=== PATIENT | male | born 1950 | race African-American/Black ===

== ENCOUNTER 2016-12-26 23:51 | Inpatient (IN) | payer MEDICARE, MEDICAID ==
[~2016-12-26] VITALS: Ht 182.9 cm; Wt 59.0 kg
[~2016-12-26 23:51] MED LIST: ACETAMINOPHEN-1 EAC1 ORAL; ACYCLOVIR800 MG ORAL; ADVAIR 250-501 EACH INH; ALBUTEROL SULF8.5 GM INH; AMBIEN10 MG ORAL; AMLODIPINE BESY10 MG ORAL; ASPIRIN BUFFER325 M1 ORAL; ASPIRIN EC325 MG ORAL; ASPIRIN EC81 MG ORAL; ASPIRIN325 MG ORAL; ASPIRIN81 M1 PO; ASPIRIN81 MG ORAL; ATORVASTATIN CA40 MG ORAL; BENICAR HCT 401 EACH ORAL; CARAFATE1 G1 ORAL; CEFEPIME-D1 GM/50 ML IVPB; COLACE100 MG ORAL; DILAUDID2 MG ORAL; DILAUDID4 MG ORAL; DOCUSATE SODIU100 MG ORAL; FEOSOL325 MG ORAL; FERROUS SULFAT325 MG ORAL; FOLIC ACID1 MG ORAL; IMDUR30 MG ORAL; IMDUR60 MG ORAL; INDOCIN25 MG ORAL; KEPPRA500 MG ORAL; LASIX20 M1 ORAL; LEVAQUIN500 MG ORAL; LEVOTHYROXINE25 MCG ORAL; LIPITOR20 MG ORAL; LIPITOR40 MG ORAL; LISINOPRIL40 MG ORAL; LYRICA25 MG ORAL; MEDROL DOSEPAK4 MG ORAL; MEDROL4 MG ORAL; METOPROLOL TART50 M1 ORAL; METOPROLOL TART50 MG ORAL; METRONIDAZOLE500 MG ORAL; MIRALAX17 G2 ORAL; MUCINEX600 MG ORAL; NORCO 5-325 TA1 EACH ORAL; NORVASC10 MG ORAL; OMEPRAZOLE20 M2 ORAL; OMEPRAZOLE20 M3 ORAL; OMEPRAZOLE40 MG ORAL; PLAVIX75 MG ORAL; PRAVASTATIN SOD20 M1 ORAL; PREDNISOLO15 MG/5 M1 ORAL; PREDNISONE10 M2 PO; PREDNISONE20 M1 PO; PREDNISONE20 MG ORAL; PROAIR HFA8.5 GM INH; PROMETHAZINE-C118 M1 ORAL; PROTONIX40 MG ORAL; RANITIDINE HCL150 MG ORAL; RESTORIL30 MG ORAL; SPIRIVA18 MCG INH; SUCRALFATE1 GM/10 ML ORAL; TRAMADOL HCL50 MG ORAL; VANCOMYCIN1 GM/2502 IVPB; ZITHROMAX500 M1 IVPB; ZOFRAN4 MG ORAL
[2016-12-27] VITALS (8 sets, daily range): BP systolic 134–159; BP diastolic 74–92
[2016-12-27 00:27] LABS: BASOPHILS % (AUTO) 3.2 % (0.0-2.0); EOSINOPHILS % (AUTO) 0.2 % (0.0-3.0); LYMPHOCYTES % (AUTO) 22.4 % (20.0-45.0); MEAN CORPUSCULAR VOLUME 88 FL (80-99); MEAN PLATELET VOLUME 7.8 FL (6.5-10.1); MONOCYTES % (AUTO) 17.9 % (1.0-10.0); NEUTROPHILS % (AUTO) 56.3 % (45.0-75.0); PLATELET COUNT 162 K/UL (150-450); RED BLOOD COUNT 3.91 M/UL (4.70-6.10); RED CELL DISTRIBUTION WIDTH 16.3 % (11.6-14.8); WHITE BLOOD COUNT 7.8 K/UL (4.8-10.8)
[2016-12-27 00:43] LABS: TROPONIN I < 0.30 ng/mL (<=0.30)
[2016-12-27] MEDS ORDERED: Ipratropium 0.02% Inh Soln 2.5ml UD HHN ONE ×2 (00:45)
[2016-12-27] MEDS ORDERED: Solu-MEDROL 125mg Inj IVP ONE (00:45)
[2016-12-27] MEDS ORDERED: Albuterol ud Inhalation HHN ONE ×2 (00:45)
[2016-12-27 00:46] LABS: ALBUMIN/GLOBULIN RATIO 1.1 (1.0-2.7); CALCIUM 8.7 mg/dL (8.6-10.2); CREATININE 2.1 mg/dL (0.7-1.2); GLOMERULAR FILTRATION RATE 38.4 mL/min (>60); POTASSIUM 4.5 mEQ/L (3.4-4.9); TOTAL PROTEIN 7.3 g/dL (6.6-8.7)
--- NOTE | 2016-12-27 01:03 | Emergency Room Report ---
History of Present Illness General Chief Complaint: Dyspnea/Respdistress Source: Patient Present Illness HPI Patient presents with complaints of cough and shortness of breath He reports waking up at [facility] In the next day he knows he was discharged Still felt short of breath and presents to the ER Symptoms ongoing for the past 3 days increased cough congestion denies any headache or visual changes denies any vomiting or diarrhea Patient has a history of COPD And has had multiple admissions for same problem Allergies: Coded Allergies: EGG (Verified Allergy, Unknown, 09/22/15) MEPERIDINE (Verified Allergy, Unknown, 12/21/10) MORPHINE (Verified Allergy, Unknown, Shortness of Breath, 01/24/14) itching,shortness of breath,dyspnea NITROGLYCERIN (Verified Allergy, Unknown, 06/21/11) Patient History Past Medical History: see triage record Pertinent Family History: none Reviewed Nursing Documentation: PMH: Agreed, PSxH: Agreed Nursing Documentation-PMH Hx Cardiac Problems: Yes - ND 2009 and ND 2010 Hx Hypertension: Yes Hx Pacemaker: No Hx Asthma: No Hx COPD: Yes Hx Diabetes: No Hx Cancer: No Hx Gastrointestinal Problems: No - GI ulcer ,Hep C Hx Dialysis: No - kidney problems Hx Neurological Problems: No Hx Cerebrovascular Accident: No Hx Transient Ischemic Attacks: No Hx Alzheimer's Disease: No Hx Encephalitis: No Hx Seizures: Yes Hx Epilepsy: No Hx Multiple Sclerosis: No Hx Cerebral Palsy: No Hx Amyotrophic Lat Sclerosis: No Hx Guillian-Enterprise Syndrome: No Hx Paralysis: No Hx Peripheral Neuropathy: No Hx Spinal Cord Injury: No Hx Head Trauma: No Hx Traumatic Brain Injury: No Hx Memory Loss: No Hx Concentration Difficulty: No Hx Speech Problem: No Hx Tremors: Yes Hx Vertigo: No Hx Dizziness: No Hx Syncope: Yes Hx Headaches: No Hx Aphasia: No Hx Dysphasia: No Hx Numbness: No Hx Weakness: Yes Hx Fatigue: No Hx Neurologic Surgery: No Hx Brain Shunt: No Review of Systems All Other Systems: negative except mentioned in HPI Physical Exam Vital Signs Date Time Temp Pulse Resp B/P Pulse Ox O2 Delivery O2 Flow Rate FiO2 12/27/16 00:02 97.7 127 24 158/78 90 Room Air Sp02 EP Interpretation: reviewed, normal General Appearance: mild distress - Appears short of breath Head: normocephalic, atraumatic Eyes: bilateral eye EOMI, bilateral eye PERRL ENT: hearing grossly normal, normal pharynx, TMs + canals normal, uvula midline Neck: full range of motion, supple, no meningismus, no bony tend Respiratory: no respiratory distress, no retraction, no accessory muscle use, wheezing - Wheezing and crackles diffusely Cardiovascular #1: normal peripheral pulses, regular rate, rhythm, no edema, no gallop, no JVD, no murmur Gastrointestinal: normal bowel sounds, non tender, soft, no mass, no organomegaly, non-distended, no guarding, no hernia, no pulsatile mass, no rebound Genitourinary: no CVA tenderness Musculoskeletal: normal inspection Neurologic: oriented x3, responsive, miner III-XII nml as tested, motor strength/ tone normal, sensory intact Psychiatric: mood/affect normal Skin: normal color, no rash, warm/dry, palpation normal Lymphatic: normal inspection, no adenopathy Procedures Critical Care Time Critical Care Time 40 minutes for initial critical presentation Respiratory distress requiring multiple re\re evaluations not including any procedural time Medical Decision Making Diagnostic Impression: Primary Impression: Dyspnea Additional Impression: Respiratory distress ER Course Patient is a fairly complex patient with multiple differential to consideration including but not limited to cardiac cardiopulmonary and vascular emergencies Patient required multiple breathing treatments in the emergency room given the severity of the presentation also was given magnesium and steroids patient has done better stabilize for telemetry admission Labs Test 12/27/16 00:00 White Blood Count 7.8 K/UL (4.8-10.8) Red Blood Count 3.91 M/UL (4.70-6.10) Hemoglobin 11.3 G/DL (14.2-18.0) Hematocrit 34.4 % (42.0-52.0) Mean Corpuscular Volume 88 FL (80-99) Mean Corpuscular Hemoglobin 29.0 PG (27.0-31.0) Mean Corpuscular Hemoglobin Concent 33.0 G/DL (32.0-36.0) Red Cell Distribution Width 16.3 % (11.6-14.8) Platelet Count 162 K/UL (150-450) Mean Platelet Volume 7.8 FL (6.5-10.1) Neutrophils (%) (Auto) 56.3 % (45.0-75.0) Lymphocytes (%) (Auto) 22.4 % (20.0-45.0) Monocytes (%) (Auto) 17.9 % (1.0-10.0) Eosinophils (%) (Auto) 0.2 % (0.0-3.0) Basophils (%) (Auto) 3.2 % (0.0-2.0) Sodium Level 136 mEQ/L (135-145) Potassium Level 4.5 mEQ/L (3.4-4.9) Chloride Level 97 mEQ/L (98-107) Carbon Dioxide Level 25 mEQ/L (20-30) Anion Gap 14 (5-15) Blood Urea Nitrogen 41 mg/dL (7-23) Creatinine 2.1 mg/dL (0.7-1.2) Estimat Glomerular Filtration Rate 38.4 mL/min (>60) Glucose Level 101 mg/dL (74-106) Lactic Acid Level 1.30 mmol/L (0.66-2.22) Calcium Level 8.7 mg/dL (8.6-10.2) Total Bilirubin 0.2 mg/dL (0.0-1.2) Aspartate Amino Transf (AST/SGOT) 23 U/L (5-40) Alanine Aminotransferase (ALT/SGPT) 15 U/L (3-41) Alkaline Phosphatase 92 U/L (40-129) Total Creatine Kinase 157 U/L (38-174) Creatine Kinase MB 8.3 ng/mL (< 6.7) Creatine Kinase MB Relative Index 5.2 Troponin I < 0.30 ng/mL (<=0.30) Pro-B-Type Natriuretic Peptide 928 pg/mL (0-125) Total Protein 7.3 g/dL (6.6-8.7) Albumin 3.9 g/dL (3.5-5.2) Globulin 3.4 g/dL Albumin/Globulin Ratio 1.1 (1.0-2.7) Lipase 15 U/L (< 60) Rhythm Strip Diag. Results EP Interpretation: yes Rate: 88 Rhythm: NSR, no PVC's, no ectopy Chest X-Ray Diagnostic Results EP Interpretation: Yes Findings: no consolidation, no effusion, no pneumothorax, no acute cardiopulmonary disease - COPD Number of Views: 1 Last Vital Signs Date Time Temp Pulse Resp B/P Pulse Ox O2 Delivery O2 Flow Rate FiO2 12/27/16 00:52 118 18 99 Room Air 12/27/16 00:03 97.7 159/74 Status: improved Disposition: ADMITTED INPATIENT Condition: Serious Referrals: CHUY VIRGEN (PCP) JUD HAHN D.O. Dec 27, 2016 01:03
[2016-12-27 01:25] LABS: CKMB 8.3 ng/mL (< 6.7)
[2016-12-27] MEDS ORDERED: ATORVASTATIN CA10 MG ORAL (02:08)
[2016-12-27] MEDS ORDERED: Ketorolac 30mg Inj IV PRN (06:45)
[2016-12-27] MEDS ORDERED: Morphine Sulfate 2mg/ml Inj IVP PRN (06:45)
[2016-12-27] MEDS ORDERED: LORazepam Inj 2mg/ml 1ml IV PRN (06:45)
[2016-12-27] MEDS ORDERED: Nitroglycerin Subl 0.4mg tab (Bottle Of 25) SL PRN (06:45)
[2016-12-27] MEDS ORDERED: HYDROmorphone 2 MG in NS 50 ML IVPB PRN (07:00)
[2016-12-27] MEDS: Levothyroxine 25mcg tab ORAL SCH (07:51)
[2016-12-27] MEDS: Zoysn 3.37gm in D5W 110ml IVPB SCH ×2 (09:00→17:21)
[2016-12-27] MEDS: Theophylline ER 100mg ORAL SCH ×2 (09:20→22:57)
[2016-12-27] MEDS: Heparin 5000 units/ml inj SUBQ SCH ×2 (09:21→22:59)
--- NOTE | 2016-12-27 10:20 | Diagnostic Imaging Report ---
Indication: SOB Technique: One view of the chest Comparison: 10/28/2016 Findings: Lungs are hyperinflated. Lungs and pleural spaces are clear. Heart size is normal. Prior CABG. No significant interim change Impression: COPD No acute process
[2016-12-27] MEDS ORDERED: NovoLOG Insulin Flexpen SUBQ SCH (11:30)
[2016-12-27] MEDS ORDERED: Solu-MEDROL 125mg Inj IV SCH (12:00)
--- NOTE | 2016-12-27 13:04 | History and Physical ---
History of Present Illness General Date patient seen: Dec 27, 2016 Time patient seen: 10:30 Reason for Hospitalization: Dyspnea/Respdistress Present Illness HPI 66 y/old male with multiple medical comorbidities, inclduign COPD, asthma, CAD, hx of SC x 2 presented with complaints of cough and shortness of breath called paramedics and they brought him to [facility] hospital Patient reported waking up at [facility] per patient , the next day he was discharged, no treatment was rendered to him and he was not feeling any better Patient was still having SOB, chest tightness and presented to [facility] for evaluation Symptoms ongoing for the past 3 days, increased cough , congestion , some wheezing, no hemoptysis, minimally productive cough denies chest pain, palpitations, dizziness denies any headache or visual changes denies any vomiting or diarrhea Allergies: Coded Allergies: EGG (Verified Allergy, Unknown, 09/22/15) MEPERIDINE (Verified Allergy, Unknown, 12/21/10) MORPHINE (Verified Allergy, Unknown, Shortness of Breath, 01/24/14) itching,shortness of breath,dyspnea NITROGLYCERIN (Verified Allergy, Unknown, 06/21/11) Medication History Scheduled Albuterol Sulfate* (Proair Hfa*), 1 PUFF INH Q6H Amlodipine Besylate* (Amlodipine Besylate*), 10 MG ORAL DAILY, (Reported) Aspirin* (Aspirin Ec*), 325 MG ORAL DAILY, (Reported) Atorvastatin Calcium* (Lipitor*), 20 MG ORAL DAILY, (Reported) Clopidogrel Bisulfate* (Plavix*), 75 MG ORAL DAILY, (Reported) Docusate Sodium* (Colace*), 100 MG ORAL TWICE A DAY, (Reported) Ferrous Sulfate* (Ferrous Sulfate*), 325 MG ORAL TWICE A DAY, (Reported) Levetiracetam (Keppra), 500 MG ORAL FOUR TIMES A DAY, (Reported) Levothyroxine Sodium* (Levothyroxine Sodium*), 25 MCG ORAL DAILY, (Reported) Metoprolol Tartrate* (Metoprolol Tartrate*), 50 MG ORAL BID, (Reported) Omeprazole (Omeprazole), 20 MG ORAL DAILY, (Reported) Prednisone (Prednisone), 30 MG PO BID, (Reported) Ranitidine Hcl* (Zantac*), 150 MG ORAL Q12HR Temazepam (Restoril*), 30 MG ORAL BEDTIME, (Reported) Scheduled PRN Acetaminophen With Codeine (T#3) (Tylenol #3 Tab*), 1 TAB ORAL Q6H PRN Hydromorphone HCl (Dilaudid), 1 MG ORAL EVERY 6 HOURS PRN Discontinued Medications Acyclovir* (Zovirax*), 800 MG ORAL FIVE TIMES A DAY Discontinued Reason: Therapy completed Atorvastatin Calcium* (Atorvastatin Calcium*), 40 MG ORAL BEDTIME Discontinued Reason: Medication dose changed Atorvastatin Calcium* (Lipitor*), 20 MG ORAL BEDTIME, (Reported) Discontinued Reason: Medication dose changed Azithromycin (Zithromax), 500 MG IVPB DAILY Discontinued Reason: Therapy completed Clopidogrel Bisulfate* (Plavix*), 75 MG ORAL DAILY, (Reported) Discontinued Reason: Medication dose changed Codeine/Promethazine Hcl* (Promethazine-Codeine Syrup*), 5 ML ORAL Q4H PRN for For Cough Discontinued Reason: Pt stopped taking med Indomethacin (Indomethacin), 25 MG ORAL THREE TIMES A DAY Discontinued Reason: Pt stopped taking med Methylprednisolone* (Medrol*), 4 MG ORAL DAILY Discontinued Reason: Pt stopped taking med Ondansetron (Zofran), 4 MG ORAL Q8H PRN for Nausea & Vomiting, (Reported) Discontinued Reason: Pt stopped taking med Pantoprazole* (Protonix*), 40 MG ORAL DAILY, (Reported) Discontinued Reason: Pt stopped taking med Polyethylene Glycol 3350* (Miralax*), 17 GM ORAL HSPRN PRN for Constipation Discontinued Reason: Pt stopped taking med Prednisone* (Prednisone*), 10 MG ORAL DAILY, (Reported) Discontinued Reason: Medication dose changed Pregabalin (Lyrica), 25 MG ORAL THREE TIMES A DAY Discontinued Reason: Pt stopped taking med Sucralfate* (Carafate*), 1 GM ORAL BIAC Discontinued Reason: Pt stopped taking med Patient History History Provided By: Patient Healthcare decision maker Resuscitation status Full Code Advanced Directive on File Past Medical/Surgical History Past Medical/Surgical History: (1) ACS (acute coronary syndrome) (2) Syncope (3) CAD (coronary artery disease) (4) Osteomyelitis of right leg (5) Intractable back pain (6) Hyperkalemia (7) Hypothyroidism (8) ATN (acute tubular necrosis) (9) HTN (hypertension) (10) COPD exacerbation (11) Nonhealing ulcer of right lower extremity (12) Gastritis (13) Shingles (14) DM (diabetes mellitus) (15) HTN (hypertension) (16) Dyspnea (17) COPD exacerbation Review of Systems Constitutional: Reports: weakness Eye: Reports: no symptoms ENT: Reports: no symptoms Respiratory: Reports: see HPI Cardiovascular: Reports: other - HTN, CAD, hx of SC x 2 , see HPI Gastrointestinal: Reports: other - gastritis Genitourinary: Reports: no symptoms Musculoskeletal: Reports: back pain Skin: Reports: other - R leg ulcer Psychiatric: Reports: no symptoms Neurological: Reports: seizure Endocrine: Reports: other - DM Hematologic/Lymphatic: Reports: anemia Physical Exam General Appearance: no apparent distress, alert Lines, tubes and drains: peripheral HEENT: normocephalic, atraumatic, anicteric, mucous membranes moist Neck: non-tender, normal alignment, supple Respiratory/Chest: no accessory muscle use, decreased breath sounds - with overall coarse BS quality Cardiovascular/Chest: normal rate, regular rhythm, no JVD Abdomen: normal bowel sounds, soft Extremities: normal range of motion, non-tender, no calf tenderness, normal capillary refill Skin Exam: warm/dry Neurologic: alert, oriented x 3, responsive Musculoskeletal: atrophy - BLE Last 24 Hour Vital Signs Date Time Temp Pulse Resp B/P Pulse Ox O2 Delivery O2 Flow Rate FiO2 12/27/16 09:20 109 146/83 12/27/16 08:15 98.5 12/27/16 08:00 97.0 109 18 146/83 96 Nasal Cannula 12/27/16 08:00 119 12/27/16 04:18 98.5 110 19 147/80 97 Nasal Cannula 12/27/16 04:00 118 12/27/16 02:49 98.7 114 20 146/76 94 Room Air 12/27/16 02:21 97.7 120 18 148/84 91 Room Air 12/27/16 02:00 97.7 120 18 148/84 91 Room Air 12/27/16 01:23 115 18 99 Room Air 12/27/16 00:52 118 18 99 Room Air 12/27/16 00:52 118 18 99 Room Air 12/27/16 00:10 123 18 90 Room Air 12/27/16 00:09 123 18 Room Air 12/27/16 00:03 125 24 Room Air 12/27/16 00:03 97.7 125 24 159/74 90 Room Air 12/27/16 00:02 97.7 127 24 158/78 90 Room Air Intake and Output 12/26/16 12/27/16 19:00 07:00 Intake Total 200 ml Balance 200 ml Intake Oral 0 ml IV Total 200 ml # Voids 2 Laboratory Tests Test 12/27/16 00:00 White Blood Count 7.8 K/UL (4.8-10.8) Red Blood Count 3.91 M/UL (4.70-6.10) L Hemoglobin 11.3 G/DL (14.2-18.0) L Hematocrit 34.4 % (42.0-52.0) L Mean Corpuscular Volume 88 FL (80-99) Mean Corpuscular Hemoglobin 29.0 PG (27.0-31.0) Mean Corpuscular Hemoglobin Concent 33.0 G/DL (32.0-36.0) Red Cell Distribution Width 16.3 % (11.6-14.8) H Platelet Count 162 K/UL (150-450) Mean Platelet Volume 7.8 FL (6.5-10.1) Neutrophils (%) (Auto) 56.3 % (45.0-75.0) Lymphocytes (%) (Auto) 22.4 % (20.0-45.0) Monocytes (%) (Auto) 17.9 % (1.0-10.0) H Eosinophils (%) (Auto) 0.2 % (0.0-3.0) Basophils (%) (Auto) 3.2 % (0.0-2.0) H Sodium Level 136 mEQ/L (135-145) Potassium Level 4.5 mEQ/L (3.4-4.9) Chloride Level 97 mEQ/L (98-107) L Carbon Dioxide Level 25 mEQ/L (20-30) Anion Gap 14 (5-15) Blood Urea Nitrogen 41 mg/dL (7-23) H Creatinine 2.1 mg/dL (0.7-1.2) H Estimat Glomerular Filtration Rate 38.4 mL/min (>60) Glucose Level 101 mg/dL (74-106) Lactic Acid Level 1.30 mmol/L (0.66-2.22) Calcium Level 8.7 mg/dL (8.6-10.2) Total Bilirubin 0.2 mg/dL (0.0-1.2) Aspartate Amino Transf (AST/SGOT) 23 U/L (5-40) Alanine Aminotransferase (ALT/SGPT) 15 U/L (3-41) Alkaline Phosphatase 92 U/L (40-129) Total Creatine Kinase 157 U/L (38-174) Creatine Kinase MB 8.3 ng/mL (< 6.7) H Creatine Kinase MB Relative Index 5.2 Troponin I < 0.30 ng/mL (<=0.30) Pro-B-Type Natriuretic Peptide 928 pg/mL (0-125) H Total Protein 7.3 g/dL (6.6-8.7) Albumin 3.9 g/dL (3.5-5.2) Globulin 3.4 g/dL Albumin/Globulin Ratio 1.1 (1.0-2.7) Lipase 15 U/L (< 60) Height (Feet): 6 Height (Inches): 0.00 Weight (Pounds): 130 Medications Current Medications Medications (Trade) Dose Ordered Sig/Aminata Route PRN Reason Start Time Stop Time Status Last Admin Dose Admin Albuterol/ Ipratropium (DuoNeb 0.5-3(2.5)mg/3ml) 3 ml Q4H PRN HHN dyspnea 12/27/16 06:45 01/01/17 06:44 Amlodipine Besylate (Norvasc) 10 mg DAILY ORAL 12/27/16 09:00 01/26/17 08:59 12/27/16 09:20 Atorvastatin Calcium (Lipitor) 20 mg BEDTIME ORAL 12/27/16 21:00 01/26/17 20:59 Clopidogrel Bisulfate (Plavix) 75 mg DAILY ORAL 12/27/16 09:00 01/26/17 08:59 12/27/16 09:20 Dextrose STAT PRN IV Hypoglycemia 12/27/16 06:45 01/26/17 06:44 Heparin Sodium (Porcine) (Heparin 5000 units/ml) 5,000 units EVERY 12 HOURS SUBQ 12/27/16 09:00 01/26/17 08:59 12/27/16 09:21 Hydromorphone HCl 2 mg/Sodium Chloride 51 ml @ 200 mls/hr EVERY 3 HOURS PRN IVPB pain 7-10 12/27/16 07:00 01/03/17 06:59 12/27/16 07:41 Ketorolac Tromethamine (Toradol 30mg) 15 mg Q6H PRN IV moderate pain 4-6 12/27/16 06:45 01/01/17 06:44 12/27/16 12:25 Levetiracetam (Keppra) 500 mg FOUR TIMES A DAY ORAL 12/27/16 09:00 01/26/17 08:59 12/27/16 12:24 Levothyroxine Sodium (Synthroid) 25 mcg ACBREAKFAST ORAL 12/27/16 06:52 01/26/17 06:51 12/27/16 07:51 Lorazepam (Ativan 2mg/ml 1ml) 0.5 mg Q4H PRN IV For Anxiety 12/27/16 06:45 01/03/17 06:44 Methylprednisolone Sodium Succinate (Solu-MEDROL) 60 mg EVERY 6 HOURS IV 12/27/16 12:00 01/26/17 11:59 12/27/16 12:24 Ondansetron HCl (Zofran) 4 mg Q6H PRN IVP Nausea & Vomiting 12/27/16 06:45 01/26/17 06:44 Piperacillin Sod/ Tazobactam Sod/ Dextrose (Zosyn/D5W) 110 ml @ 27.5 mls/hr Q8H IVPB 12/27/16 09:00 01/03/17 08:59 12/27/16 09:00 Temazepam (Restoril) 15 mg HSPRN PRN ORAL Insomnia 12/27/16 06:45 01/03/17 06:44 Theophylline (Wilfrido-Dur) 100 mg EVERY 12 HOURS ORAL 12/27/16 09:00 01/26/17 08:59 12/27/16 09:20 Assessment/Plan Assessment/Plan ASSESSMENT acute COPD exacerbation dyspnea respiratory distress COPD CAD with hx of SC x 2 HTN acute kidney injury on CRI DM hx of osteomyelitis R leg, s/p treatment seizure disorder hypothyroidism chronic back pain PLAN OF CARE O2 to keep sat above 92% pulmonary toilet IV steroids and taper as permitted sputum cx empiric abx fup with CXR initial CXR no acute cardiopulmonary disease, but c/w hyperinflation start Theophylline antitussive prn ( Phenergan with codeine ok, tolerated in the past despite allergy) continue Plavix and statin BP management with CCB and optimize as needed BS management with SS of insulin and optimize as needed seizure precautions, continue Keppra monitor renal parameters start IVF, acute component likely due to dehydration, check renal parametrs and lytes in am, renal US done in October with normal kidney echogenicity DVT, GI prophylaxis pain management bowel regimen PT/OT transfer to [facility] floor case discussed and evaluated by supervising physician Wayne (Jagdish),Kristine IZAGUIRRE Dec 27, 2016 13:04
--- NOTE | 2016-12-27 13:56 | Consultation ---
Consult Note Consult Note aske dto evaluate for renal failure- Chief Complaint: Dyspnea/Respdistress Patient presents with complaints of cough and shortness of breath He reports waking up at [facility] In the next day he knows he was discharged Still felt short of breath and presents to the ER Symptoms ongoing for the past 3 days increased cough congestion denies any headache or visual changes denies any vomiting or diarrhea Patient has a history of COPD And has had multiple admissions for same problem Allergies: EGG (Verified Allergy, Unknown, 09/22/15) MEPERIDINE (Verified Allergy, Unknown, 12/21/10) MORPHINE (Verified Allergy, Unknown, Shortness of Breath, 01/24/14) itching,shortness of breath,dyspnea NITROGLYCERIN (Verified Allergy, Unknown, 06/21/11) Hx Cardiac Problems: Yes - SD 2009 and SD 2010 Hx Hypertension: Yes Hx COPD: Yes Hx Gastrointestinal Problems: No - GI ulcer ,Hep C Hx Seizures: Yes Hx Tremors: Yes Hx Syncope: Yes Hx Weakness: Yes . Assessment/Plan status: - ATN (acute tubular necrosis), multifactorial Mainly DM and HTN - CAD with SD previously - SZ Disorder - COPD exacerbation - Hypothyroidism - Gastritis - ACS (acute coronary syndrome) - HTN (hypertension) - Nonhealing ulcer of right lower extremity - Osteomyelitis of right lower extremity Plan: Hydrate- UA and Urine studies- Avoid Nephrotoxics Taper steroids as possible- monitor renal parameters- KACEY BERNSTEIN Dec 27, 2016 13:56
[2016-12-27] MEDS ORDERED: Piperacillin/Tazobactam 2.25 GM in D5W 55 ML IV SCH (14:00)
[2016-12-27] MEDS ORDERED: Potassium Chloride 10 MEQ in NS 1000ml 1,000 ML IV SCH (15:00)
--- NOTE | 2016-12-27 16:35 | Wound Care Consultation ---
Wound Assessment Wound Assessment : Wound Present on Admission: Yes New Wound: No Status Change of Wound: No Wound Location Body Site Modif: right Wound Location Body Site: malleolus/ankle Wound Type: traumatic injury - chronic wound Rolando Test: Does not Rolando Wound Thickness: Full Thickness Wound Length: 4.0 Wound Width: 3.5 Wound Depth: 0.3 Percent of Wound [place]/Red: 100 Wound Drainage Description: Serosanguineous Wound Drainage Amount: Scant Wound Drainage Odor: None/Absent Tissue Surrounding Wound: Macerated Wound General Appearance: Reddened, Well Approximated, Draining, Bone Palpable Wound Comment #1 Right malleolus traumatic chronic wound. pt stated he fall and got injured. The wound wouldn't heal since. Recommendation -Cleanse with saline, pat dry, apply hydrogel, apply calcium alginate, cover with 4x4, wrap with kerlix daily and PRN soiled/dislodged -Keep clean and dry -Turn and reposition -Offload both heels -Optimize nutrition -Assess and f/u for any changes ASHELY TAN RN Dec 27, 2016 16:35
--- NOTE | 2016-12-27 19:26 | Consultation ---
Consult Note Assessment/Plan ID Dic # [id number] ASSESSMENT: 66 y/o male with: // COPD exacerbation / // h/o chronic non-healing lateral RLE ulcer, not grossly infected - - MRI 10/30: No evidence of acute osteomyelitis. Multiple bone infarcts. Post fracture deformity of the distal tibia and fibula. 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 TTE EF 60-65%, grade 1 diastolic dysfunction, mod pHTN, trace MR, mild TR PAD CKD DM Seizure disorder. COPD. CVA MDRO colonized No ABX allergies Full Code PLAN: - cont Levaquin d# 1 / 5 and DC Zosyn - monitor CBC, temperatures - monitor BMP - monitor CXR - monitor cx ( SP, Ur ) - wound care LOY REID M.D. Dec 27, 2016 19:26
[2016-12-27] MEDS: Atorvastatin 20mg tab ORAL SCH (22:57)
[2016-12-28] VITALS (7 sets, daily range): BP systolic 120–170; BP diastolic 74–93
--- NOTE | 2016-12-28 04:27 | Consultation ---
DATE OF CONSULTATION: INFECTIOUS DISEASE CONSULTATION CONSULTING PHYSICIAN: Reuben Reich M.D. REFERRING PHYSICIAN: Jessie Magana M.D. REASON FOR CONSULTATION: Evaluation of the patient for pneumonia secondary to exacerbation. HISTORY OF PRESENT ILLNESS: The patient is a 66-year-old male with multiple medical problems as listed below, who was admitted to this medical center due to shortness of breath. The patient has been admitted with the impression of COPD versus pneumonia. An Infectious Disease consultation has been requested for further evaluation of the patient and antibiotic management. PAST MEDICAL HISTORY: 1. History of COPD exacerbation. 2. History of chronic right lower extremity ulcer. 3. History of chronic hepatitis C. 4. History of CAD, status post CABG. 5. Peripheral artery disease. 6. CKD. 7. Diabetes. 8. Seizure disorder. 9. COPD. 10. CVA. MEDICATIONS: Solu-Medrol and Zosyn. ALLERGIES: Egg, meperidine, morphine, and nitroglycerin. FAMILY HISTORY: Noncontributory. REVIEW OF SYSTEMS: A 10-point review was done and except what is mentioned has been negative. PHYSICAL EXAMINATION: VITAL SIGNS: Temperature 97.4 degrees, blood pressure 166/92, pulse 86, and respiratory rate 18. HEENT: Mild pale conjunctivae. No icterus. NECK: No lymphadenopathy. CHEST: Coarse breathing sounds. Mild bilateral wheezes appreciable at bases of both lungs. HEART: S1 and S2. ABDOMEN: Soft. EXTREMITIES: The patient has right lateral lower extremity/ankle wound. No evidence of infection or drainage. NEUROLOGIC: Awake and alert. LABORATORY DATA: White blood cells 7.8, hemoglobin 11.3, and platelets 162,000. BUN 41 and creatinine 2.1. ALT 15, alkaline phosphatase 92, and AST 23. Chest x-ray, no acute process. ASSESSMENT: The patient is a 66-year-old male with multiple medical problems, who has been admitted to this facility due to chronic obstructive pulmonary disease exacerbation versus bronchitis. The patient also much more anxious. No evidence of infection. The patient's prior MRI has been indicative for osteomyelitis. PLAN: 1. We will change Zosyn to Levaquin for a total of five days. 2. Monitor CBC. 3. Monitor BMP. 4. Monitor chest x-ray. 5. Monitor cultures. 6. Based on the patient's clinical course and laboratories, we will do further recommendation. Thank you, Dr. Magana, for allowing me to participate in the care of this patient. I will follow the patient with you during this hospitalization. Reuben Reich M.D. DR: RIANNA JOB#: [id number] CC:
[2016-12-28] MEDS ORDERED: Solu-MEDROL 125mg Inj IV SCH (06:00)
[2016-12-28] MEDS: Levothyroxine 25mcg tab ORAL SCH (06:47)
--- NOTE | 2016-12-28 07:30 | Infectious Diseases Prog Note ---
Assessment/Plan Assessment/Plan ASSESSMENT: 66 y/o male with: // COPD exacerbation - CXR: COPD. No acute process // h/o chronic non-healing lateral RLE ulcer, not grossly infected - MRI 10/30: No evidence of acute osteomyelitis. Multiple bone infarcts. Post fracture deformity of the distal tibia and fibula. 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 TTE EF 60-65%, grade 1 diastolic dysfunction, mod pHTN, trace MR, mild TR PAD DM Seizure disorder. COPD. CVA MDRO colonized No ABX allergies Full Code PLAN: - ok to DC on PO Levaquin d# 2 / 5 from ID standpoint - f/u cultures - monitor CBC, temperatures - monitor BMP - monitor CXR - wound care Subjective Allergies: Coded Allergies: EGG (Verified Allergy, Unknown, 09/22/15) MEPERIDINE (Verified Allergy, Unknown, 12/21/10) MORPHINE (Verified Allergy, Unknown, Shortness of Breath, 01/24/14) itching,shortness of breath,dyspnea NITROGLYCERIN (Verified Allergy, Unknown, 06/21/11) Subjective remains afebrile. improved Objective Vital Signs Last 24 Hour Vital Signs Date Time Temp Pulse Resp B/P Pulse Ox O2 Delivery O2 Flow Rate FiO2 12/28/16 07:19 Nasal Cannula 2.0 12/28/16 07:19 Nasal Cannula 2.0 12/28/16 07:10 115 20 Room Air 12/28/16 07:10 Nasal Cannula 2.0 28 12/28/16 07:10 96 Nasal Cannula 2.0 28 12/28/16 04:19 98.7 99 21 120/88 99 Nasal Cannula 4.0 12/28/16 03:52 105 12/28/16 00:11 98.5 111 20 170/90 97 Nasal Cannula 4.0 12/27/16 23:41 112 12/27/16 20:00 97.4 89 20 136/92 96 Room Air 12/27/16 20:00 115 12/27/16 18:00 116 2/3/17 16:57 97.4 12/27/16 16:00 97.4 108 20 137/82 98 Nasal Cannula 2.0 12/27/16 12:00 97.4 110 18 134/76 98 Nasal Cannula 2.0 12/27/16 09:20 109 146/83 12/27/16 08:15 98.5 12/27/16 08:00 97.0 109 18 146/83 96 Nasal Cannula 12/27/16 08:00 119 Height (Feet): 6 Height (Inches): 0.00 Weight (Pounds): 130 General Appearance: no acute distress Respiratory/Chest: no respiratory distress Cardiovascular: normal rate, regular rhythm Abdomen: normal bowel sounds, soft, non tender, non distended Current Medications Medications (Trade) Dose Ordered Sig/Aminata Route PRN Reason Start Time Stop Time Status Last Admin Dose Admin Albuterol/ Ipratropium (DuoNeb 0.5-3(2.5)mg/3ml) 3 ml Q4H PRN HHN dyspnea 12/27/16 06:45 01/01/17 06:44 Amlodipine Besylate (Norvasc) 10 mg DAILY ORAL 12/27/16 09:00 01/26/17 08:59 12/27/16 09:20 Atorvastatin Calcium (Lipitor) 20 mg BEDTIME ORAL 12/27/16 21:00 01/26/17 20:59 12/27/16 22:57 Clopidogrel Bisulfate (Plavix) 75 mg DAILY ORAL 12/27/16 09:00 01/26/17 08:59 12/27/16 09:20 Dextrose (Dextrose 50%) STAT PRN IV Hypoglycemia 12/27/16 06:45 01/26/17 06:44 Heparin Sodium (Porcine) (Heparin 5000 units/ml) 5,000 units EVERY 12 HOURS SUBQ 12/27/16 09:00 01/26/17 08:59 12/27/16 22:59 Hydromorphone HCl 2 mg 2 mg Q3H PRN IVP Severe Pain (Pain Scale 7-10) 12/27/16 16:15 01/03/17 16:14 12/28/16 04:11 Levetiracetam (Keppra) 500 mg FOUR TIMES A DAY ORAL 12/27/16 09:00 01/26/17 08:59 12/27/16 22:57 Levofloxacin (Levaquin 750mg/ D5W) 150 ml @ 100 mls/hr Q48H IVPB 12/27/16 23:00 01/03/17 22:59 12/27/16 22:56 Levothyroxine Sodium (Synthroid) 25 mcg ACBREAKFAST ORAL 12/27/16 06:52 01/26/17 06:51 12/28/16 06:47 Lorazepam (Ativan 2mg/ml 1ml) 0.5 mg Q4H PRN IV For Anxiety 12/27/16 06:45 01/03/17 06:44 Methylprednisolone Sodium Succinate (Solu-MEDROL) 60 mg EVERY 8 HOURS IV 12/28/16 06:00 01/27/17 05:59 12/28/16 06:47 Ondansetron HCl (Zofran) 4 mg Q6H PRN IVP Nausea & Vomiting 12/27/16 06:45 01/26/17 06:44 Pantoprazole (Protonix) 40 mg EVERY 12 HOURS ORAL 12/27/16 21:00 01/26/17 20:59 12/27/16 22:57 Promethazine HCl/ Codeine (Phenergan with Codeine) 5 ml Q6H PRN ORAL For Cough 12/27/16 14:00 01/26/17 13:59 Temazepam (Restoril) 15 mg HSPRN PRN ORAL Insomnia 12/27/16 06:45 01/03/17 06:44 Theophylline (Wilfrido-Dur) 100 mg EVERY 12 HOURS ORAL 12/27/16 09:00 01/26/17 08:59 12/27/16 22:57 ETHAN KHAN Dec 28, 2016 07:30
[2016-12-28 08:09] LABS: BASOPHILS % (AUTO) 2.7 % (0.0-2.0); EOSINOPHILS % (AUTO) 0.2 % (0.0-3.0); LYMPHOCYTES % (AUTO) 18.9 % (20.0-45.0); MEAN CORPUSCULAR HEMOGLOBIN 27.7 PG (27.0-31.0); MEAN CORPUSCULAR VOLUME 89 FL (80-99); MEAN PLATELET VOLUME 7.4 FL (6.5-10.1); MONOCYTES % (AUTO) 12.6 % (1.0-10.0); NEUTROPHILS % (AUTO) 65.5 % (45.0-75.0); PLATELET COUNT 183 K/UL (150-450); RED BLOOD COUNT 3.64 M/UL (4.70-6.10)
[2016-12-28 08:30] LABS: CRP QUANT 1.1 mg/dL (< 0.5); MAGNESIUM 2.2 mg/dL (1.7-2.5); PHOSPHORUS 1.9 mg/dL (2.5-4.8); URIC ACID 6.1 mg/dL (3.0-7.5)
[2016-12-28 08:37] LABS: ALANINE AMINOTRANSFERASE 16 U/L (3-41); ALBUMIN/GLOBULIN RATIO 1.5 (1.0-2.7); ANION GAP 13 (5-15); ASPARTATE AMINO TRANSFERASE 22 U/L (5-40); CALCIUM 8.7 mg/dL (8.6-10.2); CARBON DIOXIDE 28 mEQ/L (20-30); CHLORIDE 94 mEQ/L (98-107); CHOLESTEROL 173 mg/dL (< 200); CHOLESTEROL/HDL RATIO 2.3 (3.3-4.4); CREATININE 1.3 mg/dL (0.7-1.2); GLOMERULAR FILTRATION RATE > 60 mL/min (>60); HEMOLYSIS 4; LDL CHOLESTEROL (CALC.) 83 mg/dL (60-99); POTASSIUM 5.1 mEQ/L (3.4-4.9); SODIUM 135 mEQ/L (135-145); TOTAL PROTEIN 6.3 g/dL (6.6-8.7)
[2016-12-28] MEDS: Theophylline ER 100mg ORAL SCH ×2 (08:40→21:12)
[2016-12-28 08:42] LABS: THYROID STIMULATING HORMONE 0.467 uIU/mL (0.300-4.500)
[2016-12-28] MEDS: Heparin 5000 units/ml inj SUBQ SCH (08:42)
[2016-12-28] MEDS: Promethazine/Codeine 5ml UD ORAL PRN (08:53)
[2016-12-28 09:18] LABS: HEMOGLOBIN A1C 5.3 % (< 6.0)
[2016-12-28] MEDS: DuoNeb 0.5-3(2.5)mg/3ml neb HHN PRN ×3 (10:48→20:00)
--- NOTE | 2016-12-28 12:43 | Pulmonology Progress Note ---
Assessment/Plan Assessment/Plan ASSESSMENT acute COPD exacerbation dyspnea respiratory distress COPD CAD with hx of LA x 2 HTN acute kidney injury on CRI 2 to dehydration dehydration hyperkalemia DM hx of osteomyelitis R leg, s/p treatment seizure disorder hypothyroidism chronic back pain PLAN OF CARE O2 to keep sat above 92% pulmonary toilet taper IV steroids sputum cx empiric abx blood cx preliminary negative fup with CXR initial CXR no acute cardiopulmonary disease, but c/w hyperinflation continue Theophylline antitussive prn ( Phenergan with codeine ok, tolerated in the past despite allergy) continue Plavix and statin BP management with CCB and optimize as needed BS management with SS of insulin and optimize as needed seizure precautions, continue Keppra monitor renal parameters on IVF, acute component likely due to dehydration, creat down to 1.3 renal US done in October with normal kidney echogenicity nephro follows dc IVF treat hyperkalemia dc Heparin GI prophylaxis pain management bowel regimen PT/OT transfer to [facility] floor case discussed and evaluated by supervising physician Subjective Allergies: Coded Allergies: EGG (Verified Allergy, Unknown, 09/22/15) MEPERIDINE (Verified Allergy, Unknown, 12/21/10) MORPHINE (Verified Allergy, Unknown, Shortness of Breath, 01/24/14) itching,shortness of breath,dyspnea NITROGLYCERIN (Verified Allergy, Unknown, 06/21/11) Subjective still with cough, congestion, chest tightness and wheezing afebrile,no leukocytosis creat with significant improvement K-5.1 reported bleeding from leg wound, x 2 dressing change Objective Last 24 Hour Vital Signs Date Time Temp Pulse Resp B/P Pulse Ox O2 Delivery O2 Flow Rate FiO2 12/28/16 11:02 110 18 98 Nasal Cannula 3.0 12/28/16 10:51 Nasal Cannula 3.0 12/28/16 10:51 Nasal Cannula 3.0 12/28/16 10:50 109 18 99 Nasal Cannula 3.0 12/28/16 08:40 111 137/83 12/28/16 08:00 97.5 111 18 137/83 100 Nasal Cannula 2.0 12/28/16 08:00 113 12/28/16 07:19 Nasal Cannula 2.0 12/28/16 07:19 Nasal Cannula 2.0 12/28/16 07:10 115 20 Room Air 12/28/16 07:10 Nasal Cannula 2.0 28 2/4/17 07:10 96 Nasal Cannula 2.0 28 12/28/16 04:19 98.7 99 21 120/88 99 Nasal Cannula 4.0 12/28/16 03:52 105 12/28/16 00:11 98.5 111 20 170/90 97 Nasal Cannula 4.0 12/27/16 23:41 112 12/27/16 20:00 97.4 89 20 136/92 96 Room Air 12/27/16 20:00 115 12/27/16 18:00 116 12/27/16 16:57 97.4 12/27/16 16:00 97.4 108 20 137/82 98 Nasal Cannula 2.0 Intake and Output 12/27/16 12/28/16 19:00 07:00 Intake Total 1121.0 ml 850 ml Output Total 860 ml 1400 ml Balance 261.0 ml -550 ml Intake Oral 860 ml 300 ml IV Total 261.0 ml 550 ml Output Urine Total 860 ml 1400 ml # Voids 5 Objective General Appearance: no apparent distress, alert Lines, tubes and drains: peripheral HEENT: normocephalic, atraumatic, anicteric, mucous membranes moist Neck: non-tender, normal alignment, supple Respiratory/Chest: no accessory muscle use, decreased breath sounds - with overall coarse BS quality Cardiovascular/Chest: normal rate, regular rhythm, no JVD Abdomen: normal bowel sounds, soft Extremities: normal range of motion, non-tender, no calf tenderness, normal capillary refill Skin Exam: warm/dry Neurologic: alert, oriented x 3, responsive Musculoskeletal: atrophy - BLE Microbiology Date/Time Source Procedure Growth Status 12/27/16 00:15 Blood Blood Culture - Preliminary NO GROWTH AFTER 24 HOURS Resulted 12/27/16 00:00 Blood Blood Culture - Preliminary NO GROWTH AFTER 24 HOURS Resulted Laboratory Tests 12/28/16 07:35: White Blood Count 9.0, Red Blood Count 3.64L, Hemoglobin 10.1L, Hematocrit 32.5L , Mean Corpuscular Volume 89, Mean Corpuscular Hemoglobin 27.7, Mean Corpuscular Hemoglobin Concent 31.0L, Red Cell Distribution Width 16.0H, Platelet Count 183, Mean Platelet Volume 7.4, Neutrophils (%) (Auto) 65.5, Lymphocytes (%) (Auto) 18.9L, Monocytes (%) (Auto) 12.6H, Eosinophils (%) (Auto ) 0.2, Basophils (%) (Auto) 2.7H, Sodium Level 135, Potassium Level 5.1H, Chloride Level 94L, Carbon Dioxide Level 28, Anion Gap 13, Blood Urea Nitrogen 29H, Creatinine 1.3H, Estimat Glomerular Filtration Rate > 60, Glucose Level 159H, Hemoglobin A1c 5.3, Uric Acid 6.1, Calcium Level 8.7, Phosphorus Level 1.9L, Magnesium Level 2.2, Total Bilirubin 0.2, Gamma Glutamyl Transpeptidase 28 , Aspartate Amino Transf (AST/SGOT) 22, Alanine Aminotransferase (ALT/SGPT) 16, Alkaline Phosphatase 82, Total Creatine Kinase 62, C-Reactive Protein, Quantitative 1.1H, Pro-B-Type Natriuretic Peptide 1395H, Total Protein 6.3L, Albumin 3.8, Globulin 2.5, Albumin/Globulin Ratio 1.5, Triglycerides Level 82, Cholesterol Level 173, LDL Cholesterol 83, HDL Cholesterol 74H, Cholesterol/HDL Ratio 2.3L, Thyroid Stimulating Hormone (TSH) 0.467 Current Medications Medications (Trade) Dose Ordered Sig/Aminata Route PRN Reason Start Time Stop Time Status Last Admin Dose Admin Albuterol/ Ipratropium (DuoNeb 0.5-3(2.5)mg/3ml) 3 ml Q4H PRN HHN dyspnea 12/27/16 06:45 01/01/17 06:44 12/28/16 10:48 Amlodipine Besylate (Norvasc) 10 mg DAILY ORAL 12/27/16 09:00 01/26/17 08:59 12/28/16 08:40 Atorvastatin Calcium (Lipitor) 20 mg BEDTIME ORAL 12/27/16 21:00 01/26/17 20:59 12/27/16 22:57 Clopidogrel Bisulfate (Plavix) 75 mg DAILY ORAL 12/27/16 09:00 01/26/17 08:59 12/28/16 08:40 Dextrose (Dextrose 50%) STAT PRN IV Hypoglycemia 12/27/16 06:45 01/26/17 06:44 Hydromorphone HCl 2 mg 2 mg Q3H PRN IVP Severe Pain (Pain Scale 7-10) 12/27/16 16:15 01/03/17 16:14 12/28/16 12:02 Levetiracetam (Keppra) 500 mg FOUR TIMES A DAY ORAL 12/27/16 09:00 01/26/17 08:59 12/28/16 08:37 Levofloxacin (Levaquin 750mg/ D5W) 150 ml @ 100 mls/hr Q48H IVPB 12/27/16 23:00 01/03/17 22:59 12/27/16 22:56 Levothyroxine Sodium (Synthroid) 25 mcg ACBREAKFAST ORAL 12/27/16 06:52 01/26/17 06:51 12/28/16 06:47 Lorazepam (Ativan 2mg/ml 1ml) 0.5 mg Q4H PRN IV For Anxiety 12/27/16 06:45 01/03/17 06:44 Methylprednisolone Sodium Succinate (Solu-MEDROL) 60 mg EVERY 8 HOURS IV 12/28/16 06:00 01/27/17 05:59 12/28/16 06:47 Ondansetron HCl (Zofran) 4 mg Q6H PRN IVP Nausea & Vomiting 12/27/16 06:45 01/26/17 06:44 Pantoprazole (Protonix) 40 mg EVERY 12 HOURS ORAL 12/27/16 21:00 01/26/17 20:59 12/28/16 08:40 Promethazine HCl/ Codeine (Phenergan with Codeine) 5 ml Q6H PRN ORAL For Cough 12/27/16 14:00 01/26/17 13:59 12/28/16 08:53 Temazepam (Restoril) 15 mg HSPRN PRN ORAL Insomnia 12/27/16 06:45 01/03/17 06:44 Theophylline (Wilfrido-Dur) 100 mg EVERY 12 HOURS ORAL 12/27/16 09:00 01/26/17 08:59 12/28/16 08:40 Kristine Black NP ([facility]) Dec 28, 2016 12:43
[2016-12-28] MEDS ORDERED: Sodium Polystyrene Sulfonate 15gm Powder ORAL ONE (13:30)
--- NOTE | 2016-12-28 14:05 | General Progress Note ---
Assessment/Plan Status: stable - from renal stand, other - breathing better Assessment/Plan - ATN (acute tubular necrosis), multifactorial Mainly DM and HTN - CAD with NE previously - SZ Disorder - COPD exacerbation - Hypothyroidism - Gastritis - ACS (acute coronary syndrome) - HTN (hypertension) - Nonhealing ulcer of right lower extremity - Osteomyelitis of right lower extremity Plan: Hydrate- Phos supplement- taper steroids- UA and Urine studies- pending Avoid Nephrotoxics monitor renal parameters- per orders- Subjective ROS Limited/Unobtainable: No Constitutional: Reports: malaise, weakness Respiratory: Reports: cough Allergies: Coded Allergies: EGG (Verified Allergy, Unknown, 09/22/15) MEPERIDINE (Verified Allergy, Unknown, 12/21/10) MORPHINE (Verified Allergy, Unknown, Shortness of Breath, 01/24/14) itching,shortness of breath,dyspnea NITROGLYCERIN (Verified Allergy, Unknown, 06/21/11) Objective Last 24 Hour Vital Signs Date Time Temp Pulse Resp B/P Pulse Ox O2 Delivery O2 Flow Rate FiO2 12/28/16 12:00 97.5 82 18 128/74 98 Nasal Cannula 2.0 12/28/16 11:02 110 18 98 Nasal Cannula 3.0 12/28/16 10:51 Nasal Cannula 3.0 12/28/16 10:51 Nasal Cannula 3.0 12/28/16 10:50 109 18 99 Nasal Cannula 3.0 12/28/16 08:40 111 137/83 12/28/16 08:00 97.5 111 18 137/83 100 Nasal Cannula 2.0 12/28/16 08:00 113 12/28/16 07:19 Nasal Cannula 2.0 12/28/16 07:19 Nasal Cannula 2.0 12/28/16 07:10 115 20 Room Air 12/28/16 07:10 Nasal Cannula 2.0 28 12/28/16 07:10 96 Nasal Cannula 2.0 28 12/28/16 04:19 98.7 99 21 120/88 99 Nasal Cannula 4.0 12/28/16 03:52 105 12/28/16 00:11 98.5 111 20 170/90 97 Nasal Cannula 4.0 12/27/16 23:41 112 12/27/16 20:00 97.4 89 20 136/92 96 Room Air 12/27/16 20:00 115 12/27/16 18:00 116 12/27/16 16:57 97.4 12/27/16 16:00 97.4 108 20 137/82 98 Nasal Cannula 2.0 Intake and Output 12/27/16 12/28/16 19:00 07:00 Intake Total 1121.0 ml 850 ml Output Total 860 ml 1400 ml Balance 261.0 ml -550 ml Intake Oral 860 ml 300 ml IV Total 261.0 ml 550 ml Output Urine Total 860 ml 1400 ml # Voids 5 Laboratory Tests 12/28/16 07:35: White Blood Count 9.0, Red Blood Count 3.64L, Hemoglobin 10.1L, Hematocrit 32.5L , Mean Corpuscular Volume 89, Mean Corpuscular Hemoglobin 27.7, Mean Corpuscular Hemoglobin Concent 31.0L, Red Cell Distribution Width 16.0H, Platelet Count 183, Mean Platelet Volume 7.4, Neutrophils (%) (Auto) 65.5, Lymphocytes (%) (Auto) 18.9L, Monocytes (%) (Auto) 12.6H, Eosinophils (%) (Auto ) 0.2, Basophils (%) (Auto) 2.7H, Sodium Level 135, Potassium Level 5.1H, Chloride Level 94L, Carbon Dioxide Level 28, Anion Gap 13, Blood Urea Nitrogen 29H, Creatinine 1.3H, Estimat Glomerular Filtration Rate > 60, Glucose Level 159H, Hemoglobin A1c 5.3, Uric Acid 6.1, Calcium Level 8.7, Phosphorus Level 1.9L, Magnesium Level 2.2, Total Bilirubin 0.2, Gamma Glutamyl Transpeptidase 28 , Aspartate Amino Transf (AST/SGOT) 22, Alanine Aminotransferase (ALT/SGPT) 16, Alkaline Phosphatase 82, Total Creatine Kinase 62, C-Reactive Protein, Quantitative 1.1H, Pro-B-Type Natriuretic Peptide 1395H, Total Protein 6.3L, Albumin 3.8, Globulin 2.5, Albumin/Globulin Ratio 1.5, Triglycerides Level 82, Cholesterol Level 173, LDL Cholesterol 83, HDL Cholesterol 74H, Cholesterol/HDL Ratio 2.3L, Thyroid Stimulating Hormone (TSH) 0.467 Height (Feet): 6 Height (Inches): 0.00 Weight (Pounds): 130 General Appearance: mild distress Cardiovascular: tachycardia Respiratory/Chest: expiratory wheezing Abdomen: soft Objective other physical exam not changed KACEY BERNSTEIN Dec 28, 2016 14:05
[2016-12-28] MEDS ORDERED: Tubing IV Secondary IV ONE (14:43)
[2016-12-28] MEDS ORDERED: NS 275ml ONE (14:43)
[2016-12-28 15:22] LABS: APPEARANCE,URINE CLEAR
[2016-12-28 15:23] LABS: KETONES,URINE NEGATIVE (NEGATIVE); PH,URINE 5 (4.5-8.0); PROTEIN,URINE 1+ (NEGATIVE)
[2016-12-28 15:24] LABS: LEUKOCYTE ESTERASE ,URINE NEGATIVE (NEGATIVE); NITRITE,URINE NEGATIVE (NEGATIVE); RBC,URINE 0 /HPF (0 - 0); UROBILINOGEN,URINE NORMAL MG/DL (0.0-1.0); WBC,URINE 0-2 /HPF (0 - 0)
[2016-12-28] MEDS ORDERED: Sodium Phosphate 30 MM in NS 275 ML IVPB ONE (16:00)
--- NOTE | 2016-12-28 18:11 | Cardiology Progress Note ---
Assessment/Plan Assessment/Plan chest pain copd exacerbation full note dicateted [id number] Objective Last 24 Hour Vital Signs Date Time Temp Pulse Resp B/P Pulse Ox O2 Delivery O2 Flow Rate FiO2 12/28/16 16:00 98.0 85 18 129/75 98 Nasal Cannula 2.0 12/28/16 15:33 97.5 12/28/16 15:20 112 18 97 Nasal Cannula 3.0 32 12/28/16 15:10 Nasal Cannula 3.0 12/28/16 15:10 112 18 96 Nasal Cannula 3.0 12/28/16 15:10 Nasal Cannula 3.0 12/28/16 12:00 97.5 82 18 128/74 98 Nasal Cannula 2.0 12/28/16 11:02 110 18 98 Nasal Cannula 3.0 12/28/16 10:51 Nasal Cannula 3.0 12/28/16 10:51 Nasal Cannula 3.0 12/28/16 10:50 109 18 99 Nasal Cannula 3.0 12/28/16 08:40 111 137/83 12/28/16 08:00 97.5 111 18 137/83 100 Nasal Cannula 2.0 12/28/16 08:00 113 12/28/16 07:19 Nasal Cannula 2.0 12/28/16 07:19 Nasal Cannula 2.0 12/28/16 07:10 115 20 Room Air 12/28/16 07:10 Nasal Cannula 2.0 28 12/28/16 07:10 96 Nasal Cannula 2.0 28 12/28/16 04:19 98.7 99 21 120/88 99 Nasal Cannula 4.0 12/28/16 03:52 105 12/28/16 00:11 98.5 111 20 170/90 97 Nasal Cannula 4.0 12/27/16 23:41 112 12/27/16 20:00 97.4 89 20 136/92 96 Room Air 12/27/16 20:00 115 Intake and Output 12/27/16 12/28/16 19:00 07:00 Intake Total 1121.0 ml 850 ml Output Total 860 ml 1400 ml Balance 261.0 ml -550 ml Intake Oral 860 ml 300 ml IV Total 261.0 ml 550 ml Output Urine Total 860 ml 1400 ml # Voids 5 Laboratory Tests Test 12/28/16 07:35 12/28/16 14:45 White Blood Count 9.0 K/UL (4.8-10.8) Red Blood Count 3.64 M/UL (4.70-6.10) L Hemoglobin 10.1 G/DL (14.2-18.0) L Hematocrit 32.5 % (42.0-52.0) L Mean Corpuscular Volume 89 FL (80-99) Mean Corpuscular Hemoglobin 27.7 PG (27.0-31.0) Mean Corpuscular Hemoglobin Concent 31.0 G/DL (32.0-36.0) L Red Cell Distribution Width 16.0 % (11.6-14.8) H Platelet Count 183 K/UL (150-450) Mean Platelet Volume 7.4 FL (6.5-10.1) Neutrophils (%) (Auto) 65.5 % (45.0-75.0) Lymphocytes (%) (Auto) 18.9 % (20.0-45.0) L Monocytes (%) (Auto) 12.6 % (1.0-10.0) H Eosinophils (%) (Auto) 0.2 % (0.0-3.0) Basophils (%) (Auto) 2.7 % (0.0-2.0) H Sodium Level 135 mEQ/L (135-145) Potassium Level 5.1 mEQ/L (3.4-4.9) H Chloride Level 94 mEQ/L (98-107) L Carbon Dioxide Level 28 mEQ/L (20-30) Anion Gap 13 (5-15) Blood Urea Nitrogen 29 mg/dL (7-23) H Creatinine 1.3 mg/dL (0.7-1.2) H Estimat Glomerular Filtration Rate > 60 mL/min (>60) Glucose Level 159 mg/dL (74-106) H Hemoglobin A1c 5.3 % (< 6.0) Uric Acid 6.1 mg/dL (3.0-7.5) Calcium Level 8.7 mg/dL (8.6-10.2) Phosphorus Level 1.9 mg/dL (2.5-4.8) L Magnesium Level 2.2 mg/dL (1.7-2.5) Total Bilirubin 0.2 mg/dL (0.0-1.2) Gamma Glutamyl Transpeptidase 28 U/L (8-61) Aspartate Amino Transf (AST/SGOT) 22 U/L (5-40) Alanine Aminotransferase (ALT/SGPT) 16 U/L (3-41) Alkaline Phosphatase 82 U/L (40-129) Total Creatine Kinase 62 U/L (38-174) C-Reactive Protein, Quantitative 1.1 mg/dL (< 0.5) H Pro-B-Type Natriuretic Peptide 1395 pg/mL (0-125) H Total Protein 6.3 g/dL (6.6-8.7) L Albumin 3.8 g/dL (3.5-5.2) Globulin 2.5 g/dL Albumin/Globulin Ratio 1.5 (1.0-2.7) Triglycerides Level 82 mg/dL (< 150) Cholesterol Level 173 mg/dL (< 200) LDL Cholesterol 83 mg/dL (60-99) HDL Cholesterol 74 mg/dL (> 60) H Cholesterol/HDL Ratio 2.3 (3.3-4.4) L Thyroid Stimulating Hormone (TSH) 0.467 uIU/mL (0.300-4.500) Urine Color Pale yellow Urine Appearance Clear Urine pH 5 (4.5-8.0) Urine Specific [place] 1.010 (1.005-1.035) Urine Protein 1+ (NEGATIVE) H Urine Glucose (UA) Negative (NEGATIVE) Urine Ketones Negative (NEGATIVE) Urine Occult Blood 1+ (NEGATIVE) H Urine Nitrite Negative (NEGATIVE) Urine Bilirubin Negative (NEGATIVE) Urine Urobilinogen Normal MG/DL (0.0-1.0) Urine Leukocyte Esterase Negative (NEGATIVE) Urine RBC 0 /HPF (0 - 0) Urine WBC 0-2 /HPF (0 - 0) Urine Squamous Epithelial Cells None /LPF (NONE/OCC) Urine Bacteria None /HPF (NONE) Urine Random Sodium 119 mmol/L Microbiology Date/Time Source Procedure Growth Status 12/27/16 00:15 Blood Blood Culture - Preliminary NO GROWTH AFTER 24 HOURS Resulted 12/27/16 00:00 Blood Blood Culture - Preliminary NO GROWTH AFTER 24 HOURS Resulted AGUSTO STARKEY Dec 28, 2016 18:11
--- NOTE | 2016-12-28 18:49 | Cardiology Report ---
APPROVED REPORT EXAM: Two-dimensional and M-mode echocardiogram with Doppler and color Doppler. INDICATION Congestive Heart Failure M-Mode DIMENSIONS IVSd.6 (0.7-1.1cm)Left Atrium (MM)2.9 (1.6-4.0cm) PWd1.1 (0.7-1.1cm) IVSs1.8 cm LVDs2.0 (2.5-4.0cm) PWs1.8 cm Technically difficult study due to poor acoustic windows. Normal left ventricular chamber size, systolic function and wall motion to the extent visulaized . Left ventricular ejection fraction estimated to be 60-65 %. Mild left ventricular hypertrophy. No evidence of pericardial effusion. All other cardiac chamber sizes are within normal limits. Mild focal aortic valve sclerosis with adequate cusp excursion. Mildly thickened mitral valve leaflets with normal excursion. Mild mitral annulus and aortic root calcification. Pulmonic valve not well visualized. Normal tricuspid valve structure. IVC dilated at 2.3cm with physiologic collapse. A color flow and spectral Doppler study was performed and revealed: No aortic regurgitation. Trace mitral regurgitation. Mitral diastolic velocities suggest reduced left ventricular relaxation (Grade I). Trace tricuspid regurgitation. Tricuspid systolic velocities suggests peak right ventricular systolic pressure of 32 mmHg. No pulmonic regurgitation present.
[2016-12-28] MEDS: Atorvastatin 20mg tab ORAL SCH (21:12)
[2016-12-29] VITALS (7 sets, daily range): BP systolic 125–145; BP diastolic 66–93
--- NOTE | 2016-12-29 03:58 | Consultation ---
DATE OF CONSULTATION: 12/28/2016 CARDIOLOGY CONSULTATION REFERRING PHYSICIAN: Jessie Magana M.D. REASON FOR REFERRAL: Chest pain. HISTORY OF PRESENT ILLNESS: This is a middle-aged male, who is known to me from prior evaluation and hospitalization. The patient has been admitted to the hospital here because of shortness of breath, coughing, and sputum production called the paramedics. They brought him to [facility]. When he woke up at [facility], he questioned why he was there. He was told that he had a seizure. Apparently, he was discharged and he presented here. He basically had the same pain that he has had mainly in the center of the chest. He has been coughing and wheezing with sputum production and he finally presented to the hospital here. The chest pains have been intermittent in nature similar to what he has had on prior occasions. PAST MEDICAL HISTORY: Positive for hospitalization back in October for COPD exacerbation, shingles on the left thigh, hyperkalemia, and renal failure. He has a prior history of coronary artery disease, myocardial infarction and stent, peripheral vascular disease, seizure disorder, hypothyroidism, hyperlipidemia, and chronic ankle nonpressure ulcer. He has a history of multiple hospitalizations for chest pains and has had bypass surgery on prior occasions recall. Nevertheless, he is allergic to multiple medications including Dilaudid, nitroglycerin, and morphine. SOCIAL HISTORY: Quit smoking cigarettes. Does not drink alcoholic beverages. He uses some cigars occasionally. REVIEW OF SYSTEMS: Gastrointestinal: He has had some nausea and vomiting. Genitourinary: Negative. Pulmonary: Positive for coughing and wheezing. Constitutional: He has no fevers. Neurologic: He has apparently seizure. PHYSICAL EXAMINATION: GENERAL: Shows to be a middle-aged gentleman, in no apparent respiratory distress. NECK: Supple. No jugular venous distention. LUNGS: There are expiratory wheezes and some inspiratory wheezes as well. CARDIAC: Regular rhythm, tachycardic. No heaves or thrills noted. ABDOMEN: Soft and nontender. Positive bowel sounds. EXTREMITIES: Right ankle is in dressing. LABORATORY AND DIAGNOSTIC DATA: White count of 9, hemoglobin of 10.1, and platelet count of 183,000. Sodium 135, potassium 5.1, chloride 94, bicarbonate 28, BUN 29, creatinine 1.3, and glucose of 159. Phosphorus is 1.9. ProBNP of 1395. Troponin less than 0.3 on several occasions over the past year. HDL of 74, LDL of 83, and TSH of 0.46. Echocardiogram preliminary report shows normal left ventricular systolic function. EKG shows sinus tachycardia at a rate of 127, this is from 12/27/2016. ASSESSMENT: 1. Chest pain, chronic recurrent, persistent. 2. Chronic obstructive pulmonary disease with exacerbation. 3. Sinus tachycardia. 4. Reported history of seizures. 5. Electrolyte abnormalities . PLAN: Dr. Magana, this patient was seen in cardiac consultation. The patient's EKG will be repeated. Troponin will be repeated in the morning. Pains appear to be atypical and similar to what he has had on prior occasions and no evidence of myonecrosis on any of these recent hospitalizations here. An echocardiogram has been performed. I will try to review the echocardiogram. EKG will be repeated. He should be continued treatment for COPD exacerbation. Further recommendations based on the results of the above testing. Dr. aMgana, thank you for allowing me to participate in the care of this patient. Sergio Anaya M.D. DR: Diomedes JOB#: [id number] CC:
[2016-12-29] MEDS: Levothyroxine 25mcg tab ORAL SCH (05:32)
[2016-12-29 06:55] LABS: BASOPHILS % (AUTO) 3.4 % (0.0-2.0); LYMPHOCYTES % (AUTO) 24.1 % (20.0-45.0); MEAN CORPUSCULAR HEMOGLOBIN 28.1 PG (27.0-31.0); MEAN CORPUSCULAR HGB CONC 31.6 G/DL (32.0-36.0); MEAN CORPUSCULAR VOLUME 89 FL (80-99); MEAN PLATELET VOLUME 6.5 FL (6.5-10.1); MONOCYTES % (AUTO) 12.9 % (1.0-10.0); NEUTROPHILS % (AUTO) 58.6 % (45.0-75.0); PLATELET COUNT 227 K/UL (150-450); RED BLOOD COUNT 3.47 M/UL (4.70-6.10); RED CELL DISTRIBUTION WIDTH 16.4 % (11.6-14.8); WHITE BLOOD COUNT 12.2 K/UL (4.8-10.8)
[2016-12-29 07:52] LABS: TROPONIN I < 0.30 ng/mL (<=0.30)
[2016-12-29 07:53] LABS: ALANINE AMINOTRANSFERASE 17 U/L (3-41); ALBUMIN/GLOBULIN RATIO 1.2 (1.0-2.7); ANION GAP 16 (5-15); ASPARTATE AMINO TRANSFERASE 21 U/L (5-40); CALCIUM 8.1 mg/dL (8.6-10.2); CARBON DIOXIDE 28 mEQ/L (20-30); CHLORIDE 94 mEQ/L (98-107); CREATININE 1.3 mg/dL (0.7-1.2); CRP QUANT 0.6 mg/dL (< 0.5); GLOMERULAR FILTRATION RATE > 60 mL/min (>60); HEMOLYSIS 7; MAGNESIUM 1.8 mg/dL (1.7-2.5); PHOSPHORUS 2.5 mg/dL (2.5-4.8); POTASSIUM 3.8 mEQ/L (3.4-4.9); SODIUM 138 mEQ/L (135-145); TOTAL PROTEIN 6.2 g/dL (6.6-8.7); URIC ACID 6.7 mg/dL (3.0-7.5)
[2016-12-29] MEDS: Promethazine/Codeine 5ml UD ORAL PRN ×3 (08:09→21:11)
[2016-12-29] MEDS: Theophylline ER 100mg ORAL SCH ×2 (08:10→21:11)
--- NOTE | 2016-12-29 08:44 | Pulmonology Progress Note ---
Assessment/Plan Assessment/Plan ASSESSMENT acute COPD exacerbation dyspnea respiratory distress COPD CAD with hx of [place] x 2 HTN acute kidney injury on CRI 2 to dehydration dehydration hyperkalemia DM hx of osteomyelitis R leg, s/p treatment seizure disorder hypothyroidism chronic back pain PLAN OF CARE O2 to keep sat above 92% pulmonary toilet Jwit HHN and add CPT taper IV steroids to daily in am sputum cx pending, blood cx preliminary negative empiric abx fup with CXR in am mild leukocytosis likely 2 to steroids, reactive, no fever initial CXR no acute cardiopulmonary disease, but c/w hyperinflation continue Theophylline antitussive prn ( Phenergan with codeine ok, tolerated in the past despite allergy) continue Plavix and statin BP management with CCB and optimize as needed BS management with SS of insulin and optimize as needed seizure precautions, continue Keppra monitor renal parameters s/p IVF ,acute component likely due to dehydration, creat down to 1.3 renal US done in October with normal kidney echogenicity nephro follows P and K stable after treatment off Heparin due to bleeding from the wound 12/28, bleeding stopped GI prophylaxis pain management bowel regimen PT/OT transfer to [facility] floor case discussed and evaluated by supervising physician Subjective Allergies: Coded Allergies: EGG (Verified Allergy, Unknown, 09/22/15) MEPERIDINE (Verified Allergy, Unknown, 12/21/10) MORPHINE (Verified Allergy, Unknown, Shortness of Breath, 01/24/14) itching,shortness of breath,dyspnea NITROGLYCERIN (Verified Allergy, Unknown, 06/21/11) Subjective still with cough, congestion, less wheezing and chest tightness afebrile,mild leukocytosis reported bleeding from leg wound, x 2 dressing change 12/28 ,heparin stopped Objective Last 24 Hour Vital Signs Date Time Temp Pulse Resp B/P Pulse Ox O2 Delivery O2 Flow Rate FiO2 12/29/16 08:10 114 145/74 12/29/16 04:12 97.9 12/29/16 04:00 97.9 117 17 138/81 98 Nasal Cannula 2.0 12/29/16 03:42 117 12/29/16 02:54 Nasal Cannula 12/29/16 02:54 Nasal Cannula 12/29/16 00:00 97.9 115 19 145/93 98 Nasal Cannula 2.0 12/28/16 23:51 125 12/28/16 22:54 Nasal Cannula 12/28/16 22:54 Nasal Cannula 12/28/16 22:00 97.9 110 19 150/93 98 Nasal Cannula 2.0 12/28/16 21:12 170/83 12/28/16 20:00 97.7 112 18 170/83 98 Nasal Cannula 2.0 12/28/16 20:00 118 12/28/16 19:35 117 16 99 Room Air 12/28/16 19:25 115 16 96 Room Air 12/28/16 19:25 Room Air 12/28/16 19:25 Room Air 12/28/16 19:25 115 16 Room Air 12/28/16 19:25 96 Room Air 12/28/16 19:25 Room Air 12/28/16 16:00 98.0 85 18 129/75 98 Nasal Cannula 2.0 12/28/16 16:00 127 12/28/16 15:20 112 18 97 Nasal Cannula 3.0 32 12/28/16 15:10 Nasal Cannula 3.0 12/28/16 15:10 112 18 96 Nasal Cannula 3.0 12/28/16 15:10 Nasal Cannula 3.0 12/28/16 12:00 97.5 82 18 128/74 98 Nasal Cannula 2.0 12/28/16 11:02 110 18 98 Nasal Cannula 3.0 12/28/16 10:51 Nasal Cannula 3.0 12/28/16 10:51 Nasal Cannula 3.0 12/28/16 10:50 109 18 99 Nasal Cannula 3.0 12/28/16 08:40 111 137/83 Intake and Output 12/28/16 12/29/16 19:00 07:00 Intake Total 1002.5 ml 1142.5 ml Output Total 1400 ml 1600 ml Balance -397.5 ml -457.5 ml Intake Oral 860 ml 1000 ml IV Total 142.5 ml 142.5 ml Output Urine Total 1400 ml 1600 ml # Voids 3 3 # Bowel Movements 1 Objective General Appearance: no apparent distress, alert Lines, tubes and drains: peripheral HEENT: normocephalic, atraumatic, anicteric, mucous membranes moist Neck: non-tender, normal alignment, supple Respiratory/Chest: no accessory muscle use, overall coarse BS quality, few isolated expiratory wheezes Cardiovascular/Chest: normal rate, regular rhythm, no JVD Abdomen: normal bowel sounds, soft Extremities: normal range of motion, non-tender, no calf tenderness, normal capillary refill Skin Exam: warm/dry Neurologic: alert, oriented x 3, responsive Musculoskeletal: atrophy - BLE Microbiology Date/Time Source Procedure Growth Status 12/27/16 00:15 Blood Blood Culture - Preliminary NO GROWTH AFTER 24 HOURS Resulted 12/27/16 00:00 Blood Blood Culture - Preliminary NO GROWTH AFTER 24 HOURS Resulted 12/28/16 14:45 Sputum Gram Stain - Final Resulted 12/28/16 14:45 Sputum Sputum Culture Pending Resulted Laboratory Tests 12/28/16 14:45: Urine Color Pale yellow, Urine Appearance Clear, Urine pH 5, Urine Specific [place] 1.010, Urine Protein 1+H, Urine Glucose (UA) Negative, Urine Ketones Negative, Urine Occult Blood 1+H, Urine Nitrite Negative, Urine Bilirubin Negative, Urine Urobilinogen Normal, Urine Leukocyte Esterase Negative, Urine RBC 0, Urine WBC 0-2, Urine Squamous Epithelial Cells None, Urine Bacteria None , Urine Random Sodium 119 12/29/16 05:00: Urine Eosinophils [Pending] 12/29/16 05:50: White Blood Count 12.2H, Red Blood Count 3.47L, Hemoglobin 9.7L, Hematocrit 30.8L, Mean Corpuscular Volume 89, Mean Corpuscular Hemoglobin 28.1, Mean Corpuscular Hemoglobin Concent 31.6L, Red Cell Distribution Width 16.4H, Platelet Count 227, Mean Platelet Volume 6.5, Neutrophils (%) (Auto) 58.6, Lymphocytes (%) (Auto) 24.1, Monocytes (%) (Auto) 12.9H, Eosinophils (%) (Auto) 1.0, Basophils (%) (Auto) 3.4H, Sodium Level 138, Potassium Level 3.8, Chloride Level 94L, Carbon Dioxide Level 28, Anion Gap 16H, Blood Urea Nitrogen 25H, Creatinine 1.3H, Estimat Glomerular Filtration Rate > 60, Glucose Level 138H, Uric Acid 6.7, Calcium Level 8.1L, Phosphorus Level 2.5, Magnesium Level 1.8, Total Bilirubin < 0.2, Aspartate Amino Transf (AST/SGOT) 21, Alanine Aminotransferase (ALT/SGPT) 17, Alkaline Phosphatase 84, Troponin I < 0.30, C- Reactive Protein, Quantitative 0.6H, Pro-B-Type Natriuretic Peptide 746H, Total Protein 6.2L, Albumin 3.5, Globulin 2.7, Albumin/Globulin Ratio 1.2 Current Medications Medications (Trade) Dose Ordered Sig/Aminata Route PRN Reason Start Time Stop Time Status Last Admin Dose Admin Albuterol/ Ipratropium (DuoNeb 0.5-3(2.5)mg/3ml) 3 ml Q4H PRN HHN dyspnea 12/27/16 06:45 01/01/17 06:44 12/28/16 20:00 Amlodipine Besylate (Norvasc) 10 mg DAILY ORAL 12/27/16 09:00 01/26/17 08:59 12/29/16 08:10 Atorvastatin Calcium (Lipitor) 20 mg BEDTIME ORAL 12/27/16 21:00 01/26/17 20:59 12/28/16 21:12 Clonidine HCl (Catapres) 0.1 mg Q4H PRN ORAL SBP>160 12/28/16 21:00 01/27/17 20:59 12/28/16 21:12 Clopidogrel Bisulfate (Plavix) 75 mg DAILY ORAL 12/27/16 09:00 01/26/17 08:59 12/29/16 08:10 Dextrose (Dextrose 50%) STAT PRN IV Hypoglycemia 12/27/16 06:45 01/26/17 06:44 Hydromorphone HCl 2 mg 2 mg Q3H PRN IVP Severe Pain (Pain Scale 7-10) 12/27/16 16:15 01/03/17 16:14 12/29/16 08:09 Levetiracetam (Keppra) 500 mg FOUR TIMES A DAY ORAL 12/27/16 09:00 01/26/17 08:59 12/29/16 08:10 Levofloxacin (Levaquin 750mg/ D5W) 150 ml @ 100 mls/hr Q48H IVPB 12/27/16 23:00 01/03/17 22:59 12/27/16 22:56 Levothyroxine Sodium (Synthroid) 25 mcg ACBREAKFAST ORAL 12/27/16 06:52 01/26/17 06:51 12/29/16 05:32 Lorazepam (Ativan 2mg/ml 1ml) 0.5 mg Q4H PRN IV For Anxiety 12/27/16 06:45 01/03/17 06:44 Methylprednisolone Sodium Succinate (Solu-MEDROL) 60 mg Q12HR IV 12/29/16 09:00 01/28/17 08:59 12/29/16 08:09 Ondansetron HCl (Zofran) 4 mg Q6H PRN IVP Nausea & Vomiting 12/27/16 06:45 01/26/17 06:44 Pantoprazole (Protonix) 40 mg EVERY 12 HOURS ORAL 12/27/16 21:00 01/26/17 20:59 12/29/16 08:09 Promethazine HCl/ Codeine (Phenergan with Codeine) 5 ml Q6H PRN ORAL For Cough 12/27/16 14:00 01/26/17 13:59 12/29/16 08:09 Temazepam (Restoril) 15 mg HSPRN PRN ORAL Insomnia 12/27/16 06:45 01/03/17 06:44 Theophylline (Wilfrido-Dur) 100 mg EVERY 12 HOURS ORAL 12/27/16 09:00 01/26/17 08:59 12/29/16 08:10 [facility]Cap[facility] CenterKristine Arroyo NP Dec 29, 2016 08:44
[2016-12-29] MEDS ORDERED: Solu-MEDROL 125mg Inj IV SCH ×2 (09:00)
[2016-12-29] MEDS ORDERED: Tubing IV Secondary IV ONE (09:39)
[2016-12-29] MEDS: DuoNeb 0.5-3(2.5)mg/3ml neb HHN PRN (09:59)
[2016-12-29] MEDS ORDERED: LORazepam Inj 2mg/ml 1ml IV PRN (11:30)
--- NOTE | 2016-12-29 11:33 | General Progress Note ---
Assessment/Plan Status: stable Assessment/Plan - ATN (acute tubular necrosis), multifactorial Mainly DM and HTN improved - CAD with SD previously - SZ Disorder - COPD exacerbation - Hypothyroidism - Gastritis - ACS (acute coronary syndrome) - HTN (hypertension) - Nonhealing ulcer of right lower extremity - Osteomyelitis of right lower extremity Plan: Hydrate- Phos supplement- as needed taper steroids- UA and Urine studies- pending Avoid Nephrotoxics monitor renal parameters- per orders- Subjective ROS Limited/Unobtainable: No Respiratory: Reports: other - comfortable at rest Allergies: Coded Allergies: EGG (Verified Allergy, Unknown, 09/22/15) MEPERIDINE (Verified Allergy, Unknown, 12/21/10) MORPHINE (Verified Allergy, Unknown, Shortness of Breath, 01/24/14) itching,shortness of breath,dyspnea NITROGLYCERIN (Verified Allergy, Unknown, 06/21/11) Objective Last 24 Hour Vital Signs Date Time Temp Pulse Resp B/P Pulse Ox O2 Delivery O2 Flow Rate FiO2 12/29/16 10:10 123 20 98 Nasal Cannula 2.0 28 12/29/16 09:59 28 12/29/16 09:59 120 18 97 Nasal Cannula 2.0 28 12/29/16 09:00 97.8 114 18 145/74 95 Nasal Cannula 2.0 12/29/16 08:10 114 145/74 12/29/16 08:00 139 12/29/16 07:00 123 18 97 Nasal Cannula 2.0 28 12/29/16 07:00 97 Nasal Cannula 2.0 28 12/29/16 07:00 123 18 97 Nasal Cannula 2.0 28 12/29/16 07:00 125 19 Nasal Cannula 2.0 28 12/29/16 07:00 Nasal Cannula 2.0 28 12/29/16 04:12 97.9 12/29/16 04:00 97.9 117 17 138/81 98 Nasal Cannula 2.0 12/29/16 03:42 117 12/29/16 02:54 Nasal Cannula 12/29/16 02:54 Nasal Cannula 12/29/16 00:00 97.9 115 19 145/93 98 Nasal Cannula 2.0 12/28/16 23:51 125 12/28/16 22:54 Nasal Cannula 12/28/16 22:54 Nasal Cannula 12/28/16 22:00 97.9 110 19 150/93 98 Nasal Cannula 2.0 12/28/16 21:12 170/83 12/28/16 20:00 97.7 112 18 170/83 98 Nasal Cannula 2.0 12/28/16 20:00 118 12/28/16 19:35 117 16 99 Room Air 12/28/16 19:25 115 16 96 Room Air 12/28/16 19:25 Room Air 12/28/16 19:25 Room Air 12/28/16 19:25 115 16 Room Air 12/28/16 19:25 96 Room Air 12/28/16 19:25 Room Air 12/28/16 16:00 98.0 85 18 129/75 98 Nasal Cannula 2.0 12/28/16 16:00 127 12/28/16 15:20 112 18 97 Nasal Cannula 3.0 32 12/28/16 15:10 Nasal Cannula 3.0 12/28/16 15:10 112 18 96 Nasal Cannula 3.0 12/28/16 15:10 Nasal Cannula 3.0 12/28/16 12:00 97.5 82 18 128/74 98 Nasal Cannula 2.0 Intake and Output 12/28/16 12/29/16 19:00 07:00 Intake Total 1002.5 ml 1142.5 ml Output Total 1400 ml 1600 ml Balance -397.5 ml -457.5 ml Intake Oral 860 ml 1000 ml IV Total 142.5 ml 142.5 ml Output Urine Total 1400 ml 1600 ml # Voids 3 3 # Bowel Movements 1 Laboratory Tests 12/28/16 14:45: Urine Color Pale yellow, Urine Appearance Clear, Urine pH 5, Urine Specific [place] 1.010, Urine Protein 1+H, Urine Glucose (UA) Negative, Urine Ketones Negative, Urine Occult Blood 1+H, Urine Nitrite Negative, Urine Bilirubin Negative, Urine Urobilinogen Normal, Urine Leukocyte Esterase Negative, Urine RBC 0, Urine WBC 0-2, Urine Squamous Epithelial Cells None, Urine Bacteria None , Urine Random Sodium 119 12/29/16 05:00: Urine Eosinophils None seen 12/29/16 05:50: White Blood Count 12.2H, Red Blood Count 3.47L, Hemoglobin 9.7L, Hematocrit 30.8L, Mean Corpuscular Volume 89, Mean Corpuscular Hemoglobin 28.1, Mean Corpuscular Hemoglobin Concent 31.6L, Red Cell Distribution Width 16.4H, Platelet Count 227, Mean Platelet Volume 6.5, Neutrophils (%) (Auto) 58.6, Lymphocytes (%) (Auto) 24.1, Monocytes (%) (Auto) 12.9H, Eosinophils (%) (Auto) 1.0, Basophils (%) (Auto) 3.4H, Sodium Level 138, Potassium Level 3.8, Chloride Level 94L, Carbon Dioxide Level 28, Anion Gap 16H, Blood Urea Nitrogen 25H, Creatinine 1.3H, Estimat Glomerular Filtration Rate > 60, Glucose Level 138H, Uric Acid 6.7, Calcium Level 8.1L, Phosphorus Level 2.5, Magnesium Level 1.8, Total Bilirubin < 0.2, Aspartate Amino Transf (AST/SGOT) 21, Alanine Aminotransferase (ALT/SGPT) 17, Alkaline Phosphatase 84, Troponin I < 0.30, C- Reactive Protein, Quantitative 0.6H, Pro-B-Type Natriuretic Peptide 746H, Total Protein 6.2L, Albumin 3.5, Globulin 2.7, Albumin/Globulin Ratio 1.2 Height (Feet): 6 Height (Inches): 0.00 Weight (Pounds): 130 General Appearance: no apparent distress, other - breathing much improved Objective other physical exam not changed KACEY BERNSTEIN Dec 29, 2016 11:33
[2016-12-29] MEDS ORDERED: DuoNeb 0.5-3(2.5)mg/3ml neb HHN PRN (14:00)
--- NOTE | 2016-12-29 16:27 | Cardiology Report ---
APPROVED REPORT EKG Measurement Heart [id number] ID [id number] Sinus tachycardia Right atrial enlargement Minimal voltage criteria for LVH, may be normal variant Borderline ECG
--- NOTE | 2016-12-29 18:09 | Infectious Diseases Prog Note ---
Assessment/Plan Assessment/Plan ASSESSMENT: 66 y/o male with: // COPD exacerbation - CXR: COPD. No acute process // h/o chronic non-healing lateral RLE ulcer, not grossly infected - MRI 10/30: No evidence of acute osteomyelitis. Multiple bone infarcts. Post fracture deformity of the distal tibia and fibula. 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 TTE EF 60-65%, grade 1 diastolic dysfunction, mod pHTN, trace MR, mild TR PAD DM Seizure disorder. COPD. CVA MDRO colonized No ABX allergies Full Code PLAN: - ok to DC on PO Levaquin d# 3 / 5 from ID standpoint - taper steroids per pulm - f/u cultures - monitor CBC, temperatures - monitor BMP - monitor CXR - wound care Subjective Allergies: Coded Allergies: EGG (Verified Allergy, Unknown, 09/22/15) MEPERIDINE (Verified Allergy, Unknown, 12/21/10) MORPHINE (Verified Allergy, Unknown, Shortness of Breath, 01/24/14) itching,shortness of breath,dyspnea NITROGLYCERIN (Verified Allergy, Unknown, 06/21/11) Subjective remains afebrile. improved Objective Vital Signs Last 24 Hour Vital Signs Date Time Temp Pulse Resp B/P Pulse Ox O2 Delivery O2 Flow Rate FiO2 12/29/16 16:00 97.7 100 20 133/75 98 Room Air 12/29/16 15:00 118 16 100 Nasal Cannula 2.0 28 12/29/16 15:00 118 16 100 Nasal Cannula 2.0 28 12/29/16 13:39 120 18 100 Nasal Cannula 2.0 28 12/29/16 13:39 120 20 100 Nasal Cannula 2.0 28 12/29/16 11:55 97.7 112 20 144/80 100 Nasal Cannula 12/29/16 10:10 123 20 98 Nasal Cannula 2.0 28 12/29/16 09:59 28 12/29/16 09:59 120 18 97 Nasal Cannula 2.0 28 12/29/16 09:00 97.8 114 18 145/74 95 Nasal Cannula 2.0 12/29/16 08:10 114 145/74 12/29/16 08:00 139 12/29/16 07:00 123 18 97 Nasal Cannula 2.0 28 12/29/16 07:00 97 Nasal Cannula 2.0 28 12/29/16 07:00 123 18 97 Nasal Cannula 2.0 28 12/29/16 07:00 125 19 Nasal Cannula 2.0 28 12/29/16 07:00 Nasal Cannula 2.0 28 12/29/16 04:12 97.9 12/29/16 04:00 97.9 117 17 138/81 98 Nasal Cannula 2.0 12/29/16 03:42 117 12/29/16 02:54 Nasal Cannula 12/29/16 02:54 Nasal Cannula 12/29/16 00:00 97.9 115 19 145/93 98 Nasal Cannula 2.0 12/28/16 23:51 125 12/28/16 22:54 Nasal Cannula 12/28/16 22:54 Nasal Cannula 12/28/16 22:00 97.9 110 19 150/93 98 Nasal Cannula 2.0 12/28/16 21:12 170/83 12/28/16 20:00 97.7 112 18 170/83 98 Nasal Cannula 2.0 12/28/16 20:00 118 12/28/16 19:35 117 16 99 Room Air 12/28/16 19:25 115 16 96 Room Air 12/28/16 19:25 Room Air 12/28/16 19:25 Room Air 12/28/16 19:25 115 16 Room Air 12/28/16 19:25 96 Room Air 12/28/16 19:25 Room Air Height (Feet): 6 Height (Inches): 0.00 Weight (Pounds): 130 General Appearance: no acute distress Respiratory/Chest: no respiratory distress Cardiovascular: normal rate, regular rhythm Abdomen: normal bowel sounds, soft, non tender, non distended Microbiology Date/Time Source Procedure Growth Status 12/27/16 00:15 Blood Blood Culture - Preliminary NO GROWTH AFTER 48 HOURS Resulted 12/27/16 00:00 Blood Blood Culture - Preliminary NO GROWTH AFTER 48 HOURS Resulted 12/28/16 14:45 Sputum Gram Stain - Final Resulted 12/28/16 14:45 Sputum Sputum Culture Pending Resulted Laboratory Tests Test 12/29/16 05:00 12/29/16 05:50 Urine Eosinophils None seen White Blood Count 12.2 K/UL (4.8-10.8) H Red Blood Count 3.47 M/UL (4.70-6.10) L Hemoglobin 9.7 G/DL (14.2-18.0) L Hematocrit 30.8 % (42.0-52.0) L Mean Corpuscular Volume 89 FL (80-99) Mean Corpuscular Hemoglobin 28.1 PG (27.0-31.0) Mean Corpuscular Hemoglobin Concent 31.6 G/DL (32.0-36.0) L Red Cell Distribution Width 16.4 % (11.6-14.8) H Platelet Count 227 K/UL (150-450) Mean Platelet Volume 6.5 FL (6.5-10.1) Neutrophils (%) (Auto) 58.6 % (45.0-75.0) Lymphocytes (%) (Auto) 24.1 % (20.0-45.0) Monocytes (%) (Auto) 12.9 % (1.0-10.0) H Eosinophils (%) (Auto) 1.0 % (0.0-3.0) Basophils (%) (Auto) 3.4 % (0.0-2.0) H Sodium Level 138 mEQ/L (135-145) Potassium Level 3.8 mEQ/L (3.4-4.9) Chloride Level 94 mEQ/L (98-107) L Carbon Dioxide Level 28 mEQ/L (20-30) Anion Gap 16 (5-15) H Blood Urea Nitrogen 25 mg/dL (7-23) H Creatinine 1.3 mg/dL (0.7-1.2) H Estimat Glomerular Filtration Rate > 60 mL/min (>60) Glucose Level 138 mg/dL (74-106) H Uric Acid 6.7 mg/dL (3.0-7.5) Calcium Level 8.1 mg/dL (8.6-10.2) L Phosphorus Level 2.5 mg/dL (2.5-4.8) Magnesium Level 1.8 mg/dL (1.7-2.5) Total Bilirubin < 0.2 mg/dL (0.0-1.2) Aspartate Amino Transf (AST/SGOT) 21 U/L (5-40) Alanine Aminotransferase (ALT/SGPT) 17 U/L (3-41) Alkaline Phosphatase 84 U/L (40-129) Troponin I < 0.30 ng/mL (<=0.30) C-Reactive Protein, Quantitative 0.6 mg/dL (< 0.5) H Pro-B-Type Natriuretic Peptide 746 pg/mL (0-125) H Total Protein 6.2 g/dL (6.6-8.7) L Albumin 3.5 g/dL (3.5-5.2) Globulin 2.7 g/dL Albumin/Globulin Ratio 1.2 (1.0-2.7) Current Medications Medications (Trade) Dose Ordered Sig/Aminata Route PRN Reason Start Time Stop Time Status Last Admin Dose Admin Albuterol/ Ipratropium (DuoNeb 0.5-3(2.5)mg/3ml) 3 ml Q4H PRN HHN dyspnea 12/29/16 14:00 01/03/17 13:59 Amlodipine Besylate (Norvasc) 10 mg DAILY ORAL 12/30/16 09:00 01/29/17 08:59 Atorvastatin Calcium (Lipitor) 20 mg BEDTIME ORAL 12/29/16 21:00 01/28/17 20:59 Clonidine HCl (Catapres) 0.1 mg Q4H PRN ORAL SBP>160 12/29/16 11:30 01/28/17 11:29 Clopidogrel Bisulfate (Plavix) 75 mg DAILY ORAL 12/30/16 09:00 01/29/17 08:59 Dextrose (Dextrose 50%) STAT PRN IV Hypoglycemia 12/29/16 11:30 01/28/17 11:29 Hydromorphone HCl (Dilaudid) 2 mg Q3H PRN IVP Severe Pain (Pain Scale 7-10) 12/29/16 11:00 01/05/17 10:59 12/29/16 18:02 Levetiracetam (Keppra) 500 mg FOUR TIMES A DAY ORAL 12/29/16 13:00 01/28/17 12:59 12/29/16 18:02 Levofloxacin (Levaquin 750mg/ D5W) 150 ml @ 100 mls/hr Q48H IVPB 12/29/16 23:00 01/05/17 22:59 Levothyroxine Sodium (Synthroid) 25 mcg ACBREAKFAST ORAL 12/30/16 06:30 01/29/17 06:29 Lorazepam (Ativan 2mg/ml 1ml) 0.5 mg Q4H PRN IV For Anxiety 12/29/16 11:30 01/05/17 11:29 Methylprednisolone Sodium Succinate (Solu-MEDROL) 60 mg DAILY IV 12/30/16 09:00 01/29/17 08:59 Ondansetron HCl (Zofran) 4 mg Q6H PRN IVP Nausea & Vomiting 12/29/16 11:30 01/28/17 11:29 Pantoprazole (Protonix) 40 mg EVERY 12 HOURS ORAL 12/29/16 21:00 01/28/17 20:59 Promethazine HCl/ Codeine (Phenergan with Codeine) 5 ml Q6H PRN ORAL For Cough 12/29/16 14:00 01/28/17 13:59 12/29/16 14:01 Temazepam (Restoril) 15 mg HSPRN PRN ORAL Insomnia 12/29/16 11:30 01/05/17 11:29 Theophylline (Wilfrido-Dur) 100 mg EVERY 12 HOURS ORAL 12/29/16 21:00 01/28/17 20:59 ETHAN KHAN Dec 29, 2016 18:09
[2016-12-29] MEDS: Atorvastatin 20mg tab ORAL SCH (21:11)
[2016-12-29] MEDS: DuoNeb 0.5-3(2.5)mg/3ml neb HHN SCH (22:00)
[2016-12-30] VITALS: BP 151/78
[2016-12-30] MEDS: DuoNeb 0.5-3(2.5)mg/3ml neb HHN SCH ×6 (02:56→22:36)
[2016-12-30 04:00] VITALS: BP 134/57
[2016-12-30] MEDS: Levothyroxine 25mcg tab ORAL SCH (06:17)
[2016-12-30 07:08] LABS: BASOPHILS % (AUTO) 2.2 % (0.0-2.0); EOSINOPHILS % (AUTO) 0.7 % (0.0-3.0); LYMPHOCYTES % (AUTO) 20.7 % (20.0-45.0); MEAN CORPUSCULAR HEMOGLOBIN 28.2 PG (27.0-31.0); MEAN CORPUSCULAR HGB CONC 31.4 G/DL (32.0-36.0); MEAN CORPUSCULAR VOLUME 90 FL (80-99); MEAN PLATELET VOLUME 6.6 FL (6.5-10.1); NEUTROPHILS % (AUTO) 59.5 % (45.0-75.0); PLATELET COUNT 250 K/UL (150-450); RED BLOOD COUNT 3.51 M/UL (4.70-6.10); RED CELL DISTRIBUTION WIDTH 16.9 % (11.6-14.8); WHITE BLOOD COUNT 12.9 K/UL (4.8-10.8)
[2016-12-30 07:15] LABS: ANION GAP 15 (5-15); CALCIUM 8.4 mg/dL (8.6-10.2); CARBON DIOXIDE 30 mEQ/L (20-30); CHLORIDE 96 mEQ/L (98-107); CREATININE 1.4 mg/dL (0.7-1.2); GLOMERULAR FILTRATION RATE > 60 mL/min (>60); HEMOLYSIS 5; POTASSIUM 3.5 mEQ/L (3.4-4.9); SODIUM 141 mEQ/L (135-145)
[2016-12-30 07:19] LABS: ALANINE AMINOTRANSFERASE 15 U/L (3-41); ASPARTATE AMINO TRANSFERASE 17 U/L (5-40); BILIRUBIN,DIRECT 0.1 mg/dL (0.1-0.3); HEMOLYSIS 6; MAGNESIUM 1.8 mg/dL (1.7-2.5); PHOSPHORUS 1.9 mg/dL (2.5-4.8); TOTAL PROTEIN 6.2 g/dL (6.6-8.7)
[2016-12-30 08:24] VITALS: BP 155/79
[2016-12-30] MEDS: Solu-MEDROL 125mg Inj IV SCH (09:07)
[2016-12-30] MEDS: Promethazine/Codeine 5ml UD ORAL PRN ×2 (09:07→17:13)
[2016-12-30] MEDS: Theophylline ER 100mg ORAL SCH ×2 (09:08→21:00)
--- NOTE | 2016-12-30 10:40 | General Progress Note ---
Assessment/Plan Status: doing well - from pulmonary stand, stable - from renal stand Assessment/Plan - ATN (acute tubular necrosis), multifactorial Mainly DM and HTN improved - CAD with PR previously - SZ Disorder - COPD exacerbation - Hypothyroidism - Gastritis - ACS (acute coronary syndrome) - HTN (hypertension) - Nonhealing ulcer of right lower extremity - Osteomyelitis of right lower extremity Plan: Hydrate- Phos supplement- as needed taper steroids- UA and Urine studies- pending Avoid Nephrotoxics monitor renal parameters- per orders- Subjective ROS Limited/Unobtainable: No Constitutional: Reports: malaise Respiratory: Reports: cough Allergies: Coded Allergies: EGG (Verified Allergy, Unknown, 09/22/15) MEPERIDINE (Verified Allergy, Unknown, 12/21/10) MORPHINE (Verified Allergy, Unknown, Shortness of Breath, 01/24/14) itching,shortness of breath,dyspnea NITROGLYCERIN (Verified Allergy, Unknown, 06/21/11) Objective Last 24 Hour Vital Signs Date Time Temp Pulse Resp B/P Pulse Ox O2 Delivery O2 Flow Rate FiO2 12/30/16 09:39 97.8 12/30/16 09:08 109 155/79 12/30/16 08:24 97.8 109 20 155/79 99 Nasal Cannula 2.0 12/30/16 07:45 Nasal Cannula 2.0 12/30/16 07:45 101 18 Nasal Cannula 2.0 28 12/30/16 07:45 28 12/30/16 07:45 101 18 100 Nasal Cannula 2.0 28 12/30/16 07:45 100 Nasal Cannula 2.0 28 12/30/16 04:00 97.2 119 20 134/57 96 Nasal Cannula 2.0 12/30/16 03:18 116 18 100 Nasal Cannula 2.0 12/30/16 02:57 28 12/30/16 02:56 112 18 98 Nasal Cannula 2.0 28 12/30/16 00:00 97.7 119 20 151/78 97 Nasal Cannula 2.0 12/29/16 23:06 112 18 98 Nasal Cannula 2.0 12/29/16 22:50 131 18 98 Nasal Cannula 2.0 28 12/29/16 22:50 28 12/29/16 19:34 110 18 98 Nasal Cannula 2.0 12/29/16 19:20 116 18 97 Nasal Cannula 2.0 28 12/29/16 19:20 28 12/29/16 19:08 Nasal Cannula 2.0 12/29/16 19:07 Nasal Cannula 2.0 28 12/29/16 19:07 Nasal Cannula 12/29/16 19:07 98 Nasal Cannula 2.0 28 12/29/16 19:06 116 18 Nasal Cannula 2.0 28 12/29/16 19:00 97.3 100 20 125/73 100 Room Air 12/29/16 16:00 97.7 100 20 133/75 98 Room Air 12/29/16 15:00 118 16 100 Nasal Cannula 2.0 28 12/29/16 15:00 118 16 100 Nasal Cannula 2.0 28 12/29/16 13:39 120 18 100 Nasal Cannula 2.0 28 12/29/16 13:39 120 20 100 Nasal Cannula 2.0 28 12/29/16 11:55 97.7 112 20 144/80 100 Nasal Cannula Intake and Output 12/29/16 12/30/16 19:00 07:00 Intake Total 680 ml 890 ml Output Total 1 ml Balance 680 ml 889 ml Intake Oral 680 ml 890 ml Output Urine Total 1 ml # Voids 1 4 Laboratory Tests 12/30/16 06:10: White Blood Count 12.9H, Red Blood Count 3.51L, Hemoglobin 9.9L, Hematocrit 31.6L, Mean Corpuscular Volume 90, Mean Corpuscular Hemoglobin 28.2, Mean Corpuscular Hemoglobin Concent 31.4L, Red Cell Distribution Width 16.9H, Platelet Count 250, Mean Platelet Volume 6.6, Neutrophils (%) (Auto) 59.5, Lymphocytes (%) (Auto) 20.7, Monocytes (%) (Auto) 17.0H, Eosinophils (%) (Auto) 0.7, Basophils (%) (Auto) 2.2H, Sodium Level 141, Potassium Level 3.5, Chloride Level 96L, Carbon Dioxide Level 30, Anion Gap 15, Blood Urea Nitrogen 23, Creatinine 1.4H, Estimat Glomerular Filtration Rate > 60, Glucose Level 96, Calcium Level 8.4L, Phosphorus Level 1.9L, Magnesium Level 1.8, Total Bilirubin < 0.2, Direct Bilirubin 0.1, Gamma Glutamyl Transpeptidase 30, Aspartate Amino Transf (AST/SGOT) 17, Alanine Aminotransferase (ALT/SGPT) 15, Alkaline Phosphatase 85, Total Protein 6.2L, Albumin 3.7 Height (Feet): 6 Height (Inches): 0.00 Weight (Pounds): 130 General Appearance: no apparent distress Respiratory/Chest: rhonchi - bilaterally - -minimal Abdomen: soft Objective other physical exam not changed KACEY BERNSTEIN Dec 30, 2016 10:40
[2016-12-30 11:25] VITALS: BP 112/71
[2016-12-30] MEDS: Phospha 250 Neutral tab ORAL SCH ×2 (13:05→17:13)
--- NOTE | 2016-12-30 15:48 | Pulmonology Progress Note ---
Assessment/Plan Problems: (1) ACS (acute coronary syndrome) (2) COPD exacerbation (3) Hx of CABG (4) DM (diabetes mellitus) (5) HTN (hypertension) (6) CAD (coronary artery disease) Assessment/Plan improving continue antibiotics podiatry consult Subjective ROS Limited/Unobtainable: No Constitutional: Reports: no symptoms HEENT: Repors: no symptoms Respiratory: Reports: no symptoms Allergies: Coded Allergies: EGG (Verified Allergy, Unknown, 09/22/15) MEPERIDINE (Verified Allergy, Unknown, 12/21/10) MORPHINE (Verified Allergy, Unknown, Shortness of Breath, 01/24/14) itching,shortness of breath,dyspnea NITROGLYCERIN (Verified Allergy, Unknown, 06/21/11) Objective Last 24 Hour Vital Signs Date Time Temp Pulse Resp B/P Pulse Ox O2 Delivery O2 Flow Rate FiO2 12/30/16 12:49 98.0 12/30/16 11:25 98.0 109 19 112/71 99 Nasal Cannula 2.0 12/30/16 11:09 111 16 100 Nasal Cannula 2.0 12/30/16 11:09 28 12/30/16 09:08 109 155/79 12/30/16 08:24 97.8 109 20 155/79 99 Nasal Cannula 2.0 12/30/16 07:45 Nasal Cannula 2.0 12/30/16 07:45 101 18 Nasal Cannula 2.0 12/30/16 07:45 28 12/30/16 07:45 101 18 100 Nasal Cannula 2.0 12/30/16 07:45 100 Nasal Cannula 2.0 12/30/16 04:00 97.2 119 20 134/57 96 Nasal Cannula 2.0 12/30/16 03:18 116 18 100 Nasal Cannula 2.0 12/30/16 02:57 28 12/30/16 02:56 112 18 98 Nasal Cannula 2.0 12/30/16 00:00 97.7 119 20 151/78 97 Nasal Cannula 2.0 12/29/16 23:06 112 18 98 Nasal Cannula 2.0 12/29/16 22:50 131 18 98 Nasal Cannula 2.0 28 12/29/16 22:50 28 12/29/16 19:34 110 18 98 Nasal Cannula 2.0 12/29/16 19:20 116 18 97 Nasal Cannula 2.0 28 12/29/16 19:20 28 12/29/16 19:08 Nasal Cannula 2.0 12/29/16 19:07 Nasal Cannula 2.0 28 12/29/16 19:07 Nasal Cannula 12/29/16 19:07 98 Nasal Cannula 2.0 28 12/29/16 19:06 116 18 Nasal Cannula 2.0 28 12/29/16 19:00 97.3 100 20 125/73 100 Room Air 12/29/16 16:00 97.7 100 20 133/75 98 Room Air Intake and Output 12/29/16 12/30/16 19:00 07:00 Intake Total 680 ml 890 ml Output Total 1 ml Balance 680 ml 889 ml Intake Oral 680 ml 890 ml Output Urine Total 1 ml # Voids 1 4 General Appearance: WD/WN HEENT: normocephalic, atraumatic Respiratory/Chest: chest wall non-tender, lungs clear Cardiovascular: normal peripheral pulses, regular rhythm Abdomen: normal bowel sounds, soft, non tender Genitourinary: normal external genitalia Extremities: no cyanosis Skin: no rash Microbiology Date/Time Source Procedure Growth Status 12/28/16 14:45 Sputum Gram Stain - Final Complete 12/28/16 14:45 Sputum Culture - Final Vikki Albicans Usual Upper Respiratory Norah Complete Laboratory Tests 12/30/16 06:10: White Blood Count 12.9H, Red Blood Count 3.51L, Hemoglobin 9.9L, Hematocrit 31.6L, Mean Corpuscular Volume 90, Mean Corpuscular Hemoglobin 28.2, Mean Corpuscular Hemoglobin Concent 31.4L, Red Cell Distribution Width 16.9H, Platelet Count 250, Mean Platelet Volume 6.6, Neutrophils (%) (Auto) 59.5, Lymphocytes (%) (Auto) 20.7, Monocytes (%) (Auto) 17.0H, Eosinophils (%) (Auto) 0.7, Basophils (%) (Auto) 2.2H, Sodium Level 141, Potassium Level 3.5, Chloride Level 96L, Carbon Dioxide Level 30, Anion Gap 15, Blood Urea Nitrogen 23, Creatinine 1.4H, Estimat Glomerular Filtration Rate > 60, Glucose Level 96, Calcium Level 8.4L, Phosphorus Level 1.9L, Magnesium Level 1.8, Total Bilirubin < 0.2, Direct Bilirubin 0.1, Gamma Glutamyl Transpeptidase 30, Aspartate Amino Transf (AST/SGOT) 17, Alanine Aminotransferase (ALT/SGPT) 15, Alkaline Phosphatase 85, Total Protein 6.2L, Albumin 3.7 12/30/16 13:30: Urine Eosinophils None seen Current Medications Medications (Trade) Dose Ordered Sig/Aminata Route PRN Reason Start Time Stop Time Status Last Admin Dose Admin Albuterol/ Ipratropium (DuoNeb 0.5-3(2.5)mg/3ml) 3 ml Q4H HHN 12/29/16 22:00 01/03/17 21:59 12/30/16 15:08 Amlodipine Besylate (Norvasc) 10 mg DAILY ORAL 12/30/16 09:00 01/29/17 08:59 12/30/16 09:08 Atorvastatin Calcium (Lipitor) 20 mg BEDTIME ORAL 12/29/16 21:00 01/28/17 20:59 12/29/16 21:11 Clonidine HCl (Catapres) 0.1 mg Q4H PRN ORAL SBP>160 12/29/16 11:30 01/28/17 11:29 Clopidogrel Bisulfate (Plavix) 75 mg DAILY ORAL 12/30/16 09:00 01/29/17 08:59 12/30/16 09:08 Dextrose (Dextrose 50%) STAT PRN IV Hypoglycemia 12/29/16 11:30 01/28/17 11:29 Hydromorphone HCl (Dilaudid) 2 mg Q3H PRN IVP Severe Pain (Pain Scale 7-10) 12/29/16 11:00 01/05/17 10:59 12/30/16 12:19 Levetiracetam (Keppra) 500 mg FOUR TIMES A DAY ORAL 12/29/16 13:00 01/28/17 12:59 12/30/16 12:18 Levofloxacin (Levaquin 750mg/ D5W) 150 ml @ 100 mls/hr Q48H IVPB 12/29/16 23:00 01/05/17 22:59 12/29/16 23:15 Levothyroxine Sodium (Synthroid) 25 mcg ACBREAKFAST ORAL 12/30/16 06:30 01/29/17 06:29 12/30/16 06:17 Lorazepam (Ativan 2mg/ml 1ml) 0.5 mg Q4H PRN IV For Anxiety 12/29/16 11:30 01/05/17 11:29 Methylprednisolone Sodium Succinate (Solu-MEDROL) 60 mg DAILY IV 12/30/16 09:00 01/29/17 08:59 12/30/16 09:07 Ondansetron HCl (Zofran) 4 mg Q6H PRN IVP Nausea & Vomiting 12/29/16 11:30 01/28/17 11:29 Pantoprazole (Protonix) 40 mg EVERY 12 HOURS ORAL 12/29/16 21:00 01/28/17 20:59 12/30/16 09:08 Phosphorus (Phospha 250 Neutral) 500 mg THREE TIMES A DAY ORAL 12/30/16 13:00 01/29/17 12:59 12/30/16 13:05 Promethazine HCl/ Codeine (Phenergan with Codeine) 5 ml Q6H PRN ORAL For Cough 12/29/16 14:00 01/28/17 13:59 12/30/16 09:07 Temazepam (Restoril) 15 mg HSPRN PRN ORAL Insomnia 12/29/16 11:30 01/05/17 11:29 Theophylline (Wilfrido-Dur) 100 mg EVERY 12 HOURS ORAL 12/29/16 21:00 01/28/17 20:59 12/30/16 09:08 TAI SWEENEY Dec 30, 2016 15:48
--- NOTE | 2016-12-30 15:49 | Infectious Diseases Prog Note ---
Assessment/Plan Assessment/Plan ASSESSMENT: 66 y/o male with: // COPD exacerbation - CXR: COPD. No acute process // h/o chronic non-healing lateral RLE ulcer, not grossly infected - MRI 10/30: No evidence of acute osteomyelitis. Multiple bone infarcts. Post fracture deformity of the distal tibia and fibula. 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 TTE EF 60-65%, grade 1 diastolic dysfunction, mod pHTN, trace MR, mild TR PAD DM Seizure disorder. COPD. CVA MDRO colonized No ABX allergies Full Code PLAN: - ok to DC on PO Levaquin d# 4 / 5 from ID standpoint - taper steroids per pulm - f/u cultures - monitor CBC, temperatures - monitor BMP - monitor CXR - wound care Subjective Allergies: Coded Allergies: EGG (Verified Allergy, Unknown, 09/22/15) MEPERIDINE (Verified Allergy, Unknown, 12/21/10) MORPHINE (Verified Allergy, Unknown, Shortness of Breath, 01/24/14) itching,shortness of breath,dyspnea NITROGLYCERIN (Verified Allergy, Unknown, 06/21/11) Subjective remains afebrile. no new complaint Objective Vital Signs Last 24 Hour Vital Signs Date Time Temp Pulse Resp B/P Pulse Ox O2 Delivery O2 Flow Rate FiO2 12/30/16 12:49 98.0 12/30/16 11:25 98.0 109 19 112/71 99 Nasal Cannula 2.0 12/30/16 11:09 111 16 100 Nasal Cannula 2.0 28 12/30/16 11:09 28 12/30/16 09:08 109 155/79 12/30/16 08:24 97.8 109 20 155/79 99 Nasal Cannula 2.0 12/30/16 07:45 Nasal Cannula 2.0 28 12/30/16 07:45 101 18 Nasal Cannula 2.0 28 12/30/16 07:45 28 12/30/16 07:45 101 18 100 Nasal Cannula 2.0 28 12/30/16 07:45 100 Nasal Cannula 2.0 28 12/30/16 04:00 97.2 119 20 134/57 96 Nasal Cannula 2.0 12/30/16 03:18 116 18 100 Nasal Cannula 2.0 12/30/16 02:57 28 12/30/16 02:56 112 18 98 Nasal Cannula 2.0 28 12/30/16 00:00 97.7 119 20 151/78 97 Nasal Cannula 2.0 12/29/16 23:06 112 18 98 Nasal Cannula 2.0 12/29/16 22:50 131 18 98 Nasal Cannula 2.0 28 12/29/16 22:50 28 12/29/16 19:34 110 18 98 Nasal Cannula 2.0 12/29/16 19:20 116 18 97 Nasal Cannula 2.0 28 12/29/16 19:20 28 12/29/16 19:08 Nasal Cannula 2.0 12/29/16 19:07 Nasal Cannula 2.0 28 12/29/16 19:07 Nasal Cannula 12/29/16 19:07 98 Nasal Cannula 2.0 28 12/29/16 19:06 116 18 Nasal Cannula 2.0 28 12/29/16 19:00 97.3 100 20 125/73 100 Room Air 12/29/16 16:00 97.7 100 20 133/75 98 Room Air Height (Feet): 6 Height (Inches): 0.00 Weight (Pounds): 130 General Appearance: no acute distress Respiratory/Chest: no respiratory distress Cardiovascular: normal rate, regular rhythm Abdomen: normal bowel sounds, soft, non tender, non distended Microbiology Date/Time Source Procedure Growth Status 12/28/16 14:45 Sputum Gram Stain - Final Complete 12/28/16 14:45 Sputum Culture - Final Vikki Albicans Usual Upper Respiratory Norah Complete Laboratory Tests Test 12/30/16 06:10 12/30/16 13:30 White Blood Count 12.9 K/UL (4.8-10.8) H Red Blood Count 3.51 M/UL (4.70-6.10) L Hemoglobin 9.9 G/DL (14.2-18.0) L Hematocrit 31.6 % (42.0-52.0) L Mean Corpuscular Volume 90 FL (80-99) Mean Corpuscular Hemoglobin 28.2 PG (27.0-31.0) Mean Corpuscular Hemoglobin Concent 31.4 G/DL (32.0-36.0) L Red Cell Distribution Width 16.9 % (11.6-14.8) H Platelet Count 250 K/UL (150-450) Mean Platelet Volume 6.6 FL (6.5-10.1) Neutrophils (%) (Auto) 59.5 % (45.0-75.0) Lymphocytes (%) (Auto) 20.7 % (20.0-45.0) Monocytes (%) (Auto) 17.0 % (1.0-10.0) H Eosinophils (%) (Auto) 0.7 % (0.0-3.0) Basophils (%) (Auto) 2.2 % (0.0-2.0) H Sodium Level 141 mEQ/L (135-145) Potassium Level 3.5 mEQ/L (3.4-4.9) Chloride Level 96 mEQ/L (98-107) L Carbon Dioxide Level 30 mEQ/L (20-30) Anion Gap 15 (5-15) Blood Urea Nitrogen 23 mg/dL (7-23) Creatinine 1.4 mg/dL (0.7-1.2) H Estimat Glomerular Filtration Rate > 60 mL/min (>60) Glucose Level 96 mg/dL (74-106) Calcium Level 8.4 mg/dL (8.6-10.2) L Phosphorus Level 1.9 mg/dL (2.5-4.8) L Magnesium Level 1.8 mg/dL (1.7-2.5) Total Bilirubin < 0.2 mg/dL (0.0-1.2) Direct Bilirubin 0.1 mg/dL (0.1-0.3) Gamma Glutamyl Transpeptidase 30 U/L (8-61) Aspartate Amino Transf (AST/SGOT) 17 U/L (5-40) Alanine Aminotransferase (ALT/SGPT) 15 U/L (3-41) Alkaline Phosphatase 85 U/L (40-129) Total Protein 6.2 g/dL (6.6-8.7) L Albumin 3.7 g/dL (3.5-5.2) Urine Eosinophils None seen Current Medications Medications (Trade) Dose Ordered Sig/Aminata Route PRN Reason Start Time Stop Time Status Last Admin Dose Admin Albuterol/ Ipratropium (DuoNeb 0.5-3(2.5)mg/3ml) 3 ml Q4H HHN 12/29/16 22:00 01/03/17 21:59 12/30/16 15:08 Amlodipine Besylate (Norvasc) 10 mg DAILY ORAL 12/30/16 09:00 01/29/17 08:59 12/30/16 09:08 Atorvastatin Calcium (Lipitor) 20 mg BEDTIME ORAL 12/29/16 21:00 01/28/17 20:59 12/29/16 21:11 Clonidine HCl (Catapres) 0.1 mg Q4H PRN ORAL SBP>160 12/29/16 11:30 01/28/17 11:29 Clopidogrel Bisulfate (Plavix) 75 mg DAILY ORAL 12/30/16 09:00 01/29/17 08:59 12/30/16 09:08 Dextrose (Dextrose 50%) STAT PRN IV Hypoglycemia 12/29/16 11:30 01/28/17 11:29 Hydromorphone HCl (Dilaudid) 2 mg Q3H PRN IVP Severe Pain (Pain Scale 7-10) 12/29/16 11:00 01/05/17 10:59 12/30/16 12:19 Levetiracetam (Keppra) 500 mg FOUR TIMES A DAY ORAL 12/29/16 13:00 01/28/17 12:59 12/30/16 12:18 Levofloxacin (Levaquin 750mg/ D5W) 150 ml @ 100 mls/hr Q48H IVPB 12/29/16 23:00 01/05/17 22:59 12/29/16 23:15 Levothyroxine Sodium (Synthroid) 25 mcg ACBREAKFAST ORAL 12/30/16 06:30 01/29/17 06:29 12/30/16 06:17 Lorazepam (Ativan 2mg/ml 1ml) 0.5 mg Q4H PRN IV For Anxiety 12/29/16 11:30 01/05/17 11:29 Methylprednisolone Sodium Succinate (Solu-MEDROL) 60 mg DAILY IV 12/30/16 09:00 01/29/17 08:59 12/30/16 09:07 Ondansetron HCl (Zofran) 4 mg Q6H PRN IVP Nausea & Vomiting 12/29/16 11:30 01/28/17 11:29 Pantoprazole (Protonix) 40 mg EVERY 12 HOURS ORAL 12/29/16 21:00 01/28/17 20:59 12/30/16 09:08 Phosphorus (Phospha 250 Neutral) 500 mg THREE TIMES A DAY ORAL 12/30/16 13:00 01/29/17 12:59 12/30/16 13:05 Promethazine HCl/ Codeine (Phenergan with Codeine) 5 ml Q6H PRN ORAL For Cough 12/29/16 14:00 01/28/17 13:59 12/30/16 09:07 Temazepam (Restoril) 15 mg HSPRN PRN ORAL Insomnia 12/29/16 11:30 01/05/17 11:29 Theophylline (Wilfrido-Dur) 100 mg EVERY 12 HOURS ORAL 12/29/16 21:00 01/28/17 20:59 12/30/16 09:08 ETHAN KHAN Dec 30, 2016 15:49
[2016-12-30 16:00] VITALS: BP 138/46
[2016-12-30] MEDS ORDERED: NS 275ml ONE (16:03)
[2016-12-30] MEDS ORDERED: Tubing IV Secondary IV ONE (16:03)
[2016-12-30 20:00] VITALS: BP 158/71
[2016-12-30] MEDS: Atorvastatin 20mg tab ORAL SCH (21:01)
[2016-12-31] VITALS: BP 118/66
[2016-12-31] MEDS: DuoNeb 0.5-3(2.5)mg/3ml neb HHN SCH ×6 (02:00→23:13)
[2016-12-31 04:00] VITALS: BP 146/74
[2016-12-31] MEDS: Levothyroxine 25mcg tab ORAL SCH (06:10)
[2016-12-31 08:26] VITALS: BP 123/62
--- NOTE | 2016-12-31 09:10 | Diagnostic Imaging Report ---
Indication: SOB Technique: One view of the chest Comparison: 12/27/2016 Findings: Lungs are hyperinflated. Lungs pleural space are clear. Heart size is normal. Aorta is tortuous and calcified. Upper mediastinum is unremarkable. No significant interim change Impression: COPD changes No acute process
[2016-12-31] MEDS: Theophylline ER 100mg ORAL SCH ×2 (09:44→22:27)
[2016-12-31] MEDS: Solu-MEDROL 125mg Inj IV SCH (09:44)
[2016-12-31] MEDS: Phospha 250 Neutral tab ORAL SCH ×3 (09:45→18:51)
[2016-12-31 11:31] VITALS: BP 140/63
[2016-12-31] MEDS: Promethazine/Codeine 5ml UD ORAL PRN ×2 (13:17→22:28)
--- NOTE | 2016-12-31 13:34 | General Progress Note ---
Assessment/Plan Status: stable Assessment/Plan - ATN (acute tubular necrosis), multifactorial Mainly DM and HTN improved - CAD with [place] previously - SZ Disorder - COPD exacerbation - Hypothyroidism - Gastritis - ACS (acute coronary syndrome) - HTN (hypertension) - Nonhealing ulcer of right lower extremity - Osteomyelitis of right lower extremity Plan: no labs today- Hydrate- Phos supplement- as needed taper steroids- UA and Urine studies- pending Avoid Nephrotoxics monitor renal parameters- per orders- Subjective ROS Limited/Unobtainable: No Respiratory: Reports: cough Allergies: Coded Allergies: EGG (Verified Allergy, Unknown, 09/22/15) MEPERIDINE (Verified Allergy, Unknown, 12/21/10) MORPHINE (Verified Allergy, Unknown, Shortness of Breath, 01/24/14) itching,shortness of breath,dyspnea NITROGLYCERIN (Verified Allergy, Unknown, 06/21/11) Objective Last 24 Hour Vital Signs Date Time Temp Pulse Resp B/P Pulse Ox O2 Delivery O2 Flow Rate FiO2 12/31/16 11:31 97.5 116 15 140/63 98 Room Air 12/31/16 11:30 111 16 99 Nasal Cannula 2.0 28 12/31/16 11:30 112 16 97 Nasal Cannula 2.0 28 12/31/16 11:30 28 12/31/16 10:17 97.5 12/31/16 09:45 117 123/62 12/31/16 08:26 97.5 117 20 123/62 99 Room Air 12/31/16 07:52 99 Nasal Cannula 2.0 28 12/31/16 07:52 Nasal Cannula 2.0 28 12/31/16 07:52 113 16 99 Nasal Cannula 2.0 28 12/31/16 07:52 28 12/31/16 07:52 114 16 99 Nasal Cannula 2.0 28 12/31/16 04:00 97.5 115 20 146/74 98 Room Air 12/31/16 03:24 116 19 99 Nasal Cannula 2.0 28 12/31/16 03:11 116 19 95 Nasal Cannula 2.0 28 12/31/16 03:11 28 12/31/16 00:00 98.1 117 20 118/66 95 Room Air 12/30/16 22:40 120 19 99 Nasal Cannula 2.0 28 12/30/16 22:36 28 12/30/16 22:35 118 19 96 Nasal Cannula 2.0 28 12/30/16 20:04 122 19 99 Nasal Cannula 2.0 28 12/30/16 20:00 98.2 120 20 158/71 92 Room Air 12/30/16 19:55 28 12/30/16 19:55 95 Nasal Cannula 2.0 28 12/30/16 19:55 Nasal Cannula 2.0 28 12/30/16 19:54 119 19 95 Nasal Cannula 2.0 28 12/30/16 16:00 96.7 124 20 138/46 95 Room Air 12/30/16 15:20 121 19 99 Nasal Cannula 2.0 28 12/30/16 15:08 28 12/30/16 15:08 118 20 99 Nasal Cannula 2.0 28 Intake and Output 12/30/16 12/31/16 19:00 07:00 Intake Total 420 ml 980 ml Output Total 350 ml Balance 70 ml 980 ml Intake Oral 420 ml 980 ml Output Urine Total 350 ml # Voids 4 Height (Feet): 6 Height (Inches): 0.00 Weight (Pounds): 130 General Appearance: no apparent distress Neck: stiff neck Cardiovascular: tachycardia Respiratory/Chest: expiratory wheezing Abdomen: distended Objective other physical exam not changed KACEY BERNSTEIN Dec 31, 2016 13:34
--- NOTE | 2016-12-31 14:26 | Pulmonology Progress Note ---
Assessment/Plan Problems: (1) ACS (acute coronary syndrome) (2) COPD exacerbation (3) Hx of CABG (4) DM (diabetes mellitus) (5) HTN (hypertension) (6) CAD (coronary artery disease) Assessment/Plan less cough needs to be seen by podiatry improving continue antibiotics dc home in am Subjective ROS Limited/Unobtainable: No Interval Events: still coughing Allergies: Coded Allergies: EGG (Verified Allergy, Unknown, 09/22/15) MEPERIDINE (Verified Allergy, Unknown, 12/21/10) MORPHINE (Verified Allergy, Unknown, Shortness of Breath, 01/24/14) itching,shortness of breath,dyspnea NITROGLYCERIN (Verified Allergy, Unknown, 06/21/11) Objective Last 24 Hour Vital Signs Date Time Temp Pulse Resp B/P Pulse Ox O2 Delivery O2 Flow Rate FiO2 12/31/16 11:31 97.5 116 15 140/63 98 Room Air 12/31/16 11:30 111 16 99 Nasal Cannula 2.0 28 12/31/16 11:30 112 16 97 Nasal Cannula 2.0 28 12/31/16 11:30 28 12/31/16 10:17 97.5 12/31/16 09:45 117 123/62 12/31/16 08:26 97.5 117 20 123/62 99 Room Air 12/31/16 07:52 99 Nasal Cannula 2.0 28 12/31/16 07:52 Nasal Cannula 2.0 12/31/16 07:52 113 16 99 Nasal Cannula 2.0 28 12/31/16 07:52 28 12/31/16 07:52 114 16 99 Nasal Cannula 2.0 28 12/31/16 04:00 97.5 115 20 146/74 98 Room Air 12/31/16 03:24 116 19 99 Nasal Cannula 2.0 28 12/31/16 03:11 116 19 95 Nasal Cannula 2.0 28 12/31/16 03:11 28 12/31/16 00:00 98.1 117 20 118/66 95 Room Air 12/30/16 22:40 120 19 99 Nasal Cannula 2.0 28 12/30/16 22:36 28 12/30/16 22:35 118 19 96 Nasal Cannula 2.0 28 12/30/16 20:04 122 19 99 Nasal Cannula 2.0 28 12/30/16 20:00 98.2 120 20 158/71 92 Room Air 12/30/16 19:55 28 12/30/16 19:55 95 Nasal Cannula 2.0 28 12/30/16 19:55 Nasal Cannula 2.0 28 12/30/16 19:54 119 19 95 Nasal Cannula 2.0 28 12/30/16 16:00 96.7 124 20 138/46 95 Room Air 12/30/16 15:20 121 19 99 Nasal Cannula 2.0 28 12/30/16 15:08 28 12/30/16 15:08 118 20 99 Nasal Cannula 2.0 28 Intake and Output 12/30/16 12/31/16 19:00 07:00 Intake Total 420 ml 980 ml Output Total 350 ml Balance 70 ml 980 ml Intake Oral 420 ml 980 ml Output Urine Total 350 ml # Voids 4 General Appearance: cachetic HEENT: normocephalic Respiratory/Chest: chest wall non-tender, lungs clear Cardiovascular: normal peripheral pulses, normal rate Abdomen: normal bowel sounds, soft, non tender Extremities: no cyanosis Skin: no rash Microbiology Date/Time Source Procedure Growth Status 12/28/16 14:45 Sputum Gram Stain - Final Complete 12/28/16 14:45 Sputum Culture - Final Vikki Albicans Usual Upper Respiratory Norah Complete Current Medications Medications (Trade) Dose Ordered Sig/Aminata Route PRN Reason Start Time Stop Time Status Last Admin Dose Admin Albuterol/ Ipratropium (DuoNeb 0.5-3(2.5)mg/3ml) 3 ml Q4H HHN 12/29/16 22:00 01/03/17 21:59 12/31/16 11:31 Amlodipine Besylate (Norvasc) 10 mg DAILY ORAL 12/30/16 09:00 01/29/17 08:59 12/31/16 09:45 Atorvastatin Calcium (Lipitor) 20 mg BEDTIME ORAL 12/29/16 21:00 01/28/17 20:59 12/30/16 21:01 Clonidine HCl (Catapres) 0.1 mg Q4H PRN ORAL SBP>160 12/29/16 11:30 01/28/17 11:29 Clopidogrel Bisulfate (Plavix) 75 mg DAILY ORAL 12/30/16 09:00 01/29/17 08:59 12/31/16 10:04 Dextrose (Dextrose 50%) STAT PRN IV Hypoglycemia 12/29/16 11:30 01/28/17 11:29 Hydromorphone HCl (Dilaudid) 2 mg Q3H PRN IVP Severe Pain (Pain Scale 7-10) 12/29/16 11:00 01/05/17 10:59 12/31/16 13:11 Levetiracetam (Keppra) 500 mg FOUR TIMES A DAY ORAL 12/29/16 13:00 01/28/17 12:59 12/31/16 13:11 Levofloxacin (Levaquin 750mg/ D5W) 150 ml @ 100 mls/hr Q48H IVPB 12/29/16 23:00 01/05/17 22:59 12/29/16 23:15 Levothyroxine Sodium (Synthroid) 25 mcg ACBREAKFAST ORAL 12/30/16 06:30 01/29/17 06:29 12/31/16 06:10 Lorazepam (Ativan 2mg/ml 1ml) 0.5 mg Q4H PRN IV For Anxiety 12/29/16 11:30 01/05/17 11:29 Methylprednisolone Sodium Succinate (Solu-MEDROL) 60 mg DAILY IV 12/30/16 09:00 01/29/17 08:59 12/31/16 09:44 Ondansetron HCl (Zofran) 4 mg Q6H PRN IVP Nausea & Vomiting 12/29/16 11:30 01/28/17 11:29 Pantoprazole (Protonix) 40 mg EVERY 12 HOURS ORAL 12/29/16 21:00 01/28/17 20:59 12/31/16 09:45 Phosphorus (Phospha 250 Neutral) 500 mg THREE TIMES A DAY ORAL 12/30/16 13:00 01/29/17 12:59 12/31/16 13:11 Promethazine HCl/ Codeine (Phenergan with Codeine) 5 ml Q6H PRN ORAL For Cough 12/29/16 14:00 01/28/17 13:59 12/31/16 13:17 Temazepam (Restoril) 15 mg HSPRN PRN ORAL Insomnia 12/29/16 11:30 01/05/17 11:29 Theophylline (Wilfrido-Dur) 100 mg EVERY 12 HOURS ORAL 12/29/16 21:00 01/28/17 20:59 12/31/16 09:44 TAI SWEENEY Dec 31, 2016 14:26
--- NOTE | 2016-12-31 15:35 | Consultation ---
Consult Note Assessment/Plan Assessment/Plan A/ 1) Nonpressure lateral right ankle ulcer 2) PVD 3) DM P/ 1) Cultures of wound today 2) Agree with ID, acute leukocytosis steroid induced 3) Cont wound care as ordered 4) Will be seen at wound center as outpatient Thank you Dave Pereira DPM Dec 31, 2016 15:35
[2016-12-31 15:54] VITALS: BP 124/90
--- NOTE | 2016-12-31 15:59 | Infectious Diseases Prog Note ---
Assessment/Plan Assessment/Plan ASSESSMENT: 66 y/o male with: // COPD exacerbation - CXR 12/30: Lungs are hyperinflated. Lungs pleural space are clear. // h/o chronic non-healing lateral RLE ulcer, not grossly infected - MRI 10/30: No evidence of acute osteomyelitis. Multiple bone infarcts. Post fracture deformity of the distal tibia and fibula. 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 TTE EF 60-65%, grade 1 diastolic dysfunction, mod pHTN, trace MR, mild TR PAD DM Seizure disorder. COPD. CVA MDRO colonized No ABX allergies Full Code PLAN: - finishes PO Levaquin d# 5 / today. Ok to DC in AM off of ABX from ID standpoint - taper steroids per pulm - monitor CBC, temperatures, re-culture if acute change - monitor BMP - monitor CXR - wound care Subjective Allergies: Coded Allergies: EGG (Verified Allergy, Unknown, 09/22/15) MEPERIDINE (Verified Allergy, Unknown, 12/21/10) MORPHINE (Verified Allergy, Unknown, Shortness of Breath, 01/24/14) itching,shortness of breath,dyspnea NITROGLYCERIN (Verified Allergy, Unknown, 06/21/11) Subjective remains afebrile. no new complaint for possible DC in AM Objective Vital Signs Last 24 Hour Vital Signs Date Time Temp Pulse Resp B/P Pulse Ox O2 Delivery O2 Flow Rate FiO2 12/31/16 15:54 97.9 134 20 124/90 91 Room Air 12/31/16 15:33 28 12/31/16 15:33 117 17 96 Nasal Cannula 2.0 28 12/31/16 15:33 116 18 99 Nasal Cannula 2.0 28 12/31/16 13:41 97.5 12/31/16 11:31 97.5 116 15 140/63 98 Room Air 12/31/16 11:30 111 16 99 Nasal Cannula 2.0 28 12/31/16 11:30 112 16 97 Nasal Cannula 2.0 28 12/31/16 11:30 28 12/31/16 09:45 117 123/62 12/31/16 08:26 97.5 117 20 123/62 99 Room Air 12/31/16 07:52 99 Nasal Cannula 2.0 28 12/31/16 07:52 Nasal Cannula 2.0 28 12/31/16 07:52 113 16 99 Nasal Cannula 2.0 28 12/31/16 07:52 28 12/31/16 07:52 114 16 99 Nasal Cannula 2.0 28 12/31/16 04:00 97.5 115 20 146/74 98 Room Air 12/31/16 03:24 116 19 99 Nasal Cannula 2.0 28 12/31/16 03:11 116 19 95 Nasal Cannula 2.0 28 12/31/16 03:11 28 12/31/16 00:00 98.1 117 20 118/66 95 Room Air 12/30/16 22:40 120 19 99 Nasal Cannula 2.0 28 12/30/16 22:36 28 12/30/16 22:35 118 19 96 Nasal Cannula 2.0 28 12/30/16 20:04 122 19 99 Nasal Cannula 2.0 28 12/30/16 20:00 98.2 120 20 158/71 92 Room Air 12/30/16 19:55 28 12/30/16 19:55 95 Nasal Cannula 2.0 28 12/30/16 19:55 Nasal Cannula 2.0 28 12/30/16 19:54 119 19 95 Nasal Cannula 2.0 28 12/30/16 16:00 96.7 124 20 138/46 95 Room Air Height (Feet): 6 Height (Inches): 0.00 Weight (Pounds): 130 General Appearance: no acute distress Respiratory/Chest: no respiratory distress Cardiovascular: normal rate, regular rhythm Abdomen: normal bowel sounds, soft, non tender, non distended Laboratory Tests Test 12/31/16 13:30 Urine Eosinophils None seen Current Medications Medications (Trade) Dose Ordered Sig/Aminata Route PRN Reason Start Time Stop Time Status Last Admin Dose Admin Albuterol/ Ipratropium (DuoNeb 0.5-3(2.5)mg/3ml) 3 ml Q4H HHN 12/29/16 22:00 01/03/17 21:59 12/31/16 15:33 Amlodipine Besylate (Norvasc) 10 mg DAILY ORAL 12/30/16 09:00 01/29/17 08:59 12/31/16 09:45 Atorvastatin Calcium (Lipitor) 20 mg BEDTIME ORAL 12/29/16 21:00 01/28/17 20:59 12/30/16 21:01 Clonidine HCl (Catapres) 0.1 mg Q4H PRN ORAL SBP>160 12/29/16 11:30 01/28/17 11:29 Clopidogrel Bisulfate (Plavix) 75 mg DAILY ORAL 12/30/16 09:00 01/29/17 08:59 12/31/16 10:04 Dextrose (Dextrose 50%) STAT PRN IV Hypoglycemia 12/29/16 11:30 01/28/17 11:29 Hydromorphone HCl (Dilaudid) 2 mg Q3H PRN IVP Severe Pain (Pain Scale 7-10) 12/29/16 11:00 01/05/17 10:59 12/31/16 13:11 Levetiracetam (Keppra) 500 mg FOUR TIMES A DAY ORAL 12/29/16 13:00 01/28/17 12:59 12/31/16 13:11 Levofloxacin (Levaquin 750mg/ D5W) 150 ml @ 100 mls/hr Q48H IVPB 12/29/16 23:00 01/05/17 22:59 12/29/16 23:15 Levothyroxine Sodium (Synthroid) 25 mcg ACBREAKFAST ORAL 12/30/16 06:30 01/29/17 06:29 12/31/16 06:10 Lorazepam (Ativan 2mg/ml 1ml) 0.5 mg Q4H PRN IV For Anxiety 12/29/16 11:30 01/05/17 11:29 Methylprednisolone Sodium Succinate (Solu-MEDROL) 60 mg DAILY IV 12/30/16 09:00 01/29/17 08:59 12/31/16 09:44 Ondansetron HCl (Zofran) 4 mg Q6H PRN IVP Nausea & Vomiting 12/29/16 11:30 01/28/17 11:29 Pantoprazole (Protonix) 40 mg EVERY 12 HOURS ORAL 12/29/16 21:00 01/28/17 20:59 12/31/16 09:45 Phosphorus (Phospha 250 Neutral) 500 mg THREE TIMES A DAY ORAL 12/30/16 13:00 01/29/17 12:59 12/31/16 13:11 Promethazine HCl/ Codeine (Phenergan with Codeine) 5 ml Q6H PRN ORAL For Cough 12/29/16 14:00 01/28/17 13:59 12/31/16 13:17 Temazepam (Restoril) 15 mg HSPRN PRN ORAL Insomnia 12/29/16 11:30 01/05/17 11:29 Theophylline (Wilfrido-Dur) 100 mg EVERY 12 HOURS ORAL 12/29/16 21:00 01/28/17 20:59 12/31/16 09:44 ETHAN KHAN Dec 31, 2016 15:59
[2016-12-31 20:00] VITALS: BP 125/69
[2016-12-31] MEDS: Atorvastatin 20mg tab ORAL SCH (22:27)
[2017-01-01] VITALS: BP 147/79
[2017-01-01] MEDS: DuoNeb 0.5-3(2.5)mg/3ml neb HHN SCH ×3 (02:00→10:58)
[2017-01-01 04:00] VITALS: BP 125/65
[2017-01-01] MEDS: Levothyroxine 25mcg tab ORAL SCH (06:22)
[2017-01-01 07:59] VITALS: BP 129/63
[2017-01-01] MEDS: Phospha 250 Neutral tab ORAL SCH (08:13)
[2017-01-01] MEDS: Solu-MEDROL 125mg Inj IV SCH (08:14)
[2017-01-01] MEDS: Theophylline ER 100mg ORAL SCH (08:14)
--- NOTE | 2017-01-01 08:46 | Cardiology Report ---
APPROVED REPORT EKG Measurement Heart [id number] SD 120P87 [id number] Sinus tachycardia Biatrial enlargement Anterior infarct, age undetermined Abnormal ECG
--- NOTE | 2017-01-01 11:44 | General Progress Note ---
Assessment/Plan Status: stable - from renal stand Assessment/Plan status: - ATN (acute tubular necrosis), multifactorial Mainly DM and HTN improved - CAD with SC previously - SZ Disorder - COPD exacerbation - Hypothyroidism - Gastritis - ACS (acute coronary syndrome) - HTN (hypertension) - Nonhealing ulcer of right lower extremity - Osteomyelitis of right lower extremity Plan: no labs today- Hydrate- Phos supplement- as needed taper steroids- UA and Urine studies- pending Avoid Nephrotoxics monitor renal parameters- per orders- Subjective ROS Limited/Unobtainable: No Constitutional: Reports: malaise Respiratory: Reports: cough Allergies: Coded Allergies: EGG (Verified Allergy, Unknown, 09/22/15) MEPERIDINE (Verified Allergy, Unknown, 12/21/10) MORPHINE (Verified Allergy, Unknown, Shortness of Breath, 01/24/14) itching,shortness of breath,dyspnea NITROGLYCERIN (Verified Allergy, Unknown, 06/21/11) Objective Last 24 Hour Vital Signs Date Time Temp Pulse Resp B/P Pulse Ox O2 Delivery O2 Flow Rate FiO2 01/01/17 10:58 107 18 98 Nasal Cannula 2.0 01/01/17 08:45 97.9 01/01/17 08:13 116 129/63 01/01/17 07:59 97.9 116 21 129/63 97 Nasal Cannula 2.0 01/01/17 07:29 114 18 98 Nasal Cannula 2.0 28 01/01/17 07:29 28 01/01/17 07:29 112 18 97 Nasal Cannula 2.0 28 01/01/17 07:29 Nasal Cannula 2.0 28 01/01/17 07:29 98 Nasal Cannula 2.0 01/01/17 04:00 97.5 92 16 125/65 92 Room Air 01/01/17 03:44 Nasal Cannula 01/01/17 03:44 Nasal Cannula 01/01/17 00:00 96.3 112 16 147/79 95 Room Air 12/31/16 23:22 120 18 99 Nasal Cannula 2.0 28 12/31/16 23:12 28 12/31/16 23:12 118 17 94 Nasal Cannula 2.0 28 12/31/16 20:00 97.9 119 20 125/69 97 Room Air 12/31/16 19:46 121 18 99 Nasal Cannula 2.0 28 12/31/16 19:41 120 17 96 Nasal Cannula 2.0 28 12/31/16 19:41 28 12/31/16 19:40 Nasal Cannula 2.0 28 12/31/16 19:40 97 Nasal Cannula 2.0 28 12/31/16 15:54 97.9 134 20 124/90 91 Room Air 12/31/16 15:33 28 12/31/16 15:33 117 17 96 Nasal Cannula 2.0 28 12/31/16 15:33 116 18 99 Nasal Cannula 2.0 28 Intake and Output 12/31/16 01/01/17 19:00 07:00 Intake Total 1000 ml 930 ml Output Total 600 ml Balance 400 ml 930 ml Intake Oral 1000 ml 780 ml IV Total 150 ml Output Urine Total 600 ml # Voids 4 Laboratory Tests 12/31/16 13:30: Urine Eosinophils None seen Height (Feet): 6 Height (Inches): 0.00 Weight (Pounds): 130 General Appearance: no apparent distress Objective other physical exam not changed KACEY BERNSTEIN Jan 01, 2017 11:44
[2017-01-01 11:46] VITALS: BP 122/68
--- NOTE | 2017-01-02 15:50 | Discharge Summary ---
Discharge Summary Hospital Course Date of Admission Dec 27, 2016 at 01:14 Date of Discharge Jan 01, 2017 at 12:07 Admitting Diagnosis dyspnea, copd exacerbation HPI Benjamin Ring is a 66 year old male who was admitted on Dec 27, 2016 at 01:14 for Dyspnea,Chronic Obstructive Pulmonary Disease Hospital Course [id number] Discharge Discharge Disposition Patient was discharged to Home () Discharge Diagnoses: Torie Henderson NP Jan 02, 2017 15:50
--- NOTE | 2017-01-03 03:38 | Discharge Summary 2 SIG ---
DATE OF ADMISSION: 12/27/2016 DATE OF DISCHARGE: 01/01/2017 CONSULTANTS: 1. Germain Molina M.D. 2. Dave Fowler D.P.M. 3. Fletcher Sabillon M.D. 4. Sergio Anaya M.D. BRIEF HOSPITAL COURSE: The patient is a 66-year-old male with multiple medical comorbidities including COPD, asthma, coronary artery disease, history of IA x2, presented with complaints of cough and shortness of breath. The called the paramedics and patient was brought to the [facility]. He woke up. He was already at [facility]. Next day, he was discharged. No treatment was rendered and he was not feeling any better. He continued to have shortness of breath and presented to [facility] ED for evaluation. His symptoms has been ongoing for the past three days with increased cough, congestion, wheezing and minimally productive cough. Initial chest x-ray was done at ED showed no acute cardiopulmonary disease but consistent with hyperinflation. He was admitted for acute COPD exacerbation. He was given IV hydration. Renal ultrasound was done in October showed normal kidney echogenicity. He has a history of seizure and was given Keppra. Continued on seizure precautions. Blood sugar was monitored and was given sliding scale of insulin. He was started on IV steroids and was given pulmonary toilet. Started on theophylline and was given antitussives. Dr. Reich was consulted and was given Levaquin. Dr. Anaya was consulted for evaluation of chest pain. EKG showed sinus tachycardia at rate of 127. Echocardiogram showed normal left ventricular systolic function. Troponin and cardiac enzymes were monitored. Pain appears to be atypical and similar to what he has had on prior occasions with no evidence of myonecrosis. Dr. Molina was consulted for evaluation of kidney injury secondary to ATN, which is multifactorial mainly secondary to diabetic and hypertensive nephropathy. Dr. Fowler was consulted. The patient came in with non-pressure lateral right ankle ulcer. Wound care was rendered. [facility]. He was eventually discharged home. FINAL DIAGNOSES: 1. Acute chronic obstructive pulmonary disease exacerbation. 2. Acute tubular necrosis multifactorial mainly secondary to diabetic and hypertensive nephropathy. 3. Coronary artery disease with previous myocardial infarction. 4. Seizure disorder. 5. Hypothyroidism. 6. Gastritis. 7. Hypertension. 8. Chronic hepatitis C virus. 9. Acute renal failure on chronic kidney disease stage 3. 10. Peripheral arterial disease. 11. Diabetes mellitus. 12. Old cerebrovascular accident. 13. Non-pressure lateral right ankle ulcer, present on admission. 14. Peripheral vascular disease. 15. Electrolyte abnormalities. 16. Hyperkalemia. 17. History of osteomyelitis of the right leg status post treatment. 18. Chronic back pain. Jessie Magana M.D. I have been assigned to dictate discharge summary on this account and I was not involved in the patient's management. Torie Henderson N.P. DR: CORNELIUS JOB#: [id number] CC: DAX
--- NOTE | 2017-01-07 12:39 | Consultation ---
DATE OF CONSULTATION: 12/31/2016 REQUESTING PHYSICIAN: Jessie Magana M.D. CONSULTING PHYSICIAN: Dave Fowler D.P.M. REASON FOR CONSULTATION: Chronic ulceration of the right lateral ankle. HISTORY OF PRESENT ILLNESS: The patient is a 66-year-old male, who was admitted to [facility] on 12/27/2016 for chronic obstructive pulmonary disease exacerbation. The patient is known to our service, has been noncompliant with outpatient followup visits after multiple times of calling and the patient states that he will be more compliant now. PAST MEDICAL HISTORY: Significant for COPD, asthma, coronary artery disease, history of myocardial infarction x2, history of osteomyelitis of the right ankle, hypertension, acute tubular necrosis, gastritis, history of shingles, acute coronary syndrome, and diabetes mellitus. PAST SURGICAL HISTORY: Percutaneous revascularization of the right lower extremity and surgical debridement of the right ankle. ALLERGIES: Allergic to egg, meperidine, morphine, and nitroglycerin. SOCIAL HISTORY: Noncontributory. FAMILY HISTORY: Noncontributory. REVIEW OF SYSTEMS: Unremarkable in 7-point review. PHYSICAL EXAMINATION: VITAL SIGNS: Temperature is 97.5 degrees, pulse is 112, blood pressure 123/62, and saturating 97% on two liters of nasal cannula. EXTREMITIES: Lower extremity physical examination, vascular, weakly palpable pedal pulses noted bilaterally. Feet are equally warm. No edema or cyanosis noted. DERMATOLOGICAL: Full-thickness ulceration of the right lateral ankle is noted. Granular wound base. No signs of acute infection. No bone or tendon is exposed. No other signs of ulcerations are noted bilaterally. MUSCULOSKELETAL: There is angular deformation of the right ankle. Otherwise, no other musculoskeletal deformities are noted. The patient is ambulatory LABORATORY DATA: White blood cell count is 12.9, hemoglobin and hematocrit is 9.9 and 31.6, platelet count is 250,000. Potassium 3.5, creatinine 1.4, and BUN is 23. C-reactive protein is 0.6. Albumin is 3.5. No lower extremity imaging is noted on this admission. ASSESSMENT: 1. Pressure ulcer, lateral right ankle. 2. Peripheral vascular disease. 3. Diabetes mellitus. PLAN: 1. Cultures of the wound taken today. 2. Agree with ID. Acute leukocytosis could be secondary to steroid use. 3. Continue wound care as ordered. 4. We will be seeing at wound center as an outpatient. Thank you for the courtesy of consultation Dr. Magana. Dave Fowler D.P.M. DR: Amandeep JOB#: [id number] CC:
== END 2017-01-01 12:07 | disposition home or self-care (01) | DRG 140 ==
LOC: ENRESERVDT → ENRESERVTM → EMR 23:59 → 2E 12-27 01:14 → EDBEDREQ 12-27 01:33 → 2E 12-27 06:23 → 4E 12-29 11:18
DX: J44.1 Chronic obstructive pulmonary disease with (acute) exacerbation (principal); N17.0 Acute kidney failure with tubular necrosis; M86.8X6 Other osteomyelitis, lower leg; L97.319 Non-pressure chronic ulcer of right ankle with unspecified severity; E11.21 Type 2 diabetes mellitus with diabetic nephropathy; B02.9 Zoster without complications; I25.2 Old myocardial infarction; I25.10 Atherosclerotic heart disease of native coronary artery without angina pectoris; E03.9 Hypothyroidism, unspecified; K29.70 Gastritis, unspecified, without bleeding; Z88.6 Allergy status to analgesic agent; Z88.8 Allergy status to other drugs, medicaments and biological substances; Z79.02 Long term (current) use of antithrombotics/antiplatelets; I12.9 Hypertensive chronic kidney disease with stage 1 through stage 4 chronic kidney disease, or unspecified chronic kidney disease; N18.9 Chronic kidney disease, unspecified; G89.29 Other chronic pain; M54.5 Low back pain; E86.0 Dehydration; B18.2 Chronic viral hepatitis C; I73.9 Peripheral vascular disease, unspecified; E87.5 Hyperkalemia; R07.89 Other chest pain; R00.0 Tachycardia, unspecified; Z91.19 Patient's noncompliance with other medical treatment and regimen; G40.89 Other seizures
CPT/HCPCS: 36415; 71010; 80048; 80053; 80061; 80076; 80299; 81001; 82550; 82553; 82977; 83036; 83605; 83690; 83735; 83880; 84100; 84300; 84443; 84484; 84550; 85025; 86140; 87040; 87070; 87205; 89050; 93005; 93306; 94640; 94664; 94760; C9399; J1815; J7620

== ENCOUNTER 2017-02-18 04:44 | Inpatient (IN) | payer MEDICARE, MEDICAID ==
[~2017-02-18] VITALS: Ht 185.4 cm; Wt 59.0 kg
[~2017-02-18 04:44] MED LIST changes: +ATORVASTATIN CA10 MG ORAL
[2017-02-18] MEDS ORDERED: DuoNeb 0.5-3(2.5)mg/3ml neb HHN ONE (05:00)
--- NOTE | 2017-02-18 05:04 | Emergency Room Report ---
History of Present Illness General Chief Complaint: Chest Pain Source: Patient Present Illness HPI Patient is a 66-year-old male presented after increased chest pain or shortness of breath. Patient gradual onset of symptoms. Patient prior history of COPD as well as coronary disease. The patient gradual onset of symptoms is with a non-productive cough. The patient reported having subjective fever. He denied any vomiting. He is not currently on dialysis but has prior history renal disease Allergies: Coded Allergies: EGG (Verified Allergy, Unknown, 09/22/15) MEPERIDINE (Verified Allergy, Unknown, 12/21/10) MORPHINE (Verified Allergy, Unknown, Shortness of Breath, 01/24/14) itching,shortness of breath,dyspnea NITROGLYCERIN (Verified Allergy, Unknown, 06/21/11) Patient History Past Medical History: see triage record Reviewed Nursing Documentation: PMH: Agreed, PSxH: Agreed Nursing Documentation-PMH Hx Cardiac Problems: Yes - LA Hx Pacemaker: No Hx Asthma: No Hx COPD: Yes Hx Diabetes: No Hx Cancer: No Hx Dialysis: No - kidney problems Hx Neurological Problems: Yes Hx Cerebrovascular Accident: No Hx Transient Ischemic Attacks: No Hx Alzheimer's Disease: No Hx Encephalitis: No Hx Seizures: Yes Hx Epilepsy: No Hx Multiple Sclerosis: No Hx Cerebral Palsy: No Hx Amyotrophic Lat Sclerosis: No Hx Guillian-De Lancey Syndrome: No Hx Paralysis: No Hx Peripheral Neuropathy: No Hx Spinal Cord Injury: No Hx Head Trauma: No Hx Traumatic Brain Injury: No Hx Memory Loss: No Hx Concentration Difficulty: No Hx Speech Problem: No Hx Tremors: Yes Hx Vertigo: No Hx Dizziness: No Hx Syncope: Yes Hx Headaches: No Hx Aphasia: No Hx Dysphasia: No Hx Numbness: No Hx Weakness: Yes Hx Fatigue: No Hx Neurologic Surgery: No Hx Brain Shunt: No Review of Systems All Other Systems: negative except mentioned in HPI Physical Exam Vital Signs Date Time Temp Pulse Resp B/P Pulse Ox O2 Delivery O2 Flow Rate FiO2 02/18/17 04:52 97.3 110 24 157/91 94 Room Air Sp02 EP Interpretation: reviewed, normal General Appearance: normal inspection, alert, GCS 15, mild distress, thin, Chronically Ill Head: atraumatic ENT: normal ENT inspection, hearing grossly normal, normal voice Neck: normal inspection, full range of motion, supple, no bony tend Respiratory: normal inspection, no retraction, wheezing, expiration Cardiovascular #1: regular rate, rhythm, no edema Gastrointestinal: normal inspection, normal bowel sounds, non tender, soft, no guarding, no hernia Genitourinary: no CVA tenderness Musculoskeletal: normal inspection, back normal, normal range of motion Neurologic: normal inspection, alert, oriented x3, responsive, television announcer III-XII nml as tested, speech normal Psychiatric: normal inspection, judgement/insight normal, mood/affect normal Skin: normal inspection, normal color, no rash Medical Decision Making Diagnostic Impression: Primary Impression: COPD exacerbation Additional Impression: Atypical chest pain ER Course Patient presented for chest pain.Differential diagnosis included but was not limited to acute coronary syndrome, pulmonary embolism, pneumonia, aortic dissection, shingles, pneumothorax, aortic dissection, esophageal rupture, pericarditis. Because of complexity of patient's case laboratory testing and imaging studies were ordered.Patient started on supplemental oxygen. Patient was given breathing treatments. Patient given aspirin empirically. Dr. diaz was contacted for inpatient management Labs Test 02/18/17 05:20 White Blood Count 10.2 K/UL (4.8-10.8) Red Blood Count 5.35 M/UL (4.70-6.10) Hemoglobin 14.3 G/DL (14.2-18.0) Hematocrit 46.9 % (42.0-52.0) Mean Corpuscular Volume 88 FL (80-99) Mean Corpuscular Hemoglobin 26.7 PG (27.0-31.0) Mean Corpuscular Hemoglobin Concent 30.5 G/DL (32.0-36.0) Red Cell Distribution Width 18.1 % (11.6-14.8) Platelet Count 304 K/UL (150-450) Mean Platelet Volume 6.8 FL (6.5-10.1) Neutrophils (%) (Auto) % (45.0-75.0) Lymphocytes (%) (Auto) % (20.0-45.0) Monocytes (%) (Auto) % (1.0-10.0) Eosinophils (%) (Auto) % (0.0-3.0) Basophils (%) (Auto) % (0.0-2.0) Prothrombin Time 10.6 SEC (9.30-11.50) Prothromb Time International Ratio 1.0 (0.9-1.1) Activated Partial Thromboplast Time 29 SEC (23-33) Sodium Level 139 mEQ/L (135-145) Potassium Level 5.0 mEQ/L (3.4-4.9) Chloride Level 95 mEQ/L (98-107) Carbon Dioxide Level 25 mEQ/L (20-30) Anion Gap 19 (5-15) Blood Urea Nitrogen 21 mg/dL (7-23) Creatinine 2.6 mg/dL (0.7-1.2) Estimat Glomerular Filtration Rate 29.9 mL/min (>60) Glucose Level 103 mg/dL (74-106) Lactic Acid Level 1.80 mmol/L (0.66-2.22) Calcium Level 9.1 mg/dL (8.6-10.2) Phosphorus Level 5.4 mg/dL (2.5-4.8) Magnesium Level 2.1 mg/dL (1.7-2.5) Total Bilirubin < 0.2 mg/dL (0.0-1.2) Aspartate Amino Transf (AST/SGOT) 27 U/L (5-40) Alanine Aminotransferase (ALT/SGPT) 22 U/L (3-41) Alkaline Phosphatase 112 U/L (40-129) Total Creatine Kinase 46 U/L (38-174) Creatine Kinase MB 2.2 ng/mL (< 6.7) Creatine Kinase MB Relative Index 4.7 Troponin I < 0.30 ng/mL (<=0.30) Pro-B-Type Natriuretic Peptide 329 pg/mL (0-125) Total Protein 8.4 g/dL (6.6-8.7) Albumin 4.3 g/dL (3.5-5.2) Globulin 4.1 g/dL Albumin/Globulin Ratio 1.0 (1.0-2.7) EKG Diagnostic Results Rate: tachycardiac Rhythm: NSR - 108 ST Segments: no acute changes ASA given to the pt in ED: Yes Rhythm Strip Diag. Results EP Interpretation: yes Rhythm: NSR, no PVC's, no ectopy, other Chest X-Ray Diagnostic Results EP Interpretation: Yes Findings: no consolidation, no effusion, no pneumothorax, no acute cardiopulmonary disease Number of Views: 1 Last Vital Signs Date Time Temp Pulse Resp B/P Pulse Ox O2 Delivery O2 Flow Rate FiO2 02/18/17 04:52 97.3 110 24 157/91 94 Room Air Status: unchanged Disposition: ADMITTED INPATIENT Condition: Serious Will Menezes Feb 18, 2017 05:04
[2017-02-18 05:17] VITALS: BP 120/76
[2017-02-18 05:29] LABS: MEAN CORPUSCULAR HEMOGLOBIN 26.7 PG (27.0-31.0); MEAN CORPUSCULAR HGB CONC 30.5 G/DL (32.0-36.0); MEAN CORPUSCULAR VOLUME 88 FL (80-99); MEAN PLATELET VOLUME 6.8 FL (6.5-10.1); PLATELET COUNT 304 K/UL (150-450); RED BLOOD COUNT 5.35 M/UL (4.70-6.10); RED CELL DISTRIBUTION WIDTH 18.1 % (11.6-14.8); WHITE BLOOD COUNT 10.2 K/UL (4.8-10.8)
[2017-02-18] MEDS ORDERED: HYDROmorphone 1mg/NS 50ml IVPB 50 ML IVPB ONE (05:30)
[2017-02-18 05:51] LABS: PROTHROMBIN TIME 10.6 SEC (9.30-11.50)
[2017-02-18 05:54] LABS: ALANINE AMINOTRANSFERASE 22 U/L (3-41); ANION GAP 19 (5-15); ASPARTATE AMINO TRANSFERASE 27 U/L (5-40); CALCIUM 9.1 mg/dL (8.6-10.2); CARBON DIOXIDE 25 mEQ/L (20-30); CHLORIDE 95 mEQ/L (98-107); CREATININE 2.6 mg/dL (0.7-1.2); GLOMERULAR FILTRATION RATE 29.9 mL/min (>60); HEMOLYSIS 19; MAGNESIUM 2.1 mg/dL (1.7-2.5); PHOSPHORUS 5.4 mg/dL (2.5-4.8); SODIUM 139 mEQ/L (135-145); TOTAL PROTEIN 8.4 g/dL (6.6-8.7)
[2017-02-18 05:57] LABS: TROPONIN I < 0.30 ng/mL (<=0.30)
[2017-02-18 06:06] LABS: CKMB 2.2 ng/mL (< 6.7)
[2017-02-18] MEDS ORDERED: Albuterol ud Inhalation HHN ONE (07:30)
[2017-02-18 08:00] VITALS: BP 114/86
[2017-02-18] MEDS ORDERED: HYDROmorphone 2mg tab ORAL PRN ×2 (08:30→13:22)
[2017-02-18] MEDS ORDERED: Enalaprilat 2.5mg/2ml Inj IV PRN (08:30)
[2017-02-18] MEDS ORDERED: Nitroglycerin Subl 0.4mg tab (Bottle Of 25) SL PRN (08:30)
[2017-02-18] MEDS ORDERED: Diltiazem 25mg/5ml IV PRN (08:30)
[2017-02-18] MEDS ORDERED: Miralax 17gm pkt ORAL PRN (08:30)
--- NOTE | 2017-02-18 08:31 | Diagnostic Imaging Report ---
Indications: Shortness of breath Technique: Portable AP chest Findings: Comparison: 12/30/2016 Cardiac silhouette remains normal in size. Pulmonary vasculature remains within normal limits. Lungs remain asymmetrically hyperinflated, right greater than left. Lungs and pleura remain clear. Mild calcification of the aortic arch, sternal wires and cardiomediastinal surgical clips again noted.. IMPRESSION: No evidence of acute disease, unchanged Stable chronic changes as described
[2017-02-18] MEDS: Metoprolol 50mg tab ORAL SCH ×3 (09:00→20:28)
[2017-02-18] MEDS ORDERED: ATORVASTATIN CA40 MG ORAL (09:24)
[2017-02-18] MEDS ORDERED: COLACE100 MG ORAL (09:27)
[2017-02-18] MEDS ORDERED: KEPPRA500 M4 ORAL (09:35)
[2017-02-18] MEDS ORDERED: METOPROLOL TART50 M1 ORAL (09:38)
[2017-02-18] MEDS ORDERED: PANTOPRAZOLE SO40 MG ORAL (09:40)
[2017-02-18] MEDS ORDERED: PREDNISONE20 MG ORAL (09:41)
[2017-02-18] MEDS ORDERED: TEMAZEPAM30 MG ORAL (09:44)
[2017-02-18 09:45] VITALS: BP 107/62
[2017-02-18] MEDS ORDERED: AMBIEN10 M1 ORAL (09:45)
[2017-02-18] MEDS ORDERED: ZOFRAN8 MG ORAL (09:46)
[2017-02-18] MEDS: Levothyroxine 25mcg tab ORAL SCH (09:46)
[2017-02-18] MEDS: Aspirin Baby 81mg ORAL SCH (09:46)
[2017-02-18] MEDS ORDERED: NORCO 10-325 T1 EACH ORAL (09:48)
[2017-02-18] MEDS: Heparin 5000 units/ml inj SUBQ SCH ×2 (09:49→20:26)
--- NOTE | 2017-02-18 10:59 | Cardiology Report ---
APPROVED REPORT EKG Measurement Heart [id number] VT 130P87 [id number] Sinus tachycardia Biatrial enlargement Anterior infarct, age undetermined Abnormal ECG
[2017-02-18 11:42] VITALS: BP 109/74
--- NOTE | 2017-02-18 14:00 | History and Physical ---
History of Present Illness General Date patient seen: Feb 18, 2017 Reason for Hospitalization: Chest Pain Present Illness HPI 66-year-old male with hx of CAD, COPD presented to ER with CC of chest pain and shortness of breath with a non-productive cough. The patient reported having subjective fever. He denied any vomiting. Allergies: Coded Allergies: EGG (Verified Allergy, Unknown, 09/22/15) MEPERIDINE (Verified Allergy, Unknown, 12/21/10) MORPHINE (Verified Allergy, Unknown, Shortness of Breath, 01/24/14) itching,shortness of breath,dyspnea NITROGLYCERIN (Verified Allergy, Unknown, hives, 02/18/17) Medication History Scheduled Amlodipine Besylate* (Amlodipine Besylate*), 10 MG ORAL DAILY, (Reported) Aspirin* (Aspirin Ec*), 325 MG ORAL DAILY, (Reported) Atorvastatin Calcium* (Atorvastatin Calcium*), 40 MG ORAL DAILY, (Reported) Clopidogrel Bisulfate* (Plavix*), 75 MG ORAL DAILY, (Reported) Levetiracetam (Keppra), 500 MG ORAL EVERY 12 HOURS, (Reported) Metoprolol Tartrate* (Metoprolol Tartrate*), 50 MG ORAL DAILY, (Reported) Pantoprazole* (Pantoprazole*), 40 MG ORAL DAILY, (Reported) Ranitidine Hcl* (Zantac*), 150 MG ORAL Q12HR Scheduled PRN Docusate Sodium* (Colace*), 100 MG ORAL DAILY PRN for Constipation, (Reported) Ondansetron Hcl* (Zofran*), 8 MG ORAL Q6H PRN for Nausea & Vomiting, (Reported) Prednisone* (Prednisone*), 20 MG ORAL DAILY PRN for Shortness of Breath, ( Reported) Temazepam* (Temazepam*), 30 MG ORAL BEDTIME PRN for Insomnia, (Reported) Zolpidem Tartrate* (Ambien*), 10 MG ORAL HS PRN for Insomnia, (Reported) Discontinued Medications Acetaminophen With Codeine (T#3) (Tylenol #3 Tab*), 1 TAB ORAL Q6H PRN Discontinued Reason: Pt stopped taking med Albuterol Sulfate* (Proair Hfa*), 1 PUFF INH Q6H Discontinued Reason: Pt stopped taking med Atorvastatin Calcium* (Lipitor*), 20 MG ORAL DAILY, (Reported) Discontinued Reason: Prescription changed Ferrous Sulfate* (Ferrous Sulfate*), 325 MG ORAL TWICE A DAY, (Reported) Discontinued Reason: Pt stopped taking med Hydrocodone Bit/Acetaminophen 10-325* ([place] 10-325*), 1 TAB ORAL Q6H PRN for For Pain, (Reported) Discontinued Reason: Pt stopped taking med Hydromorphone HCl (Dilaudid), 1 MG ORAL EVERY 6 HOURS PRN Discontinued Reason: Pt stopped taking med Levetiracetam (Keppra), 500 MG ORAL FOUR TIMES A DAY, (Reported) Discontinued Reason: Medication dose changed Levothyroxine Sodium* (Levothyroxine Sodium*), 25 MCG ORAL DAILY, (Reported) Discontinued Reason: Pt stopped taking med Omeprazole (Omeprazole), 20 MG ORAL DAILY, (Reported) Discontinued Reason: Medication dose changed Patient History Healthcare decision maker Resuscitation status Full Code Advanced Directive on File Past Medical/Surgical History Past Medical/Surgical History: (1) Nonhealing ulcer of right lower extremity (2) Osteomyelitis of right leg (3) HTN (hypertension) (4) DM (diabetes mellitus) Review of Systems All Other Systems: negative except mentioned in HPI Physical Exam General Appearance: cachetic Lines, tubes and drains: peripheral HEENT: normocephalic, atraumatic Neck: non-tender, normal alignment Respiratory/Chest: chest wall non-tender, lungs clear Cardiovascular/Chest: normal peripheral pulses, normal rate Abdomen: normal bowel sounds, non tender Genitourinary/Rectal: normal genital exam Extremities: normal range of motion Skin Exam: normal pigmentation Lymphatic: anterior cervical Last 24 Hour Vital Signs Date Time Temp Pulse Resp B/P Pulse Ox O2 Delivery O2 Flow Rate FiO2 02/18/17 12:00 98 02/18/17 11:42 97.0 97 20 109/74 95 Nasal Cannula 2.0 02/18/17 10:25 97.3 99 20 107/62 100 Room Air 0.5 02/18/17 09:45 99 20 107/62 100 Room Air 02/18/17 09:00 99 106/62 02/18/17 09:00 99 106/62 02/18/17 08:00 101 22 114/86 100 Room Air 02/18/17 07:42 99 20 100 Nasal Cannula 0.5 02/18/17 07:32 100 20 100 Nasal Cannula 0.5 02/18/17 06:48 97.3 02/18/17 06:48 97.3 02/18/17 05:32 109 20 100 Nasal Cannula 0.5 02/18/17 05:31 108 20 99 Nasal Cannula 0.5 02/18/17 05:30 110 18 Nasal Cannula 0.5 02/18/17 05:17 110 24 Nasal Cannula 0.5 02/18/17 05:17 97.3 112 18 120/76 100 Nasal Cannula 0.5 02/18/17 04:52 97.3 110 24 157/91 94 Room Air Laboratory Tests Test 02/18/17 05:20 White Blood Count 10.2 K/UL (4.8-10.8) Red Blood Count 5.35 M/UL (4.70-6.10) Hemoglobin 14.3 G/DL (14.2-18.0) Hematocrit 46.9 % (42.0-52.0) Mean Corpuscular Volume 88 FL (80-99) Mean Corpuscular Hemoglobin 26.7 PG (27.0-31.0) L Mean Corpuscular Hemoglobin Concent 30.5 G/DL (32.0-36.0) L Red Cell Distribution Width 18.1 % (11.6-14.8) H Platelet Count 304 K/UL (150-450) Mean Platelet Volume 6.8 FL (6.5-10.1) Neutrophils (%) (Auto) % (45.0-75.0) Lymphocytes (%) (Auto) % (20.0-45.0) Monocytes (%) (Auto) % (1.0-10.0) Eosinophils (%) (Auto) % (0.0-3.0) Basophils (%) (Auto) % (0.0-2.0) Prothrombin Time 10.6 SEC (9.30-11.50) Prothromb Time International Ratio 1.0 (0.9-1.1) Activated Partial Thromboplast Time 29 SEC (23-33) Sodium Level 139 mEQ/L (135-145) Potassium Level 5.0 mEQ/L (3.4-4.9) H Chloride Level 95 mEQ/L (98-107) L Carbon Dioxide Level 25 mEQ/L (20-30) Anion Gap 19 (5-15) H Blood Urea Nitrogen 21 mg/dL (7-23) Creatinine 2.6 mg/dL (0.7-1.2) H Estimat Glomerular Filtration Rate 29.9 mL/min (>60) Glucose Level 103 mg/dL (74-106) Lactic Acid Level 1.80 mmol/L (0.66-2.22) Calcium Level 9.1 mg/dL (8.6-10.2) Phosphorus Level 5.4 mg/dL (2.5-4.8) H Magnesium Level 2.1 mg/dL (1.7-2.5) Total Bilirubin < 0.2 mg/dL (0.0-1.2) Aspartate Amino Transf (AST/SGOT) 27 U/L (5-40) Alanine Aminotransferase (ALT/SGPT) 22 U/L (3-41) Alkaline Phosphatase 112 U/L (40-129) Total Creatine Kinase 46 U/L (38-174) Creatine Kinase MB 2.2 ng/mL (< 6.7) Creatine Kinase MB Relative Index 4.7 Troponin I < 0.30 ng/mL (<=0.30) Pro-B-Type Natriuretic Peptide 329 pg/mL (0-125) H Total Protein 8.4 g/dL (6.6-8.7) Albumin 4.3 g/dL (3.5-5.2) Globulin 4.1 g/dL Albumin/Globulin Ratio 1.0 (1.0-2.7) Height (Feet): 6 Height (Inches): 1.00 Weight (Pounds): 130 Medications Current Medications Medications (Trade) Dose Ordered Sig/Aminata Route PRN Reason Start Time Stop Time Status Last Admin Dose Admin Acetaminophen (Tylenol) 650 mg Q4H PRN ORAL FEVER 02/18/17 08:30 03/20/17 08:29 Albuterol/ Ipratropium (DuoNeb 0.5-3(2.5)mg/3ml) 3 ml EVERY 4 HOURS PRN HHN Shortness of Breath 02/18/17 08:30 02/23/17 08:29 Amlodipine Besylate (Norvasc) 10 mg DAILY ORAL 02/18/17 09:00 03/20/17 08:59 Aspirin (ASA) 162 mg DAILY ORAL 02/18/17 09:00 03/20/17 08:59 02/18/17 09:46 Clopidogrel Bisulfate (Plavix) 75 mg DAILY ORAL 02/18/17 09:00 03/20/17 08:59 02/18/17 09:47 Diltiazem HCl (Cardizem) 10 mg EVERY HOUR PRN IV heart rate more than 120, 02/18/17 08:30 03/20/17 08:29 Enalaprilat (Vasotec) 2.5 mg EVERY 6 HOURS PRN IV sbp more than 160 02/18/17 08:30 03/20/17 08:29 Heparin Sodium (Porcine) (Heparin 5000 units/ml) 5,000 units EVERY 12 HOURS SUBQ 02/18/17 09:00 03/20/17 08:59 02/18/17 09:49 Hydromorphone HCl (Dilaudid) 1 mg EVERY 6 HOURS PRN ORAL Moderate Pain (Pain Scale 4-6) 02/18/17 13:22 02/25/17 08:29 Hydromorphone HCl (Dilaudid) 2 mg Q3H PRN IVP Severe Pain (Pain Scale 7-10) 02/18/17 13:00 02/25/17 12:59 Levetiracetam (Keppra) 500 mg FOUR TIMES A DAY ORAL 02/18/17 09:00 03/20/17 08:59 02/18/17 12:15 Levothyroxine Sodium (Synthroid) 25 mcg DAILY@0630 ORAL 02/18/17 09:00 03/20/17 08:59 02/18/17 09:46 Metoprolol Tartrate (Lopressor) 50 mg Q12HR ORAL 02/18/17 09:00 03/20/17 08:59 Ondansetron HCl (Zofran) 4 mg Q6H PRN IVP Nausea & Vomiting 02/18/17 08:30 03/20/17 08:29 Pantoprazole (Protonix) 40 mg DAILY ORAL 02/18/17 09:00 03/20/17 08:59 02/18/17 09:46 Polyethylene Glycol (Miralax) 17 gm DAILYPRN PRN ORAL Constipation 02/18/17 08:30 03/20/17 08:29 Temazepam (Restoril) 15 mg HSPRN PRN ORAL Insomnia 02/18/17 08:30 02/25/17 08:29 Assessment/Plan Problem List: (1) ACS (acute coronary syndrome) ICD Codes: I24.9 - Acute coronary syndrome SNOMED: 523318893 (2) Bronchitis ICD Codes: J40 - Bronchitis SNOMED: 15793717 (3) Esophagitis ICD Codes: K20.9 - Esophagitis, unspecified SNOMED: 00123335 (4) HTN (hypertension) ICD Codes: I10 - Hypertension SNOMED: 51836883 (5) DM (diabetes mellitus) ICD Codes: E11.9 - Diabetes mellitus SNOMED: 39277500 (6) ATN (acute tubular necrosis) ICD Codes: N17.0 - Acute kidney failure with tubular necrosis SNOMED: 93259238 Assessment/Plan serial ekg, troponin, echo, cardiology to see check sputum, IV antibiotics GI evaluation for endoscopy ( possibly) TAI SWEENEY Feb 18, 2017 14:00
--- NOTE | 2017-02-18 15:24 | Consultation ---
Consult Note Consult Note Chief Complaint: Chest Pain Source: Patient Patient is a 66-year-old male presented after increased chest pain or shortness of breath. Patient gradual onset of symptoms. Patient prior history of COPD as well as coronary disease. The patient gradual onset of symptoms is with a non-productive cough. The patient reported having subjective fever. He denied any vomiting. He is not currently on dialysis but has prior history renal disease Allergies: EGG (Verified Allergy, Unknown, 09/22/15) MEPERIDINE (Verified Allergy, Unknown, 12/21/10) MORPHINE (Verified Allergy, Unknown, Shortness of Breath, 01/24/14) itching,shortness of breath,dyspnea NITROGLYCERIN (Verified Allergy, Unknown, 06/21/11) Hx Cardiac Problems: Yes - PR Hx COPD: Yes Hx Dialysis: No - kidney problems Hx Neurological Problems: Yes Hx Seizures: Yes Hx Tremors: Yes Hx Syncope: Yes Hx Weakness: Yes Assessment/Plan - ATN (acute tubular necrosis), multifactorial Mainly DM and HTN improved last Cr 1.4 now 2.5 - CAD with PR previously - SZ Disorder - COPD exacerbation - Hypothyroidism - Gastritis - ACS (acute coronary syndrome) - HTN (hypertension) - Nonhealing ulcer of right lower extremity - Osteomyelitis of right lower extremity Plan; UA slow hydrate- avoid nephrotoxics monitor renal parameters KACEY BERNSTEIN Feb 18, 2017 15:24
[2017-02-18 16:00] VITALS: BP 108/55
--- NOTE | 2017-02-18 18:49 | Cardiology Progress Note ---
Assessment/Plan Assessment/Plan [id number] Objective Last 24 Hour Vital Signs Date Time Temp Pulse Resp B/P Pulse Ox O2 Delivery O2 Flow Rate FiO2 02/18/17 16:00 97.3 91 18 108/55 Nasal Cannula 2.0 87 02/18/17 16:00 90 02/18/17 12:00 98 02/18/17 11:42 97.0 97 20 109/74 95 Nasal Cannula 2.0 02/18/17 10:25 97.3 99 20 107/62 100 Room Air 0.5 02/18/17 09:45 99 20 107/62 100 Room Air 02/18/17 09:00 99 106/62 02/18/17 09:00 99 106/62 02/18/17 08:00 101 22 114/86 100 Room Air 02/18/17 07:42 99 20 100 Nasal Cannula 0.5 02/18/17 07:32 100 20 100 Nasal Cannula 0.5 02/18/17 06:48 97.3 02/18/17 06:48 97.3 02/18/17 05:32 109 20 100 Nasal Cannula 0.5 02/18/17 05:31 108 20 99 Nasal Cannula 0.5 02/18/17 05:30 110 18 Nasal Cannula 0.5 02/18/17 05:17 110 24 Nasal Cannula 0.5 02/18/17 05:17 97.3 112 18 120/76 100 Nasal Cannula 0.5 02/18/17 04:52 97.3 110 24 157/91 94 Room Air Laboratory Tests Test 02/18/17 05:20 White Blood Count 10.2 K/UL (4.8-10.8) Red Blood Count 5.35 M/UL (4.70-6.10) Hemoglobin 14.3 G/DL (14.2-18.0) Hematocrit 46.9 % (42.0-52.0) Mean Corpuscular Volume 88 FL (80-99) Mean Corpuscular Hemoglobin 26.7 PG (27.0-31.0) L Mean Corpuscular Hemoglobin Concent 30.5 G/DL (32.0-36.0) L Red Cell Distribution Width 18.1 % (11.6-14.8) H Platelet Count 304 K/UL (150-450) Mean Platelet Volume 6.8 FL (6.5-10.1) Neutrophils (%) (Auto) % (45.0-75.0) Lymphocytes (%) (Auto) % (20.0-45.0) Monocytes (%) (Auto) % (1.0-10.0) Eosinophils (%) (Auto) % (0.0-3.0) Basophils (%) (Auto) % (0.0-2.0) Prothrombin Time 10.6 SEC (9.30-11.50) Prothromb Time International Ratio 1.0 (0.9-1.1) Activated Partial Thromboplast Time 29 SEC (23-33) Sodium Level 139 mEQ/L (135-145) Potassium Level 5.0 mEQ/L (3.4-4.9) H Chloride Level 95 mEQ/L (98-107) L Carbon Dioxide Level 25 mEQ/L (20-30) Anion Gap 19 (5-15) H Blood Urea Nitrogen 21 mg/dL (7-23) Creatinine 2.6 mg/dL (0.7-1.2) H Estimat Glomerular Filtration Rate 29.9 mL/min (>60) Glucose Level 103 mg/dL (74-106) Lactic Acid Level 1.80 mmol/L (0.66-2.22) Calcium Level 9.1 mg/dL (8.6-10.2) Phosphorus Level 5.4 mg/dL (2.5-4.8) H Magnesium Level 2.1 mg/dL (1.7-2.5) Total Bilirubin < 0.2 mg/dL (0.0-1.2) Aspartate Amino Transf (AST/SGOT) 27 U/L (5-40) Alanine Aminotransferase (ALT/SGPT) 22 U/L (3-41) Alkaline Phosphatase 112 U/L (40-129) Total Creatine Kinase 46 U/L (38-174) Creatine Kinase MB 2.2 ng/mL (< 6.7) Creatine Kinase MB Relative Index 4.7 Troponin I < 0.30 ng/mL (<=0.30) Pro-B-Type Natriuretic Peptide 329 pg/mL (0-125) H Total Protein 8.4 g/dL (6.6-8.7) Albumin 4.3 g/dL (3.5-5.2) Globulin 4.1 g/dL Albumin/Globulin Ratio 1.0 (1.0-2.7) AGUSTO STARKEY Feb 18, 2017 18:49
[2017-02-18 20:00] VITALS: BP 104/57
[2017-02-18 23:04] LABS: APPEARANCE,URINE CLEAR; KETONES,URINE NEGATIVE (NEGATIVE); LEUKOCYTE ESTERASE ,URINE NEGATIVE (NEGATIVE); NITRITE,URINE NEGATIVE (NEGATIVE); PH,URINE 5 (4.5-8.0); PROTEIN,URINE 1+ (NEGATIVE); UROBILINOGEN,URINE NORMAL MG/DL (0.0-1.0)
[2017-02-18 23:10] LABS: RBC,URINE 0-2 /HPF (0 - 0)
[2017-02-18 23:11] LABS: WBC,URINE 0-2 /HPF (0 - 0)
[2017-02-18 23:12] LABS: BACTERIA,URINE FEW /HPF
[2017-02-19] VITALS (7 sets, daily range): BP systolic 103–135; BP diastolic 63–87
[2017-02-19] MEDS ORDERED: guaiFENesin DM 100mg/5ml ORAL PRN (00:30)
[2017-02-19 06:29] LABS: MEAN CORPUSCULAR HEMOGLOBIN 26.8 PG (27.0-31.0); MEAN CORPUSCULAR HGB CONC 30.8 G/DL (32.0-36.0); MEAN CORPUSCULAR VOLUME 87 FL (80-99); MEAN PLATELET VOLUME 6.7 FL (6.5-10.1); PLATELET COUNT 160 K/UL (150-450); RED CELL DISTRIBUTION WIDTH 17.8 % (11.6-14.8); WHITE BLOOD COUNT 6.9 K/UL (4.8-10.8)
[2017-02-19 06:46] LABS: PROTHROMBIN TIME 10.5 SEC (9.30-11.50)
[2017-02-19 06:51] LABS: TROPONIN I < 0.30 ng/mL (<=0.30)
[2017-02-19 06:52] LABS: ALANINE AMINOTRANSFERASE 15 U/L (3-41); ANION GAP 15 (5-15); ASPARTATE AMINO TRANSFERASE 20 U/L (5-40); CALCIUM 8.4 mg/dL (8.6-10.2); CARBON DIOXIDE 23 mEQ/L (20-30); CHLORIDE 93 mEQ/L (98-107); CHOLESTEROL 149 mg/dL (< 200); CHOLESTEROL/HDL RATIO 2.9 (3.3-4.4); CREATININE 1.7 mg/dL (0.7-1.2); CRP QUANT 1.7 mg/dL (< 0.5); HEMOLYSIS 3; LDL CHOLESTEROL (CALC.) 83 mg/dL (60-99); POTASSIUM 5.6 mEQ/L (3.4-4.9); SODIUM 131 mEQ/L (135-145); TOTAL PROTEIN 6.4 g/dL (6.6-8.7)
[2017-02-19 06:53] LABS: MAGNESIUM 1.9 mg/dL (1.7-2.5); PHOSPHORUS 4.6 mg/dL (2.5-4.8); URIC ACID 7.8 mg/dL (3.0-7.5)
[2017-02-19] MEDS: Levothyroxine 25mcg tab ORAL SCH (06:59)
[2017-02-19 07:10] LABS: BAND NEUTROPHILS % (MANUAL) 0 % (0-8); BASOPHILS % (MANUAL) 2 % (0-2); EOSINOPHILS % (MANUAL) 7 % (0-3); LYMPHOCYTES % (MANUAL) 32 % (20-45); NEUTROPHILS % (MANUAL) 40 % (45-75); PLATELET ESTIMATE ADEQUATE; TOTAL CELLS COUNTED 100
[2017-02-19 07:11] LABS: ANISOCYTOSIS 1+; HYPOCHROMASIA 1+; PLATELET MORPHOLOGY NORMAL
[2017-02-19] MEDS: Metoprolol 50mg tab ORAL SCH ×3 (09:00→20:19)
[2017-02-19] MEDS: Aspirin Baby 81mg ORAL SCH (09:11)
[2017-02-19] MEDS: Heparin 5000 units/ml inj SUBQ SCH ×2 (09:14→20:20)
--- NOTE | 2017-02-19 11:32 | Wound Care Consultation ---
Wound Assessment Wound Assessment : Wound Number: #1 Wound Present on Admission: Yes New Wound: No Status Change of Wound: No Wound Location Body Site Modif: right Wound Location Body Site: malleolus/ankle Wound Type: other - non-healing open wound. Rolando Test: Does not Rolando Wound Thickness: Full Thickness Wound Length: 4.5 Wound Width: 2.5 Wound Depth: 0.3 Percent of Wound [place]/Red: 80 Percent of Wound Bed Yellow/Wh: 20 Wound Drainage Description: Serosanguineous Wound Drainage Amount: Moderate Wound Drainage Odor: None/Absent Tissue Surrounding Wound: Macerated Wound General Appearance: Reddened, Necrotic - 20% scattered yellow Wound Comment #1 Right malleolus non-healing wound. Recommendation -Local wound as ordered. -Turn and reposition. -Keep clean and dry. -Optimize nutrition. -Offload affected site. -Assess and notify MD for any change of condition. RAMA SIMON Feb 19, 2017 11:32
[2017-02-19] MEDS ORDERED: Promethazine/Codeine 5ml UD ORAL PRN (13:15)
--- NOTE | 2017-02-19 13:45 | General Progress Note ---
Assessment/Plan Status: stable Assessment/Plan - ATN (acute tubular necrosis), multifactorial Mainly DM and HTN improved last Cr 1.4 now 2.5 back to 1.7 - CAD with [place] previously - SZ Disorder - COPD exacerbation - Hypothyroidism - Gastritis - ACS (acute coronary syndrome) - HTN (hypertension) - Nonhealing ulcer of right lower extremity - Osteomyelitis of right lower extremity Plan; UA slow hydrate- trial 3% saline- Kayexelate avoid nephrotoxics monitor renal parameters Subjective ROS Limited/Unobtainable: No Constitutional: Reports: malaise Allergies: Coded Allergies: EGG (Verified Allergy, Unknown, 09/22/15) MEPERIDINE (Verified Allergy, Unknown, 12/21/10) MORPHINE (Verified Allergy, Unknown, Shortness of Breath, 01/24/14) itching,shortness of breath,dyspnea NITROGLYCERIN (Verified Allergy, Unknown, hives, 02/18/17) Objective Last 24 Hour Vital Signs Date Time Temp Pulse Resp B/P Pulse Ox O2 Delivery O2 Flow Rate FiO2 02/19/17 11:37 98.1 114 20 135/78 95 Nasal Cannula 2.0 02/19/17 09:00 101 101/70 02/19/17 09:00 101 101/70 02/19/17 07:54 97.0 115 20 105/80 95 Nasal Cannula 2.0 02/19/17 04:27 97.9 55 20 135/87 96 Nasal Cannula 2.0 02/19/17 03:47 99 02/19/17 01:15 98 103/63 96 Nasal Cannula 2.0 02/19/17 00:20 97.0 97 20 106/63 95 Nasal Cannula 2.0 02/19/17 00:00 92 02/18/17 23:04 97.3 02/18/17 20:28 96 104/57 02/18/17 20:00 90 02/18/17 20:00 97.3 96 18 104/57 95 Room Air 02/18/17 16:00 97.3 91 18 108/55 Nasal Cannula 2.0 87 02/18/17 16:00 90 Intake and Output 02/18/17 02/19/17 19:00 07:00 Intake Total 240 ml 240 ml Balance 240 ml 240 ml Intake Oral 240 ml 240 ml # Voids 1 Laboratory Tests 02/18/17 22:42: Urine Color Pale yellow, Urine Appearance Clear, Urine pH 5, Urine Specific [place] 1.015, Urine Protein 1+H, Urine Glucose (UA) Negative, Urine Ketones Negative, Urine Occult Blood Negative, Urine Nitrite Negative, Urine Bilirubin Negative, Urine Urobilinogen Normal, Urine Leukocyte Esterase Negative, Urine RBC 0-2H, Urine WBC 0-2, Urine Squamous Epithelial Cells None, Urine Bacteria Few 02/19/17 05:15: White Blood Count 6.9, Red Blood Count 4.30L, Hemoglobin 11.5L, Hematocrit 37.4L , Mean Corpuscular Volume 87, Mean Corpuscular Hemoglobin 26.8L, Mean Corpuscular Hemoglobin Concent 30.8L, Red Cell Distribution Width 17.8H, Platelet Count 160, Mean Platelet Volume 6.7, Neutrophils (%) (Auto) , Lymphocytes (%) (Auto) , Monocytes (%) (Auto) , Eosinophils (%) (Auto) , Basophils (%) (Auto) , Differential Total Cells Counted 100, Neutrophils % ( Manual) 40L, Lymphocytes % (Manual) 32, Monocytes % (Manual) 19H, Eosinophils % (Manual) 7H, Basophils % (Manual) 2, Band Neutrophils 0, Platelet Estimate Adequate, Platelet Morphology Normal, Hypochromasia 1+, Anisocytosis 1+, Prothrombin Time 10.5, Prothromb Time International Ratio 1.0, Activated Partial Thromboplast Time 30, Sodium Level 131L, Potassium Level 5.6H, Chloride Level 93L, Carbon Dioxide Level 23, Anion Gap 15, Blood Urea Nitrogen 19, Creatinine 1.7H, Estimat Glomerular Filtration Rate 49.0, Glucose Level 94, Uric Acid 7.8H, Calcium Level 8.4L, Phosphorus Level 4.6, Magnesium Level 1.9, Total Bilirubin < 0.2, Gamma Glutamyl Transpeptidase 30, Aspartate Amino Transf (AST/SGOT) 20, Alanine Aminotransferase (ALT/SGPT) 15, Alkaline Phosphatase 85, Total Creatine Kinase 41, Troponin I < 0.30, C-Reactive Protein, Quantitative 1.7H, Pro-B-Type Natriuretic Peptide 109, Total Protein 6.4L, Albumin 3.3L, Globulin 3.1, Albumin/Globulin Ratio 1.0, Triglycerides Level 70, Cholesterol Level 149, LDL Cholesterol 83, HDL Cholesterol 52, Cholesterol/HDL Ratio 2.9L, Thyroid Stimulating Hormone (TSH) 2.150 Height (Feet): 6 Height (Inches): 1.00 Weight (Pounds): 130 General Appearance: no apparent distress Objective no change in PE KACEY BERNSTEIN Feb 19, 2017 13:45
[2017-02-19] MEDS ORDERED: Sodium Polystyrene Sulfonate 15gm Powder ORAL ONE (14:00)
[2017-02-19] MEDS ORDERED: NaCl 3% 500ml 250 ML IV ONE (16:00)
--- NOTE | 2017-02-19 16:04 | Cardiology Report ---
APPROVED REPORT EKG Measurement Heart [id number] Normal sinus rhythm Possible Left atrial enlargement Borderline ECG
--- NOTE | 2017-02-19 16:19 | Cardiology Report ---
APPROVED REPORT EXAM: Two-dimensional and M-mode echocardiogram with Doppler and color Doppler. INDICATION Left ventricle function M-Mode DIMENSIONS IVSd0.9 (0.7-1.1cm)Left Atrium (MM)1.6 (1.6-4.0cm) LVDd3.9 (3.5-5.6cm)Aortic Root2.9 (2.0-3.7cm) PWd1.1 (0.7-1.1cm)Aortic Cusp Exc.1.8 (1.5-2.0cm) LVDs2.5 (2.5-4.0cm) PWs1.3 cm Technically difficult study due to poor acoustic windows. Limited study due to lack of apical windows. Normal left ventricular chamber size, systolic function. Abnormal septal motion. Left ventricular ejection fraction estimated to be 60-65 %. Mild left ventricular hypertrophy. No evidence of pericardial fat or effusion. Focal aortic valve sclerosis with adequate cusp excursion Thickened mitral valve leaflets with normal excursion. Mitral annulus and aortic root calcification. Normal tricuspid valve structure. IVC is normal in size with physiologic collapse. A color flow and spectral Doppler study was performed and revealed: No aortic regurgitation. Mild tricuspid regurgitation. Tricuspid systolic velocities suggests peak right ventricular systolic pressure of 27 mmHg
[2017-02-19] MEDS: DuoNeb 0.5-3(2.5)mg/3ml neb HHN PRN (16:32)
[2017-02-19 17:44] LABS: APPEARANCE,URINE CLEAR; KETONES,URINE NEGATIVE (NEGATIVE); LEUKOCYTE ESTERASE ,URINE NEGATIVE (NEGATIVE); NITRITE,URINE NEGATIVE (NEGATIVE); PH,URINE 5 (4.5-8.0); PROTEIN,URINE NEGATIVE (NEGATIVE); UROBILINOGEN,URINE NORMAL MG/DL (0.0-1.0)
[2017-02-19 17:50] LABS: BACTERIA,URINE OCCASIONAL /HPF; RBC,URINE 0-2 /HPF (0 - 0); WBC,URINE 0 /HPF (0 - 0)
--- NOTE | 2017-02-19 19:16 | Cardiology Progress Note ---
Assessment/Plan Assessment/Plan copd exacerbation bronchitis mild sinus tachy portably volume depletion renal insuf all trop neg still with sig wheezing tachy may be duet o copd exacerbation will have venous duplex echo normla wlal motion Subjective Cardiovascular: Reports: chest pain - when coaugh Respiratory: Reports: cough, shortness of breath, sputum - yellow sputum Gastrointestinal/Abdominal: Denies: abdominal pain Genitourinary: Denies: burning Objective Last 24 Hour Vital Signs Date Time Temp Pulse Resp B/P Pulse Ox O2 Delivery O2 Flow Rate FiO2 02/19/17 16:37 100 20 Room Air 21 02/19/17 16:26 96 18 Room Air 21 02/19/17 16:23 99 20 Room Air 21 02/19/17 16:00 102 02/19/17 16:00 97.0 99 20 113/66 94 Room Air 02/19/17 12:00 107 02/19/17 11:37 98.1 114 20 135/78 95 Nasal Cannula 2.0 02/19/17 09:00 101 101/70 02/19/17 09:00 101 101/70 02/19/17 08:00 107 02/19/17 07:54 97.0 115 20 105/80 95 Nasal Cannula 2.0 02/19/17 04:27 97.9 55 20 135/87 96 Nasal Cannula 2.0 02/19/17 03:47 99 02/19/17 01:15 98 103/63 96 Nasal Cannula 2.0 02/19/17 00:20 97.0 97 20 106/63 95 Nasal Cannula 2.0 02/19/17 00:00 92 02/18/17 23:04 97.3 02/18/17 20:28 96 104/57 02/18/17 20:00 90 02/18/17 20:00 97.3 96 18 104/57 95 Room Air General Appearance: no apparent distress, alert Neck: supple Cardiovascular: normal rate, tachycardia - midl Respiratory/Chest: expiratory wheezing, inspiratory wheezing Abdomen: non tender, soft Extremities: no swelling Intake and Output 02/18/17 02/19/17 19:00 07:00 Intake Total 240 ml 240 ml Balance 240 ml 240 ml Intake Oral 240 ml 240 ml # Voids 1 Laboratory Tests Test 02/18/17 22:42 02/19/17 05:15 02/19/17 16:10 Urine Color Pale yellow Pale yellow Urine Appearance Clear Clear Urine pH 5 (4.5-8.0) 5 (4.5-8.0) Urine Specific [place] 1.015 (1.005-1.035) 1.010 (1.005-1.035) Urine Protein 1+ (NEGATIVE) H Negative (NEGATIVE) Urine Glucose (UA) Negative (NEGATIVE) Negative (NEGATIVE) Urine Ketones Negative (NEGATIVE) Negative (NEGATIVE) Urine Occult Blood Negative (NEGATIVE) Negative (NEGATIVE) Urine Nitrite Negative (NEGATIVE) Negative (NEGATIVE) Urine Bilirubin Negative (NEGATIVE) Negative (NEGATIVE) Urine Urobilinogen Normal MG/DL (0.0-1.0) Normal MG/DL (0.0-1.0) Urine Leukocyte Esterase Negative (NEGATIVE) Negative (NEGATIVE) Urine RBC 0-2 /HPF (0 - 0) H 0-2 /HPF (0 - 0) H Urine WBC 0-2 /HPF (0 - 0) 0 /HPF (0 - 0) Urine Squamous Epithelial Cells None /LPF (NONE/OCC) None /LPF (NONE/OCC) Urine Bacteria Few /HPF (NONE) Occasional /HPF (NONE) White Blood Count 6.9 K/UL (4.8-10.8) Red Blood Count 4.30 M/UL (4.70-6.10) L Hemoglobin 11.5 G/DL (14.2-18.0) L Hematocrit 37.4 % (42.0-52.0) L Mean Corpuscular Volume 87 FL (80-99) Mean Corpuscular Hemoglobin 26.8 PG (27.0-31.0) L Mean Corpuscular Hemoglobin Concent 30.8 G/DL (32.0-36.0) L Red Cell Distribution Width 17.8 % (11.6-14.8) H Platelet Count 160 K/UL (150-450) Mean Platelet Volume 6.7 FL (6.5-10.1) Neutrophils (%) (Auto) % (45.0-75.0) Lymphocytes (%) (Auto) % (20.0-45.0) Monocytes (%) (Auto) % (1.0-10.0) Eosinophils (%) (Auto) % (0.0-3.0) Basophils (%) (Auto) % (0.0-2.0) Differential Total Cells Counted 100 Neutrophils % (Manual) 40 % (45-75) L Lymphocytes % (Manual) 32 % (20-45) Monocytes % (Manual) 19 % (1-10) H Eosinophils % (Manual) 7 % (0-3) H Basophils % (Manual) 2 % (0-2) Band Neutrophils 0 % (0-8) Platelet Estimate Adequate Platelet Morphology Normal Hypochromasia 1+ Anisocytosis 1+ Prothrombin Time 10.5 SEC (9.30-11.50) Prothromb Time International Ratio 1.0 (0.9-1.1) Activated Partial Thromboplast Time 30 SEC (23-33) Sodium Level 131 mEQ/L (135-145) L Potassium Level 5.6 mEQ/L (3.4-4.9) H Chloride Level 93 mEQ/L (98-107) L Carbon Dioxide Level 23 mEQ/L (20-30) Anion Gap 15 (5-15) Blood Urea Nitrogen 19 mg/dL (7-23) Creatinine 1.7 mg/dL (0.7-1.2) H Estimat Glomerular Filtration Rate 49.0 mL/min (>60) Glucose Level 94 mg/dL (74-106) Uric Acid 7.8 mg/dL (3.0-7.5) H Calcium Level 8.4 mg/dL (8.6-10.2) L Phosphorus Level 4.6 mg/dL (2.5-4.8) Magnesium Level 1.9 mg/dL (1.7-2.5) Total Bilirubin < 0.2 mg/dL (0.0-1.2) Gamma Glutamyl Transpeptidase 30 U/L (8-61) Aspartate Amino Transf (AST/SGOT) 20 U/L (5-40) Alanine Aminotransferase (ALT/SGPT) 15 U/L (3-41) Alkaline Phosphatase 85 U/L (40-129) Total Creatine Kinase 41 U/L (38-174) Troponin I < 0.30 ng/mL (<=0.30) C-Reactive Protein, Quantitative 1.7 mg/dL (< 0.5) H Pro-B-Type Natriuretic Peptide 109 pg/mL (0-125) Total Protein 6.4 g/dL (6.6-8.7) L Albumin 3.3 g/dL (3.5-5.2) L Globulin 3.1 g/dL Albumin/Globulin Ratio 1.0 (1.0-2.7) Triglycerides Level 70 mg/dL (< 150) Cholesterol Level 149 mg/dL (< 200) LDL Cholesterol 83 mg/dL (60-99) HDL Cholesterol 52 mg/dL (> 60) Cholesterol/HDL Ratio 2.9 (3.3-4.4) L Thyroid Stimulating Hormone (TSH) 2.150 uIU/mL (0.300-4.500) Urine Random Sodium 41 mmol/L AGUSTO STARKEY Feb 19, 2017 19:16
--- NOTE | 2017-02-19 22:25 | Pulmonology Progress Note ---
Assessment/Plan Problems: (1) ACS (acute coronary syndrome) (2) Bronchitis (3) Esophagitis (4) HTN (hypertension) (5) DM (diabetes mellitus) (6) ATN (acute tubular necrosis) Assessment/Plan continue respiratory treatment IV antibiotics antitussives. Subjective ROS Limited/Unobtainable: No Interval Events: still coughing Allergies: Coded Allergies: EGG (Verified Allergy, Unknown, 09/22/15) MEPERIDINE (Verified Allergy, Unknown, 12/21/10) MORPHINE (Verified Allergy, Unknown, Shortness of Breath, 01/24/14) itching,shortness of breath,dyspnea NITROGLYCERIN (Verified Allergy, Unknown, hives, 02/18/17) Objective Last 24 Hour Vital Signs Date Time Temp Pulse Resp B/P Pulse Ox O2 Delivery O2 Flow Rate FiO2 02/19/17 20:19 100 137/78 02/19/17 20:00 114 02/19/17 20:00 105 110 101 02/19/17 20:00 97.0 100 19 130/78 Nasal Cannula 2.0 98 02/19/17 16:37 100 20 Room Air 21 02/19/17 16:26 96 18 Room Air 21 02/19/17 16:23 99 20 Room Air 21 02/19/17 16:00 102 02/19/17 16:00 97.0 99 20 113/66 94 Room Air 02/19/17 12:00 107 02/19/17 11:37 98.1 114 20 135/78 95 Nasal Cannula 2.0 02/19/17 09:00 101 101/70 02/19/17 09:00 101 101/70 02/19/17 08:00 107 02/19/17 07:54 97.0 115 20 105/80 95 Nasal Cannula 2.0 02/19/17 04:27 97.9 55 20 135/87 96 Nasal Cannula 2.0 02/19/17 03:47 99 02/19/17 01:15 98 103/63 96 Nasal Cannula 2.0 02/19/17 00:20 97.0 97 20 106/63 95 Nasal Cannula 2.0 02/19/17 00:00 92 02/18/17 23:04 97.3 Intake and Output 02/18/17 02/19/17 19:00 07:00 Intake Total 240 ml 240 ml Balance 240 ml 240 ml Intake Oral 240 ml 240 ml # Voids 1 General Appearance: cachetic HEENT: normocephalic, atraumatic Respiratory/Chest: chest wall non-tender, lungs clear Cardiovascular: normal peripheral pulses, normal rate Abdomen: normal bowel sounds, soft, non tender 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 Lymphatic: no neck adenopathy Laboratory Tests 02/18/17 22:42: Urine Color Pale yellow, Urine Appearance Clear, Urine pH 5, Urine Specific [place] 1.015, Urine Protein 1+H, Urine Glucose (UA) Negative, Urine Ketones Negative, Urine Occult Blood Negative, Urine Nitrite Negative, Urine Bilirubin Negative, Urine Urobilinogen Normal, Urine Leukocyte Esterase Negative, Urine RBC 0-2H, Urine WBC 0-2, Urine Squamous Epithelial Cells None, Urine Bacteria Few 02/19/17 05:15: White Blood Count 6.9, Red Blood Count 4.30L, Hemoglobin 11.5L, Hematocrit 37.4L , Mean Corpuscular Volume 87, Mean Corpuscular Hemoglobin 26.8L, Mean Corpuscular Hemoglobin Concent 30.8L, Red Cell Distribution Width 17.8H, Platelet Count 160, Mean Platelet Volume 6.7, Neutrophils (%) (Auto) , Lymphocytes (%) (Auto) , Monocytes (%) (Auto) , Eosinophils (%) (Auto) , Basophils (%) (Auto) , Differential Total Cells Counted 100, Neutrophils % ( Manual) 40L, Lymphocytes % (Manual) 32, Monocytes % (Manual) 19H, Eosinophils % (Manual) 7H, Basophils % (Manual) 2, Band Neutrophils 0, Platelet Estimate Adequate, Platelet Morphology Normal, Hypochromasia 1+, Anisocytosis 1+, Prothrombin Time 10.5, Prothromb Time International Ratio 1.0, Activated Partial Thromboplast Time 30, Sodium Level 131L, Potassium Level 5.6H, Chloride Level 93L, Carbon Dioxide Level 23, Anion Gap 15, Blood Urea Nitrogen 19, Creatinine 1.7H, Estimat Glomerular Filtration Rate 49.0, Glucose Level 94, Uric Acid 7.8H, Calcium Level 8.4L, Phosphorus Level 4.6, Magnesium Level 1.9, Total Bilirubin < 0.2, Gamma Glutamyl Transpeptidase 30, Aspartate Amino Transf (AST/SGOT) 20, Alanine Aminotransferase (ALT/SGPT) 15, Alkaline Phosphatase 85, Total Creatine Kinase 41, Troponin I < 0.30, C-Reactive Protein, Quantitative 1.7H, Pro-B-Type Natriuretic Peptide 109, Total Protein 6.4L, Albumin 3.3L, Globulin 3.1, Albumin/Globulin Ratio 1.0, Triglycerides Level 70, Cholesterol Level 149, LDL Cholesterol 83, HDL Cholesterol 52, Cholesterol/HDL Ratio 2.9L, Thyroid Stimulating Hormone (TSH) 2.150 02/19/17 16:10: Urine Color Pale yellow, Urine Appearance Clear, Urine pH 5, Urine Specific [place] 1.010, Urine Protein Negative, Urine Glucose (UA) Negative, Urine Ketones Negative, Urine Occult Blood Negative, Urine Nitrite Negative, Urine Bilirubin Negative, Urine Urobilinogen Normal, Urine Leukocyte Esterase Negative , Urine RBC 0-2H, Urine WBC 0, Urine Squamous Epithelial Cells None, Urine Bacteria Occasional, Urine Random Sodium 41 Current Medications Medications (Trade) Dose Ordered Sig/Aminata Route PRN Reason Start Time Stop Time Status Last Admin Dose Admin Acetaminophen (Tylenol) 650 mg Q4H PRN ORAL FEVER 02/18/17 08:30 03/20/17 08:29 Albuterol/ Ipratropium (DuoNeb 0.5-3(2.5)mg/3ml) 3 ml EVERY 4 HOURS PRN HHN Shortness of Breath 02/18/17 08:30 02/23/17 08:29 02/19/17 16:32 Amlodipine Besylate (Norvasc) 2.5 mg DAILY ORAL 02/19/17 09:00 03/21/17 08:59 Aspirin (ASA) 162 mg DAILY ORAL 02/18/17 09:00 03/20/17 08:59 02/19/17 09:11 Clopidogrel Bisulfate (Plavix) 75 mg DAILY ORAL 02/18/17 09:00 03/20/17 08:59 02/19/17 09:10 Diltiazem HCl (Cardizem) 10 mg EVERY HOUR PRN IV heart rate more than 120, 02/18/17 08:30 03/20/17 08:29 Heparin Sodium (Porcine) (Heparin 5000 units/ml) 5,000 units EVERY 12 HOURS SUBQ 02/18/17 09:00 03/20/17 08:59 02/19/17 20:20 Hydromorphone HCl 2 mg 2 mg Q3H PRN IVP Severe Pain (Pain Scale 7-10) 02/18/17 13:00 02/25/17 12:59 02/19/17 21:16 Levetiracetam (Keppra) 500 mg FOUR TIMES A DAY ORAL 02/18/17 09:00 03/20/17 08:59 02/19/17 20:18 Levofloxacin (Levaquin) 100 ml @ 100 mls/hr Q48H IVPB 02/18/17 16:00 02/25/17 15:59 02/18/17 16:11 Levothyroxine Sodium (Synthroid) 25 mcg DAILY@0630 ORAL 02/18/17 09:00 03/20/17 08:59 02/19/17 06:59 Metoprolol Tartrate (Lopressor) 50 mg Q12HR ORAL 02/18/17 09:00 03/20/17 08:59 02/19/17 20:19 Ondansetron HCl (Zofran) 4 mg Q6H PRN IVP Nausea & Vomiting 02/18/17 08:30 03/20/17 08:29 Pantoprazole (Protonix) 40 mg BID ORAL 02/18/17 18:00 03/20/17 17:59 02/19/17 18:15 Polyethylene Glycol (Miralax) 17 gm DAILYPRN PRN ORAL Constipation 02/18/17 08:30 03/20/17 08:29 Promethazine HCl/ Codeine 5 ml 5 ml Q4H PRN ORAL For Cough 02/19/17 13:15 03/21/17 13:14 Sodium Chloride (Hypertonic Saline) 250 ml @ 30 mls/hr ONCE ONCE IV 02/19/17 16:00 02/20/17 00:19 02/19/17 16:17 Temazepam (Restoril) 15 mg HSPRN PRN ORAL Insomnia 02/18/17 08:30 02/25/17 08:29 TAI SWEENEY Feb 19, 2017 22:25
[2017-02-20 00:04] VITALS: BP 113/76
[2017-02-20 04:11] VITALS: BP 104/60
[2017-02-20] MEDS: Levothyroxine 25mcg tab ORAL SCH (06:26)
[2017-02-20 07:52] LABS: BASOPHILS % (AUTO) 2.4 % (0.0-2.0); EOSINOPHILS % (AUTO) 5.1 % (0.0-3.0); LYMPHOCYTES % (AUTO) 35.8 % (20.0-45.0); MEAN CORPUSCULAR HEMOGLOBIN 26.6 PG (27.0-31.0); MEAN CORPUSCULAR HGB CONC 30.1 G/DL (32.0-36.0); MEAN CORPUSCULAR VOLUME 88 FL (80-99); MONOCYTES % (AUTO) 18.1 % (1.0-10.0); NEUTROPHILS % (AUTO) 38.6 % (45.0-75.0); PLATELET COUNT 136 K/UL (150-450); RED BLOOD COUNT 4.14 M/UL (4.70-6.10); RED CELL DISTRIBUTION WIDTH 17.8 % (11.6-14.8); WHITE BLOOD COUNT 6.2 K/UL (4.8-10.8)
[2017-02-20 08:08] LABS: TROPONIN I < 0.30 ng/mL (<=0.30)
[2017-02-20 08:11] LABS: ALANINE AMINOTRANSFERASE 16 U/L (3-41); ALBUMIN/GLOBULIN RATIO 1.1 (1.0-2.7); ANION GAP 15 (5-15); ASPARTATE AMINO TRANSFERASE 20 U/L (5-40); CALCIUM 8.7 mg/dL (8.6-10.2); CARBON DIOXIDE 26 mEQ/L (20-30); CHLORIDE 100 mEQ/L (98-107); CREATININE 1.2 mg/dL (0.7-1.2); GLOMERULAR FILTRATION RATE > 60 mL/min (>60); HEMOLYSIS 3; SODIUM 141 mEQ/L (135-145); TOTAL PROTEIN 6.4 g/dL (6.6-8.7)
[2017-02-20 08:18] LABS: MAGNESIUM 1.9 mg/dL (1.7-2.5); PHOSPHORUS 4.3 mg/dL (2.5-4.8); URIC ACID 7.2 mg/dL (3.0-7.5)
[2017-02-20 08:34] VITALS: BP 105/70
[2017-02-20] MEDS: Metoprolol 50mg tab ORAL SCH ×2 (09:00→20:27)
[2017-02-20] MEDS: Heparin 5000 units/ml inj SUBQ SCH ×2 (09:00→20:27)
[2017-02-20] MEDS: Aspirin Baby 81mg ORAL SCH (09:20)
--- NOTE | 2017-02-20 10:38 | Diagnostic Imaging Report ---
Indication: DYSPNEA Technique: One view of the chest Comparison: 02/18/2017 Findings: Lungs and pleural spaces remain clear. Heart size is normal. There is evidence of prior CABG. No significant change Impression: No acute process
[2017-02-20 11:47] VITALS: BP 106/68
--- NOTE | 2017-02-20 12:21 | Pulmonology Progress Note ---
Assessment/Plan Problems: (1) ACS (acute coronary syndrome) (2) Bronchitis (3) Esophagitis (4) HTN (hypertension) (5) DM (diabetes mellitus) (6) ATN (acute tubular necrosis) Assessment/Plan improving slowly doens't want to leave cxr today is negative continue respiratory treatment antibiotics PO antitussives. Subjective Interval Events: still coughing Allergies: Coded Allergies: EGG (Verified Allergy, Unknown, 09/22/15) MEPERIDINE (Verified Allergy, Unknown, 12/21/10) MORPHINE (Verified Allergy, Unknown, Shortness of Breath, 01/24/14) itching,shortness of breath,dyspnea NITROGLYCERIN (Verified Allergy, Unknown, hives, 02/18/17) Objective Last 24 Hour Vital Signs Date Time Temp Pulse Resp B/P Pulse Ox O2 Delivery O2 Flow Rate FiO2 02/20/17 11:47 98.0 88 20 106/68 98 Nasal Cannula 2.0 02/20/17 09:05 96 02/20/17 09:00 90 02/20/17 09:00 74 105/70 02/20/17 09:00 74 105/70 02/20/17 08:34 98.1 74 20 105/70 95 Nasal Cannula 2.0 02/20/17 07:14 95 18 Room Air 21 02/20/17 04:11 97.7 94 20 104/60 94 Room Air 02/20/17 04:00 88 02/20/17 00:04 97.9 65 20 113/76 98 Room Air 02/20/17 00:00 92 02/19/17 20:19 100 137/78 02/19/17 20:00 114 02/19/17 20:00 105 110 101 02/19/17 20:00 97.0 100 19 130/78 Nasal Cannula 2.0 98 02/19/17 16:37 100 20 Room Air 21 02/19/17 16:26 96 18 Room Air 21 02/19/17 16:23 99 20 Room Air 21 02/19/17 16:00 102 02/19/17 16:00 97.0 99 20 113/66 94 Room Air Intake and Output 02/19/17 02/20/17 19:00 07:00 Intake Total 300 ml 430 ml Output Total 500 ml 600 ml Balance -200 ml -170 ml Intake Oral 240 ml 240 ml IV Total 60 ml 190 ml Output Urine Total 500 ml 600 ml General Appearance: cachetic HEENT: normocephalic, anicteric Respiratory/Chest: chest wall non-tender, normal breath sounds Cardiovascular: normal peripheral pulses, normal rate Abdomen: normal bowel sounds, soft, non tender Genitourinary: normal external genitalia Extremities: no cyanosis Skin: no rash 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, 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 gait Lymphatic: no neck adenopathy Microbiology Date/Time Source Procedure Growth Status 02/18/17 05:10 Blood Blood Culture - Preliminary NO GROWTH AFTER 48 HOURS Resulted 02/18/17 05:10 Blood Blood Culture - Preliminary NO GROWTH AFTER 48 HOURS Resulted Laboratory Tests 02/19/17 16:10: Urine Color Pale yellow, Urine Appearance Clear, Urine pH 5, Urine Specific [place] 1.010, Urine Protein Negative, Urine Glucose (UA) Negative, Urine Ketones Negative, Urine Occult Blood Negative, Urine Nitrite Negative, Urine Bilirubin Negative, Urine Urobilinogen Normal, Urine Leukocyte Esterase Negative , Urine RBC 0-2H, Urine WBC 0, Urine Squamous Epithelial Cells None, Urine Bacteria Occasional, Urine Random Sodium 41 02/20/17 07:16: White Blood Count 6.2, Red Blood Count 4.14L, Hemoglobin 11.0L, Hematocrit 36.5L , Mean Corpuscular Volume 88, Mean Corpuscular Hemoglobin 26.6L, Mean Corpuscular Hemoglobin Concent 30.1L, Red Cell Distribution Width 17.8H, Platelet Count 136L, Mean Platelet Volume 7.0, Neutrophils (%) (Auto) 38.6L, Lymphocytes (%) (Auto) 35.8, Monocytes (%) (Auto) 18.1H, Eosinophils (%) (Auto) 5.1H, Basophils (%) (Auto) 2.4H, Sodium Level 141, Potassium Level 5.0H, Chloride Level 100, Carbon Dioxide Level 26, Anion Gap 15, Blood Urea Nitrogen 15, Creatinine 1.2, Estimat Glomerular Filtration Rate > 60, Glucose Level 92, Calcium Level 8.7, Total Bilirubin < 0.2, Aspartate Amino Transf (AST/SGOT) 20, Alanine Aminotransferase (ALT/SGPT) 16, Alkaline Phosphatase 93, Troponin I < 0.30, Pro-B-Type Natriuretic Peptide 246H, Total Protein 6.4L, Albumin 3.4L, Globulin 3.0, Albumin/Globulin Ratio 1.1, Cortisol [Pending] 02/20/17 07:40: Uric Acid 7.2, Phosphorus Level 4.3, Magnesium Level 1.9 Current Medications Medications (Trade) Dose Ordered Sig/Aminata Route PRN Reason Start Time Stop Time Status Last Admin Dose Admin Acetaminophen (Tylenol) 650 mg Q4H PRN ORAL FEVER 02/18/17 08:30 03/20/17 08:29 Albuterol/ Ipratropium (DuoNeb 0.5-3(2.5)mg/3ml) 3 ml EVERY 4 HOURS PRN HHN Shortness of Breath 02/18/17 08:30 02/23/17 08:29 02/19/17 16:32 Amlodipine Besylate (Norvasc) 2.5 mg DAILY ORAL 02/19/17 09:00 03/21/17 08:59 Aspirin (ASA) 162 mg DAILY ORAL 02/18/17 09:00 03/20/17 08:59 02/20/17 09:20 Clopidogrel Bisulfate (Plavix) 75 mg DAILY ORAL 02/18/17 09:00 03/20/17 08:59 02/20/17 09:20 Diltiazem HCl (Cardizem) 10 mg EVERY HOUR PRN IV heart rate more than 120, 02/18/17 08:30 03/20/17 08:29 Heparin Sodium (Porcine) 5000 units 5,000 units EVERY 12 HOURS SUBQ 02/18/17 09:00 03/20/17 08:59 02/19/17 20:20 Hydromorphone HCl (Dilaudid) 2 mg Q3H PRN SUBQ Severe Pain (Pain Scale 7-10) 02/20/17 13:00 02/27/17 12:59 Levetiracetam (Keppra) 500 mg FOUR TIMES A DAY ORAL 02/18/17 09:00 03/20/17 08:59 02/20/17 09:20 Levofloxacin (Levaquin) 100 ml @ 100 mls/hr Q48H IVPB 02/18/17 16:00 02/25/17 15:59 02/18/17 16:11 Levothyroxine Sodium (Synthroid) 25 mcg DAILY@0630 ORAL 02/18/17 09:00 03/20/17 08:59 02/20/17 06:26 Metoprolol Tartrate (Lopressor) 50 mg Q12HR ORAL 02/18/17 09:00 03/20/17 08:59 02/19/17 20:19 Ondansetron HCl (Zofran) 4 mg Q6H PRN IVP Nausea & Vomiting 02/18/17 08:30 03/20/17 08:29 Pantoprazole (Protonix) 40 mg BID ORAL 02/18/17 18:00 03/20/17 17:59 02/20/17 09:20 Polyethylene Glycol (Miralax) 17 gm DAILYPRN PRN ORAL Constipation 02/18/17 08:30 03/20/17 08:29 Promethazine HCl/ Codeine (Phenergan with Codeine) 5 ml Q4H PRN ORAL For Cough 02/19/17 13:15 03/21/17 13:14 Temazepam (Restoril) 15 mg HSPRN PRN ORAL Insomnia 02/18/17 08:30 02/25/17 08:29 TAI SWEENEY Feb 20, 2017 12:21
--- NOTE | 2017-02-20 12:34 | General Progress Note ---
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 - COPD exacerbation - Hypothyroidism - Gastritis - ACS (acute coronary syndrome) - HTN (hypertension) - Nonhealing ulcer of right lower extremity - Osteomyelitis of right lower extremity Plan; UA stable from renal stand avoid nephrotoxics monitor renal parameters Subjective ROS Limited/Unobtainable: No Constitutional: Reports: malaise Allergies: Coded Allergies: EGG (Verified Allergy, Unknown, 09/22/15) MEPERIDINE (Verified Allergy, Unknown, 12/21/10) MORPHINE (Verified Allergy, Unknown, Shortness of Breath, 01/24/14) itching,shortness of breath,dyspnea NITROGLYCERIN (Verified Allergy, Unknown, hives, 02/18/17) Objective Last 24 Hour Vital Signs Date Time Temp Pulse Resp B/P Pulse Ox O2 Delivery O2 Flow Rate FiO2 02/20/17 11:47 98.0 88 20 106/68 98 Nasal Cannula 2.0 02/20/17 09:05 96 02/20/17 09:00 90 02/20/17 09:00 74 105/70 02/20/17 09:00 74 105/70 02/20/17 08:34 98.1 74 20 105/70 95 Nasal Cannula 2.0 02/20/17 07:14 95 18 Room Air 21 02/20/17 04:11 97.7 94 20 104/60 94 Room Air 02/20/17 04:00 88 02/20/17 00:04 97.9 65 20 113/76 98 Room Air 02/20/17 00:00 92 02/19/17 20:19 100 137/78 02/19/17 20:00 114 02/19/17 20:00 105 110 101 02/19/17 20:00 97.0 100 19 130/78 Nasal Cannula 2.0 98 02/19/17 16:37 100 20 Room Air 21 02/19/17 16:26 96 18 Room Air 21 02/19/17 16:23 99 20 Room Air 21 02/19/17 16:00 102 02/19/17 16:00 97.0 99 20 113/66 94 Room Air Intake and Output 02/19/17 02/20/17 19:00 07:00 Intake Total 300 ml 430 ml Output Total 500 ml 600 ml Balance -200 ml -170 ml Intake Oral 240 ml 240 ml IV Total 60 ml 190 ml Output Urine Total 500 ml 600 ml Laboratory Tests 02/19/17 16:10: Urine Color Pale yellow, Urine Appearance Clear, Urine pH 5, Urine Specific [place] 1.010, Urine Protein Negative, Urine Glucose (UA) Negative, Urine Ketones Negative, Urine Occult Blood Negative, Urine Nitrite Negative, Urine Bilirubin Negative, Urine Urobilinogen Normal, Urine Leukocyte Esterase Negative , Urine RBC 0-2H, Urine WBC 0, Urine Squamous Epithelial Cells None, Urine Bacteria Occasional, Urine Random Sodium 41 02/20/17 07:16: White Blood Count 6.2, Red Blood Count 4.14L, Hemoglobin 11.0L, Hematocrit 36.5L , Mean Corpuscular Volume 88, Mean Corpuscular Hemoglobin 26.6L, Mean Corpuscular Hemoglobin Concent 30.1L, Red Cell Distribution Width 17.8H, Platelet Count 136L, Mean Platelet Volume 7.0, Neutrophils (%) (Auto) 38.6L, Lymphocytes (%) (Auto) 35.8, Monocytes (%) (Auto) 18.1H, Eosinophils (%) (Auto) 5.1H, Basophils (%) (Auto) 2.4H, Sodium Level 141, Potassium Level 5.0H, Chloride Level 100, Carbon Dioxide Level 26, Anion Gap 15, Blood Urea Nitrogen 15, Creatinine 1.2, Estimat Glomerular Filtration Rate > 60, Glucose Level 92, Calcium Level 8.7, Total Bilirubin < 0.2, Aspartate Amino Transf (AST/SGOT) 20, Alanine Aminotransferase (ALT/SGPT) 16, Alkaline Phosphatase 93, Troponin I < 0.30, Pro-B-Type Natriuretic Peptide 246H, Total Protein 6.4L, Albumin 3.4L, Globulin 3.0, Albumin/Globulin Ratio 1.1, Cortisol [Pending] 02/20/17 07:40: Uric Acid 7.2, Phosphorus Level 4.3, Magnesium Level 1.9 Height (Feet): 6 Height (Inches): 1.00 Weight (Pounds): 130 General Appearance: no apparent distress Cardiovascular: normal rate Respiratory/Chest: decreased breath sounds Objective no change in PE KACEY BERNSTEIN Feb 20, 2017 12:34
[2017-02-20] MEDS: DuoNeb 0.5-3(2.5)mg/3ml neb HHN PRN (15:30)
[2017-02-20 16:00] VITALS: BP 121/72
[2017-02-20] MEDS ORDERED: NS 275ml ONE (17:08)
[2017-02-20] MEDS ORDERED: Tubing IV Secondary IV ONE (17:08)
--- NOTE | 2017-02-20 18:09 | Cardiology Progress Note ---
Assessment/Plan Assessment/Plan copd exacerbation bronchitis mild sinus tachy portably volume depletion renal insuf all trop neg still with wheezing not as tachy post hydration venous duplex neg for dvt echo normla [facility] motion Subjective Cardiovascular: Denies: chest pain - less , lightheadedness Respiratory: Reports: cough, shortness of breath Gastrointestinal/Abdominal: Denies: abdominal pain Genitourinary: Denies: burning Objective Last 24 Hour Vital Signs Date Time Temp Pulse Resp B/P Pulse Ox O2 Delivery O2 Flow Rate FiO2 02/20/17 16:00 97.9 95 20 121/72 97 Nasal Cannula 2.0 02/20/17 15:37 96 18 100 Room Air 21 02/20/17 15:30 92 18 99 Room Air 21 02/20/17 12:00 96 02/20/17 11:47 98.0 88 20 106/68 98 Nasal Cannula 2.0 02/20/17 09:05 96 02/20/17 09:00 90 02/20/17 09:00 74 105/70 02/20/17 09:00 74 105/70 02/20/17 08:34 98.1 74 20 105/70 95 Nasal Cannula 2.0 02/20/17 08:00 79 02/20/17 07:14 95 18 Room Air 21 02/20/17 04:11 97.7 94 20 104/60 94 Room Air 02/20/17 04:00 88 02/20/17 00:04 97.9 65 20 113/76 98 Room Air 02/20/17 00:00 92 02/19/17 20:19 100 137/78 02/19/17 20:00 114 02/19/17 20:00 105 110 101 02/19/17 20:00 97.0 100 19 130/78 Nasal Cannula 2.0 98 General Appearance: no apparent distress Neck: supple Cardiovascular: normal rate, regular rhythm Respiratory/Chest: expiratory wheezing Abdomen: normal bowel sounds, non tender, soft Extremities: no swelling Intake and Output 02/19/17 02/20/17 19:00 07:00 Intake Total 300 ml 430 ml Output Total 500 ml 600 ml Balance -200 ml -170 ml Intake Oral 240 ml 240 ml IV Total 60 ml 190 ml Output Urine Total 500 ml 600 ml Laboratory Tests Test 02/20/17 07:16 02/20/17 07:40 White Blood Count 6.2 K/UL (4.8-10.8) Red Blood Count 4.14 M/UL (4.70-6.10) L Hemoglobin 11.0 G/DL (14.2-18.0) L Hematocrit 36.5 % (42.0-52.0) L Mean Corpuscular Volume 88 FL (80-99) Mean Corpuscular Hemoglobin 26.6 PG (27.0-31.0) L Mean Corpuscular Hemoglobin Concent 30.1 G/DL (32.0-36.0) L Red Cell Distribution Width 17.8 % (11.6-14.8) H Platelet Count 136 K/UL (150-450) L Mean Platelet Volume 7.0 FL (6.5-10.1) Neutrophils (%) (Auto) 38.6 % (45.0-75.0) L Lymphocytes (%) (Auto) 35.8 % (20.0-45.0) Monocytes (%) (Auto) 18.1 % (1.0-10.0) H Eosinophils (%) (Auto) 5.1 % (0.0-3.0) H Basophils (%) (Auto) 2.4 % (0.0-2.0) H Sodium Level 141 mEQ/L (135-145) Potassium Level 5.0 mEQ/L (3.4-4.9) H Chloride Level 100 mEQ/L (98-107) Carbon Dioxide Level 26 mEQ/L (20-30) Anion Gap 15 (5-15) Blood Urea Nitrogen 15 mg/dL (7-23) Creatinine 1.2 mg/dL (0.7-1.2) Estimat Glomerular Filtration Rate > 60 mL/min (>60) Glucose Level 92 mg/dL (74-106) Calcium Level 8.7 mg/dL (8.6-10.2) Total Bilirubin < 0.2 mg/dL (0.0-1.2) Aspartate Amino Transf (AST/SGOT) 20 U/L (5-40) Alanine Aminotransferase (ALT/SGPT) 16 U/L (3-41) Alkaline Phosphatase 93 U/L (40-129) Troponin I < 0.30 ng/mL (<=0.30) Pro-B-Type Natriuretic Peptide 246 pg/mL (0-125) H Total Protein 6.4 g/dL (6.6-8.7) L Albumin 3.4 g/dL (3.5-5.2) L Globulin 3.0 g/dL Albumin/Globulin Ratio 1.1 (1.0-2.7) Cortisol Pending Uric Acid 7.2 mg/dL (3.0-7.5) Phosphorus Level 4.3 mg/dL (2.5-4.8) Magnesium Level 1.9 mg/dL (1.7-2.5) Microbiology Date/Time Source Procedure Growth Status 02/18/17 05:10 Blood Blood Culture - Preliminary NO GROWTH AFTER 48 HOURS Resulted 02/18/17 05:10 Blood Blood Culture - Preliminary NO GROWTH AFTER 48 HOURS Resulted AGUSTO STARKEY Feb 20, 2017 18:09
[2017-02-20 20:00] VITALS: BP 115/52
[2017-02-21] MEDS ORDERED: Diltiazem 25mg/5ml IV PRN
[2017-02-21 00:03] VITALS: BP 115/63
[2017-02-21] MEDS ORDERED: DuoNeb 0.5-3(2.5)mg/3ml neb HHN PRN (01:00)
[2017-02-21] MEDS ORDERED: Promethazine/Codeine 5ml UD ORAL PRN (01:15)
[2017-02-21 04:00] VITALS: BP 153/73
[2017-02-21] MEDS ORDERED: Levothyroxine 25mcg tab ORAL SCH (06:30)
[2017-02-21 08:00] VITALS: BP 139/74
[2017-02-21] MEDS ORDERED: Miralax 17gm pkt ORAL PRN (08:30)
--- NOTE | 2017-02-21 08:34 | Pulmonology Progress Note ---
Assessment/Plan Assessment/Plan ASSESSMENT atypical chest pain COPD exacerbation bronchitis ST 2 to dehydration dehydration acute renal failure, likely due to HTN and possibly dehydration HTN CAD with hx of IA seizure disorder hypothyroidism gastritis OM RLE, s/p Rx nonhealing wound R malleolus hyponatremia PLAN OF CARE MS floor o2 HHN sputum cx if able blood cx preliminary negative CXR c/w COPD empiric abx antitussive prn ECHO with preserved EF serial troponin negative cardio follows ruled out for acute IA Venous Duplex BLE negative s/p IVF nephro follows renal failure resolved creat down to normal stable from nephro standpoint local wound care as per wound nurse recommendation s/p prior Rx for OM continue ASA and Plavix BP management with CCB and BB, optimize as needed, stable for now seizure precautions, no seizure activity hile in the hospital, continue Keppra TSH WNL, continue levothyroxine DVT, GI prophylaxis pain management PT/OT eval and Rx dc home PT/OT dc in am home with HH Subjective Allergies: Coded Allergies: EGG (Verified Allergy, Unknown, 09/22/15) MEPERIDINE (Verified Allergy, Unknown, 12/21/10) MORPHINE (Verified Allergy, Unknown, Shortness of Breath, 01/24/14) itching,shortness of breath,dyspnea NITROGLYCERIN (Verified Allergy, Unknown, hives, 02/18/17) Subjective no leucocytosis, afebrile, on o2 via NC still congestion, intermittent SOB Objective Last 24 Hour Vital Signs Date Time Temp Pulse Resp B/P Pulse Ox O2 Delivery O2 Flow Rate FiO2 02/21/17 04:36 97.8 02/21/17 04:00 97.9 86 18 153/73 97 Nasal Cannula 2.0 02/21/17 00:03 97.8 82 19 115/63 97 02/20/17 20:27 92 141/72 02/20/17 20:11 98 18 Room Air 21 02/20/17 20:00 97.7 87 20 115/52 95 Nasal Cannula 2.0 02/20/17 16:00 97.9 95 20 121/72 97 Nasal Cannula 2.0 02/20/17 15:37 96 18 100 Room Air 21 02/20/17 15:30 92 18 99 Room Air 21 02/20/17 12:00 96 02/20/17 11:47 98.0 88 20 106/68 98 Nasal Cannula 2.0 02/20/17 09:05 96 02/20/17 09:00 90 02/20/17 09:00 74 105/70 02/20/17 09:00 74 105/70 02/20/17 08:34 98.1 74 20 105/70 95 Nasal Cannula 2.0 Intake and Output 02/20/17 02/21/17 19:00 07:00 Intake Total 580 ml 6 ml Output Total 500 ml 900 ml Balance 80 ml -894 ml Intake Oral 480 ml 6 ml IV Total 100 ml Output Urine Total 500 ml 900 ml # Voids 1 General Appearance: no acute distress, other - awake, alert, responsive, cachetic male , chronically ill looking HEENT: normocephalic, atraumatic Respiratory/Chest: chest wall non-tender, no respiratory distress, no accessory muscle use, decreased breath sounds, rhonchi - few isolated , expiratory wheezing - few expiratory wheezes Cardiovascular: normal peripheral pulses, normal rate, no JVD Abdomen: normal bowel sounds, soft, non tender, non distended Genitourinary: normal external genitalia Extremities: no edema, pedal pulses normal Skin: other - Rt malleolus nonhealing wound with minimal amount of serosanguinous drainage 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: abnormal gait, alert, oriented x 3, responsive Musculoskeletal: atrophy - BLE Current Medications Medications (Trade) Dose Ordered Sig/Aminata Route PRN Reason Start Time Stop Time Status Last Admin Dose Admin Acetaminophen (Tylenol) 650 mg Q4H PRN ORAL FEVER 02/21/17 00:30 03/23/17 00:29 Albuterol/ Ipratropium (DuoNeb 0.5-3(2.5)mg/3ml) 3 ml EVERY 4 HOURS PRN HHN Shortness of Breath 02/21/17 01:00 02/26/17 00:59 Amlodipine Besylate (Norvasc) 2.5 mg DAILY ORAL 02/21/17 09:00 03/23/17 08:59 Aspirin (ASA) 162 mg DAILY ORAL 02/21/17 09:00 03/23/17 08:59 Clopidogrel Bisulfate (Plavix) 75 mg DAILY ORAL 02/21/17 09:00 03/23/17 08:59 Diltiazem HCl (Cardizem) 10 mg EVERY HOUR PRN IV heart rate more than 120, 02/21/17 00:00 03/23/17 00:00 Heparin Sodium (Porcine) (Heparin 5000 units/ml) 5,000 units EVERY 12 HOURS SUBQ 02/21/17 09:00 03/23/17 08:59 Hydromorphone HCl (Dilaudid) 2 mg Q3H PRN SUBQ Severe Pain (Pain Scale 7-10) 02/21/17 01:00 02/28/17 00:59 02/21/17 07:01 Levetiracetam (Keppra) 500 mg FOUR TIMES A DAY ORAL 02/21/17 09:00 03/23/17 08:59 Levofloxacin (Levaquin) 100 ml @ 100 mls/hr Q48H IVPB 02/22/17 16:00 03/01/17 15:59 Levothyroxine Sodium (Synthroid) 25 mcg DAILY@0630 ORAL 02/21/17 06:30 03/23/17 06:29 02/21/17 07:00 Metoprolol Tartrate (Lopressor) 50 mg Q12HR ORAL 02/21/17 09:00 03/23/17 08:59 Ondansetron HCl (Zofran) 4 mg Q6H PRN IVP Nausea & Vomiting 02/21/17 02:30 03/23/17 02:29 Pantoprazole (Protonix) 40 mg BID ORAL 02/21/17 09:00 03/23/17 08:59 Polyethylene Glycol (Miralax) 17 gm DAILYPRN PRN ORAL Constipation 02/21/17 08:30 03/23/17 08:29 Promethazine HCl/ Codeine (Phenergan with Codeine) 5 ml Q4H PRN ORAL For Cough 02/21/17 01:15 03/23/17 01:14 Temazepam (Restoril) 15 mg HSPRN PRN ORAL Insomnia 02/21/17 08:30 02/28/17 08:29 Kristine Black NP ([facility]) Feb 21, 2017 08:34
[2017-02-21] MEDS ORDERED: Metoprolol 50mg tab ORAL SCH (09:00)
[2017-02-21] MEDS ORDERED: Heparin 5000 units/ml inj SUBQ SCH (09:00)
[2017-02-21] MEDS ORDERED: Aspirin Baby 81mg ORAL SCH (09:00)
[2017-02-21 12:00] VITALS: BP 128/70
--- NOTE | 2017-02-21 12:43 | General Progress Note ---
Assessment/Plan Status: stable Assessment/Plan - ATN (acute tubular necrosis), multifactorial Mainly DM and HTN improved last Cr 1.4 now 2.5 back to 1.7 - CAD with CA previously - SZ Disorder - COPD exacerbation - Hypothyroidism - Gastritis - ACS (acute coronary syndrome) - HTN (hypertension) - Nonhealing ulcer of right lower extremity - Osteomyelitis of right lower extremity Plan; no new labs UA stable from renal stand avoid nephrotoxics monitor renal parameters Subjective ROS Limited/Unobtainable: No Constitutional: Reports: malaise Allergies: Coded Allergies: EGG (Verified Allergy, Unknown, 09/22/15) MEPERIDINE (Verified Allergy, Unknown, 12/21/10) MORPHINE (Verified Allergy, Unknown, Shortness of Breath, 01/24/14) itching,shortness of breath,dyspnea NITROGLYCERIN (Verified Allergy, Unknown, hives, 02/18/17) Objective Last 24 Hour Vital Signs Date Time Temp Pulse Resp B/P Pulse Ox O2 Delivery O2 Flow Rate FiO2 02/21/17 09:00 74 139/76 02/21/17 08:59 74 139/76 02/21/17 04:36 97.8 02/21/17 04:00 97.9 86 18 153/73 97 Nasal Cannula 2.0 02/21/17 00:03 97.8 82 19 115/63 97 02/20/17 20:27 92 141/72 02/20/17 20:11 98 18 Room Air 21 02/20/17 20:00 97.7 87 20 115/52 95 Nasal Cannula 2.0 02/20/17 16:00 97.9 95 20 121/72 97 Nasal Cannula 2.0 02/20/17 15:37 96 18 100 Room Air 21 02/20/17 15:30 92 18 99 Room Air 21 Intake and Output 02/20/17 02/21/17 19:00 07:00 Intake Total 580 ml 6 ml Output Total 500 ml 900 ml Balance 80 ml -894 ml Intake Oral 480 ml 6 ml IV Total 100 ml Output Urine Total 500 ml 900 ml # Voids 1 Height (Feet): 6 Height (Inches): 1.00 Weight (Pounds): 130 General Appearance: no apparent distress Objective no change in PE KACEY BERNSTEIN Feb 21, 2017 12:43
[2017-02-21] MEDS ORDERED: Solu-MEDROL 125mg Inj IVP ONE (14:30)
[2017-02-21 16:00] VITALS: BP 138/70
--- NOTE | 2017-02-21 18:34 | Cardiology Report ---
APPROVED REPORT EKG Measurement Heart [id number] Normal sinus rhythm Normal ECG
--- NOTE | 2017-02-24 11:10 | Discharge Summary ---
Discharge Summary Hospital Course Date of Admission Feb 18, 2017 at 06:22 Date of Discharge Feb 21, 2017 at 17:48 Admitting Diagnosis exacerbation COPD HPI Benjamin Ring is a 66 year old male who was admitted on Feb 18, 2017 at 06:22 for Exacerbation Copd Hospital Course dc summary #[id number] Discharge Medications Continued Medications: Amlodipine Besylate* (Amlodipine Besylate*) 10 Mg Tablet 10 MG ORAL DAILY, TAB Aspirin* (Aspirin Ec*) 325 Mg Tablet.dr 325 MG ORAL DAILY, TAB Atorvastatin Calcium* (Atorvastatin Calcium*) 40 Mg Tablet 40 MG ORAL DAILY, TAB Clopidogrel Bisulfate* (Plavix*) 75 Mg Tablet 75 MG ORAL DAILY, TAB Docusate Sodium* (Colace*) 100 Mg Capsule 100 MG ORAL DAILY PRN for Constipation, CAP Levetiracetam (Keppra) 500 Mg Tablet 500 MG ORAL EVERY 12 HOURS Metoprolol Tartrate* (Metoprolol Tartrate*) 50 Mg Tablet 50 MG ORAL DAILY, TAB Patient pill bottle states 1 tablet BID Ondansetron Hcl* (Zofran*) 8 Mg Tablet 8 MG ORAL Q6H PRN for Nausea & Vomiting, TAB Pantoprazole* (Pantoprazole*) 40 Mg Tablet.dr 40 MG ORAL DAILY, TAB Ranitidine Hcl* (Zantac*) 150 Mg Tablet 150 MG ORAL Q12HR, #60 TAB Temazepam* (Temazepam*) 30 Mg Capsule 30 MG ORAL BEDTIME PRN for Insomnia, CAP Discharge Discharge Disposition Patient was discharged to Home (01) Discharge Diagnoses: Wayne (Jagdish)Kristine NP Feb 24, 2017 11:10
--- NOTE | 2017-02-25 00:38 | Discharge Summary 2 SIG ---
DATE OF ADMISSION: 02/18/2017 DATE OF DISCHARGE: 02/21/2017 REASON FOR ADMISSION: 66-year-old male with multiple chronic medical problems presented to emergency room with chest pain and shortness of breath. The patient reported a gradual onset of symptoms. The patient has a history of chronic obstructive pulmonary disease as well as coronary artery disease and myocardial infarction. The patient also reported nonproductive cough, subjective fevers. He denied nausea, vomiting, and abdominal pain. Upon presentation, he was afebrile, tachycardic - 110, tachypneic- 24, pulse oximetry was stable on the room air. No leukocytosis. Stable hemoglobin and hematocrit. Stable electrolytes, but creatinine was 2.6 and BUN 21. Lactic acid was within normal limits. Troponin was negative. EKG revealed normal sinus tachycardia - 110. No acute ischemic changes. Chest x-ray revealed no consolidation or effusion. No pneumothorax. No acute cardiopulmonary disease. The patient was admitted for further management. ADMITTING DIAGNOSES: 1. Chronic obstructive pulmonary disease exacerbation. 2. Atypical chest pain. 3. Acute kidney injury, possible acute tubular necrosis. HOSPITAL STAY: The patient was admitted to the telemetry floor. Both ehs manager and stock worker were consulted. Supplemental oxygen and pulmonary toilet were provided as needed. Sputum culture was not obtained. Cough was dry. Blood cultures were negative. Chest x-ray consistent with chronic obstructive pulmonary disease. The patient was on empiric antibiotics, short pulse of steroids and antitussive as needed. Echocardiogram revealed preserved ejection fraction. Serial troponin were negative. No ischemic changes on EKG. Cardio followed and rule out for acute myocardial infarction. Venous duplex of bilateral lower extremities was negative. Chest pain subsided The patient status post IV fluids. Bottom Hoop Driver followed. Acute renal failure resolved. Per ehs manager, acute renal failure was likely multifactorial secondary to hypertension and dehydration. Creatinine from initial 2.6 down to 1.2. Status post IV fluids. Electrolyte imbalances were addressed and corrected by ehs manager. Local wound care was provided as per wound care nurse recommendation to nonhealing wound. The patient had a prior history of osteomyelitis, status post treatment. Aspirin and Plavix were continued. Blood pressure was managed with calcium-channel rasta and beta-rsata , was stable. Seizure precaution were maintained. No seizure activity while in the hospital. Continue Keppra. TSH was within normal limits. Continue levothyroxine, same dose. DVT and GI prophylaxis provided. Pain management was provided. The patient was stable for discharge home. DISCHARGE MEDICATIONS: See medication reconciliation list. DISCHARGE DIAGNOSES: 1. Atypical chest pain likely secondary to chronic obstructive pulmonary disease exacerbation. 2. Chronic obstructive pulmonary disease exacerbation. 3. Bronchitis. 4. Sinus tachycardia secondary to dehydration. Of note, Glue Wheel Operator seen the patient and reported that mild tachycardia is likely secondary to dehydration, which resolved. 5. Dehydration, resolved. 6. Acute renal failure likely secondary to hypertension and possibly dehydration, resolved. 7. Hypertension. 8. Coronary artery disease with history of myocardial infarction. 9. Seizure disorder. 10. Hypothyroidism. 11. Osteomyelitis right lower extremity status post treatment. 12. Nonhealing wound right malleolus. 13. Hypernatremia. 14. Gastritis. DISCHARGE INSTRUCTIONS: Kinga was discharged home Follow up with the primary medical doctor. DISCHARGE MEDICATIONS: see medications reconciliation lsit Jessie Magana M.D. I have been assigned to dictate discharge summary on this account and I was not involved in the patient's management. Kristine Alvarezgeorgie N.PLive DR: WOLF JOB#: [id number] CC: DAX
--- NOTE | 2017-02-26 10:30 | Diagnostic Imaging Report ---
APPROVED REPORT CPT Code: 97913 Present Symptoms Shortness of breath BILATERAL: Imaging reveals a patent deep venous system bilaterally. There is no evidence of thrombus within the femoral, popliteal or tibial segments. The greater saphenous veins are also within normal limits. Doppler indicates normal spontaneous flow within these segments.
== END 2017-02-21 17:48 | disposition home or self-care (01) | DRG 140 ==
LOC: EMR 05:00 → 2E 06:22 → EDBEDREQ 07:44 → 4W 02-21 00:19
DX: J44.1 Chronic obstructive pulmonary disease with (acute) exacerbation (principal); N17.9 Acute kidney failure, unspecified; K20.9 Esophagitis, unspecified; I10 Essential (primary) hypertension; E11.9 Type 2 diabetes mellitus without complications; I25.10 Atherosclerotic heart disease of native coronary artery without angina pectoris; E03.9 Hypothyroidism, unspecified; R00.0 Tachycardia, unspecified; I25.2 Old myocardial infarction; E86.0 Dehydration; E87.1 Hypo-osmolality and hyponatremia; K29.70 Gastritis, unspecified, without bleeding; G40.909 Epilepsy, unspecified, not intractable, without status epilepticus
CPT/HCPCS: 36415; 71010; 80053; 80061; 80299; 81001; 81003; 82533; 82550; 82553; 82977; 83605; 83735; 83880; 84100; 84300; 84443; 84484; 84550; 85007; 85025; 85610; 85730; 86140; 87040; 93005; 93306; 93970; 94640; 94664; J7620

== ENCOUNTER 2017-05-12 23:53 | Inpatient (IN) | payer MEDICARE, MEDICAID ==
[~2017-05-12] VITALS: Ht 185.4 cm; Wt 53.5 kg
[~2017-05-12 23:53] MED LIST changes: +AMBIEN10 M1 ORAL; +KEPPRA500 M4 ORAL; +NORCO 10-325 T1 EACH ORAL; +PANTOPRAZOLE SO40 MG ORAL; +TEMAZEPAM30 MG ORAL; +ZOFRAN8 MG ORAL
[2017-05-13] MEDS ORDERED: Albuterol ud Inhalation HHN ONE (00:15)
[2017-05-13] MEDS ORDERED: Solu-MEDROL 125mg Inj IVP ONE (00:15)
[2017-05-13] MEDS ORDERED: DuoNeb 0.5-3(2.5)mg/3ml neb HHN PRN (00:15)
[2017-05-13] MEDS ORDERED: HYDROmorphone 1mg/ml Carpuject IVP ONE (00:15)
[2017-05-13] MEDS ORDERED: Ipratropium 0.02% Inh Soln 2.5ml UD HHN ONE (00:15)
[2017-05-13] MEDS ORDERED: Ketorolac 30mg Inj IV PRN (00:15)
[2017-05-13] MEDS ORDERED: LORazepam Inj 2mg/ml 1ml IV PRN (00:15)
[2017-05-13 00:47] VITALS: BP 142/102
[2017-05-13 02:01] LABS: APPEARANCE,URINE CLEAR; KETONES,URINE NEGATIVE (NEGATIVE); LEUKOCYTE ESTERASE ,URINE 1+ (NEGATIVE); NITRITE,URINE NEGATIVE (NEGATIVE); PH,URINE 6 (4.5-8.0); PROTEIN,URINE 2+ (NEGATIVE); UROBILINOGEN,URINE NORMAL MG/DL (0.0-1.0)
[2017-05-13 02:02] LABS: BASOPHILS % (AUTO) 1.5 % (0.0-2.0); EOSINOPHILS % (AUTO) 0.3 % (0.0-3.0); LYMPHOCYTES % (AUTO) 26.5 % (20.0-45.0); MEAN CORPUSCULAR HEMOGLOBIN 25.1 PG (27.0-31.0); MEAN CORPUSCULAR HGB CONC 30.7 G/DL (32.0-36.0); MEAN CORPUSCULAR VOLUME 82 FL (80-99); MEAN PLATELET VOLUME 6.3 FL (6.5-10.1); MONOCYTES % (AUTO) 6.8 % (1.0-10.0); NEUTROPHILS % (AUTO) 64.9 % (45.0-75.0); PLATELET COUNT 341 K/UL (150-450); RED BLOOD COUNT 6.25 M/UL (4.70-6.10); RED CELL DISTRIBUTION WIDTH 17.4 % (11.6-14.8); WHITE BLOOD COUNT 9.6 K/UL (4.8-10.8)
[2017-05-13 02:12] LABS: RBC,URINE 0-2 /HPF (0 - 0); SQUAMOUS EPITHELIAL CELL,UR FEW /LPF (NONE/OCC); WBC,URINE 0-2 /HPF (0 - 0)
[2017-05-13 02:17] LABS: CALCIUM 9.5 mg/dL (8.6-10.2); CREATININE 1.6 mg/dL (0.7-1.2); GLOMERULAR FILTRATION RATE 52.5 mL/min (>60); POTASSIUM 5.3 mEQ/L (3.4-4.9); TOTAL PROTEIN 8.4 g/dL (6.6-8.7)
--- NOTE | 2017-05-13 02:30 | Emergency Room Report ---
History of Present Illness General Chief Complaint: Dyspnea/Respdistress Source: Patient, Medical Record Present Illness HPI This is a 66-year-old male who was a smoker. He has a history of COPD. Also history of chronic pain. He presents with chief any shortness of breath and cough. Onset was 4 days ago. 3 days ago he went to [facility] and was admitted for pneumonia. He was there for 3 days he does get discharge today. He said that he denied any better. Did not get prescription for inhaler. He's not on any breathing treatment at home. No oxygen at home. He said his been coughing more. Now having chest pain. Pain is severe 10 out of 10. This is chronic for him. No nausea no vomiting. No diaphoresis. Worse with exertion. Better with rest. Allergies: Coded Allergies: EGG (Verified Allergy, Unknown, 09/22/15) MEPERIDINE (Verified Allergy, Unknown, 12/21/10) MORPHINE (Verified Allergy, Unknown, Shortness of Breath, 01/24/14) itching,shortness of breath,dyspnea NITROGLYCERIN (Verified Allergy, Unknown, hives, 02/18/17) Patient History Past Medical History: see triage record, old chart reviewed, COPD, pneumonia Past Surgical History: other Pertinent Family History: none Social History: Denies: smoking - History of Immunizations: other Reviewed Nursing Documentation: PMH: Agreed, PSxH: Agreed Nursing Documentation-PMH Hx Cardiac Problems: Yes - NC Hx Pacemaker: No Hx Asthma: No Hx COPD: Yes Hx Diabetes: No Hx Cancer: No Hx Dialysis: No - kidney problems Hx Neurological Problems: Yes Hx Cerebrovascular Accident: No Hx Transient Ischemic Attacks: No Hx Alzheimer's Disease: No Hx Encephalitis: No Hx Seizures: Yes Hx Epilepsy: No Hx Multiple Sclerosis: No Hx Cerebral Palsy: No Hx Amyotrophic Lat Sclerosis: No Hx Guillian-[place] Syndrome: No Hx Paralysis: No Hx Peripheral Neuropathy: No Hx Spinal Cord Injury: No Hx Head Trauma: No Hx Traumatic Brain Injury: No Hx Memory Loss: No Hx Concentration Difficulty: No Hx Speech Problem: No Hx Tremors: Yes Hx Vertigo: No Hx Dizziness: No Hx Syncope: Yes Hx Headaches: No Hx Aphasia: No Hx Dysphasia: No Hx Numbness: No Hx Weakness: Yes Hx Fatigue: No Hx Neurologic Surgery: No Hx Brain Shunt: No Review of Systems Eye: Denies: blurred vision, eye pain ENT: Denies: ear pain, nose congestion, throat swelling Respiratory: Reports: cough, shortness of breath Cardiovascular: Reports: chest pain, Denies: palpitations Gastrointestinal: Denies: abdominal pain, diarrhea, nausea, vomiting Musculoskeletal: Denies: back pain, joint pain Skin: Denies: rash Neurological: Denies: headache, numbness Endocrine: Denies: increased thirst, increased urine Hematologic/Lymphatic: Denies: easy bruising All Other Systems: negative except mentioned in HPI Physical Exam Vital Signs Date Time Temp Pulse Resp B/P Pulse Ox O2 Delivery O2 Flow Rate FiO2 05/13/17 00:10 97.7 114 25 156/104 98 Room Air vitals with tachycardia and hypertension Sp02 EP Interpretation: reviewed, normal General Appearance: no apparent distress, alert, thin Head: normocephalic, atraumatic Eyes: bilateral eye EOMI, bilateral eye PERRL ENT: hearing grossly normal, normal pharynx Neck: full range of motion, supple, no meningismus Respiratory: chest non-tender, decreased breath sounds, rhonchi Cardiovascular #1: regular rate, rhythm, no murmur Gastrointestinal: normal bowel sounds, non tender, no mass, no organomegaly, no bruit, non-distended Musculoskeletal: back normal, gait/station normal, normal range of motion Neurologic: alert, oriented x3 Psychiatric: mood/affect normal Skin: warm/dry Medical Decision Making Diagnostic Impression: Primary Impression: Respiratory distress Additional Impressions: Atypical chest pain COPD exacerbation Opioid dependence Qualified Codes: F11.20 - Opioid dependence, uncomplicated Proteinuria Qualified Codes: R80.9 - Proteinuria, unspecified ER Course Patient presents with COPD exacerbation. No evidence of pneumonia on blood work and chest x-ray. No evidence of ACS, PE, dissection to name a few. Will admit for further treatment. He felt better after breathing treatment and pain medication. Lab Results Impression labs are at baseline EKG Diagnostic Results EKG Time: 02:29 EP Interpretation: 105 Rate: normal Rhythm: NSR ST Segments: no acute changes Rhythm Strip Diag. Results Rhythm Strip Time: 02:29 EP Interpretation: yes Rate: 85 Chest X-Ray Diagnostic Results Chest X-Ray Ordered: Yes # of Views/Limited/Complete: 1 View Interpretation: no consolidation, no effusion, no pneumothorax, no acute cardiopulmonary disease Indication: Chest Pain Impression: Other - copd Date Electronically Signed: May 13, 2017 Time Electronically Signed: 02:30 Interpreting ER Physician: Juventino Sweeney MD Last Vital Signs Date Time Temp Pulse Resp B/P Pulse Ox O2 Delivery O2 Flow Rate FiO2 05/13/17 01:00 98 20 98 Room Air 05/13/17 00:47 97.7 142/102 Status: improved Disposition: ADMITTED INPATIENT Condition: Serious Referrals: TAI SWEENEY (PCP) JUVENTINO SWEENEY M.D. May 13, 2017 02:30
[2017-05-13 02:31] LABS: REFLEX LACTIC ACID YES OR NO YES; TROPONIN I < 0.30 ng/mL (<=0.30)
[2017-05-13] MEDS ORDERED: Piperacillin/Tazobactam 2.25 GM in D5W 55 ML IV SCH (06:00)
[2017-05-13] MEDS: Solu-MEDROL 125mg Inj IV SCH ×4 (06:03→23:00)
[2017-05-13 06:05] VITALS: BP 162/85
[2017-05-13 07:55] VITALS: BP 137/80
[2017-05-13] MEDS: Aspirin EC 325mg tab ORAL SCH (08:21)
[2017-05-13] MEDS: Theophylline ER 100mg ORAL SCH ×2 (08:21→22:52)
[2017-05-13] MEDS: Heparin 5000 units/ml inj SUBQ SCH ×2 (08:27→22:50)
[2017-05-13] MEDS: Zosyn 3.375gm q8h **Extended infusion IVPB SCH ×4 (09:37→16:35)
[2017-05-13 11:29] VITALS: BP 121/68
--- NOTE | 2017-05-13 13:28 | History and Physical ---
History of Present Illness General Date patient seen: May 13, 2017 Reason for Hospitalization: Dyspnea/Respdistress Present Illness HPI 66-year-old male with hx of COPD, emphysema, CAD, CABG, DM, chronic pain presented with chief complaint of shortness of breath and cough. Onset was 4 days ago. 3 days ago he went to [facility] and was admitted for pneumonia. He got discharged " without getting better" Now having chest pain. Pain is severe 10 out of 10. This is chronic for him. No nausea no vomiting. He is admitted to telemetry for further work up. Allergies: Coded Allergies: EGG (Verified Allergy, Unknown, 09/22/15) MEPERIDINE (Verified Allergy, Unknown, 12/21/10) MORPHINE (Verified Allergy, Unknown, Shortness of Breath, 01/24/14) itching,shortness of breath,dyspnea NITROGLYCERIN (Verified Allergy, Unknown, hives, 02/18/17) Medication History Scheduled Amlodipine Besylate* (Amlodipine Besylate*), 10 MG ORAL DAILY, (Reported) Aspirin* (Aspirin Ec*), 325 MG ORAL DAILY, (Reported) Atorvastatin Calcium* (Atorvastatin Calcium*), 40 MG ORAL DAILY, (Reported) Clopidogrel Bisulfate* (Plavix*), 75 MG ORAL DAILY, (Reported) Levetiracetam (Keppra), 500 MG ORAL EVERY 12 HOURS, (Reported) Metoprolol Tartrate* (Metoprolol Tartrate*), 50 MG ORAL DAILY, (Reported) Pantoprazole* (Pantoprazole*), 40 MG ORAL DAILY, (Reported) Ranitidine Hcl* (Zantac*), 150 MG ORAL Q12HR Scheduled PRN Docusate Sodium* (Colace*), 100 MG ORAL DAILY PRN for Constipation, (Reported) Ondansetron Hcl* (Zofran*), 8 MG ORAL Q6H PRN for Nausea & Vomiting, (Reported) Prednisone* (Prednisone*), 20 MG ORAL DAILY PRN for Shortness of Breath, ( Reported) Temazepam* (Temazepam*), 30 MG ORAL BEDTIME PRN for Insomnia, (Reported) Zolpidem Tartrate* (Ambien*), 10 MG ORAL HS PRN for Insomnia, (Reported) Patient History Healthcare decision maker Resuscitation status Do Not Resuscitate Advanced Directive on File Review of Systems Constitutional: Reports: malaise Respiratory: Reports: shortness of breath, sputum, stridor Cardiovascular: Reports: no symptoms Gastrointestinal: Reports: no symptoms Physical Exam General Appearance: cachetic Lines, tubes and drains: peripheral HEENT: normocephalic, atraumatic Neck: non-tender, normal alignment Respiratory/Chest: chest wall non-tender, rhonchi - left, rhonchi - right Cardiovascular/Chest: normal peripheral pulses, normal rate Abdomen: normal bowel sounds, non tender Genitourinary/Rectal: normal genital exam Extremities: normal range of motion Last 24 Hour Vital Signs Date Time Temp Pulse Resp B/P Pulse Ox O2 Delivery O2 Flow Rate FiO2 05/13/17 12:00 89 05/13/17 11:29 96.8 92 20 121/68 98 Room Air 05/13/17 08:21 92 137/80 05/13/17 08:00 95 05/13/17 07:55 97.7 92 20 137/80 96 Room Air 05/13/17 06:05 98.2 100 20 162/85 100 Room Air 05/13/17 06:00 100 05/13/17 01:00 98 20 98 Room Air 05/13/17 00:47 94 19 Room Air 05/13/17 00:47 97.7 97 20 142/102 99 Room Air 05/13/17 00:20 104 16 98 Room Air 05/13/17 00:19 104 16 Room Air 05/13/17 00:10 97.7 114 25 156/104 98 Room Air Intake and Output 05/12/17 05/13/17 19:00 07:00 Intake Total 100 ml Balance 100 ml Intake Oral 100 ml Laboratory Tests Test 05/13/17 01:42 05/13/17 03:20 White Blood Count 9.6 K/UL (4.8-10.8) Red Blood Count 6.25 M/UL (4.70-6.10) H Hemoglobin 15.7 G/DL (14.2-18.0) Hematocrit 51.2 % (42.0-52.0) Mean Corpuscular Volume 82 FL (80-99) Mean Corpuscular Hemoglobin 25.1 PG (27.0-31.0) L Mean Corpuscular Hemoglobin Concent 30.7 G/DL (32.0-36.0) L Red Cell Distribution Width 17.4 % (11.6-14.8) H Platelet Count 341 K/UL (150-450) Mean Platelet Volume 6.3 FL (6.5-10.1) L Neutrophils (%) (Auto) 64.9 % (45.0-75.0) Lymphocytes (%) (Auto) 26.5 % (20.0-45.0) Monocytes (%) (Auto) 6.8 % (1.0-10.0) Eosinophils (%) (Auto) 0.3 % (0.0-3.0) Basophils (%) (Auto) 1.5 % (0.0-2.0) Urine Color Pale yellow Urine Appearance Clear Urine pH 6 (4.5-8.0) Urine Specific [place] 1.015 (1.005-1.035) Urine Protein 2+ (NEGATIVE) H Urine Glucose (UA) Negative (NEGATIVE) Urine Ketones Negative (NEGATIVE) Urine Occult Blood Negative (NEGATIVE) Urine Nitrite Negative (NEGATIVE) Urine Bilirubin Negative (NEGATIVE) Urine Urobilinogen Normal MG/DL (0.0-1.0) Urine Leukocyte Esterase 1+ (NEGATIVE) H Urine RBC 0-2 /HPF (0 - 0) H Urine WBC 0-2 /HPF (0 - 0) Urine Squamous Epithelial Cells Few /LPF (NONE/OCC) Urine Bacteria None /HPF (NONE) Sodium Level 137 mEQ/L (135-145) Potassium Level 5.3 mEQ/L (3.4-4.9) H Chloride Level 99 mEQ/L (98-107) Carbon Dioxide Level 17 mEQ/L (20-30) L Anion Gap 21 (5-15) H Blood Urea Nitrogen 45 mg/dL (7-23) H Creatinine 1.6 mg/dL (0.7-1.2) H Estimat Glomerular Filtration Rate 52.5 mL/min (>60) Glucose Level 97 mg/dL (74-106) Lactic Acid Level 2.20 mmol/L (0.66-2.22) 1.60 mmol/L (0.66-2.22) Calcium Level 9.5 mg/dL (8.6-10.2) Total Bilirubin 0.2 mg/dL (0.0-1.2) Aspartate Amino Transf (AST/SGOT) 22 U/L (5-40) Alanine Aminotransferase (ALT/SGPT) 29 U/L (3-41) Alkaline Phosphatase 85 U/L (40-129) Troponin I < 0.30 ng/mL (<=0.30) Total Protein 8.4 g/dL (6.6-8.7) Albumin 4.3 g/dL (3.5-5.2) Globulin 4.1 g/dL Albumin/Globulin Ratio 1.0 (1.0-2.7) Urine Opiates Screen Positive (NEGATIVE) H Urine Barbiturates Screen Negative (NEGATIVE) Phencyclidine (PCP) Screen Negative (NEGATIVE) Urine Amphetamines Screen Negative (NEGATIVE) Urine Benzodiazepines Screen Negative (NEGATIVE) Urine Cocaine Screen Negative (NEGATIVE) Urine Marijuana (THC) Screen Negative (NEGATIVE) Height (Feet): 6 Height (Inches): 1.00 Weight (Pounds): 118 Medications Current Medications Medications (Trade) Dose Ordered Sig/Aminata Route PRN Reason Start Time Stop Time Status Last Admin Dose Admin Albuterol/ Ipratropium (DuoNeb 0.5-3(2.5)mg/3ml) 3 ml Q4H PRN HHN dyspnea 05/13/17 00:15 05/18/17 00:14 Amlodipine Besylate (Norvasc) 10 mg DAILY ORAL 05/13/17 09:00 06/12/17 08:59 05/13/17 08:21 Aspirin (Ecotrin) 325 mg DAILY ORAL 05/13/17 09:00 06/12/17 08:59 05/13/17 08:21 Atorvastatin Calcium (Lipitor) 40 mg DAILY ORAL 05/13/17 09:00 06/12/17 08:59 05/13/17 08:21 Clopidogrel Bisulfate (Plavix) 75 mg DAILY ORAL 05/13/17 09:00 06/12/17 08:59 05/13/17 08:21 Dextrose (Dextrose 50%) STAT PRN IV Hypoglycemia 05/13/17 00:15 06/12/17 00:14 Heparin Sodium (Porcine) (Heparin 5000 units/ml) 5,000 units EVERY 12 HOURS SUBQ 05/13/17 09:00 06/12/17 08:59 05/13/17 08:27 Hydromorphone HCl 2 mg 2 mg Q3H PRN IVP pain 7-10 05/13/17 00:15 05/20/17 00:14 05/13/17 12:26 Ketorolac Tromethamine (Toradol 30mg) 30 mg EVERY 8 HOURS PRN IV moderate pain 4-6 05/13/17 00:15 05/18/17 00:14 Levetiracetam (Keppra) 500 mg EVERY 12 HOURS ORAL 05/13/17 09:00 06/12/17 08:59 05/13/17 08:21 Lorazepam (Ativan 2mg/ml 1ml) 0.5 mg Q4H PRN IV For Anxiety 05/13/17 00:15 05/20/17 00:14 Methylprednisolone Sodium Succinate (Solu-MEDROL) 60 mg EVERY 6 HOURS IV 05/13/17 06:00 06/12/17 05:59 05/13/17 11:47 Metoprolol Tartrate (Lopressor) 50 mg Q12HR ORAL 05/13/17 21:00 06/12/17 20:59 Ondansetron HCl (Zofran) 4 mg Q6H PRN IVP Nausea & Vomiting 05/13/17 00:15 06/12/17 00:14 Piperacillin Sod/ Tazobactam Sod/ Dextrose (Zosyn/D5W) 110 ml @ 27.5 mls/hr Q8H IVPB 05/13/17 09:00 05/20/17 08:59 05/13/17 09:37 Temazepam (Restoril) 15 mg HSPRN PRN ORAL Insomnia 05/13/17 00:15 05/20/17 00:14 Theophylline (Wilfrido-Dur) 100 mg EVERY 12 HOURS ORAL 05/13/17 09:00 06/12/17 08:59 05/13/17 08:21 Assessment/Plan Problem List: (1) COPD exacerbation ICD Codes: J44.1 - Obstructive chronic bronchitis with exacerbation SNOMED: 702710881 (2) Atypical chest pain ICD Codes: R07.89 - Other chest pain SNOMED: 658656789 (3) DM (diabetes mellitus) ICD Codes: E11.9 - Diabetes mellitus SNOMED: 15004635 (4) Intractable back pain ICD Codes: M54.9 - Dorsalgia, unspecified SNOMED: 269598116 Assessment/Plan iv abx/ steroids check sputum podiatry and ID for evaluation of diabetic foot ulcer serial ekg, troponin, Cardiac w/u. TAI SWEENEY May 13, 2017 13:28
--- NOTE | 2017-05-13 14:23 | Consultation ---
Consult Note Consult Note Cardiology full note dictated #[id number] ANEESH PAREDES May 13, 2017 14:23
--- NOTE | 2017-05-13 14:56 | Cardiology Report ---
APPROVED REPORT EKG Measurement Heart [id number] 120P88 [id number] QAs228 Sinus tachycardia Biatrial enlargement Abnormal ECG
--- NOTE | 2017-05-13 15:29 | Diagnostic Imaging Report ---
Indication: SOB Technique: One view of the chest Comparison: 02/20/2017 Findings: The lungs are hyperinflated. Lungs and pleural spaces are clear. Heart size is normal. There is evidence of prior CABG. No significant change Impression: COPD changes. No acute process
[2017-05-13 15:43] VITALS: BP 135/73
--- NOTE | 2017-05-13 18:25 | Diagnostic Imaging Report ---
Indication: DYSPNEA Technique: One view of the chest Comparison: 14 hours earlier Findings: Ovary hyperinflated. Lungs and pleural space are clear. Heart size is normal. Median sternotomy sutures again demonstrated. No significant change Impression: No acute process
[2017-05-13 20:00] VITALS: BP 148/81
--- NOTE | 2017-05-13 22:30 | Consultation ---
DATE OF CONSULTATION: 05/13/2017 CARDIOLOGY CONSULT This is in coverage for Dr. Anaya. CONSULTING PHYSICIAN: Citlalli Ivory M.D. REFERRING PHYSICIAN: Jessie Magana M.D. REASON FOR CONSULT: Chest pain. HISTORY OF PRESENT ILLNESS: The patient is a 66-year-old, man with a history of COPD, previous tobacco use, type 2 diabetes, hypertension, and coronary artery disease with remote history of coronary artery bypass graft surgery as well as coronary stent placement (details not currently available). He states that he has been ill for the past several days with cough and increasing dyspnea. He presented 5 days ago to [facility], was treated in the emergency room with inhalers. He states that he was diagnosed with pneumonia and was discharged. He complains now of increasing cough without sputum production, tactile fever, and chills as well as severe left-sided chest pain. Cardiology evaluation was requested given his history of coronary artery disease and current chest pain. The pain is reproducible with movement, nonpleuritic. There is no radiation to arms, neck, or jaw. He has not had nausea, vomiting, or diaphoresis. MEDICATIONS: Currently metoprolol 50 mg q.12 h., Dilaudid p.r.n., amlodipine 10 mg daily, aspirin 325 mg daily, atorvastatin 40 mg daily, Plavix 75 mg daily, Keppra 500 mg q.12 h., subcutaneous heparin 5000 units q.12 h., Wilfrido-Dur 100 mg every 12 hours, Zosyn 3.375 g IV q.8 h., Solu-Medrol 60 mg IV q.6 h., DuoNeb nebulizer q.4 h. p.r.n., and Toradol p.r.n. ALLERGIES: Demerol, morphine, and nitroglycerin. PAST MEDICAL HISTORY: As noted above. Also history of hepatitis C and hypertension. SOCIAL HISTORY: The patient has a remote history of tobacco use, but stopped smoking in 2009. He denies alcohol or drug use. PHYSICAL EXAMINATION: VITAL SIGNS: Blood pressure is 121/68, pulse 92 and regular, respirations 20, and afebrile. GENERAL: Alert, thin, elderly appearing, male, in no acute distress. HEENT: Normocephalic and atraumatic. Sclerae anicteric. Oral mucosa are moist. NECK: Supple. There is no adenopathy. No jugular venous distention. Carotid pulses are 2+ without bruits. LUNGS: Breath sounds are diminished bilaterally. No rales, wheezes, or rhonchi. HEART: Regular rate and rhythm. Prominent S1 and S2. PMI felt in the fourth intercostal space at the midclavicular line. No murmurs, S3 or S4. ABDOMEN: Soft and nontender. No organomegaly. EXTREMITIES: There is a gauze dressing over the right ankle. No peripheral edema. LABORATORY AND DIAGNOSTIC DATA: Hemoglobin 15.7, white blood count 9600, and platelets 341,000. Potassium 5.3, BUN 45, creatinine 1.6. Troponin less than 0.3. EKG shows sinus tachycardia at a rate of 110 beats per minute, biatrial enlargement, no ST-segment or T-wave changes. Chest x-ray is pending. ASSESSMENT AND RECOMMENDATIONS: The patient is a 66-year-old, man with multiple chronic medical problems who was admitted with increasing cough, dyspnea, and left-sided chest pain over the past several days. He does not appear with any ischemic ST-segment changes to suggest an acute coronary syndrome. In addition, his troponin levels have been negative. I suspect his pain is due to either a musculoskeletal cause or pleuritis with his current pulmonary infection. I will obtain an echo to reassess left ventricular function and wall motion as well as to rule out pericardial effusion. We would continue his current medications including amlodipine for blood pressure and aspirin, Plavix, and atorvastatin for coronary artery disease. We would continue metoprolol for now, though if the patient develops wheezing, we would consider changing to atenolol or calcium channel rasta. Citlalli Ivory M.D. DR: CIELO JOB#: [id number] CC:
[2017-05-13] MEDS: Metoprolol 50mg tab ORAL SCH (22:52)
[2017-05-14] VITALS: BP 144/77
[2017-05-14] MEDS: Zosyn 3.375gm q8h **Extended infusion IVPB SCH ×6 (01:25→17:01)
[2017-05-14 04:00] VITALS: BP_SYST 141; BP_SYST 152; BP_DIAS 84; BP_DIAS 85
[2017-05-14] MEDS: Solu-MEDROL 125mg Inj IV SCH ×3 (05:37→18:15)
--- NOTE | 2017-05-14 06:49 | Wound Care Consultation ---
Wound Assessment Wound Assessment : Wound Number: #1 Wound Present on Admission: Yes New Wound: No Status Change of Wound: No Wound Location Body Site Modif: right, lower, lateral Wound Location Body Site: leg - close to malleolus/ankle area. Wound Type: other - non -healing open wound. Rolando Test: Does not Rolando Wound Thickness: Full Thickness Wound Length: 4.0 Wound Width: 3.0 Wound Depth: 0.3 Percent of Wound [place]/Red: 80 Percent of Wound Bed Yellow/Wh: 20 Wound Drainage Description: Serosanguineous Wound Drainage Amount: Moderate Wound Drainage Odor: None/Absent Tissue Surrounding Wound: Macerated Wound General Appearance: Reddened, Draining, Necrotic Wound Comment #1 Right lateral lower leg (ankle area) non-healing full thickness open wound. Recommendation. -Local wound care as ordered per protocol. -Turn and reposition. -Keep clean and dry. -Offload affected site. -Avoid shear and friction. -Optimize nutrition. -Assess and notify MD for any changes of condition to skin noted. RAMA SIMON May 14, 2017 06:49
[2017-05-14 08:12] VITALS: BP 144/69
[2017-05-14] MEDS: Theophylline ER 100mg ORAL SCH ×2 (08:45→21:02)
[2017-05-14] MEDS: Metoprolol 50mg tab ORAL SCH ×2 (08:45→21:02)
[2017-05-14] MEDS: Aspirin EC 325mg tab ORAL SCH (08:45)
[2017-05-14] MEDS: Heparin 5000 units/ml inj SUBQ SCH ×2 (08:51→21:00)
[2017-05-14 11:43] VITALS: BP 141/78
--- NOTE | 2017-05-14 12:31 | Consultation ---
Consult Note Assessment/Plan ID [id number] ASSESSMENT: 66 y/o male with: // COPD exacerbation - CXR 12/30: Lungs are hyperinflated. Lungs pleural space are clear. // h/o chronic non-healing lateral RLE ulcer, not grossly infected - MRI 10/30: No evidence of acute osteomyelitis. Multiple bone infarcts. Post fracture deformity of the distal tibia and fibula. 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 TTE EF 60-65%, grade 1 diastolic dysfunction, mod pHTN, trace MR, mild TR PAD DM Seizure disorder. CVA MDRO colonized No ABX allergies Full Code PLAN: - finishes PO Levaquin d# 5 / 5 today. Ok to DC in AM off of ABX from ID standpoint - taper steroids per pulm - monitor CBC, temperatures, re-culture if acute change - monitor BMP - monitor CXR - wound care LOY REID M.D. May 14, 2017 12:30
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
--- NOTE | 2017-05-14 15:11 | Cardiology Report ---
APPROVED REPORT EXAM: Two-dimensional and M-mode echocardiogram with Doppler and color Doppler. INDICATION Chest Pain Technically difficult study due to poor acoustic windows. Patients breathing and movement. M-mode measurements not obtainable due to cardiac structure. Normal left ventricular chamber size, systolic function and wall motion. Left ventricular ejection fraction estimated to be 60-65%. No evidence of left ventricular hypertrophy. No evidence of pericardial fat or effusion. All other cardiac chamber sizes are within normal limits. Focal aortic valve sclerosis with adequate cusp excursion Thickened mitral valve leaflets with normal excursion. Mitral annulus and aortic root calcification. Pulmonic valve not well visualized. Normal tricuspid valve structure. IVC is normal in size with physiologic collapse. A color flow and spectral Doppler study was performed and revealed: No aortic regurgitation. No mitral regurgitation. Left ventricular diastolic dysfunction grade 1. Moderate tricuspid regurgitation. Tricuspid systolic velocities suggests peak right ventricular systolic pressure of 32 mmHg
--- NOTE | 2017-05-14 15:18 | Pulmonology Progress Note ---
Assessment/Plan Problems: (1) COPD exacerbation (2) Atypical chest pain (3) DM (diabetes mellitus) (4) Intractable back pain (5) Nonhealing ulcer of right lower extremity Assessment/Plan all reviewed echo noted sliding scale f/u podiatry and Id recommendations dvt prophylaxis Med/surg Subjective ROS Limited/Unobtainable: No Constitutional: Reports: no symptoms Respiratory: Reports: no symptoms Allergies: Coded Allergies: EGG (Verified Allergy, Unknown, 09/22/15) MEPERIDINE (Verified Allergy, Unknown, 12/21/10) MORPHINE (Verified Allergy, Unknown, Shortness of Breath, 01/24/14) itching,shortness of breath,dyspnea NITROGLYCERIN (Verified Allergy, Unknown, hives, 02/18/17) Objective Last 24 Hour Vital Signs Date Time Temp Pulse Resp B/P Pulse Ox O2 Delivery O2 Flow Rate FiO2 05/14/17 13:27 98.1 05/14/17 11:43 98.1 78 18 141/78 96 Room Air 05/14/17 08:46 80 159/76 05/14/17 08:45 80 159/76 05/14/17 08:12 97.3 79 18 144/69 97 Room Air 05/14/17 04:00 72 05/14/17 04:00 97.9 79 18 152/85 Room Air 96 05/14/17 00:00 97.7 76 18 144/77 99 Room Air 05/14/17 00:00 106 05/13/17 22:52 99 148/81 05/13/17 20:00 104 05/13/17 20:00 98.6 99 18 148/81 98 Room Air 05/13/17 16:10 96.4 05/13/17 16:00 98 05/13/17 15:43 96.4 90 20 135/73 92 Room Air Intake and Output 05/13/17 05/14/17 19:00 07:00 Intake Total 1053.0 ml 400 ml Output Total 650 ml 300 ml Balance 403.0 ml 100 ml Intake Oral 930 ml IV Total 123.0 ml Other 400 ml Output Urine Total 650 ml 300 ml General Appearance: cachetic HEENT: normocephalic Respiratory/Chest: lungs clear Cardiovascular: normal peripheral pulses, normal rate Abdomen: normal bowel sounds, soft, non tender Genitourinary: normal external genitalia Extremities: no cyanosis Skin: ulcers 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 normal Lymphatic: no neck adenopathy Microbiology Date/Time Source Procedure Growth Status 05/13/17 02:00 Blood Blood Culture - Preliminary NO GROWTH AFTER 24 HOURS Resulted 05/13/17 01:45 Blood Blood Culture - Preliminary NO GROWTH AFTER 24 HOURS Resulted 05/13/17 10:55 Wound Gram Stain - Final Resulted 05/13/17 10:55 Wound Wound Culture - Preliminary Resulted 05/13/17 12:30 Sputum Gram Stain - Final Resulted 05/13/17 12:30 Sputum Sputum Culture Pending Resulted Current Medications Medications (Trade) Dose Ordered Sig/Aminata Route PRN Reason Start Time Stop Time Status Last Admin Dose Admin Albuterol/ Ipratropium (DuoNeb 0.5-3(2.5)mg/3ml) 3 ml Q4H PRN HHN dyspnea 05/13/17 00:15 05/18/17 00:14 Amlodipine Besylate (Norvasc) 10 mg DAILY ORAL 05/13/17 09:00 06/12/17 08:59 05/14/17 08:46 Aspirin (Ecotrin) 325 mg DAILY ORAL 05/13/17 09:00 06/12/17 08:59 05/14/17 08:45 Atorvastatin Calcium (Lipitor) 40 mg DAILY ORAL 05/13/17 09:00 06/12/17 08:59 05/14/17 08:45 Clopidogrel Bisulfate (Plavix) 75 mg DAILY ORAL 05/13/17 09:00 06/12/17 08:59 05/14/17 08:44 Dextrose STAT PRN IV Hypoglycemia 05/13/17 00:15 06/12/17 00:14 Heparin Sodium (Porcine) (Heparin 5000 units/ml) 5,000 units EVERY 12 HOURS SUBQ 05/13/17 09:00 06/12/17 08:59 05/14/17 08:51 Hydromorphone HCl (Dilaudid) 2 mg Q4H PRN IVP pain 7-10 05/13/17 15:00 05/20/17 14:59 05/14/17 12:57 Ketorolac Tromethamine (Toradol 30mg) 30 mg EVERY 8 HOURS PRN IV moderate pain 4-6 05/13/17 00:15 05/18/17 00:14 Levetiracetam (Keppra) 500 mg EVERY 12 HOURS ORAL 05/13/17 09:00 06/12/17 08:59 05/14/17 08:44 Lorazepam (Ativan 2mg/ml 1ml) 0.5 mg Q4H PRN IV For Anxiety 05/13/17 00:15 05/20/17 00:14 Methylprednisolone Sodium Succinate (Solu-MEDROL) 60 mg EVERY 6 HOURS IV 05/13/17 06:00 06/12/17 05:59 05/14/17 12:21 Metoprolol Tartrate (Lopressor) 50 mg Q12HR ORAL 05/13/17 21:00 06/12/17 20:59 05/14/17 08:45 Ondansetron HCl (Zofran) 4 mg Q6H PRN IVP Nausea & Vomiting 05/13/17 00:15 06/12/17 00:14 Piperacillin Sod/ Tazobactam Sod/ Dextrose (Zosyn/D5W) 110 ml @ 27.5 mls/hr Q8H IVPB 05/13/17 09:00 05/20/17 08:59 05/14/17 08:47 Temazepam (Restoril) 15 mg HSPRN PRN ORAL Insomnia 05/13/17 00:15 05/20/17 00:14 Theophylline (Wilfrido-Dur) 100 mg EVERY 12 HOURS ORAL 05/13/17 09:00 06/12/17 08:59 05/14/17 08:45 TAI SWEENEY May 14, 2017 15:18
[2017-05-14 16:00] VITALS: BP 136/76
[2017-05-14 20:03] VITALS: BP 130/77
[2017-05-14] MEDS ORDERED: Azithromycin 500 MG in D5W 275 ML IVPB SCH (22:15)
--- NOTE | 2017-05-14 23:15 | Consultation ---
DATE OF CONSULTATION: INFECTIOUS DISEASES CONSULTATION CONSULTING PHYSICIAN: Reuben Reich M.D. REQUESTING PHYSICIAN: Jessie Magana M.D. REASON FOR CONSULTATION: Evaluation of the patient for pneumonia, history of osteomyelitis, right ankle wound. HISTORY OF PRESENT ILLNESS: The patient is a 66-year-old male with multiple medical problems as listed below, who was admitted to this medical center due to shortness of breath and respiratory distress. Apparently the patient has been admitted to an outside facility for pneumonia. The patient was found to have right ankle wound, the patient has history of osteomyelitis. An Infectious Disease consultation has been requested for further evaluation of the patient for possible osteomyelitis, and pneumonia versus chronic obstructive pulmonary disease exacerbation. PAST MEDICAL HISTORY: 1. History of COPD. 2. History of chronic nonhealing right ankle wound, MRI of October showed no evidence of osteomyelitis. 3. History of chronic hepatitis C. 4. History of CKD. 5. History of CAD, status post CABG. 6. History of PAD. 7. Diabetes. 8. Seizure disorder. 9. CVA. 10. History of MDR colonization. MEDICATIONS: IV Zosyn. ALLERGIES: Eggs, meperidine, morphine, and nitroglycerin. SOCIAL HISTORY: The patient denies alcohol or smoking. FAMILY HISTORY: Noncontributory. REVIEW OF SYSTEMS: HEENT: No recent change in vision or hearing. Pulmonary: As mentioned above has cough and shortness of breath. Cardiovascular: No chest pain or palpitation. Gastrointestinal/Abdomen: No nausea or vomiting. Genitourinary: No dysuria. Musculoskeletal: As mentioned above. Neurologic: No seizure. PHYSICAL EXAMINATION: VITAL SIGNS: Temperature 98.6 degrees, blood pressure 130/77, pulse 87, and respiratory rate 18. HEENT: Mild pale conjunctivae. No icterus. NECK: No lymphadenopathy. CHEST: Coarse breathing sounds. Mild wheezes at bases of both lungs. HEART: S1 and S2. ABDOMEN: Soft and nontender. EXTREMITIES: The patient has right ankle wound that is healing. No evidence of erythema or discharge. LABORATORY DATA: White blood cells 9.6, hemoglobin 15, and platelets 341,000. UA is unremarkable. BUN 45 and creatinine 1.6. ALT, AST, alkaline phosphatase within normal range. Sputum culture is pending. Wound culture is pending. Blood culture is pending. Chest x-ray, no acute process. ASSESSMENT: The patient is a 66-year-old male with multiple medical problems, who has been admitted to this facility for chronic obstructive pulmonary disease exacerbation, possible underlying pneumonia. The patient has right ankle wound that is healing. Recently the patient has a MRI which showed no evidence of osteomyelitis. Also podiatry has been following. PLAN: 1. We will continue the patient on Zosyn, add Zithromax for atypical coverage. 2. Monitor cultures(blood, sputum, wound). 3. Monitor CBC. 4. Monitor BMP. 5. Monitor chest x-ray. 6. We will follow podiatry recommendations regarding wound care. Thank you, Dr. Magana, for allowing me to participate in the care of this patient. I will follow the patient with you during this hospitalization. Reuben Reich M.D. DR: Maribeth JOB#: [id number] CC:
[2017-05-15] VITALS (7 sets, daily range): BP systolic 133–153; BP diastolic 70–112
[2017-05-15] MEDS ORDERED: LORazepam Inj 2mg/ml 1ml IV PRN (00:15)
[2017-05-15] MEDS ORDERED: DuoNeb 0.5-3(2.5)mg/3ml neb HHN PRN (00:15)
[2017-05-15] MEDS: Piperacillin/Tazobactam 3.375 GM in D5W 110 ML IVPB SCH ×4 (00:56→17:20)
[2017-05-15] MEDS: Solu-MEDROL 125mg Inj IV SCH ×3 (00:56→12:17)
[2017-05-15] MEDS ORDERED: Azithromycin Inj IV ONE (04:53)
[2017-05-15] MEDS: Azithromycin 500 MG in D5W 275 ML IV SCH (05:12)
[2017-05-15] MEDS ORDERED: Ketorolac 30mg Inj IV PRN (06:00)
[2017-05-15 07:33] LABS: ALANINE AMINOTRANSFERASE 19 U/L (3-41); ALBUMIN/GLOBULIN RATIO 1.1 (1.0-2.7); ANION GAP 17 (5-15); ASPARTATE AMINO TRANSFERASE 14 U/L (5-40); CALCIUM 8.9 mg/dL (8.6-10.2); CARBON DIOXIDE 21 mEQ/L (20-30); CHLORIDE 100 mEQ/L (98-107); CREATININE 1.9 mg/dL (0.7-1.2); CRP QUANT < 0.3 mg/dL (< 0.5); HEMOLYSIS 2; MAGNESIUM 2.5 mg/dL (1.7-2.5); PHOSPHORUS 3.1 mg/dL (2.5-4.8); POTASSIUM 4.9 mEQ/L (3.4-4.9); SODIUM 138 mEQ/L (135-145); TOTAL PROTEIN 7.3 g/dL (6.6-8.7)
[2017-05-15 07:40] LABS: MEAN CORPUSCULAR HEMOGLOBIN 26.1 PG (27.0-31.0); MEAN CORPUSCULAR HGB CONC 30.8 G/DL (32.0-36.0); MEAN CORPUSCULAR VOLUME 85 FL (80-99); MEAN PLATELET VOLUME 6.7 FL (6.5-10.1); PLATELET COUNT 346 K/UL (150-450); RED BLOOD COUNT 4.93 M/UL (4.70-6.10); RED CELL DISTRIBUTION WIDTH 17.3 % (11.6-14.8); WHITE BLOOD COUNT 9.9 K/UL (4.8-10.8)
[2017-05-15] MEDS: Aspirin EC 325mg tab ORAL SCH (08:15)
[2017-05-15] MEDS: Metoprolol 50mg tab ORAL SCH ×2 (08:15→21:11)
[2017-05-15] MEDS: Theophylline ER 100mg ORAL SCH ×2 (08:15→21:11)
[2017-05-15] MEDS: Heparin 5000 units/ml inj SUBQ SCH ×2 (08:25→21:15)
--- NOTE | 2017-05-15 08:31 | Diagnostic Imaging Report ---
Indication: Pain Technique: 3 views of the right ankle Comparison: 05/19/2016 Findings: There is an old healed fracture of the distal fibula and tibia, with considerable residual medial deformity. No definite acute fractures. No dislocations. There are fairly extensive secondary degenerative changes of the ankle joint, with possible ankylosis of the medial mortise. Bones are osteoporotic, point more so than on the previous study although this may be exaggerated by differences in technique Impression: Extensive chronic deformity, limits assessment for acute bony trauma. No definite acute process, however.
[2017-05-15 09:24] LABS: ERYTHROCYTE SEDIMENTATION RATE 26 MM/HR (0-20)
--- NOTE | 2017-05-15 09:45 | Podiatric Progress Note ---
Assessment/Plan Patient Benjamin Ring is a 66 year old male who was admitted on May 13, 2017 at 03:00 with COPD exacerbation Problems: (1) DM (diabetes mellitus) (2) Ulcer of right lower leg (3) Injury of lower extremity Assessment/Plan ASSESSMENT AND PLAN: - Right lateral ankle chronic ulcer with bony prominence beneath the wound from previous trauma. Patient had history of osteomyelitis and went through 6 weeks of IV antibiotics last year. Wound is currently stable and slowly improving according to the patient. Continue local wound care. Advised patient on strict offloading of the ulcer which will help improve the wound. Wound culture was taken. Results pending. - Onychomycosis. Debrided toenails x 10 without complications Subjective Reason for consult Right lateral ankle ulcer Allergies: Coded Allergies: EGG (Verified Allergy, Unknown, 09/22/15) MEPERIDINE (Verified Allergy, Unknown, 12/21/10) MORPHINE (Verified Allergy, Unknown, Shortness of Breath, 01/24/14) itching,shortness of breath,dyspnea NITROGLYCERIN (Verified Allergy, Unknown, hives, 02/18/17) Subjective Patient states he is feeling better today. No nausea, vomiting, fevers, or chills. Objective Exam Last 24 Hour Vital Signs Date Time Temp Pulse Resp B/P Pulse Ox O2 Delivery O2 Flow Rate FiO2 05/15/17 08:15 69 148/81 05/15/17 08:14 69 148/81 05/15/17 08:00 97.3 104 18 143/112 100 Room Air 05/15/17 05:42 97.5 05/15/17 04:00 97.5 69 18 148/81 100 Room Air 05/15/17 00:00 98.1 76 18 133/70 97 Room Air 05/14/17 21:33 98.6 05/14/17 21:02 78 130/77 05/14/17 20:03 98.6 78 20 130/77 98 Room Air 05/14/17 16:00 98.2 84 18 136/76 100 Room Air 05/14/17 16:00 72 05/14/17 12:00 79 05/14/17 11:43 98.1 78 18 141/78 96 Room Air Laboratory Tests Test 05/15/17 05:25 White Blood Count 9.9 K/UL (4.8-10.8) Red Blood Count 4.93 M/UL (4.70-6.10) Hemoglobin 12.8 G/DL (14.2-18.0) L Hematocrit 41.6 % (42.0-52.0) L Mean Corpuscular Volume 85 FL (80-99) Mean Corpuscular Hemoglobin 26.1 PG (27.0-31.0) L Mean Corpuscular Hemoglobin Concent 30.8 G/DL (32.0-36.0) L Red Cell Distribution Width 17.3 % (11.6-14.8) H Platelet Count 346 K/UL (150-450) Mean Platelet Volume 6.7 FL (6.5-10.1) Neutrophils (%) (Auto) % (45.0-75.0) Lymphocytes (%) (Auto) % (20.0-45.0) Monocytes (%) (Auto) % (1.0-10.0) Eosinophils (%) (Auto) % (0.0-3.0) Basophils (%) (Auto) % (0.0-2.0) Neutrophils % (Manual) Pending Lymphocytes % (Manual) Pending Platelet Estimate Pending Platelet Morphology Pending Erythrocyte Sedimentation Rate 26 MM/HR (0-20) H Sodium Level 138 mEQ/L (135-145) Potassium Level 4.9 mEQ/L (3.4-4.9) Chloride Level 100 mEQ/L (98-107) Carbon Dioxide Level 21 mEQ/L (20-30) Anion Gap 17 (5-15) H Blood Urea Nitrogen 50 mg/dL (7-23) H Creatinine 1.9 mg/dL (0.7-1.2) H Estimat Glomerular Filtration Rate 43.0 mL/min (>60) Glucose Level 113 mg/dL (74-106) H Calcium Level 8.9 mg/dL (8.6-10.2) Phosphorus Level 3.1 mg/dL (2.5-4.8) Magnesium Level 2.5 mg/dL (1.7-2.5) Total Bilirubin < 0.2 mg/dL (0.0-1.2) Aspartate Amino Transf (AST/SGOT) 14 U/L (5-40) Alanine Aminotransferase (ALT/SGPT) 19 U/L (3-41) Alkaline Phosphatase 82 U/L (40-129) C-Reactive Protein, Quantitative < 0.3 mg/dL (< 0.5) Total Protein 7.3 g/dL (6.6-8.7) Albumin 3.9 g/dL (3.5-5.2) Globulin 3.4 g/dL Albumin/Globulin Ratio 1.1 (1.0-2.7) Microbiology Date/Time Source Procedure Growth Status 05/13/17 02:00 Blood Blood Culture - Preliminary NO GROWTH AFTER 24 HOURS Resulted 05/13/17 10:55 Wound Gram Stain - Final Resulted 05/13/17 10:55 Wound Wound Culture - Preliminary Resulted 05/13/17 12:30 Sputum Gram Stain - Final Resulted 05/13/17 12:30 Sputum Culture - Preliminary YEAST Usual Respiratory Norah Resulted 05/13/17 05:14 Rectum VRE Culture - Final Enterococcus Faecium - Vre Complete IMAGING STUDIES: 05/15/2017 Procedure: XRAY Ankle Compl Min 3v R Indication: Pain Technique: 3 views of the right ankle Comparison: 05/19/2016 Findings: There is an old healed fracture of the distal fibula and tibia, withconsiderable residual medial deformity. No definite acute fractures. No dislocations. There are fairly extensive secondary degenerative changes of the anklejoint, with possible ankylosis of the medial mortise. Bones are osteoporotic, point more so than on the previous study although this may be exaggerated by differences in technique Impression: Extensive chronic deformity, limits assessment for acute bony trauma. No definite acute process, however. 10/07/2016 Procedure: NM Bone Scan 3-Phase Indication: Chronic nonhealing right lower extremity ulcer, history of recurrent chronic osteomyelitis Technique: IV administration 22 mCi 99M technetium MDP. Flow, blood pool, and static images obtained over the ankles Comparison: None Findings: Flow images demonstrate asymmetric slight hyperemia of the right ankle and foot. Blood pool images demonstrate increased activity region of the right lateral malleolus and possibly calcaneus. Static images demonstrate increased activity within the region of the right lateral malleolus, distal tibia, possibly the talar dome, and calcaneal tuberosity Impression: Suspicious for osteomyelitis of the distal tibia and fibula, calcaneal tuberosity, and possibly the talar dome ARTERIAL DOPPLER: 10/04/2016 Symptoms Non-healing Ulcer : Right BILATERAL: Common femoral artery waveform analysis is within normal limits at rest. Color flow duplex sonography revealed minimal calcification throughout the superficial femoral, popliteal and the tibial arteries. There is no evidence of stenosis or occlusion within these segments. The tibioperoneal trunks were patent. However, Doppler tibial artery waveform analysis is compatible with moderate ischemia bilaterally. RIGHT ANKLE MRI: 10/30/16 Procedure: MRI Right Ankle WO Contrast Indication: Pain Technique: Right ankle/hind foot imaging utilizing multiplanar T1 fast spin-echo , proton and T2 fast spin-echo with fat saturation, and STIR. Comparison: None Findings: There is marked deformity of the distal tibia and fibula. There is susceptibility artifact projected over the distal fibula presumably from previous hardware placement and/or other marrow artifact. The area of the soft tissue ulceration is noted and seen in the lateral part of the ankle. The bone just deep to this is heterogeneous in appearance but there is no compelling evidence for osteomyelitis. Portions of the distal fibula subjacent to the ulcer are moderately obscured by metallic susceptibility artifact. There is no abscess. There are several bone infarcts demonstrated, for e.g. within the talus and posterior part of the calcaneus. These are seen as areas of abnormal signal demonstrating T2 hyperintense rim. Impression: No evidence of acute osteomyelitis. The area of concern is the lateral part of the ankle and distal fibula which is moderately obscured by susceptibility artifact. However no definite evidence of osteomyelitis. Multiple bone infarcts. Post fracture deformity of the distal tibia and fibula. PHYSICAL EXAM: Right lateral ankle wound is stable with no current purulence, malodor, or surrounding erythema or edema. Thick, discolored, and elongated toenails 1-5 bilaterally Marcial Issa DPM May 15, 2017 09:45
[2017-05-15 10:02] LABS: ANISOCYTOSIS 1+; BAND NEUTROPHILS % (MANUAL) 0 % (0-8); BASOPHILS % (MANUAL) 0 % (0-2); EOSINOPHILS % (MANUAL) 0 % (0-3); HYPOCHROMASIA 1+; LYMPHOCYTES % (MANUAL) 10 % (20-45); NEUTROPHILS % (MANUAL) 86 % (45-75); PLATELET ESTIMATE ADEQUATE; PLATELET MORPHOLOGY NORMAL; TOTAL CELLS COUNTED 100
--- NOTE | 2017-05-15 14:16 | Consultation ---
Consult Note Consult Note Asked to eval for renal failure - patient known to me from his previous admissions. HPI This is a 66-year-old male who was a smoker. He has a history of COPD. Also history of chronic pain. He presents with chief any shortness of breath and cough. Onset was 4 days ago. 3 days ago he went to [facility] and was admitted for pneumonia. He was there for 3 days he does get discharge today. He said that he denied any better. Did not get prescription for inhaler. He's not on any breathing treatment at home. No oxygen at home. He said his been coughing more. Now having chest pain. Pain is severe 10 out of 10. This is chronic for him. No nausea no vomiting. No diaphoresis. Worse with exertion. Better with rest. Allergies: EGG (Verified Allergy, Unknown, 09/22/15) MEPERIDINE (Verified Allergy, Unknown, 12/21/10) MORPHINE (Verified Allergy, Unknown, Shortness of Breath, 01/24/14) itching,shortness of breath,dyspnea NITROGLYCERIN (Verified Allergy, Unknown, hives, 02/18/17) Hx Cardiac Problems: Yes - ND Hx COPD: Yes Hx Neurological Problems: Yes Hx Seizures: Yes Hx Tremors: Yes Hx Syncope: Yes Hx Weakness: Yes Vital Signs Date Time Temp Pulse Resp B/P Pulse Ox O2 Delivery O2 Flow Rate FiO2 05/13/17 00:10 97.7 114 25 156/104 98 Room Air Assessment/Plan - ATN (acute tubular necrosis), multifactorial Mainly DM and HTN improved Cr 1.6 now 1.9 - CAD with ND previously - SZ Disorder - COPD exacerbation - Hypothyroidism - Gastritis - ACS (acute coronary syndrome) - HTN (hypertension) - Nonhealing ulcer of right lower extremity - Osteomyelitis of right lower extremity Plan; UA slow hydrate- taper steroids- avoid nephrotoxics- NSAIDs monitor renal parameters optimize pulmonary and cardiac status Urine studies per orders KACEY BERNSTEIN May 15, 2017 14:16
[2017-05-15] MEDS ORDERED: Tubing IV Secondary IV ONE (15:22)
[2017-05-15] MEDS ORDERED: D5W 275ml ONE (15:22)
--- NOTE | 2017-05-15 18:24 | Pulmonology Progress Note ---
Assessment/Plan Problems: (1) COPD exacerbation (2) Atypical chest pain (3) DM (diabetes mellitus) (4) Intractable back pain (5) Nonhealing ulcer of right lower extremity Assessment/Plan all reviewed echo noted sliding scale f/u podiatry and Id recommendations dvt prophylaxis Med/surg Subjective ROS Limited/Unobtainable: No Interval Events: slightly better Allergies: Coded Allergies: EGG (Verified Allergy, Unknown, 09/22/15) MEPERIDINE (Verified Allergy, Unknown, 12/21/10) MORPHINE (Verified Allergy, Unknown, Shortness of Breath, 01/24/14) itching,shortness of breath,dyspnea NITROGLYCERIN (Verified Allergy, Unknown, hives, 02/18/17) Objective Last 24 Hour Vital Signs Date Time Temp Pulse Resp B/P Pulse Ox O2 Delivery O2 Flow Rate FiO2 05/15/17 15:52 97.1 78 19 153/83 100 Room Air 05/15/17 11:47 98.1 75 18 136/80 99 Room Air 05/15/17 08:15 69 148/81 05/15/17 08:14 69 148/81 05/15/17 08:00 97.3 104 18 143/112 100 Room Air 05/15/17 05:42 97.5 05/15/17 04:00 97.5 69 18 148/81 100 Room Air 05/15/17 00:00 98.1 76 18 133/70 97 Room Air 05/14/17 21:33 98.6 05/14/17 21:02 78 130/77 05/14/17 20:03 98.6 78 20 130/77 98 Room Air Intake and Output 05/14/17 05/15/17 19:00 07:00 Intake Total 497.5 ml 1132.5 ml Output Total 400 ml 1500 ml Balance 97.5 ml -367.5 ml Intake Oral 360 ml 720 ml IV Total 137.5 ml 412.5 ml Output Urine Total 400 ml 1500 ml # Voids 1 General Appearance: cachetic HEENT: normocephalic, atraumatic Genitourinary: normal external genitalia Extremities: no cyanosis, other - clean dressing Microbiology Date/Time Source Procedure Growth Status 05/13/17 02:00 Blood Blood Culture - Preliminary NO GROWTH AFTER 48 HOURS Resulted 05/13/17 01:45 Blood Blood Culture - Preliminary NO GROWTH AFTER 48 HOURS Resulted 05/13/17 10:55 Wound Gram Stain - Final Resulted 05/13/17 10:55 Wound Culture - Preliminary Usual Skin Norah Resulted 05/13/17 12:30 Sputum Gram Stain - Final Resulted 05/13/17 12:30 Sputum Culture - Preliminary YEAST Usual Respiratory Norah Resulted 05/13/17 05:14 Nasal Nares Left MRSA Culture - Final NO METHICILLIN RESISTANT STAPH AUREUS... Complete 05/13/17 05:14 Rectum VRE Culture - Final Enterococcus Faecium - Vre Complete Laboratory Tests 05/15/17 05:25: White Blood Count 9.9, Red Blood Count 4.93, Hemoglobin 12.8L, Hematocrit 41.6L , Mean Corpuscular Volume 85, Mean Corpuscular Hemoglobin 26.1L, Mean Corpuscular Hemoglobin Concent 30.8L, Red Cell Distribution Width 17.3H, Platelet Count 346, Mean Platelet Volume 6.7, Neutrophils (%) (Auto) , Lymphocytes (%) (Auto) , Monocytes (%) (Auto) , Eosinophils (%) (Auto) , Basophils (%) (Auto) , Differential Total Cells Counted 100, Neutrophils % ( Manual) 86H, Lymphocytes % (Manual) 10L, Monocytes % (Manual) 4, Eosinophils % ( Manual) 0, Basophils % (Manual) 0, Band Neutrophils 0, Platelet Estimate Adequate, Platelet Morphology Normal, Hypochromasia 1+, Anisocytosis 1+, Erythrocyte Sedimentation Rate 26H, Sodium Level 138, Potassium Level 4.9, Chloride Level 100, Carbon Dioxide Level 21, Anion Gap 17H, Blood Urea Nitrogen 50H, Creatinine 1.9H, Estimat Glomerular Filtration Rate 43.0, Glucose Level 113H, Calcium Level 8.9, Phosphorus Level 3.1, Magnesium Level 2.5, Total Bilirubin < 0.2, Aspartate Amino Transf (AST/SGOT) 14, Alanine Aminotransferase (ALT/SGPT) 19, Alkaline Phosphatase 82, C-Reactive Protein, Quantitative < 0.3, Total Protein 7.3, Albumin 3.9, Globulin 3.4, Albumin/Globulin Ratio 1.1 Current Medications Medications (Trade) Dose Ordered Sig/Aminata Route PRN Reason Start Time Stop Time Status Last Admin Dose Admin Albuterol/ Ipratropium (DuoNeb 0.5-3(2.5)mg/3ml) 3 ml Q4H PRN HHN dyspnea 6/22/17 00:15 05/20/17 00:14 Amlodipine Besylate (Norvasc) 10 mg DAILY ORAL 05/15/17 09:00 06/14/17 08:59 05/15/17 08:14 Aspirin (Ecotrin) 325 mg DAILY ORAL 05/15/17 09:00 06/14/17 08:59 05/15/17 08:15 Atorvastatin Calcium (Lipitor) 40 mg DAILY ORAL 05/15/17 09:00 06/14/17 08:59 05/15/17 08:14 Azithromycin 500 mg/Dextrose 275 ml @ 275 mls/hr Q24HRS IV 05/15/17 05:00 05/21/17 05:01 05/15/17 05:12 Clopidogrel Bisulfate (Plavix) 75 mg DAILY ORAL 05/15/17 09:00 06/14/17 08:59 05/15/17 08:15 Dextrose (Dextrose 50%) STAT PRN IV Hypoglycemia 05/15/17 00:15 06/14/17 00:14 Heparin Sodium (Porcine) (Heparin 5000 units/ml) 5,000 units EVERY 12 HOURS SUBQ 05/15/17 09:00 06/14/17 08:59 05/15/17 08:25 Hydromorphone HCl (Dilaudid) 2 mg Q4H PRN IVP pain 7-10 05/15/17 03:00 05/22/17 02:59 05/15/17 17:20 Levetiracetam (Keppra) 500 mg EVERY 12 HOURS ORAL 05/15/17 09:00 06/14/17 08:59 05/15/17 08:14 Lorazepam (Ativan 2mg/ml 1ml) 0.5 mg Q4H PRN IV For Anxiety 05/15/17 00:15 05/22/17 00:14 Methylprednisolone Sodium Succinate (Solu-MEDROL) 60 mg EVERY 8 HOURS IVP 05/15/17 22:00 06/14/17 21:59 Metoprolol Tartrate (Lopressor) 50 mg Q12HR ORAL 05/15/17 09:00 06/14/17 08:59 05/15/17 08:15 Ondansetron HCl (Zofran) 4 mg Q6H PRN IVP Nausea & Vomiting 05/15/17 00:15 7/22/17 00:14 Piperacillin Sod/ Tazobactam Sod/ Dextrose (Zosyn/D5W) 110 ml @ 27.5 mls/hr Q8H IVPB 05/15/17 01:00 05/22/17 00:59 05/15/17 08:13 Temazepam (Restoril) 15 mg HSPRN PRN ORAL Insomnia 05/15/17 00:15 05/22/17 00:14 05/15/17 00:56 Theophylline (Wilfrido-Dur) 100 mg EVERY 12 HOURS ORAL 05/15/17 09:00 06/14/17 08:59 05/15/17 08:15 TAI SWEENEY May 15, 2017 18:24
--- NOTE | 2017-05-15 18:44 | Infectious Diseases Prog Note ---
Assessment/Plan Assessment/Plan ASSESSMENT: 66 y/o male with: // COPD exacerbation // h/o chronic non-healing lateral RLE ulcer, not grossly infected - MRI 10/30: No evidence of acute osteomyelitis. Multiple bone infarcts. Post fracture deformity of the distal tibia and fibula. 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 TTE EF 60-65%, grade 1 diastolic dysfunction, mod pHTN, trace MR, mild TR PAD DM Seizure disorder. CVA MDRO colonized No ABX allergies Full Code PLAN: - cont pt on Zosyn and Zithro d # 2 / 5 - taper steroids per pulm - monitor CBC, - moniotor cultures - monitor BMP - monitor CXR - wound care Subjective Constitutional: Denies: anorexia, chills, drenching sweats, fatigue, fever, no symptoms, other Allergies: Coded Allergies: EGG (Verified Allergy, Unknown, 09/22/15) MEPERIDINE (Verified Allergy, Unknown, 12/21/10) MORPHINE (Verified Allergy, Unknown, Shortness of Breath, 01/24/14) itching,shortness of breath,dyspnea NITROGLYCERIN (Verified Allergy, Unknown, hives, 02/18/17) Objective Vital Signs Last 24 Hour Vital Signs Date Time Temp Pulse Resp B/P Pulse Ox O2 Delivery O2 Flow Rate FiO2 05/15/17 15:52 97.1 78 19 153/83 100 Room Air 05/15/17 11:47 98.1 75 18 136/80 99 Room Air 05/15/17 08:15 69 148/81 05/15/17 08:14 69 148/81 05/15/17 08:00 97.3 104 18 143/112 100 Room Air 05/15/17 05:42 97.5 05/15/17 04:00 97.5 69 18 148/81 100 Room Air 05/15/17 00:00 98.1 76 18 133/70 97 Room Air 05/14/17 21:33 98.6 05/14/17 21:02 78 130/77 05/14/17 20:03 98.6 78 20 130/77 98 Room Air Height (Feet): 6 Height (Inches): 1.00 Weight (Pounds): 118 HEENT: atraumatic Respiratory/Chest: no respiratory distress Cardiovascular: regular rhythm Abdomen: no organomegaly Microbiology Date/Time Source Procedure Growth Status 05/13/17 02:00 Blood Blood Culture - Preliminary NO GROWTH AFTER 48 HOURS Resulted 05/13/17 01:45 Blood Blood Culture - Preliminary NO GROWTH AFTER 48 HOURS Resulted 05/13/17 10:55 Wound Gram Stain - Final Resulted 05/13/17 10:55 Wound Culture - Preliminary Usual Skin Norah Resulted 05/13/17 12:30 Sputum Gram Stain - Final Resulted 05/13/17 12:30 Sputum Culture - Preliminary YEAST Usual Respiratory Norah Resulted 05/13/17 05:14 Nasal Nares Left MRSA Culture - Final NO METHICILLIN RESISTANT STAPH AUREUS... Complete 05/13/17 05:14 Rectum VRE Culture - Final Enterococcus Faecium - Vre Complete Laboratory Tests Test 05/15/17 05:25 White Blood Count 9.9 K/UL (4.8-10.8) Red Blood Count 4.93 M/UL (4.70-6.10) Hemoglobin 12.8 G/DL (14.2-18.0) L Hematocrit 41.6 % (42.0-52.0) L Mean Corpuscular Volume 85 FL (80-99) Mean Corpuscular Hemoglobin 26.1 PG (27.0-31.0) L Mean Corpuscular Hemoglobin Concent 30.8 G/DL (32.0-36.0) L Red Cell Distribution Width 17.3 % (11.6-14.8) H Platelet Count 346 K/UL (150-450) Mean Platelet Volume 6.7 FL (6.5-10.1) Neutrophils (%) (Auto) % (45.0-75.0) Lymphocytes (%) (Auto) % (20.0-45.0) Monocytes (%) (Auto) % (1.0-10.0) Eosinophils (%) (Auto) % (0.0-3.0) Basophils (%) (Auto) % (0.0-2.0) Differential Total Cells Counted 100 Neutrophils % (Manual) 86 % (45-75) H Lymphocytes % (Manual) 10 % (20-45) L Monocytes % (Manual) 4 % (1-10) Eosinophils % (Manual) 0 % (0-3) Basophils % (Manual) 0 % (0-2) Band Neutrophils 0 % (0-8) Platelet Estimate Adequate Platelet Morphology Normal Hypochromasia 1+ Anisocytosis 1+ Erythrocyte Sedimentation Rate 26 MM/HR (0-20) H Sodium Level 138 mEQ/L (135-145) Potassium Level 4.9 mEQ/L (3.4-4.9) Chloride Level 100 mEQ/L (98-107) Carbon Dioxide Level 21 mEQ/L (20-30) Anion Gap 17 (5-15) H Blood Urea Nitrogen 50 mg/dL (7-23) H Creatinine 1.9 mg/dL (0.7-1.2) H Estimat Glomerular Filtration Rate 43.0 mL/min (>60) Glucose Level 113 mg/dL (74-106) H Calcium Level 8.9 mg/dL (8.6-10.2) Phosphorus Level 3.1 mg/dL (2.5-4.8) Magnesium Level 2.5 mg/dL (1.7-2.5) Total Bilirubin < 0.2 mg/dL (0.0-1.2) Aspartate Amino Transf (AST/SGOT) 14 U/L (5-40) Alanine Aminotransferase (ALT/SGPT) 19 U/L (3-41) Alkaline Phosphatase 82 U/L (40-129) C-Reactive Protein, Quantitative < 0.3 mg/dL (< 0.5) Total Protein 7.3 g/dL (6.6-8.7) Albumin 3.9 g/dL (3.5-5.2) Globulin 3.4 g/dL Albumin/Globulin Ratio 1.1 (1.0-2.7) Current Medications Medications (Trade) Dose Ordered Sig/Aminata Route PRN Reason Start Time Stop Time Status Last Admin Dose Admin Albuterol/ Ipratropium (DuoNeb 0.5-3(2.5)mg/3ml) 3 ml Q4H PRN HHN dyspnea 05/15/17 00:15 05/20/17 00:14 Amlodipine Besylate (Norvasc) 10 mg DAILY ORAL 05/15/17 09:00 06/14/17 08:59 05/15/17 08:14 Aspirin (Ecotrin) 325 mg DAILY ORAL 05/15/17 09:00 06/14/17 08:59 05/15/17 08:15 Atorvastatin Calcium (Lipitor) 40 mg DAILY ORAL 05/15/17 09:00 06/14/17 08:59 05/15/17 08:14 Azithromycin 500 mg/Dextrose 275 ml @ 275 mls/hr Q24HRS IV 05/15/17 05:00 05/21/17 05:01 05/15/17 05:12 Clopidogrel Bisulfate (Plavix) 75 mg DAILY ORAL 05/15/17 09:00 06/14/17 08:59 05/15/17 08:15 Dextrose (Dextrose 50%) STAT PRN IV Hypoglycemia 05/15/17 00:15 06/14/17 00:14 Heparin Sodium (Porcine) (Heparin 5000 units/ml) 5,000 units EVERY 12 HOURS SUBQ 05/15/17 09:00 06/14/17 08:59 05/15/17 08:25 Hydromorphone HCl (Dilaudid) 2 mg Q4H PRN IVP pain 7-10 05/15/17 03:00 05/22/17 02:59 05/15/17 17:20 Levetiracetam (Keppra) 500 mg EVERY 12 HOURS ORAL 05/15/17 09:00 06/14/17 08:59 05/15/17 08:14 Lorazepam (Ativan 2mg/ml 1ml) 0.5 mg Q4H PRN IV For Anxiety 05/15/17 00:15 05/22/17 00:14 Methylprednisolone Sodium Succinate (Solu-MEDROL) 60 mg DAILY IVP 05/16/17 09:00 06/15/17 08:59 Metoprolol Tartrate (Lopressor) 50 mg Q12HR ORAL 05/15/17 09:00 06/14/17 08:59 05/15/17 08:15 Ondansetron HCl (Zofran) 4 mg Q6H PRN IVP Nausea & Vomiting 05/15/17 00:15 06/14/17 00:14 Piperacillin Sod/ Tazobactam Sod/ Dextrose (Zosyn/D5W) 110 ml @ 27.5 mls/hr Q8H IVPB 05/15/17 01:00 05/22/17 00:59 05/15/17 08:13 Temazepam (Restoril) 15 mg HSPRN PRN ORAL Insomnia 05/15/17 00:15 05/22/17 00:14 05/15/17 00:56 Theophylline (Wilfrido-Dur) 100 mg EVERY 12 HOURS ORAL 05/15/17 09:00 06/14/17 08:59 05/15/17 08:15 LOY REID M.D. May 15, 2017 18:44
[2017-05-15] MEDS: guaiFENesin DM 100mg/5ml ORAL PRN (21:20)
[2017-05-15] MEDS ORDERED: Solu-MEDROL 40mg Inj IVP SCH (22:00)
[2017-05-16] MEDS: Piperacillin/Tazobactam 3.375 GM in D5W 110 ML IVPB SCH ×2 (01:20→09:10)
[2017-05-16 04:22] VITALS: BP 141/93
[2017-05-16] MEDS: Azithromycin 500 MG in D5W 275 ML IV SCH (05:14)
[2017-05-16 06:02] LABS: BASOPHILS % (AUTO) 3.4 % (0.0-2.0); LYMPHOCYTES % (AUTO) 16.1 % (20.0-45.0); MEAN CORPUSCULAR HEMOGLOBIN 26.2 PG (27.0-31.0); MEAN CORPUSCULAR HGB CONC 31.2 G/DL (32.0-36.0); MEAN CORPUSCULAR VOLUME 84 FL (80-99); MEAN PLATELET VOLUME 7.6 FL (6.5-10.1); MONOCYTES % (AUTO) 11.6 % (1.0-10.0); NEUTROPHILS % (AUTO) 68.9 % (45.0-75.0); PLATELET COUNT 355 K/UL (150-450); RED BLOOD COUNT 5.05 M/UL (4.70-6.10); RED CELL DISTRIBUTION WIDTH 17.8 % (11.6-14.8); WHITE BLOOD COUNT 12.2 K/UL (4.8-10.8)
[2017-05-16 06:38] LABS: ALANINE AMINOTRANSFERASE 21 U/L (3-41); ALBUMIN/GLOBULIN RATIO 1.1 (1.0-2.7); ANION GAP 15 (5-15); ASPARTATE AMINO TRANSFERASE 17 U/L (5-40); CALCIUM 8.6 mg/dL (8.6-10.2); CARBON DIOXIDE 21 mEQ/L (20-30); CHLORIDE 99 mEQ/L (98-107); CHOLESTEROL 233 mg/dL (< 200); CHOLESTEROL/HDL RATIO 3.2 (3.3-4.4); CREATININE 1.6 mg/dL (0.7-1.2); CRP QUANT < 0.3 mg/dL (< 0.5); GLOMERULAR FILTRATION RATE 52.5 mL/min (>60); HEMOLYSIS 5; LDL CHOLESTEROL (CALC.) 143 mg/dL (60-99); MAGNESIUM 2.4 mg/dL (1.7-2.5); PHOSPHORUS 3.3 mg/dL (2.5-4.8); POTASSIUM 5.1 mEQ/L (3.4-4.9); SODIUM 135 mEQ/L (135-145); URIC ACID 6.2 mg/dL (3.0-7.5)
[2017-05-16 06:51] LABS: THYROID STIMULATING HORMONE 0.897 uIU/mL (0.300-4.500)
[2017-05-16 07:52] LABS: HEMOGLOBIN A1C 5.8 % (< 6.0)
[2017-05-16 08:56] VITALS: BP 129/87
[2017-05-16] MEDS ORDERED: Solu-MEDROL 40mg Inj IVP SCH (09:00)
[2017-05-16] MEDS: Aspirin EC 325mg tab ORAL SCH (09:09)
[2017-05-16] MEDS: Metoprolol 50mg tab ORAL SCH (09:09)
[2017-05-16] MEDS: Theophylline ER 100mg ORAL SCH (09:09)
[2017-05-16] MEDS: Heparin 5000 units/ml inj SUBQ SCH (09:12)
[2017-05-16] MEDS: guaiFENesin DM 100mg/5ml ORAL PRN (09:26)
--- NOTE | 2017-05-16 10:00 | Podiatric Progress Note ---
Assessment/Plan Patient Benjamin Ring is a 66 year old male who was admitted on May 13, 2017 at 03:00 with COPD exacerbation Problems: (1) Chronic ulcer of right leg (2) Pain of right lower extremity (3) Closed fracture of tibia and fibula with malunion Assessment/Plan - Continue local wound care and offloading. Increase bleeding of the wound may have been due to anticoagulation. Appears stable now. Patient will benefit from advanced wound care therapy as an outpatient. Discussed with patient that if the wound does not continue to get smaller he is to seek out advanced wound therapy. Offered patient to follow up at [facility] but patient states that it is too far for him. Subjective Reason for consult Right leg chronic ulcer Allergies: Coded Allergies: EGG (Verified Allergy, Unknown, 09/22/15) MEPERIDINE (Verified Allergy, Unknown, 12/21/10) MORPHINE (Verified Allergy, Unknown, Shortness of Breath, 01/24/14) itching,shortness of breath,dyspnea NITROGLYCERIN (Verified Allergy, Unknown, hives, 02/18/17) Subjective Patient states he is doing well and no overnight events reported. No nausea, vomiting, fevers, or chills reported. Patient states increase bleeding from the ulcer last night without any history of trauma last night Objective Exam Last 24 Hour Vital Signs Date Time Temp Pulse Resp B/P Pulse Ox O2 Delivery O2 Flow Rate FiO2 05/16/17 09:09 80 129/87 05/16/17 09:09 80 129/87 05/16/17 08:56 97.9 80 17 129/87 98 Room Air 05/16/17 05:54 96.5 05/16/17 04:22 96.5 65 20 141/93 99 Room Air 05/15/17 23:56 97.9 75 20 150/76 98 Room Air 05/15/17 21:11 79 153/82 05/15/17 20:20 79 18 Room Air 05/15/17 19:41 97.7 80 20 153/82 98 Room Air 05/15/17 15:52 97.1 78 19 153/83 100 Room Air 05/15/17 11:47 98.1 75 18 136/80 99 Room Air Laboratory Tests Test 05/16/17 05:10 05/16/17 06:00 White Blood Count 12.2 K/UL (4.8-10.8) H Red Blood Count 5.05 M/UL (4.70-6.10) Hemoglobin 13.2 G/DL (14.2-18.0) L Hematocrit 42.3 % (42.0-52.0) Mean Corpuscular Volume 84 FL (80-99) Mean Corpuscular Hemoglobin 26.2 PG (27.0-31.0) L Mean Corpuscular Hemoglobin Concent 31.2 G/DL (32.0-36.0) L Red Cell Distribution Width 17.8 % (11.6-14.8) H Platelet Count 355 K/UL (150-450) Mean Platelet Volume 7.6 FL (6.5-10.1) Neutrophils (%) (Auto) 68.9 % (45.0-75.0) Lymphocytes (%) (Auto) 16.1 % (20.0-45.0) L Monocytes (%) (Auto) 11.6 % (1.0-10.0) H Eosinophils (%) (Auto) 0.0 % (0.0-3.0) Basophils (%) (Auto) 3.4 % (0.0-2.0) H Sodium Level 135 mEQ/L (135-145) Potassium Level 5.1 mEQ/L (3.4-4.9) H Chloride Level 99 mEQ/L (98-107) Carbon Dioxide Level 21 mEQ/L (20-30) Anion Gap 15 (5-15) Blood Urea Nitrogen 44 mg/dL (7-23) H Creatinine 1.6 mg/dL (0.7-1.2) H Estimat Glomerular Filtration Rate 52.5 mL/min (>60) Glucose Level 95 mg/dL (74-106) Hemoglobin A1c 5.8 % (< 6.0) Uric Acid 6.2 mg/dL (3.0-7.5) Calcium Level 8.6 mg/dL (8.6-10.2) Phosphorus Level 3.3 mg/dL (2.5-4.8) Magnesium Level 2.4 mg/dL (1.7-2.5) Total Bilirubin < 0.2 mg/dL (0.0-1.2) Gamma Glutamyl Transpeptidase 29 U/L (8-61) Aspartate Amino Transf (AST/SGOT) 17 U/L (5-40) Alanine Aminotransferase (ALT/SGPT) 21 U/L (3-41) Alkaline Phosphatase 65 U/L (40-129) Total Creatine Kinase 35 U/L (38-174) L C-Reactive Protein, Quantitative < 0.3 mg/dL (< 0.5) Pro-B-Type Natriuretic Peptide 300 pg/mL (0-125) H Total Protein 7.0 g/dL (6.6-8.7) Albumin 3.8 g/dL (3.5-5.2) Globulin 3.2 g/dL Albumin/Globulin Ratio 1.1 (1.0-2.7) Triglycerides Level 91 mg/dL (< 150) Cholesterol Level 233 mg/dL (< 200) H LDL Cholesterol 143 mg/dL (60-99) H HDL Cholesterol 72 mg/dL (> 60) H Cholesterol/HDL Ratio 3.2 (3.3-4.4) L Thyroid Stimulating Hormone (TSH) 0.897 uIU/mL (0.300-4.500) Urine Eosinophils None seen Microbiology Date/Time Source Procedure Growth Status 05/13/17 02:00 Blood Blood Culture - Preliminary NO GROWTH AFTER 72 HOURS Resulted 05/13/17 10:55 Wound Gram Stain - Final Resulted 05/13/17 10:55 Wound Culture - Preliminary Usual Skin Norah Resulted 05/13/17 12:30 Sputum Gram Stain - Final Complete 05/13/17 12:30 Sputum Sputum Culture - Final NORMAL UPPER RESPIRATORY NORAH AT 48 ... Complete 05/13/17 05:14 Rectum VRE Culture - Final Enterococcus Faecium - Vre Complete Exam Narrative Right lateral distal leg with ulcer. Mild maceration noted at the superior aspect of the wound margin. No purulence, malodor, or surrounding cellulitis noted Marcial Issa DPM May 16, 2017 10:00
--- NOTE | 2017-05-16 10:08 | Infectious Diseases Prog Note ---
Assessment/Plan Assessment/Plan ASSESSMENT: 66 y/o male with: // COPD exacerbation Scx: No sig growth // h/o chronic non-healing lateral RLE ulcer, not grossly infected Wnd Cx: Colonizer - MRI 10/30: No evidence of acute osteomyelitis. Multiple bone infarcts. Post fracture deformity of the distal tibia and fibula. 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 TTE EF 60-65%, grade 1 diastolic dysfunction, mod pHTN, trace MR, mild TR PAD DM Seizure disorder. CVA MDRO colonized No ABX allergies Full Code PLAN: - cont pt on Zosyn and Zithro d # 3 / 5 , upon DC will cont w Augmentin and Zithro to complete the course - taper steroids per pulm - monitor CBC, - moniotor cultures ( Bl, Wnd ) - monitor BMP - monitor CXR - wound care Subjective Constitutional: Denies: anorexia, chills, drenching sweats, fatigue, fever, no symptoms, other Allergies: Coded Allergies: EGG (Verified Allergy, Unknown, 09/22/15) MEPERIDINE (Verified Allergy, Unknown, 12/21/10) MORPHINE (Verified Allergy, Unknown, Shortness of Breath, 01/24/14) itching,shortness of breath,dyspnea NITROGLYCERIN (Verified Allergy, Unknown, hives, 02/18/17) Objective Vital Signs Last 24 Hour Vital Signs Date Time Temp Pulse Resp B/P Pulse Ox O2 Delivery O2 Flow Rate FiO2 05/16/17 09:52 97.9 05/16/17 09:33 69 18 Room Air 05/16/17 09:09 80 129/87 05/16/17 09:09 80 129/87 05/16/17 08:56 97.9 80 17 129/87 98 Room Air 05/16/17 04:22 96.5 65 20 141/93 99 Room Air 05/15/17 23:56 97.9 75 20 150/76 98 Room Air 05/15/17 21:11 79 153/82 05/15/17 20:20 79 18 Room Air 05/15/17 19:41 97.7 80 20 153/82 98 Room Air 05/15/17 15:52 97.1 78 19 153/83 100 Room Air 05/15/17 11:47 98.1 75 18 136/80 99 Room Air Height (Feet): 6 Height (Inches): 1.00 Weight (Pounds): 118 HEENT: mucous membranes moist Respiratory/Chest: no accessory muscle use Cardiovascular: regularly irregular Abdomen: non distended Microbiology Date/Time Source Procedure Growth Status 05/13/17 10:55 Wound Gram Stain - Final Resulted 05/13/17 10:55 Wound Culture - Preliminary Usual Skin Nimo Resulted 05/13/17 12:30 Sputum Gram Stain - Final Complete 05/13/17 12:30 Sputum Sputum Culture - Final NORMAL UPPER RESPIRATORY NIMO AT 48 ... Complete Laboratory Tests Test 05/16/17 05:10 05/16/17 06:00 White Blood Count 12.2 K/UL (4.8-10.8) H Red Blood Count 5.05 M/UL (4.70-6.10) Hemoglobin 13.2 G/DL (14.2-18.0) L Hematocrit 42.3 % (42.0-52.0) Mean Corpuscular Volume 84 FL (80-99) Mean Corpuscular Hemoglobin 26.2 PG (27.0-31.0) L Mean Corpuscular Hemoglobin Concent 31.2 G/DL (32.0-36.0) L Red Cell Distribution Width 17.8 % (11.6-14.8) H Platelet Count 355 K/UL (150-450) Mean Platelet Volume 7.6 FL (6.5-10.1) Neutrophils (%) (Auto) 68.9 % (45.0-75.0) Lymphocytes (%) (Auto) 16.1 % (20.0-45.0) L Monocytes (%) (Auto) 11.6 % (1.0-10.0) H Eosinophils (%) (Auto) 0.0 % (0.0-3.0) Basophils (%) (Auto) 3.4 % (0.0-2.0) H Sodium Level 135 mEQ/L (135-145) Potassium Level 5.1 mEQ/L (3.4-4.9) H Chloride Level 99 mEQ/L (98-107) Carbon Dioxide Level 21 mEQ/L (20-30) Anion Gap 15 (5-15) Blood Urea Nitrogen 44 mg/dL (7-23) H Creatinine 1.6 mg/dL (0.7-1.2) H Estimat Glomerular Filtration Rate 52.5 mL/min (>60) Glucose Level 95 mg/dL (74-106) Hemoglobin A1c 5.8 % (< 6.0) Uric Acid 6.2 mg/dL (3.0-7.5) Calcium Level 8.6 mg/dL (8.6-10.2) Phosphorus Level 3.3 mg/dL (2.5-4.8) Magnesium Level 2.4 mg/dL (1.7-2.5) Total Bilirubin < 0.2 mg/dL (0.0-1.2) Gamma Glutamyl Transpeptidase 29 U/L (8-61) Aspartate Amino Transf (AST/SGOT) 17 U/L (5-40) Alanine Aminotransferase (ALT/SGPT) 21 U/L (3-41) Alkaline Phosphatase 65 U/L (40-129) Total Creatine Kinase 35 U/L (38-174) L C-Reactive Protein, Quantitative < 0.3 mg/dL (< 0.5) Pro-B-Type Natriuretic Peptide 300 pg/mL (0-125) H Total Protein 7.0 g/dL (6.6-8.7) Albumin 3.8 g/dL (3.5-5.2) Globulin 3.2 g/dL Albumin/Globulin Ratio 1.1 (1.0-2.7) Triglycerides Level 91 mg/dL (< 150) Cholesterol Level 233 mg/dL (< 200) H LDL Cholesterol 143 mg/dL (60-99) H HDL Cholesterol 72 mg/dL (> 60) H Cholesterol/HDL Ratio 3.2 (3.3-4.4) L Thyroid Stimulating Hormone (TSH) 0.897 uIU/mL (0.300-4.500) Urine Eosinophils None seen Current Medications Medications (Trade) Dose Ordered Sig/Aminata Route PRN Reason Start Time Stop Time Status Last Admin Dose Admin Albuterol/ Ipratropium (DuoNeb 0.5-3(2.5)mg/3ml) 3 ml Q4H PRN HHN dyspnea 05/15/17 00:15 05/20/17 00:14 Amlodipine Besylate (Norvasc) 10 mg DAILY ORAL 05/15/17 09:00 06/14/17 08:59 05/16/17 09:09 Aspirin (Ecotrin) 325 mg DAILY ORAL 05/15/17 09:00 06/14/17 08:59 05/16/17 09:09 Atorvastatin Calcium (Lipitor) 40 mg DAILY ORAL 05/15/17 09:00 06/14/17 08:59 05/16/17 09:09 Azithromycin 500 mg/Dextrose 275 ml @ 275 mls/hr Q24HRS IV 05/15/17 05:00 05/21/17 05:01 05/16/17 05:14 Clopidogrel Bisulfate (Plavix) 75 mg DAILY ORAL 05/15/17 09:00 06/14/17 08:59 05/16/17 09:09 Dextrose (Dextrose 50%) STAT PRN IV Hypoglycemia 05/15/17 00:15 06/14/17 00:14 Guaifenesin/ Dextromethorphan (Robitussin DM) 5 ml Q4H PRN ORAL For Cough 05/15/17 19:00 06/14/17 18:59 05/16/17 09:26 Heparin Sodium (Porcine) (Heparin 5000 units/ml) 5,000 units EVERY 12 HOURS SUBQ 05/15/17 09:00 06/14/17 08:59 05/16/17 09:12 Hydromorphone HCl (Dilaudid) 2 mg Q4H PRN IVP pain 7-10 05/15/17 03:00 05/22/17 02:59 05/16/17 09:22 Levetiracetam (Keppra) 500 mg EVERY 12 HOURS ORAL 05/15/17 09:00 06/14/17 08:59 05/16/17 09:08 Lorazepam (Ativan 2mg/ml 1ml) 0.5 mg Q4H PRN IV For Anxiety 05/15/17 00:15 05/22/17 00:14 Methylprednisolone Sodium Succinate (Solu-MEDROL) 60 mg DAILY IVP 05/16/17 09:00 06/15/17 08:59 05/16/17 09:08 Metoprolol Tartrate (Lopressor) 50 mg Q12HR ORAL 05/15/17 09:00 06/14/17 08:59 05/16/17 09:09 Ondansetron HCl (Zofran) 4 mg Q6H PRN IVP Nausea & Vomiting 05/15/17 00:15 06/14/17 00:14 Piperacillin Sod/ Tazobactam Sod/ Dextrose (Zosyn/D5W) 110 ml @ 27.5 mls/hr Q8H IVPB 05/15/17 01:00 05/22/17 00:59 05/16/17 09:10 Temazepam (Restoril) 15 mg HSPRN PRN ORAL Insomnia 05/15/17 00:15 05/22/17 00:14 05/15/17 00:56 Theophylline (Wilfrido-Dur) 100 mg EVERY 12 HOURS ORAL 05/15/17 09:00 06/14/17 08:59 05/16/17 09:09 LOY REID M.D. May 16, 2017 10:08
[2017-05-16] MEDS ORDERED: NS 275ml ONE (10:42)
[2017-05-16 12:00] VITALS: BP 132/79
--- NOTE | 2017-05-16 13:26 | General Progress Note ---
Assessment/Plan Status: stable Status Narrative breathing easier Assessment/Plan - ATN (acute tubular necrosis), multifactorial Mainly DM and HTN improved Cr 1.6 up to 1.9, now back down to 1.6 - CAD with AL previously - SZ Disorder - COPD exacerbation - Hypothyroidism - Gastritis - ACS (acute coronary syndrome) - HTN (hypertension) - Nonhealing ulcer of right lower extremity - Osteomyelitis of right lower extremity Plan; UA slow hydrate- taper steroids- avoid nephrotoxics- NSAIDs monitor renal parameters optimize pulmonary and cardiac status Urine studies per orders Subjective ROS Limited/Unobtainable: No Allergies: Coded Allergies: EGG (Verified Allergy, Unknown, 09/22/15) MEPERIDINE (Verified Allergy, Unknown, 12/21/10) MORPHINE (Verified Allergy, Unknown, Shortness of Breath, 01/24/14) itching,shortness of breath,dyspnea NITROGLYCERIN (Verified Allergy, Unknown, hives, 02/18/17) Objective Last 24 Hour Vital Signs Date Time Temp Pulse Resp B/P Pulse Ox O2 Delivery O2 Flow Rate FiO2 05/16/17 12:00 97.5 76 18 132/79 99 Room Air 05/16/17 09:52 97.9 05/16/17 09:33 69 18 Room Air 05/16/17 09:09 80 129/87 05/16/17 09:09 80 129/87 05/16/17 08:56 97.9 80 17 129/87 98 Room Air 05/16/17 04:22 96.5 65 20 141/93 99 Room Air 05/15/17 23:56 97.9 75 20 150/76 98 Room Air 05/15/17 21:11 79 153/82 05/15/17 20:20 79 18 Room Air 05/15/17 19:41 97.7 80 20 153/82 98 Room Air 05/15/17 15:52 97.1 78 19 153/83 100 Room Air Intake and Output 05/15/17 05/16/17 19:00 07:00 Intake Total 350.0 ml 27.5 ml Balance 350.0 ml 27.5 ml Intake Oral 240 ml IV Total 110.0 ml 27.5 ml # Voids 3 Laboratory Tests 05/16/17 05:10: White Blood Count 12.2H, Red Blood Count 5.05, Hemoglobin 13.2L, Hematocrit 42.3 , Mean Corpuscular Volume 84, Mean Corpuscular Hemoglobin 26.2L, Mean Corpuscular Hemoglobin Concent 31.2L, Red Cell Distribution Width 17.8H, Platelet Count 355, Mean Platelet Volume 7.6, Neutrophils (%) (Auto) 68.9, Lymphocytes (%) (Auto) 16.1L, Monocytes (%) (Auto) 11.6H, Eosinophils (%) (Auto ) 0.0, Basophils (%) (Auto) 3.4H, Sodium Level 135, Potassium Level 5.1H, Chloride Level 99, Carbon Dioxide Level 21, Anion Gap 15, Blood Urea Nitrogen 44H, Creatinine 1.6H, Estimat Glomerular Filtration Rate 52.5, Glucose Level 95 , Hemoglobin A1c 5.8, Uric Acid 6.2, Calcium Level 8.6, Phosphorus Level 3.3, Magnesium Level 2.4, Total Bilirubin < 0.2, Gamma Glutamyl Transpeptidase 29, Aspartate Amino Transf (AST/SGOT) 17, Alanine Aminotransferase (ALT/SGPT) 21, Alkaline Phosphatase 65, Total Creatine Kinase 35L, C-Reactive Protein, Quantitative < 0.3, Pro-B-Type Natriuretic Peptide 300H, Total Protein 7.0, Albumin 3.8, Globulin 3.2, Albumin/Globulin Ratio 1.1, Triglycerides Level 91, Cholesterol Level 233H, LDL Cholesterol 143H, HDL Cholesterol 72H, Cholesterol/ HDL Ratio 3.2L, Thyroid Stimulating Hormone (TSH) 0.897 05/16/17 06:00: Urine Eosinophils None seen Height (Feet): 6 Height (Inches): 1.00 Weight (Pounds): 118 General Appearance: no apparent distress Objective no change in PE KACEY BERNSTEIN May 16, 2017 13:26
[2017-05-16] MEDS ORDERED: DILAUDID1 MG/1 ML PO (13:48)
[2017-05-16] MEDS ORDERED: THEOPHYLLINE A100 MG ORAL (13:48)
[2017-05-16] MEDS ORDERED: VENTOLIN HFA18 GM INH (13:48)
--- NOTE | 2017-05-16 15:03 | Pulmonology Progress Note ---
Assessment/Plan Problems: (1) COPD exacerbation (2) Atypical chest pain (3) DM (diabetes mellitus) (4) Intractable back pain (5) Nonhealing ulcer of right lower extremity Assessment/Plan improving less cough less short of breath dvt prophylaxis Med/surg Subjective ROS Limited/Unobtainable: No Constitutional: Reports: no symptoms HEENT: Repors: no symptoms Respiratory: Reports: no symptoms Allergies: Coded Allergies: EGG (Verified Allergy, Unknown, 09/22/15) MEPERIDINE (Verified Allergy, Unknown, 12/21/10) MORPHINE (Verified Allergy, Unknown, Shortness of Breath, 01/24/14) itching,shortness of breath,dyspnea NITROGLYCERIN (Verified Allergy, Unknown, hives, 02/18/17) Objective Last 24 Hour Vital Signs Date Time Temp Pulse Resp B/P Pulse Ox O2 Delivery O2 Flow Rate FiO2 05/16/17 13:30 97.5 05/16/17 12:00 97.5 76 18 132/79 99 Room Air 05/16/17 09:33 69 18 Room Air 05/16/17 09:09 80 129/87 05/16/17 09:09 80 129/87 05/16/17 08:56 97.9 80 17 129/87 98 Room Air 05/16/17 04:22 96.5 65 20 141/93 99 Room Air 05/15/17 23:56 97.9 75 20 150/76 98 Room Air 05/15/17 21:11 79 153/82 05/15/17 20:20 79 18 Room Air 05/15/17 19:41 97.7 80 20 153/82 98 Room Air 05/15/17 15:52 97.1 78 19 153/83 100 Room Air Intake and Output 05/15/17 05/16/17 19:00 07:00 Intake Total 350.0 ml 27.5 ml Balance 350.0 ml 27.5 ml Intake Oral 240 ml IV Total 110.0 ml 27.5 ml # Voids 3 General Appearance: cachetic HEENT: normocephalic, atraumatic Respiratory/Chest: chest wall non-tender, lungs clear Cardiovascular: normal peripheral pulses, normal rate Abdomen: normal bowel sounds, soft, non tender Genitourinary: normal external genitalia Extremities: no cyanosis Laboratory Tests 05/16/17 05:10: White Blood Count 12.2H, Red Blood Count 5.05, Hemoglobin 13.2L, Hematocrit 42.3 , Mean Corpuscular Volume 84, Mean Corpuscular Hemoglobin 26.2L, Mean Corpuscular Hemoglobin Concent 31.2L, Red Cell Distribution Width 17.8H, Platelet Count 355, Mean Platelet Volume 7.6, Neutrophils (%) (Auto) 68.9, Lymphocytes (%) (Auto) 16.1L, Monocytes (%) (Auto) 11.6H, Eosinophils (%) (Auto ) 0.0, Basophils (%) (Auto) 3.4H, Sodium Level 135, Potassium Level 5.1H, Chloride Level 99, Carbon Dioxide Level 21, Anion Gap 15, Blood Urea Nitrogen 44H, Creatinine 1.6H, Estimat Glomerular Filtration Rate 52.5, Glucose Level 95 , Hemoglobin A1c 5.8, Uric Acid 6.2, Calcium Level 8.6, Phosphorus Level 3.3, Magnesium Level 2.4, Total Bilirubin < 0.2, Gamma Glutamyl Transpeptidase 29, Aspartate Amino Transf (AST/SGOT) 17, Alanine Aminotransferase (ALT/SGPT) 21, Alkaline Phosphatase 65, Total Creatine Kinase 35L, C-Reactive Protein, Quantitative < 0.3, Pro-B-Type Natriuretic Peptide 300H, Total Protein 7.0, Albumin 3.8, Globulin 3.2, Albumin/Globulin Ratio 1.1, Triglycerides Level 91, Cholesterol Level 233H, LDL Cholesterol 143H, HDL Cholesterol 72H, Cholesterol/ HDL Ratio 3.2L, Thyroid Stimulating Hormone (TSH) 0.897 05/16/17 06:00: Urine Eosinophils None seen Current Medications Medications (Trade) Dose Ordered Sig/Aminata Route PRN Reason Start Time Stop Time Status Last Admin Dose Admin Albuterol/ Ipratropium (DuoNeb 0.5-3(2.5)mg/3ml) 3 ml Q4H PRN HHN dyspnea 05/15/17 00:15 05/20/17 00:14 Amlodipine Besylate (Norvasc) 10 mg DAILY ORAL 05/15/17 09:00 06/14/17 08:59 05/16/17 09:09 Aspirin (Ecotrin) 325 mg DAILY ORAL 05/15/17 09:00 06/14/17 08:59 05/16/17 09:09 Atorvastatin Calcium (Lipitor) 40 mg DAILY ORAL 05/15/17 09:00 06/14/17 08:59 05/16/17 09:09 Azithromycin 500 mg/Dextrose 275 ml @ 275 mls/hr Q24HRS IV 05/15/17 05:00 05/21/17 05:01 05/16/17 05:14 Clopidogrel Bisulfate (Plavix) 75 mg DAILY ORAL 05/15/17 09:00 06/14/17 08:59 05/16/17 09:09 Dextrose (Dextrose 50%) STAT PRN IV Hypoglycemia 05/15/17 00:15 06/14/17 00:14 Guaifenesin/ Dextromethorphan (Robitussin DM) 5 ml Q4H PRN ORAL For Cough 05/15/17 19:00 06/14/17 18:59 05/16/17 09:26 Heparin Sodium (Porcine) (Heparin 5000 units/ml) 5,000 units EVERY 12 HOURS SUBQ 05/15/17 09:00 06/14/17 08:59 05/16/17 09:12 Hydromorphone HCl (Dilaudid) 2 mg Q4H PRN IVP pain 7-10 05/15/17 03:00 05/22/17 02:59 05/16/17 13:00 Levetiracetam (Keppra) 500 mg EVERY 12 HOURS ORAL 05/15/17 09:00 06/14/17 08:59 05/16/17 09:08 Lorazepam (Ativan 2mg/ml 1ml) 0.5 mg Q4H PRN IV For Anxiety 05/15/17 00:15 05/22/17 00:14 Methylprednisolone Sodium Succinate (Solu-MEDROL) 60 mg DAILY IVP 05/16/17 09:00 06/15/17 08:59 05/16/17 09:08 Metoprolol Tartrate (Lopressor) 50 mg Q12HR ORAL 05/15/17 09:00 06/14/17 08:59 05/16/17 09:09 Ondansetron HCl (Zofran) 4 mg Q6H PRN IVP Nausea & Vomiting 05/15/17 00:15 06/14/17 00:14 Piperacillin Sod/ Tazobactam Sod/ Dextrose (Zosyn/D5W) 110 ml @ 27.5 mls/hr Q8H IVPB 05/15/17 01:00 05/22/17 00:59 05/16/17 09:10 Temazepam (Restoril) 15 mg HSPRN PRN ORAL Insomnia 05/15/17 00:15 05/22/17 00:14 05/15/17 00:56 Theophylline (Wilfrido-Dur) 100 mg EVERY 12 HOURS ORAL 05/15/17 09:00 06/14/17 08:59 05/16/17 09:09 TAI SWEENEY May 16, 2017 15:03
[2017-05-17] MEDS ORDERED: Azithromycin 250mg tab ORAL SCH (09:00)
--- NOTE | 2017-05-19 11:20 | Discharge Summary ---
Discharge Summary Hospital Course Date of Admission May 13, 2017 at 03:00 Date of Discharge May 16, 2017 at 15:45 Admitting Diagnosis COPD, CHEST PAIN HPI Benjamin Ring is a 66 year old male who was admitted on May 13, 2017 at 03:00 for Chronic Obstructive Pulmonary Disease/Chest Pain Hospital Course dc summary #[id number] Discharge Medications New Medications: Albuterol Sulfate (Ventolin Hfa) 18 Gm Hfa.aer.ad 1 PUFF INH EVERY 6 HOURS PRN for 30 Days, #18 GM 0 Refills Hydromorphone Hcl (Dilaudid) 1 Mg/1 Ml Liquid 2 MG PO EVERY 4 HOURS for 30 Days, ML Theophylline (Theodur*) 100 Mg Tab.er.12h 100 MG ORAL EVERY 12 HOURS for 30 Days, TAB Continued Medications: Amlodipine Besylate* (Amlodipine Besylate*) 10 Mg Tablet 10 MG ORAL DAILY, TAB Levetiracetam (Keppra) 500 Mg Tablet 500 MG ORAL EVERY 12 HOURS Prednisone* (Prednisone*) 20 Mg Tablet 20 MG ORAL DAILY PRN for Shortness of Breath, TAB Discharge Condition Upon Discharge: stable Discharge Disposition Patient was discharged to Home () Discharge Diagnoses: Discharge Instructions Discharge Instructions Special Instructions I have been assigned to complete a D/C Summary on this account. I was not involved in the patient management Kristine Black NP ([place]) May 19, 2017 11:20
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
== END 2017-05-16 15:45 | disposition home or self-care (01) | DRG 140 ==
LOC: EMR 05-13 00:10 → 2E 05-13 03:00 → EDBEDREQ 05-13 04:35 → 4W 05-14 23:36
DX: J44.1 Chronic obstructive pulmonary disease with (acute) exacerbation (principal); N17.0 Acute kidney failure with tubular necrosis; E11.22 Type 2 diabetes mellitus with diabetic chronic kidney disease; I12.9 Hypertensive chronic kidney disease with stage 1 through stage 4 chronic kidney disease, or unspecified chronic kidney disease; B35.1 Tinea unguium; S82.301 Unspecified fracture of lower end of right tibia; N18.3 Chronic kidney disease, stage 3 (moderate); R07.89 Other chest pain; M54.9 Dorsalgia, unspecified; I25.10 Atherosclerotic heart disease of native coronary artery without angina pectoris; Z95.1 Presence of aortocoronary bypass graft; Z88.6 Allergy status to analgesic agent; Z88.8 Allergy status to other drugs, medicaments and biological substances; Z66 Do not resuscitate; Z87.891 Personal history of nicotine dependence; L97.319 Non-pressure chronic ulcer of right ankle with unspecified severity; G62.9 Polyneuropathy, unspecified; K29.70 Gastritis, unspecified, without bleeding; E03.9 Hypothyroidism, unspecified; S82.61XP Displaced fracture of lateral malleolus of right fibula, subsequent encounter for closed fracture with malunion; V09.9XXD Pedestrian injured in unspecified transport accident, subsequent encounter; I25.2 Old myocardial infarction; G40.909 Epilepsy, unspecified, not intractable, without status epilepticus
CPT/HCPCS: 36415; 71010; 80053; 80061; 80299; 80300; 81003; 82550; 82962; 82977; 83036; 83605; 83735; 83880; 84100; 84443; 84484; 84550; 85007; 85025; 85651; 86140; 87040; 87070; 87081; 87205; 89050; 93005; 93306; 94640; 94664

== ENCOUNTER 2017-09-01 20:42 | Inpatient (IN) | payer MEDICAID, MEDICARE ==
[~2017-09-01] VITALS: Ht 198.1 cm; Wt 72.6 kg
[~2017-09-01 20:42] MED LIST changes: +DILAUDID1 MG/1 ML PO; +THEOPHYLLINE A100 MG ORAL; +VENTOLIN HFA18 GM INH
--- NOTE | 2017-09-01 21:05 | Emergency Room Report ---
History of Present Illness General Chief Complaint: Chest Pain Source: Patient Present Illness HPI [id number] wheeled in from home with chest pain/SOB for 4 days. C/o wheezing. Denies fever/chills, cough Not eating, poor appetite. PMHx: COPD, DM, HTN, CAD, seizures, CKD 3. ?Hospice Echo in April-65% EF Contact, [id number] Min Mcmullen [phone] patient is DNR per verbal discussion with patient. Allergies: Coded Allergies: EGG (Verified Allergy, Unknown, 09/22/15) MEPERIDINE (Verified Allergy, Unknown, 12/21/10) MORPHINE (Verified Allergy, Unknown, Shortness of Breath, 01/24/14) itching,shortness of breath,dyspnea NITROGLYCERIN (Verified Allergy, Unknown, hives, 02/18/17) Patient History Past Medical History: other - see hpi Past Surgical History: none Pertinent Family History: none Social History: Denies: smoking, alcohol use, drug use Immunizations: UTD Reviewed Nursing Documentation: PMH: Agreed, PSxH: Agreed Nursing Documentation-PMH Hx Cardiac Problems: Yes - NC Hx Hypertension: Yes Hx Pacemaker: No Hx Asthma: No Hx COPD: Yes Hx Diabetes: No Hx Cancer: No Hx Dialysis: No - kidney problems Hx Neurological Problems: Yes Hx Cerebrovascular Accident: No Hx Transient Ischemic Attacks: No Hx Alzheimer's Disease: No Hx Encephalitis: No Hx Seizures: Yes Hx Epilepsy: No Hx Multiple Sclerosis: No Hx Cerebral Palsy: No Hx Amyotrophic Lat Sclerosis: No Hx Guillian-[place] Syndrome: No Hx Paralysis: No Hx Peripheral Neuropathy: No Hx Spinal Cord Injury: No Hx Head Trauma: No Hx Traumatic Brain Injury: No Hx Memory Loss: No Hx Concentration Difficulty: No Hx Speech Problem: No Hx Tremors: Yes Hx Vertigo: No Hx Dizziness: No Hx Syncope: Yes Hx Headaches: Yes Hx Aphasia: No Hx Dysphasia: Yes Hx Numbness: No Hx Weakness: Yes Hx Fatigue: No Hx Neurologic Surgery: No Hx Brain Shunt: No Review of Systems All Other Systems: negative except mentioned in HPI Physical Exam Vital Signs Date Time Temp Pulse Resp B/P (MAP) Pulse Ox O2 Delivery O2 Flow Rate FiO2 09/01/17 20:53 97.9 115 22 150/103 94 Room Air Sp02 EP Interpretation: reviewed, abnormal General Appearance: normal inspection, well appearing, no apparent distress, alert, GCS 15, non-toxic, cachetic, thin, other - well appearing elderly male sitting upright in bed Head: normocephalic, atraumatic Eyes: bilateral eye PERRL, bilateral eye EOMI ENT: normal ENT inspection, hearing grossly normal, normal voice Neck: normal inspection, full range of motion, supple, no bony tend Respiratory: normal inspection, no accessory muscle use, speaking full sentences, wheezing Cardiovascular #1: regular rate, rhythm, no edema Gastrointestinal: normal inspection, normal bowel sounds, non tender, soft, no guarding, no hernia Genitourinary: no CVA tenderness Musculoskeletal: normal inspection, back normal, normal range of motion, Donato' s Sign negative Neurologic: normal inspection, alert, oriented x3, responsive, panel maker III-XII nml as tested, motor strength/tone normal, speech normal Psychiatric: normal inspection, judgement/insight normal, mood/affect normal Skin: normal inspection, normal color, no rash Medical Decision Making Diagnostic Impression: Primary Impression: Chest pain Qualified Codes: R07.9 - Chest pain, unspecified Additional Impressions: SOB (shortness of breath) COPD exacerbation Hyperkalemia CKD (chronic kidney disease) Qualified Codes: N18.3 - Chronic kidney disease, stage 3 (moderate) ER Course Labs: H&H stable. No leuks HyperK 5.5. Troponin <.05 CXR: Hyperinflated ECG sinus tachycardia SOB/Chest pain - likely COPD exacerbation - Blood Cx pending - Abx given - BNP elevated in setting of CKD likely unreliable HyperK - Albuterol and calcium given - Kayexelate given Endorsed to Dr Magana for tele admit at 1030pm EKG Diagnostic Results Rate: tachycardiac Rhythm: NSR ST Segments: no acute changes ASA given to the pt in ED: No Rhythm Strip Diag. Results EP Interpretation: yes Rate: 83 Rhythm: NSR, no PVC's, no ectopy Chest X-Ray Diagnostic Results Chest X-Ray Diagnostic Results : Chest X-Ray Ordered: Yes # of Views/Limited/Complete: 1 View Indication: Chest Pain EP Interpretation: Yes Interpretation: no consolidation, no effusion, no pneumothorax, no acute cardiopulmonary disease, other - Sternal wires Impression: Other - Hyperinflated Last Vital Signs Date Time Temp Pulse Resp B/P (MAP) Pulse Ox O2 Delivery O2 Flow Rate FiO2 09/01/17 20:53 97.9 115 22 150/103 94 Room Air Status: improved Disposition: ADMITTED INPATIENT Condition: Serious TREVIN QUIROS M.D. Sep 01, 2017 21:05
[2017-09-01 21:10] VITALS: BP 150/103
[2017-09-01] MEDS ORDERED: Solu-MEDROL 125mg Inj IVP ONE (21:15)
[2017-09-01 22:04] LABS: MEAN CORPUSCULAR HEMOGLOBIN 25.2 PG (27.0-31.0); MEAN CORPUSCULAR HGB CONC 28.8 G/DL (32.0-36.0); MEAN CORPUSCULAR VOLUME 87 FL (80-99); MEAN PLATELET VOLUME 6.6 FL (6.5-10.1); PLATELET COUNT 285 K/UL (150-450); RED BLOOD COUNT 5.55 M/UL (4.70-6.10); WHITE BLOOD COUNT 8.4 K/UL (4.8-10.8)
[2017-09-01 22:08] LABS: BASOPHILS % (AUTO) 0.8 % (0.0-2.0); LYMPHOCYTES % (AUTO) 8.9 % (20.0-45.0); MONOCYTES % (AUTO) 3.3 % (1.0-10.0); NEUTROPHILS % (AUTO) 86.9 % (45.0-75.0)
[2017-09-01] MEDS ORDERED: LORazepam Inj 2mg/ml 1ml IV PRN (22:15)
[2017-09-01] MEDS ORDERED: Hydromorphone 0.5mg/0.5ml inj IVP ONE (22:15)
[2017-09-01] MEDS ORDERED: Promethazine/Codeine 5ml UD ORAL PRN (22:15)
[2017-09-01] MEDS ORDERED: Albuterol/Ipratropium 3ml neb HHN PRN (22:15)
[2017-09-01] MEDS: Albuterol ud Inhalation HHN SCH ×2 (22:24→22:25)
[2017-09-01] MEDS: Ipratropium 0.02% Inh Soln 2.5ml UD HHN SCH ×2 (22:24→22:25)
[2017-09-01 23:10] VITALS: BP 139/88
[2017-09-01 23:19] LABS: ALANINE AMINOTRANSFERASE 12 U/L (12-78); ALBUMIN/GLOBULIN RATIO 0.7 (1.0-2.7); ANION GAP 14 (5-15); ASPARTATE AMINO TRANSFERASE 20 U/L (15-37); CALCIUM 9.1 MG/DL (8.5-10.1); CARBON DIOXIDE 22 MMOL/L (21-32); CHLORIDE 99 MMOL/L (98-107); CKMB 0.7 NG/ML (0.0-3.6); CREATININE 3.2 MG/DL (0.55-1.30); GLOMERULAR FILTRATION RATE 23.6 mL/min (>60); POTASSIUM 5.5 MMOL/L (3.5-5.1); SODIUM 135 MMOL/L (136-145); TOTAL PROTEIN 8.2 G/DL (6.4-8.2)
[2017-09-01] MEDS ORDERED: Sodium Polystyrene Sulfonate 15gm Powder ORAL ONE (23:45)
[2017-09-01] MEDS ORDERED: Calcium Gluconate 1gm/10ml vial IVP ONE (23:45)
[2017-09-02] MEDS ORDERED: DOCUSATE SODIU100 M2 ORAL (00:06)
[2017-09-02] MEDS ORDERED: SUCRALFATE1 GM/10 ML PO (00:06)
[2017-09-02] MEDS ORDERED: METOPROLOL SUCC50 MG ORAL (00:06)
[2017-09-02] MEDS ORDERED: ZANTAC150 MG ORAL (00:06)
[2017-09-02] MEDS ORDERED: OMEPRAZOLE10 M1 ORAL (00:06)
[2017-09-02] MEDS ORDERED: ASPIRIN325 MG ORAL (00:06)
[2017-09-02] MEDS ORDERED: LEVETIRACE500 MG/5 M IV (00:06)
[2017-09-02] MEDS ORDERED: ATORVASTATIN CA40 MG ORAL (00:06)
[2017-09-02] MEDS ORDERED: AMBIEN5 M1 PO (00:06)
[2017-09-02 01:10] VITALS: BP 134/84
[2017-09-02 02:23] VITALS: BP 138/84
[2017-09-02] MEDS: Solu-MEDROL 125mg Inj IV SCH ×6 (06:00→23:44)
[2017-09-02] MEDS: Piperacillin/Tazobactam 2.25 GM in D5W 55 ML IV SCH ×3 (06:00→23:11)
[2017-09-02] MEDS ORDERED: Zosyn 2.25gm inj ONE (06:19)
[2017-09-02 08:00] VITALS: BP 125/70
[2017-09-02] MEDS ORDERED: Ketorolac 30mg Inj IV SCH (08:00)
[2017-09-02] MEDS ORDERED: Metoprolol Tartrate 50mg tab ORAL SCH (09:00)
[2017-09-02] MEDS ORDERED: Heparin 5000 units/ml inj SUBQ SCH (09:00)
[2017-09-02] MEDS ORDERED: Theophylline ER 100mg ORAL SCH ×2 (09:00)
--- NOTE | 2017-09-02 11:32 | Diagnostic Imaging Report ---
Indication: SOB Technique: One view of the chest Comparison: 05/16/17 Findings: Lungs are hyperinflated. The heart size is normal. There is evidence of prior CABG. Is no significant interim change. Bones are intact Impression: COPD changes No acute cardiopulmonary process
[2017-09-02 12:00] VITALS: BP 149/87
--- NOTE | 2017-09-02 14:23 | History and Physical ---
History of Present Illness General Date patient seen: Sep 02, 2017 Reason for Hospitalization: Chest Pain Present Illness HPI 66 year old male with hx COPD, DM, HTN, CAD, seizures wheeled in from home with chest pain/SOB for 4 days. He was also C/o wheezing. Denies fever/chills, cough pt is admitted to telemetry for ACs and acute exacerbation of COPD Allergies: Coded Allergies: EGG (Verified Allergy, Unknown, 09/22/15) MEPERIDINE (Verified Allergy, Unknown, 12/21/10) MORPHINE (Verified Allergy, Unknown, Shortness of Breath, 01/24/14) itching,shortness of breath,dyspnea NITROGLYCERIN (Verified Allergy, Unknown, hives, 02/18/17) Medication History Scheduled Amlodipine Besylate* (Amlodipine Besylate*), 10 MG ORAL DAILY, (Reported) Aspirin* (Aspirin Ec*), 325 MG ORAL DAILY, (Reported) Aspirin* (Aspirin*), 325 MG ORAL DAILY, (Reported) Atorvastatin Calcium* (Atorvastatin Calcium*), 40 MG ORAL DAILY, (Reported) Atorvastatin Calcium* (Atorvastatin Calcium*), 40 MG ORAL BEDTIME, (Reported) Clopidogrel Bisulfate* (Plavix*), 75 MG ORAL DAILY, (Reported) Docusate Sodium (Docusate Sodium), 100 MG ORAL DAILY, (Reported) Hydromorphone Hcl (Dilaudid), 2 MG PO EVERY 4 HOURS Levetiracetam (Keppra), 500 MG ORAL EVERY 12 HOURS, (Reported) Metoprolol Succinate* (Metoprolol Succinate*), 50 MG ORAL DAILY, (Reported) Metoprolol Tartrate* (Metoprolol Tartrate*), 50 MG ORAL DAILY, (Reported) Omeprazole (Omeprazole), 10 MG ORAL DAILY, (Reported) Pantoprazole* (Pantoprazole*), 40 MG ORAL DAILY, (Reported) Ranitidine Hcl* (Zantac*), 150 MG ORAL Q12HR Ranitidine Hcl* (Zantac*), 150 MG ORAL DAILY, (Reported) Theophylline (Theodur*), 100 MG ORAL EVERY 12 HOURS Scheduled PRN Albuterol Sulfate (Ventolin Hfa), 1 PUFF INH EVERY 6 HOURS PRN Docusate Sodium* (Colace*), 100 MG ORAL DAILY PRN for Constipation, (Reported) Ondansetron Hcl* (Zofran*), 8 MG ORAL Q6H PRN for Nausea & Vomiting, (Reported) Prednisone* (Prednisone*), 20 MG ORAL DAILY PRN for Shortness of Breath, ( Reported) Temazepam* (Temazepam*), 30 MG ORAL BEDTIME PRN for Insomnia, (Reported) Zolpidem Tartrate* (Ambien*), 10 MG ORAL HS PRN for Insomnia, (Reported) Miscellaneous Medications Levetiracetam (Levetiracetam), 500 MG IV, (Reported) Sucralfate (Sucralfate), 1 GM PO, (Reported) Zolpidem Tartrate (Ambien), 5 MG PO, (Reported) Patient History Healthcare decision maker Resuscitation status Full Code Advanced Directive on File Past Medical/Surgical History Past Medical/Surgical History: (1) Hx of CABG (2) CKD (chronic kidney disease) (3) DM (diabetes mellitus) (4) HTN (hypertension) (5) Emphysema lung (6) Osteomyelitis of right leg Review of Systems All Other Systems: negative except mentioned in HPI Physical Exam General Appearance: WD/WN, alert, lethargic Lines, tubes and drains: peripheral, central line HEENT: normocephalic, atraumatic Neck: non-tender, normal alignment, supple Respiratory/Chest: chest wall non-tender, lungs clear, normal breath sounds Breasts: no masses Cardiovascular/Chest: normal peripheral pulses Last 24 Hour Vital Signs Date Time Temp Pulse Resp B/P (MAP) Pulse Ox O2 Delivery O2 Flow Rate FiO2 09/02/17 09:03 114 125/70 09/02/17 09:02 114 125/70 09/02/17 08:01 90 18 98 Nasal Cannula 2.0 28 09/02/17 07:52 Nasal Cannula 2.0 28 09/02/17 07:52 28 09/02/17 07:52 95 Nasal Cannula 2.0 28 09/02/17 07:52 85 18 93 Nasal Cannula 2.0 28 09/02/17 07:52 85 18 Nasal Cannula 2.0 28 09/02/17 04:00 104 09/02/17 02:23 96.7 104 24 138/84 97 Nasal Cannula 3.0 09/02/17 01:20 97.9 101 14 134/84 98 Nasal Cannula 3.0 21 09/02/17 01:10 97.9 101 14 134/84 98 Nasal Cannula 3.0 09/01/17 23:10 97.9 104 18 139/88 97 Nasal Cannula 3.0 09/01/17 21:10 97.9 115 22 150/103 94 Room Air 09/01/17 21:10 115 22 Room Air 09/01/17 20:53 97.9 115 22 150/103 94 Room Air 09/01/17 20:45 94 18 99 Room Air 21 09/01/17 20:45 21 09/01/17 20:45 91 18 92 Room Air 21 09/01/17 20:45 91 18 Room Air 21 Intake and Output 09/02/17 09/03/17 19:00 07:00 Intake Total 120 ml Balance 120 ml Intake Oral 120 ml Laboratory Tests Test 09/01/17 21:45 White Blood Count 8.4 K/UL (4.8-10.8) Red Blood Count 5.55 M/UL (4.70-6.10) Hemoglobin 14.0 G/DL (14.2-18.0) L Hematocrit 48.5 % (42.0-52.0) Mean Corpuscular Volume 87 FL (80-99) Mean Corpuscular Hemoglobin 25.2 PG (27.0-31.0) L Mean Corpuscular Hemoglobin Concent 28.8 G/DL (32.0-36.0) L Red Cell Distribution Width 18.0 % (11.6-14.8) H Platelet Count 285 K/UL (150-450) Mean Platelet Volume 6.6 FL (6.5-10.1) Neutrophils (%) (Auto) 86.9 % (45.0-75.0) H Lymphocytes (%) (Auto) 8.9 % (20.0-45.0) L Monocytes (%) (Auto) 3.3 % (1.0-10.0) Eosinophils (%) (Auto) 0.0 % (0.0-3.0) Basophils (%) (Auto) 0.8 % (0.0-2.0) Sodium Level 135 MMOL/L (136-145) L Potassium Level 5.5 MMOL/L (3.5-5.1) H Chloride Level 99 MMOL/L (98-107) Carbon Dioxide Level 22 MMOL/L (21-32) Anion Gap 14 (5-15) Blood Urea Nitrogen 55 mg/dL (7-18) H Creatinine 3.2 MG/DL (0.55-1.30) H Estimat Glomerular Filtration Rate 23.6 mL/min (>60) Glucose Level 149 MG/DL (74-106) H Calcium Level 9.1 MG/DL (8.5-10.1) Total Bilirubin 0.3 MG/DL (0.2-1.0) Aspartate Amino Transf (AST/SGOT) 20 U/L (15-37) Alanine Aminotransferase (ALT/SGPT) 12 U/L (12-78) Alkaline Phosphatase 69 U/L (46-116) Total Creatine Kinase 47 U/L (26-308) Creatine Kinase MB 0.7 NG/ML (0.0-3.6) Creatine Kinase MB Relative Index 1.4 Troponin I 0.034 ng/mL (0.000-0.056) Pro-B-Type Natriuretic Peptide 2096 (0-125) H Total Protein 8.2 G/DL (6.4-8.2) Albumin 3.3 G/DL (3.4-5.0) L Globulin 4.9 g/dL Albumin/Globulin Ratio 0.7 (1.0-2.7) L Height (Feet): 6 Height (Inches): 1.00 Weight (Pounds): 160 Medications Current Medications Medications (Trade) Dose Ordered Sig/Aminata Route PRN Reason Start Time Stop Time Status Last Admin Dose Admin Albuterol/ Ipratropium (DuoNeb 0.5-3(2.5)mg/3ml) 3 ml EVERY 4 HOURS PRN HHN dyspnea 09/01/17 22:15 09/06/17 22:14 09/02/17 07:52 Amlodipine Besylate (Norvasc) 10 mg DAILY ORAL 09/02/17 09:00 10/02/17 08:59 09/02/17 09:03 Clopidogrel Bisulfate (Plavix) 75 mg DAILY ORAL 09/02/17 09:00 10/02/17 08:59 09/02/17 09:05 Dextrose (Dextrose 50%) STAT PRN IV Hypoglycemia 09/01/17 22:15 10/01/17 22:14 Heparin Sodium (Porcine) (Heparin 5000 units/ml) 5,000 units EVERY 12 HOURS SUBQ 09/02/17 09:00 10/02/17 08:59 09/02/17 09:16 Hydromorphone HCl (Dilaudid) 3 mg Q3H PRN IVP pain 09/02/17 12:30 09/09/17 12:29 09/02/17 13:09 Levetiracetam (Keppra) 500 mg EVERY 12 HOURS ORAL 09/02/17 09:00 10/02/17 08:59 09/02/17 09:04 Lorazepam (Ativan 2mg/ml 1ml) 0.5 mg Q4H PRN IV For Anxiety 09/01/17 22:15 09/08/17 22:14 Methylprednisolone Sodium Succinate (Solu-MEDROL) 60 mg EVERY 6 HOURS IV 09/02/17 00:00 10/02/17 00:00 09/02/17 13:10 Metoprolol Tartrate (Lopressor) 50 mg DAILY ORAL 09/02/17 09:00 10/02/17 08:59 09/02/17 09:02 Ondansetron HCl (Zofran) 4 mg Q6H PRN IVP Nausea & Vomiting 09/01/17 22:15 10/01/17 22:14 Piperacillin Sod/ Tazobactam Sod 2.25 gm/Dextrose 55 ml @ 110 mls/hr EVERY 8 HOURS IV 09/02/17 06:00 09/07/17 05:59 09/02/17 13:11 Promethazine HCl/ Codeine (Phenergan with Codeine) 5 ml EVERY 6 HOURS PRN ORAL cough 09/01/17 22:15 10/01/17 22:14 Temazepam (Restoril) 15 mg HSPRN PRN ORAL Insomnia 09/01/17 22:15 09/08/17 22:14 Theophylline (Wilfrido-Dur) 100 mg EVERY 12 HOURS ORAL 09/02/17 09:00 10/02/17 08:59 09/02/17 09:01 Assessment/Plan Problem List: (1) COPD exacerbation ICD Codes: J44.1 - Obstructive chronic bronchitis with exacerbation SNOMED: 936725675 (2) Emphysema lung ICD Codes: J43.9 - Emphysema, unspecified SNOMED: 85192640 (3) CKD (chronic kidney disease) ICD Codes: N18.9 - Chronic kidney disease, unspecified SNOMED: 837485876 Qualifiers: Qualified Codes: N18.3 - Chronic kidney disease, stage 3 (moderate) (4) Bronchitis ICD Codes: J40 - Bronchitis SNOMED: 52430897 (5) Hx of CABG ICD Codes: Z95.1 - History of coronary artery bypass surgery SNOMED: 619601434 (6) DM (diabetes mellitus) ICD Codes: E11.9 - Diabetes mellitus SNOMED: 00470341 (7) Osteomyelitis of right leg ICD Codes: M86.9 - Osteomyelitis, unspecified SNOMED: 913835539 (8) HTN (hypertension) ICD Codes: I10 - Hypertension SNOMED: 22131056 Assessment/Plan respiratory treatment IV abx/ steroids ID evaluation check cultures symptomatic treatment. TAI SWEENEY Sep 02, 2017 14:23
[2017-09-02] MEDS ORDERED: Tubing IV Secondary IV ONE (14:39)
[2017-09-02] MEDS ORDERED: NS 500ML IV ONE (14:39)
[2017-09-02 15:58] LABS: BASOPHILS % (AUTO) 1.7 % (0.0-2.0); LYMPHOCYTES % (AUTO) 10.6 % (20.0-45.0); MEAN CORPUSCULAR HEMOGLOBIN 26.4 PG (27.0-31.0); MEAN CORPUSCULAR HGB CONC 30.4 G/DL (32.0-36.0); MEAN CORPUSCULAR VOLUME 87 FL (80-99); MEAN PLATELET VOLUME 6.5 FL (6.5-10.1); MONOCYTES % (AUTO) 3.9 % (1.0-10.0); NEUTROPHILS % (AUTO) 83.8 % (45.0-75.0); PLATELET COUNT 264 K/UL (150-450); RED BLOOD COUNT 5.27 M/UL (4.70-6.10); RED CELL DISTRIBUTION WIDTH 17.9 % (11.6-14.8); WHITE BLOOD COUNT 8.1 K/UL (4.8-10.8)
[2017-09-02 16:14] LABS: ALANINE AMINOTRANSFERASE 9 U/L (12-78); ALBUMIN/GLOBULIN RATIO 0.7 (1.0-2.7); ANION GAP 11 (5-15); ASPARTATE AMINO TRANSFERASE 10 U/L (15-37); CALCIUM 8.5 MG/DL (8.5-10.1); CARBON DIOXIDE 24 MMOL/L (21-32); CHLORIDE 100 MMOL/L (98-107); CREATININE 2.5 MG/DL (0.55-1.30); GLOMERULAR FILTRATION RATE 31.4 mL/min (>60); POTASSIUM 4.6 MMOL/L (3.5-5.1); SODIUM 135 MMOL/L (136-145); TOTAL PROTEIN 7.1 G/DL (6.4-8.2)
[2017-09-02 16:18] VITALS: BP 130/70
--- NOTE | 2017-09-02 17:39 | Wound Care Consultation ---
Wound Assessment Wound Assessment : Wound Number: 1 Wound Present on Admission: Yes New Wound: No Status Change of Wound: No Wound Location Body Site Modif: right, lateral Wound Location Body Site: malleolus/ankle - area Wound Type: other - chronic open wound Rolando Test: Does not Rolando Wound Thickness: Full Thickness Wound Length: 3.0 Wound Width: 2.0 Wound Depth: 0.[address] of Wound [address]/Red: 100 Wound Drainage Description: Serosanguineous Wound Drainage Amount: Scant Wound Drainage Odor: None/Absent Tissue Surrounding Wound: full thickness scar tissue Wound General Appearance: Reddened, Draining Wound Comment #1 Right lateral lower leg ankle area, non-healing full thickness open wound. Recommendation. -Right lateral lower leg ankle area, non-healing full thickness open wound. Cleanse with saline, pat dry, apply Hydrogel, cover with calcium alginate, secure with bordered gauze daily and PRN soiled/dislodged -Turn and reposition. -Keep clean and dry. -Offload both heels -Heel protector on both heels . -Optimize nutrition. -Assess and f/u accordingly for any changes ASHELY TAN RN Sep 02, 2017 17:39
[2017-09-02] MEDS ORDERED: LORazepam Inj 2mg/ml 1ml IV PRN (18:15)
[2017-09-02 20:00] VITALS: BP 124/65
[2017-09-02] MEDS: Theophylline ER 100mg ORAL SCH (20:25)
[2017-09-02] MEDS: Heparin 5000 units/ml inj SUBQ SCH (20:32)
[2017-09-03] MEDS: Albuterol/Ipratropium 3ml neb HHN PRN ×3 (03:30→15:48)
[2017-09-03 04:00] VITALS: BP 146/72
[2017-09-03] MEDS: Piperacillin/Tazobactam 2.25 GM in D5W 55 ML IV SCH ×3 (06:55→20:53)
[2017-09-03] MEDS: Solu-MEDROL 125mg Inj IV SCH ×4 (06:55→23:39)
[2017-09-03 08:00] VITALS: BP 118/64
[2017-09-03] MEDS: Theophylline ER 100mg ORAL SCH ×2 (08:28→20:47)
[2017-09-03] MEDS: Heparin 5000 units/ml inj SUBQ SCH ×2 (08:34→20:52)
[2017-09-03] MEDS: Metoprolol 25mg tab ORAL SCH ×2 (09:00→20:48)
[2017-09-03 13:05] VITALS: BP 131/73
[2017-09-03 16:00] VITALS: BP 127/86
--- NOTE | 2017-09-03 18:54 | Pulmonology Progress Note ---
Assessment/Plan Problems: (1) COPD exacerbation (2) Emphysema lung (3) CKD (chronic kidney disease) (4) Bronchitis (5) Hx of CABG (6) DM (diabetes mellitus) (7) Osteomyelitis of right leg (8) HTN (hypertension) Assessment/Plan respiratory treatment swallow study gi evaluation pain control Subjective Constitutional: Reports: no symptoms HEENT: Repors: no symptoms Respiratory: Reports: no symptoms Allergies: Coded Allergies: EGG (Verified Allergy, Unknown, 09/22/15) MEPERIDINE (Verified Allergy, Unknown, 12/21/10) MORPHINE (Verified Allergy, Unknown, Shortness of Breath, 01/24/14) itching,shortness of breath,dyspnea NITROGLYCERIN (Verified Allergy, Unknown, hives, 02/18/17) Objective Last 24 Hour Vital Signs Date Time Temp Pulse Resp B/P (MAP) Pulse Ox O2 Delivery O2 Flow Rate FiO2 09/03/17 16:04 84 18 99 Nasal Cannula 2.0 09/03/17 16:00 97.5 91 19 127/86 Room Air 09/03/17 15:48 84 18 95 Nasal Cannula 2.0 09/03/17 13:05 97.9 92 19 131/73 100 Room Air 09/03/17 09:00 86 118/64 09/03/17 09:00 86 118/64 09/03/17 08:00 97.5 86 16 118/64 97 Room Air 09/03/17 07:26 87 18 98 Nasal Cannula 2.0 09/03/17 07:23 89 18 Nasal Cannula 2.0 09/03/17 07:23 Nasal Cannula 2.0 09/03/17 07:23 89 18 93 Nasal Cannula 2.0 09/03/17 07:23 93 Nasal Cannula 2.0 09/03/17 04:00 97.9 77 18 146/72 90 Room Air 09/03/17 03:45 82 18 98 Nasal Cannula 2.0 09/03/17 03:30 77 18 93 Nasal Cannula 2.0 09/02/17 20:00 97.5 87 18 124/65 96 Room Air 09/02/17 19:00 Nasal Cannula 2.0 28 09/02/17 19:00 82 18 Nasal Cannula 2.0 09/02/17 19:00 96 Nasal Cannula 2.0 28 Intake and Output 09/03/17 09/04/17 19:00 07:00 Intake Total 55 ml Balance 55 ml IV Total 55 ml General Appearance: cachetic HEENT: normocephalic, atraumatic Respiratory/Chest: chest wall non-tender, lungs clear Cardiovascular: normal peripheral pulses Microbiology Date/Time Source Procedure Growth Status 09/01/17 22:00 Blood Blood Culture - Preliminary NO GROWTH AFTER 24 HOURS Resulted 09/01/17 21:45 Blood Blood Culture - Preliminary NO GROWTH AFTER 24 HOURS Resulted Current Medications Medications (Trade) Dose Ordered Sig/Aminata Route PRN Reason Start Time Stop Time Status Last Admin Dose Admin Albuterol/ Ipratropium (DuoNeb 0.5-3(2.5)mg/3ml) 3 ml Q4H PRN HHN dyspnea 09/02/17 18:00 09/07/17 17:59 09/03/17 15:48 Amlodipine Besylate (Norvasc) 10 mg DAILY ORAL 09/03/17 09:00 10/02/17 08:59 Clopidogrel Bisulfate (Plavix) 75 mg DAILY ORAL 09/03/17 09:00 10/02/17 08:59 09/03/17 08:28 Dextrose (Dextrose 50%) STAT PRN IV Hypoglycemia 09/02/17 17:30 10/01/17 17:29 Heparin Sodium (Porcine) (Heparin 5000 units/ml) 5,000 units EVERY 12 HOURS SUBQ 09/02/17 21:00 10/02/17 08:59 09/03/17 08:34 Hydromorphone HCl (Dilaudid) 3 mg Q3H PRN IVP PAIN 4-10 09/02/17 17:30 09/09/17 17:29 09/03/17 16:20 Levetiracetam (Keppra) 500 mg EVERY 12 HOURS ORAL 09/02/17 21:00 10/02/17 08:59 09/03/17 08:28 Lorazepam (Ativan 2mg/ml 1ml) 0.5 mg Q4H PRN IV For Anxiety 09/02/17 18:15 09/08/17 22:14 Methylprednisolone Sodium Succinate (Solu-MEDROL) 60 mg EVERY 6 HOURS IV 09/02/17 18:00 10/02/17 00:00 09/03/17 18:39 Metoprolol Tartrate (Lopressor) 25 mg Q12HR ORAL 09/03/17 09:00 10/03/17 08:59 Ondansetron HCl (Zofran) 4 mg Q6H PRN IVP Nausea & Vomiting 09/02/17 18:00 10/01/17 17:59 Piperacillin Sod/ Tazobactam Sod 2.25 gm/Dextrose 55 ml @ 110 mls/hr EVERY 8 HOURS IV 09/02/17 22:00 09/07/17 21:59 09/03/17 13:21 Promethazine HCl/ Codeine (Phenergan with Codeine) 5 ml Q6H PRN ORAL cough 09/02/17 18:00 10/02/17 17:59 Temazepam (Restoril) 15 mg HSPRN PRN ORAL Insomnia 09/02/17 21:00 09/08/17 20:59 Theophylline (Wilfrido-Dur) 100 mg EVERY 12 HOURS ORAL 09/02/17 21:00 10/02/17 08:59 09/03/17 08:28 TAI SWEENEY Sep 03, 2017 18:54
[2017-09-03 20:00] VITALS: BP 138/78
[2017-09-04] VITALS: BP 141/79
[2017-09-04 04:00] VITALS: BP 135/80
[2017-09-04] MEDS: Piperacillin/Tazobactam 2.25 GM in D5W 55 ML IV SCH ×3 (04:59→20:49)
[2017-09-04] MEDS: Solu-MEDROL 125mg Inj IV SCH ×3 (04:59→20:49)
[2017-09-04 07:39] LABS: MEAN CORPUSCULAR HEMOGLOBIN 26.5 PG (27.0-31.0); MEAN CORPUSCULAR HGB CONC 30.7 G/DL (32.0-36.0); MEAN CORPUSCULAR VOLUME 86 FL (80-99); MEAN PLATELET VOLUME 6.8 FL (6.5-10.1); PLATELET COUNT 316 K/UL (150-450); RED CELL DISTRIBUTION WIDTH 17.3 % (11.6-14.8); WHITE BLOOD COUNT 7.5 K/UL (4.8-10.8)
[2017-09-04 07:50] LABS: ANION GAP 12 (5-15); CALCIUM 8.3 MG/DL (8.5-10.1); CARBON DIOXIDE 24 MMOL/L (21-32); CHLORIDE 96 MMOL/L (98-107); CREATININE 1.8 MG/DL (0.55-1.30); GLOMERULAR FILTRATION RATE 45.8 mL/min (>60); POTASSIUM 3.7 MMOL/L (3.5-5.1); SODIUM 131 MMOL/L (136-145)
[2017-09-04 08:00] VITALS: BP 117/66
[2017-09-04] MEDS: Albuterol/Ipratropium 3ml neb HHN PRN ×2 (08:19→15:51)
[2017-09-04] MEDS: Theophylline ER 100mg ORAL SCH ×2 (08:25→20:24)
[2017-09-04] MEDS: Metoprolol 25mg tab ORAL SCH ×2 (08:33→20:25)
[2017-09-04] MEDS: Heparin 5000 units/ml inj SUBQ SCH ×2 (08:33→20:26)
[2017-09-04] MEDS: Promethazine/Codeine 5ml UD ORAL PRN ×2 (10:26→20:24)
[2017-09-04 11:37] LABS: ANISOCYTOSIS 1+; BAND NEUTROPHILS % (MANUAL) 0 % (0-8); BASOPHILS % (MANUAL) 0 % (0-2); EOSINOPHILS % (MANUAL) 0 % (0-3); HYPOCHROMASIA 1+; LYMPHOCYTES % (MANUAL) 12 % (20-45); NEUTROPHILS % (MANUAL) 86 % (45-75); PLATELET ESTIMATE ADEQUATE; PLATELET MORPHOLOGY NORMAL; TOTAL CELLS COUNTED 100
[2017-09-04 12:00] VITALS: BP 145/77
[2017-09-04 15:44] VITALS: BP 137/66
--- NOTE | 2017-09-04 17:24 | GI Initial Consult Note ---
Sweeney,Nancy Celestine N.P. 09/04/17 1724: History of Present Illness General Date patient seen: Sep 04, 2017 Time patient seen: 10:00 Reason for Hospitalization: Chest Pain Referring physician: TAI ALEJANDRA Reason for Consultation: Odynophagia Present Illness HPI [id number] wheeled in from home with chest pain/SOB for 4 days. C/o wheezing. Denies fever/chills, cough Not eating, poor appetite. PMHx: COPD, DM, HTN, CAD, seizures, CKD 3. ?Hospice Echo in April 60-65% EF. GI consulted for odynophagia. HPI as noted above. Pt seen on floor, awake A& Ox4 NAD with no active s/sx of N/V/D. Per patient, he has had a decreased in appetite due to the painful swallowing. ST evaluation noted. Patient presents today with anemia and hypoalbuminemia. Noted patient had EGD/colonoscopy here at [place] on 12/09. Home Meds Active Scripts Albuterol Sulfate (VENTOLIN HFA) 18 Gm Hfa.aer.ad, 1 PUFF INH EVERY 6 HOURS Y for 30 Days, #18 GM 0 Refills Prov:TAI SWEENEY 05/16/17 Hydromorphone Hcl (DILAUDID) 1 Mg/1 Ml Liquid, 2 MG PO EVERY 4 HOURS for 30 Days , ML Prov:TAI SWEENEY 05/16/17 Theophylline (THEODUR*) 100 Mg Tab.er.12h, 100 MG ORAL EVERY 12 HOURS for 30 Days, TAB Prov:TAI SWEENEY 05/16/17 Ranitidine Hcl* (ZANTAC*) 150 Mg Tablet, 150 MG ORAL Q12HR, #60 TAB Prov:Wayne (Jagdish)Kristine [employer] 02/10/16 Reported Medications Zolpidem Tartrate (Ambien) 5 Mg Tablet, 5 MG PO, TAB 09/02/17 Metoprolol Succinate* (METOPROLOL SUCCINATE*) 50 Mg Tab.er.24h, 50 MG ORAL DAILY , TAB 09/02/17 Aspirin* (ASPIRIN*) 325 Mg Tablet, 325 MG ORAL DAILY, TAB 09/02/17 Atorvastatin Calcium* (ATORVASTATIN CALCIUM*) 40 Mg Tablet, 40 MG ORAL BEDTIME, TAB 09/02/17 Sucralfate (SUCRALFATE) 1 Gm/10 Ml Oral.susp, 1 GM PO, ML 09/02/17 Ranitidine Hcl* (ZANTAC*) 150 Mg Tablet, 150 MG ORAL DAILY, #30 TAB 0 Refills 09/02/17 Levetiracetam (LEVETIRACETAM) 500 Mg/5 Ml Vial, 500 MG IV, VIAL 09/02/17 Docusate Sodium (DOCUSATE SODIUM) 100 Mg Tablet, 100 MG ORAL DAILY, #30 TAB 0 Refills 09/02/17 Omeprazole (OMEPRAZOLE) 10 Mg Capsule.dr, 10 MG ORAL DAILY, #30 CAP 0 Refills 09/02/17 Ondansetron Hcl* (ZOFRAN*) 8 Mg Tablet, 8 MG ORAL Q6H Y for Nausea & Vomiting, TAB 02/18/17 Zolpidem Tartrate* (AMBIEN*) 10 Mg Tablet, 10 MG ORAL HS Y for Insomnia, TAB 02/18/17 Temazepam* (TEMAZEPAM*) 30 Mg Capsule, 30 MG ORAL BEDTIME Y for Insomnia, CAP 02/18/17 Prednisone* (PREDNISONE*) 20 Mg Tablet, 20 MG ORAL DAILY Y for Shortness of Breath, TAB 02/18/17 Pantoprazole* (PANTOPRAZOLE*) 40 Mg Tablet.dr, 40 MG ORAL DAILY, TAB 02/18/17 Metoprolol Tartrate* (METOPROLOL TARTRATE*) 50 Mg Tablet, 50 MG ORAL DAILY, TAB Patient pill bottle states 1 tablet BID 02/18/17 Levetiracetam (KEPPRA) 500 Mg Tablet, 500 MG ORAL EVERY 12 HOURS 02/18/17 Docusate Sodium* (COLACE*) 100 Mg Capsule, 100 MG ORAL DAILY Y for Constipation , CAP 02/18/17 Atorvastatin Calcium* (ATORVASTATIN CALCIUM*) 40 Mg Tablet, 40 MG ORAL DAILY, TAB 02/18/17 Aspirin* (ASPIRIN EC*) 325 Mg Tablet.dr, 325 MG ORAL DAILY, TAB 04/18/15 Amlodipine Besylate* (AMLODIPINE BESYLATE*) 10 Mg Tablet, 10 MG ORAL DAILY, TAB 09/07/14 Clopidogrel Bisulfate* (PLAVIX*) 75 Mg Tablet, 75 MG ORAL DAILY, TAB 09/07/14 Med list reviewed/reconciled: Yes Allergies: Coded Allergies: EGG (Verified Allergy, Unknown, 09/22/15) MEPERIDINE (Verified Allergy, Unknown, 12/21/10) MORPHINE (Verified Allergy, Unknown, Shortness of Breath, 01/24/14) itching,shortness of breath,dyspnea NITROGLYCERIN (Verified Allergy, Unknown, hives, 02/18/17) Patient History History Provided By: Patient, Medical Record PMH Narrative Past Medical History: other - see hpi Past Surgical History: none Pertinent Family History: none Social History: Denies: smoking, alcohol use, drug use Immunizations: UTD Reviewed Nursing Documentation: PMH: Agreed, PSxH: Agreed Nursing Documentation-PMH Hx Cardiac Problems: Yes - MA Hx Hypertension: Yes Hx Pacemaker: No Hx Asthma: No Hx COPD: Yes Hx Diabetes: No Hx Cancer: No Hx Dialysis: No - kidney problems Hx Neurological Problems: Yes Hx Cerebrovascular Accident: No Hx Transient Ischemic Attacks: No Hx Alzheimer's Disease: No Hx Encephalitis: No Hx Seizures: Yes Hx Epilepsy: No Hx Multiple Sclerosis: No Hx Cerebral Palsy: No Hx Amyotrophic Lat Sclerosis: No Hx Guillian-Holden Syndrome: No Hx Paralysis: No Hx Peripheral Neuropathy: No Hx Spinal Cord Injury: No Hx Head Trauma: No Hx Traumatic Brain Injury: No Hx Memory Loss: No Hx Concentration Difficulty: No Hx Speech Problem: No Hx Tremors: Yes Hx Vertigo: No Hx Dizziness: No Hx Syncope: Yes Hx Headaches: Yes Hx Aphasia: No Hx Dysphasia: Yes Hx Numbness: No Hx Weakness: Yes Hx Fatigue: No Hx Neurologic Surgery: No Hx Brain Shunt: No Review of Systems All Other Systems: negative except mentioned in HPI Physical Exam Vital Signs Date Time Temp Pulse Resp B/P (MAP) Pulse Ox O2 Delivery O2 Flow Rate FiO2 09/01/17 20:45 91 18 Room Air 21 09/01/17 20:45 92 09/01/17 20:53 97.9 150/103 09/01/17 23:10 3.0 Sp02 EP Interpretation: reviewed Labs Laboratory Tests Test 09/04/17 05:45 White Blood Count 7.5 K/UL (4.8-10.8) Red Blood Count 4.80 M/UL (4.70-6.10) Hemoglobin 12.7 G/DL (14.2-18.0) L Hematocrit 41.5 % (42.0-52.0) L Mean Corpuscular Volume 86 FL (80-99) Mean Corpuscular Hemoglobin 26.5 PG (27.0-31.0) L Mean Corpuscular Hemoglobin Concent 30.7 G/DL (32.0-36.0) L Red Cell Distribution Width 17.3 % (11.6-14.8) H Platelet Count 316 K/UL (150-450) Mean Platelet Volume 6.8 FL (6.5-10.1) Neutrophils (%) (Auto) % (45.0-75.0) Lymphocytes (%) (Auto) % (20.0-45.0) Monocytes (%) (Auto) % (1.0-10.0) Eosinophils (%) (Auto) % (0.0-3.0) Basophils (%) (Auto) % (0.0-2.0) Differential Total Cells Counted 100 Neutrophils % (Manual) 86 % (45-75) H Lymphocytes % (Manual) 12 % (20-45) L Monocytes % (Manual) 2 % (1-10) Eosinophils % (Manual) 0 % (0-3) Basophils % (Manual) 0 % (0-2) Band Neutrophils 0 % (0-8) Platelet Estimate Adequate Platelet Morphology Normal Hypochromasia 1+ Anisocytosis 1+ Sodium Level 131 MMOL/L (136-145) L Potassium Level 3.7 MMOL/L (3.5-5.1) Chloride Level 96 MMOL/L (98-107) L Carbon Dioxide Level 24 MMOL/L (21-32) Anion Gap 12 (5-15) Blood Urea Nitrogen 42 mg/dL (7-18) H Creatinine 1.8 MG/DL (0.55-1.30) H Estimat Glomerular Filtration Rate 45.8 mL/min (>60) Glucose Level 181 MG/DL (74-106) H Calcium Level 8.3 MG/DL (8.5-10.1) L General Appearance: well appearing, no apparent distress, alert, thin Head: normocephalic EENT: normal ENT inspection Neck: supple Respiratory: normal breath sounds, no retraction Cardiovascular: normal rate Gastrointestinal: normal inspection, non tender, soft Rectal: deferred Genitourinary: no CVA tenderness Musculoskeletal: back normal Neurologic: normal inspection, alert, oriented x3, responsive Psychiatric: normal inspection, judgement/insight normal, memory normal Skin: normal inspection, normal color, no rash, warm/dry Lymphatic: normal inspection, no adenopathy Current Medications Current Medications Medications (Trade) Dose Ordered Sig/Aminata Route PRN Reason Start Time Stop Time Status Last Admin Dose Admin Albuterol/ Ipratropium (DuoNeb 0.5-3(2.5)mg/3ml) 3 ml Q4H PRN HHN dyspnea 09/02/17 18:00 09/07/17 17:59 09/04/17 15:51 Amlodipine Besylate (Norvasc) 10 mg DAILY ORAL 09/03/17 09:00 10/02/17 08:59 Clopidogrel Bisulfate (Plavix) 75 mg DAILY ORAL 09/03/17 09:00 10/02/17 08:59 09/04/17 08:25 Dextrose (Dextrose 50%) STAT PRN IV Hypoglycemia 09/02/17 17:30 10/01/17 17:29 Heparin Sodium (Porcine) (Heparin 5000 units/ml) 5,000 units EVERY 12 HOURS SUBQ 09/02/17 21:00 10/02/17 08:59 09/04/17 08:33 Hydromorphone HCl (Dilaudid) 3 mg Q3H PRN IVP PAIN 4-10 09/02/17 17:30 09/09/17 17:29 09/04/17 14:49 Levetiracetam (Keppra) 500 mg EVERY 12 HOURS ORAL 09/02/17 21:00 10/02/17 08:59 09/04/17 08:25 Lorazepam (Ativan 2mg/ml 1ml) 0.5 mg Q4H PRN IV For Anxiety 09/02/17 18:15 09/08/17 22:14 Methylprednisolone Sodium Succinate (Solu-MEDROL) 60 mg EVERY 6 HOURS IV 09/02/17 18:00 10/02/17 00:00 09/04/17 11:37 Metoprolol Tartrate (Lopressor) 25 mg Q12HR ORAL 09/03/17 09:00 10/03/17 08:59 09/03/17 20:48 Ondansetron HCl (Zofran) 4 mg Q6H PRN IVP Nausea & Vomiting 09/02/17 18:00 10/01/17 17:59 Piperacillin Sod/ Tazobactam Sod 2.25 gm/Dextrose 55 ml @ 110 mls/hr EVERY 8 HOURS IV 09/02/17 22:00 09/07/17 21:59 09/04/17 13:13 Promethazine HCl/ Codeine (Phenergan with Codeine) 5 ml Q6H PRN ORAL cough 09/02/17 18:00 10/02/17 17:59 09/04/17 10:26 Temazepam (Restoril) 15 mg HSPRN PRN ORAL Insomnia 09/02/17 21:00 09/08/17 20:59 09/04/17 00:12 Theophylline (Wilfrido-Dur) 100 mg EVERY 12 HOURS ORAL 09/02/17 21:00 10/02/17 08:59 09/04/17 08:25 GI: Plan Problems: (1) Severe malnutrition (2) Odynophagia (3) DM (diabetes mellitus) (4) Dehydration (5) Gastritis (6) Esophagitis (7) Hypothyroidism Plan EGD scheduled tomorrow. - FLD now, NPO @ [place]. - hold all blood thinners tonight anemia work up OB stool r/o GI bleed monitor H&H, prn transfusions bowel regime ppi fu labs fu calorie count Discussed with Dr. Tom. Thank you for this patient referral, we will follow. SHARON TOM 09/05/17 0928: History of Present Illness General Reason for Hospitalization: Chest Pain Present Illness Home Meds Active Scripts Albuterol Sulfate (VENTOLIN HFA) 18 Gm Hfa.aer.ad, 1 PUFF INH EVERY 6 HOURS Y for 30 Days, #18 GM 0 Refills Prov:ZARRABI,MIRALI 05/16/17 Hydromorphone Hcl (DILAUDID) 1 Mg/1 Ml Liquid, 2 MG PO EVERY 4 HOURS for 30 Days , ML Prov:ZARRABI,MIRALI 05/16/17 Theophylline (THEODUR*) 100 Mg Tab.er.12h, 100 MG ORAL EVERY 12 HOURS for 30 Days, TAB Prov:ZARRABI,MIRALI 05/16/17 Ranitidine Hcl* (ZANTAC*) 150 Mg Tablet, 150 MG ORAL Q12HR, #60 TAB Prov:Kristine Black (Vanchtein) [employer] 02/10/16 Reported Medications Zolpidem Tartrate (Ambien) 5 Mg Tablet, 5 MG PO, TAB 09/02/17 Metoprolol Succinate* (METOPROLOL SUCCINATE*) 50 Mg Tab.er.24h, 50 MG ORAL DAILY , TAB 09/02/17 Aspirin* (ASPIRIN*) 325 Mg Tablet, 325 MG ORAL DAILY, TAB 09/02/17 Atorvastatin Calcium* (ATORVASTATIN CALCIUM*) 40 Mg Tablet, 40 MG ORAL BEDTIME, TAB 09/02/17 Sucralfate (SUCRALFATE) 1 Gm/10 Ml Oral.susp, 1 GM PO, ML 09/02/17 Ranitidine Hcl* (ZANTAC*) 150 Mg Tablet, 150 MG ORAL DAILY, #30 TAB 0 Refills 09/02/17 Levetiracetam (LEVETIRACETAM) 500 Mg/5 Ml Vial, 500 MG IV, VIAL 09/02/17 Docusate Sodium (DOCUSATE SODIUM) 100 Mg Tablet, 100 MG ORAL DAILY, #30 TAB 0 Refills 09/02/17 Omeprazole (OMEPRAZOLE) 10 Mg Capsule.dr, 10 MG ORAL DAILY, #30 CAP 0 Refills 09/02/17 Ondansetron Hcl* (ZOFRAN*) 8 Mg Tablet, 8 MG ORAL Q6H Y for Nausea & Vomiting, TAB 02/18/17 Zolpidem Tartrate* (AMBIEN*) 10 Mg Tablet, 10 MG ORAL HS Y for Insomnia, TAB 02/18/17 Temazepam* (TEMAZEPAM*) 30 Mg Capsule, 30 MG ORAL BEDTIME Y for Insomnia, CAP 02/18/17 Prednisone* (PREDNISONE*) 20 Mg Tablet, 20 MG ORAL DAILY Y for Shortness of Breath, TAB 02/18/17 Pantoprazole* (PANTOPRAZOLE*) 40 Mg Tablet.dr, 40 MG ORAL DAILY, TAB 02/18/17 Metoprolol Tartrate* (METOPROLOL TARTRATE*) 50 Mg Tablet, 50 MG ORAL DAILY, TAB Patient pill bottle states 1 tablet BID 02/18/17 Levetiracetam (KEPPRA) 500 Mg Tablet, 500 MG ORAL EVERY 12 HOURS 02/18/17 Docusate Sodium* (COLACE*) 100 Mg Capsule, 100 MG ORAL DAILY Y for Constipation , CAP 02/18/17 Atorvastatin Calcium* (ATORVASTATIN CALCIUM*) 40 Mg Tablet, 40 MG ORAL DAILY, TAB 02/18/17 Aspirin* (ASPIRIN EC*) 325 Mg Tablet.dr, 325 MG ORAL DAILY, TAB 04/18/15 Amlodipine Besylate* (AMLODIPINE BESYLATE*) 10 Mg Tablet, 10 MG ORAL DAILY, TAB 09/07/14 Clopidogrel Bisulfate* (PLAVIX*) 75 Mg Tablet, 75 MG ORAL DAILY, TAB 09/07/14 Allergies: Coded Allergies: EGG (Verified Allergy, Unknown, 09/22/15) MEPERIDINE (Verified Allergy, Unknown, 12/21/10) MORPHINE (Verified Allergy, Unknown, Shortness of Breath, 01/24/14) itching,shortness of breath,dyspnea NITROGLYCERIN (Verified Allergy, Unknown, hives, 02/18/17) GI: Plan Plan The patient was seen and examined at bedside and all new and available data was reviewed in the patients chart. I agree with the above findings, impression and plan. (Patient seen earlier today. Signature stamp does not reflect patient encounter time.). - MD [facility] Celestine Varela Sep 04, 2017 17:24 SHARON TOM Sep 05, 2017 09:28
--- NOTE | 2017-09-04 17:40 | Pulmonology Progress Note ---
Assessment/Plan Assessment/Plan ASSESSMENT COPD exacerbation emphysema acute bronchitis CAD with hx of CABG CKD HTN DM seizure disorder OM R leg ( s/p prior Rx) R ankle nonhealing wound moderate dysphagia likely protein calorie malnutrition PLAN OF CARE MS floor CXR c/w COPD/hyperinflation of lungs, no acute changes O2 HHN steroids and taper Theophylline empiric abx sputum cx, blood cx preliminary negative a/tussive prn pain management troponin negative continue ASA Plavix BP management with BB and CCB BS management with SS of insulin seizure precautions, continue Keppra swallow eval revealed moderate dysphagia strict aspiration/reflux precautions with 1 to 1 supervision diet as per ST recommendations a/emetic prn dietary eval wound care as per wound nurse recombinations DVT GI prophylaxis PT/OT case discussed and evaluated by supervising physician Subjective Allergies: Coded Allergies: EGG (Verified Allergy, Unknown, 09/22/15) MEPERIDINE (Verified Allergy, Unknown, 12/21/10) MORPHINE (Verified Allergy, Unknown, Shortness of Breath, 01/24/14) itching,shortness of breath,dyspnea NITROGLYCERIN (Verified Allergy, Unknown, hives, 02/18/17) Subjective reports not eating, + nausea, difficulties swallowing swallow eval just completed report dry intermittent cough, with intermittent SOB, no chest pain no hemoptysis Objective Last 24 Hour Vital Signs Date Time Temp Pulse Resp B/P (MAP) Pulse Ox O2 Delivery O2 Flow Rate FiO2 09/04/17 15:59 90 20 96 Room Air 09/04/17 15:51 89 20 94 Room Air 09/04/17 15:44 98.2 89 19 137/66 93 Room Air 09/04/17 12:00 98.6 89 20 145/77 97 Room Air 09/04/17 08:33 90 117/66 09/04/17 08:33 90 117/66 09/04/17 08:26 90 20 97 Room Air 09/04/17 08:17 90 20 93 Room Air 09/04/17 08:16 Room Air 09/04/17 08:15 93 Room Air 09/04/17 08:14 90 20 Room Air 09/04/17 08:00 97.2 103 17 117/66 93 Room Air 09/04/17 05:36 98.1 09/04/17 04:00 98.0 80 18 135/80 96 Room Air 09/04/17 00:00 98.1 79 20 141/79 95 Room Air 09/03/17 20:48 100 138/78 09/03/17 20:00 98.1 100 21 138/78 91 Room Air 09/03/17 19:27 Room Air 09/03/17 19:26 94 Room Air 09/03/17 19:25 89 18 Room Air Intake and Output 09/04/17 09/05/17 19:00 07:00 Intake Total 705 ml Balance 705 ml Intake Oral 650 ml IV Total 55 ml General Appearance: no acute distress, other - awake, alert, oriented x 3 AA male in NAD, cachetic HEENT: normocephalic, atraumatic, anicteric, mucous membranes moist, PERRL, no JVD Respiratory/Chest: no accessory muscle use, decreased breath sounds Cardiovascular: normal peripheral pulses, regular rhythm, no JVD Abdomen: normal bowel sounds, soft, non tender Genitourinary: normal external genitalia Extremities: no edema, pedal pulses normal Skin: other - R ankle nonhealing wound 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: abnormal gait, alert, oriented x 3, responsive Musculoskeletal: atrophy - BLE, muscle wasting Microbiology Date/Time Source Procedure Growth Status 09/01/17 22:00 Blood Blood Culture - Preliminary NO GROWTH AFTER 48 HOURS Resulted 09/01/17 21:45 Blood Blood Culture - Preliminary NO GROWTH AFTER 48 HOURS Resulted Laboratory Tests 09/04/17 05:45: White Blood Count 7.5, Red Blood Count 4.80, Hemoglobin 12.7L, Hematocrit 41.5L , Mean Corpuscular Volume 86, Mean Corpuscular Hemoglobin 26.5L, Mean Corpuscular Hemoglobin Concent 30.7L, Red Cell Distribution Width 17.3H, Platelet Count 316, Mean Platelet Volume 6.8, Neutrophils (%) (Auto) , Lymphocytes (%) (Auto) , Monocytes (%) (Auto) , Eosinophils (%) (Auto) , Basophils (%) (Auto) , Differential Total Cells Counted 100, Neutrophils % ( Manual) 86H, Lymphocytes % (Manual) 12L, Monocytes % (Manual) 2, Eosinophils % ( Manual) 0, Basophils % (Manual) 0, Band Neutrophils 0, Platelet Estimate Adequate, Platelet Morphology Normal, Hypochromasia 1+, Anisocytosis 1+, Sodium Level 131L, Potassium Level 3.7, Chloride Level 96L, Carbon Dioxide Level 24, Anion Gap 12, Blood Urea Nitrogen 42H, Creatinine 1.8H, Estimat Glomerular Filtration Rate 45.8, Glucose Level 181H, Calcium Level 8.3L Current Medications Medications (Trade) Dose Ordered Sig/Aminata Route PRN Reason Start Time Stop Time Status Last Admin Dose Admin Albuterol/ Ipratropium (DuoNeb 0.5-3(2.5)mg/3ml) 3 ml Q4H PRN HHN dyspnea 09/02/17 18:00 09/07/17 17:59 09/04/17 15:51 Amlodipine Besylate (Norvasc) 10 mg DAILY ORAL 09/03/17 09:00 10/02/17 08:59 Clopidogrel Bisulfate (Plavix) 75 mg DAILY ORAL 09/03/17 09:00 10/02/17 08:59 09/04/17 08:25 Dextrose (Dextrose 50%) STAT PRN IV Hypoglycemia 09/02/17 17:30 10/01/17 17:29 Heparin Sodium (Porcine) (Heparin 5000 units/ml) 5,000 units EVERY 12 HOURS SUBQ 09/02/17 21:00 10/02/17 08:59 09/04/17 08:33 Hydromorphone HCl (Dilaudid) 3 mg Q3H PRN IVP PAIN 4-10 09/02/17 17:30 09/09/17 17:29 09/04/17 14:49 Levetiracetam (Keppra) 500 mg EVERY 12 HOURS ORAL 09/02/17 21:00 10/02/17 08:59 09/04/17 08:25 Lorazepam (Ativan 2mg/ml 1ml) 0.5 mg Q4H PRN IV For Anxiety 09/02/17 18:15 09/08/17 22:14 Methylprednisolone Sodium Succinate (Solu-MEDROL) 60 mg EVERY 6 HOURS IV 09/02/17 18:00 10/02/17 00:00 09/04/17 11:37 Metoprolol Tartrate (Lopressor) 25 mg Q12HR ORAL 09/03/17 09:00 10/03/17 08:59 09/03/17 20:48 Ondansetron HCl (Zofran) 4 mg Q6H PRN IVP Nausea & Vomiting 09/02/17 18:00 10/01/17 17:59 Piperacillin Sod/ Tazobactam Sod 2.25 gm/Dextrose 55 ml @ 110 mls/hr EVERY 8 HOURS IV 09/02/17 22:00 09/07/17 21:59 09/04/17 13:13 Promethazine HCl/ Codeine (Phenergan with Codeine) 5 ml Q6H PRN ORAL cough 09/02/17 18:00 10/02/17 17:59 09/04/17 10:26 Temazepam (Restoril) 15 mg HSPRN PRN ORAL Insomnia 09/02/17 21:00 09/08/17 20:59 09/04/17 00:12 Theophylline (Wilfrido-Dur) 100 mg EVERY 12 HOURS ORAL 09/02/17 21:00 10/02/17 08:59 09/04/17 08:25 Wayne ([facility])Kristine NP Sep 04, 2017 17:40
[2017-09-04 20:00] VITALS: BP 136/72
[2017-09-05] VITALS (10 sets, daily range): BP systolic 124–148; BP diastolic 62–83
[2017-09-05] MEDS: Piperacillin/Tazobactam 2.25 GM in D5W 55 ML IV SCH ×3 (05:31→21:52)
--- NOTE | 2017-09-05 06:47 | Anethesia Preoperative Eval ---
Anesthesia Pre-op PMH/ROS General Date of Evaluation: Sep 05, 2017 Time of Evaluation: 06:40 Anesthesiologist: champ ASA Score: ASA 4 Mallampati Score Class I : Soft palate, uvula, fauces, pillars visible Class II: Soft palate, uvula, fauces visible Class III: Soft palate, base of uvula visible Class IV: Only hard plate visible Mallampati Classification: Class II Surgeon: cathleen Diagnosis: odynophagia Surgical Procedure: egd Allergies: Coded Allergies: EGG (Verified Allergy, Unknown, 09/22/15) MEPERIDINE (Verified Allergy, Unknown, 12/21/10) MORPHINE (Verified Allergy, Unknown, Shortness of Breath, 01/24/14) itching,shortness of breath,dyspnea NITROGLYCERIN (Verified Allergy, Unknown, hives, 02/18/17) Past Medical History Cardiovascular: Reports: HTN, CAD, IA, arrhythmia, other - cabg, cardiac stent , chf Pulmonary: Reports: COPD Gastrointestinal/Genitourinary: Reports: GERD, ESRD 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: Reports: depression/anxiety, other - seizure, Musculoskeletal/Integumentary: Reports: OA, DJD Anesthesia Pre-op Phys. Exam Physician Exam Last Vital Signs Date Time Temp Pulse Resp B/P (MAP) Pulse Ox O2 Delivery O2 Flow Rate FiO2 09/05/17 05:09 98.2 09/05/17 04:00 62 21 148/82 98 Room Air 09/03/17 16:04 2.0 28 Constitutional: NAD Neurologic: CN 2-12 intact Cardiovascular: RRR Respiratory: CTA Gastrointestinal: S/NT/ND Airway Exam Mallampati Score: Class II MO: full Neck: supple TMD: 2fb ROM: full Teeth: missing, broken Anesthesia Pre-op A/P Labs Labs Test 09/02/17 15:26 09/04/17 05:45 09/05/17 05:00 White Blood Count 8.1 K/UL (4.8-10.8) 7.5 K/UL (4.8-10.8) 7.9 K/UL (4.8-10.8) Red Blood Count 5.27 M/UL (4.70-6.10) 4.80 M/UL (4.70-6.10) 4.65 M/UL (4.70-6.10) Hemoglobin 13.9 G/DL (14.2-18.0) 12.7 G/DL (14.2-18.0) 12.5 G/DL (14.2-18.0) Hematocrit 45.8 % (42.0-52.0) 41.5 % (42.0-52.0) 40.1 % (42.0-52.0) Mean Corpuscular Volume 87 FL (80-99) 86 FL (80-99) 86 FL (80-99) Mean Corpuscular Hemoglobin 26.4 PG (27.0-31.0) 26.5 PG (27.0-31.0) 26.9 PG (27.0-31.0) Mean Corpuscular Hemoglobin Concent 30.4 G/DL (32.0-36.0) 30.7 G/DL (32.0-36.0) 31.3 G/DL (32.0-36.0) Red Cell Distribution Width 17.9 % (11.6-14.8) 17.3 % (11.6-14.8) 17.8 % (11.6-14.8) Platelet Count 264 K/UL (150-450) 316 K/UL (150-450) 313 K/UL (150-450) Mean Platelet Volume 6.5 FL (6.5-10.1) 6.8 FL (6.5-10.1) 6.5 FL (6.5-10.1) Neutrophils (%) (Auto) 83.8 % (45.0-75.0) % (45.0-75.0) 80.3 % (45.0-75.0) Lymphocytes (%) (Auto) 10.6 % (20.0-45.0) % (20.0-45.0) 10.9 % (20.0-45.0) Monocytes (%) (Auto) 3.9 % (1.0-10.0) % (1.0-10.0) 6.7 % (1.0-10.0) Eosinophils (%) (Auto) 0.0 % (0.0-3.0) % (0.0-3.0) 0.1 % (0.0-3.0) Basophils (%) (Auto) 1.7 % (0.0-2.0) % (0.0-2.0) 1.9 % (0.0-2.0) Sodium Level 135 MMOL/L (136-145) 131 MMOL/L (136-145) Potassium Level 4.6 MMOL/L (3.5-5.1) 3.7 MMOL/L (3.5-5.1) Chloride Level 100 MMOL/L (98-107) 96 MMOL/L (98-107) Carbon Dioxide Level 24 MMOL/L (21-32) 24 MMOL/L (21-32) Anion Gap 11 (5-15) 12 (5-15) Blood Urea Nitrogen 55 mg/dL (7-18) 42 mg/dL (7-18) Creatinine 2.5 MG/DL (0.55-1.30) 1.8 MG/DL (0.55-1.30) Estimat Glomerular Filtration Rate 31.4 mL/min (>60) 45.8 mL/min (>60) Glucose Level 155 MG/DL (74-106) 181 MG/DL (74-106) Calcium Level 8.5 MG/DL (8.5-10.1) 8.3 MG/DL (8.5-10.1) Total Bilirubin 0.3 MG/DL (0.2-1.0) Aspartate Amino Transf (AST/SGOT) 10 U/L (15-37) Alanine Aminotransferase (ALT/SGPT) 9 U/L (12-78) Alkaline Phosphatase 58 U/L (46-116) Total Protein 7.1 G/DL (6.4-8.2) Albumin 2.8 G/DL (3.4-5.0) Globulin 4.3 g/dL Albumin/Globulin Ratio 0.7 (1.0-2.7) Differential Total Cells Counted 100 Neutrophils % (Manual) 86 % (45-75) Lymphocytes % (Manual) 12 % (20-45) Monocytes % (Manual) 2 % (1-10) Eosinophils % (Manual) 0 % (0-3) Basophils % (Manual) 0 % (0-2) Band Neutrophils 0 % (0-8) Platelet Estimate Adequate Platelet Morphology Normal Hypochromasia 1+ Anisocytosis 1+ Prothrombin Time 11.4 SEC (9.30-11.50) Prothromb Time International Ratio 1.1 (0.9-1.1) Activated Partial Thromboplast Time 27 SEC (23-33) Risk Assessment & Plan Assessment: [email or web address] Plan: mac Status Change Before Surgery: No Pre-Antibiotics Drug: VERENA Zhang Sep 05, 2017 06:47
[2017-09-05 07:15] LABS: BASOPHILS % (AUTO) 1.9 % (0.0-2.0); EOSINOPHILS % (AUTO) 0.1 % (0.0-3.0); LYMPHOCYTES % (AUTO) 10.9 % (20.0-45.0); MEAN CORPUSCULAR HEMOGLOBIN 26.9 PG (27.0-31.0); MEAN CORPUSCULAR HGB CONC 31.3 G/DL (32.0-36.0); MEAN CORPUSCULAR VOLUME 86 FL (80-99); MEAN PLATELET VOLUME 6.5 FL (6.5-10.1); MONOCYTES % (AUTO) 6.7 % (1.0-10.0); NEUTROPHILS % (AUTO) 80.3 % (45.0-75.0); PLATELET COUNT 313 K/UL (150-450); RED BLOOD COUNT 4.65 M/UL (4.70-6.10); RED CELL DISTRIBUTION WIDTH 17.8 % (11.6-14.8); WHITE BLOOD COUNT 7.9 K/UL (4.8-10.8)
[2017-09-05 07:23] LABS: INR 1.1 (0.9-1.1); PROTHROMBIN TIME 11.4 SEC (9.30-11.50)
[2017-09-05] MEDS: Metoprolol 25mg tab ORAL SCH ×2 (08:18→21:37)
[2017-09-05] MEDS: Theophylline ER 100mg ORAL SCH ×2 (08:18→21:37)
[2017-09-05] MEDS: Solu-MEDROL 125mg Inj IV SCH ×2 (08:18→21:37)
[2017-09-05] MEDS: Heparin 5000 units/ml inj SUBQ SCH ×2 (08:22→21:38)
[2017-09-05] MEDS ORDERED: Lidocaine 1% MPF 10mg/ml 5ml ONE (10:30)
[2017-09-05] MEDS ORDERED: Propofol 200mg/20ml IV ONE (10:30)
--- NOTE | 2017-09-05 10:44 | Pre-Procedure Note/Attestation ---
Pre-Procedure Note/Attestation Complete Prior to Procedure Planned Procedure: not applicable Procedure Narrative: egd Indications for Procedure Pre-Operative Diagnosis: dysphagia Attestation I attest that I discussed the nature of the procedure; its benefits; risks and complications; and alternatives (and the risks and benefits of such alternatives ), prior to the procedure, with the patient (or the patient's legal cash posting representative). I attest that, if there was a reasonable possibility of needing a blood transfusion, the patient (or the patient's legal cash posting representative) was given the [facility] standardized written summary, pursuant to the [place] Blood Safety Act ([place] [facility] and Safety Code # 1645, as amended). I attest that I re-evaluated the patient just prior to the surgery and that there has been no change in the patient's H&P, except as documented below: SHARON TOM Sep 05, 2017 10:44
[2017-09-05] MEDS ORDERED: NS 275ml IVLG ONE (10:50)
--- NOTE | 2017-09-05 11:13 | Endoscopy Procedure Note ---
Endoscopy Procedure Note Indication for Procedure: dysphagia Procedures Performed: EGD Operative Findings/Diagnosis: severe bret esophagitis Specimen: yes Pt Tolerated Procedure Well: Yes Estimated Blood Loss: none Anesthesiologist: magdaleno Anesthesia: MAC Implant(s) used?: No 50 yrs or older w/o bx or poly: Not Applicable 10yrs. F/U not recommended: Not Applicable SHARON TOM Sep 05, 2017 11:13
[2017-09-05] MEDS ORDERED: Atropine Inj 1mg/10ml Syr IV PRN (11:15)
[2017-09-05] MEDS ORDERED: DiphenhydrAMINE 50mg/ml Inj IVP PRN (11:15)
[2017-09-05] MEDS ORDERED: Midazolam 2mg/2ml Inj IVP PRN (11:15)
--- NOTE | 2017-09-05 12:54 | Immediate Post-Op Evaluation ---
Immediate Post-Op Evalulation Immediate Post-Op Evalulation Procedure: egd Date of Evaluation: Sep 05, 2017 Time of Evaluation: 11:32 IV Fluids: 0.9ns 100ml Blood Products: none Estimated Blood Loss: negligible Blood Pressure Systolic: 135 Blood Pressure Diastolic: 71 Pulse Rate: 72 Respiratory Rate: 18 O2 Sat by Pulse Oximetry: 100 Temperature (Fahrenheit): 97.2 Pain Score (1-10): 0 Nausea: No Vomiting: No Complications none Patient Status: awake, reacts, patent Hydration Status: adequate Drug: VERENA Zhang Sep 05, 2017 12:54
--- NOTE | 2017-09-05 12:55 | 48 Hour Post Anesthesia Eval ---
Post Anesthesia Evaluation Procedure: egd Date of Evaluation: Sep 05, 2017 Time of Evaluation: 12:54 Blood Pressure Systolic: 144 0: 74 Pulse Rate: 75 Respiratory Rate: 18 Temperature (Fahrenheit): 98.2 O2 Sat by Pulse Oximetry: 100 Airway: patent Nausea: No Vomiting: No Pain Intensity: 0 Hydration Status: adequate Cardiopulmonary Status: stable Mental Status/LOC: patient returned to baseline Post-Anesthesia Complications: none Follow-up care needed: N/A VERENA HENDRICKS Sep 05, 2017 12:55
--- NOTE | 2017-09-05 14:24 | Pulmonology Progress Note ---
Assessment/Plan Assessment/Plan ASSESSMENT COPD exacerbation emphysema acute bronchitis CAD with hx of CABG s/p EGD severe Vikki esophagitis CKD HTN DM seizure disorder OM R leg ( s/p prior Rx) R ankle nonhealing wound moderate dysphagia likely protein calorie malnutrition PLAN OF CARE MS floor CXR c/w COPD/hyperinflation of lungs, no acute changes O2 HHN steroids and taper Theophylline empiric abx sputum cx, blood cx preliminary negative a/tussive prn pain management troponin negative continue ASA Plavix BP management with BB and CCB BS management with SS of insulin seizure precautions, continue Keppra swallow eval revealed moderate dysphagia strict aspiration/reflux precautions with 1 to 1 supervision diet as per ST recommendations s/p EGD 09/05 with findings of severe Vikki esophagitis started on IV Fluconazole a/emetic prn declined G tube dietary eval wound care as per wound nurse recombinations DVT GI prophylaxis PT/OT dc plan for am case discussed and evaluated by supervising physician Subjective Allergies: Coded Allergies: EGG (Verified Allergy, Unknown, 09/22/15) MEPERIDINE (Verified Allergy, Unknown, 12/21/10) MORPHINE (Verified Allergy, Unknown, Shortness of Breath, 01/24/14) itching,shortness of breath,dyspnea NITROGLYCERIN (Verified Allergy, Unknown, hives, 02/18/17) Subjective reports not eating, + nausea, difficulties swallowing swallow eval just completed reported dry intermittent cough, with intermittent SOB, no chest pain no hemoptysis given option re G tube to supplement oral diet still some chest tightness but no wheezing Objective Last 24 Hour Vital Signs Date Time Temp Pulse Resp B/P (MAP) Pulse Ox O2 Delivery O2 Flow Rate FiO2 09/05/17 12:55 75 18 100 09/05/17 12:54 72 18 100 09/05/17 11:50 98.2 75 17 144/74 98 Room Air 09/05/17 11:40 71 18 140/76 96 Room Air 09/05/17 11:35 76 15 141/74 96 Room Air 09/05/17 11:30 72 16 135/76 97 Room Air 09/05/17 11:23 97.2 73 18 148/82 100 Room Air 09/05/17 08:19 70 135/66 09/05/17 08:18 70 135/66 09/05/17 07:35 Room Air 09/05/17 07:35 96 Room Air 09/05/17 07:35 75 16 09/05/17 05:09 98.2 09/05/17 04:00 98.2 62 21 148/82 98 Room Air 09/05/17 00:00 98.4 74 20 132/76 95 Room Air 09/04/17 21:12 Room Air 09/04/17 21:11 95 Room Air 09/04/17 20:50 109 20 Room Air 09/04/17 20:25 91 136/72 09/04/17 20:00 97.6 99 21 136/72 93 Room Air 09/04/17 15:59 90 20 96 Room Air 09/04/17 15:51 89 20 94 Room Air 09/04/17 15:44 98.2 89 19 137/66 93 Room Air Objective General Appearance: no acute distress, awake, alert, oriented x 3 AA male in NAD, cachetic HEENT: normocephalic, atraumatic, anicteric, mucous membranes moist, PERRL, no JVD Respiratory/Chest: no accessory muscle use, decreased breath sounds Cardiovascular: normal peripheral pulses, regular rhythm, no JVD Abdomen: normal bowel sounds, soft, non tender Genitourinary: normal external genitalia Extremities: no edema, pedal pulses normal Skin: other - R ankle nonhealing wound 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: abnormal gait, alert, oriented x 3, responsive Musculoskeletal: atrophy - BLE, muscle wasting Laboratory Tests 09/05/17 05:00: White Blood Count 7.9, Red Blood Count 4.65L, Hemoglobin 12.5L, Hematocrit 40.1L , Mean Corpuscular Volume 86, Mean Corpuscular Hemoglobin 26.9L, Mean Corpuscular Hemoglobin Concent 31.3L, Red Cell Distribution Width 17.8H, Platelet Count 313, Mean Platelet Volume 6.5, Neutrophils (%) (Auto) 80.3H, Lymphocytes (%) (Auto) 10.9L, Monocytes (%) (Auto) 6.7, Eosinophils (%) (Auto) 0.1, Basophils (%) (Auto) 1.9, Prothrombin Time 11.4, Prothromb Time International Ratio 1.1, Activated Partial Thromboplast Time 27 09/05/17 13:56: Sodium Level [Pending], Potassium Level [Pending], Chloride Level [Pending], Carbon Dioxide Level [Pending], Blood Urea Nitrogen [Pending], Creatinine [ Pending], Estimat Glomerular Filtration Rate [Pending], Glucose Level [Pending] , Calcium Level [Pending], Hepatitis C Antibody [Pending], Hepatitis C RNA (PCR ) IUs/ml [Pending], Hepatitis C RNA (PCR) log IUs/ml [Pending], HIV (1&2) Antibody Rapid [Pending] Current Medications Medications (Trade) Dose Ordered Sig/Aminata Route PRN Reason Start Time Stop Time Status Last Admin Dose Admin Al Hydroxide/Mg Hydroxide (Mylanta) 15 ml Q1H PRN ORAL gi upset 09/05/17 11:15 09/05/17 15:00 Albuterol/ Ipratropium (DuoNeb 0.5-3(2.5)mg/3ml) 3 ml Q4H PRN HHN dyspnea 09/02/17 18:00 09/07/17 17:59 09/04/17 15:51 Amlodipine Besylate (Norvasc) 10 mg DAILY ORAL 09/03/17 09:00 10/02/17 08:59 09/05/17 08:19 Atropine Sulfate (Atropine) 0.5 mg Q5M PRN IV HR less than 45 BPM 09/05/17 11:15 09/05/17 15:00 Clopidogrel Bisulfate (Plavix) 75 mg DAILY ORAL 09/03/17 09:00 10/02/17 08:59 09/05/17 08:18 Dextrose (Dextrose 50%) STAT PRN IV Hypoglycemia 09/02/17 17:30 10/01/17 17:29 Diphenhydramine HCl (Benadryl) 25 mg Q15M PRN IVP Itching 09/05/17 11:15 09/05/17 15:00 Fluconazole/ Sodium Chloride 100 ml @ 100 mls/hr Q24H IV 09/05/17 13:00 09/12/17 12:59 09/05/17 12:37 Heparin Sodium (Porcine) (Heparin 5000 units/ml) 5,000 units EVERY 12 HOURS SUBQ 09/02/17 21:00 10/02/17 08:59 09/04/17 08:33 Hydralazine HCl (Apresoline) 5 mg Q30M PRN IV SBP>160 /DBP>90 09/05/17 11:15 09/05/17 15:00 Hydromorphone HCl (Dilaudid) 3 mg Q3H PRN IVP PAIN 4-10 09/02/17 17:30 09/09/17 17:29 09/05/17 12:20 Levetiracetam (Keppra) 500 mg EVERY 12 HOURS ORAL 09/02/17 21:00 10/02/17 08:59 09/05/17 08:18 Lorazepam (Ativan 2mg/ml 1ml) 0.5 mg Q4H PRN IV For Anxiety 09/02/17 18:15 09/08/17 22:14 Methylprednisolone Sodium Succinate (Solu-MEDROL) 60 mg Q12HR IV 09/04/17 21:00 10/02/17 00:00 09/05/17 08:18 Metoprolol Tartrate (Lopressor) 25 mg Q12HR ORAL 09/03/17 09:00 10/03/17 08:59 09/05/17 08:18 Midazolam HCl (Versed 2mg/2ml vial) 1 mg Q15M PRN IVP For Anxiety 09/05/17 11:15 09/05/17 15:00 Ondansetron HCl (Zofran) 4 mg Q1H PRN IVP Nausea & Vomiting 09/05/17 11:15 09/05/17 15:00 Ondansetron HCl (Zofran) 4 mg Q6H PRN IVP Nausea & Vomiting 09/02/17 18:00 10/01/17 17:59 Piperacillin Sod/ Tazobactam Sod 2.25 gm/Dextrose 55 ml @ 110 mls/hr EVERY 8 HOURS IV 09/02/17 22:00 09/07/17 21:59 09/05/17 05:31 Promethazine HCl/ Codeine (Phenergan with Codeine) 5 ml Q6H PRN ORAL cough 09/02/17 18:00 10/02/17 17:59 09/04/17 20:24 Ranitidine HCl (Zantac) 150 mg TWICE A DAY ORAL 09/05/17 09:00 10/05/17 08:59 Temazepam (Restoril) 15 mg HSPRN PRN ORAL Insomnia 09/02/17 21:00 09/08/17 20:59 09/04/17 23:56 Theophylline (Wilfrido-Dur) 100 mg EVERY 12 HOURS ORAL 09/02/17 21:00 10/02/17 08:59 09/05/17 08:18 [facility] Sep 05, 2017 14:24
[2017-09-05 14:34] LABS: ANION GAP 10 (5-15); CALCIUM 8.6 MG/DL (8.5-10.1); CARBON DIOXIDE 28 MMOL/L (21-32); CHLORIDE 99 MMOL/L (98-107); CREATININE 1.7 MG/DL (0.55-1.30); POTASSIUM 4.9 MMOL/L (3.5-5.1); SODIUM 137 MMOL/L (136-145)
[2017-09-05] MEDS ORDERED: Tubing IV Secondary IV ONE (16:12)
[2017-09-05] MEDS ORDERED: NS 275ml ONE (16:12)
--- NOTE | 2017-09-05 17:15 | Procedure Note ---
DATE OF PROCEDURE: 09/05/2017 SURGEON: Micha Victoria M.D. REFERRING PHYSICIAN: Jessie Magana M.D. PROCEDURE: Upper endoscopy with biopsy. ANESTHESIA: Per Dr. Smith. INSTRUMENT: Olympus adult flexible upper endoscope and colonoscope. INDICATION: Severe dysphagia. The procedure, risks, benefits, and possible consequences, including hemorrhage, aspiration, perforation and infection, and alternative treatments, were explained to the patient/legal guardian by Dr. Micha Victoria and the patient/legal guardian understood and accepted these risks. PROCEDURE IN DETAIL: After informed consent was obtained and the patient was adequately sedated, Olympus upper endoscope was advanced through the mouth into second portion of the duodenum and retroflexion was performed in the stomach. 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 In the stomach, there was diffuse gastritis. Random biopsy from antrum was obtained to rule out H. pylori infection. At this time, the upper endoscope was retrieved and the procedure was terminated. SUMMARY OF FINDINGS: One of the worse Vikki esophagitis I ever seen starting from the mouth, throat, all the way down to the esophagus covered by fungus. PLAN: Start Diflucan 200 mg IV daily. Start clear liquid diet and advance as tolerated. Follow biopsy results. Check HIV test. Given prior history of hepatitis C, we will check hepatitis C genotype and quant. I want to thank Dr. Magana for this kind referral. Micha Victoria M.D. DR: MONICO JOB#: [id number] CC: Jessie Magana M.D.; Fax#: [phone]
[2017-09-05] MEDS: Albuterol/Ipratropium 3ml neb HHN PRN (19:19)
[2017-09-06 04:24] VITALS: BP 153/65
[2017-09-06] MEDS: Piperacillin/Tazobactam 2.25 GM in D5W 55 ML IV SCH ×3 (05:38→21:42)
[2017-09-06 08:00] VITALS: BP 117/58
[2017-09-06] MEDS: Metoprolol 25mg tab ORAL SCH ×2 (08:20→20:26)
[2017-09-06] MEDS: Solu-MEDROL 125mg Inj IV SCH (08:20)
[2017-09-06] MEDS: Theophylline ER 100mg ORAL SCH ×2 (08:20→20:26)
[2017-09-06] MEDS: Heparin 5000 units/ml inj SUBQ SCH ×2 (08:32→20:26)
[2017-09-06 09:00] LABS: BASOPHILS % (AUTO) 3.1 % (0.0-2.0); EOSINOPHILS % (AUTO) 0.1 % (0.0-3.0); LYMPHOCYTES % (AUTO) 9.6 % (20.0-45.0); MEAN CORPUSCULAR HEMOGLOBIN 26.7 PG (27.0-31.0); MEAN CORPUSCULAR HGB CONC 30.6 G/DL (32.0-36.0); MEAN CORPUSCULAR VOLUME 87 FL (80-99); MEAN PLATELET VOLUME 6.6 FL (6.5-10.1); MONOCYTES % (AUTO) 5.6 % (1.0-10.0); NEUTROPHILS % (AUTO) 81.7 % (45.0-75.0); PLATELET COUNT 406 K/UL (150-450); RED BLOOD COUNT 4.82 M/UL (4.70-6.10); WHITE BLOOD COUNT 6.5 K/UL (4.8-10.8)
--- NOTE | 2017-09-06 09:10 | General Progress Note ---
Assessment/Plan Problem List: (1) Vikki esophagitis ICD Codes: B37.81 - Candidal esophagitis SNOMED: 47875486 Assessment/Plan fluconazole IV fu labs advance diet fu HIV Subjective ROS Limited/Unobtainable: Yes Allergies: Coded Allergies: EGG (Verified Allergy, Unknown, 09/22/15) MEPERIDINE (Verified Allergy, Unknown, 12/21/10) MORPHINE (Verified Allergy, Unknown, Shortness of Breath, 01/24/14) itching,shortness of breath,dyspnea NITROGLYCERIN (Verified Allergy, Unknown, hives, 02/18/17) Subjective feeling better Objective Last 24 Hour Vital Signs Date Time Temp Pulse Resp B/P (MAP) Pulse Ox O2 Delivery O2 Flow Rate FiO2 09/06/17 05:01 98.1 09/06/17 04:24 98.1 65 20 153/65 96 Room Air 09/05/17 23:21 98.1 77 20 131/72 97 Room Air 09/05/17 21:37 88 132/83 09/05/17 19:27 88 18 96 Room Air 09/05/17 19:21 78 16 9 Room Air 09/05/17 19:20 78 16 09/05/17 19:20 97 Room Air 09/05/17 19:20 Room Air 09/05/17 19:15 98.1 88 20 132/83 96 Room Air 09/05/17 16:00 98.1 76 20 124/62 94 Room Air 09/05/17 12:55 75 18 100 09/05/17 12:54 72 18 100 09/05/17 11:50 98.2 75 17 144/74 98 Room Air 09/05/17 11:40 71 18 140/76 96 Room Air 09/05/17 11:35 76 15 141/74 96 Room Air 09/05/17 11:30 72 16 135/76 97 Room Air 09/05/17 11:23 97.2 73 18 148/82 100 Room Air Laboratory Tests 09/05/17 13:56: Sodium Level 137, Potassium Level 4.9, Chloride Level 99, Carbon Dioxide Level 28, Anion Gap 10, Blood Urea Nitrogen 39H, Creatinine 1.7H, Estimat Glomerular Filtration Rate 49.0, Glucose Level 150H, Calcium Level 8.6, Hepatitis C Antibody [Pending], Hepatitis C RNA (PCR) IUs/ml [Pending], Hepatitis C RNA (PCR ) log IUs/ml [Pending], HIV (1&2) Antibody Rapid Negative 09/06/17 07:40: Sodium Level [Pending], Potassium Level [Pending], Chloride Level [Pending], Carbon Dioxide Level [Pending], Blood Urea Nitrogen [Pending], Creatinine [ Pending], Estimat Glomerular Filtration Rate [Pending], Glucose Level [Pending] , Calcium Level [Pending], White Blood Count 6.5, Red Blood Count 4.82, Hemoglobin 12.9L, Hematocrit 42.1, Mean Corpuscular Volume 87, Mean Corpuscular Hemoglobin 26.7L, Mean Corpuscular Hemoglobin Concent 30.6L, Red Cell Distribution Width 18.0H, Platelet Count 406, Mean Platelet Volume 6.6, Neutrophils (%) (Auto) 81.7H, Lymphocytes (%) (Auto) 9.6L, Monocytes (%) (Auto) 5.6, Eosinophils (%) (Auto) 0.1, Basophils (%) (Auto) 3.1H, Iron Level [Pending] , Unsaturated Iron Binding [Pending], Total Bilirubin [Pending], Aspartate Amino Transf (AST/SGOT) [Pending], Alanine Aminotransferase (ALT/SGPT) [Pending] , Alkaline Phosphatase [Pending], Total Protein [Pending], Albumin [Pending], Globulin [Pending], Carcinoembryonic Antigen [Pending], Hepatitis C Genotype [ Pending] Height (Feet): 6 Height (Inches): 6.00 Weight (Pounds): 160 General Appearance: alert EENT: normal ENT inspection Neck: supple Cardiovascular: normal rate Respiratory/Chest: lungs clear Abdomen: normal bowel sounds, non tender, soft Extremities: non-tender SHARON TOM Sep 06, 2017 09:10
[2017-09-06 09:21] LABS: ALANINE AMINOTRANSFERASE 13 U/L (12-78); ALBUMIN/GLOBULIN RATIO 0.8 (1.0-2.7); ANION GAP 9 (5-15); ASPARTATE AMINO TRANSFERASE 14 U/L (15-37); CALCIUM 8.3 MG/DL (8.5-10.1); CARBON DIOXIDE 26 MMOL/L (21-32); CHLORIDE 96 MMOL/L (98-107); CREATININE 1.6 MG/DL (0.55-1.30); GLOMERULAR FILTRATION RATE 52.5 mL/min (>60); POTASSIUM 4.5 MMOL/L (3.5-5.1); SODIUM 131 MMOL/L (136-145); TOTAL PROTEIN 6.2 G/DL (6.4-8.2)
[2017-09-06 10:42] LABS: IRON 133 ug/dL (50-175); TOTAL IRON BINDING CAPACITY 227 ug/dL (250-450)
[2017-09-06 12:00] VITALS: BP 117/61
--- NOTE | 2017-09-06 12:45 | Pulmonology Progress Note ---
Assessment/Plan Assessment/Plan ASSESSMENT COPD exacerbation emphysema acute bronchitis severe Vikki esophagitis CAD with hx of CABG CKD HTN DM seizure disorder OM R leg ( s/p prior Rx) R ankle nonhealing wound moderate dysphagia likely protein calorie malnutrition PLAN OF CARE MS floor CXR c/w COPD/hyperinflation of lungs, no acute changes O2 HHN taper steroids Theophylline empiric abx sputum cx, blood cx preliminary negative a/tussive prn pain management troponin negative continue ASA Plavix BP management with BB and CCB BS management with SS of insulin seizure precautions, continue Keppra s/p EGD 09/05 with findings of severe Vikki esophagitis started on IV Fluconazole swallow eval revealed moderate dysphagia strict aspiration/reflux precautions with 1 to 1 supervision diet as per ST recommendations a/emetic prn diet advanced as per GI, monitor tolerance not eating discussed with GI re option of G tube patient is now thinking of his option dietary eval wound care as per wound nurse recombinations DVT GI prophylaxis PT/OT dc plan case discussed and evaluated by supervising physician Subjective Allergies: Coded Allergies: EGG (Verified Allergy, Unknown, 09/22/15) MEPERIDINE (Verified Allergy, Unknown, 12/21/10) MORPHINE (Verified Allergy, Unknown, Shortness of Breath, 01/24/14) itching,shortness of breath,dyspnea NITROGLYCERIN (Verified Allergy, Unknown, hives, 02/18/17) Subjective reports not eating, + nausea, difficulties swallowing swallow eval completed reported dry intermittent cough, with intermittent SOB, no chest pain no hemoptysis again explained the option re G tube to supplement oral diet ( at night) still some chest tightness but no wheezing Objective Last 24 Hour Vital Signs Date Time Temp Pulse Resp B/P (MAP) Pulse Ox O2 Delivery O2 Flow Rate FiO2 09/06/17 10:22 98 Room Air 21 09/06/17 08:42 72 16 Room Air 21 09/06/17 08:00 97.5 66 18 117/58 96 Room Air 09/06/17 05:01 98.1 09/06/17 04:24 98.1 65 20 153/65 96 Room Air 09/05/17 23:21 98.1 77 20 131/72 97 Room Air 09/05/17 21:37 88 132/83 09/05/17 19:27 88 18 96 Room Air 09/05/17 19:21 78 16 9 Room Air 09/05/17 19:20 78 16 09/05/17 19:20 97 Room Air 09/05/17 19:20 Room Air 09/05/17 19:15 98.1 88 20 132/83 96 Room Air 09/05/17 16:00 98.1 76 20 124/62 94 Room Air 09/05/17 12:55 75 18 100 09/05/17 12:54 72 18 100 Objective General Appearance: no acute distress, awake, alert, oriented x 3 AA male in NAD, cachetic HEENT: normocephalic, atraumatic, anicteric, mucous membranes moist, PERRL, no JVD Respiratory/Chest: no accessory muscle use, decreased breath sounds Cardiovascular: normal peripheral pulses, regular rhythm, no JVD Abdomen: normal bowel sounds, soft, non tender Genitourinary: normal external genitalia Extremities: no edema, pedal pulses normal Skin: other - R ankle nonhealing wound 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: abnormal gait, alert, oriented x 3, responsive Musculoskeletal: atrophy - BLE, muscle wasting Laboratory Tests 09/05/17 13:56: Sodium Level 137, Potassium Level 4.9, Chloride Level 99, Carbon Dioxide Level 28, Anion Gap 10, Blood Urea Nitrogen 39H, Creatinine 1.7H, Estimat Glomerular Filtration Rate 49.0, Glucose Level 150H, Calcium Level 8.6, Hepatitis C Antibody [Pending], Hepatitis C RNA (PCR) IUs/ml [Pending], Hepatitis C RNA (PCR ) log IUs/ml [Pending], HIV (1&2) Antibody Rapid Negative 09/06/17 07:40: Sodium Level 131L, Potassium Level 4.5, Chloride Level 96L, Carbon Dioxide Level 26, Anion Gap 9, Blood Urea Nitrogen 35H, Creatinine 1.6H, Estimat Glomerular Filtration Rate 52.5, Glucose Level 133H, Calcium Level 8.3L, White Blood Count 6.5, Red Blood Count 4.82, Hemoglobin 12.9L, Hematocrit 42.1, Mean Corpuscular Volume 87, Mean Corpuscular Hemoglobin 26.7L, Mean Corpuscular Hemoglobin Concent 30.6L, Red Cell Distribution Width 18.0H, Platelet Count 406 , Mean Platelet Volume 6.6, Neutrophils (%) (Auto) 81.7H, Lymphocytes (%) (Auto ) 9.6L, Monocytes (%) (Auto) 5.6, Eosinophils (%) (Auto) 0.1, Basophils (%) ( Auto) 3.1H, Iron Level 133, Total Iron Binding Capacity 227L, Percent Iron Saturation 59H, Unsaturated Iron Binding 94L, Total Bilirubin 0.3, Aspartate Amino Transf (AST/SGOT) 14L, Alanine Aminotransferase (ALT/SGPT) 13, Alkaline Phosphatase 59, Total Protein 6.2L, Albumin 2.7L, Globulin 3.5, Albumin/ Globulin Ratio 0.8L, Carcinoembryonic Antigen [Pending], Hepatitis C Genotype [ Pending] Current Medications Medications (Trade) Dose Ordered Sig/Aminata Route PRN Reason Start Time Stop Time Status Last Admin Dose Admin Albuterol/ Ipratropium (DuoNeb 0.5-3(2.5)mg/3ml) 3 ml Q4H PRN HHN dyspnea 09/02/17 18:00 09/07/17 17:59 09/05/17 19:19 Amlodipine Besylate (Norvasc) 10 mg DAILY ORAL 09/03/17 09:00 10/02/17 08:59 09/05/17 08:19 Clopidogrel Bisulfate (Plavix) 75 mg DAILY ORAL 09/03/17 09:00 10/02/17 08:59 09/06/17 08:20 Dextrose (Dextrose 50%) STAT PRN IV Hypoglycemia 09/02/17 17:30 10/01/17 17:29 Fluconazole/ Sodium Chloride 100 ml @ 100 mls/hr Q24H IV 09/05/17 13:00 09/12/17 12:59 09/06/17 12:12 Heparin Sodium (Porcine) (Heparin 5000 units/ml) 5,000 units EVERY 12 HOURS SUBQ 09/02/17 21:00 10/02/17 08:59 09/06/17 08:32 Hydromorphone HCl (Dilaudid) 3 mg Q3H PRN IVP PAIN 4-10 09/02/17 17:30 09/09/17 17:29 09/06/17 10:38 Levetiracetam (Keppra) 500 mg EVERY 12 HOURS ORAL 09/02/17 21:00 10/02/17 08:59 09/06/17 08:20 Lorazepam (Ativan 2mg/ml 1ml) 0.5 mg Q4H PRN IV For Anxiety 09/02/17 18:15 09/08/17 22:14 Methylprednisolone Sodium Succinate (Solu-MEDROL) 60 mg Q12HR IV 09/04/17 21:00 10/02/17 00:00 09/06/17 08:20 Metoprolol Tartrate (Lopressor) 25 mg Q12HR ORAL 09/03/17 09:00 10/03/17 08:59 09/05/17 21:37 Ondansetron HCl (Zofran) 4 mg Q6H PRN IVP Nausea & Vomiting 09/02/17 18:00 10/01/17 17:59 Piperacillin Sod/ Tazobactam Sod 2.25 gm/Dextrose 55 ml @ 110 mls/hr EVERY 8 HOURS IV 09/02/17 22:00 09/07/17 21:59 09/06/17 05:38 Promethazine HCl/ Codeine (Phenergan with Codeine) 5 ml Q6H PRN ORAL cough 09/02/17 18:00 10/02/17 17:59 09/04/17 20:24 Ranitidine HCl (Zantac) 150 mg TWICE A DAY ORAL 09/05/17 09:00 10/05/17 08:59 09/06/17 08:23 Temazepam (Restoril) 15 mg HSPRN PRN ORAL Insomnia 09/02/17 21:00 09/08/17 20:59 09/05/17 23:43 Theophylline (Wilfrido-Dur) 100 mg EVERY 12 HOURS ORAL 09/02/17 21:00 10/02/17 08:59 09/06/17 08:20 [facility] Sep 06, 2017 12:45
[2017-09-06] MEDS ORDERED: Albuterol/Ipratropium 3ml neb HHN PRN (13:00)
[2017-09-06 16:00] VITALS: BP 135/54
[2017-09-06 20:00] VITALS: BP 147/75
[2017-09-07] VITALS: BP 139/70
[2017-09-07 04:22] VITALS: BP 152/78
[2017-09-07] MEDS: Piperacillin/Tazobactam 2.25 GM in D5W 55 ML IV SCH ×2 (05:21→14:50)
[2017-09-07 08:00] VITALS: BP 119/62
[2017-09-07] MEDS: Theophylline ER 100mg ORAL SCH ×2 (08:30→20:20)
[2017-09-07] MEDS: Metoprolol 25mg tab ORAL SCH ×2 (08:30→20:20)
[2017-09-07] MEDS: Heparin 5000 units/ml inj SUBQ SCH ×2 (08:38→21:00)
[2017-09-07] MEDS ORDERED: Solu-MEDROL 125mg Inj IV SCH (09:00)
--- NOTE | 2017-09-07 10:50 | General Progress Note ---
Assessment/Plan Problem List: (1) Vikki esophagitis ICD Codes: B37.81 - Candidal esophagitis SNOMED: 30295171 Assessment/Plan fluconazole IV fu labs advance diet HIV>>> negative Subjective ROS Limited/Unobtainable: Yes Allergies: Coded Allergies: EGG (Verified Allergy, Unknown, 09/22/15) MEPERIDINE (Verified Allergy, Unknown, 12/21/10) MORPHINE (Verified Allergy, Unknown, Shortness of Breath, 01/24/14) itching,shortness of breath,dyspnea NITROGLYCERIN (Verified Allergy, Unknown, hives, 02/18/17) Subjective feeling better Objective Last 24 Hour Vital Signs Date Time Temp Pulse Resp B/P (MAP) Pulse Ox O2 Delivery O2 Flow Rate FiO2 09/07/17 08:59 97.7 09/07/17 08:30 80 119/62 09/07/17 08:30 80 119/62 09/07/17 08:00 97.7 80 19 119/62 93 Room Air 09/07/17 04:22 97.7 70 19 152/78 98 Room Air 09/07/17 00:00 97.9 90 18 139/70 94 Room Air 09/06/17 20:26 85 147/84 09/06/17 20:00 98.2 84 18 147/75 93 Room Air 09/06/17 19:52 84 18 Room Air 09/06/17 16:00 98.6 93 19 135/54 91 Room Air 09/06/17 12:00 97.2 65 19 117/61 97 Room Air Height (Feet): 6 Height (Inches): 6.00 Weight (Pounds): 160 General Appearance: alert EENT: normal ENT inspection Neck: supple Cardiovascular: normal rate Respiratory/Chest: decreased breath sounds Abdomen: normal bowel sounds, non tender, soft Extremities: non-tender SHARON TOM Sep 07, 2017 10:50
[2017-09-07 11:35] VITALS: BP 146/69
--- NOTE | 2017-09-07 15:19 | Pulmonology Progress Note ---
Assessment/Plan Assessment/Plan ASSESSMENT COPD exacerbation emphysema acute bronchitis severe Vikki esophagitis CAD with hx of CABG CKD HTN DM seizure disorder OM R leg ( s/p prior Rx) R ankle nonhealing wound moderate dysphagia likely protein calorie malnutrition PLAN OF CARE MS floor CXR c/w COPD/hyperinflation of lungs, no acute changes O2 HHN taper steroids, change to oral in am Theophylline empiric abx sputum cx, blood cx preliminary negative a/tussive prn pain management troponin negative continue ASA Plavix BP management with BB and CCB BS management with SS of insulin seizure precautions, continue Keppra s/p EGD 09/05 with findings of severe Vikki esophagitis started on IV Fluconazole swallow eval revealed moderate dysphagia GI follows patient with hx of Vikki esophagitis started on Fluconazole strict aspiration/reflux precautions with 1 to 1 supervision diet as per ST recommendations patient consenting for PEG placement , GI informed tentatively PEG placement for am a/emetic prn diet advanced as per GI, monitor tolerance not eating dietary eval wound care as per wound nurse recombinations DVT GI prophylaxis PT/OT case discussed and evaluated by supervising physician Subjective Allergies: Coded Allergies: EGG (Verified Allergy, Unknown, 09/22/15) MEPERIDINE (Verified Allergy, Unknown, 12/21/10) MORPHINE (Verified Allergy, Unknown, Shortness of Breath, 01/24/14) itching,shortness of breath,dyspnea NITROGLYCERIN (Verified Allergy, Unknown, hives, 02/18/17) Subjective reports not eating, + nausea, difficulties swallowing swallow eval completed reported dry intermittent cough, with intermittent SOB, no chest pain no hemoptysis again explained the option re G tube to supplement oral diet ( at night) still some chest tightness but no wheezing Objective Last 24 Hour Vital Signs Date Time Temp Pulse Resp B/P (MAP) Pulse Ox O2 Delivery O2 Flow Rate FiO2 09/07/17 12:21 97.7 09/07/17 11:35 97.7 67 18 146/69 97 Room Air 09/07/17 08:30 80 119/62 09/07/17 08:30 80 119/62 09/07/17 08:00 97.7 80 19 119/62 93 Room Air 09/07/17 04:22 97.7 70 19 152/78 98 Room Air 09/07/17 00:00 97.9 90 18 139/70 94 Room Air 09/06/17 20:26 85 147/84 09/06/17 20:00 98.2 84 18 147/75 93 Room Air 09/06/17 19:52 84 18 Room Air 09/06/17 16:00 98.6 93 19 135/54 91 Room Air Objective General Appearance: no acute distress, awake, alert, oriented x 3 AA male in NAD, cachetic HEENT: normocephalic, atraumatic, anicteric, mucous membranes moist, PERRL, no JVD Respiratory/Chest: no accessory muscle use, decreased breath sounds Cardiovascular: normal peripheral pulses, regular rhythm, no JVD Abdomen: normal bowel sounds, soft, non tender Genitourinary: normal external genitalia Extremities: no edema, pedal pulses normal Skin: other - R ankle nonhealing wound 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: abnormal gait, alert, oriented x 3, responsive Musculoskeletal: atrophy - BLE, muscle wasting Current Medications Medications (Trade) Dose Ordered Sig/Aminata Route PRN Reason Start Time Stop Time Status Last Admin Dose Admin Albuterol/ Ipratropium (DuoNeb 0.5-3(2.5)mg/3ml) 3 ml Q4H PRN HHN dyspnea 09/06/17 13:00 09/11/17 12:59 Amlodipine Besylate (Norvasc) 10 mg DAILY ORAL 09/03/17 09:00 10/02/17 08:59 09/07/17 08:30 Clopidogrel Bisulfate (Plavix) 75 mg DAILY ORAL 09/03/17 09:00 10/02/17 08:59 09/07/17 08:30 Dextrose (Dextrose 50%) STAT PRN IV Hypoglycemia 09/02/17 17:30 10/01/17 17:29 Fluconazole/ Sodium Chloride 100 ml @ 100 mls/hr Q24H IV 09/05/17 13:00 09/12/17 12:59 09/07/17 13:13 Heparin Sodium (Porcine) (Heparin 5000 units/ml) 5,000 units EVERY 12 HOURS SUBQ 09/02/17 21:00 10/02/17 08:59 09/07/17 08:38 Hydromorphone HCl (Dilaudid) 3 mg Q3H PRN IVP PAIN 4-10 09/02/17 17:30 09/09/17 17:29 09/07/17 14:58 Levetiracetam (Keppra) 500 mg EVERY 12 HOURS ORAL 09/02/17 21:00 10/02/17 08:59 09/07/17 08:30 Lorazepam (Ativan 2mg/ml 1ml) 0.5 mg Q4H PRN IV For Anxiety 09/02/17 18:15 09/08/17 22:14 Methylprednisolone Sodium Succinate (Solu-MEDROL) 60 mg DAILY IV 09/07/17 09:00 10/02/17 00:00 09/07/17 08:31 Metoprolol Tartrate (Lopressor) 25 mg Q12HR ORAL 09/03/17 09:00 10/03/17 08:59 09/07/17 08:30 Ondansetron HCl (Zofran) 4 mg Q6H PRN IVP Nausea & Vomiting 09/02/17 18:00 10/01/17 17:59 Piperacillin Sod/ Tazobactam Sod 2.25 gm/Dextrose 55 ml @ 110 mls/hr EVERY 8 HOURS IV 09/02/17 22:00 09/07/17 21:59 09/07/17 14:50 Promethazine HCl/ Codeine (Phenergan with Codeine) 5 ml Q6H PRN ORAL cough 09/02/17 18:00 10/02/17 17:59 09/04/17 20:24 Ranitidine HCl (Zantac) 150 mg TWICE A DAY ORAL 09/05/17 09:00 10/05/17 08:59 09/07/17 08:30 Temazepam (Restoril) 15 mg HSPRN PRN ORAL Insomnia 09/02/17 21:00 09/08/17 20:59 09/05/17 23:43 Theophylline (Wilfrido-Dur) 100 mg EVERY 12 HOURS ORAL 09/02/17 21:00 10/02/17 08:59 09/07/17 08:30 [facility] OlsonSt[facility] HealthKristine Arroyo NP Sep 07, 2017 15:19
[2017-09-07 16:00] VITALS: BP 123/71
[2017-09-07 20:00] VITALS: BP 122/57
[2017-09-08] VITALS (12 sets, daily range): BP systolic 112–157; BP diastolic 59–81
[2017-09-08] MEDS: Heparin 5000 units/ml inj SUBQ SCH ×2 (09:00→21:07)
[2017-09-08] MEDS: Metoprolol 25mg tab ORAL SCH ×2 (09:40→21:02)
[2017-09-08] MEDS: Theophylline ER 100mg ORAL SCH ×2 (09:41→21:02)
[2017-09-08] MEDS ORDERED: LR 1000ml 1,000 ML IVLG SCH (09:50)
--- NOTE | 2017-09-08 09:53 | General Progress Note ---
Assessment/Plan Problem List: (1) Vikki esophagitis ICD Codes: B37.81 - Candidal esophagitis SNOMED: 63433333 (2) FTT (failure to thrive) in adult ICD Codes: R62.7 - Adult failure to thrive SNOMED: 934157168 Assessment/Plan fluconazole IV fu labs advance diet HIV>>> negative patient agred to PEG and is planned for today Subjective ROS Limited/Unobtainable: Yes Allergies: Coded Allergies: EGG (Verified Allergy, Unknown, 09/22/15) MEPERIDINE (Verified Allergy, Unknown, 12/21/10) MORPHINE (Verified Allergy, Unknown, Shortness of Breath, 01/24/14) itching,shortness of breath,dyspnea NITROGLYCERIN (Verified Allergy, Unknown, hives, 02/18/17) Subjective feeling better Objective Last 24 Hour Vital Signs Date Time Temp Pulse Resp B/P (MAP) Pulse Ox O2 Delivery O2 Flow Rate FiO2 09/08/17 09:42 62 112/62 09/08/17 09:40 62 112/62 09/08/17 08:00 97.4 62 20 112/62 97 Room Air 09/08/17 03:49 97.0 71 18 124/59 95 Room Air 09/08/17 01:32 74 16 Room Air 21 09/08/17 00:00 96.6 69 18 122/67 96 Room Air 09/07/17 20:20 80 131/79 09/07/17 20:00 96.8 75 18 122/57 96 Room Air 09/07/17 18:44 97.9 09/07/17 16:00 97.9 74 18 123/71 93 Room Air 09/07/17 11:35 97.7 67 18 146/69 97 Room Air Height (Feet): 6 Height (Inches): 6.00 Weight (Pounds): 160 General Appearance: alert EENT: normal ENT inspection Neck: supple Cardiovascular: normal rate Respiratory/Chest: lungs clear Abdomen: normal bowel sounds, non tender, soft Extremities: non-tender SHARON TOM Sep 08, 2017 09:53
--- NOTE | 2017-09-08 09:54 | Pre-Procedure Note/Attestation ---
Pre-Procedure Note/Attestation Complete Prior to Procedure Planned Procedure: not applicable Procedure Narrative: PEG Indications for Procedure Pre-Operative Diagnosis: dysphagia Attestation I attest that I discussed the nature of the procedure; its benefits; risks and complications; and alternatives (and the risks and benefits of such alternatives ), prior to the procedure, with the patient (or the patient's legal outside sales representative). I attest that, if there was a reasonable possibility of needing a blood transfusion, the patient (or the patient's legal outside sales representative) was given the [facility] standardized written summary, pursuant to the [place] Blood Safety Act ([place] Health and Safety Code # 1645, as amended). I attest that I re-evaluated the patient just prior to the surgery and that there has been no change in the patient's H&P, except as documented below: SHARON TOM Sep 08, 2017 09:54
--- NOTE | 2017-09-08 09:59 | Anethesia Preoperative Eval ---
Anesthesia Pre-op PMH/ROS General Date of Evaluation: Sep 08, 2017 Time of Evaluation: 10:00 Anesthesiologist: Stuart ASA Score: ASA 3 Mallampati Score Class I : Soft palate, uvula, fauces, pillars visible Class II: Soft palate, uvula, fauces visible Class III: Soft palate, base of uvula visible Class IV: Only hard plate visible Mallampati Classification: Class II Surgeon: Julien Diagnosis: Failure to thrive Surgical Procedure: PEG Allergies: Coded Allergies: EGG (Verified Allergy, Unknown, 09/22/15) MEPERIDINE (Verified Allergy, Unknown, 12/21/10) MORPHINE (Verified Allergy, Unknown, Shortness of Breath, 01/24/14) itching,shortness of breath,dyspnea NITROGLYCERIN (Verified Allergy, Unknown, hives, 02/18/17) Medications: see eMAR Past Medical History Cardiovascular: Reports: HTN, CAD - s/o CABG, arrhythmia - Frequent APCs Pulmonary: Reports: COPD Gastrointestinal/Genitourinary: Reports: CRI 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: Reports: other - Seizures Endocrine: Reports: DM PMH Narrative: HTN, CAD, DM, seizures, COPD, CRI PSxH Narrative: CABG, EGD Anesthesia Pre-op Phys. Exam Physician Exam Last Vital Signs Date Time Temp Pulse Resp B/P (MAP) Pulse Ox O2 Delivery O2 Flow Rate FiO2 09/08/17 09:42 62 112/62 09/08/17 08:00 97.4 20 97 Room Air 09/08/17 01:32 21 09/03/17 16:04 2.0 Constitutional: NAD Neurologic: CN 2-12 intact Cardiovascular: RRR, no M/R/G Respiratory: CTA Gastrointestinal: S/NT/ND Airway Exam Mallampati Score: Class II MO: full ROM: full Teeth: missing Anesthesia Pre-op A/P Labs Elevated BUN/Cr Risk Assessment & Plan Assessment: Class 3 patient for PEG Plan: GA, TIVA Status Change Before Surgery: No Pre-Antibiotics Drug: Cefoxitin Given Within 1 Hr of Incision: Yes Time Given: 10:10 JAJA PARRA M.D. Sep 08, 2017 09:59
[2017-09-08] MEDS ORDERED: Tubing IV Secondary IV ONE (10:00)
[2017-09-08] MEDS ORDERED: NS 500ML IV ONE (10:00)
[2017-09-08] MEDS ORDERED: Propofol 200mg/20ml IV ONE (10:00)
--- NOTE | 2017-09-08 10:03 | Immediate Post-Op Evaluation ---
Immediate Post-Op Evalulation Immediate Post-Op Evalulation Procedure: egd Date of Evaluation: Sep 08, 2017 Time of Evaluation: 10:45 IV Fluids: 200 Blood Pressure Systolic: 157 Blood Pressure Diastolic: 75 Pulse Rate: 62 Respiratory Rate: 13 O2 Sat by Pulse Oximetry: 100 Temperature (Fahrenheit): 97.8 Pain Score (1-10): 0 Nausea: No Vomiting: No Complications No complication Patient Status: awake, reacts, patent, none Hydration Status: adequate Drug: None JAJA PARRA M.D. Sep 08, 2017 10:03
[2017-09-08] MEDS ORDERED: cefOXitin 1gm Inj IVP ONE (10:13)
--- NOTE | 2017-09-08 10:26 | Endoscopy Procedure Note ---
Endoscopy Procedure Note Indication for Procedure: FTT Procedures Performed: EGD, PEG Operative Findings/Diagnosis: same Specimen: none Pt Tolerated Procedure Well: Yes Estimated Blood Loss: none Anesthesiologist: tamie Anesthesia: MAC Implant(s) used?: No 50 yrs or older w/o bx or poly: Not Applicable 10yrs. F/U not recommended: Not Applicable SHARON TOM Sep 08, 2017 10:26
--- NOTE | 2017-09-08 10:37 | 48 Hour Post Anesthesia Eval ---
Post Anesthesia Evaluation Procedure: PEG Date of Evaluation: Sep 08, 2017 Time of Evaluation: 11:00 Blood Pressure Systolic: 155 0: 77 Pulse Rate: 64 Respiratory Rate: 12 O2 Sat by Pulse Oximetry: 100 Airway: patent Nausea: No Vomiting: No Pain Intensity: 0 Hydration Status: adequate Cardiopulmonary Status: Stable Mental Status/LOC: patient returned to baseline Follow-up Care/Observations: As per surgery Post-Anesthesia Complications: No anesthetic complication Follow-up care needed: N/A JAJA PARRA M.D. Sep 08, 2017 10:37
[2017-09-08 12:10] LABS: HEP C VIRUS RNA (LOG IU/ML) 5.804 (.); HEPATITIS C QUANT 636950 IU/mL (.)
--- NOTE | 2017-09-08 17:45 | Procedure Note ---
DATE OF PROCEDURE: 09/08/2017 SURGEON: Micha Victoria M.D. ANESTHESIOLOGIST: [place] Davidson M.D. REFERRING PHYSICIAN: Jessie Magana M.D. PROCEDURE: Upper endoscopy with PEG placement. INSTRUMENT: Olympus adult flexible upper endoscope. INDICATION: Dysphagia, failure to thrive. REASON FOR PROCEDURE: The procedure, risks, benefits, and possible consequences, including hemorrhage, aspiration, perforation and infection, and alternative treatments, were explained to the patient/legal guardian by Dr. Micha Victoria and the patient/legal guardian understood and accepted these risks. PROCEDURE IN DETAIL: After informed consent was obtained and the patient was adequately sedated, Olympus upper endoscope was advanced from mouth into the second portion of the duodenum and retroflexion was performed in the stomach. Then under endoscopic guidance and under sterile condition, a 20-Welsh pull type of G-tube was successfully placed in the epigastric area. The distance from the tip of the tube to skin was about 2.5 cm in size. The patient tolerated the procedure very well without any complication. SUMMARY OF FINDINGS: Status post successful percutaneous endoscopic gastrostomy placement. RECOMMENDATIONS: 1. Abdominal binder. 2. Elevate the head of the bed at all times. 3. G-tube flush. 4. G-tube care. 5. Start tube feeding later today. 6. The patient received a dose of antibiotics prior to this procedure. I want to thank Dr. Magana for this kind referral. Micha Victoria M.D. DR: Jaime JOB#: [id number] CC: Jessie Magana M.D.
--- NOTE | 2017-09-08 22:10 | Pulmonology Progress Note ---
Assessment/Plan Problems: (1) Vikki esophagitis (2) COPD exacerbation (3) Emphysema lung (4) CKD (chronic kidney disease) (5) Bronchitis (6) Hx of CABG (7) DM (diabetes mellitus) (8) Osteomyelitis of right leg (9) HTN (hypertension) Assessment/Plan ID evaluaiton s/p PEG tubve respiratory treatment swallow study gi evaluation pain control dc planning Subjective ROS Limited/Unobtainable: No Constitutional: Reports: no symptoms Respiratory: Reports: no symptoms Allergies: Coded Allergies: EGG (Verified Allergy, Unknown, 09/22/15) MEPERIDINE (Verified Allergy, Unknown, 12/21/10) MORPHINE (Verified Allergy, Unknown, Shortness of Breath, 01/24/14) itching,shortness of breath,dyspnea NITROGLYCERIN (Verified Allergy, Unknown, hives, 02/18/17) Objective Last 24 Hour Vital Signs Date Time Temp Pulse Resp B/P (MAP) Pulse Ox O2 Delivery O2 Flow Rate FiO2 09/08/17 21:02 81 151/75 09/08/17 19:55 97.7 81 18 151/75 99 Nasal Cannula 2.0 09/08/17 16:00 97.5 74 18 136/67 96 Nasal Cannula 2.0 09/08/17 13:05 97.2 69 18 126/65 95 Nasal Cannula 2.0 09/08/17 11:10 97.6 64 15 128/81 100 Nasal Cannula 3.0 09/08/17 10:55 60 16 125/75 100 Nasal Cannula 3.0 09/08/17 10:45 61 16 132/65 100 Nasal Cannula 3.0 09/08/17 10:40 60 15 156/80 100 Simple Mask 6.0 09/08/17 10:37 64 12 100 09/08/17 10:35 97.8 62 14 157/75 100 Simple Mask 6.0 09/08/17 10:35 62 13 100 09/08/17 09:42 62 112/62 09/08/17 09:40 62 112/62 09/08/17 08:29 76 16 Room Air 21 09/08/17 08:00 97.4 62 20 112/62 97 Room Air 09/08/17 03:49 97.0 71 18 124/59 95 Room Air 09/08/17 01:32 74 16 Room Air 21 09/08/17 00:00 96.6 69 18 122/67 96 Room Air Intake and Output 09/08/17 09/09/17 19:00 07:00 Intake Total 200 ml Output Total 300 ml Balance -100 ml IV Total 200 ml Output Urine Total 300 ml General Appearance: cachetic HEENT: normocephalic, anicteric Respiratory/Chest: chest wall non-tender, lungs clear Cardiovascular: normal peripheral pulses Abdomen: normal bowel sounds, no scars Skin: no rash 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: flower 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 or picker II-XII grossly normal Current Medications Medications (Trade) Dose Ordered Sig/Aminata Route PRN Reason Start Time Stop Time Status Last Admin Dose Admin Albuterol/ Ipratropium (DuoNeb 0.5-3(2.5)mg/3ml) 3 ml Q4H PRN HHN dyspnea 09/06/17 13:00 09/11/17 12:59 Amlodipine Besylate (Norvasc) 10 mg DAILY ORAL 09/03/17 09:00 10/02/17 08:59 09/08/17 09:42 Clopidogrel Bisulfate (Plavix) 75 mg DAILY ORAL 09/03/17 09:00 10/02/17 08:59 09/08/17 09:42 Dextrose (Dextrose 50%) STAT PRN IV Hypoglycemia 09/02/17 17:30 10/01/17 17:29 Fluconazole/ Sodium Chloride 100 ml @ 100 mls/hr Q24H IV 09/05/17 13:00 09/12/17 12:59 09/08/17 15:53 Heparin Sodium (Porcine) (Heparin 5000 units/ml) 5,000 units EVERY 12 HOURS SUBQ 09/02/17 21:00 10/02/17 08:59 09/08/17 21:07 Hydromorphone HCl (Dilaudid) 4 mg Q3H PRN IVP PAIN 4-10 09/08/17 17:00 09/15/17 16:59 09/08/17 19:56 Levetiracetam (Keppra) 500 mg EVERY 12 HOURS ORAL 09/02/17 21:00 10/02/17 08:59 09/08/17 21:02 Lorazepam (Ativan 2mg/ml 1ml) 0.5 mg Q4H PRN IV For Anxiety 09/02/17 18:15 09/08/17 22:14 Metoprolol Tartrate (Lopressor) 25 mg Q12HR ORAL 09/03/17 09:00 10/03/17 08:59 09/08/17 21:02 Ondansetron HCl (Zofran) 4 mg Q6H PRN IVP Nausea & Vomiting 09/02/17 18:00 10/01/17 17:59 Prednisone (predniSONE) 60 mg Taper DAILY ORAL 09/08/17 09:00 09/14/17 08:59 Promethazine HCl/ Codeine (Phenergan with Codeine) 5 ml Q6H PRN ORAL cough 09/02/17 18:00 10/02/17 17:59 09/04/17 20:24 Ranitidine HCl (Zantac) 150 mg TWICE A DAY ORAL 09/05/17 09:00 10/05/17 08:59 09/08/17 19:02 Theophylline (Wilfrido-Dur) 100 mg EVERY 12 HOURS ORAL 09/02/17 21:00 10/02/17 08:59 09/08/17 21:02 TAI SWEENEY Sep 08, 2017 22:10
[2017-09-09 03:42] VITALS: BP 123/70
[2017-09-09 07:08] LABS: EOSINOPHILS % (AUTO) 0.7 % (0.0-3.0); LYMPHOCYTES % (AUTO) 10.1 % (20.0-45.0); MEAN CORPUSCULAR HEMOGLOBIN 27.3 PG (27.0-31.0); MEAN CORPUSCULAR HGB CONC 31.3 G/DL (32.0-36.0); MEAN CORPUSCULAR VOLUME 87 FL (80-99); MEAN PLATELET VOLUME 6.2 FL (6.5-10.1); MONOCYTES % (AUTO) 10.6 % (1.0-10.0); NEUTROPHILS % (AUTO) 76.7 % (45.0-75.0); PLATELET COUNT 400 K/UL (150-450); RED BLOOD COUNT 4.74 M/UL (4.70-6.10); RED CELL DISTRIBUTION WIDTH 18.2 % (11.6-14.8); WHITE BLOOD COUNT 15.7 K/UL (4.8-10.8)
[2017-09-09 07:46] LABS: ANION GAP 7 mmol/L (5-15); CALCIUM 8.7 MG/DL (8.5-10.1); CARBON DIOXIDE 28 MMOL/L (21-32); CHLORIDE 101 MMOL/L (98-107); CREATININE 1.2 MG/DL (0.55-1.30); GLOMERULAR FILTRATION RATE > 60 mL/min (>60); POTASSIUM 4.7 MMOL/L (3.5-5.1); SODIUM 136 MMOL/L (136-145)
[2017-09-09 08:13] VITALS: BP 158/78
[2017-09-09] MEDS: Theophylline ER 100mg ORAL SCH ×2 (08:53→20:08)
[2017-09-09] MEDS: Metoprolol 25mg tab ORAL SCH ×2 (08:54→20:08)
[2017-09-09] MEDS: Heparin 5000 units/ml inj SUBQ SCH ×2 (09:05→20:10)
[2017-09-09 12:00] VITALS: BP 109/62
--- NOTE | 2017-09-09 13:01 | Consultation ---
Consult Note Consult Note ID CONSULT: Shobha# [id number] Assessment/Plan ASSESSMENT: 66 y/o male with: // Vikki esophagitis, on fluconazole, m/l 2/2 repeated steroid, ABX exposure - negative: HIV // Acute leukocytosis, afebrile ( on steroids ) // COPD exacerbation // h/o chronic non-healing lateral RLE ulcer, not grossly infected Wnd Cx: Colonizer - MRI 10/30: No evidence of acute osteomyelitis. Multiple bone infarcts. Post fracture deformity of the distal tibia and fibula. 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 TTE EF 60-65%, grade 1 diastolic dysfunction, mod pHTN, trace MR, mild TR PAD DM Seizure disorder. CVA MDRO colonized No ABX allergies Full Code PLAN: - continue fluconazole d# - taper steroids per pulm - monitor CBC, temperatures - monitor BMP - monitor CXR - wound care - PEG care Thanks! Will follow ETHAN KHAN Sep 09, 2017 13:01
--- NOTE | 2017-09-09 14:27 | Wound Nurse Progress Note ---
Wound RN Progress Note Wound Consult #1 Right lateral lower leg ankle area, non-healing full thickness open wound.- upon reassessment noted good progress to wound bed remains pink in color, no further deterioration present,current wound care is effective, no foul odor. Recommendation. -Right lateral lower leg ankle area, non-healing full thickness open wound. Cleanse with saline, pat dry, apply Hydrogel, cover with calcium alginate, secure with bordered gauze daily and PRN soiled/dislodged -Turn and reposition. -Keep clean and dry. -Offload both heels -Heel protector on both heels . -Optimize nutrition. -Assess and f/u accordingly for any changes RAMA SIMON Sep 09, 2017 14:27
[2017-09-09 15:50] VITALS: BP 128/61
--- NOTE | 2017-09-09 15:53 | GI Progress Note ---
Assessment/Plan Problems: (1) Vikki esophagitis ICD Codes: B37.81 - Candidal esophagitis SNOMED: 08028526 (2) Severe malnutrition ICD Codes: E43 - Unspecified severe protein-calorie malnutrition SNOMED: 74931710 (3) Dehydration ICD Codes: E86.0 - Dehydration SNOMED: 09148636 (4) FTT (failure to thrive) in adult ICD Codes: R62.7 - Adult failure to thrive SNOMED: 583655893 (5) Esophagitis ICD Codes: K20.9 - Esophagitis, unspecified SNOMED: 44895118 Status: stable Status Narrative Discussed with Dr. Victoria. Assessment/Plan SUMMARY OF FINDINGS: Status post successful percutaneous endoscopic gastrostomy placement. RECOMMENDATIONS: bx >> negative H. Pylori fluconazole IV advance diet, push PO HIV>>> negative GTFs per dietary fu labs Subjective Subjective ready to go home Objective Last 24 Hour Vital Signs Date Time Temp Pulse Resp B/P (MAP) Pulse Ox O2 Delivery O2 Flow Rate FiO2 09/09/17 12:00 97.1 64 17 109/62 96 Room Air 09/09/17 08:54 92 158/78 09/09/17 08:54 92 158/78 09/09/17 08:13 98.0 92 20 158/78 95 Room Air 09/09/17 07:54 90 16 Room Air 21 09/09/17 03:42 97.7 74 20 123/70 94 Nasal Cannula 2.0 09/08/17 23:51 97.9 71 20 152/67 Nasal Cannula 2.0 09/08/17 21:02 81 151/75 09/08/17 19:55 97.7 81 18 151/75 99 Nasal Cannula 2.0 09/08/17 16:00 97.5 74 18 136/67 96 Nasal Cannula 2.0 Intake and Output 09/09/17 09/10/17 19:00 07:00 Intake Total 570 ml Output Total 500 ml Balance 70 ml Intake Oral 360 ml IV Total 100 ml Tube Feeding 110 ml Output Urine Total 500 ml Laboratory Tests Test 09/09/17 05:55 White Blood Count 15.7 K/UL (4.8-10.8) H Red Blood Count 4.74 M/UL (4.70-6.10) Hemoglobin 12.9 G/DL (14.2-18.0) L Hematocrit 41.2 % (42.0-52.0) L Mean Corpuscular Volume 87 FL (80-99) Mean Corpuscular Hemoglobin 27.3 PG (27.0-31.0) Mean Corpuscular Hemoglobin Concent 31.3 G/DL (32.0-36.0) L Red Cell Distribution Width 18.2 % (11.6-14.8) H Platelet Count 400 K/UL (150-450) Mean Platelet Volume 6.2 FL (6.5-10.1) L Neutrophils (%) (Auto) 76.7 % (45.0-75.0) H Lymphocytes (%) (Auto) 10.1 % (20.0-45.0) L Monocytes (%) (Auto) 10.6 % (1.0-10.0) H Eosinophils (%) (Auto) 0.7 % (0.0-3.0) Basophils (%) (Auto) 2.0 % (0.0-2.0) Sodium Level 136 MMOL/L (136-145) Potassium Level 4.7 MMOL/L (3.5-5.1) Chloride Level 101 MMOL/L (98-107) Carbon Dioxide Level 28 MMOL/L (21-32) Anion Gap 7 mmol/L (5-15) Blood Urea Nitrogen 24 mg/dL (7-18) H Creatinine 1.2 MG/DL (0.55-1.30) Estimat Glomerular Filtration Rate > 60 mL/min (>60) Glucose Level 107 MG/DL (74-106) H Calcium Level 8.7 MG/DL (8.5-10.1) Height (Feet): 6 Height (Inches): 6.00 Weight (Pounds): 160 General Appearance: WD/WN, no apparent distress, alert Cardiovascular: normal rate Respiratory/Chest: normal breath sounds, no respiratory distress Abdominal Exam: normal bowel sounds, non tender, soft, GT site - c/d/i Extremities: normal range of motion, non-tender Nancy Sweeney N.P. Sep 09, 2017 15:53
--- NOTE | 2017-09-09 17:15 | Consultation ---
DATE OF CONSULTATION: 09/09/2017 INFECTIOUS DISEASES CONSULTATION REQUESTING PHYSICIAN: Jessie Magana M.D. REASON FOR CONSULTATION: Vikki esophagitis. HISTORY OF PRESENT ILLNESS: This is a 66-year-old male with a history of recurrent COPD exacerbations, was admitted on 09/09/2017 again recurrence. He has been on steroids with mild improvement. He underwent upper endoscopy for evaluation of dysphagia and failure to thrive and was found to have a severe case of Vikki esophagitis. He has been started on fluconazole. Also, noted to have acute leukocytosis today and afebrile on steroids. Hospital course also complicated by acute on chronic renal insufficiency, that is improving. ID now consulted to assist in management. PAST MEDICAL HISTORY: 1. Hypertension. 2. Seizure disorder. 3. COPD. 4. Chronic hepatitis C. 5. Chronic kidney disease stage 3. 6. Diabetes. 7. Peripheral arterial disease. 8. History of stroke. 9. History of coronary artery disease status post CABG. 10. History of chronic nonhealing right lower extremity lateral leg ulcer. MEDICATIONS: 1. Prednisone. 2. Fluconazole. 3. Dilaudid. 4. Zantac. 5. Norvasc. 6. Plavix. 7. Metoprolol. 8. Subcutaneous heparin. 9. Keppra. 10. Theophylline. ALLERGIES: 1. Egg. 2. Meperidine. 3. Morphine. 4. Nitroglycerin. SOCIAL HISTORY: No active tobacco, alcohol, or illicit drug abuse. FAMILY HISTORY: Reviewed and noncontributory. REVIEW OF SYSTEMS: As per history of present illness. Ten systems reviewed. All pertinent positives and negatives noted. PHYSICAL EXAMINATION: VITAL SIGNS: Maximum temperature 98 degrees, blood pressure 158/78, heart rate in the 90s, respiratory rate 20, and saturating 95% on room air. GENERAL: No apparent distress. Nontoxic appearing. HEENT: Eye exam, no conjunctivitis or scleral icterus. Head and neck exam, no thrush. CARDIOVASCULAR: Regular rate and rhythm. No murmurs. PULMONARY: Clear to auscultation bilaterally. ABDOMEN: Bowel sounds present. Soft, nondistended, and nontender. EXTREMITIES: No edema. Wound is bandaged. LABORATORY AND DIAGNOSTIC DATA: White blood cell count 15.7 with left shift, hemoglobin 12.9, and platelets 400. Sodium 136, potassium 4.7, chloride 101, bicarbonate 28, BUN 24, and creatinine 1.2. Microbiology, on 09/01/2017, blood culture negative. Imaging, on 09/01/2017, chest x-ray COPD and no acute cardiopulmonary findings. ASSESSMENT: 1. Vikki esophagitis, on fluconazole, most likely secondary to repeated steroid and antibiotic exposure. An human immunodeficiency virus test is negative. 2. Acute leukocytosis and afebrile, suspect steroid-induced. 3. Recurrent chronic obstructive pulmonary disease exacerbation. 4. History of chronic nonhealing lateral right lower extremity ulcer, not grossly infected. 5. Chronic hepatitis C. PCR of 636,950. Liver function tests within normal limits. 6. Acute renal failure on chronic kidney disease stage 3, improved. 7. Dysphagia, status post percutaneous endoscopic gastrostomy tube placement on 09/08/2017. 8. Failure to thrive. 9. Peripheral arterial disease. 10. Diabetes. 11. Seizure disorder. 12. Stroke. 13. History of coronary artery disease status post coronary artery bypass graft. 14. Multi-drug resistant organism colonized. 15. No antibiotic allergies. 16. Full Code. PLAN: 1. Continue fluconazole day #5 of 14. 2. Taper steroids per Pulmonary. 3. Monitor CBC and temperatures. 4. Monitor BMP. 5. Monitor chest x-ray. 6. Wound care. 7. PEG care. Thank you. We will follow. Fletcher Sabillon M.D. DR: SUSSY JOB#: [id number] CC: Jessie Magana M.D.; Fax#: [phone] Cora Barraza M.D; FAX#: [phone]
[2017-09-09 20:00] VITALS: BP 131/63
--- NOTE | 2017-09-09 22:22 | Pulmonology Progress Note ---
Assessment/Plan Problems: (1) Vikki esophagitis (2) COPD exacerbation (3) Emphysema lung (4) CKD (chronic kidney disease) (5) Bronchitis (6) Hx of CABG (7) DM (diabetes mellitus) (8) Osteomyelitis of right leg (9) HTN (hypertension) Assessment/Plan wbc higher today s/p PEG tubve respiratory treatment swallow study gi evaluation pain control dc planning Subjective ROS Limited/Unobtainable: No Constitutional: Reports: no symptoms HEENT: Repors: no symptoms Allergies: Coded Allergies: EGG (Verified Allergy, Unknown, 09/22/15) MEPERIDINE (Verified Allergy, Unknown, 12/21/10) MORPHINE (Verified Allergy, Unknown, Shortness of Breath, 01/24/14) itching,shortness of breath,dyspnea NITROGLYCERIN (Verified Allergy, Unknown, hives, 02/18/17) Objective Last 24 Hour Vital Signs Date Time Temp Pulse Resp B/P (MAP) Pulse Ox O2 Delivery O2 Flow Rate FiO2 09/09/17 20:38 98.2 09/09/17 20:08 85 128/61 09/09/17 20:06 85 16 Room Air 21 09/09/17 20:00 98.1 86 18 131/63 92 Room Air 09/09/17 15:50 98.2 77 18 128/61 93 Room Air 09/09/17 12:00 97.1 64 17 109/62 96 Room Air 09/09/17 08:54 92 158/78 09/09/17 08:54 92 158/78 09/09/17 08:13 98.0 92 20 158/78 95 Room Air 09/09/17 07:54 90 16 Room Air 21 09/09/17 03:42 97.7 74 20 123/70 94 Nasal Cannula 2.0 09/08/17 23:51 97.9 71 20 152/67 Nasal Cannula 2.0 Intake and Output 09/09/17 09/10/17 19:00 07:00 Intake Total 1560 ml 220 ml Output Total 900 ml Balance 660 ml 220 ml Intake Oral 600 ml Free Water 200 ml IV Total 100 ml Tube Feeding 660 ml 220 ml Output Urine Total 900 ml General Appearance: WD/WN HEENT: normocephalic, atraumatic Respiratory/Chest: chest wall non-tender, lungs clear Cardiovascular: normal peripheral pulses, normal rate Abdomen: normal bowel sounds, soft, non tender Genitourinary: normal external genitalia 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 Laboratory Tests 09/09/17 05:55: White Blood Count 15.7H, Red Blood Count 4.74, Hemoglobin 12.9L, Hematocrit 41.2L, Mean Corpuscular Volume 87, Mean Corpuscular Hemoglobin 27.3, Mean Corpuscular Hemoglobin Concent 31.3L, Red Cell Distribution Width 18.2H, Platelet Count 400, Mean Platelet Volume 6.2L, Neutrophils (%) (Auto) 76.7H, Lymphocytes (%) (Auto) 10.1L, Monocytes (%) (Auto) 10.6H, Eosinophils (%) (Auto ) 0.7, Basophils (%) (Auto) 2.0, Sodium Level 136, Potassium Level 4.7, Chloride Level 101, Carbon Dioxide Level 28, Anion Gap 7, Blood Urea Nitrogen 24H, Creatinine 1.2, Estimat Glomerular Filtration Rate > 60, Glucose Level 107H , Calcium Level 8.7 Current Medications Medications (Trade) Dose Ordered Sig/Aminata Route PRN Reason Start Time Stop Time Status Last Admin Dose Admin Albuterol/ Ipratropium (DuoNeb 0.5-3(2.5)mg/3ml) 3 ml Q4H PRN HHN dyspnea 09/06/17 13:00 09/11/17 12:59 Amlodipine Besylate (Norvasc) 10 mg DAILY ORAL 09/03/17 09:00 10/02/17 08:59 09/09/17 08:54 Clopidogrel Bisulfate (Plavix) 75 mg DAILY ORAL 09/03/17 09:00 10/02/17 08:59 09/09/17 08:53 Dextrose (Dextrose 50%) STAT PRN IV Hypoglycemia 09/02/17 17:30 10/01/17 17:29 Fluconazole/ Sodium Chloride 100 ml @ 100 mls/hr Q24H IV 09/05/17 13:00 09/12/17 12:59 09/09/17 13:01 Heparin Sodium (Porcine) (Heparin 5000 units/ml) 5,000 units EVERY 12 HOURS SUBQ 09/02/17 21:00 10/02/17 08:59 09/09/17 20:10 Hydromorphone HCl (Dilaudid) 4 mg Q3H PRN IVP PAIN 4-10 09/08/17 17:00 09/15/17 16:59 09/09/17 20:08 Levetiracetam (Keppra) 500 mg EVERY 12 HOURS ORAL 09/02/17 21:00 10/02/17 08:59 09/09/17 20:08 Metoprolol Tartrate (Lopressor) 25 mg Q12HR ORAL 09/03/17 09:00 10/03/17 08:59 09/09/17 20:08 Ondansetron HCl (Zofran) 4 mg Q6H PRN IVP Nausea & Vomiting 09/02/17 18:00 10/01/17 17:59 Prednisone (predniSONE) 50 mg Taper DAILY ORAL 09/08/17 09:00 09/14/17 08:59 09/09/17 08:54 Promethazine HCl/ Codeine (Phenergan with Codeine) 5 ml Q6H PRN ORAL cough 09/02/17 18:00 10/02/17 17:59 09/04/17 20:24 Ranitidine HCl (Zantac) 150 mg TWICE A DAY ORAL 09/05/17 09:00 10/05/17 08:59 09/09/17 17:01 Theophylline (Wilfrido-Dur) 100 mg EVERY 12 HOURS ORAL 09/02/17 21:00 10/02/17 08:59 09/09/17 20:08 TAI SWEENEY Sep 09, 2017 22:22
[2017-09-10] VITALS: BP 136/68
[2017-09-10 04:00] VITALS: BP 129/64
[2017-09-10 07:43] LABS: BASOPHILS % (AUTO) 1.1 % (0.0-2.0); EOSINOPHILS % (AUTO) 0.2 % (0.0-3.0); LYMPHOCYTES % (AUTO) 10.8 % (20.0-45.0); MEAN CORPUSCULAR HEMOGLOBIN 28.2 PG (27.0-31.0); MEAN CORPUSCULAR HGB CONC 32.6 G/DL (32.0-36.0); MEAN CORPUSCULAR VOLUME 87 FL (80-99); MEAN PLATELET VOLUME 6.7 FL (6.5-10.1); MONOCYTES % (AUTO) 9.4 % (1.0-10.0); NEUTROPHILS % (AUTO) 78.5 % (45.0-75.0); PLATELET COUNT 359 K/UL (150-450); RED BLOOD COUNT 4.12 M/UL (4.70-6.10); RED CELL DISTRIBUTION WIDTH 18.4 % (11.6-14.8); WHITE BLOOD COUNT 16.6 K/UL (4.8-10.8)
[2017-09-10 07:52] LABS: ANION GAP 7 mmol/L (5-15); CALCIUM 8.4 MG/DL (8.5-10.1); CARBON DIOXIDE 28 MMOL/L (21-32); CHLORIDE 103 MMOL/L (98-107); CREATININE 1.3 MG/DL (0.55-1.30); GLOMERULAR FILTRATION RATE > 60 mL/min (>60); POTASSIUM 4.2 MMOL/L (3.5-5.1); SODIUM 138 MMOL/L (136-145)
[2017-09-10 08:00] VITALS: BP 121/64
[2017-09-10] MEDS: Theophylline ER 100mg ORAL SCH (08:19)
[2017-09-10] MEDS: Metoprolol 25mg tab ORAL SCH (08:19)
[2017-09-10 08:20] VITALS: BP 129/64
[2017-09-10] MEDS: Heparin 5000 units/ml inj SUBQ SCH (08:21)
[2017-09-10] MEDS ORDERED: THEOPHYLLINE A100 MG ORAL (10:43)
[2017-09-10] MEDS ORDERED: Sterile Water For Irrig 2000ml IRRIG ONE (11:12)
--- NOTE | 2017-09-10 12:36 | GI Progress Note ---
Assessment/Plan Problems: (1) Vikki esophagitis ICD Codes: B37.81 - Candidal esophagitis SNOMED: 64006872 (2) Severe malnutrition ICD Codes: E43 - Unspecified severe protein-calorie malnutrition SNOMED: 99551003 (3) Dehydration ICD Codes: E86.0 - Dehydration SNOMED: 53090963 (4) FTT (failure to thrive) in adult ICD Codes: R62.7 - Adult failure to thrive SNOMED: 353409887 (5) Esophagitis ICD Codes: K20.9 - Esophagitis, unspecified SNOMED: 24686960 Status: stable Status Narrative Discussed with Dr. Victoria. Assessment/Plan SUMMARY OF FINDINGS: Status post successful percutaneous endoscopic gastrostomy placement. RECOMMENDATIONS: okay for DC per GI standpoint bx >> negative H. Pylori fluconazole IV advance diet, push PO HIV>>> negative GTFs per dietary fu labs Subjective Subjective states he is going home today Objective Last 24 Hour Vital Signs Date Time Temp Pulse Resp B/P (MAP) Pulse Ox O2 Delivery O2 Flow Rate FiO2 09/10/17 08:20 83 129/64 09/10/17 08:19 83 129/64 09/10/17 08:00 98.4 90 19 121/64 96 Room Air 09/10/17 05:34 98.0 09/10/17 04:00 98.0 83 18 129/64 94 Room Air 09/10/17 00:00 98.4 81 18 136/68 96 Room Air 09/09/17 20:08 85 128/61 09/09/17 20:06 85 16 Room Air 21 09/09/17 20:00 98.1 86 18 131/63 92 Room Air 09/09/17 15:50 98.2 77 18 128/61 93 Room Air Laboratory Tests Test 09/10/17 06:10 White Blood Count 16.6 K/UL (4.8-10.8) H Red Blood Count 4.12 M/UL (4.70-6.10) L Hemoglobin 11.6 G/DL (14.2-18.0) L Hematocrit 35.7 % (42.0-52.0) L Mean Corpuscular Volume 87 FL (80-99) Mean Corpuscular Hemoglobin 28.2 PG (27.0-31.0) Mean Corpuscular Hemoglobin Concent 32.6 G/DL (32.0-36.0) Red Cell Distribution Width 18.4 % (11.6-14.8) H Platelet Count 359 K/UL (150-450) Mean Platelet Volume 6.7 FL (6.5-10.1) Neutrophils (%) (Auto) 78.5 % (45.0-75.0) H Lymphocytes (%) (Auto) 10.8 % (20.0-45.0) L Monocytes (%) (Auto) 9.4 % (1.0-10.0) Eosinophils (%) (Auto) 0.2 % (0.0-3.0) Basophils (%) (Auto) 1.1 % (0.0-2.0) Sodium Level 138 MMOL/L (136-145) Potassium Level 4.2 MMOL/L (3.5-5.1) Chloride Level 103 MMOL/L (98-107) Carbon Dioxide Level 28 MMOL/L (21-32) Anion Gap 7 mmol/L (5-15) Blood Urea Nitrogen 27 mg/dL (7-18) H Creatinine 1.3 MG/DL (0.55-1.30) Estimat Glomerular Filtration Rate > 60 mL/min (>60) Glucose Level 150 MG/DL (74-106) H Calcium Level 8.4 MG/DL (8.5-10.1) L Height (Feet): 6 Height (Inches): 6.00 Weight (Pounds): 160 General Appearance: WD/WN, no apparent distress, alert Cardiovascular: normal rate Respiratory/Chest: normal breath sounds, no respiratory distress Abdominal Exam: normal bowel sounds, non tender, soft, GT site - c/d/i Extremities: normal range of motion, non-tender Nancy Sweeney N.P. Sep 10, 2017 12:36
--- NOTE | 2017-09-10 22:45 | Pulmonology Progress Note ---
Assessment/Plan Problems: (1) Vikki esophagitis (2) COPD exacerbation (3) Emphysema lung (4) CKD (chronic kidney disease) (5) Bronchitis (6) Hx of CABG (7) DM (diabetes mellitus) (8) Osteomyelitis of right leg (9) HTN (hypertension) Assessment/Plan s/p PEG tubve respiratory treatment swallow study gi evaluation pain control dc planning Subjective ROS Limited/Unobtainable: No Constitutional: Reports: no symptoms Allergies: Coded Allergies: EGG (Verified Allergy, Unknown, 09/22/15) MEPERIDINE (Verified Allergy, Unknown, 12/21/10) MORPHINE (Verified Allergy, Unknown, Shortness of Breath, 01/24/14) itching,shortness of breath,dyspnea NITROGLYCERIN (Verified Allergy, Unknown, hives, 02/18/17) Objective Last 24 Hour Vital Signs Date Time Temp Pulse Resp B/P (MAP) Pulse Ox O2 Delivery O2 Flow Rate FiO2 09/10/17 08:20 83 129/64 09/10/17 08:19 83 129/64 09/10/17 08:00 98.4 90 19 121/64 96 Room Air 09/10/17 05:34 98.0 09/10/17 04:00 98.0 83 18 129/64 94 Room Air 09/10/17 00:00 98.4 81 18 136/68 96 Room Air General Appearance: cachetic HEENT: normocephalic, atraumatic Respiratory/Chest: chest wall non-tender, lungs clear Cardiovascular: normal peripheral pulses, normal rate Abdomen: normal bowel sounds, no organomegaly Extremities: no cyanosis, no clubbing 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: no motor/sensory deficits Laboratory Tests 09/10/17 06:10: White Blood Count 16.6H, Red Blood Count 4.12L, Hemoglobin 11.6L, Hematocrit 35.7L, Mean Corpuscular Volume 87, Mean Corpuscular Hemoglobin 28.2, Mean Corpuscular Hemoglobin Concent 32.6, Red Cell Distribution Width 18.4H, Platelet Count 359, Mean Platelet Volume 6.7, Neutrophils (%) (Auto) 78.5H, Lymphocytes (%) (Auto) 10.8L, Monocytes (%) (Auto) 9.4, Eosinophils (%) (Auto) 0.2, Basophils (%) (Auto) 1.1, Sodium Level 138, Potassium Level 4.2, Chloride Level 103, Carbon Dioxide Level 28, Anion Gap 7, Blood Urea Nitrogen 27H, Creatinine 1.3, Estimat Glomerular Filtration Rate > 60, Glucose Level 150H, Calcium Level 8.4L TAI SWEENEY Sep 10, 2017 22:45
--- NOTE | 2017-09-12 15:01 | Discharge Summary ---
Discharge Summary Hospital Course Date of Admission Sep 01, 2017 at 21:39 Date of Discharge Sep 10, 2017 at 11:13 Admitting Diagnosis SHORTNESS OF BREATH/hypoxia HPI Benjamin Ring is a 66 year old male who was admitted on Sep 01, 2017 at 21:39 for Shortness Of Breath, Hypoxia Hospital Course [id number] Discharge Discharge Disposition Patient was discharged home but did not wait for arrangements to be made. Discharge Diagnoses: Torie Henderson NP Sep 12, 2017 15:01
--- NOTE | 2017-09-12 15:41 | Cardiology Report ---
APPROVED REPORT EKG Measurement Heart [id number] Sinus tachycardia Biatrial enlargement Abnormal ECG
--- NOTE | 2017-09-13 04:00 | Discharge Summary 2 SIG ---
DATE OF ADMISSION: 09/01/2017 DATE OF DISCHARGE: 09/10/2017 CONSULTANTS: 1. Micha Victoria M.D. 2. Fletcher Sabillon M.D. BRIEF HOSPITAL COURSE: The patient is a 66-year-old male with history of COPD, diabetes mellitus, hypertension, coronary artery disease, and seizure, who was wheeled in from home complaining of chest pain and shortness of breath for the past four days. He also complained of wheezing, although denied fever or chills. On evaluation at ED, labs showed hyperkalemia of 5.5. Labs showed no leukocytosis. Chest x-ray showed no acute cardiopulmonary process. He was admitted to telemetry for acute COPD exacerbation and was given respiratory treatments and was started on IV steroids and IV Zosyn. He was given theophylline and was continued on antihypertensives, amlodipine, and Lopressor. Blood sugars were monitored and given sliding scale of NovoLog insulin. He complained of painful swallowing. Speech evaluation showed moderate dysphagia. On 09/05/2017, he underwent EGD with findings of severe candidal esophagitis. He was started on IV fluconazole. HIV screen was negative. He agreed to PEG tube placement and underwent EGD with insertion of PEG tube on 09/08/2017. Steroids were eventually tapered. The patient has chronic hepatitis C. Liver function test was within normal limits. He had a right lateral lower leg ankle nonhealing full-thickness wound. He was given wound care. H. pylori was negative. He was started on G-tube feedings and was tolerating feeding well. He was recommended transfer to SNF, however, refused SNF placement. The patient was discharged home, however, did not wait for full home care to be provided. The patient left against medical advice. FINAL DIAGNOSES: 1. Acute chronic obstructive pulmonary disease exacerbation. 2. Severe candidal esophagitis. 3. Dysphagia with failure to thrive. 4. Bronchitis. 5. Diabetes mellitus. 6. Hypertension. 7. Coronary artery disease with coronary artery bypass graft. 8. Prior osteomyelitis of the right leg. 9. Severe protein-calorie malnutrition. 10. Acute leukocytosis, suspect steroid induced. 11. Chronic hepatitis C. 12. Acute renal failure on chronic kidney disease, stage 3. 13. Peripheral artery disease. 14. Seizure disorder. 15. Multidrug-resistant organism, colonized. 16. Right lateral lower leg ankle area with nonhealing full-thickness open wound, present on admission. DISPOSITION: The patient was discharged home. He did not wait for full arrangements for home care to be made. DISCHARGE MEDICATIONS: Refer to medication list. Jessie Magana M.D. I have been assigned to dictate discharge summary on this account and I was not involved in the patient's management. Torie Henderson N.P. DR: CORNELIUS JOB#: [id number] CC: DAX
== END 2017-09-10 11:13 | disposition left against medical advice (07) | DRG 140 ==
LOC: EMR 21:38 → 2E 21:39 → EDBEDREQ 23:26 → 4W 09-02 17:00
PROC: 0DB78ZX Excision of Stomach, Pylorus, Via Natural or Artificial Opening Endoscopic, Diagnostic (ICD-10-PCS; principal; 2017-09-05 11:02)
PROC: 0DH63UZ Insertion of Feeding Device into Stomach, Percutaneous Approach (ICD-10-PCS; 2017-09-08 10:16)
DX: J44.1 Chronic obstructive pulmonary disease with (acute) exacerbation (principal); E43 Unspecified severe protein-calorie malnutrition; N17.9 Acute kidney failure, unspecified; E11.22 Type 2 diabetes mellitus with diabetic chronic kidney disease; B37.81 Candidal esophagitis; R13.10 Dysphagia, unspecified; E87.5 Hyperkalemia; L97.319 Non-pressure chronic ulcer of right ankle with unspecified severity; E86.0 Dehydration; N18.3 Chronic kidney disease, stage 3 (moderate); I12.9 Hypertensive chronic kidney disease with stage 1 through stage 4 chronic kidney disease, or unspecified chronic kidney disease; Z95.1 Presence of aortocoronary bypass graft; I25.10 Atherosclerotic heart disease of native coronary artery without angina pectoris; Z66 Do not resuscitate; Z95.0 Presence of cardiac pacemaker; D64.9 Anemia, unspecified; Z68.1 Body mass index [BMI] 19.9 or less, adult; E03.9 Hypothyroidism, unspecified; K29.70 Gastritis, unspecified, without bleeding; G40.909 Epilepsy, unspecified, not intractable, without status epilepticus; R62.7 Adult failure to thrive; Z86.73 Personal history of transient ischemic attack (TIA), and cerebral infarction without residual deficits; Z88.6 Allergy status to analgesic agent; Z88.8 Allergy status to other drugs, medicaments and biological substances; B18.2 Chronic viral hepatitis C; J40 Bronchitis, not specified as acute or chronic; I73.9 Peripheral vascular disease, unspecified; Z79.02 Long term (current) use of antithrombotics/antiplatelets; I25.2 Old myocardial infarction
CPT/HCPCS: 36415; 71010; 80048; 80053; 80299; 82378; 82550; 82553; 83540; 83550; 83880; 84484; 85007; 85025; 85610; 85730; 86703; 87040; 87522; 87902; 93005; 94003; 94150; 94640; 94664; 94760; 97802; 99285; J7620

== ENCOUNTER 2018-03-22 05:29 | Inpatient (IN) | payer MEDICARE, MEDICAID ==
[~2018-03-22] VITALS: Ht 182.9 cm; Wt 63.5 kg
[~2018-03-22 05:29] MED LIST changes: +AMBIEN5 M1 PO; +DOCUSATE SODIU100 M2 ORAL; +LEVETIRACE500 MG/5 M IV; +METOPROLOL SUCC50 MG ORAL; +OMEPRAZOLE10 M1 ORAL; +SUCRALFATE1 GM/10 ML PO; +ZANTAC150 MG ORAL
--- NOTE | 2018-03-22 05:43 | Emergency Room Report ---
History of Present Illness General Chief Complaint: Dyspnea/Respdistress Source: Patient, Family Member, Medical Record Present Illness HPI This is a 67-year-old male with a history of COPD, CAD, hypertension. He presents with chief complaint of shortness of breath and chest pain. Onset for last 2 days. Increasing cough. Increasing oxygenation need. Reading treatment not helping much. No nausea no vomiting. Similar presentation in the past. He said that he is compliant with his medication. Worse with lying flat. Worse with exertion. Better with breathing treatment. Still smoking. Allergies: Coded Allergies: EGG (Verified Allergy, Unknown, 09/22/15) MEPERIDINE (Verified Allergy, Unknown, 12/21/10) MORPHINE (Verified Allergy, Unknown, Shortness of Breath, 01/24/14) itching,shortness of breath,dyspnea NITROGLYCERIN (Verified Allergy, Unknown, hives, 02/18/17) Patient History Past Medical History: see triage record, old chart reviewed, HTN, COPD Past Surgical History: other Pertinent Family History: none Social History: Reports: smoking Immunizations: other Reviewed Nursing Documentation: PMH: Agreed; PSxH: Agreed Nursing Documentation-PMH Hx Cardiac Problems: Yes - ND Hx Hypertension: Yes Hx Pacemaker: No Hx Asthma: No Hx COPD: Yes Hx Diabetes: No Hx Cancer: No Hx Dialysis: No - kidney problems Hx Neurological Problems: Yes Hx Cerebrovascular Accident: No Hx Transient Ischemic Attacks: No Hx Alzheimer's Disease: No Hx Encephalitis: No Hx Seizures: Yes Hx Epilepsy: No Hx Multiple Sclerosis: No Hx Cerebral Palsy: No Hx Amyotrophic Lat Sclerosis: No Hx Guillian-Lakota Syndrome: No Hx Paralysis: No Hx Peripheral Neuropathy: No Hx Spinal Cord Injury: No Hx Head Trauma: No Hx Traumatic Brain Injury: No Hx Memory Loss: No Hx Concentration Difficulty: No Hx Speech Problem: No Hx Tremors: Yes Hx Vertigo: No Hx Dizziness: No Hx Syncope: Yes Hx Headaches: Yes Hx Aphasia: No Hx Dysphasia: Yes Hx Numbness: No Hx Weakness: Yes Hx Fatigue: No Hx Neurologic Surgery: No Hx Brain Shunt: No Review of Systems Eye: Denies: eye pain, blurred vision ENT: Denies: ear pain, nose congestion, throat swelling Respiratory: Reports: cough, shortness of breath, wheezing Cardiovascular: Reports: chest pain; Denies: palpitations Gastrointestinal: Denies: abdominal pain, diarrhea, nausea, vomiting Musculoskeletal: Denies: back pain, joint pain Skin: Denies: rash Neurological: Denies: headache, numbness Endocrine: Denies: increased thirst, increased urine Hematologic/Lymphatic: Denies: easy bruising All Other Systems: negative except mentioned in HPI Physical Exam Vital Signs Date Time Temp Pulse Resp B/P (MAP) Pulse Ox O2 Delivery O2 Flow Rate FiO2 03/22/18 05:36 98.1 108 22 205/105 100 Room Air 98.1 vitals with high blood pressure Sp02 EP Interpretation: reviewed, normal General Appearance: alert, mild distress, thin, Chronically Ill Head: normocephalic, atraumatic Eyes: bilateral eye PERRL, bilateral eye EOMI ENT: hearing grossly normal, normal pharynx Neck: full range of motion, supple, no meningismus Respiratory: chest non-tender, respiratory distress, decreased breath sounds, accessory muscle use, wheezing Cardiovascular #1: regular rate, rhythm, no murmur Gastrointestinal: normal bowel sounds, non tender, no mass, no organomegaly, no bruit, non-distended Musculoskeletal: back normal, gait/station normal, normal range of motion Neurologic: alert, oriented x3 Psychiatric: mood/affect normal Skin: warm/dry Medical Decision Making Diagnostic Impression: Primary Impression: COPD exacerbation Additional Impression: HTN (hypertension) Qualified Codes: I10 - Essential (primary) hypertension ER Course Patient presents with COPD exacerbation. Blood pressures very high. Labs sent. Chest x-ray consistent with COPD. Patient will be admitted. I contacted Dr. Magana for admission. EKG Diagnostic Results Rate: normal Rhythm: NSR ST Segments: no acute changes Rhythm Strip Diag. Results Rhythm Strip Time: 06:24 EP Interpretation: yes Rate: 99 Rhythm: NSR, no PVC's, no ectopy Chest X-Ray Diagnostic Results Chest X-Ray Diagnostic Results : Chest X-Ray Ordered: Yes # of Views/Limited/Complete: 1 View Indication: Shortness of Breath EP Interpretation: Yes Interpretation: no consolidation, no effusion, no pneumothorax, no acute cardiopulmonary disease Impression: No acute disease - copd Electronically Signed by: Juventino Sweeney MD Last Vital Signs Date Time Temp Pulse Resp B/P (MAP) Pulse Ox O2 Delivery O2 Flow Rate FiO2 03/22/18 05:36 98.1 108 22 205/105 100 Room Air 98.1 Status: improved Disposition: ADMITTED INPATIENT Condition: Serious JUVENTINO SWEENEY M.D. Mar 22, 2018 05:43
[2018-03-22 05:45] VITALS: BP 205/105
[2018-03-22] MEDS ORDERED: Solu-MEDROL 125mg Inj IVP ONE (05:45)
[2018-03-22] MEDS ORDERED: Albuterol ud Inhalation HHN ONE (05:45)
[2018-03-22] MEDS ORDERED: Ipratropium 0.02% Inh Soln 2.5ml UD HHN ONE (05:45)
[2018-03-22] MEDS ORDERED: Norco 5mg/325mg tab ORAL ONE (06:30)
[2018-03-22 06:31] LABS: BASOPHILS % (AUTO) 1.8 % (0.0-2.0); EOSINOPHILS % (AUTO) 2.1 % (0.0-3.0); HEMATOCRIT 47.3 % (42.0-52.0); HEMOGLOBIN 15.1 G/DL (14.2-18.0); LYMPHOCYTES % (AUTO) 26.8 % (20.0-45.0); MEAN CORPUSCULAR VOLUME 83 FL (80-99); MONOCYTES % (AUTO) 6.3 % (1.0-10.0); PLATELET COUNT 265 K/UL (150-450); RED BLOOD COUNT 5.71 M/UL (4.70-6.10); WHITE BLOOD COUNT 6.4 K/UL (4.8-10.8)
[2018-03-22] MEDS ORDERED: HYDROmorphone 1 MG in NS 55 ML IV ONE (06:45)
[2018-03-22 06:47] LABS: ANION GAP 9 mmol/L (5-15); BLOOD UREA NITROGEN 23 mg/dL (7-18); CALCIUM 9.2 MG/DL (8.5-10.1); CARBON DIOXIDE 24 MMOL/L (21-32); CHLORIDE 103 MMOL/L (98-107); CREATININE 1.3 MG/DL (0.55-1.30); POTASSIUM 5.5 MMOL/L (3.5-5.1); SODIUM 136 MMOL/L (136-145)
[2018-03-22] MEDS ORDERED: HYDROmorphone 1mg/NS 50ml IVPB 50 ML ONE (06:55)
[2018-03-22 07:00] LABS: ALANINE AMINOTRANSFERASE 19 U/L (12-78); ALBUMIN 3.4 G/DL (3.4-5.0); ALBUMIN/GLOBULIN RATIO 0.8 (1.0-2.7); ALKALINE PHOSPHATASE 112 U/L (46-116); ASPARTATE AMINO TRANSFERASE 28 U/L (15-37); BILIRUBIN,TOTAL 0.5 MG/DL (0.2-1.0); CKMB 1.7 NG/ML (0.0-3.6); CREATINE KINASE 241 U/L (26-308)
[2018-03-22 07:11] LABS: APPEARANCE,URINE CLEAR; COLOR,URINE PALE YELLOW; PH,URINE 8 (4.5-8.0)
[2018-03-22 07:12] LABS: BILIRUBIN, URINE NEGATIVE (NEGATIVE); GLUCOSE, URINE (UA) NEGATIVE (NEGATIVE); KETONES,URINE NEGATIVE (NEGATIVE); LEUKOCYTE ESTERASE ,URINE NEGATIVE (NEGATIVE); NITRITE,URINE NEGATIVE (NEGATIVE); PROTEIN,URINE NEGATIVE (NEGATIVE); UROBILINOGEN,URINE NORMAL MG/DL (0.0-1.0)
[2018-03-22 07:23] VITALS: BP 164/88
[2018-03-22 08:30] VITALS: BP 146/86
[2018-03-22] MEDS ORDERED: LORazepam Inj 2mg/ml 1ml IV PRN (08:30)
[2018-03-22] MEDS ORDERED: Promethazine/Codeine 5ml UD ORAL PRN (08:30)
[2018-03-22] MEDS ORDERED: Ketorolac 30mg Inj IV PRN (08:30)
[2018-03-22] MEDS ORDERED: Theophylline ER 100mg ORAL SCH ×2 (09:00→10:00)
[2018-03-22] MEDS ORDERED: Sodium Polystyrene Sulfonate 15gm Powder ORAL SCH (09:00)
[2018-03-22] MEDS ORDERED: Heparin 5000 units/ml inj SUBQ SCH (10:00)
[2018-03-22] MEDS: Piperacillin/Tazobactam 3.375 GM in D5W 110 ML IVPB SCH ×2 (10:21→17:16)
--- NOTE | 2018-03-22 10:52 | Diagnostic Imaging Report ---
Indication: Dyspnea Comparison: 09/01/2017 A single view chest radiograph was obtained. Findings: Lungs appear slightly hyperexpanded. Sternotomy noted. Heart size is normal. Bones are osteopenic. There is an old fracture of the left humerus. IMPRESSION: No acute disease
[2018-03-22] MEDS: Solu-MEDROL 125mg Inj IV SCH ×3 (11:34→23:19)
[2018-03-22 12:00] VITALS: BP 124/75
[2018-03-22] MEDS ORDERED: Piperacillin/Tazobactam 2.25 GM in D5W 55 ML IV SCH (14:00)
[2018-03-22 16:00] VITALS: BP 116/57
--- NOTE | 2018-03-22 16:39 | History and Physical ---
History of Present Illness General Date patient seen: Mar 22, 2018 Reason for Hospitalization: Dyspnea/Respdistress Present Illness HPI 67-year-old male with a history of COPD, CAD, hypertension, bed bound, chronic ulcers of feet, presented to ER with chief complaint of shortness of breath and chest pain. Onset for last 2 days with increasing cough. His Breathing treatment not helping much. No nausea no vomiting. He said that he is compliant with his medication. Pt was diagnosed to have acute exacerbation of his COPD and admitted to telemetry. Allergies: Coded Allergies: EGG (Verified Allergy, Unknown, 09/22/15) MEPERIDINE (Verified Allergy, Unknown, 12/21/10) MORPHINE (Verified Allergy, Unknown, Shortness of Breath, 01/24/14) itching,shortness of breath,dyspnea NITROGLYCERIN (Verified Allergy, Unknown, hives, 02/18/17) Medication History Scheduled Amlodipine Besylate* (Amlodipine Besylate*), 10 MG ORAL DAILY, (Reported) Clopidogrel Bisulfate* (Plavix*), 75 MG ORAL DAILY, (Reported) Hydromorphone Hcl (Dilaudid), 2 MG PO EVERY 4 HOURS Levetiracetam (Keppra), 500 MG ORAL EVERY 12 HOURS, (Reported) Ranitidine Hcl* (Zantac*), 150 MG ORAL Q12HR Theophylline (Theodur*), 100 MG ORAL EVERY 12 HOURS Scheduled PRN Albuterol Sulfate (Ventolin Hfa), 1 PUFF INH EVERY 6 HOURS PRN Docusate Sodium* (Colace*), 100 MG ORAL DAILY PRN for Constipation, (Reported) Ondansetron Hcl* (Zofran*), 8 MG ORAL Q6H PRN for Nausea & Vomiting, (Reported) Patient History Healthcare decision maker Resuscitation status Full Code Advanced Directive on File Past Medical/Surgical History Past Medical/Surgical History: (1) Hx of CABG (2) HTN (hypertension) (3) Severe malnutrition (4) Emphysema lung (5) DM (diabetes mellitus) Review of Systems Constitutional: Reports: malaise, weakness Respiratory: Reports: cough, shortness of breath Musculoskeletal: Reports: joint pain Physical Exam General Appearance: cachetic Lines, tubes and drains: peripheral HEENT: normocephalic Respiratory/Chest: chest wall non-tender, rhonchi - left, rhonchi - right Breasts: no masses Cardiovascular/Chest: normal peripheral pulses, normal rate, regular rhythm Abdomen: normal bowel sounds, soft Genitourinary/Rectal: normal genital exam Last 24 Hour Vital Signs Date Time Temp Pulse Resp B/P (MAP) Pulse Ox O2 Delivery O2 Flow Rate FiO2 03/22/18 12:00 73 03/22/18 12:00 98.0 75 20 124/75 99 Nasal Cannula 2.0 98.0 03/22/18 09:48 90 146/86 03/22/18 08:30 97.2 90 20 146/86 100 Nasal Cannula 2.0 97.2 03/22/18 08:24 78 03/22/18 08:05 98.1 91 20 164/88 100 Nasal Cannula 2.0 28 208.6 03/22/18 07:33 98.1 03/22/18 07:23 91 20 164/88 100 Nasal Cannula 2.0 03/22/18 07:03 98.1 03/22/18 06:51 190/80 03/22/18 06:37 98.1 03/22/18 06:31 101 24 100 Nasal Cannula 2.0 28 03/22/18 06:25 197/100 03/22/18 06:21 100 17 Nasal Cannula 2.0 28 03/22/18 06:21 100 17 100 Nasal Cannula 2.0 28 03/22/18 05:45 108 22 Room Air 03/22/18 05:45 98.1 22 205/105 100 Room Air 98.1 03/22/18 05:36 98.1 108 22 205/105 100 Room Air 98.1 Intake and Output 03/21/18 03/22/18 19:00 07:00 Intake Total 0 ml Balance 0 ml Intake Oral 0 ml Laboratory Tests Test 03/22/18 06:00 03/22/18 06:20 White Blood Count 6.4 K/UL (4.8-10.8) Red Blood Count 5.71 M/UL (4.70-6.10) Hemoglobin 15.1 G/DL (14.2-18.0) Hematocrit 47.3 % (42.0-52.0) Mean Corpuscular Volume 83 FL (80-99) Mean Corpuscular Hemoglobin 26.4 PG (27.0-31.0) L Mean Corpuscular Hemoglobin Concent 31.8 G/DL (32.0-36.0) L Red Cell Distribution Width 17.0 % (11.6-14.8) H Platelet Count 265 K/UL (150-450) Mean Platelet Volume 6.7 FL (6.5-10.1) Neutrophils (%) (Auto) 63.0 % (45.0-75.0) Lymphocytes (%) (Auto) 26.8 % (20.0-45.0) Monocytes (%) (Auto) 6.3 % (1.0-10.0) Eosinophils (%) (Auto) 2.1 % (0.0-3.0) Basophils (%) (Auto) 1.8 % (0.0-2.0) Sodium Level 136 MMOL/L (136-145) Potassium Level 5.5 MMOL/L (3.5-5.1) H Chloride Level 103 MMOL/L (98-107) Carbon Dioxide Level 24 MMOL/L (21-32) Anion Gap 9 mmol/L (5-15) Blood Urea Nitrogen 23 mg/dL (7-18) H Creatinine 1.3 MG/DL (0.55-1.30) Estimat Glomerular Filtration Rate > 60 mL/min (>60) Glucose Level 96 MG/DL (74-106) Calcium Level 9.2 MG/DL (8.5-10.1) Total Bilirubin 0.5 MG/DL (0.2-1.0) Aspartate Amino Transf (AST/SGOT) 28 U/L (15-37) Alanine Aminotransferase (ALT/SGPT) 19 U/L (12-78) Alkaline Phosphatase 112 U/L (46-116) Total Creatine Kinase 241 U/L (26-308) Creatine Kinase MB 1.7 NG/ML (0.0-3.6) Creatine Kinase MB Relative Index 0.7 Troponin I 0.167 ng/mL (0.000-0.056) Total Protein 7.7 G/DL (6.4-8.2) Albumin 3.4 G/DL (3.4-5.0) Globulin 4.3 g/dL Albumin/Globulin Ratio 0.8 (1.0-2.7) L Urine Color Pale yellow Urine Appearance Clear Urine pH 8 (4.5-8.0) Urine Specific [place] 1.010 (1.005-1.035) Urine Protein Negative (NEGATIVE) Urine Glucose (UA) Negative (NEGATIVE) Urine Ketones Negative (NEGATIVE) Urine Occult Blood Negative (NEGATIVE) Urine Nitrite Negative (NEGATIVE) Urine Bilirubin Negative (NEGATIVE) Urine Urobilinogen Normal MG/DL (0.0-1.0) Urine Leukocyte Esterase Negative (NEGATIVE) Height (Feet): 6 Height (Inches): 0.00 Weight (Pounds): 140 Medications Current Medications Medications (Trade) Dose Ordered Sig/Aminata Route PRN Reason Start Time Stop Time Status Last Admin Dose Admin Albuterol/ Ipratropium (Albuterol/ Ipratropium) 3 ml Q4H PRN HHN dyspnea 03/22/18 08:30 03/27/18 08:29 Amlodipine Besylate (Norvasc) 10 mg DAILY ORAL 03/23/18 09:00 04/22/18 08:59 Dextrose (Dextrose 50%) 25 ml STAT PRN IV Hypoglycemia 03/22/18 08:30 04/21/18 08:29 Dextrose (Dextrose 50%) 50 ml STAT PRN IV Hypoglycemia 03/22/18 08:45 04/21/18 08:44 Heparin Sodium (Porcine) (Heparin 5000 units/ml) 5,000 units EVERY 12 HOURS SUBQ 03/22/18 21:00 04/21/18 20:59 Hydromorphone HCl (Dilaudid) 2 mg Q3H PRN IVP Severe Pain (7-10) 03/22/18 10:15 03/29/18 10:14 03/22/18 13:38 Ketorolac Tromethamine (Toradol 30mg) 30 mg Q8H PRN IV moderate pain 4-6 03/22/18 08:30 03/27/18 08:29 Levetiracetam (Keppra) 500 mg EVERY 12 HOURS ORAL 03/22/18 21:00 04/21/18 20:59 Lorazepam (Ativan 2mg/ml 1ml) 0.5 mg Q4H PRN IV For Anxiety 03/22/18 08:30 03/29/18 08:29 Methylprednisolone Sodium Succinate (Solu-MEDROL) 60 mg EVERY 6 HOURS IV 03/22/18 12:00 04/21/18 11:59 03/22/18 11:34 Ondansetron HCl (Zofran) 4 mg Q6H PRN IVP Nausea & Vomiting 03/22/18 08:30 04/21/18 08:29 Piperacillin Sod/ Tazobactam Sod 3.375 gm/Dextrose 110 ml @ 27.5 mls/hr Q8HR@0200,1000,1800 IVPB 03/22/18 10:00 03/29/18 09:59 03/22/18 10:21 Promethazine HCl/ Codeine (Phenergan with Codeine) 5 ml Q6H PRN ORAL cough 03/22/18 08:30 04/21/18 08:29 Temazepam (Restoril) 15 mg HSPRN PRN ORAL Insomnia 03/22/18 08:30 03/29/18 08:29 Theophylline (Wilfrido-Dur) 100 mg EVERY 12 HOURS ORAL 03/22/18 21:00 04/21/18 20:59 Assessment/Plan Problem List: (1) Acute bronchitis ICD Codes: J20.9 - Acute bronchitis SNOMED: 83455573 (2) COPD exacerbation ICD Codes: J44.1 - Obstructive chronic bronchitis with exacerbation SNOMED: 281235988 (3) Atypical chest pain ICD Codes: R07.89 - Other chest pain SNOMED: 118554041 (4) Diabetic foot ulcer ICD Codes: E11.621 - Type 2 diabetes mellitus with foot ulcer; L97.509 - Non- pressure chronic ulcer of other part of unspecified foot with unspecified severity SNOMED: 93149568, 159190107 (5) Emphysema lung ICD Codes: J43.9 - Emphysema, unspecified SNOMED: 56085174 (6) Severe malnutrition ICD Codes: E43 - Unspecified severe protein-calorie malnutrition SNOMED: 32664127 (7) DM (diabetes mellitus) ICD Codes: E11.9 - Diabetes mellitus SNOMED: 26136271 Assessment/Plan check sputum respiratory treatment iv steroids and antibiotics titrate fio2 to sat of 92 wound care sliding scale Jessie Magana MD Mar 22, 2018 16:39
--- NOTE | 2018-03-22 17:05 | Cardiology Report ---
APPROVED REPORT EKG Measurement Heart [id number] [place] [id number] Normal sinus rhythm Possible Left atrial enlargement Anterior infarct, age undetermined Abnormal ECG
[2018-03-22 20:00] VITALS: BP 121/65
[2018-03-22] MEDS: Theophylline ER 100mg ORAL SCH (20:12)
[2018-03-22] MEDS: Heparin 5000 units/ml inj SUBQ SCH (20:18)
[2018-03-23] VITALS (8 sets, daily range): BP systolic 101–133; BP diastolic 55–69
[2018-03-23] MEDS: Piperacillin/Tazobactam 3.375 GM in D5W 110 ML IVPB SCH ×2 (01:04→11:53)
[2018-03-23] MEDS: Solu-MEDROL 125mg Inj IV SCH ×2 (05:06→21:05)
[2018-03-23] MEDS: Albuterol/Ipratropium 3ml neb HHN PRN ×2 (07:40→14:24)
[2018-03-23] MEDS: Theophylline ER 100mg ORAL SCH ×2 (08:52→21:05)
[2018-03-23] MEDS: Heparin 5000 units/ml inj SUBQ SCH ×2 (08:53→21:07)
--- NOTE | 2018-03-23 11:41 | Pulmonology Progress Note ---
Assessment/Plan Problems: (1) Acute bronchitis (2) COPD exacerbation (3) Atypical chest pain (4) Diabetic foot ulcer (5) Emphysema lung (6) Severe malnutrition (7) DM (diabetes mellitus) Assessment/Plan respiratory treatment iv abx check cultures check troponin echo cardio to see Podiatry Subjective ROS Limited/Unobtainable: No Constitutional: Reports: no symptoms HEENT: Repors: no symptoms Respiratory: Reports: no symptoms Allergies: Coded Allergies: EGG (Verified Allergy, Unknown, 09/22/15) MEPERIDINE (Verified Allergy, Unknown, 12/21/10) MORPHINE (Verified Allergy, Unknown, Shortness of Breath, 01/24/14) itching,shortness of breath,dyspnea NITROGLYCERIN (Verified Allergy, Unknown, hives, 02/18/17) Objective Last 24 Hour Vital Signs Date Time Temp Pulse Resp B/P (MAP) Pulse Ox O2 Delivery O2 Flow Rate FiO2 03/23/18 08:52 98.0 03/23/18 08:52 99 133/61 03/23/18 08:00 98.0 99 20 133/61 98 Room Air 98.0 03/23/18 07:50 90 18 100 Room Air 21 03/23/18 07:40 88 20 99 Room Air 21 03/23/18 07:40 88 18 Room Air 03/23/18 06:03 98.1 03/23/18 05:33 98.1 03/23/18 05:21 126/69 03/23/18 04:00 98.1 70 22 124/61 98 Room Air 98.1 03/23/18 04:00 70 03/23/18 02:32 82 124/65 03/23/18 02:32 98.2 03/23/18 00:00 87 03/23/18 00:00 98.2 81 20 119/64 97 Room Air 98.2 03/22/18 23:24 98.0 03/22/18 20:23 98.0 03/22/18 20:03 80 18 Room Air 03/22/18 20:00 97.3 82 18 121/65 96 Room Air 97.3 03/22/18 20:00 92 03/22/18 16:00 92 03/22/18 16:00 98.0 90 20 116/57 97 Room Air 98.0 03/22/18 12:00 73 03/22/18 12:00 98.0 75 20 124/75 99 Nasal Cannula 2.0 98.0 Intake and Output 03/22/18 03/23/18 19:00 07:00 Intake Total 997.7 ml 350.0 ml Balance 997.7 ml 350.0 ml Intake Oral 840 ml 240 ml IV Total 157.7 ml 110.0 ml # Voids 1 General Appearance: cachetic HEENT: normocephalic, atraumatic Respiratory/Chest: chest wall non-tender, crackles/rales Cardiovascular: normal peripheral pulses, normal rate Abdomen: normal bowel sounds, soft, non tender Genitourinary: normal external genitalia Extremities: no clubbing Skin: lesions 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 Lymphatic: no neck adenopathy Laboratory Tests 03/22/18 19:05: Troponin I 0.144H 03/23/18 09:50: Troponin I 0.080H Current Medications Medications (Trade) Dose Ordered Sig/Aminata Route PRN Reason Start Time Stop Time Status Last Admin Dose Admin Albuterol/ Ipratropium (Albuterol/ Ipratropium) 3 ml Q4H PRN HHN dyspnea 03/22/18 08:30 03/27/18 08:29 03/23/18 07:40 Amlodipine Besylate (Norvasc) 10 mg DAILY ORAL 03/23/18 09:00 04/22/18 08:59 03/23/18 08:52 Dextrose (Dextrose 50%) 25 ml STAT PRN IV Hypoglycemia 03/22/18 08:30 04/21/18 08:29 Dextrose (Dextrose 50%) 50 ml STAT PRN IV Hypoglycemia 03/22/18 08:45 04/21/18 08:44 Heparin Sodium (Porcine) (Heparin 5000 units/ml) 5,000 units EVERY 12 HOURS SUBQ 03/22/18 21:00 04/21/18 20:59 03/23/18 08:53 Hydromorphone HCl (Dilaudid) 3 mg Q3H PRN IVP Severe Pain (7-10) 03/22/18 18:00 03/29/18 17:59 03/23/18 08:52 Ketorolac Tromethamine (Toradol 30mg) 30 mg Q8H PRN IV moderate pain 4-6 03/22/18 08:30 03/27/18 08:29 Levetiracetam (Keppra) 500 mg EVERY 12 HOURS ORAL 03/22/18 21:00 04/21/18 20:59 03/23/18 08:52 Lorazepam (Ativan 2mg/ml 1ml) 0.5 mg Q4H PRN IV For Anxiety 03/22/18 08:30 03/29/18 08:29 Methylprednisolone Sodium Succinate (Solu-MEDROL) 60 mg EVERY 6 HOURS IV 03/22/18 12:00 04/21/18 11:59 03/23/18 05:06 Ondansetron HCl (Zofran) 4 mg Q6H PRN IVP Nausea & Vomiting 03/22/18 08:30 04/21/18 08:29 Piperacillin Sod/ Tazobactam Sod 3.375 gm/Dextrose 110 ml @ 27.5 mls/hr Q8HR@0200,1000,1800 IVPB 03/22/18 10:00 03/29/18 09:59 03/23/18 01:04 Promethazine HCl/ Codeine (Phenergan with Codeine) 5 ml Q6H PRN ORAL cough 03/22/18 08:30 04/21/18 08:29 03/22/18 18:28 Temazepam (Restoril) 15 mg HSPRN PRN ORAL Insomnia 03/22/18 08:30 03/29/18 08:29 Theophylline (Wilfrido-Dur) 100 mg EVERY 12 HOURS ORAL 03/22/18 21:00 04/21/18 20:59 03/23/18 08:52 Jessie Magana MD Mar 23, 2018 11:41
--- NOTE | 2018-03-23 16:15 | Consultation ---
DATE OF CONSULTATION: 03/22/2018 HISTORY OF PRESENT ILLNESS: This is a 67-year-old male with history of COPD, CAD, hypertension, he is bedbound. He presented with depressive symptoms including anhedonia, worthlessness, decreased energy. No behavior issues. No suicidal or homicidal ideation. No psychotic or manic symptoms, has mild cognitive impairment. PAST PSYCHIATRIC HISTORY: He has a history of depression has been never been treated. PAST MEDICAL HISTORY: Significant for hypertension, severe malnutrition, emphysema, diabetic mellitus, CABG. ALLERGIES: EGG, meperidine, morphine, nitroglycerin. SUBSTANCE ABUSE HISTORY: No known history of illicit drug use or alcohol. MENTAL STATUS EXAMINATION: The patient is alert and oriented times self, place, and situation. Mood is depressed. Affect is constricted. Congruent with mood. Thought process is concrete. Thought content, no suicidal or homicidal ideations. ASSESSMENT: AXIS I: Major depressive disorder. AXIS II: Deferred. AXIS III: As above. AXIS IV: Low. AXIS V: 20. PLAN: 1. We will start the patient on low-dose of . 2. Provide the patient with supportive therapy and reality orientation. Rachael Buckley M.D. DR: Gene JOB#: [id number] CC:
--- NOTE | 2018-03-23 16:15 | Progress Note ---
DATE: 03/23/2018 SUBJECTIVE: The patient is the same. No changes in his clinical presentation. He is malnourished. MENTAL STATUS EXAMINATION: The patient is alert and oriented times self, place, and situation. Mood is dysphoric. Affect is constricted. Congruent with mood. Thought process is concrete. Thought content, no suicidal or homicidal ideations. ASSESSMENT: Depression. PLAN: We will continue the current medication. Provide the patient with supportive therapy and reality orientation. Rachael Buckley M.D. DR: Gene JOB#: [id number] CC:
--- NOTE | 2018-03-23 16:49 | Consultation ---
History of Present Illness General Date patient seen: Mar 23, 2018 Chief Complaint: Dyspnea/Respdistress Present Illness HPI 67 y/o M with hx of HTN, severe malnutrition, MDD, tobacco abuse, seizure disorder, emphysema, DM2, CAD s/p CABG, COPD, bedbound presents to ED on 03/22 with 2 days of SOB and chest pain, worsening cough and increasing oxygenation need. [place] n/v Also being seen by psych for depressive symptoms. Allergies: Coded Allergies: EGG (Verified Allergy, Unknown, 09/22/15) MEPERIDINE (Verified Allergy, Unknown, 12/21/10) MORPHINE (Verified Allergy, Unknown, Shortness of Breath, 01/24/14) itching,shortness of breath,dyspnea NITROGLYCERIN (Verified Allergy, Unknown, hives, 02/18/17) Medication History Scheduled Amlodipine Besylate* (Amlodipine Besylate*), 10 MG ORAL DAILY, (Reported) Clopidogrel Bisulfate* (Plavix*), 75 MG ORAL DAILY, (Reported) Hydromorphone Hcl (Dilaudid), 2 MG PO EVERY 4 HOURS Levetiracetam (Keppra), 500 MG ORAL EVERY 12 HOURS, (Reported) Ranitidine Hcl* (Zantac*), 150 MG ORAL Q12HR Theophylline (Theodur*), 100 MG ORAL EVERY 12 HOURS Scheduled PRN Albuterol Sulfate (Ventolin Hfa), 1 PUFF INH EVERY 6 HOURS PRN Docusate Sodium* (Colace*), 100 MG ORAL DAILY PRN for Constipation, (Reported) Ondansetron Hcl* (Zofran*), 8 MG ORAL Q6H PRN for Nausea & Vomiting, (Reported) Patient History Healthcare decision maker Resuscitation status Full Code Advanced Directive on File Patient History Narrative Pmhx: as above Shx: reviewed Fhx: non contributory Review of Systems All Other Systems: negative except mentioned in HPI Physical Exam Physical Exam Narrative General Appearance: cachetic Lines, tubes and drains: peripheral HEENT: normocephalic Respiratory/Chest: chest wall non-tender, rhonchi - left, rhonchi - right Breasts: no masses Cardiovascular/Chest: normal peripheral pulses, normal rate, regular rhythm Abdomen: normal bowel sounds, soft Last 24 Hour Vital Signs Date Time Temp Pulse Resp B/P (MAP) Pulse Ox O2 Delivery O2 Flow Rate FiO2 03/23/18 16:10 98.0 03/23/18 16:00 97.2 102 20 117/55 94 Room Air 97.2 03/23/18 15:37 98.0 03/23/18 14:34 99 16 98 Room Air 21 03/23/18 14:24 98 18 95 Room Air 21 03/23/18 12:12 98.0 03/23/18 12:00 92 03/23/18 12:00 98.2 87 20 123/67 98 Room Air 98.2 03/23/18 08:52 98.0 03/23/18 08:52 99 133/61 03/23/18 08:00 85 03/23/18 08:00 98.0 99 20 133/61 98 Room Air 98.0 03/23/18 07:50 90 18 100 Room Air 21 03/23/18 07:40 88 20 99 Room Air 21 03/23/18 07:40 88 18 Room Air 03/23/18 05:33 98.1 03/23/18 05:21 126/69 03/23/18 04:00 98.1 70 22 124/61 98 Room Air 98.1 03/23/18 04:00 70 03/23/18 02:32 82 124/65 03/23/18 02:32 98.2 03/23/18 00:00 87 03/23/18 00:00 98.2 81 20 119/64 97 Room Air 98.2 03/22/18 23:24 98.0 03/22/18 20:23 98.0 03/22/18 20:03 80 18 Room Air 03/22/18 20:00 97.3 82 18 121/65 96 Room Air 97.3 03/22/18 20:00 92 Intake and Output 03/22/18 03/23/18 19:00 07:00 Intake Total 997.7 ml 350.0 ml Balance 997.7 ml 350.0 ml Intake Oral 840 ml 240 ml IV Total 157.7 ml 110.0 ml # Voids 1 Laboratory Tests Test 03/22/18 19:05 03/23/18 09:50 Troponin I 0.144 ng/mL (0.000-0.056) 0.080 ng/mL (0.000-0.056) Height (Feet): 6 Height (Inches): 0.00 Weight (Pounds): 140 Medications Current Medications Medications (Trade) Dose Ordered Sig/Aminata Route PRN Reason Start Time Stop Time Status Last Admin Dose Admin Albuterol/ Ipratropium (Albuterol/ Ipratropium) 3 ml Q4H PRN HHN dyspnea 03/22/18 08:30 03/27/18 08:29 03/23/18 14:24 Amlodipine Besylate (Norvasc) 10 mg DAILY ORAL 03/23/18 09:00 04/22/18 08:59 03/23/18 08:52 Dextrose (Dextrose 50%) 25 ml STAT PRN IV Hypoglycemia 03/22/18 08:30 04/21/18 08:29 Dextrose (Dextrose 50%) 50 ml STAT PRN IV Hypoglycemia 03/22/18 08:45 04/21/18 08:44 Heparin Sodium (Porcine) (Heparin 5000 units/ml) 5,000 units EVERY 12 HOURS SUBQ 03/22/18 21:00 04/21/18 20:59 03/23/18 08:53 Hydromorphone HCl (Dilaudid) 3 mg Q3H PRN IVP Severe Pain (7-10) 03/22/18 18:00 03/29/18 17:59 03/23/18 15:37 Levetiracetam (Keppra) 500 mg EVERY 12 HOURS ORAL 03/22/18 21:00 04/21/18 20:59 03/23/18 08:52 Lorazepam (Ativan 2mg/ml 1ml) 0.5 mg Q4H PRN IV For Anxiety 03/22/18 08:30 03/29/18 08:29 Methylprednisolone Sodium Succinate (Solu-MEDROL) 60 mg EVERY 12 HOURS IV 03/23/18 21:00 04/21/18 11:59 Ondansetron HCl (Zofran) 4 mg Q6H PRN IVP Nausea & Vomiting 03/22/18 08:30 04/21/18 08:29 Piperacillin Sod/ Tazobactam Sod 3.375 gm/Dextrose 110 ml @ 27.5 mls/hr Q8HR@0200,1000,1800 IVPB 03/22/18 10:00 03/29/18 09:59 03/23/18 11:53 Promethazine HCl/ Codeine (Phenergan with Codeine) 5 ml Q6H PRN ORAL cough 03/22/18 08:30 04/21/18 08:29 03/22/18 18:28 Theophylline (Wilfrido-Dur) 100 mg EVERY 12 HOURS ORAL 03/22/18 21:00 04/21/18 20:59 03/23/18 08:52 Zolpidem Tartrate (Ambien) 5 mg HSPRN PRN ORAL Insomnia 03/23/18 21:00 03/30/18 20:59 Assessment/Plan Assessment/Plan Abx: Zosyn 03/22- Assessment: COPD exacerbation -CXR: no acute process Afebrile, no leukocytosis Troponinemia, improving- ?demand ischemia HTN severe malnutrition MDD tobacco abuse seizure disorder emphysema DM2 CAD s/p CABG COPD bedbound Plan: -Switch Zosyn #2/5 to PO Levaquin for COPD exacerbation -monitor Qtc -influenza sc -f/u cx -Monitor CBC/BMP, temperatures Thank you for this consultation. Will continue to follow along with you. Discussed with Jessica Bradley M.D. Mar 23, 2018 16:49
[2018-03-23] MEDS ORDERED: Levofloxacin 500mg tab ORAL SCH (18:00)
--- NOTE | 2018-03-23 19:43 | Cardiology Progress Note ---
Assessment/Plan Assessment/Plan trop not reach thereshodl for ami set by manufacturere wrse with position and left arm movment and with touch area ekg trop echo in am [id number] Objective Last 24 Hour Vital Signs Date Time Temp Pulse Resp B/P (MAP) Pulse Ox O2 Delivery O2 Flow Rate FiO2 03/23/18 19:28 98.0 03/23/18 18:29 98.0 03/23/18 16:00 102 03/23/18 16:00 97.2 102 20 117/55 94 Room Air 97.2 03/23/18 15:37 98.0 03/23/18 14:34 99 16 98 Room Air 21 03/23/18 14:24 98 18 95 Room Air 21 03/23/18 12:12 98.0 03/23/18 12:00 92 03/23/18 12:00 98.2 87 20 123/67 98 Room Air 98.2 03/23/18 08:52 98.0 03/23/18 08:52 99 133/61 03/23/18 08:00 85 03/23/18 08:00 98.0 99 20 133/61 98 Room Air 98.0 03/23/18 07:50 90 18 100 Room Air 21 03/23/18 07:40 88 20 99 Room Air 21 03/23/18 07:40 88 18 Room Air 03/23/18 05:33 98.1 03/23/18 05:21 126/69 03/23/18 04:00 98.1 70 22 124/61 98 Room Air 98.1 03/23/18 04:00 70 03/23/18 02:32 82 124/65 03/23/18 02:32 98.2 03/23/18 00:00 87 03/23/18 00:00 98.2 81 20 119/64 97 Room Air 98.2 03/22/18 23:24 98.0 03/22/18 20:23 98.0 03/22/18 20:03 80 18 Room Air 03/22/18 20:00 97.3 82 18 121/65 96 Room Air 97.3 03/22/18 20:00 92 Intake and Output 03/22/18 03/23/18 19:00 07:00 Intake Total 997.7 ml 350.0 ml Balance 997.7 ml 350.0 ml Intake Oral 840 ml 240 ml IV Total 157.7 ml 110.0 ml # Voids 1 Laboratory Tests Test 03/23/18 09:50 Troponin I 0.080 ng/mL (0.000-0.056) AGUSTO STARKEY Mar 23, 2018 19:43
[2018-03-23] MEDS ORDERED: Zolpidem 5mg tab ORAL PRN (21:00)
--- NOTE | 2018-03-23 21:15 | Consultation ---
DATE OF CONSULTATION: 03/23/2018 CARDIOLOGY CONSULTATION CONSULTING PHYSICIAN: Sergio Anaya M.D. REFERRING PHYSICIAN: Jessie Magana M.D. REASON FOR REFERRAL: Chest pain. HISTORY OF PRESENT ILLNESS: This is a middle-aged gentleman, who is known to me from multiple prior hospitalization. The patient presented to hospital because of leg pain and swelling on the right side as well as some chest pains as well as the shortness of breath. The leg swelling has been going on for about a week or so. He was unable to walk. He has started having some pain in the chest a little bit different than what he used to have previously. The pain usually starts in the upper chest and radiates upwards, at this time, they were radiating down to his right hip area that is constantly present for the past 3 or 4 days. The relieving and exacerbating factors are identified as sitting up making the pain better, but movement of the left arm makes the pain worse and lying down makes the pain worse as well. He uses two pillows for comfort. There is no questionable PND. He does have some dizziness and lightheadedness. He thinks, he must have passed out before he came into the hospital. At this time, he has palpitations as well. PAST MEDICAL HISTORY: Positive for history of multiple hospitalizations, chronic obstructive pulmonary disease exacerbation, hyperkalemia, renal failure, coronary artery disease, myocardial infarction, stents, peripheral vascular disease, seizure disorder, hypothyroidism, hyperlipidemia, chronic ankle pressure ulcers, and history of multiple hospitalizations because of chest pains. He has had a history of prior coronary artery bypass grafting, but he has had numerous episodes of chest pain that were felt to be non-cardiac in origin. He has chronic osteomyelitis of the lower extremities, seizures, diabetes mellitus, positive drug use, marijuana and opiates, peripheral vascular disease, hepatitis C, pulmonary hypertension, diastolic dysfunction, heart failure, pancytopenia, and renal insufficiency. Previously, he has a history of hip dislocation and relocation back in 2015. ALLERGIES: Dilaudid, nitroglycerin, and morphine. SOCIAL HISTORY: He quit smoking several years ago. Does not drink alcoholic beverages. He uses some cigars occasionally. REVIEW OF SYSTEMS: GASTROINTESTINAL: nausea, vomiting, and diarrhea. No bloody or black stools. GENITOURINARY: Negative. PULMONARY: Positive for cough. Sputum production is white. CONSTITUTIONAL: Negative. PHYSICAL EXAMINATION: GENERAL: Shows to be middle-aged gentleman. NECK: Supple. No jugular venous distention. LUNGS: Decreased breath sounds noted bilaterally. CARDIAC: Regular rate and rhythm. There is diastolic murmurs noted. No RV lifts, heaves, or thrills noted. ABDOMEN: Soft and nontender. Positive bowel sounds. Chest wall is tender to palpation. EXTREMITIES: There is edema in the lower extremities, not much of the left lower extremity. The right is somewhat edematous. NEUROLOGIC: He is awake, alert, and responsive. LABORATORY DATA: His white count is 6.4, hemoglobin 15.1, and platelet count 265,000. Sodium is 136, potassium 5.5, chloride 103, bicarb 23, BUN of 23, creatinine 1.3, and glucose of 96. His calcium is 9.2. AST and ALT are within normal limits. A troponin of 0.167, 0.144, and 0.080. Urinalysis apparently appears to be normal from yesterday. His electrocardiogram show normal sinus rhythm, normal QRS axis, and no ST or T wave abnormalities of significant degree. ASSESSMENT: 1. Atypical chest pain. 2. History of prior multiple admissions for chest pain. 3. Coronary artery disease status post coronary bypass grafting history. 4. Chronic obstructive pulmonary disease. 5. Reported nausea, vomiting, and diarrhea. 6. Cellulitis of the lower extremities. PLAN: Dr. Magana, this patient was seen in cardiac consultation. The patient's cardiac enzymes are minimally abnormal. They do not appear to reach the level of threshold level for diagnosis of acute myocardial infarction. Nevertheless, cardiac enzymes will be repeated and an echocardiogram will be ordered for evaluation of wall motion and compare it to prior EKGs. Electrocardiogram will also be repeated and cardiac enzymes will be repeated again tomorrow morning to see if there is any peak or naveed in this workup. His last myocardial perfusion imaging has been sometime ago back in 2014 and at that time, was normal. Given the fact that the pain seems to be getting worse with touching the area and with movement of the left arm and position makes me think that this pain is probably musculoskeletal in origin than anything else. He has had a chest x-ray that was performed. The chest x-ray shows no acute disease. Thank you for allowing me to participate in the care of this patient. Sergio Anaya M.D. DR: BRIAN JOB#: [id number] CC:
[2018-03-24] VITALS: BP 115/66
[2018-03-24 04:00] VITALS: BP 112/59
[2018-03-24 08:00] VITALS: BP 134/68
[2018-03-24] MEDS: Solu-MEDROL 125mg Inj IV SCH (08:24)
[2018-03-24] MEDS: Theophylline ER 100mg ORAL SCH ×2 (08:24→21:20)
[2018-03-24] MEDS: Heparin 5000 units/ml inj SUBQ SCH ×2 (08:33→21:21)
[2018-03-24 08:53] LABS: HEMATOCRIT 36.1 % (42.0-52.0); HEMOGLOBIN 11.7 G/DL (14.2-18.0); MEAN CORPUSCULAR VOLUME 83 FL (80-99); PLATELET COUNT 257 K/UL (150-450); RED BLOOD COUNT 4.38 M/UL (4.70-6.10); RED CELL DISTRIBUTION WIDTH 16.8 % (11.6-14.8); WHITE BLOOD COUNT 10.1 K/UL (4.8-10.8)
[2018-03-24] MEDS ORDERED: NS 275ml ONE (09:18)
--- NOTE | 2018-03-24 09:29 | Cardiology Report ---
APPROVED REPORT EXAM: Two-dimensional and M-mode echocardiogram with Doppler and color Doppler. INDICATION LV FUNCTION M-Mode DIMENSIONS IVSd1.0 (0.7-1.1cm)Left Atrium (MM)2.9 (1.6-4.0cm) LVDd3.8 (3.5-5.6cm)Aortic Root2.8 (2.0-3.7cm) PWd1.3 (0.7-1.1cm)Aortic Cusp Exc.1.8 (1.5-2.0cm) IVSs1.8 cm LVDs1.9 (2.5-4.0cm) PWs1.4 cm Normal left ventricular chamber size, systolic function and wall motion . Left ventricular ejection fraction estimated to be 60-65%. Mild to moderate left ventricular hypertrophy by 2-D. No evidence of pericardial effusion. All other cardiac chamber sizes are within normal limits. Focal aortic valve sclerosis with adequate cusp excursion. Mildly Thickened mitral valve leaflets with normal excursion. Mildly Mitral annulus and aortic root calcification. Normal pulmonic valve structure. Normal tricuspid valve structure. IVC dialed at size 2.5 with physiologic collapse. A color flow and spectral Doppler study was performed and revealed: No aortic regurgitation. Trace mitral regurgitation. Normal left ventricular diastolic function . Mild tricuspid regurgitation. Tricuspid systolic velocities suggests peak right ventricular systolic pressure of 38 mmHg consistent with mild pulmonary hypertension. No Pulmonic regurgitation present.
[2018-03-24 09:42] LABS: ALANINE AMINOTRANSFERASE 18 U/L (12-78); ALBUMIN/GLOBULIN RATIO 0.9 (1.0-2.7); ALKALINE PHOSPHATASE 95 U/L (46-116); ANION GAP 11 mmol/L (5-15); ASPARTATE AMINO TRANSFERASE 21 U/L (15-37); BILIRUBIN,TOTAL 0.2 MG/DL (0.2-1.0); BLOOD UREA NITROGEN 43 mg/dL (7-18); CALCIUM 7.5 MG/DL (8.5-10.1); CARBON DIOXIDE 24 MMOL/L (21-32); CHLORIDE 105 MMOL/L (98-107); CREATININE 1.5 MG/DL (0.55-1.30); PHOSPHORUS 4.9 MG/DL (2.5-4.9); SODIUM 140 MMOL/L (136-145)
[2018-03-24] MEDS: Albuterol/Ipratropium 3ml neb HHN PRN ×2 (10:55→20:30)
[2018-03-24 12:00] VITALS: BP 146/79
--- NOTE | 2018-03-24 12:11 | Pulmonology Progress Note ---
Assessment/Plan Problems: (1) Acute bronchitis (2) COPD exacerbation (3) Atypical chest pain (4) Diabetic foot ulcer (5) Emphysema lung (6) Severe malnutrition (7) DM (diabetes mellitus) Assessment/Plan d/w psychiatry will start Remeron taper steroids increase in BUN most likely secondary to steroids respiratory treatment iv abx check cultures check troponin, not significant echo noted cardio to see Podiatry to see Subjective ROS Limited/Unobtainable: No Interval Events: comfortable, still short of breath Allergies: Coded Allergies: EGG (Verified Allergy, Unknown, 09/22/15) MEPERIDINE (Verified Allergy, Unknown, 12/21/10) MORPHINE (Verified Allergy, Unknown, Shortness of Breath, 01/24/14) itching,shortness of breath,dyspnea NITROGLYCERIN (Verified Allergy, Unknown, hives, 02/18/17) Objective Last 24 Hour Vital Signs Date Time Temp Pulse Resp B/P (MAP) Pulse Ox O2 Delivery O2 Flow Rate FiO2 03/24/18 11:08 96 16 99 Room Air 21 03/24/18 10:55 96 18 90 Room Air 21 03/24/18 08:47 86 16 Room Air 03/24/18 08:42 94 134/68 03/24/18 08:00 96.8 94 18 134/68 96 Room Air 96.8 03/24/18 08:00 95 03/24/18 04:00 88 03/24/18 04:00 98.4 82 18 112/59 95 Room Air 98.4 03/24/18 00:00 98.2 87 19 115/66 94 Room Air 98.2 03/24/18 00:00 96 03/23/18 20:08 111 18 Room Air 03/23/18 20:00 109 03/23/18 20:00 96.6 100 22 101/60 94 Room Air 96.6 03/23/18 19:28 98.0 03/23/18 18:29 98.0 03/23/18 16:00 102 03/23/18 16:00 97.2 102 20 117/55 94 Room Air 97.2 03/23/18 15:37 98.0 03/23/18 14:34 99 16 98 Room Air 21 03/23/18 14:24 98 18 95 Room Air 21 03/23/18 12:12 98.0 Intake and Output 03/23/18 03/24/18 19:00 07:00 Intake Total 320 ml Output Total 500 ml Balance 320 ml -500 ml Intake Oral 320 ml Output Urine Total 500 ml # Voids 4 2 General Appearance: cachetic HEENT: normocephalic, atraumatic Respiratory/Chest: chest wall non-tender, crackles/rales Cardiovascular: normal peripheral pulses, normal rate Abdomen: normal bowel sounds, soft, non tender Genitourinary: normal external genitalia Extremities: no cyanosis Skin: no rash 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 Lymphatic: no neck adenopathy Microbiology Date/Time Source Procedure Growth Status 03/23/18 21:40 Nasopharynx Influenza Types A,B Antigen (JEROME) - Final Complete Laboratory Tests 03/24/18 07:55: White Blood Count 10.1, Red Blood Count 4.38L, Hemoglobin 11.7L, Hematocrit 36.1L, Mean Corpuscular Volume 83, Mean Corpuscular Hemoglobin 26.8L, Mean Corpuscular Hemoglobin Concent 32.5, Red Cell Distribution Width 16.8H, Platelet Count 257, Mean Platelet Volume 6.6, Neutrophils (%) (Auto) , Lymphocytes (%) (Auto) , Monocytes (%) (Auto) , Eosinophils (%) (Auto) , Basophils (%) (Auto) , Differential Total Cells Counted 100, Neutrophils % ( Manual) 89H, Lymphocytes % (Manual) 8L, Monocytes % (Manual) 3, Eosinophils % ( Manual) 0, Basophils % (Manual) 0, Band Neutrophils 0, Platelet Estimate Adequate, Platelet Morphology Normal, Anisocytosis 1+, Erythrocyte Sedimentation Rate 17, Sodium Level 140, Potassium Level 4.0, Chloride Level 105 , Carbon Dioxide Level 24, Anion Gap 11, Blood Urea Nitrogen 43H, Creatinine 1.5H, Estimat Glomerular Filtration Rate 56.4, Glucose Level 147H, Calcium Level 7.5L, Phosphorus Level 4.9, Magnesium Level 2.3, Total Bilirubin 0.2, Aspartate Amino Transf (AST/SGOT) 21, Alanine Aminotransferase (ALT/SGPT) 18, Alkaline Phosphatase 95, Troponin I 0.042, Total Protein 6.4, Albumin 3.0L, Globulin 3.4, Albumin/Globulin Ratio 0.9L Current Medications Medications (Trade) Dose Ordered Sig/Aminata Route PRN Reason Start Time Stop Time Status Last Admin Dose Admin Albuterol/ Ipratropium (Albuterol/ Ipratropium) 3 ml Q4H PRN HHN dyspnea 03/22/18 08:30 03/27/18 08:29 03/24/18 10:55 Amlodipine Besylate (Norvasc) 10 mg DAILY ORAL 03/23/18 09:00 04/22/18 08:59 03/24/18 08:42 Dextrose (Dextrose 50%) 25 ml STAT PRN IV Hypoglycemia 03/22/18 08:30 04/21/18 08:29 Dextrose (Dextrose 50%) 50 ml STAT PRN IV Hypoglycemia 03/22/18 08:45 04/21/18 08:44 Heparin Sodium (Porcine) (Heparin 5000 units/ml) 5,000 units EVERY 12 HOURS SUBQ 03/22/18 21:00 04/21/18 20:59 03/24/18 08:33 Hydromorphone HCl (Dilaudid) 3 mg Q3H PRN IVP Severe Pain (7-10) 03/22/18 18:00 03/29/18 17:59 03/24/18 11:45 Levetiracetam (Keppra) 500 mg EVERY 12 HOURS ORAL 03/22/18 21:00 04/21/18 20:59 03/24/18 08:24 Levofloxacin (Levaquin) 500 mg QHS ORAL 03/24/18 21:00 03/31/18 20:59 Lorazepam (Ativan 2mg/ml 1ml) 0.5 mg Q4H PRN IV For Anxiety 03/22/18 08:30 03/29/18 08:29 Methylprednisolone Sodium Succinate (Solu-MEDROL) 60 mg EVERY 12 HOURS IV 03/23/18 21:00 04/21/18 11:59 03/24/18 08:24 Mirtazapine (Remeron) 15 mg BEDTIME ORAL 03/24/18 21:00 04/23/18 20:59 UNV Ondansetron HCl (Zofran) 4 mg Q6H PRN IVP Nausea & Vomiting 03/22/18 08:30 04/21/18 08:29 Promethazine HCl/ Codeine (Phenergan with Codeine) 5 ml Q6H PRN ORAL cough 03/22/18 08:30 04/21/18 08:29 03/22/18 18:28 Theophylline (Wilfrido-Dur) 100 mg EVERY 12 HOURS ORAL 03/22/18 21:00 04/21/18 20:59 03/24/18 08:24 Jessie Magana MD March 24, 2018 12:11
--- NOTE | 2018-03-24 12:53 | Infectious Diseases Prog Note ---
Assessment/Plan Assessment/Plan Assessment: COPD exacerbation -CXR: no acute process -influenza sc neg Afebrile, no leukocytosis Troponinemia, improving- ?demand ischemia HTN severe malnutrition MDD tobacco abuse seizure disorder emphysema DM2 CAD s/p CABG COPD bedbound Plan: -Continue PO Levaquin abx d#3 for COPD exacerbation -03/23 SP Zosyn #2 -monitor Qtc -Monitor CBC/BMP, temperatures -aspiration precautions Thank you for this consultation. Will continue to follow along with you. Discussed with RN Subjective Allergies: Coded Allergies: EGG (Verified Allergy, Unknown, 09/22/15) MEPERIDINE (Verified Allergy, Unknown, 12/21/10) MORPHINE (Verified Allergy, Unknown, Shortness of Breath, 01/24/14) itching,shortness of breath,dyspnea NITROGLYCERIN (Verified Allergy, Unknown, hives, 02/18/17) Subjective afebrile no leukocytosis at RA Objective Vital Signs Last 24 Hour Vital Signs Date Time Temp Pulse Resp B/P (MAP) Pulse Ox O2 Delivery O2 Flow Rate FiO2 03/24/18 12:00 98.1 92 20 146/79 100 98.1 03/24/18 11:08 96 16 99 Room Air 21 03/24/18 10:55 96 18 90 Room Air 21 03/24/18 08:47 86 16 Room Air 03/24/18 08:42 94 134/68 03/24/18 08:00 96.8 94 18 134/68 96 Room Air 96.8 03/24/18 08:00 95 03/24/18 04:00 88 03/24/18 04:00 98.4 82 18 112/59 95 Room Air 98.4 03/24/18 00:00 98.2 87 19 115/66 94 Room Air 98.2 03/24/18 00:00 96 03/23/18 20:08 111 18 Room Air 03/23/18 20:00 109 03/23/18 20:00 96.6 100 22 101/60 94 Room Air 96.6 03/23/18 19:28 98.0 03/23/18 18:29 98.0 03/23/18 16:00 102 03/23/18 16:00 97.2 102 20 117/55 94 Room Air 97.2 03/23/18 15:37 98.0 03/23/18 14:34 99 16 98 Room Air 21 03/23/18 14:24 98 18 95 Room Air 21 Height (Feet): 6 Height (Inches): 0.00 Weight (Pounds): 140 Objective General Appearance: cachetic Lines, tubes and drains: peripheral HEENT: normocephalic Respiratory/Chest: chest wall non-tender, rhonchi - left, rhonchi - right Breasts: no masses Cardiovascular/Chest: normal peripheral pulses, normal rate, regular rhythm Abdomen: normal bowel sounds, soft Microbiology Date/Time Source Procedure Growth Status 03/23/18 21:40 Nasopharynx Influenza Types A,B Antigen (JEROME) - Final Complete Laboratory Tests Test 03/24/18 07:55 White Blood Count 10.1 K/UL (4.8-10.8) Red Blood Count 4.38 M/UL (4.70-6.10) L Hemoglobin 11.7 G/DL (14.2-18.0) L Hematocrit 36.1 % (42.0-52.0) L Mean Corpuscular Volume 83 FL (80-99) Mean Corpuscular Hemoglobin 26.8 PG (27.0-31.0) L Mean Corpuscular Hemoglobin Concent 32.5 G/DL (32.0-36.0) Red Cell Distribution Width 16.8 % (11.6-14.8) H Platelet Count 257 K/UL (150-450) Mean Platelet Volume 6.6 FL (6.5-10.1) Neutrophils (%) (Auto) % (45.0-75.0) Lymphocytes (%) (Auto) % (20.0-45.0) Monocytes (%) (Auto) % (1.0-10.0) Eosinophils (%) (Auto) % (0.0-3.0) Basophils (%) (Auto) % (0.0-2.0) Differential Total Cells Counted 100 Neutrophils % (Manual) 89 % (45-75) H Lymphocytes % (Manual) 8 % (20-45) L Monocytes % (Manual) 3 % (1-10) Eosinophils % (Manual) 0 % (0-3) Basophils % (Manual) 0 % (0-2) Band Neutrophils 0 % (0-8) Platelet Estimate Adequate Platelet Morphology Normal Anisocytosis 1+ Erythrocyte Sedimentation Rate 17 MM/HR (0-20) Sodium Level 140 MMOL/L (136-145) Potassium Level 4.0 MMOL/L (3.5-5.1) Chloride Level 105 MMOL/L (98-107) Carbon Dioxide Level 24 MMOL/L (21-32) Anion Gap 11 mmol/L (5-15) Blood Urea Nitrogen 43 mg/dL (7-18) H Creatinine 1.5 MG/DL (0.55-1.30) H Estimat Glomerular Filtration Rate 56.4 mL/min (>60) Glucose Level 147 MG/DL (74-106) H Calcium Level 7.5 MG/DL (8.5-10.1) L Phosphorus Level 4.9 MG/DL (2.5-4.9) Magnesium Level 2.3 MG/DL (1.8-2.4) Total Bilirubin 0.2 MG/DL (0.2-1.0) Aspartate Amino Transf (AST/SGOT) 21 U/L (15-37) Alanine Aminotransferase (ALT/SGPT) 18 U/L (12-78) Alkaline Phosphatase 95 U/L (46-116) Troponin I 0.042 ng/mL (0.000-0.056) Total Protein 6.4 G/DL (6.4-8.2) Albumin 3.0 G/DL (3.4-5.0) L Globulin 3.4 g/dL Albumin/Globulin Ratio 0.9 (1.0-2.7) L Current Medications Medications (Trade) Dose Ordered Sig/Aminata Route PRN Reason Start Time Stop Time Status Last Admin Dose Admin Albuterol/ Ipratropium (Albuterol/ Ipratropium) 3 ml Q4H PRN HHN dyspnea 03/22/18 08:30 03/27/18 08:29 03/24/18 10:55 Amlodipine Besylate (Norvasc) 10 mg DAILY ORAL 03/23/18 09:00 04/22/18 08:59 03/24/18 08:42 Dextrose (Dextrose 50%) 25 ml STAT PRN IV Hypoglycemia 03/22/18 08:30 04/21/18 08:29 Dextrose (Dextrose 50%) 50 ml STAT PRN IV Hypoglycemia 03/22/18 08:45 04/21/18 08:44 Heparin Sodium (Porcine) (Heparin 5000 units/ml) 5,000 units EVERY 12 HOURS SUBQ 03/22/18 21:00 04/21/18 20:59 03/24/18 08:33 Hydromorphone HCl (Dilaudid) 3 mg Q3H PRN IVP Severe Pain (7-10) 03/22/18 18:00 03/29/18 17:59 03/24/18 11:45 Levetiracetam (Keppra) 500 mg EVERY 12 HOURS ORAL 03/22/18 21:00 04/21/18 20:59 03/24/18 08:24 Levofloxacin (Levaquin) 500 mg QHS ORAL 03/24/18 21:00 03/31/18 20:59 Lorazepam (Ativan 2mg/ml 1ml) 0.5 mg Q4H PRN IV For Anxiety 03/22/18 08:30 03/29/18 08:29 Methylprednisolone Sodium Succinate (Solu-MEDROL) 30 mg EVERY 12 HOURS IVP 03/24/18 21:00 04/21/18 11:59 Mirtazapine (Remeron) 15 mg BEDTIME ORAL 03/24/18 21:00 04/23/18 20:59 Ondansetron HCl (Zofran) 4 mg Q6H PRN IVP Nausea & Vomiting 03/22/18 08:30 04/21/18 08:29 Promethazine HCl/ Codeine (Phenergan with Codeine) 5 ml Q6H PRN ORAL cough 03/22/18 08:30 04/21/18 08:29 03/22/18 18:28 Theophylline (Wilfrido-Dur) 100 mg EVERY 12 HOURS ORAL 03/22/18 21:00 04/21/18 20:59 03/24/18 08:24 Jessica Parry M.D. March 24, 2018 12:53
--- NOTE | 2018-03-24 13:39 | Cardiology Progress Note ---
Assessment/Plan Assessment/Plan 1. Atypical chest pain. 2. History of prior multiple admissions for chest pain. 3. Coronary artery disease status post coronary bypass grafting history. 4. Chronic obstructive pulmonary disease. 5. Reported nausea, vomiting, and diarrhea. 6. Cellulitis of the lower extremities. 7. Renal insuf trop not reach threshold for ami set by can worker and in light of renal insuf of ? significance pain worse with position and left arm movment and with touch area ekg unchanged trop min abn still echo normal wall motion venous duplex of le tele reviewed neg Subjective Cardiovascular: Reports: chest pain Respiratory: Reports: shortness of breath Gastrointestinal/Abdominal: Denies: abdominal pain Genitourinary: Denies: burning Objective Last 24 Hour Vital Signs Date Time Temp Pulse Resp B/P (MAP) Pulse Ox O2 Delivery O2 Flow Rate FiO2 03/24/18 12:00 98.1 92 20 146/79 100 98.1 03/24/18 12:00 106 03/24/18 11:08 96 16 99 Room Air 21 03/24/18 10:55 96 18 90 Room Air 21 03/24/18 08:47 86 16 Room Air 03/24/18 08:42 94 134/68 03/24/18 08:00 96.8 94 18 134/68 96 Room Air 96.8 03/24/18 08:00 95 03/24/18 04:00 88 03/24/18 04:00 98.4 82 18 112/59 95 Room Air 98.4 03/24/18 00:00 98.2 87 19 115/66 94 Room Air 98.2 03/24/18 00:00 96 03/23/18 20:08 111 18 Room Air 03/23/18 20:00 109 03/23/18 20:00 96.6 100 22 101/60 94 Room Air 96.6 03/23/18 19:28 98.0 03/23/18 18:29 98.0 03/23/18 16:00 102 03/23/18 16:00 97.2 102 20 117/55 94 Room Air 97.2 03/23/18 15:37 98.0 03/23/18 14:34 99 16 98 Room Air 21 03/23/18 14:24 98 18 95 Room Air 21 General Appearance: alert Neck: supple Cardiovascular: normal rate Respiratory/Chest: decreased breath sounds Abdomen: normal bowel sounds, non tender, soft Extremities: other - righ tleg midl edema Intake and Output 03/23/18 03/24/18 19:00 07:00 Intake Total 320 ml Output Total 500 ml Balance 320 ml -500 ml Intake Oral 320 ml Output Urine Total 500 ml # Voids 4 2 Laboratory Tests Test 03/24/18 07:55 White Blood Count 10.1 K/UL (4.8-10.8) Red Blood Count 4.38 M/UL (4.70-6.10) L Hemoglobin 11.7 G/DL (14.2-18.0) L Hematocrit 36.1 % (42.0-52.0) L Mean Corpuscular Volume 83 FL (80-99) Mean Corpuscular Hemoglobin 26.8 PG (27.0-31.0) L Mean Corpuscular Hemoglobin Concent 32.5 G/DL (32.0-36.0) Red Cell Distribution Width 16.8 % (11.6-14.8) H Platelet Count 257 K/UL (150-450) Mean Platelet Volume 6.6 FL (6.5-10.1) Neutrophils (%) (Auto) % (45.0-75.0) Lymphocytes (%) (Auto) % (20.0-45.0) Monocytes (%) (Auto) % (1.0-10.0) Eosinophils (%) (Auto) % (0.0-3.0) Basophils (%) (Auto) % (0.0-2.0) Differential Total Cells Counted 100 Neutrophils % (Manual) 89 % (45-75) H Lymphocytes % (Manual) 8 % (20-45) L Monocytes % (Manual) 3 % (1-10) Eosinophils % (Manual) 0 % (0-3) Basophils % (Manual) 0 % (0-2) Band Neutrophils 0 % (0-8) Platelet Estimate Adequate Platelet Morphology Normal Anisocytosis 1+ Erythrocyte Sedimentation Rate 17 MM/HR (0-20) Sodium Level 140 MMOL/L (136-145) Potassium Level 4.0 MMOL/L (3.5-5.1) Chloride Level 105 MMOL/L (98-107) Carbon Dioxide Level 24 MMOL/L (21-32) Anion Gap 11 mmol/L (5-15) Blood Urea Nitrogen 43 mg/dL (7-18) H Creatinine 1.5 MG/DL (0.55-1.30) H Estimat Glomerular Filtration Rate 56.4 mL/min (>60) Glucose Level 147 MG/DL (74-106) H Calcium Level 7.5 MG/DL (8.5-10.1) L Phosphorus Level 4.9 MG/DL (2.5-4.9) Magnesium Level 2.3 MG/DL (1.8-2.4) Total Bilirubin 0.2 MG/DL (0.2-1.0) Aspartate Amino Transf (AST/SGOT) 21 U/L (15-37) Alanine Aminotransferase (ALT/SGPT) 18 U/L (12-78) Alkaline Phosphatase 95 U/L (46-116) Troponin I 0.042 ng/mL (0.000-0.056) Total Protein 6.4 G/DL (6.4-8.2) Albumin 3.0 G/DL (3.4-5.0) L Globulin 3.4 g/dL Albumin/Globulin Ratio 0.9 (1.0-2.7) L Microbiology Date/Time Source Procedure Growth Status 03/23/18 21:40 Nasopharynx Influenza Types A,B Antigen (JEROME) - Final Complete AGUSTO STARKEY March 24, 2018 13:39
--- NOTE | 2018-03-24 14:08 | Consultation ---
Consult Note Assessment/Plan A/ 1) Pressure ulcer right lateral ankle - significantly improved since last admission 2) PAD 3) DM 4) Malunion of fracture right lower extremity 5) h/o osteomyelitis 6) Pain in left foot toes x 1 mth P/ 1) Cont wound care 2) X-ray of left foot 3) Will follow Thank you Dave Pereira DPM March 24, 2018 14:08
[2018-03-24 16:00] VITALS: BP 133/65
--- NOTE | 2018-03-24 16:52 | Cardiology Report ---
APPROVED REPORT EKG Measurement Heart [id number] Normal sinus rhythm Normal ECG
--- NOTE | 2018-03-24 19:15 | Consultation ---
DATE OF CONSULTATION: 03/24/2018 CONSULTING PHYSICIAN: Dave Fowler DPM. REQUESTING PHYSICIAN: Jessie Magana M.D. REASON FOR CONSULTATION: Chronic ulcer, lateral right ankle and pain of the toes of left foot. HISTORY OF PRESENT ILLNESS: The patient is known to my service over multiple admissions and is a 67-year-old male who was admitted to [facility] on March 22, 2018, for exacerbation of COPD and bronchitis. The patient states that since his last visit at the hospital, he has been performing wound care as I have instructed him to do so and has been successful in his treatments. He is very proud that the wound size is significantly improved. He has no pain in the ankle and is complaining of pain in the toes of the left foot x1 month. He is very grateful to service that I provided for him and he is going to continue the wound care as ordered. PAST MEDICAL HISTORY: Significant for COPD, coronary artery disease, hypertension, peripheral arterial disease, history of osteomyelitis, and fracture to the right lower extremity with resultant malunion. ALLERGIES: He is allergic to egg, meperidine, morphine, and nitroglycerin. MEDICATIONS: Per PIEDAD and include Levaquin, heparin for DVT prophylaxis, and Dilaudid for pain management. SOCIAL HISTORY: Noncontributory. FAMILY HISTORY: Noncontributory. REVIEW OF SYSTEMS: HEENT: The patient denies any headaches, blurred vision, or ringing in the ears. CARDIORESPIRATORY: Denies any chest pain or shortness of breath. GENITOURINARY: The patient denies any urgency, frequency, burning upon urination, or hematuria. GASTROINTESTINAL: Denies any constipation, diarrhea, or blood in the stool. PHYSICAL EXAMINATION: VITAL SIGNS: Temperature is 98.1, pulse is 92, respiration rate is 20, blood pressure is 146/79, he is saturating 100% on room air. LOWER EXTREMITIES: VASCULAR: Nonpalpable pedal pulses noted bilaterally. Feet are equally warm. There is no edema or cyanosis noted. DERMATOLOGICAL: There is a full-thickness ulceration noted on the lateral aspect of the right ankle. The wound probes to subcutaneous tissue. No bone or tendon is exposed. The wound is significantly improved from previous admission. There is no malodor or discharge noted from the site. Wound base is granular. Remaining dermatological exam bilaterally is unremarkable. MUSCULOSKELETAL: He has contractures of the toes noted and the second, third, and fourth of the left foot are painful to range of motion. NEUROLOGICAL: Protective thresholds intact. LABORATORY DATA: White blood cell count 10.1, hemoglobin 11.7, hematocrit 36.1, and platelet count is 257,000. Sedimentation rate is 17. Creatinine of 1.5, BUN 43, potassium 4.0, glucose 147, albumin 3.0. No lower extremity imaging is noted at this time. ASSESSMENT: 1. Pressure ulcer of the right lateral ankle significantly improved since last admission. 2. Peripheral arterial disease. 3. Diabetes mellitus. 4. Malunion of fracture of the right lower extremity. 5. History of osteomyelitis. 6. Pain in the left foot and the toes of the left foot x1 month. PLAN: 1. Continue wound care. 2. X-ray of the left foot will be ordered. 3. We will follow. Thank you for the courtesy of consultation, Dr. Magana. Dave Fowler D.P.M. DR: Mike JOB#: [id number] CC:
[2018-03-24 20:00] VITALS: BP 131/68
[2018-03-24] MEDS ORDERED: Levofloxacin 500mg tab ORAL SCH (21:00)
[2018-03-24] MEDS: Solu-MEDROL 40mg Inj IVP SCH (21:20)
--- NOTE | 2018-03-24 22:13 | General Progress Note ---
Assessment/Plan Status: stable Assessment/Plan dc anthonyien start remeron 15mg qhs the pt agreed with remeron Subjective Date patient seen: March 24, 2018 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: Reports: anxiety, depressed, emotional problems Allergies: Coded Allergies: EGG (Verified Allergy, Unknown, 09/22/15) MEPERIDINE (Verified Allergy, Unknown, 12/21/10) MORPHINE (Verified Allergy, Unknown, Shortness of Breath, 01/24/14) itching,shortness of breath,dyspnea NITROGLYCERIN (Verified Allergy, Unknown, hives, 02/18/17) Subjective irritable not able to sleep Objective Last 24 Hour Vital Signs Date Time Temp Pulse Resp B/P (MAP) Pulse Ox O2 Delivery O2 Flow Rate FiO2 03/24/18 20:32 78 18 96 Room Air 21 03/24/18 20:32 80 20 98 Room Air 21 03/24/18 20:00 97.3 82 20 131/68 95 97.3 03/24/18 20:00 78 16 Room Air 21 03/24/18 19:49 105 03/24/18 16:00 97 03/24/18 16:00 97.7 92 20 133/65 96 97.7 03/24/18 12:00 98.1 92 20 146/79 100 98.1 03/24/18 12:00 106 03/24/18 11:08 96 16 99 Room Air 21 03/24/18 10:55 96 18 90 Room Air 21 03/24/18 08:47 86 16 Room Air 03/24/18 08:42 94 134/68 03/24/18 08:00 96.8 94 18 134/68 96 Room Air 96.8 03/24/18 08:00 95 03/24/18 04:00 88 03/24/18 04:00 98.4 82 18 112/59 95 Room Air 98.4 03/24/18 00:00 98.2 87 19 115/66 94 Room Air 98.2 03/24/18 00:00 96 Intake and Output 03/23/18 03/24/18 19:00 07:00 Intake Total 320 ml Output Total 500 ml Balance 320 ml -500 ml Intake Oral 320 ml Output Urine Total 500 ml # Voids 4 2 Laboratory Tests 03/24/18 07:55: White Blood Count 10.1, Red Blood Count 4.38L, Hemoglobin 11.7L, Hematocrit 36.1L, Mean Corpuscular Volume 83, Mean Corpuscular Hemoglobin 26.8L, Mean Corpuscular Hemoglobin Concent 32.5, Red Cell Distribution Width 16.8H, Platelet Count 257, Mean Platelet Volume 6.6, Neutrophils (%) (Auto) , Lymphocytes (%) (Auto) , Monocytes (%) (Auto) , Eosinophils (%) (Auto) , Basophils (%) (Auto) , Differential Total Cells Counted 100, Neutrophils % ( Manual) 89H, Lymphocytes % (Manual) 8L, Monocytes % (Manual) 3, Eosinophils % ( Manual) 0, Basophils % (Manual) 0, Band Neutrophils 0, Platelet Estimate Adequate, Platelet Morphology Normal, Anisocytosis 1+, Erythrocyte Sedimentation Rate 17, Sodium Level 140, Potassium Level 4.0, Chloride Level 105 , Carbon Dioxide Level 24, Anion Gap 11, Blood Urea Nitrogen 43H, Creatinine 1.5H, Estimat Glomerular Filtration Rate 56.4, Glucose Level 147H, Calcium Level 7.5L, Phosphorus Level 4.9, Magnesium Level 2.3, Total Bilirubin 0.2, Aspartate Amino Transf (AST/SGOT) 21, Alanine Aminotransferase (ALT/SGPT) 18, Alkaline Phosphatase 95, Troponin I 0.042, Total Protein 6.4, Albumin 3.0L, Globulin 3.4, Albumin/Globulin Ratio 0.9L 03/24/18 16:45: Troponin I 0.028 Height (Feet): 6 Height (Inches): 0.00 Weight (Pounds): 140 General Appearance: WD/WN, no apparent distress, alert Neurologic: oriented x 3, responsive, depressed affect Rachael Buckley M.D. March 24, 2018 22:13
[2018-03-25] VITALS: BP 136/66
[2018-03-25 04:00] VITALS: BP 138/61
[2018-03-25] MEDS: Albuterol/Ipratropium 3ml neb HHN PRN ×2 (07:47→16:29)
[2018-03-25 08:00] VITALS: BP 123/65
[2018-03-25 08:03] LABS: BASOPHILS % (AUTO) 0.8 % (0.0-2.0); HEMATOCRIT 37.5 % (42.0-52.0); HEMOGLOBIN 12.4 G/DL (14.2-18.0); LYMPHOCYTES % (AUTO) 10.4 % (20.0-45.0); MEAN CORPUSCULAR VOLUME 84 FL (80-99); MONOCYTES % (AUTO) 7.4 % (1.0-10.0); NEUTROPHILS % (AUTO) 81.4 % (45.0-75.0); PLATELET COUNT 256 K/UL (150-450); RED BLOOD COUNT 4.49 M/UL (4.70-6.10); RED CELL DISTRIBUTION WIDTH 17.4 % (11.6-14.8)
[2018-03-25 08:27] LABS: ALANINE AMINOTRANSFERASE 14 U/L (12-78); ALBUMIN 3.1 G/DL (3.4-5.0); ALBUMIN/GLOBULIN RATIO 0.8 (1.0-2.7); ALKALINE PHOSPHATASE 94 U/L (46-116); ANION GAP 11 mmol/L (5-15); ASPARTATE AMINO TRANSFERASE 17 U/L (15-37); BILIRUBIN,TOTAL 0.2 MG/DL (0.2-1.0); BLOOD UREA NITROGEN 45 mg/dL (7-18); CALCIUM 7.7 MG/DL (8.5-10.1); CARBON DIOXIDE 24 MMOL/L (21-32); CHLORIDE 108 MMOL/L (98-107); CREATININE 1.6 MG/DL (0.55-1.30); PHOSPHORUS 3.9 MG/DL (2.5-4.9); POTASSIUM 4.3 MMOL/L (3.5-5.1); SODIUM 143 MMOL/L (136-145)
[2018-03-25] MEDS: Theophylline ER 100mg ORAL SCH ×2 (08:51→21:02)
[2018-03-25] MEDS: Heparin 5000 units/ml inj SUBQ SCH ×2 (08:57→21:03)
[2018-03-25] MEDS: Solu-MEDROL 40mg Inj IVP SCH (08:59)
[2018-03-25] MEDS ORDERED: Promethazine/Codeine 5ml UD ORAL PRN (11:30)
[2018-03-25] MEDS ORDERED: Albuterol/Ipratropium 3ml neb HHN PRN (11:30)
[2018-03-25 12:00] VITALS: BP 144/66
--- NOTE | 2018-03-25 12:26 | General Progress Note ---
Assessment/Plan Status: stable, progressing Assessment/Plan dc juvencio start remeron 15mg qhs the pt agreed with remeron Subjective Date patient seen: March 25, 2018 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: Reports: anxiety, depressed Allergies: Coded Allergies: EGG (Verified Allergy, Unknown, 09/22/15) MEPERIDINE (Verified Allergy, Unknown, 12/21/10) MORPHINE (Verified Allergy, Unknown, Shortness of Breath, 01/24/14) itching,shortness of breath,dyspnea NITROGLYCERIN (Verified Allergy, Unknown, hives, 02/18/17) Subjective the pt slept well Objective Last 24 Hour Vital Signs Date Time Temp Pulse Resp B/P (MAP) Pulse Ox O2 Delivery O2 Flow Rate FiO2 03/25/18 11:01 97.1 03/25/18 10:31 97.1 03/25/18 08:53 91 123/65 03/25/18 07:53 97 2 Room Air 21 03/25/18 07:50 99 20 99 Room Air 21 03/25/18 07:40 97 18 94 Room Air 21 03/25/18 04:00 97.1 89 18 138/61 94 97.1 03/25/18 03:41 90 03/25/18 00:00 97.2 100 20 136/66 93 97.2 03/24/18 23:50 99 03/24/18 20:32 78 18 96 Room Air 21 03/24/18 20:32 80 20 98 Room Air 21 03/24/18 20:00 97.3 82 20 131/68 95 97.3 03/24/18 20:00 78 16 Room Air 21 03/24/18 19:49 105 03/24/18 16:00 97 03/24/18 16:00 97.7 92 20 133/65 96 97.7 Intake and Output 03/24/18 03/25/18 19:00 07:00 Intake Total 1000 ml Balance 1000 ml Intake Oral 1000 ml # Voids 2 1 # Bowel Movements 2 Laboratory Tests 03/24/18 16:45: Troponin I 0.028 03/25/18 06:30: White Blood Count 9.0, Red Blood Count 4.49L, Hemoglobin 12.4L, Hematocrit 37.5L , Mean Corpuscular Volume 84, Mean Corpuscular Hemoglobin 27.6, Mean Corpuscular Hemoglobin Concent 33.0, Red Cell Distribution Width 17.4H, Platelet Count 256, Mean Platelet Volume 6.8, Neutrophils (%) (Auto) 81.4H, Lymphocytes (%) (Auto) 10.4L, Monocytes (%) (Auto) 7.4, Eosinophils (%) (Auto) 0.0, Basophils (%) (Auto) 0.8, Sodium Level 143, Potassium Level 4.3, Chloride Level 108H, Carbon Dioxide Level 24, Anion Gap 11, Blood Urea Nitrogen 45H, Creatinine 1.6H, Estimat Glomerular Filtration Rate 52.4, Glucose Level 132H, Calcium Level 7.7L, Phosphorus Level 3.9, Magnesium Level 2.5H, Total Bilirubin 0.2, Aspartate Amino Transf (AST/SGOT) 17, Alanine Aminotransferase (ALT/SGPT) 14, Alkaline Phosphatase 94, Total Protein 7.0, Albumin 3.1L, Globulin 3.9, Albumin/Globulin Ratio 0.8L Height (Feet): 6 Height (Inches): 0.00 Weight (Pounds): 140 General Appearance: WD/WN, no apparent distress, alert Neurologic: oriented x 3, responsive Rachael Buckley M.D. March 25, 2018 12:26
[2018-03-25] MEDS ORDERED: LORazepam Inj 2mg/ml 1ml IV PRN (12:30)
--- NOTE | 2018-03-25 14:21 | Pulmonology Progress Note ---
Assessment/Plan Problems: (1) Acute bronchitis (2) COPD exacerbation (3) Atypical chest pain (4) Diabetic foot ulcer (5) Emphysema lung (6) Severe malnutrition (7) DM (diabetes mellitus) Assessment/Plan d/w psychiatry will start Remeron taper steroids to QD respiratory treatment check cultures, no sputum yet check troponin, not significant echo noted cardio to see Podiatry to see pt/ot dc probably in 1-2 days Subjective ROS Limited/Unobtainable: No Interval Events: less short of breath Allergies: Coded Allergies: EGG (Verified Allergy, Unknown, 09/22/15) MEPERIDINE (Verified Allergy, Unknown, 12/21/10) MORPHINE (Verified Allergy, Unknown, Shortness of Breath, 01/24/14) itching,shortness of breath,dyspnea NITROGLYCERIN (Verified Allergy, Unknown, hives, 02/18/17) Objective Last 24 Hour Vital Signs Date Time Temp Pulse Resp B/P (MAP) Pulse Ox O2 Delivery O2 Flow Rate FiO2 03/25/18 12:54 98 18 Room Air 21 03/25/18 12:44 94 18 Room Air 21 03/25/18 11:01 97.1 03/25/18 10:31 97.1 03/25/18 08:53 91 123/65 03/25/18 08:00 97.1 91 19 123/65 93 97.1 03/25/18 07:53 97 2 Room Air 21 03/25/18 07:50 99 20 99 Room Air 21 03/25/18 07:40 97 18 94 Room Air 21 03/25/18 04:00 97.1 89 18 138/61 94 97.1 03/25/18 03:41 90 03/25/18 00:00 97.2 100 20 136/66 93 97.2 03/24/18 23:50 99 03/24/18 20:32 78 18 96 Room Air 21 03/24/18 20:32 80 20 98 Room Air 21 03/24/18 20:00 97.3 82 20 131/68 95 97.3 03/24/18 20:00 78 16 Room Air 21 03/24/18 19:49 105 03/24/18 16:00 97 03/24/18 16:00 97.7 92 20 133/65 96 97.7 Intake and Output 03/24/18 03/25/18 19:00 07:00 Intake Total 1000 ml Balance 1000 ml Intake Oral 1000 ml # Voids 2 1 # Bowel Movements 2 General Appearance: WD/WN HEENT: normocephalic, atraumatic Respiratory/Chest: chest wall non-tender, lungs clear Cardiovascular: normal peripheral pulses, normal rate, no JVD Abdomen: normal bowel sounds, non distended Genitourinary: normal external genitalia Extremities: no clubbing Microbiology Date/Time Source Procedure Growth Status 03/23/18 21:40 Nasopharynx Influenza Types A,B Antigen (JEROME) - Final Complete 03/23/18 12:30 Ankle Right Gram Stain - Final Resulted 03/23/18 12:30 Ankle Right Wound Culture Pending Resulted Laboratory Tests 03/24/18 16:45: Troponin I 0.028 03/25/18 06:30: White Blood Count 9.0, Red Blood Count 4.49L, Hemoglobin 12.4L, Hematocrit 37.5L , Mean Corpuscular Volume 84, Mean Corpuscular Hemoglobin 27.6, Mean Corpuscular Hemoglobin Concent 33.0, Red Cell Distribution Width 17.4H, Platelet Count 256, Mean Platelet Volume 6.8, Neutrophils (%) (Auto) 81.4H, Lymphocytes (%) (Auto) 10.4L, Monocytes (%) (Auto) 7.4, Eosinophils (%) (Auto) 0.0, Basophils (%) (Auto) 0.8, Sodium Level 143, Potassium Level 4.3, Chloride Level 108H, Carbon Dioxide Level 24, Anion Gap 11, Blood Urea Nitrogen 45H, Creatinine 1.6H, Estimat Glomerular Filtration Rate 52.4, Glucose Level 132H, Calcium Level 7.7L, Phosphorus Level 3.9, Magnesium Level 2.5H, Total Bilirubin 0.2, Aspartate Amino Transf (AST/SGOT) 17, Alanine Aminotransferase (ALT/SGPT) 14, Alkaline Phosphatase 94, Total Protein 7.0, Albumin 3.1L, Globulin 3.9, Albumin/Globulin Ratio 0.8L Current Medications Medications (Trade) Dose Ordered Sig/Aminata Route PRN Reason Start Time Stop Time Status Last Admin Dose Admin Albuterol/ Ipratropium (Albuterol/ Ipratropium) 3 ml Q4H PRN HHN dyspnea 03/25/18 11:30 03/27/18 11:29 03/25/18 12:47 Amlodipine Besylate (Norvasc) 10 mg DAILY ORAL 03/26/18 09:00 04/22/18 08:59 Dextrose (Dextrose 50%) 25 ml STAT PRN IV Hypoglycemia 03/25/18 11:30 04/24/18 11:29 Dextrose (Dextrose 50%) 50 ml STAT PRN IV Hypoglycemia 03/25/18 11:30 04/24/18 11:29 Heparin Sodium (Porcine) (Heparin 5000 units/ml) 5,000 units EVERY 12 HOURS SUBQ 03/25/18 21:00 04/21/18 20:59 Hydromorphone HCl (Dilaudid) 3 mg Q3H PRN IVP Severe Pain (7-10) 03/25/18 12:00 03/29/18 17:59 03/25/18 13:46 Levetiracetam (Keppra) 500 mg EVERY 12 HOURS ORAL 03/25/18 21:00 04/21/18 20:59 Levofloxacin (Levaquin) 250 mg QHS ORAL 03/25/18 21:00 03/26/18 23:59 Lorazepam (Ativan 2mg/ml 1ml) 0.5 mg Q4H PRN IV For Anxiety 03/25/18 12:30 03/29/18 08:29 Methylprednisolone Sodium Succinate (Solu-MEDROL) 30 mg EVERY 12 HOURS IVP 03/25/18 21:00 04/21/18 11:59 Mirtazapine (Remeron) 15 mg BEDTIME ORAL 03/25/18 21:00 04/23/18 20:59 Ondansetron HCl (Zofran) 4 mg Q6H PRN IVP Nausea & Vomiting 03/25/18 12:00 04/21/18 11:59 Promethazine HCl/ Codeine (Phenergan with Codeine) 5 ml Q6H PRN ORAL cough 03/25/18 11:30 04/21/18 11:29 Theophylline (Wilfrido-Dur) 100 mg EVERY 12 HOURS ORAL 03/25/18 21:00 04/21/18 20:59 Jessie Magana MD March 25, 2018 14:21
--- NOTE | 2018-03-25 15:51 | Infectious Diseases Prog Note ---
Assessment/Plan Assessment/Plan Assessment: COPD exacerbation -CXR: no acute process -influenza sc neg Afebrile, no leukocytosis R Ankle chronic ulcer- healing, no signs of infection Troponinemia, improving- ?demand ischemia HTN severe malnutrition MDD tobacco abuse seizure disorder emphysema DM2 CAD s/p CABG COPD bedbound Plan: -Continue PO Levaquin abx d#4/ for COPD exacerbation -03/23 SP Zosyn #2 -monitor Qtc -Monitor CBC/BMP, temperatures -aspiration precautions Thank you for this consultation. Will continue to follow along with you. Discussed with RN Subjective Allergies: Coded Allergies: EGG (Verified Allergy, Unknown, 09/22/15) MEPERIDINE (Verified Allergy, Unknown, 12/21/10) MORPHINE (Verified Allergy, Unknown, Shortness of Breath, 01/24/14) itching,shortness of breath,dyspnea NITROGLYCERIN (Verified Allergy, Unknown, hives, 02/18/17) Subjective afebrile no leukocytosis at RA Objective Vital Signs Last 24 Hour Vital Signs Date Time Temp Pulse Resp B/P (MAP) Pulse Ox O2 Delivery O2 Flow Rate FiO2 03/25/18 12:54 98 18 Room Air 21 03/25/18 12:44 94 18 Room Air 21 03/25/18 12:00 98.5 90 18 144/66 95 Room Air 98.5 03/25/18 11:01 97.1 03/25/18 10:31 97.1 03/25/18 08:53 91 123/65 03/25/18 08:00 97.1 91 19 123/65 93 97.1 03/25/18 07:53 97 2 Room Air 21 03/25/18 07:50 99 20 99 Room Air 21 03/25/18 07:40 97 18 94 Room Air 21 03/25/18 04:00 97.1 89 18 138/61 94 97.1 03/25/18 03:41 90 03/25/18 00:00 97.2 100 20 136/66 93 97.2 03/24/18 23:50 99 03/24/18 20:32 78 18 96 Room Air 21 03/24/18 20:32 80 20 98 Room Air 21 03/24/18 20:00 97.3 82 20 131/68 95 97.3 03/24/18 20:00 78 16 Room Air 21 03/24/18 19:49 105 03/24/18 16:00 97 03/24/18 16:00 97.7 92 20 133/65 96 97.7 Height (Feet): 6 Height (Inches): 0.00 Weight (Pounds): 140 Objective General Appearance: cachetic Lines, tubes and drains: peripheral HEENT: normocephalic Respiratory/Chest: chest wall non-tender, rhonchi - left, rhonchi - right Breasts: no masses Cardiovascular/Chest: normal peripheral pulses, normal rate, regular rhythm Abdomen: normal bowel sounds, soft Microbiology Date/Time Source Procedure Growth Status 03/23/18 21:40 Nasopharynx Influenza Types A,B Antigen (JEROME) - Final Complete 03/23/18 12:30 Ankle Right Gram Stain - Final Resulted 03/23/18 12:30 Ankle Right Wound Culture Pending Resulted Laboratory Tests Test 03/24/18 16:45 03/25/18 06:30 Troponin I 0.028 ng/mL (0.000-0.056) White Blood Count 9.0 K/UL (4.8-10.8) Red Blood Count 4.49 M/UL (4.70-6.10) L Hemoglobin 12.4 G/DL (14.2-18.0) L Hematocrit 37.5 % (42.0-52.0) L Mean Corpuscular Volume 84 FL (80-99) Mean Corpuscular Hemoglobin 27.6 PG (27.0-31.0) Mean Corpuscular Hemoglobin Concent 33.0 G/DL (32.0-36.0) Red Cell Distribution Width 17.4 % (11.6-14.8) H Platelet Count 256 K/UL (150-450) Mean Platelet Volume 6.8 FL (6.5-10.1) Neutrophils (%) (Auto) 81.4 % (45.0-75.0) H Lymphocytes (%) (Auto) 10.4 % (20.0-45.0) L Monocytes (%) (Auto) 7.4 % (1.0-10.0) Eosinophils (%) (Auto) 0.0 % (0.0-3.0) Basophils (%) (Auto) 0.8 % (0.0-2.0) Sodium Level 143 MMOL/L (136-145) Potassium Level 4.3 MMOL/L (3.5-5.1) Chloride Level 108 MMOL/L (98-107) H Carbon Dioxide Level 24 MMOL/L (21-32) Anion Gap 11 mmol/L (5-15) Blood Urea Nitrogen 45 mg/dL (7-18) H Creatinine 1.6 MG/DL (0.55-1.30) H Estimat Glomerular Filtration Rate 52.4 mL/min (>60) Glucose Level 132 MG/DL (74-106) H Calcium Level 7.7 MG/DL (8.5-10.1) L Phosphorus Level 3.9 MG/DL (2.5-4.9) Magnesium Level 2.5 MG/DL (1.8-2.4) H Total Bilirubin 0.2 MG/DL (0.2-1.0) Aspartate Amino Transf (AST/SGOT) 17 U/L (15-37) Alanine Aminotransferase (ALT/SGPT) 14 U/L (12-78) Alkaline Phosphatase 94 U/L (46-116) Total Protein 7.0 G/DL (6.4-8.2) Albumin 3.1 G/DL (3.4-5.0) L Globulin 3.9 g/dL Albumin/Globulin Ratio 0.8 (1.0-2.7) L Current Medications Medications (Trade) Dose Ordered Sig/Aminata Route PRN Reason Start Time Stop Time Status Last Admin Dose Admin Albuterol/ Ipratropium (Albuterol/ Ipratropium) 3 ml Q4H PRN HHN dyspnea 03/25/18 11:30 03/27/18 11:29 03/25/18 12:47 Amlodipine Besylate (Norvasc) 10 mg DAILY ORAL 03/26/18 09:00 04/22/18 08:59 Dextrose (Dextrose 50%) 25 ml STAT PRN IV Hypoglycemia 03/25/18 11:30 04/24/18 11:29 Dextrose (Dextrose 50%) 50 ml STAT PRN IV Hypoglycemia 03/25/18 11:30 04/24/18 11:29 Heparin Sodium (Porcine) (Heparin 5000 units/ml) 5,000 units EVERY 12 HOURS SUBQ 03/25/18 21:00 04/21/18 20:59 Hydromorphone HCl (Dilaudid) 3 mg Q3H PRN IVP Severe Pain (7-10) 03/25/18 12:00 03/29/18 17:59 03/25/18 13:46 Levetiracetam (Keppra) 500 mg EVERY 12 HOURS ORAL 03/25/18 21:00 04/21/18 20:59 Levofloxacin (Levaquin) 250 mg QHS ORAL 03/25/18 21:00 03/26/18 23:59 Lorazepam (Ativan 2mg/ml 1ml) 0.5 mg Q4H PRN IV For Anxiety 03/25/18 12:30 03/29/18 08:29 Methylprednisolone Sodium Succinate (Solu-MEDROL) 30 mg DAILY IVP 03/26/18 09:00 04/21/18 11:59 Mirtazapine (Remeron) 15 mg BEDTIME ORAL 03/25/18 21:00 04/23/18 20:59 Ondansetron HCl (Zofran) 4 mg Q6H PRN IVP Nausea & Vomiting 03/25/18 12:00 04/21/18 11:59 Promethazine HCl/ Codeine (Phenergan with Codeine) 5 ml Q6H PRN ORAL cough 03/25/18 11:30 04/21/18 11:29 Theophylline (Wilfrido-Dur) 100 mg EVERY 12 HOURS ORAL 03/25/18 21:00 04/21/18 20:59 Jessica Parry M.D. March 25, 2018 15:51
[2018-03-25 16:00] VITALS: BP 101/53
--- NOTE | 2018-03-25 19:37 | Cardiology Progress Note ---
Assessment/Plan Assessment/Plan 1. Atypical chest pain. 2. History of prior multiple admissions for chest pain. 3. Coronary artery disease status post coronary bypass grafting history. 4. Chronic obstructive pulmonary disease. 5. Reported nausea, vomiting, and diarrhea. 6. Cellulitis of the lower extremities. 7. Renal insuf trop not reach threshold for ami set by explosive man and in light of renal insuf of ? significance pain worse with position and left arm movment and with touch area ekg unchanged echo normal wall motion venous duplex of le neg for dvt off tlel contienu abx Subjective Cardiovascular: Reports: chest pain; Denies: lightheadedness Respiratory: Reports: shortness of breath Gastrointestinal/Abdominal: Denies: abdominal pain Genitourinary: Denies: burning Subjective he still has "pain like a mother......er" Objective Last 24 Hour Vital Signs Date Time Temp Pulse Resp B/P (MAP) Pulse Ox O2 Delivery O2 Flow Rate FiO2 03/25/18 16:38 96 18 Room Air 21 03/25/18 16:29 96 18 Room Air 21 03/25/18 16:00 98.8 96 18 101/53 97 Room Air 98.8 03/25/18 12:54 98 18 Room Air 21 03/25/18 12:44 94 18 Room Air 21 03/25/18 12:00 98.5 90 18 144/66 95 Room Air 98.5 03/25/18 11:01 97.1 03/25/18 10:31 97.1 03/25/18 08:53 91 123/65 03/25/18 08:00 97.1 91 19 123/65 93 97.1 03/25/18 07:53 97 2 Room Air 21 03/25/18 07:50 99 20 99 Room Air 21 03/25/18 07:40 97 18 94 Room Air 21 03/25/18 04:00 97.1 89 18 138/61 94 97.1 03/25/18 03:41 90 03/25/18 00:00 97.2 100 20 136/66 93 97.2 03/24/18 23:50 99 03/24/18 20:32 78 18 96 Room Air 21 03/24/18 20:32 80 20 98 Room Air 21 03/24/18 20:00 97.3 82 20 131/68 95 97.3 03/24/18 20:00 78 16 Room Air 21 03/24/18 19:49 105 General Appearance: no apparent distress, alert Neck: supple Cardiovascular: normal rate, regular rhythm Respiratory/Chest: decreased breath sounds - effort dependent Abdomen: normal bowel sounds, non tender, soft Extremities: trace edema - righ legg looks better Intake and Output 03/24/18 03/25/18 19:00 07:00 Intake Total 1000 ml Balance 1000 ml Intake Oral 1000 ml # Voids 2 1 # Bowel Movements 2 Laboratory Tests Test 03/25/18 06:30 White Blood Count 9.0 K/UL (4.8-10.8) Red Blood Count 4.49 M/UL (4.70-6.10) L Hemoglobin 12.4 G/DL (14.2-18.0) L Hematocrit 37.5 % (42.0-52.0) L Mean Corpuscular Volume 84 FL (80-99) Mean Corpuscular Hemoglobin 27.6 PG (27.0-31.0) Mean Corpuscular Hemoglobin Concent 33.0 G/DL (32.0-36.0) Red Cell Distribution Width 17.4 % (11.6-14.8) H Platelet Count 256 K/UL (150-450) Mean Platelet Volume 6.8 FL (6.5-10.1) Neutrophils (%) (Auto) 81.4 % (45.0-75.0) H Lymphocytes (%) (Auto) 10.4 % (20.0-45.0) L Monocytes (%) (Auto) 7.4 % (1.0-10.0) Eosinophils (%) (Auto) 0.0 % (0.0-3.0) Basophils (%) (Auto) 0.8 % (0.0-2.0) Sodium Level 143 MMOL/L (136-145) Potassium Level 4.3 MMOL/L (3.5-5.1) Chloride Level 108 MMOL/L (98-107) H Carbon Dioxide Level 24 MMOL/L (21-32) Anion Gap 11 mmol/L (5-15) Blood Urea Nitrogen 45 mg/dL (7-18) H Creatinine 1.6 MG/DL (0.55-1.30) H Estimat Glomerular Filtration Rate 52.4 mL/min (>60) Glucose Level 132 MG/DL (74-106) H Calcium Level 7.7 MG/DL (8.5-10.1) L Phosphorus Level 3.9 MG/DL (2.5-4.9) Magnesium Level 2.5 MG/DL (1.8-2.4) H Total Bilirubin 0.2 MG/DL (0.2-1.0) Aspartate Amino Transf (AST/SGOT) 17 U/L (15-37) Alanine Aminotransferase (ALT/SGPT) 14 U/L (12-78) Alkaline Phosphatase 94 U/L (46-116) Total Protein 7.0 G/DL (6.4-8.2) Albumin 3.1 G/DL (3.4-5.0) L Globulin 3.9 g/dL Albumin/Globulin Ratio 0.8 (1.0-2.7) L Microbiology Date/Time Source Procedure Growth Status 03/23/18 21:40 Nasopharynx Influenza Types A,B Antigen (JEROME) - Final Complete 03/23/18 12:30 Ankle Right Gram Stain - Final Resulted 03/23/18 12:30 Ankle Right Wound Culture Pending Resulted AGUSTO STARKEY March 25, 2018 19:37
[2018-03-25 20:10] VITALS: BP 146/69
[2018-03-25] MEDS ORDERED: Solu-MEDROL 40mg Inj IVP SCH (21:00)
[2018-03-25] MEDS ORDERED: Levofloxacin 500mg tab ORAL SCH (21:00)
[2018-03-26] VITALS: BP 124/63
[2018-03-26 04:00] VITALS: BP 154/64
[2018-03-26 08:00] VITALS: BP 109/68
[2018-03-26] MEDS: Albuterol/Ipratropium 3ml neb HHN PRN ×4 (08:01→20:42)
[2018-03-26 08:07] LABS: BASOPHILS % (AUTO) 4.8 % (0.0-2.0); EOSINOPHILS % (AUTO) 0.2 % (0.0-3.0); HEMATOCRIT 40.6 % (42.0-52.0); HEMOGLOBIN 13.1 G/DL (14.2-18.0); LYMPHOCYTES % (AUTO) 26.4 % (20.0-45.0); MEAN CORPUSCULAR VOLUME 84 FL (80-99); NEUTROPHILS % (AUTO) 60.6 % (45.0-75.0); PLATELET COUNT 259 K/UL (150-450); RED BLOOD COUNT 4.84 M/UL (4.70-6.10); RED CELL DISTRIBUTION WIDTH 17.1 % (11.6-14.8)
[2018-03-26] MEDS: Theophylline ER 100mg ORAL SCH ×2 (08:13→20:56)
[2018-03-26] MEDS: Heparin 5000 units/ml inj SUBQ SCH ×2 (08:15→20:58)
[2018-03-26 08:21] LABS: ALANINE AMINOTRANSFERASE 23 U/L (12-78); ALBUMIN 3.1 G/DL (3.4-5.0); ALBUMIN/GLOBULIN RATIO 0.8 (1.0-2.7); ALKALINE PHOSPHATASE 90 U/L (46-116); ANION GAP 10 mmol/L (5-15); ASPARTATE AMINO TRANSFERASE 18 U/L (15-37); BILIRUBIN,TOTAL 0.3 MG/DL (0.2-1.0); BLOOD UREA NITROGEN 35 mg/dL (7-18); CALCIUM 8.2 MG/DL (8.5-10.1); CARBON DIOXIDE 25 MMOL/L (21-32); CHLORIDE 108 MMOL/L (98-107); CREATININE 1.4 MG/DL (0.55-1.30); PHOSPHORUS 3.6 MG/DL (2.5-4.9); POTASSIUM 4.1 MMOL/L (3.5-5.1); SODIUM 143 MMOL/L (136-145)
[2018-03-26] MEDS ORDERED: Solu-MEDROL 40mg Inj IVP SCH (09:00)
--- NOTE | 2018-03-26 11:36 | General Progress Note ---
Assessment/Plan Status: stable, progressing Assessment/Plan dc restoril remeron 15mg qhs script in chart Subjective Date patient seen: March 26, 2018 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: Reports: anxiety, depressed Allergies: Coded Allergies: EGG (Verified Allergy, Unknown, 09/22/15) MEPERIDINE (Verified Allergy, Unknown, 12/21/10) MORPHINE (Verified Allergy, Unknown, Shortness of Breath, 01/24/14) itching,shortness of breath,dyspnea NITROGLYCERIN (Verified Allergy, Unknown, hives, 02/18/17) Subjective the pt didn't receive his remeron last night, therefore didnt sleep well. He is asking for a script after dc Objective Last 24 Hour Vital Signs Date Time Temp Pulse Resp B/P (MAP) Pulse Ox O2 Delivery O2 Flow Rate FiO2 03/26/18 08:13 94 109/68 03/26/18 08:01 96 18 Room Air 21 03/26/18 08:01 96 18 Room Air 21 03/26/18 08:00 98.3 94 17 109/68 99 98.3 03/26/18 04:00 98.1 94 20 154/64 95 98.1 03/26/18 00:00 98.3 101 16 124/63 96 98.3 03/25/18 20:10 98.3 107 17 146/69 94 98.3 03/25/18 19:00 94 20 Room Air 21 03/25/18 16:38 96 18 Room Air 21 03/25/18 16:29 96 18 Room Air 21 03/25/18 16:00 98.8 96 18 101/53 97 Room Air 98.8 03/25/18 12:54 98 18 Room Air 21 03/25/18 12:44 94 18 Room Air 21 03/25/18 12:00 98.5 90 18 144/66 95 Room Air 98.5 Intake and Output 03/25/18 03/26/18 19:00 07:00 Output Total 500 ml Balance -500 ml Output Urine Total 500 ml # Voids 1 Laboratory Tests 03/26/18 07:05: White Blood Count 8.0, Red Blood Count 4.84, Hemoglobin 13.1L, Hematocrit 40.6L , Mean Corpuscular Volume 84, Mean Corpuscular Hemoglobin 27.0, Mean Corpuscular Hemoglobin Concent 32.3, Red Cell Distribution Width 17.1H, Platelet Count 259, Mean Platelet Volume 6.8, Neutrophils (%) (Auto) 60.6, Lymphocytes (%) (Auto) 26.4, Monocytes (%) (Auto) 8.0, Eosinophils (%) (Auto) 0.2, Basophils (%) (Auto) 4.8H, Sodium Level 143, Potassium Level 4.1, Chloride Level 108H, Carbon Dioxide Level 25, Anion Gap 10, Blood Urea Nitrogen 35H, Creatinine 1.4H, Estimat Glomerular Filtration Rate > 60, Glucose Level 86, Calcium Level 8.2L, Phosphorus Level 3.6, Magnesium Level 2.4, Total Bilirubin 0.3, Aspartate Amino Transf (AST/SGOT) 18, Alanine Aminotransferase (ALT/SGPT) 23, Alkaline Phosphatase 90, Total Protein 7.0, Albumin 3.1L, Globulin 3.9, Albumin/Globulin Ratio 0.8L Height (Feet): 6 Height (Inches): 0.00 Weight (Pounds): 140 General Appearance: WD/WN, no apparent distress, alert Neurologic: oriented x 3, responsive, normal mood/affect Rachael Buckley M.D. March 26, 2018 11:36
[2018-03-26 12:00] VITALS: BP 126/81
--- NOTE | 2018-03-26 14:18 | Pulmonology Progress Note ---
Assessment/Plan Problems: (1) Acute bronchitis (2) COPD exacerbation (3) Atypical chest pain (4) Diabetic foot ulcer (5) Emphysema lung (6) Severe malnutrition (7) DM (diabetes mellitus) Assessment/Plan d/w psychiatry will start Remeron dc steroids to respiratory treatment check cultures, no sputum yet check troponin, not significant echo noted cardio to see Podiatry to see pt/ot dc in am Subjective ROS Limited/Unobtainable: No Constitutional: Reports: no symptoms HEENT: Repors: no symptoms Respiratory: Reports: no symptoms Allergies: Coded Allergies: EGG (Verified Allergy, Unknown, 09/22/15) MEPERIDINE (Verified Allergy, Unknown, 12/21/10) MORPHINE (Verified Allergy, Unknown, Shortness of Breath, 01/24/14) itching,shortness of breath,dyspnea NITROGLYCERIN (Verified Allergy, Unknown, hives, 02/18/17) Objective Last 24 Hour Vital Signs Date Time Temp Pulse Resp B/P (MAP) Pulse Ox O2 Delivery O2 Flow Rate FiO2 03/26/18 12:00 97.4 105 19 126/81 98 97.4 03/26/18 11:58 95 18 Room Air 21 03/26/18 08:13 94 109/68 03/26/18 08:01 96 18 Room Air 21 03/26/18 08:01 96 18 Room Air 21 03/26/18 08:00 98.3 94 17 109/68 99 98.3 03/26/18 04:00 98.1 94 20 154/64 95 98.1 03/26/18 00:00 98.3 101 16 124/63 96 98.3 03/25/18 20:10 98.3 107 17 146/69 94 98.3 03/25/18 19:00 94 20 Room Air 21 03/25/18 16:38 96 18 Room Air 21 03/25/18 16:29 96 18 Room Air 21 03/25/18 16:00 98.8 96 18 101/53 97 Room Air 98.8 Intake and Output 03/25/18 03/26/18 19:00 07:00 Output Total 500 ml Balance -500 ml Output Urine Total 500 ml # Voids 1 General Appearance: cachetic HEENT: normocephalic, atraumatic Respiratory/Chest: chest wall non-tender, lungs clear Cardiovascular: normal peripheral pulses, normal rate 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: no motor/sensory deficits, abnormal gait Microbiology Date/Time Source Procedure Growth Status 03/23/18 21:40 Nasopharynx Influenza Types A,B Antigen (JEROME) - Final Complete Laboratory Tests 03/26/18 07:05: White Blood Count 8.0, Red Blood Count 4.84, Hemoglobin 13.1L, Hematocrit 40.6L , Mean Corpuscular Volume 84, Mean Corpuscular Hemoglobin 27.0, Mean Corpuscular Hemoglobin Concent 32.3, Red Cell Distribution Width 17.1H, Platelet Count 259, Mean Platelet Volume 6.8, Neutrophils (%) (Auto) 60.6, Lymphocytes (%) (Auto) 26.4, Monocytes (%) (Auto) 8.0, Eosinophils (%) (Auto) 0.2, Basophils (%) (Auto) 4.8H, Sodium Level 143, Potassium Level 4.1, Chloride Level 108H, Carbon Dioxide Level 25, Anion Gap 10, Blood Urea Nitrogen 35H, Creatinine 1.4H, Estimat Glomerular Filtration Rate > 60, Glucose Level 86, Calcium Level 8.2L, Phosphorus Level 3.6, Magnesium Level 2.4, Total Bilirubin 0.3, Aspartate Amino Transf (AST/SGOT) 18, Alanine Aminotransferase (ALT/SGPT) 23, Alkaline Phosphatase 90, Total Protein 7.0, Albumin 3.1L, Globulin 3.9, Albumin/Globulin Ratio 0.8L Current Medications Medications (Trade) Dose Ordered Sig/Aminata Route PRN Reason Start Time Stop Time Status Last Admin Dose Admin Albuterol/ Ipratropium (Albuterol/ Ipratropium) 3 ml EVERY 3 HOURS PRN HHN DYSPNEA 03/25/18 16:15 03/30/18 16:14 03/26/18 11:58 Amlodipine Besylate (Norvasc) 10 mg DAILY ORAL 03/26/18 09:00 04/22/18 08:59 03/26/18 08:13 Dextrose (Dextrose 50%) 25 ml STAT PRN IV Hypoglycemia 03/25/18 11:30 04/24/18 11:29 Dextrose (Dextrose 50%) 50 ml STAT PRN IV Hypoglycemia 03/25/18 11:30 04/24/18 11:29 Heparin Sodium (Porcine) (Heparin 5000 units/ml) 5,000 units EVERY 12 HOURS SUBQ 03/25/18 21:00 04/21/18 20:59 03/26/18 08:15 Hydromorphone HCl (Dilaudid) 3 mg Q3H PRN IVP Severe Pain (7-10) 03/25/18 12:00 03/29/18 17:59 03/26/18 11:24 Levetiracetam (Keppra) 500 mg EVERY 12 HOURS ORAL 03/25/18 21:00 04/21/18 20:59 03/26/18 08:14 Levofloxacin (Levaquin) 250 mg QHS ORAL 03/25/18 21:00 03/26/18 23:59 03/25/18 21:02 Lorazepam (Ativan 2mg/ml 1ml) 0.5 mg Q4H PRN IV For Anxiety 03/25/18 12:30 03/29/18 08:29 Methylprednisolone Sodium Succinate (Solu-MEDROL) 30 mg DAILY IVP 03/26/18 09:00 04/21/18 11:59 03/26/18 08:14 Mirtazapine (Remeron) 15 mg BEDTIME ORAL 03/25/18 21:00 04/23/18 20:59 03/25/18 21:02 Ondansetron HCl (Zofran) 4 mg Q6H PRN IVP Nausea & Vomiting 03/25/18 12:00 04/21/18 11:59 Promethazine HCl/ Codeine (Phenergan with Codeine) 5 ml Q6H PRN ORAL cough 03/25/18 11:30 04/21/18 11:29 Theophylline (Wilfrido-Dur) 100 mg EVERY 12 HOURS ORAL 03/25/18 21:00 04/21/18 20:59 03/26/18 08:13 Jessie Magana MD March 26, 2018 14:18
--- NOTE | 2018-03-26 14:30 | Diagnostic Imaging Report ---
Indication: Pain Comparison: None Findings: 3 views of the left foot were obtained. There is deformity of the fifth MTP joint which may be on the basis of previous surgery or possibly an old trauma or erosion. Bones are osteopenic. There is an old stress fracture involving the second metatarsal shaft. This appears healed. No soft tissue air identified. No acute fracture identified. IMPRESSION: No acute injury identified. Abnormal fifth MPJ joint which may be on the basis of previous surgery/trauma or old erosive process. Osteoporosis
--- NOTE | 2018-03-26 15:03 | Infectious Diseases Prog Note ---
Assessment/Plan Assessment/Plan Assessment: COPD exacerbation -CXR: no acute process -influenza sc neg Afebrile, no leukocytosis R Ankle chronic ulcer- healing, no signs of infection -R foot xray: No acute injury identified. Abnormal fifth MPJ joint which may be on the basis of previous surgery/trauma or old erosive process. Osteoporosis Troponinemia, improving- ?demand ischemia HTN severe malnutrition MDD tobacco abuse seizure disorder emphysema DM2 CAD s/p CABG COPD bedbound Plan: -Continue PO Levaquin abx d#03/28 for COPD exacerbation -03/23 SP Zosyn #2 -monitor Qtc -Monitor CBC/BMP, temperatures -aspiration precautions -wound care/prevention per hops protocol Thank you for this consultation. Will continue to follow along with you. Discussed with RN Subjective Allergies: Coded Allergies: EGG (Verified Allergy, Unknown, 09/22/15) MEPERIDINE (Verified Allergy, Unknown, 12/21/10) MORPHINE (Verified Allergy, Unknown, Shortness of Breath, 01/24/14) itching,shortness of breath,dyspnea NITROGLYCERIN (Verified Allergy, Unknown, hives, 02/18/17) Subjective afebrile no leukocytosis at RA Objective Vital Signs Last 24 Hour Vital Signs Date Time Temp Pulse Resp B/P (MAP) Pulse Ox O2 Delivery O2 Flow Rate FiO2 03/26/18 12:00 97.4 105 19 126/81 98 97.4 03/26/18 11:58 95 18 Room Air 21 03/26/18 08:13 94 109/68 03/26/18 08:01 96 18 Room Air 21 03/26/18 08:01 96 18 Room Air 21 03/26/18 08:00 98.3 94 17 109/68 99 98.3 03/26/18 04:00 98.1 94 20 154/64 95 98.1 03/26/18 00:00 98.3 101 16 124/63 96 98.3 03/25/18 20:10 98.3 107 17 146/69 94 98.3 03/25/18 19:00 94 20 Room Air 21 03/25/18 16:38 96 18 Room Air 21 03/25/18 16:29 96 18 Room Air 21 03/25/18 16:00 98.8 96 18 101/53 97 Room Air 98.8 Height (Feet): 6 Height (Inches): 0.00 Weight (Pounds): 140 Objective General Appearance: cachetic Lines, tubes and drains: peripheral HEENT: normocephalic Respiratory/Chest: chest wall non-tender, rhonchi - left, rhonchi - right Breasts: no masses Cardiovascular/Chest: normal peripheral pulses, normal rate, regular rhythm Abdomen: normal bowel sounds, soft Microbiology Date/Time Source Procedure Growth Status 03/23/18 21:40 Nasopharynx Influenza Types A,B Antigen (JEROME) - Final Complete Laboratory Tests Test 03/26/18 07:05 White Blood Count 8.0 K/UL (4.8-10.8) Red Blood Count 4.84 M/UL (4.70-6.10) Hemoglobin 13.1 G/DL (14.2-18.0) L Hematocrit 40.6 % (42.0-52.0) L Mean Corpuscular Volume 84 FL (80-99) Mean Corpuscular Hemoglobin 27.0 PG (27.0-31.0) Mean Corpuscular Hemoglobin Concent 32.3 G/DL (32.0-36.0) Red Cell Distribution Width 17.1 % (11.6-14.8) H Platelet Count 259 K/UL (150-450) Mean Platelet Volume 6.8 FL (6.5-10.1) Neutrophils (%) (Auto) 60.6 % (45.0-75.0) Lymphocytes (%) (Auto) 26.4 % (20.0-45.0) Monocytes (%) (Auto) 8.0 % (1.0-10.0) Eosinophils (%) (Auto) 0.2 % (0.0-3.0) Basophils (%) (Auto) 4.8 % (0.0-2.0) H Sodium Level 143 MMOL/L (136-145) Potassium Level 4.1 MMOL/L (3.5-5.1) Chloride Level 108 MMOL/L (98-107) H Carbon Dioxide Level 25 MMOL/L (21-32) Anion Gap 10 mmol/L (5-15) Blood Urea Nitrogen 35 mg/dL (7-18) H Creatinine 1.4 MG/DL (0.55-1.30) H Estimat Glomerular Filtration Rate > 60 mL/min (>60) Glucose Level 86 MG/DL (74-106) Calcium Level 8.2 MG/DL (8.5-10.1) L Phosphorus Level 3.6 MG/DL (2.5-4.9) Magnesium Level 2.4 MG/DL (1.8-2.4) Total Bilirubin 0.3 MG/DL (0.2-1.0) Aspartate Amino Transf (AST/SGOT) 18 U/L (15-37) Alanine Aminotransferase (ALT/SGPT) 23 U/L (12-78) Alkaline Phosphatase 90 U/L (46-116) Total Protein 7.0 G/DL (6.4-8.2) Albumin 3.1 G/DL (3.4-5.0) L Globulin 3.9 g/dL Albumin/Globulin Ratio 0.8 (1.0-2.7) L Current Medications Medications (Trade) Dose Ordered Sig/Aminata Route PRN Reason Start Time Stop Time Status Last Admin Dose Admin Albuterol/ Ipratropium (Albuterol/ Ipratropium) 3 ml EVERY 3 HOURS PRN HHN DYSPNEA 03/25/18 16:15 03/30/18 16:14 03/26/18 11:58 Amlodipine Besylate (Norvasc) 10 mg DAILY ORAL 03/26/18 09:00 04/22/18 08:59 03/26/18 08:13 Dextrose (Dextrose 50%) 25 ml STAT PRN IV Hypoglycemia 03/25/18 11:30 04/24/18 11:29 Dextrose (Dextrose 50%) 50 ml STAT PRN IV Hypoglycemia 03/25/18 11:30 04/24/18 11:29 Heparin Sodium (Porcine) (Heparin 5000 units/ml) 5,000 units EVERY 12 HOURS SUBQ 03/25/18 21:00 04/21/18 20:59 03/26/18 08:15 Hydromorphone HCl (Dilaudid) 3 mg Q3H PRN IVP Severe Pain (7-10) 03/25/18 12:00 03/29/18 17:59 03/26/18 14:54 Levetiracetam (Keppra) 500 mg EVERY 12 HOURS ORAL 03/25/18 21:00 04/21/18 20:59 03/26/18 08:14 Levofloxacin (Levaquin) 250 mg QHS ORAL 03/25/18 21:00 03/26/18 23:59 03/25/18 21:02 Lorazepam (Ativan 2mg/ml 1ml) 0.5 mg Q4H PRN IV For Anxiety 03/25/18 12:30 03/29/18 08:29 Mirtazapine (Remeron) 15 mg BEDTIME ORAL 03/25/18 21:00 04/23/18 20:59 03/25/18 21:02 Ondansetron HCl (Zofran) 4 mg Q6H PRN IVP Nausea & Vomiting 03/25/18 12:00 04/21/18 11:59 Promethazine HCl/ Codeine (Phenergan with Codeine) 5 ml Q6H PRN ORAL cough 03/25/18 11:30 04/21/18 11:29 Theophylline (Wilfrido-Dur) 100 mg EVERY 12 HOURS ORAL 03/25/18 21:00 04/21/18 20:59 03/26/18 08:13 Jessica Parry M.D. March 26, 2018 15:03
--- NOTE | 2018-03-26 15:29 | Podiatric Progress Note ---
Assessment/Plan Patient Benjamin Ring is a 67 year old male who was admitted on Mar 22, 2018 at 06:05 with Assessment/Plan A/ 1) Pressure ulcer right lateral ankle - significantly improved since last admission 2) PAD 3) DM 4) Malunion of fracture right lower extremity 5) h/o osteomyelitis 6) Pain in left foot toes x 1 mth P/ 1) Cont wound care 2) X-ray of left foot - reviewed. no fracture. no acute process. Patient confusing venous ultrasound done on right LE. He is incorrect thinking x-ray done on wrong foot. 3) Will follow Subjective Allergies: Coded Allergies: EGG (Verified Allergy, Unknown, 09/22/15) MEPERIDINE (Verified Allergy, Unknown, 12/21/10) MORPHINE (Verified Allergy, Unknown, Shortness of Breath, 01/24/14) itching,shortness of breath,dyspnea NITROGLYCERIN (Verified Allergy, Unknown, hives, 02/18/17) Subjective Patient is resting comfortably. Patient claims x-ray was taken of the wrong foot. Objective Exam Last 24 Hour Vital Signs Date Time Temp Pulse Resp B/P (MAP) Pulse Ox O2 Delivery O2 Flow Rate FiO2 03/26/18 15:24 93 18 94 Room Air 21 03/26/18 12:00 97.4 105 19 126/81 98 97.4 03/26/18 11:58 95 18 Room Air 21 03/26/18 08:13 94 109/68 03/26/18 08:01 96 18 Room Air 21 03/26/18 08:01 96 18 Room Air 21 03/26/18 08:00 98.3 94 17 109/68 99 98.3 03/26/18 04:00 98.1 94 20 154/64 95 98.1 03/26/18 00:00 98.3 101 16 124/63 96 98.3 03/25/18 20:10 98.3 107 17 146/69 94 98.3 03/25/18 19:00 94 20 Room Air 21 03/25/18 16:38 96 18 Room Air 21 03/25/18 16:29 96 18 Room Air 21 03/25/18 16:00 98.8 96 18 101/53 97 Room Air 98.8 Laboratory Tests Test 03/26/18 07:05 White Blood Count 8.0 K/UL (4.8-10.8) Red Blood Count 4.84 M/UL (4.70-6.10) Hemoglobin 13.1 G/DL (14.2-18.0) L Hematocrit 40.6 % (42.0-52.0) L Mean Corpuscular Volume 84 FL (80-99) Mean Corpuscular Hemoglobin 27.0 PG (27.0-31.0) Mean Corpuscular Hemoglobin Concent 32.3 G/DL (32.0-36.0) Red Cell Distribution Width 17.1 % (11.6-14.8) H Platelet Count 259 K/UL (150-450) Mean Platelet Volume 6.8 FL (6.5-10.1) Neutrophils (%) (Auto) 60.6 % (45.0-75.0) Lymphocytes (%) (Auto) 26.4 % (20.0-45.0) Monocytes (%) (Auto) 8.0 % (1.0-10.0) Eosinophils (%) (Auto) 0.2 % (0.0-3.0) Basophils (%) (Auto) 4.8 % (0.0-2.0) H Sodium Level 143 MMOL/L (136-145) Potassium Level 4.1 MMOL/L (3.5-5.1) Chloride Level 108 MMOL/L (98-107) H Carbon Dioxide Level 25 MMOL/L (21-32) Anion Gap 10 mmol/L (5-15) Blood Urea Nitrogen 35 mg/dL (7-18) H Creatinine 1.4 MG/DL (0.55-1.30) H Estimat Glomerular Filtration Rate > 60 mL/min (>60) Glucose Level 86 MG/DL (74-106) Calcium Level 8.2 MG/DL (8.5-10.1) L Phosphorus Level 3.6 MG/DL (2.5-4.9) Magnesium Level 2.4 MG/DL (1.8-2.4) Total Bilirubin 0.3 MG/DL (0.2-1.0) Aspartate Amino Transf (AST/SGOT) 18 U/L (15-37) Alanine Aminotransferase (ALT/SGPT) 23 U/L (12-78) Alkaline Phosphatase 90 U/L (46-116) Total Protein 7.0 G/DL (6.4-8.2) Albumin 3.1 G/DL (3.4-5.0) L Globulin 3.9 g/dL Albumin/Globulin Ratio 0.8 (1.0-2.7) L Microbiology Date/Time Source Procedure Growth Status 03/23/18 21:40 Nasopharynx Influenza Types A,B Antigen (JEROME) - Final Complete 03/23/18 12:30 Ankle Right Gram Stain - Final Resulted 03/23/18 12:30 Wound Culture - Preliminary Diphtheroids Resulted Dermatological Dermatological Narrative left foot rigid phalangeal joints Left foot no open wounds Right foot no open wounds right ankle healing Dave Fowler DPBlanca March 26, 2018 15:29
[2018-03-26 16:00] VITALS: BP 127/62
[2018-03-26 20:00] VITALS: BP 143/76
[2018-03-27] VITALS: BP 150/63
[2018-03-27 04:00] VITALS: BP 130/65
[2018-03-27 08:00] VITALS: BP 134/67
[2018-03-27] MEDS ORDERED: MIRTAZAPINE15 MG ORAL (08:22)
[2018-03-27 09:16] VITALS: BP 134/67
[2018-03-27] MEDS: Theophylline ER 100mg ORAL SCH (09:16)
[2018-03-27] MEDS: Heparin 5000 units/ml inj SUBQ SCH (09:18)
--- NOTE | 2018-03-27 11:59 | General Progress Note ---
Assessment/Plan Status: stable, progressing Assessment/Plan mdd anxiety d/o Remeron 15mg qhs script in chart Subjective Date patient seen: March 27, 2018 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: Reports: anxiety, depressed Allergies: Coded Allergies: EGG (Verified Allergy, Unknown, 09/22/15) MEPERIDINE (Verified Allergy, Unknown, 12/21/10) MORPHINE (Verified Allergy, Unknown, Shortness of Breath, 01/24/14) itching,shortness of breath,dyspnea NITROGLYCERIN (Verified Allergy, Unknown, hives, 02/18/17) Subjective the pt slept well. No side effects. Objective Last 24 Hour Vital Signs Date Time Temp Pulse Resp B/P (MAP) Pulse Ox O2 Delivery O2 Flow Rate FiO2 03/27/18 09:16 16 134/67 03/27/18 09:02 16 18 Room Air 21 03/27/18 08:00 98.0 104 20 134/67 98 98.0 03/27/18 04:00 97.7 104 20 130/65 98 97.7 03/27/18 00:00 98.3 107 20 150/63 98 98.3 03/26/18 20:44 111 18 99 Room Air 21 03/26/18 20:40 103 18 98 Room Air 21 03/26/18 20:00 98.5 108 21 143/76 98 98.5 03/26/18 19:45 121 20 Room Air 21 03/26/18 16:00 97.6 111 18 127/62 97 97.6 03/26/18 15:29 94 18 96 Room Air 21 03/26/18 15:24 93 18 94 Room Air 21 03/26/18 12:00 97.4 105 19 126/81 98 97.4 03/26/18 11:58 95 18 Room Air 21 Intake and Output 03/26/18 03/27/18 19:00 07:00 Intake Total 1800 ml Output Total 450 ml Balance 1800 ml -450 ml Other 1800 ml Output Urine Total 450 ml # Voids 3 # Bowel Movements 1 Height (Feet): 6 Height (Inches): 0.00 Weight (Pounds): 140 General Appearance: WD/WN, no apparent distress, alert Neurologic: oriented x 3, responsive, depressed affect Rachael Buckley M.D. March 27, 2018 11:59
--- NOTE | 2018-03-30 08:47 | Discharge Summary ---
Discharge Summary Discharge Summary Discharge Summary DATE OF ADMISSION: 03/22/2018 DATE OF DISCHARGE: 03/28/2018 REASON FOR ADMISSION: 67 years old male with a past medical history significant for coronary artery disease with CABG, hypertension, COPD, seizure disorder presented to emergency department with a chief complaint of shortness of breath and chest pain. Onset of symptoms started in the last 2 days with increased cough and increased oxygenation needed. Breathing treatment at home did not help. Patient reported similar presentations in the past. Patient reported compliance with his medication regimen. Shortness of breath and chest pain worse when lying flat and with exertion. Patient still reports smoking. Denied fever ,chills , nausea, vomiting. Breathing treatment in ED somewhat improved symptoms. Vital signs indicated elevated blood pressure, no fever, tachycardia with heart rate of 108. Pulse oximetry was stable on room air. EKG revealed sinus tachycardia, no acute ischemic changes, no PVC, no ectopy. Chest x-ray revealed no acute cardiopulmonary disease but showed findings consistent with COPD. No leukocytosis, stable hemoglobin and hematocrit . Troponin -0.167 . Patient was diagnosed with acute COPD exacerbation and was admitted to telemetry floor for further management CONSULTANTS: plywood matcher Dr. Anaya MD specialist [facility] psychiatrist Dr. Buckley hand roller [facility]: Patient admitted to telemetry floor. Serial troponin were ordered, cardiology and evaluation was requested. Echocardiogram revealed ejection fraction of 60-65%, mild to moderate left ventricular hypertrophy, no evidence of pericardial effusion. Right ventricular systolic pressure of 38 consistent with mild pulmonary pulmonary hypertension. Trace mitral regurgitation. Troponin with minimal elevation, and the last two readings were negative. Per plywood matcher , troponin did not reach threshold for acute myocardial infarction and in lieu of renal insufficiency was of questionable significance ( creatinine 1.4-1.6 at baseline). EKG did not changed. Echocardiogram was stable, venous duplex of lower extremities was negative for acute DVT. Last myocardial perfusion scan in 2014 was normal. Chest pain was atypical. Pain was worse with position and left arm movement. According to plywood matcher, given that the pain was getting worse with let arm movement, position and touching , pointing out that the pain was probably of musculoskeletal origin. Patient subsequently transferred from telemetry floor to [facility] floor At the same time upon admission, the patient was started on treatment for acute COPD exacerbation and bronchitis. Supplemental oxygen provided as needed to keep pulse oximetry above 90%. Pulmonary toilet provided with nebulizing therapy around the clock and as needed. Patient was started on intravenous steroids with gradual tapering down, which were discontinued upon discharge. Patient was unable to provide sputum culture. Influenza screen test was negative. Patient was started on empiric antibiotic and completed 5 days course. ID closely followed. CXR revealed no acute cardiopulmonary pathology but findings were consistent with COPD. Antitussive provided as needed Patient was counseled on smoking cessation. Patient declined nicotine patch. Threat Analyst evaluated patient for chronic right lateral ankle ulcer. Ulcer was healing, no signs of infection. Right foot x-ray revealed no acute injury showed abnormal fifth MPJ joint which may be on the basis of previous surgery/ trauma or old erosive process. Pain management was addressed. Wound care was provided as per hand roller recommendations. Patient was working with physical andv occupational therapists. Fall precautions maintained. Blood pressure was managed with calcium channel rasta and remained stable. Seizure precautions maintained. No seizure activity while in the hospital. Keppra was continued. DVT prophylaxis provided. Bowel regimen instituted. Nutritional supplements were provided Psychiatrist closely followed and diagnosed patient with major depressive disorder and anxiety disorder. Patient was started on Remeron. Reinforced compliance with medication. Patient was stable for discharge home and outpatient follow-up with a primary care provider next week. FINAL DIAGNOSES: Acute COPD exacerbation Acute bronchitis Atypical chest pain, likely of musculoskeletal origin Right lateral ankle chronic ulcer( no evidence of infection) with history of osteomyelitis, status post treatment Peripheral arterial disease Hypertension Seizure disorder Tobacco abuse r Renal insufficiency Severe malnutrition Major depressive disorder Anxiety disorder DISCHARGE MEDICATIONS: See Medication Reconciliation list. DISCHARGE INSTRUCTIONS: Patient was discharged home, follow-up with the primary care provider next week I have been assigned to dictate discharge summary for this account. I was not involved in the patient's management. Wayne Alvarezst. joseph's regional medical centerKristine Arroyo NP March 30, 2018 08:47
--- NOTE | 2018-03-30 10:10 | Diagnostic Imaging Report ---
APPROVED REPORT CPT Code: 80383 Present Symptoms Comments: RIGHT LEG PAIN. RIGHT LEG: Venous imaging reveals a patent deep venous system. There is no evidence of thrombus within the femoral, popliteal or tibial segments. The greater saphenous vein is also within normal limits. Doppler indicates normal spontaneous flow within these segments.
== END 2018-03-27 10:46 | disposition home or self-care (01) | DRG 140 ==
LOC: EMR 05:35 → 2E 06:05 → EDBEDREQ 06:36 → 4E 03-25 11:06
DX: J44.0 Chronic obstructive pulmonary disease with (acute) lower respiratory infection (principal); E43 Unspecified severe protein-calorie malnutrition; I27.20 Pulmonary hypertension, unspecified; L97.319 Non-pressure chronic ulcer of right ankle with unspecified severity; I10 Essential (primary) hypertension; J20.9 Acute bronchitis, unspecified; J44.1 Chronic obstructive pulmonary disease with (acute) exacerbation; R07.89 Other chest pain; I73.9 Peripheral vascular disease, unspecified; G40.909 Epilepsy, unspecified, not intractable, without status epilepticus; N28.9 Disorder of kidney and ureter, unspecified; F32.9 Major depressive disorder, single episode, unspecified; F41.9 Anxiety disorder, unspecified; I25.10 Atherosclerotic heart disease of native coronary artery without angina pectoris; Z95.1 Presence of aortocoronary bypass graft; E11.9 Type 2 diabetes mellitus without complications; Z88.6 Allergy status to analgesic agent; Z88.8 Allergy status to other drugs, medicaments and biological substances; Z87.891 Personal history of nicotine dependence; Z68.1 Body mass index [BMI] 19.9 or less, adult
CPT/HCPCS: 36415; 71045; 80053; 80299; 81003; 82550; 82553; 83735; 84100; 84484; 85007; 85025; 85651; 86710; 87070; 87205; 93005; 93306; 93970; 94640; 94664; 99285; J7620

== ENCOUNTER 2018-05-12 03:20 | Inpatient (IN) | payer MEDICARE, MEDICAID ==
[~2018-05-12] VITALS: Ht 185.4 cm; Wt 62.3 kg
[~2018-05-12 03:20] MED LIST changes: +MIRTAZAPINE15 MG ORAL
[2018-05-12 03:35] VITALS: BP 186/82
[2018-05-12] MEDS ORDERED: DiphenhydrAMINE 50mg/ml Inj IVP ONE (03:45)
[2018-05-12] MEDS ORDERED: Piperacillin/Tazobactam 3.375 GM in NS 110 ML IVPB ONE (03:45)
[2018-05-12] MEDS ORDERED: Morphine Sulfate 4mg/ml Inj IVP ONE (03:45)
--- NOTE | 2018-05-12 03:50 | Emergency Room Report ---
History of Present Illness General Chief Complaint: Chest Pain Source: Patient Present Illness HPI Is a 67-year-old male with multiple medical problem including COPD, previous CT with CABG, chronic pain. He presents with chest pain that's been ongoing for years but worse the last 3 days. No fever chills but no nausea no vomiting. Worse with motion. No radiation. The main reason he is here because of lower extremity swelling. Also has a chronic ulcer on the right ankle area. He said that's improving but the swelling is worse. No shortness of breath. Worse palpation. Has not changed the dressing the last few days. No drainage. Allergies: Coded Allergies: EGG (Verified Allergy, Unknown, 09/22/15) MEPERIDINE (Verified Allergy, Unknown, 12/21/10) MORPHINE (Verified Allergy, Unknown, Shortness of Breath, 01/24/14) itching,shortness of breath,dyspnea NITROGLYCERIN (Verified Allergy, Unknown, hives, 02/18/17) Patient History Past Medical History: see triage record, old chart reviewed, HTN, CT, CAD, COPD Past Surgical History: other Pertinent Family History: none Social History: Denies: smoking Immunizations: other Reviewed Nursing Documentation: PMH: Agreed; PSxH: Agreed Nursing Documentation-PMH Hx Cardiac Problems: Yes - CT Hx Hypertension: Yes Hx Pacemaker: No Hx Asthma: No Hx COPD: Yes Hx Diabetes: No Hx Cancer: No Hx Dialysis: No - kidney problems Hx Neurological Problems: Yes Hx Cerebrovascular Accident: No Hx Transient Ischemic Attacks: No Hx Alzheimer's Disease: No Hx Encephalitis: No Hx Seizures: Yes Hx Epilepsy: No Hx Multiple Sclerosis: No Hx Cerebral Palsy: No Hx Amyotrophic Lat Sclerosis: No Hx Guillian-[place] Syndrome: No Hx Paralysis: No Hx Peripheral Neuropathy: No Hx Spinal Cord Injury: No Hx Head Trauma: No Hx Traumatic Brain Injury: No Hx Memory Loss: No Hx Concentration Difficulty: No Hx Speech Problem: No Hx Tremors: Yes Hx Vertigo: No Hx Dizziness: No Hx Syncope: Yes Hx Headaches: Yes Hx Aphasia: No Hx Dysphasia: Yes Hx Numbness: No Hx Weakness: Yes Hx Fatigue: No Hx Neurologic Surgery: No Hx Brain Shunt: No Review of Systems Eye: Denies: eye pain, blurred vision ENT: Denies: ear pain, nose congestion, throat swelling Respiratory: Denies: cough, shortness of breath Cardiovascular: Reports: chest pain; Denies: palpitations Gastrointestinal: Denies: abdominal pain, diarrhea, nausea, vomiting Musculoskeletal: Denies: back pain, joint pain Skin: Denies: rash Neurological: Denies: headache, numbness Endocrine: Denies: increased thirst, increased urine Hematologic/Lymphatic: Denies: easy bruising All Other Systems: negative except mentioned in HPI Physical Exam Vital Signs Date Time Temp Pulse Resp B/P (MAP) Pulse Ox O2 Delivery O2 Flow Rate FiO2 05/12/18 03:27 98.1 108 18 186/82 95 Room Air 98.1 vitals with high blood pressure Sp02 EP Interpretation: reviewed, normal General Appearance: well appearing, no apparent distress, alert Head: normocephalic, atraumatic Eyes: bilateral eye PERRL, bilateral eye EOMI ENT: hearing grossly normal, normal pharynx Neck: full range of motion, supple, no meningismus Respiratory: chest non-tender, lungs clear, normal breath sounds Cardiovascular #1: regular rate, rhythm, no murmur Gastrointestinal: normal bowel sounds, non tender, no mass, no organomegaly, no bruit, non-distended Musculoskeletal: back normal, gait/station normal, normal range of motion, swelling - 2+ pitting edema to distal thigh. Right ankle area: Healing ulcer on the lateral aspect Better since last admission. mild odor. No obvious drain Psychiatric: mood/affect normal Skin: warm/dry Medical Decision Making Diagnostic Impression: Primary Impression: Chest pain Qualified Codes: R07.9 - Chest pain, unspecified Additional Impressions: CHF exacerbation Qualified Codes: I50.9 - Heart failure, unspecified COPD exacerbation Chronic ulcer of right leg Qualified Codes: L97.919 - Non-pressure chronic ulcer of unspecified part of right lower leg with unspecified severity Cellulitis of right leg ER Course This patient has chronic chest pain. He does have coronary disease with previous CT. Also with COPD and chronic ulcer. He may have cellulitis of the ulcer. Antibiotic started. Patient is otherwise stable vital signs. Will admit for further workup. I contacted Dr. Wright and Dr. Magana for admission. Lab Results Impression labs with elevated BNP EKG Diagnostic Results Rate: normal Rhythm: NSR ST Segments: no acute changes Rhythm Strip Diag. Results Rhythm Strip Time: 03:49 EP Interpretation: yes Rate: 96 Rhythm: NSR, no PVC's, no ectopy Chest X-Ray Diagnostic Results Chest X-Ray Diagnostic Results : Chest X-Ray Ordered: Yes # of Views/Limited/Complete: 1 View Indication: Chest Pain EP Interpretation: Yes Interpretation: no consolidation, no effusion, no pneumothorax, other - COPD Impression: No acute disease Electronically Signed by: Juventino Rothman MD Last Vital Signs Date Time Temp Pulse Resp B/P (MAP) Pulse Ox O2 Delivery O2 Flow Rate FiO2 05/12/18 03:27 98.1 108 18 186/82 95 Room Air 98.1 Status: improved Disposition: ADMITTED INPATIENT Condition: Serious Referrals: Jessie Magana MD (PCP) JUVENTINO ROTHMAN M.D. May 12, 2018 03:50
[2018-05-12 04:30] LABS: BASOPHILS % (AUTO) 5.7 % (0.0-2.0); EOSINOPHILS % (AUTO) 4.4 % (0.0-3.0); HEMATOCRIT 44.3 % (42.0-52.0); HEMOGLOBIN 13.5 G/DL (14.2-18.0); LYMPHOCYTES % (AUTO) 35.3 % (20.0-45.0); MEAN CORPUSCULAR VOLUME 83 FL (80-99); NEUTROPHILS % (AUTO) 36.7 % (45.0-75.0); PLATELET COUNT 359 K/UL (150-450); RED BLOOD COUNT 5.31 M/UL (4.70-6.10); RED CELL DISTRIBUTION WIDTH 17.8 % (11.6-14.8); WHITE BLOOD COUNT 5.1 K/UL (4.8-10.8)
[2018-05-12 04:35] LABS: ANION GAP 7 mmol/L (5-15); BLOOD UREA NITROGEN 18 mg/dL (7-18); CALCIUM 8.7 MG/DL (8.5-10.1); CARBON DIOXIDE 27 MMOL/L (21-32); CHLORIDE 103 MMOL/L (98-107); CREATININE 1.6 MG/DL (0.55-1.30); SODIUM 136 MMOL/L (136-145)
[2018-05-12 04:47] LABS: ALANINE AMINOTRANSFERASE 18 U/L (12-78); ALBUMIN 3.3 G/DL (3.4-5.0); ALBUMIN/GLOBULIN RATIO 0.8 (1.0-2.7); ALKALINE PHOSPHATASE 115 U/L (46-116); ASPARTATE AMINO TRANSFERASE 26 U/L (15-37); BILIRUBIN,TOTAL 0.3 MG/DL (0.2-1.0)
[2018-05-12 04:49] LABS: APPEARANCE,URINE CLEAR; BILIRUBIN, URINE NEGATIVE (NEGATIVE); COLOR,URINE PALE YELLOW; GLUCOSE, URINE (UA) NEGATIVE (NEGATIVE); KETONES,URINE NEGATIVE (NEGATIVE); LEUKOCYTE ESTERASE ,URINE NEGATIVE (NEGATIVE); NITRITE,URINE NEGATIVE (NEGATIVE); PH,URINE 6.5 (4.5-8.0); PROTEIN,URINE NEGATIVE (NEGATIVE); UROBILINOGEN,URINE NORMAL MG/DL (0.0-1.0)
[2018-05-12] MEDS ORDERED: Albuterol/Ipratropium 3ml neb HHN ONE (05:00)
[2018-05-12 05:14] VITALS: BP 151/86
[2018-05-12] MEDS ORDERED: Miralax 17gm pkt ORAL PRN (06:30)
[2018-05-12] MEDS ORDERED: Albuterol/Ipratropium 3ml neb HHN PRN (06:30)
[2018-05-12 08:00] VITALS: BP 137/78
[2018-05-12] MEDS: DiphenhydrAMINE 50mg/ml Inj IVP PRN ×5 (08:51→21:22)
[2018-05-12] MEDS: Morphine Sulfate 2mg/ml Inj IVP PRN ×5 (08:52→21:22)
[2018-05-12] MEDS: Theophylline ER 100mg ORAL SCH ×2 (08:52→21:21)
[2018-05-12] MEDS ORDERED: Cefepime HCl 2 GM in D5W 110 ML IV SCH (09:00)
[2018-05-12] MEDS: Heparin 5000 units/ml inj SUBQ SCH ×2 (09:08→21:00)
--- NOTE | 2018-05-12 11:56 | Consultation ---
History of Present Illness General Date patient seen: May 12, 2018 Time patient seen: 11:54 Chief Complaint: Chest Pain Present Illness HPI Patient admitted for chest pain and ankle pain. Hx of CAD with 2 stents. Allergies: Coded Allergies: EGG (Verified Allergy, Unknown, 09/22/15) MEPERIDINE (Verified Allergy, Unknown, 12/21/10) MORPHINE (Verified Allergy, Unknown, Shortness of Breath, 01/24/14) itching,shortness of breath,dyspnea NITROGLYCERIN (Verified Allergy, Unknown, hives, 02/18/17) Medication History Scheduled Amlodipine Besylate* (Amlodipine Besylate*), 10 MG ORAL DAILY, (Reported) Clopidogrel Bisulfate* (Plavix*), 75 MG ORAL DAILY, (Reported) Hydromorphone Hcl (Dilaudid), 2 MG PO EVERY 4 HOURS Levetiracetam (Keppra), 500 MG ORAL EVERY 12 HOURS, (Reported) Mirtazapine* (Remeron*), 15 MG ORAL BEDTIME, (Reported) Ranitidine Hcl* (Zantac*), 150 MG ORAL Q12HR Theophylline (Theodur*), 100 MG ORAL EVERY 12 HOURS Scheduled PRN Albuterol Sulfate (Ventolin Hfa), 1 PUFF INH EVERY 6 HOURS PRN Docusate Sodium* (Colace*), 100 MG ORAL DAILY PRN for Constipation, (Reported) Ondansetron Hcl* (Zofran*), 8 MG ORAL Q6H PRN for Nausea & Vomiting, (Reported) Patient History Healthcare decision maker Resuscitation status Full Code Advanced Directive on File No Review of Systems Eye: Reports: no symptoms ENT: Reports: no symptoms Respiratory: Reports: no symptoms Cardiovascular: Reports: chest pain Gastrointestinal: Reports: no symptoms Genitourinary: Reports: no symptoms Musculoskeletal: Reports: no symptoms Skin: Reports: no symptoms Psychiatric: Reports: no symptoms Neurological: Reports: no symptoms Endocrine: Reports: no symptoms Physical Exam General Appearance: no apparent distress Lines, tubes and drains: peripheral HEENT: normocephalic Neck: non-tender Respiratory/Chest: chest wall non-tender Cardiovascular/Chest: normal peripheral pulses Abdomen: normal bowel sounds Extremities: normal range of motion Skin Exam: normal pigmentation 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 Last 24 Hour Vital Signs Date Time Temp Pulse Resp B/P (MAP) Pulse Ox O2 Delivery O2 Flow Rate FiO2 05/12/18 09:00 97.8 05/12/18 08:52 97.8 05/12/18 08:51 97 137/78 05/12/18 08:00 97.7 97 18 137/78 94 97.7 05/12/18 05:20 97.8 93 22 151/86 99 Room Air 21 97.8 05/12/18 05:16 88 22 99 Room Air 21 05/12/18 05:14 97.8 93 17 151/86 97 Room Air 21 97.8 05/12/18 05:04 91 22 97 Room Air 21 05/12/18 04:40 97.8 05/12/18 04:10 98.1 05/12/18 03:35 98.1 93 18 186/82 95 Room Air 98.1 93 05/12/18 03:35 108 18 Room Air 05/12/18 03:27 98.1 108 18 186/82 95 Room Air 98.1 Intake and Output 05/11/18 05/12/18 19:00 07:00 Intake Total 598 ml Output Total 1625 ml Balance -1027 ml Intake Oral 598 ml Output Urine Total 1625 ml Laboratory Tests Test 05/12/18 04:20 05/12/18 04:40 White Blood Count 5.1 K/UL (4.8-10.8) Red Blood Count 5.31 M/UL (4.70-6.10) Hemoglobin 13.5 G/DL (14.2-18.0) L Hematocrit 44.3 % (42.0-52.0) Mean Corpuscular Volume 83 FL (80-99) Mean Corpuscular Hemoglobin 25.4 PG (27.0-31.0) L Mean Corpuscular Hemoglobin Concent 30.4 G/DL (32.0-36.0) L Red Cell Distribution Width 17.8 % (11.6-14.8) H Platelet Count 359 K/UL (150-450) Mean Platelet Volume 5.8 FL (6.5-10.1) L Neutrophils (%) (Auto) 36.7 % (45.0-75.0) L Lymphocytes (%) (Auto) 35.3 % (20.0-45.0) Monocytes (%) (Auto) 18.0 % (1.0-10.0) H Eosinophils (%) (Auto) 4.4 % (0.0-3.0) H Basophils (%) (Auto) 5.7 % (0.0-2.0) H Sodium Level 136 MMOL/L (136-145) Potassium Level 5.0 MMOL/L (3.5-5.1) Chloride Level 103 MMOL/L (98-107) Carbon Dioxide Level 27 MMOL/L (21-32) Anion Gap 7 mmol/L (5-15) Blood Urea Nitrogen 18 mg/dL (7-18) Creatinine 1.6 MG/DL (0.55-1.30) H Estimat Glomerular Filtration Rate 52.4 mL/min (>60) Glucose Level 92 MG/DL (74-106) Calcium Level 8.7 MG/DL (8.5-10.1) Total Bilirubin 0.3 MG/DL (0.2-1.0) Aspartate Amino Transf (AST/SGOT) 26 U/L (15-37) Alanine Aminotransferase (ALT/SGPT) 18 U/L (12-78) Alkaline Phosphatase 115 U/L (46-116) Troponin I 0.036 ng/mL (0.000-0.056) Pro-B-Type Natriuretic Peptide 1002 pg/mL (0-125) H Total Protein 7.2 G/DL (6.4-8.2) Albumin 3.3 G/DL (3.4-5.0) L Globulin 3.9 g/dL Albumin/Globulin Ratio 0.8 (1.0-2.7) L Urine Color Pale yellow Urine Appearance Clear Urine pH 6.5 (4.5-8.0) Urine Specific [place] 1.010 (1.005-1.035) Urine Protein Negative (NEGATIVE) Urine Glucose (UA) Negative (NEGATIVE) Urine Ketones Negative (NEGATIVE) Urine Occult Blood Negative (NEGATIVE) Urine Nitrite Negative (NEGATIVE) Urine Bilirubin Negative (NEGATIVE) Urine Urobilinogen Normal MG/DL (0.0-1.0) Urine Leukocyte Esterase Negative (NEGATIVE) Height (Feet): 6 Height (Inches): 1.00 Weight (Pounds): 140 Medications Current Medications Medications (Trade) Dose Ordered Sig/Aminata Route PRN Reason Start Time Stop Time Status Last Admin Dose Admin Acetaminophen (Tylenol) 650 mg Q4H PRN ORAL fever 05/12/18 06:30 06/11/18 06:29 Albuterol/ Ipratropium (Albuterol/ Ipratropium) 3 ml Q4H PRN HHN Shortness of Breath 05/12/18 06:30 05/17/18 06:29 Amlodipine Besylate (Norvasc) 10 mg DAILY ORAL 05/12/18 09:00 06/11/18 08:59 05/12/18 08:51 Cefepime HCl 2 gm/ Dextrose 110 ml @ 220 mls/hr Q24H IV 05/12/18 09:00 05/19/18 08:59 05/12/18 08:51 Clopidogrel Bisulfate (Plavix) 75 mg DAILY ORAL 05/12/18 09:00 06/11/18 08:59 05/12/18 08:51 Dextrose (Dextrose 50%) STAT PRN IV Hypoglycemia 05/12/18 06:30 06/11/18 06:29 Diphenhydramine HCl (Benadryl) 25 mg Q3H PRN IVP Itching 05/12/18 08:30 06/11/18 08:29 05/12/18 08:51 Heparin Sodium (Porcine) (Heparin 5000 units/ml) 5,000 units EVERY 12 HOURS SUBQ 05/12/18 09:00 06/11/18 08:59 05/12/18 09:08 Levetiracetam (Keppra) 500 mg EVERY 12 HOURS ORAL 05/12/18 09:00 06/11/18 08:59 05/12/18 08:52 Mirtazapine (Remeron) 15 mg BEDTIME ORAL 05/12/18 21:00 06/11/18 20:59 Morphine Sulfate (Morphine Sulfate) 2 mg Q3H PRN IVP For Pain 05/12/18 08:30 05/19/18 08:29 05/12/18 08:52 Ondansetron HCl (Zofran) 4 mg Q6H PRN IVP Nausea & Vomiting 05/12/18 06:30 06/11/18 06:29 Polyethylene Glycol (Miralax) 17 gm DAILYPRN PRN ORAL Constipation 05/12/18 06:30 06/11/18 06:29 Temazepam (Restoril) 15 mg HSPRN PRN ORAL Insomnia 05/12/18 06:30 05/19/18 06:29 Theophylline (Wilfrido-Dur) 100 mg EVERY 12 HOURS ORAL 05/12/18 09:00 06/11/18 08:59 05/12/18 08:52 Vancomycin HCl 1 gm/Dextrose 275 ml @ 183.3 mls/ hr Q24H IVPB 05/13/18 08:00 05/18/18 07:59 Assessment/Plan Status: stable Assessment/Plan Aspirin Statin Nitro prn chest pain Serial EKG and troponin Due to hx of PCI and CAD patient will need stress test prior to discharge and high MARTHA score If troponin rising, increasing chest pain, hemodynamic instability, EKG changes then start heparin gtt and will arrange cardiac cath Obtain echocardiogram to evaluate LV function given elevated BNP Adonis Winn M.D. May 12, 2018 11:56
[2018-05-12] MEDS ORDERED: Nitroglycerin Subl 0.4mg tab SL PRN (12:00)
--- NOTE | 2018-05-12 12:19 | Consultation ---
History of Present Illness General Date patient seen: May 12, 2018 Chief Complaint: Chest Pain Present Illness HPI 67-year-old male with hx of COPD, [place] with CABG, chronic pain, chronic leg ulcers presented with chest pain that's been ongoing for years but worse the last 3 days. No fever chills but no nausea no vomiting. Worse with motion. No radiation. Also c/o lower extremity swelling wotj chronic ulcer on the right ankle area. He is admitted to telemetry for ACS and worsening of chronic wounds. Allergies: Coded Allergies: EGG (Verified Allergy, Unknown, 09/22/15) MEPERIDINE (Verified Allergy, Unknown, 12/21/10) MORPHINE (Verified Allergy, Unknown, Shortness of Breath, 01/24/14) itching,shortness of breath,dyspnea NITROGLYCERIN (Verified Allergy, Unknown, hives, 02/18/17) Medication History Scheduled Amlodipine Besylate* (Amlodipine Besylate*), 10 MG ORAL DAILY, (Reported) Clopidogrel Bisulfate* (Plavix*), 75 MG ORAL DAILY, (Reported) Hydromorphone Hcl (Dilaudid), 2 MG PO EVERY 4 HOURS Levetiracetam (Keppra), 500 MG ORAL EVERY 12 HOURS, (Reported) Mirtazapine* (Remeron*), 15 MG ORAL BEDTIME, (Reported) Ranitidine Hcl* (Zantac*), 150 MG ORAL Q12HR Theophylline (Theodur*), 100 MG ORAL EVERY 12 HOURS Scheduled PRN Albuterol Sulfate (Ventolin Hfa), 1 PUFF INH EVERY 6 HOURS PRN Docusate Sodium* (Colace*), 100 MG ORAL DAILY PRN for Constipation, (Reported) Ondansetron Hcl* (Zofran*), 8 MG ORAL Q6H PRN for Nausea & Vomiting, (Reported) Patient History Healthcare decision maker Resuscitation status Full Code Advanced Directive on File No Past Medical/Surgical History Past Medical/Surgical History: (1) HTN (hypertension) (2) Hx of CABG (3) Severe malnutrition (4) Hypothyroidism (5) HTN (hypertension) Review of Systems All Other Systems: negative except mentioned in HPI Physical Exam General Appearance: WD/WN Lines, tubes and drains: peripheral HEENT: normocephalic, atraumatic Neck: non-tender, normal alignment Respiratory/Chest: chest wall non-tender, lungs clear Breasts: no masses Cardiovascular/Chest: normal peripheral pulses Abdomen: normal bowel sounds Genitourinary/Rectal: normal genital exam Extremities: inflammation, moderate edema Skin Exam: other - extensive wound in right ancle Musculoskeletal: atrophy Last 24 Hour Vital Signs Date Time Temp Pulse Resp B/P (MAP) Pulse Ox O2 Delivery O2 Flow Rate FiO2 05/12/18 11:57 97.8 05/12/18 09:00 97.8 05/12/18 08:52 97.8 05/12/18 08:51 97 137/78 05/12/18 08:00 97.7 97 18 137/78 94 97.7 05/12/18 05:20 97.8 93 22 151/86 99 Room Air 21 97.8 05/12/18 05:16 88 22 99 Room Air 21 05/12/18 05:14 97.8 93 17 151/86 97 Room Air 21 97.8 05/12/18 05:04 91 22 97 Room Air 21 05/12/18 04:40 97.8 05/12/18 04:10 98.1 05/12/18 03:35 98.1 93 18 186/82 95 Room Air 98.1 93 05/12/18 03:35 108 18 Room Air 05/12/18 03:27 98.1 108 18 186/82 95 Room Air 98.1 Intake and Output 05/11/18 05/12/18 19:00 07:00 Intake Total 598 ml Output Total 1625 ml Balance -1027 ml Intake Oral 598 ml Output Urine Total 1625 ml Laboratory Tests Test 05/12/18 04:20 05/12/18 04:40 White Blood Count 5.1 K/UL (4.8-10.8) Red Blood Count 5.31 M/UL (4.70-6.10) Hemoglobin 13.5 G/DL (14.2-18.0) L Hematocrit 44.3 % (42.0-52.0) Mean Corpuscular Volume 83 FL (80-99) Mean Corpuscular Hemoglobin 25.4 PG (27.0-31.0) L Mean Corpuscular Hemoglobin Concent 30.4 G/DL (32.0-36.0) L Red Cell Distribution Width 17.8 % (11.6-14.8) H Platelet Count 359 K/UL (150-450) Mean Platelet Volume 5.8 FL (6.5-10.1) L Neutrophils (%) (Auto) 36.7 % (45.0-75.0) L Lymphocytes (%) (Auto) 35.3 % (20.0-45.0) Monocytes (%) (Auto) 18.0 % (1.0-10.0) H Eosinophils (%) (Auto) 4.4 % (0.0-3.0) H Basophils (%) (Auto) 5.7 % (0.0-2.0) H Sodium Level 136 MMOL/L (136-145) Potassium Level 5.0 MMOL/L (3.5-5.1) Chloride Level 103 MMOL/L (98-107) Carbon Dioxide Level 27 MMOL/L (21-32) Anion Gap 7 mmol/L (5-15) Blood Urea Nitrogen 18 mg/dL (7-18) Creatinine 1.6 MG/DL (0.55-1.30) H Estimat Glomerular Filtration Rate 52.4 mL/min (>60) Glucose Level 92 MG/DL (74-106) Calcium Level 8.7 MG/DL (8.5-10.1) Total Bilirubin 0.3 MG/DL (0.2-1.0) Aspartate Amino Transf (AST/SGOT) 26 U/L (15-37) Alanine Aminotransferase (ALT/SGPT) 18 U/L (12-78) Alkaline Phosphatase 115 U/L (46-116) Troponin I 0.036 ng/mL (0.000-0.056) Pro-B-Type Natriuretic Peptide 1002 pg/mL (0-125) H Total Protein 7.2 G/DL (6.4-8.2) Albumin 3.3 G/DL (3.4-5.0) L Globulin 3.9 g/dL Albumin/Globulin Ratio 0.8 (1.0-2.7) L Urine Color Pale yellow Urine Appearance Clear Urine pH 6.5 (4.5-8.0) Urine Specific [place] 1.010 (1.005-1.035) Urine Protein Negative (NEGATIVE) Urine Glucose (UA) Negative (NEGATIVE) Urine Ketones Negative (NEGATIVE) Urine Occult Blood Negative (NEGATIVE) Urine Nitrite Negative (NEGATIVE) Urine Bilirubin Negative (NEGATIVE) Urine Urobilinogen Normal MG/DL (0.0-1.0) Urine Leukocyte Esterase Negative (NEGATIVE) Height (Feet): 6 Height (Inches): 1.00 Weight (Pounds): 140 Medications Current Medications Medications (Trade) Dose Ordered Sig/Aminata Route PRN Reason Start Time Stop Time Status Last Admin Dose Admin Acetaminophen (Tylenol) 650 mg Q4H PRN ORAL fever 05/12/18 06:30 06/11/18 06:29 Albuterol/ Ipratropium (Albuterol/ Ipratropium) 3 ml Q4H PRN HHN Shortness of Breath 05/12/18 06:30 05/17/18 06:29 Amlodipine Besylate (Norvasc) 10 mg DAILY ORAL 05/12/18 09:00 06/11/18 08:59 05/12/18 08:51 Atorvastatin Calcium (Lipitor) 20 mg BEDTIME ORAL 05/12/18 21:00 06/11/18 20:59 UNV Cefepime HCl 2 gm/ Dextrose 110 ml @ 220 mls/hr Q24H IV 05/12/18 09:00 05/19/18 08:59 05/12/18 08:51 Clopidogrel Bisulfate (Plavix) 75 mg DAILY ORAL 05/12/18 09:00 06/11/18 08:59 05/12/18 08:51 Dextrose (Dextrose 50%) STAT PRN IV Hypoglycemia 05/12/18 06:30 06/11/18 06:29 Diphenhydramine HCl (Benadryl) 25 mg Q3H PRN IVP Itching 05/12/18 08:30 06/11/18 08:29 05/12/18 11:57 Heparin Sodium (Porcine) (Heparin 5000 units/ml) 5,000 units EVERY 12 HOURS SUBQ 05/12/18 09:00 06/11/18 08:59 05/12/18 09:08 Levetiracetam (Keppra) 500 mg EVERY 12 HOURS ORAL 05/12/18 09:00 06/11/18 08:59 05/12/18 08:52 Mirtazapine (Remeron) 15 mg BEDTIME ORAL 05/12/18 21:00 06/11/18 20:59 Morphine Sulfate (Morphine Sulfate) 2 mg Q3H PRN IVP For Pain 05/12/18 08:30 05/19/18 08:29 05/12/18 11:57 Nitroglycerin (Ntg) 0.4 mg Q5M PRN SL Prn Chest Pain 05/12/18 12:00 06/11/18 11:59 UNV Ondansetron HCl (Zofran) 4 mg Q6H PRN IVP Nausea & Vomiting 05/12/18 06:30 06/11/18 06:29 Polyethylene Glycol (Miralax) 17 gm DAILYPRN PRN ORAL Constipation 05/12/18 06:30 06/11/18 06:29 Temazepam (Restoril) 15 mg HSPRN PRN ORAL Insomnia 05/12/18 06:30 05/19/18 06:29 Theophylline (Wilfrido-Dur) 100 mg EVERY 12 HOURS ORAL 05/12/18 09:00 06/11/18 08:59 05/12/18 08:52 Vancomycin HCl 1 gm/Dextrose 275 ml @ 183.3 mls/ hr Q24H IVPB 05/13/18 08:00 05/18/18 07:59 Assessment/Plan Problem List: (1) ACS (acute coronary syndrome) ICD Codes: I24.9 - Acute coronary syndrome SNOMED: 160901546 (2) Cellulitis of right ankle ICD Codes: L03.115 - Cellulitis of right lower limb SNOMED: 09894268 (3) Severe malnutrition ICD Codes: E43 - Unspecified severe protein-calorie malnutrition SNOMED: 80959628 (4) Emphysema lung ICD Codes: J43.9 - Emphysema, unspecified SNOMED: 72728004 (5) Hypothyroidism ICD Codes: E03.9 - Hypothyroidism, unspecified SNOMED: 62249203 (6) Chronic pain ICD Codes: G89.29 - Other chronic pain SNOMED: 33478692 (7) Hx of CABG ICD Codes: Z95.1 - History of coronary artery bypass surgery SNOMED: 753923690 Assessment/Plan serial ekg, troponin, echo wound care iv abx cultures from the wound Podiatry to see symptomatic treatment Jessie Magana MD May 12, 2018 12:19
--- NOTE | 2018-05-12 12:46 | Diagnostic Imaging Report ---
Indication: Chest pain Technique: One view of the chest Comparison: 03/22/2018 Findings: Cardiac monitoring hardware obscures portions of the right chest; images not repeated, per patient request. Lungs and pleural spaces are clear. The lungs are slightly hyperinflated. The heart size is normal. There is evidence of prior CABG. No significant change Impression: No acute process
--- NOTE | 2018-05-12 12:46 | Consultation ---
History of Present Illness General Date patient seen: May 12, 2018 Chief Complaint: Chest Pain Present Illness HPI 67-year-old male with hx of COPD, CAD/NV s/p CABG/ stents x2, chronic pain, chronic leg ulcers, HTN, severe malnutrition, MDD, tobacco abuse, seizure disorder, emphysema, DM2, bedbound presents to ED on 05/12 with worsening non radiating chest pain in the last 3 days. Pain is worse with movement. Also refers LE swelling. Patient has chronic ulcer on R ankle. Denies f/c, n/v, SOB, ulcer drainage Of note, patient admitted here on late February 2018 with SOB, cough and chest pain ; found to have COPD exacerbation. At that time, R ankle ulcer had no signs of infection. Treated witha total 5 days of abx (Zosyn>levaquin) Allergies: Coded Allergies: EGG (Verified Allergy, Unknown, 09/22/15) MEPERIDINE (Verified Allergy, Unknown, 12/21/10) MORPHINE (Verified Allergy, Unknown, Shortness of Breath, 01/24/14) itching,shortness of breath,dyspnea NITROGLYCERIN (Verified Allergy, Unknown, hives, 02/18/17) Medication History Scheduled Amlodipine Besylate* (Amlodipine Besylate*), 10 MG ORAL DAILY, (Reported) Clopidogrel Bisulfate* (Plavix*), 75 MG ORAL DAILY, (Reported) Hydromorphone Hcl (Dilaudid), 2 MG PO EVERY 4 HOURS Levetiracetam (Keppra), 500 MG ORAL EVERY 12 HOURS, (Reported) Mirtazapine* (Remeron*), 15 MG ORAL BEDTIME, (Reported) Ranitidine Hcl* (Zantac*), 150 MG ORAL Q12HR Theophylline (Theodur*), 100 MG ORAL EVERY 12 HOURS Scheduled PRN Albuterol Sulfate (Ventolin Hfa), 1 PUFF INH EVERY 6 HOURS PRN Docusate Sodium* (Colace*), 100 MG ORAL DAILY PRN for Constipation, (Reported) Ondansetron Hcl* (Zofran*), 8 MG ORAL Q6H PRN for Nausea & Vomiting, (Reported) Patient History Healthcare decision maker Resuscitation status Full Code Advanced Directive on File No Patient History Narrative PMhx: as above Shx: reviewed Fhx: non contributory Review of Systems All Other Systems: negative except mentioned in HPI Physical Exam Physical Exam Narrative General Appearance: no apparent distress Lines, tubes and drains: peripheral HEENT: normocephalic Neck: non-tender Respiratory/Chest: chest wall non-tender Cardiovascular/Chest: normal peripheral pulses Abdomen: normal bowel sounds Extremities: normal range of motion; L>R b/l swelling; L leg swelling, erythema and warmth, TTP Skin Exam: normal pigmentation Neurologic: denial resolution specialist II-XII grossly normal Last 24 Hour Vital Signs Date Time Temp Pulse Resp B/P (MAP) Pulse Ox O2 Delivery O2 Flow Rate FiO2 05/12/18 12:31 86 05/12/18 12:28 97.8 05/12/18 12:00 82 05/12/18 11:57 97.8 05/12/18 08:52 97.8 05/12/18 08:51 97 137/78 05/12/18 08:00 97.7 97 18 137/78 94 97.7 05/12/18 08:00 86 05/12/18 05:20 97.8 93 22 151/86 99 Room Air 21 97.8 05/12/18 05:16 88 22 99 Room Air 21 05/12/18 05:14 97.8 93 17 151/86 97 Room Air 21 97.8 05/12/18 05:04 91 22 97 Room Air 21 05/12/18 04:40 97.8 05/12/18 04:10 98.1 05/12/18 03:35 98.1 93 18 186/82 95 Room Air 98.1 93 05/12/18 03:35 108 18 Room Air 05/12/18 03:27 98.1 108 18 186/82 95 Room Air 98.1 Intake and Output 05/11/18 05/12/18 19:00 07:00 Intake Total 598 ml Output Total 1625 ml Balance -1027 ml Intake Oral 598 ml Output Urine Total 1625 ml Laboratory Tests Test 05/12/18 04:20 05/12/18 04:40 05/12/18 12:10 White Blood Count 5.1 K/UL (4.8-10.8) Red Blood Count 5.31 M/UL (4.70-6.10) Hemoglobin 13.5 G/DL (14.2-18.0) L Hematocrit 44.3 % (42.0-52.0) Mean Corpuscular Volume 83 FL (80-99) Mean Corpuscular Hemoglobin 25.4 PG (27.0-31.0) L Mean Corpuscular Hemoglobin Concent 30.4 G/DL (32.0-36.0) L Red Cell Distribution Width 17.8 % (11.6-14.8) H Platelet Count 359 K/UL (150-450) Mean Platelet Volume 5.8 FL (6.5-10.1) L Neutrophils (%) (Auto) 36.7 % (45.0-75.0) L Lymphocytes (%) (Auto) 35.3 % (20.0-45.0) Monocytes (%) (Auto) 18.0 % (1.0-10.0) H Eosinophils (%) (Auto) 4.4 % (0.0-3.0) H Basophils (%) (Auto) 5.7 % (0.0-2.0) H Sodium Level 136 MMOL/L (136-145) Potassium Level 5.0 MMOL/L (3.5-5.1) Chloride Level 103 MMOL/L (98-107) Carbon Dioxide Level 27 MMOL/L (21-32) Anion Gap 7 mmol/L (5-15) Blood Urea Nitrogen 18 mg/dL (7-18) Creatinine 1.6 MG/DL (0.55-1.30) H Estimat Glomerular Filtration Rate 52.4 mL/min (>60) Glucose Level 92 MG/DL (74-106) Calcium Level 8.7 MG/DL (8.5-10.1) Total Bilirubin 0.3 MG/DL (0.2-1.0) Aspartate Amino Transf (AST/SGOT) 26 U/L (15-37) Alanine Aminotransferase (ALT/SGPT) 18 U/L (12-78) Alkaline Phosphatase 115 U/L (46-116) Troponin I 0.036 ng/mL (0.000-0.056) Pending Pro-B-Type Natriuretic Peptide 1002 pg/mL (0-125) H Total Protein 7.2 G/DL (6.4-8.2) Albumin 3.3 G/DL (3.4-5.0) L Globulin 3.9 g/dL Albumin/Globulin Ratio 0.8 (1.0-2.7) L Urine Color Pale yellow Urine Appearance Clear Urine pH 6.5 (4.5-8.0) Urine Specific [place] 1.010 (1.005-1.035) Urine Protein Negative (NEGATIVE) Urine Glucose (UA) Negative (NEGATIVE) Urine Ketones Negative (NEGATIVE) Urine Occult Blood Negative (NEGATIVE) Urine Nitrite Negative (NEGATIVE) Urine Bilirubin Negative (NEGATIVE) Urine Urobilinogen Normal MG/DL (0.0-1.0) Urine Leukocyte Esterase Negative (NEGATIVE) Height (Feet): 6 Height (Inches): 1.00 Weight (Pounds): 140 Medications Current Medications Medications (Trade) Dose Ordered Sig/Aminata Route PRN Reason Start Time Stop Time Status Last Admin Dose Admin Acetaminophen (Tylenol) 650 mg Q4H PRN ORAL fever 05/12/18 06:30 06/11/18 06:29 Albuterol/ Ipratropium (Albuterol/ Ipratropium) 3 ml Q4H PRN HHN Shortness of Breath 05/12/18 06:30 05/17/18 06:29 Amlodipine Besylate (Norvasc) 10 mg DAILY ORAL 05/12/18 09:00 06/11/18 08:59 05/12/18 08:51 Atorvastatin Calcium (Lipitor) 20 mg BEDTIME ORAL 05/12/18 21:00 06/11/18 20:59 Cefepime HCl 2 gm/ Dextrose 110 ml @ 220 mls/hr Q24H IV 05/12/18 09:00 05/19/18 08:59 05/12/18 08:51 Clopidogrel Bisulfate (Plavix) 75 mg DAILY ORAL 05/12/18 09:00 06/11/18 08:59 05/12/18 08:51 Dextrose (Dextrose 50%) STAT PRN IV Hypoglycemia 05/12/18 06:30 06/11/18 06:29 Diphenhydramine HCl (Benadryl) 25 mg Q3H PRN IVP Itching 05/12/18 08:30 06/11/18 08:29 05/12/18 11:57 Heparin Sodium (Porcine) (Heparin 5000 units/ml) 5,000 units EVERY 12 HOURS SUBQ 05/12/18 09:00 06/11/18 08:59 05/12/18 09:08 Levetiracetam (Keppra) 500 mg EVERY 12 HOURS ORAL 05/12/18 09:00 06/11/18 08:59 05/12/18 08:52 Mirtazapine (Remeron) 15 mg BEDTIME ORAL 05/12/18 21:00 06/11/18 20:59 Morphine Sulfate (Morphine Sulfate) 2 mg Q3H PRN IVP For Pain 05/12/18 08:30 05/19/18 08:29 05/12/18 11:57 Nitroglycerin (Ntg) 0.4 mg Q5M PRN SL Prn Chest Pain 05/12/18 12:00 06/11/18 11:59 Ondansetron HCl (Zofran) 4 mg Q6H PRN IVP Nausea & Vomiting 05/12/18 06:30 06/11/18 06:29 Polyethylene Glycol (Miralax) 17 gm DAILYPRN PRN ORAL Constipation 05/12/18 06:30 06/11/18 06:29 Temazepam (Restoril) 15 mg HSPRN PRN ORAL Insomnia 05/12/18 06:30 05/19/18 06:29 Theophylline (Wilfrido-Dur) 100 mg EVERY 12 HOURS ORAL 05/12/18 09:00 06/11/18 08:59 05/12/18 08:52 Vancomycin HCl 1 gm/Dextrose 275 ml @ 183.3 mls/ hr Q24H IVPB 05/13/18 08:00 05/18/18 07:59 Assessment/Plan Assessment/Plan Abx: IV Vanco 05/13- Cefepime 05/12- Zosyn x1 05/12 Assessment: Chest pain B/l leg swelling L> R, L leg cellulitis R Ankle chronic ulcer- healing, no signs of infection -R foot xray 03/2018: No acute injury identified. Abnormal fifth MPJ joint which may be on the basis of previous surgery/trauma or old erosive process. Osteoporosis Afebrile, no leukocytosis\ -u/a neg -CXR No acute process HTN severe malnutrition MDD tobacco abuse seizure disorder emphysema DM2 CAD s/p CABG COPD -recent exacerbation requiring admission 02/2018 bedbound Plan: -Switch IV Vanco and Cefepime to Ancef for L leg cellulitis -03/26 SP PO Levaquin #3 -03/23/18 SP Zosyn #2 -B/l V. duplex -f/u cx -Monitor CBC/BMP, temperatures Thank you for this consultation. Will continue to monitor off abx. Discussed with CHRISTOPHER. Jessica Parry M.D. May 12, 2018 12:46
--- NOTE | 2018-05-12 15:50 | History & Physical ---
History and Physical History & Physicial Dictated for Int Med-Dr Wright no. [id number]. Shantanu Reyna MD May 12, 2018 15:50
--- NOTE | 2018-05-12 17:38 | Consultation ---
Consult Note Consult Note asked to eval for Cr of 1.6 Is a 67-year-old male with multiple medical problem including COPD, previous NH with CABG, chronic pain. He presents with chest pain that's been ongoing for years but worse the last 3 days. No fever chills but no nausea no vomiting. Worse with motion. No radiation. The main reason he is here because of lower extremity swelling. Also has a chronic ulcer on the right ankle area. He said that's improving but the swelling is worse. No shortness of breath. Worse palpation. Has not changed the dressing the last few days. No drainage. EGG (Verified Allergy, Unknown, 09/22/15) MEPERIDINE (Verified Allergy, Unknown, 12/21/10) MORPHINE (Verified Allergy, Unknown, Shortness of Breath, 01/24/14) itching,shortness of breath,dyspnea NITROGLYCERIN (Verified Allergy, Unknown, hives, 02/18/17) Hx Cardiac Problems: Yes - NH Hx COPD: Yes Hx Neurological Problems: Yes Hx Seizures: Yes Hx Tremors: Yes Hx Syncope: Yes Hx Weakness: Yes Vital Signs Date Time Temp Pulse Resp B/P Pulse Ox O2 Delivery O2 Flow Rate FiO2 05/13/17 00:10 97.7 114 25 156/104 98 Room Air Assessment/Plan - ATN (acute tubular necrosis), multifactorial Mainly DM and HTN improved Cr 1.6 now 1.9 - CAD with NH previously - SZ Disorder - COPD exacerbation - Hypothyroidism - Gastritis - ACS (acute coronary syndrome) - HTN (hypertension) - Nonhealing ulcer of right lower extremity - Osteomyelitis of right lower extremity Assessment/Plan CKD Chest pain, ACS h/o CABGS CHF exacerbation COPD exacerbation Chronic ulcer of right leg Cellulitis of right leg / Ankle Malnutrition Hypothyroidism Avoid Nephrotoxics Keep BP in check Monitor renal parameters Urine studies KACEY BERNSTEIN May 12, 2018 17:37
--- NOTE | 2018-05-12 18:39 | Cardiology Report ---
APPROVED REPORT EXAM: Two-dimensional and M-mode echocardiogram with Doppler and color Doppler. INDICATION Congestive Heart Failure M-Mode DIMENSIONS IVSd1.4 (0.7-1.1cm)Left Atrium (MM)3.0 (1.6-4.0cm) LVDd4.4 (3.5-5.6cm)Aortic Root3.0 (2.0-3.7cm) PWd1.1 (0.7-1.1cm) IVSs2.2 cm LVDs2.7 (2.5-4.0cm) PWs0.9 cm Technically difficult study due to poor acoustical windows. Normal left ventricular chamber size, hyperdynamic systolic function and wall motion to the extent visualized. Left ventricular ejection fraction estimated to be 65-70%. Mild left ventricular posterior wall hypertrophy by 2-D. All other cardiac chamber sizes are within normal limits. Pulmonic valve not well visualized. Normal tricuspid valve structure. IVC at size 2.1 with physiologic collapse. A color flow and spectral Doppler study was performed and revealed: No aortic regurgitation. Trace mitral regurgitation. Mitral diastolic velocities suggest reduced left ventricular relaxation c/w mild LV diastolic dysfunction (Grade I ). Mild tricuspid regurgitation. Tricuspid systolic velocities suggests peak right ventricular systolic pressure of 43mmHg. consistent with mild pulmonary HTN.
--- NOTE | 2018-05-12 18:49 | Consultation ---
Consult Note Assessment/Plan A/ 1) Cellulitis LE 2) Pressure ulcer right lateral ankle - nearly resolved 3) PAD 4) DM 5) Malunion of fracture right lower extremity P/ 1) Cont wound care with adaptic and dry dressing daily 2) Venous ultz pending 3) Abx per ID 4) Will follow Thank you Dave Pereira DPM May 12, 2018 18:49
[2018-05-12 20:00] VITALS: BP 154/83
--- NOTE | 2018-05-12 20:45 | Consultation ---
DATE OF CONSULTATION: 05/12/2018 REQUESTING PHYSICIAN: Jessie Magana M.D. CONSULTING PHYSICIAN: Dave Fowler D.P.M. REASON FOR CONSULTATION: Chronic ulceration right ankle, cellulitis and peripheral arterial disease. HISTORY OF PRESENT ILLNESS: The patient is a 67-year-old male, who was admitted to [facility] on 05/12/2018 for the above diagnoses. The patient states that his condition began approximately 4 days ago and noticed increasing pain and inability to move both lower extremities. At that point, the patient decided to admit himself. He has been treating his right ankle diligently at home and is very pleased with the outcomes. PAST MEDICAL HISTORY: Significant for COPD, coronary artery disease, hypertension, peripheral arterial disease, history of osteomyelitis and a fracture of the right lower extremity with resulting malunion. ALLERGIES: He is allergic to eggs, meperidine, morphine and nitroglycerin. MEDICATIONS: Per JAN. SOCIAL HISTORY: Noncontributory. FAMILY HISTORY: Noncontributory. REVIEW OF SYSTEMS: Ten-point review of systems is unremarkable. PHYSICAL EXAMINATION: VITAL SIGNS: Temperature is 97.8 degrees, pulse is 98, blood pressure is 137/78, and saturating 99% on room air. EXTREMITIES: Lower extremity physical exam, nonpalpable pedal pulses are noted bilaterally. Feet are equally hot. There is 2+ pitting edema noted bilaterally, right worse than left. There is no cyanosis of the toes noted. DERMATOLOGICAL: There is a superficial ulceration noted on the lateral aspect of the right ankle, probably measuring about 2 to 3 mm in diameter. Periwound skin is pink. No signs of acute infection are noted from the site. No bone or tendon is exposed. MUSCULOSKELETAL: There is deformity of the right ankle noted from previous fracture. Muscle strength is decreased. He has pain with range of motion of his ankles, knees and hips. LABORATORY AND DIAGNOSTIC DATA: White blood cell count is 5.1, hemoglobin and hematocrit is 13.5 and 44.3, and platelet count is 359. Potassium is 5.0, BUN 18, creatinine is 1.6, and glucose is 92. Albumin is 3.3. ASSESSMENT: 1. Cellulitis, lower extremity. 2. Pressure ulcer of the right lateral ankle, nearly resolved. 3. Peripheral arterial disease. 4. Diabetes mellitus. 5. Malunion fracture of the right lower extremity. PLAN: 1. We will continue wound care with Adaptic and dry dressing daily. 2. Venous ultrasound of bilateral lower extremity is pending. 3. Antibiotics per ID. 4. We will follow. Thank you for the courtesy of this consultation. Dave Fowler D.P.M. DR: DINA JOB#: [id number] CC:
[2018-05-12] MEDS: Atorvastatin 20mg tab ORAL SCH (21:21)
--- NOTE | 2018-05-12 22:15 | History and Physical Report ---
DATE OF ADMISSION: 05/12/2018 CHIEF COMPLAINT: The patient is a 67-year-old male with history of congestive heart failure, who presents with chief complaint of swollen legs and chest pain. HISTORY OF PRESENT ILLNESS: The patient was admitted to [facility] from 03/22/2018 through 03/28/2018. Please see history and physical and discharge summary dictated at that time. The patient states he began to experience swelling of his legs after discharged AMA. The patient states his legs have become increasingly swollen. The patient states they have become painful to the touch. The patient also began to experience substernal chest pain approximately 3 days ago. This has been constant. There is no radiation to the jaw or to the shoulder. The patient presented to [facility]. The patient was admitted for chest pain to rule out acute coronary syndrome. PAST MEDICAL HISTORY: Significant for: 1. Hypertension. 2. Coronary artery disease. 3. History of myocardial infarction x2. 4. Chronic obstructive pulmonary disease. PAST SURGICAL HISTORY: Significant for coronary artery bypass graft in June 2017. CURRENT MEDICATIONS: 1. Albuterol metered-dose inhaler two puffs p.o. q.i.d. p.r.n. 2. Amlodipine 10 mg p.o. daily. 3. Plavix 75 mg p.o. daily. 4. Keppra 500 mg p.o. twice daily. 5. Remeron 15 mg p.o. nightly. 6. Zantac 150 mg p.o. twice daily. 7. Wilfrido-Dur 100 mg p.o. twice daily. ALLERGIES: To morphine. Previous record shows allergy to eggs, Demerol, and nitroglycerin as well. SOCIAL HISTORY: The patient is , however, he lives with his ex-. The patient denies alcohol use. The patient admits to tobacco use of one pack per day. REVIEW OF SYSTEMS: CONSTITUTIONAL: The patient denies weight loss or weight gain. The patient denies fevers or chills. HEENT: The patient denies ear or throat pain. The patient denies headache. CARDIOVASCULAR: The patient complains of chest pain as above. The patient denies palpitations. CHEST: The patient denies wheeze or shortness of breath. ABDOMEN: The patient denies nausea, vomiting, diarrhea, or constipation. GENITOURINARY: The patient denies dysuria or increased frequency of urination. NEUROVASCULAR: The patient complains of leg swelling as above. The patient denies seizures or generalized weakness. PHYSICAL EXAMINATION: GENERAL: The patient is a well-developed, well-nourished, thin-appearing, male, in no apparent distress. VITAL SIGNS: Temperature 97.8 degrees, respirations 22, blood pressure 151/86, and pulse 88 to 93. HEENT: Eyes, pupils equal and responsive to light and accommodation. Extraocular movements are intact. NECK: Supple. No lymphadenopathy. CHEST: Lungs are clear to auscultation bilaterally without wheezes or rales. CARDIOVASCULAR: Tachycardic, regular rate. S1 and S2 are normal without murmurs, rubs, or gallops. ABDOMEN: Soft, nontender, and nondistended. Positive bowel sounds. No evidence of hepatosplenomegaly. Currently, no rebound or guarding noted. EXTREMITIES: A 3+ pitting edema of the bilateral legs from the knees to the ankles, otherwise without cyanosis. NEUROLOGIC: Cranial nerves II through XII are grossly intact without focal deficits. Motor strength is 5/5 bilaterally intact. Deep tendon reflexes are 2+, plantar. LABORATORY AND DIAGNOSTIC DATA: WBC 5.1, hemoglobin 13.5, hematocrit 44.3, and platelets 359,000. Sodium 136, potassium 5.0, chloride 103, CO2 27, BUN 18, creatinine 1.6, and glucose 92. Troponin 0.036. BNP elevated at 1002. Chest x-ray was reported as no acute disease. ASSESSMENT: This is a 67-year-old male with: 1. Chest pain. 2. Acute on chronic congestive heart failure. 3. Edema of bilateral lower extremities. 4. History of coronary artery disease. 5. Chronic obstructive pulmonary disease. TREATMENT: 1. Chest pain/congestive heart failure. An echocardiogram is pending. Cardiology consultation has been obtained with Dr. Winn. We will follow recommendations of Dr. Winn. 2. Edema of bilateral lower extremities. This is probably secondary to congestive heart failure as above. The patient has been started on intravenous Lasix. 3. Coronary artery disease. Serial troponin levels will be performed. As above, Cardiology consultation will be obtained with Dr. Winn. 4. Chronic obstructive pulmonary disease. Pulmonary consultation will be obtained with Dr. Jessie Magana. We will follow recommendations of Pulmonary. Shantanu Reyna M.D. DR: FRANCISCO J JOB#: [id number] CC:
--- NOTE | 2018-05-12 23:37 | Consultation ---
History of Present Illness General Date patient seen: May 12, 2018 Chief Complaint: Chest Pain Present Illness HPI 67 yo male with hx Significant for COPD, coronary artery disease, hypertension, peripheral arterial disease, history of osteomyelitis and a fracture of the right lower extremity with resulting malunion. the pt has been started on remeron during the last admission and doing better. the pt is eating better and sleeping better. Allergies: Coded Allergies: EGG (Verified Allergy, Unknown, 09/22/15) MEPERIDINE (Verified Allergy, Unknown, 12/21/10) MORPHINE (Verified Allergy, Unknown, Shortness of Breath, 01/24/14) itching,shortness of breath,dyspnea NITROGLYCERIN (Verified Allergy, Unknown, hives, 02/18/17) Medication History Scheduled Amlodipine Besylate* (Amlodipine Besylate*), 10 MG ORAL DAILY, (Reported) Clopidogrel Bisulfate* (Plavix*), 75 MG ORAL DAILY, (Reported) Hydromorphone Hcl (Dilaudid), 2 MG PO EVERY 4 HOURS Levetiracetam (Keppra), 500 MG ORAL EVERY 12 HOURS, (Reported) Mirtazapine* (Remeron*), 15 MG ORAL BEDTIME, (Reported) Ranitidine Hcl* (Zantac*), 150 MG ORAL Q12HR Theophylline (Theodur*), 100 MG ORAL EVERY 12 HOURS Scheduled PRN Albuterol Sulfate (Ventolin Hfa), 1 PUFF INH EVERY 6 HOURS PRN Docusate Sodium* (Colace*), 100 MG ORAL DAILY PRN for Constipation, (Reported) Ondansetron Hcl* (Zofran*), 8 MG ORAL Q6H PRN for Nausea & Vomiting, (Reported) Patient History Limited by: medical condition History Provided By: Patient, Medical Record, PMD Healthcare decision maker Resuscitation status Full Code Advanced Directive on File No Past Medical/Surgical History Past Medical/Surgical History: (1) Swelling of ankle joint, right (2) Hip dislocation, right (3) Gastroenteritis (4) Chest pain (5) ACS (acute coronary syndrome) (6) ACS (acute coronary syndrome) (7) ACS (acute coronary syndrome) (8) Right hip pain (9) COPD exacerbation (10) COPD exacerbation (11) History of heart attack (12) Chest pain with minimal risk of acute coronary syndrome (13) Cardiac dysrhythmia (14) ACS (acute coronary syndrome) (15) ACS (acute coronary syndrome) (16) Osteomyelitis of right lower extremity (17) Pneumonia (18) Shingles (19) Syncope (20) ACS (acute coronary syndrome) (21) COPD exacerbation (22) ACS (acute coronary syndrome) (23) ATN (acute tubular necrosis) (24) COPD exacerbation (25) Intractable back pain (26) Nonhealing ulcer of right lower extremity (27) Injury of lower extremity (28) Pain of right lower extremity (29) Closed fracture of tibia and fibula with malunion (30) Hyperkalemia (31) SOB (shortness of breath) (32) Osteomyelitis of right leg (33) Bronchitis (34) Esophagitis (35) Odynophagia (36) Dehydration (37) Gastritis (38) Vikki esophagitis (39) FTT (failure to thrive) in adult (40) DM (diabetes mellitus) (41) Acute bronchitis (42) Atypical chest pain (43) Diabetic foot ulcer (44) CHF exacerbation (45) Chest pain (46) COPD exacerbation (47) Cellulitis of right leg (48) Chronic ulcer of right leg (49) Hypothyroidism (50) Emphysema lung (51) Severe malnutrition (52) HTN (hypertension) (53) HTN (hypertension) (54) Chronic pain (55) ACS (acute coronary syndrome) (56) Cellulitis of right ankle (57) Ulcer of right lower leg (58) CAD (coronary artery disease) (59) Edema (60) CHF (congestive heart failure) (61) Seizure disorder (62) Cellulitis, leg (63) Diabetes mellitus type II, uncontrolled (64) Renal failure Review of Systems Psychiatric: Reports: prior hx, anxiety, depressed feelings, emotional problems Physical Exam General Appearance: no apparent distress, alert Neurologic: oriented x 3, responsive, depressed affect Last 24 Hour Vital Signs Date Time Temp Pulse Resp B/P (MAP) Pulse Ox O2 Delivery O2 Flow Rate FiO2 05/12/18 18:32 97.8 05/12/18 18:02 97.8 05/12/18 16:00 98 05/12/18 14:56 97.8 05/12/18 12:31 86 05/12/18 12:00 82 05/12/18 12:00 102 05/12/18 11:57 97.8 05/12/18 08:52 97.8 05/12/18 08:51 97 137/78 05/12/18 08:00 97.7 97 18 137/78 94 97.7 05/12/18 08:00 95 05/12/18 08:00 86 05/12/18 05:20 97.8 93 22 151/86 99 Room Air 21 97.8 05/12/18 05:16 88 22 99 Room Air 21 05/12/18 05:14 97.8 93 17 151/86 97 Room Air 21 97.8 05/12/18 05:04 91 22 97 Room Air 21 05/12/18 04:40 97.8 05/12/18 04:10 98.1 05/12/18 03:35 98.1 93 18 186/82 95 Room Air 98.1 93 05/12/18 03:35 108 18 Room Air 05/12/18 03:27 98.1 108 18 186/82 95 Room Air 98.1 Intake and Output 05/11/18 05/12/18 19:00 07:00 Intake Total 598 ml Output Total 1625 ml Balance -1027 ml Intake Oral 598 ml Output Urine Total 1625 ml Laboratory Tests Test 05/12/18 04:20 05/12/18 04:40 05/12/18 12:10 05/12/18 18:00 White Blood Count 5.1 K/UL (4.8-10.8) Red Blood Count 5.31 M/UL (4.70-6.10) Hemoglobin 13.5 G/DL (14.2-18.0) L Hematocrit 44.3 % (42.0-52.0) Mean Corpuscular Volume 83 FL (80-99) Mean Corpuscular Hemoglobin 25.4 PG (27.0-31.0) L Mean Corpuscular Hemoglobin Concent 30.4 G/DL (32.0-36.0) L Red Cell Distribution Width 17.8 % (11.6-14.8) H Platelet Count 359 K/UL (150-450) Mean Platelet Volume 5.8 FL (6.5-10.1) L Neutrophils (%) (Auto) 36.7 % (45.0-75.0) L Lymphocytes (%) (Auto) 35.3 % (20.0-45.0) Monocytes (%) (Auto) 18.0 % (1.0-10.0) H Eosinophils (%) (Auto) 4.4 % (0.0-3.0) H Basophils (%) (Auto) 5.7 % (0.0-2.0) H Sodium Level 136 MMOL/L (136-145) Potassium Level 5.0 MMOL/L (3.5-5.1) Chloride Level 103 MMOL/L (98-107) Carbon Dioxide Level 27 MMOL/L (21-32) Anion Gap 7 mmol/L (5-15) Blood Urea Nitrogen 18 mg/dL (7-18) Creatinine 1.6 MG/DL (0.55-1.30) H Estimat Glomerular Filtration Rate 52.4 mL/min (>60) Glucose Level 92 MG/DL (74-106) Calcium Level 8.7 MG/DL (8.5-10.1) Total Bilirubin 0.3 MG/DL (0.2-1.0) Aspartate Amino Transf (AST/SGOT) 26 U/L (15-37) Alanine Aminotransferase (ALT/SGPT) 18 U/L (12-78) Alkaline Phosphatase 115 U/L (46-116) Troponin I 0.036 ng/mL (0.000-0.056) 0.000 ng/mL (0.000-0.056) 0.000 ng/mL (0.000-0.056) Pro-B-Type Natriuretic Peptide 1002 pg/mL (0-125) H Total Protein 7.2 G/DL (6.4-8.2) Albumin 3.3 G/DL (3.4-5.0) L Globulin 3.9 g/dL Albumin/Globulin Ratio 0.8 (1.0-2.7) L Urine Color Pale yellow Urine Appearance Clear Urine pH 6.5 (4.5-8.0) Urine Specific [place] 1.010 (1.005-1.035) Urine Protein Negative (NEGATIVE) Urine Glucose (UA) Negative (NEGATIVE) Urine Ketones Negative (NEGATIVE) Urine Occult Blood Negative (NEGATIVE) Urine Nitrite Negative (NEGATIVE) Urine Bilirubin Negative (NEGATIVE) Urine Urobilinogen Normal MG/DL (0.0-1.0) Urine Leukocyte Esterase Negative (NEGATIVE) Height (Feet): 6 Height (Inches): 1.00 Weight (Pounds): 140 Medications Current Medications Medications (Trade) Dose Ordered Sig/Aminata Route PRN Reason Start Time Stop Time Status Last Admin Dose Admin Acetaminophen (Tylenol) 650 mg Q4H PRN ORAL fever 05/12/18 06:30 06/11/18 06:29 Albuterol/ Ipratropium (Albuterol/ Ipratropium) 3 ml Q4H PRN HHN Shortness of Breath 05/12/18 06:30 05/17/18 06:29 Amlodipine Besylate (Norvasc) 10 mg DAILY ORAL 05/12/18 09:00 06/11/18 08:59 05/12/18 08:51 Atorvastatin Calcium (Lipitor) 20 mg BEDTIME ORAL 05/12/18 21:00 06/11/18 20:59 05/12/18 21:21 Cefazolin Sodium 1 gm/Dextrose 110 ml @ 220 mls/hr Q8HR IVPB 05/13/18 06:00 05/20/18 05:59 Clopidogrel Bisulfate (Plavix) 75 mg DAILY ORAL 05/12/18 09:00 06/11/18 08:59 05/12/18 08:51 Dextrose (Dextrose 50%) STAT PRN IV Hypoglycemia 05/12/18 06:30 06/11/18 06:29 Diphenhydramine HCl (Benadryl) 25 mg Q3H PRN IVP Itching 05/12/18 08:30 06/11/18 08:29 05/12/18 21:22 Heparin Sodium (Porcine) (Heparin 5000 units/ml) 5,000 units EVERY 12 HOURS SUBQ 05/12/18 09:00 06/11/18 08:59 05/12/18 09:08 Lansoprazole (Prevacid) 30 mg BID ORAL 05/12/18 18:00 06/11/18 17:59 05/12/18 18:02 Levetiracetam (Keppra) 500 mg EVERY 12 HOURS ORAL 05/12/18 09:00 06/11/18 08:59 05/12/18 21:21 Mirtazapine (Remeron) 15 mg BEDTIME ORAL 05/12/18 21:00 06/11/18 20:59 05/12/18 21:21 Morphine Sulfate (Morphine Sulfate) 2 mg Q3H PRN IVP For Pain 05/12/18 08:30 05/19/18 08:29 05/12/18 21:22 Nitroglycerin (Ntg) 0.4 mg Q5M PRN SL Prn Chest Pain 05/12/18 12:00 06/11/18 11:59 Ondansetron HCl (Zofran) 4 mg Q6H PRN IVP Nausea & Vomiting 05/12/18 06:30 06/11/18 06:29 Polyethylene Glycol (Miralax) 17 gm DAILYPRN PRN ORAL Constipation 05/12/18 06:30 06/11/18 06:29 Temazepam (Restoril) 15 mg HSPRN PRN ORAL Insomnia 05/12/18 06:30 05/19/18 06:29 Theophylline (Wilfrido-Dur) 100 mg EVERY 12 HOURS ORAL 05/12/18 09:00 06/11/18 08:59 05/12/18 21:21 Assessment/Plan Assessment/Plan Mdd poor appetite failure to thrive remeron 15mg qhs provided abdulaziz/Rachael Huynh M.D. May 12, 2018 23:37
[2018-05-13] VITALS: BP 130/88
[2018-05-13] MEDS: Morphine Sulfate 2mg/ml Inj IVP PRN ×7 (00:26→21:33)
[2018-05-13 04:00] VITALS: BP 131/83
[2018-05-13] MEDS: ceFAZolin sod 1 GM in D5W 110 ML IVPB SCH ×3 (06:20→21:47)
--- NOTE | 2018-05-13 07:09 | Cardiology Report ---
APPROVED REPORT EKG Measurement Heart [id number] Normal sinus rhythm Anterior infarct, age undetermined Abnormal ECG
[2018-05-13 07:50] LABS: HEMATOCRIT 44.4 % (42.0-52.0); HEMOGLOBIN 13.8 G/DL (14.2-18.0); MEAN CORPUSCULAR VOLUME 83 FL (80-99); PLATELET COUNT 352 K/UL (150-450); RED BLOOD COUNT 5.32 M/UL (4.70-6.10); RED CELL DISTRIBUTION WIDTH 17.3 % (11.6-14.8); WHITE BLOOD COUNT 5.3 K/UL (4.8-10.8)
[2018-05-13 08:00] VITALS: BP 150/89
[2018-05-13 08:00] LABS: CREATINE KINASE 156 U/L (26-308); GAMMA GLUTAMYL TRANSPEPTIDASE 55 U/L (5-85); PHOSPHORUS 4.4 MG/DL (2.5-4.9)
[2018-05-13] MEDS ORDERED: Vancomycin 1 GM in D5W 275 ML IVPB SCH (08:00)
[2018-05-13 08:09] LABS: CHOLESTEROL 184 MG/DL (< 200); HDL CHOLESTEROL 62 MG/DL (40-60); TRIGLYCERIDES 116 MG/DL (30-150)
[2018-05-13 08:15] LABS: ALANINE AMINOTRANSFERASE 21 U/L (12-78); ALBUMIN 3.1 G/DL (3.4-5.0); ALBUMIN/GLOBULIN RATIO 0.7 (1.0-2.7); ALKALINE PHOSPHATASE 107 U/L (46-116); ANION GAP 9 mmol/L (5-15); ASPARTATE AMINO TRANSFERASE 23 U/L (15-37); BILIRUBIN,TOTAL 0.3 MG/DL (0.2-1.0); BLOOD UREA NITROGEN 21 mg/dL (7-18); CALCIUM 8.7 MG/DL (8.5-10.1); CARBON DIOXIDE 24 MMOL/L (21-32); CHLORIDE 102 MMOL/L (98-107); CREATININE 1.5 MG/DL (0.55-1.30); POTASSIUM 4.7 MMOL/L (3.5-5.1); SODIUM 135 MMOL/L (136-145)
[2018-05-13] MEDS: Theophylline ER 100mg ORAL SCH ×2 (09:12→21:32)
[2018-05-13] MEDS: Heparin 5000 units/ml inj SUBQ SCH ×2 (09:17→21:34)
--- NOTE | 2018-05-13 10:53 | Internal Med Progress Note ---
Subjective Date of Service: May 13, 2018 Physician Name Shantanu Reyna Attending Physician Phil Wright MD Current Medications Medications (Trade) Dose Ordered Sig/Aminata Route PRN Reason Start Time Stop Time Status Last Admin Dose Admin Acetaminophen (Tylenol) 650 mg Q4H PRN ORAL fever 05/12/18 06:30 06/11/18 06:29 Albuterol/ Ipratropium (Albuterol/ Ipratropium) 3 ml Q4H PRN HHN Shortness of Breath 05/12/18 06:30 05/17/18 06:29 Amlodipine Besylate (Norvasc) 10 mg DAILY ORAL 05/12/18 09:00 06/11/18 08:59 05/13/18 09:09 Atorvastatin Calcium (Lipitor) 20 mg BEDTIME ORAL 05/12/18 21:00 06/11/18 20:59 05/12/18 21:21 Cefazolin Sodium 1 gm/Dextrose 110 ml @ 220 mls/hr Q8HR IVPB 05/13/18 06:00 05/20/18 05:59 05/13/18 06:20 Clopidogrel Bisulfate (Plavix) 75 mg DAILY ORAL 05/12/18 09:00 06/11/18 08:59 05/13/18 09:11 Dextrose (Dextrose 50%) STAT PRN IV Hypoglycemia 05/12/18 06:30 06/11/18 06:29 Diphenhydramine HCl (Benadryl) 25 mg Q3H PRN IVP Itching 05/12/18 08:30 06/11/18 08:29 05/12/18 21:22 Heparin Sodium (Porcine) (Heparin 5000 units/ml) 5,000 units EVERY 12 HOURS SUBQ 05/12/18 09:00 06/11/18 08:59 05/13/18 09:17 Lansoprazole (Prevacid) 30 mg BID ORAL 05/12/18 18:00 06/11/18 17:59 05/13/18 09:11 Levetiracetam (Keppra) 500 mg EVERY 12 HOURS ORAL 05/12/18 09:00 06/11/18 08:59 05/13/18 09:10 Mirtazapine (Remeron) 15 mg BEDTIME ORAL 05/12/18 21:00 06/11/18 20:59 05/12/18 21:21 Morphine Sulfate (Morphine Sulfate) 2 mg Q3H PRN IVP For Pain 05/12/18 08:30 05/19/18 08:29 05/13/18 09:22 Nitroglycerin (Ntg) 0.4 mg Q5M PRN SL Prn Chest Pain 05/12/18 12:00 06/11/18 11:59 Ondansetron HCl (Zofran) 4 mg Q6H PRN IVP Nausea & Vomiting 05/12/18 06:30 06/11/18 06:29 Polyethylene Glycol (Miralax) 17 gm DAILYPRN PRN ORAL Constipation 05/12/18 06:30 06/11/18 06:29 Temazepam (Restoril) 15 mg HSPRN PRN ORAL Insomnia 05/12/18 06:30 05/19/18 06:29 Theophylline (Wilfrido-Dur) 100 mg EVERY 12 HOURS ORAL 05/12/18 09:00 06/11/18 08:59 05/13/18 09:12 Allergies: Coded Allergies: EGG (Verified Allergy, Unknown, 09/22/15) MEPERIDINE (Verified Allergy, Unknown, 12/21/10) MORPHINE (Verified Allergy, Unknown, Shortness of Breath, 01/24/14) itching,shortness of breath,dyspnea NITROGLYCERIN (Verified Allergy, Unknown, hives, 02/18/17) ROS Limited/Unobtainable: No Constitutional: Reports: no symptoms HEENT: Reports: no symptoms Cardiovascular: Reports: chest pain Respiratory: Reports: no symptoms Gastrointestinal/Abdominal: Reports: no symptoms Genitourinary: Reports: no symptoms 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: Reports: no symptoms Subjective 67 YO M admitted with chest pain. Now bilateral leg cellulitis with edema. Cover for Int Wilfred-Dr Wright. Objective Last Vital Signs Date Time Temp Pulse Resp B/P (MAP) Pulse Ox O2 Delivery O2 Flow Rate FiO2 05/13/18 09:09 80 150/89 05/13/18 08:00 97.8 18 100 97.8 05/12/18 05:20 Room Air 21 General Appearance: alert, moderate distress, thin EENT: PERRL/EOMI, normal ENT inspection Neck: non-tender, normal alignment, supple, normal inspection Cardiovascular: normal peripheral pulses, normal rate, regular rhythm, no gallop/murmur, no JVD Respiratory/Chest: lungs clear, normal breath sounds, no respiratory distress, no accessory muscle use Abdomen: normal bowel sounds, non tender, soft, no organomegaly, no mass Extremities: normal range of motion, other - bilateral lower extremity erythema and dry skin Edema: moderate edema 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: 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 services specialist 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 grossly normal, no motor/sensory deficits Laboratory Tests Test 05/12/18 12:10 05/12/18 18:00 05/13/18 07:30 05/13/18 09:00 Troponin I 0.000 ng/mL (0.000-0.056) 0.000 ng/mL (0.000-0.056) White Blood Count 5.3 K/UL (4.8-10.8) Red Blood Count 5.32 M/UL (4.70-6.10) Hemoglobin 13.8 G/DL (14.2-18.0) L Hematocrit 44.4 % (42.0-52.0) Mean Corpuscular Volume 83 FL (80-99) Mean Corpuscular Hemoglobin 25.9 PG (27.0-31.0) L Mean Corpuscular Hemoglobin Concent 31.1 G/DL (32.0-36.0) L Red Cell Distribution Width 17.3 % (11.6-14.8) H Platelet Count 352 K/UL (150-450) Mean Platelet Volume 6.2 FL (6.5-10.1) L Neutrophils (%) (Auto) % (45.0-75.0) Lymphocytes (%) (Auto) % (20.0-45.0) Monocytes (%) (Auto) % (1.0-10.0) Eosinophils (%) (Auto) % (0.0-3.0) Basophils (%) (Auto) % (0.0-2.0) Differential Total Cells Counted 100 Neutrophils % (Manual) 38 % (45-75) L Lymphocytes % (Manual) 39 % (20-45) Monocytes % (Manual) 19 % (1-10) H Eosinophils % (Manual) 2 % (0-3) Basophils % (Manual) 2 % (0-2) Band Neutrophils 0 % (0-8) Platelet Estimate Adequate Platelet Morphology Normal Hypochromasia 1+ Anisocytosis 1+ Sodium Level 135 MMOL/L (136-145) L Potassium Level 4.7 MMOL/L (3.5-5.1) Chloride Level 102 MMOL/L (98-107) Carbon Dioxide Level 24 MMOL/L (21-32) Anion Gap 9 mmol/L (5-15) Blood Urea Nitrogen 21 mg/dL (7-18) H Creatinine 1.5 MG/DL (0.55-1.30) H Estimat Glomerular Filtration Rate 56.4 mL/min (>60) Glucose Level 93 MG/DL (74-106) Hemoglobin A1c 5.8 % (4.3-6.0) Uric Acid 6.1 MG/DL (2.6-7.2) Calcium Level 8.7 MG/DL (8.5-10.1) Phosphorus Level 4.4 MG/DL (2.5-4.9) Magnesium Level 2.1 MG/DL (1.8-2.4) Total Bilirubin 0.3 MG/DL (0.2-1.0) Gamma Glutamyl Transpeptidase 55 U/L (5-85) Aspartate Amino Transf (AST/SGOT) 23 U/L (15-37) Alanine Aminotransferase (ALT/SGPT) 21 U/L (12-78) Alkaline Phosphatase 107 U/L (46-116) Total Creatine Kinase 156 U/L (26-308) C-Reactive Protein, Quantitative 1.4 mg/dL (0.00-0.90) H Pro-B-Type Natriuretic Peptide 744 pg/mL (0-125) H Total Protein 7.4 G/DL (6.4-8.2) Albumin 3.1 G/DL (3.4-5.0) L Globulin 4.3 g/dL Albumin/Globulin Ratio 0.7 (1.0-2.7) L Triglycerides Level 116 MG/DL (30-150) Cholesterol Level 184 MG/DL (< 200) LDL Cholesterol 113 mg/dL (<100) H HDL Cholesterol 62 MG/DL (40-60) H Cholesterol/HDL Ratio 3.0 (3.3-4.4) L Vitamin B12 Level 265 PG/ML (193-986) Folate 9.5 NG/ML (8.6-58.9) Thyroid Stimulating Hormone (TSH) 0.446 uiU/mL (0.358-3.740) Urine Eosinophils None seen Intake and Output 05/12/18 05/13/18 19:00 07:00 Intake Total 120 ml Output Total 800 ml Balance 120 ml -800 ml Intake Oral 120 ml Output Urine Total 800 ml # Voids 2 Assessment/Plan Problem List: (1) Diabetes mellitus type II, uncontrolled (2) Seizure disorder Assessment & Plan: Continue Keppra (3) Cellulitis, leg Assessment & Plan: R>L. Continue cefazolin per ID. (4) CHF (congestive heart failure) (5) Edema (6) Ulcer of right lower leg Assessment & Plan: See podiatry note. (7) HTN (hypertension) (8) COPD exacerbation Assessment & Plan: see pulmonary note. (9) CAD (coronary artery disease) Assessment & Plan: S/P CABG-see cardiology note. (10) Renal failure Assessment & Plan: Diabetic nephropathy vs ATN. See nephrology note. (11) Chest pain Assessment & Plan: COPD vs ACS? See pulmonary and cardiology note. Status: not improved Shantanu Reyna MD May 13, 2018 10:53
--- NOTE | 2018-05-13 11:41 | Pulmonology Progress Note ---
Assessment/Plan Problems: (1) ACS (acute coronary syndrome) (2) Cellulitis of right ankle (3) Severe malnutrition (4) Emphysema lung (5) Hypothyroidism (6) Chronic pain (7) Hx of CABG Assessment/Plan cardio note appreciated wound care check electrolytes continue abx respiratory treatment dvt prophylaxis Subjective ROS Limited/Unobtainable: No Constitutional: Reports: no symptoms HEENT: Repors: no symptoms Cardiovascular: Reports: chest pain Allergies: Coded Allergies: EGG (Verified Allergy, Unknown, 09/22/15) MEPERIDINE (Verified Allergy, Unknown, 12/21/10) MORPHINE (Verified Allergy, Unknown, Shortness of Breath, 01/24/14) itching,shortness of breath,dyspnea NITROGLYCERIN (Verified Allergy, Unknown, hives, 02/18/17) Objective Last 24 Hour Vital Signs Date Time Temp Pulse Resp B/P (MAP) Pulse Ox O2 Delivery O2 Flow Rate FiO2 05/13/18 09:09 80 150/89 05/13/18 08:00 97.8 80 18 150/89 100 97.8 05/13/18 08:00 105 05/13/18 04:00 98.8 106 20 131/83 96 98.8 05/13/18 04:00 108 05/13/18 00:00 98.4 108 20 130/88 96 98.4 05/13/18 00:00 110 05/12/18 20:00 97 05/12/18 20:00 98.2 102 20 154/83 98 98.2 05/12/18 18:32 97.8 05/12/18 18:02 97.8 05/12/18 16:00 98 05/12/18 14:56 97.8 05/12/18 12:31 86 05/12/18 12:00 82 05/12/18 12:00 102 05/12/18 11:57 97.8 Intake and Output 05/12/18 05/13/18 19:00 07:00 Intake Total 120 ml Output Total 800 ml Balance 120 ml -800 ml Intake Oral 120 ml Output Urine Total 800 ml # Voids 2 General Appearance: WD/WN, no acute distress HEENT: anicteric Respiratory/Chest: chest wall non-tender, lungs clear Cardiovascular: normal peripheral pulses, normal rate Abdomen: normal bowel sounds, soft, non tender, no organomegaly Extremities: no cyanosis 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: report analyst II-XII grossly normal Laboratory Tests 05/12/18 12:10: Troponin I 0.000 05/12/18 18:00: Troponin I 0.000 05/13/18 07:30: White Blood Count 5.3, Red Blood Count 5.32, Hemoglobin 13.8L, Hematocrit 44.4, Mean Corpuscular Volume 83, Mean Corpuscular Hemoglobin 25.9L, Mean Corpuscular Hemoglobin Concent 31.1L, Red Cell Distribution Width 17.3H, Platelet Count 352 , Mean Platelet Volume 6.2L, Neutrophils (%) (Auto) , Lymphocytes (%) (Auto) , Monocytes (%) (Auto) , Eosinophils (%) (Auto) , Basophils (%) (Auto) , Differential Total Cells Counted 100, Neutrophils % (Manual) 38L, Lymphocytes % (Manual) 39, Monocytes % (Manual) 19H, Eosinophils % (Manual) 2, Basophils % ( Manual) 2, Band Neutrophils 0, Platelet Estimate Adequate, Platelet Morphology Normal, Hypochromasia 1+, Anisocytosis 1+, Sodium Level 135L, Potassium Level 4.7, Chloride Level 102, Carbon Dioxide Level 24, Anion Gap 9, Blood Urea Nitrogen 21H, Creatinine 1.5H, Estimat Glomerular Filtration Rate 56.4, Glucose Level 93, Hemoglobin A1c 5.8, Uric Acid 6.1, Calcium Level 8.7, Phosphorus Level 4.4, Magnesium Level 2.1, Total Bilirubin 0.3, Gamma Glutamyl Transpeptidase 55, Aspartate Amino Transf (AST/SGOT) 23, Alanine Aminotransferase (ALT/SGPT) 21, Alkaline Phosphatase 107, Total Creatine Kinase 156, C-Reactive Protein, Quantitative 1.4H, Pro-B-Type Natriuretic Peptide 744H , Total Protein 7.4, Albumin 3.1L, Globulin 4.3, Albumin/Globulin Ratio 0.7L, Triglycerides Level 116, Cholesterol Level 184, LDL Cholesterol 113H, HDL Cholesterol 62H, Cholesterol/HDL Ratio 3.0L, Vitamin B12 Level 265, Folate 9.5, Thyroid Stimulating Hormone (TSH) 0.446 05/13/18 09:00: Urine Eosinophils None seen Current Medications Medications (Trade) Dose Ordered Sig/Aminata Route PRN Reason Start Time Stop Time Status Last Admin Dose Admin Acetaminophen (Tylenol) 650 mg Q4H PRN ORAL fever 05/12/18 06:30 06/11/18 06:29 Albuterol/ Ipratropium (Albuterol/ Ipratropium) 3 ml Q4H PRN HHN Shortness of Breath 05/12/18 06:30 05/17/18 06:29 Amlodipine Besylate (Norvasc) 10 mg DAILY ORAL 05/12/18 09:00 06/11/18 08:59 05/13/18 09:09 Atorvastatin Calcium (Lipitor) 20 mg BEDTIME ORAL 05/12/18 21:00 06/11/18 20:59 05/12/18 21:21 Cefazolin Sodium 1 gm/Dextrose 110 ml @ 220 mls/hr Q8HR IVPB 05/13/18 06:00 05/20/18 05:59 05/13/18 06:20 Clopidogrel Bisulfate (Plavix) 75 mg DAILY ORAL 05/12/18 09:00 06/11/18 08:59 05/13/18 09:11 Dextrose (Dextrose 50%) STAT PRN IV Hypoglycemia 05/12/18 06:30 06/11/18 06:29 Diphenhydramine HCl (Benadryl) 25 mg Q3H PRN IVP Itching 05/12/18 08:30 06/11/18 08:29 05/12/18 21:22 Heparin Sodium (Porcine) (Heparin 5000 units/ml) 5,000 units EVERY 12 HOURS SUBQ 05/12/18 09:00 06/11/18 08:59 05/13/18 09:17 Lansoprazole (Prevacid) 30 mg BID ORAL 05/12/18 18:00 06/11/18 17:59 05/13/18 09:11 Levetiracetam (Keppra) 500 mg EVERY 12 HOURS ORAL 05/12/18 09:00 06/11/18 08:59 05/13/18 09:10 Mirtazapine (Remeron) 15 mg BEDTIME ORAL 05/12/18 21:00 06/11/18 20:59 05/12/18 21:21 Morphine Sulfate (Morphine Sulfate) 2 mg Q3H PRN IVP For Pain 05/12/18 08:30 05/19/18 08:29 05/13/18 09:22 Nitroglycerin (Ntg) 0.4 mg Q5M PRN SL Prn Chest Pain 05/12/18 12:00 06/11/18 11:59 Ondansetron HCl (Zofran) 4 mg Q6H PRN IVP Nausea & Vomiting 05/12/18 06:30 06/11/18 06:29 Polyethylene Glycol (Miralax) 17 gm DAILYPRN PRN ORAL Constipation 05/12/18 06:30 06/11/18 06:29 Temazepam (Restoril) 15 mg HSPRN PRN ORAL Insomnia 05/12/18 06:30 05/19/18 06:29 Theophylline (Wilfrido-Dur) 100 mg EVERY 12 HOURS ORAL 05/12/18 09:00 06/11/18 08:59 05/13/18 09:12 Jessie Magana MD May 13, 2018 11:41
[2018-05-13 12:00] VITALS: BP 131/80
--- NOTE | 2018-05-13 13:05 | General Progress Note ---
Assessment/Plan Status: stable Assessment/Plan Mdd poor appetite failure to thrive remeron 15mg qhs provided ro/st Subjective Date patient seen: May 13, 2018 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: Reports: anxiety, depressed, emotional problems Allergies: Coded Allergies: EGG (Verified Allergy, Unknown, 09/22/15) MEPERIDINE (Verified Allergy, Unknown, 12/21/10) MORPHINE (Verified Allergy, Unknown, Shortness of Breath, 01/24/14) itching,shortness of breath,dyspnea NITROGLYCERIN (Verified Allergy, Unknown, hives, 02/18/17) Subjective the pt was irritable. illogical. Objective Last 24 Hour Vital Signs Date Time Temp Pulse Resp B/P (MAP) Pulse Ox O2 Delivery O2 Flow Rate FiO2 05/13/18 12:00 104 05/13/18 12:00 97.6 98 18 131/80 97 97.6 05/13/18 09:09 80 150/89 05/13/18 08:00 97.8 80 18 150/89 100 97.8 05/13/18 08:00 105 05/13/18 04:00 98.8 106 20 131/83 96 98.8 05/13/18 04:00 108 05/13/18 00:00 98.4 108 20 130/88 96 98.4 05/13/18 00:00 110 05/12/18 20:00 97 05/12/18 20:00 98.2 102 20 154/83 98 98.2 05/12/18 18:32 97.8 05/12/18 18:02 97.8 05/12/18 16:00 98 05/12/18 14:56 97.8 Intake and Output 05/12/18 05/13/18 19:00 07:00 Intake Total 120 ml Output Total 800 ml Balance 120 ml -800 ml Intake Oral 120 ml Output Urine Total 800 ml # Voids 2 Laboratory Tests 05/12/18 18:00: Troponin I 0.000 05/13/18 07:30: White Blood Count 5.3, Red Blood Count 5.32, Hemoglobin 13.8L, Hematocrit 44.4, Mean Corpuscular Volume 83, Mean Corpuscular Hemoglobin 25.9L, Mean Corpuscular Hemoglobin Concent 31.1L, Red Cell Distribution Width 17.3H, Platelet Count 352 , Mean Platelet Volume 6.2L, Neutrophils (%) (Auto) , Lymphocytes (%) (Auto) , Monocytes (%) (Auto) , Eosinophils (%) (Auto) , Basophils (%) (Auto) , Differential Total Cells Counted 100, Neutrophils % (Manual) 38L, Lymphocytes % (Manual) 39, Monocytes % (Manual) 19H, Eosinophils % (Manual) 2, Basophils % ( Manual) 2, Band Neutrophils 0, Platelet Estimate Adequate, Platelet Morphology Normal, Hypochromasia 1+, Anisocytosis 1+, Sodium Level 135L, Potassium Level 4.7, Chloride Level 102, Carbon Dioxide Level 24, Anion Gap 9, Blood Urea Nitrogen 21H, Creatinine 1.5H, Estimat Glomerular Filtration Rate 56.4, Glucose Level 93, Hemoglobin A1c 5.8, Uric Acid 6.1, Calcium Level 8.7, Phosphorus Level 4.4, Magnesium Level 2.1, Total Bilirubin 0.3, Gamma Glutamyl Transpeptidase 55, Aspartate Amino Transf (AST/SGOT) 23, Alanine Aminotransferase (ALT/SGPT) 21, Alkaline Phosphatase 107, Total Creatine Kinase 156, C-Reactive Protein, Quantitative 1.4H, Pro-B-Type Natriuretic Peptide 744H , Total Protein 7.4, Albumin 3.1L, Globulin 4.3, Albumin/Globulin Ratio 0.7L, Triglycerides Level 116, Cholesterol Level 184, LDL Cholesterol 113H, HDL Cholesterol 62H, Cholesterol/HDL Ratio 3.0L, Vitamin B12 Level 265, Folate 9.5, Thyroid Stimulating Hormone (TSH) 0.446 05/13/18 09:00: Urine Eosinophils None seen Height (Feet): 6 Height (Inches): 1.00 Weight (Pounds): 137 General Appearance: no apparent distress, alert Neurologic: oriented x 3, responsive, depressed affect Rachael Buckley M.D. May 13, 2018 13:05
--- NOTE | 2018-05-13 13:14 | Nephrology Progress Note ---
Assessment/Plan Assessment Chest pain, ACS h/o CABGS CHF exacerbation COPD exacerbation Chronic ulcer of right leg Cellulitis of right leg / Ankle Malnutrition Hypothyroidism Plan acute on chronic renal failure Avoid Nephrotoxics Keep BP in check Monitor renal parameters Urine studies per ID / Podiatry Subjective ROS Limited/Unobtainable: No Constitutional: Reports: malaise Objective Objective Last 24 Hour Vital Signs Date Time Temp Pulse Resp B/P (MAP) Pulse Ox O2 Delivery O2 Flow Rate FiO2 05/13/18 12:00 104 05/13/18 12:00 97.6 98 18 131/80 97 97.6 05/13/18 09:09 80 150/89 05/13/18 08:00 97.8 80 18 150/89 100 97.8 05/13/18 08:00 105 05/13/18 04:00 98.8 106 20 131/83 96 98.8 05/13/18 04:00 108 05/13/18 00:00 98.4 108 20 130/88 96 98.4 05/13/18 00:00 110 05/12/18 20:00 97 05/12/18 20:00 98.2 102 20 154/83 98 98.2 05/12/18 18:32 97.8 05/12/18 18:02 97.8 05/12/18 16:00 98 05/12/18 14:56 97.8 Intake and Output 05/12/18 05/13/18 19:00 07:00 Intake Total 120 ml Output Total 800 ml Balance 120 ml -800 ml Intake Oral 120 ml Output Urine Total 800 ml # Voids 2 Laboratory Tests 05/12/18 18:00: Troponin I 0.000 05/13/18 07:30: White Blood Count 5.3, Red Blood Count 5.32, Hemoglobin 13.8L, Hematocrit 44.4, Mean Corpuscular Volume 83, Mean Corpuscular Hemoglobin 25.9L, Mean Corpuscular Hemoglobin Concent 31.1L, Red Cell Distribution Width 17.3H, Platelet Count 352 , Mean Platelet Volume 6.2L, Neutrophils (%) (Auto) , Lymphocytes (%) (Auto) , Monocytes (%) (Auto) , Eosinophils (%) (Auto) , Basophils (%) (Auto) , Differential Total Cells Counted 100, Neutrophils % (Manual) 38L, Lymphocytes % (Manual) 39, Monocytes % (Manual) 19H, Eosinophils % (Manual) 2, Basophils % ( Manual) 2, Band Neutrophils 0, Platelet Estimate Adequate, Platelet Morphology Normal, Hypochromasia 1+, Anisocytosis 1+, Sodium Level 135L, Potassium Level 4.7, Chloride Level 102, Carbon Dioxide Level 24, Anion Gap 9, Blood Urea Nitrogen 21H, Creatinine 1.5H, Estimat Glomerular Filtration Rate 56.4, Glucose Level 93, Hemoglobin A1c 5.8, Uric Acid 6.1, Calcium Level 8.7, Phosphorus Level 4.4, Magnesium Level 2.1, Total Bilirubin 0.3, Gamma Glutamyl Transpeptidase 55, Aspartate Amino Transf (AST/SGOT) 23, Alanine Aminotransferase (ALT/SGPT) 21, Alkaline Phosphatase 107, Total Creatine Kinase 156, C-Reactive Protein, Quantitative 1.4H, Pro-B-Type Natriuretic Peptide 744H , Total Protein 7.4, Albumin 3.1L, Globulin 4.3, Albumin/Globulin Ratio 0.7L, Triglycerides Level 116, Cholesterol Level 184, LDL Cholesterol 113H, HDL Cholesterol 62H, Cholesterol/HDL Ratio 3.0L, Vitamin B12 Level 265, Folate 9.5, Thyroid Stimulating Hormone (TSH) 0.446 05/13/18 09:00: Urine Eosinophils None seen Height (Feet): 6 Height (Inches): 1.00 Weight (Pounds): 137 General Appearance: no apparent distress Cardiovascular: tachycardia Abdomen: soft Extremities: other - no change KACEY BERNSTEIN May 13, 2018 13:14
--- NOTE | 2018-05-13 13:23 | Cardiology Progress Note ---
Assessment/Plan Status: stable Assessment/Plan -Aspirin -Statin -Nitro prn chest pain Serial EKG and troponin - reviewed, no ACS TTE with normal LV function and valvular apparatus Due to hx of PCI and CAD patient will need stress test prior to discharge and high MARTHA score If troponin rising, increasing chest pain, hemodynamic instability, EKG changes then start heparin gtt and will arrange cardiac cath Antibiotics for LE cellulitis Subjective Cardiovascular: Reports: no symptoms Respiratory: Reports: no symptoms Gastrointestinal/Abdominal: Reports: no symptoms Genitourinary: Reports: no symptoms Subjective No acute events, tolerating PO, no CP currently, vitals stable, troponin negative x2, Echo with preserved LV Function Objective Last 24 Hour Vital Signs Date Time Temp Pulse Resp B/P (MAP) Pulse Ox O2 Delivery O2 Flow Rate FiO2 05/13/18 12:00 104 05/13/18 12:00 97.6 98 18 131/80 97 97.6 05/13/18 09:09 80 150/89 05/13/18 08:00 97.8 80 18 150/89 100 97.8 05/13/18 08:00 105 05/13/18 04:00 98.8 106 20 131/83 96 98.8 05/13/18 04:00 108 05/13/18 00:00 98.4 108 20 130/88 96 98.4 05/13/18 00:00 110 05/12/18 20:00 97 05/12/18 20:00 98.2 102 20 154/83 98 98.2 05/12/18 18:32 97.8 05/12/18 18:02 97.8 05/12/18 16:00 98 05/12/18 14:56 97.8 General Appearance: no apparent distress EENT: PERRL/EOMI Neck: non-tender Rhythm: SB Cardiovascular: normal rate Respiratory/Chest: lungs clear Abdomen: normal bowel sounds Extremities: normal range of motion Neurologic: host and hostess II-XII grossly normal Intake and Output 05/12/18 05/13/18 19:00 07:00 Intake Total 120 ml Output Total 800 ml Balance 120 ml -800 ml Intake Oral 120 ml Output Urine Total 800 ml # Voids 2 Laboratory Tests Test 05/12/18 18:00 05/13/18 07:30 05/13/18 09:00 Troponin I 0.000 ng/mL (0.000-0.056) White Blood Count 5.3 K/UL (4.8-10.8) Red Blood Count 5.32 M/UL (4.70-6.10) Hemoglobin 13.8 G/DL (14.2-18.0) L Hematocrit 44.4 % (42.0-52.0) Mean Corpuscular Volume 83 FL (80-99) Mean Corpuscular Hemoglobin 25.9 PG (27.0-31.0) L Mean Corpuscular Hemoglobin Concent 31.1 G/DL (32.0-36.0) L Red Cell Distribution Width 17.3 % (11.6-14.8) H Platelet Count 352 K/UL (150-450) Mean Platelet Volume 6.2 FL (6.5-10.1) L Neutrophils (%) (Auto) % (45.0-75.0) Lymphocytes (%) (Auto) % (20.0-45.0) Monocytes (%) (Auto) % (1.0-10.0) Eosinophils (%) (Auto) % (0.0-3.0) Basophils (%) (Auto) % (0.0-2.0) Differential Total Cells Counted 100 Neutrophils % (Manual) 38 % (45-75) L Lymphocytes % (Manual) 39 % (20-45) Monocytes % (Manual) 19 % (1-10) H Eosinophils % (Manual) 2 % (0-3) Basophils % (Manual) 2 % (0-2) Band Neutrophils 0 % (0-8) Platelet Estimate Adequate Platelet Morphology Normal Hypochromasia 1+ Anisocytosis 1+ Sodium Level 135 MMOL/L (136-145) L Potassium Level 4.7 MMOL/L (3.5-5.1) Chloride Level 102 MMOL/L (98-107) Carbon Dioxide Level 24 MMOL/L (21-32) Anion Gap 9 mmol/L (5-15) Blood Urea Nitrogen 21 mg/dL (7-18) H Creatinine 1.5 MG/DL (0.55-1.30) H Estimat Glomerular Filtration Rate 56.4 mL/min (>60) Glucose Level 93 MG/DL (74-106) Hemoglobin A1c 5.8 % (4.3-6.0) Uric Acid 6.1 MG/DL (2.6-7.2) Calcium Level 8.7 MG/DL (8.5-10.1) Phosphorus Level 4.4 MG/DL (2.5-4.9) Magnesium Level 2.1 MG/DL (1.8-2.4) Total Bilirubin 0.3 MG/DL (0.2-1.0) Gamma Glutamyl Transpeptidase 55 U/L (5-85) Aspartate Amino Transf (AST/SGOT) 23 U/L (15-37) Alanine Aminotransferase (ALT/SGPT) 21 U/L (12-78) Alkaline Phosphatase 107 U/L (46-116) Total Creatine Kinase 156 U/L (26-308) C-Reactive Protein, Quantitative 1.4 mg/dL (0.00-0.90) H Pro-B-Type Natriuretic Peptide 744 pg/mL (0-125) H Total Protein 7.4 G/DL (6.4-8.2) Albumin 3.1 G/DL (3.4-5.0) L Globulin 4.3 g/dL Albumin/Globulin Ratio 0.7 (1.0-2.7) L Triglycerides Level 116 MG/DL (30-150) Cholesterol Level 184 MG/DL (< 200) LDL Cholesterol 113 mg/dL (<100) H HDL Cholesterol 62 MG/DL (40-60) H Cholesterol/HDL Ratio 3.0 (3.3-4.4) L Vitamin B12 Level 265 PG/ML (193-986) Folate 9.5 NG/ML (8.6-58.9) Thyroid Stimulating Hormone (TSH) 0.446 uiU/mL (0.358-3.740) Urine Eosinophils None seen Adonis Winn M.D. May 13, 2018 13:23
[2018-05-13 16:00] VITALS: BP 141/80
--- NOTE | 2018-05-13 16:45 | Infectious Diseases Prog Note ---
Assessment/Plan Assessment/Plan Assessment: Chest pain B/l leg swelling L> R, L leg cellulitis: improving R Ankle chronic ulcer- healing, no signs of infection -R foot xray 03/2018: No acute injury identified. Abnormal fifth MPJ joint which may be on the basis of previous surgery/trauma or old erosive process. Osteoporosis Afebrile, no leukocytosis\ -u/a neg -CXR No acute process HTN severe malnutrition MDD tobacco abuse seizure disorder emphysema DM2 CAD s/p CABG COPD -recent exacerbation requiring admission 02/2018 bedbound Plan: -Continue Ancef #2/5 for L leg cellulitis; upon discharge can transition to PO Keflex -05/12 SP Cefepime and Zosyn x1 -/ SP PO Levaquin #3 -03/23/18 SP Zosyn #2 -f/u B/l V. duplex -f/u cx -Monitor CBC/BMP, temperatures Thank you for this consultation. Will continue to monitor Discussed with RN. Subjective Allergies: Coded Allergies: EGG (Verified Allergy, Unknown, 09/22/15) MEPERIDINE (Verified Allergy, Unknown, 12/21/10) MORPHINE (Verified Allergy, Unknown, Shortness of Breath, 01/24/14) itching,shortness of breath,dyspnea NITROGLYCERIN (Verified Allergy, Unknown, hives, 02/18/17) Subjective afebrile no leukocytosis cellulitis and swelling improving Objective Vital Signs Last 24 Hour Vital Signs Date Time Temp Pulse Resp B/P (MAP) Pulse Ox O2 Delivery O2 Flow Rate FiO2 05/13/18 16:00 102 05/13/18 16:00 99.1 99 18 141/80 97 99.1 05/13/18 12:00 104 05/13/18 12:00 97.6 98 18 131/80 97 97.6 05/13/18 09:09 80 150/89 05/13/18 08:00 97.8 80 18 150/89 100 97.8 05/13/18 08:00 105 05/13/18 04:00 98.8 106 20 131/83 96 98.8 05/13/18 04:00 108 05/13/18 00:00 98.4 108 20 130/88 96 98.4 05/13/18 00:00 110 05/12/18 20:00 97 05/12/18 20:00 98.2 102 20 154/83 98 98.2 05/12/18 18:32 97.8 05/12/18 18:02 97.8 Height (Feet): 6 Height (Inches): 1.00 Weight (Pounds): 137 Objective General Appearance: no apparent distress Lines, tubes and drains: peripheral HEENT: normocephalic Neck: non-tender Respiratory/Chest: chest wall non-tender Cardiovascular/Chest: normal peripheral pulses Abdomen: normal bowel sounds Extremities: normal range of motion; L>R b/l swelling; L leg swelling, erythema and warmth, TTP Skin Exam: normal pigmentation Neurologic: press and blow machine tender II-XII grossly normal Laboratory Tests Test 05/12/18 18:00 05/13/18 07:30 05/13/18 09:00 Troponin I 0.000 ng/mL (0.000-0.056) White Blood Count 5.3 K/UL (4.8-10.8) Red Blood Count 5.32 M/UL (4.70-6.10) Hemoglobin 13.8 G/DL (14.2-18.0) L Hematocrit 44.4 % (42.0-52.0) Mean Corpuscular Volume 83 FL (80-99) Mean Corpuscular Hemoglobin 25.9 PG (27.0-31.0) L Mean Corpuscular Hemoglobin Concent 31.1 G/DL (32.0-36.0) L Red Cell Distribution Width 17.3 % (11.6-14.8) H Platelet Count 352 K/UL (150-450) Mean Platelet Volume 6.2 FL (6.5-10.1) L Neutrophils (%) (Auto) % (45.0-75.0) Lymphocytes (%) (Auto) % (20.0-45.0) Monocytes (%) (Auto) % (1.0-10.0) Eosinophils (%) (Auto) % (0.0-3.0) Basophils (%) (Auto) % (0.0-2.0) Differential Total Cells Counted 100 Neutrophils % (Manual) 38 % (45-75) L Lymphocytes % (Manual) 39 % (20-45) Monocytes % (Manual) 19 % (1-10) H Eosinophils % (Manual) 2 % (0-3) Basophils % (Manual) 2 % (0-2) Band Neutrophils 0 % (0-8) Platelet Estimate Adequate Platelet Morphology Normal Hypochromasia 1+ Anisocytosis 1+ Sodium Level 135 MMOL/L (136-145) L Potassium Level 4.7 MMOL/L (3.5-5.1) Chloride Level 102 MMOL/L (98-107) Carbon Dioxide Level 24 MMOL/L (21-32) Anion Gap 9 mmol/L (5-15) Blood Urea Nitrogen 21 mg/dL (7-18) H Creatinine 1.5 MG/DL (0.55-1.30) H Estimat Glomerular Filtration Rate 56.4 mL/min (>60) Glucose Level 93 MG/DL (74-106) Hemoglobin A1c 5.8 % (4.3-6.0) Uric Acid 6.1 MG/DL (2.6-7.2) Calcium Level 8.7 MG/DL (8.5-10.1) Phosphorus Level 4.4 MG/DL (2.5-4.9) Magnesium Level 2.1 MG/DL (1.8-2.4) Total Bilirubin 0.3 MG/DL (0.2-1.0) Gamma Glutamyl Transpeptidase 55 U/L (5-85) Aspartate Amino Transf (AST/SGOT) 23 U/L (15-37) Alanine Aminotransferase (ALT/SGPT) 21 U/L (12-78) Alkaline Phosphatase 107 U/L (46-116) Total Creatine Kinase 156 U/L (26-308) C-Reactive Protein, Quantitative 1.4 mg/dL (0.00-0.90) H Pro-B-Type Natriuretic Peptide 744 pg/mL (0-125) H Total Protein 7.4 G/DL (6.4-8.2) Albumin 3.1 G/DL (3.4-5.0) L Globulin 4.3 g/dL Albumin/Globulin Ratio 0.7 (1.0-2.7) L Triglycerides Level 116 MG/DL (30-150) Cholesterol Level 184 MG/DL (< 200) LDL Cholesterol 113 mg/dL (<100) H HDL Cholesterol 62 MG/DL (40-60) H Cholesterol/HDL Ratio 3.0 (3.3-4.4) L Vitamin B12 Level 265 PG/ML (193-986) Folate 9.5 NG/ML (8.6-58.9) Thyroid Stimulating Hormone (TSH) 0.446 uiU/mL (0.358-3.740) Urine Eosinophils None seen Current Medications Medications (Trade) Dose Ordered Sig/Aminata Route PRN Reason Start Time Stop Time Status Last Admin Dose Admin Acetaminophen (Tylenol) 650 mg Q4H PRN ORAL fever 05/12/18 06:30 06/11/18 06:29 Albuterol/ Ipratropium (Albuterol/ Ipratropium) 3 ml Q4H PRN HHN Shortness of Breath 05/12/18 06:30 05/17/18 06:29 Amlodipine Besylate (Norvasc) 10 mg DAILY ORAL 05/12/18 09:00 06/11/18 08:59 05/13/18 09:09 Atorvastatin Calcium (Lipitor) 20 mg BEDTIME ORAL 05/12/18 21:00 06/11/18 20:59 05/12/18 21:21 Cefazolin Sodium 1 gm/Dextrose 110 ml @ 220 mls/hr Q8HR IVPB 05/13/18 06:00 05/20/18 05:59 05/13/18 14:34 Clopidogrel Bisulfate (Plavix) 75 mg DAILY ORAL 05/12/18 09:00 06/11/18 08:59 05/13/18 09:11 Dextrose (Dextrose 50%) STAT PRN IV Hypoglycemia 05/12/18 06:30 06/11/18 06:29 Diphenhydramine HCl (Benadryl) 25 mg Q3H PRN IVP Itching 05/12/18 08:30 06/11/18 08:29 05/12/18 21:22 Heparin Sodium (Porcine) (Heparin 5000 units/ml) 5,000 units EVERY 12 HOURS SUBQ 05/12/18 09:00 06/11/18 08:59 05/13/18 09:17 Lansoprazole (Prevacid) 30 mg BID ORAL 05/12/18 18:00 06/11/18 17:59 05/13/18 09:11 Levetiracetam (Keppra) 500 mg EVERY 12 HOURS ORAL 05/12/18 09:00 06/11/18 08:59 05/13/18 09:10 Mirtazapine (Remeron) 15 mg BEDTIME ORAL 05/12/18 21:00 06/11/18 20:59 05/12/18 21:21 Morphine Sulfate (Morphine Sulfate) 2 mg Q3H PRN IVP For Pain 05/12/18 08:30 05/19/18 08:29 05/13/18 15:24 Nitroglycerin (Ntg) 0.4 mg Q5M PRN SL Prn Chest Pain 05/12/18 12:00 06/11/18 11:59 Ondansetron HCl (Zofran) 4 mg Q6H PRN IVP Nausea & Vomiting 05/12/18 06:30 06/11/18 06:29 Polyethylene Glycol (Miralax) 17 gm DAILYPRN PRN ORAL Constipation 05/12/18 06:30 06/11/18 06:29 Temazepam (Restoril) 15 mg HSPRN PRN ORAL Insomnia 05/12/18 06:30 05/19/18 06:29 Theophylline (Wilfrido-Dur) 100 mg EVERY 12 HOURS ORAL 05/12/18 09:00 06/11/18 08:59 05/13/18 09:12 Jessica Parry M.D. May 13, 2018 16:45
[2018-05-13] MEDS: DiphenhydrAMINE 50mg/ml Inj IVP PRN ×2 (18:22→21:33)
[2018-05-13 20:00] VITALS: BP 125/73
[2018-05-13] MEDS: Atorvastatin 20mg tab ORAL SCH (21:32)
[2018-05-14] VITALS: BP 137/69
[2018-05-14] MEDS: Morphine Sulfate 2mg/ml Inj IVP PRN ×6 (01:36→20:49)
[2018-05-14] MEDS: DiphenhydrAMINE 50mg/ml Inj IVP PRN ×6 (01:37→22:13)
[2018-05-14 04:00] VITALS: BP 116/69
[2018-05-14] MEDS: ceFAZolin sod 1 GM in D5W 110 ML IVPB SCH ×3 (06:00→21:56)
[2018-05-14 08:00] VITALS: BP 117/79
[2018-05-14] MEDS: Heparin 5000 units/ml inj SUBQ SCH ×2 (09:00→20:50)
[2018-05-14] MEDS: Theophylline ER 100mg ORAL SCH ×2 (09:43→20:49)
[2018-05-14 09:47] LABS: PHOSPHORUS 3.6 MG/DL (2.5-4.9)
[2018-05-14 09:53] LABS: BASOPHILS % (AUTO) 2.1 % (0.0-2.0); HEMATOCRIT 43.9 % (42.0-52.0); HEMOGLOBIN 13.9 G/DL (14.2-18.0); LYMPHOCYTES % (AUTO) 42.3 % (20.0-45.0); MEAN CORPUSCULAR VOLUME 83 FL (80-99); MONOCYTES % (AUTO) 12.1 % (1.0-10.0); NEUTROPHILS % (AUTO) 38.5 % (45.0-75.0); PLATELET COUNT 355 K/UL (150-450); RED BLOOD COUNT 5.27 M/UL (4.70-6.10); RED CELL DISTRIBUTION WIDTH 17.3 % (11.6-14.8)
[2018-05-14 10:00] LABS: ALANINE AMINOTRANSFERASE 19 U/L (12-78); ALBUMIN 3.2 G/DL (3.4-5.0); ALBUMIN/GLOBULIN RATIO 0.8 (1.0-2.7); ALKALINE PHOSPHATASE 103 U/L (46-116); ANION GAP 9 mmol/L (5-15); ASPARTATE AMINO TRANSFERASE 21 U/L (15-37); BILIRUBIN,TOTAL 0.2 MG/DL (0.2-1.0); BLOOD UREA NITROGEN 20 mg/dL (7-18); CALCIUM 8.6 MG/DL (8.5-10.1); CARBON DIOXIDE 23 MMOL/L (21-32); CHLORIDE 105 MMOL/L (98-107); CREATININE 1.5 MG/DL (0.55-1.30); POTASSIUM 4.2 MMOL/L (3.5-5.1); SODIUM 137 MMOL/L (136-145)
--- NOTE | 2018-05-14 10:51 | Pulmonology Progress Note ---
Assessment/Plan Problems: (1) ACS (acute coronary syndrome) (2) Cellulitis of right ankle (3) Severe malnutrition (4) Emphysema lung (5) Hypothyroidism (6) Chronic pain (7) Hx of CABG Assessment/Plan pending stress test pain management f/u renal parameters wound care check electrolytes continue abx respiratory treatment dvt prophylaxis Subjective ROS Limited/Unobtainable: No Constitutional: Reports: no symptoms HEENT: Repors: no symptoms Respiratory: Reports: no symptoms Allergies: Coded Allergies: EGG (Verified Allergy, Unknown, 09/22/15) MEPERIDINE (Verified Allergy, Unknown, 12/21/10) MORPHINE (Verified Allergy, Unknown, Shortness of Breath, 01/24/14) itching,shortness of breath,dyspnea NITROGLYCERIN (Verified Allergy, Unknown, hives, 02/18/17) Objective Last 24 Hour Vital Signs Date Time Temp Pulse Resp B/P (MAP) Pulse Ox O2 Delivery O2 Flow Rate FiO2 05/14/18 09:45 112 117/79 05/14/18 09:44 98.0 05/14/18 08:00 98.5 112 20 117/79 100 Room Air 21 98.5 05/14/18 08:00 103 05/14/18 04:00 98.0 102 21 116/69 100 98.0 05/14/18 04:00 102 05/14/18 00:00 98.2 88 20 137/69 100 98.2 05/14/18 00:00 116 05/13/18 20:00 97.8 80 17 125/73 100 97.8 05/13/18 20:00 117 05/13/18 19:53 102 18 97 Room Air 21 05/13/18 19:38 109 18 Room Air 21 05/13/18 19:37 109 18 95 Room Air 21 05/13/18 16:00 102 05/13/18 16:00 99.1 99 18 141/80 97 99.1 05/13/18 12:00 104 05/13/18 12:00 97.6 98 18 131/80 97 97.6 Intake and Output 05/13/18 05/14/18 19:00 07:00 Intake Total 1710 ml Output Total 600 ml Balance 1710 ml -600 ml IV Total 110 ml Other 1600 ml Output Urine Total 600 ml # Voids 3 General Appearance: WD/WN HEENT: normocephalic, anicteric Respiratory/Chest: chest wall non-tender, lungs clear Cardiovascular: normal peripheral pulses, regular rhythm Abdomen: normal bowel sounds, no organomegaly Extremities: no cyanosis Skin: rash, lesions Laboratory Tests 05/14/18 04:00: Urine Eosinophils [Pending] 05/14/18 08:40: White Blood Count 5.0, Red Blood Count 5.27, Hemoglobin 13.9L, Hematocrit 43.9, Mean Corpuscular Volume 83, Mean Corpuscular Hemoglobin 26.3L, Mean Corpuscular Hemoglobin Concent 31.6L, Red Cell Distribution Width 17.3H, Platelet Count 355 , Mean Platelet Volume 6.0L, Neutrophils (%) (Auto) 38.5L, Lymphocytes (%) (Auto ) 42.3, Monocytes (%) (Auto) 12.1H, Eosinophils (%) (Auto) 5.0H, Basophils (%) ( Auto) 2.1H, Sodium Level 137, Potassium Level 4.2, Chloride Level 105, Carbon Dioxide Level 23, Anion Gap 9, Blood Urea Nitrogen 20H, Creatinine 1.5H, Estimat Glomerular Filtration Rate 56.4, Glucose Level 154H, Calcium Level 8.6, Phosphorus Level 3.6, Magnesium Level 2.2, Total Bilirubin 0.2, Aspartate Amino Transf (AST/SGOT) 21, Alanine Aminotransferase (ALT/SGPT) 19, Alkaline Phosphatase 103, Pro-B-Type Natriuretic Peptide 562H, Total Protein 7.3, Albumin 3.2L, Globulin 4.1, Albumin/Globulin Ratio 0.8L Current Medications Medications (Trade) Dose Ordered Sig/Aminata Route PRN Reason Start Time Stop Time Status Last Admin Dose Admin Acetaminophen (Tylenol) 650 mg Q4H PRN ORAL fever 05/12/18 06:30 06/11/18 06:29 Albuterol/ Ipratropium (Albuterol/ Ipratropium) 3 ml Q4H PRN HHN Shortness of Breath 05/12/18 06:30 05/17/18 06:29 05/13/18 19:34 Amlodipine Besylate (Norvasc) 10 mg DAILY ORAL 05/12/18 09:00 06/11/18 08:59 05/14/18 09:45 Atorvastatin Calcium (Lipitor) 20 mg BEDTIME ORAL 05/12/18 21:00 06/11/18 20:59 05/13/18 21:32 Cefazolin Sodium 1 gm/Dextrose 110 ml @ 220 mls/hr Q8HR IVPB 05/13/18 06:00 05/20/18 05:59 05/13/18 21:47 Clopidogrel Bisulfate (Plavix) 75 mg DAILY ORAL 05/12/18 09:00 06/11/18 08:59 05/14/18 09:43 Dextrose (Dextrose 50%) STAT PRN IV Hypoglycemia 05/12/18 06:30 06/11/18 06:29 Diphenhydramine HCl (Benadryl) 25 mg Q3H PRN IVP Itching 05/12/18 08:30 06/11/18 08:29 05/14/18 09:44 Heparin Sodium (Porcine) (Heparin 5000 units/ml) 5,000 units EVERY 12 HOURS SUBQ 05/12/18 09:00 06/11/18 08:59 05/13/18 21:34 Lansoprazole (Prevacid) 30 mg BID ORAL 05/12/18 18:00 06/11/18 17:59 05/14/18 09:43 Levetiracetam (Keppra) 500 mg EVERY 12 HOURS ORAL 05/12/18 09:00 06/11/18 08:59 05/14/18 09:43 Mirtazapine (Remeron) 15 mg BEDTIME ORAL 05/12/18 21:00 06/11/18 20:59 05/13/18 21:32 Morphine Sulfate (Morphine Sulfate) 2 mg Q3H PRN IVP For Pain 05/12/18 08:30 05/19/18 08:29 05/14/18 09:44 Nitroglycerin (Ntg) 0.4 mg Q5M PRN SL Prn Chest Pain 05/12/18 12:00 06/11/18 11:59 Ondansetron HCl (Zofran) 4 mg Q6H PRN IVP Nausea & Vomiting 05/12/18 06:30 06/11/18 06:29 Polyethylene Glycol (Miralax) 17 gm DAILYPRN PRN ORAL Constipation 05/12/18 06:30 06/11/18 06:29 Temazepam (Restoril) 15 mg HSPRN PRN ORAL Insomnia 05/12/18 06:30 05/19/18 06:29 Theophylline (Wilfrido-Dur) 100 mg EVERY 12 HOURS ORAL 05/12/18 09:00 06/11/18 08:59 05/14/18 09:43 Jessie Magana MD May 14, 2018 10:51
[2018-05-14 12:00] VITALS: BP 135/74
[2018-05-14] MEDS ORDERED: Lexiscan 0.4mg/5ml syringe IV SCH (12:00)
--- NOTE | 2018-05-14 12:17 | General Progress Note ---
Assessment/Plan Assessment/Plan Mdd poor appetite failure to thrive remeron 15mg qhs provided ro/st Subjective Date patient seen: May 14, 2018 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: Reports: anxiety, depressed, emotional problems Allergies: Coded Allergies: EGG (Verified Allergy, Unknown, 09/22/15) MEPERIDINE (Verified Allergy, Unknown, 12/21/10) MORPHINE (Verified Allergy, Unknown, Shortness of Breath, 01/24/14) itching,shortness of breath,dyspnea NITROGLYCERIN (Verified Allergy, Unknown, hives, 02/18/17) Subjective the pt is doing better today Objective Last 24 Hour Vital Signs Date Time Temp Pulse Resp B/P (MAP) Pulse Ox O2 Delivery O2 Flow Rate FiO2 05/14/18 10:14 98.0 05/14/18 09:45 112 117/79 05/14/18 09:44 98.0 05/14/18 08:00 98.5 112 20 117/79 100 Room Air 21 98.5 05/14/18 08:00 103 05/14/18 04:00 98.0 102 21 116/69 100 98.0 05/14/18 04:00 102 05/14/18 00:00 98.2 88 20 137/69 100 98.2 05/14/18 00:00 116 05/13/18 20:00 97.8 80 17 125/73 100 97.8 05/13/18 20:00 117 05/13/18 19:53 102 18 97 Room Air 21 05/13/18 19:38 109 18 Room Air 21 05/13/18 19:37 109 18 95 Room Air 21 05/13/18 16:00 102 05/13/18 16:00 99.1 99 18 141/80 97 99.1 Intake and Output 05/13/18 05/14/18 19:00 07:00 Intake Total 1710 ml Output Total 600 ml Balance 1710 ml -600 ml IV Total 110 ml Other 1600 ml Output Urine Total 600 ml # Voids 3 Laboratory Tests 05/14/18 04:00: Urine Eosinophils None seen 05/14/18 08:40: White Blood Count 5.0, Red Blood Count 5.27, Hemoglobin 13.9L, Hematocrit 43.9, Mean Corpuscular Volume 83, Mean Corpuscular Hemoglobin 26.3L, Mean Corpuscular Hemoglobin Concent 31.6L, Red Cell Distribution Width 17.3H, Platelet Count 355 , Mean Platelet Volume 6.0L, Neutrophils (%) (Auto) 38.5L, Lymphocytes (%) (Auto ) 42.3, Monocytes (%) (Auto) 12.1H, Eosinophils (%) (Auto) 5.0H, Basophils (%) ( Auto) 2.1H, Sodium Level 137, Potassium Level 4.2, Chloride Level 105, Carbon Dioxide Level 23, Anion Gap 9, Blood Urea Nitrogen 20H, Creatinine 1.5H, Estimat Glomerular Filtration Rate 56.4, Glucose Level 154H, Calcium Level 8.6, Phosphorus Level 3.6, Magnesium Level 2.2, Total Bilirubin 0.2, Aspartate Amino Transf (AST/SGOT) 21, Alanine Aminotransferase (ALT/SGPT) 19, Alkaline Phosphatase 103, Pro-B-Type Natriuretic Peptide 562H, Total Protein 7.3, Albumin 3.2L, Globulin 4.1, Albumin/Globulin Ratio 0.8L Height (Feet): 6 Height (Inches): 1.00 Weight (Pounds): 137 Rachael Buckley M.D. May 14, 2018 12:17
--- NOTE | 2018-05-14 12:31 | Infectious Diseases Prog Note ---
Assessment/Plan Assessment/Plan Assessment: Chest pain B/l leg swelling L> R, L leg cellulitis: improving R Ankle chronic ulcer- healing, no signs of infection -R foot xray 03/2018: No acute injury identified. Abnormal fifth MPJ joint which may be on the basis of previous surgery/trauma or old erosive process. Osteoporosis Afebrile, no leukocytosis\ -u/a neg -CXR No acute process HTN severe malnutrition MDD tobacco abuse seizure disorder emphysema DM2 CAD s/p CABG COPD -recent exacerbation requiring admission 02/2018 bedbound Plan: -Continue Ancef #3/5 for L leg cellulitis; upon discharge can transition to PO Keflex -05/12 SP Cefepime and Zosyn x1 -/ SP PO Levaquin #3 -03/23/18 SP Zosyn #2 -f/u B/l V. duplex -f/u cx -Monitor CBC/BMP, temperatures Thank you for this consultation. Will continue to monitor Discussed with RN. Subjective Allergies: Coded Allergies: EGG (Verified Allergy, Unknown, 09/22/15) MEPERIDINE (Verified Allergy, Unknown, 12/21/10) MORPHINE (Verified Allergy, Unknown, Shortness of Breath, 01/24/14) itching,shortness of breath,dyspnea NITROGLYCERIN (Verified Allergy, Unknown, hives, 02/18/17) Subjective afebrile no leukocytosis cellulitis and swelling improving Objective Vital Signs Last 24 Hour Vital Signs Date Time Temp Pulse Resp B/P (MAP) Pulse Ox O2 Delivery O2 Flow Rate FiO2 05/14/18 10:14 98.0 05/14/18 09:45 112 117/79 05/14/18 09:44 98.0 05/14/18 08:00 98.5 112 20 117/79 100 Room Air 21 98.5 05/14/18 08:00 103 05/14/18 04:00 98.0 102 21 116/69 100 98.0 05/14/18 04:00 102 05/14/18 00:00 98.2 88 20 137/69 100 98.2 05/14/18 00:00 116 05/13/18 20:00 97.8 80 17 125/73 100 97.8 05/13/18 20:00 117 05/13/18 19:53 102 18 97 Room Air 21 05/13/18 19:38 109 18 Room Air 21 05/13/18 19:37 109 18 95 Room Air 21 05/13/18 16:00 102 05/13/18 16:00 99.1 99 18 141/80 97 99.1 Height (Feet): 6 Height (Inches): 1.00 Weight (Pounds): 137 Objective General Appearance: no apparent distress Lines, tubes and drains: peripheral HEENT: normocephalic Neck: non-tender Respiratory/Chest: chest wall non-tender Cardiovascular/Chest: normal peripheral pulses Abdomen: normal bowel sounds Extremities: normal range of motion; L>R b/l swelling; L leg swelling, erythema and warmth, TTP Skin Exam: normal pigmentation 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 Laboratory Tests Test 05/14/18 04:00 05/14/18 08:40 Urine Eosinophils None seen White Blood Count 5.0 K/UL (4.8-10.8) Red Blood Count 5.27 M/UL (4.70-6.10) Hemoglobin 13.9 G/DL (14.2-18.0) L Hematocrit 43.9 % (42.0-52.0) Mean Corpuscular Volume 83 FL (80-99) Mean Corpuscular Hemoglobin 26.3 PG (27.0-31.0) L Mean Corpuscular Hemoglobin Concent 31.6 G/DL (32.0-36.0) L Red Cell Distribution Width 17.3 % (11.6-14.8) H Platelet Count 355 K/UL (150-450) Mean Platelet Volume 6.0 FL (6.5-10.1) L Neutrophils (%) (Auto) 38.5 % (45.0-75.0) L Lymphocytes (%) (Auto) 42.3 % (20.0-45.0) Monocytes (%) (Auto) 12.1 % (1.0-10.0) H Eosinophils (%) (Auto) 5.0 % (0.0-3.0) H Basophils (%) (Auto) 2.1 % (0.0-2.0) H Sodium Level 137 MMOL/L (136-145) Potassium Level 4.2 MMOL/L (3.5-5.1) Chloride Level 105 MMOL/L (98-107) Carbon Dioxide Level 23 MMOL/L (21-32) Anion Gap 9 mmol/L (5-15) Blood Urea Nitrogen 20 mg/dL (7-18) H Creatinine 1.5 MG/DL (0.55-1.30) H Estimat Glomerular Filtration Rate 56.4 mL/min (>60) Glucose Level 154 MG/DL (74-106) H Calcium Level 8.6 MG/DL (8.5-10.1) Phosphorus Level 3.6 MG/DL (2.5-4.9) Magnesium Level 2.2 MG/DL (1.8-2.4) Total Bilirubin 0.2 MG/DL (0.2-1.0) Aspartate Amino Transf (AST/SGOT) 21 U/L (15-37) Alanine Aminotransferase (ALT/SGPT) 19 U/L (12-78) Alkaline Phosphatase 103 U/L (46-116) Pro-B-Type Natriuretic Peptide 562 pg/mL (0-125) H Total Protein 7.3 G/DL (6.4-8.2) Albumin 3.2 G/DL (3.4-5.0) L Globulin 4.1 g/dL Albumin/Globulin Ratio 0.8 (1.0-2.7) L Current Medications Medications (Trade) Dose Ordered Sig/Aminata Route PRN Reason Start Time Stop Time Status Last Admin Dose Admin Acetaminophen (Tylenol) 650 mg Q4H PRN ORAL fever 05/12/18 06:30 06/11/18 06:29 Albuterol/ Ipratropium (Albuterol/ Ipratropium) 3 ml Q4H PRN HHN Shortness of Breath 05/12/18 06:30 05/17/18 06:29 05/13/18 19:34 Amlodipine Besylate (Norvasc) 10 mg DAILY ORAL 05/12/18 09:00 06/11/18 08:59 05/14/18 09:45 Atorvastatin Calcium (Lipitor) 20 mg BEDTIME ORAL 05/12/18 21:00 06/11/18 20:59 05/13/18 21:32 Cefazolin Sodium 1 gm/Dextrose 110 ml @ 220 mls/hr Q8HR IVPB 05/13/18 06:00 05/20/18 05:59 05/13/18 21:47 Clopidogrel Bisulfate (Plavix) 75 mg DAILY ORAL 05/12/18 09:00 06/11/18 08:59 05/14/18 09:43 Dextrose (Dextrose 50%) STAT PRN IV Hypoglycemia 05/12/18 06:30 06/11/18 06:29 Diphenhydramine HCl (Benadryl) 25 mg Q3H PRN IVP Itching 05/12/18 08:30 06/11/18 08:29 05/14/18 09:44 Heparin Sodium (Porcine) (Heparin 5000 units/ml) 5,000 units EVERY 12 HOURS SUBQ 05/12/18 09:00 06/11/18 08:59 05/13/18 21:34 Lansoprazole (Prevacid) 30 mg BID ORAL 05/12/18 18:00 06/11/18 17:59 05/14/18 09:43 Levetiracetam (Keppra) 500 mg EVERY 12 HOURS ORAL 05/12/18 09:00 06/11/18 08:59 05/14/18 09:43 Mirtazapine (Remeron) 15 mg BEDTIME ORAL 05/12/18 21:00 06/11/18 20:59 05/13/18 21:32 Morphine Sulfate (Morphine Sulfate) 3 mg Q3H PRN IVP For Pain 05/14/18 11:30 05/19/18 08:29 Nitroglycerin (Ntg) 0.4 mg Q5M PRN SL Prn Chest Pain 05/12/18 12:00 06/11/18 11:59 Ondansetron HCl (Zofran) 4 mg Q6H PRN IVP Nausea & Vomiting 05/12/18 06:30 06/11/18 06:29 Polyethylene Glycol (Miralax) 17 gm DAILYPRN PRN ORAL Constipation 05/12/18 06:30 06/11/18 06:29 Regadenoson (Lexiscan) 0.4 mg ONCE IV 05/14/18 12:00 05/14/18 14:00 Temazepam (Restoril) 15 mg HSPRN PRN ORAL Insomnia 05/12/18 06:30 05/19/18 06:29 Theophylline (Wilfrido-Dur) 100 mg EVERY 12 HOURS ORAL 05/12/18 09:00 06/11/18 08:59 05/14/18 09:43 Jessica Parry M.D. May 14, 2018 12:31
--- NOTE | 2018-05-14 15:10 | Internal Med Progress Note ---
Subjective Date of Service: May 14, 2018 Physician Name Shantanu Reyna Attending Physician Phil Wright MD Current Medications Medications (Trade) Dose Ordered Sig/Aminata Route PRN Reason Start Time Stop Time Status Last Admin Dose Admin Acetaminophen (Tylenol) 650 mg Q4H PRN ORAL fever 05/12/18 06:30 06/11/18 06:29 Albuterol/ Ipratropium (Albuterol/ Ipratropium) 3 ml Q4H PRN HHN Shortness of Breath 05/12/18 06:30 05/17/18 06:29 05/13/18 19:34 Amlodipine Besylate (Norvasc) 10 mg DAILY ORAL 05/12/18 09:00 06/11/18 08:59 05/14/18 09:45 Atorvastatin Calcium (Lipitor) 20 mg BEDTIME ORAL 05/12/18 21:00 06/11/18 20:59 05/13/18 21:32 Cefazolin Sodium 1 gm/Dextrose 110 ml @ 220 mls/hr Q8HR IVPB 05/13/18 06:00 05/20/18 05:59 05/14/18 13:34 Clopidogrel Bisulfate (Plavix) 75 mg DAILY ORAL 05/12/18 09:00 06/11/18 08:59 05/14/18 09:43 Dextrose (Dextrose 50%) STAT PRN IV Hypoglycemia 05/12/18 06:30 06/11/18 06:29 Diphenhydramine HCl (Benadryl) 25 mg Q3H PRN IVP Itching 05/12/18 08:30 06/11/18 08:29 05/14/18 13:33 Heparin Sodium (Porcine) (Heparin 5000 units/ml) 5,000 units EVERY 12 HOURS SUBQ 05/12/18 09:00 06/11/18 08:59 05/13/18 21:34 Lansoprazole (Prevacid) 30 mg BID ORAL 05/12/18 18:00 06/11/18 17:59 05/14/18 09:43 Levetiracetam (Keppra) 500 mg EVERY 12 HOURS ORAL 05/12/18 09:00 06/11/18 08:59 05/14/18 09:43 Mirtazapine (Remeron) 15 mg BEDTIME ORAL 05/12/18 21:00 06/11/18 20:59 05/13/18 21:32 Morphine Sulfate (Morphine Sulfate) 3 mg Q3H PRN IVP For Pain 05/14/18 11:30 05/19/18 08:29 05/14/18 13:21 Nitroglycerin (Ntg) 0.4 mg Q5M PRN SL Prn Chest Pain 05/12/18 12:00 06/11/18 11:59 Ondansetron HCl (Zofran) 4 mg Q6H PRN IVP Nausea & Vomiting 05/12/18 06:30 06/11/18 06:29 Polyethylene Glycol (Miralax) 17 gm DAILYPRN PRN ORAL Constipation 05/12/18 06:30 06/11/18 06:29 Temazepam (Restoril) 15 mg HSPRN PRN ORAL Insomnia 05/12/18 06:30 05/19/18 06:29 Theophylline (Wilfrido-Dur) 100 mg EVERY 12 HOURS ORAL 05/12/18 09:00 06/11/18 08:59 05/14/18 09:43 Allergies: Coded Allergies: EGG (Verified Allergy, Unknown, 09/22/15) MEPERIDINE (Verified Allergy, Unknown, 12/21/10) MORPHINE (Verified Allergy, Unknown, Shortness of Breath, 01/24/14) itching,shortness of breath,dyspnea NITROGLYCERIN (Verified Allergy, Unknown, hives, 02/18/17) ROS Limited/Unobtainable: No Constitutional: Reports: no symptoms HEENT: Reports: no symptoms Cardiovascular: Reports: chest pain Respiratory: Reports: shortness of breath Gastrointestinal/Abdominal: Reports: no symptoms Genitourinary: Reports: no symptoms 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: Reports: no symptoms Subjective 67 YO M admitted with chest pain. Now bilateral leg cellulitis with edema. Cover for Int Wilfred-Dr Wright. Objective Last Vital Signs Date Time Temp Pulse Resp B/P (MAP) Pulse Ox O2 Delivery O2 Flow Rate FiO2 05/14/18 13:51 98.0 05/14/18 12:00 112 20 135/74 100 Room Air 21 Laboratory Tests Test 05/14/18 04:00 05/14/18 08:40 Urine Eosinophils None seen White Blood Count 5.0 K/UL (4.8-10.8) Red Blood Count 5.27 M/UL (4.70-6.10) Hemoglobin 13.9 G/DL (14.2-18.0) L Hematocrit 43.9 % (42.0-52.0) Mean Corpuscular Volume 83 FL (80-99) Mean Corpuscular Hemoglobin 26.3 PG (27.0-31.0) L Mean Corpuscular Hemoglobin Concent 31.6 G/DL (32.0-36.0) L Red Cell Distribution Width 17.3 % (11.6-14.8) H Platelet Count 355 K/UL (150-450) Mean Platelet Volume 6.0 FL (6.5-10.1) L Neutrophils (%) (Auto) 38.5 % (45.0-75.0) L Lymphocytes (%) (Auto) 42.3 % (20.0-45.0) Monocytes (%) (Auto) 12.1 % (1.0-10.0) H Eosinophils (%) (Auto) 5.0 % (0.0-3.0) H Basophils (%) (Auto) 2.1 % (0.0-2.0) H Sodium Level 137 MMOL/L (136-145) Potassium Level 4.2 MMOL/L (3.5-5.1) Chloride Level 105 MMOL/L (98-107) Carbon Dioxide Level 23 MMOL/L (21-32) Anion Gap 9 mmol/L (5-15) Blood Urea Nitrogen 20 mg/dL (7-18) H Creatinine 1.5 MG/DL (0.55-1.30) H Estimat Glomerular Filtration Rate 56.4 mL/min (>60) Glucose Level 154 MG/DL (74-106) H Calcium Level 8.6 MG/DL (8.5-10.1) Phosphorus Level 3.6 MG/DL (2.5-4.9) Magnesium Level 2.2 MG/DL (1.8-2.4) Total Bilirubin 0.2 MG/DL (0.2-1.0) Aspartate Amino Transf (AST/SGOT) 21 U/L (15-37) Alanine Aminotransferase (ALT/SGPT) 19 U/L (12-78) Alkaline Phosphatase 103 U/L (46-116) Pro-B-Type Natriuretic Peptide 562 pg/mL (0-125) H Total Protein 7.3 G/DL (6.4-8.2) Albumin 3.2 G/DL (3.4-5.0) L Globulin 4.1 g/dL Albumin/Globulin Ratio 0.8 (1.0-2.7) L Intake and Output 05/13/18 05/14/18 19:00 07:00 Intake Total 1710 ml Output Total 600 ml Balance 1710 ml -600 ml IV Total 110 ml Other 1600 ml Output Urine Total 600 ml # Voids 3 Objective General Appearance: alert, moderate distress, thin EENT: PERRL/EOMI, normal ENT inspection Neck: non-tender, normal alignment, supple, normal inspection Cardiovascular: normal peripheral pulses, normal rate, regular rhythm, no gallop/murmur, no JVD Respiratory/Chest: lungs clear, normal breath sounds, no respiratory distress, no accessory muscle use Abdomen: normal bowel sounds, non tender, soft, no organomegaly, no mass Extremities: normal range of motion, other - bilateral lower extremity erythema and dry skin Edema: moderate edema 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 Continue cefazolin per ID. (4) CHF (congestive heart failure) (5) Edema (6) Ulcer of right lower leg Assessment & Plan: See podiatry note. (7) HTN (hypertension) (8) COPD exacerbation Assessment & Plan: see pulmonary note. (9) CAD (coronary artery disease) Assessment & Plan: S/P CABG-see cardiology note. (10) Renal failure Assessment & Plan: Diabetic nephropathy vs ATN. See nephrology note. (11) Chest pain Assessment & Plan: COPD vs ACS? See pulmonary and cardiology note. Status: not improved Shantanu Reyna MD May 14, 2018 15:10
--- NOTE | 2018-05-14 15:27 | Nephrology Progress Note ---
Assessment/Plan Problem List: (1) Acute on chronic renal failure (2) CAD (coronary artery disease) (3) Seizure disorder Assessment Acute on chronic renal failure Chest pain, ACS h/o CABGS CHF exacerbation COPD exacerbation Chronic ulcer of right leg Cellulitis of right leg / Ankle Malnutrition Hypothyroidism Plan Avoid Nephrotoxics Keep BP in check Monitor renal parameters Urine studies per ID / Podiatry Subjective ROS Limited/Unobtainable: No Constitutional: Reports: malaise Objective Objective Last 24 Hour Vital Signs Date Time Temp Pulse Resp B/P (MAP) Pulse Ox O2 Delivery O2 Flow Rate FiO2 05/14/18 13:51 98.0 05/14/18 12:00 98.1 112 20 135/74 100 Room Air 21 98.1 05/14/18 10:14 98.0 05/14/18 09:45 112 117/79 05/14/18 09:44 98.0 05/14/18 08:15 118 18 Room Air 21 05/14/18 08:00 98.5 112 20 117/79 100 Room Air 21 98.5 05/14/18 08:00 103 05/14/18 04:00 98.0 102 21 116/69 100 98.0 05/14/18 04:00 102 05/14/18 00:00 98.2 88 20 137/69 100 98.2 05/14/18 00:00 116 05/13/18 20:00 97.8 80 17 125/73 100 97.8 05/13/18 20:00 117 05/13/18 19:53 102 18 97 Room Air 21 05/13/18 19:38 109 18 Room Air 21 05/13/18 19:37 109 18 95 Room Air 21 05/13/18 16:00 102 05/13/18 16:00 99.1 99 18 141/80 97 99.1 Intake and Output 05/13/18 05/14/18 19:00 07:00 Intake Total 1710 ml Output Total 600 ml Balance 1710 ml -600 ml IV Total 110 ml Other 1600 ml Output Urine Total 600 ml # Voids 3 Laboratory Tests 05/14/18 04:00: Urine Eosinophils None seen 05/14/18 08:40: White Blood Count 5.0, Red Blood Count 5.27, Hemoglobin 13.9L, Hematocrit 43.9, Mean Corpuscular Volume 83, Mean Corpuscular Hemoglobin 26.3L, Mean Corpuscular Hemoglobin Concent 31.6L, Red Cell Distribution Width 17.3H, Platelet Count 355 , Mean Platelet Volume 6.0L, Neutrophils (%) (Auto) 38.5L, Lymphocytes (%) (Auto ) 42.3, Monocytes (%) (Auto) 12.1H, Eosinophils (%) (Auto) 5.0H, Basophils (%) ( Auto) 2.1H, Sodium Level 137, Potassium Level 4.2, Chloride Level 105, Carbon Dioxide Level 23, Anion Gap 9, Blood Urea Nitrogen 20H, Creatinine 1.5H, Estimat Glomerular Filtration Rate 56.4, Glucose Level 154H, Calcium Level 8.6, Phosphorus Level 3.6, Magnesium Level 2.2, Total Bilirubin 0.2, Aspartate Amino Transf (AST/SGOT) 21, Alanine Aminotransferase (ALT/SGPT) 19, Alkaline Phosphatase 103, Pro-B-Type Natriuretic Peptide 562H, Total Protein 7.3, Albumin 3.2L, Globulin 4.1, Albumin/Globulin Ratio 0.8L Height (Feet): 6 Height (Inches): 1.00 Weight (Pounds): 137 General Appearance: no apparent distress Cardiovascular: tachycardia Respiratory/Chest: decreased breath sounds Abdomen: soft KACEY BERNSTEIN May 14, 2018 15:27
[2018-05-14 16:00] VITALS: BP 119/73
--- NOTE | 2018-05-14 18:07 | Cardiology Progress Note ---
Assessment/Plan Status: stable Assessment/Plan -Aspirin -Statin -Nitro prn chest pain Serial EKG and troponin - reviewed, no ACS TTE with normal LV function and valvular apparatus Due to hx of PCI and CAD patient will need stress test prior to discharge and high MARTHA score - ordered for friday05/15/2018 If troponin rising, increasing chest pain, hemodynamic instability, EKG changes then start heparin gtt and will arrange cardiac cath Antibiotics for LE cellulitis Subjective Cardiovascular: Reports: no symptoms Respiratory: Reports: no symptoms Gastrointestinal/Abdominal: Reports: no symptoms Genitourinary: Reports: no symptoms Subjective No acute events, tolerating PO, no CP currently, vitals stable, troponin negative x2, Echo with preserved LV Function Objective Last 24 Hour Vital Signs Date Time Temp Pulse Resp B/P (MAP) Pulse Ox O2 Delivery O2 Flow Rate FiO2 05/14/18 17:15 97.6 05/14/18 16:00 129 05/14/18 16:00 97.6 114 20 119/73 100 Room Air 21 97.6 05/14/18 13:51 98.0 05/14/18 12:00 98.1 112 20 135/74 100 Room Air 21 98.1 05/14/18 12:00 106 05/14/18 10:14 98.0 05/14/18 09:45 112 117/79 05/14/18 09:44 98.0 05/14/18 08:15 118 18 Room Air 21 05/14/18 08:00 98.5 112 20 117/79 100 Room Air 21 98.5 05/14/18 08:00 103 05/14/18 04:00 98.0 102 21 116/69 100 98.0 05/14/18 04:00 102 05/14/18 00:00 98.2 88 20 137/69 100 98.2 05/14/18 00:00 116 05/13/18 20:00 97.8 80 17 125/73 100 97.8 05/13/18 20:00 117 05/13/18 19:53 102 18 97 Room Air 21 05/13/18 19:38 109 18 Room Air 21 05/13/18 19:37 109 18 95 Room Air 21 General Appearance: no apparent distress EENT: PERRL/EOMI Neck: non-tender Rhythm: NSR Cardiovascular: normal peripheral pulses Respiratory/Chest: chest wall non-tender Abdomen: normal bowel sounds Extremities: normal range of motion 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 Intake and Output 05/13/18 05/14/18 19:00 07:00 Intake Total 1710 ml Output Total 600 ml Balance 1710 ml -600 ml IV Total 110 ml Other 1600 ml Output Urine Total 600 ml # Voids 3 Laboratory Tests Test 05/14/18 04:00 05/14/18 08:40 Urine Eosinophils None seen White Blood Count 5.0 K/UL (4.8-10.8) Red Blood Count 5.27 M/UL (4.70-6.10) Hemoglobin 13.9 G/DL (14.2-18.0) L Hematocrit 43.9 % (42.0-52.0) Mean Corpuscular Volume 83 FL (80-99) Mean Corpuscular Hemoglobin 26.3 PG (27.0-31.0) L Mean Corpuscular Hemoglobin Concent 31.6 G/DL (32.0-36.0) L Red Cell Distribution Width 17.3 % (11.6-14.8) H Platelet Count 355 K/UL (150-450) Mean Platelet Volume 6.0 FL (6.5-10.1) L Neutrophils (%) (Auto) 38.5 % (45.0-75.0) L Lymphocytes (%) (Auto) 42.3 % (20.0-45.0) Monocytes (%) (Auto) 12.1 % (1.0-10.0) H Eosinophils (%) (Auto) 5.0 % (0.0-3.0) H Basophils (%) (Auto) 2.1 % (0.0-2.0) H Sodium Level 137 MMOL/L (136-145) Potassium Level 4.2 MMOL/L (3.5-5.1) Chloride Level 105 MMOL/L (98-107) Carbon Dioxide Level 23 MMOL/L (21-32) Anion Gap 9 mmol/L (5-15) Blood Urea Nitrogen 20 mg/dL (7-18) H Creatinine 1.5 MG/DL (0.55-1.30) H Estimat Glomerular Filtration Rate 56.4 mL/min (>60) Glucose Level 154 MG/DL (74-106) H Calcium Level 8.6 MG/DL (8.5-10.1) Phosphorus Level 3.6 MG/DL (2.5-4.9) Magnesium Level 2.2 MG/DL (1.8-2.4) Total Bilirubin 0.2 MG/DL (0.2-1.0) Aspartate Amino Transf (AST/SGOT) 21 U/L (15-37) Alanine Aminotransferase (ALT/SGPT) 19 U/L (12-78) Alkaline Phosphatase 103 U/L (46-116) Pro-B-Type Natriuretic Peptide 562 pg/mL (0-125) H Total Protein 7.3 G/DL (6.4-8.2) Albumin 3.2 G/DL (3.4-5.0) L Globulin 4.1 g/dL Albumin/Globulin Ratio 0.8 (1.0-2.7) L Adonis Winn M.D. May 14, 2018 18:07
[2018-05-14 20:00] VITALS: BP 118/61
[2018-05-14] MEDS: Atorvastatin 20mg tab ORAL SCH (20:49)
[2018-05-15] VITALS: BP 138/78
[2018-05-15] MEDS: Morphine Sulfate 2mg/ml Inj IVP PRN ×7 (00:07→20:54)
[2018-05-15 04:00] VITALS: BP 137/84
[2018-05-15] MEDS: ceFAZolin sod 1 GM in D5W 110 ML IVPB SCH ×2 (05:26→17:51)
[2018-05-15 06:27] LABS: BASOPHILS % (AUTO) 2.3 % (0.0-2.0); EOSINOPHILS % (AUTO) 5.1 % (0.0-3.0); HEMATOCRIT 41.5 % (42.0-52.0); HEMOGLOBIN 12.8 G/DL (14.2-18.0); MEAN CORPUSCULAR VOLUME 84 FL (80-99); NEUTROPHILS % (AUTO) 36.7 % (45.0-75.0); PLATELET COUNT 314 K/UL (150-450); RED BLOOD COUNT 4.95 M/UL (4.70-6.10); RED CELL DISTRIBUTION WIDTH 17.1 % (11.6-14.8); WHITE BLOOD COUNT 5.4 K/UL (4.8-10.8)
[2018-05-15 06:44] LABS: ANION GAP 9 mmol/L (5-15); BLOOD UREA NITROGEN 25 mg/dL (7-18); CALCIUM 8.3 MG/DL (8.5-10.1); CARBON DIOXIDE 24 MMOL/L (21-32); CHLORIDE 107 MMOL/L (98-107); CREATININE 1.6 MG/DL (0.55-1.30); POTASSIUM 4.4 MMOL/L (3.5-5.1); SODIUM 140 MMOL/L (136-145)
[2018-05-15 08:00] VITALS: BP 124/81
[2018-05-15] MEDS: Heparin 5000 units/ml inj SUBQ SCH ×2 (08:50→20:57)
[2018-05-15] MEDS: Theophylline ER 100mg ORAL SCH ×2 (08:51→20:52)
[2018-05-15] MEDS: DiphenhydrAMINE 50mg/ml Inj IVP PRN (10:07)
--- NOTE | 2018-05-15 11:35 | Pulmonology Progress Note ---
Assessment/Plan Problems: (1) ACS (acute coronary syndrome) (2) Cellulitis of right ankle (3) Severe malnutrition (4) Emphysema lung (5) Hypothyroidism (6) Chronic pain (7) Hx of CABG Assessment/Plan refused stress test stress test pain management f/u renal parameters wound care check electrolytes continue abx on cefazolin / respiratory treatment dc home in am dvt prophylaxis Subjective ROS Limited/Unobtainable: No Interval Events: doing better Allergies: Coded Allergies: EGG (Verified Allergy, Unknown, 09/22/15) MEPERIDINE (Verified Allergy, Unknown, 12/21/10) MORPHINE (Verified Allergy, Unknown, Shortness of Breath, 01/24/14) itching,shortness of breath,dyspnea NITROGLYCERIN (Verified Allergy, Unknown, hives, 02/18/17) Objective Last 24 Hour Vital Signs Date Time Temp Pulse Resp B/P (MAP) Pulse Ox O2 Delivery O2 Flow Rate FiO2 05/15/18 10:07 98.1 05/15/18 08:52 96 124/81 05/15/18 08:00 98.1 96 20 124/81 96 Room Air 21 98.1 05/15/18 07:17 98.3 05/15/18 04:00 98.3 21 20 137/84 96 Room Air 98.3 105 05/15/18 04:00 100 05/15/18 00:00 106 05/15/18 00:00 98.0 106 20 138/78 95 Room Air 98.0 05/14/18 20:00 98.2 113 20 118/61 97 Room Air 98.2 05/14/18 20:00 113 05/14/18 19:52 113 18 Room Air 21 05/14/18 17:15 97.6 05/14/18 16:00 129 05/14/18 16:00 97.6 114 20 119/73 100 Room Air 21 97.6 05/14/18 12:00 98.1 112 20 135/74 100 Room Air 21 98.1 05/14/18 12:00 106 Intake and Output 05/14/18 05/15/18 19:00 07:00 Intake Total 360 ml 110 ml Output Total 300 ml 600 ml Balance 60 ml -490 ml Intake Oral 360 ml IV Total 110 ml Output Urine Total 300 ml 600 ml General Appearance: WD/WN HEENT: normocephalic, atraumatic Respiratory/Chest: chest wall non-tender, lungs clear Cardiovascular: normal peripheral pulses, normal rate, regular rhythm Abdomen: normal bowel sounds, soft, non tender Genitourinary: normal external genitalia Skin: no rash Laboratory Tests 05/15/18 06:00: White Blood Count 5.4, Red Blood Count 4.95, Hemoglobin 12.8L, Hematocrit 41.5L , Mean Corpuscular Volume 84, Mean Corpuscular Hemoglobin 25.9L, Mean Corpuscular Hemoglobin Concent 30.9L, Red Cell Distribution Width 17.1H, Platelet Count 314, Mean Platelet Volume 6.0L, Neutrophils (%) (Auto) 36.7L, Lymphocytes (%) (Auto) 40.0, Monocytes (%) (Auto) 16.0H, Eosinophils (%) (Auto) 5.1H, Basophils (%) (Auto) 2.3H, Sodium Level 140, Potassium Level 4.4, Chloride Level 107, Carbon Dioxide Level 24, Anion Gap 9, Blood Urea Nitrogen 25H, Creatinine 1.6H, Estimat Glomerular Filtration Rate 52.4, Glucose Level 122H, Calcium Level 8.3L 05/15/18 09:00: Urine Eosinophils None seen Current Medications Medications (Trade) Dose Ordered Sig/Aminata Route PRN Reason Start Time Stop Time Status Last Admin Dose Admin Acetaminophen (Tylenol) 650 mg Q4H PRN ORAL fever 05/12/18 06:30 06/11/18 06:29 Albuterol/ Ipratropium (Albuterol/ Ipratropium) 3 ml Q4H PRN HHN Shortness of Breath 05/12/18 06:30 05/17/18 06:29 05/13/18 19:34 Amlodipine Besylate (Norvasc) 10 mg DAILY ORAL 05/12/18 09:00 06/11/18 08:59 05/15/18 08:52 Atorvastatin Calcium (Lipitor) 20 mg BEDTIME ORAL 05/12/18 21:00 06/11/18 20:59 05/14/18 20:49 Cefazolin Sodium 1 gm/Dextrose 110 ml @ 220 mls/hr Q12HR@0600,1800 IVPB 05/15/18 18:00 05/20/18 05:59 Clopidogrel Bisulfate (Plavix) 75 mg DAILY ORAL 05/12/18 09:00 06/11/18 08:59 05/15/18 08:52 Dextrose (Dextrose 50%) STAT PRN IV Hypoglycemia 05/12/18 06:30 06/11/18 06:29 Diphenhydramine HCl (Benadryl) 25 mg Q3H PRN IVP Itching 05/12/18 08:30 06/11/18 08:29 05/15/18 10:07 Heparin Sodium (Porcine) (Heparin 5000 units/ml) 5,000 units EVERY 12 HOURS SUBQ 05/12/18 09:00 06/11/18 08:59 05/15/18 08:50 Lansoprazole (Prevacid) 30 mg BID ORAL 05/12/18 18:00 06/11/18 17:59 05/15/18 08:51 Levetiracetam (Keppra) 500 mg EVERY 12 HOURS ORAL 05/12/18 09:00 06/11/18 08:59 05/15/18 08:52 Mirtazapine (Remeron) 15 mg BEDTIME ORAL 05/12/18 21:00 06/11/18 20:59 05/14/18 20:49 Morphine Sulfate (Morphine Sulfate) 3 mg Q3H PRN IVP For Pain 05/14/18 11:30 05/19/18 08:29 05/15/18 10:07 Nitroglycerin (Ntg) 0.4 mg Q5M PRN SL Prn Chest Pain 05/12/18 12:00 06/11/18 11:59 Ondansetron HCl (Zofran) 4 mg Q6H PRN IVP Nausea & Vomiting 05/12/18 06:30 06/11/18 06:29 Polyethylene Glycol (Miralax) 17 gm DAILYPRN PRN ORAL Constipation 05/12/18 06:30 06/11/18 06:29 Temazepam (Restoril) 15 mg HSPRN PRN ORAL Insomnia 05/12/18 06:30 05/19/18 06:29 Theophylline (Wilfrido-Dur) 100 mg EVERY 12 HOURS ORAL 05/12/18 09:00 06/11/18 08:59 05/15/18 08:51 Jessie Magana MD May 15, 2018 11:35
[2018-05-15 12:00] VITALS: BP 131/74
--- NOTE | 2018-05-15 12:16 | Infectious Diseases Prog Note ---
Assessment/Plan Assessment/Plan Assessment: Chest pain B/l leg swelling and cellulitis L> R, L leg cellulitis: improving, now more swelling in R than left R Ankle chronic ulcer- healing, no signs of infection -R foot xray 03/2018: No acute injury identified. Abnormal fifth MPJ joint which may be on the basis of previous surgery/trauma or old erosive process. Osteoporosis Afebrile, no leukocytosis\ -u/a neg -CXR No acute process HTN severe malnutrition MDD tobacco abuse seizure disorder emphysema DM2 CAD s/p CABG COPD -recent exacerbation requiring admission 02/2018 bedbound Plan: -Continue Ancef #4/5 for L leg cellulitis; upon discharge can transition to PO Keflex -05/12 SP Cefepime and Zosyn x1 -/ SP PO Levaquin #3 -03/23/18 SP Zosyn #2 -f/u B/l V. duplex -f/u cx -Monitor CBC/BMP, temperatures Thank you for this consultation. Will continue to monitor Discussed with RN. Subjective Allergies: Coded Allergies: EGG (Verified Allergy, Unknown, 09/22/15) MEPERIDINE (Verified Allergy, Unknown, 12/21/10) MORPHINE (Verified Allergy, Unknown, Shortness of Breath, 01/24/14) itching,shortness of breath,dyspnea NITROGLYCERIN (Verified Allergy, Unknown, hives, 02/18/17) Subjective afebrile no leukocytosis cellulitis and swelling improving Objective Vital Signs Last 24 Hour Vital Signs Date Time Temp Pulse Resp B/P (MAP) Pulse Ox O2 Delivery O2 Flow Rate FiO2 05/15/18 10:37 98.1 05/15/18 10:07 98.1 05/15/18 08:52 96 124/81 05/15/18 08:00 98.1 96 20 124/81 96 Room Air 21 98.1 05/15/18 04:00 98.3 21 20 137/84 96 Room Air 98.3 105 05/15/18 04:00 100 05/15/18 00:00 106 05/15/18 00:00 98.0 106 20 138/78 95 Room Air 98.0 05/14/18 20:00 98.2 113 20 118/61 97 Room Air 98.2 05/14/18 20:00 113 05/14/18 19:52 113 18 Room Air 21 05/14/18 17:15 97.6 05/14/18 16:00 129 05/14/18 16:00 97.6 114 20 119/73 100 Room Air 21 97.6 Height (Feet): 6 Height (Inches): 1.00 Weight (Pounds): 137 Objective General Appearance: no apparent distress Lines, tubes and drains: peripheral HEENT: normocephalic Neck: non-tender Respiratory/Chest: chest wall non-tender Cardiovascular/Chest: normal peripheral pulses Abdomen: normal bowel sounds Extremities: normal range of motion; L>R b/l swelling; L leg swelling, erythema and warmth, TTP Skin Exam: normal pigmentation 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 Laboratory Tests Test 05/15/18 06:00 05/15/18 09:00 White Blood Count 5.4 K/UL (4.8-10.8) Red Blood Count 4.95 M/UL (4.70-6.10) Hemoglobin 12.8 G/DL (14.2-18.0) L Hematocrit 41.5 % (42.0-52.0) L Mean Corpuscular Volume 84 FL (80-99) Mean Corpuscular Hemoglobin 25.9 PG (27.0-31.0) L Mean Corpuscular Hemoglobin Concent 30.9 G/DL (32.0-36.0) L Red Cell Distribution Width 17.1 % (11.6-14.8) H Platelet Count 314 K/UL (150-450) Mean Platelet Volume 6.0 FL (6.5-10.1) L Neutrophils (%) (Auto) 36.7 % (45.0-75.0) L Lymphocytes (%) (Auto) 40.0 % (20.0-45.0) Monocytes (%) (Auto) 16.0 % (1.0-10.0) H Eosinophils (%) (Auto) 5.1 % (0.0-3.0) H Basophils (%) (Auto) 2.3 % (0.0-2.0) H Sodium Level 140 MMOL/L (136-145) Potassium Level 4.4 MMOL/L (3.5-5.1) Chloride Level 107 MMOL/L (98-107) Carbon Dioxide Level 24 MMOL/L (21-32) Anion Gap 9 mmol/L (5-15) Blood Urea Nitrogen 25 mg/dL (7-18) H Creatinine 1.6 MG/DL (0.55-1.30) H Estimat Glomerular Filtration Rate 52.4 mL/min (>60) Glucose Level 122 MG/DL (74-106) H Calcium Level 8.3 MG/DL (8.5-10.1) L Urine Eosinophils None seen Current Medications Medications (Trade) Dose Ordered Sig/Aminata Route PRN Reason Start Time Stop Time Status Last Admin Dose Admin Acetaminophen (Tylenol) 650 mg Q4H PRN ORAL fever 05/12/18 06:30 06/11/18 06:29 Albuterol/ Ipratropium (Albuterol/ Ipratropium) 3 ml Q4H PRN HHN Shortness of Breath 05/12/18 06:30 05/17/18 06:29 05/13/18 19:34 Amlodipine Besylate (Norvasc) 10 mg DAILY ORAL 05/12/18 09:00 06/11/18 08:59 05/15/18 08:52 Atorvastatin Calcium (Lipitor) 20 mg BEDTIME ORAL 05/12/18 21:00 06/11/18 20:59 05/14/18 20:49 Cefazolin Sodium 1 gm/Dextrose 110 ml @ 220 mls/hr Q12HR@0600,1800 IVPB 05/15/18 18:00 05/20/18 05:59 Clopidogrel Bisulfate (Plavix) 75 mg DAILY ORAL 05/12/18 09:00 06/11/18 08:59 05/15/18 08:52 Dextrose (Dextrose 50%) STAT PRN IV Hypoglycemia 05/12/18 06:30 06/11/18 06:29 Diphenhydramine HCl (Benadryl) 25 mg Q3H PRN IVP Itching 05/12/18 08:30 06/11/18 08:29 05/15/18 10:07 Heparin Sodium (Porcine) (Heparin 5000 units/ml) 5,000 units EVERY 12 HOURS SUBQ 05/12/18 09:00 06/11/18 08:59 05/15/18 08:50 Lansoprazole (Prevacid) 30 mg BID ORAL 05/12/18 18:00 06/11/18 17:59 05/15/18 08:51 Levetiracetam (Keppra) 500 mg EVERY 12 HOURS ORAL 05/12/18 09:00 06/11/18 08:59 05/15/18 08:52 Mirtazapine (Remeron) 15 mg BEDTIME ORAL 05/12/18 21:00 06/11/18 20:59 05/14/18 20:49 Morphine Sulfate (Morphine Sulfate) 3 mg Q3H PRN IVP For Pain 05/14/18 11:30 05/19/18 08:29 05/15/18 10:07 Nitroglycerin (Ntg) 0.4 mg Q5M PRN SL Prn Chest Pain 05/12/18 12:00 06/11/18 11:59 Ondansetron HCl (Zofran) 4 mg Q6H PRN IVP Nausea & Vomiting 05/12/18 06:30 06/11/18 06:29 Polyethylene Glycol (Miralax) 17 gm DAILYPRN PRN ORAL Constipation 05/12/18 06:30 06/11/18 06:29 Temazepam (Restoril) 15 mg HSPRN PRN ORAL Insomnia 05/12/18 06:30 05/19/18 06:29 Theophylline (Wilfrido-Dur) 100 mg EVERY 12 HOURS ORAL 05/12/18 09:00 06/11/18 08:59 05/15/18 08:51 Jessica Parry M.D. May 15, 2018 12:16
--- NOTE | 2018-05-15 15:14 | Nephrology Progress Note ---
Assessment/Plan Problem List: (1) Acute on chronic renal failure (2) CAD (coronary artery disease) (3) Seizure disorder Assessment Acute on chronic renal failure Chest pain, ACS h/o CABGS CHF exacerbation COPD exacerbation Chronic ulcer of right leg Cellulitis of right leg / Ankle Malnutrition Hypothyroidism Plan Avoid Nephrotoxics Keep BP in check Monitor renal parameters Urine studies per ID / Podiatry Subjective ROS Limited/Unobtainable: No Constitutional: Reports: malaise Objective Objective Last 24 Hour Vital Signs Date Time Temp Pulse Resp B/P (MAP) Pulse Ox O2 Delivery O2 Flow Rate FiO2 05/15/18 14:05 98.1 05/15/18 13:35 98.1 05/15/18 12:00 101 05/15/18 12:00 98.4 104 18 131/74 96 Room Air 21 98.4 05/15/18 10:07 98.1 05/15/18 09:54 92 18 Room Air 21 05/15/18 08:52 96 124/81 05/15/18 08:00 98.1 96 20 124/81 96 Room Air 21 98.1 05/15/18 08:00 97 05/15/18 04:00 98.3 21 20 137/84 96 Room Air 98.3 105 05/15/18 04:00 100 05/15/18 00:00 106 05/15/18 00:00 98.0 106 20 138/78 95 Room Air 98.0 05/14/18 20:00 98.2 113 20 118/61 97 Room Air 98.2 05/14/18 20:00 113 05/14/18 19:52 113 18 Room Air 21 05/14/18 17:15 97.6 05/14/18 16:00 129 05/14/18 16:00 97.6 114 20 119/73 100 Room Air 21 97.6 Intake and Output 05/14/18 05/15/18 19:00 07:00 Intake Total 360 ml 110 ml Output Total 300 ml 600 ml Balance 60 ml -490 ml Intake Oral 360 ml IV Total 110 ml Output Urine Total 300 ml 600 ml Laboratory Tests 05/15/18 06:00: White Blood Count 5.4, Red Blood Count 4.95, Hemoglobin 12.8L, Hematocrit 41.5L , Mean Corpuscular Volume 84, Mean Corpuscular Hemoglobin 25.9L, Mean Corpuscular Hemoglobin Concent 30.9L, Red Cell Distribution Width 17.1H, Platelet Count 314, Mean Platelet Volume 6.0L, Neutrophils (%) (Auto) 36.7L, Lymphocytes (%) (Auto) 40.0, Monocytes (%) (Auto) 16.0H, Eosinophils (%) (Auto) 5.1H, Basophils (%) (Auto) 2.3H, Sodium Level 140, Potassium Level 4.4, Chloride Level 107, Carbon Dioxide Level 24, Anion Gap 9, Blood Urea Nitrogen 25H, Creatinine 1.6H, Estimat Glomerular Filtration Rate 52.4, Glucose Level 122H, Calcium Level 8.3L 05/15/18 09:00: Urine Eosinophils None seen Height (Feet): 6 Height (Inches): 1.00 Weight (Pounds): 137 General Appearance: no apparent distress Objective PE no change KACEY BERNSTEIN May 15, 2018 15:13
[2018-05-15 16:00] VITALS: BP 127/74
--- NOTE | 2018-05-15 16:26 | Cardiology Progress Note ---
Assessment/Plan Assessment/Plan -Aspirin -Statin -Nitro prn chest pain Serial EKG and troponin - reviewed, no ACS TTE with normal LV function and valvular apparatus Due to hx of PCI and CAD patient will need stress test prior to discharge and high MARTHA score - patient refused - aware or R/B/A Antibiotics for LE cellulitis Ok to discharge in AM Subjective Respiratory: Reports: no symptoms Gastrointestinal/Abdominal: Reports: no symptoms Genitourinary: Reports: no symptoms Subjective No acute events, tolerating PO, no CP currently, vitals stable, troponin negative x2, Echo with preserved LV Function Patient refused stress test, states he had them in past and they were normal For discharge in AM Objective Last 24 Hour Vital Signs Date Time Temp Pulse Resp B/P (MAP) Pulse Ox O2 Delivery O2 Flow Rate FiO2 05/15/18 14:05 98.1 05/15/18 13:35 98.1 05/15/18 12:00 101 05/15/18 12:00 98.4 104 18 131/74 96 Room Air 21 98.4 05/15/18 10:07 98.1 05/15/18 09:54 92 18 Room Air 21 05/15/18 08:52 96 124/81 05/15/18 08:00 98.1 96 20 124/81 96 Room Air 21 98.1 05/15/18 08:00 97 05/15/18 04:00 98.3 21 20 137/84 96 Room Air 98.3 105 05/15/18 04:00 100 05/15/18 00:00 106 05/15/18 00:00 98.0 106 20 138/78 95 Room Air 98.0 05/14/18 20:00 98.2 113 20 118/61 97 Room Air 98.2 05/14/18 20:00 113 05/14/18 19:52 113 18 Room Air 21 05/14/18 17:15 97.6 General Appearance: no apparent distress EENT: normal ENT inspection Neck: non-tender Rhythm: NSR Cardiovascular: normal peripheral pulses Respiratory/Chest: chest wall non-tender Abdomen: normal bowel sounds Extremities: normal range of motion 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 Intake and Output 05/14/18 05/15/18 19:00 07:00 Intake Total 360 ml 110 ml Output Total 300 ml 600 ml Balance 60 ml -490 ml Intake Oral 360 ml IV Total 110 ml Output Urine Total 300 ml 600 ml Laboratory Tests Test 05/15/18 06:00 05/15/18 09:00 White Blood Count 5.4 K/UL (4.8-10.8) Red Blood Count 4.95 M/UL (4.70-6.10) Hemoglobin 12.8 G/DL (14.2-18.0) L Hematocrit 41.5 % (42.0-52.0) L Mean Corpuscular Volume 84 FL (80-99) Mean Corpuscular Hemoglobin 25.9 PG (27.0-31.0) L Mean Corpuscular Hemoglobin Concent 30.9 G/DL (32.0-36.0) L Red Cell Distribution Width 17.1 % (11.6-14.8) H Platelet Count 314 K/UL (150-450) Mean Platelet Volume 6.0 FL (6.5-10.1) L Neutrophils (%) (Auto) 36.7 % (45.0-75.0) L Lymphocytes (%) (Auto) 40.0 % (20.0-45.0) Monocytes (%) (Auto) 16.0 % (1.0-10.0) H Eosinophils (%) (Auto) 5.1 % (0.0-3.0) H Basophils (%) (Auto) 2.3 % (0.0-2.0) H Sodium Level 140 MMOL/L (136-145) Potassium Level 4.4 MMOL/L (3.5-5.1) Chloride Level 107 MMOL/L (98-107) Carbon Dioxide Level 24 MMOL/L (21-32) Anion Gap 9 mmol/L (5-15) Blood Urea Nitrogen 25 mg/dL (7-18) H Creatinine 1.6 MG/DL (0.55-1.30) H Estimat Glomerular Filtration Rate 52.4 mL/min (>60) Glucose Level 122 MG/DL (74-106) H Calcium Level 8.3 MG/DL (8.5-10.1) L Urine Eosinophils None seen Adonis Winn M.D. May 15, 2018 16:26
--- NOTE | 2018-05-15 18:40 | Internal Med Progress Note ---
Subjective Date of Service: May 15, 2018 Physician Name Shantanu Reyna Attending Physician Phil Wright MD Current Medications Medications (Trade) Dose Ordered Sig/Aminata Route PRN Reason Start Time Stop Time Status Last Admin Dose Admin Acetaminophen (Tylenol) 650 mg Q4H PRN ORAL fever 05/12/18 06:30 06/11/18 06:29 Albuterol/ Ipratropium (Albuterol/ Ipratropium) 3 ml Q4H PRN HHN Shortness of Breath 05/12/18 06:30 05/17/18 06:29 05/13/18 19:34 Amlodipine Besylate (Norvasc) 10 mg DAILY ORAL 05/12/18 09:00 06/11/18 08:59 05/15/18 08:52 Atorvastatin Calcium (Lipitor) 20 mg BEDTIME ORAL 05/12/18 21:00 06/11/18 20:59 05/14/18 20:49 Cefazolin Sodium 1 gm/Dextrose 110 ml @ 220 mls/hr Q12HR@0600,1800 IVPB 05/15/18 18:00 05/20/18 05:59 05/15/18 17:51 Clopidogrel Bisulfate (Plavix) 75 mg DAILY ORAL 05/12/18 09:00 06/11/18 08:59 05/15/18 08:52 Dextrose (Dextrose 50%) STAT PRN IV Hypoglycemia 05/12/18 06:30 06/11/18 06:29 Diphenhydramine HCl (Benadryl) 25 mg Q3H PRN IVP Itching 05/12/18 08:30 06/11/18 08:29 05/15/18 10:07 Heparin Sodium (Porcine) (Heparin 5000 units/ml) 5,000 units EVERY 12 HOURS SUBQ 05/12/18 09:00 06/11/18 08:59 05/15/18 08:50 Lansoprazole (Prevacid) 30 mg BID ORAL 05/12/18 18:00 06/11/18 17:59 05/15/18 17:51 Levetiracetam (Keppra) 500 mg EVERY 12 HOURS ORAL 05/12/18 09:00 06/11/18 08:59 05/15/18 08:52 Mirtazapine (Remeron) 15 mg BEDTIME ORAL 05/12/18 21:00 06/11/18 20:59 05/14/18 20:49 Morphine Sulfate (Morphine Sulfate) 3 mg Q3H PRN IVP For Pain 05/14/18 11:30 05/19/18 08:29 05/15/18 17:48 Nitroglycerin (Ntg) 0.4 mg Q5M PRN SL Prn Chest Pain 05/12/18 12:00 06/11/18 11:59 Ondansetron HCl (Zofran) 4 mg Q6H PRN IVP Nausea & Vomiting 05/12/18 06:30 06/11/18 06:29 Polyethylene Glycol (Miralax) 17 gm DAILYPRN PRN ORAL Constipation 05/12/18 06:30 06/11/18 06:29 Temazepam (Restoril) 15 mg HSPRN PRN ORAL Insomnia 05/12/18 06:30 05/19/18 06:29 Theophylline (Wilfrido-Dur) 100 mg EVERY 12 HOURS ORAL 05/12/18 09:00 06/11/18 08:59 05/15/18 08:51 Allergies: Coded Allergies: EGG (Verified Allergy, Unknown, 09/22/15) MEPERIDINE (Verified Allergy, Unknown, 12/21/10) MORPHINE (Verified Allergy, Unknown, Shortness of Breath, 01/24/14) itching,shortness of breath,dyspnea NITROGLYCERIN (Verified Allergy, Unknown, hives, 02/18/17) ROS Limited/Unobtainable: No Constitutional: Reports: no symptoms HEENT: Reports: no symptoms Cardiovascular: Reports: chest pain Respiratory: Reports: shortness of breath Gastrointestinal/Abdominal: Reports: no symptoms Genitourinary: Reports: no symptoms 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: Reports: no symptoms Subjective 67 YO M admitted with chest pain. Now bilateral leg cellulitis with edema. Cover for Radha Hardin-Dr Wright. Objective Last Vital Signs Date Time Temp Pulse Resp B/P (MAP) Pulse Ox O2 Delivery O2 Flow Rate FiO2 05/15/18 17:48 98.1 05/15/18 12:00 101 05/15/18 12:00 18 131/74 96 Room Air 21 Laboratory Tests Test 05/15/18 06:00 05/15/18 09:00 White Blood Count 5.4 K/UL (4.8-10.8) Red Blood Count 4.95 M/UL (4.70-6.10) Hemoglobin 12.8 G/DL (14.2-18.0) L Hematocrit 41.5 % (42.0-52.0) L Mean Corpuscular Volume 84 FL (80-99) Mean Corpuscular Hemoglobin 25.9 PG (27.0-31.0) L Mean Corpuscular Hemoglobin Concent 30.9 G/DL (32.0-36.0) L Red Cell Distribution Width 17.1 % (11.6-14.8) H Platelet Count 314 K/UL (150-450) Mean Platelet Volume 6.0 FL (6.5-10.1) L Neutrophils (%) (Auto) 36.7 % (45.0-75.0) L Lymphocytes (%) (Auto) 40.0 % (20.0-45.0) Monocytes (%) (Auto) 16.0 % (1.0-10.0) H Eosinophils (%) (Auto) 5.1 % (0.0-3.0) H Basophils (%) (Auto) 2.3 % (0.0-2.0) H Sodium Level 140 MMOL/L (136-145) Potassium Level 4.4 MMOL/L (3.5-5.1) Chloride Level 107 MMOL/L (98-107) Carbon Dioxide Level 24 MMOL/L (21-32) Anion Gap 9 mmol/L (5-15) Blood Urea Nitrogen 25 mg/dL (7-18) H Creatinine 1.6 MG/DL (0.55-1.30) H Estimat Glomerular Filtration Rate 52.4 mL/min (>60) Glucose Level 122 MG/DL (74-106) H Calcium Level 8.3 MG/DL (8.5-10.1) L Urine Eosinophils None seen Intake and Output 05/14/18 05/15/18 19:00 07:00 Intake Total 360 ml 110 ml Output Total 300 ml 600 ml Balance 60 ml -490 ml Intake Oral 360 ml IV Total 110 ml Output Urine Total 300 ml 600 ml Objective General Appearance: alert, moderate distress, thin EENT: PERRL/EOMI, normal ENT inspection Neck: non-tender, normal alignment, supple, normal inspection Cardiovascular: normal peripheral pulses, normal rate, regular rhythm, no gallop/murmur, no JVD Respiratory/Chest: lungs clear, normal breath sounds, no respiratory distress, no accessory muscle use Abdomen: normal bowel sounds, non tender, soft, no organomegaly, no mass Extremities: normal range of motion, other - bilateral lower extremity erythema and dry skin Edema: moderate edema 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 Continue cefazolin per ID. (4) CHF (congestive heart failure) (5) Edema (6) Ulcer of right lower leg Assessment & Plan: See podiatry note. (7) HTN (hypertension) (8) COPD exacerbation Assessment & Plan: see pulmonary note. (9) CAD (coronary artery disease) Assessment & Plan: S/P CABG-see cardiology note. (10) Renal failure Assessment & Plan: Diabetic nephropathy vs ATN. See nephrology note. (11) Chest pain Assessment & Plan: COPD vs ACS? See pulmonary and cardiology note. Status: not improved Shantanu Reyna MD May 15, 2018 18:40
[2018-05-15 20:00] VITALS: BP 115/79
[2018-05-15] MEDS: Atorvastatin 20mg tab ORAL SCH (20:52)
--- NOTE | 2018-05-15 23:16 | General Progress Note ---
Assessment/Plan Assessment/Plan Mdd poor appetite failure to thrive remeron 15mg qhs provided ro/st Subjective Date patient seen: May 15, 2018 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: Reports: anxiety, depressed Allergies: Coded Allergies: EGG (Verified Allergy, Unknown, 09/22/15) MEPERIDINE (Verified Allergy, Unknown, 12/21/10) MORPHINE (Verified Allergy, Unknown, Shortness of Breath, 01/24/14) itching,shortness of breath,dyspnea NITROGLYCERIN (Verified Allergy, Unknown, hives, 02/18/17) Subjective the pt refused stress test. anxious Objective Last 24 Hour Vital Signs Date Time Temp Pulse Resp B/P (MAP) Pulse Ox O2 Delivery O2 Flow Rate FiO2 05/15/18 20:21 103 18 Room Air 21 05/15/18 20:00 98.2 107 20 115/79 96 Room Air 98.2 05/15/18 20:00 101 05/15/18 18:18 98.1 05/15/18 17:48 98.1 05/15/18 16:00 98.1 97 18 127/74 96 Room Air 21 98.1 05/15/18 16:00 99 05/15/18 13:35 98.1 05/15/18 12:00 101 05/15/18 12:00 98.4 104 18 131/74 96 Room Air 21 98.4 05/15/18 10:07 98.1 05/15/18 09:54 92 18 Room Air 21 05/15/18 08:52 96 124/81 05/15/18 08:00 98.1 96 20 124/81 96 Room Air 21 98.1 05/15/18 08:00 97 05/15/18 04:00 98.3 21 20 137/84 96 Room Air 98.3 105 05/15/18 04:00 100 05/15/18 00:00 106 05/15/18 00:00 98.0 106 20 138/78 95 Room Air 98.0 Intake and Output 05/14/18 05/15/18 19:00 07:00 Intake Total 360 ml 110 ml Output Total 300 ml 600 ml Balance 60 ml -490 ml Intake Oral 360 ml IV Total 110 ml Output Urine Total 300 ml 600 ml Laboratory Tests 05/15/18 06:00: White Blood Count 5.4, Red Blood Count 4.95, Hemoglobin 12.8L, Hematocrit 41.5L , Mean Corpuscular Volume 84, Mean Corpuscular Hemoglobin 25.9L, Mean Corpuscular Hemoglobin Concent 30.9L, Red Cell Distribution Width 17.1H, Platelet Count 314, Mean Platelet Volume 6.0L, Neutrophils (%) (Auto) 36.7L, Lymphocytes (%) (Auto) 40.0, Monocytes (%) (Auto) 16.0H, Eosinophils (%) (Auto) 5.1H, Basophils (%) (Auto) 2.3H, Sodium Level 140, Potassium Level 4.4, Chloride Level 107, Carbon Dioxide Level 24, Anion Gap 9, Blood Urea Nitrogen 25H, Creatinine 1.6H, Estimat Glomerular Filtration Rate 52.4, Glucose Level 122H, Calcium Level 8.3L 05/15/18 09:00: Urine Eosinophils None seen Height (Feet): 6 Height (Inches): 1.00 Weight (Pounds): 137 General Appearance: no apparent distress, alert Neurologic: oriented x 3, responsive Rachael Buckley M.D. May 15, 2018 23:16
[2018-05-16] VITALS: BP 129/79
[2018-05-16] MEDS: Morphine Sulfate 2mg/ml Inj IVP PRN ×5 (01:07→15:28)
[2018-05-16 04:00] VITALS: BP 127/88
[2018-05-16] MEDS: ceFAZolin sod 1 GM in D5W 110 ML IVPB SCH (05:01)
[2018-05-16 08:00] VITALS: BP 152/78
[2018-05-16] MEDS: Heparin 5000 units/ml inj SUBQ SCH ×2 (09:00→20:57)
[2018-05-16] MEDS: Theophylline ER 100mg ORAL SCH ×2 (09:00→20:56)
--- NOTE | 2018-05-16 09:54 | Nephrology Progress Note ---
Assessment/Plan Problem List: (1) Acute on chronic renal failure (2) CAD (coronary artery disease) (3) Seizure disorder Assessment Acute on chronic renal failure Chest pain, ACS h/o CABGS CHF exacerbation COPD exacerbation Chronic ulcer of right leg Cellulitis of right leg / Ankle Malnutrition Hypothyroidism Plan no labs today Avoid Nephrotoxics Keep BP in check Monitor renal parameters Urine studies per ID / Podiatry Subjective ROS Limited/Unobtainable: No Constitutional: Reports: malaise Objective Objective Last 24 Hour Vital Signs Date Time Temp Pulse Resp B/P (MAP) Pulse Ox O2 Delivery O2 Flow Rate FiO2 05/16/18 09:00 98.4 05/16/18 09:00 98 152/78 05/16/18 08:19 100 18 Room Air 21 05/16/18 08:00 98.5 98 20 152/78 94 Room Air 21 98.5 05/16/18 04:00 90 05/16/18 04:00 98.4 94 20 127/88 94 Room Air 98.4 05/16/18 00:00 94 05/16/18 00:00 98.0 101 22 129/79 99 Room Air 98.0 05/15/18 20:21 103 18 Room Air 21 05/15/18 20:00 98.2 107 20 115/79 96 Room Air 98.2 05/15/18 20:00 101 05/15/18 18:18 98.1 05/15/18 17:48 98.1 05/15/18 16:00 98.1 97 18 127/74 96 Room Air 21 98.1 05/15/18 16:00 99 05/15/18 13:35 98.1 05/15/18 12:00 101 05/15/18 12:00 98.4 104 18 131/74 96 Room Air 21 98.4 05/15/18 10:07 98.1 05/15/18 09:54 92 18 Room Air 21 Intake and Output 05/15/18 05/16/18 19:00 07:00 Intake Total 480 ml Output Total 550 ml Balance -70 ml Intake Oral 480 ml Output Urine Total 550 ml Height (Feet): 6 Height (Inches): 1.00 Weight (Pounds): 137 General Appearance: no apparent distress Objective PE no change KACEY BERNSTEIN May 16, 2018 09:54
[2018-05-16 12:00] VITALS: BP 130/74
--- NOTE | 2018-05-16 13:10 | Pulmonology Progress Note ---
Assessment/Plan Problems: (1) ACS (acute coronary syndrome) (2) Cellulitis of right ankle (3) Severe malnutrition (4) Emphysema lung (5) Hypothyroidism (6) Chronic pain (7) Hx of CABG Assessment/Plan wants physical therapy refused stress test stress test pain management f/u renal parameters wound care check electrolytes continue abx on cefazolin 02/26 respiratory treatment dc home in am dvt prophylaxis Subjective ROS Limited/Unobtainable: No Constitutional: Reports: no symptoms HEENT: Repors: no symptoms Respiratory: Reports: no symptoms Cardiovascular: Reports: no symptoms Allergies: Coded Allergies: EGG (Verified Allergy, Unknown, 09/22/15) MEPERIDINE (Verified Allergy, Unknown, 12/21/10) MORPHINE (Verified Allergy, Unknown, Shortness of Breath, 01/24/14) itching,shortness of breath,dyspnea NITROGLYCERIN (Verified Allergy, Unknown, hives, 02/18/17) Objective Last 24 Hour Vital Signs Date Time Temp Pulse Resp B/P (MAP) Pulse Ox O2 Delivery O2 Flow Rate FiO2 05/16/18 12:15 98.4 05/16/18 09:30 98.4 05/16/18 09:00 98.4 05/16/18 09:00 98 152/78 05/16/18 08:19 100 18 Room Air 21 05/16/18 08:00 96 05/16/18 08:00 98.5 98 20 152/78 94 Room Air 21 98.5 05/16/18 04:00 90 05/16/18 04:00 98.4 94 20 127/88 94 Room Air 98.4 05/16/18 00:00 94 05/16/18 00:00 98.0 101 22 129/79 99 Room Air 98.0 05/15/18 20:21 103 18 Room Air 21 05/15/18 20:00 98.2 107 20 115/79 96 Room Air 98.2 05/15/18 20:00 101 05/15/18 17:48 98.1 05/15/18 16:00 98.1 97 18 127/74 96 Room Air 21 98.1 05/15/18 16:00 99 05/15/18 13:35 98.1 Intake and Output 05/15/18 05/16/18 19:00 07:00 Intake Total 480 ml Output Total 550 ml Balance -70 ml Intake Oral 480 ml Output Urine Total 550 ml General Appearance: WD/WN HEENT: normocephalic Respiratory/Chest: chest wall non-tender, lungs clear Cardiovascular: normal peripheral pulses, normal rate Abdomen: normal bowel sounds Genitourinary: normal external genitalia Extremities: no cyanosis 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 Current Medications Medications (Trade) Dose Ordered Sig/Aminata Route PRN Reason Start Time Stop Time Status Last Admin Dose Admin Acetaminophen (Tylenol) 650 mg Q4H PRN ORAL fever 05/12/18 06:30 06/11/18 06:29 Albuterol/ Ipratropium (Albuterol/ Ipratropium) 3 ml Q4H PRN HHN Shortness of Breath 05/12/18 06:30 05/17/18 06:29 05/13/18 19:34 Amlodipine Besylate (Norvasc) 10 mg DAILY ORAL 05/12/18 09:00 06/11/18 08:59 05/16/18 09:00 Atorvastatin Calcium (Lipitor) 20 mg BEDTIME ORAL 05/12/18 21:00 06/11/18 20:59 05/15/18 20:52 Cefazolin Sodium 1 gm/Dextrose 110 ml @ 220 mls/hr Q12HR@0600,1800 IVPB 05/15/18 18:00 05/20/18 05:59 05/16/18 05:01 Clopidogrel Bisulfate (Plavix) 75 mg DAILY ORAL 05/12/18 09:00 06/11/18 08:59 05/16/18 08:59 Dextrose (Dextrose 50%) STAT PRN IV Hypoglycemia 05/12/18 06:30 06/11/18 06:29 Diphenhydramine HCl (Benadryl) 25 mg Q3H PRN IVP Itching 05/12/18 08:30 06/11/18 08:29 05/15/18 10:07 Heparin Sodium (Porcine) (Heparin 5000 units/ml) 5,000 units EVERY 12 HOURS SUBQ 05/12/18 09:00 06/11/18 08:59 05/15/18 08:50 Lansoprazole (Prevacid) 30 mg BID ORAL 05/12/18 18:00 06/11/18 17:59 05/16/18 09:00 Levetiracetam (Keppra) 500 mg EVERY 12 HOURS ORAL 05/12/18 09:00 06/11/18 08:59 05/16/18 08:59 Mirtazapine (Remeron) 15 mg BEDTIME ORAL 05/12/18 21:00 06/11/18 20:59 05/15/18 20:51 Morphine Sulfate (Morphine Sulfate) 3 mg Q3H PRN IVP For Pain 05/14/18 11:30 05/19/18 08:29 05/16/18 12:15 Nitroglycerin (Ntg) 0.4 mg Q5M PRN SL Prn Chest Pain 05/12/18 12:00 06/11/18 11:59 Ondansetron HCl (Zofran) 4 mg Q6H PRN IVP Nausea & Vomiting 05/12/18 06:30 06/11/18 06:29 Polyethylene Glycol (Miralax) 17 gm DAILYPRN PRN ORAL Constipation 05/12/18 06:30 06/11/18 06:29 Temazepam (Restoril) 15 mg HSPRN PRN ORAL Insomnia 05/12/18 06:30 05/19/18 06:29 Theophylline (Wilfrido-Dur) 100 mg EVERY 12 HOURS ORAL 05/12/18 09:00 06/11/18 08:59 05/16/18 09:00 Jessie Magana MD May 16, 2018 13:10
--- NOTE | 2018-05-16 13:23 | Cardiology Progress Note ---
Assessment/Plan Status: stable Assessment/Plan -Aspirin -Statin -Nitro prn chest pain Serial EKG and troponin - reviewed, no ACS TTE with normal LV function and valvular apparatus Due to hx of PCI and CAD patient will need stress test prior to discharge and high MARTHA score - patient refused - aware or R/B/A Antibiotics for LE cellulitis Ok to discharge in AM Subjective Cardiovascular: Reports: no symptoms Respiratory: Reports: no symptoms Gastrointestinal/Abdominal: Reports: no symptoms Genitourinary: Reports: no symptoms Subjective No acute events, tolerating PO, no CP currently, vitals stable, troponin negative x2, Echo with preserved LV Function Patient refused stress test, states he had them in past and they were normal He wants to do physical therapy today For discharge in AM Objective Last 24 Hour Vital Signs Date Time Temp Pulse Resp B/P (MAP) Pulse Ox O2 Delivery O2 Flow Rate FiO2 05/16/18 12:15 98.4 05/16/18 09:30 98.4 05/16/18 09:00 98.4 05/16/18 09:00 98 152/78 05/16/18 08:19 100 18 Room Air 21 05/16/18 08:00 96 05/16/18 08:00 98.5 98 20 152/78 94 Room Air 21 98.5 05/16/18 04:00 90 05/16/18 04:00 98.4 94 20 127/88 94 Room Air 98.4 05/16/18 00:00 94 05/16/18 00:00 98.0 101 22 129/79 99 Room Air 98.0 05/15/18 20:21 103 18 Room Air 21 05/15/18 20:00 98.2 107 20 115/79 96 Room Air 98.2 05/15/18 20:00 101 05/15/18 17:48 98.1 05/15/18 16:00 98.1 97 18 127/74 96 Room Air 21 98.1 05/15/18 16:00 99 05/15/18 13:35 98.1 General Appearance: no apparent distress EENT: PERRL/EOMI Neck: non-tender Rhythm: NSR Cardiovascular: normal peripheral pulses Respiratory/Chest: chest wall non-tender Abdomen: normal bowel sounds Extremities: normal range of motion 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 May 16, 2018 13:23
--- NOTE | 2018-05-16 13:27 | Infectious Diseases Prog Note ---
Assessment/Plan Assessment/Plan Assessment: Chest pain B/l leg swelling and cellulitis L> R, L leg cellulitis: improving, now more swelling in R than left R Ankle chronic ulcer- healing, no signs of infection -R foot xray 03/2018: No acute injury identified. Abnormal fifth MPJ joint which may be on the basis of previous surgery/trauma or old erosive process. Osteoporosis Afebrile, no leukocytosis\ -u/a neg -CXR No acute process HTN severe malnutrition MDD tobacco abuse seizure disorder emphysema DM2 CAD s/p CABG COPD -recent exacerbation requiring admission 02/2018 bedbound Plan: - DC Ancef # 5 /5 for L leg cellulitis; and monitor pt off of AB Rx -05/12 SP Cefepime and Zosyn x1 -/ SP PO Levaquin #3 -03/23/18 SP Zosyn #2 -f/u B/l V. duplex -f/u cx -Monitor CBC/BMP, temperatures Subjective Constitutional: Denies: no symptoms, fever, chills, fatigue, anorexia, drenching sweats, other Allergies: Coded Allergies: EGG (Verified Allergy, Unknown, 09/22/15) MEPERIDINE (Verified Allergy, Unknown, 12/21/10) MORPHINE (Verified Allergy, Unknown, Shortness of Breath, 01/24/14) itching,shortness of breath,dyspnea NITROGLYCERIN (Verified Allergy, Unknown, hives, 02/18/17) Objective Vital Signs Last 24 Hour Vital Signs Date Time Temp Pulse Resp B/P (MAP) Pulse Ox O2 Delivery O2 Flow Rate FiO2 05/16/18 12:15 98.4 05/16/18 09:30 98.4 05/16/18 09:00 98.4 05/16/18 09:00 98 152/78 05/16/18 08:19 100 18 Room Air 21 05/16/18 08:00 96 05/16/18 08:00 98.5 98 20 152/78 94 Room Air 21 98.5 05/16/18 04:00 90 05/16/18 04:00 98.4 94 20 127/88 94 Room Air 98.4 05/16/18 00:00 94 05/16/18 00:00 98.0 101 22 129/79 99 Room Air 98.0 05/15/18 20:21 103 18 Room Air 21 05/15/18 20:00 98.2 107 20 115/79 96 Room Air 98.2 05/15/18 20:00 101 05/15/18 17:48 98.1 05/15/18 16:00 98.1 97 18 127/74 96 Room Air 21 98.1 05/15/18 16:00 99 05/15/18 13:35 98.1 Height (Feet): 6 Height (Inches): 1.00 Weight (Pounds): 137 HEENT: anicteric Respiratory/Chest: no respiratory distress Cardiovascular: regularly irregular Abdomen: non distended Extremities: no cyanosis Current Medications Medications (Trade) Dose Ordered Sig/Aminata Route PRN Reason Start Time Stop Time Status Last Admin Dose Admin Acetaminophen (Tylenol) 650 mg Q4H PRN ORAL fever 05/12/18 06:30 06/11/18 06:29 Albuterol/ Ipratropium (Albuterol/ Ipratropium) 3 ml Q4H PRN HHN Shortness of Breath 05/12/18 06:30 05/17/18 06:29 05/13/18 19:34 Amlodipine Besylate (Norvasc) 10 mg DAILY ORAL 05/12/18 09:00 06/11/18 08:59 05/16/18 09:00 Atorvastatin Calcium (Lipitor) 20 mg BEDTIME ORAL 05/12/18 21:00 06/11/18 20:59 05/15/18 20:52 Cefazolin Sodium 1 gm/Dextrose 110 ml @ 220 mls/hr Q12HR@0600,1800 IVPB 05/15/18 18:00 05/20/18 05:59 05/16/18 05:01 Clopidogrel Bisulfate (Plavix) 75 mg DAILY ORAL 05/12/18 09:00 06/11/18 08:59 05/16/18 08:59 Dextrose (Dextrose 50%) STAT PRN IV Hypoglycemia 05/12/18 06:30 06/11/18 06:29 Diphenhydramine HCl (Benadryl) 25 mg Q3H PRN IVP Itching 05/12/18 08:30 06/11/18 08:29 05/15/18 10:07 Heparin Sodium (Porcine) (Heparin 5000 units/ml) 5,000 units EVERY 12 HOURS SUBQ 05/12/18 09:00 06/11/18 08:59 05/15/18 08:50 Lansoprazole (Prevacid) 30 mg BID ORAL 05/12/18 18:00 06/11/18 17:59 05/16/18 09:00 Levetiracetam (Keppra) 500 mg EVERY 12 HOURS ORAL 05/12/18 09:00 06/11/18 08:59 05/16/18 08:59 Mirtazapine (Remeron) 15 mg BEDTIME ORAL 05/12/18 21:00 06/11/18 20:59 05/15/18 20:51 Morphine Sulfate (Morphine Sulfate) 3 mg Q3H PRN IVP For Pain 05/14/18 11:30 05/19/18 08:29 05/16/18 12:15 Nitroglycerin (Ntg) 0.4 mg Q5M PRN SL Prn Chest Pain 05/12/18 12:00 06/11/18 11:59 Ondansetron HCl (Zofran) 4 mg Q6H PRN IVP Nausea & Vomiting 05/12/18 06:30 06/11/18 06:29 Polyethylene Glycol (Miralax) 17 gm DAILYPRN PRN ORAL Constipation 05/12/18 06:30 06/11/18 06:29 Temazepam (Restoril) 15 mg HSPRN PRN ORAL Insomnia 05/12/18 06:30 05/19/18 06:29 Theophylline (Wilfrido-Dur) 100 mg EVERY 12 HOURS ORAL 05/12/18 09:00 06/11/18 08:59 05/16/18 09:00 Reuben Reich MD May 16, 2018 13:27
[2018-05-16 16:00] VITALS: BP 132/73
--- NOTE | 2018-05-16 16:24 | Internal Med Progress Note ---
Subjective Date of Service: May 16, 2018 Physician Name Reyna,Shantanu Attending Physician Phil Wright MD Current Medications Medications (Trade) Dose Ordered Sig/Aminata Route PRN Reason Start Time Stop Time Status Last Admin Dose Admin Acetaminophen (Tylenol) 650 mg Q4H PRN ORAL fever 05/16/18 18:30 06/11/18 06:29 Albuterol/ Ipratropium (Albuterol/ Ipratropium) 3 ml Q4H PRN HHN Shortness of Breath 05/16/18 18:30 05/17/18 06:29 UNV Amlodipine Besylate (Norvasc) 10 mg DAILY ORAL 05/17/18 09:00 06/11/18 08:59 Atorvastatin Calcium (Lipitor) 20 mg BEDTIME ORAL 05/16/18 21:00 06/11/18 20:59 Clopidogrel Bisulfate (Plavix) 75 mg DAILY ORAL 05/17/18 09:00 06/11/18 08:59 Dextrose (Dextrose 50%) STAT PRN IV Hypoglycemia 05/16/18 16:30 06/15/18 16:29 Diphenhydramine HCl (Benadryl) 25 mg Q3H PRN IVP Itching 05/16/18 17:30 06/11/18 08:29 UNV Heparin Sodium (Porcine) (Heparin 5000 units/ml) 5,000 units EVERY 12 HOURS SUBQ 05/16/18 21:00 06/11/18 08:59 UNV Lansoprazole (Prevacid) 30 mg BID ORAL 05/16/18 18:00 06/11/18 17:59 UNV Levetiracetam (Keppra) 500 mg EVERY 12 HOURS ORAL 05/16/18 21:00 06/11/18 08:59 UNV Mirtazapine (Remeron) 15 mg BEDTIME ORAL 05/16/18 21:00 06/11/18 20:59 UNV Ondansetron HCl (Zofran) 4 mg Q6H PRN IVP Nausea & Vomiting 05/16/18 18:30 06/11/18 06:29 UNV Polyethylene Glycol (Miralax) 17 gm DAILYPRN PRN ORAL Constipation 05/17/18 06:30 06/11/18 06:29 UNV Temazepam (Restoril) 15 mg HSPRN PRN ORAL Insomnia 05/17/18 06:30 05/19/18 06:29 UNV Theophylline (Wilfrido-Dur) 100 mg EVERY 12 HOURS ORAL 05/16/18 21:00 06/11/18 08:59 UNV Allergies: Coded Allergies: EGG (Verified Allergy, Unknown, 09/22/15) MEPERIDINE (Verified Allergy, Unknown, 12/21/10) MORPHINE (Verified Allergy, Unknown, Shortness of Breath, 01/24/14) itching,shortness of breath,dyspnea NITROGLYCERIN (Verified Allergy, Unknown, hives, 02/18/17) ROS Limited/Unobtainable: No Constitutional: Reports: no symptoms HEENT: Reports: no symptoms Cardiovascular: Reports: chest pain Respiratory: Reports: no symptoms Gastrointestinal/Abdominal: Reports: no symptoms Genitourinary: Reports: no symptoms 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: Reports: no symptoms Subjective 67 YO M admitted with chest pain. Now bilateral leg cellulitis with edema. Cover for Int Wilfred-Dr Wright. Objective Last Vital Signs Date Time Temp Pulse Resp B/P (MAP) Pulse Ox O2 Delivery O2 Flow Rate FiO2 05/16/18 15:28 98.4 05/16/18 12:00 96 18 130/74 94 Room Air 21 Intake and Output 05/15/18 05/16/18 19:00 07:00 Intake Total 480 ml Output Total 550 ml Balance -70 ml Intake Oral 480 ml Output Urine Total 550 ml Objective General Appearance: alert, moderate distress, thin EENT: PERRL/EOMI, normal ENT inspection Neck: non-tender, normal alignment, supple, normal inspection Cardiovascular: normal peripheral pulses, normal rate, regular rhythm, no gallop/murmur, no JVD Respiratory/Chest: lungs clear, normal breath sounds, no respiratory distress, no accessory muscle use Abdomen: normal bowel sounds, non tender, soft, no organomegaly, no mass Extremities: normal range of motion, other - bilateral lower extremity erythema and dry skin Edema: moderate edema 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 Continue cefazolin per ID. (4) CHF (congestive heart failure) (5) Edema (6) Ulcer of right lower leg Assessment & Plan: See podiatry note. (7) HTN (hypertension) (8) COPD exacerbation Assessment & Plan: see pulmonary note. (9) CAD (coronary artery disease) Assessment & Plan: S/P CABG-see cardiology note. (10) Renal failure Assessment & Plan: Diabetic nephropathy vs ATN. See nephrology note. (11) Chest pain Assessment & Plan: COPD vs ACS? See pulmonary and cardiology note. Status: progressing Shantanu Reyna MD May 16, 2018 16:24
[2018-05-16] MEDS ORDERED: Miralax 17gm pkt ORAL PRN (16:30)
[2018-05-16] MEDS ORDERED: Albuterol/Ipratropium 3ml neb HHN PRN (16:30)
[2018-05-16] MEDS ORDERED: DiphenhydrAMINE 50mg/ml Inj IVP PRN (16:30)
--- NOTE | 2018-05-16 19:20 | Pulmonology Progress Note ---
Assessment/Plan Problems: (1) ACS (acute coronary syndrome) (2) Cellulitis of right ankle (3) Severe malnutrition (4) Emphysema lung (5) Hypothyroidism (6) Chronic pain (7) Hx of CABG Assessment/Plan wants physical therapy refused stress test stress test pain management f/u renal parameters wound care check electrolytes continue abx on cefazolin 02/26 respiratory treatment dc home in am dvt prophylaxis Subjective ROS Limited/Unobtainable: No Constitutional: Reports: no symptoms HEENT: Repors: no symptoms Allergies: Coded Allergies: EGG (Verified Allergy, Unknown, 09/22/15) MEPERIDINE (Verified Allergy, Unknown, 12/21/10) NITROGLYCERIN (Verified Allergy, Unknown, hives, 02/18/17) Objective Last 24 Hour Vital Signs Date Time Temp Pulse Resp B/P (MAP) Pulse Ox O2 Delivery O2 Flow Rate FiO2 05/16/18 17:51 103 18 97 Room Air 21 05/16/18 16:00 98.6 100 18 132/73 96 98.6 05/16/18 15:28 98.4 05/16/18 12:45 98.4 05/16/18 12:15 98.4 05/16/18 12:00 98.4 96 18 130/74 94 Room Air 21 98.4 05/16/18 09:00 98.4 05/16/18 09:00 98 152/78 05/16/18 08:19 100 18 Room Air 21 05/16/18 08:00 96 05/16/18 08:00 98.5 98 20 152/78 94 Room Air 21 98.5 05/16/18 04:00 90 05/16/18 04:00 98.4 94 20 127/88 94 Room Air 98.4 05/16/18 00:00 94 05/16/18 00:00 98.0 101 22 129/79 99 Room Air 98.0 05/15/18 20:21 103 18 Room Air 21 05/15/18 20:00 98.2 107 20 115/79 96 Room Air 98.2 05/15/18 20:00 101 Intake and Output 05/15/18 05/16/18 19:00 07:00 Intake Total 480 ml Output Total 550 ml Balance -70 ml Intake Oral 480 ml Output Urine Total 550 ml Objective General Appearance: cachetic HEENT: normocephalic, atraumatic Respiratory/Chest: chest wall non-tender, lungs clear Cardiovascular: normal peripheral pulses, normal rate Abdomen: soft, non tender Genitourinary: normal external genitalia Extremities: no clubbing 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 Current Medications Medications (Trade) Dose Ordered Sig/Aminata Route PRN Reason Start Time Stop Time Status Last Admin Dose Admin Acetaminophen (Tylenol) 650 mg Q4H PRN ORAL fever 05/16/18 18:30 06/11/18 06:29 Albuterol/ Ipratropium (Albuterol/ Ipratropium) 3 ml Q4H PRN HHN Shortness of Breath 05/16/18 16:30 05/17/18 16:29 05/16/18 17:51 Amlodipine Besylate (Norvasc) 10 mg DAILY ORAL 05/17/18 09:00 06/11/18 08:59 Atorvastatin Calcium (Lipitor) 20 mg BEDTIME ORAL 05/16/18 21:00 06/11/18 20:59 Clopidogrel Bisulfate (Plavix) 75 mg DAILY ORAL 05/17/18 09:00 06/11/18 08:59 Dextrose (Dextrose 50%) STAT PRN IV Hypoglycemia 05/16/18 16:30 06/15/18 16:29 Diphenhydramine HCl (Benadryl) 25 mg Q3H PRN IVP Itching 05/16/18 16:30 06/11/18 16:29 Heparin Sodium (Porcine) (Heparin 5000 units/ml) 5,000 units EVERY 12 HOURS SUBQ 05/16/18 21:00 06/11/18 08:59 Lansoprazole (Prevacid) 30 mg BID ORAL 05/16/18 18:00 06/11/18 17:59 05/16/18 17:10 Levetiracetam (Keppra) 500 mg EVERY 12 HOURS ORAL 05/16/18 21:00 06/11/18 08:59 Mirtazapine (Remeron) 15 mg BEDTIME ORAL 05/16/18 21:00 06/11/18 20:59 Morphine Sulfate (Morphine Sulfate) 3 mg Q3H PRN IVP For Pain 05/16/18 19:00 05/23/18 18:59 UNV Ondansetron HCl (Zofran) 4 mg Q6H PRN IVP Nausea & Vomiting 05/16/18 18:30 06/11/18 06:29 Polyethylene Glycol (Miralax) 17 gm DAILYPRN PRN ORAL Constipation 05/16/18 16:30 06/15/18 16:29 Temazepam (Restoril) 15 mg HSPRN PRN ORAL Insomnia 05/16/18 16:30 05/23/18 16:29 Theophylline (Wilfrido-Dur) 100 mg EVERY 12 HOURS ORAL 05/16/18 21:00 06/11/18 08:59 Jessie Magana MD May 16, 2018 19:20
[2018-05-16 20:00] VITALS: BP 129/71
[2018-05-16] MEDS: Morphine Sulfate 4mg/ml Inj IVP PRN ×2 (20:02→23:18)
[2018-05-16] MEDS: Atorvastatin 20mg tab ORAL SCH (20:56)
[2018-05-17 00:07] VITALS: BP 134/77
[2018-05-17] MEDS: Morphine Sulfate 4mg/ml Inj IVP PRN ×7 (02:20→21:22)
[2018-05-17 04:16] VITALS: BP 144/83
[2018-05-17 07:15] LABS: BASOPHILS % (AUTO) 2.9 % (0.0-2.0); EOSINOPHILS % (AUTO) 5.1 % (0.0-3.0); HEMATOCRIT 45.4 % (42.0-52.0); HEMOGLOBIN 14.1 G/DL (14.2-18.0); LYMPHOCYTES % (AUTO) 37.1 % (20.0-45.0); MEAN CORPUSCULAR VOLUME 83 FL (80-99); MONOCYTES % (AUTO) 12.8 % (1.0-10.0); NEUTROPHILS % (AUTO) 42.1 % (45.0-75.0); PLATELET COUNT 323 K/UL (150-450); RED BLOOD COUNT 5.45 M/UL (4.70-6.10); RED CELL DISTRIBUTION WIDTH 16.9 % (11.6-14.8); WHITE BLOOD COUNT 6.2 K/UL (4.8-10.8)
[2018-05-17 07:23] LABS: ANION GAP 9 mmol/L (5-15); BLOOD UREA NITROGEN 27 mg/dL (7-18); CALCIUM 9.2 MG/DL (8.5-10.1); CARBON DIOXIDE 24 MMOL/L (21-32); CHLORIDE 105 MMOL/L (98-107); CREATININE 1.2 MG/DL (0.55-1.30); POTASSIUM 4.4 MMOL/L (3.5-5.1); SODIUM 138 MMOL/L (136-145)
[2018-05-17 08:00] VITALS: BP 120/74
[2018-05-17] MEDS: Theophylline ER 100mg ORAL SCH ×2 (08:35→20:22)
[2018-05-17] MEDS: Heparin 5000 units/ml inj SUBQ SCH ×2 (08:37→20:22)
--- NOTE | 2018-05-17 11:02 | Cardiology Progress Note ---
Assessment/Plan Status: stable Assessment/Plan -Aspirin -Statin -Nitro prn chest pain Serial EKG and troponin - reviewed, no ACS TTE with normal LV function and valvular apparatus Due to hx of PCI and CAD patient will need stress test prior to discharge and high MARTHA score - patient refused - aware or R/B/A Antibiotics for LE cellulitis Ok to discharge in AM Subjective Cardiovascular: Reports: no symptoms Respiratory: Reports: no symptoms Gastrointestinal/Abdominal: Reports: no symptoms Genitourinary: Reports: no symptoms Subjective No acute events, tolerating PO, no CP currently, vitals stable, troponin negative x2, Echo with preserved LV Function Patient refused stress test, states he had them in past and they were normal He wants to do physical therapy today For discharge in AM Objective Last 24 Hour Vital Signs Date Time Temp Pulse Resp B/P (MAP) Pulse Ox O2 Delivery O2 Flow Rate FiO2 05/17/18 09:06 98.8 05/17/18 08:36 98.8 05/17/18 08:35 98 120/74 05/17/18 08:00 98.8 98 19 120/74 98 98.8 05/17/18 07:37 99 18 Room Air 21 05/17/18 05:15 98.2 05/17/18 04:16 98.2 100 22 144/83 98 98.2 100 05/17/18 00:07 98.1 108 22 134/77 96 98.1 05/16/18 20:09 105 16 Room Air 21 05/16/18 20:00 98.8 110 20 129/71 95 Room Air 98.8 05/16/18 17:51 103 18 97 Room Air 21 05/16/18 16:00 98.6 100 18 132/73 96 98.6 05/16/18 15:28 98.4 05/16/18 12:45 98.4 05/16/18 12:15 98.4 05/16/18 12:00 98.4 96 18 130/74 94 Room Air 21 98.4 General Appearance: no apparent distress EENT: PERRL/EOMI Neck: non-tender Rhythm: NSR Cardiovascular: normal peripheral pulses Respiratory/Chest: chest wall non-tender Abdomen: normal bowel sounds Extremities: normal range of motion 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 Intake and Output 05/16/18 05/17/18 19:00 07:00 Intake Total 590 ml Output Total 300 ml 800 ml Balance 290 ml -800 ml Intake Oral 590 ml Output Urine Total 300 ml 800 ml Laboratory Tests Test 05/17/18 06:25 White Blood Count 6.2 K/UL (4.8-10.8) Red Blood Count 5.45 M/UL (4.70-6.10) Hemoglobin 14.1 G/DL (14.2-18.0) L Hematocrit 45.4 % (42.0-52.0) Mean Corpuscular Volume 83 FL (80-99) Mean Corpuscular Hemoglobin 25.9 PG (27.0-31.0) L Mean Corpuscular Hemoglobin Concent 31.1 G/DL (32.0-36.0) L Red Cell Distribution Width 16.9 % (11.6-14.8) H Platelet Count 323 K/UL (150-450) Mean Platelet Volume 6.1 FL (6.5-10.1) L Neutrophils (%) (Auto) 42.1 % (45.0-75.0) L Lymphocytes (%) (Auto) 37.1 % (20.0-45.0) Monocytes (%) (Auto) 12.8 % (1.0-10.0) H Eosinophils (%) (Auto) 5.1 % (0.0-3.0) H Basophils (%) (Auto) 2.9 % (0.0-2.0) H Sodium Level 138 MMOL/L (136-145) Potassium Level 4.4 MMOL/L (3.5-5.1) Chloride Level 105 MMOL/L (98-107) Carbon Dioxide Level 24 MMOL/L (21-32) Anion Gap 9 mmol/L (5-15) Blood Urea Nitrogen 27 mg/dL (7-18) H Creatinine 1.2 MG/DL (0.55-1.30) Estimat Glomerular Filtration Rate > 60 mL/min (>60) Glucose Level 99 MG/DL (74-106) Calcium Level 9.2 MG/DL (8.5-10.1) Adonis Winn M.D. May 17, 2018 11:02
[2018-05-17 11:49] VITALS: BP 129/79
--- NOTE | 2018-05-17 13:05 | Nephrology Progress Note ---
Assessment/Plan Problem List: (1) Acute on chronic renal failure (2) CAD (coronary artery disease) (3) Seizure disorder Assessment Acute on chronic renal failure Cr now WNL Chest pain, ACS h/o CABGS CHF exacerbation COPD exacerbation Chronic ulcer of right leg Cellulitis of right leg / Ankle Malnutrition Hypothyroidism Plan Avoid Nephrotoxics Keep BP in check Monitor renal parameters Urine studies per ID / Podiatry Subjective ROS Limited/Unobtainable: No Objective Objective Last 24 Hour Vital Signs Date Time Temp Pulse Resp B/P (MAP) Pulse Ox O2 Delivery O2 Flow Rate FiO2 05/17/18 12:28 99.0 05/17/18 11:58 99.0 05/17/18 11:49 99.0 99 19 129/79 96 99.0 05/17/18 08:36 98.8 05/17/18 08:35 98 120/74 05/17/18 08:00 98.8 98 19 120/74 98 98.8 05/17/18 07:37 99 18 Room Air 21 05/17/18 05:15 98.2 05/17/18 04:16 98.2 100 22 144/83 98 98.2 100 05/17/18 00:07 98.1 108 22 134/77 96 98.1 05/16/18 20:09 105 16 Room Air 21 05/16/18 20:00 98.8 110 20 129/71 95 Room Air 98.8 05/16/18 17:51 103 18 97 Room Air 21 05/16/18 16:00 98.6 100 18 132/73 96 98.6 05/16/18 15:28 98.4 Intake and Output 05/16/18 05/17/18 19:00 07:00 Intake Total 590 ml Output Total 300 ml 800 ml Balance 290 ml -800 ml Intake Oral 590 ml Output Urine Total 300 ml 800 ml Laboratory Tests 05/17/18 06:25: White Blood Count 6.2, Red Blood Count 5.45, Hemoglobin 14.1L, Hematocrit 45.4, Mean Corpuscular Volume 83, Mean Corpuscular Hemoglobin 25.9L, Mean Corpuscular Hemoglobin Concent 31.1L, Red Cell Distribution Width 16.9H, Platelet Count 323 , Mean Platelet Volume 6.1L, Neutrophils (%) (Auto) 42.1L, Lymphocytes (%) (Auto ) 37.1, Monocytes (%) (Auto) 12.8H, Eosinophils (%) (Auto) 5.1H, Basophils (%) ( Auto) 2.9H, Sodium Level 138, Potassium Level 4.4, Chloride Level 105, Carbon Dioxide Level 24, Anion Gap 9, Blood Urea Nitrogen 27H, Creatinine 1.2, Estimat Glomerular Filtration Rate > 60, Glucose Level 99, Calcium Level 9.2 Height (Feet): 6 Height (Inches): 1.00 Weight (Pounds): 137 General Appearance: no apparent distress Objective PE no change KACEY BERNSTEIN May 17, 2018 13:05
--- NOTE | 2018-05-17 14:09 | Pulmonology Progress Note ---
Assessment/Plan Problems: (1) ACS (acute coronary syndrome) (2) Cellulitis of right ankle (3) Severe malnutrition (4) Emphysema lung (5) Hypothyroidism (6) Chronic pain (7) Hx of CABG Assessment/Plan wants physical therapy refused stress test stress test pain management f/u renal parameters wound care check electrolytes continue abx on cefazolin 02/26 respiratory treatment dc home in am dvt prophylaxis Subjective Allergies: Coded Allergies: EGG (Verified Allergy, Unknown, 09/22/15) MEPERIDINE (Verified Allergy, Unknown, 12/21/10) NITROGLYCERIN (Verified Allergy, Unknown, hives, 02/18/17) Objective Last 24 Hour Vital Signs Date Time Temp Pulse Resp B/P (MAP) Pulse Ox O2 Delivery O2 Flow Rate FiO2 05/17/18 12:28 99.0 05/17/18 11:58 99.0 05/17/18 11:49 99.0 99 19 129/79 96 99.0 05/17/18 08:36 98.8 05/17/18 08:35 98 120/74 05/17/18 08:00 98.8 98 19 120/74 98 98.8 05/17/18 07:37 99 18 Room Air 21 05/17/18 05:15 98.2 05/17/18 04:16 98.2 100 22 144/83 98 98.2 100 05/17/18 00:07 98.1 108 22 134/77 96 98.1 05/16/18 20:09 105 16 Room Air 21 05/16/18 20:00 98.8 110 20 129/71 95 Room Air 98.8 05/16/18 17:51 103 18 97 Room Air 21 05/16/18 16:00 98.6 100 18 132/73 96 98.6 05/16/18 15:28 98.4 Intake and Output 05/16/18 05/17/18 19:00 07:00 Intake Total 590 ml Output Total 300 ml 800 ml Balance 290 ml -800 ml Intake Oral 590 ml Output Urine Total 300 ml 800 ml Objective General Appearance: cachetic HEENT: normocephalic, atraumatic Respiratory/Chest: chest wall non-tender, lungs clear Cardiovascular: normal peripheral pulses, normal rate Abdomen: soft, non tender Genitourinary: normal external genitalia Extremities: no clubbing 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 Laboratory Tests 05/17/18 06:25: White Blood Count 6.2, Red Blood Count 5.45, Hemoglobin 14.1L, Hematocrit 45.4, Mean Corpuscular Volume 83, Mean Corpuscular Hemoglobin 25.9L, Mean Corpuscular Hemoglobin Concent 31.1L, Red Cell Distribution Width 16.9H, Platelet Count 323 , Mean Platelet Volume 6.1L, Neutrophils (%) (Auto) 42.1L, Lymphocytes (%) (Auto ) 37.1, Monocytes (%) (Auto) 12.8H, Eosinophils (%) (Auto) 5.1H, Basophils (%) ( Auto) 2.9H, Sodium Level 138, Potassium Level 4.4, Chloride Level 105, Carbon Dioxide Level 24, Anion Gap 9, Blood Urea Nitrogen 27H, Creatinine 1.2, Estimat Glomerular Filtration Rate > 60, Glucose Level 99, Calcium Level 9.2 Current Medications Medications (Trade) Dose Ordered Sig/Aminata Route PRN Reason Start Time Stop Time Status Last Admin Dose Admin Acetaminophen (Tylenol) 650 mg Q4H PRN ORAL fever 05/16/18 18:30 06/11/18 06:29 Albuterol/ Ipratropium (Albuterol/ Ipratropium) 3 ml Q4H PRN HHN Shortness of Breath 05/16/18 16:30 05/17/18 16:29 05/16/18 17:51 Amlodipine Besylate (Norvasc) 10 mg DAILY ORAL 05/17/18 09:00 06/11/18 08:59 05/17/18 08:35 Atorvastatin Calcium (Lipitor) 20 mg BEDTIME ORAL 05/16/18 21:00 06/11/18 20:59 05/16/18 20:56 Clopidogrel Bisulfate (Plavix) 75 mg DAILY ORAL 05/17/18 09:00 06/11/18 08:59 05/17/18 08:35 Dextrose (Dextrose 50%) STAT PRN IV Hypoglycemia 05/16/18 16:30 06/15/18 16:29 Diphenhydramine HCl (Benadryl) 25 mg Q3H PRN IVP Itching 05/16/18 16:30 06/11/18 16:29 Heparin Sodium (Porcine) (Heparin 5000 units/ml) 5,000 units EVERY 12 HOURS SUBQ 05/16/18 21:00 06/11/18 08:59 Lansoprazole (Prevacid) 30 mg BID ORAL 05/16/18 18:00 06/11/18 17:59 05/17/18 08:35 Levetiracetam (Keppra) 500 mg EVERY 12 HOURS ORAL 05/16/18 21:00 06/11/18 08:59 05/17/18 08:34 Mirtazapine (Remeron) 15 mg BEDTIME ORAL 05/16/18 21:00 06/11/18 20:59 05/16/18 20:59 Morphine Sulfate (Morphine Sulfate) 3 mg Q3H PRN IVP For Pain 05/16/18 19:00 05/23/18 18:59 05/17/18 11:58 Ondansetron HCl (Zofran) 4 mg Q6H PRN IVP Nausea & Vomiting 05/16/18 18:30 06/11/18 06:29 Polyethylene Glycol (Miralax) 17 gm DAILYPRN PRN ORAL Constipation 05/16/18 16:30 06/15/18 16:29 Temazepam (Restoril) 15 mg HSPRN PRN ORAL Insomnia 05/16/18 16:30 05/23/18 16:29 Theophylline (Wilfrido-Dur) 100 mg EVERY 12 HOURS ORAL 05/16/18 21:00 06/11/18 08:59 05/17/18 08:35 Jessie Magana MD May 17, 2018 14:09
[2018-05-17 15:57] VITALS: BP 136/81
--- NOTE | 2018-05-17 18:38 | Internal Med Progress Note ---
Subjective Date of Service: May 17, 2018 Physician Name ReynaShantanu medrano Attending Physician Phil Wright MD Current Medications Medications (Trade) Dose Ordered Sig/Aminata Route PRN Reason Start Time Stop Time Status Last Admin Dose Admin Acetaminophen (Tylenol) 650 mg Q4H PRN ORAL fever 05/16/18 18:30 06/11/18 06:29 Amlodipine Besylate (Norvasc) 10 mg DAILY ORAL 05/17/18 09:00 06/11/18 08:59 05/17/18 08:35 Atorvastatin Calcium (Lipitor) 20 mg BEDTIME ORAL 05/16/18 21:00 06/11/18 20:59 05/16/18 20:56 Clopidogrel Bisulfate (Plavix) 75 mg DAILY ORAL 05/17/18 09:00 06/11/18 08:59 05/17/18 08:35 Dextrose (Dextrose 50%) STAT PRN IV Hypoglycemia 05/16/18 16:30 06/15/18 16:29 Diphenhydramine HCl (Benadryl) 25 mg Q3H PRN IVP Itching 05/16/18 16:30 06/11/18 16:29 Heparin Sodium (Porcine) (Heparin 5000 units/ml) 5,000 units EVERY 12 HOURS SUBQ 05/16/18 21:00 06/11/18 08:59 Lansoprazole (Prevacid) 30 mg BID ORAL 05/16/18 18:00 06/11/18 17:59 05/17/18 17:15 Levetiracetam (Keppra) 500 mg EVERY 12 HOURS ORAL 05/16/18 21:00 06/11/18 08:59 05/17/18 08:34 Mirtazapine (Remeron) 15 mg BEDTIME ORAL 05/16/18 21:00 06/11/18 20:59 05/16/18 20:59 Morphine Sulfate (Morphine Sulfate) 3 mg Q3H PRN IVP For Pain 05/16/18 19:00 05/23/18 18:59 05/17/18 18:06 Ondansetron HCl (Zofran) 4 mg Q6H PRN IVP Nausea & Vomiting 05/16/18 18:30 06/11/18 06:29 Polyethylene Glycol (Miralax) 17 gm DAILYPRN PRN ORAL Constipation 05/16/18 16:30 06/15/18 16:29 Temazepam (Restoril) 15 mg HSPRN PRN ORAL Insomnia 05/16/18 16:30 05/23/18 16:29 Theophylline (Wilfrido-Dur) 100 mg EVERY 12 HOURS ORAL 05/16/18 21:00 06/11/18 08:59 05/17/18 08:35 Allergies: Coded Allergies: EGG (Verified Allergy, Unknown, 09/22/15) MEPERIDINE (Verified Allergy, Unknown, 12/21/10) NITROGLYCERIN (Verified Allergy, Unknown, hives, 02/18/17) ROS Limited/Unobtainable: No Constitutional: Reports: no symptoms HEENT: Reports: no symptoms Cardiovascular: Reports: chest pain Respiratory: Reports: shortness of breath Gastrointestinal/Abdominal: Reports: no symptoms Genitourinary: Reports: no symptoms 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: Reports: no symptoms Subjective 67 YO M admitted with chest pain. Now bilateral leg cellulitis with edema. Cover for Int Wilfred-Dr Wright. Objective Last Vital Signs Date Time Temp Pulse Resp B/P (MAP) Pulse Ox O2 Delivery O2 Flow Rate FiO2 05/17/18 18:06 98.2 05/17/18 15:57 95 19 136/81 96 05/17/18 07:37 Room Air 21 Laboratory Tests Test 05/17/18 06:25 White Blood Count 6.2 K/UL (4.8-10.8) Red Blood Count 5.45 M/UL (4.70-6.10) Hemoglobin 14.1 G/DL (14.2-18.0) L Hematocrit 45.4 % (42.0-52.0) Mean Corpuscular Volume 83 FL (80-99) Mean Corpuscular Hemoglobin 25.9 PG (27.0-31.0) L Mean Corpuscular Hemoglobin Concent 31.1 G/DL (32.0-36.0) L Red Cell Distribution Width 16.9 % (11.6-14.8) H Platelet Count 323 K/UL (150-450) Mean Platelet Volume 6.1 FL (6.5-10.1) L Neutrophils (%) (Auto) 42.1 % (45.0-75.0) L Lymphocytes (%) (Auto) 37.1 % (20.0-45.0) Monocytes (%) (Auto) 12.8 % (1.0-10.0) H Eosinophils (%) (Auto) 5.1 % (0.0-3.0) H Basophils (%) (Auto) 2.9 % (0.0-2.0) H Sodium Level 138 MMOL/L (136-145) Potassium Level 4.4 MMOL/L (3.5-5.1) Chloride Level 105 MMOL/L (98-107) Carbon Dioxide Level 24 MMOL/L (21-32) Anion Gap 9 mmol/L (5-15) Blood Urea Nitrogen 27 mg/dL (7-18) H Creatinine 1.2 MG/DL (0.55-1.30) Estimat Glomerular Filtration Rate > 60 mL/min (>60) Glucose Level 99 MG/DL (74-106) Calcium Level 9.2 MG/DL (8.5-10.1) Intake and Output 05/16/18 05/17/18 19:00 07:00 Intake Total 590 ml Output Total 300 ml 800 ml Balance 290 ml -800 ml Intake Oral 590 ml Output Urine Total 300 ml 800 ml Objective General Appearance: alert, moderate distress, thin EENT: PERRL/EOMI, normal ENT inspection Neck: non-tender, normal alignment, supple, normal inspection Cardiovascular: normal peripheral pulses, normal rate, regular rhythm, no gallop/murmur, no JVD Respiratory/Chest: lungs clear, normal breath sounds, no respiratory distress, no accessory muscle use Abdomen: normal bowel sounds, non tender, soft, no organomegaly, no mass Extremities: normal range of motion, other - bilateral lower extremity erythema and dry skin Edema: moderate edema 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 Continue cefazolin per ID. (4) CHF (congestive heart failure) (5) Edema (6) Ulcer of right lower leg Assessment & Plan: See podiatry note. (7) HTN (hypertension) (8) COPD exacerbation Assessment & Plan: see pulmonary note. (9) CAD (coronary artery disease) Assessment & Plan: S/P CABG-see cardiology note. (10) Renal failure Assessment & Plan: Diabetic nephropathy vs ATN. See nephrology note. (11) Chest pain Assessment & Plan: COPD vs ACS? See pulmonary and cardiology note. Status: progressing Shantanu Reyna MD May 17, 2018 18:38
[2018-05-17 19:53] VITALS: BP 122/76
[2018-05-17] MEDS: Atorvastatin 20mg tab ORAL SCH (20:22)
--- NOTE | 2018-05-17 22:16 | Diagnostic Imaging Report ---
APPROVED REPORT CPT Code: 76274 Symptoms Comments: Pain Swelling RIGHT LEG: Common femoral artery waveform analysis is within normal limits at rest. Color flow duplex sonography reveals calcification throughout the superficial femoral artery. A mild (10-30%) stenosis is seen in the mid superficial femoral artery. There is no evidence of occlusion within this segment. The tibioperoneal artery is patent. The tibioperoneal trunk was not well visualized. The anterior, peroneal, and distal posterior tibial arteries are also mildly calcified. The Doppler tibial artery waveform analysis is compatible with moderate to severe ischemia at rest. LEFT LEG: Common femoral artery waveform analysis is within normal limits at rest. Color flow duplex sonography reveals calcification throughout the superficial femoral artery. There is no evidence of stenosis or occlusion within these segments. The tibioperoneal artery and tibioperoneal trunk are patent. The anterior, peroneal, and distal posterior tibial arteries are also mildly calcified. The Doppler tibial artery waveform analysis is compatible with moderate to severe ischemia at rest.
[2018-05-18] VITALS: BP 115/73
[2018-05-18] MEDS: Morphine Sulfate 4mg/ml Inj IVP PRN ×7 (00:48→20:55)
[2018-05-18 04:00] VITALS: BP 125/78
[2018-05-18 07:52] VITALS: BP 130/77
[2018-05-18 08:10] LABS: BASOPHILS % (AUTO) 2.8 % (0.0-2.0); HEMATOCRIT 44.7 % (42.0-52.0); HEMOGLOBIN 13.4 G/DL (14.2-18.0); LYMPHOCYTES % (AUTO) 36.3 % (20.0-45.0); MEAN CORPUSCULAR VOLUME 84 FL (80-99); MONOCYTES % (AUTO) 16.1 % (1.0-10.0); NEUTROPHILS % (AUTO) 39.8 % (45.0-75.0); PLATELET COUNT 305 K/UL (150-450); RED BLOOD COUNT 5.33 M/UL (4.70-6.10); RED CELL DISTRIBUTION WIDTH 17.3 % (11.6-14.8); WHITE BLOOD COUNT 5.6 K/UL (4.8-10.8)
[2018-05-18 08:27] LABS: ALANINE AMINOTRANSFERASE 17 U/L (12-78); ALBUMIN 3.1 G/DL (3.4-5.0); ALBUMIN/GLOBULIN RATIO 0.8 (1.0-2.7); ALKALINE PHOSPHATASE 98 U/L (46-116); ANION GAP 10 mmol/L (5-15); ASPARTATE AMINO TRANSFERASE 20 U/L (15-37); BILIRUBIN,TOTAL 0.3 MG/DL (0.2-1.0); BLOOD UREA NITROGEN 23 mg/dL (7-18); CALCIUM 8.5 MG/DL (8.5-10.1); CARBON DIOXIDE 21 MMOL/L (21-32); CHLORIDE 106 MMOL/L (98-107); CREATININE 1.3 MG/DL (0.55-1.30); PHOSPHORUS 3.5 MG/DL (2.5-4.9); POTASSIUM 4.1 MMOL/L (3.5-5.1); SODIUM 137 MMOL/L (136-145)
[2018-05-18] MEDS: Theophylline ER 100mg ORAL SCH ×2 (08:47→20:54)
[2018-05-18] MEDS: Heparin 5000 units/ml inj SUBQ SCH ×2 (08:57→21:00)
--- NOTE | 2018-05-18 09:45 | Nephrology Progress Note ---
Assessment/Plan Problem List: (1) Acute on chronic renal failure (2) CAD (coronary artery disease) (3) Seizure disorder Assessment Acute on chronic renal failure Cr now WNL Chest pain, ACS h/o CABGS CHF exacerbation COPD exacerbation Chronic ulcer of right leg Cellulitis of right leg / Ankle Malnutrition Hypothyroidism Plan Avoid Nephrotoxics Keep BP in check Monitor renal parameters Urine studies per ID / Podiatry Subjective ROS Limited/Unobtainable: No Constitutional: Reports: malaise Objective Objective Last 24 Hour Vital Signs Date Time Temp Pulse Resp B/P (MAP) Pulse Ox O2 Delivery O2 Flow Rate FiO2 05/18/18 08:47 98 130/77 05/18/18 07:52 98.6 98 20 130/77 100 Room Air 98.6 05/18/18 04:00 98.3 101 18 125/78 97 Room Air 98.3 05/18/18 00:00 98.0 104 18 115/73 95 Room Air 98.0 05/17/18 19:53 98.2 103 18 122/76 95 Room Air 98.2 05/17/18 19:20 101 20 Room Air 21 05/17/18 18:36 98.2 05/17/18 18:06 98.2 05/17/18 15:57 98.2 95 19 136/81 96 98.2 05/17/18 15:05 99.0 05/17/18 11:58 99.0 05/17/18 11:49 99.0 99 19 129/79 96 99.0 Intake and Output 05/17/18 05/18/18 19:00 07:00 Intake Total 480 ml 360 ml Output Total 900 ml 300 ml Balance -420 ml 60 ml Intake Oral 480 ml 360 ml Output Urine Total 900 ml 300 ml # Voids 2 4 Laboratory Tests 05/18/18 07:39: White Blood Count 5.6, Red Blood Count 5.33, Hemoglobin 13.4L, Hematocrit 44.7, Mean Corpuscular Volume 84, Mean Corpuscular Hemoglobin 25.1L, Mean Corpuscular Hemoglobin Concent 30.0L, Red Cell Distribution Width 17.3H, Platelet Count 305 , Mean Platelet Volume 6.1L, Neutrophils (%) (Auto) 39.8L, Lymphocytes (%) (Auto ) 36.3, Monocytes (%) (Auto) 16.1H, Eosinophils (%) (Auto) 5.0H, Basophils (%) ( Auto) 2.8H, Sodium Level 137, Potassium Level 4.1, Chloride Level 106, Carbon Dioxide Level 21, Anion Gap 10, Blood Urea Nitrogen 23H, Creatinine 1.3, Estimat Glomerular Filtration Rate > 60, Glucose Level 158H, Calcium Level 8.5, Phosphorus Level 3.5, Magnesium Level 1.9, Total Bilirubin 0.3, Aspartate Amino Transf (AST/SGOT) 20, Alanine Aminotransferase (ALT/SGPT) 17, Alkaline Phosphatase 98, Total Protein 7.0, Albumin 3.1L, Globulin 3.9, Albumin/Globulin Ratio 0.8L Height (Feet): 6 Height (Inches): 1.00 Weight (Pounds): 137 General Appearance: no apparent distress Objective PE no change KACEY BERNSTEIN May 18, 2018 09:45
[2018-05-18 12:00] VITALS: BP_SYST 130; BP_SYST 137; BP_DIAS 77; BP_DIAS 80
--- NOTE | 2018-05-18 12:21 | General Progress Note ---
Assessment/Plan Assessment/Plan Mdd poor appetite failure to thrive remeron 15mg qhs provided ro/st Subjective Date patient seen: May 18, 2018 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: Reports: anxiety, depressed, emotional problems Allergies: Coded Allergies: EGG (Verified Allergy, Unknown, 09/22/15) MEPERIDINE (Verified Allergy, Unknown, 12/21/10) NITROGLYCERIN (Verified Allergy, Unknown, hives, 02/18/17) Subjective the pt is in a good jess. asked for script Objective Last 24 Hour Vital Signs Date Time Temp Pulse Resp B/P (MAP) Pulse Ox O2 Delivery O2 Flow Rate FiO2 05/18/18 12:00 98.6 98 20 130/77 100 98.6 05/18/18 08:47 98 130/77 05/18/18 07:52 98.6 98 20 130/77 100 Room Air 98.6 05/18/18 04:00 98.3 101 18 125/78 97 Room Air 98.3 05/18/18 00:00 98.0 104 18 115/73 95 Room Air 98.0 05/17/18 19:53 98.2 103 18 122/76 95 Room Air 98.2 05/17/18 19:20 101 20 Room Air 21 05/17/18 18:36 98.2 05/17/18 18:06 98.2 05/17/18 15:57 98.2 95 19 136/81 96 98.2 05/17/18 15:05 99.0 Intake and Output 05/17/18 05/18/18 19:00 07:00 Intake Total 480 ml 360 ml Output Total 900 ml 300 ml Balance -420 ml 60 ml Intake Oral 480 ml 360 ml Output Urine Total 900 ml 300 ml # Voids 2 4 Laboratory Tests 05/18/18 07:39: White Blood Count 5.6, Red Blood Count 5.33, Hemoglobin 13.4L, Hematocrit 44.7, Mean Corpuscular Volume 84, Mean Corpuscular Hemoglobin 25.1L, Mean Corpuscular Hemoglobin Concent 30.0L, Red Cell Distribution Width 17.3H, Platelet Count 305 , Mean Platelet Volume 6.1L, Neutrophils (%) (Auto) 39.8L, Lymphocytes (%) (Auto ) 36.3, Monocytes (%) (Auto) 16.1H, Eosinophils (%) (Auto) 5.0H, Basophils (%) ( Auto) 2.8H, Sodium Level 137, Potassium Level 4.1, Chloride Level 106, Carbon Dioxide Level 21, Anion Gap 10, Blood Urea Nitrogen 23H, Creatinine 1.3, Estimat Glomerular Filtration Rate > 60, Glucose Level 158H, Calcium Level 8.5, Phosphorus Level 3.5, Magnesium Level 1.9, Total Bilirubin 0.3, Aspartate Amino Transf (AST/SGOT) 20, Alanine Aminotransferase (ALT/SGPT) 17, Alkaline Phosphatase 98, Total Protein 7.0, Albumin 3.1L, Globulin 3.9, Albumin/Globulin Ratio 0.8L Height (Feet): 6 Height (Inches): 1.00 Weight (Pounds): 137 Rachael Buckley M.D. May 18, 2018 12:21
--- NOTE | 2018-05-18 12:24 | Cardiology Progress Note ---
Assessment/Plan Status: stable Assessment/Plan -Aspirin -Statin -Nitro prn chest pain Serial EKG and troponin - reviewed, no ACS TTE with normal LV function and valvular apparatus Due to hx of PCI and CAD patient will need stress test prior to discharge and high MARTHA score - patient refused - aware or R/B/A Antibiotics for LE cellulitis Subjective Cardiovascular: Reports: no symptoms Respiratory: Reports: no symptoms Gastrointestinal/Abdominal: Reports: no symptoms Genitourinary: Reports: no symptoms Subjective No acute events, tolerating PO, no CP currently, vitals stable, troponin negative x2, Echo with preserved LV Function Patient refused stress test, states he had them in past and they were normal He wants to do physical therapy today No complaints at this time Objective Last 24 Hour Vital Signs Date Time Temp Pulse Resp B/P (MAP) Pulse Ox O2 Delivery O2 Flow Rate FiO2 05/18/18 12:00 98.6 98 20 130/77 100 98.6 05/18/18 08:47 98 130/77 05/18/18 07:52 98.6 98 20 130/77 100 Room Air 98.6 05/18/18 04:00 98.3 101 18 125/78 97 Room Air 98.3 05/18/18 00:00 98.0 104 18 115/73 95 Room Air 98.0 05/17/18 19:53 98.2 103 18 122/76 95 Room Air 98.2 05/17/18 19:20 101 20 Room Air 21 05/17/18 18:36 98.2 05/17/18 18:06 98.2 05/17/18 15:57 98.2 95 19 136/81 96 98.2 05/17/18 15:05 99.0 General Appearance: no apparent distress EENT: PERRL/EOMI Neck: non-tender Rhythm: NSR Cardiovascular: normal peripheral pulses Respiratory/Chest: chest wall non-tender Abdomen: normal bowel sounds Extremities: normal range of motion 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 Intake and Output 05/17/18 05/18/18 19:00 07:00 Intake Total 480 ml 360 ml Output Total 900 ml 300 ml Balance -420 ml 60 ml Intake Oral 480 ml 360 ml Output Urine Total 900 ml 300 ml # Voids 2 4 Laboratory Tests Test 05/18/18 07:39 White Blood Count 5.6 K/UL (4.8-10.8) Red Blood Count 5.33 M/UL (4.70-6.10) Hemoglobin 13.4 G/DL (14.2-18.0) L Hematocrit 44.7 % (42.0-52.0) Mean Corpuscular Volume 84 FL (80-99) Mean Corpuscular Hemoglobin 25.1 PG (27.0-31.0) L Mean Corpuscular Hemoglobin Concent 30.0 G/DL (32.0-36.0) L Red Cell Distribution Width 17.3 % (11.6-14.8) H Platelet Count 305 K/UL (150-450) Mean Platelet Volume 6.1 FL (6.5-10.1) L Neutrophils (%) (Auto) 39.8 % (45.0-75.0) L Lymphocytes (%) (Auto) 36.3 % (20.0-45.0) Monocytes (%) (Auto) 16.1 % (1.0-10.0) H Eosinophils (%) (Auto) 5.0 % (0.0-3.0) H Basophils (%) (Auto) 2.8 % (0.0-2.0) H Sodium Level 137 MMOL/L (136-145) Potassium Level 4.1 MMOL/L (3.5-5.1) Chloride Level 106 MMOL/L (98-107) Carbon Dioxide Level 21 MMOL/L (21-32) Anion Gap 10 mmol/L (5-15) Blood Urea Nitrogen 23 mg/dL (7-18) H Creatinine 1.3 MG/DL (0.55-1.30) Estimat Glomerular Filtration Rate > 60 mL/min (>60) Glucose Level 158 MG/DL (74-106) H Calcium Level 8.5 MG/DL (8.5-10.1) Phosphorus Level 3.5 MG/DL (2.5-4.9) Magnesium Level 1.9 MG/DL (1.8-2.4) Total Bilirubin 0.3 MG/DL (0.2-1.0) Aspartate Amino Transf (AST/SGOT) 20 U/L (15-37) Alanine Aminotransferase (ALT/SGPT) 17 U/L (12-78) Alkaline Phosphatase 98 U/L (46-116) Total Protein 7.0 G/DL (6.4-8.2) Albumin 3.1 G/DL (3.4-5.0) L Globulin 3.9 g/dL Albumin/Globulin Ratio 0.8 (1.0-2.7) L Adonis Winn M.D. May 18, 2018 12:24
--- NOTE | 2018-05-18 13:18 | Pulmonology Progress Note ---
Assessment/Plan Problems: (1) ACS (acute coronary syndrome) (2) Cellulitis of right ankle (3) Severe malnutrition (4) Emphysema lung (5) Hypothyroidism (6) Chronic pain (7) Hx of CABG Assessment/Plan no new complains wants physical therapy refused stress test stress test pain management f/u renal parameters wound care check electrolytes continue abx on cefazolin respiratory treatment dc home in am dvt prophylaxis Subjective ROS Limited/Unobtainable: No Constitutional: Reports: no symptoms HEENT: Repors: no symptoms Respiratory: Reports: no symptoms Cardiovascular: Reports: no symptoms Allergies: Coded Allergies: EGG (Verified Allergy, Unknown, 09/22/15) MEPERIDINE (Verified Allergy, Unknown, 12/21/10) NITROGLYCERIN (Verified Allergy, Unknown, hives, 02/18/17) Objective Last 24 Hour Vital Signs Date Time Temp Pulse Resp B/P (MAP) Pulse Ox O2 Delivery O2 Flow Rate FiO2 05/18/18 12:00 98.6 96 20 137/80 99 98.6 05/18/18 08:50 102 20 Room Air 21 05/18/18 08:47 98 130/77 05/18/18 07:52 98.6 98 20 130/77 100 Room Air 98.6 05/18/18 04:00 98.3 101 18 125/78 97 Room Air 98.3 05/18/18 00:00 98.0 104 18 115/73 95 Room Air 98.0 05/17/18 19:53 98.2 103 18 122/76 95 Room Air 98.2 05/17/18 19:20 101 20 Room Air 21 05/17/18 18:36 98.2 05/17/18 18:06 98.2 05/17/18 15:57 98.2 95 19 136/81 96 98.2 05/17/18 15:05 99.0 Intake and Output 05/17/18 05/18/18 19:00 07:00 Intake Total 480 ml 360 ml Output Total 900 ml 300 ml Balance -420 ml 60 ml Intake Oral 480 ml 360 ml Output Urine Total 900 ml 300 ml # Voids 2 4 Objective General Appearance: cachetic HEENT: normocephalic, atraumatic Respiratory/Chest: chest wall non-tender, lungs clear Cardiovascular: normal peripheral pulses, normal rate Abdomen: soft, non tender Genitourinary: normal external genitalia Extremities: no clubbing 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 Laboratory Tests 05/18/18 07:39: White Blood Count 5.6, Red Blood Count 5.33, Hemoglobin 13.4L, Hematocrit 44.7, Mean Corpuscular Volume 84, Mean Corpuscular Hemoglobin 25.1L, Mean Corpuscular Hemoglobin Concent 30.0L, Red Cell Distribution Width 17.3H, Platelet Count 305 , Mean Platelet Volume 6.1L, Neutrophils (%) (Auto) 39.8L, Lymphocytes (%) (Auto ) 36.3, Monocytes (%) (Auto) 16.1H, Eosinophils (%) (Auto) 5.0H, Basophils (%) ( Auto) 2.8H, Sodium Level 137, Potassium Level 4.1, Chloride Level 106, Carbon Dioxide Level 21, Anion Gap 10, Blood Urea Nitrogen 23H, Creatinine 1.3, Estimat Glomerular Filtration Rate > 60, Glucose Level 158H, Calcium Level 8.5, Phosphorus Level 3.5, Magnesium Level 1.9, Total Bilirubin 0.3, Aspartate Amino Transf (AST/SGOT) 20, Alanine Aminotransferase (ALT/SGPT) 17, Alkaline Phosphatase 98, Total Protein 7.0, Albumin 3.1L, Globulin 3.9, Albumin/Globulin Ratio 0.8L Current Medications Medications (Trade) Dose Ordered Sig/Aminata Route PRN Reason Start Time Stop Time Status Last Admin Dose Admin Acetaminophen (Tylenol) 650 mg Q4H PRN ORAL fever 05/16/18 18:30 06/11/18 06:29 Amlodipine Besylate (Norvasc) 10 mg DAILY ORAL 05/17/18 09:00 06/11/18 08:59 05/18/18 08:47 Atorvastatin Calcium (Lipitor) 20 mg BEDTIME ORAL 05/16/18 21:00 06/11/18 20:59 05/17/18 20:22 Clopidogrel Bisulfate (Plavix) 75 mg DAILY ORAL 05/17/18 09:00 06/11/18 08:59 05/18/18 08:47 Dextrose (Dextrose 50%) STAT PRN IV Hypoglycemia 05/16/18 16:30 06/15/18 16:29 Diphenhydramine HCl (Benadryl) 25 mg Q3H PRN IVP Itching 05/16/18 16:30 06/11/18 16:29 Heparin Sodium (Porcine) (Heparin 5000 units/ml) 5,000 units EVERY 12 HOURS SUBQ 05/16/18 21:00 06/11/18 08:59 05/18/18 08:57 Lansoprazole (Prevacid) 30 mg BID ORAL 05/16/18 18:00 06/11/18 17:59 05/18/18 08:47 Levetiracetam (Keppra) 500 mg EVERY 12 HOURS ORAL 05/16/18 21:00 06/11/18 08:59 05/18/18 08:47 Mirtazapine (Remeron) 15 mg BEDTIME ORAL 05/16/18 21:00 06/11/18 20:59 05/17/18 20:22 Morphine Sulfate (Morphine Sulfate) 3 mg Q3H PRN IVP For Pain 05/16/18 19:00 05/23/18 18:59 05/18/18 11:51 Ondansetron HCl (Zofran) 4 mg Q6H PRN IVP Nausea & Vomiting 05/16/18 18:30 06/11/18 06:29 Polyethylene Glycol (Miralax) 17 gm DAILYPRN PRN ORAL Constipation 05/16/18 16:30 06/15/18 16:29 Temazepam (Restoril) 15 mg HSPRN PRN ORAL Insomnia 05/16/18 16:30 05/23/18 16:29 Theophylline (Wilfrido-Dur) 100 mg EVERY 12 HOURS ORAL 05/16/18 21:00 06/11/18 08:59 05/18/18 08:47 Jessie Magana MD May 18, 2018 13:18
[2018-05-18 16:00] VITALS: BP 143/76
--- NOTE | 2018-05-18 17:33 | Infectious Diseases Prog Note ---
Assessment/Plan Assessment/Plan Assessment: Chest pain, SP B/l leg swelling and cellulitis L> R, L leg cellulitis: improving, now more swelling in R than left R Ankle chronic ulcer- healing, no signs of infection -R foot xray 03/2018: No acute injury identified. Abnormal fifth MPJ joint which may be on the basis of previous surgery/trauma or old erosive process. Osteoporosis -a. duplex: A mild (10-30%) stenosis is seen in the mid superficial femoral artery. There is no evidence of occlusion within this segment. Afebrile, no leukocytosis\ -u/a neg -CXR No acute process HTN severe malnutrition MDD tobacco abuse seizure disorder emphysema DM2 CAD s/p CABG COPD -recent exacerbation requiring admission 02/2018 bedbound Plan: - Continue to monitor pt off of AB Rx -05/16 SP Ancef # 5 -05/12 SP Cefepime and Zosyn x1 -03/26 SP PO Levaquin #3 -03/23/18 SP Zosyn #2 -f/u B/l V. duplex -Monitor CBC/BMP, temperatures Subjective Allergies: Coded Allergies: EGG (Verified Allergy, Unknown, 09/22/15) MEPERIDINE (Verified Allergy, Unknown, 12/21/10) NITROGLYCERIN (Verified Allergy, Unknown, hives, 02/18/17) Subjective afebrile no leukocytosis off abx now Objective Vital Signs Last 24 Hour Vital Signs Date Time Temp Pulse Resp B/P (MAP) Pulse Ox O2 Delivery O2 Flow Rate FiO2 05/18/18 16:00 98.1 103 20 143/76 100 98.1 05/18/18 12:00 98.6 96 20 137/80 99 98.6 05/18/18 08:50 102 20 Room Air 21 05/18/18 08:47 98 130/77 05/18/18 07:52 98.6 98 20 130/77 100 Room Air 98.6 05/18/18 04:00 98.3 101 18 125/78 97 Room Air 98.3 05/18/18 00:00 98.0 104 18 115/73 95 Room Air 98.0 05/17/18 19:53 98.2 103 18 122/76 95 Room Air 98.2 05/17/18 19:20 101 20 Room Air 21 05/17/18 18:36 98.2 05/17/18 18:06 98.2 Height (Feet): 6 Height (Inches): 1.00 Weight (Pounds): 137 Objective General Appearance: no apparent distress Lines, tubes and drains: peripheral HEENT: normocephalic Neck: non-tender Respiratory/Chest: chest wall non-tender Cardiovascular/Chest: normal peripheral pulses Abdomen: normal bowel sounds Extremities: normal range of motion; L>R b/l swelling; L leg swelling, erythema and warmth, TTP Skin Exam: normal pigmentation Neurologic: sugar drier II-XII grossly normal Laboratory Tests Test 05/18/18 07:39 White Blood Count 5.6 K/UL (4.8-10.8) Red Blood Count 5.33 M/UL (4.70-6.10) Hemoglobin 13.4 G/DL (14.2-18.0) L Hematocrit 44.7 % (42.0-52.0) Mean Corpuscular Volume 84 FL (80-99) Mean Corpuscular Hemoglobin 25.1 PG (27.0-31.0) L Mean Corpuscular Hemoglobin Concent 30.0 G/DL (32.0-36.0) L Red Cell Distribution Width 17.3 % (11.6-14.8) H Platelet Count 305 K/UL (150-450) Mean Platelet Volume 6.1 FL (6.5-10.1) L Neutrophils (%) (Auto) 39.8 % (45.0-75.0) L Lymphocytes (%) (Auto) 36.3 % (20.0-45.0) Monocytes (%) (Auto) 16.1 % (1.0-10.0) H Eosinophils (%) (Auto) 5.0 % (0.0-3.0) H Basophils (%) (Auto) 2.8 % (0.0-2.0) H Sodium Level 137 MMOL/L (136-145) Potassium Level 4.1 MMOL/L (3.5-5.1) Chloride Level 106 MMOL/L (98-107) Carbon Dioxide Level 21 MMOL/L (21-32) Anion Gap 10 mmol/L (5-15) Blood Urea Nitrogen 23 mg/dL (7-18) H Creatinine 1.3 MG/DL (0.55-1.30) Estimat Glomerular Filtration Rate > 60 mL/min (>60) Glucose Level 158 MG/DL (74-106) H Calcium Level 8.5 MG/DL (8.5-10.1) Phosphorus Level 3.5 MG/DL (2.5-4.9) Magnesium Level 1.9 MG/DL (1.8-2.4) Total Bilirubin 0.3 MG/DL (0.2-1.0) Aspartate Amino Transf (AST/SGOT) 20 U/L (15-37) Alanine Aminotransferase (ALT/SGPT) 17 U/L (12-78) Alkaline Phosphatase 98 U/L (46-116) Total Protein 7.0 G/DL (6.4-8.2) Albumin 3.1 G/DL (3.4-5.0) L Globulin 3.9 g/dL Albumin/Globulin Ratio 0.8 (1.0-2.7) L Current Medications Medications (Trade) Dose Ordered Sig/Aminata Route PRN Reason Start Time Stop Time Status Last Admin Dose Admin Acetaminophen (Tylenol) 650 mg Q4H PRN ORAL fever 05/16/18 18:30 06/11/18 06:29 Amlodipine Besylate (Norvasc) 10 mg DAILY ORAL 05/17/18 09:00 06/11/18 08:59 05/18/18 08:47 Atorvastatin Calcium (Lipitor) 20 mg BEDTIME ORAL 05/16/18 21:00 06/11/18 20:59 05/17/18 20:22 Clopidogrel Bisulfate (Plavix) 75 mg DAILY ORAL 05/17/18 09:00 06/11/18 08:59 05/18/18 08:47 Dextrose (Dextrose 50%) STAT PRN IV Hypoglycemia 05/16/18 16:30 06/15/18 16:29 Diphenhydramine HCl (Benadryl) 25 mg Q3H PRN IVP Itching 05/16/18 16:30 06/11/18 16:29 Heparin Sodium (Porcine) (Heparin 5000 units/ml) 5,000 units EVERY 12 HOURS SUBQ 05/16/18 21:00 06/11/18 08:59 05/18/18 08:57 Lansoprazole (Prevacid) 30 mg BID ORAL 05/16/18 18:00 06/11/18 17:59 05/18/18 08:47 Levetiracetam (Keppra) 500 mg EVERY 12 HOURS ORAL 05/16/18 21:00 06/11/18 08:59 05/18/18 08:47 Mirtazapine (Remeron) 15 mg BEDTIME ORAL 05/16/18 21:00 06/11/18 20:59 05/17/18 20:22 Morphine Sulfate (Morphine Sulfate) 3 mg Q3H PRN IVP For Pain 05/16/18 19:00 05/23/18 18:59 05/18/18 14:50 Ondansetron HCl (Zofran) 4 mg Q6H PRN IVP Nausea & Vomiting 05/16/18 18:30 06/11/18 06:29 Polyethylene Glycol (Miralax) 17 gm DAILYPRN PRN ORAL Constipation 05/16/18 16:30 06/15/18 16:29 Temazepam (Restoril) 15 mg HSPRN PRN ORAL Insomnia 05/16/18 16:30 05/23/18 16:29 Theophylline (Wilfrido-Dur) 100 mg EVERY 12 HOURS ORAL 05/16/18 21:00 06/11/18 08:59 05/18/18 08:47 Jessica Parry M.D. May 18, 2018 17:33
--- NOTE | 2018-05-18 19:08 | Internal Med Progress Note ---
Subjective Date of Service: May 18, 2018 Physician Name Reyna,Shantanu Attending Physician Phil Wright MD Current Medications Medications (Trade) Dose Ordered Sig/Aminata Route PRN Reason Start Time Stop Time Status Last Admin Dose Admin Acetaminophen (Tylenol) 650 mg Q4H PRN ORAL fever 05/16/18 18:30 06/11/18 06:29 Amlodipine Besylate (Norvasc) 10 mg DAILY ORAL 05/17/18 09:00 06/11/18 08:59 05/18/18 08:47 Atorvastatin Calcium (Lipitor) 20 mg BEDTIME ORAL 05/16/18 21:00 06/11/18 20:59 05/17/18 20:22 Clopidogrel Bisulfate (Plavix) 75 mg DAILY ORAL 05/17/18 09:00 06/11/18 08:59 05/18/18 08:47 Dextrose (Dextrose 50%) STAT PRN IV Hypoglycemia 05/16/18 16:30 06/15/18 16:29 Diphenhydramine HCl (Benadryl) 25 mg Q3H PRN IVP Itching 05/16/18 16:30 06/11/18 16:29 Heparin Sodium (Porcine) (Heparin 5000 units/ml) 5,000 units EVERY 12 HOURS SUBQ 05/16/18 21:00 06/11/18 08:59 05/18/18 08:57 Lansoprazole (Prevacid) 30 mg BID ORAL 05/16/18 18:00 06/11/18 17:59 05/18/18 17:36 Levetiracetam (Keppra) 500 mg EVERY 12 HOURS ORAL 05/16/18 21:00 06/11/18 08:59 05/18/18 08:47 Mirtazapine (Remeron) 15 mg BEDTIME ORAL 05/16/18 21:00 06/11/18 20:59 05/17/18 20:22 Morphine Sulfate (Morphine Sulfate) 3 mg Q3H PRN IVP For Pain 05/16/18 19:00 05/23/18 18:59 05/18/18 17:40 Ondansetron HCl (Zofran) 4 mg Q6H PRN IVP Nausea & Vomiting 05/16/18 18:30 06/11/18 06:29 Polyethylene Glycol (Miralax) 17 gm DAILYPRN PRN ORAL Constipation 05/16/18 16:30 06/15/18 16:29 Temazepam (Restoril) 15 mg HSPRN PRN ORAL Insomnia 05/16/18 16:30 05/23/18 16:29 Theophylline (Wilfrido-Dur) 100 mg EVERY 12 HOURS ORAL 05/16/18 21:00 06/11/18 08:59 05/18/18 08:47 Allergies: Coded Allergies: EGG (Verified Allergy, Unknown, 09/22/15) MEPERIDINE (Verified Allergy, Unknown, 12/21/10) NITROGLYCERIN (Verified Allergy, Unknown, hives, 02/18/17) ROS Limited/Unobtainable: No Constitutional: Reports: no symptoms HEENT: Reports: no symptoms Cardiovascular: Reports: no symptoms Respiratory: Reports: no symptoms Gastrointestinal/Abdominal: Reports: no symptoms Genitourinary: Reports: no symptoms 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: Reports: no symptoms Subjective 67 YO M admitted with chest pain. Now bilateral leg cellulitis with edema. Cover for [facility] Wilfred-Dr Wright. Discharge held. Refused stress test Objective Last Vital Signs Date Time Temp Pulse Resp B/P (MAP) Pulse Ox O2 Delivery O2 Flow Rate FiO2 05/18/18 16:00 98.1 103 20 143/76 100 98.1 05/18/18 08:50 Room Air 21 Laboratory Tests Test 05/18/18 07:39 White Blood Count 5.6 K/UL (4.8-10.8) Red Blood Count 5.33 M/UL (4.70-6.10) Hemoglobin 13.4 G/DL (14.2-18.0) L Hematocrit 44.7 % (42.0-52.0) Mean Corpuscular Volume 84 FL (80-99) Mean Corpuscular Hemoglobin 25.1 PG (27.0-31.0) L Mean Corpuscular Hemoglobin Concent 30.0 G/DL (32.0-36.0) L Red Cell Distribution Width 17.3 % (11.6-14.8) H Platelet Count 305 K/UL (150-450) Mean Platelet Volume 6.1 FL (6.5-10.1) L Neutrophils (%) (Auto) 39.8 % (45.0-75.0) L Lymphocytes (%) (Auto) 36.3 % (20.0-45.0) Monocytes (%) (Auto) 16.1 % (1.0-10.0) H Eosinophils (%) (Auto) 5.0 % (0.0-3.0) H Basophils (%) (Auto) 2.8 % (0.0-2.0) H Sodium Level 137 MMOL/L (136-145) Potassium Level 4.1 MMOL/L (3.5-5.1) Chloride Level 106 MMOL/L (98-107) Carbon Dioxide Level 21 MMOL/L (21-32) Anion Gap 10 mmol/L (5-15) Blood Urea Nitrogen 23 mg/dL (7-18) H Creatinine 1.3 MG/DL (0.55-1.30) Estimat Glomerular Filtration Rate > 60 mL/min (>60) Glucose Level 158 MG/DL (74-106) H Calcium Level 8.5 MG/DL (8.5-10.1) Phosphorus Level 3.5 MG/DL (2.5-4.9) Magnesium Level 1.9 MG/DL (1.8-2.4) Total Bilirubin 0.3 MG/DL (0.2-1.0) Aspartate Amino Transf (AST/SGOT) 20 U/L (15-37) Alanine Aminotransferase (ALT/SGPT) 17 U/L (12-78) Alkaline Phosphatase 98 U/L (46-116) Total Protein 7.0 G/DL (6.4-8.2) Albumin 3.1 G/DL (3.4-5.0) L Globulin 3.9 g/dL Albumin/Globulin Ratio 0.8 (1.0-2.7) L Intake and Output 05/17/18 05/18/18 19:00 07:00 Intake Total 480 ml 360 ml Output Total 900 ml 300 ml Balance -420 ml 60 ml Intake Oral 480 ml 360 ml Output Urine Total 900 ml 300 ml # Voids 2 4 Objective General Appearance: alert, moderate distress, thin EENT: PERRL/EOMI, normal ENT inspection Neck: non-tender, normal alignment, supple, normal inspection Cardiovascular: normal peripheral pulses, normal rate, regular rhythm, no gallop/murmur, no JVD Respiratory/Chest: lungs clear, normal breath sounds, no respiratory distress, no accessory muscle use Abdomen: normal bowel sounds, non tender, soft, no organomegaly, no mass Extremities: normal range of motion, other - bilateral lower extremity erythema and dry skin Edema: moderate edema Neurologic: cabin equipment 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 Continue cefazolin per ID. (4) CHF (congestive heart failure) (5) Edema (6) Ulcer of right lower leg Assessment & Plan: See podiatry note. (7) HTN (hypertension) (8) COPD exacerbation Assessment & Plan: see pulmonary note. (9) CAD (coronary artery disease) Assessment & Plan: S/P CABG-see cardiology note. (10) Renal failure Assessment & Plan: Diabetic nephropathy vs ATN. See nephrology note. (11) Chest pain Assessment & Plan: COPD vs ACS? See pulmonary and cardiology note. Status: stable Shantanu Reyna MD May 18, 2018 19:08
[2018-05-18 20:00] VITALS: BP 118/74
[2018-05-18] MEDS: Atorvastatin 20mg tab ORAL SCH (20:54)
[2018-05-19] VITALS: BP 124/77
[2018-05-19] MEDS: Morphine Sulfate 4mg/ml Inj IVP PRN ×4 (00:11→09:33)
[2018-05-19 04:00] VITALS: BP 133/81
[2018-05-19 08:10] VITALS: BP 125/68
[2018-05-19 09:31] VITALS: BP 125/68
[2018-05-19] MEDS: Theophylline ER 100mg ORAL SCH (09:31)
[2018-05-19] MEDS: Heparin 5000 units/ml inj SUBQ SCH (09:38)
--- NOTE | 2018-05-19 11:02 | Nephrology Progress Note ---
Assessment/Plan Problem List: (1) Acute on chronic renal failure (2) CAD (coronary artery disease) (3) Seizure disorder Assessment Acute on chronic renal failure Cr now WNL Chest pain, ACS h/o CABGS CHF exacerbation COPD exacerbation Chronic ulcer of right leg Cellulitis of right leg / Ankle Malnutrition Hypothyroidism Plan Avoid Nephrotoxics Keep BP in check Monitor renal parameters Urine studies per ID / Podiatry Subjective ROS Limited/Unobtainable: No Constitutional: Reports: malaise Objective Objective Last 24 Hour Vital Signs Date Time Temp Pulse Resp B/P (MAP) Pulse Ox O2 Delivery O2 Flow Rate FiO2 05/19/18 10:03 98.1 05/19/18 09:33 98.1 05/19/18 09:31 95 125/68 05/19/18 08:10 98.1 95 16 125/68 93 Room Air 98.1 05/19/18 04:00 98.4 99 18 133/81 96 Room Air 98.4 05/19/18 00:00 98.1 102 18 124/77 97 Room Air 98.1 05/18/18 20:00 97.7 106 18 118/74 94 Room Air 97.7 05/18/18 19:08 99 20 Room Air 21 05/18/18 16:00 98.1 103 20 143/76 100 98.1 05/18/18 12:00 98.6 96 20 137/80 99 98.6 Intake and Output 05/18/18 05/19/18 19:00 07:00 Intake Total 500 ml Output Total 300 ml 950 ml Balance 200 ml -950 ml Intake Oral 500 ml Output Urine Total 300 ml 950 ml # Bowel Movements 1 Height (Feet): 6 Height (Inches): 1.00 Weight (Pounds): 137 General Appearance: no apparent distress Objective PE no change KACEY BERNSTEIN May 19, 2018 11:02
--- NOTE | 2018-05-19 23:12 | General Progress Note ---
Assessment/Plan Assessment/Plan Mdd poor appetite failure to thrive remeron 15mg qhs provided ro/st Subjective Date patient seen: May 19, 2018 Allergies: Coded Allergies: EGG (Verified Allergy, Unknown, 09/22/15) MEPERIDINE (Verified Allergy, Unknown, 12/21/10) NITROGLYCERIN (Verified Allergy, Unknown, hives, 02/18/17) Subjective the pt is in a good jess. was given a script Objective Last 24 Hour Vital Signs Date Time Temp Pulse Resp B/P (MAP) Pulse Ox O2 Delivery O2 Flow Rate FiO2 05/19/18 10:03 98.1 05/19/18 09:33 98.1 05/19/18 09:31 95 125/68 05/19/18 08:10 98.1 95 16 125/68 93 Room Air 98.1 05/19/18 04:00 98.4 99 18 133/81 96 Room Air 98.4 05/19/18 00:00 98.1 102 18 124/77 97 Room Air 98.1 Intake and Output 05/18/18 05/19/18 19:00 07:00 Intake Total 500 ml Output Total 300 ml 950 ml Balance 200 ml -950 ml Intake Oral 500 ml Output Urine Total 300 ml 950 ml # Bowel Movements 1 Height (Feet): 6 Height (Inches): 1.00 Weight (Pounds): 137 General Appearance: no apparent distress, alert Neurologic: oriented x 3, responsive, depressed affect Rachael Buckley M.D. May 19, 2018 23:12
--- NOTE | 2018-05-20 10:41 | Discharge Summary ---
Discharge Summary Discharge Summary _ DATE OF ADMISSION: 05/12/2018 DATE OF DISCHARGE: 05/19/2018 REASON FOR ADMISSION: 67 years old male with past medical history significant for COPD, emphysema, myocardial infarction, status post CABG, status post PTCI, seizure disorder , presented to emergency room with the complaint of chest pain. Upon evaluation in emergency room , troponin was negative , pro BNP 1002, creatinine was 1.6 Chest x-ray revealed no acute cardiopulmonary pathology, but showed hyperinflated lungs consistent with known history of COPD, evidence of pacemaker and prior CABG. Vital signs reveal tachycardia- 108 and elevated blood pressure -186/82. Lasix IV x 1 give in ED Pulse oximetry was stable on room air. EKG revealed normal sinus rhythm, no acute ischemic changes. Patient admitted with diagnosis of chest pain, possible CHF exacerbation, possible COPD exacerbation, acute on chronic renal failure , bilateral lower extremity cellulitis, the right ankle chronic ulcer CONSULTANTS: barrel tester and drainer Dr. Winn pulmonary Dr. Magana ID specialist Dr. Reich machine joiner cementer Dr. Molina psychiatrist Emblem Maker dr. Fowler [facility]RSE: Patient admitted initially to telemetry floor. Serial troponin were negative, EKG revealed no acute ischemic changes. Patient was ruled out for acute OK. Contracts Paralegal closely followed. Echocardiogram revealed preserved ejection fraction of 65-70% and right ventricular systolic pressure of 43 consistent with mild pulmonary hypertension, no evidence of wall motion abnormality. Lipid panel revealed elevated elevated LDL of 113. Patient was educated on cardiac, low-fat,no concentrated sweets diet. Contracts Paralegal recommended continue antiplatelet therapy and statin . Blood pressure was managed with calcium channel rasta, remained stable. Contracts Paralegal recommended stress test , given high BNADAR score and history of coronary artery disease, status post CABG and PTCA. However patient declined the test despite detailed explanation. Lasix IV one dose given in ED, no further need for diuretics. Pro BNP down to 562 from initial 1002. Reassess periodically for need of diuresis Supplemental oxygen provided as needed to keep pulse oximetry above 92%. Pulmonary toilet provided as needed. Theophylline was continued. No evidence of COPD exacerbation, no need for steroids. Infectious disease doctor followed. Patient had evidence of bilateral lower extremity cellulitis, initially left more than right, then later worse on the right side. Patient status post treatment with IV antibiotic. No fever, no leukocytosis. Infectious disease doctor recommended to monitor clinically and keep patient off antibiotics. Patient declined Venous Duplex scan, Emblem Maker closely followed . Patient had right lateral ankle chronic ulcer, healing no signs of infection noted. Patient also had malunion fracture of the right lower extremity. Arterial duplex revealed moderate to severe ischemia at rest. Seizure precaution maintained. Keppra was continued. No seizure activity while in the hospital. Power And Recovery Supervisor closely followed. Patient initially was hydrated . Renal parameters and electrolytes were closely monitored, electrolytes corrected as needed , nephrotoxins avoided . Creatinine down to normal . DVT and GI prophylaxis provided Nutritional recommendations implemented in plan of care. Psychiatrist closely followed. Reality orientation and supportive therapy provided. Patient started on Remeron. Pain management was addressed Bowel regimen instituted Supportive care provided Patient opted for hospice services and was evaluated by hospice nurse prior to discharge. Patient was stable for discharge home with hospice services FINAL DIAGNOSES: Bilateral lower extremity cellulitis, improving Right lateral ankle chronic ulcer, healing Peripheral arterial disease Severe malnutrition Acute on chronic renal failure, resolved Malunion fracture of right lower extremity COPD CHF Emphysema Coronary artery disease with history of CABG and PTCA Seizure disorder Chronic pain Major depressive disorder Failure to thrive DISCHARGE MEDICATIONS: See Medication Reconciliation list. DISCHARGE INSTRUCTIONS: Patient was discharged home with hospice service I have been assigned to dictate discharge summary for this account. I was not involved in the patient's management. Kristine Black NP May 20, 2018 10:41
== END 2018-05-19 13:00 | disposition hospice, home (50) | DRG 383 ==
LOC: EMR 03:30 → 2E 04:04 → EDBEDREQ 04:48 → 4W 05-16 16:00
DX: L03.116 Cellulitis of left lower limb (principal); N17.0 Acute kidney failure with tubular necrosis; E43 Unspecified severe protein-calorie malnutrition; I50.9 Heart failure, unspecified; N17.9 Acute kidney failure, unspecified; L97.319 Non-pressure chronic ulcer of right ankle with unspecified severity; L03.115 Cellulitis of right lower limb; I73.9 Peripheral vascular disease, unspecified; I25.2 Old myocardial infarction; Z88.6 Allergy status to analgesic agent; Z88.8 Allergy status to other drugs, medicaments and biological substances; Z79.02 Long term (current) use of antithrombotics/antiplatelets; I13.0 Hypertensive heart and chronic kidney disease with heart failure and stage 1 through stage 4 chronic kidney disease, or unspecified chronic kidney disease; N18.9 Chronic kidney disease, unspecified; I25.10 Atherosclerotic heart disease of native coronary artery without angina pectoris; F32.9 Major depressive disorder, single episode, unspecified; R62.7 Adult failure to thrive; G40.909 Epilepsy, unspecified, not intractable, without status epilepticus; Z95.5 Presence of coronary angioplasty implant and graft; Z95.1 Presence of aortocoronary bypass graft; E03.9 Hypothyroidism, unspecified; G89.29 Other chronic pain; K29.70 Gastritis, unspecified, without bleeding; E11.22 Type 2 diabetes mellitus with diabetic chronic kidney disease; S82.891A Other fracture of right lower leg, initial encounter for closed fracture; X58.XXXA Exposure to other specified factors, initial encounter; E11.65 Type 2 diabetes mellitus with hyperglycemia; J44.9 Chronic obstructive pulmonary disease, unspecified; Z68.1 Body mass index [BMI] 19.9 or less, adult
CPT/HCPCS: 36415; 71045; 80048; 80053; 80061; 80299; 81003; 82550; 82607; 82746; 82977; 83036; 83735; 83880; 84100; 84443; 84484; 84550; 85007; 85025; 86140; 89050; 93005; 93306; 93925; 94640; 94664; 99285; J2785; J7620

== ENCOUNTER 2018-05-26 23:53 | Inpatient (IN) | payer MEDICAID, MEDICARE ==
[~2018-05-26] VITALS: Ht 185.4 cm; Wt 60.4 kg
[2018-05-27] VITALS (7 sets, daily range): BP systolic 120–165; BP diastolic 64–82
[2018-05-27] MEDS ORDERED: Albuterol/Ipratropium 3ml neb HHN ONE (00:45)
[2018-05-27] MEDS ORDERED: Norco 5mg/325mg tab ORAL ONE (01:00)
[2018-05-27 01:33] LABS: BASOPHILS % (AUTO) 4.3 % (0.0-2.0); EOSINOPHILS % (AUTO) 2.2 % (0.0-3.0); HEMATOCRIT 44.1 % (42.0-52.0); HEMOGLOBIN 13.4 G/DL (14.2-18.0); LYMPHOCYTES % (AUTO) 26.3 % (20.0-45.0); MEAN CORPUSCULAR VOLUME 84 FL (80-99); MONOCYTES % (AUTO) 13.3 % (1.0-10.0); NEUTROPHILS % (AUTO) 53.9 % (45.0-75.0); PLATELET COUNT 285 K/UL (150-450); RED BLOOD COUNT 5.26 M/UL (4.70-6.10); RED CELL DISTRIBUTION WIDTH 16.8 % (11.6-14.8); WHITE BLOOD COUNT 7.4 K/UL (4.8-10.8)
[2018-05-27] MEDS ORDERED: fentaNYL 100 mcg/2 mL IV ONE (01:45)
[2018-05-27 01:48] LABS: ANION GAP 6 mmol/L (5-15); BLOOD UREA NITROGEN 24 mg/dL (7-18); CALCIUM 8.9 MG/DL (8.5-10.1); CARBON DIOXIDE 28 MMOL/L (21-32); CHLORIDE 103 MMOL/L (98-107); CREATININE 1.7 MG/DL (0.55-1.30); SODIUM 137 MMOL/L (136-145)
[2018-05-27 01:56] LABS: INR 0.9 (0.9-1.1)
[2018-05-27 02:02] LABS: ALANINE AMINOTRANSFERASE 18 U/L (12-78); ALBUMIN 3.2 G/DL (3.4-5.0); ALBUMIN/GLOBULIN RATIO 0.8 (1.0-2.7); ALKALINE PHOSPHATASE 126 U/L (46-116); ASPARTATE AMINO TRANSFERASE 17 U/L (15-37); BILIRUBIN,TOTAL 0.1 MG/DL (0.2-1.0); CKMB 0.9 NG/ML (0.0-3.6); CREATINE KINASE 116 U/L (26-308)
--- NOTE | 2018-05-27 06:07 | Emergency Room Report ---
History of Present Illness General Chief Complaint: Chest Pain Source: Patient Present Illness HPI Patient is 67-year-old male who presented after increased right lower extremity pain. He reports having increased leg swelling bilaterally. He reports having some increased chest discomfort as well as difficulty breathing. Patient prior history of COPD as well as congestive heart failure. The patient chronic nonhealing wounds to lower extremities. Allergies: Coded Allergies: EGG (Verified Allergy, Unknown, 09/22/15) MEPERIDINE (Verified Allergy, Unknown, 12/21/10) MORPHINE (Verified Allergy, Unknown, 05/27/18) urinates blood NITROGLYCERIN (Verified Allergy, Unknown, hives, 02/18/17) Patient History Past Medical History: see triage record Reviewed Nursing Documentation: PMH: Agreed; PSxH: Agreed Nursing Documentation-PMH Hx Cardiac Problems: Yes - TX with stents placed, CHF Hx Hypertension: Yes Hx Pacemaker: No Hx Asthma: No Hx COPD: Yes Hx Diabetes: No Hx Cancer: No Hx Gastrointestinal Problems: Yes Hx Dialysis: No - kidney problems Hx Neurological Problems: No Hx Cerebrovascular Accident: No Hx Transient Ischemic Attacks: No Hx Alzheimer's Disease: No Hx Encephalitis: No Hx Seizures: Yes Hx Epilepsy: No Hx Multiple Sclerosis: No Hx Cerebral Palsy: No Hx Amyotrophic Lat Sclerosis: No Hx Guillian-Franklin Syndrome: No Hx Paralysis: No Hx Peripheral Neuropathy: No Hx Spinal Cord Injury: No Hx Head Trauma: No Hx Traumatic Brain Injury: No Hx Memory Loss: No Hx Concentration Difficulty: No Hx Speech Problem: No Hx Tremors: Yes Hx Vertigo: No Hx Dizziness: No Hx Syncope: Yes Hx Headaches: Yes Hx Aphasia: No Hx Dysphasia: Yes Hx Numbness: No Hx Weakness: Yes Hx Fatigue: No Hx Neurologic Surgery: No Hx Brain Shunt: No Review of Systems All Other Systems: negative except mentioned in HPI Physical Exam Vital Signs Date Time Temp Pulse Resp B/P (MAP) Pulse Ox O2 Delivery O2 Flow Rate FiO2 05/27/18 00:01 97.9 106 18 181/82 95 Room Air 97.9 05/27/18 00:52 21 Sp02 EP Interpretation: reviewed, normal General Appearance: alert, GCS 15, thin, Chronically Ill Head: atraumatic ENT: normal ENT inspection, hearing grossly normal, normal voice Neck: normal inspection, supple, no bony tend, limited range of motion Respiratory: accessory muscle use, wheezing Cardiovascular #1: edema Gastrointestinal: normal inspection, normal bowel sounds, non tender, soft, no guarding, no hernia Genitourinary: no CVA tenderness Musculoskeletal: decreased range of motion Neurologic: normal inspection, alert, oriented x3, responsive, speech normal Psychiatric: normal inspection, judgement/insight normal, mood/affect normal Skin: other - ulceration to right lower extremity Medical Decision Making Diagnostic Impression: Primary Impression: Nonhealing ulcer of right lower extremity Additional Impressions: COPD exacerbation Diabetic foot ulcer Emphysema lung ER Course Patient presented for shortness of breath. Differential included but was not limited to anemia, pneumonia, pneumothorax, myocardial infarction, pericardial effusion, congestive heart failure, acidosis. Because of complexity of patient's case laboratory testing and imaging studies were ordered.The patient noted have evidence of COPD on exam. Patient was given IV Lasix for fluid overload. Patient appears to be markedly deconditioned. Laboratory studies showed elevated B type natruretic peptide consistent with congestive heart failure. Dr. Phil Wright was contacted for inpatient management Labs Test 05/27/18 01:10 White Blood Count 7.4 K/UL (4.8-10.8) Red Blood Count 5.26 M/UL (4.70-6.10) Hemoglobin 13.4 G/DL (14.2-18.0) Hematocrit 44.1 % (42.0-52.0) Mean Corpuscular Volume 84 FL (80-99) Mean Corpuscular Hemoglobin 25.5 PG (27.0-31.0) Mean Corpuscular Hemoglobin Concent 30.3 G/DL (32.0-36.0) Red Cell Distribution Width 16.8 % (11.6-14.8) Platelet Count 285 K/UL (150-450) Mean Platelet Volume 6.8 FL (6.5-10.1) Neutrophils (%) (Auto) 53.9 % (45.0-75.0) Lymphocytes (%) (Auto) 26.3 % (20.0-45.0) Monocytes (%) (Auto) 13.3 % (1.0-10.0) Eosinophils (%) (Auto) 2.2 % (0.0-3.0) Basophils (%) (Auto) 4.3 % (0.0-2.0) Prothrombin Time 10.0 SEC (9.30-11.50) Prothromb Time International Ratio 0.9 (0.9-1.1) Activated Partial Thromboplast Time 30 SEC (23-33) Sodium Level 137 MMOL/L (136-145) Potassium Level 5.0 MMOL/L (3.5-5.1) Chloride Level 103 MMOL/L (98-107) Carbon Dioxide Level 28 MMOL/L (21-32) Anion Gap 6 mmol/L (5-15) Blood Urea Nitrogen 24 mg/dL (7-18) Creatinine 1.7 MG/DL (0.55-1.30) Estimat Glomerular Filtration Rate 48.8 mL/min (>60) Glucose Level 90 MG/DL (74-106) Calcium Level 8.9 MG/DL (8.5-10.1) Total Bilirubin 0.1 MG/DL (0.2-1.0) Aspartate Amino Transf (AST/SGOT) 17 U/L (15-37) Alanine Aminotransferase (ALT/SGPT) 18 U/L (12-78) Alkaline Phosphatase 126 U/L (46-116) Total Creatine Kinase 116 U/L (26-308) Creatine Kinase MB 0.9 NG/ML (0.0-3.6) Creatine Kinase MB Relative Index 0.7 Troponin I 0.000 ng/mL (0.000-0.056) Pro-B-Type Natriuretic Peptide 447 pg/mL (0-125) Total Protein 7.4 G/DL (6.4-8.2) Albumin 3.2 G/DL (3.4-5.0) Globulin 4.2 g/dL Albumin/Globulin Ratio 0.8 (1.0-2.7) Last Vital Signs Date Time Temp Pulse Resp B/P (MAP) Pulse Ox O2 Delivery O2 Flow Rate FiO2 05/27/18 05:15 97.8 93 21 141/77 97 Room Air 05/27/18 02:49 97 Status: unchanged Disposition: PLACE IN OBSERVATION Condition: Stable Referrals: Jessie Magana MD (PCP) Patient Instructions: Nonspecific Chest Pain Will Menezes MD May 27, 2018 06:07
[2018-05-27] MEDS ORDERED: Albuterol/Ipratropium 3ml neb INH PRN (07:30)
[2018-05-27] MEDS ORDERED: Docusate 100mg cap ORAL PRN (07:30)
[2018-05-27] MEDS ORDERED: Miralax 17gm pkt ORAL PRN (07:30)
[2018-05-27] MEDS ORDERED: Milk of Magnesia 30ml Ud ORAL PRN (07:30)
[2018-05-27] MEDS ORDERED: Acetaminophen 650 MG SUPP RECTAL PRN ×2 (07:30)
[2018-05-27] MEDS ORDERED: HYDROmorphone 2mg tab ORAL PRN ×2 (07:30)
[2018-05-27] MEDS: Furosemide 40mg tab ORAL SCH (08:32)
[2018-05-27] MEDS: Theophylline ER 100mg ORAL SCH ×2 (08:33→21:16)
[2018-05-27] MEDS: Docusate 100mg cap ORAL SCH ×2 (08:33→21:15)
[2018-05-27] MEDS ORDERED: Hydromorphone 0.5mg/0.5ml inj IVP PRN (11:00)
--- NOTE | 2018-05-27 11:04 | Consultation ---
History of Present Illness General Date patient seen: May 27, 2018 Chief Complaint: Chest Pain Present Illness HPI 67-year-old male with CAD, COPD, CHF, chronic wound, chronic pain, presented to ER with CC of right lower extremity pain. He reports having increased leg swelling bilaterally. He reports having some increased chest discomfort as well as difficulty breathing. The patient chronic nonhealing wounds to lower extremities. Allergies: Coded Allergies: EGG (Verified Allergy, Unknown, 09/22/15) MEPERIDINE (Verified Allergy, Unknown, 12/21/10) NITROGLYCERIN (Verified Allergy, Unknown, hives, 02/18/17) Medication History Scheduled Amlodipine Besylate* (Amlodipine Besylate*), 10 MG ORAL DAILY, (Reported) Clopidogrel Bisulfate* (Plavix*), 75 MG ORAL DAILY, (Reported) Hydromorphone Hcl (Dilaudid), 2 MG PO EVERY 4 HOURS Mirtazapine* (Remeron*), 15 MG ORAL BEDTIME, (Reported) Ranitidine Hcl* (Zantac*), 150 MG ORAL Q12HR Theophylline (Theodur*), 100 MG ORAL EVERY 12 HOURS Scheduled PRN Albuterol Sulfate (Ventolin Hfa), 1 PUFF INH EVERY 6 HOURS PRN Docusate Sodium* (Colace*), 100 MG ORAL DAILY PRN for Constipation, (Reported) Ondansetron Hcl* (Zofran*), 8 MG ORAL Q6H PRN for Nausea & Vomiting, (Reported) Discontinued Medications Levetiracetam (Keppra), 500 MG ORAL EVERY 12 HOURS, (Reported) Discontinued Reason: Pt stopped taking med Patient History Healthcare decision maker Resuscitation status Full Code Advanced Directive on File Past Medical/Surgical History Past Medical/Surgical History: (1) HTN (hypertension) (2) CAD (coronary artery disease) (3) DM (diabetes mellitus) (4) Right hip pain (5) Diabetic foot ulcer Review of Systems All Other Systems: negative except mentioned in HPI Physical Exam General Appearance: cachetic Lines, tubes and drains: peripheral HEENT: normocephalic, atraumatic Neck: non-tender, normal alignment Respiratory/Chest: chest wall non-tender, lungs clear Breasts: no masses Cardiovascular/Chest: normal peripheral pulses Abdomen: normal bowel sounds Genitourinary/Rectal: normal genital exam Extremities: normal range of motion, other - right leg swelling and edeam with clean dressing Skin Exam: normal pigmentation, rash Last 24 Hour Vital Signs Date Time Temp Pulse Resp B/P (MAP) Pulse Ox O2 Delivery O2 Flow Rate FiO2 05/27/18 09:33 97.8 05/27/18 08:34 97.8 05/27/18 08:33 97 120/73 05/27/18 08:00 95 05/27/18 08:00 98.2 97 20 120/73 97 Room Air 97 98.2 05/27/18 05:15 97.8 93 21 141/77 97 Room Air 05/27/18 05:10 98.2 86 15 155/82 97 Room Air 98.2 05/27/18 02:49 97.8 89 15 134/68 97 Room Air 97.8 05/27/18 02:49 89 15 Room Air 97 05/27/18 01:30 100 19 165/73 99 Room Air 05/27/18 01:08 95 20 99 Room Air 21 05/27/18 00:52 97 20 97 Room Air 21 05/27/18 00:01 97.9 106 18 181/82 95 Room Air 97.9 Intake and Output 05/26/18 05/27/18 19:00 07:00 Intake Total 100 ml Output Total 1 ml Balance 99 ml Intake Oral 100 ml Output Urine Total 1 ml # Voids 1 Laboratory Tests Test 05/27/18 01:10 White Blood Count 7.4 K/UL (4.8-10.8) Red Blood Count 5.26 M/UL (4.70-6.10) Hemoglobin 13.4 G/DL (14.2-18.0) L Hematocrit 44.1 % (42.0-52.0) Mean Corpuscular Volume 84 FL (80-99) Mean Corpuscular Hemoglobin 25.5 PG (27.0-31.0) L Mean Corpuscular Hemoglobin Concent 30.3 G/DL (32.0-36.0) L Red Cell Distribution Width 16.8 % (11.6-14.8) H Platelet Count 285 K/UL (150-450) Mean Platelet Volume 6.8 FL (6.5-10.1) Neutrophils (%) (Auto) 53.9 % (45.0-75.0) Lymphocytes (%) (Auto) 26.3 % (20.0-45.0) Monocytes (%) (Auto) 13.3 % (1.0-10.0) H Eosinophils (%) (Auto) 2.2 % (0.0-3.0) Basophils (%) (Auto) 4.3 % (0.0-2.0) H Prothrombin Time 10.0 SEC (9.30-11.50) Prothromb Time International Ratio 0.9 (0.9-1.1) Activated Partial Thromboplast Time 30 SEC (23-33) Sodium Level 137 MMOL/L (136-145) Potassium Level 5.0 MMOL/L (3.5-5.1) Chloride Level 103 MMOL/L (98-107) Carbon Dioxide Level 28 MMOL/L (21-32) Anion Gap 6 mmol/L (5-15) Blood Urea Nitrogen 24 mg/dL (7-18) H Creatinine 1.7 MG/DL (0.55-1.30) H Estimat Glomerular Filtration Rate 48.8 mL/min (>60) Glucose Level 90 MG/DL (74-106) Calcium Level 8.9 MG/DL (8.5-10.1) Total Bilirubin 0.1 MG/DL (0.2-1.0) L Aspartate Amino Transf (AST/SGOT) 17 U/L (15-37) Alanine Aminotransferase (ALT/SGPT) 18 U/L (12-78) Alkaline Phosphatase 126 U/L (46-116) H Total Creatine Kinase 116 U/L (26-308) Creatine Kinase MB 0.9 NG/ML (0.0-3.6) Creatine Kinase MB Relative Index 0.7 Troponin I 0.000 ng/mL (0.000-0.056) Pro-B-Type Natriuretic Peptide 447 pg/mL (0-125) H Total Protein 7.4 G/DL (6.4-8.2) Albumin 3.2 G/DL (3.4-5.0) L Globulin 4.2 g/dL Albumin/Globulin Ratio 0.8 (1.0-2.7) L Height (Feet): 6 Height (Inches): 1.00 Weight (Pounds): 133 Medications Current Medications Medications (Trade) Dose Ordered Sig/Aminata Route PRN Reason Start Time Stop Time Status Last Admin Dose Admin Acetaminophen (Tylenol) 650 mg Q4H PRN ORAL Mild Pain (Pain Scale 1-3) 05/27/18 07:30 06/26/18 07:29 Acetaminophen (Tylenol) 650 mg Q4H PRN ORAL fever 05/27/18 07:30 06/26/18 07:29 Acetaminophen (Tylenol) 650 mg Q4H PRN RECTAL Mild Pain (Pain Scale 1-3) 05/27/18 07:30 06/26/18 07:29 Acetaminophen (Tylenol) 650 mg Q4H PRN RECTAL fever 05/27/18 07:30 06/26/18 07:29 Albuterol/ Ipratropium (Albuterol/ Ipratropium) 3 ml Q4H PRN INH Shortness of Breath 05/27/18 07:30 06/01/18 07:29 Albuterol/ Ipratropium (Albuterol/ Ipratropium) 3 ml Q8HRT INH 05/27/18 15:00 06/01/18 14:59 Amlodipine Besylate (Norvasc) 10 mg DAILY ORAL 05/27/18 09:00 06/26/18 08:59 05/27/18 08:33 Bisacodyl (Dulcolax) 10 mg DAILYPRN PRN RECTAL Constipation 05/27/18 07:30 06/26/18 07:29 Clopidogrel Bisulfate (Plavix) 75 mg DAILY ORAL 05/27/18 09:00 06/26/18 08:59 05/27/18 08:32 Dextrose (Dextrose 50%) 25 ml STAT PRN IV Hypoglycemia 05/27/18 07:30 06/26/18 07:29 Dextrose (Dextrose 50%) 50 ml STAT PRN IV Hypoglycemia 05/27/18 07:30 06/26/18 07:29 Docusate Sodium (Colace) 100 mg EVERY 12 HOURS ORAL 05/27/18 09:00 06/26/18 08:59 05/27/18 08:33 Furosemide (Lasix) 40 mg DAILY ORAL 05/27/18 09:00 06/26/18 08:59 05/27/18 08:32 Heparin Sodium (Porcine) (Heparin 5000 units/ml) 5,000 units EVERY 8 HOURS SUBQ 05/27/18 14:00 06/26/18 13:59 Insulin Aspart (NovoLOG) BEFORE MEALS AND HS SUBQ 05/27/18 11:30 06/26/18 11:29 Magnesium Hydroxide (Mom) 30 ml HSPRN PRN ORAL Constipation 05/27/18 07:30 06/26/18 07:29 Ondansetron HCl (Zofran) 4 mg Q6H PRN IVP Nausea & Vomiting 05/27/18 07:30 06/26/18 07:29 Polyethylene Glycol (Miralax) 17 gm DAILYPRN PRN ORAL Constipation 05/27/18 07:30 06/26/18 07:29 Theophylline (Wilfrido-Dur) 100 mg EVERY 12 HOURS ORAL 05/27/18 09:00 06/26/18 08:59 05/27/18 08:33 Assessment/Plan Problem List: (1) COPD exacerbation ICD Codes: J44.1 - Obstructive chronic bronchitis with exacerbation SNOMED: 615671991 (2) Nonhealing ulcer of right lower extremity ICD Codes: L97.919 - Non-pressure chronic ulcer of unspecified part of right lower leg with unspecified severity SNOMED: 55495164 (3) Diabetic foot ulcer ICD Codes: E11.621 - Type 2 diabetes mellitus with foot ulcer; L97.509 - Non- pressure chronic ulcer of other part of unspecified foot with unspecified severity SNOMED: 15083898, 900879034 (4) CAD (coronary artery disease) ICD Codes: I25.10 - Atherosclerosis of coronary artery SNOMED: 501372266 (5) DM (diabetes mellitus) ICD Codes: E11.9 - Diabetes mellitus SNOMED: 35913076 (6) HTN (hypertension) ICD Codes: I10 - Hypertension SNOMED: 38477824 Assessment/Plan respiratory treatment check sputum titrate fio2 to sat of 92% rule out DVt surgical evaluation abx as per Jessie Resendiz MD May 27, 2018 11:04
[2018-05-27] MEDS ORDERED: Morphine Sulfate 2mg/ml Inj(IV/IM USE ONLY) IVP PRN ×2 (11:15→15:15)
--- NOTE | 2018-05-27 11:18 | History & Physical ---
History and Physical History & Physicial Dictated for Int Med-Dr Wright no. [id number]. Shantanu Reyna MD May 27, 2018 11:18
[2018-05-27] MEDS ORDERED: NovoLOG Insulin Flexpen SUBQ SCH (11:30)
[2018-05-27] MEDS: Morphine Sulfate 4mg/ml Inj (IV USE ONLY) IVP PRN ×3 (12:38→21:16)
--- NOTE | 2018-05-27 13:34 | Consultation ---
History of Present Illness General Date patient seen: May 27, 2018 Chief Complaint: Chest Pain Reason for Consultation: non healing right lower extremity wound Present Illness HPI 67 year old male with multiple medical comorbidities and chronic tobacco use presents with lower extremity pain. patient has history of chronic slowly healing right lateral lower extremity ulcer. states it has been slowly healing but healing. has had wound for over 2 years and receives care by wound team at facility where he resides. states pain has been worsening recently with increasing edema and some drainage. surgery called to evaluate and assist with wound management. patient seen, chart reviewed, patient examined. Allergies: Coded Allergies: EGG (Verified Allergy, Unknown, 09/22/15) MEPERIDINE (Verified Allergy, Unknown, 12/21/10) NITROGLYCERIN (Verified Allergy, Unknown, hives, 02/18/17) Medication History Scheduled Amlodipine Besylate* (Amlodipine Besylate*), 10 MG ORAL DAILY, (Reported) Clopidogrel Bisulfate* (Plavix*), 75 MG ORAL DAILY, (Reported) Hydromorphone Hcl (Dilaudid), 2 MG PO EVERY 4 HOURS Mirtazapine* (Remeron*), 15 MG ORAL BEDTIME, (Reported) Ranitidine Hcl* (Zantac*), 150 MG ORAL Q12HR Theophylline (Theodur*), 100 MG ORAL EVERY 12 HOURS Scheduled PRN Albuterol Sulfate (Ventolin Hfa), 1 PUFF INH EVERY 6 HOURS PRN Docusate Sodium* (Colace*), 100 MG ORAL DAILY PRN for Constipation, (Reported) Ondansetron Hcl* (Zofran*), 8 MG ORAL Q6H PRN for Nausea & Vomiting, (Reported) Discontinued Medications Levetiracetam (Keppra), 500 MG ORAL EVERY 12 HOURS, (Reported) Discontinued Reason: Pt stopped taking med Patient History History Provided By: Patient, Medical Record, PMD Healthcare decision maker Resuscitation status Full Code Advanced Directive on File Past Medical/Surgical History Past Medical/Surgical History: (1) Cellulitis of right leg (2) Chronic ulcer of right leg (3) Hypothyroidism (4) Severe malnutrition (5) HTN (hypertension) (6) Chronic pain (7) ACS (acute coronary syndrome) (8) Cellulitis of right ankle (9) Ulcer of right lower leg (10) Edema (11) CHF (congestive heart failure) (12) Seizure disorder (13) Cellulitis, leg (14) Diabetes mellitus type II, uncontrolled (15) Renal failure (16) Esophagitis (17) Odynophagia (18) Dehydration (19) Hyperkalemia (20) Shingles (21) SOB (shortness of breath) (22) Gastritis (23) Gastroenteritis (24) Syncope (25) Acute bronchitis (26) Cardiac dysrhythmia (27) ATN (acute tubular necrosis) (28) Bronchitis (29) Pneumonia (30) Vikki esophagitis (31) Atypical chest pain (32) ACS (acute coronary syndrome) (33) ACS (acute coronary syndrome) (34) ACS (acute coronary syndrome) (35) ACS (acute coronary syndrome) (36) ACS (acute coronary syndrome) (37) ACS (acute coronary syndrome) (38) ACS (acute coronary syndrome) (39) COPD exacerbation (40) COPD exacerbation (41) COPD exacerbation (42) COPD exacerbation (43) FTT (failure to thrive) in adult (44) History of heart attack (45) Hip dislocation, right (46) Osteomyelitis of right leg (47) Swelling of ankle joint, right (48) Injury of lower extremity (49) Intractable back pain (50) Chest pain with minimal risk of acute coronary syndrome (51) Closed fracture of tibia and fibula with malunion (52) Pain of right lower extremity (53) Osteomyelitis of right lower extremity (54) Chest pain (55) Acute on chronic renal failure (56) Chest pain (57) Emphysema lung (58) CAD (coronary artery disease) (59) HTN (hypertension) (60) DM (diabetes mellitus) (61) Diabetic foot ulcer (62) Right hip pain (63) COPD exacerbation (64) Nonhealing ulcer of right lower extremity Review of Systems All Other Systems: negative except mentioned in HPI Physical Exam General Appearance: no apparent distress Lines, tubes and drains: peripheral HEENT: mucous membranes moist Neck: normal inspection Respiratory/Chest: normal breath sounds, no respiratory distress, no accessory muscle use Cardiovascular/Chest: normal rate Abdomen: non tender, soft, no organomegaly, no mass Extremities: trace edema, other - right lateral malleolus ulcer slowly healing. small open area and can see remnent of prior larger wound. palpable but poor peripheral pulses. dry skin Skin Exam: normal pigmentation, warm/dry Neurologic: alert, oriented x 3 Last 24 Hour Vital Signs Date Time Temp Pulse Resp B/P (MAP) Pulse Ox O2 Delivery O2 Flow Rate FiO2 05/27/18 12:38 97.8 05/27/18 09:33 97.8 05/27/18 08:34 97.8 05/27/18 08:33 97 120/73 05/27/18 08:00 95 05/27/18 08:00 98.2 97 20 120/73 97 Room Air 97 98.2 05/27/18 05:15 97.8 93 21 141/77 97 Room Air 05/27/18 05:10 98.2 86 15 155/82 97 Room Air 98.2 05/27/18 02:49 97.8 89 15 134/68 97 Room Air 97.8 05/27/18 02:49 89 15 Room Air 97 05/27/18 01:30 100 19 165/73 99 Room Air 05/27/18 01:08 95 20 99 Room Air 21 05/27/18 00:52 97 20 97 Room Air 21 05/27/18 00:01 97.9 106 18 181/82 95 Room Air 97.9 Intake and Output 05/26/18 05/27/18 19:00 07:00 Intake Total 100 ml Output Total 1 ml Balance 99 ml Intake Oral 100 ml Output Urine Total 1 ml # Voids 1 Laboratory Tests Test 05/27/18 01:10 White Blood Count 7.4 K/UL (4.8-10.8) Red Blood Count 5.26 M/UL (4.70-6.10) Hemoglobin 13.4 G/DL (14.2-18.0) L Hematocrit 44.1 % (42.0-52.0) Mean Corpuscular Volume 84 FL (80-99) Mean Corpuscular Hemoglobin 25.5 PG (27.0-31.0) L Mean Corpuscular Hemoglobin Concent 30.3 G/DL (32.0-36.0) L Red Cell Distribution Width 16.8 % (11.6-14.8) H Platelet Count 285 K/UL (150-450) Mean Platelet Volume 6.8 FL (6.5-10.1) Neutrophils (%) (Auto) 53.9 % (45.0-75.0) Lymphocytes (%) (Auto) 26.3 % (20.0-45.0) Monocytes (%) (Auto) 13.3 % (1.0-10.0) H Eosinophils (%) (Auto) 2.2 % (0.0-3.0) Basophils (%) (Auto) 4.3 % (0.0-2.0) H Prothrombin Time 10.0 SEC (9.30-11.50) Prothromb Time International Ratio 0.9 (0.9-1.1) Activated Partial Thromboplast Time 30 SEC (23-33) Sodium Level 137 MMOL/L (136-145) Potassium Level 5.0 MMOL/L (3.5-5.1) Chloride Level 103 MMOL/L (98-107) Carbon Dioxide Level 28 MMOL/L (21-32) Anion Gap 6 mmol/L (5-15) Blood Urea Nitrogen 24 mg/dL (7-18) H Creatinine 1.7 MG/DL (0.55-1.30) H Estimat Glomerular Filtration Rate 48.8 mL/min (>60) Glucose Level 90 MG/DL (74-106) Calcium Level 8.9 MG/DL (8.5-10.1) Total Bilirubin 0.1 MG/DL (0.2-1.0) L Aspartate Amino Transf (AST/SGOT) 17 U/L (15-37) Alanine Aminotransferase (ALT/SGPT) 18 U/L (12-78) Alkaline Phosphatase 126 U/L (46-116) H Total Creatine Kinase 116 U/L (26-308) Creatine Kinase MB 0.9 NG/ML (0.0-3.6) Creatine Kinase MB Relative Index 0.7 Troponin I 0.000 ng/mL (0.000-0.056) Pro-B-Type Natriuretic Peptide 447 pg/mL (0-125) H Total Protein 7.4 G/DL (6.4-8.2) Albumin 3.2 G/DL (3.4-5.0) L Globulin 4.2 g/dL Albumin/Globulin Ratio 0.8 (1.0-2.7) L Height (Feet): 6 Height (Inches): 1.00 Weight (Pounds): 133 Medications Current Medications Medications (Trade) Dose Ordered Sig/Aminata Route PRN Reason Start Time Stop Time Status Last Admin Dose Admin Acetaminophen (Tylenol) 650 mg Q4H PRN ORAL Mild Pain (Pain Scale 1-3) 05/27/18 07:30 06/26/18 07:29 Acetaminophen (Tylenol) 650 mg Q4H PRN ORAL fever 05/27/18 07:30 06/26/18 07:29 Acetaminophen (Tylenol) 650 mg Q4H PRN RECTAL Mild Pain (Pain Scale 1-3) 05/27/18 07:30 06/26/18 07:29 Acetaminophen (Tylenol) 650 mg Q4H PRN RECTAL fever 05/27/18 07:30 06/26/18 07:29 Albuterol/ Ipratropium (Albuterol/ Ipratropium) 3 ml Q4H PRN INH Shortness of Breath 05/27/18 07:30 06/01/18 07:29 Albuterol/ Ipratropium (Albuterol/ Ipratropium) 3 ml Q8HRT INH 05/27/18 15:00 06/01/18 14:59 Amlodipine Besylate (Norvasc) 10 mg DAILY ORAL 05/27/18 09:00 06/26/18 08:59 05/27/18 08:33 Bisacodyl (Dulcolax) 10 mg DAILYPRN PRN RECTAL Constipation 05/27/18 07:30 06/26/18 07:29 Clopidogrel Bisulfate (Plavix) 75 mg DAILY ORAL 05/27/18 09:00 06/26/18 08:59 05/27/18 08:32 Dextrose (Dextrose 50%) 25 ml STAT PRN IV Hypoglycemia 05/27/18 07:30 06/26/18 07:29 Dextrose (Dextrose 50%) 50 ml STAT PRN IV Hypoglycemia 05/27/18 07:30 06/26/18 07:29 Docusate Sodium (Colace) 100 mg EVERY 12 HOURS ORAL 05/27/18 09:00 06/26/18 08:59 05/27/18 08:33 Furosemide (Lasix) 40 mg DAILY ORAL 05/27/18 09:00 06/26/18 08:59 05/27/18 08:32 Heparin Sodium (Porcine) (Heparin 5000 units/ml) 5,000 units EVERY 8 HOURS SUBQ 05/27/18 14:00 06/26/18 13:59 Magnesium Hydroxide (Mom) 30 ml HSPRN PRN ORAL Constipation 7/4/18 07:30 06/26/18 07:29 Morphine Sulfate (Morphine Sulfate) 4 mg Q4H PRN IVP For Pain 05/27/18 11:30 06/03/18 11:29 05/27/18 12:38 Ondansetron HCl (Zofran) 4 mg Q6H PRN IVP Nausea & Vomiting 05/27/18 07:30 06/26/18 07:29 Polyethylene Glycol (Miralax) 17 gm DAILYPRN PRN ORAL Constipation 05/27/18 07:30 06/26/18 07:29 Theophylline (Wilfrido-Dur) 100 mg EVERY 12 HOURS ORAL 05/27/18 09:00 06/26/18 08:59 05/27/18 08:33 Assessment/Plan Problem List: (1) Nonhealing ulcer of right lower extremity Assessment & Plan: 67 M with slowly healing right lateral ankle wound. states >2 years but healing. can see area of larger wound that has been slowly healing. some mild cellulitis. mild trace edema. proximally dry. -venous duplex / arterial duplex studies -honey gel and foam dressing over ulcer -skin protectant and lotion -keep pressure off wound -okay to shower -will monitor while in hospital. thank you for this consultation. ICD Codes: L97.919 - Non-pressure chronic ulcer of unspecified part of right lower leg with unspecified severity SNOMED: 65074444 Status: stable Ugo Simms May 27, 2018 13:34
[2018-05-27] MEDS: Heparin 5000 units/ml inj SUBQ SCH ×2 (14:27→21:18)
[2018-05-27] MEDS: Albuterol/Ipratropium 3ml neb INH SCH ×2 (15:27→23:26)
--- NOTE | 2018-05-27 16:30 | History and Physical Report ---
DATE OF ADMISSION: 05/27/2018 NOTE: INCOMPLETE DICTATION CHIEF COMPLAINT: The patient is a 67-year-old male, presents with chief complaint of chest pain and bilateral leg swelling. HISTORY OF PRESENT ILLNESS: The patient was admitted to [facility] on 05/12/2018 . Please see history and physical and discharge summary dictated at that time. The patient presents to [facility] emergency room stating 1-week history of right chest pain. Pain is constant. There is no radiation to the left arm or to the jaw. The patient states the pain is relatively constant. The patient also complains of bilateral leg swelling. The patient presents today with chief complaint of chest pain and bilateral leg swelling. REVIEW OF SYSTEMS: CONSTITUTIONAL: The patient denies weight loss or weight gain. The patient denies fevers or chills. HEENT: The patient denies ear or throat pain. The patient denies headache. CARDIOVASCULAR: The patient complains of chest pain as above. The patient denies palpitations. ABDOMEN: The patient denies nausea, vomiting, diarrhea, or constipation. GENITOURINARY: The patient denies dysuria or increased frequency urination. NEUROMUSCULAR: The patient denies seizures or generalized weakness. PAST MEDICAL HISTORY: Significant for 1. Hypertension. 2. History of coronary artery disease. 3. History of myocardial infarction x2. 4. Chronic obstructive pulmonary disease. PAST SURGICAL HISTORY: Significant for 1. Cardiac angioplasty in 2017 with 2 stents placed. 2. Coronary artery bypass graft, 6 or 7 years ago. CURRENT MEDICATIONS: 1. Albuterol metered-dose inhaler two puffs p.o. q.i.d. p.r.n. 2. Amlodipine 10 mg p.o. daily. 3. Plavix 75 mg p.o. daily. 4. Dilaudid 2 mg p.o. q.4 h. p.r.n. 5. Remeron 15 mg p.o. at bedtime. 6. Zantac 150 mg p.o. at bedtime. 7. Theophylline 100 mg p.o. twice daily. ALLERGIES: To meperidine, nitroglycerin and eggs. SOCIAL HISTORY: The patient is , however, lives with his ex-. The patient admits to tobacco use to one pack per day. The patient denies alcohol use. Shantanu Reyna M.D. DR: FRANCISCO J JOB#: [id number] CC: DAX
--- NOTE | 2018-05-27 16:45 | History and Physical Report ---
DATE OF ADMISSION: 05/27/2018 CHIEF COMPLAINT: The patient is a 67-year-old male who presents with chief complaint of chest pain and bilateral leg swelling. HISTORY OF PRESENT ILLNESS: The patient was admitted to [facility] from May 12, 2018 to May 19, 2018. Please see history and physical and discharge summary dictated at that time. The patient states history of present illness began on May 13, 2018. The patient began to experience chest pain. Chest pain is constant. is actually right-sided. There is no radiation to the left chest or to the left jaw or shoulder. The patient also complains of bilateral leg swelling. The patient presented to [facility] emergency room. The patient admitted for chest pain to rule out acute coronary syndrome. REVIEW OF SYSTEMS: CONSTITUTIONAL: The patient denies weight loss or weight gain. The patient denies fevers or chills. HEENT: The patient denies ear or throat pain. The patient denies headache. CARDIOVASCULAR: The patient complains of chest pain as above. The patient denies palpitations. CHEST: The patient denies wheezes or shortness of breath. ABDOMINAL: The patient denies nausea, vomiting, diarrhea, or constipation. GENITOURINARY: The patient denies dysuria or increased frequency of urination. NEUROMUSCULAR: The patient denies seizures or generalized weakness. PAST MEDICAL HISTORY: Significant for: 1. Hypertension. 2. Coronary artery disease. 3. History of myocardial infarction x2. 4. Chronic obstructive pulmonary disease. PAST SURGICAL HISTORY: Significant for: 1. Coronary angioplasty with stent placement x2 in June of 2017. 2. Coronary artery bypass graft in 2010. CURRENT MEDICATIONS: 1. Albuterol metered-dose inhaler two puffs p.o. q.i.d. p.r.n. 2. Amlodipine 10 mg p.o. daily. 3. Plavix 75 mg p.o. daily. 4. Dilaudid 2 mg p.o. q.4 hours p.r.n. 5. Remeron 15 mg p.o. at bedtime. 6. Zofran 8 mg p.o. q.6 hours p.r.n. 7. Zantac 150 mg p.o. twice daily. 8. Theophylline 100 mg p.o. twice daily. ALLERGIES: 1. Demerol. 2. Nitroglycerin. 3. Eggs. SOCIAL HISTORY: The patient is , however continues lives with his ex-. The patient admits to tobacco use one pack per day. The patient denies alcohol use. PHYSICAL EXAMINATION: VITAL SIGNS: Temperature 97.8, respirations 21, pulse 93, blood pressure 141/77. GENERAL: The patient is thin-appearing male, no apparent distress. HEENT: Eyes, pupils are equal and responsive to light and accommodation. Extraocular movements are intact. NECK: Supple. No lymphadenopathy. CHEST: Lungs are clear to auscultation bilaterally without wheezes or rales. CARDIOVASCULAR: Regular rate. S1 and S2 are normal without murmurs, rubs, or gallops. ABDOMEN: Soft, nontender, and nondistended. Positive bowel sounds. No evidence of hepatosplenomegaly. Currently, no rebound or guarding noted. EXTREMITIES: Negative for clubbing, cyanosis. There is 2+ edema in bilateral ankles. NEUROLOGIC: Cranial nerves II through XII are grossly intact without focal deficits. Motor strength is 5/5 bilaterally. Deep tendon reflexes are 2+ plantar. LABORATORY AND DIAGNOSTIC DATA: WBC 7.4, hemoglobin 13.4, hematocrit 44.1, platelets 285,000. Sodium 137, potassium 5.0, chloride 103, CO2 28, BUN 24, creatinine 1.7, glucose 90. Troponin 0.0. BNP 447. Chest x-ray is pending. ASSESSMENT: This is a 67-year-old male. 1. Chest pain. 2. Edema of bilateral lower extremities. 3. History of coronary artery disease. 4. Hypertension. 5. Gastroesophageal reflux disease. 6. History of coronary artery disease. 7. Chronic obstructive pulmonary disease. TREATMENT: 1. Chest pain/history of coronary artery disease. A Cardiology consultation has been obtained with . Initial troponin level was negative. The patient may require a Cardiolite stress test during this hospitalization as the patient has a history of coronary artery disease. 2. Edema of bilateral lower extremities. The patient is currently on Lasix. 3. Hypertension. Continue amlodipine as above. 4. Gastroesophageal reflux disease. Continue Zantac as above. 5. Chronic obstructive pulmonary disease. A Pulmonary consultation has been obtained with Dr. Jessie Magana. Shantanu Reyna M.D. DR: Edward JOB#: [id number] CC:
--- NOTE | 2018-05-27 23:56 | Consultation ---
History of Present Illness General Date patient seen: May 27, 2018 Chief Complaint: Chest Pain Reason for Consultation: non healing right lower extremity wound Present Illness HPI 67 year old male with multiple medical comorbidities and mdd presents with lower extremity pain. the pt was irritable. he has low energy and is depressed Allergies: Coded Allergies: EGG (Verified Allergy, Unknown, 09/22/15) MEPERIDINE (Verified Allergy, Unknown, 12/21/10) NITROGLYCERIN (Verified Allergy, Unknown, hives, 02/18/17) Medication History Scheduled Amlodipine Besylate* (Amlodipine Besylate*), 10 MG ORAL DAILY, (Reported) Clopidogrel Bisulfate* (Plavix*), 75 MG ORAL DAILY, (Reported) Hydromorphone Hcl (Dilaudid), 2 MG PO EVERY 4 HOURS Mirtazapine* (Remeron*), 15 MG ORAL BEDTIME, (Reported) Ranitidine Hcl* (Zantac*), 150 MG ORAL Q12HR Theophylline (Theodur*), 100 MG ORAL EVERY 12 HOURS Scheduled PRN Albuterol Sulfate (Ventolin Hfa), 1 PUFF INH EVERY 6 HOURS PRN Docusate Sodium* (Colace*), 100 MG ORAL DAILY PRN for Constipation, (Reported) Ondansetron Hcl* (Zofran*), 8 MG ORAL Q6H PRN for Nausea & Vomiting, (Reported) Discontinued Medications Levetiracetam (Keppra), 500 MG ORAL EVERY 12 HOURS, (Reported) Discontinued Reason: Pt stopped taking med Patient History Healthcare decision maker Resuscitation status Full Code Advanced Directive on File Review of Systems Psychiatric: Reports: prior hx, anxiety, depressed feelings Physical Exam General Appearance: no apparent distress, alert Neurologic: oriented x 3, responsive, depressed affect Last 24 Hour Vital Signs Date Time Temp Pulse Resp B/P (MAP) Pulse Ox O2 Delivery O2 Flow Rate FiO2 05/27/18 23:32 90 20 98 Room Air 21 05/27/18 23:31 86 20 96 Room Air 21 05/27/18 17:13 97.1 05/27/18 16:52 97.1 92 20 150/64 99 Room Air 21 97.1 05/27/18 16:43 97.8 05/27/18 16:00 106 05/27/18 15:33 97 20 99 Room Air 21 05/27/18 15:22 92 20 95 Room Air 21 05/27/18 12:38 97.8 05/27/18 12:00 97.8 96 20 145/71 97 Room Air 97 97.8 05/27/18 12:00 99 05/27/18 09:33 97.8 05/27/18 08:34 97.8 05/27/18 08:33 97 120/73 05/27/18 08:00 95 05/27/18 08:00 98.2 97 20 120/73 97 Room Air 97 98.2 05/27/18 05:15 97.8 93 21 141/77 97 Room Air 05/27/18 05:10 98.2 86 15 155/82 97 Room Air 98.2 05/27/18 02:49 97.8 89 15 134/68 97 Room Air 97.8 05/27/18 02:49 89 15 Room Air 97 05/27/18 01:30 100 19 165/73 99 Room Air 05/27/18 01:08 95 20 99 Room Air 21 05/27/18 00:52 97 20 97 Room Air 05/27/18 00:01 97.9 106 18 181/82 95 Room Air 97.9 Intake and Output 05/26/18 05/27/18 19:00 07:00 Intake Total 100 ml Output Total 1 ml Balance 99 ml Intake Oral 100 ml Output Urine Total 1 ml # Voids 1 Laboratory Tests Test 05/27/18 01:10 White Blood Count 7.4 K/UL (4.8-10.8) Red Blood Count 5.26 M/UL (4.70-6.10) Hemoglobin 13.4 G/DL (14.2-18.0) L Hematocrit 44.1 % (42.0-52.0) Mean Corpuscular Volume 84 FL (80-99) Mean Corpuscular Hemoglobin 25.5 PG (27.0-31.0) L Mean Corpuscular Hemoglobin Concent 30.3 G/DL (32.0-36.0) L Red Cell Distribution Width 16.8 % (11.6-14.8) H Platelet Count 285 K/UL (150-450) Mean Platelet Volume 6.8 FL (6.5-10.1) Neutrophils (%) (Auto) 53.9 % (45.0-75.0) Lymphocytes (%) (Auto) 26.3 % (20.0-45.0) Monocytes (%) (Auto) 13.3 % (1.0-10.0) H Eosinophils (%) (Auto) 2.2 % (0.0-3.0) Basophils (%) (Auto) 4.3 % (0.0-2.0) H Prothrombin Time 10.0 SEC (9.30-11.50) Prothromb Time International Ratio 0.9 (0.9-1.1) Activated Partial Thromboplast Time 30 SEC (23-33) Sodium Level 137 MMOL/L (136-145) Potassium Level 5.0 MMOL/L (3.5-5.1) Chloride Level 103 MMOL/L (98-107) Carbon Dioxide Level 28 MMOL/L (21-32) Anion Gap 6 mmol/L (5-15) Blood Urea Nitrogen 24 mg/dL (7-18) H Creatinine 1.7 MG/DL (0.55-1.30) H Estimat Glomerular Filtration Rate 48.8 mL/min (>60) Glucose Level 90 MG/DL (74-106) Calcium Level 8.9 MG/DL (8.5-10.1) Total Bilirubin 0.1 MG/DL (0.2-1.0) L Aspartate Amino Transf (AST/SGOT) 17 U/L (15-37) Alanine Aminotransferase (ALT/SGPT) 18 U/L (12-78) Alkaline Phosphatase 126 U/L (46-116) H Total Creatine Kinase 116 U/L (26-308) Creatine Kinase MB 0.9 NG/ML (0.0-3.6) Creatine Kinase MB Relative Index 0.7 Troponin I 0.000 ng/mL (0.000-0.056) Pro-B-Type Natriuretic Peptide 447 pg/mL (0-125) H Total Protein 7.4 G/DL (6.4-8.2) Albumin 3.2 G/DL (3.4-5.0) L Globulin 4.2 g/dL Albumin/Globulin Ratio 0.8 (1.0-2.7) L Height (Feet): 6 Height (Inches): 1.00 Weight (Pounds): 133 Medications Current Medications Medications (Trade) Dose Ordered Sig/Aminata Route PRN Reason Start Time Stop Time Status Last Admin Dose Admin Acetaminophen (Tylenol) 650 mg Q4H PRN ORAL Mild Pain (Pain Scale 1-3) 05/27/18 07:30 06/26/18 07:29 Acetaminophen (Tylenol) 650 mg Q4H PRN ORAL fever 05/27/18 07:30 06/26/18 07:29 Acetaminophen (Tylenol) 650 mg Q4H PRN RECTAL Mild Pain (Pain Scale 1-3) 05/27/18 07:30 06/26/18 07:29 Acetaminophen (Tylenol) 650 mg Q4H PRN RECTAL fever 05/27/18 07:30 06/26/18 07:29 Albuterol/ Ipratropium (Albuterol/ Ipratropium) 3 ml Q4H PRN INH Shortness of Breath 05/27/18 07:30 06/01/18 07:29 Albuterol/ Ipratropium (Albuterol/ Ipratropium) 3 ml Q8HRT INH 05/27/18 15:00 06/01/18 14:59 05/27/18 23:26 Amlodipine Besylate (Norvasc) 10 mg DAILY ORAL 05/27/18 09:00 06/26/18 08:59 05/27/18 08:33 Bisacodyl (Dulcolax) 10 mg DAILYPRN PRN RECTAL Constipation 05/27/18 07:30 06/26/18 07:29 Clopidogrel Bisulfate (Plavix) 75 mg DAILY ORAL 05/27/18 09:00 06/26/18 08:59 05/27/18 08:32 Dextrose (Dextrose 50%) 25 ml STAT PRN IV Hypoglycemia 05/27/18 07:30 06/26/18 07:29 Dextrose (Dextrose 50%) 50 ml STAT PRN IV Hypoglycemia 05/27/18 07:30 06/26/18 07:29 Docusate Sodium (Colace) 100 mg EVERY 12 HOURS ORAL 05/27/18 09:00 06/26/18 08:59 05/27/18 21:15 Furosemide (Lasix) 40 mg DAILY ORAL 05/27/18 09:00 06/26/18 08:59 05/27/18 08:32 Heparin Sodium (Porcine) (Heparin 5000 units/ml) 5,000 units EVERY 8 HOURS SUBQ 05/27/18 14:00 06/26/18 13:59 05/27/18 21:18 Magnesium Hydroxide (Mom) 30 ml HSPRN PRN ORAL Constipation 05/27/18 07:30 06/26/18 07:29 Morphine Sulfate (Morphine Sulfate) 4 mg Q4H PRN IVP For Pain 05/27/18 11:30 06/03/18 11:29 05/27/18 21:16 Ondansetron HCl (Zofran) 4 mg Q6H PRN IVP Nausea & Vomiting 05/27/18 07:30 06/26/18 07:29 Polyethylene Glycol (Miralax) 17 gm DAILYPRN PRN ORAL Constipation 05/27/18 07:30 06/26/18 07:29 Theophylline (Wilfrido-Dur) 100 mg EVERY 12 HOURS ORAL 05/27/18 09:00 06/26/18 08:59 05/27/18 21:16 Assessment/Plan Status: stable, progressing Assessment/Plan mdd anxiety insomnia -remeron 15mg qhs ptovided ro/Rachael Huynh MD May 27, 2018 23:56
[2018-05-28] VITALS: BP 130/67
[2018-05-28] MEDS: Morphine Sulfate 4mg/ml Inj (IV USE ONLY) IVP PRN ×6 (01:32→21:14)
[2018-05-28 04:00] VITALS: BP 140/71
[2018-05-28] MEDS: Heparin 5000 units/ml inj SUBQ SCH ×3 (05:41→21:17)
[2018-05-28 06:31] LABS: BASOPHILS % (AUTO) 2.7 % (0.0-2.0); EOSINOPHILS % (AUTO) 3.8 % (0.0-3.0); HEMATOCRIT 39.6 % (42.0-52.0); HEMOGLOBIN 12.6 G/DL (14.2-18.0); LYMPHOCYTES % (AUTO) 44.3 % (20.0-45.0); MEAN CORPUSCULAR VOLUME 83 FL (80-99); MONOCYTES % (AUTO) 13.7 % (1.0-10.0); NEUTROPHILS % (AUTO) 35.4 % (45.0-75.0); PLATELET COUNT 273 K/UL (150-450); RED BLOOD COUNT 4.77 M/UL (4.70-6.10); RED CELL DISTRIBUTION WIDTH 16.6 % (11.6-14.8); WHITE BLOOD COUNT 5.6 K/UL (4.8-10.8)
[2018-05-28] MEDS: Albuterol/Ipratropium 3ml neb INH SCH ×3 (06:41→23:03)
[2018-05-28 06:53] LABS: ANION GAP 4 mmol/L (5-15); BLOOD UREA NITROGEN 23 mg/dL (7-18); CALCIUM 8.5 MG/DL (8.5-10.1); CARBON DIOXIDE 29 MMOL/L (21-32); CHLORIDE 103 MMOL/L (98-107); CHOLESTEROL 143 MG/DL (< 200); CREATININE 1.6 MG/DL (0.55-1.30); HDL CHOLESTEROL 55 MG/DL (40-60); POTASSIUM 4.9 MMOL/L (3.5-5.1); SODIUM 136 MMOL/L (136-145); TRIGLYCERIDES 65 MG/DL (30-150)
[2018-05-28 08:00] VITALS: BP 124/64
[2018-05-28] MEDS: Furosemide 40mg tab ORAL SCH (08:57)
[2018-05-28] MEDS: Docusate 100mg cap ORAL SCH ×2 (08:57→21:15)
[2018-05-28] MEDS: Theophylline ER 100mg ORAL SCH ×2 (08:57→21:15)
[2018-05-28 12:00] VITALS: BP 136/66
--- NOTE | 2018-05-28 12:43 | Pulmonology Progress Note ---
Assessment/Plan Problems: (1) COPD exacerbation (2) Nonhealing ulcer of right lower extremity (3) Diabetic foot ulcer (4) CAD (coronary artery disease) (5) DM (diabetes mellitus) (6) HTN (hypertension) Assessment/Plan less sob doing better wound care awaiting ID evaluation surgical evaluation appreciated Subjective ROS Limited/Unobtainable: No Constitutional: Reports: no symptoms HEENT: Repors: no symptoms Respiratory: Reports: no symptoms Allergies: Coded Allergies: EGG (Verified Allergy, Unknown, 09/22/15) MEPERIDINE (Verified Allergy, Unknown, 12/21/10) NITROGLYCERIN (Verified Allergy, Unknown, hives, 02/18/17) Objective Last 24 Hour Vital Signs Date Time Temp Pulse Resp B/P (MAP) Pulse Ox O2 Delivery O2 Flow Rate FiO2 05/28/18 12:00 97.9 88 18 136/66 93 Room Air 21 97.9 05/28/18 10:47 98.1 05/28/18 10:17 98.1 05/28/18 08:58 87 124/64 05/28/18 08:00 95 05/28/18 08:00 98.1 87 18 124/64 93 Room Air 21 98.1 05/28/18 06:41 Room Air 05/28/18 06:41 Room Air 05/28/18 04:00 98.2 86 18 140/71 93 Room Air 98.2 05/28/18 04:00 87 05/28/18 00:00 90 05/28/18 00:00 98.1 93 19 130/67 93 Room Air 98.1 05/27/18 23:32 90 20 98 Room Air 21 05/27/18 23:31 86 20 96 Room Air 21 05/27/18 20:00 98.4 100 20 134/66 93 Room Air 98.4 05/27/18 20:00 100 05/27/18 16:52 97.1 92 20 150/64 99 Room Air 21 97.1 05/27/18 16:43 97.8 05/27/18 16:00 106 05/27/18 15:33 97 20 99 Room Air 21 05/27/18 15:22 92 20 95 Room Air 21 Intake and Output 05/27/18 05/28/18 19:00 07:00 Intake Total 560 ml Output Total 1100 ml 600 ml Balance -540 ml -600 ml Intake Oral 560 ml Output Urine Total 1100 ml 600 ml HEENT: atraumatic Respiratory/Chest: chest wall non-tender, normal breath sounds Cardiovascular: normal peripheral pulses, normal rate Abdomen: normal bowel sounds, soft, non tender Genitourinary: normal external genitalia Skin: no rash 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 Laboratory Tests 05/28/18 05:10: White Blood Count 5.6, Red Blood Count 4.77, Hemoglobin 12.6L, Hematocrit 39.6L , Mean Corpuscular Volume 83, Mean Corpuscular Hemoglobin 26.5L, Mean Corpuscular Hemoglobin Concent 31.9L, Red Cell Distribution Width 16.6H, Platelet Count 273, Mean Platelet Volume 6.8, Neutrophils (%) (Auto) 35.4L, Lymphocytes (%) (Auto) 44.3, Monocytes (%) (Auto) 13.7H, Eosinophils (%) (Auto) 3.8H, Basophils (%) (Auto) 2.7H, Prothrombin Time 10.4, Prothromb Time International Ratio 1.0, Activated Partial Thromboplast Time 31, Sodium Level 136, Potassium Level 4.9, Chloride Level 103, Carbon Dioxide Level 29, Anion Gap 4L, Blood Urea Nitrogen 23H, Creatinine 1.6H, Estimat Glomerular Filtration Rate 52.4, Glucose Level 86, Hemoglobin A1c 5.7, Calcium Level 8.5, Magnesium Level 2.1, Troponin I 0.000, Pro-B-Type Natriuretic Peptide 490H, Triglycerides Level 65, Cholesterol Level 143, LDL Cholesterol 90, HDL Cholesterol 55, Cholesterol/HDL Ratio 2.6L Current Medications Medications (Trade) Dose Ordered Sig/Aminata Route PRN Reason Start Time Stop Time Status Last Admin Dose Admin Acetaminophen (Tylenol) 650 mg Q4H PRN ORAL Mild Pain (Pain Scale 1-3) 05/27/18 07:30 06/26/18 07:29 Acetaminophen (Tylenol) 650 mg Q4H PRN ORAL fever 05/27/18 07:30 06/26/18 07:29 Acetaminophen (Tylenol) 650 mg Q4H PRN RECTAL Mild Pain (Pain Scale 1-3) 05/27/18 07:30 06/26/18 07:29 Acetaminophen (Tylenol) 650 mg Q4H PRN RECTAL fever 05/27/18 07:30 06/26/18 07:29 Albuterol/ Ipratropium (Albuterol/ Ipratropium) 3 ml Q4H PRN INH Shortness of Breath 05/27/18 07:30 06/01/18 07:29 Albuterol/ Ipratropium (Albuterol/ Ipratropium) 3 ml Q8HRT INH 05/27/18 15:00 06/01/18 14:59 05/27/18 23:26 Amlodipine Besylate (Norvasc) 10 mg DAILY ORAL 05/27/18 09:00 06/26/18 08:59 05/28/18 08:58 Bisacodyl (Dulcolax) 10 mg DAILYPRN PRN RECTAL Constipation 05/27/18 07:30 06/26/18 07:29 Clopidogrel Bisulfate (Plavix) 75 mg DAILY ORAL 05/27/18 09:00 06/26/18 08:59 05/28/18 08:57 Dextrose (Dextrose 50%) 25 ml STAT PRN IV Hypoglycemia 05/27/18 07:30 06/26/18 07:29 Dextrose (Dextrose 50%) 50 ml STAT PRN IV Hypoglycemia 05/27/18 07:30 06/26/18 07:29 Docusate Sodium (Colace) 100 mg EVERY 12 HOURS ORAL 05/27/18 09:00 06/26/18 08:59 05/28/18 08:57 Furosemide (Lasix) 40 mg DAILY ORAL 05/27/18 09:00 06/26/18 08:59 05/28/18 08:57 Heparin Sodium (Porcine) (Heparin 5000 units/ml) 5,000 units EVERY 8 HOURS SUBQ 05/27/18 14:00 06/26/18 13:59 05/28/18 05:41 Magnesium Hydroxide (Mom) 30 ml HSPRN PRN ORAL Constipation 05/27/18 07:30 06/26/18 07:29 Mirtazapine (Remeron) 15 mg BEDTIME ORAL 05/28/18 21:00 06/27/18 20:59 Morphine Sulfate (Morphine Sulfate) 4 mg Q3H PRN IVP PAIN 4-10 05/28/18 12:30 06/04/18 12:29 Ondansetron HCl (Zofran) 4 mg Q6H PRN IVP Nausea & Vomiting 05/27/18 07:30 06/26/18 07:29 Polyethylene Glycol (Miralax) 17 gm DAILYPRN PRN ORAL Constipation 05/27/18 07:30 06/26/18 07:29 Theophylline (Wilfrido-Dur) 100 mg EVERY 12 HOURS ORAL 05/27/18 09:00 06/26/18 08:59 05/28/18 08:57 Jessie Magana MD May 28, 2018 12:43
--- NOTE | 2018-05-28 13:27 | Diagnostic Imaging Report ---
Indication: Dyspnea Technique: XRAY Chest 1v Comparison: 05/12/2018 Findings: Heart size and mediastinal contours are stable. There is dense of prior median sternotomy and CABG and likely coronary arterial stenting. There is hyperinflation and flattening the diaphragms. No focal consolidation, pleural effusion or pneumothorax. No acute osseous abnormality. Impression: Findings suggestive of COPD. Correlate clinically. No definite focal consolidation.
--- NOTE | 2018-05-28 13:31 | Consultation ---
History of Present Illness General Date patient seen: May 28, 2018 Chief Complaint: Chest Pain Reason for Consultation: non healing right lower extremity wound Present Illness HPI 67-year-old male with hx of COPD, CAD/AK s/p CABG/ stents x2, chronic pain, s/ p PPM, chronic leg ulcers, HTN, severe malnutrition, MDD, tobacco abuse, seizure disorder, emphysema, DM2, bedbound presents to ED on 05/27 with Lower extremity pain. Has chronic R lateral ankle wound but refers now increasing edema and some drainge. Aso reported some increasing chest discomfort adn SOB. OF note, patient recently admitted here from 05/12-05/18 for Chest pain and b/l leg cellulitis and swelling. Also, patient admitted here on late February 2018 with SOB, cough and chest pain; found to have COPD exacerbation. At that time, R ankle ulcer had no signs of infection. Treated with a total 5 days of abx (Zosyn>levaquin) Afebrile no leukocytosis off abx Allergies: Coded Allergies: EGG (Verified Allergy, Unknown, 09/22/15) MEPERIDINE (Verified Allergy, Unknown, 12/21/10) NITROGLYCERIN (Verified Allergy, Unknown, hives, 02/18/17) Medication History Scheduled Amlodipine Besylate* (Amlodipine Besylate*), 10 MG ORAL DAILY, (Reported) Clopidogrel Bisulfate* (Plavix*), 75 MG ORAL DAILY, (Reported) Hydromorphone Hcl (Dilaudid), 2 MG PO EVERY 4 HOURS Mirtazapine* (Remeron*), 15 MG ORAL BEDTIME, (Reported) Ranitidine Hcl* (Zantac*), 150 MG ORAL Q12HR Theophylline (Theodur*), 100 MG ORAL EVERY 12 HOURS Scheduled PRN Albuterol Sulfate (Ventolin Hfa), 1 PUFF INH EVERY 6 HOURS PRN Docusate Sodium* (Colace*), 100 MG ORAL DAILY PRN for Constipation, (Reported) Ondansetron Hcl* (Zofran*), 8 MG ORAL Q6H PRN for Nausea & Vomiting, (Reported) Discontinued Medications Levetiracetam (Keppra), 500 MG ORAL EVERY 12 HOURS, (Reported) Discontinued Reason: Pt stopped taking med Patient History Healthcare decision maker Resuscitation status Full Code Advanced Directive on File Patient History Narrative Pmhx: as above Shx: The patient is , however continues lives with his ex-. The patient admits to tobacco use one pack per day. The patient denies alcohol use. Fhx: non contributory Review of Systems All Other Systems: negative except mentioned in HPI Physical Exam Physical Exam Narrative General Appearance: no apparent distress Lines, tubes and drains: peripheral HEENT: mucous membranes moist Neck: normal inspection Respiratory/Chest: normal breath sounds, no respiratory distress, no accessory muscle use Cardiovascular/Chest: normal rate Abdomen: non tender, soft, no organomegaly, no mass Extremities: trace edema, other - right lateral malleolus ulcer slowly healing. small open area and can see remnent of prior larger wound. palpable but poor peripheral pulses. dry skin Skin Exam: normal pigmentation, warm/dry Neurologic: alert, oriented x 3 Last 24 Hour Vital Signs Date Time Temp Pulse Resp B/P (MAP) Pulse Ox O2 Delivery O2 Flow Rate FiO2 05/28/18 12:00 97.9 88 18 136/66 93 Room Air 21 97.9 05/28/18 10:47 98.1 05/28/18 10:17 98.1 05/28/18 08:58 87 124/64 05/28/18 08:00 95 05/28/18 08:00 98.1 87 18 124/64 93 Room Air 21 98.1 05/28/18 06:41 Room Air 05/28/18 06:41 Room Air 05/28/18 04:00 98.2 86 18 140/71 93 Room Air 98.2 05/28/18 04:00 87 05/28/18 00:00 90 05/28/18 00:00 98.1 93 19 130/67 93 Room Air 98.1 05/27/18 23:32 90 20 98 Room Air 21 05/27/18 23:31 86 20 96 Room Air 21 05/27/18 20:00 98.4 100 20 134/66 93 Room Air 98.4 05/27/18 20:00 100 05/27/18 16:52 97.1 92 20 150/64 99 Room Air 21 97.1 05/27/18 16:43 97.8 05/27/18 16:00 106 05/27/18 15:33 97 20 99 Room Air 21 05/27/18 15:22 92 20 95 Room Air 21 Intake and Output 7/4/18 7/5/18 19:00 07:00 Intake Total 560 ml Output Total 1100 ml 600 ml Balance -540 ml -600 ml Intake Oral 560 ml Output Urine Total 1100 ml 600 ml Laboratory Tests Test 05/28/18 05:10 White Blood Count 5.6 K/UL (4.8-10.8) Red Blood Count 4.77 M/UL (4.70-6.10) Hemoglobin 12.6 G/DL (14.2-18.0) L Hematocrit 39.6 % (42.0-52.0) L Mean Corpuscular Volume 83 FL (80-99) Mean Corpuscular Hemoglobin 26.5 PG (27.0-31.0) L Mean Corpuscular Hemoglobin Concent 31.9 G/DL (32.0-36.0) L Red Cell Distribution Width 16.6 % (11.6-14.8) H Platelet Count 273 K/UL (150-450) Mean Platelet Volume 6.8 FL (6.5-10.1) Neutrophils (%) (Auto) 35.4 % (45.0-75.0) L Lymphocytes (%) (Auto) 44.3 % (20.0-45.0) Monocytes (%) (Auto) 13.7 % (1.0-10.0) H Eosinophils (%) (Auto) 3.8 % (0.0-3.0) H Basophils (%) (Auto) 2.7 % (0.0-2.0) H Prothrombin Time 10.4 SEC (9.30-11.50) Prothromb Time International Ratio 1.0 (0.9-1.1) Activated Partial Thromboplast Time 31 SEC (23-33) Sodium Level 136 MMOL/L (136-145) Potassium Level 4.9 MMOL/L (3.5-5.1) Chloride Level 103 MMOL/L (98-107) Carbon Dioxide Level 29 MMOL/L (21-32) Anion Gap 4 mmol/L (5-15) L Blood Urea Nitrogen 23 mg/dL (7-18) H Creatinine 1.6 MG/DL (0.55-1.30) H Estimat Glomerular Filtration Rate 52.4 mL/min (>60) Glucose Level 86 MG/DL (74-106) Hemoglobin A1c 5.7 % (4.3-6.0) Calcium Level 8.5 MG/DL (8.5-10.1) Magnesium Level 2.1 MG/DL (1.8-2.4) Troponin I 0.000 ng/mL (0.000-0.056) Pro-B-Type Natriuretic Peptide 490 pg/mL (0-125) H Triglycerides Level 65 MG/DL (30-150) Cholesterol Level 143 MG/DL (< 200) LDL Cholesterol 90 mg/dL (<100) HDL Cholesterol 55 MG/DL (40-60) Cholesterol/HDL Ratio 2.6 (3.3-4.4) L Height (Feet): 6 Height (Inches): 1.00 Weight (Pounds): 133 Medications Current Medications Medications (Trade) Dose Ordered Sig/Aminata Route PRN Reason Start Time Stop Time Status Last Admin Dose Admin Acetaminophen (Tylenol) 650 mg Q4H PRN ORAL Mild Pain (Pain Scale 1-3) 05/27/18 07:30 06/26/18 07:29 Acetaminophen (Tylenol) 650 mg Q4H PRN ORAL fever 05/27/18 07:30 06/26/18 07:29 Acetaminophen (Tylenol) 650 mg Q4H PRN RECTAL Mild Pain (Pain Scale 1-3) 05/27/18 07:30 06/26/18 07:29 Acetaminophen (Tylenol) 650 mg Q4H PRN RECTAL fever 05/27/18 07:30 06/26/18 07:29 Albuterol/ Ipratropium (Albuterol/ Ipratropium) 3 ml Q4H PRN INH Shortness of Breath 05/27/18 07:30 06/01/18 07:29 Albuterol/ Ipratropium (Albuterol/ Ipratropium) 3 ml Q8HRT INH 05/27/18 15:00 06/01/18 14:59 05/27/18 23:26 Amlodipine Besylate (Norvasc) 10 mg DAILY ORAL 05/27/18 09:00 06/26/18 08:59 05/28/18 08:58 Bisacodyl (Dulcolax) 10 mg DAILYPRN PRN RECTAL Constipation 05/27/18 07:30 06/26/18 07:29 Clopidogrel Bisulfate (Plavix) 75 mg DAILY ORAL 05/27/18 09:00 06/26/18 08:59 05/28/18 08:57 Dextrose (Dextrose 50%) 25 ml STAT PRN IV Hypoglycemia 05/27/18 07:30 06/26/18 07:29 Dextrose (Dextrose 50%) 50 ml STAT PRN IV Hypoglycemia 05/27/18 07:30 06/26/18 07:29 Docusate Sodium (Colace) 100 mg EVERY 12 HOURS ORAL 05/27/18 09:00 06/26/18 08:59 05/28/18 08:57 Furosemide (Lasix) 40 mg DAILY ORAL 05/27/18 09:00 06/26/18 08:59 05/28/18 08:57 Heparin Sodium (Porcine) (Heparin 5000 units/ml) 5,000 units EVERY 8 HOURS SUBQ 05/27/18 14:00 06/26/18 13:59 05/28/18 05:41 Magnesium Hydroxide (Mom) 30 ml HSPRN PRN ORAL Constipation 05/27/18 07:30 06/26/18 07:29 Mirtazapine (Remeron) 15 mg BEDTIME ORAL 05/28/18 21:00 06/27/18 20:59 Morphine Sulfate (Morphine Sulfate) 4 mg Q3H PRN IVP PAIN 4-10 05/28/18 12:30 06/04/18 12:29 Ondansetron HCl (Zofran) 4 mg Q6H PRN IVP Nausea & Vomiting 05/27/18 07:30 06/26/18 07:29 Polyethylene Glycol (Miralax) 17 gm DAILYPRN PRN ORAL Constipation 05/27/18 07:30 06/26/18 07:29 Theophylline (Wilfrido-Dur) 100 mg EVERY 12 HOURS ORAL 05/27/18 09:00 06/26/18 08:59 05/28/18 08:57 Assessment/Plan Assessment/Plan Abx: None Assessment: Bl leg swelling; R>L R leg cellulitis Dyspnea- -cXR: Findings suggestive of COPD. Correlate clinically. No definite focal consolidation. Afebrile, no leukocytosis REcent B/l Leg cellulitis (L>R), s/p Rx R Ankle chronic ulcer- healing, no signs of infection -R foot xray 03/2018: No acute injury identified. Abnormal fifth MPJ joint which may be on the basis of previous surgery/trauma or old erosive process. Osteoporosis -a. duplex: A mild (10-30%) stenosis is seen in the mid superficial femoral artery. There is no evidence of occlusion within this segment. HTN severe malnutrition MDD tobacco abuse seizure disorder emphysema DM2 CAD s/p CABG COPD -recent exacerbation requiring admission 02/2018 bedbound Plan: -Start IV Ancef for R leg cellulitis -05/16 SP Ancef # 5 -05/12 SP Cefepime and Zosyn x1 -03/26 SP PO Levaquin #3 -03/23/18 SP Zosyn #2 -f/u cx -Monitor CBC/BMP, temperatures -management of swelling per primary and cardiology -wound care per hosp protocol Thank you for this consultation. Will continue to follow along with you. Discussed with RN 05/18 Jessica Parry M.D. May 28, 2018 13:31
--- NOTE | 2018-05-28 14:38 | Diagnostic Imaging Report ---
Indication: Pain Technique: XRAY Chest 1v Comparison: 05/27/2018 Findings: Heart size and mediastinal contours are stable. Median sternotomy of prior CABG and coronary arterial stenting. Hyperinflation and flattening the diaphragms again noted. No focal consolidation, pleural effusion or pneumothorax. Degenerative change of the spine. No acute osseous abnormality. Impression: Significant interval change from exam of 05/27/2018. Findings suggestive of COPD. No focal consolidation.
--- NOTE | 2018-05-28 15:38 | Internal Med Progress Note ---
Subjective Date of Service: May 28, 2018 Physician Name Shantanu Reyna Attending Physician Phil Wright MD Current Medications Medications (Trade) Dose Ordered Sig/Aminata Route PRN Reason Start Time Stop Time Status Last Admin Dose Admin Acetaminophen (Tylenol) 650 mg Q4H PRN ORAL Mild Pain (Pain Scale 1-3) 05/27/18 07:30 06/26/18 07:29 Acetaminophen (Tylenol) 650 mg Q4H PRN ORAL fever 05/27/18 07:30 06/26/18 07:29 Acetaminophen (Tylenol) 650 mg Q4H PRN RECTAL Mild Pain (Pain Scale 1-3) 05/27/18 07:30 06/26/18 07:29 Acetaminophen (Tylenol) 650 mg Q4H PRN RECTAL fever 05/27/18 07:30 06/26/18 07:29 Albuterol/ Ipratropium (Albuterol/ Ipratropium) 3 ml Q4H PRN INH Shortness of Breath 05/27/18 07:30 06/01/18 07:29 Albuterol/ Ipratropium (Albuterol/ Ipratropium) 3 ml Q8HRT INH 05/27/18 15:00 06/01/18 14:59 05/28/18 14:29 Amlodipine Besylate (Norvasc) 10 mg DAILY ORAL 05/27/18 09:00 06/26/18 08:59 05/28/18 08:58 Bisacodyl (Dulcolax) 10 mg DAILYPRN PRN RECTAL Constipation 05/27/18 07:30 06/26/18 07:29 Cefazolin Sodium 1 gm/Dextrose 110 ml @ 220 mls/hr Q8HR IVPB 05/28/18 15:30 06/04/18 15:29 Clopidogrel Bisulfate (Plavix) 75 mg DAILY ORAL 05/27/18 09:00 06/26/18 08:59 05/28/18 08:57 Dextrose (Dextrose 50%) 25 ml STAT PRN IV Hypoglycemia 05/27/18 07:30 06/26/18 07:29 Dextrose (Dextrose 50%) 50 ml STAT PRN IV Hypoglycemia 05/27/18 07:30 06/26/18 07:29 Docusate Sodium (Colace) 100 mg EVERY 12 HOURS ORAL 05/27/18 09:00 06/26/18 08:59 05/28/18 08:57 Furosemide (Lasix) 40 mg DAILY ORAL 05/27/18 09:00 06/26/18 08:59 05/28/18 08:57 Heparin Sodium (Porcine) (Heparin 5000 units/ml) 5,000 units EVERY 8 HOURS SUBQ 05/27/18 14:00 06/26/18 13:59 05/28/18 13:58 Magnesium Hydroxide (Mom) 30 ml HSPRN PRN ORAL Constipation 05/27/18 07:30 06/26/18 07:29 Mirtazapine (Remeron) 15 mg BEDTIME ORAL 05/28/18 21:00 06/27/18 20:59 Morphine Sulfate (Morphine Sulfate) 4 mg Q3H PRN IVP PAIN 4-10 05/28/18 12:30 06/04/18 12:29 05/28/18 13:55 Ondansetron HCl (Zofran) 4 mg Q6H PRN IVP Nausea & Vomiting 05/27/18 07:30 06/26/18 07:29 Polyethylene Glycol (Miralax) 17 gm DAILYPRN PRN ORAL Constipation 05/27/18 07:30 06/26/18 07:29 Theophylline (Wilfrido-Dur) 100 mg EVERY 12 HOURS ORAL 05/27/18 09:00 06/26/18 08:59 05/28/18 08:57 Allergies: Coded Allergies: EGG (Verified Allergy, Unknown, 09/22/15) MEPERIDINE (Verified Allergy, Unknown, 12/21/10) NITROGLYCERIN (Verified Allergy, Unknown, hives, 02/18/17) ROS Limited/Unobtainable: No Constitutional: Reports: no symptoms HEENT: Reports: no symptoms Cardiovascular: Reports: chest pain Respiratory: Reports: no symptoms Gastrointestinal/Abdominal: Reports: no symptoms Genitourinary: Reports: no symptoms 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: Reports: no symptoms Subjective 67 YO M admitted with chest pain and bilateral leg swelling. Cover for Radha Wright Objective Last Vital Signs Date Time Temp Pulse Resp B/P (MAP) Pulse Ox O2 Delivery O2 Flow Rate FiO2 05/28/18 14:37 98 18 98 Room Air 21 05/28/18 14:25 97.9 05/28/18 12:00 136/66 General Appearance: alert, mild distress, thin EENT: PERRL/EOMI, normal ENT inspection Neck: non-tender, normal alignment, supple, normal inspection Cardiovascular: normal peripheral pulses, normal rate, regular rhythm, no gallop/murmur, no JVD Respiratory/Chest: chest wall non-tender, lungs clear, normal breath sounds, no respiratory distress, no accessory muscle use Abdomen: normal bowel sounds, non tender, soft, no organomegaly, no mass Extremities: normal range of motion, non-tender Edema: trace edema 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, no motor/sensory deficits Skin: normal pigmentation, warm/dry Laboratory Tests Test 05/28/18 05:10 White Blood Count 5.6 K/UL (4.8-10.8) Red Blood Count 4.77 M/UL (4.70-6.10) Hemoglobin 12.6 G/DL (14.2-18.0) L Hematocrit 39.6 % (42.0-52.0) L Mean Corpuscular Volume 83 FL (80-99) Mean Corpuscular Hemoglobin 26.5 PG (27.0-31.0) L Mean Corpuscular Hemoglobin Concent 31.9 G/DL (32.0-36.0) L Red Cell Distribution Width 16.6 % (11.6-14.8) H Platelet Count 273 K/UL (150-450) Mean Platelet Volume 6.8 FL (6.5-10.1) Neutrophils (%) (Auto) 35.4 % (45.0-75.0) L Lymphocytes (%) (Auto) 44.3 % (20.0-45.0) Monocytes (%) (Auto) 13.7 % (1.0-10.0) H Eosinophils (%) (Auto) 3.8 % (0.0-3.0) H Basophils (%) (Auto) 2.7 % (0.0-2.0) H Prothrombin Time 10.4 SEC (9.30-11.50) Prothromb Time International Ratio 1.0 (0.9-1.1) Activated Partial Thromboplast Time 31 SEC (23-33) Sodium Level 136 MMOL/L (136-145) Potassium Level 4.9 MMOL/L (3.5-5.1) Chloride Level 103 MMOL/L (98-107) Carbon Dioxide Level 29 MMOL/L (21-32) Anion Gap 4 mmol/L (5-15) L Blood Urea Nitrogen 23 mg/dL (7-18) H Creatinine 1.6 MG/DL (0.55-1.30) H Estimat Glomerular Filtration Rate 52.4 mL/min (>60) Glucose Level 86 MG/DL (74-106) Hemoglobin A1c 5.7 % (4.3-6.0) Calcium Level 8.5 MG/DL (8.5-10.1) Magnesium Level 2.1 MG/DL (1.8-2.4) Troponin I 0.000 ng/mL (0.000-0.056) Pro-B-Type Natriuretic Peptide 490 pg/mL (0-125) H Triglycerides Level 65 MG/DL (30-150) Cholesterol Level 143 MG/DL (< 200) LDL Cholesterol 90 mg/dL (<100) HDL Cholesterol 55 MG/DL (40-60) Cholesterol/HDL Ratio 2.6 (3.3-4.4) L Intake and Output 05/27/18 05/28/18 19:00 07:00 Intake Total 560 ml Output Total 1100 ml 600 ml Balance -540 ml -600 ml Intake Oral 560 ml Output Urine Total 1100 ml 600 ml Assessment/Plan Problem List: (1) Chest pain Assessment & Plan: See cardiology note. Ruled out for ACS (2) Cellulitis of right ankle (3) HTN (hypertension) Assessment & Plan: Continue norvasc (4) CAD (coronary artery disease) Assessment & Plan: Continue plavix (5) COPD exacerbation (6) Nonhealing ulcer of right lower extremity Assessment & Plan: Await podiatry consult. See ID note-continue ancef (7) Edema Status: not improved Shantanu Reyna MD May 28, 2018 15:38
--- NOTE | 2018-05-28 15:54 | General Progress Note ---
Assessment/Plan Assessment/Plan mdd anxiety insomnia -remeron 15mg qhs ptovided ro/st Subjective Date patient seen: May 28, 2018 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: Reports: anxiety, depressed, emotional problems Allergies: Coded Allergies: EGG (Verified Allergy, Unknown, 09/22/15) MEPERIDINE (Verified Allergy, Unknown, 12/21/10) NITROGLYCERIN (Verified Allergy, Unknown, hives, 02/18/17) Objective Last 24 Hour Vital Signs Date Time Temp Pulse Resp B/P (MAP) Pulse Ox O2 Delivery O2 Flow Rate FiO2 05/28/18 14:37 98 18 98 Room Air 21 05/28/18 14:30 101 18 98 Room Air 21 05/28/18 14:25 97.9 05/28/18 13:55 97.9 05/28/18 12:00 97.9 88 18 136/66 93 Room Air 21 97.9 05/28/18 10:47 98.1 05/28/18 10:17 98.1 05/28/18 08:58 87 124/64 05/28/18 08:00 95 05/28/18 08:00 98.1 87 18 124/64 93 Room Air 21 98.1 05/28/18 06:41 Room Air 05/28/18 06:41 Room Air 05/28/18 04:00 98.2 86 18 140/71 93 Room Air 98.2 05/28/18 04:00 87 05/28/18 00:00 90 05/28/18 00:00 98.1 93 19 130/67 93 Room Air 98.1 05/27/18 23:32 90 20 98 Room Air 21 05/27/18 23:31 86 20 96 Room Air 21 05/27/18 20:00 98.4 100 20 134/66 93 Room Air 98.4 05/27/18 20:00 100 05/27/18 16:52 97.1 92 20 150/64 99 Room Air 21 97.1 05/27/18 16:43 97.8 05/27/18 16:00 106 Intake and Output 05/27/18 05/28/18 19:00 07:00 Intake Total 560 ml Output Total 1100 ml 600 ml Balance -540 ml -600 ml Intake Oral 560 ml Output Urine Total 1100 ml 600 ml Laboratory Tests 05/28/18 05:10: White Blood Count 5.6, Red Blood Count 4.77, Hemoglobin 12.6L, Hematocrit 39.6L , Mean Corpuscular Volume 83, Mean Corpuscular Hemoglobin 26.5L, Mean Corpuscular Hemoglobin Concent 31.9L, Red Cell Distribution Width 16.6H, Platelet Count 273, Mean Platelet Volume 6.8, Neutrophils (%) (Auto) 35.4L, Lymphocytes (%) (Auto) 44.3, Monocytes (%) (Auto) 13.7H, Eosinophils (%) (Auto) 3.8H, Basophils (%) (Auto) 2.7H, Prothrombin Time 10.4, Prothromb Time International Ratio 1.0, Activated Partial Thromboplast Time 31, Sodium Level 136, Potassium Level 4.9, Chloride Level 103, Carbon Dioxide Level 29, Anion Gap 4L, Blood Urea Nitrogen 23H, Creatinine 1.6H, Estimat Glomerular Filtration Rate 52.4, Glucose Level 86, Hemoglobin A1c 5.7, Calcium Level 8.5, Magnesium Level 2.1, Troponin I 0.000, Pro-B-Type Natriuretic Peptide 490H, Triglycerides Level 65, Cholesterol Level 143, LDL Cholesterol 90, HDL Cholesterol 55, Cholesterol/HDL Ratio 2.6L Height (Feet): 6 Height (Inches): 1.00 Weight (Pounds): 133 General Appearance: no apparent distress, alert Neurologic: oriented x 3, responsive, depressed affect Rachael Buckley MD May 28, 2018 15:54
[2018-05-28] MEDS: ceFAZolin sod 1 GM in D5W 110 ML IVPB SCH ×2 (15:56→21:15)
[2018-05-28 16:00] VITALS: BP 128/77
--- NOTE | 2018-05-28 17:52 | Consultation ---
History of Present Illness General Date patient seen: May 28, 2018 Time patient seen: 16:52 Chief Complaint: Chest Pain Reason for Consultation: non healing right lower extremity wound Present Illness HPI 67 year old male Pt came to ER c/o chest pain radiating to R shoulder and SOB. Pt also c/o R lower leg pain due to cellulitis. No SOB noted in ER, O2 98% RA. Pt has dressing in his R lower leg. Per pt he was d/c from hospital 10 days ago due to cellulitis. He has a history of CAD and CABG. Initial troponin negative, CXR clear. He reports having increased leg swelling bilaterally. He reports having some increased chest discomfort as well as difficulty breathing. The patient chronic nonhealing wounds to lower extremities. His cardiac history is angioplasty in 2017 with 2 stents placed. Coronary artery bypass graft, 6 or 7 years ago. Allergies: Coded Allergies: EGG (Verified Allergy, Unknown, 09/22/15) MEPERIDINE (Verified Allergy, Unknown, 12/21/10) NITROGLYCERIN (Verified Allergy, Unknown, hives, 02/18/17) Medication History Scheduled Amlodipine Besylate* (Amlodipine Besylate*), 10 MG ORAL DAILY, (Reported) Clopidogrel Bisulfate* (Plavix*), 75 MG ORAL DAILY, (Reported) Hydromorphone Hcl (Dilaudid), 2 MG PO EVERY 4 HOURS Mirtazapine* (Remeron*), 15 MG ORAL BEDTIME, (Reported) Ranitidine Hcl* (Zantac*), 150 MG ORAL Q12HR Theophylline (Theodur*), 100 MG ORAL EVERY 12 HOURS Scheduled PRN Albuterol Sulfate (Ventolin Hfa), 1 PUFF INH EVERY 6 HOURS PRN Docusate Sodium* (Colace*), 100 MG ORAL DAILY PRN for Constipation, (Reported) Ondansetron Hcl* (Zofran*), 8 MG ORAL Q6H PRN for Nausea & Vomiting, (Reported) Discontinued Medications Levetiracetam (Keppra), 500 MG ORAL EVERY 12 HOURS, (Reported) Discontinued Reason: Pt stopped taking med Patient History Healthcare decision maker Resuscitation status Full Code Advanced Directive on File Review of Systems Constitutional: Reports: no symptoms Eye: Reports: no symptoms Respiratory: Reports: shortness of breath Cardiovascular: Reports: chest pain Gastrointestinal: Reports: no symptoms Genitourinary: Reports: no symptoms Musculoskeletal: Reports: no symptoms Skin: Reports: no symptoms Psychiatric: Reports: no symptoms Neurological: Reports: no symptoms Endocrine: Reports: no symptoms Hematologic/Lymphatic: Reports: no symptoms Physical Exam General Appearance: no apparent distress Lines, tubes and drains: peripheral HEENT: normocephalic Neck: non-tender Respiratory/Chest: chest wall non-tender, normal breath sounds Cardiovascular/Chest: normal peripheral pulses, pacemaker/AICD Abdomen: normal bowel sounds Extremities: normal range of motion Skin Exam: normal pigmentation 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 Musculoskeletal: normal muscle bulk Last 24 Hour Vital Signs Date Time Temp Pulse Resp B/P (MAP) Pulse Ox O2 Delivery O2 Flow Rate FiO2 05/28/18 16:00 101 05/28/18 16:00 98.2 96 18 128/77 98 Room Air 21 98.2 05/28/18 14:37 98 18 98 Room Air 21 05/28/18 14:30 101 18 98 Room Air 21 05/28/18 14:25 97.9 05/28/18 13:55 97.9 05/28/18 12:00 97.9 88 18 136/66 93 Room Air 21 97.9 05/28/18 12:00 90 05/28/18 10:47 98.1 05/28/18 10:17 98.1 05/28/18 08:58 87 124/64 05/28/18 08:00 95 05/28/18 08:00 98.1 87 18 124/64 93 Room Air 21 98.1 05/28/18 06:41 Room Air 05/28/18 06:41 Room Air 05/28/18 04:00 98.2 86 18 140/71 93 Room Air 98.2 05/28/18 04:00 87 05/28/18 00:00 90 05/28/18 00:00 98.1 93 19 130/67 93 Room Air 98.1 05/27/18 23:32 90 20 98 Room Air 21 05/27/18 23:31 86 20 96 Room Air 21 05/27/18 20:00 98.4 100 20 134/66 93 Room Air 98.4 05/27/18 20:00 100 Intake and Output 05/27/18 05/28/18 19:00 07:00 Intake Total 560 ml Output Total 1100 ml 600 ml Balance -540 ml -600 ml Intake Oral 560 ml Output Urine Total 1100 ml 600 ml Laboratory Tests Test 05/28/18 05:10 White Blood Count 5.6 K/UL (4.8-10.8) Red Blood Count 4.77 M/UL (4.70-6.10) Hemoglobin 12.6 G/DL (14.2-18.0) L Hematocrit 39.6 % (42.0-52.0) L Mean Corpuscular Volume 83 FL (80-99) Mean Corpuscular Hemoglobin 26.5 PG (27.0-31.0) L Mean Corpuscular Hemoglobin Concent 31.9 G/DL (32.0-36.0) L Red Cell Distribution Width 16.6 % (11.6-14.8) H Platelet Count 273 K/UL (150-450) Mean Platelet Volume 6.8 FL (6.5-10.1) Neutrophils (%) (Auto) 35.4 % (45.0-75.0) L Lymphocytes (%) (Auto) 44.3 % (20.0-45.0) Monocytes (%) (Auto) 13.7 % (1.0-10.0) H Eosinophils (%) (Auto) 3.8 % (0.0-3.0) H Basophils (%) (Auto) 2.7 % (0.0-2.0) H Prothrombin Time 10.4 SEC (9.30-11.50) Prothromb Time International Ratio 1.0 (0.9-1.1) Activated Partial Thromboplast Time 31 SEC (23-33) Sodium Level 136 MMOL/L (136-145) Potassium Level 4.9 MMOL/L (3.5-5.1) Chloride Level 103 MMOL/L (98-107) Carbon Dioxide Level 29 MMOL/L (21-32) Anion Gap 4 mmol/L (5-15) L Blood Urea Nitrogen 23 mg/dL (7-18) H Creatinine 1.6 MG/DL (0.55-1.30) H Estimat Glomerular Filtration Rate 52.4 mL/min (>60) Glucose Level 86 MG/DL (74-106) Hemoglobin A1c 5.7 % (4.3-6.0) Calcium Level 8.5 MG/DL (8.5-10.1) Magnesium Level 2.1 MG/DL (1.8-2.4) Troponin I 0.000 ng/mL (0.000-0.056) Pro-B-Type Natriuretic Peptide 490 pg/mL (0-125) H Triglycerides Level 65 MG/DL (30-150) Cholesterol Level 143 MG/DL (< 200) LDL Cholesterol 90 mg/dL (<100) HDL Cholesterol 55 MG/DL (40-60) Cholesterol/HDL Ratio 2.6 (3.3-4.4) L Height (Feet): 6 Height (Inches): 1.00 Weight (Pounds): 133 Medications Current Medications Medications (Trade) Dose Ordered Sig/Aminata Route PRN Reason Start Time Stop Time Status Last Admin Dose Admin Acetaminophen (Tylenol) 650 mg Q4H PRN ORAL Mild Pain (Pain Scale 1-3) 05/27/18 07:30 06/26/18 07:29 Acetaminophen (Tylenol) 650 mg Q4H PRN ORAL fever 05/27/18 07:30 06/26/18 07:29 Acetaminophen (Tylenol) 650 mg Q4H PRN RECTAL Mild Pain (Pain Scale 1-3) 05/27/18 07:30 06/26/18 07:29 Acetaminophen (Tylenol) 650 mg Q4H PRN RECTAL fever 05/27/18 07:30 06/26/18 07:29 Albuterol/ Ipratropium (Albuterol/ Ipratropium) 3 ml Q4H PRN INH Shortness of Breath 05/27/18 07:30 06/01/18 07:29 Albuterol/ Ipratropium (Albuterol/ Ipratropium) 3 ml Q8HRT INH 05/27/18 15:00 06/01/18 14:59 05/28/18 14:29 Amlodipine Besylate (Norvasc) 10 mg DAILY ORAL 05/27/18 09:00 06/26/18 08:59 05/28/18 08:58 Bisacodyl (Dulcolax) 10 mg DAILYPRN PRN RECTAL Constipation 05/27/18 07:30 06/26/18 07:29 Cefazolin Sodium 1 gm/Dextrose 110 ml @ 220 mls/hr Q8HR IVPB 05/28/18 15:30 06/04/18 15:29 05/28/18 15:56 Clopidogrel Bisulfate (Plavix) 75 mg DAILY ORAL 05/27/18 09:00 06/26/18 08:59 05/28/18 08:57 Dextrose (Dextrose 50%) 25 ml STAT PRN IV Hypoglycemia 05/27/18 07:30 06/26/18 07:29 Dextrose (Dextrose 50%) 50 ml STAT PRN IV Hypoglycemia 05/27/18 07:30 06/26/18 07:29 Docusate Sodium (Colace) 100 mg EVERY 12 HOURS ORAL 05/27/18 09:00 06/26/18 08:59 05/28/18 08:57 Furosemide (Lasix) 40 mg DAILY ORAL 05/27/18 09:00 06/26/18 08:59 05/28/18 08:57 Heparin Sodium (Porcine) (Heparin 5000 units/ml) 5,000 units EVERY 8 HOURS SUBQ 05/27/18 14:00 06/26/18 13:59 05/28/18 13:58 Magnesium Hydroxide (Mom) 30 ml HSPRN PRN ORAL Constipation 05/27/18 07:30 06/26/18 07:29 Mirtazapine (Remeron) 15 mg BEDTIME ORAL 05/28/18 21:00 06/27/18 20:59 Morphine Sulfate (Morphine Sulfate) 4 mg Q3H PRN IVP PAIN 4-10 05/28/18 12:30 06/04/18 12:29 05/28/18 13:55 Ondansetron HCl (Zofran) 4 mg Q6H PRN IVP Nausea & Vomiting 05/27/18 07:30 06/26/18 07:29 Polyethylene Glycol (Miralax) 17 gm DAILYPRN PRN ORAL Constipation 05/27/18 07:30 06/26/18 07:29 Theophylline (Wilfrido-Dur) 100 mg EVERY 12 HOURS ORAL 05/27/18 09:00 06/26/18 08:59 05/28/18 08:57 Assessment/Plan Status: stable Assessment/Plan Assessment: (1) Cellulitis of right leg (2) Chronic ulcer of right leg (3) Hypothyroidism (4) Severe malnutrition (5) HTN (hypertension) (6) Chronic pain (7) ACS (acute coronary syndrome) (8) Cellulitis of right ankle (9) Ulcer of right lower leg (10) Edema (11) CHF (congestive heart failure) Plan: Continue dual antiplatelet therapy Outpatient stress test to evaluate status of stens and bypass grafts Trend troponin nitro prn CP Statin Continue BP medication Consider ranexa for refractory chest pain Adonis Winn M.D. May 28, 2018 17:52
[2018-05-28 20:00] VITALS: BP 135/78
[2018-05-28] MEDS ORDERED: Atorvastatin 80mg tab ORAL SCH (21:00)
[2018-05-28] MEDS: Ranolazine 500mg tab ORAL SCH (21:15)
[2018-05-29] VITALS: BP 153/74
--- NOTE | 2018-05-29 00:38 | Cardiology Report ---
APPROVED REPORT EKG Measurement Heart [id number] Normal sinus rhythm Biatrial enlargement Rightward axis Pulmonary disease pattern Abnormal ECG
[2018-05-29] MEDS: Morphine Sulfate 4mg/ml Inj (IV USE ONLY) IVP PRN ×6 (01:14→20:21)
[2018-05-29 04:00] VITALS: BP 148/74
[2018-05-29] MEDS: ceFAZolin sod 1 GM in D5W 110 ML IVPB SCH ×3 (05:28→21:36)
[2018-05-29] MEDS: Heparin 5000 units/ml inj SUBQ SCH ×3 (05:36→21:35)
[2018-05-29 06:28] LABS: BASOPHILS % (AUTO) 2.6 % (0.0-2.0); EOSINOPHILS % (AUTO) 4.8 % (0.0-3.0); HEMATOCRIT 40.5 % (42.0-52.0); HEMOGLOBIN 12.9 G/DL (14.2-18.0); LYMPHOCYTES % (AUTO) 35.7 % (20.0-45.0); MEAN CORPUSCULAR VOLUME 84 FL (80-99); MONOCYTES % (AUTO) 15.1 % (1.0-10.0); NEUTROPHILS % (AUTO) 41.8 % (45.0-75.0); PLATELET COUNT 286 K/UL (150-450); RED BLOOD COUNT 4.82 M/UL (4.70-6.10); WHITE BLOOD COUNT 5.9 K/UL (4.8-10.8)
[2018-05-29 06:55] LABS: ANION GAP 8 mmol/L (5-15); BLOOD UREA NITROGEN 26 mg/dL (7-18); CALCIUM 8.7 MG/DL (8.5-10.1); CARBON DIOXIDE 27 MMOL/L (21-32); CHLORIDE 102 MMOL/L (98-107); CREATININE 1.7 MG/DL (0.55-1.30); POTASSIUM 4.9 MMOL/L (3.5-5.1); SODIUM 137 MMOL/L (136-145)
[2018-05-29] MEDS: Albuterol/Ipratropium 3ml neb INH SCH ×2 (07:00→23:33)
[2018-05-29 08:00] VITALS: BP 137/81
[2018-05-29] MEDS ORDERED: Aspirin Baby 81mg NG SCH (09:00)
[2018-05-29] MEDS: Furosemide 40mg tab ORAL SCH (09:06)
[2018-05-29] MEDS: Docusate 100mg cap ORAL SCH ×2 (09:06→21:32)
[2018-05-29] MEDS: Theophylline ER 100mg ORAL SCH ×2 (09:07→21:33)
[2018-05-29] MEDS: Ranolazine 500mg tab ORAL SCH ×2 (09:07→21:40)
[2018-05-29 12:00] VITALS: BP 131/76
--- NOTE | 2018-05-29 12:16 | Pulmonology Progress Note ---
Assessment/Plan Problems: (1) COPD exacerbation (2) Nonhealing ulcer of right lower extremity (3) Diabetic foot ulcer (4) CAD (coronary artery disease) (5) DM (diabetes mellitus) (6) HTN (hypertension) Assessment/Plan in better spirit less sob doing better wound care ID evaluation appreciated surgical evaluation appreciated pain management Subjective ROS Limited/Unobtainable: No Constitutional: Reports: no symptoms HEENT: Repors: no symptoms Respiratory: Reports: no symptoms Allergies: Coded Allergies: EGG (Verified Allergy, Unknown, 09/22/15) MEPERIDINE (Verified Allergy, Unknown, 12/21/10) NITROGLYCERIN (Verified Allergy, Unknown, hives, 02/18/17) Objective Last 24 Hour Vital Signs Date Time Temp Pulse Resp B/P (MAP) Pulse Ox O2 Delivery O2 Flow Rate FiO2 05/29/18 12:08 97.7 05/29/18 09:07 96 137/81 05/29/18 08:00 98 05/29/18 08:00 97.7 96 20 137/81 94 Room Air 97.7 05/29/18 07:14 Room Air 05/29/18 07:14 93 20 95 Room Air 05/29/18 04:00 98.1 94 20 148/74 94 Room Air 98.1 05/29/18 04:00 93 05/29/18 00:00 98.6 100 20 153/74 94 Room Air 98.6 05/29/18 00:00 96 05/28/18 23:12 95 18 99 Room Air 21 05/28/18 23:02 98 20 94 Room Air 05/28/18 20:00 98.3 98 18 135/78 92 Room Air 98.3 05/28/18 20:00 97 05/28/18 18:35 98.2 05/28/18 18:05 98.2 05/28/18 16:00 101 05/28/18 16:00 98.2 96 18 128/77 98 Room Air 21 98.2 05/28/18 14:37 98 18 98 Room Air 21 05/28/18 14:30 101 18 98 Room Air 05/28/18 13:55 97.9 Intake and Output 05/28/18 05/29/18 19:00 07:00 Intake Total 450 ml Output Total 500 ml 400 ml Balance -50 ml -400 ml Intake Oral 450 ml Output Urine Total 500 ml 400 ml General Appearance: cachetic HEENT: normocephalic Respiratory/Chest: chest wall non-tender, lungs clear Cardiovascular: normal peripheral pulses, normal rate, regular rhythm Abdomen: normal bowel sounds, soft, non tender Extremities: no cyanosis Skin: no rash Microbiology Date/Time Source Procedure Growth Status 05/27/18 04:30 Nose MRSA Culture - Final NO METHICILLIN RESISTANT STAPH AUREUS... Complete Laboratory Tests 05/29/18 05:45: White Blood Count 5.9, Red Blood Count 4.82, Hemoglobin 12.9L, Hematocrit 40.5L , Mean Corpuscular Volume 84, Mean Corpuscular Hemoglobin 26.8L, Mean Corpuscular Hemoglobin Concent 31.9L, Red Cell Distribution Width 17.0H, Platelet Count 286, Mean Platelet Volume 6.9, Neutrophils (%) (Auto) 41.8L, Lymphocytes (%) (Auto) 35.7, Monocytes (%) (Auto) 15.1H, Eosinophils (%) (Auto) 4.8H, Basophils (%) (Auto) 2.6H, Sodium Level 137, Potassium Level 4.9, Chloride Level 102, Carbon Dioxide Level 27, Anion Gap 8, Blood Urea Nitrogen 26H, Creatinine 1.7H, Estimat Glomerular Filtration Rate 48.8, Glucose Level 117H, Calcium Level 8.7 Current Medications Medications (Trade) Dose Ordered Sig/Aminata Route PRN Reason Start Time Stop Time Status Last Admin Dose Admin Acetaminophen (Tylenol) 650 mg Q4H PRN ORAL Mild Pain (Pain Scale 1-3) 05/27/18 07:30 06/26/18 07:29 Acetaminophen (Tylenol) 650 mg Q4H PRN ORAL fever 05/27/18 07:30 06/26/18 07:29 Acetaminophen (Tylenol) 650 mg Q4H PRN RECTAL Mild Pain (Pain Scale 1-3) 05/27/18 07:30 06/26/18 07:29 Acetaminophen (Tylenol) 650 mg Q4H PRN RECTAL fever 05/27/18 07:30 06/26/18 07:29 Albuterol/ Ipratropium (Albuterol/ Ipratropium) 3 ml Q4H PRN INH Shortness of Breath 05/27/18 07:30 06/01/18 07:29 Albuterol/ Ipratropium (Albuterol/ Ipratropium) 3 ml Q8HRT INH 05/27/18 15:00 06/01/18 14:59 05/28/18 23:03 Amlodipine Besylate (Norvasc) 10 mg DAILY ORAL 05/27/18 09:00 06/26/18 08:59 05/29/18 09:07 Aspirin (ASA) 81 mg DAILY NG 05/29/18 09:00 06/28/18 08:59 05/29/18 09:06 Atorvastatin Calcium (Lipitor) 80 mg BEDTIME ORAL 05/28/18 21:00 06/27/18 20:59 05/28/18 21:15 Bisacodyl (Dulcolax) 10 mg DAILYPRN PRN RECTAL Constipation 05/27/18 07:30 06/26/18 07:29 Cefazolin Sodium 1 gm/Dextrose 110 ml @ 220 mls/hr Q8HR IVPB 05/28/18 15:30 06/04/18 15:29 05/29/18 05:28 Clopidogrel Bisulfate (Plavix) 75 mg DAILY ORAL 05/27/18 09:00 06/26/18 08:59 05/29/18 09:07 Dextrose (Dextrose 50%) 25 ml STAT PRN IV Hypoglycemia 05/27/18 07:30 06/26/18 07:29 Dextrose (Dextrose 50%) 50 ml STAT PRN IV Hypoglycemia 05/27/18 07:30 06/26/18 07:29 Docusate Sodium (Colace) 100 mg EVERY 12 HOURS ORAL 05/27/18 09:00 06/26/18 08:59 05/29/18 09:06 Furosemide (Lasix) 40 mg DAILY ORAL 05/27/18 09:00 06/26/18 08:59 05/29/18 09:06 Heparin Sodium (Porcine) (Heparin 5000 units/ml) 5,000 units EVERY 8 HOURS SUBQ 05/27/18 14:00 06/26/18 13:59 05/29/18 05:36 Magnesium Hydroxide (Mom) 30 ml HSPRN PRN ORAL Constipation 05/27/18 07:30 06/26/18 07:29 Mirtazapine (Remeron) 15 mg BEDTIME ORAL 05/28/18 21:00 06/27/18 20:59 05/28/18 21:14 Morphine Sulfate (Morphine Sulfate) 4 mg Q3H PRN IVP PAIN 4-10 05/28/18 12:30 06/04/18 12:29 05/29/18 12:08 Ondansetron HCl (Zofran) 4 mg Q6H PRN IVP Nausea & Vomiting 05/27/18 07:30 06/26/18 07:29 Polyethylene Glycol (Miralax) 17 gm DAILYPRN PRN ORAL Constipation 05/27/18 07:30 06/26/18 07:29 Ranolazine (Ranexa ER 500mg) 500 mg Q12HR ORAL 05/28/18 21:00 06/27/18 20:59 05/29/18 09:07 Theophylline (Wilfrido-Dur) 100 mg EVERY 12 HOURS ORAL 05/27/18 09:00 06/26/18 08:59 05/29/18 09:07 Jessie Magana MD May 29, 2018 12:16
--- NOTE | 2018-05-29 14:22 | Cardiology Report ---
APPROVED REPORT EKG Measurement Heart [id number] Normal sinus rhythm Normal ECG
--- NOTE | 2018-05-29 14:30 | General Surgery Progress Note ---
General Surgery-Progress Note Subjective Additional Comments still with pain in lower extremities but improving. edema improved. no n/v/f/c /. Objective Last 24 Hour Vital Signs Date Time Temp Pulse Resp B/P (MAP) Pulse Ox O2 Delivery O2 Flow Rate FiO2 05/29/18 12:08 97.7 05/29/18 12:00 97.3 20 131/76 (94) 94 97.3 05/29/18 09:07 96 137/81 05/29/18 08:00 98 05/29/18 08:00 97.7 96 20 137/81 94 Room Air 97.7 05/29/18 07:14 Room Air 21 05/29/18 07:14 93 20 95 Room Air 21 05/29/18 04:00 98.1 94 20 148/74 94 Room Air 98.1 05/29/18 04:00 93 05/29/18 00:00 98.6 100 20 153/74 94 Room Air 98.6 05/29/18 00:00 96 05/28/18 23:12 95 18 99 Room Air 21 05/28/18 23:02 98 20 94 Room Air 21 05/28/18 20:00 98.3 98 18 135/78 92 Room Air 98.3 05/28/18 20:00 97 05/28/18 18:35 98.2 05/28/18 18:05 98.2 05/28/18 16:00 101 05/28/18 16:00 98.2 96 18 128/77 98 Room Air 21 98.2 05/28/18 14:37 98 18 98 Room Air 21 05/28/18 14:30 101 18 98 Room Air 21 I&O Intake and Output 05/28/18 05/29/18 19:00 07:00 Intake Total 450 ml Output Total 500 ml 400 ml Balance -50 ml -400 ml Intake Oral 450 ml Output Urine Total 500 ml 400 ml Dressing: dry Wound: clean Drains: none Cardiovascular: RSR Respiratory: clear Abdomen: soft, non-tender Extremities: edema, tenderness, no cyanosis Laboratory Tests Test 05/29/18 05:45 White Blood Count 5.9 K/UL (4.8-10.8) Red Blood Count 4.82 M/UL (4.70-6.10) Hemoglobin 12.9 G/DL (14.2-18.0) L Hematocrit 40.5 % (42.0-52.0) L Mean Corpuscular Volume 84 FL (80-99) Mean Corpuscular Hemoglobin 26.8 PG (27.0-31.0) L Mean Corpuscular Hemoglobin Concent 31.9 G/DL (32.0-36.0) L Red Cell Distribution Width 17.0 % (11.6-14.8) H Platelet Count 286 K/UL (150-450) Mean Platelet Volume 6.9 FL (6.5-10.1) Neutrophils (%) (Auto) 41.8 % (45.0-75.0) L Lymphocytes (%) (Auto) 35.7 % (20.0-45.0) Monocytes (%) (Auto) 15.1 % (1.0-10.0) H Eosinophils (%) (Auto) 4.8 % (0.0-3.0) H Basophils (%) (Auto) 2.6 % (0.0-2.0) H Sodium Level 137 MMOL/L (136-145) Potassium Level 4.9 MMOL/L (3.5-5.1) Chloride Level 102 MMOL/L (98-107) Carbon Dioxide Level 27 MMOL/L (21-32) Anion Gap 8 mmol/L (5-15) Blood Urea Nitrogen 26 mg/dL (7-18) H Creatinine 1.7 MG/DL (0.55-1.30) H Estimat Glomerular Filtration Rate 48.8 mL/min (>60) Glucose Level 117 MG/DL (74-106) H Calcium Level 8.7 MG/DL (8.5-10.1) Plan Problems: (1) Nonhealing ulcer of right lower extremity Assessment & Plan: 67 M with slowly healing right lateral ankle wound. states >2 years but healing. can see area of larger wound that has been slowly healing. some mild cellulitis. mild trace edema. proximally dry. venous duplex / arterial duplex studies done within last few weeks and reviewed. calcified vessels distally but still has flow. -no acute surgical intervention necessary. -honey gel and foam dressing over ulcer -skin protectant and lotion -keep pressure off wound -okay to shower -will monitor while in hospital. thank you for this consultation. Ugo Simms May 29, 2018 14:30
[2018-05-29] MEDS ORDERED: Acetaminophen 650 MG SUPP RECTAL PRN ×2 (15:30)
[2018-05-29] MEDS ORDERED: Albuterol/Ipratropium 3ml neb INH PRN (15:30)
[2018-05-29 16:00] VITALS: BP 134/78
[2018-05-29] MEDS ORDERED: Albuterol/Ipratropium 3ml neb INH SCH (16:30)
[2018-05-29] MEDS ORDERED: Milk of Magnesia 30ml Ud ORAL PRN (16:30)
--- NOTE | 2018-05-29 16:55 | Internal Med Progress Note ---
Subjective Date of Service: May 29, 2018 Physician Name Reyna,Shantanu Attending Physician Phil Wright MD Current Medications Medications (Trade) Dose Ordered Sig/Aminata Route PRN Reason Start Time Stop Time Status Last Admin Dose Admin Acetaminophen (Tylenol) 650 mg Q4H PRN ORAL Mild Pain (Pain Scale 1-3) 05/29/18 15:30 06/26/18 07:29 Acetaminophen (Tylenol) 650 mg Q4H PRN ORAL fever (temp>100.5F) 05/29/18 15:30 06/26/18 07:29 Acetaminophen (Tylenol) 650 mg Q4H PRN RECTAL Mild Pain (Pain Scale 1-3) 05/29/18 15:30 06/26/18 07:29 Acetaminophen (Tylenol) 650 mg Q4H PRN RECTAL fever (temp>100.5F) 05/29/18 15:30 06/26/18 07:29 Albuterol/ Ipratropium (Albuterol/ Ipratropium) 3 ml ONCE INH 05/29/18 16:30 05/29/18 17:30 Albuterol/ Ipratropium (Albuterol/ Ipratropium) 3 ml Q4H PRN INH Shortness of Breath 05/29/18 15:30 06/01/18 07:29 Albuterol/ Ipratropium (Albuterol/ Ipratropium) 3 ml Q8HRT INH 05/29/18 23:00 06/03/18 22:59 Amlodipine Besylate (Norvasc) 10 mg DAILY ORAL 05/30/18 09:00 06/26/18 08:59 Aspirin (ASA) 81 mg DAILY NG 05/30/18 09:00 06/28/18 08:59 Atorvastatin Calcium (Lipitor) 80 mg BEDTIME ORAL 05/29/18 21:00 06/27/18 20:59 Bisacodyl (Dulcolax) 10 mg DAILYPRN PRN RECTAL Constipation 05/29/18 16:30 06/28/18 16:29 Cefazolin Sodium 1 gm/Dextrose 110 ml @ 220 mls/hr Q8HR IVPB 05/29/18 22:00 06/04/18 15:29 Clopidogrel Bisulfate (Plavix) 75 mg DAILY ORAL 05/30/18 09:00 06/26/18 08:59 Dextrose (Dextrose 50%) 25 ml STAT PRN IV Hypoglycemia 05/29/18 16:00 06/28/18 15:59 Dextrose (Dextrose 50%) 50 ml STAT PRN IV Hypoglycemia 05/29/18 16:00 06/28/18 15:59 Docusate Sodium (Colace) 100 mg EVERY 12 HOURS ORAL 05/29/18 21:00 06/26/18 08:59 Furosemide (Lasix) 40 mg DAILY ORAL 05/30/18 09:00 06/26/18 08:59 Heparin Sodium (Porcine) (Heparin 5000 units/ml) 5,000 units EVERY 8 HOURS SUBQ 05/29/18 22:00 06/26/18 13:59 Magnesium Hydroxide (Mom) 30 ml HSPRN PRN ORAL Constipation 05/29/18 16:30 06/28/18 16:29 Mirtazapine (Remeron) 15 mg BEDTIME ORAL 05/29/18 21:00 06/27/18 20:59 Morphine Sulfate (Morphine Sulfate) 4 mg Q3H PRN IVP PAIN 4-10 05/29/18 16:00 06/04/18 15:59 05/29/18 16:08 Ondansetron HCl (Zofran) 4 mg Q6H PRN IVP Nausea & Vomiting 05/29/18 16:30 06/26/18 16:29 Polyethylene Glycol (Miralax) 17 gm DAILYPRN PRN ORAL Constipation 05/30/18 07:30 06/26/18 07:29 Ranolazine (Ranexa ER 500mg) 500 mg Q12HR ORAL 05/29/18 21:00 06/27/18 20:59 Theophylline (Wilfrido-Dur) 100 mg EVERY 12 HOURS ORAL 05/29/18 21:00 06/26/18 08:59 Allergies: Coded Allergies: EGG (Verified Allergy, Unknown, 09/22/15) MEPERIDINE (Verified Allergy, Unknown, 12/21/10) NITROGLYCERIN (Verified Allergy, Unknown, hives, 02/18/17) ROS Limited/Unobtainable: No Constitutional: Reports: no symptoms HEENT: Reports: no symptoms Cardiovascular: Reports: chest pain Respiratory: Reports: no symptoms Gastrointestinal/Abdominal: Reports: no symptoms Genitourinary: Reports: no symptoms 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: Reports: no symptoms Subjective 67 YO M admitted with chest pain and bilateral leg swelling. Cover for Int Wilfred- Dr Wright Objective Last Vital Signs Date Time Temp Pulse Resp B/P (MAP) Pulse Ox O2 Delivery O2 Flow Rate FiO2 05/29/18 16:38 97.7 05/29/18 16:00 99 20 134/78 (96) 94 05/29/18 15:24 Room Air 21 Laboratory Tests Test 05/29/18 05:45 White Blood Count 5.9 K/UL (4.8-10.8) Red Blood Count 4.82 M/UL (4.70-6.10) Hemoglobin 12.9 G/DL (14.2-18.0) L Hematocrit 40.5 % (42.0-52.0) L Mean Corpuscular Volume 84 FL (80-99) Mean Corpuscular Hemoglobin 26.8 PG (27.0-31.0) L Mean Corpuscular Hemoglobin Concent 31.9 G/DL (32.0-36.0) L Red Cell Distribution Width 17.0 % (11.6-14.8) H Platelet Count 286 K/UL (150-450) Mean Platelet Volume 6.9 FL (6.5-10.1) Neutrophils (%) (Auto) 41.8 % (45.0-75.0) L Lymphocytes (%) (Auto) 35.7 % (20.0-45.0) Monocytes (%) (Auto) 15.1 % (1.0-10.0) H Eosinophils (%) (Auto) 4.8 % (0.0-3.0) H Basophils (%) (Auto) 2.6 % (0.0-2.0) H Sodium Level 137 MMOL/L (136-145) Potassium Level 4.9 MMOL/L (3.5-5.1) Chloride Level 102 MMOL/L (98-107) Carbon Dioxide Level 27 MMOL/L (21-32) Anion Gap 8 mmol/L (5-15) Blood Urea Nitrogen 26 mg/dL (7-18) H Creatinine 1.7 MG/DL (0.55-1.30) H Estimat Glomerular Filtration Rate 48.8 mL/min (>60) Glucose Level 117 MG/DL (74-106) H Calcium Level 8.7 MG/DL (8.5-10.1) Microbiology Date/Time Source Procedure Growth Status 05/27/18 04:30 Nose MRSA Culture - Final NO METHICILLIN RESISTANT STAPH AUREUS... Complete Intake and Output 05/28/18 05/29/18 19:00 07:00 Intake Total 450 ml Output Total 500 ml 400 ml Balance -50 ml -400 ml Intake Oral 450 ml Output Urine Total 500 ml 400 ml Objective General Appearance: alert, mild distress, thin EENT: PERRL/EOMI, normal ENT inspection Neck: non-tender, normal alignment, supple, normal inspection Cardiovascular: normal peripheral pulses, normal rate, regular rhythm, no gallop/murmur, no JVD Respiratory/Chest: chest wall non-tender, lungs clear, normal breath sounds, no respiratory distress, no accessory muscle use Abdomen: normal bowel sounds, non tender, soft, no organomegaly, no mass Extremities: normal range of motion, non-tender Edema: trace edema 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 Ruled out for ACS (2) Cellulitis of right ankle Assessment & Plan: See ID note - continue ancef (3) HTN (hypertension) Assessment & Plan: Continue norvasc (4) CAD (coronary artery disease) Assessment & Plan: Continue plavix (5) COPD exacerbation (6) Nonhealing ulcer of right lower extremity Assessment & Plan: Await podiatry consult. See ID note-continue ancef (7) Edema Status: not improved Shantanu Reyna MD May 29, 2018 16:55
--- NOTE | 2018-05-29 18:33 | Cardiology Progress Note ---
Assessment/Plan Status: stable Assessment/Plan Assessment: (1) Cellulitis of right leg (2) Chronic ulcer of right leg (3) Hypothyroidism (4) Severe malnutrition (5) HTN (hypertension) (6) Chronic pain (7) ACS (acute coronary syndrome) (8) Cellulitis of right ankle (9) Ulcer of right lower leg (10) Edema (11) CHF (congestive heart failure) Plan: Continue dual antiplatelet therapy Outpatient stress test to evaluate status of stens and bypass grafts Trend troponin nitro prn CP Statin Continue BP medication Continue ranexa for refractory chest pain Wound care Subjective Cardiovascular: Reports: no symptoms Respiratory: Reports: no symptoms Gastrointestinal/Abdominal: Reports: no symptoms Genitourinary: Reports: no symptoms Subjective No acute events NO chest pain Patient does not want stress test Wound dressing in place Objective Last 24 Hour Vital Signs Date Time Temp Pulse Resp B/P (MAP) Pulse Ox O2 Delivery O2 Flow Rate FiO2 05/29/18 16:38 97.7 05/29/18 16:08 97.7 05/29/18 16:00 98.2 99 20 134/78 (96) 94 98.2 05/29/18 15:24 Room Air 21 05/29/18 15:24 Room Air 21 05/29/18 12:08 97.7 05/29/18 12:00 97.3 20 131/76 (94) 94 97.3 05/29/18 09:07 96 137/81 05/29/18 08:00 98 05/29/18 08:00 97.7 96 20 137/81 94 Room Air 97.7 05/29/18 07:14 Room Air 21 05/29/18 07:14 93 20 95 Room Air 21 05/29/18 04:00 98.1 94 20 148/74 94 Room Air 98.1 05/29/18 04:00 93 05/29/18 00:00 98.6 100 20 153/74 94 Room Air 98.6 05/29/18 00:00 96 05/28/18 23:12 95 18 99 Room Air 21 05/28/18 23:02 98 20 94 Room Air 21 05/28/18 20:00 98.3 98 18 135/78 92 Room Air 98.3 05/28/18 20:00 97 05/28/18 18:35 98.2 General Appearance: no apparent distress EENT: PERRL/EOMI Neck: non-tender Rhythm: NSR Cardiovascular: normal peripheral pulses Respiratory/Chest: chest wall non-tender Abdomen: normal bowel sounds Extremities: normal range of motion 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 Intake and Output 05/28/18 05/29/18 19:00 07:00 Intake Total 450 ml Output Total 500 ml 400 ml Balance -50 ml -400 ml Intake Oral 450 ml Output Urine Total 500 ml 400 ml Laboratory Tests Test 05/29/18 05:45 White Blood Count 5.9 K/UL (4.8-10.8) Red Blood Count 4.82 M/UL (4.70-6.10) Hemoglobin 12.9 G/DL (14.2-18.0) L Hematocrit 40.5 % (42.0-52.0) L Mean Corpuscular Volume 84 FL (80-99) Mean Corpuscular Hemoglobin 26.8 PG (27.0-31.0) L Mean Corpuscular Hemoglobin Concent 31.9 G/DL (32.0-36.0) L Red Cell Distribution Width 17.0 % (11.6-14.8) H Platelet Count 286 K/UL (150-450) Mean Platelet Volume 6.9 FL (6.5-10.1) Neutrophils (%) (Auto) 41.8 % (45.0-75.0) L Lymphocytes (%) (Auto) 35.7 % (20.0-45.0) Monocytes (%) (Auto) 15.1 % (1.0-10.0) H Eosinophils (%) (Auto) 4.8 % (0.0-3.0) H Basophils (%) (Auto) 2.6 % (0.0-2.0) H Sodium Level 137 MMOL/L (136-145) Potassium Level 4.9 MMOL/L (3.5-5.1) Chloride Level 102 MMOL/L (98-107) Carbon Dioxide Level 27 MMOL/L (21-32) Anion Gap 8 mmol/L (5-15) Blood Urea Nitrogen 26 mg/dL (7-18) H Creatinine 1.7 MG/DL (0.55-1.30) H Estimat Glomerular Filtration Rate 48.8 mL/min (>60) Glucose Level 117 MG/DL (74-106) H Calcium Level 8.7 MG/DL (8.5-10.1) Microbiology Date/Time Source Procedure Growth Status 05/27/18 04:30 Nose MRSA Culture - Final NO METHICILLIN RESISTANT STAPH AUREUS... Complete Adonis Winn M.D. May 29, 2018 18:33
[2018-05-29 20:00] VITALS: BP 116/75
--- NOTE | 2018-05-29 20:41 | Infectious Diseases Prog Note ---
Assessment/Plan Assessment/Plan Assessment: Bl leg swelling; R>L R leg cellulitis Dyspnea- -cXR: Findings suggestive of COPD. Correlate clinically. No definite focal consolidation. Afebrile, no leukocytosis REcent B/l Leg cellulitis (L>R), s/p Rx R Ankle chronic ulcer- healing, no signs of infection -R foot xray 03/2018: No acute injury identified. Abnormal fifth MPJ joint which may be on the basis of previous surgery/trauma or old erosive process. Osteoporosis -a. duplex: A mild (10-30%) stenosis is seen in the mid superficial femoral artery. There is no evidence of occlusion within this segment. HTN severe malnutrition MDD tobacco abuse seizure disorder emphysema DM2 CAD s/p CABG COPD -recent exacerbation requiring admission 02/2018 bedbound Plan: -Continue IV Ancef #2/7 for R leg cellulitis -05/16 SP Ancef # 5 -05/12 SP Cefepime and Zosyn x1 -5/3 SP PO Levaquin #3 -03/23/18 SP Zosyn #2 -f/u cx -Monitor CBC/BMP, temperatures -management of swelling per primary and cardiology -wound care per hosp protocol Thank you for this consultation. Will continue to follow along with you. Discussed with RN Subjective Allergies: Coded Allergies: EGG (Verified Allergy, Unknown, 09/22/15) MEPERIDINE (Verified Allergy, Unknown, 12/21/10) NITROGLYCERIN (Verified Allergy, Unknown, hives, 02/18/17) Subjective afebrile no leukocytosis Objective Vital Signs Last 24 Hour Vital Signs Date Time Temp Pulse Resp B/P (MAP) Pulse Ox O2 Delivery O2 Flow Rate FiO2 05/29/18 16:38 97.7 05/29/18 16:08 97.7 05/29/18 16:00 98.2 99 20 134/78 (96) 94 98.2 05/29/18 15:24 Room Air 21 05/29/18 15:24 Room Air 21 05/29/18 12:08 97.7 05/29/18 12:00 97.3 20 131/76 (94) 94 97.3 05/29/18 09:07 96 137/81 05/29/18 08:00 98 05/29/18 08:00 97.7 96 20 137/81 94 Room Air 97.7 05/29/18 07:14 Room Air 21 05/29/18 07:14 93 20 95 Room Air 21 05/29/18 04:00 98.1 94 20 148/74 94 Room Air 98.1 05/29/18 04:00 93 05/29/18 00:00 98.6 100 20 153/74 94 Room Air 98.6 05/29/18 00:00 96 05/28/18 23:12 95 18 99 Room Air 21 05/28/18 23:02 98 20 94 Room Air 21 Height (Feet): 6 Height (Inches): 1.00 Weight (Pounds): 133 Objective General Appearance: no apparent distress Lines, tubes and drains: peripheral HEENT: mucous membranes moist Neck: normal inspection Respiratory/Chest: normal breath sounds, no respiratory distress, no accessory muscle use Cardiovascular/Chest: normal rate Abdomen: non tender, soft, no organomegaly, no mass Extremities: trace edema, other - right lateral malleolus ulcer slowly healing. small open area and can see remnent of prior larger wound. palpable but poor peripheral pulses. dry skin Skin Exam: normal pigmentation, warm/dry Neurologic: alert, oriented x 3 Microbiology Date/Time Source Procedure Growth Status 05/27/18 04:30 Nose MRSA Culture - Final NO METHICILLIN RESISTANT STAPH AUREUS... Complete Laboratory Tests Test 05/29/18 05:45 White Blood Count 5.9 K/UL (4.8-10.8) Red Blood Count 4.82 M/UL (4.70-6.10) Hemoglobin 12.9 G/DL (14.2-18.0) L Hematocrit 40.5 % (42.0-52.0) L Mean Corpuscular Volume 84 FL (80-99) Mean Corpuscular Hemoglobin 26.8 PG (27.0-31.0) L Mean Corpuscular Hemoglobin Concent 31.9 G/DL (32.0-36.0) L Red Cell Distribution Width 17.0 % (11.6-14.8) H Platelet Count 286 K/UL (150-450) Mean Platelet Volume 6.9 FL (6.5-10.1) Neutrophils (%) (Auto) 41.8 % (45.0-75.0) L Lymphocytes (%) (Auto) 35.7 % (20.0-45.0) Monocytes (%) (Auto) 15.1 % (1.0-10.0) H Eosinophils (%) (Auto) 4.8 % (0.0-3.0) H Basophils (%) (Auto) 2.6 % (0.0-2.0) H Sodium Level 137 MMOL/L (136-145) Potassium Level 4.9 MMOL/L (3.5-5.1) Chloride Level 102 MMOL/L (98-107) Carbon Dioxide Level 27 MMOL/L (21-32) Anion Gap 8 mmol/L (5-15) Blood Urea Nitrogen 26 mg/dL (7-18) H Creatinine 1.7 MG/DL (0.55-1.30) H Estimat Glomerular Filtration Rate 48.8 mL/min (>60) Glucose Level 117 MG/DL (74-106) H Calcium Level 8.7 MG/DL (8.5-10.1) Current Medications Medications (Trade) Dose Ordered Sig/Aminata Route PRN Reason Start Time Stop Time Status Last Admin Dose Admin Acetaminophen (Tylenol) 650 mg Q4H PRN ORAL Mild Pain (Pain Scale 1-3) 05/29/18 15:30 06/26/18 07:29 Acetaminophen (Tylenol) 650 mg Q4H PRN ORAL fever (temp>100.5F) 05/29/18 15:30 06/26/18 07:29 Acetaminophen (Tylenol) 650 mg Q4H PRN RECTAL Mild Pain (Pain Scale 1-3) 05/29/18 15:30 06/26/18 07:29 Acetaminophen (Tylenol) 650 mg Q4H PRN RECTAL fever (temp>100.5F) 05/29/18 15:30 06/26/18 07:29 Albuterol/ Ipratropium (Albuterol/ Ipratropium) 3 ml Q4H PRN INH Shortness of Breath 05/29/18 15:30 06/01/18 07:29 Albuterol/ Ipratropium (Albuterol/ Ipratropium) 3 ml Q8HRT INH 05/29/18 23:00 06/03/18 22:59 Amlodipine Besylate (Norvasc) 10 mg DAILY ORAL 05/30/18 09:00 06/26/18 08:59 Aspirin (ASA) 81 mg DAILY NG 05/30/18 09:00 06/28/18 08:59 Atorvastatin Calcium (Lipitor) 80 mg BEDTIME ORAL 05/29/18 21:00 06/27/18 20:59 Bisacodyl (Dulcolax) 10 mg DAILYPRN PRN RECTAL Constipation 05/29/18 16:30 06/28/18 16:29 Cefazolin Sodium 1 gm/Dextrose 110 ml @ 220 mls/hr Q8HR IVPB 05/29/18 22:00 06/04/18 15:29 Clopidogrel Bisulfate (Plavix) 75 mg DAILY ORAL 05/30/18 09:00 06/26/18 08:59 Dextrose (Dextrose 50%) 25 ml STAT PRN IV Hypoglycemia 05/29/18 16:00 06/28/18 15:59 Dextrose (Dextrose 50%) 50 ml STAT PRN IV Hypoglycemia 05/29/18 16:00 06/28/18 15:59 Docusate Sodium (Colace) 100 mg EVERY 12 HOURS ORAL 05/29/18 21:00 06/26/18 08:59 Furosemide (Lasix) 40 mg DAILY ORAL 05/30/18 09:00 06/26/18 08:59 Heparin Sodium (Porcine) (Heparin 5000 units/ml) 5,000 units EVERY 8 HOURS SUBQ 05/29/18 22:00 06/26/18 13:59 Magnesium Hydroxide (Mom) 30 ml HSPRN PRN ORAL Constipation 05/29/18 16:30 06/28/18 16:29 Mirtazapine (Remeron) 15 mg BEDTIME ORAL 05/29/18 21:00 06/27/18 20:59 Morphine Sulfate (Morphine Sulfate) 4 mg Q3H PRN IVP PAIN 4-10 05/29/18 16:00 06/04/18 15:59 05/29/18 20:21 Ondansetron HCl (Zofran) 4 mg Q6H PRN IVP Nausea & Vomiting 05/29/18 16:30 06/26/18 16:29 Polyethylene Glycol (Miralax) 17 gm DAILYPRN PRN ORAL Constipation 05/30/18 07:30 06/26/18 07:29 Ranolazine (Ranexa ER 500mg) 500 mg Q12HR ORAL 05/29/18 21:00 06/27/18 20:59 Theophylline (Wilfrido-Dur) 100 mg EVERY 12 HOURS ORAL 05/29/18 21:00 06/26/18 08:59 Jessica Parry M.D. May 29, 2018 20:41
[2018-05-29] MEDS: Atorvastatin 80mg tab ORAL SCH (21:33)
--- NOTE | 2018-05-29 21:52 | Infectious Diseases Prog Note ---
Assessment/Plan Assessment/Plan Assessment: Bl leg swelling; R>L R leg cellulitis;improving Dyspnea- -cXR: Findings suggestive of COPD. Correlate clinically. No definite focal consolidation. Afebrile, no leukocytosis REcent B/l Leg cellulitis (L>R), s/p Rx R Ankle chronic ulcer- healing, no signs of infection -R foot xray 03/2018: No acute injury identified. Abnormal fifth MPJ joint which may be on the basis of previous surgery/trauma or old erosive process. Osteoporosis -a. duplex: A mild (10-30%) stenosis is seen in the mid superficial femoral artery. There is no evidence of occlusion within this segment. HTN severe malnutrition MDD tobacco abuse seizure disorder emphysema DM2 CAD s/p CABG COPD -recent exacerbation requiring admission 02/2018 bedbound Plan: -Continue IV Ancef #2/7 for R leg cellulitis -05/16 SP Ancef # 5 -05/12 SP Cefepime and Zosyn x1 -5/3 SP PO Levaquin #3 -03/23/18 SP Zosyn #2 -f/u cx -Monitor CBC/BMP, temperatures -management of swelling per primary and cardiology -wound care per hosp protocol Thank you for this consultation. Will continue to follow along with you. Discussed with RN Subjective Allergies: Coded Allergies: EGG (Verified Allergy, Unknown, 09/22/15) MEPERIDINE (Verified Allergy, Unknown, 12/21/10) NITROGLYCERIN (Verified Allergy, Unknown, hives, 02/18/17) Subjective afebrile no leukocytosis Objective Vital Signs Last 24 Hour Vital Signs Date Time Temp Pulse Resp B/P (MAP) Pulse Ox O2 Delivery O2 Flow Rate FiO2 05/29/18 20:00 98.8 93 19 116/75 (89) 95 98.8 05/29/18 16:38 97.7 05/29/18 16:08 97.7 05/29/18 16:00 98.2 99 20 134/78 (96) 94 98.2 05/29/18 15:24 Room Air 21 05/29/18 15:24 Room Air 21 05/29/18 12:08 97.7 05/29/18 12:00 97.3 20 131/76 (94) 94 97.3 05/29/18 09:07 96 137/81 05/29/18 08:00 98 7/6/18 08:00 97.7 96 20 137/81 94 Room Air 97.7 05/29/18 07:14 Room Air 21 05/29/18 07:14 93 20 95 Room Air 21 05/29/18 04:00 98.1 94 20 148/74 94 Room Air 98.1 05/29/18 04:00 93 05/29/18 00:00 98.6 100 20 153/74 94 Room Air 98.6 05/29/18 00:00 96 05/28/18 23:12 95 18 99 Room Air 21 05/28/18 23:02 98 20 94 Room Air 21 Height (Feet): 6 Height (Inches): 1.00 Weight (Pounds): 133 Objective General Appearance: no apparent distress Lines, tubes and drains: peripheral HEENT: mucous membranes moist Neck: normal inspection Respiratory/Chest: normal breath sounds, no respiratory distress, no accessory muscle use Cardiovascular/Chest: normal rate Abdomen: non tender, soft, no organomegaly, no mass Extremities: trace edema, other - right lateral malleolus ulcer slowly healing. small open area and can see remnent of prior larger wound. palpable but poor peripheral pulses. dry skin Skin Exam: normal pigmentation, warm/dry Neurologic: alert, oriented x 3 Microbiology Date/Time Source Procedure Growth Status 05/27/18 04:30 Nose MRSA Culture - Final NO METHICILLIN RESISTANT STAPH AUREUS... Complete Laboratory Tests Test 05/29/18 05:45 White Blood Count 5.9 K/UL (4.8-10.8) Red Blood Count 4.82 M/UL (4.70-6.10) Hemoglobin 12.9 G/DL (14.2-18.0) L Hematocrit 40.5 % (42.0-52.0) L Mean Corpuscular Volume 84 FL (80-99) Mean Corpuscular Hemoglobin 26.8 PG (27.0-31.0) L Mean Corpuscular Hemoglobin Concent 31.9 G/DL (32.0-36.0) L Red Cell Distribution Width 17.0 % (11.6-14.8) H Platelet Count 286 K/UL (150-450) Mean Platelet Volume 6.9 FL (6.5-10.1) Neutrophils (%) (Auto) 41.8 % (45.0-75.0) L Lymphocytes (%) (Auto) 35.7 % (20.0-45.0) Monocytes (%) (Auto) 15.1 % (1.0-10.0) H Eosinophils (%) (Auto) 4.8 % (0.0-3.0) H Basophils (%) (Auto) 2.6 % (0.0-2.0) H Sodium Level 137 MMOL/L (136-145) Potassium Level 4.9 MMOL/L (3.5-5.1) Chloride Level 102 MMOL/L (98-107) Carbon Dioxide Level 27 MMOL/L (21-32) Anion Gap 8 mmol/L (5-15) Blood Urea Nitrogen 26 mg/dL (7-18) H Creatinine 1.7 MG/DL (0.55-1.30) H Estimat Glomerular Filtration Rate 48.8 mL/min (>60) Glucose Level 117 MG/DL (74-106) H Calcium Level 8.7 MG/DL (8.5-10.1) Current Medications Medications (Trade) Dose Ordered Sig/Aminata Route PRN Reason Start Time Stop Time Status Last Admin Dose Admin Acetaminophen (Tylenol) 650 mg Q4H PRN ORAL Mild Pain (Pain Scale 1-3) 05/29/18 15:30 06/26/18 07:29 Acetaminophen (Tylenol) 650 mg Q4H PRN ORAL fever (temp>100.5F) 05/29/18 15:30 06/26/18 07:29 Acetaminophen (Tylenol) 650 mg Q4H PRN RECTAL Mild Pain (Pain Scale 1-3) 05/29/18 15:30 06/26/18 07:29 Acetaminophen (Tylenol) 650 mg Q4H PRN RECTAL fever (temp>100.5F) 05/29/18 15:30 06/26/18 07:29 Albuterol/ Ipratropium (Albuterol/ Ipratropium) 3 ml Q4H PRN INH Shortness of Breath 05/29/18 15:30 06/01/18 07:29 Albuterol/ Ipratropium (Albuterol/ Ipratropium) 3 ml Q8HRT INH 05/29/18 23:00 06/03/18 22:59 Amlodipine Besylate (Norvasc) 10 mg DAILY ORAL 05/30/18 09:00 06/26/18 08:59 Aspirin (ASA) 81 mg DAILY NG 05/30/18 09:00 06/28/18 08:59 Atorvastatin Calcium (Lipitor) 80 mg BEDTIME ORAL 05/29/18 21:00 06/27/18 20:59 05/29/18 21:33 Bisacodyl (Dulcolax) 10 mg DAILYPRN PRN RECTAL Constipation 05/29/18 16:30 06/28/18 16:29 Cefazolin Sodium 1 gm/Dextrose 110 ml @ 220 mls/hr Q8HR IVPB 05/29/18 22:00 06/04/18 15:29 05/29/18 21:36 Clopidogrel Bisulfate (Plavix) 75 mg DAILY ORAL 05/30/18 09:00 06/26/18 08:59 Dextrose (Dextrose 50%) 25 ml STAT PRN IV Hypoglycemia 05/29/18 16:00 06/28/18 15:59 Dextrose (Dextrose 50%) 50 ml STAT PRN IV Hypoglycemia 05/29/18 16:00 06/28/18 15:59 Docusate Sodium (Colace) 100 mg EVERY 12 HOURS ORAL 05/29/18 21:00 06/26/18 08:59 05/29/18 21:32 Furosemide (Lasix) 40 mg DAILY ORAL 05/30/18 09:00 06/26/18 08:59 Heparin Sodium (Porcine) (Heparin 5000 units/ml) 5,000 units EVERY 8 HOURS SUBQ 05/29/18 22:00 06/26/18 13:59 05/29/18 21:35 Magnesium Hydroxide (Mom) 30 ml HSPRN PRN ORAL Constipation 05/29/18 16:30 06/28/18 16:29 Mirtazapine (Remeron) 15 mg BEDTIME ORAL 05/29/18 21:00 06/27/18 20:59 05/29/18 21:33 Morphine Sulfate (Morphine Sulfate) 4 mg Q3H PRN IVP PAIN 4-10 05/29/18 16:00 06/04/18 15:59 05/29/18 20:21 Ondansetron HCl (Zofran) 4 mg Q6H PRN IVP Nausea & Vomiting 05/29/18 16:30 06/26/18 16:29 Polyethylene Glycol (Miralax) 17 gm DAILYPRN PRN ORAL Constipation 05/30/18 07:30 06/26/18 07:29 Ranolazine (Ranexa ER 500mg) 500 mg Q12HR ORAL 05/29/18 21:00 06/27/18 20:59 05/29/18 21:40 Theophylline (Wilfrido-Dur) 100 mg EVERY 12 HOURS ORAL 05/29/18 21:00 06/26/18 08:59 05/29/18 21:33 Jessica Parry M.D. May 29, 2018 21:52
[2018-05-30] VITALS: BP 125/73
[2018-05-30] MEDS: Morphine Sulfate 4mg/ml Inj (IV USE ONLY) IVP PRN ×7 (00:35→22:12)
[2018-05-30 04:00] VITALS: BP 128/78
[2018-05-30] MEDS: ceFAZolin sod 1 GM in D5W 110 ML IVPB SCH ×3 (05:42→22:12)
[2018-05-30] MEDS: Heparin 5000 units/ml inj SUBQ SCH ×3 (06:00→22:00)
[2018-05-30] MEDS: Albuterol/Ipratropium 3ml neb INH SCH ×3 (07:00→23:00)
[2018-05-30 07:13] LABS: ANION GAP 7 mmol/L (5-15); BLOOD UREA NITROGEN 22 mg/dL (7-18); CALCIUM 8.9 MG/DL (8.5-10.1); CARBON DIOXIDE 27 MMOL/L (21-32); CHLORIDE 100 MMOL/L (98-107); CREATININE 1.5 MG/DL (0.55-1.30); POTASSIUM 4.9 MMOL/L (3.5-5.1); SODIUM 134 MMOL/L (136-145)
[2018-05-30 07:29] LABS: BASOPHILS % (AUTO) 1.9 % (0.0-2.0); EOSINOPHILS % (AUTO) 5.7 % (0.0-3.0); HEMATOCRIT 42.2 % (42.0-52.0); LYMPHOCYTES % (AUTO) 36.8 % (20.0-45.0); MEAN CORPUSCULAR VOLUME 84 FL (80-99); MONOCYTES % (AUTO) 17.5 % (1.0-10.0); NEUTROPHILS % (AUTO) 38.1 % (45.0-75.0); PLATELET COUNT 277 K/UL (150-450); RED BLOOD COUNT 5.01 M/UL (4.70-6.10); RED CELL DISTRIBUTION WIDTH 16.5 % (11.6-14.8); WHITE BLOOD COUNT 5.6 K/UL (4.8-10.8)
[2018-05-30] MEDS ORDERED: Miralax 17gm pkt ORAL PRN (07:30)
[2018-05-30 08:00] VITALS: BP 118/73
[2018-05-30] MEDS: Aspirin Baby 81mg NG SCH (08:45)
[2018-05-30] MEDS: Docusate 100mg cap ORAL SCH ×2 (08:45→21:13)
[2018-05-30] MEDS: Ranolazine 500mg tab ORAL SCH ×2 (08:45→21:13)
[2018-05-30] MEDS: Furosemide 40mg tab ORAL SCH (08:45)
[2018-05-30] MEDS: Theophylline ER 100mg ORAL SCH ×2 (08:46→21:13)
[2018-05-30 12:00] VITALS: BP 113/77
--- NOTE | 2018-05-30 12:46 | Internal Med Progress Note ---
Subjective Date of Service: May 30, 2018 Physician Name Shantanu Reyna Attending Physician Phil Wright MD Current Medications Medications (Trade) Dose Ordered Sig/Aminata Route PRN Reason Start Time Stop Time Status Last Admin Dose Admin Acetaminophen (Tylenol) 650 mg Q4H PRN ORAL Mild Pain (Pain Scale 1-3) 05/29/18 15:30 06/26/18 07:29 Acetaminophen (Tylenol) 650 mg Q4H PRN ORAL fever (temp>100.5F) 05/29/18 15:30 06/26/18 07:29 Acetaminophen (Tylenol) 650 mg Q4H PRN RECTAL Mild Pain (Pain Scale 1-3) 05/29/18 15:30 06/26/18 07:29 Acetaminophen (Tylenol) 650 mg Q4H PRN RECTAL fever (temp>100.5F) 05/29/18 15:30 06/26/18 07:29 Albuterol/ Ipratropium (Albuterol/ Ipratropium) 3 ml Q4H PRN INH Shortness of Breath 05/29/18 15:30 06/01/18 07:29 Albuterol/ Ipratropium (Albuterol/ Ipratropium) 3 ml Q8HRT INH 05/29/18 23:00 06/03/18 22:59 Amlodipine Besylate (Norvasc) 10 mg DAILY ORAL 05/30/18 09:00 06/26/18 08:59 05/30/18 08:46 Aspirin (ASA) 81 mg DAILY NG 05/30/18 09:00 06/28/18 08:59 05/30/18 08:45 Atorvastatin Calcium (Lipitor) 80 mg BEDTIME ORAL 05/29/18 21:00 06/27/18 20:59 05/29/18 21:33 Bisacodyl (Dulcolax) 10 mg DAILYPRN PRN RECTAL Constipation 05/29/18 16:30 06/28/18 16:29 Cefazolin Sodium 1 gm/Dextrose 110 ml @ 220 mls/hr Q8HR IVPB 05/29/18 22:00 06/04/18 15:29 05/30/18 05:42 Clopidogrel Bisulfate (Plavix) 75 mg DAILY ORAL 05/30/18 09:00 06/26/18 08:59 05/30/18 08:46 Dextrose (Dextrose 50%) 25 ml STAT PRN IV Hypoglycemia 05/29/18 16:00 06/28/18 15:59 Dextrose (Dextrose 50%) 50 ml STAT PRN IV Hypoglycemia 05/29/18 16:00 06/28/18 15:59 Docusate Sodium (Colace) 100 mg EVERY 12 HOURS ORAL 05/29/18 21:00 06/26/18 08:59 05/30/18 08:45 Furosemide (Lasix) 40 mg DAILY ORAL 05/30/18 09:00 06/26/18 08:59 05/30/18 08:45 Heparin Sodium (Porcine) (Heparin 5000 units/ml) 5,000 units EVERY 8 HOURS SUBQ 05/29/18 22:00 06/26/18 13:59 05/29/18 21:35 Magnesium Hydroxide (Mom) 30 ml HSPRN PRN ORAL Constipation 05/29/18 16:30 06/28/18 16:29 Mirtazapine (Remeron) 15 mg BEDTIME ORAL 05/29/18 21:00 06/27/18 20:59 05/29/18 21:33 Morphine Sulfate (Morphine Sulfate) 4 mg Q3H PRN IVP PAIN 4-10 05/29/18 16:00 06/04/18 15:59 05/30/18 11:52 Ondansetron HCl (Zofran) 4 mg Q6H PRN IVP Nausea & Vomiting 05/29/18 16:30 06/26/18 16:29 Polyethylene Glycol (Miralax) 17 gm DAILYPRN PRN ORAL Constipation 05/30/18 07:30 06/26/18 07:29 Ranolazine (Ranexa ER 500mg) 500 mg Q12HR ORAL 05/29/18 21:00 06/27/18 20:59 05/30/18 08:45 Theophylline (Wilfrido-Dur) 100 mg EVERY 12 HOURS ORAL 05/29/18 21:00 06/26/18 08:59 05/30/18 08:46 Allergies: Coded Allergies: EGG (Verified Allergy, Unknown, 09/22/15) MEPERIDINE (Verified Allergy, Unknown, 12/21/10) NITROGLYCERIN (Verified Allergy, Unknown, hives, 02/18/17) ROS Limited/Unobtainable: No Constitutional: Reports: no symptoms HEENT: Reports: no symptoms Cardiovascular: Reports: no symptoms Respiratory: Reports: no symptoms Gastrointestinal/Abdominal: Reports: no symptoms Genitourinary: Reports: no symptoms 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: Reports: no symptoms Subjective 67 YO M admitted with chest pain and bilateral leg swelling. Cover for Int Vera Wright Objective Last Vital Signs Date Time Temp Pulse Resp B/P (MAP) Pulse Ox O2 Delivery O2 Flow Rate FiO2 05/30/18 12:00 98.0 85 18 113/77 (89) 95 98.0 05/30/18 08:00 Room Air 05/30/18 07:20 21 Laboratory Tests Test 05/30/18 06:05 White Blood Count 5.6 K/UL (4.8-10.8) Red Blood Count 5.01 M/UL (4.70-6.10) Hemoglobin 13.0 G/DL (14.2-18.0) L Hematocrit 42.2 % (42.0-52.0) Mean Corpuscular Volume 84 FL (80-99) Mean Corpuscular Hemoglobin 26.0 PG (27.0-31.0) L Mean Corpuscular Hemoglobin Concent 30.9 G/DL (32.0-36.0) L Red Cell Distribution Width 16.5 % (11.6-14.8) H Platelet Count 277 K/UL (150-450) Mean Platelet Volume 6.6 FL (6.5-10.1) Neutrophils (%) (Auto) 38.1 % (45.0-75.0) L Lymphocytes (%) (Auto) 36.8 % (20.0-45.0) Monocytes (%) (Auto) 17.5 % (1.0-10.0) H Eosinophils (%) (Auto) 5.7 % (0.0-3.0) H Basophils (%) (Auto) 1.9 % (0.0-2.0) Sodium Level 134 MMOL/L (136-145) L Potassium Level 4.9 MMOL/L (3.5-5.1) Chloride Level 100 MMOL/L (98-107) Carbon Dioxide Level 27 MMOL/L (21-32) Anion Gap 7 mmol/L (5-15) Blood Urea Nitrogen 22 mg/dL (7-18) H Creatinine 1.5 MG/DL (0.55-1.30) H Estimat Glomerular Filtration Rate 56.4 mL/min (>60) Glucose Level 106 MG/DL (74-106) Calcium Level 8.9 MG/DL (8.5-10.1) Intake and Output 05/29/18 05/30/18 19:00 07:00 Intake Total 710 ml Output Total 600 ml Balance 110 ml Intake Oral 600 ml IV Total 110 ml Output Urine Total 600 ml # Voids 2 Objective General Appearance: alert, mild distress, thin EENT: PERRL/EOMI, normal ENT inspection Neck: non-tender, normal alignment, supple, normal inspection Cardiovascular: normal peripheral pulses, normal rate, regular rhythm, no gallop/murmur, no JVD Respiratory/Chest: chest wall non-tender, lungs clear, normal breath sounds, no respiratory distress, no accessory muscle use Abdomen: normal bowel sounds, non tender, soft, no organomegaly, no mass Extremities: normal range of motion, non-tender Edema: trace edema 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 Ruled out for ACS (2) Cellulitis of right ankle Assessment & Plan: See ID note - continue ancef (3) HTN (hypertension) Assessment & Plan: Continue norvasc (4) CAD (coronary artery disease) Assessment & Plan: Continue plavix (5) COPD exacerbation (6) Nonhealing ulcer of right lower extremity Assessment & Plan: Await podiatry consult. See ID note-continue ancef (7) Edema Status: stable Shantanu Reyna MD May 30, 2018 12:46
--- NOTE | 2018-05-30 14:14 | Cardiology Progress Note ---
Assessment/Plan Status: stable Assessment/Plan Assessment: (1) Cellulitis of right leg (2) Chronic ulcer of right leg (3) Hypothyroidism (4) Severe malnutrition (5) HTN (hypertension) (6) Chronic pain (7) ACS (acute coronary syndrome) (8) Cellulitis of right ankle (9) Ulcer of right lower leg (10) Edema (11) CHF (congestive heart failure) Plan: Continue dual antiplatelet therapy Outpatient stress test to evaluate status of stens and bypass grafts Trend troponin nitro prn CP Statin Continue BP medication Continue ranexa for refractory chest pain Wound care Subjective Cardiovascular: Reports: no symptoms Respiratory: Reports: no symptoms Gastrointestinal/Abdominal: Reports: no symptoms Genitourinary: Reports: no symptoms Subjective No acute events NO chest pain Patient does not want stress test Wound dressing in place No complaints Objective Last 24 Hour Vital Signs Date Time Temp Pulse Resp B/P (MAP) Pulse Ox O2 Delivery O2 Flow Rate FiO2 05/30/18 12:00 98.0 85 18 113/77 (89) 95 98.0 05/30/18 08:46 85 118/73 05/30/18 08:00 98.6 85 19 118/73 (88) 96 98.6 05/30/18 08:00 Room Air 05/30/18 07:20 Room Air 21 05/30/18 07:19 Room Air 21 05/30/18 04:00 98.0 70 20 128/78 (95) 95 98.0 05/30/18 00:00 98.3 89 19 125/73 (90) 92 98.3 05/29/18 23:33 Room Air 21 05/29/18 23:33 Room Air 21 05/29/18 21:00 Room Air 05/29/18 20:00 98.8 93 19 116/75 (89) 95 98.8 05/29/18 16:38 97.7 05/29/18 16:08 97.7 05/29/18 16:00 98.2 99 20 134/78 (96) 94 98.2 05/29/18 15:24 Room Air 21 05/29/18 15:24 Room Air 21 General Appearance: no apparent distress EENT: PERRL/EOMI Neck: non-tender Rhythm: NSR Cardiovascular: normal peripheral pulses Respiratory/Chest: chest wall non-tender Abdomen: normal bowel sounds Extremities: normal range of motion 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 Intake and Output 05/29/18 05/30/18 19:00 07:00 Intake Total 710 ml Output Total 600 ml Balance 110 ml Intake Oral 600 ml IV Total 110 ml Output Urine Total 600 ml # Voids 2 Laboratory Tests Test 05/30/18 06:05 White Blood Count 5.6 K/UL (4.8-10.8) Red Blood Count 5.01 M/UL (4.70-6.10) Hemoglobin 13.0 G/DL (14.2-18.0) L Hematocrit 42.2 % (42.0-52.0) Mean Corpuscular Volume 84 FL (80-99) Mean Corpuscular Hemoglobin 26.0 PG (27.0-31.0) L Mean Corpuscular Hemoglobin Concent 30.9 G/DL (32.0-36.0) L Red Cell Distribution Width 16.5 % (11.6-14.8) H Platelet Count 277 K/UL (150-450) Mean Platelet Volume 6.6 FL (6.5-10.1) Neutrophils (%) (Auto) 38.1 % (45.0-75.0) L Lymphocytes (%) (Auto) 36.8 % (20.0-45.0) Monocytes (%) (Auto) 17.5 % (1.0-10.0) H Eosinophils (%) (Auto) 5.7 % (0.0-3.0) H Basophils (%) (Auto) 1.9 % (0.0-2.0) Sodium Level 134 MMOL/L (136-145) L Potassium Level 4.9 MMOL/L (3.5-5.1) Chloride Level 100 MMOL/L (98-107) Carbon Dioxide Level 27 MMOL/L (21-32) Anion Gap 7 mmol/L (5-15) Blood Urea Nitrogen 22 mg/dL (7-18) H Creatinine 1.5 MG/DL (0.55-1.30) H Estimat Glomerular Filtration Rate 56.4 mL/min (>60) Glucose Level 106 MG/DL (74-106) Calcium Level 8.9 MG/DL (8.5-10.1) Adonis Winn M.D. May 30, 2018 14:14
[2018-05-30 16:00] VITALS: BP 153/85
--- NOTE | 2018-05-30 18:39 | General Surgery Progress Note ---
General Surgery-Progress Note Subjective Symptoms: improved Additional Comments states he fells better. edema improving. mild pain in left leg but improving. Objective Last 24 Hour Vital Signs Date Time Temp Pulse Resp B/P (MAP) Pulse Ox O2 Delivery O2 Flow Rate FiO2 05/30/18 16:00 96.7 89 17 153/85 (107) 98 96.7 05/30/18 14:45 95 20 99 Room Air 21 05/30/18 14:39 91 20 95 Room Air 21 05/30/18 12:00 98.0 85 18 113/77 (89) 95 98.0 05/30/18 08:46 85 118/73 05/30/18 08:00 98.6 85 19 118/73 (88) 96 98.6 05/30/18 08:00 Room Air 05/30/18 07:20 Room Air 21 05/30/18 07:19 Room Air 21 05/30/18 04:00 98.0 70 20 128/78 (95) 95 98.0 05/30/18 00:00 98.3 89 19 125/73 (90) 92 98.3 05/29/18 23:33 Room Air 21 05/29/18 23:33 Room Air 21 05/29/18 21:00 Room Air 05/29/18 20:00 98.8 93 19 116/75 (89) 95 98.8 I&O Intake and Output 05/29/18 05/30/18 19:00 07:00 Intake Total 710 ml Output Total 600 ml Balance 110 ml Intake Oral 600 ml IV Total 110 ml Output Urine Total 600 ml # Voids 2 Dressing: dry Wound: clean Drains: none Cardiovascular: RSR Respiratory: clear Abdomen: soft, flat, non-tender Extremities: no edema, no cyanosis, pulses Laboratory Tests Test 05/30/18 06:05 White Blood Count 5.6 K/UL (4.8-10.8) Red Blood Count 5.01 M/UL (4.70-6.10) Hemoglobin 13.0 G/DL (14.2-18.0) L Hematocrit 42.2 % (42.0-52.0) Mean Corpuscular Volume 84 FL (80-99) Mean Corpuscular Hemoglobin 26.0 PG (27.0-31.0) L Mean Corpuscular Hemoglobin Concent 30.9 G/DL (32.0-36.0) L Red Cell Distribution Width 16.5 % (11.6-14.8) H Platelet Count 277 K/UL (150-450) Mean Platelet Volume 6.6 FL (6.5-10.1) Neutrophils (%) (Auto) 38.1 % (45.0-75.0) L Lymphocytes (%) (Auto) 36.8 % (20.0-45.0) Monocytes (%) (Auto) 17.5 % (1.0-10.0) H Eosinophils (%) (Auto) 5.7 % (0.0-3.0) H Basophils (%) (Auto) 1.9 % (0.0-2.0) Sodium Level 134 MMOL/L (136-145) L Potassium Level 4.9 MMOL/L (3.5-5.1) Chloride Level 100 MMOL/L (98-107) Carbon Dioxide Level 27 MMOL/L (21-32) Anion Gap 7 mmol/L (5-15) Blood Urea Nitrogen 22 mg/dL (7-18) H Creatinine 1.5 MG/DL (0.55-1.30) H Estimat Glomerular Filtration Rate 56.4 mL/min (>60) Glucose Level 106 MG/DL (74-106) Calcium Level 8.9 MG/DL (8.5-10.1) Plan Problems: (1) Nonhealing ulcer of right lower extremity Assessment & Plan: 67 M with slowly healing right lateral ankle wound. states >2 years but healing. can see area of larger wound that has been slowly healing. some mild cellulitis. mild trace edema. proximally dry. venous duplex / arterial duplex studies done within last few weeks and reviewed. calcified vessels distally but still has flow. -no acute surgical intervention necessary. -honey gel and foam dressing over ulcer -skin protectant and lotion -keep pressure off wound -okay to shower -will monitor while in hospital. thank you for this consultation. Ugo Simms May 30, 2018 18:39
--- NOTE | 2018-05-30 19:23 | Pulmonology Progress Note ---
Assessment/Plan Problems: (1) COPD exacerbation (2) Nonhealing ulcer of right lower extremity (3) Diabetic foot ulcer (4) CAD (coronary artery disease) (5) DM (diabetes mellitus) (6) HTN (hypertension) Assessment/Plan less short of breath in better spirit less sob doing better wound care ID evaluation appreciated surgical evaluation appreciated pain management Subjective ROS Limited/Unobtainable: No Allergies: Coded Allergies: EGG (Verified Allergy, Unknown, 09/22/15) MEPERIDINE (Verified Allergy, Unknown, 12/21/10) NITROGLYCERIN (Verified Allergy, Unknown, hives, 02/18/17) Objective Last 24 Hour Vital Signs Date Time Temp Pulse Resp B/P (MAP) Pulse Ox O2 Delivery O2 Flow Rate FiO2 05/30/18 16:00 96.7 89 17 153/85 (107) 98 96.7 05/30/18 14:45 95 20 99 Room Air 21 05/30/18 14:39 91 20 95 Room Air 21 05/30/18 12:00 98.0 85 18 113/77 (89) 95 98.0 05/30/18 08:46 85 118/73 05/30/18 08:00 98.6 85 19 118/73 (88) 96 98.6 05/30/18 08:00 Room Air 05/30/18 07:20 Room Air 21 05/30/18 07:19 Room Air 21 05/30/18 04:00 98.0 70 20 128/78 (95) 95 98.0 05/30/18 00:00 98.3 89 19 125/73 (90) 92 98.3 05/29/18 23:33 Room Air 21 05/29/18 23:33 Room Air 21 05/29/18 21:00 Room Air 05/29/18 20:00 98.8 93 19 116/75 (89) 95 98.8 Intake and Output 05/29/18 05/30/18 19:00 07:00 Intake Total 710 ml Output Total 600 ml Balance 110 ml Intake Oral 600 ml IV Total 110 ml Output Urine Total 600 ml # Voids 2 Objective General Appearance: WD/WN HEENT: normocephalic, atraumatic Respiratory/Chest: chest wall non-tender, lungs clear Breasts: no masses Cardiovascular: normal peripheral pulses, normal rate Abdomen: normal bowel sounds, no organomegaly 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 Lymphatic: no neck adenopathy Laboratory Tests 05/30/18 06:05: White Blood Count 5.6, Red Blood Count 5.01, Hemoglobin 13.0L, Hematocrit 42.2, Mean Corpuscular Volume 84, Mean Corpuscular Hemoglobin 26.0L, Mean Corpuscular Hemoglobin Concent 30.9L, Red Cell Distribution Width 16.5H, Platelet Count 277 , Mean Platelet Volume 6.6, Neutrophils (%) (Auto) 38.1L, Lymphocytes (%) (Auto ) 36.8, Monocytes (%) (Auto) 17.5H, Eosinophils (%) (Auto) 5.7H, Basophils (%) ( Auto) 1.9, Sodium Level 134L, Potassium Level 4.9, Chloride Level 100, Carbon Dioxide Level 27, Anion Gap 7, Blood Urea Nitrogen 22H, Creatinine 1.5H, Estimat Glomerular Filtration Rate 56.4, Glucose Level 106, Calcium Level 8.9 Current Medications Medications (Trade) Dose Ordered Sig/Aminata Route PRN Reason Start Time Stop Time Status Last Admin Dose Admin Acetaminophen (Tylenol) 650 mg Q4H PRN ORAL Mild Pain (Pain Scale 1-3) 05/29/18 15:30 06/26/18 07:29 Acetaminophen (Tylenol) 650 mg Q4H PRN ORAL fever (temp>100.5F) 05/29/18 15:30 06/26/18 07:29 Acetaminophen (Tylenol) 650 mg Q4H PRN RECTAL Mild Pain (Pain Scale 1-3) 05/29/18 15:30 06/26/18 07:29 Acetaminophen (Tylenol) 650 mg Q4H PRN RECTAL fever (temp>100.5F) 05/29/18 15:30 06/26/18 07:29 Albuterol/ Ipratropium (Albuterol/ Ipratropium) 3 ml Q4H PRN INH Shortness of Breath 05/29/18 15:30 06/01/18 07:29 Albuterol/ Ipratropium (Albuterol/ Ipratropium) 3 ml Q8HRT INH 05/29/18 23:00 06/03/18 22:59 05/30/18 14:39 Amlodipine Besylate (Norvasc) 10 mg DAILY ORAL 05/30/18 09:00 8/3/18 08:59 05/30/18 08:46 Aspirin (ASA) 81 mg DAILY NG 05/30/18 09:00 06/28/18 08:59 05/30/18 08:45 Atorvastatin Calcium (Lipitor) 80 mg BEDTIME ORAL 05/29/18 21:00 06/27/18 20:59 05/29/18 21:33 Bisacodyl (Dulcolax) 10 mg DAILYPRN PRN RECTAL Constipation 05/29/18 16:30 06/28/18 16:29 Cefazolin Sodium 1 gm/Dextrose 110 ml @ 220 mls/hr Q8HR IVPB 05/29/18 22:00 06/04/18 15:29 05/30/18 13:42 Clopidogrel Bisulfate (Plavix) 75 mg DAILY ORAL 05/30/18 09:00 06/26/18 08:59 05/30/18 08:46 Dextrose (Dextrose 50%) 25 ml STAT PRN IV Hypoglycemia 05/29/18 16:00 06/28/18 15:59 Dextrose (Dextrose 50%) 50 ml STAT PRN IV Hypoglycemia 05/29/18 16:00 06/28/18 15:59 Docusate Sodium (Colace) 100 mg EVERY 12 HOURS ORAL 05/29/18 21:00 06/26/18 08:59 05/30/18 08:45 Furosemide (Lasix) 40 mg DAILY ORAL 05/30/18 09:00 06/26/18 08:59 05/30/18 08:45 Heparin Sodium (Porcine) (Heparin 5000 units/ml) 5,000 units EVERY 8 HOURS SUBQ 05/29/18 22:00 06/26/18 13:59 05/29/18 21:35 Magnesium Hydroxide (Mom) 30 ml HSPRN PRN ORAL Constipation 05/29/18 16:30 06/28/18 16:29 Mirtazapine (Remeron) 15 mg BEDTIME ORAL 05/29/18 21:00 06/27/18 20:59 05/29/18 21:33 Morphine Sulfate (Morphine Sulfate) 4 mg Q3H PRN IVP PAIN 4-10 05/29/18 16:00 06/04/18 15:59 05/30/18 19:04 Ondansetron HCl (Zofran) 4 mg Q6H PRN IVP Nausea & Vomiting 05/29/18 16:30 06/26/18 16:29 Polyethylene Glycol (Miralax) 17 gm DAILYPRN PRN ORAL Constipation 05/30/18 07:30 06/26/18 07:29 Ranolazine (Ranexa ER 500mg) 500 mg Q12HR ORAL 05/29/18 21:00 06/27/18 20:59 05/30/18 08:45 Theophylline (Wilfrido-Dur) 100 mg EVERY 12 HOURS ORAL 05/29/18 21:00 06/26/18 08:59 05/30/18 08:46 Jessie Magana MD May 30, 2018 19:23
[2018-05-30 20:00] VITALS: BP 120/79
[2018-05-30] MEDS: Atorvastatin 80mg tab ORAL SCH (21:13)
--- NOTE | 2018-05-30 23:25 | General Progress Note ---
Assessment/Plan Assessment/Plan mdd anxiety insomnia -remeron 15mg qhs ptovided ro/st Subjective Date patient seen: May 30, 2018 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: Reports: anxiety, depressed, emotional problems Allergies: Coded Allergies: EGG (Verified Allergy, Unknown, 09/22/15) MEPERIDINE (Verified Allergy, Unknown, 12/21/10) NITROGLYCERIN (Verified Allergy, Unknown, hives, 02/18/17) Objective Last 24 Hour Vital Signs Date Time Temp Pulse Resp B/P (MAP) Pulse Ox O2 Delivery O2 Flow Rate FiO2 05/30/18 21:00 Room Air 05/30/18 20:00 98.5 98 18 120/79 (93) 95 98.5 05/30/18 16:00 96.7 89 17 153/85 (107) 98 96.7 05/30/18 14:45 95 20 99 Room Air 21 05/30/18 14:39 91 20 95 Room Air 21 05/30/18 12:00 98.0 85 18 113/77 (89) 95 98.0 05/30/18 08:46 85 118/73 05/30/18 08:00 98.6 85 19 118/73 (88) 96 98.6 05/30/18 08:00 Room Air 05/30/18 07:20 Room Air 21 05/30/18 07:19 Room Air 21 05/30/18 04:00 98.0 70 20 128/78 (95) 95 98.0 05/30/18 00:00 98.3 89 19 125/73 (90) 92 98.3 05/29/18 23:33 Room Air 21 05/29/18 23:33 Room Air 21 Intake and Output 05/29/18 05/30/18 19:00 07:00 Intake Total 710 ml Output Total 600 ml Balance 110 ml Intake Oral 600 ml IV Total 110 ml Output Urine Total 600 ml # Voids 2 Laboratory Tests 05/30/18 06:05: White Blood Count 5.6, Red Blood Count 5.01, Hemoglobin 13.0L, Hematocrit 42.2, Mean Corpuscular Volume 84, Mean Corpuscular Hemoglobin 26.0L, Mean Corpuscular Hemoglobin Concent 30.9L, Red Cell Distribution Width 16.5H, Platelet Count 277 , Mean Platelet Volume 6.6, Neutrophils (%) (Auto) 38.1L, Lymphocytes (%) (Auto ) 36.8, Monocytes (%) (Auto) 17.5H, Eosinophils (%) (Auto) 5.7H, Basophils (%) ( Auto) 1.9, Sodium Level 134L, Potassium Level 4.9, Chloride Level 100, Carbon Dioxide Level 27, Anion Gap 7, Blood Urea Nitrogen 22H, Creatinine 1.5H, Estimat Glomerular Filtration Rate 56.4, Glucose Level 106, Calcium Level 8.9 Height (Feet): 6 Height (Inches): 1.00 Weight (Pounds): 133 General Appearance: no apparent distress, alert Neurologic: oriented x 3, depressed affect Rachael Buckley MD May 30, 2018 23:25
[2018-05-31] VITALS: BP 129/77
[2018-05-31] MEDS: Morphine Sulfate 4mg/ml Inj (IV USE ONLY) IVP PRN ×6 (02:06→21:04)
[2018-05-31 04:00] VITALS: BP 132/79
[2018-05-31] MEDS: ceFAZolin sod 1 GM in D5W 110 ML IVPB SCH ×3 (05:32→22:27)
[2018-05-31] MEDS: Heparin 5000 units/ml inj SUBQ SCH ×3 (06:00→22:00)
[2018-05-31] MEDS: Albuterol/Ipratropium 3ml neb INH SCH ×3 (07:00→23:00)
[2018-05-31 08:00] VITALS: BP 108/66
[2018-05-31] MEDS: Theophylline ER 100mg ORAL SCH ×2 (08:29→21:03)
[2018-05-31] MEDS: Aspirin Baby 81mg NG SCH (08:29)
[2018-05-31] MEDS: Ranolazine 500mg tab ORAL SCH ×2 (08:30→21:03)
[2018-05-31] MEDS: Docusate 100mg cap ORAL SCH ×2 (08:30→21:04)
[2018-05-31] MEDS: Furosemide 40mg tab ORAL SCH (08:30)
[2018-05-31 08:39] LABS: BASOPHILS % (AUTO) 2.2 % (0.0-2.0); EOSINOPHILS % (AUTO) 7.4 % (0.0-3.0); HEMATOCRIT 45.9 % (42.0-52.0); HEMOGLOBIN 14.4 G/DL (14.2-18.0); LYMPHOCYTES % (AUTO) 37.6 % (20.0-45.0); MEAN CORPUSCULAR VOLUME 84 FL (80-99); MONOCYTES % (AUTO) 9.1 % (1.0-10.0); NEUTROPHILS % (AUTO) 43.8 % (45.0-75.0); PLATELET COUNT 294 K/UL (150-450); RED BLOOD COUNT 5.45 M/UL (4.70-6.10); RED CELL DISTRIBUTION WIDTH 17.1 % (11.6-14.8); WHITE BLOOD COUNT 5.5 K/UL (4.8-10.8)
[2018-05-31 08:57] LABS: ANION GAP 8 mmol/L (5-15); BLOOD UREA NITROGEN 24 mg/dL (7-18); CALCIUM 9.5 MG/DL (8.5-10.1); CARBON DIOXIDE 26 MMOL/L (21-32); CHLORIDE 99 MMOL/L (98-107); CREATININE 1.6 MG/DL (0.55-1.30); POTASSIUM 4.3 MMOL/L (3.5-5.1); SODIUM 133 MMOL/L (136-145)
[2018-05-31 11:56] VITALS: BP 142/80
--- NOTE | 2018-05-31 12:44 | General Surgery Progress Note ---
General Surgery-Progress Note Subjective Symptoms: improved Additional Comments doing well. no acute events. Objective Last 24 Hour Vital Signs Date Time Temp Pulse Resp B/P (MAP) Pulse Ox O2 Delivery O2 Flow Rate FiO2 05/31/18 11:56 97.5 99 21 142/80 (100) 99 97.5 05/31/18 11:49 97.7 05/31/18 09:10 94 124/68 05/31/18 09:00 Room Air 05/31/18 09:00 97.7 05/31/18 08:30 97.7 05/31/18 08:00 97.7 94 20 108/66 (80) 97 97.7 05/31/18 07:40 Room Air 21 05/31/18 07:40 Room Air 21 05/31/18 04:00 98.1 91 18 132/79 (96) 95 98.1 05/31/18 00:00 98.3 102 18 129/77 (94) 94 98.3 05/30/18 23:48 94 20 98 Room Air 21 05/30/18 23:48 Room Air 21 05/30/18 21:00 Room Air 05/30/18 20:00 98.5 98 18 120/79 (93) 95 98.5 05/30/18 16:00 96.7 89 17 153/85 (107) 98 96.7 05/30/18 14:45 95 20 99 Room Air 21 05/30/18 14:39 91 20 95 Room Air 21 I&O Intake and Output 05/30/18 05/31/18 19:00 07:00 Intake Total 700 ml 600 ml Output Total 1100 ml Balance 700 ml -500 ml Intake Oral 600 ml Other 700 ml Output Urine Total 1100 ml # Voids 3 Wound: clean, dry Drains: none Cardiovascular: RSR Respiratory: clear Abdomen: soft, flat Extremities: tenderness, no edema, no cyanosis Laboratory Tests Test 05/31/18 07:35 White Blood Count 5.5 K/UL (4.8-10.8) Red Blood Count 5.45 M/UL (4.70-6.10) Hemoglobin 14.4 G/DL (14.2-18.0) Hematocrit 45.9 % (42.0-52.0) Mean Corpuscular Volume 84 FL (80-99) Mean Corpuscular Hemoglobin 26.3 PG (27.0-31.0) L Mean Corpuscular Hemoglobin Concent 31.2 G/DL (32.0-36.0) L Red Cell Distribution Width 17.1 % (11.6-14.8) H Platelet Count 294 K/UL (150-450) Mean Platelet Volume 6.5 FL (6.5-10.1) Neutrophils (%) (Auto) 43.8 % (45.0-75.0) L Lymphocytes (%) (Auto) 37.6 % (20.0-45.0) Monocytes (%) (Auto) 9.1 % (1.0-10.0) Eosinophils (%) (Auto) 7.4 % (0.0-3.0) H Basophils (%) (Auto) 2.2 % (0.0-2.0) H Sodium Level 133 MMOL/L (136-145) L Potassium Level 4.3 MMOL/L (3.5-5.1) Chloride Level 99 MMOL/L (98-107) Carbon Dioxide Level 26 MMOL/L (21-32) Anion Gap 8 mmol/L (5-15) Blood Urea Nitrogen 24 mg/dL (7-18) H Creatinine 1.6 MG/DL (0.55-1.30) H Estimat Glomerular Filtration Rate 52.4 mL/min (>60) Glucose Level 126 MG/DL (74-106) H Calcium Level 9.5 MG/DL (8.5-10.1) Plan Problems: (1) Nonhealing ulcer of right lower extremity Assessment & Plan: 67 M with slowly healing right lateral ankle wound. states >2 years but healing. can see area of larger wound that has been slowly healing. some mild cellulitis. mild trace edema. proximally dry. venous duplex / arterial duplex studies done within last few weeks and reviewed. calcified vessels distally but still has flow. -no acute surgical intervention necessary. -honey gel and foam dressing over ulcer -skin protectant and lotion -keep pressure off wound -okay to shower -will monitor while in hospital. thank you for this consultation. Ugo Simms May 31, 2018 12:44
--- NOTE | 2018-05-31 13:03 | Internal Med Progress Note ---
Subjective Date of Service: May 31, 2018 Physician Name Reyna,Shantanu Attending Physician Phil Wright MD Current Medications Medications (Trade) Dose Ordered Sig/Aminata Route PRN Reason Start Time Stop Time Status Last Admin Dose Admin Acetaminophen (Tylenol) 650 mg Q4H PRN ORAL Mild Pain (Pain Scale 1-3) 05/29/18 15:30 06/26/18 07:29 Acetaminophen (Tylenol) 650 mg Q4H PRN ORAL fever (temp>100.5F) 05/29/18 15:30 06/26/18 07:29 Acetaminophen (Tylenol) 650 mg Q4H PRN RECTAL Mild Pain (Pain Scale 1-3) 05/29/18 15:30 06/26/18 07:29 Acetaminophen (Tylenol) 650 mg Q4H PRN RECTAL fever (temp>100.5F) 05/29/18 15:30 06/26/18 07:29 Albuterol/ Ipratropium (Albuterol/ Ipratropium) 3 ml Q4H PRN INH Shortness of Breath 05/29/18 15:30 06/01/18 07:29 Albuterol/ Ipratropium (Albuterol/ Ipratropium) 3 ml Q8HRT INH 05/29/18 23:00 06/03/18 22:59 05/30/18 14:39 Amlodipine Besylate (Norvasc) 10 mg DAILY ORAL 05/30/18 09:00 06/26/18 08:59 05/31/18 09:10 Aspirin (ASA) 81 mg DAILY NG 05/30/18 09:00 06/28/18 08:59 05/31/18 08:29 Atorvastatin Calcium (Lipitor) 80 mg BEDTIME ORAL 05/29/18 21:00 06/27/18 20:59 05/30/18 21:13 Bisacodyl (Dulcolax) 10 mg DAILYPRN PRN RECTAL Constipation 05/29/18 16:30 06/28/18 16:29 Cefazolin Sodium 1 gm/Dextrose 110 ml @ 220 mls/hr Q8HR IVPB 05/29/18 22:00 06/04/18 15:29 05/31/18 05:32 Clopidogrel Bisulfate (Plavix) 75 mg DAILY ORAL 05/30/18 09:00 06/26/18 08:59 05/31/18 08:29 Dextrose (Dextrose 50%) 25 ml STAT PRN IV Hypoglycemia 05/29/18 16:00 06/28/18 15:59 Dextrose (Dextrose 50%) 50 ml STAT PRN IV Hypoglycemia 05/29/18 16:00 06/28/18 15:59 Docusate Sodium (Colace) 100 mg EVERY 12 HOURS ORAL 05/29/18 21:00 06/26/18 08:59 05/31/18 08:30 Furosemide (Lasix) 40 mg DAILY ORAL 05/30/18 09:00 06/26/18 08:59 05/31/18 08:30 Heparin Sodium (Porcine) (Heparin 5000 units/ml) 5,000 units EVERY 8 HOURS SUBQ 05/29/18 22:00 06/26/18 13:59 05/29/18 21:35 Magnesium Hydroxide (Mom) 30 ml HSPRN PRN ORAL Constipation 05/29/18 16:30 06/28/18 16:29 Mirtazapine (Remeron) 15 mg BEDTIME ORAL 05/29/18 21:00 06/27/18 20:59 05/30/18 21:13 Morphine Sulfate (Morphine Sulfate) 4 mg Q3H PRN IVP PAIN 4-10 05/29/18 16:00 06/04/18 15:59 05/31/18 11:49 Ondansetron HCl (Zofran) 4 mg Q6H PRN IVP Nausea & Vomiting 05/29/18 16:30 06/26/18 16:29 Polyethylene Glycol (Miralax) 17 gm DAILYPRN PRN ORAL Constipation 05/30/18 07:30 06/26/18 07:29 Ranolazine (Ranexa ER 500mg) 500 mg Q12HR ORAL 05/29/18 21:00 06/27/18 20:59 05/31/18 08:30 Theophylline (Wilfrido-Dur) 100 mg EVERY 12 HOURS ORAL 05/29/18 21:00 06/26/18 08:59 05/31/18 08:29 Allergies: Coded Allergies: EGG (Verified Allergy, Unknown, 09/22/15) MEPERIDINE (Verified Allergy, Unknown, 12/21/10) NITROGLYCERIN (Verified Allergy, Unknown, hives, 02/18/17) ROS Limited/Unobtainable: No Constitutional: Reports: no symptoms HEENT: Reports: no symptoms Cardiovascular: Reports: no symptoms Respiratory: Reports: no symptoms Gastrointestinal/Abdominal: Reports: no symptoms Genitourinary: Reports: no symptoms 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: Reports: no symptoms Subjective 67 YO M admitted with chest pain and bilateral leg swelling. Cover for Int Vera Wright Objective Last Vital Signs Date Time Temp Pulse Resp B/P (MAP) Pulse Ox O2 Delivery O2 Flow Rate FiO2 05/31/18 12:19 97.5 05/31/18 11:56 99 21 142/80 (100) 99 05/31/18 09:00 Room Air 05/31/18 07:40 21 Laboratory Tests Test 05/31/18 07:35 White Blood Count 5.5 K/UL (4.8-10.8) Red Blood Count 5.45 M/UL (4.70-6.10) Hemoglobin 14.4 G/DL (14.2-18.0) Hematocrit 45.9 % (42.0-52.0) Mean Corpuscular Volume 84 FL (80-99) Mean Corpuscular Hemoglobin 26.3 PG (27.0-31.0) L Mean Corpuscular Hemoglobin Concent 31.2 G/DL (32.0-36.0) L Red Cell Distribution Width 17.1 % (11.6-14.8) H Platelet Count 294 K/UL (150-450) Mean Platelet Volume 6.5 FL (6.5-10.1) Neutrophils (%) (Auto) 43.8 % (45.0-75.0) L Lymphocytes (%) (Auto) 37.6 % (20.0-45.0) Monocytes (%) (Auto) 9.1 % (1.0-10.0) Eosinophils (%) (Auto) 7.4 % (0.0-3.0) H Basophils (%) (Auto) 2.2 % (0.0-2.0) H Sodium Level 133 MMOL/L (136-145) L Potassium Level 4.3 MMOL/L (3.5-5.1) Chloride Level 99 MMOL/L (98-107) Carbon Dioxide Level 26 MMOL/L (21-32) Anion Gap 8 mmol/L (5-15) Blood Urea Nitrogen 24 mg/dL (7-18) H Creatinine 1.6 MG/DL (0.55-1.30) H Estimat Glomerular Filtration Rate 52.4 mL/min (>60) Glucose Level 126 MG/DL (74-106) H Calcium Level 9.5 MG/DL (8.5-10.1) Intake and Output 05/30/18 05/31/18 19:00 07:00 Intake Total 700 ml 600 ml Output Total 1100 ml Balance 700 ml -500 ml Intake Oral 600 ml Other 700 ml Output Urine Total 1100 ml # Voids 3 Objective General Appearance: alert, mild distress, thin EENT: PERRL/EOMI, normal ENT inspection Neck: non-tender, normal alignment, supple, normal inspection Cardiovascular: normal peripheral pulses, normal rate, regular rhythm, no gallop/murmur, no JVD Respiratory/Chest: chest wall non-tender, lungs clear, normal breath sounds, no respiratory distress, no accessory muscle use Abdomen: normal bowel sounds, non tender, soft, no organomegaly, no mass Extremities: normal range of motion, non-tender Edema: trace edema Neurologic: gore seamer II-XII grossly normal, no motor/sensory deficits Skin: normal pigmentation, warm/dry Assessment/Plan Problem List: (1) Chest pain Assessment & Plan: See cardiology note. Ruled out for ACS (2) Cellulitis of right ankle Assessment & Plan: See ID note - continue ancef (3) HTN (hypertension) Assessment & Plan: Continue norvasc (4) CAD (coronary artery disease) Assessment & Plan: Continue plavix (5) COPD exacerbation (6) Nonhealing ulcer of right lower extremity Assessment & Plan: Await podiatry consult. See ID note-continue ancef (7) Edema Status: progressing Assessment/Plan Discharge planning: home with hospice Shantanu Reyna MD May 31, 2018 13:03
--- NOTE | 2018-05-31 15:20 | Podiatric Progress Note ---
Assessment/Plan Patient Benjamin Ring is a 67 year old male who was admitted on May 27, 2018 at 05:29 with Problems: (1) Peripheral arterial disease (2) Peripheral vascular disease (3) Decubitus ulcer, ankle, right, unstageable (4) Pain of right lower extremity Assessment/Plan Rx xray to r/o bone infection. continue abx continue medihoni. patient will be followed Thank you; Subjective Reason for consult R ankle ulcer Allergies: Coded Allergies: EGG (Verified Allergy, Unknown, 09/22/15) MEPERIDINE (Verified Allergy, Unknown, 12/21/10) NITROGLYCERIN (Verified Allergy, Unknown, hives, 02/18/17) Subjective Patient was admitted to [facility] [place] with chest pain and CHF. Patient has had an ankle ulcer for a while which has been taken care of by home health agency. He is Hospice and was told his foot is being taken care of. He denies f/c/n/v and has low WBC Objective Exam Last 24 Hour Vital Signs Date Time Temp Pulse Resp B/P (MAP) Pulse Ox O2 Delivery O2 Flow Rate FiO2 05/31/18 15:07 95 20 97 Room Air 21 05/31/18 12:19 97.5 05/31/18 11:56 97.5 99 21 142/80 (100) 99 97.5 05/31/18 11:49 97.7 05/31/18 09:10 94 124/68 05/31/18 09:00 Room Air 05/31/18 08:30 97.7 05/31/18 08:00 97.7 94 20 108/66 (80) 97 97.7 05/31/18 07:40 Room Air 05/31/18 07:40 Room Air 21 05/31/18 04:00 98.1 91 18 132/79 (96) 95 98.1 05/31/18 00:00 98.3 102 18 129/77 (94) 94 98.3 05/30/18 23:48 94 20 98 Room Air 21 05/30/18 23:48 Room Air 21 05/30/18 21:00 Room Air 05/30/18 20:00 98.5 98 18 120/79 (93) 95 98.5 05/30/18 16:00 96.7 89 17 153/85 (107) 98 96.7 Laboratory Tests Test 05/31/18 07:35 White Blood Count 5.5 K/UL (4.8-10.8) Red Blood Count 5.45 M/UL (4.70-6.10) Hemoglobin 14.4 G/DL (14.2-18.0) Hematocrit 45.9 % (42.0-52.0) Mean Corpuscular Volume 84 FL (80-99) Mean Corpuscular Hemoglobin 26.3 PG (27.0-31.0) L Mean Corpuscular Hemoglobin Concent 31.2 G/DL (32.0-36.0) L Red Cell Distribution Width 17.1 % (11.6-14.8) H Platelet Count 294 K/UL (150-450) Mean Platelet Volume 6.5 FL (6.5-10.1) Neutrophils (%) (Auto) 43.8 % (45.0-75.0) L Lymphocytes (%) (Auto) 37.6 % (20.0-45.0) Monocytes (%) (Auto) 9.1 % (1.0-10.0) Eosinophils (%) (Auto) 7.4 % (0.0-3.0) H Basophils (%) (Auto) 2.2 % (0.0-2.0) H Sodium Level 133 MMOL/L (136-145) L Potassium Level 4.3 MMOL/L (3.5-5.1) Chloride Level 99 MMOL/L (98-107) Carbon Dioxide Level 26 MMOL/L (21-32) Anion Gap 8 mmol/L (5-15) Blood Urea Nitrogen 24 mg/dL (7-18) H Creatinine 1.6 MG/DL (0.55-1.30) H Estimat Glomerular Filtration Rate 52.4 mL/min (>60) Glucose Level 126 MG/DL (74-106) H Calcium Level 9.5 MG/DL (8.5-10.1) Microbiology Date/Time Source Procedure Growth Status 05/27/18 04:30 Nose MRSA Culture - Final NO METHICILLIN RESISTANT STAPH AUREUS... Complete Exam Narrative non palpable pulses were noted. Musculoskeletal Muscle strength grading: grade 3 Musculoskeletal: abnormal position Musculoskeletal patient s/p times many years with R ankle fracture and displacement. he has an inverted adducted ankle at the level of the distal ankle at the location of the ulceration. Vascular Pulses: 0 dorsalis pedis (R), 0 dorsalis pedis (L), 0 posterior tibial (R), 0 posterior tibial (L) Edema: no edema noted foot (L), no edema noted foot (R), no edema noted ankle ( L), no edema noted ankle (R), no edema noted leg (L), no edema noted leg (R) Pedal hair present: No Temperature: within normal limits Neurological Light touch: sensate bilateral Dermatological Dermatological Narrative Ulceration noted to the lateral aspect of the R ankle at the distal 1/3. ulceration is 2.5/1.2 cm in diameter and probs to subq. no undermining and no sinus tracks noted. no drainage, discharge, pus, cellulits or odor noted. slight pain with palpation. Adonis Salcedo DPM May 31, 2018 15:20
[2018-05-31 16:00] VITALS: BP 130/70
--- NOTE | 2018-05-31 18:10 | Pulmonology Progress Note ---
Assessment/Plan Problems: (1) COPD exacerbation (2) Nonhealing ulcer of right lower extremity (3) Diabetic foot ulcer (4) CAD (coronary artery disease) (5) DM (diabetes mellitus) (6) HTN (hypertension) Assessment/Plan less short of breath in better spirit less sob doing better wound care ID evaluation appreciated surgical evaluation appreciated pain management Subjective ROS Limited/Unobtainable: No Constitutional: Reports: no symptoms HEENT: Repors: no symptoms Respiratory: Reports: no symptoms Allergies: Coded Allergies: EGG (Verified Allergy, Unknown, 09/22/15) MEPERIDINE (Verified Allergy, Unknown, 12/21/10) NITROGLYCERIN (Verified Allergy, Unknown, hives, 02/18/17) Objective Last 24 Hour Vital Signs Date Time Temp Pulse Resp B/P (MAP) Pulse Ox O2 Delivery O2 Flow Rate FiO2 05/31/18 16:34 97.5 05/31/18 16:04 97.5 05/31/18 16:00 98.2 93 22 130/70 (90) 99 98.2 05/31/18 15:13 99 20 97 Room Air 21 05/31/18 15:07 95 20 97 Room Air 05/31/18 11:56 97.5 99 21 142/80 (100) 99 97.5 05/31/18 11:49 97.7 05/31/18 09:10 94 124/68 05/31/18 09:00 Room Air 05/31/18 08:30 97.7 05/31/18 08:00 97.7 94 20 108/66 (80) 97 97.7 05/31/18 07:40 Room Air 05/31/18 07:40 Room Air 21 05/31/18 04:00 98.1 91 18 132/79 (96) 95 98.1 05/31/18 00:00 98.3 102 18 129/77 (94) 94 98.3 05/30/18 23:48 94 20 98 Room Air 21 05/30/18 23:48 Room Air 21 05/30/18 21:00 Room Air 05/30/18 20:00 98.5 98 18 120/79 (93) 95 98.5 Intake and Output 05/30/18 05/31/18 19:00 07:00 Intake Total 700 ml 600 ml Output Total 1100 ml Balance 700 ml -500 ml Intake Oral 600 ml Other 700 ml Output Urine Total 1100 ml # Voids 3 Objective General Appearance: WD/WN HEENT: normocephalic, atraumatic Respiratory/Chest: chest wall non-tender, lungs clear Breasts: no masses Cardiovascular: normal peripheral pulses, normal rate Abdomen: normal bowel sounds, no organomegaly 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: in house cra II-XII grossly normal Lymphatic: no neck adenopathy Laboratory Tests 05/31/18 07:35: White Blood Count 5.5, Red Blood Count 5.45, Hemoglobin 14.4, Hematocrit 45.9, Mean Corpuscular Volume 84, Mean Corpuscular Hemoglobin 26.3L, Mean Corpuscular Hemoglobin Concent 31.2L, Red Cell Distribution Width 17.1H, Platelet Count 294 , Mean Platelet Volume 6.5, Neutrophils (%) (Auto) 43.8L, Lymphocytes (%) (Auto ) 37.6, Monocytes (%) (Auto) 9.1, Eosinophils (%) (Auto) 7.4H, Basophils (%) ( Auto) 2.2H, Sodium Level 133L, Potassium Level 4.3, Chloride Level 99, Carbon Dioxide Level 26, Anion Gap 8, Blood Urea Nitrogen 24H, Creatinine 1.6H, Estimat Glomerular Filtration Rate 52.4, Glucose Level 126H, Calcium Level 9.5 Current Medications Medications (Trade) Dose Ordered Sig/Aminata Route PRN Reason Start Time Stop Time Status Last Admin Dose Admin Acetaminophen (Tylenol) 650 mg Q4H PRN ORAL Mild Pain (Pain Scale 1-3) 05/29/18 15:30 06/26/18 07:29 Acetaminophen (Tylenol) 650 mg Q4H PRN ORAL fever (temp>100.5F) 05/29/18 15:30 06/26/18 07:29 Acetaminophen (Tylenol) 650 mg Q4H PRN RECTAL Mild Pain (Pain Scale 1-3) 05/29/18 15:30 06/26/18 07:29 Acetaminophen (Tylenol) 650 mg Q4H PRN RECTAL fever (temp>100.5F) 05/29/18 15:30 06/26/18 07:29 Albuterol/ Ipratropium (Albuterol/ Ipratropium) 3 ml Q4H PRN INH Shortness of Breath 05/29/18 15:30 06/01/18 07:29 Albuterol/ Ipratropium (Albuterol/ Ipratropium) 3 ml Q8HRT INH 05/29/18 23:00 06/03/18 22:59 05/31/18 15:09 Amlodipine Besylate (Norvasc) 10 mg DAILY ORAL 05/30/18 09:00 06/26/18 08:59 05/31/18 09:10 Aspirin (ASA) 81 mg DAILY NG 05/30/18 09:00 06/28/18 08:59 05/31/18 08:29 Atorvastatin Calcium (Lipitor) 80 mg BEDTIME ORAL 05/29/18 21:00 06/27/18 20:59 05/30/18 21:13 Bisacodyl (Dulcolax) 10 mg DAILYPRN PRN RECTAL Constipation 05/29/18 16:30 06/28/18 16:29 Cefazolin Sodium 1 gm/Dextrose 110 ml @ 220 mls/hr Q8HR IVPB 05/29/18 22:00 06/04/18 15:29 05/31/18 13:59 Clopidogrel Bisulfate (Plavix) 75 mg DAILY ORAL 05/30/18 09:00 06/26/18 08:59 05/31/18 08:29 Dextrose (Dextrose 50%) 25 ml STAT PRN IV Hypoglycemia 05/29/18 16:00 06/28/18 15:59 Dextrose (Dextrose 50%) 50 ml STAT PRN IV Hypoglycemia 05/29/18 16:00 06/28/18 15:59 Docusate Sodium (Colace) 100 mg EVERY 12 HOURS ORAL 05/29/18 21:00 06/26/18 08:59 05/31/18 08:30 Furosemide (Lasix) 40 mg DAILY ORAL 05/30/18 09:00 06/26/18 08:59 05/31/18 08:30 Heparin Sodium (Porcine) (Heparin 5000 units/ml) 5,000 units EVERY 8 HOURS SUBQ 05/29/18 22:00 06/26/18 13:59 05/31/18 14:04 Magnesium Hydroxide (Mom) 30 ml HSPRN PRN ORAL Constipation 05/29/18 16:30 06/28/18 16:29 Mirtazapine (Remeron) 15 mg BEDTIME ORAL 7/6/18 21:00 06/27/18 20:59 05/30/18 21:13 Morphine Sulfate (Morphine Sulfate) 4 mg Q3H PRN IVP PAIN 4-10 05/29/18 16:00 06/04/18 15:59 05/31/18 16:04 Ondansetron HCl (Zofran) 4 mg Q6H PRN IVP Nausea & Vomiting 05/29/18 16:30 06/26/18 16:29 Polyethylene Glycol (Miralax) 17 gm DAILYPRN PRN ORAL Constipation 05/30/18 07:30 06/26/18 07:29 Ranolazine (Ranexa ER 500mg) 500 mg Q12HR ORAL 05/29/18 21:00 06/27/18 20:59 05/31/18 08:30 Theophylline (Wilfrido-Dur) 100 mg EVERY 12 HOURS ORAL 05/29/18 21:00 06/26/18 08:59 05/31/18 08:29 Jessie Magana MD May 31, 2018 18:10
[2018-05-31 20:00] VITALS: BP 101/73
[2018-05-31] MEDS: Atorvastatin 80mg tab ORAL SCH (21:03)
--- NOTE | 2018-05-31 21:34 | Infectious Diseases Prog Note ---
Assessment/Plan Assessment/Plan Assessment: Bl leg swelling; R>L R leg cellulitis;improving Dyspnea- -cXR: Findings suggestive of COPD. Correlate clinically. No definite focal consolidation. Afebrile, no leukocytosis REcent B/l Leg cellulitis (L>R), s/p Rx R Ankle chronic ulcer- healing, no signs of infection -R foot xray 03/2018: No acute injury identified. Abnormal fifth MPJ joint which may be on the basis of previous surgery/trauma or old erosive process. Osteoporosis -a. duplex: A mild (10-30%) stenosis is seen in the mid superficial femoral artery. There is no evidence of occlusion within this segment. HTN severe malnutrition MDD tobacco abuse seizure disorder emphysema DM2 CAD s/p CABG COPD -recent exacerbation requiring admission 02/2018 bedbound Plan: -Continue IV Ancef #4/7 for R leg cellulitis; upon discharge can be transitioned to PO Keflex -05/16 SP Ancef # 5 -05/12 SP Cefepime and Zosyn x1 -/ SP PO Levaquin #3 -03/23/18 SP Zosyn #2 -Monitor CBC/BMP, temperatures -management of swelling per primary and cardiology -wound care per hosp protocol Thank you for this consultation. Will continue to follow along with you. Discussed with RN Subjective Allergies: Coded Allergies: EGG (Verified Allergy, Unknown, 09/22/15) MEPERIDINE (Verified Allergy, Unknown, 12/21/10) NITROGLYCERIN (Verified Allergy, Unknown, hives, 02/18/17) Subjective afebrile no leukocytosis Objective Vital Signs Last 24 Hour Vital Signs Date Time Temp Pulse Resp B/P (MAP) Pulse Ox O2 Delivery O2 Flow Rate FiO2 05/31/18 16:34 97.5 05/31/18 16:04 97.5 05/31/18 16:00 98.2 93 22 130/70 (90) 99 98.2 05/31/18 15:13 99 20 97 Room Air 21 05/31/18 15:07 95 20 97 Room Air 21 05/31/18 11:56 97.5 99 21 142/80 (100) 99 97.5 05/31/18 11:49 97.7 05/31/18 09:10 94 124/68 05/31/18 09:00 Room Air 05/31/18 08:30 97.7 05/31/18 08:00 97.7 94 20 108/66 (80) 97 97.7 05/31/18 07:40 Room Air 21 05/31/18 07:40 Room Air 21 05/31/18 04:00 98.1 91 18 132/79 (96) 95 98.1 05/31/18 00:00 98.3 102 18 129/77 (94) 94 98.3 05/30/18 23:48 94 20 98 Room Air 21 05/30/18 23:48 Room Air 21 Height (Feet): 6 Height (Inches): 1.00 Weight (Pounds): 133 Objective General Appearance: no apparent distress Lines, tubes and drains: peripheral HEENT: mucous membranes moist Neck: normal inspection Respiratory/Chest: normal breath sounds, no respiratory distress, no accessory muscle use Cardiovascular/Chest: normal rate Abdomen: non tender, soft, no organomegaly, no mass Extremities: trace edema, other - right lateral malleolus ulcer slowly healing. small open area and can see remnent of prior larger wound. palpable but poor peripheral pulses. dry skin; R leg cellulitis improving Skin Exam: normal pigmentation, warm/dry Neurologic: alert, oriented x 3 Laboratory Tests Test 05/31/18 07:35 White Blood Count 5.5 K/UL (4.8-10.8) Red Blood Count 5.45 M/UL (4.70-6.10) Hemoglobin 14.4 G/DL (14.2-18.0) Hematocrit 45.9 % (42.0-52.0) Mean Corpuscular Volume 84 FL (80-99) Mean Corpuscular Hemoglobin 26.3 PG (27.0-31.0) L Mean Corpuscular Hemoglobin Concent 31.2 G/DL (32.0-36.0) L Red Cell Distribution Width 17.1 % (11.6-14.8) H Platelet Count 294 K/UL (150-450) Mean Platelet Volume 6.5 FL (6.5-10.1) Neutrophils (%) (Auto) 43.8 % (45.0-75.0) L Lymphocytes (%) (Auto) 37.6 % (20.0-45.0) Monocytes (%) (Auto) 9.1 % (1.0-10.0) Eosinophils (%) (Auto) 7.4 % (0.0-3.0) H Basophils (%) (Auto) 2.2 % (0.0-2.0) H Sodium Level 133 MMOL/L (136-145) L Potassium Level 4.3 MMOL/L (3.5-5.1) Chloride Level 99 MMOL/L (98-107) Carbon Dioxide Level 26 MMOL/L (21-32) Anion Gap 8 mmol/L (5-15) Blood Urea Nitrogen 24 mg/dL (7-18) H Creatinine 1.6 MG/DL (0.55-1.30) H Estimat Glomerular Filtration Rate 52.4 mL/min (>60) Glucose Level 126 MG/DL (74-106) H Calcium Level 9.5 MG/DL (8.5-10.1) Current Medications Medications (Trade) Dose Ordered Sig/Aminata Route PRN Reason Start Time Stop Time Status Last Admin Dose Admin Acetaminophen (Tylenol) 650 mg Q4H PRN ORAL Mild Pain (Pain Scale 1-3) 05/29/18 15:30 06/26/18 07:29 Acetaminophen (Tylenol) 650 mg Q4H PRN ORAL fever (temp>100.5F) 05/29/18 15:30 06/26/18 07:29 Acetaminophen (Tylenol) 650 mg Q4H PRN RECTAL Mild Pain (Pain Scale 1-3) 05/29/18 15:30 06/26/18 07:29 Acetaminophen (Tylenol) 650 mg Q4H PRN RECTAL fever (temp>100.5F) 05/29/18 15:30 06/26/18 07:29 Albuterol/ Ipratropium (Albuterol/ Ipratropium) 3 ml Q4H PRN INH Shortness of Breath 05/29/18 15:30 06/01/18 07:29 Albuterol/ Ipratropium (Albuterol/ Ipratropium) 3 ml Q8HRT INH 05/29/18 23:00 06/03/18 22:59 05/31/18 15:09 Amlodipine Besylate (Norvasc) 10 mg DAILY ORAL 05/30/18 09:00 06/26/18 08:59 05/31/18 09:10 Aspirin (ASA) 81 mg DAILY NG 05/30/18 09:00 06/28/18 08:59 05/31/18 08:29 Atorvastatin Calcium (Lipitor) 80 mg BEDTIME ORAL 05/29/18 21:00 06/27/18 20:59 05/31/18 21:03 Bisacodyl (Dulcolax) 10 mg DAILYPRN PRN RECTAL Constipation 05/29/18 16:30 06/28/18 16:29 Cefazolin Sodium 1 gm/Dextrose 110 ml @ 220 mls/hr Q8HR IVPB 05/29/18 22:00 06/04/18 15:29 05/31/18 13:59 Clopidogrel Bisulfate (Plavix) 75 mg DAILY ORAL 05/30/18 09:00 06/26/18 08:59 05/31/18 08:29 Dextrose (Dextrose 50%) 25 ml STAT PRN IV Hypoglycemia 05/29/18 16:00 06/28/18 15:59 Dextrose (Dextrose 50%) 50 ml STAT PRN IV Hypoglycemia 05/29/18 16:00 06/28/18 15:59 Docusate Sodium (Colace) 100 mg EVERY 12 HOURS ORAL 05/29/18 21:00 06/26/18 08:59 05/31/18 21:04 Furosemide (Lasix) 40 mg DAILY ORAL 05/30/18 09:00 06/26/18 08:59 05/31/18 08:30 Heparin Sodium (Porcine) (Heparin 5000 units/ml) 5,000 units EVERY 8 HOURS SUBQ 05/29/18 22:00 06/26/18 13:59 05/31/18 14:04 Magnesium Hydroxide (Mom) 30 ml HSPRN PRN ORAL Constipation 05/29/18 16:30 06/28/18 16:29 Mirtazapine (Remeron) 15 mg BEDTIME ORAL 05/29/18 21:00 06/27/18 20:59 05/31/18 21:03 Morphine Sulfate (Morphine Sulfate) 4 mg Q3H PRN IVP PAIN 4-10 05/29/18 16:00 06/04/18 15:59 05/31/18 21:04 Ondansetron HCl (Zofran) 4 mg Q6H PRN IVP Nausea & Vomiting 05/29/18 16:30 06/26/18 16:29 Polyethylene Glycol (Miralax) 17 gm DAILYPRN PRN ORAL Constipation 05/30/18 07:30 06/26/18 07:29 Ranolazine (Ranexa ER 500mg) 500 mg Q12HR ORAL 05/29/18 21:00 06/27/18 20:59 05/31/18 21:03 Theophylline (Wilfrido-Dur) 100 mg EVERY 12 HOURS ORAL 05/29/18 21:00 06/26/18 08:59 05/31/18 21:03 Jessica Parry M.D. May 31, 2018 21:34
[2018-06-01] VITALS: BP 156/76
[2018-06-01] MEDS: Morphine Sulfate 4mg/ml Inj (IV USE ONLY) IVP PRN ×7 (01:03→23:16)
[2018-06-01 04:00] VITALS: BP 143/73
[2018-06-01] MEDS: ceFAZolin sod 1 GM in D5W 110 ML IVPB SCH ×3 (05:30→21:11)
[2018-06-01] MEDS: Heparin 5000 units/ml inj SUBQ SCH ×3 (06:00→21:15)
[2018-06-01 07:40] LABS: BASOPHILS % (AUTO) 1.8 % (0.0-2.0); EOSINOPHILS % (AUTO) 9.4 % (0.0-3.0); HEMATOCRIT 45.1 % (42.0-52.0); LYMPHOCYTES % (AUTO) 40.2 % (20.0-45.0); MEAN CORPUSCULAR VOLUME 84 FL (80-99); MONOCYTES % (AUTO) 12.8 % (1.0-10.0); NEUTROPHILS % (AUTO) 35.8 % (45.0-75.0); PLATELET COUNT 275 K/UL (150-450); RED BLOOD COUNT 5.36 M/UL (4.70-6.10); RED CELL DISTRIBUTION WIDTH 16.5 % (11.6-14.8); WHITE BLOOD COUNT 5.3 K/UL (4.8-10.8)
[2018-06-01 08:00] VITALS: BP 135/76
[2018-06-01 08:13] LABS: ANION GAP 8 mmol/L (5-15); BLOOD UREA NITROGEN 23 mg/dL (7-18); CALCIUM 8.9 MG/DL (8.5-10.1); CARBON DIOXIDE 29 MMOL/L (21-32); CHLORIDE 99 MMOL/L (98-107); CREATININE 1.6 MG/DL (0.55-1.30); POTASSIUM 4.4 MMOL/L (3.5-5.1); SODIUM 135 MMOL/L (136-145)
[2018-06-01] MEDS: Albuterol/Ipratropium 3ml neb INH SCH ×3 (08:26→23:21)
[2018-06-01] MEDS: Docusate 100mg cap ORAL SCH ×2 (08:50→21:09)
[2018-06-01] MEDS: Theophylline ER 100mg ORAL SCH ×2 (08:50→21:10)
[2018-06-01] MEDS: Aspirin Baby 81mg NG SCH (08:50)
[2018-06-01] MEDS: Furosemide 40mg tab ORAL SCH (08:50)
[2018-06-01] MEDS: Ranolazine 500mg tab ORAL SCH ×2 (08:51→21:09)
--- NOTE | 2018-06-01 10:30 | Internal Med Progress Note ---
Subjective Date of Service: Jun 01, 2018 Physician Name MaribellShantanu Attending Physician Phil Wright MD Current Medications Medications (Trade) Dose Ordered Sig/Aminata Route PRN Reason Start Time Stop Time Status Last Admin Dose Admin Acetaminophen (Tylenol) 650 mg Q4H PRN ORAL Mild Pain (Pain Scale 1-3) 05/29/18 15:30 06/26/18 07:29 Acetaminophen (Tylenol) 650 mg Q4H PRN ORAL fever (temp>100.5F) 05/29/18 15:30 06/26/18 07:29 Acetaminophen (Tylenol) 650 mg Q4H PRN RECTAL Mild Pain (Pain Scale 1-3) 05/29/18 15:30 06/26/18 07:29 Acetaminophen (Tylenol) 650 mg Q4H PRN RECTAL fever (temp>100.5F) 05/29/18 15:30 06/26/18 07:29 Albuterol/ Ipratropium (Albuterol/ Ipratropium) 3 ml Q8HRT INH 05/29/18 23:00 06/03/18 22:59 06/01/18 08:26 Amlodipine Besylate (Norvasc) 10 mg DAILY ORAL 05/30/18 09:00 06/26/18 08:59 06/01/18 08:50 Aspirin (ASA) 81 mg DAILY NG 05/30/18 09:00 06/28/18 08:59 06/01/18 08:50 Atorvastatin Calcium (Lipitor) 80 mg BEDTIME ORAL 05/29/18 21:00 06/27/18 20:59 05/31/18 21:03 Bisacodyl (Dulcolax) 10 mg DAILYPRN PRN RECTAL Constipation 05/29/18 16:30 06/28/18 16:29 Cefazolin Sodium 1 gm/Dextrose 110 ml @ 220 mls/hr Q8HR IVPB 05/29/18 22:00 06/04/18 15:29 06/01/18 05:30 Clopidogrel Bisulfate (Plavix) 75 mg DAILY ORAL 05/30/18 09:00 06/26/18 08:59 06/01/18 08:51 Dextrose (Dextrose 50%) 25 ml STAT PRN IV Hypoglycemia 05/29/18 16:00 06/28/18 15:59 Dextrose (Dextrose 50%) 50 ml STAT PRN IV Hypoglycemia 05/29/18 16:00 06/28/18 15:59 Docusate Sodium (Colace) 100 mg EVERY 12 HOURS ORAL 05/29/18 21:00 06/26/18 08:59 06/01/18 08:50 Furosemide (Lasix) 40 mg DAILY ORAL 05/30/18 09:00 06/26/18 08:59 06/01/18 08:50 Heparin Sodium (Porcine) (Heparin 5000 units/ml) 5,000 units EVERY 8 HOURS SUBQ 05/29/18 22:00 06/26/18 13:59 05/31/18 14:04 Magnesium Hydroxide (Mom) 30 ml HSPRN PRN ORAL Constipation 05/29/18 16:30 06/28/18 16:29 Mirtazapine (Remeron) 15 mg BEDTIME ORAL 05/29/18 21:00 06/27/18 20:59 05/31/18 21:03 Morphine Sulfate (Morphine Sulfate) 4 mg Q3H PRN IVP PAIN 4-10 05/29/18 16:00 06/04/18 15:59 06/01/18 08:51 Ondansetron HCl (Zofran) 4 mg Q6H PRN IVP Nausea & Vomiting 05/29/18 16:30 06/26/18 16:29 Polyethylene Glycol (Miralax) 17 gm DAILYPRN PRN ORAL Constipation 05/30/18 07:30 06/26/18 07:29 Ranolazine (Ranexa ER 500mg) 500 mg Q12HR ORAL 05/29/18 21:00 06/27/18 20:59 06/01/18 08:51 Theophylline (Wilfrido-Dur) 100 mg EVERY 12 HOURS ORAL 05/29/18 21:00 06/26/18 08:59 06/01/18 08:50 Allergies: Coded Allergies: EGG (Verified Allergy, Unknown, 09/22/15) MEPERIDINE (Verified Allergy, Unknown, 12/21/10) NITROGLYCERIN (Verified Allergy, Unknown, hives, 02/18/17) ROS Limited/Unobtainable: No Constitutional: Reports: no symptoms HEENT: Reports: no symptoms Cardiovascular: Reports: no symptoms Respiratory: Reports: no symptoms Gastrointestinal/Abdominal: Reports: no symptoms Genitourinary: Reports: no symptoms 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: Reports: no symptoms Subjective 67 YO M admitted with chest pain and bilateral leg swelling. Cover for Int Wilfred- Dr Wright Objective Last Vital Signs Date Time Temp Pulse Resp B/P (MAP) Pulse Ox O2 Delivery O2 Flow Rate FiO2 06/01/18 08:50 92 135/76 06/01/18 08:31 20 99 Room Air 21 06/01/18 04:00 98.0 98.0 Laboratory Tests Test 06/01/18 07:15 White Blood Count 5.3 K/UL (4.8-10.8) Red Blood Count 5.36 M/UL (4.70-6.10) Hemoglobin 14.0 G/DL (14.2-18.0) L Hematocrit 45.1 % (42.0-52.0) Mean Corpuscular Volume 84 FL (80-99) Mean Corpuscular Hemoglobin 26.1 PG (27.0-31.0) L Mean Corpuscular Hemoglobin Concent 31.0 G/DL (32.0-36.0) L Red Cell Distribution Width 16.5 % (11.6-14.8) H Platelet Count 275 K/UL (150-450) Mean Platelet Volume 6.4 FL (6.5-10.1) L Neutrophils (%) (Auto) 35.8 % (45.0-75.0) L Lymphocytes (%) (Auto) 40.2 % (20.0-45.0) Monocytes (%) (Auto) 12.8 % (1.0-10.0) H Eosinophils (%) (Auto) 9.4 % (0.0-3.0) H Basophils (%) (Auto) 1.8 % (0.0-2.0) Sodium Level 135 MMOL/L (136-145) L Potassium Level 4.4 MMOL/L (3.5-5.1) Chloride Level 99 MMOL/L (98-107) Carbon Dioxide Level 29 MMOL/L (21-32) Anion Gap 8 mmol/L (5-15) Blood Urea Nitrogen 23 mg/dL (7-18) H Creatinine 1.6 MG/DL (0.55-1.30) H Estimat Glomerular Filtration Rate 52.4 mL/min (>60) Glucose Level 121 MG/DL (74-106) H Calcium Level 8.9 MG/DL (8.5-10.1) Intake and Output 05/31/18 06/01/18 19:00 07:00 Intake Total 480 ml Output Total 800 ml 1000 ml Balance -320 ml -1000 ml Intake Oral 480 ml Output Urine Total 800 ml 1000 ml # Voids 1 Objective General Appearance: alert, mild distress, thin EENT: PERRL/EOMI, normal ENT inspection Neck: non-tender, normal alignment, supple, normal inspection Cardiovascular: normal peripheral pulses, normal rate, regular rhythm, no gallop/murmur, no JVD Respiratory/Chest: chest wall non-tender, lungs clear, normal breath sounds, no respiratory distress, no accessory muscle use Abdomen: normal bowel sounds, non tender, soft, no organomegaly, no mass Extremities: normal range of motion, non-tender Edema: trace edema 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 Ruled out for ACS (2) Cellulitis of right ankle Assessment & Plan: See ID note - continue ancef (3) HTN (hypertension) Assessment & Plan: Continue norvasc (4) CAD (coronary artery disease) Assessment & Plan: Continue plavix (5) COPD exacerbation (6) Nonhealing ulcer of right lower extremity Assessment & Plan: Await podiatry consult. See ID note-continue ancef (7) Edema Status: progressing Assessment/Plan Discharge planning: home with hospice Shantanu Reyna MD Jun 01, 2018 10:30
--- NOTE | 2018-06-01 11:47 | Cardiology Progress Note ---
Assessment/Plan Status: stable Assessment/Plan Assessment: (1) Cellulitis of right leg (2) Chronic ulcer of right leg (3) Hypothyroidism (4) Severe malnutrition (5) HTN (hypertension) (6) Chronic pain (7) ACS (acute coronary syndrome) (8) Cellulitis of right ankle (9) Ulcer of right lower leg (10) Edema (11) CHF (congestive heart failure) Plan: Continue dual antiplatelet therapy Outpatient stress test to evaluate status of stens and bypass grafts (patient did not want to do in house) nitro prn CP Continue Statin Continue BP medication Continue ranexa for refractory chest pain Wound care Ok to discharge with hospice Subjective Cardiovascular: Reports: no symptoms Respiratory: Reports: no symptoms Gastrointestinal/Abdominal: Reports: no symptoms Genitourinary: Reports: no symptoms Subjective No acute events NO chest pain Patient does not want stress test Wound dressing in place No complaints Not participating in physical therapy Tolerating PO Objective Last 24 Hour Vital Signs Date Time Temp Pulse Resp B/P (MAP) Pulse Ox O2 Delivery O2 Flow Rate FiO2 06/01/18 08:50 92 135/76 06/01/18 08:31 91 20 99 Room Air 21 06/01/18 08:25 90 18 98 Room Air 21 06/01/18 04:00 98.0 87 20 143/73 (96) 95 98.0 06/01/18 00:00 98.5 91 19 156/76 (102) 97 98.5 05/31/18 23:12 Room Air 05/31/18 23:11 96 16 96 Room Air 21 05/31/18 21:00 Room Air 05/31/18 20:00 99.2 78 19 101/73 (82) 96 99.2 05/31/18 16:34 97.5 05/31/18 16:04 97.5 05/31/18 16:00 98.2 93 22 130/70 (90) 99 98.2 05/31/18 15:13 99 20 97 Room Air 21 05/31/18 15:07 95 20 97 Room Air 21 05/31/18 11:56 97.5 99 21 142/80 (100) 99 97.5 05/31/18 11:49 97.7 General Appearance: no apparent distress EENT: PERRL/EOMI Neck: non-tender Rhythm: NSR Cardiovascular: normal peripheral pulses Respiratory/Chest: chest wall non-tender Abdomen: normal bowel sounds Extremities: normal range of motion 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 Intake and Output 05/31/18 06/01/18 19:00 07:00 Intake Total 480 ml Output Total 800 ml 1000 ml Balance -320 ml -1000 ml Intake Oral 480 ml Output Urine Total 800 ml 1000 ml # Voids 1 Laboratory Tests Test 06/01/18 07:15 White Blood Count 5.3 K/UL (4.8-10.8) Red Blood Count 5.36 M/UL (4.70-6.10) Hemoglobin 14.0 G/DL (14.2-18.0) L Hematocrit 45.1 % (42.0-52.0) Mean Corpuscular Volume 84 FL (80-99) Mean Corpuscular Hemoglobin 26.1 PG (27.0-31.0) L Mean Corpuscular Hemoglobin Concent 31.0 G/DL (32.0-36.0) L Red Cell Distribution Width 16.5 % (11.6-14.8) H Platelet Count 275 K/UL (150-450) Mean Platelet Volume 6.4 FL (6.5-10.1) L Neutrophils (%) (Auto) 35.8 % (45.0-75.0) L Lymphocytes (%) (Auto) 40.2 % (20.0-45.0) Monocytes (%) (Auto) 12.8 % (1.0-10.0) H Eosinophils (%) (Auto) 9.4 % (0.0-3.0) H Basophils (%) (Auto) 1.8 % (0.0-2.0) Sodium Level 135 MMOL/L (136-145) L Potassium Level 4.4 MMOL/L (3.5-5.1) Chloride Level 99 MMOL/L (98-107) Carbon Dioxide Level 29 MMOL/L (21-32) Anion Gap 8 mmol/L (5-15) Blood Urea Nitrogen 23 mg/dL (7-18) H Creatinine 1.6 MG/DL (0.55-1.30) H Estimat Glomerular Filtration Rate 52.4 mL/min (>60) Glucose Level 121 MG/DL (74-106) H Calcium Level 8.9 MG/DL (8.5-10.1) Adonis Winn M.D. Jun 01, 2018 11:47
[2018-06-01 12:00] VITALS: BP 129/74
--- NOTE | 2018-06-01 12:29 | Infectious Diseases Prog Note ---
Assessment/Plan Assessment/Plan Assessment: Bl leg swelling; R>L R leg cellulitis; resolving Dyspnea- -cXR: Findings suggestive of COPD. Correlate clinically. No definite focal consolidation. Afebrile, no leukocytosis REcent B/l Leg cellulitis (L>R), s/p Rx R Ankle chronic ulcer- healing, no signs of infection -R foot xray 03/2018: No acute injury identified. Abnormal fifth MPJ joint which may be on the basis of previous surgery/trauma or old erosive process. Osteoporosis -a. duplex: A mild (10-30%) stenosis is seen in the mid superficial femoral artery. There is no evidence of occlusion within this segment. HTN severe malnutrition MDD tobacco abuse seizure disorder emphysema DM2 CAD s/p CABG COPD -recent exacerbation requiring admission 02/2018 bedbound Plan: -Continue IV Ancef #5/7 for R leg cellulitis; upon discharge can be transitioned to PO Keflex -05/16 SP Ancef # 5 -05/12 SP Cefepime and Zosyn x1 -/ SP PO Levaquin #3 -03/23/18 SP Zosyn #2 -Monitor CBC/BMP, temperatures -management of swelling per primary and cardiology -wound care per hosp protocol Thank you for this consultation. Will continue to follow along with you. Discussed with RN Subjective Allergies: Coded Allergies: EGG (Verified Allergy, Unknown, 09/22/15) MEPERIDINE (Verified Allergy, Unknown, 12/21/10) NITROGLYCERIN (Verified Allergy, Unknown, hives, 02/18/17) Subjective afebrile no leukocytosis Objective Vital Signs Last 24 Hour Vital Signs Date Time Temp Pulse Resp B/P (MAP) Pulse Ox O2 Delivery O2 Flow Rate FiO2 06/01/18 08:50 92 135/76 06/01/18 08:31 91 20 99 Room Air 21 06/01/18 08:25 90 18 98 Room Air 21 06/01/18 08:15 Room Air 06/01/18 08:00 97.5 92 20 135/76 (95) 94 97.5 06/01/18 04:00 98.0 87 20 143/73 (96) 95 98.0 06/01/18 00:00 98.5 91 19 156/76 (102) 97 98.5 05/31/18 23:12 Room Air 05/31/18 23:11 96 16 96 Room Air 21 05/31/18 21:00 Room Air 05/31/18 20:00 99.2 78 19 101/73 (82) 96 99.2 05/31/18 16:34 97.5 05/31/18 16:04 97.5 05/31/18 16:00 98.2 93 22 130/70 (90) 99 98.2 05/31/18 15:13 99 20 97 Room Air 21 05/31/18 15:07 95 20 97 Room Air 21 Height (Feet): 6 Height (Inches): 1.00 Weight (Pounds): 133 Objective General Appearance: no apparent distress Lines, tubes and drains: peripheral HEENT: mucous membranes moist Neck: normal inspection Respiratory/Chest: normal breath sounds, no respiratory distress, no accessory muscle use Cardiovascular/Chest: normal rate Abdomen: non tender, soft, no organomegaly, no mass Extremities: trace edema, other - right lateral malleolus ulcer slowly healing. small open area and can see remnent of prior larger wound. palpable but poor peripheral pulses. dry skin; R leg cellulitis improving Skin Exam: normal pigmentation, warm/dry Neurologic: alert, oriented x 3 Laboratory Tests Test 06/01/18 07:15 White Blood Count 5.3 K/UL (4.8-10.8) Red Blood Count 5.36 M/UL (4.70-6.10) Hemoglobin 14.0 G/DL (14.2-18.0) L Hematocrit 45.1 % (42.0-52.0) Mean Corpuscular Volume 84 FL (80-99) Mean Corpuscular Hemoglobin 26.1 PG (27.0-31.0) L Mean Corpuscular Hemoglobin Concent 31.0 G/DL (32.0-36.0) L Red Cell Distribution Width 16.5 % (11.6-14.8) H Platelet Count 275 K/UL (150-450) Mean Platelet Volume 6.4 FL (6.5-10.1) L Neutrophils (%) (Auto) 35.8 % (45.0-75.0) L Lymphocytes (%) (Auto) 40.2 % (20.0-45.0) Monocytes (%) (Auto) 12.8 % (1.0-10.0) H Eosinophils (%) (Auto) 9.4 % (0.0-3.0) H Basophils (%) (Auto) 1.8 % (0.0-2.0) Sodium Level 135 MMOL/L (136-145) L Potassium Level 4.4 MMOL/L (3.5-5.1) Chloride Level 99 MMOL/L (98-107) Carbon Dioxide Level 29 MMOL/L (21-32) Anion Gap 8 mmol/L (5-15) Blood Urea Nitrogen 23 mg/dL (7-18) H Creatinine 1.6 MG/DL (0.55-1.30) H Estimat Glomerular Filtration Rate 52.4 mL/min (>60) Glucose Level 121 MG/DL (74-106) H Calcium Level 8.9 MG/DL (8.5-10.1) Current Medications Medications (Trade) Dose Ordered Sig/Aminata Route PRN Reason Start Time Stop Time Status Last Admin Dose Admin Acetaminophen (Tylenol) 650 mg Q4H PRN ORAL Mild Pain (Pain Scale 1-3) 05/29/18 15:30 06/26/18 07:29 Acetaminophen (Tylenol) 650 mg Q4H PRN ORAL fever (temp>100.5F) 05/29/18 15:30 06/26/18 07:29 Acetaminophen (Tylenol) 650 mg Q4H PRN RECTAL Mild Pain (Pain Scale 1-3) 05/29/18 15:30 06/26/18 07:29 Acetaminophen (Tylenol) 650 mg Q4H PRN RECTAL fever (temp>100.5F) 05/29/18 15:30 06/26/18 07:29 Albuterol/ Ipratropium (Albuterol/ Ipratropium) 3 ml Q8HRT INH 05/29/18 23:00 06/03/18 22:59 06/01/18 08:26 Amlodipine Besylate (Norvasc) 10 mg DAILY ORAL 05/30/18 09:00 06/26/18 08:59 06/01/18 08:50 Aspirin (ASA) 81 mg DAILY NG 05/30/18 09:00 06/28/18 08:59 06/01/18 08:50 Atorvastatin Calcium (Lipitor) 80 mg BEDTIME ORAL 05/29/18 21:00 06/27/18 20:59 05/31/18 21:03 Bisacodyl (Dulcolax) 10 mg DAILYPRN PRN RECTAL Constipation 05/29/18 16:30 06/28/18 16:29 Cefazolin Sodium 1 gm/Dextrose 110 ml @ 220 mls/hr Q8HR IVPB 05/29/18 22:00 06/04/18 15:29 06/01/18 05:30 Clopidogrel Bisulfate (Plavix) 75 mg DAILY ORAL 05/30/18 09:00 06/26/18 08:59 06/01/18 08:51 Dextrose (Dextrose 50%) 25 ml STAT PRN IV Hypoglycemia 05/29/18 16:00 06/28/18 15:59 Dextrose (Dextrose 50%) 50 ml STAT PRN IV Hypoglycemia 05/29/18 16:00 06/28/18 15:59 Docusate Sodium (Colace) 100 mg EVERY 12 HOURS ORAL 05/29/18 21:00 06/26/18 08:59 06/01/18 08:50 Furosemide (Lasix) 40 mg DAILY ORAL 05/30/18 09:00 06/26/18 08:59 06/01/18 08:50 Heparin Sodium (Porcine) (Heparin 5000 units/ml) 5,000 units EVERY 8 HOURS SUBQ 05/29/18 22:00 06/26/18 13:59 05/31/18 14:04 Magnesium Hydroxide (Mom) 30 ml HSPRN PRN ORAL Constipation 05/29/18 16:30 06/28/18 16:29 Mirtazapine (Remeron) 15 mg BEDTIME ORAL 05/29/18 21:00 06/27/18 20:59 05/31/18 21:03 Morphine Sulfate (Morphine Sulfate) 4 mg Q3H PRN IVP PAIN 4-10 05/29/18 16:00 06/04/18 15:59 06/01/18 08:51 Ondansetron HCl (Zofran) 4 mg Q6H PRN IVP Nausea & Vomiting 05/29/18 16:30 06/26/18 16:29 Polyethylene Glycol (Miralax) 17 gm DAILYPRN PRN ORAL Constipation 05/30/18 07:30 06/26/18 07:29 Ranolazine (Ranexa ER 500mg) 500 mg Q12HR ORAL 05/29/18 21:00 06/27/18 20:59 06/01/18 08:51 Theophylline (Wilfrido-Dur) 100 mg EVERY 12 HOURS ORAL 05/29/18 21:00 06/26/18 08:59 06/01/18 08:50 Jessica Parry M.D. Jun 01, 2018 12:29
--- NOTE | 2018-06-01 12:42 | Diagnostic Imaging Report ---
Indication: left ankle pain Comparison: None Findings: 3 views of the left ankle obtained. No acute fracture, malalignment, periostitis, or osteochondral defects are identified. Soft tissues are unremarkable. Impression: No acute findings
--- NOTE | 2018-06-01 12:43 | Diagnostic Imaging Report ---
Indication: Pain right ankle ankle pain/trauma Comparison: 05/14/2017 Findings: 3 views of the right ankle obtained. There is a deformity of the ankle due to old fracture injury involving the distal tibia and fibula. The fracture is healed and varus angulation. There is moderate arthrosis of the tibiotalar joint which shows narrowing, irregularity. The bones are osteopenic. No acute injury is appreciated. IMPRESSION: Severe post fracture deformity of the ankle as described above. No significant change.
--- NOTE | 2018-06-01 13:53 | General Surgery Progress Note ---
General Surgery-Progress Note Subjective Symptoms: improved Additional Comments pain improving. no n/v/f/c. comfortable. Objective Last 24 Hour Vital Signs Date Time Temp Pulse Resp B/P (MAP) Pulse Ox O2 Delivery O2 Flow Rate FiO2 06/01/18 12:00 97.1 88 18 129/74 (92) 96 97.1 06/01/18 08:50 92 135/76 06/01/18 08:31 91 20 99 Room Air 21 06/01/18 08:25 90 18 98 Room Air 21 06/01/18 08:15 Room Air 06/01/18 08:00 97.5 92 20 135/76 (95) 94 97.5 06/01/18 04:00 98.0 87 20 143/73 (96) 95 98.0 06/01/18 00:00 98.5 91 19 156/76 (102) 97 98.5 05/31/18 23:12 Room Air 05/31/18 23:11 96 16 96 Room Air 05/31/18 21:00 Room Air 05/31/18 20:00 99.2 78 19 101/73 (82) 96 99.2 05/31/18 16:34 97.5 05/31/18 16:04 97.5 05/31/18 16:00 98.2 93 22 130/70 (90) 99 98.2 05/31/18 15:13 99 20 97 Room Air 21 05/31/18 15:07 95 20 97 Room Air 21 I&O Intake and Output 05/31/18 06/01/18 19:00 07:00 Intake Total 480 ml Output Total 800 ml 1000 ml Balance -320 ml -1000 ml Intake Oral 480 ml Output Urine Total 800 ml 1000 ml # Voids 1 Wound: clean Drains: none Cardiovascular: RSR Respiratory: clear Abdomen: soft, non-tender, present bowel sounds Extremities: no edema, no cyanosis Laboratory Tests Test 06/01/18 07:15 White Blood Count 5.3 K/UL (4.8-10.8) Red Blood Count 5.36 M/UL (4.70-6.10) Hemoglobin 14.0 G/DL (14.2-18.0) L Hematocrit 45.1 % (42.0-52.0) Mean Corpuscular Volume 84 FL (80-99) Mean Corpuscular Hemoglobin 26.1 PG (27.0-31.0) L Mean Corpuscular Hemoglobin Concent 31.0 G/DL (32.0-36.0) L Red Cell Distribution Width 16.5 % (11.6-14.8) H Platelet Count 275 K/UL (150-450) Mean Platelet Volume 6.4 FL (6.5-10.1) L Neutrophils (%) (Auto) 35.8 % (45.0-75.0) L Lymphocytes (%) (Auto) 40.2 % (20.0-45.0) Monocytes (%) (Auto) 12.8 % (1.0-10.0) H Eosinophils (%) (Auto) 9.4 % (0.0-3.0) H Basophils (%) (Auto) 1.8 % (0.0-2.0) Sodium Level 135 MMOL/L (136-145) L Potassium Level 4.4 MMOL/L (3.5-5.1) Chloride Level 99 MMOL/L (98-107) Carbon Dioxide Level 29 MMOL/L (21-32) Anion Gap 8 mmol/L (5-15) Blood Urea Nitrogen 23 mg/dL (7-18) H Creatinine 1.6 MG/DL (0.55-1.30) H Estimat Glomerular Filtration Rate 52.4 mL/min (>60) Glucose Level 121 MG/DL (74-106) H Calcium Level 8.9 MG/DL (8.5-10.1) Plan Problems: (1) Nonhealing ulcer of right lower extremity Assessment & Plan: 67 M with slowly healing right lateral ankle wound. states >2 years but healing. can see area of larger wound that has been slowly healing. some mild cellulitis. mild trace edema. proximally dry. venous duplex / arterial duplex studies done within last few weeks and reviewed. calcified vessels distally but still has flow. -no acute surgical intervention necessary. -honey gel and foam dressing over ulcer -skin protectant and lotion -keep pressure off wound -okay to shower -appreciate podiatry input -will monitor while in hospital. thank you for this consultation. Ugo Simms Jun 01, 2018 13:53
--- NOTE | 2018-06-01 14:08 | Pulmonology Progress Note ---
Assessment/Plan Problems: (1) COPD exacerbation (2) Nonhealing ulcer of right lower extremity (3) Diabetic foot ulcer (4) CAD (coronary artery disease) (5) DM (diabetes mellitus) (6) HTN (hypertension) Assessment/Plan less short of breath in better spirit less sob doing better wound care ID evaluation appreciated surgical evaluation appreciated pain management Subjective ROS Limited/Unobtainable: No Constitutional: Reports: no symptoms HEENT: Repors: no symptoms Respiratory: Reports: no symptoms Cardiovascular: Reports: no symptoms Allergies: Coded Allergies: EGG (Verified Allergy, Unknown, 09/22/15) MEPERIDINE (Verified Allergy, Unknown, 12/21/10) NITROGLYCERIN (Verified Allergy, Unknown, hives, 02/18/17) Objective Last 24 Hour Vital Signs Date Time Temp Pulse Resp B/P (MAP) Pulse Ox O2 Delivery O2 Flow Rate FiO2 06/01/18 12:00 97.1 88 18 129/74 (92) 96 97.1 06/01/18 08:50 92 135/76 06/01/18 08:31 91 20 99 Room Air 21 06/01/18 08:25 90 18 98 Room Air 21 06/01/18 08:15 Room Air 06/01/18 08:00 97.5 92 20 135/76 (95) 94 97.5 06/01/18 04:00 98.0 87 20 143/73 (96) 95 98.0 06/01/18 00:00 98.5 91 19 156/76 (102) 97 98.5 05/31/18 23:12 Room Air 05/31/18 23:11 96 16 96 Room Air 21 05/31/18 21:00 Room Air 05/31/18 20:00 99.2 78 19 101/73 (82) 96 99.2 05/31/18 16:34 97.5 05/31/18 16:04 97.5 05/31/18 16:00 98.2 93 22 130/70 (90) 99 98.2 05/31/18 15:13 99 20 97 Room Air 21 05/31/18 15:07 95 20 97 Room Air 21 Intake and Output 05/31/18 06/01/18 19:00 07:00 Intake Total 480 ml Output Total 800 ml 1000 ml Balance -320 ml -1000 ml Intake Oral 480 ml Output Urine Total 800 ml 1000 ml # Voids 1 Objective General Appearance: WD/WN HEENT: normocephalic, atraumatic Respiratory/Chest: chest wall non-tender, lungs clear Breasts: no masses Cardiovascular: normal peripheral pulses, normal rate Abdomen: normal bowel sounds, no organomegaly 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: student dean II-XII grossly normal Lymphatic: no neck adenopathy Laboratory Tests 06/01/18 07:15: White Blood Count 5.3, Red Blood Count 5.36, Hemoglobin 14.0L, Hematocrit 45.1, Mean Corpuscular Volume 84, Mean Corpuscular Hemoglobin 26.1L, Mean Corpuscular Hemoglobin Concent 31.0L, Red Cell Distribution Width 16.5H, Platelet Count 275 , Mean Platelet Volume 6.4L, Neutrophils (%) (Auto) 35.8L, Lymphocytes (%) (Auto ) 40.2, Monocytes (%) (Auto) 12.8H, Eosinophils (%) (Auto) 9.4H, Basophils (%) ( Auto) 1.8, Sodium Level 135L, Potassium Level 4.4, Chloride Level 99, Carbon Dioxide Level 29, Anion Gap 8, Blood Urea Nitrogen 23H, Creatinine 1.6H, Estimat Glomerular Filtration Rate 52.4, Glucose Level 121H, Calcium Level 8.9 Current Medications Medications (Trade) Dose Ordered Sig/Aminata Route PRN Reason Start Time Stop Time Status Last Admin Dose Admin Acetaminophen (Tylenol) 650 mg Q4H PRN ORAL Mild Pain (Pain Scale 1-3) 05/29/18 15:30 06/26/18 07:29 Acetaminophen (Tylenol) 650 mg Q4H PRN ORAL fever (temp>100.5F) 05/29/18 15:30 06/26/18 07:29 Acetaminophen (Tylenol) 650 mg Q4H PRN RECTAL Mild Pain (Pain Scale 1-3) 05/29/18 15:30 06/26/18 07:29 Acetaminophen (Tylenol) 650 mg Q4H PRN RECTAL fever (temp>100.5F) 05/29/18 15:30 06/26/18 07:29 Albuterol/ Ipratropium (Albuterol/ Ipratropium) 3 ml Q8HRT INH 05/29/18 23:00 06/03/18 22:59 06/01/18 08:26 Amlodipine Besylate (Norvasc) 10 mg DAILY ORAL 05/30/18 09:00 06/26/18 08:59 06/01/18 08:50 Aspirin (ASA) 81 mg DAILY NG 05/30/18 09:00 06/28/18 08:59 06/01/18 08:50 Atorvastatin Calcium (Lipitor) 80 mg BEDTIME ORAL 05/29/18 21:00 06/27/18 20:59 05/31/18 21:03 Bisacodyl (Dulcolax) 10 mg DAILYPRN PRN RECTAL Constipation 05/29/18 16:30 06/28/18 16:29 Cefazolin Sodium 1 gm/Dextrose 110 ml @ 220 mls/hr Q8HR IVPB 05/29/18 22:00 06/04/18 15:29 06/01/18 05:30 Clopidogrel Bisulfate (Plavix) 75 mg DAILY ORAL 05/30/18 09:00 06/26/18 08:59 06/01/18 08:51 Dextrose (Dextrose 50%) 25 ml STAT PRN IV Hypoglycemia 05/29/18 16:00 06/28/18 15:59 Dextrose (Dextrose 50%) 50 ml STAT PRN IV Hypoglycemia 05/29/18 16:00 06/28/18 15:59 Docusate Sodium (Colace) 100 mg EVERY 12 HOURS ORAL 05/29/18 21:00 06/26/18 08:59 06/01/18 08:50 Furosemide (Lasix) 40 mg DAILY ORAL 05/30/18 09:00 06/26/18 08:59 06/01/18 08:50 Heparin Sodium (Porcine) (Heparin 5000 units/ml) 5,000 units EVERY 8 HOURS SUBQ 05/29/18 22:00 06/26/18 13:59 05/31/18 14:04 Magnesium Hydroxide (Mom) 30 ml HSPRN PRN ORAL Constipation 05/29/18 16:30 06/28/18 16:29 Mirtazapine (Remeron) 15 mg BEDTIME ORAL 05/29/18 21:00 06/27/18 20:59 05/31/18 21:03 Morphine Sulfate (Morphine Sulfate) 4 mg Q3H PRN IVP PAIN 4-10 05/29/18 16:00 06/04/18 15:59 06/01/18 13:00 Ondansetron HCl (Zofran) 4 mg Q6H PRN IVP Nausea & Vomiting 05/29/18 16:30 06/26/18 16:29 Polyethylene Glycol (Miralax) 17 gm DAILYPRN PRN ORAL Constipation 05/30/18 07:30 06/26/18 07:29 Ranolazine (Ranexa ER 500mg) 500 mg Q12HR ORAL 05/29/18 21:00 06/27/18 20:59 06/01/18 08:51 Theophylline (Wilfrido-Dur) 100 mg EVERY 12 HOURS ORAL 05/29/18 21:00 06/26/18 08:59 06/01/18 08:50 Jessie Magana MD Jun 01, 2018 14:08
[2018-06-01 16:00] VITALS: BP 141/80
[2018-06-01 20:00] VITALS: BP 149/81
[2018-06-01] MEDS: Atorvastatin 80mg tab ORAL SCH (21:09)
[2018-06-02] VITALS: BP 134/73
[2018-06-02] MEDS: Morphine Sulfate 4mg/ml Inj (IV USE ONLY) IVP PRN ×4 (03:02→12:31)
[2018-06-02 04:00] VITALS: BP 128/77
[2018-06-02] MEDS: ceFAZolin sod 1 GM in D5W 110 ML IVPB SCH ×2 (06:00→13:36)
[2018-06-02] MEDS: Heparin 5000 units/ml inj SUBQ SCH ×2 (06:00→13:50)
[2018-06-02 06:37] LABS: BASOPHILS % (AUTO) 1.7 % (0.0-2.0); EOSINOPHILS % (AUTO) 8.1 % (0.0-3.0); HEMATOCRIT 44.8 % (42.0-52.0); LYMPHOCYTES % (AUTO) 36.2 % (20.0-45.0); MEAN CORPUSCULAR VOLUME 84 FL (80-99); MONOCYTES % (AUTO) 15.3 % (1.0-10.0); NEUTROPHILS % (AUTO) 38.7 % (45.0-75.0); PLATELET COUNT 309 K/UL (150-450); RED CELL DISTRIBUTION WIDTH 16.6 % (11.6-14.8); WHITE BLOOD COUNT 6.1 K/UL (4.8-10.8)
[2018-06-02] MEDS: Albuterol/Ipratropium 3ml neb INH SCH (07:00)
[2018-06-02 07:03] LABS: ANION GAP 5 mmol/L (5-15); BLOOD UREA NITROGEN 28 mg/dL (7-18); CALCIUM 9.2 MG/DL (8.5-10.1); CARBON DIOXIDE 30 MMOL/L (21-32); CHLORIDE 100 MMOL/L (98-107); CREATININE 1.6 MG/DL (0.55-1.30); POTASSIUM 4.9 MMOL/L (3.5-5.1); SODIUM 135 MMOL/L (136-145)
[2018-06-02 08:00] VITALS: BP 130/71
[2018-06-02] MEDS: Docusate 100mg cap ORAL SCH (08:59)
[2018-06-02] MEDS: Ranolazine 500mg tab ORAL SCH (09:00)
[2018-06-02] MEDS: Furosemide 40mg tab ORAL SCH (09:00)
[2018-06-02] MEDS: Aspirin Baby 81mg NG SCH (09:00)
[2018-06-02] MEDS: Theophylline ER 100mg ORAL SCH (09:00)
--- NOTE | 2018-06-02 10:44 | General Surgery Progress Note ---
General Surgery-Progress Note Subjective Symptoms: improved, tolerating diet, passing flatus Objective Last 24 Hour Vital Signs Date Time Temp Pulse Resp B/P (MAP) Pulse Ox O2 Delivery O2 Flow Rate FiO2 06/02/18 09:00 89 130/71 06/02/18 08:00 97.3 89 20 130/71 (90) 96 97.3 06/02/18 08:00 Room Air 06/02/18 07:56 72 18 Room Air 21 06/02/18 07:55 Room Air 06/02/18 07:55 Room Air 06/02/18 04:00 97.4 87 19 128/77 (94) 93 97.4 06/02/18 00:00 98.3 87 20 134/73 (93) 93 98.3 06/01/18 23:29 78 18 99 Room Air 21 06/01/18 23:19 87 20 97 Room Air 21 06/01/18 21:00 Room Air 06/01/18 20:00 98.7 86 20 149/81 (103) 98 98.7 06/01/18 19:23 76 18 Room Air 21 06/01/18 16:00 98.7 92 17 141/80 (100) 97 98.7 06/01/18 15:10 Room Air 06/01/18 15:10 Room Air 21 06/01/18 12:00 97.1 88 18 129/74 (92) 96 97.1 I&O Intake and Output 06/01/18 06/02/18 19:00 07:00 Intake Total 840 ml 220 ml Output Total 2000 ml Balance 840 ml -1780 ml Intake Oral 840 ml IV Total 220 ml Output Urine Total 2000 ml # Voids 6 Wound: clean, dry Drains: none Cardiovascular: RSR Respiratory: clear Abdomen: soft, flat, non-tender, present bowel sounds Extremities: no edema, no cyanosis Laboratory Tests Test 06/02/18 06:00 White Blood Count 6.1 K/UL (4.8-10.8) Red Blood Count 5.30 M/UL (4.70-6.10) Hemoglobin 14.0 G/DL (14.2-18.0) L Hematocrit 44.8 % (42.0-52.0) Mean Corpuscular Volume 84 FL (80-99) Mean Corpuscular Hemoglobin 26.3 PG (27.0-31.0) L Mean Corpuscular Hemoglobin Concent 31.2 G/DL (32.0-36.0) L Red Cell Distribution Width 16.6 % (11.6-14.8) H Platelet Count 309 K/UL (150-450) Mean Platelet Volume 6.4 FL (6.5-10.1) L Neutrophils (%) (Auto) 38.7 % (45.0-75.0) L Lymphocytes (%) (Auto) 36.2 % (20.0-45.0) Monocytes (%) (Auto) 15.3 % (1.0-10.0) H Eosinophils (%) (Auto) 8.1 % (0.0-3.0) H Basophils (%) (Auto) 1.7 % (0.0-2.0) Sodium Level 135 MMOL/L (136-145) L Potassium Level 4.9 MMOL/L (3.5-5.1) Chloride Level 100 MMOL/L (98-107) Carbon Dioxide Level 30 MMOL/L (21-32) Anion Gap 5 mmol/L (5-15) Blood Urea Nitrogen 28 mg/dL (7-18) H Creatinine 1.6 MG/DL (0.55-1.30) H Estimat Glomerular Filtration Rate 52.4 mL/min (>60) Glucose Level 88 MG/DL (74-106) Calcium Level 9.2 MG/DL (8.5-10.1) Plan Problems: (1) Nonhealing ulcer of right lower extremity Assessment & Plan: 67 M with slowly healing right lateral ankle wound. states >2 years but healing. can see area of larger wound that has been slowly healing. some mild cellulitis. mild trace edema. proximally dry. venous duplex / arterial duplex studies done within last few weeks and reviewed. calcified vessels distally but still has flow. -no acute surgical intervention necessary. -honey gel and foam dressing over ulcer -skin protectant and lotion -keep pressure off wound -okay to shower -appreciate podiatry input -will monitor while in hospital. thank you for this consultation. Ugo Simms Jun 02, 2018 10:44
--- NOTE | 2018-06-02 10:45 | Infectious Diseases Prog Note ---
Assessment/Plan Assessment/Plan Assessment: Bl leg swelling; R>L R leg cellulitis; resolving Dyspnea- -cXR: Findings suggestive of COPD. Correlate clinically. No definite focal consolidation. Afebrile, no leukocytosis REcent B/l Leg cellulitis (L>R), s/p Rx R Ankle chronic ulcer- healing, no signs of infection -R foot xray 03/2018: No acute injury identified. Abnormal fifth MPJ joint which may be on the basis of previous surgery/trauma or old erosive process. Osteoporosis -a. duplex: A mild (10-30%) stenosis is seen in the mid superficial femoral artery. There is no evidence of occlusion within this segment. HTN severe malnutrition MDD tobacco abuse seizure disorder emphysema DM2 CAD s/p CABG COPD -recent exacerbation requiring admission 02/2018 bedbound Plan: -Continue IV Ancef #6/7 for R leg cellulitis; upon discharge can be transitioned to PO Keflex -05/16 SP Ancef # 5 -05/12 SP Cefepime and Zosyn x1 -/ SP PO Levaquin #3 -03/23/18 SP Zosyn #2 -Monitor CBC/BMP, temperatures -management of swelling per primary and cardiology -wound care per hosp protocol Thank you for this consultation. Will continue to follow along with you. Discussed with RN Subjective Allergies: Coded Allergies: EGG (Verified Allergy, Unknown, 09/22/15) MEPERIDINE (Verified Allergy, Unknown, 12/21/10) NITROGLYCERIN (Verified Allergy, Unknown, hives, 02/18/17) Subjective afebrile no leukocytosis Objective Vital Signs Last 24 Hour Vital Signs Date Time Temp Pulse Resp B/P (MAP) Pulse Ox O2 Delivery O2 Flow Rate FiO2 06/02/18 09:00 89 130/71 06/02/18 08:00 97.3 89 20 130/71 (90) 96 97.3 06/02/18 08:00 Room Air 06/02/18 07:56 72 18 Room Air 21 06/02/18 07:55 Room Air 06/02/18 07:55 Room Air 06/02/18 04:00 97.4 87 19 128/77 (94) 93 97.4 06/02/18 00:00 98.3 87 20 134/73 (93) 93 98.3 06/01/18 23:29 78 18 99 Room Air 21 06/01/18 23:19 87 20 97 Room Air 21 06/01/18 21:00 Room Air 06/01/18 20:00 98.7 86 20 149/81 (103) 98 98.7 06/01/18 19:23 76 18 Room Air 21 06/01/18 16:00 98.7 92 17 141/80 (100) 97 98.7 06/01/18 15:10 Room Air 06/01/18 15:10 Room Air 21 06/01/18 12:00 97.1 88 18 129/74 (92) 96 97.1 Height (Feet): 6 Height (Inches): 1.00 Weight (Pounds): 133 Objective General Appearance: no apparent distress Lines, tubes and drains: peripheral HEENT: mucous membranes moist Neck: normal inspection Respiratory/Chest: normal breath sounds, no respiratory distress, no accessory muscle use Cardiovascular/Chest: normal rate Abdomen: non tender, soft, no organomegaly, no mass Extremities: trace edema, other - right lateral malleolus ulcer slowly healing. small open area and can see remnent of prior larger wound. palpable but poor peripheral pulses. dry skin; R leg cellulitis resolving; swelling much improved Skin Exam: normal pigmentation, warm/dry Neurologic: alert, oriented x 3 Laboratory Tests Test 06/02/18 06:00 White Blood Count 6.1 K/UL (4.8-10.8) Red Blood Count 5.30 M/UL (4.70-6.10) Hemoglobin 14.0 G/DL (14.2-18.0) L Hematocrit 44.8 % (42.0-52.0) Mean Corpuscular Volume 84 FL (80-99) Mean Corpuscular Hemoglobin 26.3 PG (27.0-31.0) L Mean Corpuscular Hemoglobin Concent 31.2 G/DL (32.0-36.0) L Red Cell Distribution Width 16.6 % (11.6-14.8) H Platelet Count 309 K/UL (150-450) Mean Platelet Volume 6.4 FL (6.5-10.1) L Neutrophils (%) (Auto) 38.7 % (45.0-75.0) L Lymphocytes (%) (Auto) 36.2 % (20.0-45.0) Monocytes (%) (Auto) 15.3 % (1.0-10.0) H Eosinophils (%) (Auto) 8.1 % (0.0-3.0) H Basophils (%) (Auto) 1.7 % (0.0-2.0) Sodium Level 135 MMOL/L (136-145) L Potassium Level 4.9 MMOL/L (3.5-5.1) Chloride Level 100 MMOL/L (98-107) Carbon Dioxide Level 30 MMOL/L (21-32) Anion Gap 5 mmol/L (5-15) Blood Urea Nitrogen 28 mg/dL (7-18) H Creatinine 1.6 MG/DL (0.55-1.30) H Estimat Glomerular Filtration Rate 52.4 mL/min (>60) Glucose Level 88 MG/DL (74-106) Calcium Level 9.2 MG/DL (8.5-10.1) Current Medications Medications (Trade) Dose Ordered Sig/Aminata Route PRN Reason Start Time Stop Time Status Last Admin Dose Admin Acetaminophen (Tylenol) 650 mg Q4H PRN ORAL Mild Pain (Pain Scale 1-3) 05/29/18 15:30 06/26/18 07:29 Acetaminophen (Tylenol) 650 mg Q4H PRN ORAL fever (temp>100.5F) 05/29/18 15:30 06/26/18 07:29 Acetaminophen (Tylenol) 650 mg Q4H PRN RECTAL Mild Pain (Pain Scale 1-3) 05/29/18 15:30 06/26/18 07:29 Acetaminophen (Tylenol) 650 mg Q4H PRN RECTAL fever (temp>100.5F) 05/29/18 15:30 06/26/18 07:29 Albuterol/ Ipratropium (Albuterol/ Ipratropium) 3 ml Q8HRT INH 05/29/18 23:00 06/03/18 22:59 06/01/18 23:21 Amlodipine Besylate (Norvasc) 10 mg DAILY ORAL 05/30/18 09:00 06/26/18 08:59 06/02/18 09:00 Aspirin (ASA) 81 mg DAILY NG 05/30/18 09:00 06/28/18 08:59 06/02/18 09:00 Atorvastatin Calcium (Lipitor) 80 mg BEDTIME ORAL 05/29/18 21:00 06/27/18 20:59 06/01/18 21:09 Bisacodyl (Dulcolax) 10 mg DAILYPRN PRN RECTAL Constipation 05/29/18 16:30 06/28/18 16:29 Cefazolin Sodium 1 gm/Dextrose 110 ml @ 220 mls/hr Q8HR IVPB 05/29/18 22:00 06/04/18 15:29 06/02/18 06:00 Clopidogrel Bisulfate (Plavix) 75 mg DAILY ORAL 05/30/18 09:00 06/26/18 08:59 06/02/18 09:00 Dextrose (Dextrose 50%) 25 ml STAT PRN IV Hypoglycemia 05/29/18 16:00 06/28/18 15:59 Dextrose (Dextrose 50%) 50 ml STAT PRN IV Hypoglycemia 05/29/18 16:00 06/28/18 15:59 Docusate Sodium (Colace) 100 mg EVERY 12 HOURS ORAL 05/29/18 21:00 06/26/18 08:59 06/02/18 08:59 Furosemide (Lasix) 40 mg DAILY ORAL 05/30/18 09:00 06/26/18 08:59 06/02/18 09:00 Heparin Sodium (Porcine) (Heparin 5000 units/ml) 5,000 units EVERY 8 HOURS SUBQ 05/29/18 22:00 06/26/18 13:59 05/31/18 14:04 Magnesium Hydroxide (Mom) 30 ml HSPRN PRN ORAL Constipation 05/29/18 16:30 06/28/18 16:29 Mirtazapine (Remeron) 15 mg BEDTIME ORAL 05/29/18 21:00 06/27/18 20:59 06/01/18 21:09 Morphine Sulfate (Morphine Sulfate) 4 mg Q3H PRN IVP PAIN 4-10 05/29/18 16:00 06/04/18 15:59 06/02/18 09:00 Ondansetron HCl (Zofran) 4 mg Q6H PRN IVP Nausea & Vomiting 05/29/18 16:30 06/26/18 16:29 Polyethylene Glycol (Miralax) 17 gm DAILYPRN PRN ORAL Constipation 05/30/18 07:30 06/26/18 07:29 Ranolazine (Ranexa ER 500mg) 500 mg Q12HR ORAL 05/29/18 21:00 06/27/18 20:59 06/02/18 09:00 Theophylline (Wilfrido-Dur) 100 mg EVERY 12 HOURS ORAL 05/29/18 21:00 06/26/18 08:59 06/02/18 09:00 Jessica Parry M.D. Jun 02, 2018 10:45
--- NOTE | 2018-06-02 11:12 | General Progress Note ---
Assessment/Plan Assessment/Plan mdd anxiety insomnia -remeron 15mg qhs ptovided ro/st Subjective Date patient seen: Jun 01, 2018 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: Reports: anxiety, depressed, emotional problems Allergies: Coded Allergies: EGG (Verified Allergy, Unknown, 09/22/15) MEPERIDINE (Verified Allergy, Unknown, 12/21/10) NITROGLYCERIN (Verified Allergy, Unknown, hives, 02/18/17) Objective Last 24 Hour Vital Signs Date Time Temp Pulse Resp B/P (MAP) Pulse Ox O2 Delivery O2 Flow Rate FiO2 06/02/18 09:00 89 130/71 06/02/18 08:00 97.3 89 20 130/71 (90) 96 97.3 06/02/18 08:00 Room Air 06/02/18 07:56 72 18 Room Air 06/02/18 07:55 Room Air 06/02/18 07:55 Room Air 06/02/18 04:00 97.4 87 19 128/77 (94) 93 97.4 06/02/18 00:00 98.3 87 20 134/73 (93) 93 98.3 06/01/18 23:29 78 18 99 Room Air 21 06/01/18 23:19 87 20 97 Room Air 21 06/01/18 21:00 Room Air 06/01/18 20:00 98.7 86 20 149/81 (103) 98 98.7 06/01/18 19:23 76 18 Room Air 21 06/01/18 16:00 98.7 92 17 141/80 (100) 97 98.7 06/01/18 15:10 Room Air 06/01/18 15:10 Room Air 21 06/01/18 12:00 97.1 88 18 129/74 (92) 96 97.1 Intake and Output 06/01/18 06/02/18 19:00 07:00 Intake Total 840 ml 220 ml Output Total 2000 ml Balance 840 ml -1780 ml Intake Oral 840 ml IV Total 220 ml Output Urine Total 2000 ml # Voids 6 Laboratory Tests 06/02/18 06:00: White Blood Count 6.1, Red Blood Count 5.30, Hemoglobin 14.0L, Hematocrit 44.8, Mean Corpuscular Volume 84, Mean Corpuscular Hemoglobin 26.3L, Mean Corpuscular Hemoglobin Concent 31.2L, Red Cell Distribution Width 16.6H, Platelet Count 309 , Mean Platelet Volume 6.4L, Neutrophils (%) (Auto) 38.7L, Lymphocytes (%) (Auto ) 36.2, Monocytes (%) (Auto) 15.3H, Eosinophils (%) (Auto) 8.1H, Basophils (%) ( Auto) 1.7, Sodium Level 135L, Potassium Level 4.9, Chloride Level 100, Carbon Dioxide Level 30, Anion Gap 5, Blood Urea Nitrogen 28H, Creatinine 1.6H, Estimat Glomerular Filtration Rate 52.4, Glucose Level 88, Calcium Level 9.2 Height (Feet): 6 Height (Inches): 1.00 Weight (Pounds): 133 Rachael Buckley MD Jun 02, 2018 11:12
--- NOTE | 2018-06-02 11:13 | General Progress Note ---
Assessment/Plan Assessment/Plan mdd anxiety insomnia -remeron 15mg qhs ptovided ro/st Subjective Date patient seen: Jun 02, 2018 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: Reports: anxiety, depressed Allergies: Coded Allergies: EGG (Verified Allergy, Unknown, 09/22/15) MEPERIDINE (Verified Allergy, Unknown, 12/21/10) NITROGLYCERIN (Verified Allergy, Unknown, hives, 02/18/17) Subjective The pt is doing well. No behaviors and is eating well. Objective Last 24 Hour Vital Signs Date Time Temp Pulse Resp B/P (MAP) Pulse Ox O2 Delivery O2 Flow Rate FiO2 06/02/18 09:00 89 130/71 06/02/18 08:00 97.3 89 20 130/71 (90) 96 97.3 06/02/18 08:00 Room Air 06/02/18 07:56 72 18 Room Air 06/02/18 07:55 Room Air 06/02/18 07:55 Room Air 06/02/18 04:00 97.4 87 19 128/77 (94) 93 97.4 06/02/18 00:00 98.3 87 20 134/73 (93) 93 98.3 06/01/18 23:29 78 18 99 Room Air 21 06/01/18 23:19 87 20 97 Room Air 21 06/01/18 21:00 Room Air 06/01/18 20:00 98.7 86 20 149/81 (103) 98 98.7 06/01/18 19:23 76 18 Room Air 21 06/01/18 16:00 98.7 92 17 141/80 (100) 97 98.7 06/01/18 15:10 Room Air 06/01/18 15:10 Room Air 06/01/18 12:00 97.1 88 18 129/74 (92) 96 97.1 Intake and Output 06/01/18 06/02/18 19:00 07:00 Intake Total 840 ml 220 ml Output Total 2000 ml Balance 840 ml -1780 ml Intake Oral 840 ml IV Total 220 ml Output Urine Total 2000 ml # Voids 6 Laboratory Tests 06/02/18 06:00: White Blood Count 6.1, Red Blood Count 5.30, Hemoglobin 14.0L, Hematocrit 44.8, Mean Corpuscular Volume 84, Mean Corpuscular Hemoglobin 26.3L, Mean Corpuscular Hemoglobin Concent 31.2L, Red Cell Distribution Width 16.6H, Platelet Count 309 , Mean Platelet Volume 6.4L, Neutrophils (%) (Auto) 38.7L, Lymphocytes (%) (Auto ) 36.2, Monocytes (%) (Auto) 15.3H, Eosinophils (%) (Auto) 8.1H, Basophils (%) ( Auto) 1.7, Sodium Level 135L, Potassium Level 4.9, Chloride Level 100, Carbon Dioxide Level 30, Anion Gap 5, Blood Urea Nitrogen 28H, Creatinine 1.6H, Estimat Glomerular Filtration Rate 52.4, Glucose Level 88, Calcium Level 9.2 Height (Feet): 6 Height (Inches): 1.00 Weight (Pounds): 133 General Appearance: alert Neurologic: oriented x 3, responsive, depressed affect Rachael Buckley MD Jun 02, 2018 11:13
[2018-06-02 12:00] VITALS: BP 113/72
--- NOTE | 2018-06-02 12:56 | Pulmonology Progress Note ---
Assessment/Plan Problems: (1) COPD exacerbation (2) Nonhealing ulcer of right lower extremity (3) Diabetic foot ulcer (4) CAD (coronary artery disease) (5) DM (diabetes mellitus) (6) HTN (hypertension) Assessment/Plan better less sob doing better wound care ID evaluation appreciated surgical evaluation appreciated pain management Subjective ROS Limited/Unobtainable: No Constitutional: Reports: no symptoms HEENT: Repors: no symptoms Respiratory: Reports: no symptoms Allergies: Coded Allergies: EGG (Verified Allergy, Unknown, 09/22/15) MEPERIDINE (Verified Allergy, Unknown, 12/21/10) NITROGLYCERIN (Verified Allergy, Unknown, hives, 02/18/17) Objective Last 24 Hour Vital Signs Date Time Temp Pulse Resp B/P (MAP) Pulse Ox O2 Delivery O2 Flow Rate FiO2 06/02/18 12:00 97.3 98 20 113/72 (86) 98 97.3 06/02/18 09:00 89 130/71 06/02/18 08:00 97.3 89 20 130/71 (90) 96 97.3 06/02/18 08:00 Room Air 06/02/18 07:56 72 18 Room Air 21 06/02/18 07:55 Room Air 06/02/18 07:55 Room Air 06/02/18 04:00 97.4 87 19 128/77 (94) 93 97.4 06/02/18 00:00 98.3 87 20 134/73 (93) 93 98.3 06/01/18 23:29 78 18 99 Room Air 21 06/01/18 23:19 87 20 97 Room Air 21 06/01/18 21:00 Room Air 06/01/18 20:00 98.7 86 20 149/81 (103) 98 98.7 06/01/18 19:23 76 18 Room Air 21 06/01/18 16:00 98.7 92 17 141/80 (100) 97 98.7 06/01/18 15:10 Room Air 06/01/18 15:10 Room Air 21 Intake and Output 06/01/18 06/02/18 19:00 07:00 Intake Total 840 ml 220 ml Output Total 2000 ml Balance 840 ml -1780 ml Intake Oral 840 ml IV Total 220 ml Output Urine Total 2000 ml # Voids 6 Objective General Appearance: WD/WN HEENT: normocephalic, atraumatic Respiratory/Chest: chest wall non-tender, lungs clear Breasts: no masses Cardiovascular: normal peripheral pulses, normal rate Abdomen: normal bowel sounds, no organomegaly 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 Lymphatic: no neck adenopathy Laboratory Tests 06/02/18 06:00: White Blood Count 6.1, Red Blood Count 5.30, Hemoglobin 14.0L, Hematocrit 44.8, Mean Corpuscular Volume 84, Mean Corpuscular Hemoglobin 26.3L, Mean Corpuscular Hemoglobin Concent 31.2L, Red Cell Distribution Width 16.6H, Platelet Count 309 , Mean Platelet Volume 6.4L, Neutrophils (%) (Auto) 38.7L, Lymphocytes (%) (Auto ) 36.2, Monocytes (%) (Auto) 15.3H, Eosinophils (%) (Auto) 8.1H, Basophils (%) ( Auto) 1.7, Sodium Level 135L, Potassium Level 4.9, Chloride Level 100, Carbon Dioxide Level 30, Anion Gap 5, Blood Urea Nitrogen 28H, Creatinine 1.6H, Estimat Glomerular Filtration Rate 52.4, Glucose Level 88, Calcium Level 9.2 Current Medications Medications (Trade) Dose Ordered Sig/Aminata Route PRN Reason Start Time Stop Time Status Last Admin Dose Admin Acetaminophen (Tylenol) 650 mg Q4H PRN ORAL Mild Pain (Pain Scale 1-3) 05/29/18 15:30 06/26/18 07:29 Acetaminophen (Tylenol) 650 mg Q4H PRN ORAL fever (temp>100.5F) 05/29/18 15:30 06/26/18 07:29 Acetaminophen (Tylenol) 650 mg Q4H PRN RECTAL Mild Pain (Pain Scale 1-3) 05/29/18 15:30 06/26/18 07:29 Acetaminophen (Tylenol) 650 mg Q4H PRN RECTAL fever (temp>100.5F) 05/29/18 15:30 06/26/18 07:29 Albuterol/ Ipratropium (Albuterol/ Ipratropium) 3 ml Q8HRT INH 05/29/18 23:00 06/03/18 22:59 06/01/18 23:21 Amlodipine Besylate (Norvasc) 10 mg DAILY ORAL 05/30/18 09:00 06/26/18 08:59 06/02/18 09:00 Aspirin (ASA) 81 mg DAILY NG 05/30/18 09:00 06/28/18 08:59 06/02/18 09:00 Atorvastatin Calcium (Lipitor) 80 mg BEDTIME ORAL 05/29/18 21:00 06/27/18 20:59 06/01/18 21:09 Bisacodyl (Dulcolax) 10 mg DAILYPRN PRN RECTAL Constipation 05/29/18 16:30 06/28/18 16:29 Cefazolin Sodium 1 gm/Dextrose 110 ml @ 220 mls/hr Q8HR IVPB 05/29/18 22:00 06/04/18 15:29 06/02/18 06:00 Clopidogrel Bisulfate (Plavix) 75 mg DAILY ORAL 05/30/18 09:00 06/26/18 08:59 06/02/18 09:00 Dextrose (Dextrose 50%) 25 ml STAT PRN IV Hypoglycemia 05/29/18 16:00 06/28/18 15:59 Dextrose (Dextrose 50%) 50 ml STAT PRN IV Hypoglycemia 05/29/18 16:00 06/28/18 15:59 Docusate Sodium (Colace) 100 mg EVERY 12 HOURS ORAL 05/29/18 21:00 06/26/18 08:59 06/02/18 08:59 Furosemide (Lasix) 40 mg DAILY ORAL 05/30/18 09:00 06/26/18 08:59 06/02/18 09:00 Heparin Sodium (Porcine) (Heparin 5000 units/ml) 5,000 units EVERY 8 HOURS SUBQ 05/29/18 22:00 06/26/18 13:59 05/31/18 14:04 Magnesium Hydroxide (Mom) 30 ml HSPRN PRN ORAL Constipation 05/29/18 16:30 06/28/18 16:29 Mirtazapine (Remeron) 15 mg BEDTIME ORAL 05/29/18 21:00 06/27/18 20:59 06/01/18 21:09 Morphine Sulfate (Morphine Sulfate) 4 mg Q3H PRN IVP PAIN 4-10 05/29/18 16:00 06/04/18 15:59 06/02/18 12:31 Ondansetron HCl (Zofran) 4 mg Q6H PRN IVP Nausea & Vomiting 05/29/18 16:30 06/26/18 16:29 Polyethylene Glycol (Miralax) 17 gm DAILYPRN PRN ORAL Constipation 05/30/18 07:30 06/26/18 07:29 Ranolazine (Ranexa ER 500mg) 500 mg Q12HR ORAL 05/29/18 21:00 06/27/18 20:59 06/02/18 09:00 Theophylline (Wilfrido-Dur) 100 mg EVERY 12 HOURS ORAL 05/29/18 21:00 06/26/18 08:59 06/02/18 09:00 Jessie Magana MD Jun 02, 2018 12:55
[2018-06-02] MEDS ORDERED: CEPHALEXIN500 MG ORAL (14:09)
--- NOTE | 2018-06-02 14:59 | Cardiology Progress Note ---
Assessment/Plan Status: stable Assessment/Plan Assessment: (1) Cellulitis of right leg (2) Chronic ulcer of right leg (3) Hypothyroidism (4) Severe malnutrition (5) HTN (hypertension) (6) Chronic pain (7) ACS (acute coronary syndrome) (8) Cellulitis of right ankle (9) Ulcer of right lower leg (10) Edema (11) CHF (congestive heart failure) Plan: Continue dual antiplatelet therapy Outpatient stress test to evaluate status of stens and bypass grafts (patient did not want to do in house) nitro prn CP Continue Statin Continue BP medication Continue ranexa for refractory chest pain Wound care Ok to discharge with hospice Subjective Cardiovascular: Reports: no symptoms Respiratory: Reports: no symptoms Gastrointestinal/Abdominal: Reports: no symptoms Genitourinary: Reports: no symptoms Subjective No acute events NO chest pain Patient does not want stress test Wound dressing in place No complaints Not participating in physical therapy Tolerating PO Objective Last 24 Hour Vital Signs Date Time Temp Pulse Resp B/P (MAP) Pulse Ox O2 Delivery O2 Flow Rate FiO2 06/02/18 12:00 97.3 98 20 113/72 (86) 98 97.3 06/02/18 09:00 89 130/71 06/02/18 08:00 97.3 89 20 130/71 (90) 96 97.3 06/02/18 08:00 Room Air 06/02/18 07:56 72 18 Room Air 21 06/02/18 07:55 Room Air 06/02/18 07:55 Room Air 06/02/18 04:00 97.4 87 19 128/77 (94) 93 97.4 06/02/18 00:00 98.3 87 20 134/73 (93) 93 98.3 06/01/18 23:29 78 18 99 Room Air 21 06/01/18 23:19 87 20 97 Room Air 21 06/01/18 21:00 Room Air 06/01/18 20:00 98.7 86 20 149/81 (103) 98 98.7 06/01/18 19:23 76 18 Room Air 21 06/01/18 16:00 98.7 92 17 141/80 (100) 97 98.7 06/01/18 15:10 Room Air 06/01/18 15:10 Room Air 21 General Appearance: no apparent distress EENT: PERRL/EOMI Neck: non-tender Rhythm: NSR Cardiovascular: normal peripheral pulses Respiratory/Chest: chest wall non-tender Abdomen: normal bowel sounds Extremities: normal range of motion 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 Intake and Output 06/01/18 06/02/18 19:00 07:00 Intake Total 840 ml 220 ml Output Total 2000 ml Balance 840 ml -1780 ml Intake Oral 840 ml IV Total 220 ml Output Urine Total 2000 ml # Voids 6 Laboratory Tests Test 06/02/18 06:00 White Blood Count 6.1 K/UL (4.8-10.8) Red Blood Count 5.30 M/UL (4.70-6.10) Hemoglobin 14.0 G/DL (14.2-18.0) L Hematocrit 44.8 % (42.0-52.0) Mean Corpuscular Volume 84 FL (80-99) Mean Corpuscular Hemoglobin 26.3 PG (27.0-31.0) L Mean Corpuscular Hemoglobin Concent 31.2 G/DL (32.0-36.0) L Red Cell Distribution Width 16.6 % (11.6-14.8) H Platelet Count 309 K/UL (150-450) Mean Platelet Volume 6.4 FL (6.5-10.1) L Neutrophils (%) (Auto) 38.7 % (45.0-75.0) L Lymphocytes (%) (Auto) 36.2 % (20.0-45.0) Monocytes (%) (Auto) 15.3 % (1.0-10.0) H Eosinophils (%) (Auto) 8.1 % (0.0-3.0) H Basophils (%) (Auto) 1.7 % (0.0-2.0) Sodium Level 135 MMOL/L (136-145) L Potassium Level 4.9 MMOL/L (3.5-5.1) Chloride Level 100 MMOL/L (98-107) Carbon Dioxide Level 30 MMOL/L (21-32) Anion Gap 5 mmol/L (5-15) Blood Urea Nitrogen 28 mg/dL (7-18) H Creatinine 1.6 MG/DL (0.55-1.30) H Estimat Glomerular Filtration Rate 52.4 mL/min (>60) Glucose Level 88 MG/DL (74-106) Calcium Level 9.2 MG/DL (8.5-10.1) Adonis Winn M.D. Jun 02, 2018 14:59
[2018-06-02] MEDS ORDERED: D5NS 1000ml IV ONE (15:07)
--- NOTE | 2018-06-02 15:25 | Internal Med Progress Note ---
Subjective Date of Service: Jun 02, 2018 Physician Name Shantanu Reyna Attending Physician Phil Wright MD Allergies: Coded Allergies: EGG (Verified Allergy, Unknown, 09/22/15) MEPERIDINE (Verified Allergy, Unknown, 12/21/10) NITROGLYCERIN (Verified Allergy, Unknown, hives, 02/18/17) ROS Limited/Unobtainable: No Constitutional: Reports: no symptoms HEENT: Reports: no symptoms Cardiovascular: Reports: no symptoms Respiratory: Reports: no symptoms Gastrointestinal/Abdominal: Reports: no symptoms Genitourinary: Reports: no symptoms 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: Reports: no symptoms Subjective 67 YO M admitted with chest pain and bilateral leg swelling. Cover for [facility] Med- Dr Wright. Await discharge home today Objective Last Vital Signs Date Time Temp Pulse Resp B/P (MAP) Pulse Ox O2 Delivery O2 Flow Rate FiO2 06/02/18 12:00 97.3 98 20 113/72 (86) 98 97.3 06/02/18 08:00 Room Air 06/02/18 07:56 21 Laboratory Tests Test 06/02/18 06:00 White Blood Count 6.1 K/UL (4.8-10.8) Red Blood Count 5.30 M/UL (4.70-6.10) Hemoglobin 14.0 G/DL (14.2-18.0) L Hematocrit 44.8 % (42.0-52.0) Mean Corpuscular Volume 84 FL (80-99) Mean Corpuscular Hemoglobin 26.3 PG (27.0-31.0) L Mean Corpuscular Hemoglobin Concent 31.2 G/DL (32.0-36.0) L Red Cell Distribution Width 16.6 % (11.6-14.8) H Platelet Count 309 K/UL (150-450) Mean Platelet Volume 6.4 FL (6.5-10.1) L Neutrophils (%) (Auto) 38.7 % (45.0-75.0) L Lymphocytes (%) (Auto) 36.2 % (20.0-45.0) Monocytes (%) (Auto) 15.3 % (1.0-10.0) H Eosinophils (%) (Auto) 8.1 % (0.0-3.0) H Basophils (%) (Auto) 1.7 % (0.0-2.0) Sodium Level 135 MMOL/L (136-145) L Potassium Level 4.9 MMOL/L (3.5-5.1) Chloride Level 100 MMOL/L (98-107) Carbon Dioxide Level 30 MMOL/L (21-32) Anion Gap 5 mmol/L (5-15) Blood Urea Nitrogen 28 mg/dL (7-18) H Creatinine 1.6 MG/DL (0.55-1.30) H Estimat Glomerular Filtration Rate 52.4 mL/min (>60) Glucose Level 88 MG/DL (74-106) Calcium Level 9.2 MG/DL (8.5-10.1) Intake and Output 06/01/18 06/02/18 19:00 07:00 Intake Total 840 ml 220 ml Output Total 2000 ml Balance 840 ml -1780 ml Intake Oral 840 ml IV Total 220 ml Output Urine Total 2000 ml # Voids 6 Objective General Appearance: alert, mild distress, thin EENT: PERRL/EOMI, normal ENT inspection Neck: non-tender, normal alignment, supple, normal inspection Cardiovascular: normal peripheral pulses, normal rate, regular rhythm, no gallop/murmur, no JVD Respiratory/Chest: chest wall non-tender, lungs clear, normal breath sounds, no respiratory distress, no accessory muscle use Abdomen: normal bowel sounds, non tender, soft, no organomegaly, no mass Extremities: normal range of motion, non-tender Edema: trace edema 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 Ruled out for ACS (2) Cellulitis of right ankle Assessment & Plan: See ID note - continue ancef (3) HTN (hypertension) Assessment & Plan: Continue norvasc (4) CAD (coronary artery disease) Assessment & Plan: Continue plavix (5) COPD exacerbation (6) Nonhealing ulcer of right lower extremity Assessment & Plan: Await podiatry consult. See ID note-continue ancef (7) Edema Status: stable Assessment/Plan Discharge planning: home with home health Shantanu Reyna MD Jun 02, 2018 15:25
--- NOTE | 2018-06-04 13:51 | Discharge Summary ---
Discharge Summary Discharge Summary _ DATE OF ADMISSION: 05/27/2018 DATE OF DISCHARGE: 06/02/2018 REASON FOR ADMISSION: 67 years old male with past medical history significant for hypertension, CHF, coronary artery disease, history of [place], history of CABG, COPD, emphysema, GERD, seizure disorder ,presented to emergency departments ,with right lower extremity pain and bilateral lower extremity edema. Patient also reported chest discomfort and difficulty breathing. Patient had a chronic nonhealing wound of right lower extremity. Upon evaluation troponin was negative proBNP 447 EKG revealed no acute ischemic changes, sinus rhythm chest x-ray revealed findings consistent with COPD, but no definite focal consolidation. BUN 24 creatinine 1.7 No leukocytosis, stable hemoglobin and hematocrit Patient admitted with diagnosis of chest pain, COPD exacerbation, hypertension, coronary artery disease, GERD, bilateral lower extremity edema. CONSULTANTS: band splitter dr. Winn pulmonary Dr. Magana ID specialist Dr. Reich surgery Dr. Simms psychiatrist household chores Dr. Salcedo [facility] COURSE: Patient admitted to telemetry floor. Serial troponin were negative. EKG revealed no acute ischemic changes . Patient was ruled out for acute [place]. Director [employer] closely followed Patient was on dual antiplatelet therapy with aspirin and Plavix. Statin was continued. Lipid panel was within normal limits. Blood pressure was managed with calcium channel rasta and remained stable. Nitroglycerin was on board as needed for pain management. Ranexa was continued for refractory chest pain. Patient need outpatient evaluation of stent and bypass as per band splitter.. DVT prophylaxis provided . Through Freight Engineer closely followed. Pulmonary toilet provided around the clock and as needed with bronchodilator and Atrovent. Supplemental oxygen titrated to keep pulse oximetry above 92%. Antitussive provided as needed. Empiric antibiotic provided. Patient recently had steroid course , and at at this time it was decided to keep him off steroids, provide bronchodilator therapy, empiric antibiotic, and monitor for improvement. Follow-up chest x-ray also revealed no acute cardiopulmonary pathology. Surgeon seen and evaluated the patient for need of surgical intervention. Per surgeon, patient had right lateral ankle wound that was slowly healing. Also noted evidence of mild cellulitis and mild peripheral edema. Arterial duplex studies were done within last few weeks and noted calcified vessel disease, but still with flow. No acute surgical intervention was necessary at this time. Wound care was recommended per surgeon . He also recommended to keep pressure off the wound and gave clearance for shower. Infectious disease specialist closely followed. The patient had cellulitis of right lower extremity and was on IV antibiotics, which changed to oral to complete the course upon discharge. Database Manager seen the patient and recommended wound care and follow-up with him as outpatient. Recent arterial Duplex showed evidence of peripheral arterial disease. Blood sugar was managed with sliding scale of insulin. Seizure precautions were maintained. No seizure activity while in the hospital Nutritional recommendations implemented in plan of care . Patient was working with physical and occupational therapists. Pain management addressed. DVT and GI prophylaxis provided. Supportive care provided . Bowel regimen instituted. Psychiatrist seen and evaluated patient , diagnosed patient with major depressive disorder ,anxiety disorder and insomnia. Reality orientation and supportive therapy provided. Patient started on Remeron. Patient clinically improved and was stable for discharge home with home health services. FINAL DIAGNOSES: Right lower extremity chronic ulcer Right lower extremity cellulitis COPD exacerbation Emphysema Hypertension Coronary artery disease with history of CABG. Severe malnutrition Major depressive disorder Anxiety Insomnia Seizure disorder Peripheral arterial disease Diabetes mellitus Diabetic ulcer DISCHARGE MEDICATIONS: See Medication Reconciliation list. DISCHARGE INSTRUCTIONS: Patient was discharged home with home health services to follow I have been assigned to dictate discharge summary for this account. I was not involved in the patient's management. Kristine Black NP Jun 04, 2018 13:51
== END 2018-06-02 15:08 | disposition hospice, home (50) | DRG 383 ==
LOC: EMR 05-27 00:51 → 2E 05-27 02:13 → EDBEDREQ 05-27 04:23 → OBSVTOIN 05-27 05:29 → 2E 05-27 10:34 → 4E 05-29 15:44
DX: L03.115 Cellulitis of right lower limb (principal); E43 Unspecified severe protein-calorie malnutrition; E11.621 Type 2 diabetes mellitus with foot ulcer; I11.0 Hypertensive heart disease with heart failure; I50.9 Heart failure, unspecified; L97.319 Non-pressure chronic ulcer of right ankle with unspecified severity; J44.1 Chronic obstructive pulmonary disease with (acute) exacerbation; R07.9 Chest pain, unspecified; I25.10 Atherosclerotic heart disease of native coronary artery without angina pectoris; F17.200 Nicotine dependence, unspecified, uncomplicated; I25.2 Old myocardial infarction; Z95.1 Presence of aortocoronary bypass graft; Z95.5 Presence of coronary angioplasty implant and graft; Z68.1 Body mass index [BMI] 19.9 or less, adult; Z88.8 Allergy status to other drugs, medicaments and biological substances; Z79.02 Long term (current) use of antithrombotics/antiplatelets; K21.9 Gastro-esophageal reflux disease without esophagitis; E03.9 Hypothyroidism, unspecified; F32.9 Major depressive disorder, single episode, unspecified; G89.29 Other chronic pain; F41.9 Anxiety disorder, unspecified; G47.00 Insomnia, unspecified
CPT/HCPCS: 36415; 71045; 80048; 80053; 80061; 82550; 82553; 83036; 83735; 83880; 84484; 85025; 85610; 85730; 87081; 93005; 94640; 94664; 99285; J1815; J7620

== ENCOUNTER 2018-06-08 22:39 | Inpatient (IN) | payer MEDICARE, MEDICAID ==
[~2018-06-08] VITALS: Ht 185.4 cm; Wt 57.3 kg
[~2018-06-08 22:39] MED LIST changes: +CEPHALEXIN500 MG ORAL
[2018-06-08 23:00] VITALS: BP 133/77
[2018-06-09] VITALS (8 sets, daily range): BP systolic 107–145; BP diastolic 66–85
[2018-06-09] MEDS ORDERED: fentaNYL 100 mcg/2 mL IV ONE ×2 (00:15→02:00)
[2018-06-09 00:17] LABS: BASOPHILS % (AUTO) 2.2 % (0.0-2.0); EOSINOPHILS % (AUTO) 4.6 % (0.0-3.0); HEMATOCRIT 48.3 % (42.0-52.0); HEMOGLOBIN 15.3 G/DL (14.2-18.0); MEAN CORPUSCULAR VOLUME 84 FL (80-99); MONOCYTES % (AUTO) 12.7 % (1.0-10.0); NEUTROPHILS % (AUTO) 44.6 % (45.0-75.0); PLATELET COUNT 331 K/UL (150-450); RED BLOOD COUNT 5.78 M/UL (4.70-6.10); RED CELL DISTRIBUTION WIDTH 16.7 % (11.6-14.8); WHITE BLOOD COUNT 7.8 K/UL (4.8-10.8)
[2018-06-09 00:29] LABS: ANION GAP 10 mmol/L (5-15); BLOOD UREA NITROGEN 29 mg/dL (7-18); CALCIUM 8.4 MG/DL (8.5-10.1); CARBON DIOXIDE 28 MMOL/L (21-32); CHLORIDE 106 MMOL/L (98-107); CREATININE 1.6 MG/DL (0.55-1.30); POTASSIUM 4.4 MMOL/L (3.5-5.1); SODIUM 143 MMOL/L (136-145)
[2018-06-09 00:40] LABS: ALANINE AMINOTRANSFERASE 21 U/L (12-78); ALBUMIN 3.7 G/DL (3.4-5.0); ALBUMIN/GLOBULIN RATIO 0.8 (1.0-2.7); ALKALINE PHOSPHATASE 131 U/L (46-116); ASPARTATE AMINO TRANSFERASE 19 U/L (15-37); BILIRUBIN,TOTAL 0.2 MG/DL (0.2-1.0); CREATINE KINASE 105 U/L (26-308)
[2018-06-09] MEDS ORDERED: Albuterol ud Inhalation HHN ONE (02:00)
[2018-06-09] MEDS ORDERED: Ipratropium 0.02% Inh Soln 2.5ml UD HHN ONE (02:00)
--- NOTE | 2018-06-09 02:20 | Emergency Room Report ---
History of Present Illness General Chief Complaint: Chest Pain Source: Patient, EMS Present Illness HPI Patient was discharged 2 days ago. He states the only medication he was discharged on was antibiotics. He did not have his usual cardiac and COPD meds. Now c/o chest pain - substernal and pressure. Worse with exertion with ESPINOSA. Pain rated 9/10. Has had this pain in the past when has had heart problems. Also ESPINOSA and wheezing. H/O COPD. No fevers or productive cough. Chronic ulcer on heel. Was treated for this in hospital and discharged on antibiotics. Frustrated as chronic infection not seeming to get better. Some loose stools. No dysuria. No calf swelling or increased pain. Diabetic. States sugars have been controlled. He was discharged 06/02 with these dx: Right lower extremity chronic ulcer Right lower extremity cellulitis COPD exacerbation Emphysema Hypertension Coronary artery disease with history of CABG. Severe malnutrition Major depressive disorder Anxiety Insomnia Seizure disorder Peripheral arterial disease Diabetes mellitus Diabetic ulcer Allergies: Coded Allergies: EGG (Verified Allergy, Unknown, 09/22/15) MEPERIDINE (Verified Allergy, Unknown, 12/21/10) NITROGLYCERIN (Verified Allergy, Unknown, hives, 02/18/17) Patient History Past Medical History: see triage record Past Surgical History: CABG, other - hip replacement Social History: Reports: smoking Social History Narrative at home Reviewed Nursing Documentation: PMH: Agreed; PSxH: Agreed Nursing Documentation-PMH Hx Cardiac Problems: Yes - NM with stents placed, CHF Hx Hypertension: Yes Hx Pacemaker: No Hx Asthma: No Hx COPD: Yes Hx Diabetes: No Hx Cancer: No Hx Gastrointestinal Problems: Yes Hx Dialysis: No - kidney problems Hx Neurological Problems: No Hx Cerebrovascular Accident: No Hx Transient Ischemic Attacks: No Hx Alzheimer's Disease: No Hx Encephalitis: No Hx Seizures: Yes Hx Epilepsy: No Hx Multiple Sclerosis: No Hx Cerebral Palsy: No Hx Amyotrophic Lat Sclerosis: No Hx [place] Syndrome: No Hx Paralysis: No Hx Peripheral Neuropathy: No Hx Spinal Cord Injury: No Hx Head Trauma: No Hx Traumatic Brain Injury: No Hx Memory Loss: No Hx Concentration Difficulty: No Hx Speech Problem: No Hx Tremors: Yes Hx Vertigo: No Hx Dizziness: No Hx Syncope: Yes Hx Headaches: Yes Hx Aphasia: No Hx Dysphasia: Yes Hx Numbness: No Hx Weakness: Yes Hx Fatigue: No Hx Neurologic Surgery: No Hx Brain Shunt: No Review of Systems All Other Systems: negative except mentioned in HPI Physical Exam Vital Signs Date Time Temp Pulse Resp B/P (MAP) Pulse Ox O2 Delivery O2 Flow Rate FiO2 06/08/18 22:50 98.0 89 20 133/77 100 Room Air 98.1 06/09/18 01:50 36 Sp02 EP Interpretation: reviewed, normal General Appearance: no apparent distress, thin Head: normocephalic Eyes: bilateral eye normal inspection, bilateral eye conjunctivae pale ENT: moist mucus membranes Neck: supple Respiratory: lungs clear, normal breath sounds Cardiovascular #1: regular rate, rhythm Cardiovascular #2: 2+ radial (R) Gastrointestinal: normal inspection, normal bowel sounds, non tender, no mass, non-distended, scaphoid Musculoskeletal: back normal, gait/station normal, normal range of motion Neurologic: alert, oriented x3, grossly normal Psychiatric: mood/affect normal Skin: warm/dry, other - heel decubitus Medical Decision Making Diagnostic Impression: Primary Impression: Chest pain Qualified Codes: R07.9 - Chest pain, unspecified Additional Impressions: COPD exacerbation Renal insufficiency ER Course Patient presents with chest pain. DDX: AMI, ACS, GERD, chest wall pain, drug seeking amongst others. Problem of d/c without usual medications. Evaluation with EKG, CXR and labs. Treatment with analgesia and cardiac monitoring. Currently, no exp wheezes, though c/o SOB. Concern for exacerbation of COPD versus other lung infection and possible dyspnea related to cor. EKG with NSR, no injury LAE. CXR COPD. Labs with negative troponin. CBC normal, CMP renal insufficiency. Patient improved initially, then c/o increased chest pain. Patient also with expiratory wheezes. This is worsened since his been here. Breathing treatments are ordered. Improvement with treatment. Patient troponin is negative however he has significant risk factor for acute coronary syndrome and is admitted to telemetry. Laboratory Tests Test 06/08/18 23:55 White Blood Count 7.8 K/UL (4.8-10.8) Red Blood Count 5.78 M/UL (4.70-6.10) Hemoglobin 15.3 G/DL (14.2-18.0) Hematocrit 48.3 % (42.0-52.0) Mean Corpuscular Volume 84 FL (80-99) Mean Corpuscular Hemoglobin 26.5 PG (27.0-31.0) L Mean Corpuscular Hemoglobin Concent 31.7 G/DL (32.0-36.0) L Red Cell Distribution Width 16.7 % (11.6-14.8) H Platelet Count 331 K/UL (150-450) Mean Platelet Volume 6.5 FL (6.5-10.1) Neutrophils (%) (Auto) 44.6 % (45.0-75.0) L Lymphocytes (%) (Auto) 36.0 % (20.0-45.0) Monocytes (%) (Auto) 12.7 % (1.0-10.0) H Eosinophils (%) (Auto) 4.6 % (0.0-3.0) H Basophils (%) (Auto) 2.2 % (0.0-2.0) H Prothrombin Time 10.7 SEC (9.30-11.50) Prothrombin Time INR 1.0 (0.9-1.1) PTT 29 SEC (23-33) Sodium Level 143 MMOL/L (136-145) Potassium Level 4.4 MMOL/L (3.5-5.1) Chloride Level 106 MMOL/L (98-107) Carbon Dioxide Level 28 MMOL/L (21-32) Anion Gap 10 mmol/L (5-15) Blood Urea Nitrogen 29 mg/dL (7-18) H Creatinine 1.6 MG/DL (0.55-1.30) H Estimate Glomerular Filtration Rate 52.4 mL/min (>60) Glucose Level 100 MG/DL (74-106) Calcium Level 8.4 MG/DL (8.5-10.1) L Total Bilirubin 0.2 MG/DL (0.2-1.0) Aspartate Amino Transferase (AST) 19 U/L (15-37) Alanine Aminotransferase (ALT) 21 U/L (12-78) Alkaline Phosphatase 131 U/L (46-116) H Total Creatine Kinase 105 U/L (26-308) Troponin I 0.000 ng/mL (0.000-0.056) Pro-B-Type Natriuretic Peptide 637 pg/mL (0-125) H Total Protein 8.1 G/DL (6.4-8.2) Albumin 3.7 G/DL (3.4-5.0) Globulin 4.4 g/dL Albumin/Globulin Ratio 0.8 (1.0-2.7) L EKG Diagnostic Results Rate: normal Rhythm: NSR ST Segments: no acute changes Rhythm Strip Diag. Results EP Interpretation: yes Rhythm: NSR, no PVC's, no ectopy Chest X-Ray Diagnostic Results Chest X-Ray Diagnostic Results : Chest X-Ray Ordered: Yes Indication: Chest Pain Interpretation: no consolidation, no effusion, no pneumothorax, other - nodule L base and COPD Impression: Other Electronically Signed by: Electronically signed by Adonis Buitrago MD Last Vital Signs Date Time Temp Pulse Resp B/P (MAP) Pulse Ox O2 Delivery O2 Flow Rate FiO2 06/09/18 05:12 Room Air 06/09/18 04:43 98.1 95 29 145/83 100 98.1 06/09/18 02:13 21 Status: improved Disposition: ADMITTED INPATIENT Condition: Serious Referrals: Jessie Magana MD (PCP) Adonis Buitrago M.D. Jun 09, 2018 02:20
[2018-06-09] MEDS ORDERED: METOPROLOL SUCC50 MG ORAL (05:11)
[2018-06-09] MEDS ORDERED: KEPPRA500 M4 ORAL (05:11)
[2018-06-09] MEDS ORDERED: Morphine Sulfate 2mg/ml Inj IVP PRN (07:30)
[2018-06-09] MEDS ORDERED: Ketorolac 30mg Inj IV PRN (07:30)
[2018-06-09] MEDS ORDERED: Promethazine/Codeine 5ml UD ORAL PRN (07:30)
[2018-06-09] MEDS ORDERED: LORazepam Inj 2mg/ml 1ml IV PRN (07:30)
[2018-06-09] MEDS: Heparin 5000 units/ml inj SUBQ SCH ×2 (09:00→21:00)
[2018-06-09] MEDS: Theophylline ER 100mg ORAL SCH ×2 (09:22→21:13)
[2018-06-09] MEDS: Piperacillin/Tazobactam 3.375 GM in D5W 110 ML IVPB SCH ×2 (09:56→17:10)
--- NOTE | 2018-06-09 10:30 | Diagnostic Imaging Report ---
Indication: Chest pain Comparison: 05/28/2018 A single view chest radiograph was obtained. Findings: Lungs are hyperexpanded. Sternotomy noted. Bones are osteopenic. IMPRESSION: COPD
--- NOTE | 2018-06-09 12:08 | Consultation ---
History of Present Illness General Date patient seen: Jun 09, 2018 Chief Complaint: Chest Pain Present Illness HPI 67-year-old male with CAD, COPD, CHF, chronic wound, chronic pain, presented to ER with CC of syncopal episode. He reports having some increased chest discomfort as well as difficulty breathing. The patient chronic nonhealing wounds to lower extremities and has been followed by ID and wound care. Allergies: Coded Allergies: EGG (Verified Allergy, Unknown, 09/22/15) MEPERIDINE (Verified Allergy, Unknown, 12/21/10) NITROGLYCERIN (Verified Allergy, Unknown, hives, 02/18/17) Medication History Scheduled Amlodipine Besylate* (Amlodipine Besylate*), 10 MG ORAL DAILY, (Reported) Cephalexin* (Keflex*), 500 MG ORAL EVERY 8 HOURS, (Reported) Clopidogrel Bisulfate* (Plavix*), 75 MG ORAL DAILY, (Reported) Hydromorphone Hcl (Dilaudid), 2 MG PO EVERY 4 HOURS Levetiracetam (Keppra), 500 MG ORAL DAILY, (Reported) Metoprolol Succinate* (Metoprolol Succinate*), 50 MG ORAL BID, (Reported) Mirtazapine* (Remeron*), 15 MG ORAL BEDTIME, (Reported) Ranitidine Hcl* (Zantac*), 150 MG ORAL Q12HR Theophylline (Theodur*), 100 MG ORAL EVERY 12 HOURS Scheduled PRN Albuterol Sulfate (Ventolin Hfa), 1 PUFF INH EVERY 6 HOURS PRN Docusate Sodium* (Colace*), 100 MG ORAL DAILY PRN for Constipation, (Reported) Ondansetron Hcl* (Zofran*), 8 MG ORAL Q6H PRN for Nausea & Vomiting, (Reported) Patient History Healthcare decision maker Resuscitation status Full Code Advanced Directive on File Past Medical/Surgical History Past Medical/Surgical History: (1) Emphysema lung (2) CAD (coronary artery disease) (3) HTN (hypertension) (4) Nonhealing ulcer of right lower extremity Review of Systems Constitutional: Reports: malaise, weakness All Other Systems: negative except mentioned in HPI Physical Exam General Appearance: cachetic Lines, tubes and drains: peripheral HEENT: normocephalic, atraumatic Neck: non-tender, normal alignment Respiratory/Chest: chest wall non-tender, lungs clear Breasts: no masses Cardiovascular/Chest: normal peripheral pulses, regular rhythm Abdomen: normal bowel sounds, non tender Genitourinary/Rectal: normal genital exam Extremities: normal range of motion, pitting 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 Last 24 Hour Vital Signs Date Time Temp Pulse Resp B/P (MAP) Pulse Ox O2 Delivery O2 Flow Rate FiO2 06/09/18 11:31 81 18 Room Air 21 06/09/18 09:52 98.1 06/09/18 09:22 98.1 06/09/18 09:00 Room Air 06/09/18 08:00 98.0 81 20 117/67 (84) 99 98.0 06/09/18 08:00 90 06/09/18 05:12 Room Air 06/09/18 04:43 98.1 95 29 145/83 100 Room Air 98.1 06/09/18 04:40 96.4 98 18 139/82 (101) 97 96.4 06/09/18 04:12 98.1 95 29 145/83 100 Room Air 98.1 06/09/18 02:52 98.0 06/09/18 02:13 88 22 134/70 100 Room Air 21 06/09/18 02:00 80 24 100 Room Air 21 06/09/18 01:50 74 24 100 Room Air 21 06/09/18 01:50 36 06/09/18 00:56 98.0 06/09/18 00:55 84 20 132/68 97 Room Air 06/09/18 00:17 98.0 06/08/18 23:00 98.2 86 22 133/77 99 Room Air 98.2 06/08/18 23:00 84 22 Room Air 06/08/18 22:50 98.0 89 20 133/77 100 Room Air 98.1 Intake and Output 06/08/18 06/09/18 19:00 07:00 # Voids 1 Laboratory Tests Test 06/08/18 23:55 White Blood Count 7.8 K/UL (4.8-10.8) Red Blood Count 5.78 M/UL (4.70-6.10) Hemoglobin 15.3 G/DL (14.2-18.0) Hematocrit 48.3 % (42.0-52.0) Mean Corpuscular Volume 84 FL (80-99) Mean Corpuscular Hemoglobin 26.5 PG (27.0-31.0) L Mean Corpuscular Hemoglobin Concent 31.7 G/DL (32.0-36.0) L Red Cell Distribution Width 16.7 % (11.6-14.8) H Platelet Count 331 K/UL (150-450) Mean Platelet Volume 6.5 FL (6.5-10.1) Neutrophils (%) (Auto) 44.6 % (45.0-75.0) L Lymphocytes (%) (Auto) 36.0 % (20.0-45.0) Monocytes (%) (Auto) 12.7 % (1.0-10.0) H Eosinophils (%) (Auto) 4.6 % (0.0-3.0) H Basophils (%) (Auto) 2.2 % (0.0-2.0) H Prothrombin Time 10.7 SEC (9.30-11.50) Prothromb Time International Ratio 1.0 (0.9-1.1) Activated Partial Thromboplast Time 29 SEC (23-33) Sodium Level 143 MMOL/L (136-145) Potassium Level 4.4 MMOL/L (3.5-5.1) Chloride Level 106 MMOL/L (98-107) Carbon Dioxide Level 28 MMOL/L (21-32) Anion Gap 10 mmol/L (5-15) Blood Urea Nitrogen 29 mg/dL (7-18) H Creatinine 1.6 MG/DL (0.55-1.30) H Estimat Glomerular Filtration Rate 52.4 mL/min (>60) Glucose Level 100 MG/DL (74-106) Calcium Level 8.4 MG/DL (8.5-10.1) L Total Bilirubin 0.2 MG/DL (0.2-1.0) Aspartate Amino Transf (AST/SGOT) 19 U/L (15-37) Alanine Aminotransferase (ALT/SGPT) 21 U/L (12-78) Alkaline Phosphatase 131 U/L (46-116) H Total Creatine Kinase 105 U/L (26-308) Troponin I 0.000 ng/mL (0.000-0.056) Pro-B-Type Natriuretic Peptide 637 pg/mL (0-125) H Total Protein 8.1 G/DL (6.4-8.2) Albumin 3.7 G/DL (3.4-5.0) Globulin 4.4 g/dL Albumin/Globulin Ratio 0.8 (1.0-2.7) L Height (Feet): 6 Height (Inches): 1.00 Weight (Pounds): 130 Medications Current Medications Medications (Trade) Dose Ordered Sig/Aminata Route PRN Reason Start Time Stop Time Status Last Admin Dose Admin Albuterol/ Ipratropium (Albuterol/ Ipratropium) 3 ml Q4H PRN HHN dyspnea 06/09/18 07:30 06/14/18 07:29 Dextrose (Dextrose 50%) 25 ml STAT PRN IV Hypoglycemia 06/09/18 07:30 07/09/18 07:29 Dextrose (Dextrose 50%) 50 ml STAT PRN IV Hypoglycemia 06/09/18 08:00 07/09/18 07:59 Heparin Sodium (Porcine) (Heparin 5000 units/ml) 5,000 units EVERY 12 HOURS SUBQ 06/09/18 09:00 07/09/18 08:59 Ketorolac Tromethamine (Toradol 30mg) 30 mg Q8H PRN IV moderate pain 4-6 06/09/18 07:30 06/14/18 07:29 Lorazepam (Ativan 2mg/ml 1ml) 0.5 mg Q4H PRN IV For Anxiety 06/09/18 07:30 06/16/18 07:29 Methylprednisolone Sodium Succinate (Solu-MEDROL) 60 mg EVERY 6 HOURS IV 06/09/18 12:00 07/09/18 11:59 Morphine Sulfate (Morphine Sulfate) 2 mg Q4H PRN IVP severe pain 7-10 06/09/18 07:30 06/16/18 07:29 06/09/18 09:22 Ondansetron HCl (Zofran) 4 mg Q6H PRN IVP Nausea & Vomiting 06/09/18 07:30 07/09/18 07:29 Piperacillin Sod/ Tazobactam Sod 3.375 gm/Dextrose 110 ml @ 27.5 mls/hr Q8H IVPB 06/09/18 09:00 06/16/18 08:59 06/09/18 09:56 Promethazine HCl/ Codeine (Phenergan with Codeine) 5 ml Q6H PRN ORAL cough 06/09/18 07:30 07/09/18 07:29 Temazepam (Restoril) 15 mg HSPRN PRN ORAL Insomnia 06/09/18 07:30 06/16/18 07:29 Theophylline (Wilfrido-Dur) 100 mg EVERY 12 HOURS ORAL 06/09/18 09:00 07/09/18 08:59 06/09/18 09:22 Assessment/Plan Problem List: (1) Acute encephalopathy ICD Codes: G93.40 - Encephalopathy, unspecified SNOMED: 04899738, 358633254 (2) Emphysema lung ICD Codes: J43.9 - Emphysema, unspecified SNOMED: 10764823 (3) Nonhealing ulcer of right lower extremity ICD Codes: L97.919 - Non-pressure chronic ulcer of unspecified part of right lower leg with unspecified severity SNOMED: 12506152 (4) Hx of CABG ICD Codes: Z95.1 - History of coronary artery bypass surgery SNOMED: 030848602 (5) HTN (hypertension) ICD Codes: I10 - Hypertension SNOMED: 21563508 Assessment/Plan telemetry monitoring echo ekg, troponin cardiology evaluation wound care ID to see dvt prophylaxis symptomatic treatment. Jessie Magana MD Jun 09, 2018 12:08
[2018-06-09] MEDS: Solu-MEDROL 125mg Inj IV SCH ×2 (12:13→17:10)
[2018-06-09] MEDS: Morphine Sulfate 2mg/ml Inj IVP PRN ×3 (12:52→21:14)
--- NOTE | 2018-06-09 15:14 | Consultation ---
History of Present Illness General Date patient seen: Jun 09, 2018 Chief Complaint: Chest Pain Present Illness HPI 67-year-old male with hx of mdd, anxiety and CAD, COPD, CHF, chronic wound, chronic pain, presented to ER with CC of syncopal episode . . The pt c/o insomnia and stated that he has not taken his meds. the pt is irritable and has low energy no si/hi Allergies: Coded Allergies: EGG (Verified Allergy, Unknown, 09/22/15) MEPERIDINE (Verified Allergy, Unknown, 12/21/10) NITROGLYCERIN (Verified Allergy, Unknown, hives, 02/18/17) Medication History Scheduled Amlodipine Besylate* (Amlodipine Besylate*), 10 MG ORAL DAILY, (Reported) Cephalexin* (Keflex*), 500 MG ORAL EVERY 8 HOURS, (Reported) Clopidogrel Bisulfate* (Plavix*), 75 MG ORAL DAILY, (Reported) Hydromorphone Hcl (Dilaudid), 2 MG PO EVERY 4 HOURS Levetiracetam (Keppra), 500 MG ORAL DAILY, (Reported) Metoprolol Succinate* (Metoprolol Succinate*), 50 MG ORAL BID, (Reported) Mirtazapine* (Remeron*), 15 MG ORAL BEDTIME, (Reported) Ranitidine Hcl* (Zantac*), 150 MG ORAL Q12HR Theophylline (Theodur*), 100 MG ORAL EVERY 12 HOURS Scheduled PRN Albuterol Sulfate (Ventolin Hfa), 1 PUFF INH EVERY 6 HOURS PRN Docusate Sodium* (Colace*), 100 MG ORAL DAILY PRN for Constipation, (Reported) Ondansetron Hcl* (Zofran*), 8 MG ORAL Q6H PRN for Nausea & Vomiting, (Reported) Patient History Limited by: medical condition History Provided By: Patient, Medical Record, PMD Healthcare decision maker Resuscitation status Full Code Advanced Directive on File Past Medical/Surgical History Past Medical/Surgical History: (1) DM (diabetes mellitus) (2) Diabetic foot ulcer (3) Right hip pain (4) Esophagitis (5) Odynophagia (6) Dehydration (7) Hyperkalemia (8) Shingles (9) SOB (shortness of breath) (10) Edema (11) Gastritis (12) Gastroenteritis (13) CHF (congestive heart failure) (14) Hypothyroidism (15) Renal failure (16) Seizure disorder (17) Syncope (18) Acute bronchitis (19) Cardiac dysrhythmia (20) ATN (acute tubular necrosis) (21) Bronchitis (22) Pneumonia (23) Severe malnutrition (24) HTN (hypertension) (25) Chronic pain (26) Vikki esophagitis (27) Cellulitis, leg (28) Diabetes mellitus type II, uncontrolled (29) Atypical chest pain (30) ACS (acute coronary syndrome) (31) ACS (acute coronary syndrome) (32) ACS (acute coronary syndrome) (33) ACS (acute coronary syndrome) (34) ACS (acute coronary syndrome) (35) ACS (acute coronary syndrome) (36) ACS (acute coronary syndrome) (37) ACS (acute coronary syndrome) (38) COPD exacerbation (39) COPD exacerbation (40) COPD exacerbation (41) COPD exacerbation (42) FTT (failure to thrive) in adult (43) Acute on chronic renal failure (44) History of heart attack (45) Hip dislocation, right (46) Osteomyelitis of right leg (47) Swelling of ankle joint, right (48) Cellulitis of right leg (49) Chronic ulcer of right leg (50) Injury of lower extremity (51) Intractable back pain (52) Chest pain with minimal risk of acute coronary syndrome (53) Closed fracture of tibia and fibula with malunion (54) Pain of right lower extremity (55) Cellulitis of right ankle (56) Ulcer of right lower leg (57) Osteomyelitis of right lower extremity (58) Chest pain (59) Peripheral vascular disease (60) Peripheral arterial disease (61) Decubitus ulcer, ankle, right, unstageable (62) Chest pain (63) COPD exacerbation (64) CAD (coronary artery disease) (65) Emphysema lung (66) HTN (hypertension) (67) Acute encephalopathy (68) Nonhealing ulcer of right lower extremity Review of Systems Psychiatric: Reports: prior hx, anxiety, depressed feelings, emotional problems Physical Exam General Appearance: no apparent distress, alert Neurologic: oriented x 3, responsive, depressed affect Last 24 Hour Vital Signs Date Time Temp Pulse Resp B/P (MAP) Pulse Ox O2 Delivery O2 Flow Rate FiO2 06/09/18 13:22 98.2 06/09/18 12:52 98.2 06/09/18 12:00 98.2 91 20 107/66 (80) 96 98.2 06/09/18 12:00 83 06/09/18 11:31 81 18 Room Air 21 06/09/18 09:52 98.1 06/09/18 09:22 98.1 06/09/18 09:00 Room Air 06/09/18 08:00 98.0 81 20 117/67 (84) 99 98.0 06/09/18 08:00 90 06/09/18 05:12 Room Air 06/09/18 04:43 98.1 95 29 145/83 100 Room Air 98.1 06/09/18 04:40 96.4 98 18 139/82 (101) 97 96.4 06/09/18 04:12 98.1 95 29 145/83 100 Room Air 98.1 06/09/18 02:52 98.0 06/09/18 02:13 88 22 134/70 100 Room Air 21 06/09/18 02:00 80 24 100 Room Air 21 06/09/18 01:50 74 24 100 Room Air 21 06/09/18 01:50 36 06/09/18 00:56 98.0 06/09/18 00:55 84 20 132/68 97 Room Air 06/09/18 00:17 98.0 06/08/18 23:00 98.2 86 22 133/77 99 Room Air 98.2 06/08/18 23:00 84 22 Room Air 06/08/18 22:50 98.0 89 20 133/77 100 Room Air 98.1 Intake and Output 06/08/18 06/09/18 19:00 07:00 # Voids 1 Laboratory Tests Test 06/08/18 23:55 White Blood Count 7.8 K/UL (4.8-10.8) Red Blood Count 5.78 M/UL (4.70-6.10) Hemoglobin 15.3 G/DL (14.2-18.0) Hematocrit 48.3 % (42.0-52.0) Mean Corpuscular Volume 84 FL (80-99) Mean Corpuscular Hemoglobin 26.5 PG (27.0-31.0) L Mean Corpuscular Hemoglobin Concent 31.7 G/DL (32.0-36.0) L Red Cell Distribution Width 16.7 % (11.6-14.8) H Platelet Count 331 K/UL (150-450) Mean Platelet Volume 6.5 FL (6.5-10.1) Neutrophils (%) (Auto) 44.6 % (45.0-75.0) L Lymphocytes (%) (Auto) 36.0 % (20.0-45.0) Monocytes (%) (Auto) 12.7 % (1.0-10.0) H Eosinophils (%) (Auto) 4.6 % (0.0-3.0) H Basophils (%) (Auto) 2.2 % (0.0-2.0) H Prothrombin Time 10.7 SEC (9.30-11.50) Prothromb Time International Ratio 1.0 (0.9-1.1) Activated Partial Thromboplast Time 29 SEC (23-33) Sodium Level 143 MMOL/L (136-145) Potassium Level 4.4 MMOL/L (3.5-5.1) Chloride Level 106 MMOL/L (98-107) Carbon Dioxide Level 28 MMOL/L (21-32) Anion Gap 10 mmol/L (5-15) Blood Urea Nitrogen 29 mg/dL (7-18) H Creatinine 1.6 MG/DL (0.55-1.30) H Estimat Glomerular Filtration Rate 52.4 mL/min (>60) Glucose Level 100 MG/DL (74-106) Calcium Level 8.4 MG/DL (8.5-10.1) L Total Bilirubin 0.2 MG/DL (0.2-1.0) Aspartate Amino Transf (AST/SGOT) 19 U/L (15-37) Alanine Aminotransferase (ALT/SGPT) 21 U/L (12-78) Alkaline Phosphatase 131 U/L (46-116) H Total Creatine Kinase 105 U/L (26-308) Troponin I 0.000 ng/mL (0.000-0.056) Pro-B-Type Natriuretic Peptide 637 pg/mL (0-125) H Total Protein 8.1 G/DL (6.4-8.2) Albumin 3.7 G/DL (3.4-5.0) Globulin 4.4 g/dL Albumin/Globulin Ratio 0.8 (1.0-2.7) L Height (Feet): 6 Height (Inches): 1.00 Weight (Pounds): 130 Medications Current Medications Medications (Trade) Dose Ordered Sig/Aminata Route PRN Reason Start Time Stop Time Status Last Admin Dose Admin Albuterol/ Ipratropium (Albuterol/ Ipratropium) 3 ml Q4H PRN HHN dyspnea 06/09/18 07:30 06/14/18 07:29 Dextrose (Dextrose 50%) 25 ml STAT PRN IV Hypoglycemia 06/09/18 07:30 07/09/18 07:29 Dextrose (Dextrose 50%) 50 ml STAT PRN IV Hypoglycemia 06/09/18 08:00 07/09/18 07:59 Heparin Sodium (Porcine) (Heparin 5000 units/ml) 5,000 units EVERY 12 HOURS SUBQ 06/09/18 09:00 07/09/18 08:59 Ketorolac Tromethamine (Toradol 30mg) 30 mg Q8H PRN IV moderate pain 4-6 06/09/18 07:30 06/14/18 07:29 Lorazepam (Ativan 2mg/ml 1ml) 0.5 mg Q4H PRN IV For Anxiety 06/09/18 07:30 06/16/18 07:29 Methylprednisolone Sodium Succinate (Solu-MEDROL) 60 mg EVERY 6 HOURS IV 06/09/18 12:00 07/09/18 11:59 06/09/18 12:13 Morphine Sulfate (Morphine Sulfate) 2 mg Q3H PRN IVP severe pain 7-10 06/09/18 12:30 06/16/18 12:29 06/09/18 12:52 Ondansetron HCl (Zofran) 4 mg Q6H PRN IVP Nausea & Vomiting 06/09/18 07:30 07/09/18 07:29 Piperacillin Sod/ Tazobactam Sod 3.375 gm/Dextrose 110 ml @ 27.5 mls/hr Q8H IVPB 06/09/18 09:00 06/16/18 08:59 06/09/18 09:56 Promethazine HCl/ Codeine (Phenergan with Codeine) 5 ml Q6H PRN ORAL cough 06/09/18 07:30 07/09/18 07:29 Temazepam (Restoril) 15 mg HSPRN PRN ORAL Insomnia 06/09/18 07:30 06/16/18 07:29 Theophylline (Wilfrido-Dur) 100 mg EVERY 12 HOURS ORAL 06/09/18 09:00 07/09/18 08:59 06/09/18 09:22 Assessment/Plan Assessment/Plan MDD Anxiety d/o increase remeron to 30mg po qhs Rachael Buckley MD Jun 09, 2018 15:14
--- NOTE | 2018-06-09 16:13 | Consultation ---
History of Present Illness General Date patient seen: Jun 09, 2018 Time patient seen: 16:06 Chief Complaint: Chest Pain Present Illness HPI Pt C/O Chest pain and increased SOB since earlier today. Pt has audible epiratory wheezing bilaterally to lungs. Pain is substernal w/ no radiation. Pain is tight in quality. Per pt, he has a medical hx of COPD, CHF, CABG x 3, 2 stent placement, Hep C, and osteomylitis. He has been admitted twice the last few months. Previous work up was negative and he declines stress tests. He also has chronic nonhealing wounds to lower extremities and has been followed by ID and wound care Allergies: Coded Allergies: EGG (Verified Allergy, Unknown, 09/22/15) MEPERIDINE (Verified Allergy, Unknown, 12/21/10) NITROGLYCERIN (Verified Allergy, Unknown, hives, 02/18/17) Medication History Scheduled Amlodipine Besylate* (Amlodipine Besylate*), 10 MG ORAL DAILY, (Reported) Cephalexin* (Keflex*), 500 MG ORAL EVERY 8 HOURS, (Reported) Clopidogrel Bisulfate* (Plavix*), 75 MG ORAL DAILY, (Reported) Hydromorphone Hcl (Dilaudid), 2 MG PO EVERY 4 HOURS Levetiracetam (Keppra), 500 MG ORAL DAILY, (Reported) Metoprolol Succinate* (Metoprolol Succinate*), 50 MG ORAL BID, (Reported) Mirtazapine* (Remeron*), 15 MG ORAL BEDTIME, (Reported) Ranitidine Hcl* (Zantac*), 150 MG ORAL Q12HR Theophylline (Theodur*), 100 MG ORAL EVERY 12 HOURS Scheduled PRN Albuterol Sulfate (Ventolin Hfa), 1 PUFF INH EVERY 6 HOURS PRN Docusate Sodium* (Colace*), 100 MG ORAL DAILY PRN for Constipation, (Reported) Ondansetron Hcl* (Zofran*), 8 MG ORAL Q6H PRN for Nausea & Vomiting, (Reported) Patient History Healthcare decision maker Resuscitation status Full Code Advanced Directive on File Review of Systems Constitutional: Reports: no symptoms Eye: Reports: no symptoms ENT: Reports: no symptoms Respiratory: Reports: shortness of breath, wheezing Cardiovascular: Reports: chest pain, syncope Gastrointestinal: Reports: no symptoms Genitourinary: Reports: no symptoms Musculoskeletal: Reports: no symptoms Skin: Reports: no symptoms Psychiatric: Reports: no symptoms Neurological: Reports: no symptoms Endocrine: Reports: no symptoms Hematologic/Lymphatic: Reports: no symptoms Physical Exam General Appearance: no apparent distress Lines, tubes and drains: peripheral HEENT: normocephalic Neck: non-tender Respiratory/Chest: chest wall non-tender, accessory muscle use, expiratory wheezing Cardiovascular/Chest: normal peripheral pulses Abdomen: normal bowel sounds Extremities: normal range of motion Skin Exam: normal pigmentation 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 Last 24 Hour Vital Signs Date Time Temp Pulse Resp B/P (MAP) Pulse Ox O2 Delivery O2 Flow Rate FiO2 06/09/18 13:22 98.2 06/09/18 12:52 98.2 06/09/18 12:00 98.2 91 20 107/66 (80) 96 98.2 06/09/18 12:00 83 06/09/18 11:31 81 18 Room Air 21 06/09/18 09:52 98.1 06/09/18 09:22 98.1 06/09/18 09:00 Room Air 06/09/18 08:00 98.0 81 20 117/67 (84) 99 98.0 06/09/18 08:00 90 06/09/18 05:12 Room Air 06/09/18 04:43 98.1 95 29 145/83 100 Room Air 98.1 06/09/18 04:40 96.4 98 18 139/82 (101) 97 96.4 06/09/18 04:12 98.1 95 29 145/83 100 Room Air 98.1 06/09/18 02:52 98.0 06/09/18 02:13 88 22 134/70 100 Room Air 21 06/09/18 02:00 80 24 100 Room Air 21 06/09/18 01:50 74 24 100 Room Air 21 06/09/18 01:50 36 06/09/18 00:56 98.0 06/09/18 00:55 84 20 132/68 97 Room Air 06/09/18 00:17 98.0 06/08/18 23:00 98.2 86 22 133/77 99 Room Air 98.2 06/08/18 23:00 84 22 Room Air 06/08/18 22:50 98.0 89 20 133/77 100 Room Air 98.1 Intake and Output 06/08/18 06/09/18 19:00 07:00 # Voids 1 Laboratory Tests Test 06/08/18 23:55 White Blood Count 7.8 K/UL (4.8-10.8) Red Blood Count 5.78 M/UL (4.70-6.10) Hemoglobin 15.3 G/DL (14.2-18.0) Hematocrit 48.3 % (42.0-52.0) Mean Corpuscular Volume 84 FL (80-99) Mean Corpuscular Hemoglobin 26.5 PG (27.0-31.0) L Mean Corpuscular Hemoglobin Concent 31.7 G/DL (32.0-36.0) L Red Cell Distribution Width 16.7 % (11.6-14.8) H Platelet Count 331 K/UL (150-450) Mean Platelet Volume 6.5 FL (6.5-10.1) Neutrophils (%) (Auto) 44.6 % (45.0-75.0) L Lymphocytes (%) (Auto) 36.0 % (20.0-45.0) Monocytes (%) (Auto) 12.7 % (1.0-10.0) H Eosinophils (%) (Auto) 4.6 % (0.0-3.0) H Basophils (%) (Auto) 2.2 % (0.0-2.0) H Prothrombin Time 10.7 SEC (9.30-11.50) Prothromb Time International Ratio 1.0 (0.9-1.1) Activated Partial Thromboplast Time 29 SEC (23-33) Sodium Level 143 MMOL/L (136-145) Potassium Level 4.4 MMOL/L (3.5-5.1) Chloride Level 106 MMOL/L (98-107) Carbon Dioxide Level 28 MMOL/L (21-32) Anion Gap 10 mmol/L (5-15) Blood Urea Nitrogen 29 mg/dL (7-18) H Creatinine 1.6 MG/DL (0.55-1.30) H Estimat Glomerular Filtration Rate 52.4 mL/min (>60) Glucose Level 100 MG/DL (74-106) Calcium Level 8.4 MG/DL (8.5-10.1) L Total Bilirubin 0.2 MG/DL (0.2-1.0) Aspartate Amino Transf (AST/SGOT) 19 U/L (15-37) Alanine Aminotransferase (ALT/SGPT) 21 U/L (12-78) Alkaline Phosphatase 131 U/L (46-116) H Total Creatine Kinase 105 U/L (26-308) Troponin I 0.000 ng/mL (0.000-0.056) Pro-B-Type Natriuretic Peptide 637 pg/mL (0-125) H Total Protein 8.1 G/DL (6.4-8.2) Albumin 3.7 G/DL (3.4-5.0) Globulin 4.4 g/dL Albumin/Globulin Ratio 0.8 (1.0-2.7) L Height (Feet): 6 Height (Inches): 1.00 Weight (Pounds): 130 Medications Current Medications Medications (Trade) Dose Ordered Sig/Aminata Route PRN Reason Start Time Stop Time Status Last Admin Dose Admin Albuterol/ Ipratropium (Albuterol/ Ipratropium) 3 ml Q4H PRN HHN dyspnea 06/09/18 07:30 06/14/18 07:29 Dextrose (Dextrose 50%) 25 ml STAT PRN IV Hypoglycemia 06/09/18 07:30 07/09/18 07:29 Dextrose (Dextrose 50%) 50 ml STAT PRN IV Hypoglycemia 06/09/18 08:00 07/09/18 07:59 Heparin Sodium (Porcine) (Heparin 5000 units/ml) 5,000 units EVERY 12 HOURS SUBQ 06/09/18 09:00 07/09/18 08:59 Ketorolac Tromethamine (Toradol 30mg) 30 mg Q8H PRN IV moderate pain 4-6 06/09/18 07:30 06/14/18 07:29 Lorazepam (Ativan 2mg/ml 1ml) 0.5 mg Q4H PRN IV For Anxiety 06/09/18 07:30 06/16/18 07:29 Methylprednisolone Sodium Succinate (Solu-MEDROL) 60 mg EVERY 6 HOURS IV 06/09/18 12:00 07/09/18 11:59 06/09/18 12:13 Mirtazapine (Remeron) 30 mg BEDTIME ORAL 06/09/18 21:00 07/09/18 20:59 Morphine Sulfate (Morphine Sulfate) 2 mg Q3H PRN IVP severe pain 7-10 06/09/18 12:30 06/16/18 12:29 06/09/18 12:52 Ondansetron HCl (Zofran) 4 mg Q6H PRN IVP Nausea & Vomiting 06/09/18 07:30 07/09/18 07:29 Piperacillin Sod/ Tazobactam Sod 3.375 gm/Dextrose 110 ml @ 27.5 mls/hr Q8H IVPB 06/09/18 09:00 06/16/18 08:59 06/09/18 09:56 Promethazine HCl/ Codeine (Phenergan with Codeine) 5 ml Q6H PRN ORAL cough 06/09/18 07:30 07/09/18 07:29 Temazepam (Restoril) 15 mg HSPRN PRN ORAL Insomnia 06/09/18 07:30 06/16/18 07:29 Theophylline (Wilfrido-Dur) 100 mg EVERY 12 HOURS ORAL 06/09/18 09:00 07/09/18 08:59 06/09/18 09:22 Assessment/Plan Status: doing well Assessment/Plan 1) COPD 2) Coronary artery disease 3) Chest pain 4) LE chronic non healing wounds 5) KEITH 6) Hepatitis C 7) CHF Plan Troponin negative, CXR clear with no fluid overload Patient does not want stress test Treat for COPD - duonebs, steroids Continue plavix continue metoprolol Continue amlodipine Nitro prn CP If chest pain continues despite patient not wanting evaluation, start ranexa for chronic stable angina Adonis Winn M.D. Jun 09, 2018 16:13
--- NOTE | 2018-06-09 16:39 | Cardiology Report ---
APPROVED REPORT EKG Measurement Heart [id number] VT 132P89 [id number] Normal sinus rhythm Biatrial enlargement Anterior infarct, age undetermined Abnormal ECG
[2018-06-09] MEDS: Albuterol/Ipratropium 3ml neb HHN PRN (17:37)
--- NOTE | 2018-06-09 18:41 | History & Physical ---
History and Physical History & Physicial Dictated for Int Med-Dr Wright no. [id number]. Shantanu Reyna MD Jun 09, 2018 18:41
--- NOTE | 2018-06-09 23:45 | History and Physical Report ---
DATE OF ADMISSION: 06/09/2018 CHIEF COMPLAINT: The patient is a 67-year-old male, who presents with chief complaint of bilateral leg swelling. HISTORY OF PRESENT ILLNESS: The patient was admitted to [facility] from 05/27/2018 through 06/04/2018. The patient was diagnosed with cellulitis of bilateral lower extremities. The patient was discharged home on Keflex. 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 The patient states he did not receive any medications at home. The patient states the pharmacy normally delivers his medications. The patient states he got 6 tablets of Keflex. The patient states he did not get his other medications. The patient presented to [place] emergency room. The patient was admitted for cellulitis of bilateral lower extremities. PAST MEDICAL HISTORY: Significant for 1. Hypertension. 2. History of coronary artery disease. 3. History of myocardial infarction x2. 4. Chronic obstructive pulmonary disease. PAST SURGICAL HISTORY: Significant for 1. Coronary angioplasty with stent placement x2 in 06/2017. 2. Coronary artery bypass graft in 2010. CURRENT MEDICATIONS: 1. Amlodipine 10 mg one tablet p.o. daily. 2. Keflex 500 mg one tablet p.o. q.8 h. 3. Plavix 75 mg p.o. daily. 4. Dilaudid 2 mg p.o. q.4 h. p.r.n. 5. Keppra 500 mg p.o. daily. 6. Metoprolol 50 mg p.o. twice daily. 7. Remeron 15 mg p.o. at bedtime. 8. Zofran 8 mg p.o. q.6 h. p.r.n. 9. Zantac 150 mg p.o. twice daily. 10. Wilfrido-Dur 100 mg p.o. twice daily. ALLERGIES: 1. Demerol. 2. Nitroglycerin. 3. Eggs. SOCIAL HISTORY: The patient is , however, lives with his ex-. The patient admits to tobacco use of one pack per day. The patient denies alcohol use. REVIEW OF SYSTEMS: CONSTITUTIONAL: The patient denies weight loss or weight gain. The patient denies fevers or chills. HEENT: The patient denies ear or throat pain. The patient denies headache. CARDIOVASCULAR: The patient denies palpitations or chest pain. CHEST: The patient denies wheeze or shortness of breath. ABDOMEN: The patient denies nausea, vomiting, diarrhea, or constipation. GENITOURINARY: The patient denies dysuria or increased frequency of urination. NEUROMUSCULAR: The patient denies seizures or generalized weakness. PHYSICAL EXAMINATION: GENERAL: The patient is thin-appearing male, in no apparent distress. VITAL SIGNS: Temperature 98.2 degrees, respirations 18, pulse 81, and blood pressure 114/68. HEENT: Eyes, pupils equal and responsive to light and accommodation. Extraocular movements are intact. NECK: Supple without lymphadenopathy. CHEST: Lungs are clear to auscultation bilaterally without wheezes or rales. CARDIOVASCULAR: Regular rate. S1 and S2 are normal without murmurs, rubs, or gallops. ABDOMEN: Soft, nontender, and nondistended. Positive bowel sounds. No evidence of hepatosplenomegaly. Currently, no rebound or guarding noted. EXTREMITIES: Negative for clubbing, cyanosis, or edema. RECTAL: Refused. GENITAL: Refused. NEUROLOGIC: Cranial nerves II through XII are grossly intact without focal deficits. Motor strength is 5/5 bilaterally. Deep tendon reflexes are 2+ plantar. LABORATORY AND DIAGNOSTIC DATA: WBC 10.8, hemoglobin 16.3, hematocrit 48.3, and platelets 331,000. Sodium 143, potassium 4.4, chloride 106, CO2 28, BUN 29, creatinine 1.6 and glucose 100. ASSESSMENT: This is a 67-year-old male 1. Cellulitis right ankle. 2. Hypertension. 3. Coronary artery disease. 4. Chronic obstructive pulmonary disease. 5. Right lower extremity ulcer. 6. Edema of bilateral ankles. TREATMENT: 1. Cellulitis of right ankle. The patient has been started empirically on intravenous Zosyn. An Infectious Disease consultation has been obtained with Dr. Reich. We will for recommendation of Infectious Disease. 2. Hypertension. The patient will continue metoprolol as above. 3. History of coronary artery disease. A Cardiology consultation is pending with Dr. Winn. 4. Chronic obstructive pulmonary disease. A Pulmonary consultation has been obtained with Dr. Magana. 5. Right lower extremity ulcer. 6. Edema. Shantanu Reyna M.D. DR: FRANCISCO J JOB#: [id number] CC:
[2018-06-10 00:41] VITALS: BP 143/84
[2018-06-10] MEDS: Piperacillin/Tazobactam 3.375 GM in D5W 110 ML IVPB SCH ×2 (00:45→08:32)
[2018-06-10] MEDS: Morphine Sulfate 2mg/ml Inj IVP PRN ×4 (00:45→12:01)
[2018-06-10] MEDS: Solu-MEDROL 125mg Inj IV SCH ×4 (00:45→18:13)
[2018-06-10 04:00] VITALS: BP 138/72
[2018-06-10 08:00] VITALS: BP 125/73
[2018-06-10] MEDS: Heparin 5000 units/ml inj SUBQ SCH ×2 (08:08→21:00)
[2018-06-10 08:16] LABS: BASOPHILS % (AUTO) 0.4 % (0.0-2.0); EOSINOPHILS % (AUTO) 0.1 % (0.0-3.0); HEMATOCRIT 42.2 % (42.0-52.0); HEMOGLOBIN 13.5 G/DL (14.2-18.0); LYMPHOCYTES % (AUTO) 12.8 % (20.0-45.0); MEAN CORPUSCULAR VOLUME 83 FL (80-99); MONOCYTES % (AUTO) 2.4 % (1.0-10.0); NEUTROPHILS % (AUTO) 84.3 % (45.0-75.0); PLATELET COUNT 259 K/UL (150-450); RED BLOOD COUNT 5.06 M/UL (4.70-6.10); RED CELL DISTRIBUTION WIDTH 16.5 % (11.6-14.8); WHITE BLOOD COUNT 8.9 K/UL (4.8-10.8)
[2018-06-10] MEDS: Albuterol/Ipratropium 3ml neb HHN PRN ×2 (08:25→19:41)
[2018-06-10] MEDS: Theophylline ER 100mg ORAL SCH ×2 (08:31→21:08)
[2018-06-10] MEDS: Ranolazine 500mg tab ORAL SCH ×2 (09:12→21:08)
[2018-06-10 09:13] LABS: ANION GAP 12 mmol/L (5-15); BLOOD UREA NITROGEN 28 mg/dL (7-18); CALCIUM 8.1 MG/DL (8.5-10.1); CARBON DIOXIDE 20 MMOL/L (21-32); CHLORIDE 107 MMOL/L (98-107); CREATININE 1.6 MG/DL (0.55-1.30); POTASSIUM 4.8 MMOL/L (3.5-5.1); SODIUM 138 MMOL/L (136-145)
--- NOTE | 2018-06-10 11:08 | Consultation ---
History of Present Illness General Date patient seen: Jun 10, 2018 Chief Complaint: Chest Pain Present Illness HPI 67-year-old male with hx of COPD, CAD/[place] s/p CABG/ stents x2, chronic pain, s/ p PPM, chronic leg ulcers, HTN, severe malnutrition, MDD, tobacco abuse, seizure disorder, chronic R>L edema, recurrent leg cellulitis,emphysema, DM2, bedbound presents to ED on 06/08 with increasing Chest pain and SOB, audible expiratory wheezing. He had syncopal episode. Patient refers that upon last discharge he was only discharged on antibiotics and not his cards meds. Denies fever/chills, cough Of note patient admited here from 05/28-06/02 w/ LE pain, SOB and CP; found to be volume overload and R leg cellulitis. Also here from 05/12-05/18 for Chest pain and b/l leg cellulitis and swelling. Also, patient admitted here on late February 2018 with SOB, cough and chest pain; found to have COPD exacerbation. At that time, R ankle ulcer had no signs of infection. Treated with a total 5 days of abx (Zosyn>levaquin) Afebrile no leukocytosis off abx Allergies: Coded Allergies: EGG (Verified Allergy, Unknown, 09/22/15) MEPERIDINE (Verified Allergy, Unknown, 12/21/10) NITROGLYCERIN (Verified Allergy, Unknown, hives, 02/18/17) Medication History Scheduled Amlodipine Besylate* (Amlodipine Besylate*), 10 MG ORAL DAILY, (Reported) Cephalexin* (Keflex*), 500 MG ORAL EVERY 8 HOURS, (Reported) Clopidogrel Bisulfate* (Plavix*), 75 MG ORAL DAILY, (Reported) Hydromorphone Hcl (Dilaudid), 2 MG PO EVERY 4 HOURS Levetiracetam (Keppra), 500 MG ORAL DAILY, (Reported) Metoprolol Succinate* (Metoprolol Succinate*), 50 MG ORAL BID, (Reported) Mirtazapine* (Remeron*), 15 MG ORAL BEDTIME, (Reported) Ranitidine Hcl* (Zantac*), 150 MG ORAL Q12HR Theophylline (Theodur*), 100 MG ORAL EVERY 12 HOURS Scheduled PRN Albuterol Sulfate (Ventolin Hfa), 1 PUFF INH EVERY 6 HOURS PRN Docusate Sodium* (Colace*), 100 MG ORAL DAILY PRN for Constipation, (Reported) Ondansetron Hcl* (Zofran*), 8 MG ORAL Q6H PRN for Nausea & Vomiting, (Reported) Patient History Healthcare decision maker Resuscitation status Full Code Advanced Directive on File Patient History Narrative Pmhx: as above Shx: The patient is , however, lives with his ex-. The patient admits to tobacco use of one pack per day. The patient denies alcohol use. Fhx: non contributory Review of Systems All Other Systems: negative except mentioned in HPI Physical Exam Physical Exam Narrative General Appearance: no apparent distress Lines, tubes and drains: peripheral HEENT: normocephalic Neck: non-tender Respiratory/Chest: chest wall non-tender, accessory muscle use, expiratory wheezing Cardiovascular/Chest: normal peripheral pulses Abdomen: normal bowel sounds Extremities: normal range of motion Skin Exam: normal pigmentation. 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 Last 24 Hour Vital Signs Date Time Temp Pulse Resp B/P (MAP) Pulse Ox O2 Delivery O2 Flow Rate FiO2 06/10/18 09:02 97.2 06/10/18 09:00 Room Air 06/10/18 08:36 98 18 98 Room Air 21 06/10/18 08:32 97.2 06/10/18 08:26 97 16 95 Room Air 21 06/10/18 08:00 98.0 86 18 125/73 (90) 97 98.0 06/10/18 07:37 89 18 Room Air 21 06/10/18 04:00 83 06/10/18 04:00 97.2 93 20 138/72 (94) 96 97.2 06/10/18 00:41 97.7 81 20 143/84 (103) 95 97.7 06/10/18 00:00 86 06/09/18 21:00 Room Air 06/09/18 20:00 100 06/09/18 19:56 96.8 87 20 131/85 (100) 97 96.8 06/09/18 19:40 77 18 Room Air 21 06/09/18 17:43 95 20 100 Room Air 21 06/09/18 17:34 90 18 95 Room Air 21 06/09/18 16:19 98.6 06/09/18 16:00 89 06/09/18 16:00 98.6 81 18 114/68 (83) 96 98.6 06/09/18 12:52 98.2 06/09/18 12:00 98.2 91 20 107/66 (80) 96 98.2 06/09/18 12:00 83 06/09/18 11:31 81 18 Room Air 21 Intake and Output 06/09/18 06/10/18 19:00 07:00 Intake Total 720 ml Output Total 300 ml Balance 420 ml Intake Oral 720 ml Output Urine Total 300 ml # Voids 1 3 # Bowel Movements 1 Laboratory Tests Test 06/10/18 07:10 White Blood Count 8.9 K/UL (4.8-10.8) Red Blood Count 5.06 M/UL (4.70-6.10) Hemoglobin 13.5 G/DL (14.2-18.0) L Hematocrit 42.2 % (42.0-52.0) Mean Corpuscular Volume 83 FL (80-99) Mean Corpuscular Hemoglobin 26.7 PG (27.0-31.0) L Mean Corpuscular Hemoglobin Concent 32.0 G/DL (32.0-36.0) Red Cell Distribution Width 16.5 % (11.6-14.8) H Platelet Count 259 K/UL (150-450) Mean Platelet Volume 6.9 FL (6.5-10.1) Neutrophils (%) (Auto) 84.3 % (45.0-75.0) H Lymphocytes (%) (Auto) 12.8 % (20.0-45.0) L Monocytes (%) (Auto) 2.4 % (1.0-10.0) Eosinophils (%) (Auto) 0.1 % (0.0-3.0) Basophils (%) (Auto) 0.4 % (0.0-2.0) Sodium Level 138 MMOL/L (136-145) Potassium Level 4.8 MMOL/L (3.5-5.1) Chloride Level 107 MMOL/L (98-107) Carbon Dioxide Level 20 MMOL/L (21-32) L Anion Gap 12 mmol/L (5-15) Blood Urea Nitrogen 28 mg/dL (7-18) H Creatinine 1.6 MG/DL (0.55-1.30) H Estimat Glomerular Filtration Rate 52.4 mL/min (>60) Glucose Level 148 MG/DL (74-106) H Calcium Level 8.1 MG/DL (8.5-10.1) L Height (Feet): 6 Height (Inches): 1.00 Weight (Pounds): 126 Medications Current Medications Medications (Trade) Dose Ordered Sig/Aminata Route PRN Reason Start Time Stop Time Status Last Admin Dose Admin Albuterol/ Ipratropium (Albuterol/ Ipratropium) 3 ml Q4H PRN HHN dyspnea 06/09/18 07:30 06/14/18 07:29 06/10/18 08:25 Dextrose (Dextrose 50%) 25 ml STAT PRN IV Hypoglycemia 06/09/18 07:30 07/09/18 07:29 Dextrose (Dextrose 50%) 50 ml STAT PRN IV Hypoglycemia 06/09/18 08:00 07/09/18 07:59 Heparin Sodium (Porcine) (Heparin 5000 units/ml) 5,000 units EVERY 12 HOURS SUBQ 06/09/18 09:00 07/09/18 08:59 Ketorolac Tromethamine (Toradol 30mg) 30 mg Q8H PRN IV moderate pain 4-6 06/09/18 07:30 06/14/18 07:29 Lorazepam (Ativan 2mg/ml 1ml) 0.5 mg Q4H PRN IV For Anxiety 06/09/18 07:30 06/16/18 07:29 Methylprednisolone Sodium Succinate (Solu-MEDROL) 60 mg EVERY 6 HOURS IV 06/09/18 12:00 07/09/18 11:59 06/10/18 05:35 Mirtazapine (Remeron) 30 mg BEDTIME ORAL 06/09/18 21:00 07/09/18 20:59 06/09/18 21:14 Morphine Sulfate (Morphine Sulfate) 2 mg Q3H PRN IVP severe pain 7-10 06/09/18 12:30 06/16/18 12:29 06/10/18 08:32 Ondansetron HCl (Zofran) 4 mg Q6H PRN IVP Nausea & Vomiting 06/09/18 07:30 07/09/18 07:29 Pantoprazole (Protonix) 40 mg DAILY ORAL 06/10/18 09:00 07/10/18 08:59 06/10/18 09:12 Piperacillin Sod/ Tazobactam Sod 3.375 gm/Dextrose 110 ml @ 27.5 mls/hr Q8H IVPB 06/09/18 09:00 06/16/18 08:59 06/10/18 08:32 Promethazine HCl/ Codeine (Phenergan with Codeine) 5 ml Q6H PRN ORAL cough 06/09/18 07:30 07/09/18 07:29 Ranolazine (Ranexa ER 500mg) 500 mg Q12HR ORAL 06/10/18 09:00 07/10/18 08:59 06/10/18 09:12 Temazepam (Restoril) 15 mg HSPRN PRN ORAL Insomnia 06/09/18 07:30 06/16/18 07:29 Theophylline (Wilfrido-Dur) 100 mg EVERY 12 HOURS ORAL 06/09/18 09:00 07/09/18 08:59 06/10/18 08:31 Assessment/Plan Assessment/Plan Abx: Zosyn 06/09- Assessment: COPD exacerbation -CXR: Lungs are hyperexpanded Afebrile, no leukocytosis Recurrent Leg cellulitis, s/p Rx- at present no signs of cellulitis -R ankle cellulitis early 05/2018, s/p Rx -B/l leg cellulitis 03/2018, s/p Rx Chronic R>L edema R Ankle chronic ulcer- healing, no signs of infection -R ankle xray 05/31/2018: Severe post fracture deformity of the ankle as described above. No significant change. -R foot xray 03/2018: No acute injury identified. Abnormal fifth MPJ joint which may be on the basis of previous surgery/trauma or old erosive process. Osteoporosis -a. duplex: A mild (10-30%) stenosis is seen in the mid superficial femoral artery. There is no evidence of occlusion within this segment. HTN severe malnutrition MDD tobacco abuse seizure disorder emphysema DM2 CAD s/p CABG COPD -recent exacerbation requiring admission 02/2018 bedbound Plan: -D/c Zosyn #2 and monitor off abx -06/03 SP Keflex #1 -06/02 SP Ancef #6 -05/16 SP Ancef # 5 -05/12 SP Cefepime and Zosyn x1 -/ SP PO Levaquin #3 -03/23/18 SP Zosyn #2 -f/u cx -Monitor CBC/CMP, temperatures -wound care per hosp protocol Thank you for this consultation. Will continue to follow along with you. Discussed with Jessica Oneill M.D. Jun 10, 2018 11:08
--- NOTE | 2018-06-10 11:11 | Cardiology Progress Note ---
Assessment/Plan Status: stable Assessment/Plan 1) COPD 2) Coronary artery disease 3) Chest pain 4) LE chronic non healing wounds 5) KEITH 6) Hepatitis C 7) CHF Plan Troponin negative, CXR clear with no fluid overload Patient does not want stress test Treat for COPD - duonebs, steroids Continue plavix continue metoprolol Continue amlodipine Nitro prn CP Start ranexa 500 BID Omeprazole daily Dispo planning Subjective Cardiovascular: Reports: no symptoms Respiratory: Reports: no symptoms Gastrointestinal/Abdominal: Reports: no symptoms Genitourinary: Reports: no symptoms Subjective No acute events, no complaints, no chest pain, vitals stable. Objective Last 24 Hour Vital Signs Date Time Temp Pulse Resp B/P (MAP) Pulse Ox O2 Delivery O2 Flow Rate FiO2 06/10/18 09:02 97.2 06/10/18 09:00 Room Air 06/10/18 08:36 98 18 98 Room Air 21 06/10/18 08:32 97.2 06/10/18 08:26 97 16 95 Room Air 21 06/10/18 08:00 87 06/10/18 08:00 98.0 86 18 125/73 (90) 97 98.0 06/10/18 07:37 89 18 Room Air 21 06/10/18 04:00 83 06/10/18 04:00 97.2 93 20 138/72 (94) 96 97.2 06/10/18 00:41 97.7 81 20 143/84 (103) 95 97.7 06/10/18 00:00 86 06/09/18 21:00 Room Air 06/09/18 20:00 100 06/09/18 19:56 96.8 87 20 131/85 (100) 97 96.8 06/09/18 19:40 77 18 Room Air 21 06/09/18 17:43 95 20 100 Room Air 21 06/09/18 17:34 90 18 95 Room Air 21 06/09/18 16:19 98.6 06/09/18 16:00 89 06/09/18 16:00 98.6 81 18 114/68 (83) 96 98.6 06/09/18 12:52 98.2 06/09/18 12:00 98.2 91 20 107/66 (80) 96 98.2 06/09/18 12:00 83 06/09/18 11:31 81 18 Room Air 21 General Appearance: no apparent distress EENT: PERRL/EOMI Neck: non-tender Rhythm: NSR Cardiovascular: normal peripheral pulses Respiratory/Chest: chest wall non-tender Abdomen: normal bowel sounds Extremities: normal range of motion 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 Intake and Output 06/09/18 06/10/18 19:00 07:00 Intake Total 720 ml Output Total 300 ml Balance 420 ml Intake Oral 720 ml Output Urine Total 300 ml # Voids 1 3 # Bowel Movements 1 Laboratory Tests Test 06/10/18 07:10 White Blood Count 8.9 K/UL (4.8-10.8) Red Blood Count 5.06 M/UL (4.70-6.10) Hemoglobin 13.5 G/DL (14.2-18.0) L Hematocrit 42.2 % (42.0-52.0) Mean Corpuscular Volume 83 FL (80-99) Mean Corpuscular Hemoglobin 26.7 PG (27.0-31.0) L Mean Corpuscular Hemoglobin Concent 32.0 G/DL (32.0-36.0) Red Cell Distribution Width 16.5 % (11.6-14.8) H Platelet Count 259 K/UL (150-450) Mean Platelet Volume 6.9 FL (6.5-10.1) Neutrophils (%) (Auto) 84.3 % (45.0-75.0) H Lymphocytes (%) (Auto) 12.8 % (20.0-45.0) L Monocytes (%) (Auto) 2.4 % (1.0-10.0) Eosinophils (%) (Auto) 0.1 % (0.0-3.0) Basophils (%) (Auto) 0.4 % (0.0-2.0) Sodium Level 138 MMOL/L (136-145) Potassium Level 4.8 MMOL/L (3.5-5.1) Chloride Level 107 MMOL/L (98-107) Carbon Dioxide Level 20 MMOL/L (21-32) L Anion Gap 12 mmol/L (5-15) Blood Urea Nitrogen 28 mg/dL (7-18) H Creatinine 1.6 MG/DL (0.55-1.30) H Estimat Glomerular Filtration Rate 52.4 mL/min (>60) Glucose Level 148 MG/DL (74-106) H Calcium Level 8.1 MG/DL (8.5-10.1) L Adonis Winn M.D. Jun 10, 2018 11:11
[2018-06-10 12:00] VITALS: BP_SYST 137; BP_SYST 92; BP_DIAS 63; BP_DIAS 73
--- NOTE | 2018-06-10 14:02 | General Progress Note ---
Assessment/Plan Status: stable Assessment/Plan MDD Anxiety d/o remeron to 30mg po qhs the pt st/ro Subjective Date patient seen: Jun 10, 2018 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: Reports: anxiety, depressed, emotional problems Allergies: Coded Allergies: EGG (Verified Allergy, Unknown, 09/22/15) MEPERIDINE (Verified Allergy, Unknown, 12/21/10) NITROGLYCERIN (Verified Allergy, Unknown, hives, 02/18/17) Objective Last 24 Hour Vital Signs Date Time Temp Pulse Resp B/P (MAP) Pulse Ox O2 Delivery O2 Flow Rate FiO2 06/10/18 12:31 97.2 06/10/18 12:01 97.2 06/10/18 12:00 105 06/10/18 12:00 98.0 95 19 137/73 (94) 97 98.0 06/10/18 09:00 Room Air 06/10/18 08:36 98 18 98 Room Air 21 06/10/18 08:32 97.2 06/10/18 08:26 97 16 95 Room Air 21 06/10/18 08:00 87 06/10/18 08:00 98.0 86 18 125/73 (90) 97 98.0 06/10/18 07:37 89 18 Room Air 21 06/10/18 04:00 83 06/10/18 04:00 97.2 93 20 138/72 (94) 96 97.2 06/10/18 00:41 97.7 81 20 143/84 (103) 95 97.7 06/10/18 00:00 86 06/09/18 21:00 Room Air 06/09/18 20:00 100 06/09/18 19:56 96.8 87 20 131/85 (100) 97 96.8 06/09/18 19:40 77 18 Room Air 21 06/09/18 17:43 95 20 100 Room Air 21 06/09/18 17:34 90 18 95 Room Air 21 06/09/18 16:19 98.6 06/09/18 16:00 89 06/09/18 16:00 98.6 81 18 114/68 (83) 96 98.6 Intake and Output 06/09/18 06/10/18 19:00 07:00 Intake Total 720 ml Output Total 300 ml Balance 420 ml Intake Oral 720 ml Output Urine Total 300 ml # Voids 1 3 # Bowel Movements 1 Laboratory Tests 06/10/18 07:10: White Blood Count 8.9, Red Blood Count 5.06, Hemoglobin 13.5L, Hematocrit 42.2, Mean Corpuscular Volume 83, Mean Corpuscular Hemoglobin 26.7L, Mean Corpuscular Hemoglobin Concent 32.0, Red Cell Distribution Width 16.5H, Platelet Count 259, Mean Platelet Volume 6.9, Neutrophils (%) (Auto) 84.3H, Lymphocytes (%) (Auto) 12.8L, Monocytes (%) (Auto) 2.4, Eosinophils (%) (Auto) 0.1, Basophils (%) (Auto ) 0.4, Sodium Level 138, Potassium Level 4.8, Chloride Level 107, Carbon Dioxide Level 20L, Anion Gap 12, Blood Urea Nitrogen 28H, Creatinine 1.6H, Estimat Glomerular Filtration Rate 52.4, Glucose Level 148H, Calcium Level 8.1L Height (Feet): 6 Height (Inches): 1.00 Weight (Pounds): 126 General Appearance: no apparent distress, alert Neurologic: oriented x 3, responsive, depressed affect Rachael Buckley MD Jun 10, 2018 14:02
--- NOTE | 2018-06-10 14:37 | Pulmonology Progress Note ---
Assessment/Plan Problems: (1) Acute encephalopathy (2) Emphysema lung (3) Nonhealing ulcer of right lower extremity (4) Hx of CABG (5) HTN (hypertension) Assessment/Plan feeling better now had chest pain earlier wound care symptomatic treatment Subjective ROS Limited/Unobtainable: No Constitutional: Reports: no symptoms HEENT: Repors: no symptoms Respiratory: Reports: no symptoms Allergies: Coded Allergies: EGG (Verified Allergy, Unknown, 09/22/15) MEPERIDINE (Verified Allergy, Unknown, 12/21/10) NITROGLYCERIN (Verified Allergy, Unknown, hives, 02/18/17) Objective Last 24 Hour Vital Signs Date Time Temp Pulse Resp B/P (MAP) Pulse Ox O2 Delivery O2 Flow Rate FiO2 06/10/18 12:31 97.2 06/10/18 12:01 97.2 06/10/18 12:00 105 06/10/18 12:00 98.0 95 19 137/73 (94) 97 98.0 06/10/18 09:00 Room Air 06/10/18 08:36 98 18 98 Room Air 21 06/10/18 08:32 97.2 06/10/18 08:26 97 16 95 Room Air 21 06/10/18 08:00 87 06/10/18 08:00 98.0 86 18 125/73 (90) 97 98.0 06/10/18 07:37 89 18 Room Air 21 06/10/18 04:00 83 06/10/18 04:00 97.2 93 20 138/72 (94) 96 97.2 06/10/18 00:41 97.7 81 20 143/84 (103) 95 97.7 06/10/18 00:00 86 06/09/18 21:00 Room Air 06/09/18 20:00 100 06/09/18 19:56 96.8 87 20 131/85 (100) 97 96.8 06/09/18 19:40 77 18 Room Air 21 06/09/18 17:43 95 20 100 Room Air 21 06/09/18 17:34 90 18 95 Room Air 21 06/09/18 16:19 98.6 06/09/18 16:00 89 06/09/18 16:00 98.6 81 18 114/68 (83) 96 98.6 Intake and Output 06/09/18 06/10/18 19:00 07:00 Intake Total 720 ml Output Total 300 ml Balance 420 ml Intake Oral 720 ml Output Urine Total 300 ml # Voids 1 3 # Bowel Movements 1 General Appearance: cachetic HEENT: normocephalic, atraumatic Respiratory/Chest: chest wall non-tender, lungs clear Cardiovascular: normal peripheral pulses, normal rate Abdomen: normal bowel sounds, soft, non tender Genitourinary: normal external genitalia Extremities: no clubbing Skin: no rash Lymphatic: no neck adenopathy Laboratory Tests 06/10/18 07:10: White Blood Count 8.9, Red Blood Count 5.06, Hemoglobin 13.5L, Hematocrit 42.2, Mean Corpuscular Volume 83, Mean Corpuscular Hemoglobin 26.7L, Mean Corpuscular Hemoglobin Concent 32.0, Red Cell Distribution Width 16.5H, Platelet Count 259, Mean Platelet Volume 6.9, Neutrophils (%) (Auto) 84.3H, Lymphocytes (%) (Auto) 12.8L, Monocytes (%) (Auto) 2.4, Eosinophils (%) (Auto) 0.1, Basophils (%) (Auto ) 0.4, Sodium Level 138, Potassium Level 4.8, Chloride Level 107, Carbon Dioxide Level 20L, Anion Gap 12, Blood Urea Nitrogen 28H, Creatinine 1.6H, Estimat Glomerular Filtration Rate 52.4, Glucose Level 148H, Calcium Level 8.1L Current Medications Medications (Trade) Dose Ordered Sig/Aminata Route PRN Reason Start Time Stop Time Status Last Admin Dose Admin Albuterol/ Ipratropium (Albuterol/ Ipratropium) 3 ml Q4H PRN HHN dyspnea 06/09/18 07:30 06/14/18 07:29 06/10/18 08:25 Dextrose (Dextrose 50%) 25 ml STAT PRN IV Hypoglycemia 06/09/18 07:30 07/09/18 07:29 Dextrose (Dextrose 50%) 50 ml STAT PRN IV Hypoglycemia 06/09/18 08:00 07/09/18 07:59 Heparin Sodium (Porcine) (Heparin 5000 units/ml) 5,000 units EVERY 12 HOURS SUBQ 06/09/18 09:00 07/09/18 08:59 Ketorolac Tromethamine (Toradol 30mg) 30 mg Q8H PRN IV moderate pain 4-6 06/09/18 07:30 06/14/18 07:29 Lorazepam (Ativan 2mg/ml 1ml) 0.5 mg Q4H PRN IV For Anxiety 06/09/18 07:30 06/16/18 07:29 Methylprednisolone Sodium Succinate (Solu-MEDROL) 60 mg EVERY 6 HOURS IV 06/09/18 12:00 07/09/18 11:59 06/10/18 12:01 Mirtazapine (Remeron) 30 mg BEDTIME ORAL 06/09/18 21:00 07/09/18 20:59 06/09/18 21:14 Morphine Sulfate (Morphine Sulfate) 2 mg Q3H PRN IVP severe pain 7-10 06/09/18 12:30 06/16/18 12:29 06/10/18 12:01 Ondansetron HCl (Zofran) 4 mg Q6H PRN IVP Nausea & Vomiting 06/09/18 07:30 07/09/18 07:29 Pantoprazole (Protonix) 40 mg DAILY ORAL 06/10/18 09:00 07/10/18 08:59 06/10/18 09:12 Piperacillin Sod/ Tazobactam Sod 3.375 gm/Dextrose 110 ml @ 27.5 mls/hr Q8H IVPB 06/09/18 09:00 06/16/18 08:59 06/10/18 08:32 Promethazine HCl/ Codeine (Phenergan with Codeine) 5 ml Q6H PRN ORAL cough 06/09/18 07:30 07/09/18 07:29 Ranolazine (Ranexa ER 500mg) 500 mg Q12HR ORAL 06/10/18 09:00 07/10/18 08:59 06/10/18 09:12 Temazepam (Restoril) 15 mg HSPRN PRN ORAL Insomnia 06/09/18 07:30 06/16/18 07:29 Theophylline (Wilfrido-Dur) 100 mg EVERY 12 HOURS ORAL 06/09/18 09:00 07/09/18 08:59 06/10/18 08:31 Jessie Magana MD Jun 10, 2018 14:37
[2018-06-10] MEDS: Morphine Sulfate 4mg/ml Inj IVP PRN ×3 (15:43→22:08)
[2018-06-10 16:00] VITALS: BP 127/77
--- NOTE | 2018-06-10 18:45 | Internal Med Progress Note ---
Subjective Date of Service: Jun 10, 2018 Physician Name Shantanu Reyna Attending Physician Phil Wright MD Current Medications Medications (Trade) Dose Ordered Sig/Aminata Route PRN Reason Start Time Stop Time Status Last Admin Dose Admin Albuterol/ Ipratropium (Albuterol/ Ipratropium) 3 ml Q4H PRN HHN dyspnea 06/09/18 07:30 06/14/18 07:29 06/10/18 08:25 Dextrose (Dextrose 50%) 25 ml STAT PRN IV Hypoglycemia 06/09/18 07:30 07/09/18 07:29 Dextrose (Dextrose 50%) 50 ml STAT PRN IV Hypoglycemia 06/09/18 08:00 07/09/18 07:59 Heparin Sodium (Porcine) (Heparin 5000 units/ml) 5,000 units EVERY 12 HOURS SUBQ 06/09/18 09:00 07/09/18 08:59 Ketorolac Tromethamine (Toradol 30mg) 30 mg Q8H PRN IV moderate pain 4-6 06/09/18 07:30 06/14/18 07:29 Lorazepam (Ativan 2mg/ml 1ml) 0.5 mg Q4H PRN IV For Anxiety 06/09/18 07:30 06/16/18 07:29 Methylprednisolone Sodium Succinate (Solu-MEDROL) 60 mg EVERY 6 HOURS IV 06/09/18 12:00 07/09/18 11:59 06/10/18 18:13 Mirtazapine (Remeron) 30 mg BEDTIME ORAL 06/09/18 21:00 07/09/18 20:59 06/09/18 21:14 Morphine Sulfate (Morphine Sulfate) 4 mg Q3H PRN IVP Severe Pain (Pain Scale 7-10) 06/10/18 15:30 06/16/18 12:29 06/10/18 15:43 Ondansetron HCl (Zofran) 4 mg Q6H PRN IVP Nausea & Vomiting 06/09/18 07:30 07/09/18 07:29 Pantoprazole (Protonix) 40 mg DAILY ORAL 06/10/18 09:00 07/10/18 08:59 06/10/18 09:12 Promethazine HCl/ Codeine (Phenergan with Codeine) 5 ml Q6H PRN ORAL cough 06/09/18 07:30 07/09/18 07:29 Ranolazine (Ranexa ER 500mg) 500 mg Q12HR ORAL 06/10/18 09:00 07/10/18 08:59 06/10/18 09:12 Temazepam (Restoril) 15 mg HSPRN PRN ORAL Insomnia 06/09/18 07:30 06/16/18 07:29 Theophylline (Wilfrido-Dur) 100 mg EVERY 12 HOURS ORAL 06/09/18 09:00 07/09/18 08:59 06/10/18 08:31 Allergies: Coded Allergies: EGG (Verified Allergy, Unknown, 09/22/15) MEPERIDINE (Verified Allergy, Unknown, 12/21/10) NITROGLYCERIN (Verified Allergy, Unknown, hives, 02/18/17) ROS Limited/Unobtainable: No Constitutional: Reports: no symptoms HEENT: Reports: no symptoms Cardiovascular: Reports: no symptoms Respiratory: Reports: no symptoms Gastrointestinal/Abdominal: Reports: no symptoms Genitourinary: Reports: no symptoms 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: Reports: no symptoms Subjective 67 YO M admitted because he did not receive his medication on discharge. Cover for [facility] Med-Dr Wright. Objective Last Vital Signs Date Time Temp Pulse Resp B/P (MAP) Pulse Ox O2 Delivery O2 Flow Rate FiO2 06/10/18 16:13 97.9 06/10/18 16:00 111 06/10/18 16:00 18 127/77 (94) 95 06/10/18 09:00 Room Air 06/10/18 08:36 21 General Appearance: mild distress, cachetic, thin EENT: PERRL/EOMI, normal ENT inspection, TMs normal Neck: non-tender, normal alignment, supple, normal inspection Cardiovascular: normal peripheral pulses, normal rate, regular rhythm, no gallop/murmur, no JVD Respiratory/Chest: chest wall non-tender, lungs clear, normal breath sounds, no respiratory distress, no accessory muscle use Abdomen: normal bowel sounds, non tender, soft, no organomegaly, no mass Extremities: normal range of motion Neurologic: skin drier II-XII grossly normal Skin: normal pigmentation, warm/dry Laboratory Tests Test 06/10/18 07:10 White Blood Count 8.9 K/UL (4.8-10.8) Red Blood Count 5.06 M/UL (4.70-6.10) Hemoglobin 13.5 G/DL (14.2-18.0) L Hematocrit 42.2 % (42.0-52.0) Mean Corpuscular Volume 83 FL (80-99) Mean Corpuscular Hemoglobin 26.7 PG (27.0-31.0) L Mean Corpuscular Hemoglobin Concent 32.0 G/DL (32.0-36.0) Red Cell Distribution Width 16.5 % (11.6-14.8) H Platelet Count 259 K/UL (150-450) Mean Platelet Volume 6.9 FL (6.5-10.1) Neutrophils (%) (Auto) 84.3 % (45.0-75.0) H Lymphocytes (%) (Auto) 12.8 % (20.0-45.0) L Monocytes (%) (Auto) 2.4 % (1.0-10.0) Eosinophils (%) (Auto) 0.1 % (0.0-3.0) Basophils (%) (Auto) 0.4 % (0.0-2.0) Sodium Level 138 MMOL/L (136-145) Potassium Level 4.8 MMOL/L (3.5-5.1) Chloride Level 107 MMOL/L (98-107) Carbon Dioxide Level 20 MMOL/L (21-32) L Anion Gap 12 mmol/L (5-15) Blood Urea Nitrogen 28 mg/dL (7-18) H Creatinine 1.6 MG/DL (0.55-1.30) H Estimat Glomerular Filtration Rate 52.4 mL/min (>60) Glucose Level 148 MG/DL (74-106) H Calcium Level 8.1 MG/DL (8.5-10.1) L Intake and Output 06/09/18 06/10/18 19:00 07:00 Intake Total 720 ml Output Total 300 ml Balance 420 ml Intake Oral 720 ml Output Urine Total 300 ml # Voids 1 3 # Bowel Movements 1 Assessment/Plan Problem List: (1) COPD exacerbation (2) Cellulitis of right ankle Assessment & Plan: Continue zosyn (3) HTN (hypertension) (4) CAD (coronary artery disease) Assessment & Plan: See cardiology note. (5) Ulcer of right lower leg Assessment/Plan Discharge plan: Patient claims he did not receive medication on discharge. Patient last on Hospice until 05/26/18. Hospice to fax list of medication tomorrow 06/11/18. Shantanu Reyna MD Jun 10, 2018 18:45
[2018-06-11] VITALS: BP 130/73
[2018-06-11] MEDS: Solu-MEDROL 125mg Inj IV SCH ×4 (00:59→18:10)
[2018-06-11] MEDS: Morphine Sulfate 4mg/ml Inj IVP PRN ×7 (01:00→21:44)
[2018-06-11 04:00] VITALS: BP 122/80
[2018-06-11 08:00] VITALS: BP 123/81
[2018-06-11] MEDS: Ranolazine 500mg tab ORAL SCH ×2 (08:15→21:01)
[2018-06-11] MEDS: Theophylline ER 100mg ORAL SCH ×2 (08:15→21:01)
[2018-06-11] MEDS: Heparin 5000 units/ml inj SUBQ SCH ×2 (08:20→20:45)
[2018-06-11 08:35] LABS: HEMATOCRIT 43.1 % (42.0-52.0); HEMOGLOBIN 13.5 G/DL (14.2-18.0); MEAN CORPUSCULAR VOLUME 84 FL (80-99); PLATELET COUNT 281 K/UL (150-450); RED BLOOD COUNT 5.11 M/UL (4.70-6.10); RED CELL DISTRIBUTION WIDTH 16.7 % (11.6-14.8); WHITE BLOOD COUNT 14.7 K/UL (4.8-10.8)
[2018-06-11 08:50] LABS: ANION GAP 13 mmol/L (5-15); BLOOD UREA NITROGEN 36 mg/dL (7-18); CALCIUM 8.3 MG/DL (8.5-10.1); CARBON DIOXIDE 19 MMOL/L (21-32); CHLORIDE 107 MMOL/L (98-107); CREATININE 1.6 MG/DL (0.55-1.30); POTASSIUM 4.4 MMOL/L (3.5-5.1); SODIUM 139 MMOL/L (136-145)
[2018-06-11] MEDS: Albuterol/Ipratropium 3ml neb HHN PRN ×2 (09:53→15:45)
[2018-06-11] MEDS ORDERED: Ranolazine 500mg tab ORAL SCH (10:30)
--- NOTE | 2018-06-11 10:35 | Pulmonology Progress Note ---
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 now had chest pain earlier wound care symptomatic treatment Subjective ROS Limited/Unobtainable: No Constitutional: Reports: no symptoms HEENT: Repors: no symptoms Respiratory: Reports: no symptoms Allergies: Coded Allergies: EGG (Verified Allergy, Unknown, 09/22/15) MEPERIDINE (Verified Allergy, Unknown, 12/21/10) NITROGLYCERIN (Verified Allergy, Unknown, hives, 02/18/17) Objective Last 24 Hour Vital Signs Date Time Temp Pulse Resp B/P (MAP) Pulse Ox O2 Delivery O2 Flow Rate FiO2 06/11/18 10:02 109 20 100 Room Air 21 06/11/18 09:54 111 20 99 Room Air 21 06/11/18 09:00 Room Air 06/11/18 08:52 97.9 06/11/18 08:22 97.9 06/11/18 08:00 104 06/11/18 08:00 98.0 96 18 123/81 (95) 100 98.0 06/11/18 04:00 97.9 98 18 122/80 (94) 100 97.9 06/11/18 04:00 94 06/11/18 00:00 96 06/11/18 00:00 97.8 97 18 130/73 (92) 97 97.8 06/10/18 21:00 Room Air 06/10/18 20:00 121 06/10/18 19:50 106 20 98 Room Air 21 06/10/18 19:41 101 20 Room Air 21 06/10/18 19:41 101 20 96 Room Air 21 06/10/18 18:46 97.9 06/10/18 16:00 111 06/10/18 16:00 97.9 98 18 127/77 (94) 95 97.9 06/10/18 15:43 97.2 06/10/18 12:31 97.2 06/10/18 12:01 97.2 06/10/18 12:00 105 06/10/18 12:00 98.0 95 19 137/73 (94) 97 98.0 Intake and Output 06/10/18 06/11/18 19:00 07:00 Intake Total 1500 ml 200 ml Output Total 600 ml 250 ml Balance 900 ml -50 ml Intake Oral 200 ml Other 1500 ml Output Urine Total 600 ml 250 ml General Appearance: WD/WN HEENT: normocephalic, atraumatic, anicteric Respiratory/Chest: chest wall non-tender, lungs clear Cardiovascular: normal peripheral pulses, normal rate Abdomen: normal bowel sounds, no organomegaly 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 Laboratory Tests 06/11/18 07:10: White Blood Count 14.7#H, Red Blood Count 5.11, Hemoglobin 13.5L, Hematocrit 43.1, Mean Corpuscular Volume 84, Mean Corpuscular Hemoglobin 26.4L, Mean Corpuscular Hemoglobin Concent 31.2L, Red Cell Distribution Width 16.7H, Platelet Count 281, Mean Platelet Volume 6.6, Neutrophils (%) (Auto) , Lymphocytes (%) (Auto) , Monocytes (%) (Auto) , Eosinophils (%) (Auto) , Basophils (%) (Auto) , Neutrophils % (Manual) [Pending], Lymphocytes % (Manual) [Pending], Platelet Estimate [Pending], Platelet Morphology [Pending], Sodium Level 139, Potassium Level 4.4, Chloride Level 107, Carbon Dioxide Level 19L, Anion Gap 13, Blood Urea Nitrogen 36H, Creatinine 1.6H, Estimat Glomerular Filtration Rate 52.4, Glucose Level 173H, Calcium Level 8.3L Current Medications Medications (Trade) Dose Ordered Sig/Aminata Route PRN Reason Start Time Stop Time Status Last Admin Dose Admin Albuterol/ Ipratropium (Albuterol/ Ipratropium) 3 ml Q4H PRN HHN dyspnea 06/09/18 07:30 06/14/18 07:29 06/11/18 09:53 Dextrose (Dextrose 50%) 25 ml STAT PRN IV Hypoglycemia 06/09/18 07:30 07/09/18 07:29 Dextrose (Dextrose 50%) 50 ml STAT PRN IV Hypoglycemia 06/09/18 08:00 07/09/18 07:59 Heparin Sodium (Porcine) (Heparin 5000 units/ml) 5,000 units EVERY 12 HOURS SUBQ 06/09/18 09:00 07/09/18 08:59 06/11/18 08:20 Ketorolac Tromethamine (Toradol 30mg) 30 mg Q8H PRN IV moderate pain 4-6 06/09/18 07:30 06/14/18 07:29 Lorazepam (Ativan 2mg/ml 1ml) 0.5 mg Q4H PRN IV For Anxiety 06/09/18 07:30 06/16/18 07:29 Methylprednisolone Sodium Succinate (Solu-MEDROL) 60 mg EVERY 6 HOURS IV 06/09/18 12:00 07/09/18 11:59 06/11/18 05:06 Mirtazapine (Remeron) 30 mg BEDTIME ORAL 06/09/18 21:00 07/09/18 20:59 06/10/18 21:08 Morphine Sulfate (Morphine Sulfate) 4 mg Q3H PRN IVP Severe Pain (Pain Scale 7-10) 06/10/18 15:30 06/16/18 12:29 06/11/18 08:22 Ondansetron HCl (Zofran) 4 mg Q6H PRN IVP Nausea & Vomiting 06/09/18 07:30 07/09/18 07:29 Pantoprazole (Protonix) 40 mg DAILY ORAL 06/10/18 09:00 07/10/18 08:59 06/11/18 08:15 Promethazine HCl/ Codeine (Phenergan with Codeine) 5 ml Q6H PRN ORAL cough 06/09/18 07:30 07/09/18 07:29 Ranolazine (Ranexa ER 500mg) 500 mg ONCE ONCE ORAL 06/11/18 10:30 06/11/18 10:31 UNV Ranolazine (Ranexa ER 500mg) 1,000 mg Q12HR ORAL 06/11/18 21:00 07/10/18 08:59 UNV Temazepam (Restoril) 15 mg HSPRN PRN ORAL Insomnia 06/09/18 07:30 06/16/18 07:29 Theophylline (Wilfrido-Dur) 100 mg EVERY 12 HOURS ORAL 06/09/18 09:00 07/09/18 08:59 06/11/18 08:15 Jessie Magana MD Jun 11, 2018 10:35
--- NOTE | 2018-06-11 11:39 | General Progress Note ---
Assessment/Plan Status: stable, progressing Assessment/Plan MDD Anxiety d/o remeron to 30mg po qhs the pt st/ro Subjective Date patient seen: Jun 11, 2018 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: Reports: anxiety, depressed Allergies: Coded Allergies: EGG (Verified Allergy, Unknown, 09/22/15) MEPERIDINE (Verified Allergy, Unknown, 12/21/10) NITROGLYCERIN (Verified Allergy, Unknown, hives, 02/18/17) Subjective the pt is irritable and anxious he requested to increase the Remeron Objective Last 24 Hour Vital Signs Date Time Temp Pulse Resp B/P (MAP) Pulse Ox O2 Delivery O2 Flow Rate FiO2 06/11/18 10:02 109 20 100 Room Air 21 06/11/18 09:54 111 20 99 Room Air 21 06/11/18 09:00 Room Air 06/11/18 08:52 97.9 06/11/18 08:22 97.9 06/11/18 08:11 100 20 Room Air 21 06/11/18 08:00 104 06/11/18 08:00 98.0 96 18 123/81 (95) 100 98.0 06/11/18 04:00 97.9 98 18 122/80 (94) 100 97.9 06/11/18 04:00 94 06/11/18 00:00 96 06/11/18 00:00 97.8 97 18 130/73 (92) 97 97.8 06/10/18 21:00 Room Air 06/10/18 20:00 121 06/10/18 19:50 106 20 98 Room Air 21 06/10/18 19:41 101 20 Room Air 21 06/10/18 19:41 101 20 96 Room Air 21 06/10/18 18:46 97.9 06/10/18 16:00 111 06/10/18 16:00 97.9 98 18 127/77 (94) 95 97.9 06/10/18 15:43 97.2 06/10/18 12:31 97.2 06/10/18 12:01 97.2 06/10/18 12:00 105 06/10/18 12:00 98.0 95 19 137/73 (94) 97 98.0 Intake and Output 06/10/18 06/11/18 19:00 07:00 Intake Total 1500 ml 200 ml Output Total 600 ml 250 ml Balance 900 ml -50 ml Intake Oral 200 ml Other 1500 ml Output Urine Total 600 ml 250 ml Laboratory Tests 06/11/18 07:10: White Blood Count 14.7#H, Red Blood Count 5.11, Hemoglobin 13.5L, Hematocrit 43.1, Mean Corpuscular Volume 84, Mean Corpuscular Hemoglobin 26.4L, Mean Corpuscular Hemoglobin Concent 31.2L, Red Cell Distribution Width 16.7H, Platelet Count 281, Mean Platelet Volume 6.6, Neutrophils (%) (Auto) , Lymphocytes (%) (Auto) , Monocytes (%) (Auto) , Eosinophils (%) (Auto) , Basophils (%) (Auto) , Differential Total Cells Counted 100, Neutrophils % ( Manual) 89H, Lymphocytes % (Manual) 9L, Monocytes % (Manual) 1, Eosinophils % ( Manual) 0, Basophils % (Manual) 0, Band Neutrophils 1, Platelet Estimate Adequate, Platelet Morphology Normal, Sodium Level 139, Potassium Level 4.4, Chloride Level 107, Carbon Dioxide Level 19L, Anion Gap 13, Blood Urea Nitrogen 36H, Creatinine 1.6H, Estimat Glomerular Filtration Rate 52.4, Glucose Level 173H, Calcium Level 8.3L Height (Feet): 6 Height (Inches): 1.00 Weight (Pounds): 126 General Appearance: alert, moderate distress Neurologic: oriented x 3, responsive, depressed affect Rachael Buckley MD Jun 11, 2018 11:39
[2018-06-11 12:00] VITALS: BP 144/78
--- NOTE | 2018-06-11 12:36 | Consultation ---
History of Present Illness General Date patient seen: Jun 11, 2018 Chief Complaint: Chest Pain Reason for Consultation: right foot pain and ulcer Present Illness HPI 67 year old male well known to me from prior admission. has had chronic right lateral foot ulcer which is slowly healing. has had work up including plain films, arterial and venous duplex studies, and senior care wound care. states pain in bilateral feet and has been having for some time now. no n/v/f/c. recently returned because states was discharged without cardiac meds and was not doing well. surgery called to evaluate. patient seen, chart reviewed, patient examined. Allergies: Coded Allergies: EGG (Verified Allergy, Unknown, 09/22/15) MEPERIDINE (Verified Allergy, Unknown, 12/21/10) NITROGLYCERIN (Verified Allergy, Unknown, hives, 02/18/17) Medication History Scheduled Amlodipine Besylate* (Amlodipine Besylate*), 10 MG ORAL DAILY, (Reported) Cephalexin* (Keflex*), 500 MG ORAL EVERY 8 HOURS, (Reported) Clopidogrel Bisulfate* (Plavix*), 75 MG ORAL DAILY, (Reported) Hydromorphone Hcl (Dilaudid), 2 MG PO EVERY 4 HOURS Levetiracetam (Keppra), 500 MG ORAL DAILY, (Reported) Metoprolol Succinate* (Metoprolol Succinate*), 50 MG ORAL BID, (Reported) Mirtazapine* (Remeron*), 15 MG ORAL BEDTIME, (Reported) Ranitidine Hcl* (Zantac*), 150 MG ORAL Q12HR Theophylline (Theodur*), 100 MG ORAL EVERY 12 HOURS Scheduled PRN Albuterol Sulfate (Ventolin Hfa), 1 PUFF INH EVERY 6 HOURS PRN Docusate Sodium* (Colace*), 100 MG ORAL DAILY PRN for Constipation, (Reported) Ondansetron Hcl* (Zofran*), 8 MG ORAL Q6H PRN for Nausea & Vomiting, (Reported) Patient History History Provided By: Patient, Medical Record, PMD Healthcare decision maker Resuscitation status Full Code Advanced Directive on File Past Medical/Surgical History Past Medical/Surgical History: (1) CAD (coronary artery disease) (2) Emphysema lung (3) HTN (hypertension) (4) Acute encephalopathy (5) Nonhealing ulcer of right lower extremity (6) Esophagitis (7) Odynophagia (8) Dehydration (9) Hyperkalemia (10) Shingles (11) SOB (shortness of breath) (12) Edema (13) Gastritis (14) Gastroenteritis (15) CHF (congestive heart failure) (16) Hypothyroidism (17) Renal failure (18) Seizure disorder (19) Syncope (20) Peripheral vascular disease (21) Acute bronchitis (22) Cardiac dysrhythmia (23) ATN (acute tubular necrosis) (24) Bronchitis (25) Pneumonia (26) Severe malnutrition (27) HTN (hypertension) (28) Chronic pain (29) Vikki esophagitis (30) Cellulitis, leg (31) DM (diabetes mellitus) (32) Diabetic foot ulcer (33) Diabetes mellitus type II, uncontrolled (34) Atypical chest pain (35) ACS (acute coronary syndrome) (36) ACS (acute coronary syndrome) (37) ACS (acute coronary syndrome) (38) ACS (acute coronary syndrome) (39) ACS (acute coronary syndrome) (40) ACS (acute coronary syndrome) (41) ACS (acute coronary syndrome) (42) ACS (acute coronary syndrome) (43) Right hip pain (44) COPD exacerbation (45) COPD exacerbation (46) COPD exacerbation (47) COPD exacerbation (48) Peripheral arterial disease (49) FTT (failure to thrive) in adult (50) Acute on chronic renal failure (51) History of heart attack (52) Hip dislocation, right (53) Osteomyelitis of right leg (54) Swelling of ankle joint, right (55) Cellulitis of right leg (56) Chronic ulcer of right leg (57) Injury of lower extremity (58) Intractable back pain (59) Chest pain with minimal risk of acute coronary syndrome (60) Decubitus ulcer, ankle, right, unstageable (61) Closed fracture of tibia and fibula with malunion (62) Pain of right lower extremity (63) Cellulitis of right ankle (64) Ulcer of right lower leg (65) Osteomyelitis of right lower extremity (66) Chest pain (67) Renal insufficiency (68) Chest pain (69) COPD exacerbation Review of Systems All Other Systems: negative except mentioned in HPI Physical Exam General Appearance: no apparent distress HEENT: mucous membranes moist Neck: normal alignment Respiratory/Chest: normal breath sounds, no respiratory distress, no accessory muscle use Cardiovascular/Chest: normal rate Abdomen: soft, no organomegaly, no mass Extremities: normal inspection, other - right lateral malleoulus ulcer improving Skin Exam: warm/dry Neurologic: alert, oriented x 3 Last 24 Hour Vital Signs Date Time Temp Pulse Resp B/P (MAP) Pulse Ox O2 Delivery O2 Flow Rate FiO2 06/11/18 11:39 97.9 06/11/18 10:02 109 20 100 Room Air 21 06/11/18 09:54 111 20 99 Room Air 21 06/11/18 09:00 Room Air 06/11/18 08:52 97.9 06/11/18 08:22 97.9 06/11/18 08:11 100 20 Room Air 21 06/11/18 08:00 104 06/11/18 08:00 98.0 96 18 123/81 (95) 100 98.0 06/11/18 04:00 97.9 98 18 122/80 (94) 100 97.9 06/11/18 04:00 94 06/11/18 00:00 96 06/11/18 00:00 97.8 97 18 130/73 (92) 97 97.8 06/10/18 21:00 Room Air 06/10/18 20:00 121 06/10/18 19:50 106 20 98 Room Air 21 06/10/18 19:41 101 20 Room Air 21 06/10/18 19:41 101 20 96 Room Air 21 06/10/18 18:46 97.9 06/10/18 16:00 111 06/10/18 16:00 97.9 98 18 127/77 (94) 95 97.9 06/10/18 15:43 97.2 Intake and Output 06/10/18 06/11/18 19:00 07:00 Intake Total 1500 ml 200 ml Output Total 600 ml 250 ml Balance 900 ml -50 ml Intake Oral 200 ml Other 1500 ml Output Urine Total 600 ml 250 ml Laboratory Tests Test 06/11/18 07:10 White Blood Count 14.7 K/UL (4.8-10.8) #H Red Blood Count 5.11 M/UL (4.70-6.10) Hemoglobin 13.5 G/DL (14.2-18.0) L Hematocrit 43.1 % (42.0-52.0) Mean Corpuscular Volume 84 FL (80-99) Mean Corpuscular Hemoglobin 26.4 PG (27.0-31.0) L Mean Corpuscular Hemoglobin Concent 31.2 G/DL (32.0-36.0) L Red Cell Distribution Width 16.7 % (11.6-14.8) H Platelet Count 281 K/UL (150-450) Mean Platelet Volume 6.6 FL (6.5-10.1) Neutrophils (%) (Auto) % (45.0-75.0) Lymphocytes (%) (Auto) % (20.0-45.0) Monocytes (%) (Auto) % (1.0-10.0) Eosinophils (%) (Auto) % (0.0-3.0) Basophils (%) (Auto) % (0.0-2.0) Differential Total Cells Counted 100 Neutrophils % (Manual) 89 % (45-75) H Lymphocytes % (Manual) 9 % (20-45) L Monocytes % (Manual) 1 % (1-10) Eosinophils % (Manual) 0 % (0-3) Basophils % (Manual) 0 % (0-2) Band Neutrophils 1 % (0-8) Platelet Estimate Adequate Platelet Morphology Normal Sodium Level 139 MMOL/L (136-145) Potassium Level 4.4 MMOL/L (3.5-5.1) Chloride Level 107 MMOL/L (98-107) Carbon Dioxide Level 19 MMOL/L (21-32) L Anion Gap 13 mmol/L (5-15) Blood Urea Nitrogen 36 mg/dL (7-18) H Creatinine 1.6 MG/DL (0.55-1.30) H Estimat Glomerular Filtration Rate 52.4 mL/min (>60) Glucose Level 173 MG/DL (74-106) H Calcium Level 8.3 MG/DL (8.5-10.1) L Height (Feet): 6 Height (Inches): 1.00 Weight (Pounds): 126 Medications Current Medications Medications (Trade) Dose Ordered Sig/Aminata Route PRN Reason Start Time Stop Time Status Last Admin Dose Admin Albuterol/ Ipratropium (Albuterol/ Ipratropium) 3 ml Q4H PRN HHN dyspnea 06/09/18 07:30 06/14/18 07:29 06/11/18 09:53 Dextrose (Dextrose 50%) 25 ml STAT PRN IV Hypoglycemia 06/09/18 07:30 07/09/18 07:29 Dextrose (Dextrose 50%) 50 ml STAT PRN IV Hypoglycemia 06/09/18 08:00 07/09/18 07:59 Heparin Sodium (Porcine) (Heparin 5000 units/ml) 5,000 units EVERY 12 HOURS SUBQ 06/09/18 09:00 07/09/18 08:59 06/11/18 08:20 Ketorolac Tromethamine (Toradol 30mg) 30 mg Q8H PRN IV moderate pain 4-6 06/09/18 07:30 06/14/18 07:29 Lorazepam (Ativan 2mg/ml 1ml) 0.5 mg Q4H PRN IV For Anxiety 06/09/18 07:30 06/16/18 07:29 Methylprednisolone Sodium Succinate (Solu-MEDROL) 60 mg EVERY 6 HOURS IV 06/09/18 12:00 07/09/18 11:59 06/11/18 11:39 Mirtazapine (Remeron) 45 mg BEDTIME PO 06/11/18 21:00 07/11/18 20:59 Morphine Sulfate (Morphine Sulfate) 4 mg Q3H PRN IVP Severe Pain (Pain Scale 7-10) 06/10/18 15:30 06/16/18 12:29 06/11/18 11:39 Ondansetron HCl (Zofran) 4 mg Q6H PRN IVP Nausea & Vomiting 06/09/18 07:30 07/09/18 07:29 Pantoprazole (Protonix) 40 mg DAILY ORAL 06/10/18 09:00 07/10/18 08:59 06/11/18 08:15 Promethazine HCl/ Codeine (Phenergan with Codeine) 5 ml Q6H PRN ORAL cough 06/09/18 07:30 07/09/18 07:29 Ranolazine (Ranexa ER 500mg) 1,000 mg Q12HR ORAL 06/11/18 21:00 07/10/18 08:59 Temazepam (Restoril) 15 mg HSPRN PRN ORAL Insomnia 06/09/18 07:30 06/16/18 07:29 Theophylline (Wilfrido-Dur) 100 mg EVERY 12 HOURS ORAL 06/09/18 09:00 07/09/18 08:59 06/11/18 08:15 Assessment/Plan Problem List: (1) Nonhealing ulcer of right lower extremity Assessment & Plan: improved with good wound care since last admission. still with bilateral pain in feet but ambulate to ambulate without difficulty no organic etiology found on extensive work up -okay to ambulate -honey gel and foam dressings to wound -will monitor thank you for this consultation. ICD Codes: L97.919 - Non-pressure chronic ulcer of unspecified part of right lower leg with unspecified severity SNOMED: [id number] Qualifiers: Qualified Codes: L97.911 - Non-pressure chronic ulcer of unspecified part of right lower leg limited to breakdown of skin Status: stable Ugo Simms Jun 11, 2018 12:36
--- NOTE | 2018-06-11 13:08 | Cardiology Progress Note ---
Assessment/Plan Status: stable, progressing Assessment/Plan 1) COPD 2) Coronary artery disease 3) Chest pain 4) LE chronic non healing wounds 5) KEITH 6) Hepatitis C 7) CHF Plan Troponin negative, CXR clear with no fluid overload Patient does not want stress test Treat for COPD - duonebs, steroids Continue plavix continue metoprolol Continue amlodipine Nitro prn CP Increase ranexa to 1000 BID Omeprazole daily Dispo planning Subjective Cardiovascular: Reports: no symptoms Respiratory: Reports: no symptoms Gastrointestinal/Abdominal: Reports: no symptoms Genitourinary: Reports: no symptoms Subjective No acute events, no complaints, complain of intermittent chest pain, vitals stable. He does not want stress test Objective Last 24 Hour Vital Signs Date Time Temp Pulse Resp B/P (MAP) Pulse Ox O2 Delivery O2 Flow Rate FiO2 06/11/18 12:09 97.9 06/11/18 12:00 123 06/11/18 12:00 97.9 126 20 144/78 (100) 100 97.9 06/11/18 11:39 97.9 06/11/18 10:02 109 20 100 Room Air 21 06/11/18 09:54 111 20 99 Room Air 21 06/11/18 09:00 Room Air 06/11/18 08:22 97.9 06/11/18 08:11 100 20 Room Air 21 06/11/18 08:00 104 06/11/18 08:00 98.0 96 18 123/81 (95) 100 98.0 06/11/18 04:00 97.9 98 18 122/80 (94) 100 97.9 06/11/18 04:00 94 06/11/18 00:00 96 06/11/18 00:00 97.8 97 18 130/73 (92) 97 97.8 06/10/18 21:00 Room Air 06/10/18 20:00 121 06/10/18 19:50 106 20 98 Room Air 21 06/10/18 19:41 101 20 Room Air 21 06/10/18 19:41 101 20 96 Room Air 21 06/10/18 18:46 97.9 06/10/18 16:00 111 06/10/18 16:00 97.9 98 18 127/77 (94) 95 97.9 06/10/18 15:43 97.2 General Appearance: no apparent distress EENT: PERRL/EOMI Neck: non-tender Rhythm: NSR Cardiovascular: normal peripheral pulses, no gallop/murmur Respiratory/Chest: lungs clear Abdomen: normal bowel sounds Extremities: normal range of motion Neurologic: no motor/sensory deficits Intake and Output 06/10/18 06/11/18 19:00 07:00 Intake Total 1500 ml 200 ml Output Total 600 ml 250 ml Balance 900 ml -50 ml Intake Oral 200 ml Other 1500 ml Output Urine Total 600 ml 250 ml Laboratory Tests Test 06/11/18 07:10 White Blood Count 14.7 K/UL (4.8-10.8) #H Red Blood Count 5.11 M/UL (4.70-6.10) Hemoglobin 13.5 G/DL (14.2-18.0) L Hematocrit 43.1 % (42.0-52.0) Mean Corpuscular Volume 84 FL (80-99) Mean Corpuscular Hemoglobin 26.4 PG (27.0-31.0) L Mean Corpuscular Hemoglobin Concent 31.2 G/DL (32.0-36.0) L Red Cell Distribution Width 16.7 % (11.6-14.8) H Platelet Count 281 K/UL (150-450) Mean Platelet Volume 6.6 FL (6.5-10.1) Neutrophils (%) (Auto) % (45.0-75.0) Lymphocytes (%) (Auto) % (20.0-45.0) Monocytes (%) (Auto) % (1.0-10.0) Eosinophils (%) (Auto) % (0.0-3.0) Basophils (%) (Auto) % (0.0-2.0) Differential Total Cells Counted 100 Neutrophils % (Manual) 89 % (45-75) H Lymphocytes % (Manual) 9 % (20-45) L Monocytes % (Manual) 1 % (1-10) Eosinophils % (Manual) 0 % (0-3) Basophils % (Manual) 0 % (0-2) Band Neutrophils 1 % (0-8) Platelet Estimate Adequate Platelet Morphology Normal Sodium Level 139 MMOL/L (136-145) Potassium Level 4.4 MMOL/L (3.5-5.1) Chloride Level 107 MMOL/L (98-107) Carbon Dioxide Level 19 MMOL/L (21-32) L Anion Gap 13 mmol/L (5-15) Blood Urea Nitrogen 36 mg/dL (7-18) H Creatinine 1.6 MG/DL (0.55-1.30) H Estimat Glomerular Filtration Rate 52.4 mL/min (>60) Glucose Level 173 MG/DL (74-106) H Calcium Level 8.3 MG/DL (8.5-10.1) L Adonis Winn M.D. Jun 11, 2018 13:08
--- NOTE | 2018-06-11 14:07 | Infectious Diseases Prog Note ---
Assessment/Plan Assessment/Plan Abx: Zosyn 06/09- Assessment: COPD exacerbation; improving -CXR: Lungs are hyperexpanded Afebrile -Leukocytosis - due to high dose steroids Recurrent Leg cellulitis, s/p Rx- at present no signs of cellulitis -R ankle cellulitis early 05/2018, s/p Rx -B/l leg cellulitis 03/2018, s/p Rx Chronic R>L edema R Ankle chronic ulcer- healing, no signs of infection -R ankle xray 05/31/2018: Severe post fracture deformity of the ankle as described above. No significant change. -R foot xray 03/2018: No acute injury identified. Abnormal fifth MPJ joint which may be on the basis of previous surgery/trauma or old erosive process. Osteoporosis -a. duplex: A mild (10-30%) stenosis is seen in the mid superficial femoral artery. There is no evidence of occlusion within this segment. HTN severe malnutrition MDD tobacco abuse seizure disorder emphysema DM2 CAD s/p CABG COPD -recent exacerbation requiring admission 02/2018 bedbound Plan: -Continue to monitor off abx -06/10 SP Zosyn #2 -06/03 SP Keflex #1 -06/02 SP Ancef #6 -05/16 SP Ancef # 5 -05/12 SP Cefepime and Zosyn x1 -5/3 SP PO Levaquin #3 -03/23/18 SP Zosyn #2 -f/u cx -Monitor CBC/CMP, temperatures -wound care per hosp protocol -Consider Gabapentin for neuropathic pain Thank you for this consultation. Will continue to follow along with you. Discussed with RN. Subjective Allergies: Coded Allergies: EGG (Verified Allergy, Unknown, 09/22/15) MEPERIDINE (Verified Allergy, Unknown, 12/21/10) NITROGLYCERIN (Verified Allergy, Unknown, hives, 02/18/17) Subjective afebrile WBC 14, on high dose sterodis now off abx Objective Vital Signs Last 24 Hour Vital Signs Date Time Temp Pulse Resp B/P (MAP) Pulse Ox O2 Delivery O2 Flow Rate FiO2 06/11/18 12:09 97.9 06/11/18 12:00 123 06/11/18 12:00 97.9 126 20 144/78 (100) 100 97.9 06/11/18 11:39 97.9 06/11/18 10:02 109 20 100 Room Air 21 06/11/18 09:54 111 20 99 Room Air 21 06/11/18 09:00 Room Air 06/11/18 08:22 97.9 06/11/18 08:11 100 20 Room Air 21 06/11/18 08:00 104 06/11/18 08:00 98.0 96 18 123/81 (95) 100 98.0 06/11/18 04:00 97.9 98 18 122/80 (94) 100 97.9 06/11/18 04:00 94 06/11/18 00:00 96 06/11/18 00:00 97.8 97 18 130/73 (92) 97 97.8 06/10/18 21:00 Room Air 06/10/18 20:00 121 06/10/18 19:50 106 20 98 Room Air 21 06/10/18 19:41 101 20 Room Air 21 06/10/18 19:41 101 20 96 Room Air 21 06/10/18 18:46 97.9 06/10/18 16:00 111 06/10/18 16:00 97.9 98 18 127/77 (94) 95 97.9 06/10/18 15:43 97.2 Height (Feet): 6 Height (Inches): 1.00 Weight (Pounds): 126 Objective General Appearance: no apparent distress Lines, tubes and drains: peripheral HEENT: normocephalic Neck: non-tender Respiratory/Chest: chest wall non-tender, accessory muscle use, expiratory wheezing Cardiovascular/Chest: normal peripheral pulses Abdomen: normal bowel sounds Extremities: normal range of motion Skin Exam: normal pigmentation. R >L chronic swelling, R ankle chronic ulcer, no sigsn f infection, no TTP, no warmth , no erythema, no signs of cellulitis Neurologic: [employer] II-XII grossly normal Laboratory Tests Test 06/11/18 07:10 White Blood Count 14.7 K/UL (4.8-10.8) #H Red Blood Count 5.11 M/UL (4.70-6.10) Hemoglobin 13.5 G/DL (14.2-18.0) L Hematocrit 43.1 % (42.0-52.0) Mean Corpuscular Volume 84 FL (80-99) Mean Corpuscular Hemoglobin 26.4 PG (27.0-31.0) L Mean Corpuscular Hemoglobin Concent 31.2 G/DL (32.0-36.0) L Red Cell Distribution Width 16.7 % (11.6-14.8) H Platelet Count 281 K/UL (150-450) Mean Platelet Volume 6.6 FL (6.5-10.1) Neutrophils (%) (Auto) % (45.0-75.0) Lymphocytes (%) (Auto) % (20.0-45.0) Monocytes (%) (Auto) % (1.0-10.0) Eosinophils (%) (Auto) % (0.0-3.0) Basophils (%) (Auto) % (0.0-2.0) Differential Total Cells Counted 100 Neutrophils % (Manual) 89 % (45-75) H Lymphocytes % (Manual) 9 % (20-45) L Monocytes % (Manual) 1 % (1-10) Eosinophils % (Manual) 0 % (0-3) Basophils % (Manual) 0 % (0-2) Band Neutrophils 1 % (0-8) Platelet Estimate Adequate Platelet Morphology Normal Sodium Level 139 MMOL/L (136-145) Potassium Level 4.4 MMOL/L (3.5-5.1) Chloride Level 107 MMOL/L (98-107) Carbon Dioxide Level 19 MMOL/L (21-32) L Anion Gap 13 mmol/L (5-15) Blood Urea Nitrogen 36 mg/dL (7-18) H Creatinine 1.6 MG/DL (0.55-1.30) H Estimat Glomerular Filtration Rate 52.4 mL/min (>60) Glucose Level 173 MG/DL (74-106) H Calcium Level 8.3 MG/DL (8.5-10.1) L Current Medications Medications (Trade) Dose Ordered Sig/Aminata Route PRN Reason Start Time Stop Time Status Last Admin Dose Admin Albuterol/ Ipratropium (Albuterol/ Ipratropium) 3 ml Q4H PRN HHN dyspnea 06/09/18 07:30 06/14/18 07:29 06/11/18 09:53 Dextrose (Dextrose 50%) 25 ml STAT PRN IV Hypoglycemia 06/09/18 07:30 07/09/18 07:29 Dextrose (Dextrose 50%) 50 ml STAT PRN IV Hypoglycemia 06/09/18 08:00 07/09/18 07:59 Heparin Sodium (Porcine) (Heparin 5000 units/ml) 5,000 units EVERY 12 HOURS SUBQ 06/09/18 09:00 07/09/18 08:59 06/11/18 08:20 Ketorolac Tromethamine (Toradol 30mg) 30 mg Q8H PRN IV moderate pain 4-6 06/09/18 07:30 06/14/18 07:29 Lorazepam (Ativan 2mg/ml 1ml) 0.5 mg Q4H PRN IV For Anxiety 06/09/18 07:30 06/16/18 07:29 Methylprednisolone Sodium Succinate (Solu-MEDROL) 60 mg EVERY 6 HOURS IV 06/09/18 12:00 07/09/18 11:59 06/11/18 11:39 Mirtazapine (Remeron) 45 mg BEDTIME PO 06/11/18 21:00 07/11/18 20:59 Morphine Sulfate (Morphine Sulfate) 4 mg Q3H PRN IVP Severe Pain (Pain Scale 7-10) 06/10/18 15:30 06/16/18 12:29 06/11/18 11:39 Ondansetron HCl (Zofran) 4 mg Q6H PRN IVP Nausea & Vomiting 06/09/18 07:30 07/09/18 07:29 Pantoprazole (Protonix) 40 mg DAILY ORAL 06/10/18 09:00 07/10/18 08:59 06/11/18 08:15 Promethazine HCl/ Codeine (Phenergan with Codeine) 5 ml Q6H PRN ORAL cough 06/09/18 07:30 07/09/18 07:29 Ranolazine (Ranexa ER 500mg) 1,000 mg Q12HR ORAL 06/11/18 21:00 07/10/18 08:59 Temazepam (Restoril) 15 mg HSPRN PRN ORAL Insomnia 06/09/18 07:30 06/16/18 07:29 Theophylline (Wilfrido-Dur) 100 mg EVERY 12 HOURS ORAL 06/09/18 09:00 07/09/18 08:59 06/11/18 08:15 Jessica Parry M.D. Jun 11, 2018 14:07
--- NOTE | 2018-06-11 15:48 | Internal Med Progress Note ---
Subjective Date of Service: Jun 11, 2018 Physician Name Shantanu Reyna Attending Physician Phil Wright MD Current Medications Medications (Trade) Dose Ordered Sig/Aminata Route PRN Reason Start Time Stop Time Status Last Admin Dose Admin Albuterol/ Ipratropium (Albuterol/ Ipratropium) 3 ml Q4H PRN HHN dyspnea 06/09/18 07:30 06/14/18 07:29 06/11/18 15:45 Dextrose (Dextrose 50%) 25 ml STAT PRN IV Hypoglycemia 06/09/18 07:30 07/09/18 07:29 Dextrose (Dextrose 50%) 50 ml STAT PRN IV Hypoglycemia 06/09/18 08:00 07/09/18 07:59 Heparin Sodium (Porcine) (Heparin 5000 units/ml) 5,000 units EVERY 12 HOURS SUBQ 06/09/18 09:00 07/09/18 08:59 06/11/18 08:20 Ketorolac Tromethamine (Toradol 30mg) 30 mg Q8H PRN IV moderate pain 4-6 06/09/18 07:30 06/14/18 07:29 Lorazepam (Ativan 2mg/ml 1ml) 0.5 mg Q4H PRN IV For Anxiety 06/09/18 07:30 06/16/18 07:29 Methylprednisolone Sodium Succinate (Solu-MEDROL) 60 mg EVERY 6 HOURS IV 06/09/18 12:00 07/09/18 11:59 06/11/18 11:39 Mirtazapine (Remeron) 45 mg BEDTIME PO 06/11/18 21:00 07/11/18 20:59 Morphine Sulfate (Morphine Sulfate) 4 mg Q3H PRN IVP Severe Pain (Pain Scale 7-10) 06/10/18 15:30 06/16/18 12:29 06/11/18 15:11 Ondansetron HCl (Zofran) 4 mg Q6H PRN IVP Nausea & Vomiting 06/09/18 07:30 07/09/18 07:29 Pantoprazole (Protonix) 40 mg DAILY ORAL 06/10/18 09:00 07/10/18 08:59 06/11/18 08:15 Promethazine HCl/ Codeine (Phenergan with Codeine) 5 ml Q6H PRN ORAL cough 06/09/18 07:30 07/09/18 07:29 Ranolazine (Ranexa ER 500mg) 1,000 mg Q12HR ORAL 06/11/18 21:00 07/10/18 08:59 Temazepam (Restoril) 15 mg HSPRN PRN ORAL Insomnia 06/09/18 07:30 06/16/18 07:29 Theophylline (Wilfrido-Dur) 100 mg EVERY 12 HOURS ORAL 06/09/18 09:00 07/09/18 08:59 06/11/18 08:15 Allergies: Coded Allergies: EGG (Verified Allergy, Unknown, 09/22/15) MEPERIDINE (Verified Allergy, Unknown, 12/21/10) NITROGLYCERIN (Verified Allergy, Unknown, hives, 02/18/17) ROS Limited/Unobtainable: No Constitutional: Reports: no symptoms HEENT: Reports: no symptoms Cardiovascular: Reports: no symptoms Respiratory: Reports: no symptoms Gastrointestinal/Abdominal: Reports: no symptoms Genitourinary: Reports: no symptoms 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: Reports: no symptoms Subjective 67 YO M admitted because he did not receive his medication on discharge. Cover for [facility]fred-Dr Wright. Objective Last Vital Signs Date Time Temp Pulse Resp B/P (MAP) Pulse Ox O2 Delivery O2 Flow Rate FiO2 06/11/18 15:11 97.9 06/11/18 12:00 123 06/11/18 12:00 20 144/78 (100) 100 06/11/18 10:02 Room Air 21 Laboratory Tests Test 06/11/18 07:10 White Blood Count 14.7 K/UL (4.8-10.8) #H Red Blood Count 5.11 M/UL (4.70-6.10) Hemoglobin 13.5 G/DL (14.2-18.0) L Hematocrit 43.1 % (42.0-52.0) Mean Corpuscular Volume 84 FL (80-99) Mean Corpuscular Hemoglobin 26.4 PG (27.0-31.0) L Mean Corpuscular Hemoglobin Concent 31.2 G/DL (32.0-36.0) L Red Cell Distribution Width 16.7 % (11.6-14.8) H Platelet Count 281 K/UL (150-450) Mean Platelet Volume 6.6 FL (6.5-10.1) Neutrophils (%) (Auto) % (45.0-75.0) Lymphocytes (%) (Auto) % (20.0-45.0) Monocytes (%) (Auto) % (1.0-10.0) Eosinophils (%) (Auto) % (0.0-3.0) Basophils (%) (Auto) % (0.0-2.0) Differential Total Cells Counted 100 Neutrophils % (Manual) 89 % (45-75) H Lymphocytes % (Manual) 9 % (20-45) L Monocytes % (Manual) 1 % (1-10) Eosinophils % (Manual) 0 % (0-3) Basophils % (Manual) 0 % (0-2) Band Neutrophils 1 % (0-8) Platelet Estimate Adequate Platelet Morphology Normal Sodium Level 139 MMOL/L (136-145) Potassium Level 4.4 MMOL/L (3.5-5.1) Chloride Level 107 MMOL/L (98-107) Carbon Dioxide Level 19 MMOL/L (21-32) L Anion Gap 13 mmol/L (5-15) Blood Urea Nitrogen 36 mg/dL (7-18) H Creatinine 1.6 MG/DL (0.55-1.30) H Estimat Glomerular Filtration Rate 52.4 mL/min (>60) Glucose Level 173 MG/DL (74-106) H Calcium Level 8.3 MG/DL (8.5-10.1) L Intake and Output 06/10/18 06/11/18 19:00 07:00 Intake Total 1500 ml 200 ml Output Total 600 ml 250 ml Balance 900 ml -50 ml Intake Oral 200 ml Other 1500 ml Output Urine Total 600 ml 250 ml Objective General Appearance: mild distress, cachetic, thin EENT: PERRL/EOMI, normal ENT inspection, TMs normal Neck: non-tender, normal alignment, supple, normal inspection Cardiovascular: normal peripheral pulses, normal rate, regular rhythm, no gallop/murmur, no JVD Respiratory/Chest: chest wall non-tender, lungs clear, normal breath sounds, no respiratory distress, no accessory muscle use Abdomen: normal bowel sounds, non tender, soft, no organomegaly, no mass Extremities: normal range of motion Neurologic: [place] II-XII grossly normal Skin: normal pigmentation, warm/dry Assessment/Plan Problem List: (1) COPD exacerbation (2) Cellulitis of right ankle Assessment & Plan: Continue zosyn (3) HTN (hypertension) (4) CAD (coronary artery disease) Assessment & Plan: See cardiology note. (5) Ulcer of right lower leg Assessment/Plan Discharge plan: Patient claims he did not receive medication on discharge. Patient last on Hospice until 05/26/18. Hospice faxed list of medication on -list in chart. Patient not accepted by hospice-see case management note. D/ C home on 06/13/18 with home health Shantanu Reyna MD Jun 11, 2018 15:48
[2018-06-11 16:00] VITALS: BP 148/90
--- NOTE | 2018-06-11 17:19 | Cardiology Report ---
APPROVED REPORT EKG Measurement Heart [id number] Sinus tachycardia Right atrial enlargement Septal infarct, age undetermined Abnormal ECG
[2018-06-11 20:00] VITALS: BP 120/73
[2018-06-12] VITALS: BP 112/80
[2018-06-12 04:00] VITALS: BP 155/94
[2018-06-12] MEDS: Morphine Sulfate 4mg/ml Inj IVP PRN ×4 (04:49→14:52)
[2018-06-12] MEDS: Solu-MEDROL 125mg Inj IV SCH ×2 (06:26)
[2018-06-12 07:38] LABS: BASOPHILS % (AUTO) 0.5 % (0.0-2.0); LYMPHOCYTES % (AUTO) 9.1 % (20.0-45.0); MEAN CORPUSCULAR VOLUME 84 FL (80-99); MONOCYTES % (AUTO) 6.8 % (1.0-10.0); NEUTROPHILS % (AUTO) 83.5 % (45.0-75.0); PLATELET COUNT 277 K/UL (150-450); RED BLOOD COUNT 4.87 M/UL (4.70-6.10); RED CELL DISTRIBUTION WIDTH 16.8 % (11.6-14.8); WHITE BLOOD COUNT 11.9 K/UL (4.8-10.8)
[2018-06-12 08:00] VITALS: BP 166/99
[2018-06-12 08:03] LABS: ANION GAP 9 mmol/L (5-15); BLOOD UREA NITROGEN 37 mg/dL (7-18); CALCIUM 8.2 MG/DL (8.5-10.1); CARBON DIOXIDE 22 MMOL/L (21-32); CHLORIDE 110 MMOL/L (98-107); CREATININE 1.9 MG/DL (0.55-1.30); POTASSIUM 4.4 MMOL/L (3.5-5.1); SODIUM 141 MMOL/L (136-145)
[2018-06-12] MEDS: Theophylline ER 100mg ORAL SCH (08:40)
[2018-06-12] MEDS: Ranolazine 500mg tab ORAL SCH (08:40)
[2018-06-12] MEDS: Heparin 5000 units/ml inj SUBQ SCH ×2 (08:41→08:51)
[2018-06-12] MEDS ORDERED: Tubing IV Secondary IV ONE (09:44)
[2018-06-12] MEDS ORDERED: NS 275ml ONE (09:44)
[2018-06-12] MEDS: Albuterol/Ipratropium 3ml neb HHN PRN (10:22)
--- NOTE | 2018-06-12 10:41 | Infectious Diseases Prog Note ---
Assessment/Plan Assessment/Plan Abx: Zosyn 06/09- Assessment: COPD exacerbation; improving -CXR: Lungs are hyperexpanded Afebrile -Leukocytosis; improving - due to high dose steroids Recurrent Leg cellulitis, s/p Rx- at present no signs of cellulitis -R ankle cellulitis early 05/2018, s/p Rx -B/l leg cellulitis 03/2018, s/p Rx Chronic R>L edema R Ankle chronic ulcer- healing, no signs of infection -R ankle xray 05/31/2018: Severe post fracture deformity of the ankle as described above. No significant change. -R foot xray 03/2018: No acute injury identified. Abnormal fifth MPJ joint which may be on the basis of previous surgery/trauma or old erosive process. Osteoporosis -a. duplex: A mild (10-30%) stenosis is seen in the mid superficial femoral artery. There is no evidence of occlusion within this segment. HTN severe malnutrition MDD tobacco abuse seizure disorder emphysema DM2 CAD s/p CABG COPD -recent exacerbation requiring admission 02/2018 bedbound Plan: -Continue to monitor off abx -06/10 SP Zosyn #2 -06/03 SP Keflex #1 -06/02 SP Ancef #6 -05/16 SP Ancef # 5 -05/12 SP Cefepime and Zosyn x1 -5/3 SP PO Levaquin #3 -03/23/18 SP Zosyn #2 -f/u cx -Monitor CBC/CMP, temperatures -wound care per hosp protocol -Consider Gabapentin for neuropathic pain Thank you for this consultation. Will continue to follow along with you. Discussed with RN. Subjective Allergies: Coded Allergies: EGG (Verified Allergy, Unknown, 09/22/15) MEPERIDINE (Verified Allergy, Unknown, 12/21/10) NITROGLYCERIN (Verified Allergy, Unknown, hives, 02/18/17) Subjective afebrile leukocytosis improving Cr increasing off abx Objective Vital Signs Last 24 Hour Vital Signs Date Time Temp Pulse Resp B/P (MAP) Pulse Ox O2 Delivery O2 Flow Rate FiO2 06/12/18 10:23 118 20 99 Room Air 21 06/12/18 10:18 118 18 Room Air 21 06/12/18 09:10 99.1 06/12/18 09:00 Room Air 06/12/18 08:40 99.1 06/12/18 08:00 97.7 110 20 166/99 (121) 97 97.7 06/12/18 08:00 115 06/12/18 07:58 108 18 Room Air 21 06/12/18 04:00 98 06/12/18 04:00 99.1 118 19 155/94 (114) 98 99.1 06/12/18 00:00 114 06/12/18 00:00 98.1 112 18 112/80 (91) 97 98.1 06/11/18 21:00 Room Air 06/11/18 20:00 98.8 108 18 120/73 (89) 98 98.8 06/11/18 20:00 101 06/11/18 19:29 98 18 Room Air 21 06/11/18 18:11 97.6 06/11/18 16:00 97.6 117 20 148/90 (109) 100 97.6 06/11/18 16:00 113 06/11/18 15:53 100 20 100 Room Air 21 06/11/18 15:45 107 20 98 Room Air 21 06/11/18 15:11 97.9 06/11/18 12:00 123 06/11/18 12:00 97.9 126 20 144/78 (100) 100 97.9 06/11/18 11:39 97.9 Height (Feet): 6 Height (Inches): 1.00 Weight (Pounds): 126 Objective General Appearance: no apparent distress Lines, tubes and drains: peripheral HEENT: normocephalic Neck: non-tender Respiratory/Chest: chest wall non-tender, accessory muscle use, expiratory wheezing Cardiovascular/Chest: normal peripheral pulses Abdomen: normal bowel sounds Extremities: normal range of motion Skin Exam: normal pigmentation. 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 II-XII grossly normal Laboratory Tests Test 06/12/18 06:50 White Blood Count 11.9 K/UL (4.8-10.8) H Red Blood Count 4.87 M/UL (4.70-6.10) Hemoglobin 13.0 G/DL (14.2-18.0) L Hematocrit 41.0 % (42.0-52.0) L Mean Corpuscular Volume 84 FL (80-99) Mean Corpuscular Hemoglobin 26.8 PG (27.0-31.0) L Mean Corpuscular Hemoglobin Concent 31.8 G/DL (32.0-36.0) L Red Cell Distribution Width 16.8 % (11.6-14.8) H Platelet Count 277 K/UL (150-450) Mean Platelet Volume 6.8 FL (6.5-10.1) Neutrophils (%) (Auto) 83.5 % (45.0-75.0) H Lymphocytes (%) (Auto) 9.1 % (20.0-45.0) L Monocytes (%) (Auto) 6.8 % (1.0-10.0) Eosinophils (%) (Auto) 0.0 % (0.0-3.0) Basophils (%) (Auto) 0.5 % (0.0-2.0) Sodium Level 141 MMOL/L (136-145) Potassium Level 4.4 MMOL/L (3.5-5.1) Chloride Level 110 MMOL/L (98-107) H Carbon Dioxide Level 22 MMOL/L (21-32) Anion Gap 9 mmol/L (5-15) Blood Urea Nitrogen 37 mg/dL (7-18) H Creatinine 1.9 MG/DL (0.55-1.30) H Estimat Glomerular Filtration Rate 42.9 mL/min (>60) Glucose Level 106 MG/DL (74-106) Calcium Level 8.2 MG/DL (8.5-10.1) L Current Medications Medications (Trade) Dose Ordered Sig/Aminata Route PRN Reason Start Time Stop Time Status Last Admin Dose Admin Albuterol/ Ipratropium (Albuterol/ Ipratropium) 3 ml Q4H PRN HHN dyspnea 06/09/18 07:30 06/14/18 07:29 06/12/18 10:22 Dextrose (Dextrose 50%) 25 ml STAT PRN IV Hypoglycemia 06/09/18 07:30 07/09/18 07:29 Dextrose (Dextrose 50%) 50 ml STAT PRN IV Hypoglycemia 06/09/18 08:00 07/09/18 07:59 Heparin Sodium (Porcine) (Heparin 5000 units/ml) 5,000 units EVERY 12 HOURS SUBQ 06/09/18 09:00 07/09/18 08:59 06/11/18 08:20 Ketorolac Tromethamine (Toradol 30mg) 30 mg Q8H PRN IV moderate pain 4-6 06/09/18 07:30 06/14/18 07:29 Lorazepam (Ativan 2mg/ml 1ml) 0.5 mg Q4H PRN IV For Anxiety 06/09/18 07:30 06/16/18 07:29 Methylprednisolone Sodium Succinate (Solu-MEDROL) 60 mg EVERY 6 HOURS IV 06/09/18 12:00 07/09/18 11:59 06/12/18 06:26 Mirtazapine (Remeron) 45 mg BEDTIME PO 06/11/18 21:00 07/11/18 20:59 06/11/18 21:01 Morphine Sulfate (Morphine Sulfate) 4 mg Q3H PRN IVP Severe Pain (Pain Scale 7-10) 06/10/18 15:30 06/16/18 12:29 06/12/18 08:40 Ondansetron HCl (Zofran) 4 mg Q6H PRN IVP Nausea & Vomiting 06/09/18 07:30 07/09/18 07:29 Pantoprazole (Protonix) 40 mg DAILY ORAL 06/10/18 09:00 07/10/18 08:59 06/12/18 08:40 Promethazine HCl/ Codeine (Phenergan with Codeine) 5 ml Q6H PRN ORAL cough 06/09/18 07:30 07/09/18 07:29 Ranolazine (Ranexa ER 500mg) 1,000 mg Q12HR ORAL 06/11/18 21:00 07/10/18 08:59 06/12/18 08:40 Temazepam (Restoril) 15 mg HSPRN PRN ORAL Insomnia 06/09/18 07:30 06/16/18 07:29 Theophylline (Wilfrido-Dur) 100 mg EVERY 12 HOURS ORAL 06/09/18 09:00 07/09/18 08:59 06/12/18 08:40 Jessica Parry M.D. Jun 12, 2018 10:41
[2018-06-12] MEDS ORDERED: Levalbuterol Inh UD 1.25mg/0.5ml HHN PRN (11:00)
--- NOTE | 2018-06-12 11:36 | Pulmonology Progress Note ---
Assessment/Plan Problems: (1) Acute encephalopathy (2) Emphysema lung (3) Nonhealing ulcer of right lower extremity (4) Hx of CABG (5) HTN (hypertension) Assessment/Plan still tachycardic, switch duoneb to Xopennex taper steroids d/w president & ceo feeling better now had chest pain earlier wound care symptomatic treatment dc planning, pt might need placement Subjective ROS Limited/Unobtainable: No Constitutional: Reports: no symptoms HEENT: Repors: no symptoms Respiratory: Reports: no symptoms Allergies: Coded Allergies: EGG (Verified Allergy, Unknown, 09/22/15) MEPERIDINE (Verified Allergy, Unknown, 12/21/10) NITROGLYCERIN (Verified Allergy, Unknown, hives, 02/18/17) Objective Last 24 Hour Vital Signs Date Time Temp Pulse Resp B/P (MAP) Pulse Ox O2 Delivery O2 Flow Rate FiO2 06/12/18 10:23 118 20 99 Room Air 21 06/12/18 10:18 118 18 Room Air 21 06/12/18 09:10 99.1 06/12/18 09:00 Room Air 06/12/18 08:40 99.1 06/12/18 08:00 97.7 110 20 166/99 (121) 97 97.7 06/12/18 08:00 115 06/12/18 07:58 108 18 Room Air 21 06/12/18 04:00 98 06/12/18 04:00 99.1 118 19 155/94 (114) 98 99.1 06/12/18 00:00 114 06/12/18 00:00 98.1 112 18 112/80 (91) 97 98.1 06/11/18 21:00 Room Air 06/11/18 20:00 98.8 108 18 120/73 (89) 98 98.8 06/11/18 20:00 101 06/11/18 19:29 98 18 Room Air 21 06/11/18 18:11 97.6 06/11/18 16:00 97.6 117 20 148/90 (109) 100 97.6 06/11/18 16:00 113 06/11/18 15:53 100 20 100 Room Air 21 06/11/18 15:45 107 20 98 Room Air 21 06/11/18 15:11 97.9 7/19/18 12:00 123 06/11/18 12:00 97.9 126 20 144/78 (100) 100 97.9 06/11/18 11:39 97.9 Intake and Output 06/11/18 06/12/18 19:00 07:00 Intake Total 520 ml 300 ml Output Total 200 ml Balance 320 ml 300 ml Intake Oral 520 ml 300 ml Output Urine Total 200 ml # Voids 3 General Appearance: cachetic HEENT: normocephalic, atraumatic Respiratory/Chest: chest wall non-tender, lungs clear Cardiovascular: normal peripheral pulses, normal rate Genitourinary: normal external genitalia Extremities: no cyanosis Skin: no rash 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 Laboratory Tests 06/12/18 06:50: White Blood Count 11.9H, Red Blood Count 4.87, Hemoglobin 13.0L, Hematocrit 41.0L, Mean Corpuscular Volume 84, Mean Corpuscular Hemoglobin 26.8L, Mean Corpuscular Hemoglobin Concent 31.8L, Red Cell Distribution Width 16.8H, Platelet Count 277, Mean Platelet Volume 6.8, Neutrophils (%) (Auto) 83.5H, Lymphocytes (%) (Auto) 9.1L, Monocytes (%) (Auto) 6.8, Eosinophils (%) (Auto) 0.0, Basophils (%) (Auto) 0.5, Sodium Level 141, Potassium Level 4.4, Chloride Level 110H, Carbon Dioxide Level 22, Anion Gap 9, Blood Urea Nitrogen 37H, Creatinine 1.9H, Estimat Glomerular Filtration Rate 42.9, Glucose Level 106, Calcium Level 8.2L Current Medications Medications (Trade) Dose Ordered Sig/Aminata Route PRN Reason Start Time Stop Time Status Last Admin Dose Admin Dextrose (Dextrose 50%) 25 ml STAT PRN IV Hypoglycemia 06/09/18 07:30 07/09/18 07:29 Dextrose (Dextrose 50%) 50 ml STAT PRN IV Hypoglycemia 06/09/18 08:00 07/09/18 07:59 Heparin Sodium (Porcine) (Heparin 5000 units/ml) 5,000 units EVERY 12 HOURS SUBQ 06/09/18 09:00 07/09/18 08:59 06/11/18 08:20 Ketorolac Tromethamine (Toradol 30mg) 30 mg Q8H PRN IV moderate pain 4-6 06/09/18 07:30 06/14/18 07:29 Levalbuterol HCl (Xopenex) 1.25 mg Q6H PRN HHN Bronchospasm 06/12/18 11:00 06/17/18 10:59 Lorazepam (Ativan 2mg/ml 1ml) 0.5 mg Q4H PRN IV For Anxiety 06/09/18 07:30 06/16/18 07:29 Methylprednisolone Sodium Succinate (Solu-MEDROL) 60 mg EVERY 6 HOURS IV 06/09/18 12:00 07/09/18 11:59 06/12/18 06:26 Mirtazapine (Remeron) 45 mg BEDTIME PO 06/11/18 21:00 07/11/18 20:59 06/11/18 21:01 Morphine Sulfate (Morphine Sulfate) 4 mg Q3H PRN IVP Severe Pain (Pain Scale 7-10) 06/10/18 15:30 06/16/18 12:29 06/12/18 08:40 Ondansetron HCl (Zofran) 4 mg Q6H PRN IVP Nausea & Vomiting 06/09/18 07:30 07/09/18 07:29 Pantoprazole (Protonix) 40 mg DAILY ORAL 06/10/18 09:00 07/10/18 08:59 06/12/18 08:40 Promethazine HCl/ Codeine (Phenergan with Codeine) 5 ml Q6H PRN ORAL cough 06/09/18 07:30 07/09/18 07:29 Ranolazine (Ranexa ER 500mg) 1,000 mg Q12HR ORAL 06/11/18 21:00 07/10/18 08:59 06/12/18 08:40 Temazepam (Restoril) 15 mg HSPRN PRN ORAL Insomnia 06/09/18 07:30 06/16/18 07:29 Theophylline (Wilfrido-Dur) 100 mg EVERY 12 HOURS ORAL 06/09/18 09:00 07/09/18 08:59 06/12/18 08:40 Jessie Magana MD Jun 12, 2018 11:36
--- NOTE | 2018-06-12 13:25 | General Progress Note ---
Assessment/Plan Assessment/Plan MDD Anxiety d/o remeron to 30mg po qhs the pt st/ro Subjective Date patient seen: Jun 12, 2018 Allergies: Coded Allergies: EGG (Verified Allergy, Unknown, 09/22/15) MEPERIDINE (Verified Allergy, Unknown, 12/21/10) NITROGLYCERIN (Verified Allergy, Unknown, hives, 02/18/17) Subjective the pt is irritable and anxious he requested to increase the Remeron Objective Last 24 Hour Vital Signs Date Time Temp Pulse Resp B/P (MAP) Pulse Ox O2 Delivery O2 Flow Rate FiO2 06/12/18 12:12 99.1 06/12/18 11:42 99.1 06/12/18 10:23 118 20 99 Room Air 21 06/12/18 10:18 118 18 Room Air 21 06/12/18 09:00 Room Air 06/12/18 08:40 99.1 06/12/18 08:00 97.7 110 20 166/99 (121) 97 97.7 06/12/18 08:00 115 06/12/18 07:58 108 18 Room Air 21 06/12/18 04:00 98 06/12/18 04:00 99.1 118 19 155/94 (114) 98 99.1 06/12/18 00:00 114 06/12/18 00:00 98.1 112 18 112/80 (91) 97 98.1 06/11/18 21:00 Room Air 06/11/18 20:00 98.8 108 18 120/73 (89) 98 98.8 06/11/18 20:00 101 06/11/18 19:29 98 18 Room Air 21 06/11/18 18:11 97.6 06/11/18 16:00 97.6 117 20 148/90 (109) 100 97.6 06/11/18 16:00 113 06/11/18 15:53 100 20 100 Room Air 21 06/11/18 15:45 107 20 98 Room Air 21 06/11/18 15:11 97.9 Intake and Output 06/11/18 06/12/18 19:00 07:00 Intake Total 520 ml 300 ml Output Total 200 ml Balance 320 ml 300 ml Intake Oral 520 ml 300 ml Output Urine Total 200 ml # Voids 3 Laboratory Tests 06/12/18 06:50: White Blood Count 11.9H, Red Blood Count 4.87, Hemoglobin 13.0L, Hematocrit 41.0L, Mean Corpuscular Volume 84, Mean Corpuscular Hemoglobin 26.8L, Mean Corpuscular Hemoglobin Concent 31.8L, Red Cell Distribution Width 16.8H, Platelet Count 277, Mean Platelet Volume 6.8, Neutrophils (%) (Auto) 83.5H, Lymphocytes (%) (Auto) 9.1L, Monocytes (%) (Auto) 6.8, Eosinophils (%) (Auto) 0.0, Basophils (%) (Auto) 0.5, Sodium Level 141, Potassium Level 4.4, Chloride Level 110H, Carbon Dioxide Level 22, Anion Gap 9, Blood Urea Nitrogen 37H, Creatinine 1.9H, Estimat Glomerular Filtration Rate 42.9, Glucose Level 106, Calcium Level 8.2L Height (Feet): 6 Height (Inches): 1.00 Weight (Pounds): 126 Rachael Buckley MD Jun 12, 2018 13:25
--- NOTE | 2018-06-12 15:34 | Internal Med Progress Note ---
Subjective Date of Service: Jun 12, 2018 Physician Name Shantanu Reyna Attending Physician Phil Wright MD Current Medications Medications (Trade) Dose Ordered Sig/Aminata Route PRN Reason Start Time Stop Time Status Last Admin Dose Admin Dextrose (Dextrose 50%) 25 ml STAT PRN IV Hypoglycemia 06/09/18 07:30 07/09/18 07:29 Dextrose (Dextrose 50%) 50 ml STAT PRN IV Hypoglycemia 06/09/18 08:00 07/09/18 07:59 Heparin Sodium (Porcine) (Heparin 5000 units/ml) 5,000 units EVERY 12 HOURS SUBQ 06/09/18 09:00 07/09/18 08:59 06/11/18 08:20 Ketorolac Tromethamine (Toradol 30mg) 30 mg Q8H PRN IV moderate pain 4-6 06/09/18 07:30 06/14/18 07:29 Levalbuterol HCl (Xopenex) 1.25 mg Q6H PRN HHN Bronchospasm 06/12/18 11:00 06/17/18 10:59 Lorazepam (Ativan 2mg/ml 1ml) 0.5 mg Q4H PRN IV For Anxiety 06/09/18 07:30 06/16/18 07:29 Mirtazapine (Remeron) 45 mg BEDTIME PO 06/11/18 21:00 07/11/18 20:59 06/11/18 21:01 Morphine Sulfate (Morphine Sulfate) 4 mg Q3H PRN IVP Severe Pain (Pain Scale 7-10) 06/10/18 15:30 06/16/18 12:29 06/12/18 14:52 Ondansetron HCl (Zofran) 4 mg Q6H PRN IVP Nausea & Vomiting 06/09/18 07:30 07/09/18 07:29 Pantoprazole (Protonix) 40 mg DAILY ORAL 06/10/18 09:00 07/10/18 08:59 06/12/18 08:40 Promethazine HCl/ Codeine (Phenergan with Codeine) 5 ml Q6H PRN ORAL cough 06/09/18 07:30 07/09/18 07:29 Ranolazine (Ranexa ER 500mg) 1,000 mg Q12HR ORAL 06/11/18 21:00 07/10/18 08:59 06/12/18 08:40 Temazepam (Restoril) 15 mg HSPRN PRN ORAL Insomnia 06/09/18 07:30 06/16/18 07:29 Theophylline (Wilfrido-Dur) 100 mg EVERY 12 HOURS ORAL 06/09/18 09:00 07/09/18 08:59 06/12/18 08:40 Allergies: Coded Allergies: EGG (Verified Allergy, Unknown, 09/22/15) MEPERIDINE (Verified Allergy, Unknown, 12/21/10) NITROGLYCERIN (Verified Allergy, Unknown, hives, 02/18/17) ROS Limited/Unobtainable: No Constitutional: Reports: no symptoms HEENT: Reports: no symptoms Cardiovascular: Reports: no symptoms Respiratory: Reports: no symptoms Gastrointestinal/Abdominal: Reports: no symptoms Genitourinary: Reports: no symptoms 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: Reports: no symptoms Subjective 67 YO M admitted because he did not receive his medication on discharge. Cover for Int Med-Dr Wright. Await discharge home Objective Last Vital Signs Date Time Temp Pulse Resp B/P (MAP) Pulse Ox O2 Delivery O2 Flow Rate FiO2 06/12/18 15:22 99.1 06/12/18 12:00 108 06/12/18 10:23 20 99 Room Air 21 06/12/18 08:00 166/99 (121) Laboratory Tests Test 06/12/18 06:50 White Blood Count 11.9 K/UL (4.8-10.8) H Red Blood Count 4.87 M/UL (4.70-6.10) Hemoglobin 13.0 G/DL (14.2-18.0) L Hematocrit 41.0 % (42.0-52.0) L Mean Corpuscular Volume 84 FL (80-99) Mean Corpuscular Hemoglobin 26.8 PG (27.0-31.0) L Mean Corpuscular Hemoglobin Concent 31.8 G/DL (32.0-36.0) L Red Cell Distribution Width 16.8 % (11.6-14.8) H Platelet Count 277 K/UL (150-450) Mean Platelet Volume 6.8 FL (6.5-10.1) Neutrophils (%) (Auto) 83.5 % (45.0-75.0) H Lymphocytes (%) (Auto) 9.1 % (20.0-45.0) L Monocytes (%) (Auto) 6.8 % (1.0-10.0) Eosinophils (%) (Auto) 0.0 % (0.0-3.0) Basophils (%) (Auto) 0.5 % (0.0-2.0) Sodium Level 141 MMOL/L (136-145) Potassium Level 4.4 MMOL/L (3.5-5.1) Chloride Level 110 MMOL/L (98-107) H Carbon Dioxide Level 22 MMOL/L (21-32) Anion Gap 9 mmol/L (5-15) Blood Urea Nitrogen 37 mg/dL (7-18) H Creatinine 1.9 MG/DL (0.55-1.30) H Estimat Glomerular Filtration Rate 42.9 mL/min (>60) Glucose Level 106 MG/DL (74-106) Calcium Level 8.2 MG/DL (8.5-10.1) L Intake and Output 06/11/18 06/12/18 19:00 07:00 Intake Total 520 ml 300 ml Output Total 200 ml Balance 320 ml 300 ml Intake Oral 520 ml 300 ml Output Urine Total 200 ml # Voids 3 Objective General Appearance: mild distress, cachetic, thin EENT: PERRL/EOMI, normal ENT inspection, TMs normal Neck: non-tender, normal alignment, supple, normal inspection Cardiovascular: normal peripheral pulses, normal rate, regular rhythm, no gallop/murmur, no JVD Respiratory/Chest: chest wall non-tender, lungs clear, normal breath sounds, no respiratory distress, no accessory muscle use Abdomen: normal bowel sounds, non tender, soft, no organomegaly, no mass Extremities: normal range of motion 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 (5) Ulcer of right lower leg Assessment/Plan Discharge plan: Patient claims he did not receive medication on discharge. Patient last on Hospice until 05/26/18. Hospice faxed list of medication on -list in chart. Patient not accepted by hospice-see case management note. D/ C home with home health Shantanu Reyna MD Jun 12, 2018 15:34
[2018-06-12] MEDS ORDERED: Sterile Water Irrig 1000ml IRRIG ONE (16:06)
--- NOTE | 2018-06-15 07:45 | Discharge Summary ---
Discharge Summary Discharge Summary _ DATE OF ADMISSION: 06/09/2018 DATE OF DISCHARGE: 06/12/2018 REASON FOR ADMISSION: 67 years old male with past medical history of COPD, hypertension ,coronary artery disease with history of CABG, anxiety, depression, seizure disorder, peripheral arterial disease, diabetes mellitus with chronic ulcer of the right lower extremity( chronic ) , who recently discharged for right lower extremity cellulitis, presented with complaint of chest pain. Chest pain described as substernal pressure-like. Worse with exertion. Upon evaluation vital signs were stable. EKG revealed normal sinus rhythm, no acute ischemic changes. Troponin negative Chest x-ray was compatible with known history of COPD. No evidence of fluid overload. No leukocytosis,stable hemoglobin and hematocrit , renal insufficiency BUN 29 and creatinine 1.6. Patient was given nebulizing treatment. Patient admitted with diagnosis of chest pain, COPD exacerbation, chronic right lower extremity ulcer. CONSULTANTS: rinkman Dr. Winn pulmonary Dr. Magana ID specialist Dr. Reich surgery Dr. Simms psychiatrist [facility] COURSE: Patient admitted to telemetry floor. Pulmonology and cardiology consults were obtained. Supplemental oxygen provided as needed to keep pulse oximetry above 92%. Patient started on IV steroids which gradually tapered. Patient started on nebulizing treatment around the clock and as needed . Albuterol changed to Xopenex due to tachycardia. Trial of theophylline initiated. Antitussive provided as needed. Patient clinically improved. Pulse oximetry stable on room air. Assembler Tester closely followed. Troponin negative. EKG revealed no acute changes. Patient was ruled out for acute MS. Patient declined shortness test. Chest pain resolved. Antiplatelet therapy with Plavix continued. Beta rasta continued. Blood pressure was managed with beta rasta and calcium channel rasta. Pain management provided with nitroglycerin as needed. Ranexa dose increased. DVT and GI prophylaxis provided. Surgeon seen patient for nonhealing ulcer of the right lower extremity. Per surgeon assessment, ulcer improved with wound care since last admission. Patient still had bilateral leg pain but ambulated without difficulty. Surgeon recommended honey gel and foam dressing for wound and continue to monitor. Infectious disease specialist closely followed. Patient with recurrent cellulitis right ankle, status post treatment. Patient had chronic bilateral lower extremity edema and right ankle chronic ulcer without evidence of infection at this time. Infectious disease doctor recommended to keep patient off antibiotics. Psychiatry seen and evaluated patient. Psychiatrist optimized psychiatric medication regimen. Supportive therapy and reality orientation provided. Patient symptomatically improved. Respiratory status improved, no chest pain. Patient was stable for discharge home with home health services to follow for wound care. FINAL DIAGNOSES: COPD exacerbation Emphysema Coronary artery disease with history of CABG Recurrent cellulitis right ankle Nonhealing ulcer right lower extremity Major depression disorder Anxiety disorder DISCHARGE MEDICATIONS: List of medication was provided to patient DISCHARGE INSTRUCTIONS: Patient was discharged home with home health services for wound care. Follow up with primary care provider next week. I have been assigned to dictate discharge summary for this account. I was not involved in the patient's management. Kristine Black NP Jun 15, 2018 07:45
== END 2018-06-12 16:07 | disposition home health service (06) | DRG 140 ==
LOC: EMR 23:00 → 2E 06-09 01:21 → EDBEDREQ 06-09 02:42
DX: J44.1 Chronic obstructive pulmonary disease with (acute) exacerbation (principal); G93.40 Encephalopathy, unspecified; L03.115 Cellulitis of right lower limb; L97.319 Non-pressure chronic ulcer of right ankle with unspecified severity; I25.10 Atherosclerotic heart disease of native coronary artery without angina pectoris; Z95.1 Presence of aortocoronary bypass graft; F32.9 Major depressive disorder, single episode, unspecified; F41.9 Anxiety disorder, unspecified; I10 Essential (primary) hypertension; I25.2 Old myocardial infarction; Z79.02 Long term (current) use of antithrombotics/antiplatelets; Z88.6 Allergy status to analgesic agent; Z88.8 Allergy status to other drugs, medicaments and biological substances; F17.200 Nicotine dependence, unspecified, uncomplicated; G40.909 Epilepsy, unspecified, not intractable, without status epilepticus
CPT/HCPCS: 36415; 71045; 80048; 80053; 82550; 83880; 84484; 85007; 85025; 85610; 85730; 93005; 94640; 94664; 99285; J2405; J7620

== ENCOUNTER 2018-06-19 10:15 | Inpatient (IN) | payer MEDICARE, MEDICAID ==
[~2018-06-19] VITALS: Ht 185.4 cm; Wt 59.0 kg
--- NOTE | 2018-06-19 10:53 | Emergency Room Report ---
History of Present Illness General Chief Complaint: Chest Pain Source: Patient Present Illness HPI 67-year-old male with history of hypertension and high cholesterol, CKD, CHF, COPD reports he's been having midsternal and right parasternal area chest throbbing pain constantly since yesterday, he reports he took Dilaudid for it and it helped, and he reports he cannot take nitroglycerin. He reports he's also had 2 bouts of diarrhea and nausea and vomiting this morning.. He denies fevers, he does report a cough but denies any sputum production or hemoptysis, he also reports both of his legs have been progressively swelling. He cannot think of any other alleviating or exacerbating factors other than the Dilaudid. When asked why he is prescribed Dilaudid, he reports for pain in his chest, However he also suffers from chronic back pain, and I think that is the likely reason he is on Dilaudid. Allergies: Coded Allergies: EGG (Verified Allergy, Unknown, 09/22/15) MEPERIDINE (Verified Allergy, Unknown, 12/21/10) NITROGLYCERIN (Verified Allergy, Unknown, hives, 02/18/17) Patient History Past Medical History: see triage record Reviewed Nursing Documentation: PMH: Agreed; PSxH: Agreed Nursing Documentation-PMH Hx Cardiac Problems: Yes - RI with stents placed, CHF, Edema, Stent x2, CABG X3 Hx Hypertension: Yes Hx Pacemaker: No Hx Asthma: No Hx COPD: Yes Hx Diabetes: No Hx Cancer: No Hx Gastrointestinal Problems: Yes - Stomach Ulcer, Hep C Hx Dialysis: No - kidney problems Hx Neurological Problems: Yes - Seizures, HTN, Weakness Hx Cerebrovascular Accident: No Hx Transient Ischemic Attacks: No Hx Alzheimer's Disease: No Hx Encephalitis: No Hx Seizures: Yes Hx Epilepsy: No Hx Multiple Sclerosis: No Hx Cerebral Palsy: No Hx Amyotrophic Lat Sclerosis: No Hx Guillian-Lemhi Syndrome: No Hx Paralysis: No Hx Peripheral Neuropathy: No Hx Spinal Cord Injury: No Hx Head Trauma: No Hx Traumatic Brain Injury: No Hx Memory Loss: No Hx Concentration Difficulty: No Hx Speech Problem: No Hx Tremors: Yes Hx Vertigo: No Hx Dizziness: No Hx Syncope: Yes Hx Headaches: Yes Hx Aphasia: No Hx Dysphasia: Yes Hx Numbness: No Hx Weakness: Yes Hx Fatigue: No Hx Neurologic Surgery: No Hx Brain Shunt: No Review of Systems All Other Systems: negative except mentioned in HPI Physical Exam Vital Signs Date Time Temp Pulse Resp B/P (MAP) Pulse Ox O2 Delivery O2 Flow Rate FiO2 06/19/18 10:21 98.2 87 18 170/82 98 Room Air 98.2 Sp02 EP Interpretation: reviewed, normal General Appearance: no apparent distress, alert, non-toxic Head: normocephalic Eyes: bilateral eye normal inspection, bilateral eye PERRL, bilateral eye EOMI ENT: normal ENT inspection, hearing grossly normal, normal pharynx, no angioedema, normal voice, moist mucus membranes Neck: normal inspection, full range of motion, supple, supple/symm/no masses Respiratory: chest non-tender, lungs clear, normal breath sounds, chest symmetrical, palpation of chest normal Cardiovascular #1: normal peripheral pulses, regular rate, rhythm, edema - 1+ bilateral lower extremity edema to level of distal tibia Cardiovascular #2: 2+ radial (R), 2+ radial (L) Gastrointestinal: normal inspection, non tender, soft, no mass, no guarding, no rebound Rectal: deferred Genitourinary: normal inspection, no CVA tenderness Musculoskeletal: back normal, gait/station normal, normal range of motion, non- tender, no calf tenderness, Donato's Sign negative Neurologic: alert, responsive, insurance administrator III-XII nml as tested, motor strength/tone normal, sensory intact, speech normal Psychiatric: judgement/insight normal, memory normal, mood/affect normal, no suicidal/homicidal ideation Skin: normal color, no rash, warm/dry, normal turgor Lymphatic: no adenopathy Medical Decision Making Diagnostic Impression: Primary Impression: Chest pain ER Course Patient given aspirin, but refused nitroglycerin because reports he has now allergy, was not given Dilaudid which he requested. He was given form milligrams of morphine, as well as 5 mg of albuterol nebulizer treatment. His labs were unremarkable, including a negatived-dimer, he did have an elevated proBNP but negative troponin. Chest x-ray did not reveal evidence for pulmonary edema nor early CHF. I will admit the patient for further evaluation of possible ACS, given the ongoing chest pain. His EKG does have T-wave inversions in aVL, V1 through V2, those changes were seen in aVL in the past, but I was unable to view all the previous EKGs, and the ones in the right precordium seem more prominent. I do not suspect he is having an active RI however, and I will not heparinize the patient. EKG Diagnostic Results EKG Time: 10:27 EP Interpretation: No ST segment changes and no T-wave inversions other than in leads aVL, V1 Rate: normal Rhythm: NSR ST Segments: no acute changes ASA given to the pt in ED: Yes Rhythm Strip Diag. Results Rhythm Strip Time: 10:53 EP Interpretation: yes Rate: 83 Rhythm: NSR, no PVC's, no ectopy Chest X-Ray Diagnostic Results Chest X-Ray Diagnostic Results : Chest X-Ray Ordered: Yes # of Views/Limited/Complete: 1 View Indication: Chest Pain EP Interpretation: Yes Interpretation: no consolidation, no effusion, no pneumothorax, no acute cardiopulmonary disease Impression: No acute disease Electronically Signed by: Wade Chung MD Last Vital Signs Date Time Temp Pulse Resp B/P (MAP) Pulse Ox O2 Delivery O2 Flow Rate FiO2 06/19/18 10:21 98.2 87 18 170/82 98 Room Air 98.2 Disposition: ADMITTED INPATIENT Condition: Stable Signed Out To: Dr. Schreiber agreed to admit. WADE CHUNG M.D Jun 19, 2018 10:53
[2018-06-19] MEDS ORDERED: GI Cocktail 50ml ORAL ONE (11:00)
[2018-06-19] MEDS ORDERED: Aspirin Baby 81mg ORAL ONE (11:00)
[2018-06-19 11:34] VITALS: BP 165/78
--- NOTE | 2018-06-19 11:38 | Diagnostic Imaging Report ---
Indication: Chest pain Technique: One view of the chest Comparison: 06/08/2018 Findings: No acute infiltrates, effusions, or congestion. Tortuous calcified aorta. Normal heart size. Upper mediastinum unremarkable. Again demonstrated are median sternotomy sutures. Findings are unchanged Impression: No acute process.
[2018-06-19 11:43] LABS: EOSINOPHILS % (AUTO) 2.5 % (0.0-3.0); HEMATOCRIT 46.6 % (42.0-52.0); HEMOGLOBIN 14.1 G/DL (14.2-18.0); LYMPHOCYTES % (AUTO) 20.1 % (20.0-45.0); MEAN CORPUSCULAR VOLUME 83 FL (80-99); MONOCYTES % (AUTO) 8.7 % (1.0-10.0); NEUTROPHILS % (AUTO) 66.7 % (45.0-75.0); PLATELET COUNT 249 K/UL (150-450); RED BLOOD COUNT 5.59 M/UL (4.70-6.10); RED CELL DISTRIBUTION WIDTH 16.1 % (11.6-14.8); WHITE BLOOD COUNT 10.6 K/UL (4.8-10.8)
[2018-06-19] MEDS ORDERED: Albuterol ud Inhalation HHN ONE (11:45)
[2018-06-19] MEDS ORDERED: Morphine Sulfate 4mg/ml Inj (IV USE ONLY) IVP ONE (12:00)
[2018-06-19 13:06] LABS: ANION GAP 10 mmol/L (5-15); BLOOD UREA NITROGEN 24 mg/dL (7-18); CALCIUM 8.7 MG/DL (8.5-10.1); CARBON DIOXIDE 26 MMOL/L (21-32); CHLORIDE 103 MMOL/L (98-107); CREATININE 1.4 MG/DL (0.55-1.30); POTASSIUM 4.7 MMOL/L (3.5-5.1); SODIUM 139 MMOL/L (136-145)
[2018-06-19 13:16] LABS: ALANINE AMINOTRANSFERASE 13 U/L (12-78); ALBUMIN/GLOBULIN RATIO 0.6 (1.0-2.7); ALKALINE PHOSPHATASE 100 U/L (46-116); ASPARTATE AMINO TRANSFERASE 13 U/L (15-37); BILIRUBIN,TOTAL 0.4 MG/DL (0.2-1.0)
[2018-06-19] MEDS ORDERED: Miralax 17gm pkt ORAL PRN (14:00)
[2018-06-19] MEDS ORDERED: Morphine Sulfate 2mg/ml Inj(IV/IM USE ONLY) IVP PRN (14:00)
[2018-06-19] MEDS ORDERED: Albuterol/Ipratropium 3ml neb HHN PRN (14:00)
[2018-06-19 15:13] VITALS: BP 168/93
[2018-06-19] MEDS: Morphine Sulfate 4mg/ml Inj (IV USE ONLY) IVP PRN ×2 (16:11→20:08)
[2018-06-19] MEDS: Cefepime HCl 2 GM in D5W 110 ML IV SCH (16:16)
--- NOTE | 2018-06-19 16:20 | History & Physical ---
History and Physical History & Physicial Dictated for Int Med-Dr Wright no. [id number] Shantanu Reyna MD Jun 19, 2018 16:20
[2018-06-19] MEDS ORDERED: Vancomycin 1 GM in D5W 275 ML IVPB SCH (17:00)
--- NOTE | 2018-06-19 17:15 | History and Physical Report ---
DATE OF ADMISSION: 06/19/2018 CHIEF COMPLAINT: The patient is a 67-year-old male, presents with chief complaint of chest pain and seizure. HISTORY OF PRESENT ILLNESS: The patient was admitted to [facility] from 06/09/2018 through 06/12/2018. Please see history and physical and discharge summary dictated at that time. The patient states he was on his way to his primary care physician's office this morning. The patient began to experience chest pain. Pain is located substernally. The patient also states he had a seizure. The patient's brought him to the emergency room at [facility]. The patient is admitted for breakthrough seizure and chest pain. PAST MEDICAL HISTORY: Significant for 1. Hypertension. 2. Coronary artery disease. 3. History of myocardial infarction x2. 4. Chronic obstructive pulmonary disease. 5. Seizure disorder. PAST SURGICAL HISTORY: Significant for 1. Coronary artery bypass graft in 2009 and again in 2010. 2. Coronary angioplasty with stent placement x2. CURRENT MEDICATIONS: 1. Albuterol metered-dose inhaler two puffs p.o. q.i.d. p.r.n. 2. Amlodipine 10 mg p.o. daily. 3. Plavix 75 mg p.o. daily. 4. Dilaudid 2 mg p.o. q.4 h. p.r.n. 5. Keppra 500 mg p.o. twice daily. 6. Metoprolol 50 mg p.o. twice daily. 7. Remeron 15 mg p.o. at bedtime. 8. Zantac 150 mg p.o. twice daily. 9. Wilfrido-Dur 100 mg p.o. twice daily. ALLERGIES: 1. Demerol. 2. Nitroglycerin. 3. Eggs. SOCIAL HISTORY: The patient is , however he lives with his ex-. The patient admits to tobacco use of one-quarter pack per day. The patient previously smoked one pack per day. The patient denies alcohol use. REVIEW OF SYSTEMS: CONSTITUTIONAL: The patient denies weight loss or weight gain. The patient denies fevers or chills. HEENT: The patient denies ear or throat pain. The patient denies headache. CARDIOVASCULAR: The patient complains of chest pain as above. The patient denies palpitations. ABDOMEN: The patient denies nausea, vomiting, diarrhea or constipation. GENITOURINARY: The patient denies dysuria or increased frequency urination. NEUROMUSCULAR: The patient complains of seizure as above. The patient denies generalized weakness. PHYSICAL EXAMINATION: GENERAL: The patient is well developed and well nourished thin-appearing male, in no apparent distress. VITAL SIGNS: Temperature 98.2 degrees, respirations 18, pulse 87 and blood pressure 170/82. HEENT: Eyes, pupils equal and responsive to light and accommodation. Extraocular movements are intact. NECK: Supple without lymphadenopathy. CHEST: Lungs are clear to auscultation bilaterally without wheezes or rales. CARDIOVASCULAR: Regular rate. S1 and S2 normal without murmurs, rubs, or gallops. ABDOMEN: Soft, nontender, and nondistended. Positive bowel sounds. No evidence of hepatosplenomegaly. Currently, no rebound or guarding noted. EXTREMITIES: Negative for clubbing, cyanosis, or edema. RECTAL: Refused. GENITAL: Refused. NEUROLOGIC: Cranial nerves II through XII are grossly intact without focal deficits. Motor strength is 5/5 bilaterally. Deep tendon reflexes are 2+ plantar. LABORATORY AND DIAGNOSTIC DATA: WBC 10.6, hemoglobin 14.1, hematocrit 46.6 and platelets 249,000. Sodium 138, potassium 4.7, chloride 103, CO2 23, BUN 24, creatinine 1.4 and glucose 97. Troponin 0.0. BNP elevated at 987. ASSESSMENT: This is a 67-year-old male 1. Breakthrough seizure. 2. Chest pain. 3. Coronary artery disease. 4. Chronic obstructive pulmonary disease. 5. Hypertension. 6. Seizure disorder. TREATMENT: 1. Chest pain/coronary artery disease. A Cardiology consultation has been obtained with Dr. Winn. We will follow recommendation of Cardiology. The patient has been started empirically on Plavix. 2. Chronic obstructive pulmonary disease. A Pulmonary consultation has been obtained with Dr. Jessie Magana. We will follow recommendations of Pulmonary. 3. Hypertension. Continue amlodipine as above. 4. Seizure disorder. Continue Keppra as above. Shantanu Reyna M.D. DR: FRANCISCO J JOB#: [id number] CC:
[2018-06-19] MEDS: Metoprolol Succinate XL 50mg tab ORAL SCH (17:53)
[2018-06-19 20:00] VITALS: BP 152/84
--- NOTE | 2018-06-19 20:07 | Consultation ---
History of Present Illness General Date patient seen: Jun 19, 2018 Chief Complaint: Chest Pain Present Illness HPI The patient states he was on his way to his primary care physician's office this morning. The patient began to experience chest pain. Pain is located substernally 8/10 intensity, worse with exertion, lasted a few minutes. He was placed on ranexa at the time of his last admission. He does not want stress test. Troponin normal Allergies: Coded Allergies: EGG (Verified Allergy, Unknown, 09/22/15) MEPERIDINE (Verified Allergy, Unknown, 12/21/10) NITROGLYCERIN (Verified Allergy, Unknown, hives, 02/18/17) Medication History Scheduled Amlodipine Besylate* (Amlodipine Besylate*), 10 MG ORAL DAILY, (Reported) Cephalexin* (Keflex*), 500 MG ORAL EVERY 8 HOURS, (Reported) Clopidogrel Bisulfate* (Plavix*), 75 MG ORAL DAILY, (Reported) Hydromorphone Hcl (Dilaudid), 2 MG PO EVERY 4 HOURS Levetiracetam (Keppra), 500 MG ORAL DAILY, (Reported) Metoprolol Succinate* (Metoprolol Succinate*), 50 MG ORAL BID, (Reported) Mirtazapine* (Remeron*), 15 MG ORAL BEDTIME, (Reported) Ranitidine Hcl* (Zantac*), 150 MG ORAL Q12HR Theophylline (Theodur*), 100 MG ORAL EVERY 12 HOURS Scheduled PRN Albuterol Sulfate (Ventolin Hfa), 1 PUFF INH EVERY 6 HOURS PRN Docusate Sodium* (Colace*), 100 MG ORAL DAILY PRN for Constipation, (Reported) Ondansetron Hcl* (Zofran*), 8 MG ORAL Q6H PRN for Nausea & Vomiting, (Reported) Patient History History Provided By: Patient Healthcare decision maker Resuscitation status Advanced Directive on File No Review of Systems Constitutional: Reports: no symptoms Eye: Reports: no symptoms ENT: Reports: no symptoms Respiratory: Reports: no symptoms Cardiovascular: Reports: chest pain Gastrointestinal: Reports: no symptoms Genitourinary: Reports: no symptoms Musculoskeletal: Reports: no symptoms Skin: Reports: no symptoms Psychiatric: Reports: no symptoms Neurological: Reports: no symptoms Endocrine: Reports: no symptoms Hematologic/Lymphatic: Reports: no symptoms Physical Exam General Appearance: no apparent distress Lines, tubes and drains: peripheral HEENT: normocephalic, atraumatic Neck: non-tender, normal alignment Respiratory/Chest: chest wall non-tender Cardiovascular/Chest: normal peripheral pulses, normal rate, regular rhythm Abdomen: normal bowel sounds, non tender Extremities: normal range of motion, non-tender 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, no motor/sensory deficits Last 24 Hour Vital Signs Date Time Temp Pulse Resp B/P (MAP) Pulse Ox O2 Delivery O2 Flow Rate FiO2 06/19/18 17:53 89 160/88 06/19/18 17:12 Room Air 06/19/18 16:00 95 06/19/18 15:13 98.3 78 15 168/93 97 Room Air 98.3 06/19/18 15:13 98.4 78 18 168/93 97 Room Air 06/19/18 11:55 87 24 100 Room Air 21 06/19/18 11:47 88 23 97 Room Air 21 06/19/18 11:44 86 29 Room Air 21 06/19/18 11:34 98.2 87 27 165/78 97 Room Air 98.2 06/19/18 10:21 98.2 87 18 170/82 98 Room Air 98.2 Laboratory Tests Test 06/19/18 11:20 06/19/18 12:45 White Blood Count 10.6 K/UL (4.8-10.8) Red Blood Count 5.59 M/UL (4.70-6.10) Hemoglobin 14.1 G/DL (14.2-18.0) L Hematocrit 46.6 % (42.0-52.0) Mean Corpuscular Volume 83 FL (80-99) Mean Corpuscular Hemoglobin 25.2 PG (27.0-31.0) L Mean Corpuscular Hemoglobin Concent 30.3 G/DL (32.0-36.0) L Red Cell Distribution Width 16.1 % (11.6-14.8) H Platelet Count 249 K/UL (150-450) Mean Platelet Volume 6.0 FL (6.5-10.1) L Neutrophils (%) (Auto) 66.7 % (45.0-75.0) Lymphocytes (%) (Auto) 20.1 % (20.0-45.0) Monocytes (%) (Auto) 8.7 % (1.0-10.0) Eosinophils (%) (Auto) 2.5 % (0.0-3.0) Basophils (%) (Auto) 2.0 % (0.0-2.0) D-Dimer 0.34 mg/L FEU (0.00-0.49) Sodium Level 139 MMOL/L (136-145) Potassium Level 4.7 MMOL/L (3.5-5.1) Chloride Level 103 MMOL/L (98-107) Carbon Dioxide Level 26 MMOL/L (21-32) Anion Gap 10 mmol/L (5-15) Blood Urea Nitrogen 24 mg/dL (7-18) H Creatinine 1.4 MG/DL (0.55-1.30) H Estimat Glomerular Filtration Rate > 60 mL/min (>60) Glucose Level 97 MG/DL (74-106) Calcium Level 8.7 MG/DL (8.5-10.1) Total Bilirubin 0.4 MG/DL (0.2-1.0) Aspartate Amino Transf (AST/SGOT) 13 U/L (15-37) L Alanine Aminotransferase (ALT/SGPT) 13 U/L (12-78) Alkaline Phosphatase 100 U/L (46-116) Troponin I 0.000 ng/mL (0.000-0.056) Pro-B-Type Natriuretic Peptide 987 pg/mL (0-125) H Total Protein 7.7 G/DL (6.4-8.2) Albumin 3.0 G/DL (3.4-5.0) L Globulin 4.7 g/dL Albumin/Globulin Ratio 0.6 (1.0-2.7) L Height (Feet): 6 Height (Inches): 1.00 Weight (Pounds): 130 Medications Current Medications Medications (Trade) Dose Ordered Sig/Aminata Route PRN Reason Start Time Stop Time Status Last Admin Dose Admin Acetaminophen (Tylenol) 650 mg Q4H PRN ORAL fever 06/19/18 14:00 07/19/18 13:59 Albuterol/ Ipratropium (Albuterol/ Ipratropium) 3 ml EVERY 4 HOURS PRN HHN Shortness of Breath 06/19/18 14:00 06/24/18 13:59 Amlodipine Besylate (Norvasc) 10 mg DAILY ORAL 7/28/18 09:00 07/20/18 08:59 Cefepime HCl 2 gm/ Dextrose 110 ml @ 220 mls/hr DAILY IV 06/19/18 16:00 06/26/18 15:59 06/19/18 16:16 Dextrose (Dextrose 50%) STAT PRN IV Hypoglycemia 06/19/18 14:00 07/19/18 13:59 Heparin Sodium (Porcine) (Heparin 5000 units/ml) 5,000 units EVERY 12 HOURS SUBQ 06/19/18 21:00 07/19/18 20:59 Levetiracetam (Keppra) 500 mg DAILY ORAL 06/20/18 09:00 07/20/18 08:59 Metoprolol Succinate (Toprol XL) 50 mg BID ORAL 06/19/18 18:00 07/19/18 17:59 06/19/18 17:53 Mirtazapine (Remeron) 15 mg BEDTIME ORAL 06/19/18 21:00 07/19/18 20:59 Morphine Sulfate (Morphine Sulfate) 4 mg Q3H PRN IVP For Pain 06/19/18 16:00 06/26/18 15:59 06/19/18 16:11 Ondansetron HCl (Zofran) 4 mg Q6H PRN IVP Nausea & Vomiting 06/19/18 14:00 07/19/18 13:59 Pantoprazole (Protonix) 40 mg DAILY ORAL 06/19/18 18:15 07/19/18 18:14 Polyethylene Glycol (Miralax) 17 gm DAILYPRN PRN ORAL Constipation 06/19/18 14:00 07/19/18 13:59 Temazepam (Restoril) 15 mg HSPRN PRN ORAL Insomnia 06/19/18 21:00 06/26/18 20:59 Theophylline (Wilfrido-Dur) 100 mg EVERY 12 HOURS ORAL 06/19/18 21:00 07/19/18 20:59 Vancomycin/Sodium Chloride 250 ml @ 166.667 mls/hr Q24H IVPB 06/20/18 17:00 06/25/18 16:59 Assessment/Plan Status: stable Assessment/Plan Assessment 1. Hypertension. 2. Coronary artery bypass graft in 2009 and again in 2010, Coronary angioplasty with stent placement x2. 3. History of myocardial infarction x2. 4. Chronic obstructive pulmonary disease. 5. Seizure disorder. Plan -Aspirin -nitro prn -Statin -Ranexa -recommend cardiac cath to evaluate anatomy given multiple admissions and patient declining stress tests stating they are false negatives -Would arrange transfer to [facility] for cath Adonis Winn M.D. Jun 19, 2018 20:07
[2018-06-19] MEDS: Theophylline ER 100mg ORAL SCH (20:08)
[2018-06-19] MEDS: Heparin 5000 units/ml inj SUBQ SCH ×2 (20:10→21:00)
[2018-06-19] MEDS: Ranolazine 500mg tab ORAL SCH (20:30)
[2018-06-20] VITALS (7 sets, daily range): BP systolic 104–130; BP diastolic 60–77
[2018-06-20] MEDS: Morphine Sulfate 4mg/ml Inj (IV USE ONLY) IVP PRN ×7 (00:07→23:29)
[2018-06-20 07:19] LABS: BASOPHILS % (AUTO) 1.4 % (0.0-2.0); EOSINOPHILS % (AUTO) 3.3 % (0.0-3.0); HEMATOCRIT 46.6 % (42.0-52.0); HEMOGLOBIN 15.1 G/DL (14.2-18.0); LYMPHOCYTES % (AUTO) 17.2 % (20.0-45.0); MEAN CORPUSCULAR VOLUME 83 FL (80-99); MONOCYTES % (AUTO) 11.4 % (1.0-10.0); NEUTROPHILS % (AUTO) 66.6 % (45.0-75.0); PLATELET COUNT 243 K/UL (150-450); RED BLOOD COUNT 5.59 M/UL (4.70-6.10); RED CELL DISTRIBUTION WIDTH 16.2 % (11.6-14.8); WHITE BLOOD COUNT 9.5 K/UL (4.8-10.8)
--- NOTE | 2018-06-20 07:33 | Consultation ---
History of Present Illness General Date patient seen: Jun 20, 2018 Time patient seen: 07:00 Chief Complaint: Chest Pain Referring physician: dr Wright Reason for Consultation: COPD Present Illness HPI 67 y/old male with PMH of CAD, [place], CABG, angioplasty, HTN, COPD/emphysema, seizure disorder, gastritis, DM on his way to primary care physician office started to experience chest pain. Pain was located substernally. The patient also reported having a seizure. The patient's brought him to the emergency room at [facility]. Patient reported n/v and diarrhea, no hematemesis, no hematocelia, no melena No abdominal pain GI cocktail given in ED Able to tolerate diet denies SOB, cough, wheezing denied palpitations, dizziness, focal weakness vital signs reveal elevated blood pressure 170/82 Pulse oximetry was stable on room air Troponin negative ECG with NSR, no acute ischemic changes ProBNP 917 No leukocytosis, stable hemoglobin and hematocrit BUN 24 creatinine 1.4 CXR no acute cardiopulmonary pathology patient admitted for further management with diagnosis chest pain, breakthrough seizure ; n/v/diarrhea Allergies: Coded Allergies: EGG (Verified Allergy, Unknown, 09/22/15) MEPERIDINE (Verified Allergy, Unknown, 12/21/10) NITROGLYCERIN (Verified Allergy, Unknown, hives, 02/18/17) Medication History Scheduled Amlodipine Besylate* (Amlodipine Besylate*), 10 MG ORAL DAILY, (Reported) Cephalexin* (Keflex*), 500 MG ORAL EVERY 8 HOURS, (Reported) Clopidogrel Bisulfate* (Plavix*), 75 MG ORAL DAILY, (Reported) Hydromorphone Hcl (Dilaudid), 2 MG PO EVERY 4 HOURS Levetiracetam (Keppra), 500 MG ORAL DAILY, (Reported) Metoprolol Succinate* (Metoprolol Succinate*), 50 MG ORAL BID, (Reported) Mirtazapine* (Remeron*), 15 MG ORAL BEDTIME, (Reported) Ranitidine Hcl* (Zantac*), 150 MG ORAL Q12HR Theophylline (Theodur*), 100 MG ORAL EVERY 12 HOURS Scheduled PRN Albuterol Sulfate (Ventolin Hfa), 1 PUFF INH EVERY 6 HOURS PRN Docusate Sodium* (Colace*), 100 MG ORAL DAILY PRN for Constipation, (Reported) Ondansetron Hcl* (Zofran*), 8 MG ORAL Q6H PRN for Nausea & Vomiting, (Reported) Patient History History Provided By: Patient Healthcare decision maker Resuscitation status Advanced Directive on File No Past Medical/Surgical History Past Medical/Surgical History: (1) CAD (coronary artery disease) (2) Emphysema lung (3) HTN (hypertension) (4) Esophagitis (5) Shingles (6) Gastritis (7) Gastroenteritis (8) Hypothyroidism (9) Seizure disorder (10) Peripheral vascular disease (11) ATN (acute tubular necrosis) (12) HTN (hypertension) (13) Severe malnutrition (14) DM (diabetes mellitus) (15) Cellulitis, leg (16) Diabetes mellitus type II, uncontrolled (17) Vikki esophagitis (18) COPD exacerbation (19) Osteomyelitis of right lower extremity Review of Systems Constitutional: Reports: weakness Eye: Reports: no symptoms ENT: Reports: no symptoms Respiratory: Reports: see HPI, other - COPD Cardiovascular: Reports: see HPI Gastrointestinal: Reports: see HPI, nausea, vomiting, other - gastritis Musculoskeletal: Reports: back pain - chronic , joint pain Skin: Reports: other - chronic RLE ucler Psychiatric: Reports: depressed feelings Neurological: Reports: seizure Endocrine: Reports: other - DM Hematologic/Lymphatic: Reports: no symptoms Physical Exam General Appearance: no apparent distress, alert Lines, tubes and drains: peripheral HEENT: normocephalic, atraumatic, mucous membranes moist Neck: non-tender, supple Respiratory/Chest: lungs clear - with decreased air exchange , no accessory muscle use Cardiovascular/Chest: normal peripheral pulses, normal rate, regular rhythm - SR on tele Abdomen: normal bowel sounds, non tender, soft Extremities: non-tender, no calf tenderness, normal capillary refill Skin Exam: warm/dry Neurologic: abnormal gait, alert, oriented x 3, responsive Musculoskeletal: atrophy - BLE Last 24 Hour Vital Signs Date Time Temp Pulse Resp B/P (MAP) Pulse Ox O2 Delivery O2 Flow Rate FiO2 06/20/18 04:00 76 06/20/18 04:00 98.2 76 19 128/77 (94) 95 98.2 06/20/18 00:00 99.2 86 18 130/69 (89) 93 99.2 06/20/18 00:00 82 06/19/18 21:00 Room Air 06/19/18 20:00 85 06/19/18 20:00 98.0 85 19 152/84 (106) 93 98.0 06/19/18 17:53 89 160/88 06/19/18 17:12 Room Air 06/19/18 16:00 95 06/19/18 15:13 98.3 78 15 168/93 97 Room Air 98.3 06/19/18 15:13 98.4 78 18 168/93 97 Room Air 06/19/18 11:55 87 24 100 Room Air 21 06/19/18 11:47 88 23 97 Room Air 21 06/19/18 11:44 86 29 Room Air 21 06/19/18 11:34 98.2 87 27 165/78 97 Room Air 98.2 06/19/18 10:21 98.2 87 18 170/82 98 Room Air 98.2 Intake and Output 06/19/18 06/20/18 19:00 07:00 Intake Total 643.3 ml 480 ml Output Total 300 ml Balance 643.3 ml 180 ml Intake Oral 240 ml 480 ml IV Total 403.3 ml Output Urine Total 300 ml # Voids 1 Laboratory Tests Test 06/19/18 11:20 06/19/18 12:45 06/20/18 07:10 White Blood Count 10.6 K/UL (4.8-10.8) 9.5 K/UL (4.8-10.8) Red Blood Count 5.59 M/UL (4.70-6.10) 5.59 M/UL (4.70-6.10) Hemoglobin 14.1 G/DL (14.2-18.0) L 15.1 G/DL (14.2-18.0) Hematocrit 46.6 % (42.0-52.0) 46.6 % (42.0-52.0) Mean Corpuscular Volume 83 FL (80-99) 83 FL (80-99) Mean Corpuscular Hemoglobin 25.2 PG (27.0-31.0) L 27.1 PG (27.0-31.0) Mean Corpuscular Hemoglobin Concent 30.3 G/DL (32.0-36.0) L 32.5 G/DL (32.0-36.0) Red Cell Distribution Width 16.1 % (11.6-14.8) H 16.2 % (11.6-14.8) H Platelet Count 249 K/UL (150-450) 243 K/UL (150-450) Mean Platelet Volume 6.0 FL (6.5-10.1) L 6.6 FL (6.5-10.1) Neutrophils (%) (Auto) 66.7 % (45.0-75.0) 66.6 % (45.0-75.0) Lymphocytes (%) (Auto) 20.1 % (20.0-45.0) 17.2 % (20.0-45.0) L Monocytes (%) (Auto) 8.7 % (1.0-10.0) 11.4 % (1.0-10.0) H Eosinophils (%) (Auto) 2.5 % (0.0-3.0) 3.3 % (0.0-3.0) H Basophils (%) (Auto) 2.0 % (0.0-2.0) 1.4 % (0.0-2.0) D-Dimer 0.34 mg/L FEU (0.00-0.49) Sodium Level 139 MMOL/L (136-145) Pending Potassium Level 4.7 MMOL/L (3.5-5.1) Pending Chloride Level 103 MMOL/L (98-107) Pending Carbon Dioxide Level 26 MMOL/L (21-32) Pending Anion Gap 10 mmol/L (5-15) Blood Urea Nitrogen 24 mg/dL (7-18) H Pending Creatinine 1.4 MG/DL (0.55-1.30) H Pending Estimat Glomerular Filtration Rate > 60 mL/min (>60) Pending Glucose Level 97 MG/DL (74-106) Pending Calcium Level 8.7 MG/DL (8.5-10.1) Pending Total Bilirubin 0.4 MG/DL (0.2-1.0) Pending Aspartate Amino Transf (AST/SGOT) 13 U/L (15-37) L Pending Alanine Aminotransferase (ALT/SGPT) 13 U/L (12-78) Pending Alkaline Phosphatase 100 U/L (46-116) Pending Troponin I 0.000 ng/mL (0.000-0.056) Pending Pro-B-Type Natriuretic Peptide 987 pg/mL (0-125) H Total Protein 7.7 G/DL (6.4-8.2) Pending Albumin 3.0 G/DL (3.4-5.0) L Pending Globulin 4.7 g/dL Pending Albumin/Globulin Ratio 0.6 (1.0-2.7) L Height (Feet): 6 Height (Inches): 1.00 Weight (Pounds): 130 Medications Current Medications Medications (Trade) Dose Ordered Sig/Aminata Route PRN Reason Start Time Stop Time Status Last Admin Dose Admin Acetaminophen (Tylenol) 650 mg Q4H PRN ORAL fever 06/19/18 14:00 07/19/18 13:59 Albuterol/ Ipratropium (Albuterol/ Ipratropium) 3 ml EVERY 4 HOURS PRN HHN Shortness of Breath 06/19/18 14:00 06/24/18 13:59 Amlodipine Besylate (Norvasc) 10 mg DAILY ORAL 06/20/18 09:00 07/20/18 08:59 Cefepime HCl 2 gm/ Dextrose 110 ml @ 220 mls/hr DAILY IV 06/19/18 16:00 06/26/18 15:59 06/19/18 16:16 Dextrose (Dextrose 50%) STAT PRN IV Hypoglycemia 06/19/18 14:00 07/19/18 13:59 Heparin Sodium (Porcine) (Heparin 5000 units/ml) 5,000 units EVERY 12 HOURS SUBQ 06/19/18 21:00 07/19/18 20:59 Isosorbide Mononitrate (Imdur) 30 mg DAILY ORAL 06/20/18 09:00 07/20/18 08:59 Levetiracetam (Keppra) 500 mg DAILY ORAL 06/20/18 09:00 07/20/18 08:59 Metoprolol Succinate (Toprol XL) 50 mg BID ORAL 06/19/18 18:00 07/19/18 17:59 06/19/18 17:53 Mirtazapine (Remeron) 15 mg BEDTIME ORAL 06/19/18 21:00 07/19/18 20:59 06/19/18 20:08 Morphine Sulfate (Morphine Sulfate) 4 mg Q3H PRN IVP For Pain 06/19/18 16:00 06/26/18 15:59 06/20/18 04:11 Ondansetron HCl (Zofran) 4 mg Q6H PRN IVP Nausea & Vomiting 06/19/18 14:00 07/19/18 13:59 Pantoprazole (Protonix) 40 mg DAILY ORAL 06/19/18 18:15 07/19/18 18:14 Polyethylene Glycol (Miralax) 17 gm DAILYPRN PRN ORAL Constipation 06/19/18 14:00 07/19/18 13:59 Ranolazine (Ranexa ER 500mg) 500 mg Q12HR ORAL 06/19/18 21:00 07/19/18 20:59 06/19/18 20:30 Temazepam (Restoril) 15 mg HSPRN PRN ORAL Insomnia 06/19/18 21:00 06/26/18 20:59 Theophylline (Wilfrido-Dur) 100 mg EVERY 12 HOURS ORAL 06/19/18 21:00 07/19/18 20:59 06/19/18 20:08 Vancomycin/Sodium Chloride 250 ml @ 166.667 mls/hr Q24H IVPB 06/20/18 17:00 06/25/18 16:59 Assessment/Plan Assessment/Plan ASSESSMENT Chest pain Hypertensive urgency CAD, s/p CABG 2, status post angioplasty 2 History of [place] 2 COPD Breakthrough seizure with hx of seizure disorder Chronic back pain Severe protein calorie malnutrition Chronic renal insufficiency R lower leg ulcer n/v/diarrhea possible gastroenteritis PLAN OF CARE Telemetry Serial troponin , EKG cardio follows patient refusing stress test stating there are false negative APT with Plavix, (off ASA due to GI distress), Ranexa, isosorbide (patient allergic to nitroglycerin ) continue statin Beta rasta Blood pressure management with calcium channel rasta and beta rasta, optimize further as needed DVT/GI prophylaxis O2 titrate, HHN prn, Theophylline, Venous duplex BLE seizure precautions, continue Keppra, encourage compliance lead renal parameters, avoid nephrotoxic patient with known hx of gastritis, esophagitis, GI prophylaxis tolerated diet , probably mild gastroenteritis check stool for C dif if diarrhea continues symptomatic care, a/emetic prn dietary eval for recs to improve nutr status pain management RLE ulcer wound care, no evidence of infection Cardio recommended transfer to [facility] for cardiac catheterization since patient declining stress test and had multiply admission for chest pain discussed with pt, he declining [facility] hospitalization but will concur with [facility] transfer case discussed and evaluated by supervising physician Kristine Black NP Jun 20, 2018 07:33
[2018-06-20 07:40] LABS: ALANINE AMINOTRANSFERASE 17 U/L (12-78); ALBUMIN 2.7 G/DL (3.4-5.0); ALBUMIN/GLOBULIN RATIO 0.5 (1.0-2.7); ALKALINE PHOSPHATASE 97 U/L (46-116); ANION GAP 9 mmol/L (5-15); ASPARTATE AMINO TRANSFERASE 26 U/L (15-37); BILIRUBIN,TOTAL 0.4 MG/DL (0.2-1.0); BLOOD UREA NITROGEN 23 mg/dL (7-18); CALCIUM 8.5 MG/DL (8.5-10.1); CARBON DIOXIDE 25 MMOL/L (21-32); CHLORIDE 103 MMOL/L (98-107); CREATININE 1.3 MG/DL (0.55-1.30); POTASSIUM 5.2 MMOL/L (3.5-5.1); SODIUM 137 MMOL/L (136-145)
[2018-06-20] MEDS: Cefepime HCl 2 GM in D5W 110 ML IV SCH (08:58)
[2018-06-20] MEDS: Theophylline ER 100mg ORAL SCH ×2 (08:59→20:18)
[2018-06-20] MEDS: Metoprolol Succinate XL 50mg tab ORAL SCH ×2 (08:59→17:27)
[2018-06-20] MEDS: Ranolazine 500mg tab ORAL SCH ×2 (08:59→20:18)
[2018-06-20] MEDS: Imdur 30mg tab ORAL SCH (08:59)
[2018-06-20] MEDS: Heparin 5000 units/ml inj SUBQ SCH ×2 (09:00→21:00)
--- NOTE | 2018-06-20 10:42 | Cardiology Progress Note ---
Assessment/Plan Status: stable Assessment/Plan Assessment 1. Hypertension. 2. Coronary artery bypass graft in 2009 and again in 2011, Coronary angioplasty with stent placement x2. 3. History of myocardial infarction x2. 4. Chronic obstructive pulmonary disease. 5. Seizure disorder. Plan -Plavix -nitro prn -Statin -Ranexa -Metoprolol -recommend cardiac cath to evaluate anatomy given multiple admissions and patient declining stress tests stating they are false negatives -Would arrange transfer to [facility] for cath Subjective Cardiovascular: Reports: no symptoms Respiratory: Reports: no symptoms Gastrointestinal/Abdominal: Reports: no symptoms Genitourinary: Reports: no symptoms Subjective No acute events, no complaints, resting comfortably, agrees to transfer to [facility] Objective Last 24 Hour Vital Signs Date Time Temp Pulse Resp B/P (MAP) Pulse Ox O2 Delivery O2 Flow Rate FiO2 06/20/18 09:00 Room Air 06/20/18 08:59 130/70 06/20/18 08:59 81 130/70 06/20/18 08:59 81 130/70 06/20/18 08:00 98.1 81 18 130/70 (90) 95 98.1 81 06/20/18 08:00 79 06/20/18 04:00 76 06/20/18 04:00 98.2 76 19 128/77 (94) 95 98.2 06/20/18 00:00 99.2 86 18 130/69 (89) 93 99.2 06/20/18 00:00 82 06/19/18 21:00 Room Air 06/19/18 20:00 85 06/19/18 20:00 98.0 85 19 152/84 (106) 93 98.0 06/19/18 17:53 89 160/88 06/19/18 17:12 Room Air 06/19/18 16:00 95 06/19/18 15:13 98.3 78 15 168/93 97 Room Air 98.3 06/19/18 15:13 98.4 78 18 168/93 97 Room Air 06/19/18 11:55 87 24 100 Room Air 21 06/19/18 11:47 88 23 97 Room Air 21 06/19/18 11:44 86 29 Room Air 06/19/18 11:34 98.2 87 27 165/78 97 Room Air 98.2 General Appearance: alert, mild distress EENT: PERRL/EOMI, normal ENT inspection, TMs normal Neck: non-tender, normal alignment, supple, normal inspection, no JVD Rhythm: NSR Cardiovascular: normal peripheral pulses, normal rate, regular rhythm Respiratory/Chest: chest wall non-tender, lungs clear Abdomen: normal bowel sounds, non tender Extremities: normal range of motion, non-tender Neurologic: verification clerk II-XII grossly normal Intake and Output 06/19/18 06/20/18 19:00 07:00 Intake Total 643.3 ml 480 ml Output Total 300 ml Balance 643.3 ml 180 ml Intake Oral 240 ml 480 ml IV Total 403.3 ml Output Urine Total 300 ml # Voids 1 Laboratory Tests Test 06/19/18 11:20 06/19/18 12:45 06/20/18 07:10 White Blood Count 10.6 K/UL (4.8-10.8) 9.5 K/UL (4.8-10.8) Red Blood Count 5.59 M/UL (4.70-6.10) 5.59 M/UL (4.70-6.10) Hemoglobin 14.1 G/DL (14.2-18.0) L 15.1 G/DL (14.2-18.0) Hematocrit 46.6 % (42.0-52.0) 46.6 % (42.0-52.0) Mean Corpuscular Volume 83 FL (80-99) 83 FL (80-99) Mean Corpuscular Hemoglobin 25.2 PG (27.0-31.0) L 27.1 PG (27.0-31.0) Mean Corpuscular Hemoglobin Concent 30.3 G/DL (32.0-36.0) L 32.5 G/DL (32.0-36.0) Red Cell Distribution Width 16.1 % (11.6-14.8) H 16.2 % (11.6-14.8) H Platelet Count 249 K/UL (150-450) 243 K/UL (150-450) Mean Platelet Volume 6.0 FL (6.5-10.1) L 6.6 FL (6.5-10.1) Neutrophils (%) (Auto) 66.7 % (45.0-75.0) 66.6 % (45.0-75.0) Lymphocytes (%) (Auto) 20.1 % (20.0-45.0) 17.2 % (20.0-45.0) L Monocytes (%) (Auto) 8.7 % (1.0-10.0) 11.4 % (1.0-10.0) H Eosinophils (%) (Auto) 2.5 % (0.0-3.0) 3.3 % (0.0-3.0) H Basophils (%) (Auto) 2.0 % (0.0-2.0) 1.4 % (0.0-2.0) D-Dimer 0.34 mg/L FEU (0.00-0.49) Sodium Level 139 MMOL/L (136-145) 137 MMOL/L (136-145) Potassium Level 4.7 MMOL/L (3.5-5.1) 5.2 MMOL/L (3.5-5.1) H Chloride Level 103 MMOL/L (98-107) 103 MMOL/L (98-107) Carbon Dioxide Level 26 MMOL/L (21-32) 25 MMOL/L (21-32) Anion Gap 10 mmol/L (5-15) 9 mmol/L (5-15) Blood Urea Nitrogen 24 mg/dL (7-18) H 23 mg/dL (7-18) H Creatinine 1.4 MG/DL (0.55-1.30) H 1.3 MG/DL (0.55-1.30) Estimat Glomerular Filtration Rate > 60 mL/min (>60) > 60 mL/min (>60) Glucose Level 97 MG/DL (74-106) 98 MG/DL (74-106) Calcium Level 8.7 MG/DL (8.5-10.1) 8.5 MG/DL (8.5-10.1) Total Bilirubin 0.4 MG/DL (0.2-1.0) 0.4 MG/DL (0.2-1.0) Aspartate Amino Transf (AST/SGOT) 13 U/L (15-37) L 26 U/L (15-37) Alanine Aminotransferase (ALT/SGPT) 13 U/L (12-78) 17 U/L (12-78) Alkaline Phosphatase 100 U/L (46-116) 97 U/L (46-116) Troponin I 0.000 ng/mL (0.000-0.056) 0.000 ng/mL (0.000-0.056) Pro-B-Type Natriuretic Peptide 987 pg/mL (0-125) H Total Protein 7.7 G/DL (6.4-8.2) 7.7 G/DL (6.4-8.2) Albumin 3.0 G/DL (3.4-5.0) L 2.7 G/DL (3.4-5.0) L Globulin 4.7 g/dL 5.0 g/dL Albumin/Globulin Ratio 0.6 (1.0-2.7) L 0.5 (1.0-2.7) L Adonis Winn M.D. Jun 20, 2018 10:42
--- NOTE | 2018-06-20 12:59 | Consultation ---
History of Present Illness General Date patient seen: Jun 20, 2018 Chief Complaint: Chest Pain Referring physician: dr Wright Reason for Consultation: COPD Present Illness HPI 67-year-old male with hx of COPD, CAD/MO s/p CABG/ stents x2, chronic pain, s/ p PPM, chronic leg ulcers, HTN, severe malnutrition, MDD, tobacco abuse, seizure disorder, chronic R>L edema, recurrent leg cellulitis,emphysema, DM2, bedbound, recurrent admissions presents to ED on 06/19 with chest pain that he developed on his way to PCP office. Also reportedly patient developed a seizure episode. He also reported n/v and diarrhea Denies hematemesis, no hematochezia, melena, abdominal pain, SOB, cough, wheezing, palpitations, dizziness, focal weakness , f/c Of note patient recently admitted here from 06/08-06/12 after complaining of CP and not having his chronic meds. No evidence of leg cellulitis on this admission. No treated with antibiotics. Patient also admited here from 05/28-06/02 w/ LE pain, SOB and CP; found to be volume overload and R leg cellulitis. Also here from 05/12-05/18 for Chest pain and b/l leg cellulitis and swelling. Also, patient admitted here on late February 2018 with SOB, cough and chest pain; found to have COPD exacerbation. At that time, R ankle ulcer had no signs of infection. Treated with a total 5 days of abx (Zosyn>levaquin) Allergies: Coded Allergies: EGG (Verified Allergy, Unknown, 09/22/15) MEPERIDINE (Verified Allergy, Unknown, 12/21/10) NITROGLYCERIN (Verified Allergy, Unknown, hives, 02/18/17) Medication History Scheduled Amlodipine Besylate* (Amlodipine Besylate*), 10 MG ORAL DAILY, (Reported) Cephalexin* (Keflex*), 500 MG ORAL EVERY 8 HOURS, (Reported) Clopidogrel Bisulfate* (Plavix*), 75 MG ORAL DAILY, (Reported) Hydromorphone Hcl (Dilaudid), 2 MG PO EVERY 4 HOURS Levetiracetam (Keppra), 500 MG ORAL DAILY, (Reported) Metoprolol Succinate* (Metoprolol Succinate*), 50 MG ORAL BID, (Reported) Mirtazapine* (Remeron*), 15 MG ORAL BEDTIME, (Reported) Ranitidine Hcl* (Zantac*), 150 MG ORAL Q12HR Theophylline (Theodur*), 100 MG ORAL EVERY 12 HOURS Scheduled PRN Albuterol Sulfate (Ventolin Hfa), 1 PUFF INH EVERY 6 HOURS PRN Docusate Sodium* (Colace*), 100 MG ORAL DAILY PRN for Constipation, (Reported) Ondansetron Hcl* (Zofran*), 8 MG ORAL Q6H PRN for Nausea & Vomiting, (Reported) Patient History Healthcare decision maker Resuscitation status Advanced Directive on File No Patient History Narrative Pmhx: as above Shx: The patient is , however he lives with his ex-. The patient admits to tobacco use of one-quarter pack per day. The patient previously smoked one pack per day. The patient denies alcohol use. Fhx: non contributory Review of Systems All Other Systems: negative except mentioned in HPI Physical Exam Physical Exam Narrative General Appearance: no apparent distress, alert Lines, tubes and drains: peripheral HEENT: normocephalic, atraumatic, mucous membranes moist Neck: non-tender, supple Respiratory/Chest: lungs clear - with decreased air exchange , no accessory muscle use Cardiovascular/Chest: normal peripheral pulses, normal rate, regular rhythm - SR on tele Abdomen: normal bowel sounds, non tender, soft Extremities: non-tender, no calf tenderness, normal capillary refill Skin Exam: warm/dry Neurologic: abnormal gait, alert, oriented x 3, responsive Musculoskeletal: atrophy - BLE Last 24 Hour Vital Signs Date Time Temp Pulse Resp B/P (MAP) Pulse Ox O2 Delivery O2 Flow Rate FiO2 06/20/18 11:44 98.1 85 18 104/69 (81) 96 98.1 85 06/20/18 09:00 Room Air 06/20/18 08:59 130/70 06/20/18 08:59 81 130/70 06/20/18 08:59 81 130/70 06/20/18 08:00 98.1 81 18 130/70 (90) 95 98.1 81 06/20/18 08:00 79 06/20/18 04:00 76 06/20/18 04:00 98.2 76 19 128/77 (94) 95 98.2 06/20/18 00:00 99.2 86 18 130/69 (89) 93 99.2 06/20/18 00:00 82 06/19/18 21:00 Room Air 06/19/18 20:00 85 06/19/18 20:00 98.0 85 19 152/84 (106) 93 98.0 06/19/18 17:53 89 160/88 06/19/18 17:12 Room Air 06/19/18 16:00 95 06/19/18 15:13 98.3 78 15 168/93 97 Room Air 98.3 06/19/18 15:13 98.4 78 18 168/93 97 Room Air Intake and Output 06/19/18 06/20/18 19:00 07:00 Intake Total 643.3 ml 480 ml Output Total 300 ml Balance 643.3 ml 180 ml Intake Oral 240 ml 480 ml IV Total 403.3 ml Output Urine Total 300 ml # Voids 1 Laboratory Tests Test 06/20/18 07:10 White Blood Count 9.5 K/UL (4.8-10.8) Red Blood Count 5.59 M/UL (4.70-6.10) Hemoglobin 15.1 G/DL (14.2-18.0) Hematocrit 46.6 % (42.0-52.0) Mean Corpuscular Volume 83 FL (80-99) Mean Corpuscular Hemoglobin 27.1 PG (27.0-31.0) Mean Corpuscular Hemoglobin Concent 32.5 G/DL (32.0-36.0) Red Cell Distribution Width 16.2 % (11.6-14.8) H Platelet Count 243 K/UL (150-450) Mean Platelet Volume 6.6 FL (6.5-10.1) Neutrophils (%) (Auto) 66.6 % (45.0-75.0) Lymphocytes (%) (Auto) 17.2 % (20.0-45.0) L Monocytes (%) (Auto) 11.4 % (1.0-10.0) H Eosinophils (%) (Auto) 3.3 % (0.0-3.0) H Basophils (%) (Auto) 1.4 % (0.0-2.0) Sodium Level 137 MMOL/L (136-145) Potassium Level 5.2 MMOL/L (3.5-5.1) H Chloride Level 103 MMOL/L (98-107) Carbon Dioxide Level 25 MMOL/L (21-32) Anion Gap 9 mmol/L (5-15) Blood Urea Nitrogen 23 mg/dL (7-18) H Creatinine 1.3 MG/DL (0.55-1.30) Estimat Glomerular Filtration Rate > 60 mL/min (>60) Glucose Level 98 MG/DL (74-106) Calcium Level 8.5 MG/DL (8.5-10.1) Total Bilirubin 0.4 MG/DL (0.2-1.0) Aspartate Amino Transf (AST/SGOT) 26 U/L (15-37) Alanine Aminotransferase (ALT/SGPT) 17 U/L (12-78) Alkaline Phosphatase 97 U/L (46-116) Troponin I 0.000 ng/mL (0.000-0.056) Total Protein 7.7 G/DL (6.4-8.2) Albumin 2.7 G/DL (3.4-5.0) L Globulin 5.0 g/dL Albumin/Globulin Ratio 0.5 (1.0-2.7) L Height (Feet): 6 Height (Inches): 1.00 Weight (Pounds): 130 Medications Current Medications Medications (Trade) Dose Ordered Sig/Aminata Route PRN Reason Start Time Stop Time Status Last Admin Dose Admin Acetaminophen (Tylenol) 650 mg Q4H PRN ORAL fever 06/19/18 14:00 07/19/18 13:59 Albuterol/ Ipratropium (Albuterol/ Ipratropium) 3 ml EVERY 4 HOURS PRN HHN Shortness of Breath 06/19/18 14:00 06/24/18 13:59 Amlodipine Besylate (Norvasc) 10 mg DAILY ORAL 06/20/18 09:00 07/20/18 08:59 06/20/18 08:59 Cefepime HCl 2 gm/ Dextrose 110 ml @ 220 mls/hr DAILY IV 06/19/18 16:00 06/26/18 15:59 06/20/18 08:58 Clopidogrel Bisulfate (Plavix) 75 mg DAILY ORAL 06/20/18 09:00 07/20/18 08:59 06/20/18 08:59 Dextrose (Dextrose 50%) STAT PRN IV Hypoglycemia 06/19/18 14:00 07/19/18 13:59 Heparin Sodium (Porcine) (Heparin 5000 units/ml) 5,000 units EVERY 12 HOURS SUBQ 06/19/18 21:00 07/19/18 20:59 Isosorbide Mononitrate (Imdur) 30 mg DAILY ORAL 06/20/18 09:00 07/20/18 08:59 06/20/18 08:59 Levetiracetam (Keppra) 500 mg DAILY ORAL 06/20/18 09:00 07/20/18 08:59 06/20/18 08:59 Metoprolol Succinate (Toprol XL) 50 mg BID ORAL 06/19/18 18:00 07/19/18 17:59 06/20/18 08:59 Mirtazapine (Remeron) 15 mg BEDTIME ORAL 06/19/18 21:00 07/19/18 20:59 06/19/18 20:08 Morphine Sulfate (Morphine Sulfate) 4 mg Q3H PRN IVP For Pain 06/19/18 16:00 06/26/18 15:59 06/20/18 12:41 Ondansetron HCl (Zofran) 4 mg Q6H PRN IVP Nausea & Vomiting 06/19/18 14:00 07/19/18 13:59 Pantoprazole (Protonix) 40 mg DAILY ORAL 06/19/18 18:15 07/19/18 18:14 06/20/18 08:59 Polyethylene Glycol (Miralax) 17 gm DAILYPRN PRN ORAL Constipation 06/19/18 14:00 07/19/18 13:59 Ranolazine (Ranexa ER 500mg) 500 mg Q12HR ORAL 06/19/18 21:00 07/19/18 20:59 06/20/18 08:59 Temazepam (Restoril) 15 mg HSPRN PRN ORAL Insomnia 06/19/18 21:00 06/26/18 20:59 Theophylline (Wilfrido-Dur) 100 mg EVERY 12 HOURS ORAL 06/19/18 21:00 07/19/18 20:59 06/20/18 08:59 Vancomycin/Sodium Chloride 250 ml @ 166.667 mls/hr Q24H IVPB 06/20/18 17:00 06/25/18 16:59 Assessment/Plan Assessment/Plan Abx: IV Vanco 06/19- Cefepime 06/19- Assessment: Breakthrough Seizure N/V, diarrhea- now resolved- probably viral gastroenteritis Afebrile, no leukocytosis -CXR: no acute process Recent COPD exacerbation 05/2018 Recurrent Leg cellulitis, s/p Rx- at present no signs of cellulitis -R ankle cellulitis early 05/2018, s/p Rx -B/l leg cellulitis 03/2018, s/p Rx Chronic R>L edema R Ankle chronic ulcer- healing, no signs of infection -R ankle xray 05/31/2018: Severe post fracture deformity of the ankle as described above. No significant change. -R foot xray 03/2018: No acute injury identified. Abnormal fifth MPJ joint which may be on the basis of previous surgery/trauma or old erosive process. Osteoporosis -a. duplex: A mild (10-30%) stenosis is seen in the mid superficial femoral artery. There is no evidence of occlusion within this segment. HTN severe malnutrition MDD tobacco abuse seizure disorder emphysema DM2 CAD s/p CABG COPD -recent exacerbation requiring admission 02/2018 bedbound Plan: -Dc IV vanco and cefepime and monitor off abx -06/10 SP Zosyn #2 -/ SP Keflex #1 -06/02 SP Ancef #6 -05/16 SP Ancef # 5 -05/12 SP Cefepime and Zosyn x1 -5/3 SP PO Levaquin #3 -03/23/18 SP Zosyn #2 -f/u cx -Monitor CBC/CMP, temperatures -wound care per hosp protocol Thank you for this consultation. Will continue to follow along with you. Discussed with Jessica Oneill M.D. Jun 20, 2018 12:58
--- NOTE | 2018-06-20 13:53 | Internal Med Progress Note ---
Subjective Date of Service: Jun 20, 2018 Physician Name Shantanu Reyna Attending Physician Phil Wright MD Current Medications Medications (Trade) Dose Ordered Sig/Aminata Route PRN Reason Start Time Stop Time Status Last Admin Dose Admin Acetaminophen (Tylenol) 650 mg Q4H PRN ORAL fever 06/19/18 14:00 07/19/18 13:59 Albuterol/ Ipratropium (Albuterol/ Ipratropium) 3 ml EVERY 4 HOURS PRN HHN Shortness of Breath 06/19/18 14:00 06/24/18 13:59 Amlodipine Besylate (Norvasc) 10 mg DAILY ORAL 06/20/18 09:00 07/20/18 08:59 06/20/18 08:59 Cefepime HCl 2 gm/ Dextrose 110 ml @ 220 mls/hr DAILY IV 06/19/18 16:00 06/26/18 15:59 06/20/18 08:58 Clopidogrel Bisulfate (Plavix) 75 mg DAILY ORAL 06/20/18 09:00 07/20/18 08:59 06/20/18 08:59 Dextrose (Dextrose 50%) STAT PRN IV Hypoglycemia 06/19/18 14:00 07/19/18 13:59 Heparin Sodium (Porcine) (Heparin 5000 units/ml) 5,000 units EVERY 12 HOURS SUBQ 06/19/18 21:00 07/19/18 20:59 Isosorbide Mononitrate (Imdur) 30 mg DAILY ORAL 06/20/18 09:00 07/20/18 08:59 06/20/18 08:59 Levetiracetam (Keppra) 500 mg DAILY ORAL 06/20/18 09:00 07/20/18 08:59 06/20/18 08:59 Metoprolol Succinate (Toprol XL) 50 mg BID ORAL 06/19/18 18:00 07/19/18 17:59 06/20/18 08:59 Mirtazapine (Remeron) 15 mg BEDTIME ORAL 06/19/18 21:00 07/19/18 20:59 06/19/18 20:08 Morphine Sulfate (Morphine Sulfate) 4 mg Q3H PRN IVP For Pain 06/19/18 16:00 06/26/18 15:59 06/20/18 12:41 Ondansetron HCl (Zofran) 4 mg Q6H PRN IVP Nausea & Vomiting 06/19/18 14:00 07/19/18 13:59 Pantoprazole (Protonix) 40 mg DAILY ORAL 06/19/18 18:15 07/19/18 18:14 06/20/18 08:59 Polyethylene Glycol (Miralax) 17 gm DAILYPRN PRN ORAL Constipation 06/19/18 14:00 07/19/18 13:59 Ranolazine (Ranexa ER 500mg) 500 mg Q12HR ORAL 06/19/18 21:00 07/19/18 20:59 06/20/18 08:59 Temazepam (Restoril) 15 mg HSPRN PRN ORAL Insomnia 06/19/18 21:00 06/26/18 20:59 Theophylline (Wilfrido-Dur) 100 mg EVERY 12 HOURS ORAL 06/19/18 21:00 07/19/18 20:59 06/20/18 08:59 Vancomycin/Sodium Chloride 250 ml @ 166.667 mls/hr Q24H IVPB 06/20/18 17:00 06/25/18 16:59 Allergies: Coded Allergies: EGG (Verified Allergy, Unknown, 09/22/15) MEPERIDINE (Verified Allergy, Unknown, 12/21/10) NITROGLYCERIN (Verified Allergy, Unknown, hives, 02/18/17) ROS Limited/Unobtainable: No Constitutional: Reports: no symptoms HEENT: Reports: no symptoms Cardiovascular: Reports: chest pain Respiratory: Reports: no symptoms Gastrointestinal/Abdominal: Reports: no symptoms Genitourinary: Reports: no symptoms 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: Reports: no symptoms Subjective 67 YO M admitted with chest pain. Await transfer to [facility] [place] for cardiac cath. Cover for Int Wilfred-Dr Garcia. Objective Last Vital Signs Date Time Temp Pulse Resp B/P (MAP) Pulse Ox O2 Delivery O2 Flow Rate FiO2 06/20/18 11:44 98.1 85 18 104/69 (81) 96 98.1 85 06/20/18 09:00 Room Air 06/19/18 11:55 21 General Appearance: WD/WN, no apparent distress, alert EENT: PERRL/EOMI, normal ENT inspection Neck: non-tender, normal alignment, supple, normal inspection Cardiovascular: normal peripheral pulses, normal rate, regular rhythm, no gallop/murmur, no JVD Respiratory/Chest: chest wall non-tender, lungs clear, normal breath sounds, no respiratory distress, no accessory muscle use Abdomen: normal bowel sounds, non tender, soft, no organomegaly, no mass Extremities: normal range of motion, non-tender Edema: trace edema, mild edema Neurologic: electrical fitter II-XII grossly normal, no motor/sensory deficits Skin: normal pigmentation, warm/dry Laboratory Tests Test 06/20/18 07:10 White Blood Count 9.5 K/UL (4.8-10.8) Red Blood Count 5.59 M/UL (4.70-6.10) Hemoglobin 15.1 G/DL (14.2-18.0) Hematocrit 46.6 % (42.0-52.0) Mean Corpuscular Volume 83 FL (80-99) Mean Corpuscular Hemoglobin 27.1 PG (27.0-31.0) Mean Corpuscular Hemoglobin Concent 32.5 G/DL (32.0-36.0) Red Cell Distribution Width 16.2 % (11.6-14.8) H Platelet Count 243 K/UL (150-450) Mean Platelet Volume 6.6 FL (6.5-10.1) Neutrophils (%) (Auto) 66.6 % (45.0-75.0) Lymphocytes (%) (Auto) 17.2 % (20.0-45.0) L Monocytes (%) (Auto) 11.4 % (1.0-10.0) H Eosinophils (%) (Auto) 3.3 % (0.0-3.0) H Basophils (%) (Auto) 1.4 % (0.0-2.0) Sodium Level 137 MMOL/L (136-145) Potassium Level 5.2 MMOL/L (3.5-5.1) H Chloride Level 103 MMOL/L (98-107) Carbon Dioxide Level 25 MMOL/L (21-32) Anion Gap 9 mmol/L (5-15) Blood Urea Nitrogen 23 mg/dL (7-18) H Creatinine 1.3 MG/DL (0.55-1.30) Estimat Glomerular Filtration Rate > 60 mL/min (>60) Glucose Level 98 MG/DL (74-106) Calcium Level 8.5 MG/DL (8.5-10.1) Total Bilirubin 0.4 MG/DL (0.2-1.0) Aspartate Amino Transf (AST/SGOT) 26 U/L (15-37) Alanine Aminotransferase (ALT/SGPT) 17 U/L (12-78) Alkaline Phosphatase 97 U/L (46-116) Troponin I 0.000 ng/mL (0.000-0.056) Total Protein 7.7 G/DL (6.4-8.2) Albumin 2.7 G/DL (3.4-5.0) L Globulin 5.0 g/dL Albumin/Globulin Ratio 0.5 (1.0-2.7) L Intake and Output 06/19/18 06/20/18 19:00 07:00 Intake Total 643.3 ml 480 ml Output Total 300 ml Balance 643.3 ml 180 ml Intake Oral 240 ml 480 ml IV Total 403.3 ml Output Urine Total 300 ml # Voids 1 Assessment/Plan Problem List: (1) Seizure disorder Assessment & Plan: Continue Keppra (2) Chest pain (3) CAD (coronary artery disease) Assessment & Plan: Needs cardiac cath. Await transfer to [facility] [place]-see cardiology note. (4) HTN (hypertension) Assessment & Plan: Continue amlodipine and metoprolol (5) CHF (congestive heart failure) (6) SOB (shortness of breath) Status: progressing Shantanu Reyna MD Jun 20, 2018 13:53
[2018-06-20] MEDS ORDERED: Vancomycin 750mg/NS 250ml IVPB SCH (17:00)
[2018-06-21] MEDS: Morphine Sulfate 4mg/ml Inj (IV USE ONLY) IVP PRN ×6 (02:40→21:34)
[2018-06-21 02:45] VITALS: BP 115/64
[2018-06-21 04:00] VITALS: BP 115/64
[2018-06-21 08:00] VITALS: BP 121/62
--- NOTE | 2018-06-21 08:18 | Pulmonology Progress Note ---
Assessment/Plan Assessment/Plan ASSESSMENT Chest pain Hypertensive urgency CAD, s/p CABG 2, status post angioplasty 2 History of TN 2 COPD Breakthrough seizure with hx of seizure disorder Chronic back pain Severe protein calorie malnutrition Chronic renal insufficiency R lower leg ulcer n/v/diarrhea possible gastroenteritis PLAN OF CARE Telemetry Serial troponin negative , EKG no acute ischemic changes, thus r/o for acute TN cardio follows patient refused stress test stating there were false negative APT with Plavix, (off ASA due to GI distress), Ranexa, isosorbide (patient allergic to nitroglycerin ) continue statin Beta rasta Blood pressure management with calcium channel rasta and beta rasta, optimize further as needed DVT/GI prophylaxis O2 titrate, HHN prn, Theophylline, Venous duplex BLE seizure precautions, continue Keppra, encourage 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 renal parameters, avoid nephrotoxic patient with known hx of gastritis, esophagitis, GI prophylaxis tolerated diet , probably mild gastroenteritis check stool for C dif if diarrhea continues symptomatic care, a/emetic prn dietary eval for recs to improve nutr status pain management RLE ulcer wound care, no evidence of infection ID follows, recommends to keep off abx and observe closely Cardio recommended transfer to [facility] for cardiac catheterization since patient declining stress test and had multiply admission for chest pain discussed with pt, he declined [facility] hospitalization but will concur with [facility] transfer , arrangement in process case discussed and evaluated by supervising physician Subjective Allergies: Coded Allergies: EGG (Verified Allergy, Unknown, 09/22/15) MEPERIDINE (Verified Allergy, Unknown, 12/21/10) NITROGLYCERIN (Verified Allergy, Unknown, hives, 02/18/17) Subjective no chest pain, no SOB pulse ox stable on RA diarrhea stopped Objective Last 24 Hour Vital Signs Date Time Temp Pulse Resp B/P (MAP) Pulse Ox O2 Delivery O2 Flow Rate FiO2 06/21/18 07:55 76 18 Room Air 21 06/21/18 04:00 80 06/21/18 04:00 98.1 78 18 115/64 (81) 95 98.1 06/21/18 02:45 98.1 78 18 115/64 (81) 95 98.1 06/21/18 00:00 75 06/20/18 23:27 97.7 81 18 110/67 (81) 95 97.7 06/20/18 21:00 Room Air 06/20/18 20:00 98.4 77 18 110/62 (78) 93 98.4 06/20/18 20:00 79 06/20/18 19:56 84 20 Room Air 21 06/20/18 16:00 98.3 86 18 105/60 (75) 95 98.3 85 06/20/18 16:00 83 06/20/18 12:00 82 06/20/18 11:44 98.1 85 18 104/69 (81) 96 98.1 85 06/20/18 09:00 Room Air 06/20/18 08:59 130/70 06/20/18 08:59 81 130/70 06/20/18 08:59 81 130/70 Intake and Output 06/20/18 06/21/18 19:00 07:00 Intake Total 580 ml 120 ml Output Total 600 ml Balance -20 ml 120 ml Intake Oral 360 ml 120 ml IV Total 220 ml Output Urine Total 600 ml Objective General Appearance: no apparent distress, alert Lines, tubes and drains: peripheral HEENT: normocephalic, atraumatic, mucous membranes moist Neck: non-tender, supple Respiratory/Chest: lungs clear - with decreased air exchange , no accessory muscle use Cardiovascular/Chest: normal peripheral pulses, normal rate, regular rhythm - SR on tele Abdomen: normal bowel sounds, non tender, soft Extremities: non-tender, no calf tenderness, normal capillary refill Skin Exam: warm/dry Neurologic: abnormal gait, alert, oriented x 3, responsive Musculoskeletal: atrophy - BLE Current Medications Medications (Trade) Dose Ordered Sig/Aminata Route PRN Reason Start Time Stop Time Status Last Admin Dose Admin Acetaminophen (Tylenol) 650 mg Q4H PRN ORAL fever 06/19/18 14:00 07/19/18 13:59 Albuterol/ Ipratropium (Albuterol/ Ipratropium) 3 ml EVERY 4 HOURS PRN HHN Shortness of Breath 06/19/18 14:00 06/24/18 13:59 Amlodipine Besylate (Norvasc) 10 mg DAILY ORAL 06/20/18 09:00 07/20/18 08:59 06/20/18 08:59 Clopidogrel Bisulfate (Plavix) 75 mg DAILY ORAL 06/20/18 09:00 07/20/18 08:59 06/20/18 08:59 Dextrose (Dextrose 50%) 25 ml STAT PRN IV Hypoglycemia 06/20/18 15:00 07/20/18 14:59 Dextrose (Dextrose 50%) 50 ml STAT PRN IV Hypoglycemia 06/20/18 15:00 07/19/18 13:59 Heparin Sodium (Porcine) (Heparin 5000 units/ml) 5,000 units EVERY 12 HOURS SUBQ 06/19/18 21:00 07/19/18 20:59 Isosorbide Mononitrate (Imdur) 30 mg DAILY ORAL 06/20/18 09:00 07/20/18 08:59 06/20/18 08:59 Levetiracetam (Keppra) 500 mg DAILY ORAL 06/20/18 09:00 07/20/18 08:59 06/20/18 08:59 Metoprolol Succinate (Toprol XL) 50 mg BID ORAL 06/19/18 18:00 07/19/18 17:59 06/20/18 08:59 Mirtazapine (Remeron) 15 mg BEDTIME ORAL 06/19/18 21:00 07/19/18 20:59 06/20/18 20:18 Morphine Sulfate (Morphine Sulfate) 4 mg Q3H PRN IVP For Pain 06/19/18 16:00 06/26/18 15:59 06/21/18 02:40 Ondansetron HCl (Zofran) 4 mg Q6H PRN IVP Nausea & Vomiting 06/19/18 14:00 07/19/18 13:59 Pantoprazole (Protonix) 40 mg DAILY ORAL 06/19/18 18:15 07/19/18 18:14 06/20/18 08:59 Polyethylene Glycol (Miralax) 17 gm DAILYPRN PRN ORAL Constipation 06/19/18 14:00 07/19/18 13:59 Ranolazine (Ranexa ER 500mg) 500 mg Q12HR ORAL 06/19/18 21:00 07/19/18 20:59 06/20/18 20:18 Temazepam (Restoril) 15 mg HSPRN PRN ORAL Insomnia 06/19/18 21:00 06/26/18 20:59 Theophylline (Wilfrido-Dur) 100 mg EVERY 12 HOURS ORAL 06/19/18 21:00 07/19/18 20:59 7/28/18 20:18 Kristine Black NP Jun 21, 2018 08:18
[2018-06-21] MEDS: Ranolazine 500mg tab ORAL SCH ×2 (08:23→20:46)
[2018-06-21] MEDS: Imdur 30mg tab ORAL SCH (08:23)
[2018-06-21] MEDS: Metoprolol Succinate XL 50mg tab ORAL SCH ×2 (08:24→18:03)
[2018-06-21] MEDS: Heparin 5000 units/ml inj SUBQ SCH ×2 (08:24→20:47)
[2018-06-21] MEDS: Theophylline ER 100mg ORAL SCH ×2 (08:24→20:46)
[2018-06-21 12:00] VITALS: BP 110/63
--- NOTE | 2018-06-21 14:18 | Internal Med Progress Note ---
Subjective Date of Service: Jun 21, 2018 Physician Name Shantanu Reyna Attending Physician Phil Wright MD Current Medications Medications (Trade) Dose Ordered Sig/Amniata Route PRN Reason Start Time Stop Time Status Last Admin Dose Admin Acetaminophen (Tylenol) 650 mg Q4H PRN ORAL fever 06/19/18 14:00 07/19/18 13:59 Albuterol/ Ipratropium (Albuterol/ Ipratropium) 3 ml EVERY 4 HOURS PRN HHN Shortness of Breath 06/19/18 14:00 06/24/18 13:59 Amlodipine Besylate (Norvasc) 10 mg DAILY ORAL 06/20/18 09:00 07/20/18 08:59 06/21/18 08:24 Clopidogrel Bisulfate (Plavix) 75 mg DAILY ORAL 06/20/18 09:00 07/20/18 08:59 06/21/18 08:23 Dextrose (Dextrose 50%) 25 ml STAT PRN IV Hypoglycemia 06/20/18 15:00 07/20/18 14:59 Dextrose (Dextrose 50%) 50 ml STAT PRN IV Hypoglycemia 06/20/18 15:00 07/19/18 13:59 Heparin Sodium (Porcine) (Heparin 5000 units/ml) 5,000 units EVERY 12 HOURS SUBQ 06/19/18 21:00 07/19/18 20:59 Isosorbide Mononitrate (Imdur) 30 mg DAILY ORAL 06/20/18 09:00 07/20/18 08:59 06/21/18 08:23 Levetiracetam (Keppra) 500 mg DAILY ORAL 06/20/18 09:00 07/20/18 08:59 06/21/18 08:23 Metoprolol Succinate (Toprol XL) 50 mg BID ORAL 06/19/18 18:00 07/19/18 17:59 06/21/18 08:24 Mirtazapine (Remeron) 15 mg BEDTIME ORAL 06/19/18 21:00 07/19/18 20:59 06/20/18 20:18 Morphine Sulfate (Morphine Sulfate) 4 mg Q3H PRN IVP For Pain 06/19/18 16:00 06/26/18 15:59 06/21/18 11:48 Ondansetron HCl (Zofran) 4 mg Q6H PRN IVP Nausea & Vomiting 06/19/18 14:00 07/19/18 13:59 Pantoprazole (Protonix) 40 mg DAILY ORAL 06/19/18 18:15 07/19/18 18:14 06/21/18 08:22 Polyethylene Glycol (Miralax) 17 gm DAILYPRN PRN ORAL Constipation 06/19/18 14:00 07/19/18 13:59 Ranolazine (Ranexa ER 500mg) 500 mg Q12HR ORAL 06/19/18 21:00 07/19/18 20:59 06/21/18 08:23 Temazepam (Restoril) 15 mg HSPRN PRN ORAL Insomnia 06/19/18 21:00 06/26/18 20:59 Theophylline (Wilfrido-Dur) 100 mg EVERY 12 HOURS ORAL 06/19/18 21:00 07/19/18 20:59 06/21/18 08:24 Allergies: Coded Allergies: EGG (Verified Allergy, Unknown, 09/22/15) MEPERIDINE (Verified Allergy, Unknown, 12/21/10) NITROGLYCERIN (Verified Allergy, Unknown, hives, 02/18/17) ROS Limited/Unobtainable: No Constitutional: Reports: no symptoms HEENT: Reports: no symptoms Cardiovascular: Reports: no symptoms Respiratory: Reports: no symptoms Gastrointestinal/Abdominal: Reports: no symptoms Genitourinary: Reports: no symptoms 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: Reports: no symptoms Subjective 67 YO M admitted with chest pain. Await transfer to [facility] [place] for cardiac cath. Cover for Int Med-Dr Wright. Objective Last Vital Signs Date Time Temp Pulse Resp B/P (MAP) Pulse Ox O2 Delivery O2 Flow Rate FiO2 06/21/18 09:00 Room Air 06/21/18 08:24 80 121/62 06/21/18 08:00 98.0 18 95 98.0 06/21/18 07:55 21 Microbiology Date/Time Source Procedure Growth Status 06/19/18 15:00 Nasal Nares MRSA Culture - Final NO METHICILLIN RESISTANT STAPH AUREUS... Complete Intake and Output 06/20/18 06/21/18 19:00 07:00 Intake Total 580 ml 120 ml Output Total 600 ml Balance -20 ml 120 ml Intake Oral 360 ml 120 ml IV Total 220 ml Output Urine Total 600 ml Objective General Appearance: WD/WN, no apparent distress, alert EENT: PERRL/EOMI, normal ENT inspection Neck: non-tender, normal alignment, supple, normal inspection Cardiovascular: normal peripheral pulses, normal rate, regular rhythm, no gallop/murmur, no JVD Respiratory/Chest: chest wall non-tender, lungs clear, normal breath sounds, no respiratory distress, no accessory muscle use Abdomen: normal bowel sounds, non tender, soft, no organomegaly, no mass Extremities: normal range of motion, non-tender Edema: trace edema, mild edema 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 Await transfer to [facility]-see cardiology note. (4) HTN (hypertension) Assessment & Plan: Continue amlodipine and metoprolol (5) CHF (congestive heart failure) (6) SOB (shortness of breath) Status: not improved Shantanu Reyna MD Jun 21, 2018 14:18
--- NOTE | 2018-06-21 14:52 | Cardiology Report ---
APPROVED REPORT EKG Measurement Heart [id number] Normal sinus rhythm Biatrial enlargement Anteroseptal infarct, age undetermined Abnormal ECG
[2018-06-21 16:00] VITALS: BP 122/57
--- NOTE | 2018-06-21 17:45 | Cardiology Progress Note ---
Assessment/Plan Status: stable Assessment/Plan Assessment 1. Hypertension. 2. Coronary artery bypass graft in 2009 and again in 2011, Coronary angioplasty with stent placement x2. 3. History of myocardial infarction x2. 4. Chronic obstructive pulmonary disease. 5. Seizure disorder. Plan -Plavix -nitro prn -Statin -Ranexa -Metoprolol -recommend cardiac cath to evaluate anatomy given multiple admissions and patient declining stress tests stating they are false negatives -Would arrange transfer to [facility] for cath Subjective Cardiovascular: Reports: no symptoms Respiratory: Reports: no symptoms Gastrointestinal/Abdominal: Reports: no symptoms Genitourinary: Reports: no symptoms Subjective No acute events, no complaints, resting comfortably, agrees to transfer to [facility] Objective Last 24 Hour Vital Signs Date Time Temp Pulse Resp B/P (MAP) Pulse Ox O2 Delivery O2 Flow Rate FiO2 06/21/18 16:00 83 06/21/18 16:00 98.9 84 18 122/57 (78) 96 98.9 06/21/18 12:00 82 06/21/18 12:00 98.2 86 18 110/63 (79) 96 98.2 06/21/18 09:00 Room Air 06/21/18 08:24 80 121/62 06/21/18 08:24 80 121/62 06/21/18 08:23 121/62 06/21/18 08:00 98.0 81 18 121/62 (81) 95 98.0 06/21/18 08:00 80 06/21/18 07:55 76 18 Room Air 21 06/21/18 04:00 80 06/21/18 04:00 98.1 78 18 115/64 (81) 95 98.1 06/21/18 02:45 98.1 78 18 115/64 (81) 95 98.1 06/21/18 00:00 75 06/20/18 23:27 97.7 81 18 110/67 (81) 95 97.7 06/20/18 21:00 Room Air 06/20/18 20:00 98.4 77 18 110/62 (78) 93 98.4 06/20/18 20:00 79 06/20/18 19:56 84 20 Room Air 21 General Appearance: no apparent distress EENT: PERRL/EOMI, normal ENT inspection Neck: non-tender, normal alignment Rhythm: NSR Cardiovascular: normal peripheral pulses Respiratory/Chest: chest wall non-tender, lungs clear Abdomen: normal bowel sounds, non tender Extremities: normal range of motion, non-tender 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 Complete DavidsoAdonis barreto M.D. Jun 21, 2018 17:44
[2018-06-21 20:00] VITALS: BP 116/56
[2018-06-22] VITALS: BP 112/63
[2018-06-22] MEDS: Morphine Sulfate 4mg/ml Inj (IV USE ONLY) IVP PRN ×7 (00:31→20:56)
[2018-06-22 04:00] VITALS: BP 111/63
[2018-06-22 07:02] LABS: BASOPHILS % (AUTO) 1.7 % (0.0-2.0); EOSINOPHILS % (AUTO) 5.7 % (0.0-3.0); HEMATOCRIT 39.1 % (42.0-52.0); HEMOGLOBIN 12.3 G/DL (14.2-18.0); LYMPHOCYTES % (AUTO) 19.6 % (20.0-45.0); MEAN CORPUSCULAR VOLUME 82 FL (80-99); PLATELET COUNT 241 K/UL (150-450); RED BLOOD COUNT 4.74 M/UL (4.70-6.10); RED CELL DISTRIBUTION WIDTH 16.1 % (11.6-14.8); WHITE BLOOD COUNT 8.8 K/UL (4.8-10.8)
[2018-06-22 07:16] LABS: ANION GAP 7 mmol/L (5-15); BLOOD UREA NITROGEN 18 mg/dL (7-18); CALCIUM 8.4 MG/DL (8.5-10.1); CARBON DIOXIDE 24 MMOL/L (21-32); CHLORIDE 103 MMOL/L (98-107); CREATININE 1.4 MG/DL (0.55-1.30); POTASSIUM 5.1 MMOL/L (3.5-5.1); SODIUM 134 MMOL/L (136-145)
[2018-06-22 08:00] VITALS: BP 117/56
[2018-06-22] MEDS: Theophylline ER 100mg ORAL SCH ×2 (08:30→20:55)
[2018-06-22] MEDS: Ranolazine 500mg tab ORAL SCH ×2 (08:30→20:55)
[2018-06-22] MEDS: Imdur 30mg tab ORAL SCH (08:31)
[2018-06-22] MEDS: Metoprolol Succinate XL 50mg tab ORAL SCH ×2 (08:31→17:08)
[2018-06-22] MEDS: Heparin 5000 units/ml inj SUBQ SCH ×2 (08:37→20:56)
--- NOTE | 2018-06-22 09:13 | Infectious Diseases Prog Note ---
Assessment/Plan Assessment/Plan Assessment/Plan Abx: IV Vanco 06/19- Cefepime 06/19- Assessment: Breakthrough Seizure N/V, diarrhea- now resolved- probably viral gastroenteritis Afebrile, no leukocytosis -CXR: no acute process Recent COPD exacerbation 05/2018 Recurrent Leg cellulitis, s/p Rx- Still no present signs of cellulitis -R ankle cellulitis early 05/2018, s/p Rx -B/l leg cellulitis 03/2018, s/p Rx Chronic R>L edema R Ankle chronic ulcer- healing, no signs of infection -R ankle xray 05/31/2018: Severe post fracture deformity of the ankle as described above. No significant change. -R foot xray 03/2018: No acute injury identified. Abnormal fifth MPJ joint which may be on the basis of previous surgery/trauma or old erosive process. Osteoporosis -a. duplex: A mild (10-30%) stenosis is seen in the mid superficial femoral artery. There is no evidence of occlusion within this segment. HTN severe malnutrition MDD tobacco abuse seizure disorder emphysema DM2 CAD s/p CABG COPD -recent exacerbation requiring admission 02/2018 bedbound Plan: Monitor off abx - IV vanco and cefepime 06/19/18 - 06/20/18 -06/10 SP Zosyn #2 -06/03 SP Keflex #1 -06/02 SP Ancef #6 -05/16 SP Ancef # 5 -05/12 SP Cefepime and Zosyn x1 -5/3 SP PO Levaquin #3 -03/23/18 SP Zosyn #2 -f/u cx -Monitor CBC/CMP, temperatures -wound care per hosp protocol Thank you for this consultation. Will continue to follow along with you. Subjective Allergies: Coded Allergies: EGG (Verified Allergy, Unknown, 09/22/15) MEPERIDINE (Verified Allergy, Unknown, 12/21/10) NITROGLYCERIN (Verified Allergy, Unknown, hives, 02/18/17) Subjective Patient still reports B/L Lower extremity pain. No N/V/D or fevers Objective Vital Signs Last 24 Hour Vital Signs Date Time Temp Pulse Resp B/P (MAP) Pulse Ox O2 Delivery O2 Flow Rate FiO2 06/22/18 08:57 Room Air 06/22/18 08:31 117/56 06/22/18 08:31 73 117/56 06/22/18 08:31 73 117/56 06/22/18 08:00 98.1 73 19 117/56 (76) 95 98.1 06/22/18 08:00 71 06/22/18 04:00 72 06/22/18 04:00 98.8 73 19 111/63 (79) 96 98.8 06/22/18 03:52 99.4 06/22/18 00:00 78 06/22/18 00:00 99.4 81 19 112/63 (79) 94 99.4 06/21/18 21:00 Room Air 06/21/18 20:00 99.3 81 19 116/56 (76) 94 99.3 06/21/18 19:58 86 06/21/18 19:55 80 18 Room Air 21 06/21/18 18:03 83 122/57 06/21/18 16:00 83 06/21/18 16:00 98.9 84 18 122/57 (78) 96 98.9 06/21/18 12:00 82 06/21/18 12:00 98.2 86 18 110/63 (79) 96 98.2 Height (Feet): 6 Height (Inches): 1.00 Weight (Pounds): 130 Objective General Appearance: no apparent distress, alert HEENT: normocephalic, atraumatic, mucous membranes moist Neck: non-tender, supple Respiratory/Chest: lungs clear - with decreased air exchange Cardiovascular/Chest: normal peripheral pulses, normal rate, regular rhythm - SR on tele Abdomen: normal bowel sounds, non tender, soft Extremities: TTP blow knee B/L, Right foot in bandage. No purulent drainage. normal capillary refill Skin Exam: warm/dry Neurologic: abnormal gait, alert, oriented x 3, responsive Musculoskeletal: atrophy - BLE Microbiology Date/Time Source Procedure Growth Status 06/19/18 15:00 Nasal Nares MRSA Culture - Final NO METHICILLIN RESISTANT STAPH AUREUS... Complete Laboratory Tests Test 06/22/18 06:25 White Blood Count 8.8 K/UL (4.8-10.8) Red Blood Count 4.74 M/UL (4.70-6.10) Hemoglobin 12.3 G/DL (14.2-18.0) L Hematocrit 39.1 % (42.0-52.0) L Mean Corpuscular Volume 82 FL (80-99) Mean Corpuscular Hemoglobin 25.9 PG (27.0-31.0) L Mean Corpuscular Hemoglobin Concent 31.4 G/DL (32.0-36.0) L Red Cell Distribution Width 16.1 % (11.6-14.8) H Platelet Count 241 K/UL (150-450) Mean Platelet Volume 6.7 FL (6.5-10.1) Neutrophils (%) (Auto) 61.0 % (45.0-75.0) Lymphocytes (%) (Auto) 19.6 % (20.0-45.0) L Monocytes (%) (Auto) 12.0 % (1.0-10.0) H Eosinophils (%) (Auto) 5.7 % (0.0-3.0) H Basophils (%) (Auto) 1.7 % (0.0-2.0) Sodium Level 134 MMOL/L (136-145) L Potassium Level 5.1 MMOL/L (3.5-5.1) Chloride Level 103 MMOL/L (98-107) Carbon Dioxide Level 24 MMOL/L (21-32) Anion Gap 7 mmol/L (5-15) Blood Urea Nitrogen 18 mg/dL (7-18) Creatinine 1.4 MG/DL (0.55-1.30) H Estimat Glomerular Filtration Rate > 60 mL/min (>60) Glucose Level 101 MG/DL (74-106) Calcium Level 8.4 MG/DL (8.5-10.1) L Current Medications Medications (Trade) Dose Ordered Sig/Aminata Route PRN Reason Start Time Stop Time Status Last Admin Dose Admin Acetaminophen (Tylenol) 650 mg Q4H PRN ORAL fever 06/19/18 14:00 07/19/18 13:59 Albuterol/ Ipratropium (Albuterol/ Ipratropium) 3 ml EVERY 4 HOURS PRN HHN Shortness of Breath 06/19/18 14:00 06/24/18 13:59 Amlodipine Besylate (Norvasc) 10 mg DAILY ORAL 06/20/18 09:00 07/20/18 08:59 06/22/18 08:31 Clopidogrel Bisulfate (Plavix) 75 mg DAILY ORAL 06/20/18 09:00 07/20/18 08:59 06/22/18 08:31 Dextrose (Dextrose 50%) 25 ml STAT PRN IV Hypoglycemia 06/20/18 15:00 07/20/18 14:59 Dextrose (Dextrose 50%) 50 ml STAT PRN IV Hypoglycemia 06/20/18 15:00 07/19/18 13:59 Heparin Sodium (Porcine) (Heparin 5000 units/ml) 5,000 units EVERY 12 HOURS SUBQ 06/19/18 21:00 07/19/18 20:59 Isosorbide Mononitrate (Imdur) 30 mg DAILY ORAL 06/20/18 09:00 07/20/18 08:59 06/22/18 08:31 Levetiracetam (Keppra) 500 mg DAILY ORAL 06/20/18 09:00 07/20/18 08:59 06/22/18 08:31 Metoprolol Succinate (Toprol XL) 50 mg BID ORAL 06/19/18 18:00 07/19/18 17:59 06/22/18 08:31 Mirtazapine (Remeron) 15 mg BEDTIME ORAL 06/19/18 21:00 07/19/18 20:59 06/21/18 20:46 Morphine Sulfate (Morphine Sulfate) 4 mg Q3H PRN IVP For Pain 06/19/18 16:00 06/26/18 15:59 06/22/18 08:32 Ondansetron HCl (Zofran) 4 mg Q6H PRN IVP Nausea & Vomiting 06/19/18 14:00 07/19/18 13:59 Pantoprazole (Protonix) 40 mg DAILY ORAL 06/19/18 18:15 07/19/18 18:14 06/22/18 08:30 Polyethylene Glycol (Miralax) 17 gm DAILYPRN PRN ORAL Constipation 06/19/18 14:00 07/19/18 13:59 Ranolazine (Ranexa ER 500mg) 500 mg Q12HR ORAL 06/19/18 21:00 07/19/18 20:59 06/22/18 08:30 Temazepam (Restoril) 15 mg HSPRN PRN ORAL Insomnia 06/19/18 21:00 06/26/18 20:59 Theophylline (Wilfrido-Dur) 100 mg EVERY 12 HOURS ORAL 06/19/18 21:00 07/19/18 20:59 06/22/18 08:30 Adonis Lozyoa M.D. Jun 22, 2018 09:13
--- NOTE | 2018-06-22 10:52 | Consultation ---
History of Present Illness General Date patient seen: Jun 22, 2018 Chief Complaint: Chest Pain Referring physician: dr Wright Reason for Consultation: COPD Present Illness HPI 67-year-old male, with hx of depression and insomnia presents with chief complaint of chest pain and seizure. the pt is requesting higher dosage of remeron and stated "don't worry i wont hurt myself. it is what it is. " the pt is irritable and has low appetite. no si/hi Allergies: Coded Allergies: EGG (Verified Allergy, Unknown, 09/22/15) MEPERIDINE (Verified Allergy, Unknown, 12/21/10) NITROGLYCERIN (Verified Allergy, Unknown, hives, 02/18/17) Medication History Scheduled Amlodipine Besylate* (Amlodipine Besylate*), 10 MG ORAL DAILY, (Reported) Cephalexin* (Keflex*), 500 MG ORAL EVERY 8 HOURS, (Reported) Clopidogrel Bisulfate* (Plavix*), 75 MG ORAL DAILY, (Reported) Hydromorphone Hcl (Dilaudid), 2 MG PO EVERY 4 HOURS Levetiracetam (Keppra), 500 MG ORAL DAILY, (Reported) Metoprolol Succinate* (Metoprolol Succinate*), 50 MG ORAL BID, (Reported) Mirtazapine* (Remeron*), 15 MG ORAL BEDTIME, (Reported) Ranitidine Hcl* (Zantac*), 150 MG ORAL Q12HR Theophylline (Theodur*), 100 MG ORAL EVERY 12 HOURS Scheduled PRN Albuterol Sulfate (Ventolin Hfa), 1 PUFF INH EVERY 6 HOURS PRN Docusate Sodium* (Colace*), 100 MG ORAL DAILY PRN for Constipation, (Reported) Ondansetron Hcl* (Zofran*), 8 MG ORAL Q6H PRN for Nausea & Vomiting, (Reported) Patient History Limited by: medical condition History Provided By: Patient, Medical Record, PMD Healthcare decision maker Resuscitation status Advanced Directive on File No Past Medical/Surgical History Past Medical/Surgical History: (1) Acute encephalopathy (2) Odynophagia (3) Dehydration (4) Hyperkalemia (5) Edema (6) Renal failure (7) Syncope (8) Acute bronchitis (9) Cardiac dysrhythmia (10) Bronchitis (11) Pneumonia (12) Chronic pain (13) Diabetic foot ulcer (14) Atypical chest pain (15) ACS (acute coronary syndrome) (16) ACS (acute coronary syndrome) (17) ACS (acute coronary syndrome) (18) ACS (acute coronary syndrome) (19) ACS (acute coronary syndrome) (20) ACS (acute coronary syndrome) (21) ACS (acute coronary syndrome) (22) ACS (acute coronary syndrome) (23) Right hip pain (24) COPD exacerbation (25) COPD exacerbation (26) COPD exacerbation (27) Peripheral arterial disease (28) FTT (failure to thrive) in adult (29) Acute on chronic renal failure (30) History of heart attack (31) Hip dislocation, right (32) Osteomyelitis of right leg (33) Swelling of ankle joint, right (34) Cellulitis of right leg (35) Chronic ulcer of right leg (36) Injury of lower extremity (37) Intractable back pain (38) Chest pain with minimal risk of acute coronary syndrome (39) Decubitus ulcer, ankle, right, unstageable (40) Closed fracture of tibia and fibula with malunion (41) Pain of right lower extremity (42) Cellulitis of right ankle (43) Ulcer of right lower leg (44) COPD exacerbation (45) Chest pain (46) Nonhealing ulcer of right lower extremity (47) Esophagitis (48) Shingles (49) CAD (coronary artery disease) (50) Gastritis (51) Gastroenteritis (52) Hypothyroidism (53) Emphysema lung (54) Seizure disorder (55) Peripheral vascular disease (56) ATN (acute tubular necrosis) (57) Severe malnutrition (58) HTN (hypertension) (59) HTN (hypertension) (60) Vikki esophagitis (61) Cellulitis, leg (62) DM (diabetes mellitus) (63) Diabetes mellitus type II, uncontrolled (64) COPD exacerbation (65) Osteomyelitis of right lower extremity (66) SOB (shortness of breath) (67) CHF (congestive heart failure) (68) Chest pain Review of Systems Psychiatric: Reports: prior hx, anxiety, depressed feelings, emotional problems Physical Exam General Appearance: no apparent distress, alert Neurologic: oriented x 3, responsive, depressed affect Last 24 Hour Vital Signs Date Time Temp Pulse Resp B/P (MAP) Pulse Ox O2 Delivery O2 Flow Rate FiO2 06/22/18 09:34 78 20 Room Air 21 06/22/18 08:57 Room Air 06/22/18 08:31 117/56 06/22/18 08:31 73 117/56 06/22/18 08:31 73 117/56 06/22/18 08:00 98.1 73 19 117/56 (76) 95 98.1 06/22/18 08:00 71 06/22/18 04:00 72 06/22/18 04:00 98.8 73 19 111/63 (79) 96 98.8 06/22/18 03:52 99.4 06/22/18 00:00 78 06/22/18 00:00 99.4 81 19 112/63 (79) 94 99.4 06/21/18 21:00 Room Air 06/21/18 20:00 99.3 81 19 116/56 (76) 94 99.3 06/21/18 19:58 86 06/21/18 19:55 80 18 Room Air 21 06/21/18 18:03 83 122/57 06/21/18 16:00 83 06/21/18 16:00 98.9 84 18 122/57 (78) 96 98.9 06/21/18 12:00 82 06/21/18 12:00 98.2 86 18 110/63 (79) 96 98.2 Intake and Output 06/21/18 06/22/18 19:00 07:00 Intake Total 480 ml Output Total 1050 ml 400 ml Balance -570 ml -400 ml Intake Oral 480 ml Output Urine Total 1050 ml 400 ml # Voids 1 3 Laboratory Tests Test 06/22/18 06:25 White Blood Count 8.8 K/UL (4.8-10.8) Red Blood Count 4.74 M/UL (4.70-6.10) Hemoglobin 12.3 G/DL (14.2-18.0) L Hematocrit 39.1 % (42.0-52.0) L Mean Corpuscular Volume 82 FL (80-99) Mean Corpuscular Hemoglobin 25.9 PG (27.0-31.0) L Mean Corpuscular Hemoglobin Concent 31.4 G/DL (32.0-36.0) L Red Cell Distribution Width 16.1 % (11.6-14.8) H Platelet Count 241 K/UL (150-450) Mean Platelet Volume 6.7 FL (6.5-10.1) Neutrophils (%) (Auto) 61.0 % (45.0-75.0) Lymphocytes (%) (Auto) 19.6 % (20.0-45.0) L Monocytes (%) (Auto) 12.0 % (1.0-10.0) H Eosinophils (%) (Auto) 5.7 % (0.0-3.0) H Basophils (%) (Auto) 1.7 % (0.0-2.0) Sodium Level 134 MMOL/L (136-145) L Potassium Level 5.1 MMOL/L (3.5-5.1) Chloride Level 103 MMOL/L (98-107) Carbon Dioxide Level 24 MMOL/L (21-32) Anion Gap 7 mmol/L (5-15) Blood Urea Nitrogen 18 mg/dL (7-18) Creatinine 1.4 MG/DL (0.55-1.30) H Estimat Glomerular Filtration Rate > 60 mL/min (>60) Glucose Level 101 MG/DL (74-106) Calcium Level 8.4 MG/DL (8.5-10.1) L Height (Feet): 6 Height (Inches): 1.00 Weight (Pounds): 130 Medications Current Medications Medications (Trade) Dose Ordered Sig/Aminata Route PRN Reason Start Time Stop Time Status Last Admin Dose Admin Acetaminophen (Tylenol) 650 mg Q4H PRN ORAL fever 06/19/18 14:00 07/19/18 13:59 Albuterol/ Ipratropium (Albuterol/ Ipratropium) 3 ml EVERY 4 HOURS PRN HHN Shortness of Breath 06/19/18 14:00 06/24/18 13:59 Amlodipine Besylate (Norvasc) 10 mg DAILY ORAL 06/20/18 09:00 07/20/18 08:59 06/22/18 08:31 Clopidogrel Bisulfate (Plavix) 75 mg DAILY ORAL 06/20/18 09:00 07/20/18 08:59 06/22/18 08:31 Dextrose (Dextrose 50%) 25 ml STAT PRN IV Hypoglycemia 06/20/18 15:00 07/20/18 14:59 Dextrose (Dextrose 50%) 50 ml STAT PRN IV Hypoglycemia 06/20/18 15:00 07/19/18 13:59 Heparin Sodium (Porcine) (Heparin 5000 units/ml) 5,000 units EVERY 12 HOURS SUBQ 06/19/18 21:00 07/19/18 20:59 Isosorbide Mononitrate (Imdur) 30 mg DAILY ORAL 06/20/18 09:00 07/20/18 08:59 06/22/18 08:31 Levetiracetam (Keppra) 500 mg DAILY ORAL 06/20/18 09:00 07/20/18 08:59 06/22/18 08:31 Metoprolol Succinate (Toprol XL) 50 mg BID ORAL 06/19/18 18:00 07/19/18 17:59 06/22/18 08:31 Mirtazapine (Remeron) 15 mg BEDTIME ORAL 06/19/18 21:00 07/19/18 20:59 06/21/18 20:46 Morphine Sulfate (Morphine Sulfate) 4 mg Q3H PRN IVP For Pain 06/19/18 16:00 06/26/18 15:59 06/22/18 08:32 Ondansetron HCl (Zofran) 4 mg Q6H PRN IVP Nausea & Vomiting 06/19/18 14:00 07/19/18 13:59 Pantoprazole (Protonix) 40 mg DAILY ORAL 06/19/18 18:15 07/19/18 18:14 06/22/18 08:30 Polyethylene Glycol (Miralax) 17 gm DAILYPRN PRN ORAL Constipation 06/19/18 14:00 07/19/18 13:59 Ranolazine (Ranexa ER 500mg) 500 mg Q12HR ORAL 06/19/18 21:00 07/19/18 20:59 06/22/18 08:30 Temazepam (Restoril) 15 mg HSPRN PRN ORAL Insomnia 06/19/18 21:00 06/26/18 20:59 Theophylline (Wilfrido-Dur) 100 mg EVERY 12 HOURS ORAL 06/19/18 21:00 07/19/18 20:59 06/22/18 08:30 Assessment/Plan Assessment/Plan MDD Anxiety d/o increase remeron 60mg qhs provided abdulaziz/Rachael Huynh MD Jun 22, 2018 10:52
--- NOTE | 2018-06-22 11:27 | Cardiac Electrophysiology PN ---
Subjective Subjective Invasive Cardiology consult dictated [id number] Objective Last 24 Hour Vital Signs Date Time Temp Pulse Resp B/P (MAP) Pulse Ox O2 Delivery O2 Flow Rate FiO2 06/22/18 09:34 78 20 Room Air 21 06/22/18 08:57 Room Air 06/22/18 08:31 117/56 06/22/18 08:31 73 117/56 06/22/18 08:31 73 117/56 06/22/18 08:00 98.1 73 19 117/56 (76) 95 98.1 06/22/18 08:00 71 06/22/18 04:00 72 06/22/18 04:00 98.8 73 19 111/63 (79) 96 98.8 06/22/18 03:52 99.4 06/22/18 00:00 78 06/22/18 00:00 99.4 81 19 112/63 (79) 94 99.4 06/21/18 21:00 Room Air 06/21/18 20:00 99.3 81 19 116/56 (76) 94 99.3 06/21/18 19:58 86 06/21/18 19:55 80 18 Room Air 21 06/21/18 18:03 83 122/57 06/21/18 16:00 83 06/21/18 16:00 98.9 84 18 122/57 (78) 96 98.9 06/21/18 12:00 82 06/21/18 12:00 98.2 86 18 110/63 (79) 96 98.2 Intake and Output 06/21/18 06/22/18 19:00 07:00 Intake Total 480 ml Output Total 1050 ml 400 ml Balance -570 ml -400 ml Intake Oral 480 ml Output Urine Total 1050 ml 400 ml # Voids 1 3 Laboratory Tests Test 06/22/18 06:25 White Blood Count 8.8 K/UL (4.8-10.8) Red Blood Count 4.74 M/UL (4.70-6.10) Hemoglobin 12.3 G/DL (14.2-18.0) L Hematocrit 39.1 % (42.0-52.0) L Mean Corpuscular Volume 82 FL (80-99) Mean Corpuscular Hemoglobin 25.9 PG (27.0-31.0) L Mean Corpuscular Hemoglobin Concent 31.4 G/DL (32.0-36.0) L Red Cell Distribution Width 16.1 % (11.6-14.8) H Platelet Count 241 K/UL (150-450) Mean Platelet Volume 6.7 FL (6.5-10.1) Neutrophils (%) (Auto) 61.0 % (45.0-75.0) Lymphocytes (%) (Auto) 19.6 % (20.0-45.0) L Monocytes (%) (Auto) 12.0 % (1.0-10.0) H Eosinophils (%) (Auto) 5.7 % (0.0-3.0) H Basophils (%) (Auto) 1.7 % (0.0-2.0) Sodium Level 134 MMOL/L (136-145) L Potassium Level 5.1 MMOL/L (3.5-5.1) Chloride Level 103 MMOL/L (98-107) Carbon Dioxide Level 24 MMOL/L (21-32) Anion Gap 7 mmol/L (5-15) Blood Urea Nitrogen 18 mg/dL (7-18) Creatinine 1.4 MG/DL (0.55-1.30) H Estimat Glomerular Filtration Rate > 60 mL/min (>60) Glucose Level 101 MG/DL (74-106) Calcium Level 8.4 MG/DL (8.5-10.1) L Microbiology Date/Time Source Procedure Growth Status 06/19/18 15:00 Nasal Nares MRSA Culture - Final NO METHICILLIN RESISTANT STAPH AUREUS... Complete Neal Ames MD Jun 22, 2018 11:27
[2018-06-22 11:58] VITALS: BP 114/61
--- NOTE | 2018-06-22 12:36 | Internal Med Progress Note ---
Subjective Date of Service: Jun 22, 2018 Physician Name Shantanu Reyna Attending Physician Phil Wright MD Current Medications Medications (Trade) Dose Ordered Sig/Aminata Route PRN Reason Start Time Stop Time Status Last Admin Dose Admin Acetaminophen (Tylenol) 650 mg Q4H PRN ORAL fever 06/19/18 14:00 07/19/18 13:59 Albuterol/ Ipratropium (Albuterol/ Ipratropium) 3 ml EVERY 4 HOURS PRN HHN Shortness of Breath 06/19/18 14:00 06/24/18 13:59 Amlodipine Besylate (Norvasc) 10 mg DAILY ORAL 06/20/18 09:00 07/20/18 08:59 06/22/18 08:31 Clopidogrel Bisulfate (Plavix) 75 mg DAILY ORAL 06/20/18 09:00 07/20/18 08:59 06/22/18 08:31 Dextrose (Dextrose 50%) 25 ml STAT PRN IV Hypoglycemia 06/20/18 15:00 07/20/18 14:59 Dextrose (Dextrose 50%) 50 ml STAT PRN IV Hypoglycemia 06/20/18 15:00 07/19/18 13:59 Heparin Sodium (Porcine) (Heparin 5000 units/ml) 5,000 units EVERY 12 HOURS SUBQ 06/19/18 21:00 07/19/18 20:59 Isosorbide Mononitrate (Imdur) 30 mg DAILY ORAL 06/20/18 09:00 07/20/18 08:59 06/22/18 08:31 Levetiracetam (Keppra) 500 mg DAILY ORAL 06/20/18 09:00 07/20/18 08:59 06/22/18 08:31 Metoprolol Succinate (Toprol XL) 50 mg BID ORAL 06/19/18 18:00 07/19/18 17:59 06/22/18 08:31 Mirtazapine (Remeron) 60 mg BEDTIME ORAL 06/22/18 21:00 07/22/18 20:59 Morphine Sulfate (Morphine Sulfate) 4 mg Q3H PRN IVP For Pain 06/19/18 16:00 06/26/18 15:59 06/22/18 11:33 Ondansetron HCl (Zofran) 4 mg Q6H PRN IVP Nausea & Vomiting 06/19/18 14:00 07/19/18 13:59 Pantoprazole (Protonix) 40 mg DAILY ORAL 06/19/18 18:15 07/19/18 18:14 06/22/18 08:30 Polyethylene Glycol (Miralax) 17 gm DAILYPRN PRN ORAL Constipation 06/19/18 14:00 07/19/18 13:59 Ranolazine (Ranexa ER 500mg) 500 mg Q12HR ORAL 06/19/18 21:00 07/19/18 20:59 06/22/18 08:30 Temazepam (Restoril) 15 mg HSPRN PRN ORAL Insomnia 06/19/18 21:00 8 20:59 Theophylline (Wilfrido-Dur) 100 mg EVERY 12 HOURS ORAL 06/19/18 21:00 07/19/18 20:59 06/22/18 08:30 Allergies: Coded Allergies: EGG (Verified Allergy, Unknown, 09/22/15) MEPERIDINE (Verified Allergy, Unknown, 12/21/10) NITROGLYCERIN (Verified Allergy, Unknown, hives, 02/18/17) ROS Limited/Unobtainable: No Constitutional: Reports: no symptoms HEENT: Reports: no symptoms Cardiovascular: Reports: chest pain Respiratory: Reports: no symptoms Gastrointestinal/Abdominal: Reports: no symptoms Genitourinary: Reports: no symptoms Subjective 67 YO M admitted with chest pain. Await transfer to [facility] for cardiac cath. Cover for Int Med-Dr Wright. Objective Last Vital Signs Date Time Temp Pulse Resp B/P (MAP) Pulse Ox O2 Delivery O2 Flow Rate FiO2 06/22/18 11:58 98.5 76 20 114/61 (78) 96 98.5 06/22/18 09:34 Room Air 21 Laboratory Tests Test 06/22/18 06:25 White Blood Count 8.8 K/UL (4.8-10.8) Red Blood Count 4.74 M/UL (4.70-6.10) Hemoglobin 12.3 G/DL (14.2-18.0) L Hematocrit 39.1 % (42.0-52.0) L Mean Corpuscular Volume 82 FL (80-99) Mean Corpuscular Hemoglobin 25.9 PG (27.0-31.0) L Mean Corpuscular Hemoglobin Concent 31.4 G/DL (32.0-36.0) L Red Cell Distribution Width 16.1 % (11.6-14.8) H Platelet Count 241 K/UL (150-450) Mean Platelet Volume 6.7 FL (6.5-10.1) Neutrophils (%) (Auto) 61.0 % (45.0-75.0) Lymphocytes (%) (Auto) 19.6 % (20.0-45.0) L Monocytes (%) (Auto) 12.0 % (1.0-10.0) H Eosinophils (%) (Auto) 5.7 % (0.0-3.0) H Basophils (%) (Auto) 1.7 % (0.0-2.0) Sodium Level 134 MMOL/L (136-145) L Potassium Level 5.1 MMOL/L (3.5-5.1) Chloride Level 103 MMOL/L (98-107) Carbon Dioxide Level 24 MMOL/L (21-32) Anion Gap 7 mmol/L (5-15) Blood Urea Nitrogen 18 mg/dL (7-18) Creatinine 1.4 MG/DL (0.55-1.30) H Estimat Glomerular Filtration Rate > 60 mL/min (>60) Glucose Level 101 MG/DL (74-106) Calcium Level 8.4 MG/DL (8.5-10.1) L Microbiology Date/Time Source Procedure Growth Status 06/19/18 15:00 Nasal Nares MRSA Culture - Final NO METHICILLIN RESISTANT STAPH AUREUS... Complete Intake and Output 06/21/18 06/22/18 19:00 07:00 Intake Total 480 ml Output Total 1050 ml 400 ml Balance -570 ml -400 ml Intake Oral 480 ml Output Urine Total 1050 ml 400 ml # Voids 1 3 Objective General Appearance: WD/WN, no apparent distress, alert EENT: PERRL/EOMI, normal ENT inspection Neck: non-tender, normal alignment, supple, normal inspection Cardiovascular: normal peripheral pulses, normal rate, regular rhythm, no gallop/murmur, no JVD Respiratory/Chest: chest wall non-tender, lungs clear, normal breath sounds, no respiratory distress, no accessory muscle use Abdomen: normal bowel sounds, non tender, soft, no organomegaly, no mass Extremities: normal range of motion, non-tender Edema: trace edema, mild edema 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 Await transfer to [facility] [place]-see cardiology note. (4) HTN (hypertension) Assessment & Plan: Continue amlodipine and metoprolol (5) CHF (congestive heart failure) (6) SOB (shortness of breath) Status: not improved Shantanu Reyna MD Jun 22, 2018 12:36
--- NOTE | 2018-06-22 12:37 | Pulmonology Progress Note ---
Assessment/Plan Problems: (1) Emphysema lung (2) Chest pain (3) Nonhealing ulcer of right lower extremity (4) HTN (hypertension) (5) CAD (coronary artery disease) Assessment/Plan respiratory treatment no need for steroids now on theophyline cardiology f/u monitor BP vascular studies pending wound care. Subjective Constitutional: Reports: no symptoms HEENT: Repors: no symptoms Respiratory: Reports: no symptoms Cardiovascular: Reports: no symptoms Allergies: Coded Allergies: EGG (Verified Allergy, Unknown, 09/22/15) MEPERIDINE (Verified Allergy, Unknown, 12/21/10) NITROGLYCERIN (Verified Allergy, Unknown, hives, 02/18/17) Objective Last 24 Hour Vital Signs Date Time Temp Pulse Resp B/P (MAP) Pulse Ox O2 Delivery O2 Flow Rate FiO2 06/22/18 11:58 98.5 76 20 114/61 (78) 96 98.5 06/22/18 09:34 78 20 Room Air 21 06/22/18 08:57 Room Air 06/22/18 08:31 117/56 06/22/18 08:31 73 117/56 06/22/18 08:31 73 117/56 06/22/18 08:00 98.1 73 19 117/56 (76) 95 98.1 06/22/18 08:00 71 06/22/18 04:00 72 06/22/18 04:00 98.8 73 19 111/63 (79) 96 98.8 06/22/18 03:52 99.4 06/22/18 00:00 78 06/22/18 00:00 99.4 81 19 112/63 (79) 94 99.4 06/21/18 21:00 Room Air 06/21/18 20:00 99.3 81 19 116/56 (76) 94 99.3 06/21/18 19:58 86 06/21/18 19:55 80 18 Room Air 21 06/21/18 18:03 83 122/57 06/21/18 16:00 83 06/21/18 16:00 98.9 84 18 122/57 (78) 96 98.9 Intake and Output 06/21/18 06/22/18 19:00 07:00 Intake Total 480 ml Output Total 1050 ml 400 ml Balance -570 ml -400 ml Intake Oral 480 ml Output Urine Total 1050 ml 400 ml # Voids 1 3 General Appearance: WD/WN HEENT: normocephalic, atraumatic Respiratory/Chest: lungs clear, normal breath sounds Cardiovascular: normal peripheral pulses, regular rhythm, no JVD Abdomen: normal bowel sounds, soft, non tender Microbiology Date/Time Source Procedure Growth Status 06/19/18 15:00 Nasal Nares MRSA Culture - Final NO METHICILLIN RESISTANT STAPH AUREUS... Complete Laboratory Tests 06/22/18 06:25: White Blood Count 8.8, Red Blood Count 4.74, Hemoglobin 12.3L, Hematocrit 39.1L , Mean Corpuscular Volume 82, Mean Corpuscular Hemoglobin 25.9L, Mean Corpuscular Hemoglobin Concent 31.4L, Red Cell Distribution Width 16.1H, Platelet Count 241, Mean Platelet Volume 6.7, Neutrophils (%) (Auto) 61.0, Lymphocytes (%) (Auto) 19.6L, Monocytes (%) (Auto) 12.0H, Eosinophils (%) (Auto ) 5.7H, Basophils (%) (Auto) 1.7, Sodium Level 134L, Potassium Level 5.1, Chloride Level 103, Carbon Dioxide Level 24, Anion Gap 7, Blood Urea Nitrogen 18 , Creatinine 1.4H, Estimat Glomerular Filtration Rate > 60, Glucose Level 101, Calcium Level 8.4L Current Medications Medications (Trade) Dose Ordered Sig/Aminata Route PRN Reason Start Time Stop Time Status Last Admin Dose Admin Acetaminophen (Tylenol) 650 mg Q4H PRN ORAL fever 06/19/18 14:00 07/19/18 13:59 Albuterol/ Ipratropium (Albuterol/ Ipratropium) 3 ml EVERY 4 HOURS PRN HHN Shortness of Breath 06/19/18 14:00 06/24/18 13:59 Amlodipine Besylate (Norvasc) 10 mg DAILY ORAL 06/20/18 09:00 07/20/18 08:59 06/22/18 08:31 Clopidogrel Bisulfate (Plavix) 75 mg DAILY ORAL 06/20/18 09:00 07/20/18 08:59 06/22/18 08:31 Dextrose (Dextrose 50%) 25 ml STAT PRN IV Hypoglycemia 06/20/18 15:00 07/20/18 14:59 Dextrose (Dextrose 50%) 50 ml STAT PRN IV Hypoglycemia 06/20/18 15:00 07/19/18 13:59 Heparin Sodium (Porcine) (Heparin 5000 units/ml) 5,000 units EVERY 12 HOURS SUBQ 06/19/18 21:00 07/19/18 20:59 Isosorbide Mononitrate (Imdur) 30 mg DAILY ORAL 06/20/18 09:00 07/20/18 08:59 06/22/18 08:31 Levetiracetam (Keppra) 500 mg DAILY ORAL 06/20/18 09:00 07/20/18 08:59 06/22/18 08:31 Metoprolol Succinate (Toprol XL) 50 mg BID ORAL 06/19/18 18:00 07/19/18 17:59 06/22/18 08:31 Mirtazapine (Remeron) 60 mg BEDTIME ORAL 06/22/18 21:00 07/22/18 20:59 Morphine Sulfate (Morphine Sulfate) 4 mg Q3H PRN IVP For Pain 06/19/18 16:00 06/26/18 15:59 06/22/18 11:33 Ondansetron HCl (Zofran) 4 mg Q6H PRN IVP Nausea & Vomiting 06/19/18 14:00 07/19/18 13:59 Pantoprazole (Protonix) 40 mg DAILY ORAL 06/19/18 18:15 07/19/18 18:14 06/22/18 08:30 Polyethylene Glycol (Miralax) 17 gm DAILYPRN PRN ORAL Constipation 06/19/18 14:00 07/19/18 13:59 Ranolazine (Ranexa ER 500mg) 500 mg Q12HR ORAL 06/19/18 21:00 07/19/18 20:59 06/22/18 08:30 Temazepam (Restoril) 15 mg HSPRN PRN ORAL Insomnia 06/19/18 21:00 06/26/18 20:59 Theophylline (Wilfrido-Dur) 100 mg EVERY 12 HOURS ORAL 06/19/18 21:00 07/19/18 20:59 06/22/18 08:30 Jessie Magana MD Jun 22, 2018 12:37
[2018-06-22 16:00] VITALS: BP 126/78
--- NOTE | 2018-06-22 17:15 | Consultation ---
DATE OF CONSULTATION: 06/22/2018 INVASIVE CARDIOLOGY CONSULTATION CONSULTING PHYSICIAN: Neal Ames M.D. REFERRING PHYSICIAN: Phil Wright M.D. ADDITIONAL REFERRING PHYSICIAN: Adonis Winn M.D. REASON FOR CONSULTATION: Cardiac catheterization. HISTORY OF PRESENT ILLNESS: The patient is a very pleasant, 67-year-old, gentleman with history of hypertension and prior myocardial infarction, has coronary artery disease, history of coronary artery bypass graft in 2009 and again 2010. The patient was admitted to [facility] from 06/09/2018 through 06/12/2018. The patient presented to hospital again with chest pain. The patient was evaluated by Dr. Winn. The patient refused nuclear stress test, as he believes that they are falsely negative. The patient was evaluated by Dr. Winn and recommended cardiac catheterization and a Cardiology consultation was requested for further evaluation. I am transferring the patient to [facility]. PAST MEDICAL HISTORY: 1. Hypertension. 2. Coronary artery disease with history of coronary bypass graft in 2009 and 2010. 3. COPD. 4. Seizure disorder. MEDICATIONS: Per reconciliation and includes Norvasc, Plavix, Keppra, metoprolol, Zantac, Wilfrido-Dur, Remeron, and albuterol. FAMILY HISTORY: Noncontributory. SOCIAL HISTORY: Does not smoke or drink alcohol. REVIEW OF SYSTEMS: Review of systems was negative other than what was mentioned in the history of present illness. PHYSICAL EXAMINATION: VITAL SIGNS: Blood pressure of 117/56, pulse 73, respirations 18, and temperature 98.1 degrees. HEAD AND NECK: No JVD. LUNGS: Clear. CARDIOVASCULAR: Regular S1 and S2 with no gallop or murmur. Sternotomy scar is intact. ABDOMEN: Soft. EXTREMITIES: No pitting edema. LABORATORY AND DIAGNOSTIC DATA: Labs show white count of 8.8, hemoglobin of 12.7, hematocrit 39.1, and platelet count 241. Sodium 134, potassium is 5.1, BUN of 30, creatinine 1.5, and glucose of 101. Troponin negative x2. ASSESSMENT AND PLAN: 1. Recurrent chest pain in a patient with history of coronary artery bypass graft. I agree with Dr. Winn that the patient needs further ischemia evaluation. The patient however has refused nuclear stress test. Transfer is being arranged for transfer the patient to [facility] for cardiac catheterization for further evaluation of his coronaries. In the meantime, the patient is placed on Plavix 75 mg daily and Imdur 30 mg daily, Ranexa 500 mg b.i.d., and Toprol-XL 50 mg b.i.d. 2. Hypertension, on Plavix, Imdur and Norvasc 10 mg daily. 3. Seizure disorder, on Keppra. 4. Mild renal failure, creatinine is 1.4. Thank you very much, Dr. Winn and Dr. Wright for allowing me to participate in the care of this patient. Please do not hesitate to contact me for any questions regarding my evaluation. Neal Ames M.D. DR: ARIA JOB#: [id number] CC:
[2018-06-22 20:00] VITALS: BP 120/56
--- NOTE | 2018-06-22 22:16 | Cardiology Progress Note ---
Assessment/Plan Status: stable Assessment/Plan Assessment 1. Hypertension. 2. Coronary artery bypass graft in 2009 and again in 2011, Coronary angioplasty with stent placement x2. 3. History of myocardial infarction x2. 4. Chronic obstructive pulmonary disease. 5. Seizure disorder. Plan -Plavix -nitro prn -Statin -Ranexa -Metoprolol -recommend cardiac cath to evaluate anatomy given multiple admissions and patient declining stress tests stating they are false negatives -Would arrange transfer to [facility] for cath Subjective Cardiovascular: Reports: chest pain Respiratory: Reports: no symptoms Gastrointestinal/Abdominal: Reports: no symptoms Genitourinary: Reports: no symptoms Subjective No acute events, no complaints, resting comfortably, agrees to transfer to [facility] Objective Last 24 Hour Vital Signs Date Time Temp Pulse Resp B/P (MAP) Pulse Ox O2 Delivery O2 Flow Rate FiO2 06/22/18 21:10 85 22 Room Air 21 06/22/18 17:08 75 126/78 06/22/18 16:00 97.6 86 20 126/78 (94) 94 97.6 06/22/18 16:00 75 06/22/18 12:00 70 06/22/18 11:58 98.5 76 20 114/61 (78) 96 98.5 06/22/18 09:34 78 20 Room Air 21 06/22/18 08:57 Room Air 06/22/18 08:31 117/56 06/22/18 08:31 73 117/56 06/22/18 08:31 73 117/56 06/22/18 08:00 98.1 73 19 117/56 (76) 95 98.1 06/22/18 08:00 71 06/22/18 04:00 72 06/22/18 04:00 98.8 73 19 111/63 (79) 96 98.8 06/22/18 03:52 99.4 06/22/18 00:00 78 06/22/18 00:00 99.4 81 19 112/63 (79) 94 99.4 General Appearance: no apparent distress, alert EENT: PERRL/EOMI, normal ENT inspection Neck: non-tender, normal alignment Rhythm: NSR Cardiovascular: normal peripheral pulses, normal rate, regular rhythm Respiratory/Chest: chest wall non-tender, lungs clear Abdomen: normal bowel sounds, non tender Extremities: normal range of motion Neurologic: brim shaper II-XII grossly normal Intake and Output 06/21/18 06/22/18 19:00 07:00 Intake Total 480 ml Output Total 1050 ml 400 ml Balance -570 ml -400 ml Intake Oral 480 ml Output Urine Total 1050 ml 400 ml # Voids 1 3 Laboratory Tests Test 06/22/18 06:25 White Blood Count 8.8 K/UL (4.8-10.8) Red Blood Count 4.74 M/UL (4.70-6.10) Hemoglobin 12.3 G/DL (14.2-18.0) L Hematocrit 39.1 % (42.0-52.0) L Mean Corpuscular Volume 82 FL (80-99) Mean Corpuscular Hemoglobin 25.9 PG (27.0-31.0) L Mean Corpuscular Hemoglobin Concent 31.4 G/DL (32.0-36.0) L Red Cell Distribution Width 16.1 % (11.6-14.8) H Platelet Count 241 K/UL (150-450) Mean Platelet Volume 6.7 FL (6.5-10.1) Neutrophils (%) (Auto) 61.0 % (45.0-75.0) Lymphocytes (%) (Auto) 19.6 % (20.0-45.0) L Monocytes (%) (Auto) 12.0 % (1.0-10.0) H Eosinophils (%) (Auto) 5.7 % (0.0-3.0) H Basophils (%) (Auto) 1.7 % (0.0-2.0) Sodium Level 134 MMOL/L (136-145) L Potassium Level 5.1 MMOL/L (3.5-5.1) Chloride Level 103 MMOL/L (98-107) Carbon Dioxide Level 24 MMOL/L (21-32) Anion Gap 7 mmol/L (5-15) Blood Urea Nitrogen 18 mg/dL (7-18) Creatinine 1.4 MG/DL (0.55-1.30) H Estimat Glomerular Filtration Rate > 60 mL/min (>60) Glucose Level 101 MG/DL (74-106) Calcium Level 8.4 MG/DL (8.5-10.1) L Adonis Winn M.D. Jun 22, 2018 22:16
[2018-06-23] VITALS: BP 129/56
[2018-06-23] MEDS: Morphine Sulfate 4mg/ml Inj (IV USE ONLY) IVP PRN ×5 (00:05→16:32)
[2018-06-23 04:00] VITALS: BP 130/76
--- NOTE | 2018-06-23 07:25 | Infectious Diseases Prog Note ---
Assessment/Plan Assessment/Plan Abx: IV Vanco 06/19- Cefepime 06/19- Assessment: Breakthrough Seizure N/V, diarrhea- now resolved- probably viral gastroenteritis Afebrile, no leukocytosis -CXR: no acute process Recent COPD exacerbation 05/2018 Recurrent Leg cellulitis, s/p Rx- Still no present signs of cellulitis -R ankle cellulitis early 05/2018, s/p Rx -B/l leg cellulitis 03/2018, s/p Rx Chronic R>L edema R Ankle chronic ulcer- healing, no signs of infection -R ankle xray 05/31/2018: Severe post fracture deformity of the ankle as described above. No significant change. -R foot xray 03/2018: No acute injury identified. Abnormal fifth MPJ joint which may be on the basis of previous surgery/trauma or old erosive process. Osteoporosis -a. duplex: A mild (10-30%) stenosis is seen in the mid superficial femoral artery. There is no evidence of occlusion within this segment. HTN severe malnutrition MDD tobacco abuse seizure disorder emphysema DM2 CAD s/p CABG COPD -recent exacerbation requiring admission 02/2018 bedbound Plan: Continue to Monitor off abx - IV vanco and cefepime 06/19/18 - 06/20/18 -06/10 SP Zosyn #2 -06/03 SP Keflex #1 -06/02 SP Ancef #6 -05/16 SP Ancef # 5 -05/12 SP Cefepime and Zosyn x1 -5/3 SP PO Levaquin #3 -03/23/18 SP Zosyn #2 -f/u cx -Monitor CBC/CMP, temperatures -wound care per hosp protocol Thank you for this consultation. Will continue to follow along with you. Subjective Allergies: Coded Allergies: EGG (Verified Allergy, Unknown, 09/22/15) MEPERIDINE (Verified Allergy, Unknown, 12/21/10) NITROGLYCERIN (Verified Allergy, Unknown, hives, 02/18/17) Subjective Patient still reports some B/L Lower extremity pain. Denies N/V/D or fevers Objective Vital Signs Last 24 Hour Vital Signs Date Time Temp Pulse Resp B/P (MAP) Pulse Ox O2 Delivery O2 Flow Rate FiO2 06/23/18 04:00 74 06/23/18 04:00 98.1 80 19 130/76 (94) 94 98.1 06/23/18 00:00 99.0 75 17 129/56 (80) 94 99.0 06/23/18 00:00 81 06/22/18 21:10 85 22 Room Air 21 06/22/18 21:00 Room Air 06/22/18 20:00 99.7 78 18 120/56 (77) 94 99.7 06/22/18 20:00 78 06/22/18 17:08 75 126/78 06/22/18 16:00 97.6 86 20 126/78 (94) 94 97.6 06/22/18 16:00 75 06/22/18 12:00 70 06/22/18 11:58 98.5 76 20 114/61 (78) 96 98.5 06/22/18 09:34 78 20 Room Air 21 06/22/18 08:57 Room Air 06/22/18 08:31 117/56 06/22/18 08:31 73 117/56 06/22/18 08:31 73 117/56 06/22/18 08:00 98.1 73 19 117/56 (76) 95 98.1 06/22/18 08:00 71 Height (Feet): 6 Height (Inches): 1.00 Weight (Pounds): 130 Respiratory/Chest: decreased breath sounds Objective General Appearance: no apparent distress, alert HEENT: normocephalic, atraumatic,MMM, EOMI Neck: non-tender, supple Respiratory/Chest: lungs clear - with decreased air exchange Cardiovascular/Chest: normal peripheral pulses, normal rate, regular rhythm - SR on tele Abdomen: normal bowel sounds, non tender, soft Extremities: TTP blow knee B/L, Right foot in bandage. No purulent drainage. normal capillary refill Skin Exam: warm/dry Neurologic: abnormal gait, alert, oriented x 3, responsive Musculoskeletal: atrophy - BLE Current Medications Medications (Trade) Dose Ordered Sig/Aminata Route PRN Reason Start Time Stop Time Status Last Admin Dose Admin Acetaminophen (Tylenol) 650 mg Q4H PRN ORAL fever 06/19/18 14:00 07/19/18 13:59 Albuterol/ Ipratropium (Albuterol/ Ipratropium) 3 ml EVERY 4 HOURS PRN HHN Shortness of Breath 06/19/18 14:00 06/24/18 13:59 Amlodipine Besylate (Norvasc) 10 mg DAILY ORAL 06/20/18 09:00 07/20/18 08:59 06/22/18 08:31 Clopidogrel Bisulfate (Plavix) 75 mg DAILY ORAL 06/20/18 09:00 07/20/18 08:59 06/22/18 08:31 Dextrose (Dextrose 50%) 25 ml STAT PRN IV Hypoglycemia 06/20/18 15:00 07/20/18 14:59 Dextrose (Dextrose 50%) 50 ml STAT PRN IV Hypoglycemia 06/20/18 15:00 07/19/18 13:59 Heparin Sodium (Porcine) (Heparin 5000 units/ml) 5,000 units EVERY 12 HOURS SUBQ 06/19/18 21:00 07/19/18 20:59 Isosorbide Mononitrate (Imdur) 30 mg DAILY ORAL 06/20/18 09:00 07/20/18 08:59 06/22/18 08:31 Levetiracetam (Keppra) 500 mg DAILY ORAL 06/20/18 09:00 07/20/18 08:59 06/22/18 08:31 Metoprolol Succinate (Toprol XL) 50 mg BID ORAL 06/19/18 18:00 07/19/18 17:59 06/22/18 17:08 Mirtazapine (Remeron) 60 mg BEDTIME ORAL 06/22/18 21:00 07/22/18 20:59 06/22/18 20:55 Morphine Sulfate (Morphine Sulfate) 4 mg Q3H PRN IVP For Pain 06/19/18 16:00 06/26/18 15:59 06/23/18 05:17 Ondansetron HCl (Zofran) 4 mg Q6H PRN IVP Nausea & Vomiting 06/19/18 14:00 07/19/18 13:59 Pantoprazole (Protonix) 40 mg DAILY ORAL 06/19/18 18:15 07/19/18 18:14 06/22/18 08:30 Polyethylene Glycol (Miralax) 17 gm DAILYPRN PRN ORAL Constipation 06/19/18 14:00 07/19/18 13:59 Ranolazine (Ranexa ER 500mg) 500 mg Q12HR ORAL 06/19/18 21:00 07/19/18 20:59 06/22/18 20:55 Temazepam (Restoril) 15 mg HSPRN PRN ORAL Insomnia 06/19/18 21:00 06/26/18 20:59 Theophylline (Wilfrido-Dur) 100 mg EVERY 12 HOURS ORAL 06/19/18 21:00 07/19/18 20:59 06/22/18 20:55 Adonis Lozoya M.D. Jun 23, 2018 07:25
[2018-06-23 08:00] VITALS: BP 120/58
[2018-06-23] MEDS: Ranolazine 500mg tab ORAL SCH (08:59)
[2018-06-23] MEDS: Metoprolol Succinate XL 50mg tab ORAL SCH ×2 (08:59→18:00)
[2018-06-23] MEDS: Imdur 30mg tab ORAL SCH (09:00)
[2018-06-23] MEDS: Theophylline ER 100mg ORAL SCH (09:00)
[2018-06-23] MEDS: Heparin 5000 units/ml inj SUBQ SCH (09:00)
--- NOTE | 2018-06-23 10:08 | Cardiac Electrophysiology PN ---
Assessment/Plan Assessment/Plan 1. Recurrent chest pain in a patient with history of coronary artery bypass graft. I agree with Dr. Winn that the patient needs further ischemia evaluation. The patient however has refused nuclear stress test. Transfer is being arranged for transfer the patient to [facility] for cardiac catheterization. Continue Plavix 75 mg daily,Imdur 30 mg daily, Ranexa 500 mg b.i.d., and Toprol-XL 50 mg b.i.d. 2. Hypertension, on Plavix, Imdur and Norvasc 10 mg daily. 3. Seizure disorder, on Keppra. 4. Mild renal failure, creatinine is 1.4. Subjective Subjective Awaiting transfer to [facility] for cardiac cath Objective Last 24 Hour Vital Signs Date Time Temp Pulse Resp B/P (MAP) Pulse Ox O2 Delivery O2 Flow Rate FiO2 06/23/18 09:00 98.1 06/23/18 09:00 85 120/58 06/23/18 09:00 Room Air 06/23/18 08:59 85 120/58 06/23/18 08:22 80 20 Room Air 21 06/23/18 08:00 98.1 75 18 120/58 (78) 99 98.1 06/23/18 04:00 74 06/23/18 04:00 98.1 80 19 130/76 (94) 94 98.1 06/23/18 00:00 99.0 75 17 129/56 (80) 94 99.0 06/23/18 00:00 81 06/22/18 21:10 85 22 Room Air 21 06/22/18 21:00 Room Air 06/22/18 20:00 99.7 78 18 120/56 (77) 94 99.7 06/22/18 20:00 78 06/22/18 17:08 75 126/78 06/22/18 16:00 97.6 86 20 126/78 (94) 94 97.6 06/22/18 16:00 75 06/22/18 12:00 70 06/22/18 11:58 98.5 76 20 114/61 (78) 96 98.5 Intake and Output 06/22/18 06/23/18 19:00 07:00 Intake Total 560 ml 480 ml Output Total 800 ml Balance 560 ml -320 ml Intake Oral 560 ml 480 ml Output Urine Total 800 ml # Voids 2 2 Objective HEAD AND NECK: No JVD. LUNGS: Clear. CARDIOVASCULAR: Regular S1 and S2 with no gallop or murmur. Sternotomy scar is intact. ABDOMEN: Soft. EXTREMITIES: No pitting edema. Neal Ames MD Jun 23, 2018 10:08
--- NOTE | 2018-06-23 11:42 | Pulmonology Progress Note ---
Assessment/Plan Problems: (1) Chest pain (2) Emphysema lung (3) Nonhealing ulcer of right lower extremity (4) HTN (hypertension) (5) CAD (coronary artery disease) Assessment/Plan waiting for stress test respiratory treatment no need for steroids now on theophyline cardiology f/u monitor BP vascular studies pending wound care. Subjective ROS Limited/Unobtainable: No Constitutional: Reports: no symptoms HEENT: Repors: no symptoms Respiratory: Reports: no symptoms Allergies: Coded Allergies: EGG (Verified Allergy, Unknown, 09/22/15) MEPERIDINE (Verified Allergy, Unknown, 12/21/10) NITROGLYCERIN (Verified Allergy, Unknown, hives, 02/18/17) Objective Last 24 Hour Vital Signs Date Time Temp Pulse Resp B/P (MAP) Pulse Ox O2 Delivery O2 Flow Rate FiO2 06/23/18 09:30 98.1 06/23/18 09:00 98.1 06/23/18 09:00 85 120/58 06/23/18 09:00 Room Air 06/23/18 08:59 85 120/58 06/23/18 08:22 80 20 Room Air 21 06/23/18 08:00 98.1 75 18 120/58 (78) 99 98.1 06/23/18 08:00 72 06/23/18 04:00 74 06/23/18 04:00 98.1 80 19 130/76 (94) 94 98.1 06/23/18 00:00 99.0 75 17 129/56 (80) 94 99.0 06/23/18 00:00 81 06/22/18 21:10 85 22 Room Air 21 06/22/18 21:00 Room Air 06/22/18 20:00 99.7 78 18 120/56 (77) 94 99.7 06/22/18 20:00 78 06/22/18 17:08 75 126/78 06/22/18 16:00 97.6 86 20 126/78 (94) 94 97.6 06/22/18 16:00 75 06/22/18 12:00 70 06/22/18 11:58 98.5 76 20 114/61 (78) 96 98.5 Intake and Output 06/22/18 06/23/18 19:00 07:00 Intake Total 560 ml 480 ml Output Total 800 ml Balance 560 ml -320 ml Intake Oral 560 ml 480 ml Output Urine Total 800 ml # Voids 2 2 General Appearance: cachetic HEENT: normocephalic, atraumatic Respiratory/Chest: chest wall non-tender, lungs clear Cardiovascular: normal peripheral pulses, normal rate Abdomen: soft, non tender, no scars Extremities: no clubbing 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 Current Medications Medications (Trade) Dose Ordered Sig/Aminata Route PRN Reason Start Time Stop Time Status Last Admin Dose Admin Acetaminophen (Tylenol) 650 mg Q4H PRN ORAL fever 06/19/18 14:00 07/19/18 13:59 Albuterol/ Ipratropium (Albuterol/ Ipratropium) 3 ml EVERY 4 HOURS PRN HHN Shortness of Breath 06/19/18 14:00 06/24/18 13:59 Amlodipine Besylate (Norvasc) 10 mg DAILY ORAL 06/20/18 09:00 07/20/18 08:59 06/23/18 09:00 Clopidogrel Bisulfate (Plavix) 75 mg DAILY ORAL 06/20/18 09:00 07/20/18 08:59 06/23/18 09:00 Dextrose (Dextrose 50%) 25 ml STAT PRN IV Hypoglycemia 06/20/18 15:00 07/20/18 14:59 Dextrose (Dextrose 50%) 50 ml STAT PRN IV Hypoglycemia 06/20/18 15:00 07/19/18 13:59 Heparin Sodium (Porcine) (Heparin 5000 units/ml) 5,000 units EVERY 12 HOURS SUBQ 06/19/18 21:00 07/19/18 20:59 Isosorbide Mononitrate (Imdur) 30 mg DAILY ORAL 06/20/18 09:00 07/20/18 08:59 06/22/18 08:31 Levetiracetam (Keppra) 500 mg DAILY ORAL 06/20/18 09:00 07/20/18 08:59 06/23/18 08:59 Metoprolol Succinate (Toprol XL) 50 mg BID ORAL 06/19/18 18:00 07/19/18 17:59 06/23/18 08:59 Mirtazapine (Remeron) 60 mg BEDTIME ORAL 06/22/18 21:00 07/22/18 20:59 06/22/18 20:55 Morphine Sulfate (Morphine Sulfate) 4 mg Q3H PRN IVP For Pain 06/19/18 16:00 06/26/18 15:59 06/23/18 09:00 Ondansetron HCl (Zofran) 4 mg Q6H PRN IVP Nausea & Vomiting 06/19/18 14:00 07/19/18 13:59 Pantoprazole (Protonix) 40 mg DAILY ORAL 06/19/18 18:15 07/19/18 18:14 06/23/18 08:59 Polyethylene Glycol (Miralax) 17 gm DAILYPRN PRN ORAL Constipation 06/19/18 14:00 07/19/18 13:59 Ranolazine (Ranexa ER 500mg) 500 mg Q12HR ORAL 06/19/18 21:00 07/19/18 20:59 06/23/18 08:59 Temazepam (Restoril) 15 mg HSPRN PRN ORAL Insomnia 06/19/18 21:00 06/26/18 20:59 Theophylline (Wilfrido-Dur) 100 mg EVERY 12 HOURS ORAL 06/19/18 21:00 07/19/18 20:59 06/23/18 09:00 Jessie Magana MD Jun 23, 2018 11:42
--- NOTE | 2018-06-23 11:54 | General Progress Note ---
Subjective Date patient seen: Jun 23, 2018 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: Reports: anxiety, depressed, emotional problems Allergies: Coded Allergies: EGG (Verified Allergy, Unknown, 09/22/15) MEPERIDINE (Verified Allergy, Unknown, 12/21/10) NITROGLYCERIN (Verified Allergy, Unknown, hives, 02/18/17) Objective Last 24 Hour Vital Signs Date Time Temp Pulse Resp B/P (MAP) Pulse Ox O2 Delivery O2 Flow Rate FiO2 06/23/18 09:30 98.1 06/23/18 09:00 98.1 06/23/18 09:00 85 120/58 06/23/18 09:00 Room Air 06/23/18 08:59 85 120/58 06/23/18 08:22 80 20 Room Air 21 06/23/18 08:00 98.1 75 18 120/58 (78) 99 98.1 06/23/18 08:00 72 06/23/18 04:00 74 06/23/18 04:00 98.1 80 19 130/76 (94) 94 98.1 06/23/18 00:00 99.0 75 17 129/56 (80) 94 99.0 06/23/18 00:00 81 06/22/18 21:10 85 22 Room Air 21 06/22/18 21:00 Room Air 06/22/18 20:00 99.7 78 18 120/56 (77) 94 99.7 06/22/18 20:00 78 06/22/18 17:08 75 126/78 06/22/18 16:00 97.6 86 20 126/78 (94) 94 97.6 06/22/18 16:00 75 06/22/18 12:00 70 06/22/18 11:58 98.5 76 20 114/61 (78) 96 98.5 Intake and Output 06/22/18 06/23/18 19:00 07:00 Intake Total 560 ml 480 ml Output Total 800 ml Balance 560 ml -320 ml Intake Oral 560 ml 480 ml Output Urine Total 800 ml # Voids 2 2 Height (Feet): 6 Height (Inches): 1.00 Weight (Pounds): 130 General Appearance: no apparent distress, alert Rachael Buckley MD Jun 23, 2018 11:54
[2018-06-23 12:00] VITALS: BP 136/63
--- NOTE | 2018-06-23 15:52 | Cardiology Progress Note ---
Assessment/Plan Status: stable Assessment/Plan Assessment 1. Hypertension. 2. Coronary artery bypass graft in 2009 and again in 2011, Coronary angioplasty with stent placement x2. 3. History of myocardial infarction x2. 4. Chronic obstructive pulmonary disease. 5. Seizure disorder. Plan -Plavix -nitro prn -Statin -Ranexa -Metoprolol -recommend cardiac cath to evaluate anatomy given multiple admissions and patient declining stress tests stating they are false negatives -Would arrange transfer to [facility] for cath today Subjective Cardiovascular: Reports: no symptoms Respiratory: Reports: no symptoms Gastrointestinal/Abdominal: Reports: no symptoms Genitourinary: Reports: no symptoms Subjective No acute events, no complaints, resting comfortably, agrees to [facility] Accepted today at 1730 Plan for cath tomorrow Objective Last 24 Hour Vital Signs Date Time Temp Pulse Resp B/P (MAP) Pulse Ox O2 Delivery O2 Flow Rate FiO2 06/23/18 13:43 98.6 06/23/18 12:00 72 06/23/18 12:00 98.6 70 18 136/63 (87) 96 98.6 06/23/18 09:00 98.1 06/23/18 09:00 85 120/58 06/23/18 09:00 Room Air 06/23/18 08:59 85 120/58 06/23/18 08:22 80 20 Room Air 21 06/23/18 08:00 98.1 75 18 120/58 (78) 99 98.1 06/23/18 08:00 72 06/23/18 04:00 74 06/23/18 04:00 98.1 80 19 130/76 (94) 94 98.1 06/23/18 00:00 99.0 75 17 129/56 (80) 94 99.0 06/23/18 00:00 81 06/22/18 21:10 85 22 Room Air 21 06/22/18 21:00 Room Air 06/22/18 20:00 99.7 78 18 120/56 (77) 94 99.7 06/22/18 20:00 78 06/22/18 17:08 75 126/78 06/22/18 16:00 97.6 86 20 126/78 (94) 94 97.6 06/22/18 16:00 75 General Appearance: no apparent distress EENT: PERRL/EOMI, normal ENT inspection Neck: non-tender, normal alignment, supple Rhythm: NSR Cardiovascular: normal peripheral pulses, normal rate, regular rhythm Respiratory/Chest: chest wall non-tender, lungs clear Abdomen: normal bowel sounds, non tender Extremities: normal range of motion, non-tender 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 Jun 23, 2018 15:52
[2018-06-23 16:00] VITALS: BP 102/56
--- NOTE | 2018-06-23 16:35 | Internal Med Progress Note ---
Subjective Date of Service: Jun 23, 2018 Physician Name Shantanu Reyna Attending Physician Phil Wright MD Current Medications Medications (Trade) Dose Ordered Sig/Aminata Route PRN Reason Start Time Stop Time Status Last Admin Dose Admin Acetaminophen (Tylenol) 650 mg Q4H PRN ORAL fever 06/19/18 14:00 07/19/18 13:59 Albuterol/ Ipratropium (Albuterol/ Ipratropium) 3 ml EVERY 4 HOURS PRN HHN Shortness of Breath 06/19/18 14:00 06/24/18 13:59 Amlodipine Besylate (Norvasc) 10 mg DAILY ORAL 06/20/18 09:00 07/20/18 08:59 06/23/18 09:00 Clopidogrel Bisulfate (Plavix) 75 mg DAILY ORAL 06/20/18 09:00 07/20/18 08:59 06/23/18 09:00 Dextrose (Dextrose 50%) 25 ml STAT PRN IV Hypoglycemia 06/20/18 15:00 07/20/18 14:59 Dextrose (Dextrose 50%) 50 ml STAT PRN IV Hypoglycemia 06/20/18 15:00 07/19/18 13:59 Heparin Sodium (Porcine) (Heparin 5000 units/ml) 5,000 units EVERY 12 HOURS SUBQ 06/19/18 21:00 07/19/18 20:59 Isosorbide Mononitrate (Imdur) 30 mg DAILY ORAL 06/20/18 09:00 07/20/18 08:59 06/22/18 08:31 Levetiracetam (Keppra) 500 mg DAILY ORAL 06/20/18 09:00 07/20/18 08:59 06/23/18 08:59 Metoprolol Succinate (Toprol XL) 50 mg BID ORAL 06/19/18 18:00 07/19/18 17:59 06/23/18 08:59 Mirtazapine (Remeron) 60 mg BEDTIME ORAL 06/22/18 21:00 07/22/18 20:59 06/22/18 20:55 Morphine Sulfate (Morphine Sulfate) 4 mg Q3H PRN IVP For Pain 06/19/18 16:00 06/26/18 15:59 06/23/18 16:32 Ondansetron HCl (Zofran) 4 mg Q6H PRN IVP Nausea & Vomiting 06/19/18 14:00 07/19/18 13:59 Pantoprazole (Protonix) 40 mg DAILY ORAL 06/19/18 18:15 07/19/18 18:14 06/23/18 08:59 Polyethylene Glycol (Miralax) 17 gm DAILYPRN PRN ORAL Constipation 06/19/18 14:00 07/19/18 13:59 Ranolazine (Ranexa ER 500mg) 500 mg Q12HR ORAL 06/19/18 21:00 07/19/18 20:59 06/23/18 08:59 Temazepam (Restoril) 15 mg HSPRN PRN ORAL Insomnia 06/19/18 21:00 06/26/18 20:59 Theophylline (Wilfrido-Dur) 100 mg EVERY 12 HOURS ORAL 06/19/18 21:00 07/19/18 20:59 06/23/18 09:00 Allergies: Coded Allergies: EGG (Verified Allergy, Unknown, 09/22/15) MEPERIDINE (Verified Allergy, Unknown, 12/21/10) NITROGLYCERIN (Verified Allergy, Unknown, hives, 02/18/17) ROS Limited/Unobtainable: No Constitutional: Reports: no symptoms HEENT: Reports: no symptoms Cardiovascular: Reports: no symptoms Respiratory: Reports: no symptoms Gastrointestinal/Abdominal: Reports: no symptoms Genitourinary: Reports: no symptoms 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: Reports: no symptoms Subjective 67 YO M admitted with chest pain. Await transfer to [facility] for cardiac cath. Cover for Int Wilfred-Dr Wright. Objective Last Vital Signs Date Time Temp Pulse Resp B/P (MAP) Pulse Ox O2 Delivery O2 Flow Rate FiO2 06/23/18 16:32 97.9 06/23/18 16:00 78 20 102/56 (71) 97 06/23/18 09:00 Room Air 06/23/18 08:22 21 Intake and Output 06/22/18 06/23/18 19:00 07:00 Intake Total 560 ml 480 ml Output Total 800 ml Balance 560 ml -320 ml Intake Oral 560 ml 480 ml Output Urine Total 800 ml # Voids 2 2 Objective General Appearance: WD/WN, no apparent distress, alert EENT: PERRL/EOMI, normal ENT inspection Neck: non-tender, normal alignment, supple, normal inspection Cardiovascular: normal peripheral pulses, normal rate, regular rhythm, no gallop/murmur, no JVD Respiratory/Chest: chest wall non-tender, lungs clear, normal breath sounds, no respiratory distress, no accessory muscle use Abdomen: normal bowel sounds, non tender, soft, no organomegaly, no mass Extremities: normal range of motion, non-tender Edema: trace edema, mild edema Neurologic: heater tender II-XII grossly normal, no motor/sensory deficits Skin: normal pigmentation, warm/dry Assessment/Plan Problem List: (1) Seizure disorder Assessment & Plan: Continue Keppra (2) Chest pain (3) CAD (coronary artery disease) Assessment & Plan: Needs cardiac cath. Await transfer to [facility]-see cardiology note. (4) HTN (hypertension) Assessment & Plan: Continue amlodipine and metoprolol (5) CHF (congestive heart failure) (6) SOB (shortness of breath) Status: stable Assessment/Plan Transfer to [facility] today Shantanu Reyna MD Jun 23, 2018 16:35
[2018-06-23 18:00] VITALS: BP 102/56
--- NOTE | 2018-06-25 13:45 | Discharge Summary ---
Discharge Summary Discharge Summary _ DATE OF ADMISSION: 06/19/2018 DATE OF DISCHARGE: 2017 REASON FOR ADMISSION: 67 years old male with past medical history of coronary artery disease, status post CABG in 2009, status post angioplasty with 2 stents placement in 2010, history of myocardial infarction 2, hypertension, COPD/emphysema, seizure disorder, gastritis, diabetes mellitus,w3as on his way to primary care physician's office, when he started to experience chest pain. Pain was located substernally. Patient also reported having a seizure. Patient's brought him to the emergency room for further evaluation. Patient also reported nausea ,vomiting ,diarrhea. Patient denied shortness of breath ,cough, wheezing. He denied palpitations, dizziness, focal weakness. No hematemesis, no hematochezia, and no melena. Patient denied abdominal pain. GI cocktail was given in emergency department , and patient was able to tolerate diet. Vital signs reveal elevated blood pressure 170/82. Pulse oximetry was stable on room air. Troponin was negative. EKG revealed normal sinus rhythm, no acute ischemic changes. Pro BNP 917 No leukocytosis, stable hemoglobin and hematocrit. BUN 24, creatinine 1.4. Chest x-ray revealed no acute cardiopulmonary pathology. Patient admitted for further management with diagnosis of chest pain hypertensive urgency, breakthrough seizure, nausea vomiting and diarrhea. CONSULTANTS: nurse practitioner physician assistant dr. Winn pulmonary Dr. Magana ID specialist Dr. Reich psychiatrist Dr. Buckley [facility] COURSE: Patient admitted to telemetry floor. Serial troponin were negative. EKG revealed no acute ischemic changes. Patient was ruled out for acute [place]. Programmer Or Analyst closely followed. Patient refused stress test ,stating they are false negative. Antiplatelet therapy with Plavix provided. Patient was off aspirin due to GI distress. Patient on was on isosorbide ( patient allergic to nitroglycerin). Statin was continued along with beta rasta. Blood pressure was managed with calcium channel rasta and beta rasta, and remained stable. DVT prophylaxis provided. Supplemental oxygen provided as needed to keep pulse oximetry above 90%. Pulmonary toilet provided as needed. Theophylline was continued. No evidence of COPD exacerbation. [employer] closely followed. Seizure precautions were maintained. Keppra continued. Patient was encouraged compliance with medications. No further episodes of seizures. Programmer Or Analyst recommended transfer to [facility] for cardiac catheterization since patient declined stress test and had multiply admission for chest pain. Per discussion with the patient , patient declined transfer to [facility] but was agreeable for transfer to [facility] [place]. offshoring manager was arranging appropriate transfer. Patient with known history of gastritis and esophagitis. GI prophylaxis provided. Symptomatic care provided. Patient was able to tolerate diet. Nausea, vomiting and diarrhea were likely due to mild viral gastroenteritis and resolved. No further diarrhea. Antiemetics were on board as needed. Dietary recommendations implemented in plan of care to improve nutritional status. Pain management was addressed , and pain was controlled. Wound care provided for right lower extremity ulcer. No evidence of infection. Venous duplex bilateral lower extremity was negative. Infectious disease specialist closely followed and recommended to keep patient off antibiotic and observe closely. Patient i with known history of chronic renal insufficiency. Renal parameters and electrolytes were closely monitored , and nephrotoxins were avoided. Electrolytes were corrected as needed. Creatinine remained at baseline. Psychiatrist seen and evaluated the patient , and diagnosed patient with major depressive disorder and anxiety disorder. Psychiatrist optimized psychiatric medication regimen. Transfer was arranged to [facility] . Patient was subsequently transferred for cardiac catheterization via [facility] ambulance FINAL DIAGNOSES: Chest pain hypertensive urgency coronary artery disease : status post CABG 2009, status post angioplasty 2 stent, 2010. history of [place] 2 COPD/emphysema breakthrough seizure with a history of seizure disorder severe protein calorie malnutrition chronic renal insufficiency chronic back pain nonhealing right lower leg ulcer possible viral gastroenteritis major depressive disorder anxiety disorder DISCHARGE MEDICATIONS: See Medication Reconciliation list. DISCHARGE INSTRUCTIONS: Patient was transferred to [facility] [place] for cardiac catheterization. Kristine Black NP Jun 25, 2018 13:45
--- NOTE | 2018-06-27 14:16 | Diagnostic Imaging Report ---
APPROVED REPORT CPT Code: 11546 Present Symptoms Comments: BILATERAL LEGS PAIN. BILATERAL: Imaging reveals a patent deep venous system bilaterally. There is no evidence of thrombus within the femoral, popliteal or tibial segments. The greater saphenous veins are also within normal limits. Doppler indicates normal spontaneous flow within these segments.
== END 2018-06-23 18:20 | disposition short-term general hospital (02) | DRG 198 ==
LOC: EMR 10:55 → 2E 12:19 → EDBEDREQ 13:37
DX: R07.89 Other chest pain (principal); I25.10 Atherosclerotic heart disease of native coronary artery without angina pectoris; E43 Unspecified severe protein-calorie malnutrition; J44.9 Chronic obstructive pulmonary disease, unspecified; I16.0 Hypertensive urgency; G40.909 Epilepsy, unspecified, not intractable, without status epilepticus; Z95.5 Presence of coronary angioplasty implant and graft; Z95.1 Presence of aortocoronary bypass graft; I25.2 Old myocardial infarction; G89.29 Other chronic pain; M54.9 Dorsalgia, unspecified; I12.9 Hypertensive chronic kidney disease with stage 1 through stage 4 chronic kidney disease, or unspecified chronic kidney disease; N18.9 Chronic kidney disease, unspecified; K52.9 Noninfective gastroenteritis and colitis, unspecified; F32.9 Major depressive disorder, single episode, unspecified; F17.200 Nicotine dependence, unspecified, uncomplicated; L97.319 Non-pressure chronic ulcer of right ankle with unspecified severity; Z79.02 Long term (current) use of antithrombotics/antiplatelets; Z88.8 Allergy status to other drugs, medicaments and biological substances; Z68.1 Body mass index [BMI] 19.9 or less, adult; K29.70 Gastritis, unspecified, without bleeding
CPT/HCPCS: 36415; 71045; 80048; 80053; 80299; 83880; 84484; 85025; 85379; 87081; 93005; 93970; 94640; 94664; 97802; J7620

== ENCOUNTER 2018-07-09 22:31 | Inpatient (IN) | payer MEDICARE, MEDICAID ==
[~2018-07-09] VITALS: Ht 185.4 cm; Wt 62.8 kg
[2018-07-09 23:00] VITALS: BP 144/95
[2018-07-09] MEDS ORDERED: fentaNYL 100 mcg/2 mL IV ONE ×2 (23:15→23:30)
[2018-07-09] MEDS ORDERED: Sodium Chloride 500ML 500 ML IV ONE (23:15)
[2018-07-09 23:26] LABS: BASOPHILS % (AUTO) 2.2 % (0.0-2.0); EOSINOPHILS % (AUTO) 2.9 % (0.0-3.0); HEMATOCRIT 41.8 % (42.0-52.0); HEMOGLOBIN 13.2 G/DL (14.2-18.0); LYMPHOCYTES % (AUTO) 34.7 % (20.0-45.0); MEAN CORPUSCULAR VOLUME 83 FL (80-99); MONOCYTES % (AUTO) 8.9 % (1.0-10.0); NEUTROPHILS % (AUTO) 51.3 % (45.0-75.0); PLATELET COUNT 398 K/UL (150-450); RED BLOOD COUNT 5.05 M/UL (4.70-6.10); RED CELL DISTRIBUTION WIDTH 15.2 % (11.6-14.8); WHITE BLOOD COUNT 9.8 K/UL (4.8-10.8)
[2018-07-09 23:31] LABS: ANION GAP 9 mmol/L (5-15); BLOOD UREA NITROGEN 19 mg/dL (7-18); CALCIUM 8.6 MG/DL (8.5-10.1); CARBON DIOXIDE 24 MMOL/L (21-32); CHLORIDE 106 MMOL/L (98-107); CREATININE 1.2 MG/DL (0.55-1.30); POTASSIUM 4.8 MMOL/L (3.5-5.1); SODIUM 139 MMOL/L (136-145)
[2018-07-09 23:44] LABS: ALANINE AMINOTRANSFERASE 17 U/L (12-78); ALBUMIN/GLOBULIN RATIO 0.7 (1.0-2.7); ALKALINE PHOSPHATASE 113 U/L (46-116); ASPARTATE AMINO TRANSFERASE 25 U/L (15-37); BILIRUBIN,TOTAL 0.4 MG/DL (0.2-1.0); CKMB 0.9 NG/ML (0.0-3.6); CREATINE KINASE 114 U/L (26-308)
[2018-07-10] VITALS (7 sets, daily range): BP systolic 127–143; BP diastolic 61–92
[2018-07-10] MEDS ORDERED: fentaNYL 100 mcg/2 mL IV ONE (01:45)
[2018-07-10] MEDS ORDERED: OXYCODONE-ACET1 EAC5 ORAL (02:06)
--- NOTE | 2018-07-10 03:37 | Emergency Room Report ---
History of Present Illness General Chief Complaint: Chest Pain Source: Patient Present Illness HPI Patient is a 67-year-old male brought in by self after increased chest pain. Patient reportedly had recent cardiac catheterization. He had prior history of COPD as well as CHF. The patient denies prior history of diabetes. He had prior history of ulcers to his feet. The patient reportedly had recent procedure at [facility]. He reports having increased pain to his chest which he describes a sharp in nature. Allergies: Coded Allergies: EGG (Verified Allergy, Unknown, 09/22/15) MEPERIDINE (Verified Allergy, Unknown, 12/21/10) NITROGLYCERIN (Verified Allergy, Unknown, hives, 02/18/17) Patient History Past Medical History: see triage record Reviewed Nursing Documentation: PMH: Agreed; PSxH: Agreed Nursing Documentation-PMH Past Medical History: No History, Except For Hx Cardiac Problems: Yes - [place] with stents placed, CHF, Edema, Stent x2, CABG X3 Hx Hypertension: Yes Hx Pacemaker: No Hx Asthma: No Hx COPD: Yes Hx Diabetes: No Hx Cancer: No Hx Gastrointestinal Problems: Yes - Stomach Ulcer, Hep C Hx Dialysis: No - kidney problems Hx Neurological Problems: Yes - Seizures, HTN, Weakness Hx Cerebrovascular Accident: No Hx Transient Ischemic Attacks: No Hx Alzheimer's Disease: No Hx Encephalitis: No Hx Seizures: Yes Hx Epilepsy: No Hx Multiple Sclerosis: No Hx Cerebral Palsy: No Hx Amyotrophic Lat Sclerosis: No Hx Guillian-Paterson Syndrome: No Hx Paralysis: No Hx Peripheral Neuropathy: No Hx Spinal Cord Injury: No Hx Head Trauma: No Hx Traumatic Brain Injury: No Hx Memory Loss: No Hx Concentration Difficulty: No Hx Speech Problem: No Hx Tremors: Yes Hx Vertigo: No Hx Dizziness: No Hx Syncope: Yes Hx Headaches: Yes Hx Aphasia: No Hx Dysphasia: Yes Hx Numbness: No Hx Weakness: Yes Hx Fatigue: No Hx Neurologic Surgery: No Hx Brain Shunt: No Review of Systems All Other Systems: negative except mentioned in HPI Physical Exam Vital Signs Date Time Temp Pulse Resp B/P (MAP) Pulse Ox O2 Delivery O2 Flow Rate FiO2 07/09/18 22:38 98.2 121 20 144/95 94 Room Air 98.2 Sp02 EP Interpretation: reviewed, normal General Appearance: normal inspection, well appearing, no apparent distress, alert, GCS 15 Head: atraumatic ENT: normal ENT inspection, hearing grossly normal, normal voice Neck: normal inspection, full range of motion, supple, no bony tend Respiratory: normal inspection, lungs clear, normal breath sounds, no respiratory distress, no retraction, no wheezing Cardiovascular #1: regular rate, rhythm, no edema Gastrointestinal: normal inspection, normal bowel sounds, non tender, soft, no guarding, no hernia Genitourinary: no CVA tenderness Musculoskeletal: normal inspection, back normal, normal range of motion Neurologic: normal inspection, alert, responsive, speech normal Psychiatric: normal inspection, judgement/insight normal, mood/affect normal Skin: normal inspection, normal color, no rash Medical Decision Making Diagnostic Impression: Primary Impression: Atypical chest pain Additional Impressions: Emphysema lung CHF (congestive heart failure) ER Course Patient presented for chest pain. Differential diagnosis included but was not limited to acute coronary syndrome, pulmonary embolism, pneumonia, aortic dissection, shingles, pneumothorax, aortic dissection, esophageal rupture, pericarditis. Because of complexity of patient's case laboratory testing and imaging studies were ordered.EKG interpreted by me showed sinus tachycardia with rate of 107 with the peak T waves and mild diffuse ST depression patient was given pain medications with improvement in his heart rate.The patient was given IV Lasix. Dr. Phil Wright was contacted for inpatient management due to previous admission. Labs Test 07/09/18 23:00 White Blood Count 9.8 K/UL (4.8-10.8) Red Blood Count 5.05 M/UL (4.70-6.10) Hemoglobin 13.2 G/DL (14.2-18.0) Hematocrit 41.8 % (42.0-52.0) Mean Corpuscular Volume 83 FL (80-99) Mean Corpuscular Hemoglobin 26.1 PG (27.0-31.0) Mean Corpuscular Hemoglobin Concent 31.6 G/DL (32.0-36.0) Red Cell Distribution Width 15.2 % (11.6-14.8) Platelet Count 398 K/UL (150-450) Mean Platelet Volume 5.5 FL (6.5-10.1) Neutrophils (%) (Auto) 51.3 % (45.0-75.0) Lymphocytes (%) (Auto) 34.7 % (20.0-45.0) Monocytes (%) (Auto) 8.9 % (1.0-10.0) Eosinophils (%) (Auto) 2.9 % (0.0-3.0) Basophils (%) (Auto) 2.2 % (0.0-2.0) Sodium Level 139 MMOL/L (136-145) Potassium Level 4.8 MMOL/L (3.5-5.1) Chloride Level 106 MMOL/L (98-107) Carbon Dioxide Level 24 MMOL/L (21-32) Anion Gap 9 mmol/L (5-15) Blood Urea Nitrogen 19 mg/dL (7-18) Creatinine 1.2 MG/DL (0.55-1.30) Estimat Glomerular Filtration Rate > 60 mL/min (>60) Glucose Level 110 MG/DL (74-106) Calcium Level 8.6 MG/DL (8.5-10.1) Total Bilirubin 0.4 MG/DL (0.2-1.0) Aspartate Amino Transf (AST/SGOT) 25 U/L (15-37) Alanine Aminotransferase (ALT/SGPT) 17 U/L (12-78) Alkaline Phosphatase 113 U/L (46-116) Total Creatine Kinase 114 U/L (26-308) Creatine Kinase MB 0.9 NG/ML (0.0-3.6) Creatine Kinase MB Relative Index 0.7 Troponin I 0.000 ng/mL (0.000-0.056) Pro-B-Type Natriuretic Peptide 995 pg/mL (0-125) Total Protein 7.4 G/DL (6.4-8.2) Albumin 3.0 G/DL (3.4-5.0) Globulin 4.4 g/dL Albumin/Globulin Ratio 0.7 (1.0-2.7) Lipase 111 U/L (73-393) EKG Diagnostic Results Rate: tachycardiac Rhythm: NSR ST Segments: no acute changes Rhythm Strip Diag. Results EP Interpretation: yes Rhythm: NSR, no PVC's, no ectopy Last Vital Signs Date Time Temp Pulse Resp B/P (MAP) Pulse Ox O2 Delivery O2 Flow Rate FiO2 07/10/18 02:35 93 15 139/85 98 Room Air 07/10/18 02:09 98.2 Status: improved Disposition: ADMITTED INPATIENT Condition: Serious Referrals: Jessie Magana MD (PCP) Will Menezes MD Jul 10, 2018 03:36
[2018-07-10] MEDS ORDERED: Morphine Sulfate 4mg/ml Inj (IV USE ONLY) IVP PRN (07:00)
[2018-07-10] MEDS ORDERED: Mylanta II UD 30ml ORAL PRN (07:00)
[2018-07-10] MEDS ORDERED: LORazepam Inj 2mg/ml 1ml IV PRN (07:00)
[2018-07-10] MEDS ORDERED: Morphine Sulfate 2mg/ml Inj(IV/IM USE ONLY) IVP PRN (07:00)
[2018-07-10] MEDS: Heparin 5000 units/ml inj SUBQ SCH ×2 (08:20→20:37)
--- NOTE | 2018-07-10 10:34 | Diagnostic Imaging Report ---
Indication: Shortness of breath Technique: One view of the chest Comparison: 06/19/2018 Findings: The lungs are hyperinflated. The heart size is normal. The lungs and pleural spaces are clear. Again demonstrated is evidence of prior CABG Impression: No acute process Hyperinflation consistent with COPD
--- NOTE | 2018-07-10 11:51 | General Progress Note ---
Assessment/Plan Assessment/Plan (1) Opioid dependency (2) Pain of right lower extremity (3) Osteomyelitis of right lower extremity (4) Nonhealing ulcer of right lower extremity (5) DM (diabetes mellitus) Pt to discontinued off Morphine 2-4mg IV and to be started on Dilaudid 1mgIVPB Q4H PRN severe pain. I d/w him in detail about outpt suboxone for opioid dependency. Pt was d/w Dr. Rivers and he concurred. Subjective Date patient seen: Jul 10, 2018 Time patient seen: 10:00 - am Allergies: Coded Allergies: EGG (Verified Allergy, Unknown, 09/22/15) MEPERIDINE (Verified Allergy, Unknown, 12/21/10) NITROGLYCERIN (Verified Allergy, Unknown, hives, 02/18/17) Subjective Constitutional: Denies: chills, diaphoresis, fever, malaise, no symptoms, other , weakness HEENT: Denies: blurred vision, double vision, ear discharge, ear pain, eye pain , mouth pain, mouth swelling, no symptoms, nose congestion, nose pain, other, tearing, throat pain, throat swelling Cardiovascular: Denies: chest pain, edema, irregular heart rate, lightheadedness, no symptoms, other, palpitations, syncope Respiratory: Denies: SOB at rest, SOB with excertion, cough, no symptoms, orthopnea, other, shortness of breath, sputum, stridor, wheezing Gastrointestinal/Abdominal: Denies: abdomen distended, abdominal pain, black stools, blood in stool, constipated, diarrhea, difficulty swallowing, nausea, no symptoms, other, poor appetite, poor fluid intake, rectal bleeding, tarry stools, vomiting Genitourinary: Denies: burning, discharge, flank pain, frequency, hematuria, incontinence, no symptoms, other, pain, urgency 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: Denies: anxiety, depressed, emotional problems, headache, no symptoms, numbness, other, paresthesia, pre-existing deficit, seizure, tingling, tremors, weakness Endocrine: Denies: excessive sweating, flushing, increased hunger, increased thirst, increased urine, intolerance to cold, intolerance to heat, no symptoms, other, unexplained weight gain, unexplained weight loss Hematologic/Lymphatic: Denies: anemia, easy bleeding, easy bruising, no symptoms, other Subjective Pt is admitted under the care of Dr. Dalton. He has a h/o heroin abuse and has been on high doses of Opioid medications such has Oxycodone 30mg tabs 120 tabs and Dilaudid 8mg tabs 90 tabs monthly which was due to hospice, however he is no longer on hospice care.. He continues to c/o RLE pain due to non healing ulcer and was started on Morphine 2-4mg IV Q4H PRN with minimal pain relief due to his opioid tolerance. We were consulted so patient has adequate pain control while here in the hospital. I d/w him in detail about his opioid use, dependency and tolerance and the option for suboxone as an outpt. He seems to understand. Objective Last 24 Hour Vital Signs Date Time Temp Pulse Resp B/P (MAP) Pulse Ox O2 Delivery O2 Flow Rate FiO2 07/10/18 09:00 Room Air 07/10/18 08:00 93 07/10/18 08:00 97.0 92 20 139/82 (101) 96 97.0 07/10/18 04:15 98.2 86 18 127/68 98 Room Air 208.8 07/10/18 03:46 86 18 127/68 98 Room Air 07/10/18 03:00 83 19 143/63 100 Room Air 07/10/18 02:35 93 15 139/85 98 Room Air 07/10/18 02:25 87 15 07/10/18 02:09 98.2 07/09/18 23:35 98.2 07/09/18 23:00 98.2 20 144/95 94 Room Air 98.2 07/09/18 22:38 98.2 121 20 144/95 94 Room Air 98.2 Intake and Output 07/09/18 07/10/18 19:00 07:00 Output Total 300 ml Balance -300 ml Output Urine Total 300 ml # Voids 2 Laboratory Tests 07/09/18 23:00: White Blood Count 9.8, Red Blood Count 5.05, Hemoglobin 13.2L, Hematocrit 41.8L , Mean Corpuscular Volume 83, Mean Corpuscular Hemoglobin 26.1L, Mean Corpuscular Hemoglobin Concent 31.6L, Red Cell Distribution Width 15.2H, Platelet Count 398, Mean Platelet Volume 5.5L, Neutrophils (%) (Auto) 51.3, Lymphocytes (%) (Auto) 34.7, Monocytes (%) (Auto) 8.9, Eosinophils (%) (Auto) 2.9, Basophils (%) (Auto) 2.2H, Sodium Level 139, Potassium Level 4.8, Chloride Level 106, Carbon Dioxide Level 24, Anion Gap 9, Blood Urea Nitrogen 19H, Creatinine 1.2, Estimat Glomerular Filtration Rate > 60, Glucose Level 110H, Calcium Level 8.6, Total Bilirubin 0.4, Aspartate Amino Transf (AST/SGOT) 25, Alanine Aminotransferase (ALT/SGPT) 17, Alkaline Phosphatase 113, Total Creatine Kinase 114, Creatine Kinase MB 0.9, Creatine Kinase MB Relative Index 0.7, Troponin I 0.000, Pro-B-Type Natriuretic Peptide 995H, Total Protein 7.4, Albumin 3.0L, Globulin 4.4, Albumin/Globulin Ratio 0.7L, Lipase 111 Height (Feet): 6 Height (Inches): 1.00 Weight (Pounds): 130 Objective General Appearance: no apparent distress, alert EENT: PERRL/EOMI, normal ENT inspection Neck: non-tender, normal alignment Cardiovascular: normal rate, regular rhythm Respiratory/Chest: lungs clear, normal breath sounds Abdomen: non tender, soft Extremities: other - wound RLE lateral with dressing C/D/I Edema: trace edema Neurologic: alert, oriented x 3 Rafita Zuñiga Jul 10, 2018 11:51
[2018-07-10] MEDS ORDERED: HYDROmorphone 1mg/ml Carpuject IVPB PRN ×2 (12:30→13:37)
--- NOTE | 2018-07-10 13:40 | Consultation ---
History of Present Illness General Date patient seen: Jul 10, 2018 Chief Complaint: Chest Pain Present Illness HPI 67-year-old male with cachexia, CAD, CABG, foot ulcer, chronic pain and depression brought in by self after increased chest pain. Patient reportedly had recent cardiac catheterization. The patient reportedly had recent procedure at [facility]. He reports having increased pain to his chest which he describes a sharp in nature. Allergies: Coded Allergies: EGG (Verified Allergy, Unknown, 09/22/15) MEPERIDINE (Verified Allergy, Unknown, 12/21/10) NITROGLYCERIN (Verified Allergy, Unknown, hives, 02/18/17) Medication History Scheduled Amlodipine Besylate* (Amlodipine Besylate*), 10 MG ORAL DAILY, (Reported) Cephalexin* (Keflex*), 500 MG ORAL EVERY 8 HOURS, (Reported) Clopidogrel Bisulfate* (Plavix*), 75 MG ORAL DAILY, (Reported) Hydromorphone Hcl (Dilaudid), 2 MG PO EVERY 4 HOURS Levetiracetam (Keppra), 500 MG ORAL DAILY, (Reported) Metoprolol Succinate* (Metoprolol Succinate*), 50 MG ORAL BID, (Reported) Mirtazapine* (Remeron*), 15 MG ORAL BEDTIME, (Reported) Ranitidine Hcl* (Zantac*), 150 MG ORAL Q12HR Theophylline (Theodur*), 100 MG ORAL EVERY 12 HOURS Scheduled PRN Albuterol Sulfate (Ventolin Hfa), 1 PUFF INH EVERY 6 HOURS PRN Docusate Sodium* (Colace*), 100 MG ORAL DAILY PRN for Constipation, (Reported) Ondansetron Hcl* (Zofran*), 8 MG ORAL Q6H PRN for Nausea & Vomiting, (Reported) Oxycodone Hcl/Acetaminophen 10-325* (Oxycodone-Acetaminophen 10-325*), 1 TAB ORAL Q4H PRN for For Pain, (Reported) Patient History Healthcare decision maker Resuscitation status Advanced Directive on File Past Medical/Surgical History Past Medical/Surgical History: (1) Hx of CABG (2) Chest pain (3) Emphysema lung (4) Decubitus ulcer, ankle, right, unstageable (5) Cardiac dysrhythmia Review of Systems All Other Systems: negative except mentioned in HPI Physical Exam General Appearance: cachetic Lines, tubes and drains: peripheral, central line HEENT: normocephalic, anicteric Neck: non-tender, normal alignment Respiratory/Chest: chest wall non-tender, lungs clear, no respiratory distress Cardiovascular/Chest: normal peripheral pulses, normal rate Abdomen: normal bowel sounds Genitourinary/Rectal: normal genital exam Last 24 Hour Vital Signs Date Time Temp Pulse Resp B/P (MAP) Pulse Ox O2 Delivery O2 Flow Rate FiO2 07/10/18 12:00 98.0 99 20 137/92 (107) 100 98.0 07/10/18 09:00 Room Air 07/10/18 08:00 93 07/10/18 08:00 97.0 92 20 139/82 (101) 96 97.0 07/10/18 04:15 98.2 86 18 127/68 98 Room Air 208.8 07/10/18 03:46 86 18 127/68 98 Room Air 07/10/18 03:00 83 19 143/63 100 Room Air 07/10/18 02:35 93 15 139/85 98 Room Air 07/10/18 02:25 87 15 07/10/18 02:09 98.2 07/09/18 23:35 98.2 07/09/18 23:00 98.2 20 144/95 94 Room Air 98.2 07/09/18 22:38 98.2 121 20 144/95 94 Room Air 98.2 Intake and Output 07/09/18 07/10/18 19:00 07:00 Output Total 300 ml Balance -300 ml Output Urine Total 300 ml # Voids 2 Laboratory Tests Test 07/09/18 23:00 White Blood Count 9.8 K/UL (4.8-10.8) Red Blood Count 5.05 M/UL (4.70-6.10) Hemoglobin 13.2 G/DL (14.2-18.0) L Hematocrit 41.8 % (42.0-52.0) L Mean Corpuscular Volume 83 FL (80-99) Mean Corpuscular Hemoglobin 26.1 PG (27.0-31.0) L Mean Corpuscular Hemoglobin Concent 31.6 G/DL (32.0-36.0) L Red Cell Distribution Width 15.2 % (11.6-14.8) H Platelet Count 398 K/UL (150-450) Mean Platelet Volume 5.5 FL (6.5-10.1) L Neutrophils (%) (Auto) 51.3 % (45.0-75.0) Lymphocytes (%) (Auto) 34.7 % (20.0-45.0) Monocytes (%) (Auto) 8.9 % (1.0-10.0) Eosinophils (%) (Auto) 2.9 % (0.0-3.0) Basophils (%) (Auto) 2.2 % (0.0-2.0) H Sodium Level 139 MMOL/L (136-145) Potassium Level 4.8 MMOL/L (3.5-5.1) Chloride Level 106 MMOL/L (98-107) Carbon Dioxide Level 24 MMOL/L (21-32) Anion Gap 9 mmol/L (5-15) Blood Urea Nitrogen 19 mg/dL (7-18) H Creatinine 1.2 MG/DL (0.55-1.30) Estimat Glomerular Filtration Rate > 60 mL/min (>60) Glucose Level 110 MG/DL (74-106) H Calcium Level 8.6 MG/DL (8.5-10.1) Total Bilirubin 0.4 MG/DL (0.2-1.0) Aspartate Amino Transf (AST/SGOT) 25 U/L (15-37) Alanine Aminotransferase (ALT/SGPT) 17 U/L (12-78) Alkaline Phosphatase 113 U/L (46-116) Total Creatine Kinase 114 U/L (26-308) Creatine Kinase MB 0.9 NG/ML (0.0-3.6) Creatine Kinase MB Relative Index 0.7 Troponin I 0.000 ng/mL (0.000-0.056) Pro-B-Type Natriuretic Peptide 995 pg/mL (0-125) H Total Protein 7.4 G/DL (6.4-8.2) Albumin 3.0 G/DL (3.4-5.0) L Globulin 4.4 g/dL Albumin/Globulin Ratio 0.7 (1.0-2.7) L Lipase 111 U/L (73-393) Height (Feet): 6 Height (Inches): 1.00 Weight (Pounds): 130 Medications Current Medications Medications (Trade) Dose Ordered Sig/Aminata Route PRN Reason Start Time Stop Time Status Last Admin Dose Admin Acetaminophen (Tylenol) 650 mg Q4H PRN ORAL fever 07/10/18 07:00 08/09/18 06:59 Al Hydroxide/Mg Hydroxide (Mylanta II) 30 ml Q6H PRN ORAL dyspepsia 07/10/18 07:00 08/09/18 06:59 Dextrose (Dextrose 50%) 25 ml STAT PRN IV Hypoglycemia 07/10/18 07:00 08/09/18 06:59 Dextrose (Dextrose 50%) 50 ml STAT PRN IV Hypoglycemia 07/10/18 07:15 08/09/18 07:14 Heparin Sodium (Porcine) (Heparin 5000 units/ml) 5,000 units EVERY 12 HOURS SUBQ 07/10/18 09:00 08/09/18 08:59 Hydromorphone HCl (Dilaudid) 1 mg Q4H PRN IVPB Severe Pain (Pain Scale 7-10) 07/10/18 12:30 07/17/18 12:29 Lorazepam (Ativan 2mg/ml 1ml) 0.5 mg Q4H PRN IV For Anxiety 07/10/18 07:00 07/17/18 06:59 Ondansetron HCl (Zofran) 4 mg Q6H PRN IVP Nausea & Vomiting 07/10/18 07:00 08/09/18 06:59 Polyethylene Glycol (Miralax) 17 gm HSPRN PRN ORAL Constipation 07/10/18 21:00 08/09/18 20:59 Zolpidem Tartrate (Ambien) 5 mg HSPRN PRN ORAL Insomnia 07/10/18 21:00 07/17/18 20:59 Assessment/Plan Problem List: (1) ACS (acute coronary syndrome) ICD Codes: I24.9 - Acute coronary syndrome SNOMED: 883737428 (2) Hx of CABG ICD Codes: Z95.1 - History of coronary artery bypass surgery SNOMED: 055382206 (3) Decubitus ulcer, ankle, right, unstageable ICD Codes: L89.510 - Pressure ulcer of right ankle, unstageable SNOMED: 322613520 (4) Chest pain ICD Codes: R07.9 - Chest pain SNOMED: 61633233 (5) Cardiac dysrhythmia ICD Codes: I49.9 - Cardiac arrhythmia, unspecified SNOMED: 09362266 (6) Emphysema lung ICD Codes: J43.9 - Emphysema, unspecified SNOMED: 28904826 (7) Ulcer of right lower leg ICD Codes: L97.919 - Non-pressure chronic ulcer of unspecified part of right lower leg with unspecified severity SNOMED: 42915905, 633772522, 828927292 Assessment/Plan serial ekg, troponin echo' cardio to see wound care symptomatic treatment pscy to see. Jessie Magana MD Jul 10, 2018 13:40
[2018-07-10] MEDS: HYDROmorphone 1mg/ml Carpuject IVP PRN ×4 (14:16→23:35)
--- NOTE | 2018-07-10 19:15 | Consultation ---
History of Present Illness General Date patient seen: Jul 10, 2018 Time patient seen: 15:25 Chief Complaint: Chest Pain Present Illness HPI 67 year old AAM presents with yet again chest pain. Recent admission to [facility] for cardiac cath, no intervention performed. Patient has multiple admissions for chest pain refractory to anti anginal therapies. Poor compliance to medications. Troponin negative thus far Allergies: Coded Allergies: EGG (Verified Allergy, Unknown, 09/22/15) MEPERIDINE (Verified Allergy, Unknown, 12/21/10) NITROGLYCERIN (Verified Allergy, Unknown, hives, 02/18/17) Medication History Scheduled Amlodipine Besylate* (Amlodipine Besylate*), 10 MG ORAL DAILY, (Reported) Cephalexin* (Keflex*), 500 MG ORAL EVERY 8 HOURS, (Reported) Clopidogrel Bisulfate* (Plavix*), 75 MG ORAL DAILY, (Reported) Hydromorphone Hcl (Dilaudid), 2 MG PO EVERY 4 HOURS Levetiracetam (Keppra), 500 MG ORAL DAILY, (Reported) Metoprolol Succinate* (Metoprolol Succinate*), 50 MG ORAL BID, (Reported) Mirtazapine* (Remeron*), 15 MG ORAL BEDTIME, (Reported) Ranitidine Hcl* (Zantac*), 150 MG ORAL Q12HR Theophylline (Theodur*), 100 MG ORAL EVERY 12 HOURS Scheduled PRN Albuterol Sulfate (Ventolin Hfa), 1 PUFF INH EVERY 6 HOURS PRN Docusate Sodium* (Colace*), 100 MG ORAL DAILY PRN for Constipation, (Reported) Ondansetron Hcl* (Zofran*), 8 MG ORAL Q6H PRN for Nausea & Vomiting, (Reported) Oxycodone Hcl/Acetaminophen 10-325* (Oxycodone-Acetaminophen 10-325*), 1 TAB ORAL Q4H PRN for For Pain, (Reported) Patient History Healthcare decision maker Resuscitation status Advanced Directive on File Review of Systems Constitutional: Reports: no symptoms Eye: Reports: no symptoms ENT: Reports: no symptoms Respiratory: Reports: shortness of breath Cardiovascular: Reports: chest pain, palpitations Gastrointestinal: Reports: no symptoms Genitourinary: Reports: no symptoms Musculoskeletal: Reports: no symptoms Skin: Reports: no symptoms Psychiatric: Reports: no symptoms Neurological: Reports: no symptoms Endocrine: Reports: no symptoms Hematologic/Lymphatic: Reports: no symptoms Physical Exam General Appearance: no apparent distress, alert Lines, tubes and drains: peripheral HEENT: normocephalic, atraumatic Neck: non-tender, normal alignment, supple, normal inspection Respiratory/Chest: chest wall non-tender, lungs clear Cardiovascular/Chest: normal peripheral pulses, normal rate, regular rhythm Abdomen: normal bowel sounds, non tender, soft, no organomegaly Extremities: normal range of motion, non-tender Neurologic: rfid developer II-XII grossly normal Last 24 Hour Vital Signs Date Time Temp Pulse Resp B/P (MAP) Pulse Ox O2 Delivery O2 Flow Rate FiO2 07/10/18 16:00 98.2 90 20 139/73 (95) 94 98.2 07/10/18 16:00 92 07/10/18 14:46 98.0 07/10/18 12:00 98.0 99 20 137/92 (107) 100 98.0 07/10/18 12:00 99 07/10/18 09:00 Room Air 07/10/18 08:00 93 07/10/18 08:00 97.0 92 20 139/82 (101) 96 97.0 07/10/18 04:15 98.2 86 18 127/68 98 Room Air 208.8 07/10/18 03:46 86 18 127/68 98 Room Air 07/10/18 03:00 83 19 143/63 100 Room Air 07/10/18 02:35 93 15 139/85 98 Room Air 07/10/18 02:25 87 15 07/10/18 02:09 98.2 07/09/18 23:35 98.2 07/09/18 23:00 98.2 20 144/95 94 Room Air 98.2 07/09/18 22:38 98.2 121 20 144/95 94 Room Air 98.2 Intake and Output 07/09/18 07/10/18 19:00 07:00 Output Total 300 ml Balance -300 ml Output Urine Total 300 ml # Voids 2 Laboratory Tests Test 07/09/18 23:00 White Blood Count 9.8 K/UL (4.8-10.8) Red Blood Count 5.05 M/UL (4.70-6.10) Hemoglobin 13.2 G/DL (14.2-18.0) L Hematocrit 41.8 % (42.0-52.0) L Mean Corpuscular Volume 83 FL (80-99) Mean Corpuscular Hemoglobin 26.1 PG (27.0-31.0) L Mean Corpuscular Hemoglobin Concent 31.6 G/DL (32.0-36.0) L Red Cell Distribution Width 15.2 % (11.6-14.8) H Platelet Count 398 K/UL (150-450) Mean Platelet Volume 5.5 FL (6.5-10.1) L Neutrophils (%) (Auto) 51.3 % (45.0-75.0) Lymphocytes (%) (Auto) 34.7 % (20.0-45.0) Monocytes (%) (Auto) 8.9 % (1.0-10.0) Eosinophils (%) (Auto) 2.9 % (0.0-3.0) Basophils (%) (Auto) 2.2 % (0.0-2.0) H Sodium Level 139 MMOL/L (136-145) Potassium Level 4.8 MMOL/L (3.5-5.1) Chloride Level 106 MMOL/L (98-107) Carbon Dioxide Level 24 MMOL/L (21-32) Anion Gap 9 mmol/L (5-15) Blood Urea Nitrogen 19 mg/dL (7-18) H Creatinine 1.2 MG/DL (0.55-1.30) Estimat Glomerular Filtration Rate > 60 mL/min (>60) Glucose Level 110 MG/DL (74-106) H Calcium Level 8.6 MG/DL (8.5-10.1) Total Bilirubin 0.4 MG/DL (0.2-1.0) Aspartate Amino Transf (AST/SGOT) 25 U/L (15-37) Alanine Aminotransferase (ALT/SGPT) 17 U/L (12-78) Alkaline Phosphatase 113 U/L (46-116) Total Creatine Kinase 114 U/L (26-308) Creatine Kinase MB 0.9 NG/ML (0.0-3.6) Creatine Kinase MB Relative Index 0.7 Troponin I 0.000 ng/mL (0.000-0.056) Pro-B-Type Natriuretic Peptide 995 pg/mL (0-125) H Total Protein 7.4 G/DL (6.4-8.2) Albumin 3.0 G/DL (3.4-5.0) L Globulin 4.4 g/dL Albumin/Globulin Ratio 0.7 (1.0-2.7) L Lipase 111 U/L (73-393) Height (Feet): 6 Height (Inches): 1.00 Weight (Pounds): 130 Medications Current Medications Medications (Trade) Dose Ordered Sig/Aminata Route PRN Reason Start Time Stop Time Status Last Admin Dose Admin Acetaminophen (Tylenol) 650 mg Q4H PRN ORAL fever 07/10/18 07:00 08/09/18 06:59 Al Hydroxide/Mg Hydroxide (Mylanta II) 30 ml Q6H PRN ORAL dyspepsia 07/10/18 07:00 08/09/18 06:59 Dextrose (Dextrose 50%) 25 ml STAT PRN IV Hypoglycemia 07/10/18 07:00 08/09/18 06:59 Dextrose (Dextrose 50%) 50 ml STAT PRN IV Hypoglycemia 07/10/18 07:15 08/09/18 07:14 Heparin Sodium (Porcine) (Heparin 5000 units/ml) 5,000 units EVERY 12 HOURS SUBQ 07/10/18 09:00 08/09/18 08:59 Hydromorphone HCl (Dilaudid) 1 mg Q3H PRN IVP Severe Pain (Pain Scale 7-10) 07/10/18 14:12 07/17/18 14:11 07/10/18 17:27 Lorazepam (Ativan 2mg/ml 1ml) 0.5 mg Q4H PRN IV For Anxiety 07/10/18 07:00 07/17/18 06:59 Ondansetron HCl (Zofran) 4 mg Q6H PRN IVP Nausea & Vomiting 07/10/18 07:00 08/09/18 06:59 Polyethylene Glycol (Miralax) 17 gm HSPRN PRN ORAL Constipation 07/10/18 21:00 08/09/18 20:59 Zolpidem Tartrate (Ambien) 5 mg HSPRN PRN ORAL Insomnia 07/10/18 21:00 07/17/18 20:59 Assessment/Plan Status: stable Assessment/Plan Assessment Problem List: (1) ACS (acute coronary syndrome) (2) Hx of CABG (3) Decubitus ulcer, ankle, right, unstageable (4) Chest pain (5) Cardiac dysrhythmia (6) Emphysema lung (7) Ulcer of right lower leg PLAN Serial EKG/Troponin Anti-anginal therapy Ranexa 500 BID Nitro patch Metoprolol Aspirin Statin Cardaic rehab No further work up needed given recent cardiac cath Adonis Winn M.D. Jul 10, 2018 19:15
[2018-07-10] MEDS ORDERED: Miralax 17gm pkt ORAL PRN (21:00)
[2018-07-10] MEDS ORDERED: Zolpidem 5mg tab ORAL PRN (21:00)
--- NOTE | 2018-07-10 23:29 | Consultation ---
History of Present Illness General Date patient seen: Jul 10, 2018 Chief Complaint: Chest Pain Present Illness HPI 67-year-old male brought in by self after increased chest pain. the pt pw depressed mood, low appetite and anhedonia no si.hi Allergies: Coded Allergies: EGG (Verified Allergy, Unknown, 09/22/15) MEPERIDINE (Verified Allergy, Unknown, 12/21/10) NITROGLYCERIN (Verified Allergy, Unknown, hives, 02/18/17) Medication History Scheduled Amlodipine Besylate* (Amlodipine Besylate*), 10 MG ORAL DAILY, (Reported) Cephalexin* (Keflex*), 500 MG ORAL EVERY 8 HOURS, (Reported) Clopidogrel Bisulfate* (Plavix*), 75 MG ORAL DAILY, (Reported) Hydromorphone Hcl (Dilaudid), 2 MG PO EVERY 4 HOURS Levetiracetam (Keppra), 500 MG ORAL DAILY, (Reported) Metoprolol Succinate* (Metoprolol Succinate*), 50 MG ORAL BID, (Reported) Mirtazapine* (Remeron*), 15 MG ORAL BEDTIME, (Reported) Ranitidine Hcl* (Zantac*), 150 MG ORAL Q12HR Theophylline (Theodur*), 100 MG ORAL EVERY 12 HOURS Scheduled PRN Albuterol Sulfate (Ventolin Hfa), 1 PUFF INH EVERY 6 HOURS PRN Docusate Sodium* (Colace*), 100 MG ORAL DAILY PRN for Constipation, (Reported) Ondansetron Hcl* (Zofran*), 8 MG ORAL Q6H PRN for Nausea & Vomiting, (Reported) Oxycodone Hcl/Acetaminophen 10-325* (Oxycodone-Acetaminophen 10-325*), 1 TAB ORAL Q4H PRN for For Pain, (Reported) Patient History Limited by: medical condition History Provided By: Patient, Medical Record, PMD Healthcare decision maker Resuscitation status Advanced Directive on File Past Medical/Surgical History Past Medical/Surgical History: (1) Esophagitis (2) Shingles (3) CAD (coronary artery disease) (4) Gastritis (5) Gastroenteritis (6) Hypothyroidism (7) Seizure disorder (8) Peripheral vascular disease (9) ATN (acute tubular necrosis) (10) Severe malnutrition (11) HTN (hypertension) (12) HTN (hypertension) (13) Vikki esophagitis (14) Cellulitis, leg (15) DM (diabetes mellitus) (16) Diabetes mellitus type II, uncontrolled (17) COPD exacerbation (18) Osteomyelitis of right lower extremity (19) SOB (shortness of breath) (20) Chest pain (21) Odynophagia (22) Dehydration (23) Hyperkalemia (24) Edema (25) Renal failure (26) Syncope (27) Acute bronchitis (28) Bronchitis (29) Pneumonia (30) Chronic pain (31) Diabetic foot ulcer (32) ACS (acute coronary syndrome) (33) ACS (acute coronary syndrome) (34) ACS (acute coronary syndrome) (35) ACS (acute coronary syndrome) (36) ACS (acute coronary syndrome) (37) ACS (acute coronary syndrome) (38) Right hip pain (39) COPD exacerbation (40) COPD exacerbation (41) COPD exacerbation (42) COPD exacerbation (43) Peripheral arterial disease (44) FTT (failure to thrive) in adult (45) Acute on chronic renal failure (46) History of heart attack (47) Hip dislocation, right (48) Osteomyelitis of right leg (49) Swelling of ankle joint, right (50) Cellulitis of right leg (51) Chronic ulcer of right leg (52) Injury of lower extremity (53) Acute encephalopathy (54) Intractable back pain (55) Chest pain with minimal risk of acute coronary syndrome (56) Closed fracture of tibia and fibula with malunion (57) Pain of right lower extremity (58) Cellulitis of right ankle (59) Nonhealing ulcer of right lower extremity (60) CHF (congestive heart failure) (61) Emphysema lung (62) Atypical chest pain (63) Cardiac dysrhythmia (64) Chest pain (65) ACS (acute coronary syndrome) (66) Decubitus ulcer, ankle, right, unstageable (67) ACS (acute coronary syndrome) (68) Ulcer of right lower leg Review of Systems Psychiatric: Reports: anxiety, depressed feelings, emotional problems Physical Exam General Appearance: no apparent distress, alert Neurologic: oriented x 3, responsive, depressed affect Last 24 Hour Vital Signs Date Time Temp Pulse Resp B/P (MAP) Pulse Ox O2 Delivery O2 Flow Rate FiO2 07/10/18 21:00 Room Air 07/10/18 20:00 98.2 97 18 137/61 (86) 96 98.2 07/10/18 20:00 97 07/10/18 16:00 98.2 90 20 139/73 (95) 94 98.2 07/10/18 16:00 92 07/10/18 14:46 98.0 07/10/18 12:00 98.0 99 20 137/92 (107) 100 98.0 07/10/18 12:00 99 07/10/18 09:00 Room Air 07/10/18 08:00 93 07/10/18 08:00 97.0 92 20 139/82 (101) 96 97.0 07/10/18 04:15 98.2 86 18 127/68 98 Room Air 208.8 07/10/18 03:46 86 18 127/68 98 Room Air 07/10/18 03:00 83 19 143/63 100 Room Air 07/10/18 02:35 93 15 139/85 98 Room Air 07/10/18 02:25 87 15 07/10/18 02:09 98.2 07/09/18 23:35 98.2 Intake and Output 07/09/18 07/10/18 19:00 07:00 Output Total 300 ml Balance -300 ml Output Urine Total 300 ml # Voids 2 Height (Feet): 6 Height (Inches): 1.00 Weight (Pounds): 130 Medications Current Medications Medications (Trade) Dose Ordered Sig/Aminata Route PRN Reason Start Time Stop Time Status Last Admin Dose Admin Acetaminophen (Tylenol) 650 mg Q4H PRN ORAL fever 07/10/18 07:00 08/09/18 06:59 Al Hydroxide/Mg Hydroxide (Mylanta II) 30 ml Q6H PRN ORAL dyspepsia 07/10/18 07:00 08/09/18 06:59 Dextrose (Dextrose 50%) 25 ml STAT PRN IV Hypoglycemia 07/10/18 07:00 08/09/18 06:59 Dextrose (Dextrose 50%) 50 ml STAT PRN IV Hypoglycemia 07/10/18 07:15 08/09/18 07:14 Heparin Sodium (Porcine) (Heparin 5000 units/ml) 5,000 units EVERY 12 HOURS SUBQ 07/10/18 09:00 08/09/18 08:59 07/10/18 20:37 Hydromorphone HCl (Dilaudid) 1 mg Q3H PRN IVP Severe Pain (Pain Scale 7-10) 07/10/18 14:12 07/17/18 14:11 07/10/18 20:36 Lorazepam (Ativan 2mg/ml 1ml) 0.5 mg Q4H PRN IV For Anxiety 07/10/18 07:00 07/17/18 06:59 Ondansetron HCl (Zofran) 4 mg Q6H PRN IVP Nausea & Vomiting 07/10/18 07:00 08/09/18 06:59 Polyethylene Glycol (Miralax) 17 gm HSPRN PRN ORAL Constipation 07/10/18 21:00 08/09/18 20:59 Zolpidem Tartrate (Ambien) 5 mg HSPRN PRN ORAL Insomnia 07/10/18 21:00 07/17/18 20:59 Assessment/Plan Status: stable Assessment/Plan MDD anxiety remeron 45mg qhs provided abdulaziz/Rachael Huynh MD Jul 10, 2018 23:29
[2018-07-11] VITALS: BP 134/82
--- NOTE | 2018-07-11 | History and Physical Report ---
DATE OF ADMISSION: 07/10/2018 CHIEF COMPLAINT: The patient is a 67-year-old male, presents with chief complaint of chest pain. HISTORY OF PRESENT ILLNESS: The patient has a history of chronic chest pain. The patient was last admitted to [facility] from 06/19/2018 to 06/23/2018. The patient was discharged to [facility] for cardiac catheterization. The patient is status post cardiac catheterization in early June 2018. The patient states he ran out of his pain medications on 07/06/2018. The patient has been unable to make an appointment for refill of pain medication. The patient states he began to experience chest pain on 07/09/2018. The patient states he turned and felt a pop in his chest. The patient was also experiencing shortness of breath. The patient had nausea and vomiting. The patient presented to [facility] with chief complaint of chest pain. The patient is admitted for chest pain to rule out acute coronary syndrome. REVIEW OF SYSTEMS: CONSTITUTIONAL: The patient denies weight loss or gain. The patient denies fevers or chills. HEENT: The patient denies ear or throat pain. The patient denies headache. CARDIOVASCULAR: The patient complains of chest pain as above. The patient denies palpitations. CHEST: The patient complains of shortness of breath as above. The patient has wheezes. ABDOMEN: The patient denies nausea, vomiting, diarrhea, or constipation. GENITOURINARY: The patient denies dysuria or increased frequency of urination. NEUROMUSCULAR: The patient denies seizures or generalized weakness. PAST MEDICAL HISTORY: Significant for, 1. Coronary artery disease. 2. History of myocardial infarction x2. 3. Hypertension. 4. Chronic obstructive pulmonary disease. 5. Seizure disorder. PAST SURGICAL HISTORY: Significant for, 1. Cardiac catheterization in early 06/2018 at [facility] as above. 2. Coronary artery bypass graft in 2009 and again in 2010. 3. Coronary angioplasty with stent placement x2. CURRENT MEDICATIONS: 1. Albuterol metered-dose inhaler two puffs p.o. q.i.d. p.r.n. 2. Amlodipine 10 mg p.o. daily. 3. Clopidogrel 75 mg p.o. daily. 4. Dilaudid 2 mg p.o. q.4 hours. 5. Keppra 500 mg p.o. twice daily. 6. Metoprolol 50 mg p.o. twice daily. 7. Remeron 15 mg p.o. at bedtime. 8. Zantac 150 mg p.o. twice daily. 9. Wilfrido-Dur 100 mg p.o. twice daily. ALLERGIES: 1. Nitroglycerin. 2. Demerol. 3. Egg. SOCIAL HISTORY: The patient is . However, he lives with his ex-. The patient admits to tobacco use of one-quarter pack per day. The patient denies alcohol use. PHYSICAL EXAMINATION: VITAL SIGNS: Temperature 98.2, respirations 18, pulse 86, blood pressure 127/60. GENERAL: The patient is well-developed, well-nourished thin-appearing male, in no apparent distress. HEENT: Pupils equal and responsive to light and accommodation. Extraocular movements are intact. NECK: Supple without lymphadenopathy. CHEST: Lungs are clear to auscultation bilaterally without wheezes or rales. CARDIOVASCULAR: Regular rhythm and rate. S1 and S2 normal without murmurs, rubs, or gallops. ABDOMEN: Soft, nontender, nondistended with positive bowel sounds. No evidence of hepatosplenomegaly. Currently, no rebound or guarding noted. EXTREMITIES: Negative for clubbing, cyanosis, or edema. RECTAL/GENITAL: Refused. NEUROLOGICAL: Cranial nerves II through XII are grossly intact without focal deficits. Motor strength is 5/5 bilaterally. Deep tendon reflexes are 2+ plantar. LABORATORY STUDIES: WBC 9.8, hemoglobin 13.2, hematocrit 41.8, platelets 398,000. Sodium 139, potassium 4.8, chloride 106, CO2 24, BUN 19, creatinine 1.2, glucose 110, troponin 0.0. BNP elevated at 995. ASSESSMENT: This is a 67-year-old male, 1. Chest pain. 2. Coronary artery disease. 3. Hypertension. 4. Chronic obstructive pulmonary disease. 5. Seizure disorder. TREATMENT: 1. Chest pain/coronary artery disease. A Cardiology consultation has been obtained with Dr. Winn. The patient has been scheduled for a stress test. We will follow recommendation of Cardiology. 2. Hypertension. Continue Norvasc and metoprolol as above. 3. Chronic obstructive pulmonary disease. Continue albuterol nebulized q. 4h. p.r.n. 4. Seizure disorder. Continue Jason as above. Shantanu Reyna M.D. DR: FREDO JOB#: [id number] CC:
[2018-07-11] MEDS: HYDROmorphone 1mg/ml Carpuject IVP PRN ×7 (02:34→23:49)
[2018-07-11 04:00] VITALS: BP 146/69
[2018-07-11 07:19] LABS: BASOPHILS % (AUTO) 1.8 % (0.0-2.0); EOSINOPHILS % (AUTO) 3.5 % (0.0-3.0); HEMATOCRIT 39.5 % (42.0-52.0); HEMOGLOBIN 12.2 G/DL (14.2-18.0); MEAN CORPUSCULAR VOLUME 82 FL (80-99); NEUTROPHILS % (AUTO) 43.8 % (45.0-75.0); PLATELET COUNT 285 K/UL (150-450); RED BLOOD COUNT 4.82 M/UL (4.70-6.10); RED CELL DISTRIBUTION WIDTH 15.4 % (11.6-14.8); WHITE BLOOD COUNT 7.3 K/UL (4.8-10.8)
[2018-07-11 07:33] LABS: ALANINE AMINOTRANSFERASE 12 U/L (12-78); ALBUMIN 2.8 G/DL (3.4-5.0); ALBUMIN/GLOBULIN RATIO 0.8 (1.0-2.7); ALKALINE PHOSPHATASE 96 U/L (46-116); ANION GAP 10 mmol/L (5-15); ASPARTATE AMINO TRANSFERASE 17 U/L (15-37); BILIRUBIN,TOTAL 0.3 MG/DL (0.2-1.0); BLOOD UREA NITROGEN 15 mg/dL (7-18); CALCIUM 8.1 MG/DL (8.5-10.1); CARBON DIOXIDE 27 MMOL/L (21-32); CHLORIDE 102 MMOL/L (98-107); CREATININE 1.1 MG/DL (0.55-1.30); SODIUM 139 MMOL/L (136-145)
[2018-07-11 08:00] VITALS: BP 145/66
[2018-07-11] MEDS: Heparin 5000 units/ml inj SUBQ SCH ×2 (08:28→20:44)
[2018-07-11] MEDS ORDERED: Albuterol/Ipratropium 3ml neb HHN PRN (09:00)
--- NOTE | 2018-07-11 11:28 | Pulmonology Progress Note ---
Assessment/Plan Assessment/Plan ASSESSMENT Chest pain , r/o ACS CAD with hx of CABG and AK COPD/emphysema RLE nonhealing ulcer osteomyelitis RLE, status post Rx seizure disorder opiate dependency major depressive disorder anxiety disorder protein calorie malnutrition PLAN CARE telemetry. serial troponin x 2 negative, EKG no acute ischemic changes , this r/o for acute AK ECHO Plavix beta rasta check lipid panel (for need of statin ) cardiac cath recently done in [facility] by Dr. Ames , recommended to obtain results and place e in EMR antianginal management with Ranexa and Nitro patch per cardio no further cardiac workup pain management , pain specialist follows O2 titrate prn, pulmonary toilet , no evidence of COPD exacerbation CXR c/w COPD changes seizure precaution continue Keppra DVT/GI prophylaxis wound care per protocol PT/OT dietary eval psych follows continue Remeron bowel regimen supportive care case discussed and evaluated by supervising physician Subjective Allergies: Coded Allergies: EGG (Verified Allergy, Unknown, 09/22/15) MEPERIDINE (Verified Allergy, Unknown, 12/21/10) NITROGLYCERIN (Verified Allergy, Unknown, hives, 02/18/17) Subjective reports pain RLE, difficulties with ambulating intermittent chest pain recent cardiac cath in June in [facility] [place] no SOB, no cough, no chest tightness, no wheezing Objective Last 24 Hour Vital Signs Date Time Temp Pulse Resp B/P (MAP) Pulse Ox O2 Delivery O2 Flow Rate FiO2 07/11/18 09:00 Room Air 07/11/18 08:59 98.4 07/11/18 08:00 98.4 96 18 145/66 (92) 99 98.4 07/11/18 08:00 93 07/11/18 04:00 86 07/11/18 04:00 98.8 86 18 146/69 (94) 95 98.8 07/11/18 00:00 98.8 91 18 134/82 (99) 97 98.8 07/11/18 00:00 88 07/10/18 21:00 Room Air 07/10/18 20:00 98.2 97 18 137/61 (86) 96 98.2 07/10/18 20:00 97 07/10/18 16:00 98.2 90 20 139/73 (95) 94 98.2 07/10/18 16:00 92 07/10/18 12:00 98.0 99 20 137/92 (107) 100 98.0 07/10/18 12:00 99 Intake and Output 07/10/18 07/11/18 19:00 07:00 Intake Total 600 ml 500 ml Output Total 1000 ml 425 ml Balance -400 ml 75 ml Intake Oral 600 ml 500 ml Output Urine Total 1000 ml 425 ml # Bowel Movements 1 General Appearance: no acute distress HEENT: normocephalic, atraumatic, anicteric Respiratory/Chest: lungs clear - with moderate air exchange , no respiratory distress, no accessory muscle use Cardiovascular: normal peripheral pulses, normal rate - SR on tele Abdomen: normal bowel sounds, soft, non tender Extremities: no edema 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: abnormal gait, alert, responsive Musculoskeletal: atrophy - RLE Laboratory Tests 07/11/18 05:25: White Blood Count 7.3, Red Blood Count 4.82, Hemoglobin 12.2L, Hematocrit 39.5L , Mean Corpuscular Volume 82, Mean Corpuscular Hemoglobin 25.2L, Mean Corpuscular Hemoglobin Concent 30.8L, Red Cell Distribution Width 15.4H, Platelet Count 285, Mean Platelet Volume 6.0L, Neutrophils (%) (Auto) 43.8L, Lymphocytes (%) (Auto) 35.0, Monocytes (%) (Auto) 16.0H, Eosinophils (%) (Auto) 3.5H, Basophils (%) (Auto) 1.8, Sodium Level 139, Potassium Level 5.0, Chloride Level 102, Carbon Dioxide Level 27, Anion Gap 10, Blood Urea Nitrogen 15, Creatinine 1.1, Estimat Glomerular Filtration Rate > 60, Glucose Level 87, Calcium Level 8.1L, Total Bilirubin 0.3, Aspartate Amino Transf (AST/SGOT) 17, Alanine Aminotransferase (ALT/SGPT) 12, Alkaline Phosphatase 96, Troponin I 0.000, Pro-B-Type Natriuretic Peptide 499H, Total Protein 6.3L, Albumin 2.8L, Globulin 3.5, Albumin/Globulin Ratio 0.8L, Thyroid Stimulating Hormone (TSH) 1.903 Current Medications Medications (Trade) Dose Ordered Sig/Aminata Route PRN Reason Start Time Stop Time Status Last Admin Dose Admin Acetaminophen (Tylenol) 650 mg Q4H PRN ORAL fever 07/10/18 07:00 08/09/18 06:59 Al Hydroxide/Mg Hydroxide (Mylanta II) 30 ml Q6H PRN ORAL dyspepsia 07/10/18 07:00 08/09/18 06:59 Albuterol/ Ipratropium (Albuterol/ Ipratropium) 3 ml Q4H PRN HHN Shortness of Breath 07/11/18 09:00 07/16/18 08:59 Dextrose (Dextrose 50%) 25 ml STAT PRN IV Hypoglycemia 07/10/18 07:00 08/09/18 06:59 Dextrose (Dextrose 50%) 50 ml STAT PRN IV Hypoglycemia 07/10/18 07:15 08/09/18 07:14 Heparin Sodium (Porcine) (Heparin 5000 units/ml) 5,000 units EVERY 12 HOURS SUBQ 07/10/18 09:00 08/09/18 08:59 07/11/18 08:28 Hydromorphone HCl (Dilaudid) 1 mg Q3H PRN IVP Severe Pain (Pain Scale 7-10) 07/10/18 14:12 07/17/18 14:11 07/11/18 08:29 Lorazepam (Ativan 2mg/ml 1ml) 0.5 mg Q4H PRN IV For Anxiety 07/10/18 07:00 07/17/18 06:59 Mirtazapine (Remeron) 45 mg BEDTIME ORAL 07/11/18 21:00 08/10/18 20:59 UNV Ondansetron HCl (Zofran) 4 mg Q6H PRN IVP Nausea & Vomiting 07/10/18 07:00 08/09/18 06:59 Polyethylene Glycol (Miralax) 17 gm HSPRN PRN ORAL Constipation 07/10/18 21:00 08/09/18 20:59 Zolpidem Tartrate (Ambien) 5 mg HSPRN PRN ORAL Insomnia 07/10/18 21:00 07/17/18 20:59 Kristine Black NP Jul 11, 2018 11:28
--- NOTE | 2018-07-11 11:37 | Cardiology Progress Note ---
Assessment/Plan Status: stable Assessment/Plan Assessment Problem List: (1) ACS (acute coronary syndrome) (2) Hx of CABG (3) Decubitus ulcer, ankle, right, unstageable (4) Chest pain (5) Cardiac dysrhythmia (6) Emphysema lung (7) Ulcer of right lower leg PLAN Serial EKG/Troponin Anti-anginal therapy: metoprolol, Ranexa 500 BID, Amlodipine mg Aspirin Statin Cardaic rehab No further work up needed given recent cardiac cath Consider EECP for chronic angina Subjective Cardiovascular: Reports: no symptoms Respiratory: Reports: no symptoms Gastrointestinal/Abdominal: Reports: no symptoms Genitourinary: Reports: no symptoms Subjective No acute events, vitals stable ,no CP, troponin negative, patient wants breathing treatment. Objective Last 24 Hour Vital Signs Date Time Temp Pulse Resp B/P (MAP) Pulse Ox O2 Delivery O2 Flow Rate FiO2 07/11/18 09:00 Room Air 07/11/18 08:59 98.4 07/11/18 08:00 98.4 96 18 145/66 (92) 99 98.4 07/11/18 08:00 93 07/11/18 04:00 86 07/11/18 04:00 98.8 86 18 146/69 (94) 95 98.8 07/11/18 00:00 98.8 91 18 134/82 (99) 97 98.8 07/11/18 00:00 88 07/10/18 21:00 Room Air 07/10/18 20:00 98.2 97 18 137/61 (86) 96 98.2 07/10/18 20:00 97 07/10/18 16:00 98.2 90 20 139/73 (95) 94 98.2 07/10/18 16:00 92 07/10/18 12:00 98.0 99 20 137/92 (107) 100 98.0 07/10/18 12:00 99 General Appearance: no apparent distress, alert EENT: PERRL/EOMI, normal ENT inspection Neck: non-tender, normal alignment Rhythm: NSR Cardiovascular: normal peripheral pulses, normal rate, regular rhythm Respiratory/Chest: chest wall non-tender, lungs clear Abdomen: normal bowel sounds, non tender, soft Extremities: normal range of motion, non-tender 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6-14.8) H Platelet Count 285 K/UL (150-450) Mean Platelet Volume 6.0 FL (6.5-10.1) L Neutrophils (%) (Auto) 43.8 % (45.0-75.0) L Lymphocytes (%) (Auto) 35.0 % (20.0-45.0) Monocytes (%) (Auto) 16.0 % (1.0-10.0) H Eosinophils (%) (Auto) 3.5 % (0.0-3.0) H Basophils (%) (Auto) 1.8 % (0.0-2.0) Sodium Level 139 MMOL/L (136-145) Potassium Level 5.0 MMOL/L (3.5-5.1) Chloride Level 102 MMOL/L (98-107) Carbon Dioxide Level 27 MMOL/L (21-32) Anion Gap 10 mmol/L (5-15) Blood Urea Nitrogen 15 mg/dL (7-18) Creatinine 1.1 MG/DL (0.55-1.30) Estimat Glomerular Filtration Rate > 60 mL/min (>60) Glucose Level 87 MG/DL (74-106) Calcium Level 8.1 MG/DL (8.5-10.1) L Total Bilirubin 0.3 MG/DL (0.2-1.0) Aspartate Amino Transf (AST/SGOT) 17 U/L (15-37) Alanine Aminotransferase (ALT/SGPT) 12 U/L (12-78) Alkaline Phosphatase 96 U/L (46-116) Troponin I 0.000 ng/mL (0.000-0.056) Pro-B-Type Natriuretic Peptide 499 pg/mL (0-125) H Total Protein 6.3 G/DL (6.4-8.2) L Albumin 2.8 G/DL (3.4-5.0) L Globulin 3.5 g/dL Albumin/Globulin Ratio 0.8 (1.0-2.7) L Thyroid Stimulating Hormone (TSH) 1.903 uiU/mL (0.358-3.740) Adonis Winn M.D. Jul 11, 2018 11:37
[2018-07-11 12:00] VITALS: BP 143/63
[2018-07-11 16:00] VITALS: BP 155/79
--- NOTE | 2018-07-11 18:28 | Internal Med Progress Note ---
Subjective Date of Service: Jul 11, 2018 Physician Name Shantanu Reyna Attending Physician Phil Wright MD Current Medications Medications (Trade) Dose Ordered Sig/Aminata Route PRN Reason Start Time Stop Time Status Last Admin Dose Admin Acetaminophen (Tylenol) 650 mg Q4H PRN ORAL fever 07/10/18 07:00 08/09/18 06:59 Al Hydroxide/Mg Hydroxide (Mylanta II) 30 ml Q6H PRN ORAL dyspepsia 07/10/18 07:00 08/09/18 06:59 Albuterol/ Ipratropium (Albuterol/ Ipratropium) 3 ml Q4H PRN HHN Shortness of Breath 07/11/18 09:00 07/16/18 08:59 Amlodipine Besylate (Norvasc) 5 mg DAILY ORAL 07/12/18 09:00 08/11/18 08:59 Clopidogrel Bisulfate (Plavix) 75 mg DAILY ORAL 07/12/18 09:00 08/11/18 08:59 Dextrose (Dextrose 50%) 25 ml STAT PRN IV Hypoglycemia 07/10/18 07:00 08/09/18 06:59 Dextrose (Dextrose 50%) 50 ml STAT PRN IV Hypoglycemia 07/10/18 07:15 08/09/18 07:14 Famotidine (Pepcid) 20 mg DAILY ORAL 07/12/18 09:00 08/11/18 08:59 Heparin Sodium (Porcine) (Heparin 5000 units/ml) 5,000 units EVERY 12 HOURS SUBQ 07/10/18 09:00 08/09/18 08:59 07/11/18 08:28 Hydromorphone HCl (Dilaudid) 1 mg Q3H PRN IVP Severe Pain (Pain Scale 7-10) 07/10/18 14:12 07/17/18 14:11 07/11/18 15:43 Levetiracetam (Keppra) 500 mg Q12HR ORAL 07/11/18 21:00 08/10/18 20:59 Lorazepam (Ativan 2mg/ml 1ml) 0.5 mg Q4H PRN IV For Anxiety 07/10/18 07:00 07/17/18 06:59 Metoprolol Tartrate (Lopressor) 25 mg Q12HR ORAL 07/11/18 21:00 08/10/18 20:59 Mirtazapine (Remeron) 45 mg BEDTIME ORAL 07/11/18 21:00 08/10/18 20:59 UNV Ondansetron HCl (Zofran) 4 mg Q6H PRN IVP Nausea & Vomiting 07/10/18 07:00 08/09/18 06:59 Polyethylene Glycol (Miralax) 17 gm HSPRN PRN ORAL Constipation 07/10/18 21:00 08/09/18 20:59 Ranolazine (Ranexa ER 500mg) 500 mg Q12HR ORAL 07/11/18 21:00 08/10/18 20:59 Zolpidem Tartrate (Ambien) 5 mg HSPRN PRN ORAL Insomnia 07/10/18 21:00 07/17/18 20:59 Allergies: Coded Allergies: EGG (Verified Allergy, Unknown, 09/22/15) MEPERIDINE (Verified Allergy, Unknown, 12/21/10) NITROGLYCERIN (Verified Allergy, Unknown, hives, 02/18/17) ROS Limited/Unobtainable: No Constitutional: Reports: no symptoms HEENT: Reports: no symptoms Cardiovascular: Reports: no symptoms Respiratory: Reports: no symptoms Gastrointestinal/Abdominal: Reports: no symptoms Genitourinary: Reports: no symptoms 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: Reports: no symptoms Subjective 67 YO M admitted with chest pain. Cover for Int Med-Dr Wright. Jose calderon increased Objective Last Vital Signs Date Time Temp Pulse Resp B/P (MAP) Pulse Ox O2 Delivery O2 Flow Rate FiO2 07/11/18 12:00 85 07/11/18 12:00 98.6 19 143/63 (89) 96 98.6 07/11/18 09:00 Room Air General Appearance: alert, mild distress, thin EENT: PERRL/EOMI, normal ENT inspection, TMs normal Neck: non-tender, normal alignment, supple, normal inspection Cardiovascular: normal peripheral pulses, normal rate, regular rhythm, no gallop/murmur, no JVD Respiratory/Chest: chest wall non-tender, lungs clear, normal breath sounds, no respiratory distress, no accessory muscle use Abdomen: normal bowel sounds, non tender, soft, no organomegaly, no mass Extremities: normal range of motion 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 Skin: normal pigmentation, warm/dry Laboratory Tests Test 07/11/18 05:25 White Blood Count 7.3 K/UL (4.8-10.8) Red Blood Count 4.82 M/UL (4.70-6.10) Hemoglobin 12.2 G/DL (14.2-18.0) L Hematocrit 39.5 % (42.0-52.0) L Mean Corpuscular Volume 82 FL (80-99) Mean Corpuscular Hemoglobin 25.2 PG (27.0-31.0) L Mean Corpuscular Hemoglobin Concent 30.8 G/DL (32.0-36.0) L Red Cell Distribution Width 15.4 % (11.6-14.8) H Platelet Count 285 K/UL (150-450) Mean Platelet Volume 6.0 FL (6.5-10.1) L Neutrophils (%) (Auto) 43.8 % (45.0-75.0) L Lymphocytes (%) (Auto) 35.0 % (20.0-45.0) Monocytes (%) (Auto) 16.0 % (1.0-10.0) H Eosinophils (%) (Auto) 3.5 % (0.0-3.0) H Basophils (%) (Auto) 1.8 % (0.0-2.0) Sodium Level 139 MMOL/L (136-145) Potassium Level 5.0 MMOL/L (3.5-5.1) Chloride Level 102 MMOL/L (98-107) Carbon Dioxide Level 27 MMOL/L (21-32) Anion Gap 10 mmol/L (5-15) Blood Urea Nitrogen 15 mg/dL (7-18) Creatinine 1.1 MG/DL (0.55-1.30) Estimat Glomerular Filtration Rate > 60 mL/min (>60) Glucose Level 87 MG/DL (74-106) Calcium Level 8.1 MG/DL (8.5-10.1) L Total Bilirubin 0.3 MG/DL (0.2-1.0) Aspartate Amino Transf (AST/SGOT) 17 U/L (15-37) Alanine Aminotransferase (ALT/SGPT) 12 U/L (12-78) Alkaline Phosphatase 96 U/L (46-116) Troponin I 0.000 ng/mL (0.000-0.056) Pro-B-Type Natriuretic Peptide 499 pg/mL (0-125) H Total Protein 6.3 G/DL (6.4-8.2) L Albumin 2.8 G/DL (3.4-5.0) L Globulin 3.5 g/dL Albumin/Globulin Ratio 0.8 (1.0-2.7) L Thyroid Stimulating Hormone (TSH) 1.903 uiU/mL (0.358-3.740) Intake and Output 07/10/18 07/11/18 19:00 07:00 Intake Total 600 ml 500 ml Output Total 1000 ml 425 ml Balance -400 ml 75 ml Intake Oral 600 ml 500 ml Output Urine Total 1000 ml 425 ml # Bowel Movements 1 Assessment/Plan Problem List: (1) HTN (hypertension) Assessment & Plan: Continue norvasc and lopressor (2) CAD (coronary artery disease) (3) Chest pain Assessment & Plan: Recent cardiac cath. Await results from [facility] [place] (4) COPD exacerbation (5) Seizure disorder Assessment & Plan: Continue Keppra Status: not improved Shantanu Reyna MD Jul 11, 2018 18:28
[2018-07-11 20:00] VITALS: BP 182/78
[2018-07-11] MEDS: Ranolazine 500mg tab ORAL SCH (20:43)
[2018-07-11] MEDS: Metoprolol 25mg tab ORAL SCH (20:43)
[2018-07-12] VITALS: BP 120/53
[2018-07-12] MEDS: HYDROmorphone 1mg/ml Carpuject IVP PRN ×6 (02:39→19:36)
[2018-07-12 04:00] VITALS: BP 114/59
[2018-07-12 06:28] LABS: BASOPHILS % (AUTO) 2.9 % (0.0-2.0); HEMATOCRIT 39.8 % (42.0-52.0); HEMOGLOBIN 12.5 G/DL (14.2-18.0); LYMPHOCYTES % (AUTO) 29.1 % (20.0-45.0); MEAN CORPUSCULAR VOLUME 82 FL (80-99); MONOCYTES % (AUTO) 18.6 % (1.0-10.0); NEUTROPHILS % (AUTO) 46.5 % (45.0-75.0); PLATELET COUNT 286 K/UL (150-450); RED BLOOD COUNT 4.84 M/UL (4.70-6.10); WHITE BLOOD COUNT 7.4 K/UL (4.8-10.8)
[2018-07-12 06:45] LABS: ANION GAP 8 mmol/L (5-15); BLOOD UREA NITROGEN 15 mg/dL (7-18); CALCIUM 8.7 MG/DL (8.5-10.1); CARBON DIOXIDE 28 MMOL/L (21-32); CHLORIDE 102 MMOL/L (98-107); CHOLESTEROL 204 MG/DL (< 200); CREATININE 1.3 MG/DL (0.55-1.30); HDL CHOLESTEROL 50 MG/DL (40-60); POTASSIUM 4.8 MMOL/L (3.5-5.1); SODIUM 138 MMOL/L (136-145); TRIGLYCERIDES 86 MG/DL (30-150)
[2018-07-12 08:00] VITALS: BP 151/54
[2018-07-12] MEDS: Ranolazine 500mg tab ORAL SCH ×2 (08:11→20:22)
[2018-07-12] MEDS: Heparin 5000 units/ml inj SUBQ SCH ×3 (08:12→20:23)
[2018-07-12] MEDS: Metoprolol 25mg tab ORAL SCH ×2 (08:13→20:22)
--- NOTE | 2018-07-12 09:44 | Pulmonology Progress Note ---
Assessment/Plan Assessment/Plan ASSESSMENT Chest pain , r/o ACS CAD with hx of CABG and NH COPD/emphysema Hypercholesteremia RLE nonhealing ulcer osteomyelitis RLE, status post Rx seizure disorder opiate dependency major depressive disorder anxiety disorder protein calorie malnutrition [facility] telemetry. serial troponin x 2 negative, EKG no acute ischemic changes , this r/o for acute NH ECHO Plavix beta rasta lipid panel with LDL 147, continue statin, pt reports non compliance with regimen, reinforced compliance and educated on low cholesterol low fat cardiac diet ) cardiac cath recently done in [facility] by Dr. Ames , recommended to obtain results and place e in EMR antianginal management with Ranexa and Nitro patch per cardio no further cardiac workup cardio recommended to consider EECP ( enhanced external counterpulsation ) for chronic angina as outpt pain management , pain specialist follows O2 titrate prn, pulmonary toilet , no evidence of COPD exacerbation CXR c/w COPD changes seizure precaution continue Keppra DVT/GI prophylaxis wound care per protocol PT/OT dietary eval , start double portions for now( pt c/o being hungry) psych follows continue Remeron bowel regimen supportive care transfer to [place] if OK with cardio case discussed and evaluated by supervising physician Subjective Allergies: Coded Allergies: EGG (Verified Allergy, Unknown, 09/22/15) MEPERIDINE (Verified Allergy, Unknown, 12/21/10) NITROGLYCERIN (Verified Allergy, Unknown, hives, 02/18/17) Subjective reports pain RLE, difficulties with ambulating no chest pain today recent cardiac cath in June in [facility] no SOB, no cough, no chest tightness, no wheezing Objective Last 24 Hour Vital Signs Date Time Temp Pulse Resp B/P (MAP) Pulse Ox O2 Delivery O2 Flow Rate FiO2 07/12/18 08:20 75 16 Room Air 21 07/12/18 08:13 73 151/54 07/12/18 08:13 71 151/54 07/12/18 04:00 98.8 66 20 114/59 (77) 96 98.8 07/12/18 04:00 84 07/12/18 00:00 79 07/12/18 00:00 99.0 76 18 120/53 (75) 94 99.0 07/11/18 21:43 77 18 98 Room Air 21 8/18/18 21:37 72 16 Room Air 21 07/11/18 21:36 72 16 97 Room Air 21 07/11/18 21:00 Room Air 07/11/18 20:43 98 182/78 07/11/18 20:00 92 07/11/18 20:00 99.0 92 18 182/78 (112) 98 99.0 07/11/18 16:00 98.7 88 22 155/79 (104) 95 98.7 07/11/18 16:00 97 07/11/18 12:00 85 07/11/18 12:00 98.6 89 19 143/63 (89) 96 98.6 Intake and Output 07/11/18 07/12/18 19:00 07:00 Intake Total 520 ml 700 ml Output Total 450 ml 600 ml Balance 70 ml 100 ml Intake Oral 520 ml 700 ml Output Urine Total 450 ml 600 ml Objective General Appearance: no acute distress HEENT: normocephalic, atraumatic, anicteric Respiratory/Chest: lungs clear with moderate air exchange , no respiratory distress, no accessory muscle use Cardiovascular: normal peripheral pulses, normal rate - SR on tele Abdomen: normal bowel sounds, soft, non tender Extremities: no edema 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: abnormal gait, alert, responsive Musculoskeletal: atrophy - RLE, nonhealing R LE ulcer Laboratory Tests 07/12/18 06:00: White Blood Count 7.4, Red Blood Count 4.84, Hemoglobin 12.5L, Hematocrit 39.8L , Mean Corpuscular Volume 82, Mean Corpuscular Hemoglobin 25.8L, Mean Corpuscular Hemoglobin Concent 31.3L, Red Cell Distribution Width 15.0H, Platelet Count 286, Mean Platelet Volume 6.3L, Neutrophils (%) (Auto) 46.5, Lymphocytes (%) (Auto) 29.1, Monocytes (%) (Auto) 18.6H, Eosinophils (%) (Auto) 3.0, Basophils (%) (Auto) 2.9H, Sodium Level 138, Potassium Level 4.8, Chloride Level 102, Carbon Dioxide Level 28, Anion Gap 8, Blood Urea Nitrogen 15, Creatinine 1.3, Estimat Glomerular Filtration Rate > 60, Glucose Level 86, Calcium Level 8.7, Triglycerides Level 86, Cholesterol Level 204H, LDL Cholesterol 147H, HDL Cholesterol 50, Cholesterol/HDL Ratio 4.1 Current Medications Medications (Trade) Dose Ordered Sig/Aminata Route PRN Reason Start Time Stop Time Status Last Admin Dose Admin Acetaminophen (Tylenol) 650 mg Q4H PRN ORAL fever 07/10/18 07:00 08/09/18 06:59 Al Hydroxide/Mg Hydroxide (Mylanta II) 30 ml Q6H PRN ORAL dyspepsia 07/10/18 07:00 08/09/18 06:59 Albuterol/ Ipratropium (Albuterol/ Ipratropium) 3 ml Q4H PRN HHN Shortness of Breath 07/11/18 09:00 07/16/18 08:59 07/11/18 21:36 Amlodipine Besylate (Norvasc) 5 mg DAILY ORAL 07/12/18 09:00 08/11/18 08:59 07/12/18 08:13 Clopidogrel Bisulfate (Plavix) 75 mg DAILY ORAL 07/12/18 09:00 08/11/18 08:59 07/12/18 08:11 Dextrose (Dextrose 50%) 25 ml STAT PRN IV Hypoglycemia 07/10/18 07:00 08/09/18 06:59 Dextrose (Dextrose 50%) 50 ml STAT PRN IV Hypoglycemia 07/10/18 07:15 08/09/18 07:14 Famotidine (Pepcid) 20 mg DAILY ORAL 07/12/18 09:00 08/11/18 08:59 07/12/18 08:10 Heparin Sodium (Porcine) (Heparin 5000 units/ml) 5,000 units EVERY 12 HOURS SUBQ 07/10/18 09:00 08/09/18 08:59 07/11/18 20:44 Hydromorphone HCl (Dilaudid) 1 mg Q3H PRN IVP Severe Pain (Pain Scale 7-10) 07/10/18 14:12 07/17/18 14:11 07/12/18 09:15 Levetiracetam (Keppra) 500 mg Q12HR ORAL 07/11/18 21:00 08/10/18 20:59 07/12/18 08:10 Lorazepam (Ativan 2mg/ml 1ml) 0.5 mg Q4H PRN IV For Anxiety 07/10/18 07:00 07/17/18 06:59 Metoprolol Tartrate (Lopressor) 25 mg Q12HR ORAL 07/11/18 21:00 08/10/18 20:59 07/12/18 08:13 Mirtazapine (Remeron) 45 mg BEDTIME ORAL 07/12/18 21:00 08/11/18 20:59 Ondansetron HCl (Zofran) 4 mg Q6H PRN IVP Nausea & Vomiting 07/10/18 07:00 08/09/18 06:59 Polyethylene Glycol (Miralax) 17 gm HSPRN PRN ORAL Constipation 07/10/18 21:00 08/09/18 20:59 Ranolazine (Ranexa ER 500mg) 500 mg Q12HR ORAL 07/11/18 21:00 08/10/18 20:59 07/12/18 08:11 Zolpidem Tartrate (Ambien) 5 mg HSPRN PRN ORAL Insomnia 07/10/18 21:00 07/17/18 20:59 Kristine Black NP Jul 12, 2018 09:44
[2018-07-12 12:00] VITALS: BP 135/61
--- NOTE | 2018-07-12 13:29 | Internal Med Progress Note ---
Subjective Date of Service: Jul 12, 2018 Physician Name Shantanu Reyna Attending Physician Phil Wright MD Current Medications Medications (Trade) Dose Ordered Sig/Aminata Route PRN Reason Start Time Stop Time Status Last Admin Dose Admin Acetaminophen (Tylenol) 650 mg Q4H PRN ORAL fever 07/10/18 07:00 08/09/18 06:59 Al Hydroxide/Mg Hydroxide (Mylanta II) 30 ml Q6H PRN ORAL dyspepsia 07/10/18 07:00 08/09/18 06:59 Albuterol/ Ipratropium (Albuterol/ Ipratropium) 3 ml Q4H PRN HHN Shortness of Breath 07/11/18 09:00 07/16/18 08:59 07/11/18 21:36 Amlodipine Besylate (Norvasc) 5 mg DAILY ORAL 07/12/18 09:00 08/11/18 08:59 07/12/18 08:13 Clopidogrel Bisulfate (Plavix) 75 mg DAILY ORAL 07/12/18 09:00 08/11/18 08:59 07/12/18 08:11 Dextrose (Dextrose 50%) 25 ml STAT PRN IV Hypoglycemia 07/10/18 07:00 08/09/18 06:59 Dextrose (Dextrose 50%) 50 ml STAT PRN IV Hypoglycemia 07/10/18 07:15 08/09/18 07:14 Famotidine (Pepcid) 20 mg DAILY ORAL 07/12/18 09:00 08/11/18 08:59 07/12/18 08:10 Heparin Sodium (Porcine) (Heparin 5000 units/ml) 5,000 units EVERY 12 HOURS SUBQ 07/10/18 09:00 08/09/18 08:59 07/11/18 20:44 Hydromorphone HCl (Dilaudid) 1 mg Q3H PRN IVP Severe Pain (Pain Scale 7-10) 07/10/18 14:12 07/17/18 14:11 07/12/18 13:03 Levetiracetam (Keppra) 500 mg Q12HR ORAL 07/11/18 21:00 08/10/18 20:59 07/12/18 08:10 Lorazepam (Ativan 2mg/ml 1ml) 0.5 mg Q4H PRN IV For Anxiety 07/10/18 07:00 07/17/18 06:59 Metoprolol Tartrate (Lopressor) 25 mg Q12HR ORAL 07/11/18 21:00 08/10/18 20:59 07/12/18 08:13 Mirtazapine (Remeron) 45 mg BEDTIME ORAL 07/12/18 21:00 08/11/18 20:59 Ondansetron HCl (Zofran) 4 mg Q6H PRN IVP Nausea & Vomiting 07/10/18 07:00 08/09/18 06:59 Polyethylene Glycol (Miralax) 17 gm HSPRN PRN ORAL Constipation 07/10/18 21:00 08/09/18 20:59 Ranolazine (Ranexa ER 500mg) 500 mg Q12HR ORAL 07/11/18 21:00 08/10/18 20:59 07/12/18 08:11 Zolpidem Tartrate (Ambien) 5 mg HSPRN PRN ORAL Insomnia 07/10/18 21:00 07/17/18 20:59 Allergies: Coded Allergies: EGG (Verified Allergy, Unknown, 09/22/15) MEPERIDINE (Verified Allergy, Unknown, 12/21/10) NITROGLYCERIN (Verified Allergy, Unknown, hives, 02/18/17) ROS Limited/Unobtainable: No Constitutional: Reports: no symptoms HEENT: Reports: no symptoms Cardiovascular: Reports: chest pain Respiratory: Reports: no symptoms Gastrointestinal/Abdominal: Reports: no symptoms Genitourinary: Reports: no symptoms 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: Reports: no symptoms Subjective 67 YO M admitted with chest pain. Cover for Int Med-Dr Wright. Jose calderon increased Objective Last Vital Signs Date Time Temp Pulse Resp B/P (MAP) Pulse Ox O2 Delivery O2 Flow Rate FiO2 07/12/18 12:00 98.0 72 19 135/61 (85) 99 98.0 07/12/18 09:57 Room Air 07/12/18 08:20 21 Laboratory Tests Test 07/12/18 06:00 White Blood Count 7.4 K/UL (4.8-10.8) Red Blood Count 4.84 M/UL (4.70-6.10) Hemoglobin 12.5 G/DL (14.2-18.0) L Hematocrit 39.8 % (42.0-52.0) L Mean Corpuscular Volume 82 FL (80-99) Mean Corpuscular Hemoglobin 25.8 PG (27.0-31.0) L Mean Corpuscular Hemoglobin Concent 31.3 G/DL (32.0-36.0) L Red Cell Distribution Width 15.0 % (11.6-14.8) H Platelet Count 286 K/UL (150-450) Mean Platelet Volume 6.3 FL (6.5-10.1) L Neutrophils (%) (Auto) 46.5 % (45.0-75.0) Lymphocytes (%) (Auto) 29.1 % (20.0-45.0) Monocytes (%) (Auto) 18.6 % (1.0-10.0) H Eosinophils (%) (Auto) 3.0 % (0.0-3.0) Basophils (%) (Auto) 2.9 % (0.0-2.0) H Sodium Level 138 MMOL/L (136-145) Potassium Level 4.8 MMOL/L (3.5-5.1) Chloride Level 102 MMOL/L (98-107) Carbon Dioxide Level 28 MMOL/L (21-32) Anion Gap 8 mmol/L (5-15) Blood Urea Nitrogen 15 mg/dL (7-18) Creatinine 1.3 MG/DL (0.55-1.30) Estimat Glomerular Filtration Rate > 60 mL/min (>60) Glucose Level 86 MG/DL (74-106) Calcium Level 8.7 MG/DL (8.5-10.1) Triglycerides Level 86 MG/DL (30-150) Cholesterol Level 204 MG/DL (< 200) H LDL Cholesterol 147 mg/dL (<100) H HDL Cholesterol 50 MG/DL (40-60) Cholesterol/HDL Ratio 4.1 (3.3-4.4) Intake and Output 07/11/18 07/12/18 19:00 07:00 Intake Total 520 ml 700 ml Output Total 450 ml 600 ml Balance 70 ml 100 ml Intake Oral 520 ml 700 ml Output Urine Total 450 ml 600 ml Objective General Appearance: alert, mild distress, thin EENT: PERRL/EOMI, normal ENT inspection, TMs normal Neck: non-tender, normal alignment, supple, normal inspection Cardiovascular: normal peripheral pulses, normal rate, regular rhythm, no gallop/murmur, no JVD Respiratory/Chest: chest wall non-tender, lungs clear, normal breath sounds, no respiratory distress, no accessory muscle use Abdomen: normal bowel sounds, non tender, soft, no organomegaly, no mass Extremities: normal range of motion 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 See cardiology note. (4) COPD exacerbation (5) Seizure disorder Assessment & Plan: Continue Keppra Status: progressing Shantanu Reyna MD Jul 12, 2018 13:29
--- NOTE | 2018-07-12 14:08 | Cardiac Electrophysiology PN ---
Subjective Subjective [id number] Objective Last 24 Hour Vital Signs Date Time Temp Pulse Resp B/P (MAP) Pulse Ox O2 Delivery O2 Flow Rate FiO2 07/12/18 12:00 98.0 72 19 135/61 (85) 99 98.0 07/12/18 12:00 77 07/12/18 09:57 Room Air 07/12/18 08:20 75 16 Room Air 21 07/12/18 08:13 73 151/54 07/12/18 08:13 71 151/54 07/12/18 08:00 97.6 73 21 151/54 (86) 98 97.6 07/12/18 08:00 77 07/12/18 04:00 98.8 66 20 114/59 (77) 96 98.8 07/12/18 04:00 84 07/12/18 00:00 79 07/12/18 00:00 99.0 76 18 120/53 (75) 94 99.0 07/11/18 21:43 77 18 98 Room Air 21 07/11/18 21:37 72 16 Room Air 21 07/11/18 21:36 72 16 97 Room Air 21 07/11/18 21:00 Room Air 07/11/18 20:43 98 182/78 07/11/18 20:00 92 07/11/18 20:00 99.0 92 18 182/78 (112) 98 99.0 07/11/18 16:00 98.7 88 22 155/79 (104) 95 98.7 07/11/18 16:00 97 Intake and Output 07/11/18 07/12/18 19:00 07:00 Intake Total 520 ml 700 ml Output Total 450 ml 600 ml Balance 70 ml 100 ml Intake Oral 520 ml 700 ml Output Urine Total 450 ml 600 ml Laboratory Tests Test 07/12/18 06:00 White Blood Count 7.4 K/UL (4.8-10.8) Red Blood Count 4.84 M/UL (4.70-6.10) Hemoglobin 12.5 G/DL (14.2-18.0) L Hematocrit 39.8 % (42.0-52.0) L Mean Corpuscular Volume 82 FL (80-99) Mean Corpuscular Hemoglobin 25.8 PG (27.0-31.0) L Mean Corpuscular Hemoglobin Concent 31.3 G/DL (32.0-36.0) L Red Cell Distribution Width 15.0 % (11.6-14.8) H Platelet Count 286 K/UL (150-450) Mean Platelet Volume 6.3 FL (6.5-10.1) L Neutrophils (%) (Auto) 46.5 % (45.0-75.0) Lymphocytes (%) (Auto) 29.1 % (20.0-45.0) Monocytes (%) (Auto) 18.6 % (1.0-10.0) H Eosinophils (%) (Auto) 3.0 % (0.0-3.0) Basophils (%) (Auto) 2.9 % (0.0-2.0) H Sodium Level 138 MMOL/L (136-145) Potassium Level 4.8 MMOL/L (3.5-5.1) Chloride Level 102 MMOL/L (98-107) Carbon Dioxide Level 28 MMOL/L (21-32) Anion Gap 8 mmol/L (5-15) Blood Urea Nitrogen 15 mg/dL (7-18) Creatinine 1.3 MG/DL (0.55-1.30) Estimat Glomerular Filtration Rate > 60 mL/min (>60) Glucose Level 86 MG/DL (74-106) Calcium Level 8.7 MG/DL (8.5-10.1) Triglycerides Level 86 MG/DL (30-150) Cholesterol Level 204 MG/DL (< 200) H LDL Cholesterol 147 mg/dL (<100) H HDL Cholesterol 50 MG/DL (40-60) Cholesterol/HDL Ratio 4.1 (3.3-4.4) Neal Ames MD Jul 12, 2018 14:08
--- NOTE | 2018-07-12 15:01 | Cardiology Progress Note ---
Assessment/Plan Status: stable Assessment/Plan Assessment Problem List: (1) ACS (acute coronary syndrome) (2) Hx of CABG (3) Decubitus ulcer, ankle, right, unstageable (4) Chest pain (5) Cardiac dysrhythmia (6) Emphysema lung (7) Ulcer of right lower leg PLAN Serial EKG/Troponin Anti-anginal therapy: metoprolol, Ranexa 500 BID, Amlodipine mg Aspirin/plavix Statin Cardaic rehab No further work up needed given recent cardiac cath Consider [facility] for chronic angina No evidence of stent thrombosus Transfer to med surg Subjective Cardiovascular: Reports: no symptoms Respiratory: Reports: no symptoms Gastrointestinal/Abdominal: Reports: no symptoms Genitourinary: Reports: no symptoms Subjective No acute events, vitals stable ,no CP, troponin negative. Objective Last 24 Hour Vital Signs Date Time Temp Pulse Resp B/P (MAP) Pulse Ox O2 Delivery O2 Flow Rate FiO2 07/12/18 12:00 98.0 72 19 135/61 (85) 99 98.0 07/12/18 12:00 77 07/12/18 09:57 Room Air 07/12/18 08:20 75 16 Room Air 21 07/12/18 08:13 73 151/54 07/12/18 08:13 71 151/54 07/12/18 08:00 97.6 73 21 151/54 (86) 98 97.6 07/12/18 08:00 77 07/12/18 04:00 98.8 66 20 114/59 (77) 96 98.8 07/12/18 04:00 84 07/12/18 00:00 79 07/12/18 00:00 99.0 76 18 120/53 (75) 94 99.0 07/11/18 21:43 77 18 98 Room Air 21 07/11/18 21:37 72 16 Room Air 21 07/11/18 21:36 72 16 97 Room Air 21 07/11/18 21:00 Room Air 07/11/18 20:43 98 182/78 07/11/18 20:00 92 07/11/18 20:00 99.0 92 18 182/78 (112) 98 99.0 07/11/18 16:00 98.7 88 22 155/79 (104) 95 98.7 07/11/18 16:00 97 General Appearance: no apparent distress, alert EENT: PERRL/EOMI, normal ENT inspection Neck: non-tender, normal alignment Rhythm: NSR Cardiovascular: normal peripheral pulses, normal rate Respiratory/Chest: chest wall non-tender, lungs clear Abdomen: normal bowel sounds, non tender Extremities: normal range of motion 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 Intake and Output 07/11/18 07/12/18 19:00 07:00 Intake Total 520 ml 700 ml Output Total 450 ml 600 ml Balance 70 ml 100 ml Intake Oral 520 ml 700 ml Output Urine Total 450 ml 600 ml Laboratory Tests Test 07/12/18 06:00 White Blood Count 7.4 K/UL (4.8-10.8) Red Blood Count 4.84 M/UL (4.70-6.10) Hemoglobin 12.5 G/DL (14.2-18.0) L Hematocrit 39.8 % (42.0-52.0) L Mean Corpuscular Volume 82 FL (80-99) Mean Corpuscular Hemoglobin 25.8 PG (27.0-31.0) L Mean Corpuscular Hemoglobin Concent 31.3 G/DL (32.0-36.0) L Red Cell Distribution Width 15.0 % (11.6-14.8) H Platelet Count 286 K/UL (150-450) Mean Platelet Volume 6.3 FL (6.5-10.1) L Neutrophils (%) (Auto) 46.5 % (45.0-75.0) Lymphocytes (%) (Auto) 29.1 % (20.0-45.0) Monocytes (%) (Auto) 18.6 % (1.0-10.0) H Eosinophils (%) (Auto) 3.0 % (0.0-3.0) Basophils (%) (Auto) 2.9 % (0.0-2.0) H Sodium Level 138 MMOL/L (136-145) Potassium Level 4.8 MMOL/L (3.5-5.1) Chloride Level 102 MMOL/L (98-107) Carbon Dioxide Level 28 MMOL/L (21-32) Anion Gap 8 mmol/L (5-15) Blood Urea Nitrogen 15 mg/dL (7-18) Creatinine 1.3 MG/DL (0.55-1.30) Estimat Glomerular Filtration Rate > 60 mL/min (>60) Glucose Level 86 MG/DL (74-106) Calcium Level 8.7 MG/DL (8.5-10.1) Triglycerides Level 86 MG/DL (30-150) Cholesterol Level 204 MG/DL (< 200) H LDL Cholesterol 147 mg/dL (<100) H HDL Cholesterol 50 MG/DL (40-60) Cholesterol/HDL Ratio 4.1 (3.3-4.4) Adonis Winn M.D. Jul 12, 2018 15:01
[2018-07-12 16:00] VITALS: BP 143/73
[2018-07-12] MEDS ORDERED: Albuterol/Ipratropium 3ml neb HHN PRN (18:00)
[2018-07-12] MEDS ORDERED: LORazepam Inj 2mg/ml 1ml IV PRN (18:00)
[2018-07-12] MEDS ORDERED: Mylanta II UD 30ml ORAL PRN (18:00)
[2018-07-12 20:00] VITALS: BP 128/67
[2018-07-12] MEDS ORDERED: Miralax 17gm pkt ORAL PRN (21:00)
[2018-07-12] MEDS ORDERED: Zolpidem 5mg tab ORAL PRN (21:00)
--- NOTE | 2018-07-12 21:30 | Consultation ---
DATE OF CONSULTATION: 07/12/2018 CARDIAC ELECTROPHYSIOLOGY CONSULTATION CONSULTING PHYSICIAN: Neal Ames M.D. REFERRING PHYSICIAN: Shantanu Reyna M.D. REASON FOR CONSULTATION: Tachycardia. HISTORY OF PRESENT ILLNESS: The patient is a 67-year-old gentleman, whom I am quite familiar with from his previous admission in June 2018. The patient had elevated troponin and was transferred and underwent cardiac catheterization by Dr. Tatum and underwent percutaneous angioplasty of the LAD as well as circumflex. He had 90% proximal LAD stenosis just prior to first diagonal and distal LAD was grafted by LOREDO. The circumflex had significant in-stent restenosis of 99% proximal and 80% distal as well. The patient had intact JOSHUA, which is not a bypass graft and the LOREDO showed connected to LAD. The RCA was occluded and occluded vein graft to the RCA. The procedure was on 06/25/2018. The patient was admitted and cardiac electrophysiology consultation was obtained for further evaluation. The patient was also evaluated by Dr. Winn. PAST MEDICAL HISTORY: Includes: 1. Hypertension. 2. Coronary artery bypass graft in 2009. 3. Angioplasty of the LAD and circumflex as mentioned above in June 2018. 4. COPD. 5. Right leg ulcer. FAMILY HISTORY: Noncontributory. SOCIAL HISTORY: Lives with family. Does not smoke or drink alcohol. REVIEW OF SYSTEMS: Negative other than what was mentioned in the history of present illness. PHYSICAL EXAMINATION: VITAL SIGNS: Blood pressure of 134/61, pulse 72, respiration 19, and temperature 98. HEAD AND NECK: Showed no JVD. LUNGS: Clear. CARDIOVASCULAR: Regular S1 and S2 with no gallop or murmur. CHEST: Sternotomy is intact. ABDOMEN: Soft. EXTREMITIES: Ulcer of the leg. DIAGNOSTIC DATA: His EKG showed sinus tachycardia at rate of 110, biatrial enlargement, and old anterior infarct. LABORATORY DATA: White count of 7.4, hemoglobin 12.5, hematocrit 39.8, and platelet count of 286,000. Sodium 138, potassium is 4.8, BUN of 16, creatinine 1.3, and glucose of 86. Troponin negative x2. ASSESSMENT AND PLAN: 1. Tachycardia. This is sinus tachycardia. No evidence of atrial fibrillation or SVT. Continue metoprolol 25 mg b.i.d. An echocardiogram will also be repeated to evaluate for ejection fraction and wall motion abnormality. 2. Coronary artery disease with history of coronary artery bypass and two stents in LAD and circumflex. chest pain. On Plavix, metoprolol, and Ranexa. 3. Hypertension, on Norvasc and metoprolol. 4. Seizures, on Keppra. 5. Foot ulcer. The case was discussed with the patient's daughter, , and Dr. Reyna. Thank you very much, Dr. Reyna, for allowing me to participate in the care of this patient. Please do not hesitate to contact me for any questions regarding my evaluation. Neal Ames M.D. DR: TICO JOB#: [id number] CC:
[2018-07-13] VITALS (7 sets, daily range): BP systolic 103–145; BP diastolic 46–74
--- NOTE | 2018-07-13 00:15 | Consultation ---
DATE OF CONSULTATION: 07/12/2018 CARDIAC ELECTROPHYSIOLOGY CONSULTATION CONSULTING PHYSICIAN: Neal Ames M.D. REFERRING PHYSICIAN: Shantanu Reyna M.D. REASON FOR CONSULTATION: Tachycardia. HISTORY OF PRESENT ILLNESS: The patient is a 67-year-old gentleman, who I am quite familiar with from his previous admission in June 2018. The patient had elevated troponin and was transferred and underwent cardiac catheterization by Dr. Tatum and underwent percutaneous angioplasty of the LAD as well as circumflex. He had 90% proximal LAD stenosis just prior to first diagonal and distal LAD was grafted by LOREDO. The circumflex had significant in-stent restenosis of 99% proximal and 80% distal as well. The patient had intact JOSHUA, which is not a bypass graft and the LOREDO showed connected to LAD. The RCA was occluded and occluded vein graft to the RCA. The procedure was on 06/25/2018. The patient was admitted and cardiac electrophysiology consultation was obtained for further evaluation. The patient was also evaluated by Dr. Winn. PAST MEDICAL HISTORY: Includes: 1. Hypertension. 2. Coronary artery bypass graft in 2009. 3. Angioplasty of the LAD and circumflex as mentioned above in June 2018. 4. COPD. 5. Right leg ulcer. FAMILY HISTORY: Noncontributory. SOCIAL HISTORY: Lives with family. Does not smoke or drink alcohol. REVIEW OF SYSTEMS: Negative other than what was mentioned in the history of present illness. PHYSICAL EXAMINATION: VITAL SIGNS: Blood pressure of 134/61, pulse 72, respiration 19, and temperature 98. HEAD AND NECK: Showed no JVD. LUNGS: Clear. CARDIOVASCULAR: Regular S1 and S2 with no gallop or murmur. CHEST: Sternotomy is intact. ABDOMEN: Soft. EXTREMITIES: Ulcer of the leg. DIAGNOSTIC DATA: His EKG showed sinus tachycardia at a rate of 110, biatrial enlargement, and old anterior infarct. LABORATORY DATA: White count of 7.4, hemoglobin 12.5, hematocrit 39.8, and platelet count of 286,000. Sodium 138, potassium is 4.8, BUN of 16, creatinine 1.3, and glucose of 86. Troponin negative x2. ASSESSMENT AND PLAN: 1. Tachycardia. This is sinus tachycardia. No evidence of atrial fibrillation or SVT. Continue metoprolol 25 mg b.i.d. An echocardiogram will also be repeated to evaluate for ejection fraction and wall motion abnormality. 2. Coronary artery disease with history of coronary artery bypass and two stents in LAD and circumflex. chest pain. On Plavix, metoprolol, and Ranexa. 3. Hypertension, on Norvasc and metoprolol. 4. Seizures, on Keppra. 5. Foot ulcer. The case was discussed with the patient's daughter, , and Dr. Reyna. Thank you very much, Dr. Reyna, for allowing me to participate in the care of this patient. Please do not hesitate to contact me for any questions regarding my evaluation. Neal Ames M.D. DR: TICO JOB#: [id number] CC:
[2018-07-13] MEDS: HYDROmorphone 1mg/ml Carpuject IVP PRN ×7 (01:00→23:52)
[2018-07-13 07:41] LABS: BASOPHILS % (AUTO) 2.6 % (0.0-2.0); EOSINOPHILS % (AUTO) 2.2 % (0.0-3.0); HEMOGLOBIN 12.2 G/DL (14.2-18.0); LYMPHOCYTES % (AUTO) 26.5 % (20.0-45.0); MEAN CORPUSCULAR VOLUME 82 FL (80-99); MONOCYTES % (AUTO) 16.3 % (1.0-10.0); NEUTROPHILS % (AUTO) 52.3 % (45.0-75.0); PLATELET COUNT 264 K/UL (150-450); RED BLOOD COUNT 4.63 M/UL (4.70-6.10); RED CELL DISTRIBUTION WIDTH 15.1 % (11.6-14.8); WHITE BLOOD COUNT 8.1 K/UL (4.8-10.8)
[2018-07-13 07:52] LABS: ANION GAP 10 mmol/L (5-15); BLOOD UREA NITROGEN 16 mg/dL (7-18); CALCIUM 9.1 MG/DL (8.5-10.1); CARBON DIOXIDE 22 MMOL/L (21-32); CHLORIDE 103 MMOL/L (98-107); CREATININE 1.3 MG/DL (0.55-1.30); POTASSIUM 5.9 MMOL/L (3.5-5.1); SODIUM 135 MMOL/L (136-145)
[2018-07-13] MEDS: Heparin 5000 units/ml inj SUBQ SCH ×3 (09:00→20:36)
[2018-07-13] MEDS: Metoprolol 25mg tab ORAL SCH ×2 (09:00→20:18)
[2018-07-13] MEDS: Ranolazine 500mg tab ORAL SCH ×2 (10:19→20:17)
--- NOTE | 2018-07-13 11:50 | Cardiology Progress Note ---
Assessment/Plan Status: stable Assessment/Plan Assessment Problem List: (1) ACS (acute coronary syndrome) (2) Hx of CABG (3) Decubitus ulcer, ankle, right, unstageable (4) Chest pain (5) Cardiac dysrhythmia (6) Emphysema lung (7) Ulcer of right lower leg PLAN Serial EKG/Troponin Anti-anginal therapy: metoprolol, Ranexa 500 BID, Amlodipine 10 mg Aspirin/plavix Statin Cardaic rehab No further work up needed given recent cardiac cath Referred to [facility] for chronic angina No evidence of stent thrombosis Dispo planning Subjective Cardiovascular: Reports: no symptoms Respiratory: Reports: no symptoms Gastrointestinal/Abdominal: Reports: no symptoms Genitourinary: Reports: no symptoms Subjective No acute events, vitals stable, no CP, troponin negative. Tachycardia resolved. Objective Last 24 Hour Vital Signs Date Time Temp Pulse Resp B/P (MAP) Pulse Ox O2 Delivery O2 Flow Rate FiO2 07/13/18 10:22 97.5 07/13/18 09:15 77 20 Room Air 21 07/13/18 09:00 77 117/46 07/13/18 09:00 77 117/46 07/13/18 08:00 97.5 72 18 117/46 (69) 97 97.5 07/13/18 04:00 98.1 69 19 131/69 (89) 98 98.1 07/13/18 00:00 99.0 64 20 135/65 (88) 95 99.0 07/12/18 21:00 Room Air 07/12/18 20:22 89 128/67 07/12/18 20:00 98.8 20 128/67 (87) 94 98.8 07/12/18 19:03 78 18 Room Air 21 07/12/18 16:00 76 07/12/18 16:00 97.8 87 21 143/73 (96) 97 97.8 07/12/18 12:00 98.0 72 19 135/61 (85) 99 98.0 07/12/18 12:00 77 General Appearance: no apparent distress, alert EENT: PERRL/EOMI, normal ENT inspection Neck: non-tender, normal alignment, supple, normal inspection, no JVD Rhythm: NSR Cardiovascular: normal peripheral pulses, normal rate, regular rhythm Respiratory/Chest: chest wall non-tender, lungs clear Abdomen: normal bowel sounds, non tender Extremities: normal range of motion, non-tender 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 Intake and Output 07/12/18 07/13/18 19:00 07:00 Intake Total 400 ml Output Total 600 ml 1050 ml Balance -200 ml -1050 ml Intake Oral 400 ml Output Urine Total 600 ml 1050 ml Laboratory Tests Test 07/13/18 06:55 White Blood Count 8.1 K/UL (4.8-10.8) Red Blood Count 4.63 M/UL (4.70-6.10) L Hemoglobin 12.2 G/DL (14.2-18.0) L Hematocrit 38.0 % (42.0-52.0) L Mean Corpuscular Volume 82 FL (80-99) Mean Corpuscular Hemoglobin 26.4 PG (27.0-31.0) L Mean Corpuscular Hemoglobin Concent 32.2 G/DL (32.0-36.0) Red Cell Distribution Width 15.1 % (11.6-14.8) H Platelet Count 264 K/UL (150-450) Mean Platelet Volume 6.4 FL (6.5-10.1) L Neutrophils (%) (Auto) 52.3 % (45.0-75.0) Lymphocytes (%) (Auto) 26.5 % (20.0-45.0) Monocytes (%) (Auto) 16.3 % (1.0-10.0) H Eosinophils (%) (Auto) 2.2 % (0.0-3.0) Basophils (%) (Auto) 2.6 % (0.0-2.0) H Sodium Level 135 MMOL/L (136-145) L Potassium Level 5.9 MMOL/L (3.5-5.1) H Chloride Level 103 MMOL/L (98-107) Carbon Dioxide Level 22 MMOL/L (21-32) Anion Gap 10 mmol/L (5-15) Blood Urea Nitrogen 16 mg/dL (7-18) Creatinine 1.3 MG/DL (0.55-1.30) Estimat Glomerular Filtration Rate > 60 mL/min (>60) Glucose Level 96 MG/DL (74-106) Calcium Level 9.1 MG/DL (8.5-10.1) Troponin I 0.000 ng/mL (0.000-0.056) Adonis Winn M.D. Jul 13, 2018 11:50
--- NOTE | 2018-07-13 11:53 | Pulmonology Progress Note ---
Assessment/Plan Problems: (1) ACS (acute coronary syndrome) (2) Hx of CABG (3) Decubitus ulcer, ankle, right, unstageable (4) Chest pain (5) Cardiac dysrhythmia (6) Emphysema lung (7) Ulcer of right lower leg Assessment/Plan doing better respiratory treatment titrate fio2 to sat of 92% wound care f/u by cardiology dc home in am probably Subjective ROS Limited/Unobtainable: No Constitutional: Reports: no symptoms HEENT: Repors: no symptoms Respiratory: Reports: no symptoms Allergies: Coded Allergies: EGG (Verified Allergy, Unknown, 09/22/15) MEPERIDINE (Verified Allergy, Unknown, 12/21/10) NITROGLYCERIN (Verified Allergy, Unknown, hives, 02/18/17) Objective Last 24 Hour Vital Signs Date Time Temp Pulse Resp B/P (MAP) Pulse Ox O2 Delivery O2 Flow Rate FiO2 07/13/18 10:22 97.5 07/13/18 09:15 77 20 Room Air 21 07/13/18 09:00 77 117/46 07/13/18 09:00 77 117/46 07/13/18 08:00 97.5 72 18 117/46 (69) 97 97.5 07/13/18 04:00 98.1 69 19 131/69 (89) 98 98.1 07/13/18 00:00 99.0 64 20 135/65 (88) 95 99.0 07/12/18 21:00 Room Air 07/12/18 20:22 89 128/67 07/12/18 20:00 98.8 20 128/67 (87) 94 98.8 07/12/18 19:03 78 18 Room Air 21 07/12/18 16:00 76 07/12/18 16:00 97.8 87 21 143/73 (96) 97 97.8 07/12/18 12:00 98.0 72 19 135/61 (85) 99 98.0 07/12/18 12:00 77 Intake and Output 07/12/18 07/13/18 19:00 07:00 Intake Total 400 ml Output Total 600 ml 1050 ml Balance -200 ml -1050 ml Intake Oral 400 ml Output Urine Total 600 ml 1050 ml General Appearance: cachetic HEENT: normocephalic, atraumatic Respiratory/Chest: chest wall non-tender, lungs clear Cardiovascular: normal peripheral pulses, normal rate, regular rhythm Abdomen: normal bowel sounds, soft, non tender Genitourinary: normal external genitalia Extremities: no clubbing Skin: no rash, no ulcers Lymphatic: no groin adenopathy Musculoskeletal: normal muscle bulk Laboratory Tests 07/13/18 06:55: White Blood Count 8.1, Red Blood Count 4.63L, Hemoglobin 12.2L, Hematocrit 38.0L , Mean Corpuscular Volume 82, Mean Corpuscular Hemoglobin 26.4L, Mean Corpuscular Hemoglobin Concent 32.2, Red Cell Distribution Width 15.1H, Platelet Count 264, Mean Platelet Volume 6.4L, Neutrophils (%) (Auto) 52.3, Lymphocytes (%) (Auto) 26.5, Monocytes (%) (Auto) 16.3H, Eosinophils (%) (Auto) 2.2, Basophils (%) (Auto) 2.6H, Sodium Level 135L, Potassium Level 5.9H, Chloride Level 103, Carbon Dioxide Level 22, Anion Gap 10, Blood Urea Nitrogen 16, Creatinine 1.3, Estimat Glomerular Filtration Rate > 60, Glucose Level 96, Calcium Level 9.1, Troponin I 0.000 Current Medications Medications (Trade) Dose Ordered Sig/Aminata Route PRN Reason Start Time Stop Time Status Last Admin Dose Admin Acetaminophen (Tylenol) 650 mg Q4H PRN ORAL fever 07/12/18 18:00 08/09/18 17:59 Al Hydroxide/Mg Hydroxide (Mylanta II) 30 ml Q6H PRN ORAL dyspepsia 07/12/18 18:00 08/09/18 17:59 Albuterol/ Ipratropium (Albuterol/ Ipratropium) 3 ml Q4H PRN HHN Shortness of Breath 07/12/18 18:00 07/16/18 17:59 Amlodipine Besylate (Norvasc) 5 mg DAILY ORAL 07/13/18 09:00 08/11/18 08:59 Clopidogrel Bisulfate (Plavix) 75 mg DAILY ORAL 07/13/18 09:00 08/11/18 08:59 07/13/18 10:20 Dextrose (Dextrose 50%) 25 ml STAT PRN IV Hypoglycemia 07/12/18 18:00 08/11/18 17:59 Dextrose (Dextrose 50%) 50 ml STAT PRN IV Hypoglycemia 07/12/18 18:00 08/11/18 17:59 Famotidine (Pepcid) 20 mg DAILY ORAL 07/13/18 09:00 08/11/18 08:59 07/13/18 10:20 Heparin Sodium (Porcine) (Heparin 5000 units/ml) 5,000 units EVERY 12 HOURS SUBQ 07/12/18 21:00 08/09/18 08:59 07/12/18 20:23 Hydromorphone HCl (Dilaudid) 1 mg Q3H PRN IVP Severe Pain (Pain Scale 7-10) 07/12/18 19:15 07/17/18 19:14 07/13/18 10:22 Levetiracetam (Keppra) 500 mg Q12HR ORAL 07/12/18 21:00 08/10/18 20:59 07/13/18 10:20 Lorazepam (Ativan 2mg/ml 1ml) 0.5 mg Q4H PRN IV For Anxiety 07/12/18 18:00 07/17/18 17:59 Metoprolol Tartrate (Lopressor) 25 mg Q12HR ORAL 07/12/18 21:00 08/10/18 20:59 07/12/18 20:22 Mirtazapine (Remeron) 45 mg BEDTIME ORAL 07/12/18 21:00 08/11/18 20:59 07/12/18 20:22 Ondansetron HCl (Zofran) 4 mg Q6H PRN IVP Nausea & Vomiting 07/12/18 18:00 08/09/18 17:59 Polyethylene Glycol (Miralax) 17 gm HSPRN PRN ORAL Constipation 07/12/18 21:00 08/09/18 20:59 Ranolazine (Ranexa ER 500mg) 500 mg Q12HR ORAL 07/12/18 21:00 08/10/18 20:59 07/13/18 10:19 Zolpidem Tartrate (Ambien) 5 mg HSPRN PRN ORAL Insomnia 07/12/18 21:00 07/17/18 20:59 Jessie Magana MD Jul 13, 2018 11:53
--- NOTE | 2018-07-13 13:12 | General Progress Note ---
Assessment/Plan Status: stable, progressing Assessment/Plan MDD anxiety remeron 45mg qhs provided ro/st Subjective Date patient seen: Jul 13, 2018 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: Reports: anxiety, depressed, emotional problems Allergies: Coded Allergies: EGG (Verified Allergy, Unknown, 09/22/15) MEPERIDINE (Verified Allergy, Unknown, 12/21/10) NITROGLYCERIN (Verified Allergy, Unknown, hives, 02/18/17) Objective Last 24 Hour Vital Signs Date Time Temp Pulse Resp B/P (MAP) Pulse Ox O2 Delivery O2 Flow Rate FiO2 07/13/18 12:00 98.1 79 18 127/59 (81) 95 98.1 07/13/18 10:22 97.5 07/13/18 09:15 77 20 Room Air 21 07/13/18 09:00 77 117/46 07/13/18 09:00 77 117/46 07/13/18 09:00 Room Air 07/13/18 08:00 97.5 72 18 117/46 (69) 97 97.5 07/13/18 04:00 98.1 69 19 131/69 (89) 98 98.1 07/13/18 00:00 99.0 64 20 135/65 (88) 95 99.0 07/12/18 21:00 Room Air 07/12/18 20:22 89 128/67 07/12/18 20:00 98.8 20 128/67 (87) 94 98.8 07/12/18 19:03 78 18 Room Air 21 07/12/18 16:00 76 07/12/18 16:00 97.8 87 21 143/73 (96) 97 97.8 Intake and Output 07/12/18 07/13/18 19:00 07:00 Intake Total 400 ml Output Total 600 ml 1050 ml Balance -200 ml -1050 ml Intake Oral 400 ml Output Urine Total 600 ml 1050 ml Laboratory Tests 07/13/18 06:55: White Blood Count 8.1, Red Blood Count 4.63L, Hemoglobin 12.2L, Hematocrit 38.0L , Mean Corpuscular Volume 82, Mean Corpuscular Hemoglobin 26.4L, Mean Corpuscular Hemoglobin Concent 32.2, Red Cell Distribution Width 15.1H, Platelet Count 264, Mean Platelet Volume 6.4L, Neutrophils (%) (Auto) 52.3, Lymphocytes (%) (Auto) 26.5, Monocytes (%) (Auto) 16.3H, Eosinophils (%) (Auto) 2.2, Basophils (%) (Auto) 2.6H, Sodium Level 135L, Potassium Level 5.9H, Chloride Level 103, Carbon Dioxide Level 22, Anion Gap 10, Blood Urea Nitrogen 16, Creatinine 1.3, Estimat Glomerular Filtration Rate > 60, Glucose Level 96, Calcium Level 9.1, Troponin I 0.000 Height (Feet): 6 Height (Inches): 1.00 Weight (Pounds): 130 General Appearance: no apparent distress, alert Neurologic: oriented x 3, responsive, depressed affect Rachael Buckley MD Jul 13, 2018 13:12
--- NOTE | 2018-07-13 17:47 | General Progress Note ---
Assessment/Plan Assessment/Plan (1) Opioid dependency (2) Pain of right lower extremity (3) Osteomyelitis of right lower extremity (4) Nonhealing ulcer of right lower extremity (5) DM (diabetes mellitus) Pt continued on Dilaudid. Pt was d/w Dr. Rivers and he concurred. Subjective Date patient seen: Jul 13, 2018 Time patient seen: 05:15 - pm Allergies: Coded Allergies: EGG (Verified Allergy, Unknown, 09/22/15) MEPERIDINE (Verified Allergy, Unknown, 12/21/10) NITROGLYCERIN (Verified Allergy, Unknown, hives, 02/18/17) Subjective Constitutional: Denies: chills, diaphoresis, fever, malaise, no symptoms, other , weakness HEENT: Denies: blurred vision, double vision, ear discharge, ear pain, eye pain , mouth pain, mouth swelling, no symptoms, nose congestion, nose pain, other, tearing, throat pain, throat swelling Cardiovascular: Denies: chest pain, edema, irregular heart rate, lightheadedness, no symptoms, other, palpitations, syncope Respiratory: Denies: SOB at rest, SOB with excertion, cough, no symptoms, orthopnea, other, shortness of breath, sputum, stridor, wheezing Gastrointestinal/Abdominal: Denies: abdomen distended, abdominal pain, black stools, blood in stool, constipated, diarrhea, difficulty swallowing, nausea, no symptoms, other, poor appetite, poor fluid intake, rectal bleeding, tarry stools, vomiting Genitourinary: Denies: burning, discharge, flank pain, frequency, hematuria, incontinence, no symptoms, other, pain, urgency 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: Denies: anxiety, depressed, emotional problems, headache, no symptoms, numbness, other, paresthesia, pre-existing deficit, seizure, tingling, tremors, weakness Endocrine: Denies: excessive sweating, flushing, increased hunger, increased thirst, increased urine, intolerance to cold, intolerance to heat, no symptoms, other, unexplained weight gain, unexplained weight loss Hematologic/Lymphatic: Denies: anemia, easy bleeding, easy bruising, no symptoms, other Subjective Pt reports that his pain has been stable on the Dilaudid and it had been changed to IV every 3H as per hydrographic surveyor. He has no new complaints. Objective Last 24 Hour Vital Signs Date Time Temp Pulse Resp B/P (MAP) Pulse Ox O2 Delivery O2 Flow Rate FiO2 07/13/18 16:57 98.1 07/13/18 14:12 98.1 07/13/18 13:42 98.1 07/13/18 12:00 98.1 79 18 127/59 (81) 95 98.1 07/13/18 10:22 97.5 07/13/18 09:15 77 20 Room Air 21 07/13/18 09:00 77 117/46 07/13/18 09:00 77 117/46 07/13/18 09:00 Room Air 07/13/18 08:00 97.5 72 18 117/46 (69) 97 97.5 07/13/18 04:00 98.1 69 19 131/69 (89) 98 98.1 07/13/18 00:00 99.0 64 20 135/65 (88) 95 99.0 07/12/18 21:00 Room Air 07/12/18 20:22 89 128/67 07/12/18 20:00 98.8 20 128/67 (87) 94 98.8 07/12/18 19:03 78 18 Room Air 21 Intake and Output 07/12/18 07/13/18 19:00 07:00 Intake Total 400 ml Output Total 600 ml 1050 ml Balance -200 ml -1050 ml Intake Oral 400 ml Output Urine Total 600 ml 1050 ml Laboratory Tests 07/13/18 06:55: White Blood Count 8.1, Red Blood Count 4.63L, Hemoglobin 12.2L, Hematocrit 38.0L , Mean Corpuscular Volume 82, Mean Corpuscular Hemoglobin 26.4L, Mean Corpuscular Hemoglobin Concent 32.2, Red Cell Distribution Width 15.1H, Platelet Count 264, Mean Platelet Volume 6.4L, Neutrophils (%) (Auto) 52.3, Lymphocytes (%) (Auto) 26.5, Monocytes (%) (Auto) 16.3H, Eosinophils (%) (Auto) 2.2, Basophils (%) (Auto) 2.6H, Sodium Level 135L, Potassium Level 5.9H, Chloride Level 103, Carbon Dioxide Level 22, Anion Gap 10, Blood Urea Nitrogen 16, Creatinine 1.3, Estimat Glomerular Filtration Rate > 60, Glucose Level 96, Calcium Level 9.1, Troponin I 0.000 Height (Feet): 6 Height (Inches): 1.00 Weight (Pounds): 130 Objective General Appearance: no apparent distress, alert EENT: PERRL/EOMI, normal ENT inspection Neck: non-tender, normal alignment Cardiovascular: normal rate, regular rhythm Respiratory/Chest: lungs clear, normal breath sounds Abdomen: non tender, soft Extremities: other - wound RLE lateral with dressing C/D/I Edema: trace edema Neurologic: alert, oriented x 3 Rafita Zuñiga Jul 13, 2018 17:47
--- NOTE | 2018-07-13 19:30 | Internal Med Progress Note ---
Subjective Date of Service: Jul 13, 2018 Physician Name ReynaShantanu medrano Attending Physician Phil Wright MD Current Medications Medications (Trade) Dose Ordered Sig/Aminata Route PRN Reason Start Time Stop Time Status Last Admin Dose Admin Acetaminophen (Tylenol) 650 mg Q4H PRN ORAL fever 07/12/18 18:00 08/09/18 17:59 Al Hydroxide/Mg Hydroxide (Mylanta II) 30 ml Q6H PRN ORAL dyspepsia 07/12/18 18:00 08/09/18 17:59 Albuterol/ Ipratropium (Albuterol/ Ipratropium) 3 ml Q4H PRN HHN Shortness of Breath 07/12/18 18:00 07/16/18 17:59 Amlodipine Besylate (Norvasc) 5 mg DAILY ORAL 07/13/18 09:00 08/11/18 08:59 Clopidogrel Bisulfate (Plavix) 75 mg DAILY ORAL 07/13/18 09:00 08/11/18 08:59 07/13/18 10:20 Dextrose (Dextrose 50%) 25 ml STAT PRN IV Hypoglycemia 07/12/18 18:00 08/11/18 17:59 Dextrose (Dextrose 50%) 50 ml STAT PRN IV Hypoglycemia 07/12/18 18:00 08/11/18 17:59 Famotidine (Pepcid) 20 mg DAILY ORAL 07/13/18 09:00 08/11/18 08:59 07/13/18 10:20 Heparin Sodium (Porcine) (Heparin 5000 units/ml) 5,000 units EVERY 12 HOURS SUBQ 07/12/18 21:00 08/09/18 08:59 07/12/18 20:23 Hydromorphone HCl (Dilaudid) 1 mg Q3H PRN IVP Severe Pain (Pain Scale 7-10) 07/12/18 19:15 07/17/18 19:14 07/13/18 16:57 Levetiracetam (Keppra) 500 mg Q12HR ORAL 07/12/18 21:00 08/10/18 20:59 07/13/18 10:20 Lorazepam (Ativan 2mg/ml 1ml) 0.5 mg Q4H PRN IV For Anxiety 07/12/18 18:00 07/17/18 17:59 Metoprolol Tartrate (Lopressor) 25 mg Q12HR ORAL 07/12/18 21:00 08/10/18 20:59 07/12/18 20:22 Mirtazapine (Remeron) 45 mg BEDTIME ORAL 07/12/18 21:00 08/11/18 20:59 07/12/18 20:22 Ondansetron HCl (Zofran) 4 mg Q6H PRN IVP Nausea & Vomiting 07/12/18 18:00 08/09/18 17:59 Polyethylene Glycol (Miralax) 17 gm HSPRN PRN ORAL Constipation 07/12/18 21:00 08/09/18 20:59 Ranolazine (Ranexa ER 500mg) 500 mg Q12HR ORAL 07/12/18 21:00 08/10/18 20:59 07/13/18 10:19 Zolpidem Tartrate (Ambien) 5 mg HSPRN PRN ORAL Insomnia 07/12/18 21:00 07/17/18 20:59 Allergies: Coded Allergies: EGG (Verified Allergy, Unknown, 09/22/15) MEPERIDINE (Verified Allergy, Unknown, 12/21/10) NITROGLYCERIN (Verified Allergy, Unknown, hives, 02/18/17) ROS Limited/Unobtainable: No Constitutional: Reports: no symptoms HEENT: Reports: no symptoms Cardiovascular: Reports: no symptoms Respiratory: Reports: no symptoms Gastrointestinal/Abdominal: Reports: no symptoms Genitourinary: Reports: no symptoms 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: Reports: no symptoms Subjective 67 YO M admitted with chest pain. Cover for Int Med-Dr Wright. Wants dilaudid increased Objective Last Vital Signs Date Time Temp Pulse Resp B/P (MAP) Pulse Ox O2 Delivery O2 Flow Rate FiO2 07/13/18 19:15 97.5 80 18 103/54 (70) 96 97.5 07/13/18 09:15 Room Air 21 Laboratory Tests Test 07/13/18 06:55 White Blood Count 8.1 K/UL (4.8-10.8) Red Blood Count 4.63 M/UL (4.70-6.10) L Hemoglobin 12.2 G/DL (14.2-18.0) L Hematocrit 38.0 % (42.0-52.0) L Mean Corpuscular Volume 82 FL (80-99) Mean Corpuscular Hemoglobin 26.4 PG (27.0-31.0) L Mean Corpuscular Hemoglobin Concent 32.2 G/DL (32.0-36.0) Red Cell Distribution Width 15.1 % (11.6-14.8) H Platelet Count 264 K/UL (150-450) Mean Platelet Volume 6.4 FL (6.5-10.1) L Neutrophils (%) (Auto) 52.3 % (45.0-75.0) Lymphocytes (%) (Auto) 26.5 % (20.0-45.0) Monocytes (%) (Auto) 16.3 % (1.0-10.0) H Eosinophils (%) (Auto) 2.2 % (0.0-3.0) Basophils (%) (Auto) 2.6 % (0.0-2.0) H Sodium Level 135 MMOL/L (136-145) L Potassium Level 5.9 MMOL/L (3.5-5.1) H Chloride Level 103 MMOL/L (98-107) Carbon Dioxide Level 22 MMOL/L (21-32) Anion Gap 10 mmol/L (5-15) Blood Urea Nitrogen 16 mg/dL (7-18) Creatinine 1.3 MG/DL (0.55-1.30) Estimat Glomerular Filtration Rate > 60 mL/min (>60) Glucose Level 96 MG/DL (74-106) Calcium Level 9.1 MG/DL (8.5-10.1) Troponin I 0.000 ng/mL (0.000-0.056) Intake and Output 07/12/18 07/13/18 19:00 07:00 Intake Total 400 ml Output Total 600 ml 1050 ml Balance -200 ml -1050 ml Intake Oral 400 ml Output Urine Total 600 ml 1050 ml Objective General Appearance: alert, mild distress, thin EENT: PERRL/EOMI, normal ENT inspection, TMs normal Neck: non-tender, normal alignment, supple, normal inspection Cardiovascular: normal peripheral pulses, normal rate, regular rhythm, no gallop/murmur, no JVD Respiratory/Chest: chest wall non-tender, lungs clear, normal breath sounds, no respiratory distress, no accessory muscle use Abdomen: normal bowel sounds, non tender, soft, no organomegaly, no mass Extremities: normal range of motion 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 See cardiology note. (4) COPD exacerbation (5) Seizure disorder Assessment & Plan: Continue Keppra Status: progressing Assessment/Plan Discharge planning: home with home health Shantanu Reyna MD Jul 13, 2018 19:30
[2018-07-14] MEDS: HYDROmorphone 1mg/ml Carpuject IVP PRN ×6 (03:44→21:35)
[2018-07-14 04:00] VITALS: BP 123/64
--- NOTE | 2018-07-14 07:48 | General Progress Note ---
Assessment/Plan Assessment/Plan (1) Opioid dependency (2) Pain of right lower extremity (3) Osteomyelitis of right lower extremity (4) Nonhealing ulcer of right lower extremity (5) DM (diabetes mellitus) Pt continued on Dilaudid. Pt was d/w Dr. Rivers and he concurred. Subjective Date patient seen: Jul 14, 2018 Time patient seen: 07:15 - am Allergies: Coded Allergies: EGG (Verified Allergy, Unknown, 09/22/15) MEPERIDINE (Verified Allergy, Unknown, 12/21/10) NITROGLYCERIN (Verified Allergy, Unknown, hives, 02/18/17) Subjective Constitutional: Denies: chills, diaphoresis, fever, malaise, no symptoms, other , weakness HEENT: Denies: blurred vision, double vision, ear discharge, ear pain, eye pain , mouth pain, mouth swelling, no symptoms, nose congestion, nose pain, other, tearing, throat pain, throat swelling Cardiovascular: Denies: chest pain, edema, irregular heart rate, lightheadedness, no symptoms, other, palpitations, syncope Respiratory: Denies: SOB at rest, SOB with excertion, cough, no symptoms, orthopnea, other, shortness of breath, sputum, stridor, wheezing Gastrointestinal/Abdominal: Denies: abdomen distended, abdominal pain, black stools, blood in stool, constipated, diarrhea, difficulty swallowing, nausea, no symptoms, other, poor appetite, poor fluid intake, rectal bleeding, tarry stools, vomiting Genitourinary: Denies: burning, discharge, flank pain, frequency, hematuria, incontinence, no symptoms, other, pain, urgency 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: Denies: anxiety, depressed, emotional problems, headache, no symptoms, numbness, other, paresthesia, pre-existing deficit, seizure, tingling, tremors, weakness Endocrine: Denies: excessive sweating, flushing, increased hunger, increased thirst, increased urine, intolerance to cold, intolerance to heat, no symptoms, other, unexplained weight gain, unexplained weight loss Hematologic/Lymphatic: Denies: anemia, easy bleeding, easy bruising, no symptoms, other Subjective Pt is resting in bed and reports that his pain is tolerated on the Dilaudid as needed. He has no new complaints. Objective Last 24 Hour Vital Signs Date Time Temp Pulse Resp B/P (MAP) Pulse Ox O2 Delivery O2 Flow Rate FiO2 07/14/18 04:00 98.1 69 18 123/64 (83) 94 98.1 07/13/18 23:55 98.2 75 18 145/74 (97) 93 98.2 07/13/18 23:20 76 16 98 Room Air 21 07/13/18 23:12 73 18 94 Room Air 21 07/13/18 21:00 Room Air 07/13/18 20:18 80 105/54 07/13/18 19:50 80 18 Room Air 21 07/13/18 19:15 97.5 80 18 103/54 (70) 96 97.5 07/13/18 17:27 98.1 07/13/18 16:57 98.1 07/13/18 16:00 98.4 77 18 107/61 (76) 96 98.4 07/13/18 13:42 98.1 07/13/18 12:00 98.1 79 18 127/59 (81) 95 98.1 07/13/18 10:22 97.5 07/13/18 09:15 77 20 Room Air 21 07/13/18 09:00 77 117/46 07/13/18 09:00 77 117/46 07/13/18 09:00 Room Air 07/13/18 08:00 97.5 72 18 117/46 (69) 97 97.5 Intake and Output 07/13/18 07/14/18 19:00 07:00 Intake Total 600 ml Output Total 850 ml Balance 600 ml -850 ml Other 600 ml Output Urine Total 850 ml # Voids 3 4 # Bowel Movements 1 Height (Feet): 6 Height (Inches): 1.00 Weight (Pounds): 130 Objective General Appearance: no apparent distress, alert EENT: PERRL/EOMI, normal ENT inspection Neck: non-tender, normal alignment Cardiovascular: normal rate, regular rhythm Respiratory/Chest: lungs clear, normal breath sounds Abdomen: non tender, soft Extremities: other - wound RLE lateral with dressing C/D/I Edema: trace edema Neurologic: alert, oriented x 3 Rafita Zuñiga Jul 14, 2018 07:48
[2018-07-14 08:00] VITALS: BP 132/60
[2018-07-14 08:04] LABS: BASOPHILS % (AUTO) 1.3 % (0.0-2.0); LYMPHOCYTES % (AUTO) 24.7 % (20.0-45.0); MEAN CORPUSCULAR VOLUME 82 FL (80-99); MONOCYTES % (AUTO) 16.4 % (1.0-10.0); NEUTROPHILS % (AUTO) 55.5 % (45.0-75.0); PLATELET COUNT 264 K/UL (150-450); RED BLOOD COUNT 4.77 M/UL (4.70-6.10); WHITE BLOOD COUNT 7.4 K/UL (4.8-10.8)
[2018-07-14 08:16] LABS: ANION GAP 9 mmol/L (5-15); BLOOD UREA NITROGEN 18 mg/dL (7-18); CALCIUM 8.8 MG/DL (8.5-10.1); CARBON DIOXIDE 25 MMOL/L (21-32); CHLORIDE 105 MMOL/L (98-107); CREATININE 1.5 MG/DL (0.55-1.30); POTASSIUM 4.7 MMOL/L (3.5-5.1); SODIUM 139 MMOL/L (136-145)
[2018-07-14] MEDS: Metoprolol 25mg tab ORAL SCH ×2 (09:00→21:34)
[2018-07-14] MEDS: Heparin 5000 units/ml inj SUBQ SCH ×2 (09:00→21:00)
[2018-07-14] MEDS: Ranolazine 500mg tab ORAL SCH ×2 (09:56→21:33)
--- NOTE | 2018-07-14 10:37 | General Progress Note ---
Assessment/Plan Status: stable Assessment/Plan MDD anxiety remeron 45mg qhs provided ro/st script was given to patient Subjective Date patient seen: Jul 14, 2018 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: Reports: anxiety, depressed, emotional problems Allergies: Coded Allergies: EGG (Verified Allergy, Unknown, 09/22/15) MEPERIDINE (Verified Allergy, Unknown, 12/21/10) NITROGLYCERIN (Verified Allergy, Unknown, hives, 02/18/17) Subjective the pt stated that he is tired of being sick Objective Last 24 Hour Vital Signs Date Time Temp Pulse Resp B/P (MAP) Pulse Ox O2 Delivery O2 Flow Rate FiO2 07/14/18 09:00 74 107/56 07/14/18 09:00 74 107/56 07/14/18 08:00 99.5 72 18 132/60 (84) 96 99.5 07/14/18 04:00 98.1 69 18 123/64 (83) 94 98.1 07/13/18 23:55 98.2 75 18 145/74 (97) 93 98.2 07/13/18 23:20 76 16 98 Room Air 21 07/13/18 23:12 73 18 94 Room Air 21 07/13/18 21:00 Room Air 07/13/18 20:18 80 105/54 07/13/18 19:50 80 18 Room Air 21 07/13/18 19:15 97.5 80 18 103/54 (70) 96 97.5 07/13/18 17:27 98.1 07/13/18 16:57 98.1 07/13/18 16:00 98.4 77 18 107/61 (76) 96 98.4 07/13/18 13:42 98.1 07/13/18 12:00 98.1 79 18 127/59 (81) 95 98.1 Intake and Output 07/13/18 07/14/18 19:00 07:00 Intake Total 600 ml Output Total 850 ml Balance 600 ml -850 ml Other 600 ml Output Urine Total 850 ml # Voids 3 4 # Bowel Movements 1 Laboratory Tests 07/14/18 07:45: White Blood Count 7.4, Red Blood Count 4.77, Hemoglobin 12.0L, Hematocrit 39.0L , Mean Corpuscular Volume 82, Mean Corpuscular Hemoglobin 25.3L, Mean Corpuscular Hemoglobin Concent 30.9L, Red Cell Distribution Width 15.0H, Platelet Count 264, Mean Platelet Volume 6.1L, Neutrophils (%) (Auto) 55.5, Lymphocytes (%) (Auto) 24.7, Monocytes (%) (Auto) 16.4H, Eosinophils (%) (Auto) 2.0, Basophils (%) (Auto) 1.3, Sodium Level 139, Potassium Level 4.7, Chloride Level 105, Carbon Dioxide Level 25, Anion Gap 9, Blood Urea Nitrogen 18, Creatinine 1.5H, Estimat Glomerular Filtration Rate 56.4, Glucose Level 104, Calcium Level 8.8 Height (Feet): 6 Height (Inches): 1.00 Weight (Pounds): 130 General Appearance: no apparent distress, alert Neurologic: oriented x 3, responsive, depressed affect Rachael Buckley MD Jul 14, 2018 10:37
[2018-07-14 11:44] VITALS: BP 131/59
--- NOTE | 2018-07-14 13:18 | Cardiology Progress Note ---
Assessment/Plan Status: stable Assessment/Plan Assessment Problem List: (1) ACS (acute coronary syndrome) (2) Hx of CABG (3) Decubitus ulcer, ankle, right, unstageable (4) Chest pain (5) Cardiac dysrhythmia (6) Emphysema lung (7) Ulcer of right lower leg PLAN Patient is s/p angioplasty of instent restensis of LAD and LCx - no evidence of stent thrombosis Anti-anginal therapy: metoprolol, Ranexa 500 BID, Amlodipine 10 mg Maintain antiplatelet Continue Statin [facility] Referred to [facility] for chronic angina Dispo planning Subjective Cardiovascular: Reports: no symptoms Respiratory: Reports: no symptoms Gastrointestinal/Abdominal: Reports: no symptoms Genitourinary: Reports: no symptoms Subjective No acute events, vitals stable, no CP, troponin negative. Tachycardia resolved. Plan to d/c today with home health. Objective Last 24 Hour Vital Signs Date Time Temp Pulse Resp B/P (MAP) Pulse Ox O2 Delivery O2 Flow Rate FiO2 07/14/18 11:44 98.7 75 17 131/59 (83) 93 98.7 07/14/18 09:00 Room Air 07/14/18 09:00 74 107/56 07/14/18 09:00 74 107/56 07/14/18 08:00 99.5 72 18 132/60 (84) 96 99.5 07/14/18 04:00 98.1 69 18 123/64 (83) 94 98.1 07/13/18 23:55 98.2 75 18 145/74 (97) 93 98.2 07/13/18 23:20 76 16 98 Room Air 21 07/13/18 23:12 73 18 94 Room Air 21 07/13/18 21:00 Room Air 07/13/18 20:18 80 105/54 07/13/18 19:50 80 18 Room Air 21 07/13/18 19:15 97.5 80 18 103/54 (70) 96 97.5 07/13/18 17:27 98.1 07/13/18 16:57 98.1 07/13/18 16:00 98.4 77 18 107/61 (76) 96 98.4 07/13/18 13:42 98.1 General Appearance: no apparent distress, mild distress EENT: PERRL/EOMI, normal ENT inspection Neck: non-tender, normal alignment Rhythm: NSR Cardiovascular: normal peripheral pulses, normal rate Respiratory/Chest: chest wall non-tender, lungs clear Abdomen: normal bowel sounds, non tender Extremities: normal range of motion, non-tender 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 Intake and Output 07/13/18 07/14/18 18:59 06:59 Intake Total 600 ml Balance 600 ml Other 600 ml # Voids 3 Laboratory Tests Test 07/14/18 07:45 White Blood Count 7.4 K/UL (4.8-10.8) Red Blood Count 4.77 M/UL (4.70-6.10) Hemoglobin 12.0 G/DL (14.2-18.0) L Hematocrit 39.0 % (42.0-52.0) L Mean Corpuscular Volume 82 FL (80-99) Mean Corpuscular Hemoglobin 25.3 PG (27.0-31.0) L Mean Corpuscular Hemoglobin Concent 30.9 G/DL (32.0-36.0) L Red Cell Distribution Width 15.0 % (11.6-14.8) H Platelet Count 264 K/UL (150-450) Mean Platelet Volume 6.1 FL (6.5-10.1) L Neutrophils (%) (Auto) 55.5 % (45.0-75.0) Lymphocytes (%) (Auto) 24.7 % (20.0-45.0) Monocytes (%) (Auto) 16.4 % (1.0-10.0) H Eosinophils (%) (Auto) 2.0 % (0.0-3.0) Basophils (%) (Auto) 1.3 % (0.0-2.0) Sodium Level 139 MMOL/L (136-145) Potassium Level 4.7 MMOL/L (3.5-5.1) Chloride Level 105 MMOL/L (98-107) Carbon Dioxide Level 25 MMOL/L (21-32) Anion Gap 9 mmol/L (5-15) Blood Urea Nitrogen 18 mg/dL (7-18) Creatinine 1.5 MG/DL (0.55-1.30) H Estimat Glomerular Filtration Rate 56.4 mL/min (>60) Glucose Level 104 MG/DL (74-106) Calcium Level 8.8 MG/DL (8.5-10.1) Adonis Winn M.D. Jul 14, 2018 13:18
--- NOTE | 2018-07-14 14:24 | Pulmonology Progress Note ---
Assessment/Plan Problems: (1) ACS (acute coronary syndrome) (2) Hx of CABG (3) Decubitus ulcer, ankle, right, unstageable (4) Chest pain (5) Cardiac dysrhythmia (6) Emphysema lung (7) Ulcer of right lower leg Assessment/Plan wants to go home tomorrow feels dizzy today respiratory treatment titrate fio2 to sat of 92% wound care f/u by cardiology dc home in am probably Subjective ROS Limited/Unobtainable: No Constitutional: Reports: no symptoms HEENT: Repors: no symptoms Respiratory: Reports: no symptoms Cardiovascular: Reports: no symptoms Allergies: Coded Allergies: EGG (Verified Allergy, Unknown, 09/22/15) MEPERIDINE (Verified Allergy, Unknown, 12/21/10) NITROGLYCERIN (Verified Allergy, Unknown, hives, 02/18/17) Objective Last 24 Hour Vital Signs Date Time Temp Pulse Resp B/P (MAP) Pulse Ox O2 Delivery O2 Flow Rate FiO2 07/14/18 11:44 98.7 75 17 131/59 (83) 93 98.7 07/14/18 09:00 Room Air 07/14/18 09:00 74 107/56 07/14/18 09:00 74 107/56 07/14/18 08:00 99.5 72 18 132/60 (84) 96 99.5 07/14/18 04:00 98.1 69 18 123/64 (83) 94 98.1 07/13/18 23:55 98.2 75 18 145/74 (97) 93 98.2 07/13/18 23:20 76 16 98 Room Air 21 07/13/18 23:12 73 18 94 Room Air 21 07/13/18 21:00 Room Air 07/13/18 20:18 80 105/54 07/13/18 19:50 80 18 Room Air 21 07/13/18 19:15 97.5 80 18 103/54 (70) 96 97.5 07/13/18 17:27 98.1 07/13/18 16:57 98.1 07/13/18 16:00 98.4 77 18 107/61 (76) 96 98.4 Intake and Output 07/13/18 07/14/18 19:00 07:00 Intake Total 600 ml Output Total 850 ml Balance 600 ml -850 ml Other 600 ml Output Urine Total 850 ml # Voids 3 4 # Bowel Movements 1 General Appearance: cachetic HEENT: normocephalic, atraumatic Respiratory/Chest: chest wall non-tender, lungs clear Cardiovascular: normal peripheral pulses, normal rate Abdomen: normal bowel sounds, soft, non tender Skin: no rash 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: proofer black and white II-XII grossly normal Laboratory Tests 07/14/18 07:45: White Blood Count 7.4, Red Blood Count 4.77, Hemoglobin 12.0L, Hematocrit 39.0L , Mean Corpuscular Volume 82, Mean Corpuscular Hemoglobin 25.3L, Mean Corpuscular Hemoglobin Concent 30.9L, Red Cell Distribution Width 15.0H, Platelet Count 264, Mean Platelet Volume 6.1L, Neutrophils (%) (Auto) 55.5, Lymphocytes (%) (Auto) 24.7, Monocytes (%) (Auto) 16.4H, Eosinophils (%) (Auto) 2.0, Basophils (%) (Auto) 1.3, Sodium Level 139, Potassium Level 4.7, Chloride Level 105, Carbon Dioxide Level 25, Anion Gap 9, Blood Urea Nitrogen 18, Creatinine 1.5H, Estimat Glomerular Filtration Rate 56.4, Glucose Level 104, Calcium Level 8.8 Current Medications Medications (Trade) Dose Ordered Sig/Aminata Route PRN Reason Start Time Stop Time Status Last Admin Dose Admin Acetaminophen (Tylenol) 650 mg Q4H PRN ORAL fever 07/12/18 18:00 08/09/18 17:59 Al Hydroxide/Mg Hydroxide (Mylanta II) 30 ml Q6H PRN ORAL dyspepsia 07/12/18 18:00 08/09/18 17:59 Albuterol/ Ipratropium (Albuterol/ Ipratropium) 3 ml Q4H PRN HHN Shortness of Breath 07/12/18 18:00 07/16/18 17:59 07/13/18 23:09 Amlodipine Besylate (Norvasc) 5 mg DAILY ORAL 07/13/18 09:00 08/11/18 08:59 Clopidogrel Bisulfate (Plavix) 75 mg DAILY ORAL 07/13/18 09:00 08/11/18 08:59 07/14/18 09:56 Dextrose (Dextrose 50%) 25 ml STAT PRN IV Hypoglycemia 07/12/18 18:00 9/18/18 17:59 Dextrose (Dextrose 50%) 50 ml STAT PRN IV Hypoglycemia 07/12/18 18:00 08/11/18 17:59 Famotidine (Pepcid) 20 mg DAILY ORAL 07/13/18 09:00 08/11/18 08:59 07/14/18 09:56 Heparin Sodium (Porcine) (Heparin 5000 units/ml) 5,000 units EVERY 12 HOURS SUBQ 07/12/18 21:00 08/09/18 08:59 07/12/18 20:23 Hydromorphone HCl (Dilaudid) 1 mg Q3H PRN IVP Severe Pain (Pain Scale 7-10) 07/12/18 19:15 07/17/18 19:14 07/14/18 12:29 Levetiracetam (Keppra) 500 mg Q12HR ORAL 07/12/18 21:00 08/10/18 20:59 07/14/18 09:56 Lorazepam (Ativan 2mg/ml 1ml) 0.5 mg Q4H PRN IV For Anxiety 07/12/18 18:00 07/17/18 17:59 Metoprolol Tartrate (Lopressor) 25 mg Q12HR ORAL 07/12/18 21:00 08/10/18 20:59 07/13/18 20:18 Mirtazapine (Remeron) 45 mg BEDTIME ORAL 07/12/18 21:00 08/11/18 20:59 07/13/18 20:17 Ondansetron HCl (Zofran) 4 mg Q6H PRN IVP Nausea & Vomiting 07/12/18 18:00 08/09/18 17:59 Polyethylene Glycol (Miralax) 17 gm HSPRN PRN ORAL Constipation 07/12/18 21:00 08/09/18 20:59 Ranolazine (Ranexa ER 500mg) 500 mg Q12HR ORAL 07/12/18 21:00 08/10/18 20:59 07/14/18 09:56 Zolpidem Tartrate (Ambien) 5 mg HSPRN PRN ORAL Insomnia 07/12/18 21:00 07/17/18 20:59 Jessie Magana MD Jul 14, 2018 14:24
[2018-07-14 16:01] VITALS: BP 134/69
--- NOTE | 2018-07-14 17:06 | Cardiac Electrophysiology PN ---
Assessment/Plan Assessment/Plan 1. Sinus tachycardia. No evidence of atrial fibrillation or SVT. Continue metoprolol 25 mg b.i.d. 2. Coronary artery disease with history of coronary artery bypass and two stents in LAD and circumflex. On Plavix, metoprolol, and Ranexa. 3. Hypertension, on Norvasc and metoprolol. 4. Seizures, on Keppra. 5. Foot ulcer. Subjective Subjective Feeling better. DC planning tomorrow Objective Last 24 Hour Vital Signs Date Time Temp Pulse Resp B/P (MAP) Pulse Ox O2 Delivery O2 Flow Rate FiO2 07/14/18 16:01 99.4 79 18 134/69 (90) 94 99.4 07/14/18 11:44 98.7 75 17 131/59 (83) 93 98.7 07/14/18 09:00 Room Air 07/14/18 09:00 74 107/56 07/14/18 09:00 74 107/56 07/14/18 08:00 99.5 72 18 132/60 (84) 96 99.5 07/14/18 04:00 98.1 69 18 123/64 (83) 94 98.1 07/13/18 23:55 98.2 75 18 145/74 (97) 93 98.2 07/13/18 23:20 76 16 98 Room Air 21 07/13/18 23:12 73 18 94 Room Air 21 07/13/18 21:00 Room Air 07/13/18 20:18 80 105/54 07/13/18 19:50 80 18 Room Air 21 07/13/18 19:15 97.5 80 18 103/54 (70) 96 97.5 07/13/18 17:27 98.1 Intake and Output 07/13/18 07/14/18 19:00 07:00 Intake Total 600 ml Output Total 850 ml Balance 600 ml -850 ml Other 600 ml Output Urine Total 850 ml # Voids 3 4 # Bowel Movements 1 Laboratory Tests Test 07/14/18 07:45 White Blood Count 7.4 K/UL (4.8-10.8) Red Blood Count 4.77 M/UL (4.70-6.10) Hemoglobin 12.0 G/DL (14.2-18.0) L Hematocrit 39.0 % (42.0-52.0) L Mean Corpuscular Volume 82 FL (80-99) Mean Corpuscular Hemoglobin 25.3 PG (27.0-31.0) L Mean Corpuscular Hemoglobin Concent 30.9 G/DL (32.0-36.0) L Red Cell Distribution Width 15.0 % (11.6-14.8) H Platelet Count 264 K/UL (150-450) Mean Platelet Volume 6.1 FL (6.5-10.1) L Neutrophils (%) (Auto) 55.5 % (45.0-75.0) Lymphocytes (%) (Auto) 24.7 % (20.0-45.0) Monocytes (%) (Auto) 16.4 % (1.0-10.0) H Eosinophils (%) (Auto) 2.0 % (0.0-3.0) Basophils (%) (Auto) 1.3 % (0.0-2.0) Sodium Level 139 MMOL/L (136-145) Potassium Level 4.7 MMOL/L (3.5-5.1) Chloride Level 105 MMOL/L (98-107) Carbon Dioxide Level 25 MMOL/L (21-32) Anion Gap 9 mmol/L (5-15) Blood Urea Nitrogen 18 mg/dL (7-18) Creatinine 1.5 MG/DL (0.55-1.30) H Estimat Glomerular Filtration Rate 56.4 mL/min (>60) Glucose Level 104 MG/DL (74-106) Calcium Level 8.8 MG/DL (8.5-10.1) Objective HEAD AND NECK: No JVD. LUNGS: Clear. CARDIOVASCULAR: Regular S1 and S2 with no gallop or murmur. CHEST: Sternotomy is intact. ABDOMEN: Soft. EXTREMITIES: Ulcer of the leg. Neal Ames MD Jul 14, 2018 17:06
--- NOTE | 2018-07-14 18:39 | Internal Med Progress Note ---
Subjective Date of Service: Jul 14, 2018 Physician Name Reyna,Shantanu Attending Physician Phil Wright MD Current Medications Medications (Trade) Dose Ordered Sig/Aminata Route PRN Reason Start Time Stop Time Status Last Admin Dose Admin Acetaminophen (Tylenol) 650 mg Q4H PRN ORAL fever 07/12/18 18:00 08/09/18 17:59 Al Hydroxide/Mg Hydroxide (Mylanta II) 30 ml Q6H PRN ORAL dyspepsia 07/12/18 18:00 08/09/18 17:59 Albuterol/ Ipratropium (Albuterol/ Ipratropium) 3 ml Q4H PRN HHN Shortness of Breath 07/12/18 18:00 07/16/18 17:59 07/13/18 23:09 Amlodipine Besylate (Norvasc) 5 mg DAILY ORAL 07/13/18 09:00 08/11/18 08:59 Clopidogrel Bisulfate (Plavix) 75 mg DAILY ORAL 07/13/18 09:00 08/11/18 08:59 07/14/18 09:56 Dextrose (Dextrose 50%) 25 ml STAT PRN IV Hypoglycemia 07/12/18 18:00 08/11/18 17:59 Dextrose (Dextrose 50%) 50 ml STAT PRN IV Hypoglycemia 07/12/18 18:00 08/11/18 17:59 Famotidine (Pepcid) 20 mg DAILY ORAL 07/13/18 09:00 08/11/18 08:59 07/14/18 09:56 Heparin Sodium (Porcine) (Heparin 5000 units/ml) 5,000 units EVERY 12 HOURS SUBQ 07/12/18 21:00 08/09/18 08:59 07/12/18 20:23 Hydromorphone HCl (Dilaudid) 1 mg Q3H PRN IVP Severe Pain (Pain Scale 7-10) 07/12/18 19:15 07/17/18 19:14 07/14/18 18:34 Levetiracetam (Keppra) 500 mg Q12HR ORAL 07/12/18 21:00 08/10/18 20:59 07/14/18 09:56 Lorazepam (Ativan 2mg/ml 1ml) 0.5 mg Q4H PRN IV For Anxiety 07/12/18 18:00 07/17/18 17:59 Metoprolol Tartrate (Lopressor) 25 mg Q12HR ORAL 07/12/18 21:00 08/10/18 20:59 07/13/18 20:18 Mirtazapine (Remeron) 45 mg BEDTIME ORAL 07/12/18 21:00 08/11/18 20:59 07/13/18 20:17 Ondansetron HCl (Zofran) 4 mg Q6H PRN IVP Nausea & Vomiting 07/12/18 18:00 08/09/18 17:59 Polyethylene Glycol (Miralax) 17 gm HSPRN PRN ORAL Constipation 07/12/18 21:00 08/09/18 20:59 Ranolazine (Ranexa ER 500mg) 500 mg Q12HR ORAL 07/12/18 21:00 08/10/18 20:59 07/14/18 09:56 Zolpidem Tartrate (Ambien) 5 mg HSPRN PRN ORAL Insomnia 07/12/18 21:00 07/17/18 20:59 Allergies: Coded Allergies: EGG (Verified Allergy, Unknown, 09/22/15) MEPERIDINE (Verified Allergy, Unknown, 12/21/10) NITROGLYCERIN (Verified Allergy, Unknown, hives, 02/18/17) ROS Limited/Unobtainable: No Constitutional: Reports: no symptoms HEENT: Reports: no symptoms Cardiovascular: Reports: no symptoms Respiratory: Reports: no symptoms Gastrointestinal/Abdominal: Reports: no symptoms Genitourinary: Reports: no symptoms 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: Reports: no symptoms Subjective 67 YO M admitted with chest pain. Cover for [facility] Nathalia Wright. Objective Last Vital Signs Date Time Temp Pulse Resp B/P (MAP) Pulse Ox O2 Delivery O2 Flow Rate FiO2 07/14/18 16:01 99.4 79 18 134/69 (90) 94 99.4 07/14/18 10:15 Room Air 21 Laboratory Tests Test 07/14/18 07:45 White Blood Count 7.4 K/UL (4.8-10.8) Red Blood Count 4.77 M/UL (4.70-6.10) Hemoglobin 12.0 G/DL (14.2-18.0) L Hematocrit 39.0 % (42.0-52.0) L Mean Corpuscular Volume 82 FL (80-99) Mean Corpuscular Hemoglobin 25.3 PG (27.0-31.0) L Mean Corpuscular Hemoglobin Concent 30.9 G/DL (32.0-36.0) L Red Cell Distribution Width 15.0 % (11.6-14.8) H Platelet Count 264 K/UL (150-450) Mean Platelet Volume 6.1 FL (6.5-10.1) L Neutrophils (%) (Auto) 55.5 % (45.0-75.0) Lymphocytes (%) (Auto) 24.7 % (20.0-45.0) Monocytes (%) (Auto) 16.4 % (1.0-10.0) H Eosinophils (%) (Auto) 2.0 % (0.0-3.0) Basophils (%) (Auto) 1.3 % (0.0-2.0) Sodium Level 139 MMOL/L (136-145) Potassium Level 4.7 MMOL/L (3.5-5.1) Chloride Level 105 MMOL/L (98-107) Carbon Dioxide Level 25 MMOL/L (21-32) Anion Gap 9 mmol/L (5-15) Blood Urea Nitrogen 18 mg/dL (7-18) Creatinine 1.5 MG/DL (0.55-1.30) H Estimat Glomerular Filtration Rate 56.4 mL/min (>60) Glucose Level 104 MG/DL (74-106) Calcium Level 8.8 MG/DL (8.5-10.1) Intake and Output 07/13/18 07/14/18 19:00 07:00 Intake Total 600 ml Output Total 850 ml Balance 600 ml -850 ml Other 600 ml Output Urine Total 850 ml # Voids 3 4 # Bowel Movements 1 Objective General Appearance: alert, mild distress, thin EENT: PERRL/EOMI, normal ENT inspection, TMs normal Neck: non-tender, normal alignment, supple, normal inspection Cardiovascular: normal peripheral pulses, normal rate, regular rhythm, no gallop/murmur, no JVD Respiratory/Chest: chest wall non-tender, lungs clear, normal breath sounds, no respiratory distress, no accessory muscle use Abdomen: normal bowel sounds, non tender, soft, no organomegaly, no mass Extremities: normal range of motion Neurologic: information broker II-XII grossly normal Skin: normal pigmentation, warm/dry Assessment/Plan Problem List: (1) HTN (hypertension) Assessment & Plan: Continue norvasc and lopressor (2) CAD (coronary artery disease) (3) Chest pain Assessment & Plan: Recent cardiac cath-see results from [facility] [place] in patient chart. See cardiology note. (4) COPD exacerbation (5) Seizure disorder Assessment & Plan: Continue Keppra Assessment/Plan Discharge planning: home with [facility] health Shantanu Reyna MD Jul 14, 2018 18:39
[2018-07-14 20:00] VITALS: BP 136/63
[2018-07-15] MEDS: HYDROmorphone 1mg/ml Carpuject IVP PRN ×3 (00:37→08:42)
[2018-07-15 01:00] VITALS: BP 134/65
[2018-07-15 04:00] VITALS: BP 157/76
--- NOTE | 2018-07-15 07:57 | General Progress Note ---
Assessment/Plan Assessment/Plan (1) Opioid dependency (2) Pain of right lower extremity (3) Osteomyelitis of right lower extremity (4) Nonhealing ulcer of right lower extremity (5) DM (diabetes mellitus) Pt continued on Dilaudid. Pt was d/w Dr. Rivers and he concurred. Subjective Date patient seen: Jul 15, 2018 Time patient seen: 07:15 - am Allergies: Coded Allergies: EGG (Verified Allergy, Unknown, 09/22/15) MEPERIDINE (Verified Allergy, Unknown, 12/21/10) NITROGLYCERIN (Verified Allergy, Unknown, hives, 02/18/17) Subjective Constitutional: Denies: chills, diaphoresis, fever, malaise, no symptoms, other , weakness HEENT: Denies: blurred vision, double vision, ear discharge, ear pain, eye pain , mouth pain, mouth swelling, no symptoms, nose congestion, nose pain, other, tearing, throat pain, throat swelling Cardiovascular: Denies: chest pain, edema, irregular heart rate, lightheadedness, no symptoms, other, palpitations, syncope Respiratory: Denies: SOB at rest, SOB with excertion, cough, no symptoms, orthopnea, other, shortness of breath, sputum, stridor, wheezing Gastrointestinal/Abdominal: Denies: abdomen distended, abdominal pain, black stools, blood in stool, constipated, diarrhea, difficulty swallowing, nausea, no symptoms, other, poor appetite, poor fluid intake, rectal bleeding, tarry stools, vomiting Genitourinary: Denies: burning, discharge, flank pain, frequency, hematuria, incontinence, no symptoms, other, pain, urgency 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: Denies: anxiety, depressed, emotional problems, headache, no symptoms, numbness, other, paresthesia, pre-existing deficit, seizure, tingling, tremors, weakness Endocrine: Denies: excessive sweating, flushing, increased hunger, increased thirst, increased urine, intolerance to cold, intolerance to heat, no symptoms, other, unexplained weight gain, unexplained weight loss Hematologic/Lymphatic: Denies: anemia, easy bleeding, easy bruising, no symptoms, other Subjective Pt is in bed showing no signs of pain or distress. Objective Last 24 Hour Vital Signs Date Time Temp Pulse Resp B/P (MAP) Pulse Ox O2 Delivery O2 Flow Rate FiO2 07/15/18 04:23 100.5 07/15/18 04:00 97.9 74 17 157/76 (103) 97 97.9 07/15/18 01:00 98.5 73 19 134/65 (88) 97 98.5 07/15/18 00:37 100.5 07/14/18 22:33 98.5 07/14/18 21:49 76 16 Room Air 21 07/14/18 21:35 100.5 07/14/18 21:34 78 136/63 07/14/18 21:34 100.5 07/14/18 21:00 Room Air 07/14/18 20:00 100.5 78 18 136/63 (87) 96 100.5 07/14/18 16:01 99.4 79 18 134/69 (90) 94 99.4 07/14/18 11:44 98.7 75 17 131/59 (83) 93 98.7 07/14/18 10:15 79 18 Room Air 21 07/14/18 09:00 Room Air 07/14/18 09:00 74 107/56 07/14/18 09:00 74 107/56 07/14/18 08:00 99.5 72 18 132/60 (84) 96 99.5 Intake and Output 07/14/18 07/15/18 19:00 07:00 Intake Total 600 ml 480 ml Balance 600 ml 480 ml Intake Oral 480 ml Other 600 ml # Voids 3 2 Height (Feet): 6 Height (Inches): 1.00 Weight (Pounds): 138 Objective General Appearance: no apparent distress, alert EENT: PERRL/EOMI, normal ENT inspection Neck: non-tender, normal alignment Cardiovascular: normal rate, regular rhythm Respiratory/Chest: lungs clear, normal breath sounds Abdomen: non tender, soft Extremities: other - wound RLE lateral with dressing C/D/I Edema: trace edema Neurologic: alert, oriented x 3 Rafita Zuñiga Jul 15, 2018 07:57
[2018-07-15 08:00] VITALS: BP 142/70
[2018-07-15 08:39] LABS: BASOPHILS % (AUTO) 1.6 % (0.0-2.0); EOSINOPHILS % (AUTO) 2.8 % (0.0-3.0); HEMATOCRIT 39.9 % (42.0-52.0); HEMOGLOBIN 12.6 G/DL (14.2-18.0); LYMPHOCYTES % (AUTO) 23.2 % (20.0-45.0); MEAN CORPUSCULAR VOLUME 82 FL (80-99); MONOCYTES % (AUTO) 10.5 % (1.0-10.0); NEUTROPHILS % (AUTO) 61.9 % (45.0-75.0); PLATELET COUNT 272 K/UL (150-450); RED BLOOD COUNT 4.85 M/UL (4.70-6.10); RED CELL DISTRIBUTION WIDTH 15.4 % (11.6-14.8); WHITE BLOOD COUNT 7.1 K/UL (4.8-10.8)
[2018-07-15] MEDS: Ranolazine 500mg tab ORAL SCH (08:41)
[2018-07-15] MEDS: Heparin 5000 units/ml inj SUBQ SCH (08:43)
[2018-07-15 08:49] LABS: ANION GAP 8 mmol/L (5-15); BLOOD UREA NITROGEN 20 mg/dL (7-18); CALCIUM 8.6 MG/DL (8.5-10.1); CARBON DIOXIDE 27 MMOL/L (21-32); CHLORIDE 103 MMOL/L (98-107); CREATININE 1.6 MG/DL (0.55-1.30); POTASSIUM 4.7 MMOL/L (3.5-5.1); SODIUM 138 MMOL/L (136-145)
[2018-07-15] MEDS: Metoprolol 25mg tab ORAL SCH (09:00)
--- NOTE | 2018-07-15 09:20 | Internal Med Progress Note ---
Subjective Date of Service: Jul 15, 2018 Physician Name Shantanu Reyna Attending Physician Phil Wright MD Current Medications Medications (Trade) Dose Ordered Sig/Aminata Route PRN Reason Start Time Stop Time Status Last Admin Dose Admin Acetaminophen (Tylenol) 650 mg Q4H PRN ORAL fever 07/12/18 18:00 08/09/18 17:59 07/14/18 21:34 Al Hydroxide/Mg Hydroxide (Mylanta II) 30 ml Q6H PRN ORAL dyspepsia 07/12/18 18:00 08/09/18 17:59 Albuterol/ Ipratropium (Albuterol/ Ipratropium) 3 ml Q4H PRN HHN Shortness of Breath 07/12/18 18:00 07/16/18 17:59 07/13/18 23:09 Amlodipine Besylate (Norvasc) 5 mg DAILY ORAL 07/13/18 09:00 08/11/18 08:59 Clopidogrel Bisulfate (Plavix) 75 mg DAILY ORAL 07/13/18 09:00 08/11/18 08:59 07/15/18 08:41 Dextrose (Dextrose 50%) 25 ml STAT PRN IV Hypoglycemia 07/12/18 18:00 08/11/18 17:59 Dextrose (Dextrose 50%) 50 ml STAT PRN IV Hypoglycemia 07/12/18 18:00 08/11/18 17:59 Famotidine (Pepcid) 20 mg DAILY ORAL 07/13/18 09:00 08/11/18 08:59 07/15/18 08:41 Heparin Sodium (Porcine) (Heparin 5000 units/ml) 5,000 units EVERY 12 HOURS SUBQ 07/12/18 21:00 08/09/18 08:59 07/12/18 20:23 Hydromorphone HCl (Dilaudid) 1 mg Q3H PRN IVP Severe Pain (Pain Scale 7-10) 07/12/18 19:15 07/17/18 19:14 07/15/18 03:42 Levetiracetam (Keppra) 500 mg Q12HR ORAL 07/12/18 21:00 08/10/18 20:59 07/15/18 08:41 Lorazepam (Ativan 2mg/ml 1ml) 0.5 mg Q4H PRN IV For Anxiety 07/12/18 18:00 07/17/18 17:59 Metoprolol Tartrate (Lopressor) 25 mg Q12HR ORAL 07/12/18 21:00 08/10/18 20:59 07/14/18 21:34 Mirtazapine (Remeron) 45 mg BEDTIME ORAL 07/12/18 21:00 08/11/18 20:59 07/14/18 21:34 Ondansetron HCl (Zofran) 4 mg Q6H PRN IVP Nausea & Vomiting 07/12/18 18:00 08/09/18 17:59 Polyethylene Glycol (Miralax) 17 gm HSPRN PRN ORAL Constipation 07/12/18 21:00 08/09/18 20:59 Ranolazine (Ranexa ER 500mg) 500 mg Q12HR ORAL 07/12/18 21:00 08/10/18 20:59 07/15/18 08:41 Zolpidem Tartrate (Ambien) 5 mg HSPRN PRN ORAL Insomnia 07/12/18 21:00 07/17/18 20:59 Allergies: Coded Allergies: EGG (Verified Allergy, Unknown, 09/22/15) MEPERIDINE (Verified Allergy, Unknown, 12/21/10) NITROGLYCERIN (Verified Allergy, Unknown, hives, 02/18/17) ROS Limited/Unobtainable: No Constitutional: Reports: no symptoms HEENT: Reports: no symptoms Cardiovascular: Reports: no symptoms Respiratory: Reports: no symptoms Gastrointestinal/Abdominal: Reports: no symptoms Genitourinary: Reports: no symptoms 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: Reports: no symptoms Subjective 67 YO M admitted with chest pain. Cover for [facility] Med-Dr Wright. Await discharge today Objective Last Vital Signs Date Time Temp Pulse Resp B/P (MAP) Pulse Ox O2 Delivery O2 Flow Rate FiO2 07/15/18 09:00 Room Air 07/15/18 08:00 96.6 74 20 142/70 (94) 97 96.6 07/14/18 21:49 21 Laboratory Tests Test 07/15/18 08:10 White Blood Count 7.1 K/UL (4.8-10.8) Red Blood Count 4.85 M/UL (4.70-6.10) Hemoglobin 12.6 G/DL (14.2-18.0) L Hematocrit 39.9 % (42.0-52.0) L Mean Corpuscular Volume 82 FL (80-99) Mean Corpuscular Hemoglobin 25.9 PG (27.0-31.0) L Mean Corpuscular Hemoglobin Concent 31.5 G/DL (32.0-36.0) L Red Cell Distribution Width 15.4 % (11.6-14.8) H Platelet Count 272 K/UL (150-450) Mean Platelet Volume 6.9 FL (6.5-10.1) Neutrophils (%) (Auto) 61.9 % (45.0-75.0) Lymphocytes (%) (Auto) 23.2 % (20.0-45.0) Monocytes (%) (Auto) 10.5 % (1.0-10.0) H Eosinophils (%) (Auto) 2.8 % (0.0-3.0) Basophils (%) (Auto) 1.6 % (0.0-2.0) Sodium Level 138 MMOL/L (136-145) Potassium Level 4.7 MMOL/L (3.5-5.1) Chloride Level 103 MMOL/L (98-107) Carbon Dioxide Level 27 MMOL/L (21-32) Anion Gap 8 mmol/L (5-15) Blood Urea Nitrogen 20 mg/dL (7-18) H Creatinine 1.6 MG/DL (0.55-1.30) H Estimat Glomerular Filtration Rate 52.4 mL/min (>60) Glucose Level 110 MG/DL (74-106) H Calcium Level 8.6 MG/DL (8.5-10.1) Intake and Output 07/14/18 07/15/18 19:00 07:00 Intake Total 600 ml 480 ml Balance 600 ml 480 ml Intake Oral 480 ml Other 600 ml # Voids 3 2 Objective General Appearance: alert, mild distress, thin EENT: PERRL/EOMI, normal ENT inspection, TMs normal Neck: non-tender, normal alignment, supple, normal inspection Cardiovascular: normal peripheral pulses, normal rate, regular rhythm, no gallop/murmur, no JVD Respiratory/Chest: chest wall non-tender, lungs clear, normal breath sounds, no respiratory distress, no accessory muscle use Abdomen: normal bowel sounds, non tender, soft, no organomegaly, no mass Extremities: normal range of motion Neurologic: investment broker II-XII grossly normal Skin: normal pigmentation, warm/dry Assessment/Plan Problem List: (1) HTN (hypertension) Assessment & Plan: Continue norvasc and lopressor (2) CAD (coronary artery disease) (3) Chest pain Assessment & Plan: Recent cardiac cath-see results from [facility] [place] in patient chart. See cardiology note. (4) COPD exacerbation (5) Seizure disorder Assessment & Plan: Continue Keppra Assessment/Plan Discharge home toeay with [facility] Shantanu Reyna MD Jul 15, 2018 09:20
[2018-07-15] MEDS ORDERED: HYDROMORPHONE HC4 M1 PO (10:01)
[2018-07-15 10:26] VITALS: BP 134/67
--- NOTE | 2018-07-16 14:03 | Discharge Summary ---
Discharge Summary Discharge Summary _ DATE OF ADMISSION: 07/10/2018 DATE OF DISCHARGE: 07/15/2018 CONSULTANTS: Dr. Rachael Rivers BRIEF HOSPITAL COURSE: Patient is a 67-year-old -[place] male, who presented with chief complaint of chest pain. The patient has a history of chronic chest pain and was admitted to [facility] from 06/19/2018 to 06/23/2018. He was discharged to [facility] for cardiac catheterization. Patient stated he ran out of his pain medications and had been unable to refill his meds. He began to experience chest pain on 07/09/2018. He felt a pop in his chest and had shortness of breath with nausea and vomiting. He then presented to emergency room complaining of chest pain. He has medical history significant for coronary artery disease status post angioplasty with stenting 2 , hypertension, COPD, and seizure disorder. On evaluation at ED, he was noted to be tachycardic. EKG showed sinus tachycardia with peaked T waves and mild diffuse ST depression. Due to his risk factors he was admitted for evaluation of acute coronary syndrome. He underwent cardiac evaluation. He was given antianginal therapy. He was placed on Ranexa 500 mg twice a day, amlodipine, metoprolol, and Plavix. Results from recent cardiac catheterization was obtained. Patient underwent cardiac catheterization by Dr. Tatum and underwent percutaneous angioplasty of the LAD as well as circumflex. He was seen by pain management and was given Dilaudid. Blood pressure was controlled with He came in with a nonhealing ulcer to the right leg. He was given wound care. Patient was exhibiting depressed mood with low appetite and anhedonia. There was no suicidal ideation or intent. He was given Remeron. He had episodes of sinus tachycardia which resolved. There was no evidence of atrial fibrillation or SVT. Cardiac troponins were negative. No indication for further workup given recent catheterization. He was then cleared for discharge home. FINAL DIAGNOSES: Coronary artery disease Hypertension COPD exacerbation Seizure disorder Opioid dependency History of right lower extremity osteomyelitis Nonhealing ulcer on the right lower extremity, present on admission Diabetes mellitus Sinus tachycardia Lung emphysema DISPOSITION: Patient was discharged home with home health. DISCHARGE MEDICATIONS: Refer to Discharge Medication List. DISCHARGE INSTRUCTIONS: Follow up within a week. I have been assigned to dictate discharge summary on this account, and I was not involved in the patient's management. Torie Henderson NP Jul 16, 2018 14:03
--- NOTE | 2018-07-17 00:56 | Cardiology Report ---
APPROVED REPORT EKG Measurement Heart [id number] VT [id number] Sinus tachycardia Biatrial enlargement Anterior infarct, age undetermined Abnormal ECG
== END 2018-07-15 11:00 | disposition home health service (06) | DRG 198 ==
LOC: EMR 22:51 → 2E 07-10 01:46 → EDBEDREQ 07-10 02:06 → 4E 07-12 18:00
DX: I25.119 Atherosclerotic heart disease of native coronary artery with unspecified angina pectoris (principal); E46 Unspecified protein-calorie malnutrition; I24.9 Acute ischemic heart disease, unspecified; L89.510 Pressure ulcer of right ankle, unstageable; B02.9 Zoster without complications; J44.1 Chronic obstructive pulmonary disease with (acute) exacerbation; F11.20 Opioid dependence, uncomplicated; R00.0 Tachycardia, unspecified; I10 Essential (primary) hypertension; Z95.1 Presence of aortocoronary bypass graft; Z88.8 Allergy status to other drugs, medicaments and biological substances; E11.9 Type 2 diabetes mellitus without complications; E03.9 Hypothyroidism, unspecified; G40.909 Epilepsy, unspecified, not intractable, without status epilepticus; F32.9 Major depressive disorder, single episode, unspecified; F41.9 Anxiety disorder, unspecified; I25.10 Atherosclerotic heart disease of native coronary artery without angina pectoris; Z95.5 Presence of coronary angioplasty implant and graft; M86.8X6 Other osteomyelitis, lower leg; I25.2 Old myocardial infarction; Z79.02 Long term (current) use of antithrombotics/antiplatelets; Z68.1 Body mass index [BMI] 19.9 or less, adult
CPT/HCPCS: 36415; 71045; 80048; 80053; 80061; 80299; 82550; 82553; 83690; 83880; 84443; 84484; 85025; 93005; 94640; 94664; J7620

== ENCOUNTER 2018-08-02 21:48 | Emergency (ER) | payer MEDICARE, MEDICAID ==
[~2018-08-02] VITALS: Ht 185.4 cm; Wt 59.0 kg
[~2018-08-02 21:48] MED LIST changes: +HYDROMORPHONE HC4 M1 PO; +OXYCODONE-ACET1 EAC5 ORAL
--- NOTE | 2018-08-02 22:09 | Emergency Room Report ---
History of Present Illness General Chief Complaint: Dyspnea/Respdistress Present Illness HPI Mr. Ring is 67 yo male with hx of COPD, CHF, CAD, chest pain, esophagitis, hypothyroidism, who presents with "chronic" chest pain and dyspnea. He has had feet swelling and poor appetite. +diarrhea. No abdominal pain. Recently ballon angioplasty one month ago. Has hx of cardiac stents. hx of CABG. Pain in chest in central nondescript, constant. No change with exertion or movement. Allergies: Coded Allergies: EGG (Verified Allergy, Unknown, 09/22/15) MEPERIDINE (Verified Allergy, Unknown, 12/21/10) NITROGLYCERIN (Verified Allergy, Unknown, hives, 02/18/17) Patient History Past Medical History: see triage record, old chart reviewed Social History: Reports: smoking; Denies: alcohol use, drug use Social History Narrative lives with and family members Reviewed Nursing Documentation: PMH: Agreed; PSxH: Agreed Nursing Documentation-PMH Hx Cardiac Problems: Yes Hx Hypertension: Yes Hx Pacemaker: No Hx Asthma: No Hx COPD: Yes Hx Diabetes: No Hx Cancer: No Hx Gastrointestinal Problems: Yes - Stomach Ulcer, Hep C Hx Dialysis: No - kidney problems Hx Neurological Problems: Yes - Seizures, HTN, Weakness Hx Cerebrovascular Accident: No Hx Transient Ischemic Attacks: No Hx Alzheimer's Disease: No Hx Encephalitis: No Hx Seizures: Yes Hx Epilepsy: No Hx Multiple Sclerosis: No Hx Cerebral Palsy: No Hx Amyotrophic Lat Sclerosis: No Hx Guillian-[place] Syndrome: No Hx Paralysis: No Hx Peripheral Neuropathy: No Hx Spinal Cord Injury: No Hx Head Trauma: No Hx Traumatic Brain Injury: No Hx Memory Loss: No Hx Concentration Difficulty: No Hx Speech Problem: No Hx Tremors: Yes Hx Vertigo: No Hx Dizziness: No Hx Syncope: Yes Hx Headaches: Yes Hx Aphasia: No Hx Dysphasia: Yes Hx Numbness: No Hx Weakness: Yes Hx Fatigue: No Hx Neurologic Surgery: No Hx Brain Shunt: No Review of Systems Constitutional: Denies: malaise Respiratory: Reports: shortness of breath Cardiovascular: Reports: chest pain All Other Systems: negative except mentioned in HPI Physical Exam Vital Signs Date Time Temp Pulse Resp B/P (MAP) Pulse Ox O2 Delivery O2 Flow Rate FiO2 08/02/18 21:55 98.0 93 17 142/80 99 Room Air 98.1 Sp02 EP Interpretation: reviewed, normal General Appearance: no apparent distress, alert, GCS 15, non-toxic, other - pleasant articulate talkative appears comfortable Head: normocephalic, atraumatic Eyes: bilateral eye normal inspection ENT: hearing grossly normal, no angioedema, normal voice, moist mucus membranes , other - poor dentitiation Neck: full range of motion, supple/symm/no masses Respiratory: chest non-tender, lungs clear, normal breath sounds, no rhonchi, no respiratory distress, no retraction, no accessory muscle use, speaking full sentences Cardiovascular #1: regular rate, rhythm, no murmur, no rub, other - pedal, edema Gastrointestinal: normal bowel sounds, non tender, soft, non-distended, no guarding, no rebound Genitourinary: normal inspection Neurologic: alert, oriented x3, responsive, motor strength/tone normal, sensory intact, speech normal Psychiatric: judgement/insight normal, memory normal, mood/affect normal, no suicidal/homicidal ideation Skin: normal color, no rash, warm/dry, well hydrated Medical Decision Making Diagnostic Impression: Primary Impression: Recurrent chest pain ER Course Mr. Ring presents with chronic chest pain without indication of ACS PE dissection or PTX normal troponin, no acute changes on EKG I provided PO percocet. Patient demanded IV analgesia which I declined dc'd home in good condition I personally reviewed portable AP CXR Hyperinflation with lung scarring no pneumothorax no infiltrate +sternotomy wires present Labs Test 08/02/18 23:05 White Blood Count 9.7 K/UL (4.8-10.8) Red Blood Count 6.48 M/UL (4.70-6.10) Hemoglobin 16.5 G/DL (14.2-18.0) Hematocrit 53.1 % (42.0-52.0) Mean Corpuscular Volume 82 FL (80-99) Mean Corpuscular Hemoglobin 25.4 PG (27.0-31.0) Mean Corpuscular Hemoglobin Concent 31.1 G/DL (32.0-36.0) Red Cell Distribution Width 16.1 % (11.6-14.8) Platelet Count 421 K/UL (150-450) Mean Platelet Volume 5.9 FL (6.5-10.1) Neutrophils (%) (Auto) 53.6 % (45.0-75.0) Lymphocytes (%) (Auto) 37.1 % (20.0-45.0) Monocytes (%) (Auto) 5.7 % (1.0-10.0) Eosinophils (%) (Auto) 2.3 % (0.0-3.0) Basophils (%) (Auto) 1.4 % (0.0-2.0) Sodium Level 135 MMOL/L (136-145) Potassium Level 5.0 MMOL/L (3.5-5.1) Chloride Level 103 MMOL/L (98-107) Carbon Dioxide Level 24 MMOL/L (21-32) Anion Gap 9 mmol/L (5-15) Blood Urea Nitrogen 21 mg/dL (7-18) Creatinine 1.5 MG/DL (0.55-1.30) Estimat Glomerular Filtration Rate 56.4 mL/min (>60) Glucose Level 104 MG/DL (74-106) Calcium Level 9.2 MG/DL (8.5-10.1) Total Bilirubin 0.3 MG/DL (0.2-1.0) Aspartate Amino Transf (AST/SGOT) 21 U/L (15-37) Alanine Aminotransferase (ALT/SGPT) 16 U/L (12-78) Alkaline Phosphatase 147 U/L (46-116) Troponin I 0.000 ng/mL (0.000-0.056) Total Protein 8.7 G/DL (6.4-8.2) Albumin 3.7 G/DL (3.4-5.0) Globulin 5.0 g/dL Albumin/Globulin Ratio 0.7 (1.0-2.7) Lab Results Impression labs WNL nl trop neg trop EKG Diagnostic Results Rate: normal Rhythm: NSR ST Segments: no acute changes Other Impression reate 90 bpm nl axis nl intervals no ST elevation T waves with imcreased amplitude Last Vital Signs Date Time Temp Pulse Resp B/P (MAP) Pulse Ox O2 Delivery O2 Flow Rate FiO2 08/02/18 21:55 98.0 93 17 142/80 99 Room Air 98.1 Disposition: HOME, SELF-CARE Condition: Stable Milly De La Garza MD Aug 02, 2018 22:09
[2018-08-02] MEDS ORDERED: Albuterol/Ipratropium 3ml neb HHN ONE (22:45)
[2018-08-02 23:00] VITALS: BP 141/78
[2018-08-02 23:22] LABS: BASOPHILS % (AUTO) 1.4 % (0.0-2.0); EOSINOPHILS % (AUTO) 2.3 % (0.0-3.0); HEMATOCRIT 53.1 % (42.0-52.0); HEMOGLOBIN 16.5 G/DL (14.2-18.0); LYMPHOCYTES % (AUTO) 37.1 % (20.0-45.0); MEAN CORPUSCULAR VOLUME 82 FL (80-99); MONOCYTES % (AUTO) 5.7 % (1.0-10.0); NEUTROPHILS % (AUTO) 53.6 % (45.0-75.0); PLATELET COUNT 421 K/UL (150-450); RED BLOOD COUNT 6.48 M/UL (4.70-6.10); RED CELL DISTRIBUTION WIDTH 16.1 % (11.6-14.8); WHITE BLOOD COUNT 9.7 K/UL (4.8-10.8)
[2018-08-02 23:41] LABS: ANION GAP 9 mmol/L (5-15); BLOOD UREA NITROGEN 21 mg/dL (7-18); CALCIUM 9.2 MG/DL (8.5-10.1); CARBON DIOXIDE 24 MMOL/L (21-32); CHLORIDE 103 MMOL/L (98-107); CREATININE 1.5 MG/DL (0.55-1.30); SODIUM 135 MMOL/L (136-145)
[2018-08-02 23:46] LABS: ALANINE AMINOTRANSFERASE 16 U/L (12-78); ALBUMIN 3.7 G/DL (3.4-5.0); ALBUMIN/GLOBULIN RATIO 0.7 (1.0-2.7); ALKALINE PHOSPHATASE 147 U/L (46-116); ASPARTATE AMINO TRANSFERASE 21 U/L (15-37); BILIRUBIN,TOTAL 0.3 MG/DL (0.2-1.0)
[2018-08-03 00:40] VITALS: BP 140/76
--- NOTE | 2018-08-03 10:00 | Diagnostic Imaging Report ---
Indication: Shortness of breath Technique: One view of the chest Comparison: 07/09/2018 Findings: Lungs are hyperinflated. Heart size is normal. Prior CABG. Old healed fracture deformity of the left shoulder noted. No significant change Impression: Hyperinflation, consistent with COPD No acute process
--- NOTE | 2018-08-04 21:26 | Cardiology Report ---
APPROVED REPORT EKG Measurement Heart [id number] [place] 132P91 [id number] Normal sinus rhythm Biatrial enlargement Abnormal ECG
== END 2018-08-03 00:40 | disposition home or self-care (01) ==
LOC: EMR 23:37
DX: R07.9 Chest pain, unspecified (principal); I11.0 Hypertensive heart disease with heart failure; I50.9 Heart failure, unspecified; J44.9 Chronic obstructive pulmonary disease, unspecified
CPT/HCPCS: 36415; 71045; 80053; 84484; 85025; 93005; 94640; 94664; 99284; J7620

== ENCOUNTER 2018-08-17 17:03 | Inpatient (IN) | payer MEDICARE, MEDICAID ==
[~2018-08-17] VITALS: Ht 185.4 cm; Wt 59.0 kg
[2018-08-17 17:16] VITALS: BP 163/92
--- NOTE | 2018-08-17 17:22 | Emergency Room Report ---
History of Present Illness General Chief Complaint: Chest Pain Source: Patient, Medical Record Present Illness HPI Patient presents with chest pain. It substernal. In addition to that he has some sternotomy wires are starting to poke through his chest. He also has a productive cough with yellow phlegm without blood. He's had fevers and chills. He's been nauseated without vomiting. He's been passing black stools. Pain rated 8/10, pressure and sharp, radiates to shoulders. Patient had elevated troponin "heart attack" in February this year. S/P cardiac cath. He states this pain is the same. H/O hepatitis C. He has been loosing weight. He is depressed about his illnesses. C/O L ankle pain, constant and burning. Allergies: Coded Allergies: EGG (Verified Allergy, Unknown, 08/17/18) MEPERIDINE (Verified Allergy, Unknown, 08/17/18) NITROGLYCERIN (Verified Allergy, Unknown, hives, 08/17/18) Patient History Past Medical History: see triage record Past Surgical History: other - cardiac cath Social History: Reports: smoking - prior Social History Narrative with family Reviewed Nursing Documentation: PMH: Agreed; PSxH: Agreed Nursing Documentation-PMH Past Medical History: No History, Except For Hx Cardiac Problems: Yes Hx Hypertension: Yes Hx Pacemaker: No Hx Asthma: No Hx COPD: Yes Hx Diabetes: No Hx Cancer: No Hx Gastrointestinal Problems: Yes - Stomach Ulcer, Hep C Hx Dialysis: No - kidney problems Hx Neurological Problems: Yes - Seizures, HTN, Weakness Hx Cerebrovascular Accident: No Hx Transient Ischemic Attacks: No Hx Alzheimer's Disease: No Hx Encephalitis: No Hx Seizures: Yes Hx Epilepsy: No Hx Multiple Sclerosis: No Hx Cerebral Palsy: No Hx Amyotrophic Lat Sclerosis: No Hx Gu[place] Syndrome: No Hx Paralysis: No Hx Peripheral Neuropathy: No Hx Spinal Cord Injury: No Hx Head Trauma: No Hx Traumatic Brain Injury: No Hx Memory Loss: No Hx Concentration Difficulty: No Hx Speech Problem: No Hx Tremors: Yes Hx Vertigo: No Hx Dizziness: No Hx Syncope: Yes Hx Headaches: Yes Hx Aphasia: No Hx Dysphasia: Yes Hx Numbness: No Hx Weakness: Yes Hx Fatigue: No Hx Neurologic Surgery: No Hx Brain Shunt: No Review of Systems All Other Systems: negative except mentioned in HPI Physical Exam Vital Signs Date Time Temp Pulse Resp B/P (MAP) Pulse Ox O2 Delivery O2 Flow Rate FiO2 08/17/18 17:06 97.7 94 16 163/92 96 Room Air 97.7 Sp02 EP Interpretation: reviewed, normal General Appearance: cachetic, thin, Chronically Ill Head: normocephalic Eyes: bilateral eye normal inspection, bilateral eye PERRL ENT: moist mucus membranes Neck: supple Respiratory: lungs clear, normal breath sounds Cardiovascular #1: regular rate, rhythm Cardiovascular #2: 2+ radial (R) Gastrointestinal: normal inspection, normal bowel sounds, non tender, no mass, non-distended Musculoskeletal: back normal, gait/station normal, normal range of motion Neurologic: alert, oriented x3, grossly normal Psychiatric: depressed affect Skin: warm/dry, other - sternotomy wires poking through near sternum Medical Decision Making Diagnostic Impression: Primary Impression: ACS (acute coronary syndrome) Additional Impressions: Marasmus COPD exacerbation ER Course Patient presents with chest pain. Differential includes acute myocardial infarction, acute coronary syndrome, pneumonia, exacerbation of COPD. In addition to that he states he has melena which he might have a GI bleed. Treated with pantoprazole, zofran and dilaudid. EKG without injury. CXR no infiltrates. Labs with normal WBC, CMP, troponin. Elevated lactate. Still with pain, dilaudid repeated. Due to previous NE and cardiac risk factors, admit tele, Dr. Wright. Improved with treatment. Laboratory Tests Test 08/17/18 17:30 08/17/18 18:10 White Blood Count 8.1 K/UL (4.8-10.8) Red Blood Count 5.55 M/UL (4.70-6.10) Hemoglobin 14.1 G/DL (14.2-18.0) L Hematocrit 45.8 % (42.0-52.0) Mean Corpuscular Volume 82 FL (80-99) Mean Corpuscular Hemoglobin 25.4 PG (27.0-31.0) L Mean Corpuscular Hemoglobin Concent 30.8 G/DL (32.0-36.0) L Red Cell Distribution Width 16.4 % (11.6-14.8) H Platelet Count 310 K/UL (150-450) Mean Platelet Volume 6.2 FL (6.5-10.1) L Neutrophils (%) (Auto) 57.1 % (45.0-75.0) Lymphocytes (%) (Auto) 31.6 % (20.0-45.0) Monocytes (%) (Auto) 7.2 % (1.0-10.0) Eosinophils (%) (Auto) 2.3 % (0.0-3.0) Basophils (%) (Auto) 1.8 % (0.0-2.0) Prothrombin Time 10.6 SEC (9.30-11.50) Prothrombin Time INR 1.0 (0.9-1.1) PTT 28 SEC (23-33) Sodium Level 141 MMOL/L (136-145) Potassium Level 4.1 MMOL/L (3.5-5.1) Chloride Level 106 MMOL/L (98-107) Carbon Dioxide Level 25 MMOL/L (21-32) Anion Gap 10 mmol/L (5-15) Blood Urea Nitrogen 18 mg/dL (7-18) Creatinine 1.1 MG/DL (0.55-1.30) Estimate Glomerular Filtration Rate > 60 mL/min (>60) Glucose Level 92 MG/DL (74-106) Lactic Acid Level 2.30 mmol/L (0.4-2.0) H Calcium Level 8.9 MG/DL (8.5-10.1) Total Bilirubin 0.3 MG/DL (0.2-1.0) Aspartate Amino Transferase (AST) 21 U/L (15-37) Alanine Aminotransferase (ALT) 20 U/L (12-78) Alkaline Phosphatase 111 U/L (46-116) Total Creatine Kinase 79 U/L (26-308) Troponin I 0.017 ng/mL (0.000-0.056) Pro-B-Type Natriuretic Peptide 1316 pg/mL (0-125) H Total Protein 7.7 G/DL (6.4-8.2) Albumin 3.6 G/DL (3.4-5.0) Globulin 4.1 g/dL Albumin/Globulin Ratio 0.9 (1.0-2.7) L Urine Color Pale yellow Urine Appearance Clear Urine pH 6.5 (4.5-8.0) Urine Specific [place] 1.010 (1.005-1.035) Urine Protein 2+ (NEGATIVE) H Urine Glucose (UA) Negative (NEGATIVE) Urine Ketones Negative (NEGATIVE) Urine Blood 1+ (NEGATIVE) H Urine Nitrite Negative (NEGATIVE) Urine Bilirubin Negative (NEGATIVE) Urine Urobilinogen Normal MG/DL (0.0-1.0) Urine Leukocyte Esterase Negative (NEGATIVE) Urine RBC 2-4 /HPF (0 - 0) H Urine WBC 0-2 /HPF (0 - 0) Urine Squamous Epithelial Cells Occasional /LPF Urine Bacteria Occasional /HPF (NONE) Urine Opiates Screen Positive (NEGATIVE) H Urine Barbiturates Screen Negative (NEGATIVE) Phencyclidine (PCP) Screen Negative (NEGATIVE) Urine Amphetamines Screen Negative (NEGATIVE) Urine Benzodiazepines Screen Negative (NEGATIVE) Urine Cocaine Screen Negative (NEGATIVE) Urine Marijuana (THC) Screen Negative (NEGATIVE) EKG Diagnostic Results Rate: normal Rhythm: NSR ST Segments: no acute changes Rhythm Strip Diag. Results EP Interpretation: yes Rhythm: NSR, other - rate 84, PACs Chest X-Ray Diagnostic Results Chest X-Ray Diagnostic Results : Chest X-Ray Ordered: Yes # of Views/Limited/Complete: 1 View Indication: Chest Pain Interpretation: no consolidation, no effusion, no pneumothorax, other Impression: Other Electronically Signed by: Adonis Buitrago MD Last Vital Signs Date Time Temp Pulse Resp B/P (MAP) Pulse Ox O2 Delivery O2 Flow Rate FiO2 08/17/18 17:06 97.7 94 16 163/92 96 Room Air 97.7 Status: improved Disposition: ADMITTED INPATIENT Condition: Serious Adonis Buitrago M.D. Aug 17, 2018 17:22
[2018-08-17] MEDS ORDERED: Ipratropium 0.02% Inh Soln 2.5ml UD HHN ONE (17:30)
[2018-08-17] MEDS ORDERED: Hydromorphone 0.5mg/0.5ml inj IVP ONE (17:30)
[2018-08-17] MEDS ORDERED: Solu-MEDROL 125mg Inj IVP ONE (17:30)
[2018-08-17] MEDS ORDERED: Pantoprazole Inj IVP ONE (17:30)
[2018-08-17] MEDS: Albuterol ud Inhalation HHN SCH ×3 (17:45→18:00)
[2018-08-17 17:59] LABS: BASOPHILS % (AUTO) 1.8 % (0.0-2.0); EOSINOPHILS % (AUTO) 2.3 % (0.0-3.0); HEMATOCRIT 45.8 % (42.0-52.0); HEMOGLOBIN 14.1 G/DL (14.2-18.0); LYMPHOCYTES % (AUTO) 31.6 % (20.0-45.0); MEAN CORPUSCULAR VOLUME 82 FL (80-99); MONOCYTES % (AUTO) 7.2 % (1.0-10.0); NEUTROPHILS % (AUTO) 57.1 % (45.0-75.0); PLATELET COUNT 310 K/UL (150-450); RED BLOOD COUNT 5.55 M/UL (4.70-6.10); RED CELL DISTRIBUTION WIDTH 16.4 % (11.6-14.8); WHITE BLOOD COUNT 8.1 K/UL (4.8-10.8)
[2018-08-17 18:06] LABS: ANION GAP 10 mmol/L (5-15); BLOOD UREA NITROGEN 18 mg/dL (7-18); CALCIUM 8.9 MG/DL (8.5-10.1); CARBON DIOXIDE 25 MMOL/L (21-32); CHLORIDE 106 MMOL/L (98-107); CREATININE 1.1 MG/DL (0.55-1.30); POTASSIUM 4.1 MMOL/L (3.5-5.1); SODIUM 141 MMOL/L (136-145)
[2018-08-17 18:17] LABS: ALANINE AMINOTRANSFERASE 20 U/L (12-78); ALBUMIN 3.6 G/DL (3.4-5.0); ALBUMIN/GLOBULIN RATIO 0.9 (1.0-2.7); ALKALINE PHOSPHATASE 111 U/L (46-116); ASPARTATE AMINO TRANSFERASE 21 U/L (15-37); BILIRUBIN,TOTAL 0.3 MG/DL (0.2-1.0); CREATINE KINASE 79 U/L (26-308)
[2018-08-17 18:31] LABS: APPEARANCE,URINE CLEAR; BILIRUBIN, URINE NEGATIVE (NEGATIVE); COLOR,URINE PALE YELLOW; GLUCOSE, URINE (UA) NEGATIVE (NEGATIVE); KETONES,URINE NEGATIVE (NEGATIVE); LEUKOCYTE ESTERASE ,URINE NEGATIVE (NEGATIVE); NITRITE,URINE NEGATIVE (NEGATIVE); PH,URINE 6.5 (4.5-8.0); PROTEIN,URINE 2+ (NEGATIVE); UROBILINOGEN,URINE NORMAL MG/DL (0.0-1.0)
[2018-08-17] MEDS ORDERED: HYDROmorphone 1mg/ml Carpuject IVP ONE (19:45)
[2018-08-17 20:04] VITALS: BP 179/91
[2018-08-17] MEDS ORDERED: Morphine Sulfate 2mg/ml Inj IVP PRN (20:45)
[2018-08-17] MEDS ORDERED: Miralax 17gm pkt ORAL PRN (20:45)
[2018-08-17] MEDS ORDERED: HYDROmorphone 2 MG in NS 50 ML IVPB PRN (20:45)
[2018-08-17 21:30] VITALS: BP 141/69
[2018-08-17] MEDS: Theophylline ER 100mg ORAL SCH (22:29)
[2018-08-17] MEDS: Heparin 5000 units/ml inj SUBQ SCH (22:29)
[2018-08-17] MEDS: Cefepime HCl 2 GM in D5W 110 ML IV SCH (22:30)
[2018-08-17] MEDS ORDERED: Vancomycin 1250mg/D5W 250ml IVPB SCH (23:00)
--- NOTE | 2018-08-17 23:29 | Consultation ---
History of Present Illness General Date patient seen: Aug 17, 2018 Chief Complaint: Chest Pain Present Illness HPI 67-year-old male, presents with chief complaint of chest pain. the pt has hx of depression and insomnia. Allergies: Coded Allergies: EGG (Verified Allergy, Unknown, 08/17/18) MEPERIDINE (Verified Allergy, Unknown, 08/17/18) NITROGLYCERIN (Verified Allergy, Unknown, hives, 08/17/18) Medication History Scheduled Amlodipine Besylate* (Amlodipine Besylate*), 10 MG ORAL DAILY, (Reported) Cephalexin* (Keflex*), 500 MG ORAL EVERY 8 HOURS, (Reported) Clopidogrel Bisulfate* (Plavix*), 75 MG ORAL DAILY, (Reported) Hydromorphone Hcl (Hydromorphone Hcl), 8 MG PO Q6HR, (Reported) Levetiracetam (Keppra), 500 MG ORAL DAILY, (Reported) Metoprolol Succinate* (Metoprolol Succinate*), 50 MG ORAL BID, (Reported) Mirtazapine* (Remeron*), 15 MG ORAL BEDTIME, (Reported) Ranitidine Hcl* (Zantac*), 150 MG ORAL Q12HR Theophylline (Theodur*), 100 MG ORAL EVERY 12 HOURS Scheduled PRN Albuterol Sulfate (Ventolin Hfa), 1 PUFF INH EVERY 6 HOURS PRN Docusate Sodium* (Colace*), 100 MG ORAL DAILY PRN for Constipation, (Reported) Ondansetron Hcl* (Zofran*), 8 MG ORAL Q6H PRN for Nausea & Vomiting, (Reported) Oxycodone Hcl/Acetaminophen 10-325* (Oxycodone-Acetaminophen 10-325*), 1 TAB ORAL Q4H PRN for For Pain, (Reported) Patient History Limited by: medical condition History Provided By: Patient, Medical Record Healthcare decision maker Resuscitation status Advanced Directive on File Past Medical/Surgical History Past Medical/Surgical History: (1) Emphysema lung (2) Atypical chest pain (3) Cardiac dysrhythmia (4) Decubitus ulcer, ankle, right, unstageable (5) ACS (acute coronary syndrome) (6) Esophagitis (7) Odynophagia (8) Hyperkalemia (9) Shingles (10) CAD (coronary artery disease) (11) Gastroenteritis (12) Hypothyroidism (13) Seizure disorder (14) Syncope (15) Peripheral vascular disease (16) Acute bronchitis (17) ATN (acute tubular necrosis) (18) Pneumonia (19) Severe malnutrition (20) HTN (hypertension) (21) Vikki esophagitis (22) COPD exacerbation (23) Peripheral arterial disease (24) FTT (failure to thrive) in adult (25) Acute on chronic renal failure (26) Hip dislocation, right (27) Osteomyelitis of right leg (28) Cellulitis of right leg (29) Chronic ulcer of right leg (30) Acute encephalopathy (31) Intractable back pain (32) Closed fracture of tibia and fibula with malunion (33) Nonhealing ulcer of right lower extremity (34) Osteomyelitis of right lower extremity Review of Systems Psychiatric: Reports: prior hx, anxiety, depressed feelings Physical Exam General Appearance: no apparent distress, alert Neurologic: oriented x 3, responsive, depressed affect Last 24 Hour Vital Signs Date Time Temp Pulse Resp B/P (MAP) Pulse Ox O2 Delivery O2 Flow Rate FiO2 08/17/18 21:41 98.5 84 19 151/75 98 Room Air 98.7 08/17/18 20:04 98.7 95 18 179/91 100 Room Air 98.7 08/17/18 20:01 97.7 08/17/18 18:18 97.7 08/17/18 18:13 80 20 100 Room Air 21 08/17/18 18:10 81 20 Room Air 21 08/17/18 18:00 81 20 100 Room Air 21 08/17/18 17:48 97.7 08/17/18 17:16 94 16 Room Air 08/17/18 17:16 97.7 16 163/92 96 Room Air 97.7 08/17/18 17:06 97.7 94 16 163/92 96 Room Air 97.7 Laboratory Tests Test 08/17/18 17:30 08/17/18 18:10 White Blood Count 8.1 K/UL (4.8-10.8) Red Blood Count 5.55 M/UL (4.70-6.10) Hemoglobin 14.1 G/DL (14.2-18.0) L Hematocrit 45.8 % (42.0-52.0) Mean Corpuscular Volume 82 FL (80-99) Mean Corpuscular Hemoglobin 25.4 PG (27.0-31.0) L Mean Corpuscular Hemoglobin Concent 30.8 G/DL (32.0-36.0) L Red Cell Distribution Width 16.4 % (11.6-14.8) H Platelet Count 310 K/UL (150-450) Mean Platelet Volume 6.2 FL (6.5-10.1) L Neutrophils (%) (Auto) 57.1 % (45.0-75.0) Lymphocytes (%) (Auto) 31.6 % (20.0-45.0) Monocytes (%) (Auto) 7.2 % (1.0-10.0) Eosinophils (%) (Auto) 2.3 % (0.0-3.0) Basophils (%) (Auto) 1.8 % (0.0-2.0) Prothrombin Time 10.6 SEC (9.30-11.50) Prothromb Time International Ratio 1.0 (0.9-1.1) Activated Partial Thromboplast Time 28 SEC (23-33) Sodium Level 141 MMOL/L (136-145) Potassium Level 4.1 MMOL/L (3.5-5.1) Chloride Level 106 MMOL/L (98-107) Carbon Dioxide Level 25 MMOL/L (21-32) Anion Gap 10 mmol/L (5-15) Blood Urea Nitrogen 18 mg/dL (7-18) Creatinine 1.1 MG/DL (0.55-1.30) Estimat Glomerular Filtration Rate > 60 mL/min (>60) Glucose Level 92 MG/DL (74-106) Lactic Acid Level 2.30 mmol/L (0.4-2.0) H Calcium Level 8.9 MG/DL (8.5-10.1) Total Bilirubin 0.3 MG/DL (0.2-1.0) Aspartate Amino Transf (AST/SGOT) 21 U/L (15-37) Alanine Aminotransferase (ALT/SGPT) 20 U/L (12-78) Alkaline Phosphatase 111 U/L (46-116) Total Creatine Kinase 79 U/L (26-308) Troponin I 0.017 ng/mL (0.000-0.056) Pro-B-Type Natriuretic Peptide 1316 pg/mL (0-125) H Total Protein 7.7 G/DL (6.4-8.2) Albumin 3.6 G/DL (3.4-5.0) Globulin 4.1 g/dL Albumin/Globulin Ratio 0.9 (1.0-2.7) L Urine Color Pale yellow Urine Appearance Clear Urine pH 6.5 (4.5-8.0) Urine Specific [place] 1.010 (1.005-1.035) Urine Protein 2+ (NEGATIVE) H Urine Glucose (UA) Negative (NEGATIVE) Urine Ketones Negative (NEGATIVE) Urine Blood 1+ (NEGATIVE) H Urine Nitrite Negative (NEGATIVE) Urine Bilirubin Negative (NEGATIVE) Urine Urobilinogen Normal MG/DL (0.0-1.0) Urine Leukocyte Esterase Negative (NEGATIVE) Urine RBC 2-4 /HPF (0 - 0) H Urine WBC 0-2 /HPF (0 - 0) Urine Squamous Epithelial Cells Occasional /LPF Urine Bacteria Occasional /HPF (NONE) Urine Opiates Screen Positive (NEGATIVE) H Urine Barbiturates Screen Negative (NEGATIVE) Phencyclidine (PCP) Screen Negative (NEGATIVE) Urine Amphetamines Screen Negative (NEGATIVE) Urine Benzodiazepines Screen Negative (NEGATIVE) Urine Cocaine Screen Negative (NEGATIVE) Urine Marijuana (THC) Screen Negative (NEGATIVE) Height (Feet): 6 Height (Inches): 1.00 Weight (Pounds): 130 Medications Current Medications Medications (Trade) Dose Ordered Sig/Aminata Route PRN Reason Start Time Stop Time Status Last Admin Dose Admin Acetaminophen (Tylenol) 650 mg Q4H PRN ORAL fever (temp>100.5F) 08/17/18 20:45 09/16/18 20:44 Albuterol/ Ipratropium (Albuterol/ Ipratropium) 3 ml Q4H PRN HHN Shortness of Breath 08/17/18 20:45 08/22/18 20:44 Amlodipine Besylate (Norvasc) 10 mg DAILY ORAL 08/18/18 09:00 09/17/18 08:59 Cefepime HCl 2 gm/ Dextrose 110 ml @ 220 mls/hr EVERY 12 HOURS IV 08/17/18 22:00 08/24/18 21:59 08/17/18 22:30 Clopidogrel Bisulfate (Plavix) 75 mg DAILY ORAL 08/18/18 09:00 09/17/18 08:59 Dextrose (Dextrose 50%) 25 ml STAT PRN IV Hypoglycemia 08/17/18 21:15 09/16/18 21:14 Dextrose (Dextrose 50%) 50 ml STAT PRN IV Hypoglycemia 08/17/18 20:45 09/16/18 20:44 Heparin Sodium (Porcine) (Heparin 5000 units/ml) 5,000 units EVERY 12 HOURS SUBQ 08/17/18 21:00 09/16/18 20:59 08/17/18 22:29 Hydromorphone HCl (Dilaudid) 2 mg Q3H PRN IVP Severe Pain (Pain Scale 7-10) 08/17/18 22:15 08/24/18 22:14 08/17/18 22:52 Levetiracetam (Keppra) 500 mg Q12HR ORAL 08/17/18 21:00 09/16/18 20:59 08/17/18 22:29 Mirtazapine (Remeron) 15 mg BEDTIME ORAL 08/17/18 21:00 09/16/18 20:59 08/17/18 22:29 Morphine Sulfate (Morphine Sulfate) 2 mg Q4H PRN IVP Moderate Pain (Pain Scale 4-6) 08/17/18 20:45 08/24/18 20:44 Ondansetron HCl (Zofran) 4 mg Q6H PRN IVP Nausea & Vomiting 08/17/18 20:45 09/16/18 20:44 Polyethylene Glycol (Miralax) 17 gm DAILYPRN PRN ORAL Constipation 08/17/18 20:45 09/16/18 20:44 Temazepam (Restoril) 15 mg HSPRN PRN ORAL Insomnia 08/17/18 20:45 08/24/18 20:44 Theophylline (Wilfrido-Dur) 100 mg EVERY 12 HOURS ORAL 08/17/18 21:00 09/16/18 20:59 08/17/18 22:29 Vancomycin HCl (Vanco rx to dose) 1 ea DAILY PRN MISC PER RX PROTOCOL 08/17/18 21:15 09/16/18 21:14 Vancomycin HCl/ Dextrose 250 ml @ 166.667 mls/hr Q24H IVPB 08/17/18 23:00 08/22/18 22:59 08/17/18 23:17 Assessment/Plan Assessment/Plan mdd anxiety Remeron ativan prn Rachael Buckley MD Aug 17, 2018 23:29
[2018-08-18] VITALS: BP 115/63
[2018-08-18] MEDS ORDERED: Vancomycin 1 GM in D5W 275 ML IV SCH (00:30)
[2018-08-18 04:00] VITALS: BP 122/93
[2018-08-18 07:20] LABS: BASOPHILS % (AUTO) 0.6 % (0.0-2.0); HEMATOCRIT 41.3 % (42.0-52.0); HEMOGLOBIN 12.9 G/DL (14.2-18.0); LYMPHOCYTES % (AUTO) 12.9 % (20.0-45.0); MEAN CORPUSCULAR VOLUME 82 FL (80-99); MONOCYTES % (AUTO) 2.8 % (1.0-10.0); NEUTROPHILS % (AUTO) 83.7 % (45.0-75.0); PLATELET COUNT 299 K/UL (150-450); RED BLOOD COUNT 5.02 M/UL (4.70-6.10); RED CELL DISTRIBUTION WIDTH 16.1 % (11.6-14.8); WHITE BLOOD COUNT 7.7 K/UL (4.8-10.8)
[2018-08-18 07:51] LABS: ALBUMIN 2.8 G/DL (3.4-5.0); ALBUMIN/GLOBULIN RATIO 0.8 (1.0-2.7); ALKALINE PHOSPHATASE 93 U/L (46-116); ANION GAP 10 mmol/L (5-15); ASPARTATE AMINO TRANSFERASE 12 U/L (15-37); BILIRUBIN,TOTAL 0.3 MG/DL (0.2-1.0); BLOOD UREA NITROGEN 23 mg/dL (7-18); CALCIUM 7.9 MG/DL (8.5-10.1); CARBON DIOXIDE 22 MMOL/L (21-32); CHLORIDE 107 MMOL/L (98-107); CREATININE 1.5 MG/DL (0.55-1.30); POTASSIUM 4.6 MMOL/L (3.5-5.1); SODIUM 139 MMOL/L (136-145)
[2018-08-18 08:00] VITALS: BP 138/67
[2018-08-18] MEDS: Cefepime HCl 2 GM in D5W 110 ML IV SCH (08:11)
[2018-08-18] MEDS: Theophylline ER 100mg ORAL SCH ×2 (08:11→21:49)
[2018-08-18] MEDS: Heparin 5000 units/ml inj SUBQ SCH ×2 (08:13→21:51)
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
--- NOTE | 2018-08-18 09:20 | Diagnostic Imaging Report ---
Indication: Cough Technique: One view of the chest Comparison: 08/02/2018 Findings: The lungs are hyperinflated. The heart size is normal. There is evidence of prior CABG.. Old healed left shoulder fracture deformity again demonstrated. No significant interim change Impression: No acute process
[2018-08-18 10:43] LABS: ALANINE AMINOTRANSFERASE 17 U/L (12-78)
--- NOTE | 2018-08-18 11:26 | Consultation ---
History of Present Illness General Date patient seen: Aug 18, 2018 Chief Complaint: Chest Pain Reason for Consultation: Hx of fever and SOB Present Illness HPI 67 year old male with hx of COPD, cachexia, CAD, Hep Cchronic foot ulcer presented to ER with CC of substernal chest pain. He also has a productive cough with yellow phlegm without blood. He's had fevers and chills. He has been loosing weight. He is depressed about his illnesses. Allergies: Coded Allergies: EGG (Verified Allergy, Unknown, 08/17/18) MEPERIDINE (Verified Allergy, Unknown, 08/17/18) NITROGLYCERIN (Verified Allergy, Unknown, hives, 08/17/18) Medication History Scheduled Amlodipine Besylate* (Amlodipine Besylate*), 10 MG ORAL DAILY, (Reported) Cephalexin* (Keflex*), 500 MG ORAL EVERY 8 HOURS, (Reported) Clopidogrel Bisulfate* (Plavix*), 75 MG ORAL DAILY, (Reported) Hydromorphone Hcl (Hydromorphone Hcl), 8 MG PO Q6HR, (Reported) Levetiracetam (Keppra), 500 MG ORAL DAILY, (Reported) Metoprolol Succinate* (Metoprolol Succinate*), 50 MG ORAL BID, (Reported) Mirtazapine* (Remeron*), 15 MG ORAL BEDTIME, (Reported) Ranitidine Hcl* (Zantac*), 150 MG ORAL Q12HR Theophylline (Theodur*), 100 MG ORAL EVERY 12 HOURS Scheduled PRN Albuterol Sulfate (Ventolin Hfa), 1 PUFF INH EVERY 6 HOURS PRN Docusate Sodium* (Colace*), 100 MG ORAL DAILY PRN for Constipation, (Reported) Ondansetron Hcl* (Zofran*), 8 MG ORAL Q6H PRN for Nausea & Vomiting, (Reported) Oxycodone Hcl/Acetaminophen 10-325* (Oxycodone-Acetaminophen 10-325*), 1 TAB ORAL Q4H PRN for For Pain, (Reported) Patient History Healthcare decision maker Resuscitation status Full Code Advanced Directive on File Family History Family History: (1) Emphysema lung (2) Cardiac dysrhythmia (3) CAD (coronary artery disease) (4) Seizure disorder (5) Nonhealing ulcer of right lower extremity Review of Systems Constitutional: Reports: sweats, malaise Physical Exam General Appearance: cachetic Lines, tubes and drains: peripheral HEENT: normocephalic, atraumatic Neck: non-tender, normal alignment Respiratory/Chest: chest wall non-tender, lungs clear Breasts: no masses Cardiovascular/Chest: normal peripheral pulses Abdomen: normal bowel sounds, non tender Genitourinary/Rectal: normal genital exam Extremities: normal range of motion Skin Exam: normal pigmentation 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 Last 24 Hour Vital Signs Date Time Temp Pulse Resp B/P (MAP) Pulse Ox O2 Delivery O2 Flow Rate FiO2 08/18/18 09:00 Room Air 08/18/18 08:45 97.9 08/18/18 08:15 97.9 08/18/18 08:12 81 138/67 08/18/18 08:00 97.3 81 20 138/67 (90) 95 97.3 08/18/18 08:00 81 08/18/18 04:00 74 08/18/18 04:00 97.9 75 20 122/93 (103) 95 97.9 08/18/18 00:00 86 08/18/18 00:00 98.0 82 20 115/63 (80) 95 98.0 08/17/18 23:27 Room Air 08/17/18 23:26 Room Air 08/17/18 21:41 98.5 84 19 151/75 98 Room Air 98.7 08/17/18 21:30 97.9 86 20 141/69 (93) 96 97.9 08/17/18 20:04 98.7 95 18 179/91 100 Room Air 98.7 08/17/18 20:01 97.7 08/17/18 18:18 97.7 08/17/18 18:13 80 20 100 Room Air 21 08/17/18 18:10 81 20 Room Air 21 08/17/18 18:00 81 20 100 Room Air 21 08/17/18 17:48 97.7 08/17/18 17:16 94 16 Room Air 08/17/18 17:16 97.7 16 163/92 96 Room Air 97.7 08/17/18 17:06 97.7 94 16 163/92 96 Room Air 97.7 Intake and Output 08/17/18 08/18/18 19:00 07:00 Intake Total 360 ml Balance 360 ml Intake Oral 0 ml IV Total 360 ml # Voids 1 2 # Bowel Movements 1 Laboratory Tests Test 08/17/18 17:30 08/17/18 18:10 08/18/18 06:50 White Blood Count 8.1 K/UL (4.8-10.8) 7.7 K/UL (4.8-10.8) Red Blood Count 5.55 M/UL (4.70-6.10) 5.02 M/UL (4.70-6.10) Hemoglobin 14.1 G/DL (14.2-18.0) L 12.9 G/DL (14.2-18.0) L Hematocrit 45.8 % (42.0-52.0) 41.3 % (42.0-52.0) L Mean Corpuscular Volume 82 FL (80-99) 82 FL (80-99) Mean Corpuscular Hemoglobin 25.4 PG (27.0-31.0) L 25.8 PG (27.0-31.0) L Mean Corpuscular Hemoglobin Concent 30.8 G/DL (32.0-36.0) L 31.3 G/DL (32.0-36.0) L Red Cell Distribution Width 16.4 % (11.6-14.8) H 16.1 % (11.6-14.8) H Platelet Count 310 K/UL (150-450) 299 K/UL (150-450) Mean Platelet Volume 6.2 FL (6.5-10.1) L 6.6 FL (6.5-10.1) Neutrophils (%) (Auto) 57.1 % (45.0-75.0) 83.7 % (45.0-75.0) H Lymphocytes (%) (Auto) 31.6 % (20.0-45.0) 12.9 % (20.0-45.0) L Monocytes (%) (Auto) 7.2 % (1.0-10.0) 2.8 % (1.0-10.0) Eosinophils (%) (Auto) 2.3 % (0.0-3.0) 0.0 % (0.0-3.0) Basophils (%) (Auto) 1.8 % (0.0-2.0) 0.6 % (0.0-2.0) Prothrombin Time 10.6 SEC (9.30-11.50) Prothromb Time International Ratio 1.0 (0.9-1.1) Activated Partial Thromboplast Time 28 SEC (23-33) Sodium Level 141 MMOL/L (136-145) 139 MMOL/L (136-145) Potassium Level 4.1 MMOL/L (3.5-5.1) 4.6 MMOL/L (3.5-5.1) Chloride Level 106 MMOL/L (98-107) 107 MMOL/L (98-107) Carbon Dioxide Level 25 MMOL/L (21-32) 22 MMOL/L (21-32) Anion Gap 10 mmol/L (5-15) 10 mmol/L (5-15) Blood Urea Nitrogen 18 mg/dL (7-18) 23 mg/dL (7-18) H Creatinine 1.1 MG/DL (0.55-1.30) 1.5 MG/DL (0.55-1.30) H Estimat Glomerular Filtration Rate > 60 mL/min (>60) 56.4 mL/min (>60) Glucose Level 92 MG/DL (74-106) 203 MG/DL (74-106) #H Lactic Acid Level 2.30 mmol/L (0.4-2.0) H Calcium Level 8.9 MG/DL (8.5-10.1) 7.9 MG/DL (8.5-10.1) L Total Bilirubin 0.3 MG/DL (0.2-1.0) 0.3 MG/DL (0.2-1.0) Aspartate Amino Transf (AST/SGOT) 21 U/L (15-37) 12 U/L (15-37) L Alanine Aminotransferase (ALT/SGPT) 20 U/L (12-78) 17 U/L (12-78) Alkaline Phosphatase 111 U/L (46-116) 93 U/L (46-116) Total Creatine Kinase 79 U/L (26-308) Troponin I 0.017 ng/mL (0.000-0.056) Pro-B-Type Natriuretic Peptide 1316 pg/mL (0-125) H Total Protein 7.7 G/DL (6.4-8.2) 6.5 G/DL (6.4-8.2) Albumin 3.6 G/DL (3.4-5.0) 2.8 G/DL (3.4-5.0) L Globulin 4.1 g/dL 3.7 g/dL Albumin/Globulin Ratio 0.9 (1.0-2.7) L 0.8 (1.0-2.7) L Urine Color Pale yellow Urine Appearance Clear Urine pH 6.5 (4.5-8.0) Urine Specific [place] 1.010 (1.005-1.035) Urine Protein 2+ (NEGATIVE) H Urine Glucose (UA) Negative (NEGATIVE) Urine Ketones Negative (NEGATIVE) Urine Blood 1+ (NEGATIVE) H Urine Nitrite Negative (NEGATIVE) Urine Bilirubin Negative (NEGATIVE) Urine Urobilinogen Normal MG/DL (0.0-1.0) Urine Leukocyte Esterase Negative (NEGATIVE) Urine RBC 2-4 /HPF (0 - 0) H Urine WBC 0-2 /HPF (0 - 0) Urine Squamous Epithelial Cells Occasional /LPF Urine Bacteria Occasional /HPF (NONE) Urine Opiates Screen Positive (NEGATIVE) H Urine Barbiturates Screen Negative (NEGATIVE) Phencyclidine (PCP) Screen Negative (NEGATIVE) Urine Amphetamines Screen Negative (NEGATIVE) Urine Benzodiazepines Screen Negative (NEGATIVE) Urine Cocaine Screen Negative (NEGATIVE) Urine Marijuana (THC) Screen Negative (NEGATIVE) Height (Feet): 6 Height (Inches): 1.00 Weight (Pounds): 130 Medications Current Medications Medications (Trade) Dose Ordered Sig/Aminata Route PRN Reason Start Time Stop Time Status Last Admin Dose Admin Acetaminophen (Tylenol) 650 mg Q4H PRN ORAL fever (temp>100.5F) 08/17/18 20:45 09/16/18 20:44 Albuterol/ Ipratropium (Albuterol/ Ipratropium) 3 ml Q4H PRN HHN Shortness of Breath 08/17/18 20:45 08/22/18 20:44 Amlodipine Besylate (Norvasc) 10 mg DAILY ORAL 08/18/18 09:00 09/17/18 08:59 08/18/18 08:12 Azithromycin (Zithromax) 250 mg DAILY ORAL 08/18/18 10:15 08/22/18 10:14 Clopidogrel Bisulfate (Plavix) 75 mg DAILY ORAL 08/18/18 09:00 09/17/18 08:59 08/18/18 08:11 Dextrose (Dextrose 50%) 25 ml STAT PRN IV Hypoglycemia 08/17/18 21:15 09/16/18 21:14 Dextrose (Dextrose 50%) 50 ml STAT PRN IV Hypoglycemia 08/17/18 20:45 09/16/18 20:44 Heparin Sodium (Porcine) (Heparin 5000 units/ml) 5,000 units EVERY 12 HOURS SUBQ 08/17/18 21:00 09/16/18 20:59 08/18/18 08:13 Hydromorphone HCl (Dilaudid) 2 mg Q3H PRN IVP Severe Pain (Pain Scale 7-10) 08/17/18 22:15 08/24/18 22:14 08/18/18 08:15 Levetiracetam (Keppra) 500 mg Q12HR ORAL 08/17/18 21:00 09/16/18 20:59 08/18/18 08:11 Mirtazapine (Remeron) 15 mg BEDTIME ORAL 08/17/18 21:00 09/16/18 20:59 08/17/18 22:29 Morphine Sulfate (Morphine Sulfate) 2 mg Q4H PRN IVP Moderate Pain (Pain Scale 4-6) 08/17/18 20:45 08/24/18 20:44 Ondansetron HCl (Zofran) 4 mg Q6H PRN IVP Nausea & Vomiting 08/17/18 20:45 09/16/18 20:44 Polyethylene Glycol (Miralax) 17 gm DAILYPRN PRN ORAL Constipation 08/17/18 20:45 09/16/18 20:44 Temazepam (Restoril) 15 mg HSPRN PRN ORAL Insomnia 08/17/18 20:45 08/24/18 20:44 Theophylline (Wilfrido-Dur) 100 mg EVERY 12 HOURS ORAL 08/17/18 21:00 09/16/18 20:59 08/18/18 08:11 Assessment/Plan Problem List: (1) Acute bronchitis ICD Codes: J20.9 - Acute bronchitis SNOMED: 87695229 (2) ACS (acute coronary syndrome) ICD Codes: I24.9 - Acute coronary syndrome SNOMED: 121549125 (3) COPD exacerbation ICD Codes: J44.1 - Obstructive chronic bronchitis with exacerbation SNOMED: 813687912 (4) HTN (hypertension) ICD Codes: I10 - Hypertension SNOMED: 69738301 (5) Severe malnutrition ICD Codes: E43 - Unspecified severe protein-calorie malnutrition SNOMED: 67999964 (6) Intractable back pain ICD Codes: M54.9 - Dorsalgia, unspecified SNOMED: 375050380 (7) Chronic ulcer of right leg ICD Codes: L97.919 - Non-pressure chronic ulcer of unspecified part of right lower leg with unspecified severity SNOMED: 30680042 Assessment/Plan respiratory treatment check sputum cardiac evaluation podiatry to see psych f/u Jessie Magana MD Aug 18, 2018 11:26
[2018-08-18] MEDS: Azithromycin 250mg tab ORAL SCH (11:33)
--- NOTE | 2018-08-18 14:55 | History & Physical ---
History and Physical History & Physicial HISTORY AND PHYSICAL Patient: PRIYA CHAVARRIA [facility] Rec #: [id number] Patient No.: [id number] Date of Service: 08/18/18 DATE OF ADMISSION: 08/18/2018 CHIEF COMPLAINT: The patient is a 67-year-old male, presents with chief complaint of chest pain. HISTORY OF PRESENT ILLNESS: The patient has a history of chronic chest pain. He has recurrent admission to [facility] as well as [facility] for chest pain . The patient is status post cardiac catheterization in early June 2018. The patient was also experiencing shortness of breath. The patient denies nausea and vomiting. The patient presented to [facility] with chief complaint of chest pain. The patient is admitted for chest pain to rule out acute coronary syndrome. REVIEW OF SYSTEMS: CONSTITUTIONAL: The patient denies weight loss or gain. The patient denies fevers or chills. HEENT: The patient denies ear or throat pain. The patient denies headache. CARDIOVASCULAR: The patient complains of chest pain as above. The patient denies palpitations. CHEST: The patient complains of shortness of breath as above. The patient has wheezes. ABDOMEN: The patient denies nausea, vomiting, diarrhea, or constipation. GENITOURINARY: The patient denies dysuria or increased frequency of urination. NEUROMUSCULAR: The patient denies seizures or generalized weakness. PAST MEDICAL HISTORY: Significant for, 1. Coronary artery disease. 2. History of myocardial infarction x2. 3. Hypertension. 4. Chronic obstructive pulmonary disease. 5. Seizure disorder. PAST SURGICAL HISTORY: Significant for, 1. Cardiac catheterization in early 06/2018 at [facility] as above. 2. Coronary artery bypass graft in 2009 and again in 2010. 3. Coronary angioplasty with stent placement x2. CURRENT MEDICATIONS: 1. Albuterol metered-dose inhaler two puffs p.o. q.i.d. p.r.n. 2. Amlodipine 10 mg p.o. daily. 3. Clopidogrel 75 mg p.o. daily. 4. Dilaudid 2 mg p.o. q.4 hours. 5. Keppra 500 mg p.o. twice daily. 6. Metoprolol 50 mg p.o. twice daily. 7. Remeron 15 mg p.o. at bedtime. 8. Zantac 150 mg p.o. twice daily. 9. Wilfrido-Dur 100 mg p.o. twice daily. ALLERGIES: 1. Nitroglycerin. 2. Demerol. 3. Egg. SOCIAL HISTORY: The patient is . However, he lives with his ex-. The patient admits to tobacco use of one-quarter pack per day. The patient denies alcohol use. PHYSICAL EXAMINATION: Date Time Temp Pulse Resp B/P (MAP) Pulse Ox O2 Delivery O2 Flow Rate FiO2 08/18/18 12:04 97.9 08/18/18 12:00 93 08/18/18 11:34 97.9 08/18/18 09:00 Room Air 08/18/18 08:15 97.9 08/18/18 08:12 81 138/67 08/18/18 08:00 97.3 81 20 138/67 (90) 95 97.3 08/18/18 08:00 81 08/18/18 04:00 74 08/18/18 04:00 97.9 75 20 122/93 (103) 95 97.9 08/18/18 00:00 86 08/18/18 00:00 98.0 82 20 115/63 (80) 95 98.0 08/17/18 23:27 Room Air 08/17/18 23:26 Room Air 08/17/18 21:41 98.5 84 19 151/75 98 Room Air 98.7 08/17/18 21:30 97.9 86 20 141/69 (93) 96 97.9 08/17/18 20:04 98.7 95 18 179/91 100 Room Air 98.7 08/17/18 20:01 97.7 08/17/18 18:18 97.7 08/17/18 18:13 80 20 100 Room Air 21 08/17/18 18:10 81 20 Room Air 21 08/17/18 18:00 81 20 100 Room Air 21 08/17/18 17:48 97.7 08/17/18 17:16 94 16 Room Air 08/17/18 17:16 97.7 16 163/92 96 Room Air 97.7 08/17/18 17:06 97.7 94 16 163/92 96 Room Air 97.7 GENERAL: The patient is well-developed, well-nourished thin-appearing male, in no apparent distress. HEENT: Pupils equal and responsive to light and accommodation. Extraocular movements are intact. NECK: Supple without lymphadenopathy. CHEST: Lungs are clear to auscultation bilaterally without wheezes or rales. Chest wall wire under skin. CARDIOVASCULAR: Regular rhythm and rate. S1 and S2 normal without murmurs, ABDOMEN: Soft, nontender, nondistended with positive bowel sounds. no rebound or guarding EXTREMITIES: Negative for clubbing, cyanosis, or edema. RECTAL/GENITAL: Refused. NEUROLOGICAL: Cranial nerves II through XII are grossly intact without focal deficits. Motor strength is 5/5 bilaterally. LABORATORY STUDIES: Test 08/17/18 17:30 08/17/18 18:10 08/18/18 06:50 White Blood Count 8.1 K/UL (4.8-10.8) 7.7 K/UL (4.8-10.8) Red Blood Count 5.55 M/UL (4.70-6.10) 5.02 M/UL (4.70-6.10) Hemoglobin 14.1 G/DL (14.2-18.0) 12.9 G/DL (14.2-18.0) Hematocrit 45.8 % (42.0-52.0) 41.3 % (42.0-52.0) Mean Corpuscular Volume 82 FL (80-99) 82 FL (80-99) Mean Corpuscular Hemoglobin 25.4 PG (27.0-31.0) 25.8 PG (27.0-31.0) Mean Corpuscular Hemoglobin Concent 30.8 G/DL (32.0-36.0) 31.3 G/DL (32.0-36.0) Red Cell Distribution Width 16.4 % (11.6-14.8) 16.1 % (11.6-14.8) Platelet Count 310 K/UL (150-450) 299 K/UL (150-450) Mean Platelet Volume 6.2 FL (6.5-10.1) 6.6 FL (6.5-10.1) Neutrophils (%) (Auto) 57.1 % (45.0-75.0) 83.7 % (45.0-75.0) Lymphocytes (%) (Auto) 31.6 % (20.0-45.0) 12.9 % (20.0-45.0) Monocytes (%) (Auto) 7.2 % (1.0-10.0) 2.8 % (1.0-10.0) Eosinophils (%) (Auto) 2.3 % (0.0-3.0) 0.0 % (0.0-3.0) Basophils (%) (Auto) 1.8 % (0.0-2.0) 0.6 % (0.0-2.0) Prothrombin Time 10.6 SEC (9.30-11.50) Prothromb Time International Ratio 1.0 (0.9-1.1) Activated Partial Thromboplast Time 28 SEC (23-33) Sodium Level 141 MMOL/L (136-145) 139 MMOL/L (136-145) Potassium Level 4.1 MMOL/L (3.5-5.1) 4.6 MMOL/L (3.5-5.1) Chloride Level 106 MMOL/L (98-107) 107 MMOL/L (98-107) Carbon Dioxide Level 25 MMOL/L (21-32) 22 MMOL/L (21-32) Anion Gap 10 mmol/L (5-15) 10 mmol/L (5-15) Blood Urea Nitrogen 18 mg/dL (7-18) 23 mg/dL (7-18) Creatinine 1.1 MG/DL (0.55-1.30) 1.5 MG/DL (0.55-1.30) Estimat Glomerular Filtration Rate > 60 mL/min (>60) 56.4 mL/min (>60) Glucose Level 92 MG/DL (74-106) 203 MG/DL (74-106) Lactic Acid Level 2.30 mmol/L (0.4-2.0) Calcium Level 8.9 MG/DL (8.5-10.1) 7.9 MG/DL (8.5-10.1) Total Bilirubin 0.3 MG/DL (0.2-1.0) 0.3 MG/DL (0.2-1.0) Aspartate Amino Transf (AST/SGOT) 21 U/L (15-37) 12 U/L (15-37) Alanine Aminotransferase (ALT/SGPT) 20 U/L (12-78) 17 U/L (12-78) Alkaline Phosphatase 111 U/L (46-116) 93 U/L (46-116) Total Creatine Kinase 79 U/L (26-308) Troponin I 0.017 ng/mL (0.000-0.056) Pro-B-Type Natriuretic Peptide 1316 pg/mL (0-125) Total Protein 7.7 G/DL (6.4-8.2) 6.5 G/DL (6.4-8.2) Albumin 3.6 G/DL (3.4-5.0) 2.8 G/DL (3.4-5.0) Globulin 4.1 g/dL 3.7 g/dL Albumin/Globulin Ratio 0.9 (1.0-2.7) 0.8 (1.0-2.7) Urine Color Pale yellow Urine Appearance Clear Urine pH 6.5 (4.5-8.0) Urine Specific [place] 1.010 (1.005-1.035) Urine Protein 2+ (NEGATIVE) Urine Glucose (UA) Negative (NEGATIVE) Urine Ketones Negative (NEGATIVE) Urine Blood 1+ (NEGATIVE) Urine Nitrite Negative (NEGATIVE) Urine Bilirubin Negative (NEGATIVE) Urine Urobilinogen Normal MG/DL (0.0-1.0) Urine Leukocyte Esterase Negative (NEGATIVE) Urine RBC 2-4 /HPF (0 - 0) Urine WBC 0-2 /HPF (0 - 0) Urine Squamous Epithelial Cells Occasional /LPF Urine Bacteria Occasional /HPF (NONE) Urine Opiates Screen Positive (NEGATIVE) Urine Barbiturates Screen Negative (NEGATIVE) Phencyclidine (PCP) Screen Negative (NEGATIVE) Urine Amphetamines Screen Negative (NEGATIVE) Urine Benzodiazepines Screen Negative (NEGATIVE) Urine Cocaine Screen Negative (NEGATIVE) Urine Marijuana (THC) Screen Negative (NEGATIVE) ASSESSMENT: This is a 67-year-old male, 1. Chest pain. 2. Coronary artery disease. 3. Hypertension. 4. Chronic obstructive pulmonary disease. 5. Seizure disorder. TREATMENT: 1. Chest pain/coronary artery disease. A Cardiology consultation has been obtained with Dr. Ames. 2. Hypertension. Continue Norvasc and metoprolol as above. 3. Chronic obstructive pulmonary disease. Continue albuterol nebulized q. 4h. p.r.n. 4. Seizure disorder. Continue Keppra as above. Cora Hahn,Phil MCCALL Aug 18, 2018 14:55
--- NOTE | 2018-08-18 15:36 | Cardiology Progress Note ---
Subjective Subjective [id number] Objective Last 24 Hour Vital Signs Date Time Temp Pulse Resp B/P (MAP) Pulse Ox O2 Delivery O2 Flow Rate FiO2 08/18/18 15:01 97.9 08/18/18 12:04 97.9 08/18/18 12:00 93 08/18/18 11:34 97.9 08/18/18 09:00 Room Air 08/18/18 08:15 97.9 08/18/18 08:12 81 138/67 08/18/18 08:00 97.3 81 20 138/67 (90) 95 97.3 08/18/18 08:00 81 08/18/18 04:00 74 08/18/18 04:00 97.9 75 20 122/93 (103) 95 97.9 08/18/18 00:00 86 08/18/18 00:00 98.0 82 20 115/63 (80) 95 98.0 08/17/18 23:27 Room Air 08/17/18 23:26 Room Air 08/17/18 21:41 98.5 84 19 151/75 98 Room Air 98.7 08/17/18 21:30 97.9 86 20 141/69 (93) 96 97.9 08/17/18 20:04 98.7 95 18 179/91 100 Room Air 98.7 08/17/18 20:01 97.7 08/17/18 18:18 97.7 08/17/18 18:13 80 20 100 Room Air 21 08/17/18 18:10 81 20 Room Air 21 08/17/18 18:00 81 20 100 Room Air 21 08/17/18 17:48 97.7 08/17/18 17:16 94 16 Room Air 08/17/18 17:16 97.7 16 163/92 96 Room Air 97.7 08/17/18 17:06 97.7 94 16 163/92 96 Room Air 97.7 Intake and Output 08/17/18 08/18/18 19:00 07:00 Intake Total 360 ml Balance 360 ml Intake Oral 0 ml IV Total 360 ml # Voids 1 2 # Bowel Movements 1 Laboratory Tests Test 08/17/18 17:30 08/17/18 18:10 08/18/18 06:50 White Blood Count 8.1 K/UL (4.8-10.8) 7.7 K/UL (4.8-10.8) Red Blood Count 5.55 M/UL (4.70-6.10) 5.02 M/UL (4.70-6.10) Hemoglobin 14.1 G/DL (14.2-18.0) L 12.9 G/DL (14.2-18.0) L Hematocrit 45.8 % (42.0-52.0) 41.3 % (42.0-52.0) L Mean Corpuscular Volume 82 FL (80-99) 82 FL (80-99) Mean Corpuscular Hemoglobin 25.4 PG (27.0-31.0) L 25.8 PG (27.0-31.0) L Mean Corpuscular Hemoglobin Concent 30.8 G/DL (32.0-36.0) L 31.3 G/DL (32.0-36.0) L Red Cell Distribution Width 16.4 % (11.6-14.8) H 16.1 % (11.6-14.8) H Platelet Count 310 K/UL (150-450) 299 K/UL (150-450) Mean Platelet Volume 6.2 FL (6.5-10.1) L 6.6 FL (6.5-10.1) Neutrophils (%) (Auto) 57.1 % (45.0-75.0) 83.7 % (45.0-75.0) H Lymphocytes (%) (Auto) 31.6 % (20.0-45.0) 12.9 % (20.0-45.0) L Monocytes (%) (Auto) 7.2 % (1.0-10.0) 2.8 % (1.0-10.0) Eosinophils (%) (Auto) 2.3 % (0.0-3.0) 0.0 % (0.0-3.0) Basophils (%) (Auto) 1.8 % (0.0-2.0) 0.6 % (0.0-2.0) Prothrombin Time 10.6 SEC (9.30-11.50) Prothromb Time International Ratio 1.0 (0.9-1.1) Activated Partial Thromboplast Time 28 SEC (23-33) Sodium Level 141 MMOL/L (136-145) 139 MMOL/L (136-145) Potassium Level 4.1 MMOL/L (3.5-5.1) 4.6 MMOL/L (3.5-5.1) Chloride Level 106 MMOL/L (98-107) 107 MMOL/L (98-107) Carbon Dioxide Level 25 MMOL/L (21-32) 22 MMOL/L (21-32) Anion Gap 10 mmol/L (5-15) 10 mmol/L (5-15) Blood Urea Nitrogen 18 mg/dL (7-18) 23 mg/dL (7-18) H Creatinine 1.1 MG/DL (0.55-1.30) 1.5 MG/DL (0.55-1.30) H Estimat Glomerular Filtration Rate > 60 mL/min (>60) 56.4 mL/min (>60) Glucose Level 92 MG/DL (74-106) 203 MG/DL (74-106) #H Lactic Acid Level 2.30 mmol/L (0.4-2.0) H Calcium Level 8.9 MG/DL (8.5-10.1) 7.9 MG/DL (8.5-10.1) L Total Bilirubin 0.3 MG/DL (0.2-1.0) 0.3 MG/DL (0.2-1.0) Aspartate Amino Transf (AST/SGOT) 21 U/L (15-37) 12 U/L (15-37) L Alanine Aminotransferase (ALT/SGPT) 20 U/L (12-78) 17 U/L (12-78) Alkaline Phosphatase 111 U/L (46-116) 93 U/L (46-116) Total Creatine Kinase 79 U/L (26-308) Troponin I 0.017 ng/mL (0.000-0.056) Pro-B-Type Natriuretic Peptide 1316 pg/mL (0-125) H Total Protein 7.7 G/DL (6.4-8.2) 6.5 G/DL (6.4-8.2) Albumin 3.6 G/DL (3.4-5.0) 2.8 G/DL (3.4-5.0) L Globulin 4.1 g/dL 3.7 g/dL Albumin/Globulin Ratio 0.9 (1.0-2.7) L 0.8 (1.0-2.7) L Urine Color Pale yellow Urine Appearance Clear Urine pH 6.5 (4.5-8.0) Urine Specific [place] 1.010 (1.005-1.035) Urine Protein 2+ (NEGATIVE) H Urine Glucose (UA) Negative (NEGATIVE) Urine Ketones Negative (NEGATIVE) Urine Blood 1+ (NEGATIVE) H Urine Nitrite Negative (NEGATIVE) Urine Bilirubin Negative (NEGATIVE) Urine Urobilinogen Normal MG/DL (0.0-1.0) Urine Leukocyte Esterase Negative (NEGATIVE) Urine RBC 2-4 /HPF (0 - 0) H Urine WBC 0-2 /HPF (0 - 0) Urine Squamous Epithelial Cells Occasional /LPF Urine Bacteria Occasional /HPF (NONE) Urine Opiates Screen Positive (NEGATIVE) H Urine Barbiturates Screen Negative (NEGATIVE) Phencyclidine (PCP) Screen Negative (NEGATIVE) Urine Amphetamines Screen Negative (NEGATIVE) Urine Benzodiazepines Screen Negative (NEGATIVE) Urine Cocaine Screen Negative (NEGATIVE) Urine Marijuana (THC) Screen Negative (NEGATIVE) Neal Ames MD Aug 18, 2018 15:36
--- NOTE | 2018-08-18 15:50 | Cardiology Report ---
APPROVED REPORT EKG Measurement Heart [id number] Sinus rhythm with premature supraventricular complexes Possible Left atrial enlargement Borderline ECG
[2018-08-18 20:00] VITALS: BP 128/75
[2018-08-18] MEDS: Atorvastatin 20mg tab ORAL SCH (21:50)
[2018-08-18] MEDS: Albuterol/Ipratropium 3ml neb HHN PRN (23:21)
--- NOTE | 2018-08-18 23:45 | Consultation ---
DATE OF CONSULTATION: 08/18/2018 Cardiology Consultation CONSULTING PHYSICIAN: Neal Ames M.D. REFERRING PHYSICIAN: Phil Wright M.D. REASON FOR CONSULTATION: Chest pain. HISTORY OF PRESENT ILLNESS: The patient is a 67-year-old gentleman that I am quite familiar from his previous admission about a month ago. The patient has history of hypertension, coronary artery disease, and history of coronary artery bypass graft, who underwent cardiac catheterization at [facility]. The patient had 90% proximal LAD stenosis just prior to first diagonal as well as distal LAD that was grafted by LOREDO. The circumflex also had stenosis of 99% proximal and 80% distal disease. The patient also had intact JOSHUA and RCA was occluded. This cardiac catheterization was done on 06/25/2018. The patient was observed to be treated medically. The patient was admitted again with chest pain. A Cardiology consultation was obtained for further evaluation and management. REVIEW OF SYSTEMS: Negative other than what was mentioned in history of present illness. PAST MEDICAL HISTORY: 1. Hypertension. 2. Hyperlipidemia. 3. History of coronary artery disease in 2009. 4. History of angioplasty of the LAD and circumflex in June 2018. 5. COPD. 6. Right leg ulcer. FAMILY HISTORY: Noncontributory. SOCIAL HISTORY: Lives with family. Does not smoke or drink alcohol. PHYSICAL EXAMINATION: VITAL SIGNS: Show blood pressure of 110/70, pulse is 70, respirations 18, and he is afebrile. HEAD AND NECK: Showed no JVD or carotid bruits. LUNGS: Clear. CARDIOVASCULAR: Shows regular S1 and S2 with no gallop or murmur. Sternotomy is intact. ABDOMEN: Soft. EXTREMITIES: No pitting edema right ankle ulcer. LABORATORY DATA: White count 7.7, hemoglobin of 13, hematocrit of 41, and platelet count is 299,000. Sodium is 139, potassium is 4.6, BUN of 22, creatinine of 1.5, and glucose of 203. Lactic acid is 2.3. Troponin negative x2. ASSESSMENT AND PLAN: 1. Atypical chest pain. The patient was ruled out for myocardial infarction. The patient had cardiac catheterization as mentioned above. We will treat the patient medically with combination of aspirin and Plavix and add Lipitor to his medical regimen. 2. Hypertension, on Norvasc 10 mg daily. 3. COPD. 4. Leg ulcer. 5. Seizures, on Keppra. Thank you very much, Dr. Wright for allowing me to participate in the care of this patient. Please do not hesitate to contact me for any questions regarding my evaluation. Sincerely, Neal Ames M.D. DR: MILDRED JOB#: [id number] CC:
[2018-08-19] VITALS: BP 119/65
--- NOTE | 2018-08-19 00:04 | General Progress Note ---
Assessment/Plan Assessment/Plan mdd anxiety Alonso anna mariefacundo prn Subjective Date patient seen: Aug 18, 2018 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: Reports: anxiety, depressed, emotional problems Allergies: Coded Allergies: EGG (Verified Allergy, Unknown, 08/17/18) MEPERIDINE (Verified Allergy, Unknown, 08/17/18) NITROGLYCERIN (Verified Allergy, Unknown, hives, 08/17/18) Objective Last 24 Hour Vital Signs Date Time Temp Pulse Resp B/P (MAP) Pulse Ox O2 Delivery O2 Flow Rate FiO2 08/18/18 23:21 83 20 95 Room Air 21 08/18/18 23:21 83 20 Room Air 21 08/18/18 21:00 Room Air 08/18/18 20:00 91 08/18/18 19:12 97.9 08/18/18 18:42 97.9 08/18/18 16:00 85 08/18/18 15:01 97.9 08/18/18 12:00 93 08/18/18 11:34 97.9 08/18/18 09:00 Room Air 08/18/18 08:15 97.9 08/18/18 08:12 81 138/67 08/18/18 08:00 97.3 81 20 138/67 (90) 95 97.3 08/18/18 08:00 81 08/18/18 04:00 74 08/18/18 04:00 97.9 75 20 122/93 (103) 95 97.9 Intake and Output 08/18/18 08/19/18 19:00 07:00 Intake Total 1340 ml Output Total 950 ml Balance 390 ml Intake Oral 1340 ml Output Urine Total 950 ml Laboratory Tests 08/18/18 06:50: White Blood Count 7.7, Red Blood Count 5.02, Hemoglobin 12.9L, Hematocrit 41.3L , Mean Corpuscular Volume 82, Mean Corpuscular Hemoglobin 25.8L, Mean Corpuscular Hemoglobin Concent 31.3L, Red Cell Distribution Width 16.1H, Platelet Count 299, Mean Platelet Volume 6.6, Neutrophils (%) (Auto) 83.7H, Lymphocytes (%) (Auto) 12.9L, Monocytes (%) (Auto) 2.8, Eosinophils (%) (Auto) 0.0, Basophils (%) (Auto) 0.6, Sodium Level 139, Potassium Level 4.6, Chloride Level 107, Carbon Dioxide Level 22, Anion Gap 10, Blood Urea Nitrogen 23H, Creatinine 1.5H, Estimat Glomerular Filtration Rate 56.4, Glucose Level 203#H, Calcium Level 7.9L, Total Bilirubin 0.3, Aspartate Amino Transf (AST/SGOT) 12L, Alanine Aminotransferase (ALT/SGPT) 17, Alkaline Phosphatase 93, Total Protein 6.5, Albumin 2.8L, Globulin 3.7, Albumin/Globulin Ratio 0.8L Height (Feet): 6 Height (Inches): 1.00 Weight (Pounds): 130 General Appearance: no apparent distress, alert Neurologic: oriented x 3, responsive, depressed affect Rachael Buckley MD Aug 19, 2018 00:04
[2018-08-19 04:00] VITALS: BP 124/73
[2018-08-19 08:00] VITALS: BP 145/66
[2018-08-19 08:26] LABS: CHOLESTEROL 163 MG/DL (< 200); HDL CHOLESTEROL 63 MG/DL (40-60); TRIGLYCERIDES 120 MG/DL (30-150)
--- NOTE | 2018-08-19 08:35 | Infectious Diseases Prog Note ---
Assessment/Plan Assessment/Plan URI - Viral vs Bacterial SOB resolved Fevers Resolved Nausea resolved Diarrhea resolved Chest pain - Improved Has two wire from sternotomy coming out of skin Hx - Hep C HTN COPD Stomach ulcers Seizures CAD s/p Stent and CABG A: - Continue Azithromycin #2/5 (End date 08/22/18) - D/C Cefepime and vancomycin - Surgery eval of sternotomy wires - Monitor CBC and Temps - Supportive care We will continue to follow the patient during this hospitalization. Subjective Allergies: Coded Allergies: EGG (Verified Allergy, Unknown, 08/17/18) MEPERIDINE (Verified Allergy, Unknown, 08/17/18) NITROGLYCERIN (Verified Allergy, Unknown, hives, 08/17/18) Subjective Patient with some cough Afebrile Objective Vital Signs Last 24 Hour Vital Signs Date Time Temp Pulse Resp B/P (MAP) Pulse Ox O2 Delivery O2 Flow Rate FiO2 08/19/18 04:00 96.6 95 17 124/73 (90) 96 96.6 08/19/18 04:00 92 08/19/18 00:00 97.7 87 16 119/65 (83) 96 97.7 08/19/18 00:00 93 08/18/18 23:21 83 20 95 Room Air 21 08/18/18 23:21 83 20 Room Air 21 08/18/18 21:00 Room Air 08/18/18 20:00 91 08/18/18 20:00 98.0 91 18 128/75 (92) 95 98.0 08/18/18 19:12 97.9 08/18/18 18:42 97.9 08/18/18 16:00 85 08/18/18 15:01 97.9 08/18/18 12:00 93 08/18/18 11:34 97.9 08/18/18 09:00 Room Air Height (Feet): 6 Height (Inches): 1.00 Weight (Pounds): 130 Objective Gen: NAD, well appearing on RA HEENT: NCAT, MMM, EOMI, no scleral icterus LUNGS: CTAB, No W, Sternotomy wire coming out of skin at sternum - (No E/P) CARDS: RRR, S1, S2, No M/R/G ABD: Soft, NT, ND, No R/G, + BS, No HSM, No Masses Ext: C/C/E, Pulses 2+ B/L (DP, Rad), Left foot with shallow ulcer. No erythema or purulence NEURO: A/O x 4, Strength and Sensation Grossly intact Microbiology Date/Time Source Procedure Growth Status 08/17/18 17:30 Blood Blood Culture - Preliminary NO GROWTH AFTER 24 HOURS Resulted 08/17/18 17:30 Blood Blood Culture - Preliminary NO GROWTH AFTER 24 HOURS Resulted Laboratory Tests Test 08/19/18 07:20 Troponin I 0.010 ng/mL (0.000-0.056) Pro-B-Type Natriuretic Peptide 735 pg/mL (0-125) H Triglycerides Level 120 MG/DL (30-150) Cholesterol Level 163 MG/DL (< 200) LDL Cholesterol 82 mg/dL (<100) HDL Cholesterol 63 MG/DL (40-60) H Cholesterol/HDL Ratio 2.6 (3.3-4.4) L Current Medications Medications (Trade) Dose Ordered Sig/Aminata Route PRN Reason Start Time Stop Time Status Last Admin Dose Admin Acetaminophen (Tylenol) 650 mg Q4H PRN ORAL fever (temp>100.5F) 08/17/18 20:45 09/16/18 20:44 Albuterol/ Ipratropium (Albuterol/ Ipratropium) 3 ml Q4H PRN HHN Shortness of Breath 08/17/18 20:45 08/22/18 20:44 08/18/18 23:21 Amlodipine Besylate (Norvasc) 10 mg DAILY ORAL 08/18/18 09:00 09/17/18 08:59 08/18/18 08:12 Aspirin (Ecotrin) 81 mg DAILY ORAL 08/19/18 09:00 09/18/18 08:59 Atorvastatin Calcium (Lipitor) 20 mg BEDTIME ORAL 08/18/18 21:00 09/17/18 20:59 08/18/18 21:50 Azithromycin (Zithromax) 250 mg DAILY ORAL 08/18/18 10:15 08/22/18 10:14 08/18/18 11:33 Clopidogrel Bisulfate (Plavix) 75 mg DAILY ORAL 08/18/18 09:00 09/17/18 08:59 08/18/18 08:11 Dextrose (Dextrose 50%) 25 ml STAT PRN IV Hypoglycemia 08/17/18 21:15 09/16/18 21:14 Dextrose (Dextrose 50%) 50 ml STAT PRN IV Hypoglycemia 08/17/18 20:45 09/16/18 20:44 Heparin Sodium (Porcine) (Heparin 5000 units/ml) 5,000 units EVERY 12 HOURS SUBQ 08/17/18 21:00 09/16/18 20:59 08/18/18 21:51 Hydromorphone HCl (Dilaudid) 2 mg Q3H PRN IVP Severe Pain (Pain Scale 7-10) 08/17/18 22:15 08/24/18 22:14 08/19/18 07:17 Levetiracetam (Keppra) 500 mg Q12HR ORAL 08/17/18 21:00 09/16/18 20:59 08/18/18 21:49 Mirtazapine (Remeron) 30 mg BEDTIME ORAL 08/19/18 21:00 09/18/18 20:59 Morphine Sulfate (Morphine Sulfate) 2 mg Q4H PRN IVP Moderate Pain (Pain Scale 4-6) 08/17/18 20:45 08/24/18 20:44 Ondansetron HCl (Zofran) 4 mg Q6H PRN IVP Nausea & Vomiting 08/17/18 20:45 09/16/18 20:44 Polyethylene Glycol (Miralax) 17 gm DAILYPRN PRN ORAL Constipation 08/17/18 20:45 09/16/18 20:44 Temazepam (Restoril) 15 mg HSPRN PRN ORAL Insomnia 08/17/18 20:45 08/24/18 20:44 Theophylline (Wilfrido-Dur) 100 mg EVERY 12 HOURS ORAL 08/17/18 21:00 09/16/18 20:59 08/18/18 21:49 Adonis Lozoya MD Aug 19, 2018 08:35
[2018-08-19] MEDS: Aspirin EC 81mg tab ORAL SCH (08:50)
[2018-08-19] MEDS: Azithromycin 250mg tab ORAL SCH (08:50)
[2018-08-19] MEDS: Theophylline ER 100mg ORAL SCH ×2 (08:50→20:49)
[2018-08-19] MEDS: Heparin 5000 units/ml inj SUBQ SCH ×2 (08:51→20:50)
--- NOTE | 2018-08-19 11:15 | Pulmonology Progress Note ---
Assessment/Plan Problems: (1) Acute bronchitis (2) ACS (acute coronary syndrome) (3) COPD exacerbation (4) HTN (hypertension) (5) Severe malnutrition (6) Intractable back pain (7) Chronic ulcer of right leg Assessment/Plan doing better respiratory treatment check electrolytes pain management surgical evaluation for removal of surgical wires of the thoracotomy Subjective ROS Limited/Unobtainable: No Constitutional: Reports: no symptoms HEENT: Repors: no symptoms Respiratory: Reports: no symptoms Allergies: Coded Allergies: EGG (Verified Allergy, Unknown, 08/17/18) MEPERIDINE (Verified Allergy, Unknown, 08/17/18) NITROGLYCERIN (Verified Allergy, Unknown, hives, 08/17/18) Objective Last 24 Hour Vital Signs Date Time Temp Pulse Resp B/P (MAP) Pulse Ox O2 Delivery O2 Flow Rate FiO2 08/19/18 09:00 Room Air 08/19/18 08:50 81 145/66 08/19/18 08:00 93 08/19/18 08:00 97.8 81 18 145/66 (92) 98 97.8 08/19/18 07:50 85 20 Room Air 21 08/19/18 04:00 96.6 95 17 124/73 (90) 96 96.6 08/19/18 04:00 92 08/19/18 00:00 97.7 87 16 119/65 (83) 96 97.7 08/19/18 00:00 93 08/18/18 23:21 83 20 95 Room Air 21 08/18/18 23:21 83 20 Room Air 21 08/18/18 21:00 Room Air 08/18/18 20:00 91 08/18/18 20:00 98.0 91 18 128/75 (92) 95 98.0 08/18/18 19:12 97.9 08/18/18 18:42 97.9 08/18/18 16:00 85 08/18/18 15:01 97.9 08/18/18 12:00 93 08/18/18 11:34 97.9 Intake and Output 08/18/18 08/19/18 19:00 07:00 Intake Total 1340 ml Output Total 950 ml Balance 390 ml Intake Oral 1340 ml Output Urine Total 950 ml General Appearance: WD/WN HEENT: normocephalic, atraumatic Respiratory/Chest: chest wall non-tender, normal breath sounds Cardiovascular: normal peripheral pulses, normal rate Genitourinary: normal external genitalia Extremities: no clubbing Skin: no rash Microbiology Date/Time Source Procedure Growth Status 08/17/18 17:30 Blood Blood Culture - Preliminary NO GROWTH AFTER 24 HOURS Resulted 08/17/18 17:30 Blood Blood Culture - Preliminary NO GROWTH AFTER 24 HOURS Resulted Laboratory Tests 08/19/18 07:20: Troponin I 0.010, Pro-B-Type Natriuretic Peptide 735H, Triglycerides Level 120, Cholesterol Level 163, LDL Cholesterol 82, HDL Cholesterol 63H, Cholesterol/HDL Ratio 2.6L Current Medications Medications (Trade) Dose Ordered Sig/Aminata Route PRN Reason Start Time Stop Time Status Last Admin Dose Admin Acetaminophen (Tylenol) 650 mg Q4H PRN ORAL fever (temp>100.5F) 08/17/18 20:45 09/16/18 20:44 Albuterol/ Ipratropium (Albuterol/ Ipratropium) 3 ml Q4H PRN HHN Shortness of Breath 08/17/18 20:45 08/22/18 20:44 08/18/18 23:21 Amlodipine Besylate (Norvasc) 10 mg DAILY ORAL 08/18/18 09:00 09/17/18 08:59 08/19/18 08:50 Aspirin (Ecotrin) 81 mg DAILY ORAL 08/19/18 09:00 09/18/18 08:59 08/19/18 08:50 Atorvastatin Calcium (Lipitor) 20 mg BEDTIME ORAL 08/18/18 21:00 09/17/18 20:59 08/18/18 21:50 Azithromycin (Zithromax) 250 mg DAILY ORAL 08/18/18 10:15 08/22/18 10:14 08/19/18 08:50 Clopidogrel Bisulfate (Plavix) 75 mg DAILY ORAL 08/18/18 09:00 09/17/18 08:59 08/19/18 08:50 Dextrose (Dextrose 50%) 25 ml STAT PRN IV Hypoglycemia 08/17/18 21:15 09/16/18 21:14 Dextrose (Dextrose 50%) 50 ml STAT PRN IV Hypoglycemia 08/17/18 20:45 09/16/18 20:44 Heparin Sodium (Porcine) (Heparin 5000 units/ml) 5,000 units EVERY 12 HOURS SUBQ 9/24/18 21:00 09/16/18 20:59 08/18/18 21:51 Hydromorphone HCl (Dilaudid) 2 mg Q3H PRN IVP Severe Pain (Pain Scale 7-10) 08/17/18 22:15 08/24/18 22:14 08/19/18 10:19 Levetiracetam (Keppra) 500 mg Q12HR ORAL 08/17/18 21:00 09/16/18 20:59 08/19/18 08:50 Mirtazapine (Remeron) 30 mg BEDTIME ORAL 08/19/18 21:00 09/18/18 20:59 Morphine Sulfate (Morphine Sulfate) 2 mg Q4H PRN IVP Moderate Pain (Pain Scale 4-6) 08/17/18 20:45 08/24/18 20:44 Ondansetron HCl (Zofran) 4 mg Q6H PRN IVP Nausea & Vomiting 08/17/18 20:45 09/16/18 20:44 Polyethylene Glycol (Miralax) 17 gm DAILYPRN PRN ORAL Constipation 08/17/18 20:45 09/16/18 20:44 Temazepam (Restoril) 15 mg HSPRN PRN ORAL Insomnia 08/17/18 20:45 08/24/18 20:44 Theophylline (Wilfrido-Dur) 100 mg EVERY 12 HOURS ORAL 08/17/18 21:00 09/16/18 20:59 08/19/18 08:50 Jessie Magana MD Aug 19, 2018 11:15
--- NOTE | 2018-08-19 11:25 | Cardiology Progress Note ---
Assessment/Plan Assessment/Plan 1. Atypical chest pain. The patient was ruled out for myocardial infarction. Cardiac catheterization no target for revascularization We will treat the patient medically with combination of aspirin, Plavix and Lipitor. Add Lopressor 25 bid 2. Hypertension, on Norvasc 10 mg daily. 3. COPD. 4. Right ankle ulcer.On Abx 5. Seizures, on Keppra. 6. Sternotomy emelia eroding. Surgery consult pending DW RN Subjective Subjective Awaiting surgery to evaluate him for sternotomy emelia that almost eroding thru the skin. No SOB. Seen with RN present Objective Last 24 Hour Vital Signs Date Time Temp Pulse Resp B/P (MAP) Pulse Ox O2 Delivery O2 Flow Rate FiO2 08/19/18 09:00 Room Air 08/19/18 08:50 81 145/66 08/19/18 08:00 93 08/19/18 08:00 97.8 81 18 145/66 (92) 98 97.8 08/19/18 07:50 85 20 Room Air 21 08/19/18 04:00 96.6 95 17 124/73 (90) 96 96.6 08/19/18 04:00 92 08/19/18 00:00 97.7 87 16 119/65 (83) 96 97.7 08/19/18 00:00 93 08/18/18 23:21 83 20 95 Room Air 21 08/18/18 23:21 83 20 Room Air 21 08/18/18 21:00 Room Air 08/18/18 20:00 91 08/18/18 20:00 98.0 91 18 128/75 (92) 95 98.0 08/18/18 19:12 97.9 08/18/18 18:42 97.9 08/18/18 16:00 85 08/18/18 15:01 97.9 08/18/18 12:00 93 08/18/18 11:34 97.9 Intake and Output 08/18/18 08/19/18 19:00 07:00 Intake Total 1340 ml Output Total 950 ml Balance 390 ml Intake Oral 1340 ml Output Urine Total 950 ml Laboratory Tests Test 08/19/18 07:20 Troponin I 0.010 ng/mL (0.000-0.056) Pro-B-Type Natriuretic Peptide 735 pg/mL (0-125) H Triglycerides Level 120 MG/DL (30-150) Cholesterol Level 163 MG/DL (< 200) LDL Cholesterol 82 mg/dL (<100) HDL Cholesterol 63 MG/DL (40-60) H Cholesterol/HDL Ratio 2.6 (3.3-4.4) L Microbiology Date/Time Source Procedure Growth Status 08/17/18 17:30 Blood Blood Culture - Preliminary NO GROWTH AFTER 24 HOURS Resulted 08/17/18 17:30 Blood Blood Culture - Preliminary NO GROWTH AFTER 24 HOURS Resulted Objective HEAD AND NECK: Showed no JVD or carotid bruits. LUNGS: Clear. CARDIOVASCULAR: Regular S1 and S2 with no gallop or murmur. Sternotomy is intact but emelia almost eroding thru the skin ABDOMEN: Soft. EXTREMITIES: No pitting edema. Right ankle ulcer. Neal Ames MD Aug 19, 2018 11:25
--- NOTE | 2018-08-19 11:47 | General Progress Note ---
Assessment/Plan Status: stable Assessment/Plan mdd anxiety Remeron 45 mg qhs ativan prn Subjective Date patient seen: Aug 19, 2018 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: Reports: anxiety, depressed, emotional problems Allergies: Coded Allergies: EGG (Verified Allergy, Unknown, 08/17/18) MEPERIDINE (Verified Allergy, Unknown, 08/17/18) NITROGLYCERIN (Verified Allergy, Unknown, hives, 08/17/18) Subjective the pt is irritable and angry. the pt has multiple illogical complaints. the pt is dependent to pain meds. The pt made threatening statement about Dr. Reyna. Objective Last 24 Hour Vital Signs Date Time Temp Pulse Resp B/P (MAP) Pulse Ox O2 Delivery O2 Flow Rate FiO2 08/19/18 09:00 Room Air 08/19/18 08:50 81 145/66 08/19/18 08:00 93 08/19/18 08:00 97.8 81 18 145/66 (92) 98 97.8 08/19/18 07:50 85 20 Room Air 21 08/19/18 04:00 96.6 95 17 124/73 (90) 96 96.6 08/19/18 04:00 92 08/19/18 00:00 97.7 87 16 119/65 (83) 96 97.7 08/19/18 00:00 93 08/18/18 23:21 83 20 95 Room Air 21 08/18/18 23:21 83 20 Room Air 21 08/18/18 21:00 Room Air 08/18/18 20:00 91 08/18/18 20:00 98.0 91 18 128/75 (92) 95 98.0 08/18/18 19:12 97.9 08/18/18 18:42 97.9 08/18/18 16:00 85 08/18/18 15:01 97.9 08/18/18 12:00 93 Intake and Output 08/18/18 08/19/18 19:00 07:00 Intake Total 1340 ml Output Total 950 ml Balance 390 ml Intake Oral 1340 ml Output Urine Total 950 ml Laboratory Tests 08/19/18 07:20: Troponin I 0.010, Pro-B-Type Natriuretic Peptide 735H, Triglycerides Level 120, Cholesterol Level 163, LDL Cholesterol 82, HDL Cholesterol 63H, Cholesterol/HDL Ratio 2.6L Height (Feet): 6 Height (Inches): 1.00 Weight (Pounds): 130 General Appearance: no apparent distress, alert Neurologic: oriented x 3, responsive, depressed affect Rachael Buckley MD Aug 19, 2018 11:47
[2018-08-19 12:00] VITALS: BP_SYST 140; BP_SYST 157; BP_DIAS 74; BP_DIAS 87
[2018-08-19] MEDS: Albuterol/Ipratropium 3ml neb HHN PRN (12:54)
--- NOTE | 2018-08-19 13:14 | Consultation ---
History of Present Illness General Date patient seen: Aug 19, 2018 Chief Complaint: Chest Pain Reason for Consultation: sternal pain Present Illness HPI 67 year old male well known to me from prior hospitalizations presented complaining of worsening sternal chest pain. Hx of open heart surgery >10 years ago. Sternal wires noted years back. He has lost weight over the years and as he has thinned out the sternal wires have become more prevalent. Multiple wires noted and most do not bother him except the lower portion of the sternum where a wire is protruding through the skin and causing skin ulceration. Pain with palpation. no drainage. no signs of infection. wire palpable around skin ulceration. surgery called to evaluate. patient seen, chart reviewed, patient examined. Allergies: Coded Allergies: EGG (Verified Allergy, Unknown, 08/17/18) MEPERIDINE (Verified Allergy, Unknown, 08/17/18) NITROGLYCERIN (Verified Allergy, Unknown, hives, 08/17/18) Medication History Scheduled Amlodipine Besylate* (Amlodipine Besylate*), 10 MG ORAL DAILY, (Reported) Cephalexin* (Keflex*), 500 MG ORAL EVERY 8 HOURS, (Reported) Clopidogrel Bisulfate* (Plavix*), 75 MG ORAL DAILY, (Reported) Hydromorphone Hcl (Hydromorphone Hcl), 8 MG PO Q6HR, (Reported) Levetiracetam (Keppra), 500 MG ORAL DAILY, (Reported) Metoprolol Succinate* (Metoprolol Succinate*), 50 MG ORAL BID, (Reported) Mirtazapine* (Remeron*), 15 MG ORAL BEDTIME, (Reported) Ranitidine Hcl* (Zantac*), 150 MG ORAL Q12HR Theophylline (Theodur*), 100 MG ORAL EVERY 12 HOURS Scheduled PRN Albuterol Sulfate (Ventolin Hfa), 1 PUFF INH EVERY 6 HOURS PRN Docusate Sodium* (Colace*), 100 MG ORAL DAILY PRN for Constipation, (Reported) Ondansetron Hcl* (Zofran*), 8 MG ORAL Q6H PRN for Nausea & Vomiting, (Reported) Oxycodone Hcl/Acetaminophen 10-325* (Oxycodone-Acetaminophen 10-325*), 1 TAB ORAL Q4H PRN for For Pain, (Reported) Patient History History Provided By: Patient, Medical Record, PMD Healthcare decision maker Resuscitation status Full Code Advanced Directive on File Past Medical/Surgical History Past Medical/Surgical History: (1) Emphysema lung (2) Atypical chest pain (3) Cardiac dysrhythmia (4) Decubitus ulcer, ankle, right, unstageable (5) ACS (acute coronary syndrome) (6) Esophagitis (7) Odynophagia (8) Hyperkalemia (9) Shingles (10) CAD (coronary artery disease) (11) Gastroenteritis (12) Hypothyroidism (13) Seizure disorder (14) Syncope (15) Peripheral vascular disease (16) Acute bronchitis (17) ATN (acute tubular necrosis) (18) Pneumonia (19) Severe malnutrition (20) HTN (hypertension) (21) Vikki esophagitis (22) COPD exacerbation (23) Peripheral arterial disease (24) FTT (failure to thrive) in adult (25) Acute on chronic renal failure (26) Hip dislocation, right (27) Osteomyelitis of right leg (28) Cellulitis of right leg (29) Chronic ulcer of right leg (30) Acute encephalopathy (31) Intractable back pain (32) Closed fracture of tibia and fibula with malunion (33) Nonhealing ulcer of right lower extremity (34) Osteomyelitis of right lower extremity Review of Systems All Other Systems: negative except mentioned in HPI Physical Exam General Appearance: no apparent distress Lines, tubes and drains: peripheral HEENT: normocephalic, mucous membranes moist Neck: supple, normal inspection Respiratory/Chest: lungs clear, normal breath sounds, no respiratory distress, no accessory muscle use, other Cardiovascular/Chest: normal peripheral pulses, normal rate, regular rhythm Abdomen: normal bowel sounds, non tender, soft, no organomegaly, no mass Extremities: non-tender, normal inspection, other Skin Exam: other - right lateral distal left wound improved as compared to prior. Neurologic: alert, oriented x 3 Last 24 Hour Vital Signs Date Time Temp Pulse Resp B/P (MAP) Pulse Ox O2 Delivery O2 Flow Rate FiO2 08/19/18 13:00 83 16 100 Room Air 21 08/19/18 12:51 80 18 95 Room Air 21 08/19/18 09:00 Room Air 08/19/18 08:50 81 145/66 08/19/18 08:00 93 08/19/18 08:00 97.8 81 18 145/66 (92) 98 97.8 08/19/18 07:50 85 20 Room Air 21 08/19/18 04:00 96.6 95 17 124/73 (90) 96 96.6 08/19/18 04:00 92 08/19/18 00:00 97.7 87 16 119/65 (83) 96 97.7 08/19/18 00:00 93 08/18/18 23:21 83 20 95 Room Air 21 08/18/18 23:21 83 20 Room Air 21 08/18/18 21:00 Room Air 08/18/18 20:00 91 08/18/18 20:00 98.0 91 18 128/75 (92) 95 98.0 08/18/18 19:12 97.9 08/18/18 18:42 97.9 08/18/18 16:00 85 08/18/18 15:01 97.9 Intake and Output 08/18/18 08/19/18 19:00 07:00 Intake Total 1340 ml Output Total 950 ml Balance 390 ml Intake Oral 1340 ml Output Urine Total 950 ml Laboratory Tests Test 08/19/18 07:20 Troponin I 0.010 ng/mL (0.000-0.056) Pro-B-Type Natriuretic Peptide 735 pg/mL (0-125) H Triglycerides Level 120 MG/DL (30-150) Cholesterol Level 163 MG/DL (< 200) LDL Cholesterol 82 mg/dL (<100) HDL Cholesterol 63 MG/DL (40-60) H Cholesterol/HDL Ratio 2.6 (3.3-4.4) L Height (Feet): 6 Height (Inches): 1.00 Weight (Pounds): 130 Medications Current Medications Medications (Trade) Dose Ordered Sig/Aminata Route PRN Reason Start Time Stop Time Status Last Admin Dose Admin Acetaminophen (Tylenol) 650 mg Q4H PRN ORAL fever (temp>100.5F) 08/17/18 20:45 09/16/18 20:44 Albuterol/ Ipratropium (Albuterol/ Ipratropium) 3 ml Q4H PRN HHN Shortness of Breath 08/17/18 20:45 08/22/18 20:44 08/19/18 12:54 Amlodipine Besylate (Norvasc) 10 mg DAILY ORAL 08/18/18 09:00 09/17/18 08:59 08/19/18 08:50 Aspirin (Ecotrin) 81 mg DAILY ORAL 08/19/18 09:00 09/18/18 08:59 08/19/18 08:50 Atorvastatin Calcium (Lipitor) 20 mg BEDTIME ORAL 08/18/18 21:00 09/17/18 20:59 08/18/18 21:50 Azithromycin (Zithromax) 250 mg DAILY ORAL 08/18/18 10:15 08/22/18 10:14 08/19/18 08:50 Clopidogrel Bisulfate (Plavix) 75 mg DAILY ORAL 08/18/18 09:00 09/17/18 08:59 08/19/18 08:50 Dextrose (Dextrose 50%) 25 ml STAT PRN IV Hypoglycemia 08/17/18 21:15 09/16/18 21:14 Dextrose (Dextrose 50%) 50 ml STAT PRN IV Hypoglycemia 08/17/18 20:45 09/16/18 20:44 Heparin Sodium (Porcine) (Heparin 5000 units/ml) 5,000 units EVERY 12 HOURS SUBQ 08/17/18 21:00 09/16/18 20:59 08/18/18 21:51 Hydromorphone HCl (Dilaudid) 2 mg Q3H PRN IVP Severe Pain (Pain Scale 7-10) 08/17/18 22:15 08/24/18 22:14 08/19/18 10:19 Levetiracetam (Keppra) 500 mg Q12HR ORAL 08/17/18 21:00 09/16/18 20:59 08/19/18 08:50 Metoprolol Tartrate (Lopressor) 25 mg Q12HR ORAL 08/19/18 21:00 09/18/18 20:59 Mirtazapine (Remeron) 45 mg BEDTIME ORAL 08/19/18 21:00 09/18/18 20:59 Morphine Sulfate (Morphine Sulfate) 2 mg Q4H PRN IVP Moderate Pain (Pain Scale 4-6) 08/17/18 20:45 08/24/18 20:44 Ondansetron HCl (Zofran) 4 mg Q6H PRN IVP Nausea & Vomiting 08/17/18 20:45 09/16/18 20:44 Polyethylene Glycol (Miralax) 17 gm DAILYPRN PRN ORAL Constipation 08/17/18 20:45 09/16/18 20:44 Temazepam (Restoril) 15 mg HSPRN PRN ORAL Insomnia 08/17/18 20:45 08/24/18 20:44 Theophylline (Wilfrido-Dur) 100 mg EVERY 12 HOURS ORAL 08/17/18 21:00 09/16/18 20:59 08/19/18 08:50 Assessment/Plan Status: stable Ugo Simms Aug 19, 2018 13:14
[2018-08-19 16:00] VITALS: BP 126/69
--- NOTE | 2018-08-19 17:12 | Internal Med Progress Note ---
Subjective Date of Service: Aug 19, 2018 Physician Name Shantanu Reyna Attending Physician Phil Wright MD Current Medications Medications (Trade) Dose Ordered Sig/Aminata Route PRN Reason Start Time Stop Time Status Last Admin Dose Admin Acetaminophen (Tylenol) 650 mg Q4H PRN ORAL fever (temp>100.5F) 08/17/18 20:45 09/16/18 20:44 Albuterol/ Ipratropium (Albuterol/ Ipratropium) 3 ml Q4H PRN HHN Shortness of Breath 08/17/18 20:45 08/22/18 20:44 08/19/18 12:54 Amlodipine Besylate (Norvasc) 10 mg DAILY ORAL 08/18/18 09:00 09/17/18 08:59 08/19/18 08:50 Aspirin (Ecotrin) 81 mg DAILY ORAL 08/19/18 09:00 09/18/18 08:59 08/19/18 08:50 Atorvastatin Calcium (Lipitor) 20 mg BEDTIME ORAL 08/18/18 21:00 09/17/18 20:59 08/18/18 21:50 Azithromycin (Zithromax) 250 mg DAILY ORAL 08/18/18 10:15 08/22/18 10:14 08/19/18 08:50 Clopidogrel Bisulfate (Plavix) 75 mg DAILY ORAL 08/18/18 09:00 09/17/18 08:59 08/19/18 08:50 Dextrose (Dextrose 50%) 25 ml STAT PRN IV Hypoglycemia 08/17/18 21:15 09/16/18 21:14 Dextrose (Dextrose 50%) 50 ml STAT PRN IV Hypoglycemia 08/17/18 20:45 09/16/18 20:44 Heparin Sodium (Porcine) (Heparin 5000 units/ml) 5,000 units EVERY 12 HOURS SUBQ 08/17/18 21:00 09/16/18 20:59 08/18/18 21:51 Hydromorphone HCl (Dilaudid) 2 mg Q3H PRN IVP Severe Pain (Pain Scale 7-10) 08/17/18 22:15 08/24/18 22:14 08/19/18 13:49 Levetiracetam (Keppra) 500 mg Q12HR ORAL 08/17/18 21:00 09/16/18 20:59 08/19/18 08:50 Metoprolol Tartrate (Lopressor) 25 mg Q12HR ORAL 08/19/18 21:00 09/18/18 20:59 Mirtazapine (Remeron) 45 mg BEDTIME ORAL 08/19/18 21:00 09/18/18 20:59 Morphine Sulfate (Morphine Sulfate) 2 mg Q4H PRN IVP Moderate Pain (Pain Scale 4-6) 08/17/18 20:45 08/24/18 20:44 Ondansetron HCl (Zofran) 4 mg Q6H PRN IVP Nausea & Vomiting 08/17/18 20:45 09/16/18 20:44 Polyethylene Glycol (Miralax) 17 gm DAILYPRN PRN ORAL Constipation 08/17/18 20:45 09/16/18 20:44 Temazepam (Restoril) 15 mg HSPRN PRN ORAL Insomnia 08/17/18 20:45 08/24/18 20:44 Theophylline (Wilfrido-Dur) 100 mg EVERY 12 HOURS ORAL 08/17/18 21:00 09/16/18 20:59 08/19/18 08:50 Allergies: Coded Allergies: EGG (Verified Allergy, Unknown, 08/17/18) MEPERIDINE (Verified Allergy, Unknown, 08/17/18) NITROGLYCERIN (Verified Allergy, Unknown, hives, 08/17/18) ROS Limited/Unobtainable: No Constitutional: Reports: no symptoms HEENT: Reports: no symptoms Cardiovascular: Reports: chest pain Respiratory: Reports: no symptoms Gastrointestinal/Abdominal: Reports: no symptoms Genitourinary: Reports: no symptoms 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: Reports: no symptoms Subjective 67 YO M admitted with chest pain and dyspnea. Now CHF. Cover for Int Wilfred-Dr Wright Objective Last Vital Signs Date Time Temp Pulse Resp B/P (MAP) Pulse Ox O2 Delivery O2 Flow Rate FiO2 08/19/18 16:00 104 08/19/18 16:00 97.5 18 126/69 (88) 99 97.5 08/19/18 13:00 Room Air 21 General Appearance: WD/WN, no apparent distress, alert, thin EENT: PERRL/EOMI, normal ENT inspection Neck: non-tender, normal alignment, supple Cardiovascular: normal peripheral pulses, normal rate, regular rhythm, no gallop/murmur, no JVD Respiratory/Chest: chest wall non-tender, lungs clear, normal breath sounds, no respiratory distress, no accessory muscle use Abdomen: normal bowel sounds, non tender, soft, no organomegaly, no mass Extremities: normal range of motion, non-tender Neurologic: scaler II-XII grossly normal, no motor/sensory deficits Skin: normal pigmentation, warm/dry Laboratory Tests Test 08/19/18 07:20 Troponin I 0.010 ng/mL (0.000-0.056) Pro-B-Type Natriuretic Peptide 735 pg/mL (0-125) H Triglycerides Level 120 MG/DL (30-150) Cholesterol Level 163 MG/DL (< 200) LDL Cholesterol 82 mg/dL (<100) HDL Cholesterol 63 MG/DL (40-60) H Cholesterol/HDL Ratio 2.6 (3.3-4.4) L Microbiology Date/Time Source Procedure Growth Status 08/17/18 17:30 Blood Blood Culture - Preliminary NO GROWTH AFTER 24 HOURS Resulted 08/17/18 17:30 Blood Blood Culture - Preliminary NO GROWTH AFTER 24 HOURS Resulted Intake and Output 08/18/18 08/19/18 19:00 07:00 Intake Total 1340 ml Output Total 950 ml Balance 390 ml Intake Oral 1340 ml Output Urine Total 950 ml Assessment/Plan Problem List: (1) CHF (congestive heart failure) Assessment & Plan: see cardiology note. (2) Atypical chest pain Assessment & Plan: Rulled out for AL by troponin (3) CAD (coronary artery disease) Assessment & Plan: see cardiology note. add lopressor (4) Chronic ulcer of right leg (5) COPD exacerbation Assessment & Plan: continue azitrhomycin per pulmonary (6) HTN (hypertension) Assessment & Plan: continue lopressor and norvasc (7) Seizure disorder Status: progressing Shantanu Reyna MD Aug 19, 2018 17:12
[2018-08-19 20:00] VITALS: BP 140/70
[2018-08-19] MEDS: Atorvastatin 20mg tab ORAL SCH (20:48)
[2018-08-19] MEDS: Metoprolol 25mg tab ORAL SCH (20:48)
[2018-08-20] VITALS: BP 134/62
[2018-08-20 04:00] VITALS: BP 137/71
[2018-08-20 07:32] LABS: BASOPHILS % (AUTO) 1.8 % (0.0-2.0); EOSINOPHILS % (AUTO) 4.6 % (0.0-3.0); HEMATOCRIT 39.5 % (42.0-52.0); HEMOGLOBIN 12.3 G/DL (14.2-18.0); LYMPHOCYTES % (AUTO) 36.6 % (20.0-45.0); MEAN CORPUSCULAR VOLUME 83 FL (80-99); MONOCYTES % (AUTO) 11.3 % (1.0-10.0); NEUTROPHILS % (AUTO) 45.8 % (45.0-75.0); PLATELET COUNT 274 K/UL (150-450); RED BLOOD COUNT 4.77 M/UL (4.70-6.10); RED CELL DISTRIBUTION WIDTH 16.8 % (11.6-14.8); WHITE BLOOD COUNT 7.1 K/UL (4.8-10.8)
[2018-08-20 07:49] LABS: ANION GAP 7 mmol/L (5-15); BLOOD UREA NITROGEN 21 mg/dL (7-18); CALCIUM 8.6 MG/DL (8.5-10.1); CARBON DIOXIDE 26 MMOL/L (21-32); CHLORIDE 109 MMOL/L (98-107); CREATININE 1.4 MG/DL (0.55-1.30); POTASSIUM 4.1 MMOL/L (3.5-5.1); SODIUM 142 MMOL/L (136-145)
[2018-08-20 08:00] VITALS: BP 134/65
[2018-08-20] MEDS: Azithromycin 250mg tab ORAL SCH (09:13)
[2018-08-20] MEDS: Aspirin EC 81mg tab ORAL SCH (09:13)
[2018-08-20] MEDS: Metoprolol 25mg tab ORAL SCH ×2 (09:14→21:09)
[2018-08-20] MEDS: Theophylline ER 100mg ORAL SCH ×2 (09:14→21:09)
[2018-08-20] MEDS: Heparin 5000 units/ml inj SUBQ SCH ×2 (09:15→21:12)
--- NOTE | 2018-08-20 10:25 | Infectious Diseases Prog Note ---
Assessment/Plan Assessment/Plan URI - Viral vs Bacterial SOB resolved Fevers Resolved Nausea resolved Diarrhea resolved Chest pain - Improved Has two wire from sternotomy coming out of skin Hx - Hep C HTN COPD Stomach ulcers Seizures CAD s/p Stent and CABG A: - Continue Azithromycin #3/5 (End date 08/22/18) - S/P Cefepime and vancomycin - Surgery eval of sternotomy wires - Monitor CBC and Temps - Supportive care We will continue to follow the patient during this hospitalization. Subjective Allergies: Coded Allergies: EGG (Verified Allergy, Unknown, 08/17/18) MEPERIDINE (Verified Allergy, Unknown, 08/17/18) NITROGLYCERIN (Verified Allergy, Unknown, hives, 08/17/18) Subjective Patient with some cough but improved Afebrile Objective Vital Signs Last 24 Hour Vital Signs Date Time Temp Pulse Resp B/P (MAP) Pulse Ox O2 Delivery O2 Flow Rate FiO2 08/20/18 09:14 82 137/71 08/20/18 09:14 82 137/71 08/20/18 09:13 97.3 08/20/18 04:00 82 08/20/18 04:00 97.3 80 20 137/71 (93) 95 97.3 08/20/18 00:00 86 08/20/18 00:00 98.1 86 20 134/62 (86) 95 98.1 08/19/18 21:00 Room Air 08/19/18 20:48 109 140/70 08/19/18 20:09 88 18 Room Air 21 08/19/18 20:00 110 08/19/18 20:00 97.5 109 20 140/70 (93) 96 97.5 08/19/18 16:00 104 08/19/18 16:00 97.5 94 18 126/69 (88) 99 97.5 08/19/18 13:00 83 16 100 Room Air 21 08/19/18 12:51 80 18 95 Room Air 21 08/19/18 12:00 99 08/19/18 12:00 97.7 97 18 140/74 (96) 95 97.7 Height (Feet): 6 Height (Inches): 1.00 Weight (Pounds): 130 Objective Gen: NAD, siting in bed HEENT: NCAT, MMM, EOMI, no scleral icterus LUNGS: CTAB, No W, Sternotomy wire coming out of skin at sternum - (No E/P) CARDS: RRR, S1, S2, No M/R/G ABD: Soft, NT, ND, No R/G, + BS, No HSM, No Masses Ext: C/C/E, Pulses 2+ B/L (DP, Rad), Left foot with shallow ulcer. No erythema or purulence NEURO: A/O x 4, Strength and Sensation Grossly intact Microbiology Date/Time Source Procedure Growth Status 08/17/18 17:30 Blood Blood Culture - Preliminary NO GROWTH AFTER 48 HOURS Resulted 08/17/18 17:30 Blood Blood Culture - Preliminary NO GROWTH AFTER 48 HOURS Resulted Laboratory Tests Test 08/20/18 06:00 White Blood Count 7.1 K/UL (4.8-10.8) Red Blood Count 4.77 M/UL (4.70-6.10) Hemoglobin 12.3 G/DL (14.2-18.0) L Hematocrit 39.5 % (42.0-52.0) L Mean Corpuscular Volume 83 FL (80-99) Mean Corpuscular Hemoglobin 25.9 PG (27.0-31.0) L Mean Corpuscular Hemoglobin Concent 31.3 G/DL (32.0-36.0) L Red Cell Distribution Width 16.8 % (11.6-14.8) H Platelet Count 274 K/UL (150-450) Mean Platelet Volume 6.9 FL (6.5-10.1) Neutrophils (%) (Auto) 45.8 % (45.0-75.0) Lymphocytes (%) (Auto) 36.6 % (20.0-45.0) Monocytes (%) (Auto) 11.3 % (1.0-10.0) H Eosinophils (%) (Auto) 4.6 % (0.0-3.0) H Basophils (%) (Auto) 1.8 % (0.0-2.0) Sodium Level 142 MMOL/L (136-145) Potassium Level 4.1 MMOL/L (3.5-5.1) Chloride Level 109 MMOL/L (98-107) H Carbon Dioxide Level 26 MMOL/L (21-32) Anion Gap 7 mmol/L (5-15) Blood Urea Nitrogen 21 mg/dL (7-18) H Creatinine 1.4 MG/DL (0.55-1.30) H Estimat Glomerular Filtration Rate > 60 mL/min (>60) Glucose Level 94 MG/DL (74-106) Calcium Level 8.6 MG/DL (8.5-10.1) Pro-B-Type Natriuretic Peptide 533 pg/mL (0-125) H Current Medications Medications (Trade) Dose Ordered Sig/Aminata Route PRN Reason Start Time Stop Time Status Last Admin Dose Admin Acetaminophen (Tylenol) 650 mg Q4H PRN ORAL fever (temp>100.5F) 08/17/18 20:45 09/16/18 20:44 Albuterol/ Ipratropium (Albuterol/ Ipratropium) 3 ml Q4H PRN HHN Shortness of Breath 08/17/18 20:45 08/22/18 20:44 08/19/18 12:54 Amlodipine Besylate (Norvasc) 10 mg DAILY ORAL 08/18/18 09:00 09/17/18 08:59 08/20/18 09:14 Aspirin (Ecotrin) 81 mg DAILY ORAL 08/19/18 09:00 09/18/18 08:59 08/20/18 09:13 Atorvastatin Calcium (Lipitor) 20 mg BEDTIME ORAL 08/18/18 21:00 09/17/18 20:59 08/19/18 20:48 Azithromycin (Zithromax) 250 mg DAILY ORAL 08/18/18 10:15 08/22/18 10:14 08/20/18 09:13 Clopidogrel Bisulfate (Plavix) 75 mg DAILY ORAL 08/18/18 09:00 09/17/18 08:59 08/20/18 09:14 Dextrose (Dextrose 50%) 25 ml STAT PRN IV Hypoglycemia 08/17/18 21:15 09/16/18 21:14 Dextrose (Dextrose 50%) 50 ml STAT PRN IV Hypoglycemia 08/17/18 20:45 09/16/18 20:44 Heparin Sodium (Porcine) (Heparin 5000 units/ml) 5,000 units EVERY 12 HOURS SUBQ 08/17/18 21:00 09/16/18 20:59 08/20/18 09:15 Hydromorphone HCl (Dilaudid) 2 mg Q3H PRN IVP Severe Pain (Pain Scale 7-10) 08/17/18 22:15 08/24/18 22:14 08/20/18 09:13 Levetiracetam (Keppra) 500 mg Q12HR ORAL 08/17/18 21:00 09/16/18 20:59 08/20/18 09:14 Metoprolol Tartrate (Lopressor) 25 mg Q12HR ORAL 08/19/18 21:00 09/18/18 20:59 08/20/18 09:14 Mirtazapine (Remeron) 45 mg BEDTIME ORAL 08/19/18 21:00 09/18/18 20:59 08/19/18 20:48 Morphine Sulfate (Morphine Sulfate) 2 mg Q4H PRN IVP Moderate Pain (Pain Scale 4-6) 08/17/18 20:45 08/24/18 20:44 Ondansetron HCl (Zofran) 4 mg Q6H PRN IVP Nausea & Vomiting 08/17/18 20:45 09/16/18 20:44 Polyethylene Glycol (Miralax) 17 gm DAILYPRN PRN ORAL Constipation 08/17/18 20:45 09/16/18 20:44 Temazepam (Restoril) 15 mg HSPRN PRN ORAL Insomnia 08/17/18 20:45 08/24/18 20:44 Theophylline (Wilfrido-Dur) 100 mg EVERY 12 HOURS ORAL 08/17/18 21:00 09/16/18 20:59 08/20/18 09:14 Adonis Lozoya MD Aug 20, 2018 10:25
[2018-08-20] MEDS: Albuterol/Ipratropium 3ml neb HHN PRN ×2 (10:35→17:30)
--- NOTE | 2018-08-20 11:21 | Pulmonology Progress Note ---
Assessment/Plan Problems: (1) Acute bronchitis (2) ACS (acute coronary syndrome) (3) COPD exacerbation (4) HTN (hypertension) (5) Severe malnutrition (6) Intractable back pain (7) Chronic ulcer of right leg Assessment/Plan no new complains respiratory treatment check electrolytes pain management surgical evaluation for removal of surgical wires of the thoracotomy all reviewed Subjective ROS Limited/Unobtainable: No Constitutional: Reports: no symptoms HEENT: Repors: no symptoms Allergies: Coded Allergies: EGG (Verified Allergy, Unknown, 08/17/18) MEPERIDINE (Verified Allergy, Unknown, 08/17/18) NITROGLYCERIN (Verified Allergy, Unknown, hives, 08/17/18) Objective Last 24 Hour Vital Signs Date Time Temp Pulse Resp B/P (MAP) Pulse Ox O2 Delivery O2 Flow Rate FiO2 08/20/18 10:42 81 16 98 Room Air 21 08/20/18 10:32 84 18 Room Air 21 08/20/18 10:32 84 16 96 Room Air 21 08/20/18 09:43 97.3 08/20/18 09:14 82 137/71 08/20/18 09:14 82 137/71 08/20/18 09:13 97.3 08/20/18 04:00 82 08/20/18 04:00 97.3 80 20 137/71 (93) 95 97.3 08/20/18 00:00 86 08/20/18 00:00 98.1 86 20 134/62 (86) 95 98.1 08/19/18 21:00 Room Air 08/19/18 20:48 109 140/70 08/19/18 20:09 88 18 Room Air 21 08/19/18 20:00 110 08/19/18 20:00 97.5 109 20 140/70 (93) 96 97.5 08/19/18 16:00 104 08/19/18 16:00 97.5 94 18 126/69 (88) 99 97.5 08/19/18 13:00 83 16 100 Room Air 21 08/19/18 12:51 80 18 95 Room Air 21 08/19/18 12:00 99 08/19/18 12:00 97.7 97 18 140/74 (96) 95 97.7 Intake and Output 08/19/18 08/20/18 19:00 07:00 Intake Total 840 ml 400 ml Output Total 1100 ml 400 ml Balance -260 ml 0 ml Intake Oral 840 ml 400 ml Output Urine Total 1100 ml 400 ml # Voids 5 # Bowel Movements 2 General Appearance: WD/WN HEENT: normocephalic, atraumatic Respiratory/Chest: chest wall non-tender, lungs clear Cardiovascular: normal peripheral pulses, regular rhythm Abdomen: normal bowel sounds, soft, non tender, no organomegaly Microbiology Date/Time Source Procedure Growth Status 08/17/18 17:30 Blood Blood Culture - Preliminary NO GROWTH AFTER 48 HOURS Resulted 08/17/18 17:30 Blood Blood Culture - Preliminary NO GROWTH AFTER 48 HOURS Resulted Laboratory Tests 08/20/18 06:00: White Blood Count 7.1, Red Blood Count 4.77, Hemoglobin 12.3L, Hematocrit 39.5L , Mean Corpuscular Volume 83, Mean Corpuscular Hemoglobin 25.9L, Mean Corpuscular Hemoglobin Concent 31.3L, Red Cell Distribution Width 16.8H, Platelet Count 274, Mean Platelet Volume 6.9, Neutrophils (%) (Auto) 45.8, Lymphocytes (%) (Auto) 36.6, Monocytes (%) (Auto) 11.3H, Eosinophils (%) (Auto) 4.6H, Basophils (%) (Auto) 1.8, Sodium Level 142, Potassium Level 4.1, Chloride Level 109H, Carbon Dioxide Level 26, Anion Gap 7, Blood Urea Nitrogen 21H, Creatinine 1.4H, Estimat Glomerular Filtration Rate > 60, Glucose Level 94, Calcium Level 8.6, Pro-B-Type Natriuretic Peptide 533H Current Medications Medications (Trade) Dose Ordered Sig/Aminata Route PRN Reason Start Time Stop Time Status Last Admin Dose Admin Acetaminophen (Tylenol) 650 mg Q4H PRN ORAL fever (temp>100.5F) 08/17/18 20:45 09/16/18 20:44 Albuterol/ Ipratropium (Albuterol/ Ipratropium) 3 ml Q4H PRN HHN Shortness of Breath 08/17/18 20:45 08/22/18 20:44 08/20/18 10:35 Amlodipine Besylate (Norvasc) 10 mg DAILY ORAL 08/18/18 09:00 09/17/18 08:59 08/20/18 09:14 Aspirin (Ecotrin) 81 mg DAILY ORAL 08/19/18 09:00 09/18/18 08:59 08/20/18 09:13 Atorvastatin Calcium (Lipitor) 20 mg BEDTIME ORAL 08/18/18 21:00 09/17/18 20:59 08/19/18 20:48 Azithromycin (Zithromax) 250 mg DAILY ORAL 08/18/18 10:15 08/22/18 10:14 08/20/18 09:13 Clopidogrel Bisulfate (Plavix) 75 mg DAILY ORAL 08/18/18 09:00 09/17/18 08:59 08/20/18 09:14 Dextrose (Dextrose 50%) 25 ml STAT PRN IV Hypoglycemia 08/17/18 21:15 09/16/18 21:14 Dextrose (Dextrose 50%) 50 ml STAT PRN IV Hypoglycemia 08/17/18 20:45 09/16/18 20:44 Heparin Sodium (Porcine) (Heparin 5000 units/ml) 5,000 units EVERY 12 HOURS SUBQ 08/17/18 21:00 09/16/18 20:59 08/20/18 09:15 Hydromorphone HCl (Dilaudid) 2 mg Q3H PRN IVP Severe Pain (Pain Scale 7-10) 08/17/18 22:15 08/24/18 22:14 08/20/18 09:13 Levetiracetam (Keppra) 500 mg Q12HR ORAL 08/17/18 21:00 09/16/18 20:59 08/20/18 09:14 Metoprolol Tartrate (Lopressor) 25 mg Q12HR ORAL 08/19/18 21:00 09/18/18 20:59 08/20/18 09:14 Mirtazapine (Remeron) 45 mg BEDTIME ORAL 08/19/18 21:00 09/18/18 20:59 08/19/18 20:48 Morphine Sulfate (Morphine Sulfate) 2 mg Q4H PRN IVP Moderate Pain (Pain Scale 4-6) 08/17/18 20:45 08/24/18 20:44 Ondansetron HCl (Zofran) 4 mg Q6H PRN IVP Nausea & Vomiting 08/17/18 20:45 09/16/18 20:44 Polyethylene Glycol (Miralax) 17 gm DAILYPRN PRN ORAL Constipation 08/17/18 20:45 09/16/18 20:44 Temazepam (Restoril) 15 mg HSPRN PRN ORAL Insomnia 08/17/18 20:45 08/24/18 20:44 Theophylline (Wilfrido-Dur) 100 mg EVERY 12 HOURS ORAL 08/17/18 21:00 09/16/18 20:59 08/20/18 09:14 Jessie Magana MD Aug 20, 2018 11:21
[2018-08-20 12:00] VITALS: BP 140/67
--- NOTE | 2018-08-20 13:13 | General Progress Note ---
Assessment/Plan Assessment/Plan mdd anxiety Remeron 45 mg qhs ativan prn Subjective Date patient seen: Aug 20, 2018 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: Reports: anxiety, depressed Allergies: Coded Allergies: EGG (Verified Allergy, Unknown, 08/17/18) MEPERIDINE (Verified Allergy, Unknown, 08/17/18) NITROGLYCERIN (Verified Allergy, Unknown, hives, 08/17/18) Subjective the pt is irritable and angry. the pt has multiple illogical complaints Objective Last 24 Hour Vital Signs Date Time Temp Pulse Resp B/P (MAP) Pulse Ox O2 Delivery O2 Flow Rate FiO2 08/20/18 12:13 97.3 08/20/18 10:42 81 16 98 Room Air 08/20/18 10:32 84 18 Room Air 21 08/20/18 10:32 84 16 96 Room Air 21 08/20/18 09:43 97.3 08/20/18 09:14 82 137/71 08/20/18 09:14 82 137/71 08/20/18 09:13 97.3 08/20/18 09:00 Room Air 08/20/18 08:00 74 08/20/18 08:00 97.3 82 20 134/65 (88) 94 97.3 08/20/18 04:00 82 08/20/18 04:00 97.3 80 20 137/71 (93) 95 97.3 08/20/18 00:00 86 08/20/18 00:00 98.1 86 20 134/62 (86) 95 98.1 08/19/18 21:00 Room Air 08/19/18 20:48 109 140/70 08/19/18 20:09 88 18 Room Air 21 08/19/18 20:00 110 08/19/18 20:00 97.5 109 20 140/70 (93) 96 97.5 08/19/18 16:00 104 08/19/18 16:00 97.5 94 18 126/69 (88) 99 97.5 Intake and Output 08/19/18 08/20/18 19:00 07:00 Intake Total 840 ml 400 ml Output Total 1100 ml 400 ml Balance -260 ml 0 ml Intake Oral 840 ml 400 ml Output Urine Total 1100 ml 400 ml # Voids 5 # Bowel Movements 2 Laboratory Tests 9/27/18 06:00: White Blood Count 7.1, Red Blood Count 4.77, Hemoglobin 12.3L, Hematocrit 39.5L , Mean Corpuscular Volume 83, Mean Corpuscular Hemoglobin 25.9L, Mean Corpuscular Hemoglobin Concent 31.3L, Red Cell Distribution Width 16.8H, Platelet Count 274, Mean Platelet Volume 6.9, Neutrophils (%) (Auto) 45.8, Lymphocytes (%) (Auto) 36.6, Monocytes (%) (Auto) 11.3H, Eosinophils (%) (Auto) 4.6H, Basophils (%) (Auto) 1.8, Sodium Level 142, Potassium Level 4.1, Chloride Level 109H, Carbon Dioxide Level 26, Anion Gap 7, Blood Urea Nitrogen 21H, Creatinine 1.4H, Estimat Glomerular Filtration Rate > 60, Glucose Level 94, Calcium Level 8.6, Pro-B-Type Natriuretic Peptide 533H Height (Feet): 6 Height (Inches): 1.00 Weight (Pounds): 130 General Appearance: no apparent distress, alert Neurologic: oriented x 3, responsive, depressed affect Rachael Buckley MD Aug 20, 2018 13:13
[2018-08-20 16:00] VITALS: BP 137/64
--- NOTE | 2018-08-20 16:55 | General Surgery Progress Note ---
General Surgery-Progress Note Subjective Additional Comments no acute events. doing well. labs improved Objective Last 24 Hour Vital Signs Date Time Temp Pulse Resp B/P (MAP) Pulse Ox O2 Delivery O2 Flow Rate FiO2 08/20/18 15:37 97.3 08/20/18 15:07 97.3 08/20/18 12:13 97.3 08/20/18 12:00 83 08/20/18 12:00 98.1 79 20 140/67 (91) 93 98.1 08/20/18 10:42 81 16 98 Room Air 21 08/20/18 10:32 84 18 Room Air 21 08/20/18 10:32 84 16 96 Room Air 21 08/20/18 09:14 82 137/71 08/20/18 09:14 82 137/71 08/20/18 09:13 97.3 08/20/18 09:00 Room Air 08/20/18 08:00 74 08/20/18 08:00 97.3 82 20 134/65 (88) 94 97.3 08/20/18 04:00 82 08/20/18 04:00 97.3 80 20 137/71 (93) 95 97.3 08/20/18 00:00 86 08/20/18 00:00 98.1 86 20 134/62 (86) 95 98.1 08/19/18 21:00 Room Air 08/19/18 20:48 109 140/70 08/19/18 20:09 88 18 Room Air 21 08/19/18 20:00 110 08/19/18 20:00 97.5 109 20 140/70 (93) 96 97.5 I&O Intake and Output 08/19/18 08/20/18 19:00 07:00 Intake Total 840 ml 400 ml Output Total 1100 ml 400 ml Balance -260 ml 0 ml Intake Oral 840 ml 400 ml Output Urine Total 1100 ml 400 ml # Voids 5 # Bowel Movements 2 Dressing: saturated Wound: clean Drains: none Cardiovascular: RSR Respiratory: clear Abdomen: soft, flat, non-tender, present bowel sounds Extremities: other Laboratory Tests Test 08/20/18 06:00 White Blood Count 7.1 K/UL (4.8-10.8) Red Blood Count 4.77 M/UL (4.70-6.10) Hemoglobin 12.3 G/DL (14.2-18.0) L Hematocrit 39.5 % (42.0-52.0) L Mean Corpuscular Volume 83 FL (80-99) Mean Corpuscular Hemoglobin 25.9 PG (27.0-31.0) L Mean Corpuscular Hemoglobin Concent 31.3 G/DL (32.0-36.0) L Red Cell Distribution Width 16.8 % (11.6-14.8) H Platelet Count 274 K/UL (150-450) Mean Platelet Volume 6.9 FL (6.5-10.1) Neutrophils (%) (Auto) 45.8 % (45.0-75.0) Lymphocytes (%) (Auto) 36.6 % (20.0-45.0) Monocytes (%) (Auto) 11.3 % (1.0-10.0) H Eosinophils (%) (Auto) 4.6 % (0.0-3.0) H Basophils (%) (Auto) 1.8 % (0.0-2.0) Sodium Level 142 MMOL/L (136-145) Potassium Level 4.1 MMOL/L (3.5-5.1) Chloride Level 109 MMOL/L (98-107) H Carbon Dioxide Level 26 MMOL/L (21-32) Anion Gap 7 mmol/L (5-15) Blood Urea Nitrogen 21 mg/dL (7-18) H Creatinine 1.4 MG/DL (0.55-1.30) H Estimat Glomerular Filtration Rate > 60 mL/min (>60) Glucose Level 94 MG/DL (74-106) Calcium Level 8.6 MG/DL (8.5-10.1) Pro-B-Type Natriuretic Peptide 533 pg/mL (0-125) H Plan Problems: (1) Atypical chest pain Assessment & Plan: Hx CABG. sternal wires now protruding and causing discomfort. labs okay exam stable. does have protruding sternal wires with ulcerations at skin may consider excision of ulcer, wound flap/revision with moving or trimming sternal wires. thank you Ugo Simms Aug 20, 2018 16:55
--- NOTE | 2018-08-20 19:13 | Internal Med Progress Note ---
Subjective Date of Service: Aug 20, 2018 Physician Name Shantanu Reyna Attending Physician Phil Wright MD Current Medications Medications (Trade) Dose Ordered Sig/Aminata Route PRN Reason Start Time Stop Time Status Last Admin Dose Admin Acetaminophen (Tylenol) 650 mg Q4H PRN ORAL fever (temp>100.5F) 08/17/18 20:45 09/16/18 20:44 Albuterol/ Ipratropium (Albuterol/ Ipratropium) 3 ml Q4H PRN HHN Shortness of Breath 08/17/18 20:45 08/22/18 20:44 08/20/18 17:30 Amlodipine Besylate (Norvasc) 10 mg DAILY ORAL 08/18/18 09:00 09/17/18 08:59 08/20/18 09:14 Aspirin (Ecotrin) 81 mg DAILY ORAL 08/19/18 09:00 09/18/18 08:59 08/20/18 09:13 Atorvastatin Calcium (Lipitor) 20 mg BEDTIME ORAL 08/18/18 21:00 09/17/18 20:59 08/19/18 20:48 Azithromycin (Zithromax) 250 mg DAILY ORAL 08/18/18 10:15 08/22/18 10:14 08/20/18 09:13 Clopidogrel Bisulfate (Plavix) 75 mg DAILY ORAL 08/18/18 09:00 09/17/18 08:59 08/20/18 09:14 Dextrose (Dextrose 50%) 25 ml STAT PRN IV Hypoglycemia 08/17/18 21:15 09/16/18 21:14 Dextrose (Dextrose 50%) 50 ml STAT PRN IV Hypoglycemia 08/17/18 20:45 09/16/18 20:44 Heparin Sodium (Porcine) (Heparin 5000 units/ml) 5,000 units EVERY 12 HOURS SUBQ 08/17/18 21:00 09/16/18 20:59 08/20/18 09:15 Hydromorphone HCl (Dilaudid) 2 mg Q3H PRN IVP Severe Pain (Pain Scale 7-10) 08/17/18 22:15 08/24/18 22:14 08/20/18 18:01 Levetiracetam (Keppra) 500 mg Q12HR ORAL 08/17/18 21:00 09/16/18 20:59 08/20/18 09:14 Metoprolol Tartrate (Lopressor) 25 mg Q12HR ORAL 08/19/18 21:00 09/18/18 20:59 08/20/18 09:14 Mirtazapine (Remeron) 45 mg BEDTIME ORAL 08/19/18 21:00 09/18/18 20:59 08/19/18 20:48 Morphine Sulfate (Morphine Sulfate) 2 mg Q4H PRN IVP Moderate Pain (Pain Scale 4-6) 08/17/18 20:45 08/24/18 20:44 Ondansetron HCl (Zofran) 4 mg Q6H PRN IVP Nausea & Vomiting 08/17/18 20:45 09/16/18 20:44 Polyethylene Glycol (Miralax) 17 gm DAILYPRN PRN ORAL Constipation 08/17/18 20:45 09/16/18 20:44 Temazepam (Restoril) 15 mg HSPRN PRN ORAL Insomnia 08/17/18 20:45 08/24/18 20:44 Theophylline (Wilfrido-Dur) 100 mg EVERY 12 HOURS ORAL 08/17/18 21:00 09/16/18 20:59 08/20/18 09:14 Allergies: Coded Allergies: EGG (Verified Allergy, Unknown, 08/17/18) MEPERIDINE (Verified Allergy, Unknown, 08/17/18) NITROGLYCERIN (Verified Allergy, Unknown, hives, 08/17/18) ROS Limited/Unobtainable: No Constitutional: Reports: no symptoms HEENT: Reports: no symptoms Cardiovascular: Reports: chest pain Respiratory: Reports: no symptoms Gastrointestinal/Abdominal: Reports: no symptoms Genitourinary: Reports: no symptoms 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: Reports: no symptoms Subjective 67 YO M admitted with chest pain and dyspnea. Now CHF. Cover for Radha Wright Objective Last Vital Signs Date Time Temp Pulse Resp B/P (MAP) Pulse Ox O2 Delivery O2 Flow Rate FiO2 08/20/18 18:31 97.3 08/20/18 17:30 86 18 93 Room Air 21 08/20/18 16:00 137/64 (88) Laboratory Tests Test 08/20/18 06:00 White Blood Count 7.1 K/UL (4.8-10.8) Red Blood Count 4.77 M/UL (4.70-6.10) Hemoglobin 12.3 G/DL (14.2-18.0) L Hematocrit 39.5 % (42.0-52.0) L Mean Corpuscular Volume 83 FL (80-99) Mean Corpuscular Hemoglobin 25.9 PG (27.0-31.0) L Mean Corpuscular Hemoglobin Concent 31.3 G/DL (32.0-36.0) L Red Cell Distribution Width 16.8 % (11.6-14.8) H Platelet Count 274 K/UL (150-450) Mean Platelet Volume 6.9 FL (6.5-10.1) Neutrophils (%) (Auto) 45.8 % (45.0-75.0) Lymphocytes (%) (Auto) 36.6 % (20.0-45.0) Monocytes (%) (Auto) 11.3 % (1.0-10.0) H Eosinophils (%) (Auto) 4.6 % (0.0-3.0) H Basophils (%) (Auto) 1.8 % (0.0-2.0) Sodium Level 142 MMOL/L (136-145) Potassium Level 4.1 MMOL/L (3.5-5.1) Chloride Level 109 MMOL/L (98-107) H Carbon Dioxide Level 26 MMOL/L (21-32) Anion Gap 7 mmol/L (5-15) Blood Urea Nitrogen 21 mg/dL (7-18) H Creatinine 1.4 MG/DL (0.55-1.30) H Estimat Glomerular Filtration Rate > 60 mL/min (>60) Glucose Level 94 MG/DL (74-106) Calcium Level 8.6 MG/DL (8.5-10.1) Pro-B-Type Natriuretic Peptide 533 pg/mL (0-125) H Intake and Output 08/19/18 08/20/18 19:00 07:00 Intake Total 840 ml 400 ml Output Total 1100 ml 400 ml Balance -260 ml 0 ml Intake Oral 840 ml 400 ml Output Urine Total 1100 ml 400 ml # Voids 5 # Bowel Movements 2 Objective General Appearance: WD/WN, no apparent distress, alert, thin EENT: PERRL/EOMI, normal ENT inspection Neck: non-tender, normal alignment, supple Cardiovascular: normal peripheral pulses, normal rate, regular rhythm, no gallop/murmur, no JVD Respiratory/Chest: chest wall non-tender, lungs clear, normal breath sounds, no respiratory distress, no accessory muscle use Abdomen: normal bowel sounds, non tender, soft, no organomegaly, no mass Extremities: normal range of motion, non-tender Neurologic: rn hemodialysis charge II-XII grossly normal, no motor/sensory deficits Skin: normal pigmentation, warm/dry Assessment/Plan Problem List: (1) CHF (congestive heart failure) Assessment & Plan: see cardiology note. (2) Atypical chest pain Assessment & Plan: Rulled out for NM by troponin (3) CAD (coronary artery disease) Assessment & Plan: see cardiology note. add lopressor (4) Chronic ulcer of right leg (5) COPD exacerbation Assessment & Plan: continue azitrhomycin per pulmonary (6) HTN (hypertension) Assessment & Plan: continue lopressor and norvasc (7) Seizure disorder Status: progressing Shantanu Reyna MD Aug 20, 2018 19:13
[2018-08-20 20:00] VITALS: BP 132/64
[2018-08-20] MEDS: Atorvastatin 20mg tab ORAL SCH (21:09)
--- NOTE | 2018-08-20 22:58 | Cardiology Progress Note ---
Assessment/Plan Status: stable Assessment/Plan Assessment/Plan 1. Atypical chest pain. The patient was ruled out for myocardial infarction. Cardiac catheterization no target for revascularization We will treat the patient medically with combination of aspirin, Plavix and Lipitor. Add Lopressor 25 bid Outpatient [facility] arrange, patient instructed to schedule Consider ranexa 2. Hypertension, on Norvasc 10 mg daily. 3. COPD. 4. Right ankle ulcer. On Abx 5. Seizures, on Keppra. 6. Sternotomy emelia eroding. Surgery consult pending Subjective Cardiovascular: Reports: no symptoms Respiratory: Reports: no symptoms Gastrointestinal/Abdominal: Reports: no symptoms Genitourinary: Reports: no symptoms Subjective NO acute events, vitals stable, no chest pain, no distress Objective Last 24 Hour Vital Signs Date Time Temp Pulse Resp B/P (MAP) Pulse Ox O2 Delivery O2 Flow Rate FiO2 08/20/18 21:09 82 132/64 08/20/18 21:00 Room Air 08/20/18 20:53 78 16 Room Air 21 08/20/18 20:00 96.1 88 18 132/64 (86) 95 96.1 08/20/18 19:38 88 08/20/18 18:31 97.3 08/20/18 18:01 97.3 08/20/18 17:30 86 18 93 Room Air 21 08/20/18 16:00 97.7 79 20 137/64 (88) 94 97.7 08/20/18 16:00 84 08/20/18 15:07 97.3 08/20/18 12:13 97.3 08/20/18 12:00 83 08/20/18 12:00 98.1 79 20 140/67 (91) 93 98.1 08/20/18 10:42 81 16 98 Room Air 21 08/20/18 10:32 84 18 Room Air 21 08/20/18 10:32 84 16 96 Room Air 21 08/20/18 09:14 82 137/71 08/20/18 09:14 82 137/71 08/20/18 09:13 97.3 08/20/18 09:00 Room Air 08/20/18 08:00 74 08/20/18 08:00 97.3 82 20 134/65 (88) 94 97.3 08/20/18 04:00 82 08/20/18 04:00 97.3 80 20 137/71 (93) 95 97.3 08/20/18 00:00 86 08/20/18 00:00 98.1 86 20 134/62 (86) 95 98.1 General Appearance: no apparent distress, alert EENT: PERRL/EOMI, normal ENT inspection, TMs normal Neck: non-tender, normal alignment, supple, normal inspection, no JVD Rhythm: NSR Cardiovascular: normal peripheral pulses, normal rate, regular rhythm Respiratory/Chest: chest wall non-tender, lungs clear, normal breath sounds, no respiratory distress Abdomen: normal bowel sounds, non tender, soft Extremities: normal range of motion, non-tender, normal inspection, no calf tenderness, no swelling 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, no motor/sensory deficits Intake and Output 08/19/18 08/20/18 19:00 07:00 Intake Total 840 ml 400 ml Output Total 1100 ml 400 ml Balance -260 ml 0 ml Intake Oral 840 ml 400 ml Output Urine Total 1100 ml 400 ml # Voids 5 # Bowel Movements 2 Laboratory Tests Test 08/20/18 06:00 White Blood Count 7.1 K/UL (4.8-10.8) Red Blood Count 4.77 M/UL (4.70-6.10) Hemoglobin 12.3 G/DL (14.2-18.0) L Hematocrit 39.5 % (42.0-52.0) L Mean Corpuscular Volume 83 FL (80-99) Mean Corpuscular Hemoglobin 25.9 PG (27.0-31.0) L Mean Corpuscular Hemoglobin Concent 31.3 G/DL (32.0-36.0) L Red Cell Distribution Width 16.8 % (11.6-14.8) H Platelet Count 274 K/UL (150-450) Mean Platelet Volume 6.9 FL (6.5-10.1) Neutrophils (%) (Auto) 45.8 % (45.0-75.0) Lymphocytes (%) (Auto) 36.6 % (20.0-45.0) Monocytes (%) (Auto) 11.3 % (1.0-10.0) H Eosinophils (%) (Auto) 4.6 % (0.0-3.0) H Basophils (%) (Auto) 1.8 % (0.0-2.0) Sodium Level 142 MMOL/L (136-145) Potassium Level 4.1 MMOL/L (3.5-5.1) Chloride Level 109 MMOL/L (98-107) H Carbon Dioxide Level 26 MMOL/L (21-32) Anion Gap 7 mmol/L (5-15) Blood Urea Nitrogen 21 mg/dL (7-18) H Creatinine 1.4 MG/DL (0.55-1.30) H Estimat Glomerular Filtration Rate > 60 mL/min (>60) Glucose Level 94 MG/DL (74-106) Calcium Level 8.6 MG/DL (8.5-10.1) Pro-B-Type Natriuretic Peptide 533 pg/mL (0-125) H Adonis Winn MD Aug 20, 2018 22:58
[2018-08-21] VITALS: BP 118/57
[2018-08-21 04:00] VITALS: BP 125/62
[2018-08-21 07:25] LABS: BASOPHILS % (AUTO) 1.5 % (0.0-2.0); EOSINOPHILS % (AUTO) 4.6 % (0.0-3.0); HEMATOCRIT 38.4 % (42.0-52.0); LYMPHOCYTES % (AUTO) 31.1 % (20.0-45.0); MEAN CORPUSCULAR VOLUME 84 FL (80-99); MONOCYTES % (AUTO) 11.2 % (1.0-10.0); NEUTROPHILS % (AUTO) 51.7 % (45.0-75.0); PLATELET COUNT 268 K/UL (150-450); RED BLOOD COUNT 4.56 M/UL (4.70-6.10); RED CELL DISTRIBUTION WIDTH 17.4 % (11.6-14.8); WHITE BLOOD COUNT 9.8 K/UL (4.8-10.8)
[2018-08-21 07:30] LABS: ANION GAP 6 mmol/L (5-15); BLOOD UREA NITROGEN 19 mg/dL (7-18); CALCIUM 8.4 MG/DL (8.5-10.1); CARBON DIOXIDE 27 MMOL/L (21-32); CHLORIDE 107 MMOL/L (98-107); CREATININE 1.3 MG/DL (0.55-1.30); SODIUM 140 MMOL/L (136-145)
[2018-08-21 08:00] VITALS: BP 123/59
--- NOTE | 2018-08-21 08:50 | Infectious Diseases Prog Note ---
Assessment/Plan Assessment/Plan URI - Viral vs Bacterial SOB resolved Fevers Resolved Nausea resolved Diarrhea resolved Chest pain - Improved Has two wire from sternotomy coming out of skin Hx - Hep C HTN COPD Stomach ulcers Seizures CAD s/p Stent and CABG A: - Continue Azithromycin #4/5 (End date 08/22/18) - S/P Cefepime and vancomycin - Surgery eval of sternotomy wires - Monitor CBC and Temps - Supportive care We will continue to follow the patient during this hospitalization. Subjective Allergies: Coded Allergies: EGG (Verified Allergy, Unknown, 08/17/18) MEPERIDINE (Verified Allergy, Unknown, 08/17/18) NITROGLYCERIN (Verified Allergy, Unknown, hives, 08/17/18) Subjective No new complaints Afebrile Objective Vital Signs Last 24 Hour Vital Signs Date Time Temp Pulse Resp B/P (MAP) Pulse Ox O2 Delivery O2 Flow Rate FiO2 08/21/18 04:00 97.9 68 20 125/62 (83) 93 97.9 08/21/18 03:45 73 08/21/18 00:00 98.5 77 20 118/57 (77) 97 98.5 08/20/18 23:38 77 08/20/18 21:09 82 132/64 08/20/18 21:00 Room Air 08/20/18 20:53 78 16 Room Air 21 08/20/18 20:00 96.1 88 18 132/64 (86) 95 96.1 08/20/18 19:38 88 08/20/18 18:31 97.3 08/20/18 18:01 97.3 08/20/18 17:30 86 18 93 Room Air 21 08/20/18 16:00 97.7 79 20 137/64 (88) 94 97.7 08/20/18 16:00 84 08/20/18 15:07 97.3 08/20/18 12:13 97.3 08/20/18 12:00 83 08/20/18 12:00 98.1 79 20 140/67 (91) 93 98.1 08/20/18 10:42 81 16 98 Room Air 21 08/20/18 10:32 84 18 Room Air 21 08/20/18 10:32 84 16 96 Room Air 21 08/20/18 09:14 82 137/71 08/20/18 09:14 82 137/71 08/20/18 09:13 97.3 08/20/18 09:00 Room Air Height (Feet): 6 Height (Inches): 1.00 Weight (Pounds): 130 Objective Gen: NAD, siting in bed HEENT: NCAT, MMM, EOMI, no scleral icterus LUNGS: CTAB, No W, Sternotomy wire coming out of skin at sternum - (No E/P) CARDS: RRR, S1, S2 ABD: Soft, NT, ND, + BS Laboratory Tests Test 08/21/18 05:15 White Blood Count 9.8 K/UL (4.8-10.8) Red Blood Count 4.56 M/UL (4.70-6.10) L Hemoglobin 12.0 G/DL (14.2-18.0) L Hematocrit 38.4 % (42.0-52.0) L Mean Corpuscular Volume 84 FL (80-99) Mean Corpuscular Hemoglobin 26.4 PG (27.0-31.0) L Mean Corpuscular Hemoglobin Concent 31.3 G/DL (32.0-36.0) L Red Cell Distribution Width 17.4 % (11.6-14.8) H Platelet Count 268 K/UL (150-450) Mean Platelet Volume 6.3 FL (6.5-10.1) L Neutrophils (%) (Auto) 51.7 % (45.0-75.0) Lymphocytes (%) (Auto) 31.1 % (20.0-45.0) Monocytes (%) (Auto) 11.2 % (1.0-10.0) H Eosinophils (%) (Auto) 4.6 % (0.0-3.0) H Basophils (%) (Auto) 1.5 % (0.0-2.0) Sodium Level 140 MMOL/L (136-145) Potassium Level 5.0 MMOL/L (3.5-5.1) Chloride Level 107 MMOL/L (98-107) Carbon Dioxide Level 27 MMOL/L (21-32) Anion Gap 6 mmol/L (5-15) Blood Urea Nitrogen 19 mg/dL (7-18) H Creatinine 1.3 MG/DL (0.55-1.30) Estimat Glomerular Filtration Rate > 60 mL/min (>60) Glucose Level 99 MG/DL (74-106) Calcium Level 8.4 MG/DL (8.5-10.1) L Current Medications Medications (Trade) Dose Ordered Sig/Aminata Route PRN Reason Start Time Stop Time Status Last Admin Dose Admin Acetaminophen (Tylenol) 650 mg Q4H PRN ORAL fever (temp>100.5F) 08/17/18 20:45 09/16/18 20:44 Albuterol/ Ipratropium (Albuterol/ Ipratropium) 3 ml Q4H PRN HHN Shortness of Breath 08/17/18 20:45 08/22/18 20:44 08/20/18 17:30 Amlodipine Besylate (Norvasc) 10 mg DAILY ORAL 08/18/18 09:00 09/17/18 08:59 08/20/18 09:14 Aspirin (Ecotrin) 81 mg DAILY ORAL 08/19/18 09:00 09/18/18 08:59 08/20/18 09:13 Atorvastatin Calcium (Lipitor) 20 mg BEDTIME ORAL 08/18/18 21:00 09/17/18 20:59 08/20/18 21:09 Azithromycin (Zithromax) 250 mg DAILY ORAL 08/18/18 10:15 08/22/18 10:14 08/20/18 09:13 Clopidogrel Bisulfate (Plavix) 75 mg DAILY ORAL 08/18/18 09:00 09/17/18 08:59 08/20/18 09:14 Dextrose (Dextrose 50%) 25 ml STAT PRN IV Hypoglycemia 08/17/18 21:15 09/16/18 21:14 Dextrose (Dextrose 50%) 50 ml STAT PRN IV Hypoglycemia 08/17/18 20:45 09/16/18 20:44 Heparin Sodium (Porcine) (Heparin 5000 units/ml) 5,000 units EVERY 12 HOURS SUBQ 08/17/18 21:00 09/16/18 20:59 08/20/18 21:12 Hydromorphone HCl (Dilaudid) 2 mg Q3H PRN IVP Severe Pain (Pain Scale 7-10) 08/17/18 22:15 08/24/18 22:14 08/21/18 06:11 Levetiracetam (Keppra) 500 mg Q12HR ORAL 08/17/18 21:00 09/16/18 20:59 08/20/18 21:08 Metoprolol Tartrate (Lopressor) 25 mg Q12HR ORAL 08/19/18 21:00 09/18/18 20:59 08/20/18 21:09 Mirtazapine (Remeron) 45 mg BEDTIME ORAL 08/19/18 21:00 09/18/18 20:59 08/20/18 21:08 Morphine Sulfate (Morphine Sulfate) 2 mg Q4H PRN IVP Moderate Pain (Pain Scale 4-6) 08/17/18 20:45 08/24/18 20:44 Ondansetron HCl (Zofran) 4 mg Q6H PRN IVP Nausea & Vomiting 08/17/18 20:45 09/16/18 20:44 Polyethylene Glycol (Miralax) 17 gm DAILYPRN PRN ORAL Constipation 08/17/18 20:45 09/16/18 20:44 Temazepam (Restoril) 15 mg HSPRN PRN ORAL Insomnia 08/17/18 20:45 08/24/18 20:44 Theophylline (Wilfrido-Dur) 100 mg EVERY 12 HOURS ORAL 08/17/18 21:00 09/16/18 20:59 08/20/18 21:09 Adonis Lozoya MD Aug 21, 2018 08:50
[2018-08-21] MEDS: Heparin 5000 units/ml inj SUBQ SCH (09:00)
[2018-08-21] MEDS: Metoprolol 25mg tab ORAL SCH (09:16)
[2018-08-21] MEDS: Aspirin EC 81mg tab ORAL SCH (09:16)
[2018-08-21] MEDS: Theophylline ER 100mg ORAL SCH (09:16)
[2018-08-21] MEDS: Azithromycin 250mg tab ORAL SCH (09:16)
--- NOTE | 2018-08-21 12:08 | Pulmonology Progress Note ---
Assessment/Plan Problems: (1) Acute bronchitis (2) ACS (acute coronary syndrome) (3) COPD exacerbation (4) HTN (hypertension) (5) Severe malnutrition (6) Intractable back pain (7) Chronic ulcer of right leg Assessment/Plan doing better no new complains respiratory treatment check electrolytes pain management wants to go home tomorrow d/w dr ascencio Subjective ROS Limited/Unobtainable: No Constitutional: Reports: no symptoms HEENT: Repors: no symptoms Respiratory: Reports: no symptoms Allergies: Coded Allergies: EGG (Verified Allergy, Unknown, 08/17/18) MEPERIDINE (Verified Allergy, Unknown, 08/17/18) NITROGLYCERIN (Verified Allergy, Unknown, hives, 08/17/18) Objective Last 24 Hour Vital Signs Date Time Temp Pulse Resp B/P (MAP) Pulse Ox O2 Delivery O2 Flow Rate FiO2 08/21/18 10:21 Room Air 08/21/18 09:40 74 18 Room Air 21 08/21/18 09:16 81 123/59 08/21/18 09:16 81 123/59 08/21/18 08:00 97.2 77 18 123/59 (80) 95 97.2 08/21/18 08:00 81 08/21/18 04:00 97.9 68 20 125/62 (83) 93 97.9 08/21/18 03:45 73 08/21/18 00:00 98.5 77 20 118/57 (77) 97 98.5 08/20/18 23:38 77 08/20/18 21:09 82 132/64 08/20/18 21:00 Room Air 08/20/18 20:53 78 16 Room Air 21 08/20/18 20:00 96.1 88 18 132/64 (86) 95 96.1 08/20/18 19:38 88 08/20/18 18:31 97.3 08/20/18 18:01 97.3 08/20/18 17:30 86 18 93 Room Air 21 08/20/18 16:00 97.7 79 20 137/64 (88) 94 97.7 08/20/18 16:00 84 08/20/18 15:07 97.3 08/20/18 12:13 97.3 Intake and Output 9/27/18 9/28/18 19:00 07:00 Intake Total 1000 ml 300 ml Output Total 1300 ml Balance -300 ml 300 ml Intake Oral 1000 ml 300 ml Output Urine Total 1300 ml # Bowel Movements 1 General Appearance: WD/WN, no acute distress HEENT: normocephalic, atraumatic Respiratory/Chest: chest wall non-tender, lungs clear Cardiovascular: normal peripheral pulses, normal rate Abdomen: normal bowel sounds, soft, non tender Genitourinary: normal external genitalia Skin: no rash 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 Laboratory Tests 08/21/18 05:15: White Blood Count 9.8, Red Blood Count 4.56L, Hemoglobin 12.0L, Hematocrit 38.4L , Mean Corpuscular Volume 84, Mean Corpuscular Hemoglobin 26.4L, Mean Corpuscular Hemoglobin Concent 31.3L, Red Cell Distribution Width 17.4H, Platelet Count 268, Mean Platelet Volume 6.3L, Neutrophils (%) (Auto) 51.7, Lymphocytes (%) (Auto) 31.1, Monocytes (%) (Auto) 11.2H, Eosinophils (%) (Auto) 4.6H, Basophils (%) (Auto) 1.5, Sodium Level 140, Potassium Level 5.0, Chloride Level 107, Carbon Dioxide Level 27, Anion Gap 6, Blood Urea Nitrogen 19H, Creatinine 1.3, Estimat Glomerular Filtration Rate > 60, Glucose Level 99, Calcium Level 8.4L Current Medications Medications (Trade) Dose Ordered Sig/Aminata Route PRN Reason Start Time Stop Time Status Last Admin Dose Admin Acetaminophen (Tylenol) 650 mg Q4H PRN ORAL fever (temp>100.5F) 08/17/18 20:45 09/16/18 20:44 Albuterol/ Ipratropium (Albuterol/ Ipratropium) 3 ml Q4H PRN HHN Shortness of Breath 08/17/18 20:45 08/22/18 20:44 08/20/18 17:30 Amlodipine Besylate (Norvasc) 10 mg DAILY ORAL 08/18/18 09:00 09/17/18 08:59 08/21/18 09:16 Aspirin (Ecotrin) 81 mg DAILY ORAL 08/19/18 09:00 09/18/18 08:59 08/21/18 09:16 Atorvastatin Calcium (Lipitor) 20 mg BEDTIME ORAL 08/18/18 21:00 09/17/18 20:59 08/20/18 21:09 Azithromycin (Zithromax) 250 mg DAILY ORAL 08/18/18 10:15 08/22/18 10:14 08/21/18 09:16 Clopidogrel Bisulfate (Plavix) 75 mg DAILY ORAL 08/18/18 09:00 09/17/18 08:59 08/21/18 09:16 Dextrose (Dextrose 50%) 25 ml Q30M PRN IV Hypoglycemia 08/21/18 12:00 09/20/18 11:58 Dextrose (Dextrose 50%) 50 ml Q30M PRN IV hypoglycemia 08/21/18 12:00 09/20/18 11:59 Heparin Sodium (Porcine) (Heparin 5000 units/ml) 5,000 units EVERY 12 HOURS SUBQ 08/17/18 21:00 09/16/18 20:59 08/20/18 21:12 Hydromorphone HCl (Dilaudid) 2 mg Q3H PRN IVP Severe Pain (Pain Scale 7-10) 08/17/18 22:15 08/24/18 22:14 08/21/18 09:16 Levetiracetam (Keppra) 500 mg Q12HR ORAL 08/17/18 21:00 09/16/18 20:59 08/21/18 09:16 Metoprolol Tartrate (Lopressor) 25 mg Q12HR ORAL 08/19/18 21:00 09/18/18 20:59 08/21/18 09:16 Mirtazapine (Remeron) 45 mg BEDTIME ORAL 08/19/18 21:00 09/18/18 20:59 08/20/18 21:08 Morphine Sulfate (Morphine Sulfate) 2 mg Q4H PRN IVP Moderate Pain (Pain Scale 4-6) 08/17/18 20:45 08/24/18 20:44 Ondansetron HCl (Zofran) 4 mg Q6H PRN IVP Nausea & Vomiting 08/17/18 20:45 09/16/18 20:44 Polyethylene Glycol (Miralax) 17 gm DAILYPRN PRN ORAL Constipation 08/17/18 20:45 09/16/18 20:44 Temazepam (Restoril) 15 mg HSPRN PRN ORAL Insomnia 08/17/18 20:45 08/24/18 20:44 Theophylline (Wilfrido-Dur) 100 mg EVERY 12 HOURS ORAL 08/17/18 21:00 09/16/18 20:59 08/21/18 09:16 Jessie Magana MD Aug 21, 2018 12:08
[2018-08-21 12:28] VITALS: BP 118/57
--- NOTE | 2018-08-21 14:41 | General Surgery Progress Note ---
General Surgery-Progress Note Subjective Additional Comments late entry for patient seen at 10:00AM. no acute events. states pain is okay and wants to go home soon but wants narcotic pain medication prescription. no n /v/f/c. tolerating diet. ambulatory Objective Last 24 Hour Vital Signs Date Time Temp Pulse Resp B/P (MAP) Pulse Ox O2 Delivery O2 Flow Rate FiO2 08/21/18 12:28 98.4 76 18 118/57 (77) 95 98.4 08/21/18 12:20 97.2 08/21/18 12:00 92 08/21/18 10:21 Room Air 08/21/18 09:40 74 18 Room Air 21 08/21/18 09:16 81 123/59 08/21/18 09:16 81 123/59 08/21/18 08:00 97.2 77 18 123/59 (80) 95 97.2 08/21/18 08:00 81 08/21/18 04:00 97.9 68 20 125/62 (83) 93 97.9 08/21/18 03:45 73 08/21/18 00:00 98.5 77 20 118/57 (77) 97 98.5 08/20/18 23:38 77 08/20/18 21:09 82 132/64 08/20/18 21:00 Room Air 08/20/18 20:53 78 16 Room Air 21 08/20/18 20:00 96.1 88 18 132/64 (86) 95 96.1 08/20/18 19:38 88 08/20/18 18:31 97.3 08/20/18 18:01 97.3 08/20/18 17:30 86 18 93 Room Air 21 08/20/18 16:00 97.7 79 20 137/64 (88) 94 97.7 08/20/18 16:00 84 08/20/18 15:07 97.3 I&O Intake and Output 08/20/18 08/21/18 19:00 07:00 Intake Total 1000 ml 300 ml Output Total 1300 ml Balance -300 ml 300 ml Intake Oral 1000 ml 300 ml Output Urine Total 1300 ml # Bowel Movements 1 Dressing: other Wound: other Drains: other Cardiovascular: RSR Respiratory: clear Abdomen: soft, flat, non-tender, present bowel sounds Extremities: other Laboratory Tests Test 08/21/18 05:15 White Blood Count 9.8 K/UL (4.8-10.8) Red Blood Count 4.56 M/UL (4.70-6.10) L Hemoglobin 12.0 G/DL (14.2-18.0) L Hematocrit 38.4 % (42.0-52.0) L Mean Corpuscular Volume 84 FL (80-99) Mean Corpuscular Hemoglobin 26.4 PG (27.0-31.0) L Mean Corpuscular Hemoglobin Concent 31.3 G/DL (32.0-36.0) L Red Cell Distribution Width 17.4 % (11.6-14.8) H Platelet Count 268 K/UL (150-450) Mean Platelet Volume 6.3 FL (6.5-10.1) L Neutrophils (%) (Auto) 51.7 % (45.0-75.0) Lymphocytes (%) (Auto) 31.1 % (20.0-45.0) Monocytes (%) (Auto) 11.2 % (1.0-10.0) H Eosinophils (%) (Auto) 4.6 % (0.0-3.0) H Basophils (%) (Auto) 1.5 % (0.0-2.0) Sodium Level 140 MMOL/L (136-145) Potassium Level 5.0 MMOL/L (3.5-5.1) Chloride Level 107 MMOL/L (98-107) Carbon Dioxide Level 27 MMOL/L (21-32) Anion Gap 6 mmol/L (5-15) Blood Urea Nitrogen 19 mg/dL (7-18) H Creatinine 1.3 MG/DL (0.55-1.30) Estimat Glomerular Filtration Rate > 60 mL/min (>60) Glucose Level 99 MG/DL (74-106) Calcium Level 8.4 MG/DL (8.5-10.1) L Plan Problems: (1) Atypical chest pain Assessment & Plan: Hx CABG. sternal wires now protruding and causing discomfort. labs okay exam stable. does have protruding sternal wires with ulcerations at skin may consider excision of ulcer, wound flap/revision with moving or trimming sternal wires. patient given office information for follow up. can consider as outpatient. continue outpatient wound care for leg ulcer as prior thank you Ugo Simms Aug 21, 2018 14:41
--- NOTE | 2018-08-21 15:40 | General Progress Note ---
Assessment/Plan Status: stable, progressing Assessment/Plan mdd anxiety Remeron 45 mg qhs ativan prn Subjective Date patient seen: Aug 21, 2018 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: Reports: anxiety, depressed, emotional problems Allergies: Coded Allergies: EGG (Verified Allergy, Unknown, 08/17/18) MEPERIDINE (Verified Allergy, Unknown, 08/17/18) NITROGLYCERIN (Verified Allergy, Unknown, hives, 08/17/18) Subjective the pt is irritable and angry. the pt has multiple illogical complaints Objective Last 24 Hour Vital Signs Date Time Temp Pulse Resp B/P (MAP) Pulse Ox O2 Delivery O2 Flow Rate FiO2 08/21/18 12:28 98.4 76 18 118/57 (77) 95 98.4 08/21/18 12:20 97.2 08/21/18 12:00 92 08/21/18 10:21 Room Air 08/21/18 09:40 74 18 Room Air 21 08/21/18 09:16 81 123/59 08/21/18 09:16 81 123/59 08/21/18 08:00 97.2 77 18 123/59 (80) 95 97.2 08/21/18 08:00 81 08/21/18 04:00 97.9 68 20 125/62 (83) 93 97.9 08/21/18 03:45 73 08/21/18 00:00 98.5 77 20 118/57 (77) 97 98.5 08/20/18 23:38 77 08/20/18 21:09 82 132/64 08/20/18 21:00 Room Air 08/20/18 20:53 78 16 Room Air 21 08/20/18 20:00 96.1 88 18 132/64 (86) 95 96.1 08/20/18 19:38 88 08/20/18 18:31 97.3 08/20/18 18:01 97.3 08/20/18 17:30 86 18 93 Room Air 21 08/20/18 16:00 97.7 79 20 137/64 (88) 94 97.7 08/20/18 16:00 84 Intake and Output 08/20/18 08/21/18 19:00 07:00 Intake Total 1000 ml 300 ml Output Total 1300 ml Balance -300 ml 300 ml Intake Oral 1000 ml 300 ml Output Urine Total 1300 ml # Bowel Movements 1 Laboratory Tests 08/21/18 05:15: White Blood Count 9.8, Red Blood Count 4.56L, Hemoglobin 12.0L, Hematocrit 38.4L , Mean Corpuscular Volume 84, Mean Corpuscular Hemoglobin 26.4L, Mean Corpuscular Hemoglobin Concent 31.3L, Red Cell Distribution Width 17.4H, Platelet Count 268, Mean Platelet Volume 6.3L, Neutrophils (%) (Auto) 51.7, Lymphocytes (%) (Auto) 31.1, Monocytes (%) (Auto) 11.2H, Eosinophils (%) (Auto) 4.6H, Basophils (%) (Auto) 1.5, Sodium Level 140, Potassium Level 5.0, Chloride Level 107, Carbon Dioxide Level 27, Anion Gap 6, Blood Urea Nitrogen 19H, Creatinine 1.3, Estimat Glomerular Filtration Rate > 60, Glucose Level 99, Calcium Level 8.4L Height (Feet): 6 Height (Inches): 1.00 Weight (Pounds): 130 General Appearance: no apparent distress, alert Rachael Buckley MD Aug 21, 2018 15:40
--- NOTE | 2018-08-24 07:33 | Discharge Summary ---
Discharge Summary Discharge Summary _ DATE OF ADMISSION: 08/17/2018 DATE OF DISCHARGE: 08/21/2018 REASON FOR ADMISSION: 67 years old male with past medical history of coronary artery disease, myocardial infarction 2, hypertension, status post CABG in 2009 in 2010, coronary angioplasty with stent placement 2 , COPD, seizure disorder, chronic right leg ulcer, presented to emergency department with chief complaint of chest pain. P Patient had recurrent admissions to [facility] and [facility] [place] for chest pain. Patient undergone cardiac catheterization in June [address] [facility]. Patient also admitted to shortness of breath. No fever , no chills , no nausea, no vomiting. upon evaluation vital signs were stable. Troponin was negative. ECG revealed no acute ischemic changes. Lactic acid 2.3. Chest x-ray revealed no acute process , but demonstrated hyperinflated lungs, consistent with known history of COPD. Patient admitted with diagnosis chest pain rule out coronary artery coronary syndrome, coronary artery disease, hypertension, COPD, seizure disorder CONSULTANTS: sales operations analyst Dr. Ames pulmonary Dr. Magana ID specialist Dr. Reich surgery Dr. Simms psychiatrist [facility] COU[facility]: Patient admitted to telemetry floor. Instructional Coach closely followed. Serial troponin were negative. EKG revealed no acute ischemic changes. Patient was ruled out for acute NV. Last cardiac catheterization, done on 06/25/2018, at [facility] revealed 90% proximal LAD stenosis just prior to first diagonal as well as distal LAD that was grafted by LOREDO. The circumflex also had stenosis of 99% proximal and 80% distal disease. The patient also had intact JOSHUA and RCA was occluded. Decision was made at that time to treat patient medically. 9 According to sales operations analyst, patient had atypical chest pain . Patient was treated medically with dual antiplatelet therapy ,statin, beta rasta and calcium channel rasta. Instructional Coach recommended outpatient EECP. Patient was instructed to schedule. Instructional Coach recommended to consider Ranexa, since patient allergic to Nitroglycerin. Blood pressure was managed with beta rasta and calcium channel ratsa, and remained stable. Tool And Die Inspector closely followed. Supplemental oxygen titrated to keep pulse oximetry above 92%. Pulmonary toilet with bronchodilators provided. Trial of theophylline was continued. Patient was on empiric azithromycin. Antitussive provided as needed. DVT and GI prophylaxis provided. Prior to discharge pulse oximetry stable on room air, SOB resolved. Surgeon followed . Patient i with history of CABG and at this time sternal wires were protruding, causing discomfort and ulceration of skin. Patient recommended to consider excision of ulcer, wound flap/revision with moving or s trimming of sternal wires. Patient was provided with office information to follow-up Wound care for chronic right leg ulcer provided. Pain management was addressed, and pain was controlled . DVT and GI prophylaxis provided. Seizure precautions were maintained. Keppra was continued. No evidence of seizure activity while in the hospital. Bowel regimen instituted. Frame Hand recommendations implemented in plan of care Psychiatrist following and optimized psychiatric medication regimen. Patient clinically stabilized and was ready for discharge home FINAL DIAGNOSES: Atypical chest pain Hypertension Coronary artery disease with history of CABGx2 and coronary angioplastyx2 stents Hypertension COPD exacerbation Acute bronchitis Severe malnutrition Chronic ulcer right leg Intractable back pain Seizure disorder Sternotomy emelia with erosion and ulceration Major depressive disorder Anxiety disorder DISCHARGE MEDICATIONS: See Medication Reconciliation list. DISCHARGE INSTRUCTIONS: Patient was discharged home Follow up with primary care provider in one week. Recommended to consider outpatient EECP, patient was instructed to schedule. Patient to follow-up with a surgeon as outpatient for excision of ulcer, wound flap/revision with moving or trimming of sternal wires. I have been assigned to dictate discharge summary for this account. I was not involved in the patient's management. Kristine Black NP Aug 24, 2018 07:33
--- NOTE | 2018-08-24 15:13 | Diagnostic Imaging Report ---
APPROVED REPORT CPT Code: 33422 Present Symptoms Comments: BILATERAL LEGS PAIN. BILATERAL: Imaging reveals a patent deep venous system bilaterally. There is no evidence of thrombus within the femoral, popliteal or tibial segments. The greater saphenous veins are also within normal limits. Doppler indicates normal spontaneous flow within these segments.
== END 2018-08-21 14:30 | disposition home or self-care (01) | DRG 813 ==
LOC: EMR 18:50 → 2E 19:02 → EDBEDREQ 19:14 → 2E 21:36
DX: T85.692A Other mechanical complication of permanent sutures, initial encounter (principal); E43 Unspecified severe protein-calorie malnutrition; Y83.8 Other surgical procedures as the cause of abnormal reaction of the patient, or of later complication, without mention of misadventure at the time of the procedure; R07.89 Other chest pain; I25.10 Atherosclerotic heart disease of native coronary artery without angina pectoris; J44.1 Chronic obstructive pulmonary disease with (acute) exacerbation; J20.9 Acute bronchitis, unspecified; Z95.5 Presence of coronary angioplasty implant and graft; M54.9 Dorsalgia, unspecified; L97.919 Non-pressure chronic ulcer of unspecified part of right lower leg with unspecified severity; Z95.1 Presence of aortocoronary bypass graft; E78.5 Hyperlipidemia, unspecified; Z88.8 Allergy status to other drugs, medicaments and biological substances; F32.9 Major depressive disorder, single episode, unspecified; F41.9 Anxiety disorder, unspecified; Z86.19 Personal history of other infectious and parasitic diseases; K25.9 Gastric ulcer, unspecified as acute or chronic, without hemorrhage or perforation; I11.0 Hypertensive heart disease with heart failure; G40.909 Epilepsy, unspecified, not intractable, without status epilepticus; Z68.1 Body mass index [BMI] 19.9 or less, adult
CPT/HCPCS: 36415; 71045; 80048; 80053; 80061; 80299; 80307; 81003; 82550; 83605; 83880; 84484; 85025; 85610; 85730; 87040; 93005; 93970; 94640; 94664; 96374; 96375; 96376; 99285; J2405; J7620

== ENCOUNTER 2018-08-31 09:58 | Emergency (ER) | payer MEDICARE, MEDICAID ==
[~2018-08-31] VITALS: Ht 185.4 cm; Wt 68.0 kg
[2018-08-31] MEDS ORDERED: ATORVASTATIN CA20 MG ORAL (10:43)
[2018-08-31] MEDS ORDERED: PREDNISONE20 MG ORAL (10:43)
[2018-08-31] MEDS ORDERED: MECLIZINE HCL25 MG ORAL (10:43)
[2018-08-31] MEDS ORDERED: ASPIRIN325 MG ORAL (10:43)
[2018-08-31] MEDS ORDERED: PRILOSEC OTC20 MG ORAL (10:43)
[2018-08-31 10:47] LABS: BASOPHILS % (AUTO) 1.5 % (0.0-2.0); EOSINOPHILS % (AUTO) 2.3 % (0.0-3.0); HEMOGLOBIN 13.7 G/DL (14.2-18.0); LYMPHOCYTES % (AUTO) 35.2 % (20.0-45.0); MEAN CORPUSCULAR VOLUME 83 FL (80-99); MONOCYTES % (AUTO) 7.2 % (1.0-10.0); NEUTROPHILS % (AUTO) 53.8 % (45.0-75.0); PLATELET COUNT 390 K/UL (150-450); RED BLOOD COUNT 5.19 M/UL (4.70-6.10); RED CELL DISTRIBUTION WIDTH 16.9 % (11.6-14.8); WHITE BLOOD COUNT 8.7 K/UL (4.8-10.8)
[2018-08-31 10:48] VITALS: BP 153/76
[2018-08-31 10:52] LABS: ANION GAP 11 mmol/L (5-15); BLOOD UREA NITROGEN 22 mg/dL (7-18); CALCIUM 8.8 MG/DL (8.5-10.1); CARBON DIOXIDE 23 MMOL/L (21-32); CHLORIDE 106 MMOL/L (98-107); CREATININE 1.1 MG/DL (0.55-1.30); POTASSIUM 4.7 MMOL/L (3.5-5.1); SODIUM 140 MMOL/L (136-145)
[2018-08-31] MEDS ORDERED: Ipratropium 0.02% Inh Soln 2.5ml UD HHN ONE (11:00)
[2018-08-31] MEDS ORDERED: Albuterol ud Inhalation HHN ONE (11:00)
[2018-08-31] MEDS ORDERED: Norco 5mg/325mg tab ORAL ONE (11:00)
[2018-08-31 11:04] LABS: ALANINE AMINOTRANSFERASE 15 U/L (12-78); ALBUMIN 3.4 G/DL (3.4-5.0); ALBUMIN/GLOBULIN RATIO 0.7 (1.0-2.7); ALKALINE PHOSPHATASE 103 U/L (46-116); ASPARTATE AMINO TRANSFERASE 17 U/L (15-37); BILIRUBIN,TOTAL 0.2 MG/DL (0.2-1.0); CKMB 1.3 NG/ML (0.0-3.6); CREATINE KINASE 60 U/L (26-308)
--- NOTE | 2018-08-31 11:30 | Diagnostic Imaging Report ---
Indication: Chest pain Comparison: 08/17/2018 A single view chest radiograph was obtained. Findings: No definite infiltrate or pulmonary vascular congestion identified. The lungs are hyperexpanded. The heart is normal in size. Sternotomy noted. The aorta is mildly enlarged consistent with atherosclerotic vascular disease. The bones are osteopenic. There is an old healed fracture of the left proximal humerus. Impression: No acute disease. COPD Sternotomy No change
--- NOTE | 2018-08-31 12:06 | Emergency Room Report ---
History of Present Illness General Chief Complaint: Chest Pain Source: Patient, Medical Record Present Illness HPI Patient is well-known to [facility] in to his primary care physician Dr. Magana who has admitted him multiple times. He was admitted most recently within the last 3 weeks for the same complaints. The patient complains of chest pain. He does have a history of coronary artery disease and ME. He underwent CABG in 2009. He has been admitted multiple times to different hospitals in the region. He repetitively has a negative cardiac workup. He does have evidence of sternotomy wire migration. This as well as his symptoms radiate from. I feel that this is pain related to the sternotomy wires. The patient has no new complaints. He did state he had some cough and congestion. He does have a history of COPD and requested a breathing treatment. He denies fever or chills. He denies nausea or vomiting. He denies abdominal pain. He has no other complaints. Allergies: Coded Allergies: EGG (Verified Allergy, Unknown, 08/17/18) MEPERIDINE (Verified Allergy, Unknown, 08/17/18) MORPHINE (Verified Allergy, Unknown, 08/31/18) NITROGLYCERIN (Verified Allergy, Unknown, hives, 08/17/18) Patient History Past Medical History: see triage record, HTN, ME, CAD, CHF, GERD, seizures, psych hx, other - HCV Past Surgical History: CABG Social History: Denies: smoking, alcohol use, drug use Reviewed Nursing Documentation: PMH: Agreed; PSxH: Agreed Nursing Documentation-PMH Past Medical History: No History, Except For Hx Cardiac Problems: Yes Hx Hypertension: Yes Hx Pacemaker: No Hx Asthma: No Hx COPD: Yes Hx Diabetes: No Hx Cancer: No Hx Gastrointestinal Problems: Yes - Stomach Ulcer, Hep C Hx Dialysis: No - kidney problems Hx Neurological Problems: Yes - Seizures, HTN, Weakness Hx Cerebrovascular Accident: No Hx Transient Ischemic Attacks: No Hx Alzheimer's Disease: No Hx Encephalitis: No Hx Seizures: Yes Hx Epilepsy: No Hx Multiple Sclerosis: No Hx Cerebral Palsy: No Hx Amyotrophic Lat Sclerosis: No Hx Guillian-[place]uther[place] Syndrome: No Hx Paralysis: No Hx Peripheral Neuropathy: No Hx Spinal Cord Injury: No Hx Head Trauma: No Hx Traumatic Brain Injury: No Hx Memory Loss: No Hx Concentration Difficulty: No Hx Speech Problem: No Hx Tremors: Yes Hx Vertigo: No Hx Dizziness: No Hx Syncope: Yes Hx Headaches: Yes Hx Aphasia: No Hx Dysphasia: Yes Hx Numbness: No Hx Weakness: Yes Hx Fatigue: No Hx Neurologic Surgery: No Hx Brain Shunt: No Review of Systems All Other Systems: negative except mentioned in HPI Physical Exam Vital Signs Date Time Temp Pulse Resp B/P (MAP) Pulse Ox O2 Delivery O2 Flow Rate FiO2 08/31/18 10:05 98.8 107 18 142/70 96 Room Air 98.8 08/31/18 11:28 21 Sp02 EP Interpretation: reviewed, normal General Appearance: no apparent distress, alert, GCS 15, non-toxic Head: normocephalic, atraumatic Eyes: bilateral eye normal inspection, bilateral eye PERRL ENT: hearing grossly normal, normal pharynx, no angioedema, normal voice Neck: full range of motion, supple/symm/no masses Respiratory: lungs clear, normal breath sounds, no respiratory distress, no retraction, no accessory muscle use, speaking full sentences, other - Midline chest scar with obvious wire protrusions under skin. No erythema or swelling. Cardiovascular #1: regular rate, rhythm, no edema Gastrointestinal: normal bowel sounds, non tender, soft, non-distended, no guarding, no rebound Rectal: deferred Musculoskeletal: back normal, gait/station normal, normal range of motion, non- tender, calf tenderness Neurologic: alert, oriented x3, responsive, motor strength/tone normal, sensory intact, speech normal Psychiatric: judgement/insight normal, memory normal, mood/affect normal, no suicidal/homicidal ideation Skin: normal color, no rash, warm/dry, well hydrated Medical Decision Making Diagnostic Impression: Primary Impression: Chest pain ER Course This patient has nonspecific chest pain and this appears consistent with pain related to the sternotomy wires on this patient's chest that appear to have migrated in her visible underneath the skin. Given the length of symptoms, this workup is very reassuring with negative cardiac enzymes, normal EKG, and normal chest x-ray. The patient has had extensive cardiac workup and is recurrently admitted to the hospital for chest pain. He has no new symptoms. I did speak with his primary care physician Dr. Magana who feels that this patient should not be admitted to the hospital at this time. He is aware of the sternotomy wire migration and the patient has been instructed to see a cardiothoracic surgeon for these repairs. I have very low suspicion for PE, aortic dissection or pneumothorax based on history/physical, laboratory and radiologic workup. The patient was given close return precautions and followup instructions. Laboratory Tests Test 08/31/18 10:22 White Blood Count 8.7 K/UL (4.8-10.8) Red Blood Count 5.19 M/UL (4.70-6.10) Hemoglobin 13.7 G/DL (14.2-18.0) L Hematocrit 43.0 % (42.0-52.0) Mean Corpuscular Volume 83 FL (80-99) Mean Corpuscular Hemoglobin 26.5 PG (27.0-31.0) L Mean Corpuscular Hemoglobin Concent 32.0 G/DL (32.0-36.0) Red Cell Distribution Width 16.9 % (11.6-14.8) H Platelet Count 390 K/UL (150-450) Mean Platelet Volume 6.2 FL (6.5-10.1) L Neutrophils (%) (Auto) 53.8 % (45.0-75.0) Lymphocytes (%) (Auto) 35.2 % (20.0-45.0) Monocytes (%) (Auto) 7.2 % (1.0-10.0) Eosinophils (%) (Auto) 2.3 % (0.0-3.0) Basophils (%) (Auto) 1.5 % (0.0-2.0) Prothrombin Time 10.3 SEC (9.30-11.50) Prothrombin Time INR 1.0 (0.9-1.1) PTT 25 SEC (23-33) Sodium Level 140 MMOL/L (136-145) Potassium Level 4.7 MMOL/L (3.5-5.1) Chloride Level 106 MMOL/L (98-107) Carbon Dioxide Level 23 MMOL/L (21-32) Anion Gap 11 mmol/L (5-15) Blood Urea Nitrogen 22 mg/dL (7-18) H Creatinine 1.1 MG/DL (0.55-1.30) Estimate Glomerular Filtration Rate > 60 mL/min (>60) Glucose Level 88 MG/DL (74-106) Calcium Level 8.8 MG/DL (8.5-10.1) Total Bilirubin 0.2 MG/DL (0.2-1.0) Aspartate Amino Transferase (AST) 17 U/L (15-37) Alanine Aminotransferase (ALT) 15 U/L (12-78) Alkaline Phosphatase 103 U/L (46-116) Total Creatine Kinase 60 U/L (26-308) Creatine Kinase MB 1.3 NG/ML (0.0-3.6) Creatine Kinase MB Relative Index 2.1 Troponin I 0.000 ng/mL (0.000-0.056) Total Protein 8.1 G/DL (6.4-8.2) Albumin 3.4 G/DL (3.4-5.0) Globulin 4.7 g/dL Albumin/Globulin Ratio 0.7 (1.0-2.7) L EKG Diagnostic Results Rate: normal Rhythm: NSR ST Segments: no acute changes Other Impression Unchanged from comparison Rhythm Strip Diag. Results EP Interpretation: yes Rate: 90's Rhythm: NSR, no PVC's, no ectopy Chest X-Ray Diagnostic Results Chest X-Ray Diagnostic Results : Chest X-Ray Ordered: Yes # of Views/Limited/Complete: 1 View Indication: Chest Pain EP Interpretation: Yes Interpretation: no consolidation, no effusion, no pneumothorax, no acute cardiopulmonary disease Impression: No acute disease Electronically Signed by: Artur Last Vital Signs Date Time Temp Pulse Resp B/P (MAP) Pulse Ox O2 Delivery O2 Flow Rate FiO2 08/31/18 11:43 98 16 100 Room Air 21 08/31/18 11:35 98.8 08/31/18 10:48 153/76 Status: improved Disposition: HOME, SELF-CARE Condition: Improved Referrals: NOT CHOSEN IPA/,REFERRING (PCP) Patient Instructions: Nonspecific Chest Pain Princess Rodrigez DO Aug 31, 2018 12:06
[2018-08-31] MEDS ORDERED: LIDODERM700 M1 TOPIC (12:07)
[2018-08-31 12:16] VITALS: BP 143/67
[2018-08-31 12:16] LABS: APPEARANCE,URINE CLEAR; BILIRUBIN, URINE NEGATIVE (NEGATIVE); COLOR,URINE PALE YELLOW; GLUCOSE, URINE (UA) NEGATIVE (NEGATIVE); KETONES,URINE NEGATIVE (NEGATIVE); LEUKOCYTE ESTERASE ,URINE NEGATIVE (NEGATIVE); NITRITE,URINE NEGATIVE (NEGATIVE); PH,URINE 6.5 (4.5-8.0); PROTEIN,URINE 1+ (NEGATIVE); UROBILINOGEN,URINE NORMAL MG/DL (0.0-1.0)
--- NOTE | 2018-09-01 14:55 | Cardiology Report ---
APPROVED REPORT EKG Measurement Heart [id number] Normal sinus rhythm Right atrial enlargement Nonspecific ST abnormality Abnormal ECG
== END 2018-08-31 12:16 | disposition home or self-care (01) ==
LOC: EMR 10:25
DX: R07.9 Chest pain, unspecified (principal); I25.10 Atherosclerotic heart disease of native coronary artery without angina pectoris; Z95.1 Presence of aortocoronary bypass graft; I25.2 Old myocardial infarction; I10 Essential (primary) hypertension; J44.9 Chronic obstructive pulmonary disease, unspecified; Z91.012 Allergy to eggs; Z88.5 Allergy status to narcotic agent; Z91.09 Other allergy status, other than to drugs and biological substances; Z87.19 Personal history of other diseases of the digestive system
CPT/HCPCS: 36415; 71045; 80053; 80307; 81003; 82550; 82553; 84484; 85025; 85610; 85730; 93005; 94640; 94664; 99284

== ENCOUNTER 2018-09-28 21:57 | Inpatient (IN) | payer MEDICARE, MEDICAID ==
[~2018-09-28] VITALS: Ht 185.4 cm; Wt 60.0 kg
[~2018-09-28 21:57] MED LIST changes: +ATORVASTATIN CA20 MG ORAL; +LIDODERM700 M1 TOPIC; +MECLIZINE HCL25 MG ORAL; +PRILOSEC OTC20 MG ORAL
[2018-09-28 22:17] VITALS: BP 192/81
[2018-09-28] MEDS ORDERED: HYDROmorphone 1mg/ml Carpuject IVP ONE (22:30)
--- NOTE | 2018-09-28 22:33 | Emergency Room Report ---
History of Present Illness General Chief Complaint: Chest Pain Source: Patient, Medical Record Present Illness HPI This is a 67-year-old male with history of CAD with previous CABG. He also has is a chronic pain and takes Dilaudid. He is out of his pain medication. He presents with chief complaint of chest pain. Onset for several days. No radiation. Nothing made it better. Nothing made it worse. Denies any fever or chills. Similar symptom in the past. Also with lower extremity swelling. Is also chronic in nature. According to his he doesn't get out of bed much. Denies any other complaint. No nausea no vomiting. Pain is 10 out of 10. Allergies: Coded Allergies: EGG (Verified Allergy, Unknown, 09/28/18) MEPERIDINE (Verified Allergy, Unknown, 09/28/18) MORPHINE (Verified Allergy, Unknown, 09/28/18) NITROGLYCERIN (Verified Allergy, Unknown, hives, 09/28/18) Patient History Past Medical History: see triage record, old chart reviewed Past Surgical History: CABG Pertinent Family History: none Social History: Denies: smoking Immunizations: other Reviewed Nursing Documentation: PMH: Agreed; PSxH: Agreed Nursing Documentation-PMH Hx Cardiac Problems: Yes Hx Hypertension: Yes Hx Pacemaker: No Hx Asthma: No Hx COPD: Yes Hx Diabetes: No Hx Cancer: No Hx Gastrointestinal Problems: Yes - Stomach Ulcer, Hep C Hx Dialysis: No - kidney problems Hx Neurological Problems: Yes - Seizures, HTN, Weakness Hx Cerebrovascular Accident: No Hx Transient Ischemic Attacks: No Hx Alzheimer's Disease: No Hx Encephalitis: No Hx Seizures: Yes Hx Epilepsy: No Hx Multiple Sclerosis: No Hx Cerebral Palsy: No Hx Amyotrophic Lat Sclerosis: No Hx Guillian-[place]iber[place] Syndrome: No Hx Paralysis: No Hx Peripheral Neuropathy: No Hx Spinal Cord Injury: No Hx Head Trauma: No Hx Traumatic Brain Injury: No Hx Memory Loss: No Hx Concentration Difficulty: No Hx Speech Problem: No Hx Tremors: Yes Hx Vertigo: No Hx Dizziness: No Hx Syncope: Yes Hx Headaches: Yes Hx Aphasia: No Hx Dysphasia: Yes Hx Numbness: No Hx Weakness: Yes Hx Fatigue: No Hx Neurologic Surgery: No Hx Brain Shunt: No Review of Systems Eye: Denies: eye pain, blurred vision ENT: Denies: ear pain, nose congestion, throat swelling Respiratory: Denies: cough, shortness of breath Cardiovascular: Reports: chest pain; Denies: palpitations Gastrointestinal: Denies: abdominal pain, diarrhea, nausea, vomiting Musculoskeletal: Denies: back pain, joint pain Skin: Denies: rash Neurological: Denies: headache, numbness Endocrine: Denies: increased thirst, increased urine Hematologic/Lymphatic: Denies: easy bruising All Other Systems: negative except mentioned in HPI Physical Exam Vital Signs Date Time Temp Pulse Resp B/P (MAP) Pulse Ox O2 Delivery O2 Flow Rate FiO2 09/28/18 22:02 98.1 123 16 165/107 98 Room Air vitals with tachycardia and htn Sp02 EP Interpretation: reviewed, normal General Appearance: no apparent distress, alert, cachetic, Chronically Ill Head: normocephalic, atraumatic Eyes: bilateral eye PERRL, bilateral eye EOMI ENT: hearing grossly normal, normal pharynx Neck: full range of motion, supple, no meningismus Respiratory: chest non-tender, lungs clear, normal breath sounds Cardiovascular #1: regular rate, rhythm, no murmur Gastrointestinal: normal bowel sounds, non tender, no mass, no organomegaly, no bruit, non-distended Musculoskeletal: back normal, normal range of motion, swelling - 2+ edema Neurologic: alert, oriented x3 Psychiatric: mood/affect normal Skin: warm/dry Medical Decision Making Diagnostic Impression: Primary Impression: Chest pain Qualified Codes: R07.9 - Chest pain, unspecified Additional Impressions: FTT (failure to thrive) in adult Chronic ulcer of right leg Qualified Codes: L97.919 - Non-pressure chronic ulcer of unspecified part of right lower leg with unspecified severity Chronic pain Qualified Codes: G89.4 - Chronic pain syndrome COPD exacerbation ER Course Patient with chest pain. This is a chronic issue. He is very cachectic. No evidence of ACS, PE, dissection. He does have risk factor for CAD with previous CABG. Will admit for further workup and pain control. I discussed the case with Dr. Wright and Dr. Magana who will be admitting. Lab Results Impression labs unremarkable EKG Diagnostic Results Rate: tachycardiac Rhythm: NSR ST Segments: no acute changes Rhythm Strip Diag. Results Rhythm Strip Time: 22:31 EP Interpretation: yes Rate: 110 Rhythm: NSR, no PVC's, no ectopy Chest X-Ray Diagnostic Results Chest X-Ray Diagnostic Results : Chest X-Ray Ordered: Yes # of Views/Limited/Complete: 1 View Indication: Chest Pain EP Interpretation: Yes Interpretation: no consolidation, no effusion, no pneumothorax, no acute cardiopulmonary disease Impression: No acute disease - copd Electronically Signed by: Juventino Sweeney MD Last Vital Signs Date Time Temp Pulse Resp B/P (MAP) Pulse Ox O2 Delivery O2 Flow Rate FiO2 09/28/18 22:02 98.1 123 16 165/107 98 Room Air Status: improved Disposition: ADMITTED INPATIENT Condition: Serious Juventino Sweeney MD Sep 28, 2018 22:32
[2018-09-28 22:42] LABS: BASOPHILS % (AUTO) 2.7 % (0.0-2.0); HEMATOCRIT 45.4 % (42.0-52.0); HEMOGLOBIN 14.8 G/DL (14.2-18.0); LYMPHOCYTES % (AUTO) 43.1 % (20.0-45.0); MEAN CORPUSCULAR VOLUME 83 FL (80-99); MONOCYTES % (AUTO) 6.8 % (1.0-10.0); NEUTROPHILS % (AUTO) 43.4 % (45.0-75.0); PLATELET COUNT 350 K/UL (150-450); RED BLOOD COUNT 5.47 M/UL (4.70-6.10); RED CELL DISTRIBUTION WIDTH 15.5 % (11.6-14.8); WHITE BLOOD COUNT 8.4 K/UL (4.8-10.8)
[2018-09-28 22:49] LABS: ANION GAP 7 mmol/L (5-15); BLOOD UREA NITROGEN 17 mg/dL (7-18); CALCIUM 9.2 MG/DL (8.5-10.1); CARBON DIOXIDE 27 MMOL/L (21-32); CHLORIDE 104 MMOL/L (98-107); CREATININE 1.5 MG/DL (0.55-1.30); SODIUM 138 MMOL/L (136-145)
[2018-09-28 23:03] LABS: ALANINE AMINOTRANSFERASE 13 U/L (12-78); ALBUMIN 3.2 G/DL (3.4-5.0); ALBUMIN/GLOBULIN RATIO 0.6 (1.0-2.7); ALKALINE PHOSPHATASE 131 U/L (46-116); ASPARTATE AMINO TRANSFERASE 25 U/L (15-37); BILIRUBIN,TOTAL 0.4 MG/DL (0.2-1.0); CKMB 2.2 NG/ML (0.0-3.6); CREATINE KINASE 239 U/L (26-308)
[2018-09-28] MEDS ORDERED: Albuterol/Ipratropium 3ml neb ONE (23:04)
[2018-09-28] MEDS ORDERED: Albuterol/Ipratropium 3ml neb HHN ONE (23:15)
[2018-09-28 23:30] VITALS: BP 154/69
[2018-09-29] MEDS ORDERED: Ketorolac 30mg Inj IV PRN (00:45)
[2018-09-29] MEDS ORDERED: Enalaprilat 2.5mg/2ml Inj IV PRN (00:45)
[2018-09-29] MEDS ORDERED: dilTIAZem HCl 25mg/5ml Inj IV PRN (00:45)
[2018-09-29] MEDS ORDERED: Miralax 17gm pkt ORAL PRN (00:45)
[2018-09-29 00:51] LABS: BILIRUBIN, URINE NEGATIVE (NEGATIVE); COLOR,URINE YELLOW; GLUCOSE, URINE (UA) NEGATIVE (NEGATIVE); KETONES,URINE NEGATIVE (NEGATIVE); NITRITE,URINE NEGATIVE (NEGATIVE); PH,URINE 8 (4.5-8.0); PROTEIN,URINE NEGATIVE (NEGATIVE); UROBILINOGEN,URINE 1 MG/DL (0.0-1.0)
[2018-09-29 00:52] LABS: APPEARANCE,URINE CLEAR
[2018-09-29 00:53] LABS: LEUKOCYTE ESTERASE ,URINE NEGATIVE (NEGATIVE)
[2018-09-29 00:56] VITALS: BP 140/82
[2018-09-29] MEDS: Albuterol/Ipratropium 3ml neb HHN PRN ×3 (01:05→22:31)
[2018-09-29] MEDS: HYDROmorphone 2 MG in NS 50 ML IVPB PRN ×3 (01:37→08:47)
[2018-09-29 04:00] VITALS: BP 124/64
[2018-09-29 08:00] VITALS: BP 119/63
[2018-09-29] MEDS: Aspirin Baby 81mg ORAL SCH (08:39)
[2018-09-29] MEDS: Theophylline ER 100mg ORAL SCH ×2 (08:39→20:16)
[2018-09-29] MEDS: Heparin 5000 units/ml inj SUBQ SCH ×2 (08:52→20:18)
--- NOTE | 2018-09-29 09:42 | Consultation ---
History of Present Illness General Date patient seen: Sep 29, 2018 Chief Complaint: Chest Pain Present Illness HPI 67-year-old male with history of emphysema, Chronic foot ulcer, CAD with previous CABG presented with chief complaint of chest pain for several days. Denies any fever or chills. Denies any other complaint. No nausea no vomiting. Pain is 10 out of 10. Also c/o swelling in right leg for a few days without any episode of pain. Allergies: Coded Allergies: EGG (Verified Allergy, Unknown, 09/28/18) MEPERIDINE (Verified Allergy, Unknown, 09/28/18) MORPHINE (Verified Allergy, Unknown, 09/28/18) NITROGLYCERIN (Verified Allergy, Unknown, hives, 09/28/18) Medication History Scheduled Aspirin* (Aspirin*), 325 MG ORAL DAILY, (Reported) Atorvastatin Calcium* (Atorvastatin Calcium*), 20 MG ORAL BEDTIME, (Reported) Hydromorphone Hcl (Hydromorphone Hcl), 8 MG PO Q6HR, (Reported) Levetiracetam (Keppra), 500 MG ORAL DAILY, (Reported) Metoprolol Succinate* (Metoprolol Succinate*), 50 MG ORAL BID, (Reported) Mirtazapine* (Remeron*), 15 MG ORAL BEDTIME, (Reported) Prednisone* (Prednisone*), 20 MG ORAL DAILY, (Reported) Theophylline (Theodur*), 100 MG ORAL EVERY 12 HOURS Scheduled PRN Albuterol Sulfate (Ventolin Hfa), 1 PUFF INH EVERY 6 HOURS PRN Discontinued Medications Amlodipine Besylate* (Amlodipine Besylate*), 10 MG ORAL DAILY, (Reported) Discontinued Reason: Therapy completed Cephalexin* (Keflex*), 500 MG ORAL EVERY 8 HOURS, (Reported) Discontinued Reason: Therapy completed Clopidogrel Bisulfate* (Plavix*), 75 MG ORAL DAILY, (Reported) Discontinued Reason: Therapy completed Docusate Sodium* (Colace*), 100 MG ORAL DAILY PRN for Constipation, (Reported) Discontinued Reason: Therapy completed Lidocaine (Lidoderm), 1 PATCH TOPIC see instructions Discontinued Reason: Therapy completed Meclizine Hcl* (Meclizine*), 25 MG ORAL THREE TIMES A DAY, (Reported) Discontinued Reason: Therapy completed Omeprazole Magnesium (Prilosec Otc), 40 MG ORAL DAILY, (Reported) Discontinued Reason: Therapy completed Ondansetron Hcl* (Zofran*), 8 MG ORAL Q6H PRN for Nausea & Vomiting, (Reported) Discontinued Reason: Therapy completed Oxycodone Hcl/Acetaminophen 10-325* (Oxycodone-Acetaminophen 10-325*), 1 TAB ORAL Q4H PRN for For Pain, (Reported) Discontinued Reason: Therapy completed Ranitidine Hcl* (Zantac*), 150 MG ORAL Q12HR Discontinued Reason: Therapy completed Patient History Healthcare decision maker Resuscitation status Full Code Advanced Directive on File Past Medical/Surgical History Past Medical/Surgical History: (1) Emphysema lung (2) Decubitus ulcer, ankle, right, unstageable (3) CAD (coronary artery disease) (4) Hypothyroidism (5) Peripheral vascular disease (6) Severe malnutrition (7) Peripheral arterial disease (8) Hx of CABG Review of Systems All Other Systems: negative except mentioned in HPI Physical Exam General Appearance: cachetic Lines, tubes and drains: peripheral HEENT: normocephalic, atraumatic Neck: non-tender, normal alignment Respiratory/Chest: chest wall non-tender, lungs clear Cardiovascular/Chest: normal peripheral pulses, normal rate Abdomen: normal bowel sounds, non tender Extremities: normal range of motion Skin Exam: normal pigmentation Last 24 Hour Vital Signs Date Time Temp Pulse Resp B/P (MAP) Pulse Ox O2 Delivery O2 Flow Rate FiO2 09/29/18 08:18 101 18 97 Room Air 21 09/29/18 08:11 Room Air 21 09/29/18 08:11 95 Room Air 21 09/29/18 08:11 103 18 95 Room Air 21 09/29/18 04:00 98.1 101 20 124/64 (84) 98 09/29/18 04:00 107 09/29/18 02:55 Nasal Cannula 2.0 09/29/18 01:11 103 18 99 Nasal Cannula 2.0 28 09/29/18 01:08 Nasal Cannula 2.0 28 09/29/18 01:08 98 Nasal Cannula 2.0 28 09/29/18 01:04 97 18 98 Nasal Cannula 2.0 28 09/29/18 00:56 98.0 111 20 140/82 (101) 96 09/29/18 00:30 97.1 98 19 151/65 100 Nasal Cannula 2.0 09/28/18 23:35 192/81 09/28/18 23:30 106 18 154/69 100 Room Air 09/28/18 23:22 98 15 100 Room Air 21 09/28/18 23:10 100 17 100 Room Air 21 09/28/18 23:10 100 17 Room Air 21 09/28/18 23:00 98.1 09/28/18 22:17 98.1 127 16 192/81 98 Room Air 09/28/18 22:17 127 19 09/28/18 22:02 98.1 123 16 165/107 98 Room Air Intake and Output 09/28/18 09/29/18 19:00 07:00 Intake Total 460 ml Balance 460 ml Intake Oral 460 ml # Bowel Movements 1 Laboratory Tests Test 09/28/18 22:00 09/29/18 00:25 09/29/18 06:30 White Blood Count 8.4 K/UL (4.8-10.8) Red Blood Count 5.47 M/UL (4.70-6.10) Hemoglobin 14.8 G/DL (14.2-18.0) Hematocrit 45.4 % (42.0-52.0) Mean Corpuscular Volume 83 FL (80-99) Mean Corpuscular Hemoglobin 27.0 PG (27.0-31.0) Mean Corpuscular Hemoglobin Concent 32.6 G/DL (32.0-36.0) Red Cell Distribution Width 15.5 % (11.6-14.8) H Platelet Count 350 K/UL (150-450) Mean Platelet Volume 6.0 FL (6.5-10.1) L Neutrophils (%) (Auto) 43.4 % (45.0-75.0) L Lymphocytes (%) (Auto) 43.1 % (20.0-45.0) Monocytes (%) (Auto) 6.8 % (1.0-10.0) Eosinophils (%) (Auto) 4.0 % (0.0-3.0) H Basophils (%) (Auto) 2.7 % (0.0-2.0) H Prothrombin Time 10.5 SEC (9.30-11.50) Prothromb Time International Ratio 1.0 (0.9-1.1) Activated Partial Thromboplast Time 33 SEC (23-33) Sodium Level 138 MMOL/L (136-145) Potassium Level 5.0 MMOL/L (3.5-5.1) Chloride Level 104 MMOL/L (98-107) Carbon Dioxide Level 27 MMOL/L (21-32) Anion Gap 7 mmol/L (5-15) Blood Urea Nitrogen 17 mg/dL (7-18) Creatinine 1.5 MG/DL (0.55-1.30) H Estimat Glomerular Filtration Rate 56.4 mL/min (>60) Glucose Level 93 MG/DL (74-106) Calcium Level 9.2 MG/DL (8.5-10.1) Total Bilirubin 0.4 MG/DL (0.2-1.0) Aspartate Amino Transf (AST/SGOT) 25 U/L (15-37) Alanine Aminotransferase (ALT/SGPT) 13 U/L (12-78) Alkaline Phosphatase 131 U/L (46-116) H Total Creatine Kinase 239 U/L (26-308) Creatine Kinase MB 2.2 NG/ML (0.0-3.6) Creatine Kinase MB Relative Index 0.9 Troponin I 0.008 ng/mL (0.000-0.056) 0.017 ng/mL (0.000-0.056) Pro-B-Type Natriuretic Peptide 416 pg/mL (0-125) H Total Protein 8.6 G/DL (6.4-8.2) H Albumin 3.2 G/DL (3.4-5.0) L Globulin 5.4 g/dL Albumin/Globulin Ratio 0.6 (1.0-2.7) L Urine Color Yellow Urine Appearance Clear Urine pH 8 (4.5-8.0) Urine Specific Thelma 1.010 (1.005-1.035) Urine Protein Negative (NEGATIVE) Urine Glucose (UA) Negative (NEGATIVE) Urine Ketones Negative (NEGATIVE) Urine Blood Negative (NEGATIVE) Urine Nitrite Negative (NEGATIVE) Urine Bilirubin Negative (NEGATIVE) Urine Urobilinogen 1 MG/DL (0.0-1.0) H Urine Leukocyte Esterase Negative (NEGATIVE) Height (Feet): 6 Height (Inches): 1.00 Weight (Pounds): 130 Medications Current Medications Medications (Trade) Dose Ordered Sig/Aminata Route PRN Reason Start Time Stop Time Status Last Admin Dose Admin Acetaminophen (Tylenol) 650 mg Q4H PRN ORAL FEVER 09/29/18 00:45 10/29/18 00:44 Albuterol/ Ipratropium (Albuterol/ Ipratropium) 3 ml Q4H PRN HHN Shortness of Breath 09/29/18 00:45 10/04/18 00:44 09/29/18 08:10 Aspirin (ASA) 162 mg DAILY ORAL 09/29/18 09:00 10/29/18 08:59 09/29/18 08:39 Diltiazem HCl (Cardizem) 10 mg Q1H PRN IV heart rate more than 120, 09/29/18 00:45 10/29/18 00:44 Enalaprilat (Vasotec) 2.5 mg Q6H PRN IV sbp more than 160 09/29/18 00:45 10/29/18 00:44 Heparin Sodium (Porcine) (Heparin 5000 units/ml) 5,000 units EVERY 12 HOURS SUBQ 09/29/18 09:00 10/29/18 08:59 Hydromorphone HCl (Dilaudid) 2 mg EVERY 3 HOURS PRN IVP severe pain 09/29/18 09:45 10/06/18 09:44 UNV Ketorolac Tromethamine (Toradol 30mg) 30 mg Q6H PRN IV moderate pain ( 4-6) 09/29/18 00:45 10/04/18 00:44 Levetiracetam (Keppra) 500 mg DAILY ORAL 09/29/18 09:00 10/29/18 08:59 09/29/18 08:39 Mirtazapine (Remeron) 15 mg BEDTIME ORAL 09/29/18 21:00 10/29/18 20:59 Ondansetron HCl (Zofran) 4 mg Q6H PRN IVP Nausea & Vomiting 09/29/18 00:45 10/29/18 00:44 Polyethylene Glycol (Miralax) 17 gm DAILYPRN PRN ORAL Constipation 09/29/18 00:45 10/29/18 00:44 Temazepam (Restoril) 15 mg HSPRN PRN ORAL Insomnia 09/29/18 00:45 10/06/18 00:44 Theophylline (Wilfrido-Dur) 100 mg EVERY 12 HOURS ORAL 09/29/18 09:00 10/29/18 08:59 09/29/18 08:39 Assessment/Plan Problem List: (1) ACS (acute coronary syndrome) ICD Codes: I24.9 - Acute coronary syndrome SNOMED: 078374195 (2) Costochondritis ICD Codes: M94.0 - Chondrocostal junction syndrome [Tietze] SNOMED: 94728685 (3) Cellulitis of right leg ICD Codes: L03.115 - Cellulitis of right lower limb SNOMED: 972858921 (4) ATN (acute tubular necrosis) ICD Codes: N17.0 - Acute kidney failure with tubular necrosis SNOMED: 32363605 (5) CAD (coronary artery disease) ICD Codes: I25.10 - Atherosclerosis of coronary artery SNOMED: 133870629 (6) Severe malnutrition ICD Codes: E43 - Unspecified severe protein-calorie malnutrition SNOMED: 07353502 (7) Peripheral arterial disease ICD Codes: I73.9 - Peripheral vascular disease, unspecified SNOMED: 020633501, 434526455 Assessment/Plan serial ekg, troponin cardiology to see venous doppler of legs pain management ID and Podiatry to see. dvt prophylaxis. Jessie Magana MD Sep 29, 2018 09:42
--- NOTE | 2018-09-29 10:45 | Diagnostic Imaging Report ---
Indication: Chest pain Comparison: 08/31/2018 A single view chest radiograph was obtained. Findings: Sternotomy noted. Lungs are hyperexpanded. Heart size is normal. Bones are osteopenic. IMPRESSION: COPD. No change
[2018-09-29 12:00] VITALS: BP 114/73
[2018-09-29] MEDS: Sucralfate 1gm tab ORAL SCH ×3 (12:18→20:16)
--- NOTE | 2018-09-29 13:53 | Consultation ---
Consult Note Consult Note [id number] Reuben Reich MD Sep 29, 2018 13:53
--- NOTE | 2018-09-29 15:56 | Cardiology Report ---
APPROVED REPORT EXAM: Two-dimensional and M-mode echocardiogram with Doppler and color Doppler. INDICATION LV FUNCTION M-Mode DIMENSIONS IVSd0.9 (0.7-1.1cm)Left Atrium (MM)2.4 (1.6-4.0cm) LVDd3.9 (3.5-5.6cm)Aortic Root3.3 (2.0-3.7cm) PWd1.1 (0.7-1.1cm)Aortic Cusp Exc.1.9 (1.5-2.0cm) IVSs1.2 cm LVDs2.8 (2.5-4.0cm) PWs1.3 cm Technically difficult study due to poor acoustical windows . Study quality precludes accurate assessment of regional wall motion. Normal left ventricular chamber size,normal systolic function and wall motion to extent visualized. Left ventricular ejection fraction estimated to be 55-60%. Mild left ventricular hypertrophy . No evidence of pericardial effusion. All other cardiac chamber sizes are within normal limits. Focal aortic valve sclerosis with adequate cusp excursion. Mildly Thickened mitral valve leaflets with normal excursion. Mildly Mitral annulus and aortic root calcification. Pulmonic valve not well visualized. Normal tricuspid valve structure. IVC at size 1.6 cm with physiologic collapse s. A color flow and spectral Doppler study was performed and revealed: No aortic insufficiency . Trace mitral regurgitation. Mitral diastolic velocities suggest reduced left ventricular relaxation c/w mild LV diastolic dysfunction (Grade I ). Mild tricuspid regurgitation. Tricuspid systolic velocities suggests peak right ventricular systolic pressure of 30mmHg.
[2018-09-29 16:00] VITALS: BP 112/68
--- NOTE | 2018-09-29 16:35 | History & Physical ---
History and Physical History & Physicial Dictated for Int Med-Dr Wright no. [id number]. Shantanu Reyna MD Sep 29, 2018 16:35
--- NOTE | 2018-09-29 16:40 | Cardiology Report ---
APPROVED REPORT EKG Measurement Heart [id number] ID [id number] Sinus tachycardia Biatrial enlargement Septal infarct, age undetermined Abnormal ECG
--- NOTE | 2018-09-29 18:28 | Consultation ---
History of Present Illness General Chief Complaint: Chest Pain Present Illness Allergies: Coded Allergies: EGG (Verified Allergy, Unknown, 09/28/18) MEPERIDINE (Verified Allergy, Unknown, 09/28/18) MORPHINE (Verified Allergy, Unknown, 09/28/18) NITROGLYCERIN (Verified Allergy, Unknown, hives, 09/28/18) Medication History Scheduled Aspirin* (Aspirin*), 325 MG ORAL DAILY, (Reported) Atorvastatin Calcium* (Atorvastatin Calcium*), 20 MG ORAL BEDTIME, (Reported) Hydromorphone Hcl (Hydromorphone Hcl), 8 MG PO Q6HR, (Reported) Levetiracetam (Keppra), 500 MG ORAL DAILY, (Reported) Metoprolol Succinate* (Metoprolol Succinate*), 50 MG ORAL BID, (Reported) Mirtazapine* (Remeron*), 15 MG ORAL BEDTIME, (Reported) Prednisone* (Prednisone*), 20 MG ORAL DAILY, (Reported) Theophylline (Theodur*), 100 MG ORAL EVERY 12 HOURS Scheduled PRN Albuterol Sulfate (Ventolin Hfa), 1 PUFF INH EVERY 6 HOURS PRN Discontinued Medications Amlodipine Besylate* (Amlodipine Besylate*), 10 MG ORAL DAILY, (Reported) Discontinued Reason: Therapy completed Cephalexin* (Keflex*), 500 MG ORAL EVERY 8 HOURS, (Reported) Discontinued Reason: Therapy completed Clopidogrel Bisulfate* (Plavix*), 75 MG ORAL DAILY, (Reported) Discontinued Reason: Therapy completed Docusate Sodium* (Colace*), 100 MG ORAL DAILY PRN for Constipation, (Reported) Discontinued Reason: Therapy completed Lidocaine (Lidoderm), 1 PATCH TOPIC see instructions Discontinued Reason: Therapy completed Meclizine Hcl* (Meclizine*), 25 MG ORAL THREE TIMES A DAY, (Reported) Discontinued Reason: Therapy completed Omeprazole Magnesium (Prilosec Otc), 40 MG ORAL DAILY, (Reported) Discontinued Reason: Therapy completed Ondansetron Hcl* (Zofran*), 8 MG ORAL Q6H PRN for Nausea & Vomiting, (Reported) Discontinued Reason: Therapy completed Oxycodone Hcl/Acetaminophen 10-325* (Oxycodone-Acetaminophen 10-325*), 1 TAB ORAL Q4H PRN for For Pain, (Reported) Discontinued Reason: Therapy completed Ranitidine Hcl* (Zantac*), 150 MG ORAL Q12HR Discontinued Reason: Therapy completed Patient History Healthcare decision maker Resuscitation status Full Code Advanced Directive on File Physical Exam Last 24 Hour Vital Signs Date Time Temp Pulse Resp B/P (MAP) Pulse Ox O2 Delivery O2 Flow Rate FiO2 09/29/18 16:22 98.1 09/29/18 16:00 98 09/29/18 16:00 98.1 96 20 112/68 (83) 95 09/29/18 12:00 107 09/29/18 12:00 97.9 110 21 114/73 (87) 96 09/29/18 11:05 Nasal Cannula 2.0 09/29/18 08:18 101 18 97 Room Air 21 09/29/18 08:11 Room Air 21 09/29/18 08:11 95 Room Air 21 09/29/18 08:11 103 18 95 Room Air 21 09/29/18 08:00 102 09/29/18 08:00 97.7 104 20 119/63 (81) 99 09/29/18 04:00 98.1 101 20 124/64 (84) 98 09/29/18 04:00 107 09/29/18 02:55 Nasal Cannula 2.0 09/29/18 01:11 103 18 99 Nasal Cannula 2.0 28 09/29/18 01:08 Nasal Cannula 2.0 28 09/29/18 01:08 98 Nasal Cannula 2.0 28 09/29/18 01:04 97 18 98 Nasal Cannula 2.0 28 09/29/18 00:56 98.0 111 20 140/82 (101) 96 09/29/18 00:30 97.1 98 19 151/65 100 Nasal Cannula 2.0 09/28/18 23:35 192/81 09/28/18 23:30 106 18 154/69 100 Room Air 09/28/18 23:22 98 15 100 Room Air 21 09/28/18 23:10 100 17 100 Room Air 21 09/28/18 23:10 100 17 Room Air 21 09/28/18 23:00 98.1 09/28/18 22:17 98.1 127 16 192/81 98 Room Air 09/28/18 22:17 127 19 09/28/18 22:02 98.1 123 16 165/107 98 Room Air Intake and Output 09/28/18 09/29/18 18:59 06:59 Intake Total 460 ml Balance 460 ml Intake Oral 460 ml # Bowel Movements 1 Laboratory Tests Test 09/28/18 22:00 09/29/18 00:25 09/29/18 06:30 White Blood Count 8.4 K/UL (4.8-10.8) Red Blood Count 5.47 M/UL (4.70-6.10) Hemoglobin 14.8 G/DL (14.2-18.0) Hematocrit 45.4 % (42.0-52.0) Mean Corpuscular Volume 83 FL (80-99) Mean Corpuscular Hemoglobin 27.0 PG (27.0-31.0) Mean Corpuscular Hemoglobin Concent 32.6 G/DL (32.0-36.0) Red Cell Distribution Width 15.5 % (11.6-14.8) H Platelet Count 350 K/UL (150-450) Mean Platelet Volume 6.0 FL (6.5-10.1) L Neutrophils (%) (Auto) 43.4 % (45.0-75.0) L Lymphocytes (%) (Auto) 43.1 % (20.0-45.0) Monocytes (%) (Auto) 6.8 % (1.0-10.0) Eosinophils (%) (Auto) 4.0 % (0.0-3.0) H Basophils (%) (Auto) 2.7 % (0.0-2.0) H Prothrombin Time 10.5 SEC (9.30-11.50) Prothromb Time International Ratio 1.0 (0.9-1.1) Activated Partial Thromboplast Time 33 SEC (23-33) Sodium Level 138 MMOL/L (136-145) Potassium Level 5.0 MMOL/L (3.5-5.1) Chloride Level 104 MMOL/L (98-107) Carbon Dioxide Level 27 MMOL/L (21-32) Anion Gap 7 mmol/L (5-15) Blood Urea Nitrogen 17 mg/dL (7-18) Creatinine 1.5 MG/DL (0.55-1.30) H Estimat Glomerular Filtration Rate 56.4 mL/min (>60) Glucose Level 93 MG/DL (74-106) Calcium Level 9.2 MG/DL (8.5-10.1) Total Bilirubin 0.4 MG/DL (0.2-1.0) Aspartate Amino Transf (AST/SGOT) 25 U/L (15-37) Alanine Aminotransferase (ALT/SGPT) 13 U/L (12-78) Alkaline Phosphatase 131 U/L (46-116) H Total Creatine Kinase 239 U/L (26-308) Creatine Kinase MB 2.2 NG/ML (0.0-3.6) Creatine Kinase MB Relative Index 0.9 Troponin I 0.008 ng/mL (0.000-0.056) 0.017 ng/mL (0.000-0.056) Pro-B-Type Natriuretic Peptide 416 pg/mL (0-125) H Total Protein 8.6 G/DL (6.4-8.2) H Albumin 3.2 G/DL (3.4-5.0) L Globulin 5.4 g/dL Albumin/Globulin Ratio 0.6 (1.0-2.7) L Urine Color Yellow Urine Appearance Clear Urine pH 8 (4.5-8.0) Urine Specific [place] 1.010 (1.005-1.035) Urine Protein Negative (NEGATIVE) Urine Glucose (UA) Negative (NEGATIVE) Urine Ketones Negative (NEGATIVE) Urine Blood Negative (NEGATIVE) Urine Nitrite Negative (NEGATIVE) Urine Bilirubin Negative (NEGATIVE) Urine Urobilinogen 1 MG/DL (0.0-1.0) H Urine Leukocyte Esterase Negative (NEGATIVE) Height (Feet): 6 Height (Inches): 1.00 Weight (Pounds): 130 Medications Current Medications Medications (Trade) Dose Ordered Sig/Aminata Route PRN Reason Start Time Stop Time Status Last Admin Dose Admin Acetaminophen (Tylenol) 650 mg Q4H PRN ORAL FEVER 09/29/18 00:45 10/29/18 00:44 Albuterol/ Ipratropium (Albuterol/ Ipratropium) 3 ml Q4H PRN HHN Shortness of Breath 09/29/18 00:45 10/04/18 00:44 09/29/18 08:10 Aspirin (ASA) 162 mg DAILY ORAL 09/29/18 09:00 10/29/18 08:59 09/29/18 08:39 Diltiazem HCl (Cardizem) 10 mg Q1H PRN IV heart rate more than 120, 09/29/18 00:45 10/29/18 00:44 Enalaprilat (Vasotec) 2.5 mg Q6H PRN IV sbp more than 160 09/29/18 00:45 10/29/18 00:44 Heparin Sodium (Porcine) (Heparin 5000 units/ml) 5,000 units EVERY 12 HOURS SUBQ 09/29/18 09:00 10/29/18 08:59 Hydromorphone HCl (Dilaudid) 2 mg Q3H PRN IVP severe pain 09/29/18 09:45 10/06/18 09:44 09/29/18 15:52 Levetiracetam (Keppra) 500 mg DAILY ORAL 09/29/18 09:00 10/29/18 08:59 09/29/18 08:39 Mirtazapine (Remeron) 30 mg BEDTIME ORAL 09/29/18 21:00 10/29/18 20:59 Ondansetron HCl (Zofran) 4 mg Q6H PRN IVP Nausea & Vomiting 09/29/18 00:45 10/29/18 00:44 Pantoprazole (Protonix) 40 mg EVERY 12 HOURS ORAL 09/29/18 21:00 10/29/18 20:59 Polyethylene Glycol (Miralax) 17 gm DAILYPRN PRN ORAL Constipation 09/29/18 00:45 10/29/18 00:44 Sucralfate (Carafate) 1 gm FOUR TIMES A DAY ORAL 09/29/18 13:00 10/29/18 12:59 09/29/18 17:29 Temazepam (Restoril) 15 mg HSPRN PRN ORAL Insomnia 09/29/18 00:45 10/06/18 00:44 Theophylline (Wilfrido-Dur) 100 mg EVERY 12 HOURS ORAL 09/29/18 09:00 10/29/18 08:59 09/29/18 08:39 Adonis Winn MD Sep 29, 2018 18:28
--- NOTE | 2018-09-29 19:15 | Consultation ---
DATE OF CONSULTATION: CONSULTING PHYSICIAN: Rachael Buckley M.D. HISTORY OF PRESENT ILLNESS: The patient is a 67-year-old male who has recurrent hospitalization, who has been re-admitted for medical stabilization. The patient is irritable and angry. Stated that his medication ran out and he has called my office for refills on his pain medication and hypertensive medications. I notified him that I have given him refills on his antidepressant. The patient was very illogical and stated that he had that medication, however, he needed more medication for pain. The patient is unable to understand that this physician is not a pain management doctor nor a general practitioner. The patient was very circumstantial, started other doctors. The patient is complaining of low appetite and insomnia. PAST PSYCHIATRIC HISTORY: Depression and anxiety. He has been on Remeron. PAST MEDICAL HISTORY: Several medical issues including emphysema, costochondritis, back pain, opiate pain medication dependence, cellulitis of right leg, hip dislocation, failure to thrive, COPD, hypertension, pneumonia, acute bronchitis, acute tubular necrosis, and coronary artery disease. ALLERGIES: Egg, meperidine, morphine, and nitroglycerin. SUBSTANCE ABUSE HISTORY: Significant for drugs and question for illicit drugs and opiate pain medications. MENTAL STATUS EXAMINATION: GENERAL: Alert and oriented times self, place, and situation he is in. Mood is irritable. Affect is constricted, congruent with mood. Thought process is concrete. Thought content, no suicidal or homicidal ideation. Cognition is impaired. ASSESSMENT: Elmore I Major depressive disorder, opiate pain medication dependence. Elmore II Deferred. Elmore III As above. Elmore IV Low. Elmore V PLAN: 1. We will continue the patient on Remeron. We will increase it to 30 mg at bedtime. 2. Provide the patient with supportive therapy and reality orientation. Rachael Buckley M.D. SUHAIL Rondon JOB#: [id number] CC:
[2018-09-29 20:00] VITALS: BP 125/77
--- NOTE | 2018-09-29 20:30 | Consultation ---
DATE OF CONSULTATION: 09/29/2018 INFECTIOUS DISEASE CONSULTATION CONSULTING PHYSICIAN: Reuben Reich M.D. REFERRING PHYSICIANS: 1. Phil Wright M.D. 2. Jessie Magana M.D. REASON FOR CONSULTATION: Evaluation of the patient for pneumonia and antibiotic management. HISTORY OF PRESENT ILLNESS: The patient is a 67-year-old male with multiple medical problems, as listed below, who was admitted to this medical center due to shortness of breath. Also, the patient is complaining of lower extremity pain and swelling. The patient is well known to our service from prior recent admissions including having osteomyelitis of the leg. Infectious Disease consultation has been requested for further evaluation of the patient and antibiotic management. PAST MEDICAL HISTORY: 1. History of chronic obstructive pulmonary disease. 2. History of right lower extremity osteomyelitis. 3. Hypertension. 4. Malnutrition. 5. History of alcohol abuse. 6. Seizure disorder. 7. Diabetes. 8. Coronary artery disease/coronary artery bypass graft. MEDICATION: Currently, is off of antibiotics. ALLERGIES: No allergies to antibiotics. FAMILY HISTORY: Noncontributory. SOCIAL HISTORY: for a total of 5 years. PHYSICAL EXAMINATION: VITAL SIGNS: Temperature 97.1, pulse 86, respiratory rate 18, and blood pressure 114/73. HEENT: No pale conjunctivae. No icterus. CHEST: Coarse breathing sounds. HEART: S1 and S2. ABDOMEN: Soft and nontender. EXTREMITY: No cyanosis. The patient has a superficial wound of the right lateral ankle. No sign of infection. NEUROLOGIC: Awake and alert. LABORATORY DATA: White blood cells 8.4, hemoglobin 14, and platelets 350,000. UA unremarkable. BUN 17 and creatinine 1.3. ALT and AST are unremarkable. Alkaline phosphatase 151. Chest x-ray, chronic obstructive pulmonary disease. ASSESSMENT: The patient is a 67-year-old male with, 1. Chronic obstructive pulmonary disease exacerbation. 2. Afebrile. 3. Normal white blood cells. PLAN: 1. We will continue the patient on doxycycline orally day #11/28. 2. Monitor CBC. 3. Monitor BMP. 4. Monitor chest x-ray. 5. Based on the patient's clinical course and labs, we will do further recommendation. Reuben Reich M.D. DR: RIANNA JOB#: [id number] CC:
--- NOTE | 2018-09-29 22:15 | Consultation ---
History of Present Illness General Date patient seen: Sep 29, 2018 Time patient seen: 22:14 Chief Complaint: Chest Pain Present Illness HPI 67 year old AAM with CAD and chronic angina presents with recurrent chest pain. Troponin negative, vitals stable. Questionable compliance with medications. NO fevers, no trauma, no palpitations. Allergies: Coded Allergies: EGG (Verified Allergy, Unknown, 09/28/18) MEPERIDINE (Verified Allergy, Unknown, 09/28/18) MORPHINE (Verified Allergy, Unknown, 09/28/18) NITROGLYCERIN (Verified Allergy, Unknown, hives, 09/28/18) Medication History Scheduled Aspirin* (Aspirin*), 325 MG ORAL DAILY, (Reported) Atorvastatin Calcium* (Atorvastatin Calcium*), 20 MG ORAL BEDTIME, (Reported) Hydromorphone Hcl (Hydromorphone Hcl), 8 MG PO Q6HR, (Reported) Levetiracetam (Keppra), 500 MG ORAL DAILY, (Reported) Metoprolol Succinate* (Metoprolol Succinate*), 50 MG ORAL BID, (Reported) Mirtazapine* (Remeron*), 15 MG ORAL BEDTIME, (Reported) Prednisone* (Prednisone*), 20 MG ORAL DAILY, (Reported) Theophylline (Theodur*), 100 MG ORAL EVERY 12 HOURS Scheduled PRN Albuterol Sulfate (Ventolin Hfa), 1 PUFF INH EVERY 6 HOURS PRN Discontinued Medications Amlodipine Besylate* (Amlodipine Besylate*), 10 MG ORAL DAILY, (Reported) Discontinued Reason: Therapy completed Cephalexin* (Keflex*), 500 MG ORAL EVERY 8 HOURS, (Reported) Discontinued Reason: Therapy completed Clopidogrel Bisulfate* (Plavix*), 75 MG ORAL DAILY, (Reported) Discontinued Reason: Therapy completed Docusate Sodium* (Colace*), 100 MG ORAL DAILY PRN for Constipation, (Reported) Discontinued Reason: Therapy completed Lidocaine (Lidoderm), 1 PATCH TOPIC see instructions Discontinued Reason: Therapy completed Meclizine Hcl* (Meclizine*), 25 MG ORAL THREE TIMES A DAY, (Reported) Discontinued Reason: Therapy completed Omeprazole Magnesium (Prilosec Otc), 40 MG ORAL DAILY, (Reported) Discontinued Reason: Therapy completed Ondansetron Hcl* (Zofran*), 8 MG ORAL Q6H PRN for Nausea & Vomiting, (Reported) Discontinued Reason: Therapy completed Oxycodone Hcl/Acetaminophen 10-325* (Oxycodone-Acetaminophen 10-325*), 1 TAB ORAL Q4H PRN for For Pain, (Reported) Discontinued Reason: Therapy completed Ranitidine Hcl* (Zantac*), 150 MG ORAL Q12HR Discontinued Reason: Therapy completed Patient History Healthcare decision maker Resuscitation status Full Code Advanced Directive on File Review of Systems Constitutional: Reports: no symptoms Eye: Reports: no symptoms ENT: Reports: no symptoms Respiratory: Reports: no symptoms Cardiovascular: Reports: chest pain Gastrointestinal: Reports: no symptoms Genitourinary: Reports: no symptoms Musculoskeletal: Reports: no symptoms Skin: Reports: no symptoms Psychiatric: Reports: no symptoms Neurological: Reports: no symptoms Endocrine: Reports: no symptoms Hematologic/Lymphatic: Reports: no symptoms Physical Exam General Appearance: no apparent distress, alert Lines, tubes and drains: peripheral HEENT: normocephalic, atraumatic, anicteric, mucous membranes moist, PERRL Neck: non-tender, normal alignment, supple, normal inspection Respiratory/Chest: chest wall non-tender, lungs clear, normal breath sounds Cardiovascular/Chest: normal peripheral pulses, normal rate, regular rhythm Abdomen: normal bowel sounds, non tender, soft Extremities: normal range of motion, non-tender Skin Exam: normal pigmentation, warm/dry, cyanotic Neurologic: receiving worker II-XII grossly normal, no motor/sensory deficits, alert, oriented x 3, responsive Last 24 Hour Vital Signs Date Time Temp Pulse Resp B/P (MAP) Pulse Ox O2 Delivery O2 Flow Rate FiO2 09/29/18 21:00 Nasal Cannula 2.0 09/29/18 20:00 98.1 95 18 125/77 (93) 95 09/29/18 20:00 105 09/29/18 16:22 98.1 09/29/18 16:00 98 09/29/18 16:00 98.1 96 20 112/68 (83) 95 09/29/18 12:00 107 09/29/18 12:00 97.9 110 21 114/73 (87) 96 09/29/18 11:05 Nasal Cannula 2.0 09/29/18 08:18 101 18 97 Room Air 21 09/29/18 08:11 Room Air 21 09/29/18 08:11 95 Room Air 21 09/29/18 08:11 103 18 95 Room Air 21 09/29/18 08:00 102 09/29/18 08:00 97.7 104 20 119/63 (81) 99 09/29/18 04:00 98.1 101 20 124/64 (84) 98 09/29/18 04:00 107 09/29/18 02:55 Nasal Cannula 2.0 09/29/18 01:11 103 18 99 Nasal Cannula 2.0 28 09/29/18 01:08 Nasal Cannula 2.0 28 09/29/18 01:08 98 Nasal Cannula 2.0 28 09/29/18 01:04 97 18 98 Nasal Cannula 2.0 28 09/29/18 00:56 98.0 111 20 140/82 (101) 96 09/29/18 00:30 97.1 98 19 151/65 100 Nasal Cannula 2.0 09/28/18 23:35 192/81 09/28/18 23:30 106 18 154/69 100 Room Air 09/28/18 23:22 98 15 100 Room Air 21 09/28/18 23:10 100 17 100 Room Air 21 09/28/18 23:10 100 17 Room Air 21 09/28/18 23:00 98.1 09/28/18 22:17 98.1 127 16 192/81 98 Room Air 09/28/18 22:17 127 19 Intake and Output 09/28/18 09/29/18 19:00 07:00 Intake Total 460 ml Balance 460 ml Intake Oral 460 ml # Bowel Movements 1 Laboratory Tests Test 09/29/18 00:25 09/29/18 06:30 Urine Color Yellow Urine Appearance Clear Urine pH 8 (4.5-8.0) Urine Specific [employer] 1.010 (1.005-1.035) Urine Protein Negative (NEGATIVE) Urine Glucose (UA) Negative (NEGATIVE) Urine Ketones Negative (NEGATIVE) Urine Blood Negative (NEGATIVE) Urine Nitrite Negative (NEGATIVE) Urine Bilirubin Negative (NEGATIVE) Urine Urobilinogen 1 MG/DL (0.0-1.0) H Urine Leukocyte Esterase Negative (NEGATIVE) Troponin I 0.017 ng/mL (0.000-0.056) Height (Feet): 6 Height (Inches): 1.00 Weight (Pounds): 130 Medications Current Medications Medications (Trade) Dose Ordered Sig/Aminata Route PRN Reason Start Time Stop Time Status Last Admin Dose Admin Acetaminophen (Tylenol) 650 mg Q4H PRN ORAL FEVER 09/29/18 00:45 10/29/18 00:44 Albuterol/ Ipratropium (Albuterol/ Ipratropium) 3 ml Q4H PRN HHN Shortness of Breath 09/29/18 00:45 10/04/18 00:44 09/29/18 08:10 Aspirin (ASA) 162 mg DAILY ORAL 09/29/18 09:00 10/29/18 08:59 09/29/18 08:39 Diltiazem HCl (Cardizem) 10 mg Q1H PRN IV heart rate more than 120, 09/29/18 00:45 10/29/18 00:44 Enalaprilat (Vasotec) 2.5 mg Q6H PRN IV sbp more than 160 09/29/18 00:45 10/29/18 00:44 Heparin Sodium (Porcine) (Heparin 5000 units/ml) 5,000 units EVERY 12 HOURS SUBQ 09/29/18 09:00 10/29/18 08:59 Hydromorphone HCl (Dilaudid) 2 mg Q3H PRN IVP severe pain 09/29/18 09:45 10/06/18 09:44 09/29/18 20:18 Levetiracetam (Keppra) 500 mg DAILY ORAL 09/29/18 09:00 10/29/18 08:59 09/29/18 08:39 Mirtazapine (Remeron) 30 mg BEDTIME ORAL 09/29/18 21:00 10/29/18 20:59 Ondansetron HCl (Zofran) 4 mg Q6H PRN IVP Nausea & Vomiting 09/29/18 00:45 10/29/18 00:44 Pantoprazole (Protonix) 40 mg EVERY 12 HOURS ORAL 09/29/18 21:00 10/29/18 20:59 09/29/18 20:16 Polyethylene Glycol (Miralax) 17 gm DAILYPRN PRN ORAL Constipation 09/29/18 00:45 10/29/18 00:44 Sucralfate (Carafate) 1 gm FOUR TIMES A DAY ORAL 09/29/18 13:00 10/29/18 12:59 11/6/18 20:16 Temazepam (Restoril) 15 mg HSPRN PRN ORAL Insomnia 09/29/18 00:45 10/06/18 00:44 Theophylline (Wilfrido-Dur) 100 mg EVERY 12 HOURS ORAL 09/29/18 09:00 10/29/18 08:59 09/29/18 20:16 Assessment/Plan Status: stable Assessment/Plan Assessment (1) ACS (acute coronary syndrome) (2) Costochondritis (3) Cellulitis of right leg (4) ATN (acute tubular necrosis) (5) CAD (coronary artery disease) (6) Severe malnutrition (7) Peripheral arterial disease Plan Serial EKG/Troponin Nitro prn chest pain NO indication for stress test at this time Pain control Ranexa Aspirin Plavix Statin EECP outpatient to improve microvascular ischemia Adonis Winn MD Sep 29, 2018 22:15
[2018-09-30] VITALS: BP 122/70
[2018-09-30 01:12] LABS: BASOPHILS % (AUTO) 1.2 % (0.0-2.0); EOSINOPHILS % (AUTO) 5.6 % (0.0-3.0); HEMATOCRIT 36.9 % (42.0-52.0); HEMOGLOBIN 11.9 G/DL (14.2-18.0); LYMPHOCYTES % (AUTO) 30.3 % (20.0-45.0); MEAN CORPUSCULAR VOLUME 81 FL (80-99); MONOCYTES % (AUTO) 10.1 % (1.0-10.0); NEUTROPHILS % (AUTO) 52.8 % (45.0-75.0); PLATELET COUNT 271 K/UL (150-450); RED BLOOD COUNT 4.56 M/UL (4.70-6.10); RED CELL DISTRIBUTION WIDTH 15.5 % (11.6-14.8); WHITE BLOOD COUNT 6.2 K/UL (4.8-10.8)
[2018-09-30 02:04] LABS: CHOLESTEROL 167 MG/DL (< 200); HDL CHOLESTEROL 42 MG/DL (40-60); TRIGLYCERIDES 55 MG/DL (30-150)
[2018-09-30 04:00] VITALS: BP 126/75
--- NOTE | 2018-09-30 04:30 | History and Physical Report ---
DATE OF ADMISSION: 09/28/2018 CHIEF COMPLAINT: The patient is a 67-year-old -[place] male, presents with chief complaint of chest pain. HISTORY OF PRESENT ILLNESS: The patient himself is uncooperative with the history and physical. The patient states, "why are you here? I thought you weren't my doctor anymore." Much of the history and physical is obtained from the patient's chart. History of present illness began yesterday, 09/28/2018. The patient presented to [facility] emergency room, complaining of chest pain. The patient stated chest pain was 10/10. The patient was admitted for chest pain and rule out acute coronary artery syndrome. REVIEW OF SYSTEMS: Unable to assess secondary to the patient's mental status. PAST MEDICAL HISTORY: Significant for: 1. Coronary artery disease. 2. History of myocardial infarction x2. 3. Hypertension. 4. Chronic obstructive pulmonary disease. 5. Seizure disorder. PAST SURGICAL HISTORY: Significant for: 1. Cardiac catheterization in June of 2018 at [facility]. 2. Coronary artery bypass graft in 2009 and again in 2010. 3. Coronary angioplasty with stent placement x2. CURRENT MEDICATIONS: 1. Albuterol metered-dose inhaler two puffs p.o. q.6 h. p.r.n. 2. Aspirin 325 mg p.o. daily. 3. Atorvastatin 20 mg p.o. nightly. 4. Dilaudid 8 mg p.o. q.6 h. p.r.n. 5. Keppra 500 mg p.o. daily. 6. Metoprolol 50 mg p.o. twice daily. 7. Remeron 15 mg p.o. nightly. 8. Prednisone 20 mg p.o. daily. 9. Theophylline 100 mg p.o. twice daily. ALLERGIES: To: 1. Eggs. 2. Meperidine. 3. Morphine. 4. Nitroglycerine. SOCIAL HISTORY: The patient is , however, lives with his ex-. The patient admits to tobacco use of one-quarter pack per day. The patient denies alcohol use. PHYSICAL EXAMINATION: VITAL SIGNS: Temperature 97.7 degrees, respirations 20, pulse 104, and blood pressure 119/63. GENERAL: The patient is thin-appearing -[place] male, who is irritable. HEENT: Eyes, pupils equal and responsive to light and accommodation. Extraocular movements are intact. NECK: Supple without lymphadenopathy. CHEST: Lungs are clear to auscultation bilaterally without wheezes or rales. CARDIOVASCULAR: Regular rhythm and rate. S1 and S2 are normal without murmurs, rubs, or gallops. ABDOMEN: Soft, nontender, and nondistended with positive bowel sounds. No evidence of hepatosplenomegaly. Currently, no rebound or guarding noted. EXTREMITIES: Negative for clubbing, cyanosis, or edema. RECTAL: Refused. GENITAL: Refused. NEUROLOGIC: Cranial nerves II to XII are grossly intact without focal deficits. Motor strength is 5/5 bilaterally. Deep tendon reflexes are 2+ plantar. LABORATORY STUDIES: WBC 8.4, hemoglobin 14.8, hematocrit 45.4, and platelets 350,000. Sodium 138, potassium 5.0, chloride 104, CO2 27, BUN 17, creatinine 1.5, glucose 93, troponin 0.008. BNP 416. Chest x-ray revealed COPD, otherwise no acute disease. ASSESSMENT: This is a 67-year-old -[place] male with: 1. Chest pain. 2. History of coronary artery disease. 3. Hypertension. 4. Chronic obstructive pulmonary disease. 5. Seizure disorder. TREATMENT: 1. Chest pain/coronary artery disease. A Cardiology consultation has been obtained with Dr. Winn. The patient will have serial troponin levels. Will follow recommendations of Cardiology. 2. Hypertension, stable medication. 3. Seizure disorder. Continue Keppra as above. 4. Chronic obstructive pulmonary disease. A Pulmonary consultation has been obtained with Dr. Jessie Magana. Shantanu Reyna M.D. DR: CLARE JOB#: [id number] CC:
[2018-09-30 08:00] VITALS: BP 139/75
[2018-09-30] MEDS: Albuterol/Ipratropium 3ml neb HHN PRN ×2 (08:07→21:35)
[2018-09-30] MEDS: Theophylline ER 100mg ORAL SCH ×2 (08:28→20:41)
[2018-09-30] MEDS: Aspirin Baby 81mg ORAL SCH (08:29)
[2018-09-30] MEDS: Sucralfate 1gm tab ORAL SCH ×4 (08:29→20:41)
[2018-09-30] MEDS: Heparin 5000 units/ml inj SUBQ SCH ×2 (08:36→20:43)
--- NOTE | 2018-09-30 10:36 | Internal Med Progress Note ---
Subjective Date of Service: Sep 30, 2018 Physician Name Shantanu Reyna Attending Physician Phil Wright MD Current Medications Medications (Trade) Dose Ordered Sig/Aminata Route PRN Reason Start Time Stop Time Status Last Admin Dose Admin Acetaminophen (Tylenol) 650 mg Q4H PRN ORAL FEVER 09/29/18 00:45 10/29/18 00:44 Albuterol/ Ipratropium (Albuterol/ Ipratropium) 3 ml Q4H PRN HHN Shortness of Breath 09/29/18 00:45 10/04/18 00:44 09/30/18 08:07 Aspirin (ASA) 162 mg DAILY ORAL 09/29/18 09:00 10/29/18 08:59 09/30/18 08:29 Diltiazem HCl (Cardizem) 10 mg Q1H PRN IV heart rate more than 120, 09/29/18 00:45 10/29/18 00:44 Enalaprilat (Vasotec) 2.5 mg Q6H PRN IV sbp more than 160 09/29/18 00:45 10/29/18 00:44 Heparin Sodium (Porcine) (Heparin 5000 units/ml) 5,000 units EVERY 12 HOURS SUBQ 09/29/18 09:00 10/29/18 08:59 09/30/18 08:36 Hydromorphone HCl (Dilaudid) 2 mg Q3H PRN IVP severe pain 09/29/18 09:45 10/06/18 09:44 09/30/18 08:22 Levetiracetam (Keppra) 500 mg DAILY ORAL 09/29/18 09:00 10/29/18 08:59 09/30/18 08:29 Mirtazapine (Remeron) 30 mg BEDTIME ORAL 09/29/18 21:00 10/29/18 20:59 09/29/18 22:49 Ondansetron HCl (Zofran) 4 mg Q6H PRN IVP Nausea & Vomiting 09/29/18 00:45 10/29/18 00:44 Pantoprazole (Protonix) 40 mg EVERY 12 HOURS ORAL 09/29/18 21:00 10/29/18 20:59 09/30/18 08:28 Polyethylene Glycol (Miralax) 17 gm DAILYPRN PRN ORAL Constipation 09/29/18 00:45 12/6/18 00:44 Sucralfate (Carafate) 1 gm FOUR TIMES A DAY ORAL 09/29/18 13:00 10/29/18 12:59 09/30/18 08:29 Temazepam (Restoril) 15 mg HSPRN PRN ORAL Insomnia 09/29/18 00:45 10/06/18 00:44 Theophylline (Wilfrido-Dur) 100 mg EVERY 12 HOURS ORAL 09/29/18 09:00 10/29/18 08:59 09/30/18 08:28 Allergies: Coded Allergies: EGG (Verified Allergy, Unknown, 09/28/18) MEPERIDINE (Verified Allergy, Unknown, 09/28/18) MORPHINE (Verified Allergy, Unknown, 09/28/18) NITROGLYCERIN (Verified Allergy, Unknown, hives, 09/28/18) ROS Limited/Unobtainable: No Constitutional: Reports: no symptoms HEENT: Reports: no symptoms Cardiovascular: Reports: chest pain Respiratory: Reports: no symptoms Gastrointestinal/Abdominal: Reports: no symptoms Genitourinary: Reports: no symptoms 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: Reports: no symptoms Subjective 67 YO M admitted with chief complaint of chest pain. "Why are you here? I thought you weren't my doctor anymore." Cover for Int Med-Dr Wright Objective Last Vital Signs Date Time Temp Pulse Resp B/P (MAP) Pulse Ox O2 Delivery O2 Flow Rate FiO2 09/30/18 08:18 97 20 97 Room Air 21 09/30/18 08:00 97.2 139/75 (96) 09/29/18 21:00 2.0 General Appearance: WD/WN, no apparent distress, alert, thin EENT: PERRL/EOMI, normal ENT inspection Neck: non-tender, normal alignment, supple, normal inspection Cardiovascular: normal peripheral pulses, normal rate, regular rhythm, no gallop/murmur, no JVD Respiratory/Chest: chest wall non-tender, lungs clear, normal breath sounds, no respiratory distress, no accessory muscle use Abdomen: normal bowel sounds, non tender, soft, no organomegaly, no mass, abnormal bowel sounds Extremities: normal range of motion, non-tender 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, no motor/sensory deficits Skin: normal pigmentation, warm/dry Laboratory Tests Test 09/30/18 00:50 White Blood Count 6.2 K/UL (4.8-10.8) Red Blood Count 4.56 M/UL (4.70-6.10) L Hemoglobin 11.9 G/DL (14.2-18.0) L Hematocrit 36.9 % (42.0-52.0) L Mean Corpuscular Volume 81 FL (80-99) Mean Corpuscular Hemoglobin 26.1 PG (27.0-31.0) L Mean Corpuscular Hemoglobin Concent 32.2 G/DL (32.0-36.0) Red Cell Distribution Width 15.5 % (11.6-14.8) H Platelet Count 271 K/UL (150-450) Mean Platelet Volume 6.1 FL (6.5-10.1) L Neutrophils (%) (Auto) 52.8 % (45.0-75.0) Lymphocytes (%) (Auto) 30.3 % (20.0-45.0) Monocytes (%) (Auto) 10.1 % (1.0-10.0) H Eosinophils (%) (Auto) 5.6 % (0.0-3.0) H Basophils (%) (Auto) 1.2 % (0.0-2.0) Troponin I 0.006 ng/mL (0.000-0.056) C-Reactive Protein, Quantitative 4.0 mg/dL (0.00-0.90) H Triglycerides Level 55 MG/DL (30-150) Cholesterol Level 167 MG/DL (< 200) LDL Cholesterol 116 mg/dL (<100) H HDL Cholesterol 42 MG/DL (40-60) Cholesterol/HDL Ratio 4.0 (3.3-4.4) Thyroid Stimulating Hormone (TSH) 2.203 uiU/mL (0.358-3.740) Intake and Output 09/29/18 09/30/18 19:00 07:00 Intake Total 420 ml 600 ml Output Total 350 ml 500 ml Balance 70 ml 100 ml Intake Oral 420 ml 600 ml Output Urine Total 350 ml 500 ml # Bowel Movements 1 Assessment/Plan Problem List: (1) Chest pain (2) Seizure disorder Assessment & Plan: Continue Keppra (3) CAD (coronary artery disease) Assessment & Plan: Continue aspirin. Not on plavix currently. See cardiology note. (4) COPD exacerbation Assessment & Plan: see pulmonary note. (5) HTN (hypertension) Assessment & Plan: Continue cardizem and vasotec (6) Irritable behavior (7) Opiate dependence, continuous Status: not improved Shantanu Reyna MD Sep 30, 2018 10:36
--- NOTE | 2018-09-30 11:58 | General Progress Note ---
Assessment/Plan Status: stable Assessment/Plan Major depressive disorder, opiate pain medication dependence. cluster B personality d/o -Remeron 30mg po qhs -provided ro/st Subjective Date patient seen: Sep 30, 2018 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: Reports: anxiety, depressed, emotional problems Allergies: Coded Allergies: EGG (Verified Allergy, Unknown, 09/28/18) MEPERIDINE (Verified Allergy, Unknown, 09/28/18) MORPHINE (Verified Allergy, Unknown, 09/28/18) NITROGLYCERIN (Verified Allergy, Unknown, hives, 09/28/18) Objective Last 24 Hour Vital Signs Date Time Temp Pulse Resp B/P (MAP) Pulse Ox O2 Delivery O2 Flow Rate FiO2 09/30/18 11:30 133 09/30/18 09:00 Nasal Cannula 2.0 09/30/18 08:18 97 20 97 Room Air 21 09/30/18 08:08 94 22 95 Room Air 21 09/30/18 08:07 Room Air 21 09/30/18 08:07 94 Room Air 21 09/30/18 08:07 96 18 Room Air 21 09/30/18 08:00 89 09/30/18 08:00 97.2 93 18 139/75 (96) 98 09/30/18 04:00 98.2 85 17 126/75 (92) 98 09/30/18 04:00 101 09/30/18 00:00 106 09/30/18 00:00 98.9 104 20 122/70 (87) 93 09/29/18 22:42 98 18 98 Room Air 21 09/29/18 22:31 90 18 98 Room Air 21 09/29/18 21:35 95 Room Air 21 09/29/18 21:35 Room Air 21 09/29/18 21:00 Nasal Cannula 2.0 09/29/18 20:00 105 09/29/18 20:00 98.1 95 18 125/77 (93) 95 09/29/18 16:22 98.1 09/29/18 16:00 98 09/29/18 16:00 98.1 96 20 112/68 (83) 95 09/29/18 12:00 107 09/29/18 12:00 97.9 110 21 114/73 (87) 96 Intake and Output 09/29/18 09/30/18 19:00 07:00 Intake Total 420 ml 600 ml Output Total 350 ml 500 ml Balance 70 ml 100 ml Intake Oral 420 ml 600 ml Output Urine Total 350 ml 500 ml # Bowel Movements 1 Laboratory Tests 09/30/18 00:50: White Blood Count 6.2, Red Blood Count 4.56L, Hemoglobin 11.9L, Hematocrit 36.9L , Mean Corpuscular Volume 81, Mean Corpuscular Hemoglobin 26.1L, Mean Corpuscular Hemoglobin Concent 32.2, Red Cell Distribution Width 15.5H, Platelet Count 271, Mean Platelet Volume 6.1L, Neutrophils (%) (Auto) 52.8, Lymphocytes (%) (Auto) 30.3, Monocytes (%) (Auto) 10.1H, Eosinophils (%) (Auto) 5.6H, Basophils (%) (Auto) 1.2, Troponin I 0.006, C-Reactive Protein, Quantitative 4.0H, Triglycerides Level 55, Cholesterol Level 167, LDL Cholesterol 116H, HDL Cholesterol 42, Cholesterol/HDL Ratio 4.0, Thyroid Stimulating Hormone (TSH) 2.203 Height (Feet): 6 Height (Inches): 1.00 Weight (Pounds): 132 General Appearance: no apparent distress, alert Neurologic: oriented x 3, responsive, depressed affect Rachael Buckley MD Sep 30, 2018 11:58
[2018-09-30 12:00] VITALS: BP 129/66
--- NOTE | 2018-09-30 12:27 | Pulmonology Progress Note ---
Assessment/Plan Problems: (1) ACS (acute coronary syndrome) (2) Costochondritis (3) Cellulitis of right leg (4) ATN (acute tubular necrosis) (5) CAD (coronary artery disease) (6) Severe malnutrition (7) Peripheral arterial disease Assessment/Plan all noted respiratory treatment f/u electrolytes symptomatic treatment f/u psych recommendations Subjective ROS Limited/Unobtainable: No Constitutional: Reports: no symptoms HEENT: Repors: no symptoms Respiratory: Reports: no symptoms Allergies: Coded Allergies: EGG (Verified Allergy, Unknown, 09/28/18) MEPERIDINE (Verified Allergy, Unknown, 09/28/18) MORPHINE (Verified Allergy, Unknown, 09/28/18) NITROGLYCERIN (Verified Allergy, Unknown, hives, 09/28/18) Objective Last 24 Hour Vital Signs Date Time Temp Pulse Resp B/P (MAP) Pulse Ox O2 Delivery O2 Flow Rate FiO2 09/30/18 11:30 133 09/30/18 09:00 Nasal Cannula 2.0 09/30/18 08:18 97 20 97 Room Air 21 09/30/18 08:08 94 22 95 Room Air 21 09/30/18 08:07 Room Air 21 09/30/18 08:07 94 Room Air 21 09/30/18 08:07 96 18 Room Air 21 09/30/18 08:00 89 09/30/18 08:00 97.2 93 18 139/75 (96) 98 09/30/18 04:00 98.2 85 17 126/75 (92) 98 09/30/18 04:00 101 09/30/18 00:00 106 09/30/18 00:00 98.9 104 20 122/70 (87) 93 09/29/18 22:42 98 18 98 Room Air 21 09/29/18 22:31 90 18 98 Room Air 21 09/29/18 21:35 95 Room Air 21 09/29/18 21:35 Room Air 21 09/29/18 21:00 Nasal Cannula 2.0 09/29/18 20:00 105 09/29/18 20:00 98.1 95 18 125/77 (93) 95 09/29/18 16:22 98.1 09/29/18 16:00 98 09/29/18 16:00 98.1 96 20 112/68 (83) 95 Intake and Output 09/29/18 09/30/18 19:00 07:00 Intake Total 420 ml 600 ml Output Total 350 ml 500 ml Balance 70 ml 100 ml Intake Oral 420 ml 600 ml Output Urine Total 350 ml 500 ml # Bowel Movements 1 General Appearance: WD/WN HEENT: normocephalic Respiratory/Chest: chest wall non-tender, lungs clear, crackles/rales Cardiovascular: normal peripheral pulses, normal rate Abdomen: normal bowel sounds, soft, non tender Genitourinary: normal external genitalia Extremities: no cyanosis 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 Lymphatic: no neck adenopathy Musculoskeletal: normal muscle bulk Laboratory Tests 09/30/18 00:50: White Blood Count 6.2, Red Blood Count 4.56L, Hemoglobin 11.9L, Hematocrit 36.9L , Mean Corpuscular Volume 81, Mean Corpuscular Hemoglobin 26.1L, Mean Corpuscular Hemoglobin Concent 32.2, Red Cell Distribution Width 15.5H, Platelet Count 271, Mean Platelet Volume 6.1L, Neutrophils (%) (Auto) 52.8, Lymphocytes (%) (Auto) 30.3, Monocytes (%) (Auto) 10.1H, Eosinophils (%) (Auto) 5.6H, Basophils (%) (Auto) 1.2, Troponin I 0.006, C-Reactive Protein, Quantitative 4.0H, Triglycerides Level 55, Cholesterol Level 167, LDL Cholesterol 116H, HDL Cholesterol 42, Cholesterol/HDL Ratio 4.0, Thyroid Stimulating Hormone (TSH) 2.203 Current Medications Medications (Trade) Dose Ordered Sig/Aminata Route PRN Reason Start Time Stop Time Status Last Admin Dose Admin Acetaminophen (Tylenol) 650 mg Q4H PRN ORAL FEVER 09/29/18 00:45 10/29/18 00:44 Albuterol/ Ipratropium (Albuterol/ Ipratropium) 3 ml Q4H PRN HHN Shortness of Breath 09/29/18 00:45 10/04/18 00:44 09/30/18 08:07 Aspirin (ASA) 162 mg DAILY ORAL 09/29/18 09:00 10/29/18 08:59 09/30/18 08:29 Diltiazem HCl (Cardizem) 10 mg Q1H PRN IV heart rate more than 120, 09/29/18 00:45 10/29/18 00:44 09/30/18 11:30 Enalaprilat (Vasotec) 2.5 mg Q6H PRN IV sbp more than 160 09/29/18 00:45 10/29/18 00:44 Heparin Sodium (Porcine) (Heparin 5000 units/ml) 5,000 units EVERY 12 HOURS SUBQ 09/29/18 09:00 10/29/18 08:59 09/30/18 08:36 Hydromorphone HCl (Dilaudid) 2 mg Q3H PRN IVP severe pain 09/29/18 09:45 10/06/18 09:44 09/30/18 11:31 Levetiracetam (Keppra) 500 mg DAILY ORAL 09/29/18 09:00 10/29/18 08:59 09/30/18 08:29 Mirtazapine (Remeron) 30 mg BEDTIME ORAL 09/29/18 21:00 10/29/18 20:59 09/29/18 22:49 Ondansetron HCl (Zofran) 4 mg Q6H PRN IVP Nausea & Vomiting 09/29/18 00:45 10/29/18 00:44 Pantoprazole (Protonix) 40 mg EVERY 12 HOURS ORAL 09/29/18 21:00 10/29/18 20:59 09/30/18 08:28 Polyethylene Glycol (Miralax) 17 gm DAILYPRN PRN ORAL Constipation 09/29/18 00:45 10/29/18 00:44 Sucralfate (Carafate) 1 gm FOUR TIMES A DAY ORAL 09/29/18 13:00 10/29/18 12:59 09/30/18 08:29 Temazepam (Restoril) 15 mg HSPRN PRN ORAL Insomnia 09/29/18 00:45 10/06/18 00:44 Theophylline (Wiflrido-Dur) 100 mg EVERY 12 HOURS ORAL 09/29/18 09:00 10/29/18 08:59 09/30/18 08:28 Jessie Magana MD Sep 30, 2018 12:27
--- NOTE | 2018-09-30 14:41 | Cardiology Progress Note ---
Assessment/Plan Status: stable, progressing Assessment/Plan Assessment/Plan Status: stable Assessment/Plan Assessment (1) ACS (acute coronary syndrome) (2) Costochondritis (3) Cellulitis of right leg (4) ATN (acute tubular necrosis) (5) CAD (coronary artery disease) (6) Severe malnutrition (7) Peripheral arterial disease Plan Serial EKG/Troponin Nitro prn chest pain NO indication for stress test at this time Pain control Ranexa Aspirin Plavix Statin EECP outpatient to improve microvascular ischemia Podiatry consult for LE wound Subjective Cardiovascular: Reports: no symptoms Respiratory: Reports: no symptoms Gastrointestinal/Abdominal: Reports: no symptoms Genitourinary: Reports: no symptoms Subjective No acute events, vitals stable, troponin negative. Pt presents with full thickness wound superior but in close proximity to lateral R malleolus (L)4.5cm x (W)2.5cm Objective Last 24 Hour Vital Signs Date Time Temp Pulse Resp B/P (MAP) Pulse Ox O2 Delivery O2 Flow Rate FiO2 09/30/18 12:00 110 09/30/18 12:00 97.3 91 18 129/66 (87) 98 09/30/18 11:30 133 09/30/18 09:00 Nasal Cannula 2.0 09/30/18 08:18 97 20 97 Room Air 21 09/30/18 08:08 94 22 95 Room Air 21 09/30/18 08:07 Room Air 21 09/30/18 08:07 94 Room Air 21 09/30/18 08:07 96 18 Room Air 21 09/30/18 08:00 89 09/30/18 08:00 97.2 93 18 139/75 (96) 98 09/30/18 04:00 98.2 85 17 126/75 (92) 98 09/30/18 04:00 101 09/30/18 00:00 106 09/30/18 00:00 98.9 104 20 122/70 (87) 93 09/29/18 22:42 98 18 98 Room Air 21 09/29/18 22:31 90 18 98 Room Air 21 09/29/18 21:35 95 Room Air 21 09/29/18 21:35 Room Air 21 09/29/18 21:00 Nasal Cannula 2.0 09/29/18 20:00 105 09/29/18 20:00 98.1 95 18 125/77 (93) 95 09/29/18 16:22 98.1 09/29/18 16:00 98 09/29/18 16:00 98.1 96 20 112/68 (83) 95 General Appearance: no apparent distress, alert EENT: PERRL/EOMI, normal ENT inspection, TMs normal Neck: non-tender, normal alignment Rhythm: NSR Cardiovascular: normal peripheral pulses Respiratory/Chest: chest wall non-tender, lungs clear Abdomen: normal bowel sounds, non tender Extremities: normal range of motion, non-tender, normal inspection 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 normal, no motor/sensory deficits Intake and Output 09/29/18 09/30/18 19:00 07:00 Intake Total 420 ml 600 ml Output Total 350 ml 500 ml Balance 70 ml 100 ml Intake Oral 420 ml 600 ml Output Urine Total 350 ml 500 ml # Bowel Movements 1 Laboratory Tests Test 09/30/18 00:50 White Blood Count 6.2 K/UL (4.8-10.8) Red Blood Count 4.56 M/UL (4.70-6.10) L Hemoglobin 11.9 G/DL (14.2-18.0) L Hematocrit 36.9 % (42.0-52.0) L Mean Corpuscular Volume 81 FL (80-99) Mean Corpuscular Hemoglobin 26.1 PG (27.0-31.0) L Mean Corpuscular Hemoglobin Concent 32.2 G/DL (32.0-36.0) Red Cell Distribution Width 15.5 % (11.6-14.8) H Platelet Count 271 K/UL (150-450) Mean Platelet Volume 6.1 FL (6.5-10.1) L Neutrophils (%) (Auto) 52.8 % (45.0-75.0) Lymphocytes (%) (Auto) 30.3 % (20.0-45.0) Monocytes (%) (Auto) 10.1 % (1.0-10.0) H Eosinophils (%) (Auto) 5.6 % (0.0-3.0) H Basophils (%) (Auto) 1.2 % (0.0-2.0) Troponin I 0.006 ng/mL (0.000-0.056) C-Reactive Protein, Quantitative 4.0 mg/dL (0.00-0.90) H Triglycerides Level 55 MG/DL (30-150) Cholesterol Level 167 MG/DL (< 200) LDL Cholesterol 116 mg/dL (<100) H HDL Cholesterol 42 MG/DL (40-60) Cholesterol/HDL Ratio 4.0 (3.3-4.4) Thyroid Stimulating Hormone (TSH) 2.203 uiU/mL (0.358-3.740) Adonis Winn MD Sep 30, 2018 14:41
--- NOTE | 2018-09-30 15:41 | Infectious Diseases Prog Note ---
Assessment/Plan Assessment/Plan ASSESSMENT: The patient is a 67-year-old male with, Chronic obstructive pulmonary disease exacerbation. CXR: chronic obstructive pulmonary disease Afebrile. Normal white blood cells. History of chronic obstructive pulmonary disease History of right lower extremity osteomyelitis HTN Malnutrition History of alcohol abuse Seizure disorder Diabetes Coronary artery disease/coronary artery bypass graft PLAN: Doxycycline orally day # 1 / Monitor CBC. Monitor BMP. Monitor chest x-ray. Subjective Constitutional: Denies: no symptoms, fever, chills, fatigue, anorexia, drenching sweats, other Allergies: Coded Allergies: EGG (Verified Allergy, Unknown, 09/28/18) MEPERIDINE (Verified Allergy, Unknown, 09/28/18) MORPHINE (Verified Allergy, Unknown, 09/28/18) NITROGLYCERIN (Verified Allergy, Unknown, hives, 09/28/18) Objective Vital Signs Last 24 Hour Vital Signs Date Time Temp Pulse Resp B/P (MAP) Pulse Ox O2 Delivery O2 Flow Rate FiO2 09/30/18 12:00 110 09/30/18 12:00 97.3 91 18 129/66 (87) 98 09/30/18 11:30 133 09/30/18 09:00 Nasal Cannula 2.0 09/30/18 08:18 97 20 97 Room Air 21 09/30/18 08:08 94 22 95 Room Air 21 09/30/18 08:07 Room Air 21 09/30/18 08:07 94 Room Air 21 09/30/18 08:07 96 18 Room Air 21 09/30/18 08:00 89 09/30/18 08:00 97.2 93 18 139/75 (96) 98 09/30/18 04:00 98.2 85 17 126/75 (92) 98 09/30/18 04:00 101 09/30/18 00:00 106 09/30/18 00:00 98.9 104 20 122/70 (87) 93 09/29/18 22:42 98 18 98 Room Air 21 09/29/18 22:31 90 18 98 Room Air 21 09/29/18 21:35 95 Room Air 21 09/29/18 21:35 Room Air 21 09/29/18 21:00 Nasal Cannula 2.0 09/29/18 20:00 105 09/29/18 20:00 98.1 95 18 125/77 (93) 95 09/29/18 16:22 98.1 09/29/18 16:00 98 09/29/18 16:00 98.1 96 20 112/68 (83) 95 Height (Feet): 6 Height (Inches): 1.00 Weight (Pounds): 132 HEENT: anicteric Respiratory/Chest: no accessory muscle use Cardiovascular: regularly irregular Abdomen: no organomegaly Laboratory Tests Test 09/30/18 00:50 White Blood Count 6.2 K/UL (4.8-10.8) Red Blood Count 4.56 M/UL (4.70-6.10) L Hemoglobin 11.9 G/DL (14.2-18.0) L Hematocrit 36.9 % (42.0-52.0) L Mean Corpuscular Volume 81 FL (80-99) Mean Corpuscular Hemoglobin 26.1 PG (27.0-31.0) L Mean Corpuscular Hemoglobin Concent 32.2 G/DL (32.0-36.0) Red Cell Distribution Width 15.5 % (11.6-14.8) H Platelet Count 271 K/UL (150-450) Mean Platelet Volume 6.1 FL (6.5-10.1) L Neutrophils (%) (Auto) 52.8 % (45.0-75.0) Lymphocytes (%) (Auto) 30.3 % (20.0-45.0) Monocytes (%) (Auto) 10.1 % (1.0-10.0) H Eosinophils (%) (Auto) 5.6 % (0.0-3.0) H Basophils (%) (Auto) 1.2 % (0.0-2.0) Troponin I 0.006 ng/mL (0.000-0.056) C-Reactive Protein, Quantitative 4.0 mg/dL (0.00-0.90) H Triglycerides Level 55 MG/DL (30-150) Cholesterol Level 167 MG/DL (< 200) LDL Cholesterol 116 mg/dL (<100) H HDL Cholesterol 42 MG/DL (40-60) Cholesterol/HDL Ratio 4.0 (3.3-4.4) Thyroid Stimulating Hormone (TSH) 2.203 uiU/mL (0.358-3.740) Current Medications Medications (Trade) Dose Ordered Sig/Aminata Route PRN Reason Start Time Stop Time Status Last Admin Dose Admin Acetaminophen (Tylenol) 650 mg Q4H PRN ORAL FEVER 09/29/18 00:45 10/29/18 00:44 Albuterol/ Ipratropium (Albuterol/ Ipratropium) 3 ml Q4H PRN HHN Shortness of Breath 09/29/18 00:45 10/04/18 00:44 09/30/18 08:07 Aspirin (ASA) 162 mg DAILY ORAL 09/29/18 09:00 10/29/18 08:59 09/30/18 08:29 Diltiazem HCl (Cardizem) 10 mg Q1H PRN IV heart rate more than 120, 09/29/18 00:45 10/29/18 00:44 09/30/18 11:30 Enalaprilat (Vasotec) 2.5 mg Q6H PRN IV sbp more than 160 09/29/18 00:45 10/29/18 00:44 Heparin Sodium (Porcine) (Heparin 5000 units/ml) 5,000 units EVERY 12 HOURS SUBQ 09/29/18 09:00 10/29/18 08:59 09/30/18 08:36 Hydromorphone HCl (Dilaudid) 2 mg Q3H PRN IVP severe pain 09/29/18 09:45 10/06/18 09:44 09/30/18 15:09 Levetiracetam (Keppra) 500 mg DAILY ORAL 09/29/18 09:00 10/29/18 08:59 09/30/18 08:29 Mirtazapine (Remeron) 30 mg BEDTIME ORAL 09/29/18 21:00 10/29/18 20:59 09/29/18 22:49 Ondansetron HCl (Zofran) 4 mg Q6H PRN IVP Nausea & Vomiting 09/29/18 00:45 10/29/18 00:44 Pantoprazole (Protonix) 40 mg EVERY 12 HOURS ORAL 09/29/18 21:00 10/29/18 20:59 09/30/18 08:28 Polyethylene Glycol (Miralax) 17 gm DAILYPRN PRN ORAL Constipation 09/29/18 00:45 10/29/18 00:44 Sucralfate (Carafate) 1 gm FOUR TIMES A DAY ORAL 09/29/18 13:00 10/29/18 12:59 09/30/18 13:05 Temazepam (Restoril) 15 mg HSPRN PRN ORAL Insomnia 09/29/18 00:45 10/06/18 00:44 Theophylline (Wilfrido-Dur) 100 mg EVERY 12 HOURS ORAL 09/29/18 09:00 10/29/18 08:59 09/30/18 08:28 Reuben Reich MD Sep 30, 2018 15:41
[2018-09-30 16:00] VITALS: BP 132/63
[2018-09-30 20:00] VITALS: BP 122/74
[2018-09-30] MEDS ORDERED: Enalaprilat 2.5mg/2ml Inj IV PRN (21:45)
[2018-09-30] MEDS ORDERED: Miralax 17gm pkt ORAL PRN (21:45)
[2018-09-30] MEDS ORDERED: dilTIAZem HCl 25mg/5ml Inj IV PRN (21:45)
[2018-10-01] VITALS: BP 136/73
[2018-10-01 04:00] VITALS: BP 152/80
[2018-10-01 06:32] LABS: BASOPHILS % (AUTO) 1.6 % (0.0-2.0); EOSINOPHILS % (AUTO) 7.7 % (0.0-3.0); LYMPHOCYTES % (AUTO) 35.5 % (20.0-45.0); MEAN CORPUSCULAR VOLUME 82 FL (80-99); MONOCYTES % (AUTO) 9.4 % (1.0-10.0); PLATELET COUNT 286 K/UL (150-450); RED BLOOD COUNT 4.99 M/UL (4.70-6.10); RED CELL DISTRIBUTION WIDTH 15.8 % (11.6-14.8); WHITE BLOOD COUNT 5.8 K/UL (4.8-10.8)
[2018-10-01 06:56] LABS: ALANINE AMINOTRANSFERASE 19 U/L (12-78); ALBUMIN 2.8 G/DL (3.4-5.0); ALBUMIN/GLOBULIN RATIO 0.7 (1.0-2.7); ALKALINE PHOSPHATASE 131 U/L (46-116); ANION GAP 8 mmol/L (5-15); ASPARTATE AMINO TRANSFERASE 20 U/L (15-37); BILIRUBIN,TOTAL 0.3 MG/DL (0.2-1.0); BLOOD UREA NITROGEN 12 mg/dL (7-18); CALCIUM 8.6 MG/DL (8.5-10.1); CARBON DIOXIDE 29 MMOL/L (21-32); CHLORIDE 102 MMOL/L (98-107); CREATININE 1.5 MG/DL (0.55-1.30); POTASSIUM 5.4 MMOL/L (3.5-5.1); SODIUM 138 MMOL/L (136-145)
[2018-10-01 06:58] LABS: PHOSPHORUS 3.8 MG/DL (2.5-4.9)
[2018-10-01 08:00] VITALS: BP 146/73
[2018-10-01] MEDS: Sucralfate 1gm tab ORAL SCH ×4 (08:51→21:45)
[2018-10-01] MEDS: Aspirin Baby 81mg ORAL SCH (08:51)
[2018-10-01] MEDS: Theophylline ER 100mg ORAL SCH ×2 (08:52→21:33)
[2018-10-01] MEDS: Heparin 5000 units/ml inj SUBQ SCH ×2 (08:53→21:38)
[2018-10-01 11:41] VITALS: BP 159/80
--- NOTE | 2018-10-01 11:54 | Pulmonology Progress Note ---
Assessment/Plan Problems: (1) ACS (acute coronary syndrome) (2) Costochondritis (3) Cellulitis of right leg (4) ATN (acute tubular necrosis) (5) CAD (coronary artery disease) (6) Severe malnutrition (7) Peripheral arterial disease Assessment/Plan feeling better no new complains respiratory treatment f/u electrolytes symptomatic treatment f/u psych recommendations Subjective ROS Limited/Unobtainable: No Constitutional: Reports: no symptoms HEENT: Repors: no symptoms Allergies: Coded Allergies: EGG (Verified Allergy, Unknown, 09/28/18) MEPERIDINE (Verified Allergy, Unknown, 09/28/18) MORPHINE (Verified Allergy, Unknown, 09/28/18) NITROGLYCERIN (Verified Allergy, Unknown, hives, 09/28/18) Objective Last 24 Hour Vital Signs Date Time Temp Pulse Resp B/P (MAP) Pulse Ox O2 Delivery O2 Flow Rate FiO2 10/01/18 11:41 98.1 103 18 159/80 (106) 93 10/01/18 10:53 98.1 10/01/18 09:00 Room Air 10/01/18 08:00 98.8 101 17 146/73 (97) 93 10/01/18 04:00 98.3 101 18 152/80 (104) 93 10/01/18 00:00 99.3 101 18 136/73 (94) 93 09/30/18 22:00 Room Air 09/30/18 21:47 103 20 99 Room Air 21 09/30/18 21:37 102 18 96 Room Air 21 09/30/18 20:33 95 Room Air 21 09/30/18 20:33 Room Air 21 09/30/18 20:33 94 18 Room Air 21 09/30/18 20:00 98.6 101 18 122/74 (90) 95 09/30/18 16:00 97.3 94 20 132/63 (86) 95 09/30/18 12:00 110 09/30/18 12:00 97.3 91 18 129/66 (87) 98 Intake and Output 09/30/18 10/01/18 19:00 07:00 Intake Total 920 ml 360 ml Output Total 700 ml 380 ml Balance 220 ml -20 ml Intake Oral 920 ml 360 ml Output Urine Total 700 ml 380 ml General Appearance: WD/WN HEENT: normocephalic, anicteric Respiratory/Chest: chest wall non-tender, lungs clear Cardiovascular: normal peripheral pulses, normal rate Abdomen: normal bowel sounds, soft, non tender Extremities: no cyanosis Skin: no rash, no lesions Laboratory Tests 10/01/18 06:00: White Blood Count 5.8, Red Blood Count 4.99, Hemoglobin 13.0L, Hematocrit 41.0L , Mean Corpuscular Volume 82, Mean Corpuscular Hemoglobin 26.0L, Mean Corpuscular Hemoglobin Concent 31.7L, Red Cell Distribution Width 15.8H, Platelet Count 286, Mean Platelet Volume 6.1L, Neutrophils (%) (Auto) 46.0, Lymphocytes (%) (Auto) 35.5, Monocytes (%) (Auto) 9.4, Eosinophils (%) (Auto) 7.7H, Basophils (%) (Auto) 1.6, Prothrombin Time 10.4, Prothromb Time International Ratio 1.0, Activated Partial Thromboplast Time 30, Sodium Level 138, Potassium Level 5.4H, Chloride Level 102, Carbon Dioxide Level 29, Anion Gap 8, Blood Urea Nitrogen 12, Creatinine 1.5H, Estimat Glomerular Filtration Rate 56.4, Glucose Level 82, Calcium Level 8.6, Phosphorus Level 3.8, Magnesium Level 1.8, Total Bilirubin 0.3, Aspartate Amino Transf (AST/SGOT) 20, Alanine Aminotransferase (ALT/SGPT) 19, Alkaline Phosphatase 131H, Troponin I 0.001, Pro -B-Type Natriuretic Peptide 883H, Total Protein 6.8, Albumin 2.8L, Globulin 4.0 , Albumin/Globulin Ratio 0.7L Current Medications Medications (Trade) Dose Ordered Sig/Aminata Route PRN Reason Start Time Stop Time Status Last Admin Dose Admin Acetaminophen (Tylenol) 650 mg Q4H PRN ORAL FEVER (temp >100.5 F) 09/30/18 21:45 10/30/18 21:44 Albuterol/ Ipratropium (Albuterol/ Ipratropium) 3 ml Q4H PRN HHN Shortness of Breath 09/30/18 21:30 10/05/18 21:29 09/30/18 21:35 Aspirin (ASA) 162 mg DAILY ORAL 10/01/18 09:00 10/29/18 08:59 10/01/18 08:51 Doxycycline Monohydrate (Vibramycin) 100 mg EVERY 12 HOURS ORAL 10/01/18 09:00 10/07/18 20:59 10/01/18 08:52 Enalaprilat (Vasotec) 2.5 mg Q6H PRN IV sbp more than 160 09/30/18 21:45 10/30/18 21:44 Heparin Sodium (Porcine) (Heparin 5000 units/ml) 5,000 units EVERY 12 HOURS SUBQ 10/01/18 09:00 10/29/18 08:59 Hydromorphone HCl (Dilaudid) 2 mg Q3H PRN IVP Severe Pain (Pain Scale 7-10) 09/30/18 21:33 10/06/18 21:32 10/01/18 10:23 Levetiracetam (Keppra) 500 mg DAILY ORAL 10/01/18 09:00 10/29/18 08:59 10/01/18 08:52 Mirtazapine (Remeron) 30 mg BEDTIME ORAL 10/01/18 21:00 10/29/18 20:59 Ondansetron HCl (Zofran) 4 mg Q6H PRN IVP Nausea & Vomiting 09/30/18 21:45 10/30/18 21:44 10/01/18 10:21 Pantoprazole (Protonix) 40 mg EVERY 12 HOURS ORAL 10/01/18 09:00 10/29/18 20:59 10/01/18 08:52 Polyethylene Glycol (Miralax) 17 gm DAILYPRN PRN ORAL Constipation 09/30/18 21:45 10/30/18 21:44 Sucralfate (Carafate) 1 gm FOUR TIMES A DAY ORAL 10/01/18 09:00 10/29/18 12:59 10/01/18 08:51 Temazepam (Restoril) 15 mg HSPRN PRN ORAL Insomnia 09/30/18 21:45 10/07/18 21:44 Theophylline (Wilfrido-Dur) 100 mg EVERY 12 HOURS ORAL 10/01/18 09:00 10/29/18 08:59 10/01/18 08:52 Jessie Magana MD Oct 01, 2018 11:54
--- NOTE | 2018-10-01 12:58 | Infectious Diseases Prog Note ---
Assessment/Plan Assessment/Plan ASSESSMENT: The patient is a 67-year-old male with, Chronic obstructive pulmonary disease exacerbation CXR: chronic obstructive pulmonary disease Afebrile Normal white blood cells History of chronic obstructive pulmonary disease History of right lower extremity osteomyelitis HTN Malnutrition History of alcohol abuse Seizure disorder Diabetes Coronary artery disease/coronary artery bypass graft PLAN: Doxycycline orally day # 2 /5 Monitor CBC. Monitor BMP. Monitor chest x-ray. Subjective Constitutional: Denies: no symptoms, fever, chills, fatigue, anorexia, drenching sweats, other Allergies: Coded Allergies: EGG (Verified Allergy, Unknown, 09/28/18) MEPERIDINE (Verified Allergy, Unknown, 09/28/18) MORPHINE (Verified Allergy, Unknown, 09/28/18) NITROGLYCERIN (Verified Allergy, Unknown, hives, 09/28/18) Objective Vital Signs Last 24 Hour Vital Signs Date Time Temp Pulse Resp B/P (MAP) Pulse Ox O2 Delivery O2 Flow Rate FiO2 10/01/18 11:41 98.1 103 18 159/80 (106) 93 10/01/18 10:53 98.1 10/01/18 09:00 Room Air 10/01/18 08:00 98.8 101 17 146/73 (97) 93 10/01/18 04:00 98.3 101 18 152/80 (104) 93 10/01/18 00:00 99.3 101 18 136/73 (94) 93 09/30/18 22:00 Room Air 09/30/18 21:47 103 20 99 Room Air 21 09/30/18 21:37 102 18 96 Room Air 21 09/30/18 20:33 95 Room Air 21 09/30/18 20:33 Room Air 21 09/30/18 20:33 94 18 Room Air 21 09/30/18 20:00 98.6 101 18 122/74 (90) 95 09/30/18 16:00 97.3 94 20 132/63 (86) 95 Height (Feet): 6 Height (Inches): 1.00 Weight (Pounds): 132 Respiratory/Chest: no respiratory distress Cardiovascular: regular rhythm Abdomen: non distended Laboratory Tests Test 10/01/18 06:00 White Blood Count 5.8 K/UL (4.8-10.8) Red Blood Count 4.99 M/UL (4.70-6.10) Hemoglobin 13.0 G/DL (14.2-18.0) L Hematocrit 41.0 % (42.0-52.0) L Mean Corpuscular Volume 82 FL (80-99) Mean Corpuscular Hemoglobin 26.0 PG (27.0-31.0) L Mean Corpuscular Hemoglobin Concent 31.7 G/DL (32.0-36.0) L Red Cell Distribution Width 15.8 % (11.6-14.8) H Platelet Count 286 K/UL (150-450) Mean Platelet Volume 6.1 FL (6.5-10.1) L Neutrophils (%) (Auto) 46.0 % (45.0-75.0) Lymphocytes (%) (Auto) 35.5 % (20.0-45.0) Monocytes (%) (Auto) 9.4 % (1.0-10.0) Eosinophils (%) (Auto) 7.7 % (0.0-3.0) H Basophils (%) (Auto) 1.6 % (0.0-2.0) Prothrombin Time 10.4 SEC (9.30-11.50) Prothromb Time International Ratio 1.0 (0.9-1.1) Activated Partial Thromboplast Time 30 SEC (23-33) Sodium Level 138 MMOL/L (136-145) Potassium Level 5.4 MMOL/L (3.5-5.1) H Chloride Level 102 MMOL/L (98-107) Carbon Dioxide Level 29 MMOL/L (21-32) Anion Gap 8 mmol/L (5-15) Blood Urea Nitrogen 12 mg/dL (7-18) Creatinine 1.5 MG/DL (0.55-1.30) H Estimat Glomerular Filtration Rate 56.4 mL/min (>60) Glucose Level 82 MG/DL (74-106) Calcium Level 8.6 MG/DL (8.5-10.1) Phosphorus Level 3.8 MG/DL (2.5-4.9) Magnesium Level 1.8 MG/DL (1.8-2.4) Total Bilirubin 0.3 MG/DL (0.2-1.0) Aspartate Amino Transf (AST/SGOT) 20 U/L (15-37) Alanine Aminotransferase (ALT/SGPT) 19 U/L (12-78) Alkaline Phosphatase 131 U/L (46-116) H Troponin I 0.001 ng/mL (0.000-0.056) Pro-B-Type Natriuretic Peptide 883 pg/mL (0-125) H Total Protein 6.8 G/DL (6.4-8.2) Albumin 2.8 G/DL (3.4-5.0) L Globulin 4.0 g/dL Albumin/Globulin Ratio 0.7 (1.0-2.7) L Current Medications Medications (Trade) Dose Ordered Sig/Aminata Route PRN Reason Start Time Stop Time Status Last Admin Dose Admin Acetaminophen (Tylenol) 650 mg Q4H PRN ORAL FEVER (temp >100.5 F) 09/30/18 21:45 10/30/18 21:44 Albuterol/ Ipratropium (Albuterol/ Ipratropium) 3 ml Q4H PRN HHN Shortness of Breath 09/30/18 21:30 10/05/18 21:29 09/30/18 21:35 Aspirin (ASA) 162 mg DAILY ORAL 10/01/18 09:00 10/29/18 08:59 10/01/18 08:51 Doxycycline Monohydrate (Vibramycin) 100 mg EVERY 12 HOURS ORAL 10/01/18 09:00 10/07/18 20:59 10/01/18 08:52 Enalaprilat (Vasotec) 2.5 mg Q6H PRN IV sbp more than 160 09/30/18 21:45 10/30/18 21:44 Heparin Sodium (Porcine) (Heparin 5000 units/ml) 5,000 units EVERY 12 HOURS SUBQ 10/01/18 09:00 10/29/18 08:59 Hydromorphone HCl (Dilaudid) 2 mg Q3H PRN IVP Severe Pain (Pain Scale 7-10) 09/30/18 21:33 10/06/18 21:32 10/01/18 10:23 Levetiracetam (Keppra) 500 mg DAILY ORAL 10/01/18 09:00 10/29/18 08:59 10/01/18 08:52 Mirtazapine (Remeron) 30 mg BEDTIME ORAL 10/01/18 21:00 10/29/18 20:59 Ondansetron HCl (Zofran) 4 mg Q6H PRN IVP Nausea & Vomiting 09/30/18 21:45 10/30/18 21:44 10/01/18 10:21 Pantoprazole (Protonix) 40 mg EVERY 12 HOURS ORAL 10/01/18 09:00 10/29/18 20:59 10/01/18 08:52 Polyethylene Glycol (Miralax) 17 gm DAILYPRN PRN ORAL Constipation 09/30/18 21:45 10/30/18 21:44 Sucralfate (Carafate) 1 gm FOUR TIMES A DAY ORAL 10/01/18 09:00 10/29/18 12:59 10/01/18 08:51 Temazepam (Restoril) 15 mg HSPRN PRN ORAL Insomnia 09/30/18 21:45 10/07/18 21:44 Theophylline (Wilfrido-Dur) 100 mg EVERY 12 HOURS ORAL 10/01/18 09:00 10/29/18 08:59 10/01/18 08:52 Reuben Reich MD Oct 01, 2018 12:58
[2018-10-01] MEDS ORDERED: Tubing IV Secondary IV ONE (14:11)
[2018-10-01] MEDS ORDERED: NS 275ml ONE (14:11)
[2018-10-01 16:00] VITALS: BP 144/80
--- NOTE | 2018-10-01 17:33 | Cardiology Progress Note ---
Assessment/Plan Status: stable, progressing Assessment/Plan Assessment/Plan Status: stable Assessment/Plan Assessment (1) ACS (acute coronary syndrome) (2) Costochondritis (3) Cellulitis of right leg (4) ATN (acute tubular necrosis) (5) CAD (coronary artery disease) (6) Severe malnutrition (7) Peripheral arterial disease Plan Serial EKG/Troponin Nitro prn chest pain NO indication for stress test at this time Pain control Ranexa Aspirin Plavix Statin EECP outpatient to improve microvascular ischemia Podiatry consult for LE wound Subjective Cardiovascular: Reports: no symptoms Respiratory: Reports: no symptoms Gastrointestinal/Abdominal: Reports: no symptoms Genitourinary: Reports: no symptoms Subjective No acute events, vitals stable, troponin negative. Pt presents with full thickness wound superior but in close proximity to lateral R malleolus (L)4.5cm x (W)2.5cm Objective Last 24 Hour Vital Signs Date Time Temp Pulse Resp B/P (MAP) Pulse Ox O2 Delivery O2 Flow Rate FiO2 10/01/18 16:00 98.6 97 18 144/80 (101) 96 10/01/18 14:41 98.6 10/01/18 11:41 98.1 103 18 159/80 (106) 93 10/01/18 09:00 Room Air 10/01/18 08:00 98.8 101 17 146/73 (97) 93 10/01/18 04:00 98.3 101 18 152/80 (104) 93 10/01/18 00:00 99.3 101 18 136/73 (94) 93 09/30/18 22:00 Room Air 09/30/18 21:47 103 20 99 Room Air 21 09/30/18 21:37 102 18 96 Room Air 21 09/30/18 20:33 95 Room Air 21 09/30/18 20:33 Room Air 21 09/30/18 20:33 94 18 Room Air 21 09/30/18 20:00 98.6 101 18 122/74 (90) 95 General Appearance: no apparent distress, alert EENT: PERRL/EOMI, normal ENT inspection, TMs normal Neck: non-tender, normal alignment, supple Rhythm: NSR Cardiovascular: normal peripheral pulses, normal rate, regular rhythm Respiratory/Chest: chest wall non-tender, lungs clear Abdomen: normal bowel sounds, non tender, soft, no organomegaly Extremities: normal range of motion, non-tender, normal inspection Neurologic: complaint investigator II-XII grossly normal, no motor/sensory deficits Intake and Output 09/30/18 10/01/18 19:00 07:00 Intake Total 920 ml 360 ml Output Total 700 ml 380 ml Balance 220 ml -20 ml Intake Oral 920 ml 360 ml Output Urine Total 700 ml 380 ml Laboratory Tests Test 10/01/18 06:00 White Blood Count 5.8 K/UL (4.8-10.8) Red Blood Count 4.99 M/UL (4.70-6.10) Hemoglobin 13.0 G/DL (14.2-18.0) L Hematocrit 41.0 % (42.0-52.0) L Mean Corpuscular Volume 82 FL (80-99) Mean Corpuscular Hemoglobin 26.0 PG (27.0-31.0) L Mean Corpuscular Hemoglobin Concent 31.7 G/DL (32.0-36.0) L Red Cell Distribution Width 15.8 % (11.6-14.8) H Platelet Count 286 K/UL (150-450) Mean Platelet Volume 6.1 FL (6.5-10.1) L Neutrophils (%) (Auto) 46.0 % (45.0-75.0) Lymphocytes (%) (Auto) 35.5 % (20.0-45.0) Monocytes (%) (Auto) 9.4 % (1.0-10.0) Eosinophils (%) (Auto) 7.7 % (0.0-3.0) H Basophils (%) (Auto) 1.6 % (0.0-2.0) Prothrombin Time 10.4 SEC (9.30-11.50) Prothromb Time International Ratio 1.0 (0.9-1.1) Activated Partial Thromboplast Time 30 SEC (23-33) Sodium Level 138 MMOL/L (136-145) Potassium Level 5.4 MMOL/L (3.5-5.1) H Chloride Level 102 MMOL/L (98-107) Carbon Dioxide Level 29 MMOL/L (21-32) Anion Gap 8 mmol/L (5-15) Blood Urea Nitrogen 12 mg/dL (7-18) Creatinine 1.5 MG/DL (0.55-1.30) H Estimat Glomerular Filtration Rate 56.4 mL/min (>60) Glucose Level 82 MG/DL (74-106) Calcium Level 8.6 MG/DL (8.5-10.1) Phosphorus Level 3.8 MG/DL (2.5-4.9) Magnesium Level 1.8 MG/DL (1.8-2.4) Total Bilirubin 0.3 MG/DL (0.2-1.0) Aspartate Amino Transf (AST/SGOT) 20 U/L (15-37) Alanine Aminotransferase (ALT/SGPT) 19 U/L (12-78) Alkaline Phosphatase 131 U/L (46-116) H Troponin I 0.001 ng/mL (0.000-0.056) Pro-B-Type Natriuretic Peptide 883 pg/mL (0-125) H Total Protein 6.8 G/DL (6.4-8.2) Albumin 2.8 G/DL (3.4-5.0) L Globulin 4.0 g/dL Albumin/Globulin Ratio 0.7 (1.0-2.7) L Adonis Winn MD Oct 01, 2018 17:33
[2018-10-01] MEDS ORDERED: Sodium Polystyrene Sulfonate 15gm Powder ORAL SCH (18:30)
--- NOTE | 2018-10-01 18:45 | Progress Note ---
DATE: 10/01/2018 SUBJECTIVE: The patient is the same. Mental condition is unchanged since previous encounter. Continues to complain of pain. He is irritable and has multiple complaints about different staff and doctors. He has poor insight and judgment into his mental condition, in bed, watching TV . MENTAL STATUS EXAMINATION: The patient is alert and oriented times self, place, and situation he is in. Mood is dysphoric. Affect is constricted. Congruent with mood. Thought process is concrete. Thought content, no suicidal or homicidal ideations. No delusions. Insight and judgment is poor. ASSESSMENT: 1. Substance use disorder. 2. Cluster B personality disorder. 3. Depression. PLAN: 1. The patient will be continued on Remeron 30 mg at bedtime. 2. Provide the patient with supportive therapy and reality orientation. Rachael Buckley M.D. DR: Gene JOB#: [id number] CC:
--- NOTE | 2018-10-01 19:02 | Internal Med Progress Note ---
Subjective Date of Service: Oct 01, 2018 Physician Name Shantanu Reyna Attending Physician Phil Wright MD Current Medications Medications (Trade) Dose Ordered Sig/Aminata Route PRN Reason Start Time Stop Time Status Last Admin Dose Admin Acetaminophen (Tylenol) 650 mg Q4H PRN ORAL FEVER (temp >100.5 F) 09/30/18 21:45 10/30/18 21:44 Albuterol/ Ipratropium (Albuterol/ Ipratropium) 3 ml Q4H PRN HHN Shortness of Breath 09/30/18 21:30 10/05/18 21:29 09/30/18 21:35 Aspirin (ASA) 162 mg DAILY ORAL 10/01/18 09:00 10/29/18 08:59 10/01/18 08:51 Doxycycline Monohydrate (Vibramycin) 100 mg EVERY 12 HOURS ORAL 10/01/18 09:00 10/07/18 20:59 10/01/18 08:52 Enalaprilat (Vasotec) 2.5 mg Q6H PRN IV sbp more than 160 09/30/18 21:45 10/30/18 21:44 Heparin Sodium (Porcine) (Heparin 5000 units/ml) 5,000 units EVERY 12 HOURS SUBQ 10/01/18 09:00 10/29/18 08:59 Hydromorphone HCl (Dilaudid) 2 mg Q3H PRN IVP Severe Pain (Pain Scale 7-10) 09/30/18 21:33 10/06/18 21:32 10/01/18 17:32 Levetiracetam (Keppra) 500 mg DAILY ORAL 10/01/18 09:00 10/29/18 08:59 10/01/18 08:52 Mirtazapine (Remeron) 30 mg BEDTIME ORAL 10/01/18 21:00 10/29/18 20:59 Ondansetron HCl (Zofran) 4 mg Q6H PRN IVP Nausea & Vomiting 09/30/18 21:45 10/30/18 21:44 10/01/18 10:21 Pantoprazole (Protonix) 40 mg EVERY 12 HOURS ORAL 10/01/18 09:00 10/29/18 20:59 10/01/18 08:52 Polyethylene Glycol (Miralax) 17 gm DAILYPRN PRN ORAL Constipation 09/30/18 21:45 10/30/18 21:44 Sodium Polystyrene Sulfonate (Kayexalate) 30 gm ONCE ORAL 10/01/18 18:30 10/01/18 22:00 Sucralfate (Carafate) 1 gm FOUR TIMES A DAY ORAL 10/01/18 09:00 10/29/18 12:59 10/01/18 17:32 Temazepam (Restoril) 15 mg HSPRN PRN ORAL Insomnia 09/30/18 21:45 10/07/18 21:44 Theophylline (Wilfrido-Dur) 100 mg EVERY 12 HOURS ORAL 10/01/18 09:00 10/29/18 08:59 10/01/18 08:52 Allergies: Coded Allergies: EGG (Verified Allergy, Unknown, 09/28/18) MEPERIDINE (Verified Allergy, Unknown, 09/28/18) MORPHINE (Verified Allergy, Unknown, 09/28/18) NITROGLYCERIN (Verified Allergy, Unknown, hives, 09/28/18) ROS Limited/Unobtainable: No Constitutional: Reports: no symptoms HEENT: Reports: no symptoms Cardiovascular: Reports: chest pain Respiratory: Reports: no symptoms Gastrointestinal/Abdominal: Reports: no symptoms Genitourinary: Reports: no symptoms 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: Reports: no symptoms Subjective 67 YO M admitted with chief complaint of chest pain. "Why are you here? I thought you weren't my doctor anymore." Cover for Int Med-Dr Wright Objective Last Vital Signs Date Time Temp Pulse Resp B/P (MAP) Pulse Ox O2 Delivery O2 Flow Rate FiO2 10/01/18 18:02 98.6 10/01/18 16:00 97 18 144/80 (101) 96 10/01/18 09:00 Room Air 09/30/18 21:47 21 09/30/18 09:00 2.0 Laboratory Tests Test 10/01/18 06:00 White Blood Count 5.8 K/UL (4.8-10.8) Red Blood Count 4.99 M/UL (4.70-6.10) Hemoglobin 13.0 G/DL (14.2-18.0) L Hematocrit 41.0 % (42.0-52.0) L Mean Corpuscular Volume 82 FL (80-99) Mean Corpuscular Hemoglobin 26.0 PG (27.0-31.0) L Mean Corpuscular Hemoglobin Concent 31.7 G/DL (32.0-36.0) L Red Cell Distribution Width 15.8 % (11.6-14.8) H Platelet Count 286 K/UL (150-450) Mean Platelet Volume 6.1 FL (6.5-10.1) L Neutrophils (%) (Auto) 46.0 % (45.0-75.0) Lymphocytes (%) (Auto) 35.5 % (20.0-45.0) Monocytes (%) (Auto) 9.4 % (1.0-10.0) Eosinophils (%) (Auto) 7.7 % (0.0-3.0) H Basophils (%) (Auto) 1.6 % (0.0-2.0) Prothrombin Time 10.4 SEC (9.30-11.50) Prothromb Time International Ratio 1.0 (0.9-1.1) Activated Partial Thromboplast Time 30 SEC (23-33) Sodium Level 138 MMOL/L (136-145) Potassium Level 5.4 MMOL/L (3.5-5.1) H Chloride Level 102 MMOL/L (98-107) Carbon Dioxide Level 29 MMOL/L (21-32) Anion Gap 8 mmol/L (5-15) Blood Urea Nitrogen 12 mg/dL (7-18) Creatinine 1.5 MG/DL (0.55-1.30) H Estimat Glomerular Filtration Rate 56.4 mL/min (>60) Glucose Level 82 MG/DL (74-106) Calcium Level 8.6 MG/DL (8.5-10.1) Phosphorus Level 3.8 MG/DL (2.5-4.9) Magnesium Level 1.8 MG/DL (1.8-2.4) Total Bilirubin 0.3 MG/DL (0.2-1.0) Aspartate Amino Transf (AST/SGOT) 20 U/L (15-37) Alanine Aminotransferase (ALT/SGPT) 19 U/L (12-78) Alkaline Phosphatase 131 U/L (46-116) H Troponin I 0.001 ng/mL (0.000-0.056) Pro-B-Type Natriuretic Peptide 883 pg/mL (0-125) H Total Protein 6.8 G/DL (6.4-8.2) Albumin 2.8 G/DL (3.4-5.0) L Globulin 4.0 g/dL Albumin/Globulin Ratio 0.7 (1.0-2.7) L Intake and Output 09/30/18 10/01/18 19:00 07:00 Intake Total 920 ml 360 ml Output Total 700 ml 380 ml Balance 220 ml -20 ml Intake Oral 920 ml 360 ml Output Urine Total 700 ml 380 ml Objective General Appearance: WD/WN, no apparent distress, alert, thin EENT: PERRL/EOMI, normal ENT inspection Neck: non-tender, normal alignment, supple, normal inspection Cardiovascular: normal peripheral pulses, normal rate, regular rhythm, no gallop/murmur, no JVD Respiratory/Chest: chest wall non-tender, lungs clear, normal breath sounds, no respiratory distress, no accessory muscle use Abdomen: normal bowel sounds, non tender, soft, no organomegaly, no mass, abnormal bowel sounds Extremities: normal range of motion, non-tender Neurologic: director software II-XII grossly normal, no motor/sensory deficits Skin: normal pigmentation, warm/dry Assessment/Plan Problem List: (1) Chest pain (2) Seizure disorder Assessment & Plan: Continue Keppra (3) CAD (coronary artery disease) Assessment & Plan: Continue aspirin. Not on plavix currently. See cardiology note. (4) COPD exacerbation Assessment & Plan: see pulmonary note. (5) HTN (hypertension) Assessment & Plan: Continue cardizem and vasotec (6) Irritable behavior (7) Opiate dependence, continuous (8) Borderline personality disorder Assessment & Plan: See psych note. Threatening to kill both Dr Wright and Dr Reyna Status: not improved Shantanu Reyna MD Oct 01, 2018 19:02
[2018-10-01 20:00] VITALS: BP 119/68
[2018-10-02] VITALS: BP 124/71
[2018-10-02 04:00] VITALS: BP 141/78
[2018-10-02 06:30] LABS: BASOPHILS % (AUTO) 1.9 % (0.0-2.0); EOSINOPHILS % (AUTO) 7.5 % (0.0-3.0); HEMATOCRIT 35.7 % (42.0-52.0); HEMOGLOBIN 11.4 G/DL (14.2-18.0); LYMPHOCYTES % (AUTO) 33.9 % (20.0-45.0); MEAN CORPUSCULAR VOLUME 81 FL (80-99); MONOCYTES % (AUTO) 13.5 % (1.0-10.0); NEUTROPHILS % (AUTO) 43.2 % (45.0-75.0); PLATELET COUNT 279 K/UL (150-450); RED BLOOD COUNT 4.42 M/UL (4.70-6.10); RED CELL DISTRIBUTION WIDTH 15.5 % (11.6-14.8); WHITE BLOOD COUNT 5.6 K/UL (4.8-10.8)
[2018-10-02 06:35] LABS: ALANINE AMINOTRANSFERASE 15 U/L (12-78); ALBUMIN 2.3 G/DL (3.4-5.0); ALBUMIN/GLOBULIN RATIO 0.5 (1.0-2.7); ALKALINE PHOSPHATASE 118 U/L (46-116); ANION GAP 6 mmol/L (5-15); ASPARTATE AMINO TRANSFERASE 14 U/L (15-37); BILIRUBIN,TOTAL 0.2 MG/DL (0.2-1.0); BLOOD UREA NITROGEN 16 mg/dL (7-18); CALCIUM 8.4 MG/DL (8.5-10.1); CARBON DIOXIDE 29 MMOL/L (21-32); CHLORIDE 102 MMOL/L (98-107); CREATININE 1.4 MG/DL (0.55-1.30); PHOSPHORUS 3.3 MG/DL (2.5-4.9); POTASSIUM 4.5 MMOL/L (3.5-5.1); SODIUM 136 MMOL/L (136-145)
[2018-10-02] MEDS: Albuterol/Ipratropium 3ml neb HHN PRN ×2 (07:21→16:04)
[2018-10-02 08:11] VITALS: BP 165/86
[2018-10-02] MEDS: Aspirin Baby 81mg ORAL SCH (08:48)
[2018-10-02] MEDS: Sucralfate 1gm tab ORAL SCH ×4 (08:48→20:01)
[2018-10-02] MEDS: Theophylline ER 100mg ORAL SCH ×2 (08:48→20:05)
[2018-10-02] MEDS: Heparin 5000 units/ml inj SUBQ SCH ×2 (08:58→20:05)
--- NOTE | 2018-10-02 10:28 | Cardiology Progress Note ---
Assessment/Plan Status: stable Assessment/Plan Assessment/Plan Status: stable Assessment/Plan Assessment (1) ACS (acute coronary syndrome) (2) Costochondritis (3) Cellulitis of right leg (4) ATN (acute tubular necrosis) (5) CAD (coronary artery disease) (6) Severe malnutrition (7) Peripheral arterial disease Plan Serial EKG/Troponin Nitro prn chest pain NO indication for stress test at this time Pain control Ranexa Aspirin Plavix Statin EECP outpatient to improve microvascular ischemia Podiatry consult for LE wound Subjective Cardiovascular: Reports: no symptoms Respiratory: Reports: no symptoms Gastrointestinal/Abdominal: Reports: no symptoms Genitourinary: Reports: no symptoms Subjective No acute events, vitals stable, troponin negative. Pt presents with full thickness wound superior but in close proximity to lateral R malleolus (L)4.5cm x (W)2.5cm Complain of leg pain, wants morphine, vitals stable, Mg low today, tolerating PO , no distress Objective Last 24 Hour Vital Signs Date Time Temp Pulse Resp B/P (MAP) Pulse Ox O2 Delivery O2 Flow Rate FiO2 10/02/18 09:19 98.2 10/02/18 08:11 98.2 107 22 165/86 (112) 94 10/02/18 07:28 99 20 99 Room Air 21 10/02/18 07:24 Room Air 21 10/02/18 07:23 96 Room Air 21 10/02/18 07:23 101 20 Room Air 21 10/02/18 07:22 101 20 96 Room Air 21 10/02/18 04:00 97.8 101 18 141/78 (99) 94 10/02/18 00:00 98.4 98 18 124/71 (88) 93 10/01/18 22:34 Room Air 10/01/18 20:13 Room Air 21 10/01/18 20:13 100 18 Room Air 21 10/01/18 20:13 95 Room Air 21 10/01/18 20:00 98.5 100 18 119/68 (85) 91 10/01/18 16:00 98.6 97 18 144/80 (101) 96 10/01/18 11:41 98.1 103 18 159/80 (106) 93 General Appearance: no apparent distress, alert EENT: PERRL/EOMI, normal ENT inspection Neck: non-tender, normal alignment, supple, normal inspection, no JVD Rhythm: NSR Cardiovascular: normal peripheral pulses, normal rate, regular rhythm Respiratory/Chest: chest wall non-tender, lungs clear Abdomen: normal bowel sounds, non tender, soft Extremities: normal range of motion, non-tender Neurologic: bilingual office assistant II-XII grossly normal, no motor/sensory deficits Intake and Output 10/01/18 10/02/18 19:00 07:00 Intake Total 480 ml 960 ml Output Total 900 ml 900 ml Balance -420 ml 60 ml Intake Oral 480 ml 960 ml Output Urine Total 900 ml 900 ml Laboratory Tests Test 10/02/18 05:50 White Blood Count 5.6 K/UL (4.8-10.8) Red Blood Count 4.42 M/UL (4.70-6.10) L Hemoglobin 11.4 G/DL (14.2-18.0) L Hematocrit 35.7 % (42.0-52.0) L Mean Corpuscular Volume 81 FL (80-99) Mean Corpuscular Hemoglobin 25.7 PG (27.0-31.0) L Mean Corpuscular Hemoglobin Concent 31.8 G/DL (32.0-36.0) L Red Cell Distribution Width 15.5 % (11.6-14.8) H Platelet Count 279 K/UL (150-450) Mean Platelet Volume 6.1 FL (6.5-10.1) L Neutrophils (%) (Auto) 43.2 % (45.0-75.0) L Lymphocytes (%) (Auto) 33.9 % (20.0-45.0) Monocytes (%) (Auto) 13.5 % (1.0-10.0) H Eosinophils (%) (Auto) 7.5 % (0.0-3.0) H Basophils (%) (Auto) 1.9 % (0.0-2.0) Sodium Level 136 MMOL/L (136-145) Potassium Level 4.5 MMOL/L (3.5-5.1) Chloride Level 102 MMOL/L (98-107) Carbon Dioxide Level 29 MMOL/L (21-32) Anion Gap 6 mmol/L (5-15) Blood Urea Nitrogen 16 mg/dL (7-18) Creatinine 1.4 MG/DL (0.55-1.30) H Estimat Glomerular Filtration Rate > 60 mL/min (>60) Glucose Level 100 MG/DL (74-106) Calcium Level 8.4 MG/DL (8.5-10.1) L Phosphorus Level 3.3 MG/DL (2.5-4.9) Magnesium Level 1.6 MG/DL (1.8-2.4) L Total Bilirubin 0.2 MG/DL (0.2-1.0) Aspartate Amino Transf (AST/SGOT) 14 U/L (15-37) L Alanine Aminotransferase (ALT/SGPT) 15 U/L (12-78) Alkaline Phosphatase 118 U/L (46-116) H Total Protein 6.5 G/DL (6.4-8.2) Albumin 2.3 G/DL (3.4-5.0) L Globulin 4.2 g/dL Albumin/Globulin Ratio 0.5 (1.0-2.7) L Adonis Winn MD Oct 02, 2018 10:28
[2018-10-02 11:34] VITALS: BP 144/77
--- NOTE | 2018-10-02 11:45 | Consultation ---
History of Present Illness General Chief Complaint: Chest Pain Reason for Consultation: sternal wires Present Illness HPI patient well known to me from prior admissions. has lower extremity wounds and sternal wires wounds. returns to ED with complaints of chest pain. work up negative for cardiac etiology. hx of cardiac disease requiring CABG and cath in past. Prior cardiac surgery over 10+ years ago. since has lost significant weight and sternal wires have began to externalize causing wounds/scar and pain. lower extremity wounds have much improved since I first saw him. surgery called to evaluate after cardiac etiology ruled out. patient seen, chart reviewed, patient examined. Allergies: Coded Allergies: EGG (Verified Allergy, Unknown, 09/28/18) MEPERIDINE (Verified Allergy, Unknown, 09/28/18) MORPHINE (Verified Allergy, Unknown, 09/28/18) NITROGLYCERIN (Verified Allergy, Unknown, hives, 09/28/18) Medication History Scheduled Aspirin* (Aspirin*), 325 MG ORAL DAILY, (Reported) Atorvastatin Calcium* (Atorvastatin Calcium*), 20 MG ORAL BEDTIME, (Reported) Hydromorphone Hcl (Hydromorphone Hcl), 8 MG PO Q6HR, (Reported) Levetiracetam (Keppra), 500 MG ORAL DAILY, (Reported) Metoprolol Succinate* (Metoprolol Succinate*), 50 MG ORAL BID, (Reported) Mirtazapine* (Remeron*), 15 MG ORAL BEDTIME, (Reported) Prednisone* (Prednisone*), 20 MG ORAL DAILY, (Reported) Theophylline (Theodur*), 100 MG ORAL EVERY 12 HOURS Scheduled PRN Albuterol Sulfate (Ventolin Hfa), 1 PUFF INH EVERY 6 HOURS PRN Discontinued Medications Amlodipine Besylate* (Amlodipine Besylate*), 10 MG ORAL DAILY, (Reported) Discontinued Reason: Therapy completed Cephalexin* (Keflex*), 500 MG ORAL EVERY 8 HOURS, (Reported) Discontinued Reason: Therapy completed Clopidogrel Bisulfate* (Plavix*), 75 MG ORAL DAILY, (Reported) Discontinued Reason: Therapy completed Docusate Sodium* (Colace*), 100 MG ORAL DAILY PRN for Constipation, (Reported) Discontinued Reason: Therapy completed Lidocaine (Lidoderm), 1 PATCH TOPIC see instructions Discontinued Reason: Therapy completed Meclizine Hcl* (Meclizine*), 25 MG ORAL THREE TIMES A DAY, (Reported) Discontinued Reason: Therapy completed Omeprazole Magnesium (Prilosec Otc), 40 MG ORAL DAILY, (Reported) Discontinued Reason: Therapy completed Ondansetron Hcl* (Zofran*), 8 MG ORAL Q6H PRN for Nausea & Vomiting, (Reported) Discontinued Reason: Therapy completed Oxycodone Hcl/Acetaminophen 10-325* (Oxycodone-Acetaminophen 10-325*), 1 TAB ORAL Q4H PRN for For Pain, (Reported) Discontinued Reason: Therapy completed Ranitidine Hcl* (Zantac*), 150 MG ORAL Q12HR Discontinued Reason: Therapy completed Patient History History Provided By: Patient, Medical Record, PMD Healthcare decision maker Resuscitation status Full Code Advanced Directive on File Past Medical/Surgical History Past Medical/Surgical History: (1) Costochondritis (2) Seizure disorder (3) Chest pain (4) Irritable behavior (5) Opiate dependence, continuous (6) Borderline personality disorder (7) Emphysema lung (8) Atypical chest pain (9) Cardiac dysrhythmia (10) Decubitus ulcer, ankle, right, unstageable (11) ACS (acute coronary syndrome) (12) Esophagitis (13) Hyperkalemia (14) Shingles (15) CAD (coronary artery disease) (16) Hypothyroidism (17) Peripheral vascular disease (18) Acute bronchitis (19) ATN (acute tubular necrosis) (20) Pneumonia (21) Severe malnutrition (22) HTN (hypertension) (23) COPD exacerbation (24) Peripheral arterial disease (25) FTT (failure to thrive) in adult (26) Acute on chronic renal failure (27) Hip dislocation, right (28) Osteomyelitis of right leg (29) Cellulitis of right leg (30) Chronic ulcer of right leg (31) Acute encephalopathy (32) Intractable back pain (33) Closed fracture of tibia and fibula with malunion (34) Nonhealing ulcer of right lower extremity Review of Systems All Other Systems: negative except mentioned in HPI Physical Exam General Appearance: no apparent distress, alert Lines, tubes and drains: peripheral HEENT: normocephalic, atraumatic, mucous membranes moist Neck: supple Respiratory/Chest: lungs clear, normal breath sounds, no respiratory distress Cardiovascular/Chest: regular rhythm, other - two sets of sternal wires noted at skin level. lower ones with wounds which are choronic. Abdomen: soft, no organomegaly, no mass Extremities: normal inspection, other Skin Exam: warm/dry, other Neurologic: alert, oriented x 3 Last 24 Hour Vital Signs Date Time Temp Pulse Resp B/P (MAP) Pulse Ox O2 Delivery O2 Flow Rate FiO2 10/02/18 11:34 97.7 108 22 144/77 (99) 95 10/02/18 09:19 98.2 10/02/18 08:11 98.2 107 22 165/86 (112) 94 10/02/18 07:28 99 20 99 Room Air 21 10/02/18 07:24 Room Air 21 10/02/18 07:23 96 Room Air 21 10/02/18 07:23 101 20 Room Air 21 10/02/18 07:22 101 20 96 Room Air 21 10/02/18 04:00 97.8 101 18 141/78 (99) 94 10/02/18 00:00 98.4 98 18 124/71 (88) 93 10/01/18 22:34 Room Air 10/01/18 20:13 Room Air 21 10/01/18 20:13 100 18 Room Air 21 10/01/18 20:13 95 Room Air 21 10/01/18 20:00 98.5 100 18 119/68 (85) 91 10/01/18 16:00 98.6 97 18 144/80 (101) 96 10/01/18 11:41 98.1 103 18 159/80 (106) 93 Intake and Output 10/01/18 10/02/18 19:00 07:00 Intake Total 480 ml 960 ml Output Total 900 ml 900 ml Balance -420 ml 60 ml Intake Oral 480 ml 960 ml Output Urine Total 900 ml 900 ml Laboratory Tests Test 10/02/18 05:50 White Blood Count 5.6 K/UL (4.8-10.8) Red Blood Count 4.42 M/UL (4.70-6.10) L Hemoglobin 11.4 G/DL (14.2-18.0) L Hematocrit 35.7 % (42.0-52.0) L Mean Corpuscular Volume 81 FL (80-99) Mean Corpuscular Hemoglobin 25.7 PG (27.0-31.0) L Mean Corpuscular Hemoglobin Concent 31.8 G/DL (32.0-36.0) L Red Cell Distribution Width 15.5 % (11.6-14.8) H Platelet Count 279 K/UL (150-450) Mean Platelet Volume 6.1 FL (6.5-10.1) L Neutrophils (%) (Auto) 43.2 % (45.0-75.0) L Lymphocytes (%) (Auto) 33.9 % (20.0-45.0) Monocytes (%) (Auto) 13.5 % (1.0-10.0) H Eosinophils (%) (Auto) 7.5 % (0.0-3.0) H Basophils (%) (Auto) 1.9 % (0.0-2.0) Sodium Level 136 MMOL/L (136-145) Potassium Level 4.5 MMOL/L (3.5-5.1) Chloride Level 102 MMOL/L (98-107) Carbon Dioxide Level 29 MMOL/L (21-32) Anion Gap 6 mmol/L (5-15) Blood Urea Nitrogen 16 mg/dL (7-18) Creatinine 1.4 MG/DL (0.55-1.30) H Estimat Glomerular Filtration Rate > 60 mL/min (>60) Glucose Level 100 MG/DL (74-106) Calcium Level 8.4 MG/DL (8.5-10.1) L Phosphorus Level 3.3 MG/DL (2.5-4.9) Magnesium Level 1.6 MG/DL (1.8-2.4) L Total Bilirubin 0.2 MG/DL (0.2-1.0) Aspartate Amino Transf (AST/SGOT) 14 U/L (15-37) L Alanine Aminotransferase (ALT/SGPT) 15 U/L (12-78) Alkaline Phosphatase 118 U/L (46-116) H Total Protein 6.5 G/DL (6.4-8.2) Albumin 2.3 G/DL (3.4-5.0) L Globulin 4.2 g/dL Albumin/Globulin Ratio 0.5 (1.0-2.7) L Height (Feet): 6 Height (Inches): 1.00 Weight (Pounds): 132 Medications Current Medications Medications (Trade) Dose Ordered Sig/Aminata Route PRN Reason Start Time Stop Time Status Last Admin Dose Admin Acetaminophen (Tylenol) 650 mg Q4H PRN ORAL FEVER (temp >100.5 F) 09/30/18 21:45 10/30/18 21:44 Albuterol/ Ipratropium (Albuterol/ Ipratropium) 3 ml Q4H PRN HHN Shortness of Breath 09/30/18 21:30 10/05/18 21:29 10/02/18 07:21 Aspirin (ASA) 162 mg DAILY ORAL 10/01/18 09:00 10/29/18 08:59 10/02/18 08:48 Doxycycline Monohydrate (Vibramycin) 100 mg EVERY 12 HOURS ORAL 10/01/18 09:00 10/07/18 20:59 10/02/18 08:48 Enalaprilat (Vasotec) 2.5 mg Q6H PRN IV sbp more than 160 09/30/18 21:45 10/30/18 21:44 Heparin Sodium (Porcine) (Heparin 5000 units/ml) 5,000 units EVERY 12 HOURS SUBQ 10/01/18 09:00 10/29/18 08:59 10/02/18 08:58 Hydromorphone HCl (Dilaudid) 2 mg Q3H PRN IVP Severe Pain (Pain Scale 7-10) 09/30/18 21:33 10/06/18 21:32 10/02/18 08:49 Levetiracetam (Keppra) 500 mg DAILY ORAL 10/01/18 09:00 10/29/18 08:59 10/02/18 08:48 Mirtazapine (Remeron) 30 mg BEDTIME ORAL 10/01/18 21:00 10/29/18 20:59 10/01/18 21:33 Ondansetron HCl (Zofran) 4 mg Q6H PRN IVP Nausea & Vomiting 09/30/18 21:45 10/30/18 21:44 10/01/18 10:21 Pantoprazole (Protonix) 40 mg EVERY 12 HOURS ORAL 10/01/18 09:00 10/29/18 20:59 10/02/18 08:48 Polyethylene Glycol (Miralax) 17 gm DAILYPRN PRN ORAL Constipation 09/30/18 21:45 10/30/18 21:44 Sucralfate (Carafate) 1 gm FOUR TIMES A DAY ORAL 10/01/18 09:00 10/29/18 12:59 10/02/18 08:48 Temazepam (Restoril) 15 mg HSPRN PRN ORAL Insomnia 09/30/18 21:45 10/07/18 21:44 Theophylline (Wilfrido-Dur) 100 mg EVERY 12 HOURS ORAL 10/01/18 09:00 10/29/18 08:59 10/02/18 08:48 Assessment/Plan Problem List: (1) Atypical chest pain Assessment & Plan: cardiac work up negative patient well known to me prior recommended him to seek cardiac surgery eval as an outpatient. he did not again noted sternal wires at skin level wound chronic wounds from foreign body. recommend sternal wire removal. unfortunately cannot be done at [facility] [place] and can be done electively referral to cardiac surgery given to patient. I had spoken to a cardiac surgery who is willing to see patient and remove wires electively. office info and contact info given directly to patient for referral. he states he will f/u as outpatient. okay to d/c from surgical standpoint thank you for this consultation. ICD Codes: R07.89 - Other chest pain SNOMED: [id number] Status: stable Ugo Simms Oct 02, 2018 11:45
--- NOTE | 2018-10-02 13:12 | Consultation ---
Consult Note Consult Note S: Pt seen bedside with nursing staff. Pt was originally admitted for acute chest pain. Podiatry service consulted for Right ankle superficial ulceration. He relates moderate paint to RLE, denies any acute SOI. Confirms nursing staff is C/D/I. O: Focused RLE Exam: Superficial Ulceration noted dorso-lateral ankle. Wound measurements approx 3.0cm x 4.0 cm x 0.1cm. No active purulence noted to wound. Temp differential WNL. Pulses DP/PT +1/4. (+) POP rajwinder-wound margins. Assessment/Plan 1) Chronic Right Lateral Ankle superficial ulceration. 2) Peripheral Vascular disease RLE. - Pt seen and evaluated. - Discuss findings with patient. - Recommend ESR, CRP. - Recommend Right Ankle XR. - Recommend Arterial U/S RLE. - Cont daily wound care: apply xeroform, 4 x 4 gauze, kerlix and ABD pad. - RLE ankle ulceration appears to be stable. No gross clinical acute SOI. - At this time, no surgical intervention warranted. Will await laboratory and imaging studies. Torres Stephens DPM Oct 02, 2018 13:11
--- NOTE | 2018-10-02 13:55 | Pulmonology Progress Note ---
Assessment/Plan Problems: (1) ACS (acute coronary syndrome) (2) Costochondritis (3) Cellulitis of right leg (4) ATN (acute tubular necrosis) (5) CAD (coronary artery disease) (6) Severe malnutrition (7) Peripheral arterial disease Assessment/Plan all reviewed feeling better no new complains respiratory treatment f/u electrolytes symptomatic treatment f/u psych recommendations Subjective ROS Limited/Unobtainable: No Constitutional: Reports: no symptoms HEENT: Repors: no symptoms Respiratory: Reports: no symptoms Allergies: Coded Allergies: EGG (Verified Allergy, Unknown, 09/28/18) MEPERIDINE (Verified Allergy, Unknown, 09/28/18) MORPHINE (Verified Allergy, Unknown, 09/28/18) NITROGLYCERIN (Verified Allergy, Unknown, hives, 09/28/18) Objective Last 24 Hour Vital Signs Date Time Temp Pulse Resp B/P (MAP) Pulse Ox O2 Delivery O2 Flow Rate FiO2 10/02/18 12:31 97.7 10/02/18 11:34 97.7 108 22 144/77 (99) 95 10/02/18 09:00 Room Air 10/02/18 08:11 98.2 107 22 165/86 (112) 94 10/02/18 07:28 99 20 99 Room Air 21 10/02/18 07:24 Room Air 21 10/02/18 07:23 96 Room Air 21 10/02/18 07:23 101 20 Room Air 21 10/02/18 07:22 101 20 96 Room Air 21 10/02/18 04:00 97.8 101 18 141/78 (99) 94 10/02/18 00:00 98.4 98 18 124/71 (88) 93 10/01/18 22:34 Room Air 10/01/18 20:13 Room Air 21 10/01/18 20:13 100 18 Room Air 21 10/01/18 20:13 95 Room Air 21 10/01/18 20:00 98.5 100 18 119/68 (85) 91 10/01/18 16:00 98.6 97 18 144/80 (101) 96 Intake and Output 10/01/18 10/02/18 19:00 07:00 Intake Total 480 ml 960 ml Output Total 900 ml 900 ml Balance -420 ml 60 ml Intake Oral 480 ml 960 ml Output Urine Total 900 ml 900 ml General Appearance: no acute distress, cachetic HEENT: anicteric Respiratory/Chest: chest wall non-tender, lungs clear Cardiovascular: normal peripheral pulses, normal rate Abdomen: normal bowel sounds, soft, non tender Extremities: no cyanosis Skin: no rash Laboratory Tests 10/02/18 05:50: White Blood Count 5.6, Red Blood Count 4.42L, Hemoglobin 11.4L, Hematocrit 35.7L , Mean Corpuscular Volume 81, Mean Corpuscular Hemoglobin 25.7L, Mean Corpuscular Hemoglobin Concent 31.8L, Red Cell Distribution Width 15.5H, Platelet Count 279, Mean Platelet Volume 6.1L, Neutrophils (%) (Auto) 43.2L, Lymphocytes (%) (Auto) 33.9, Monocytes (%) (Auto) 13.5H, Eosinophils (%) (Auto) 7.5H, Basophils (%) (Auto) 1.9, Sodium Level 136, Potassium Level 4.5, Chloride Level 102, Carbon Dioxide Level 29, Anion Gap 6, Blood Urea Nitrogen 16, Creatinine 1.4H, Estimat Glomerular Filtration Rate > 60, Glucose Level 100, Calcium Level 8.4L, Phosphorus Level 3.3, Magnesium Level 1.6L, Total Bilirubin 0.2, Aspartate Amino Transf (AST/SGOT) 14L, Alanine Aminotransferase (ALT/SGPT) 15, Alkaline Phosphatase 118H, Total Protein 6.5, Albumin 2.3L, Globulin 4.2, Albumin/Globulin Ratio 0.5L Current Medications Medications (Trade) Dose Ordered Sig/Aminata Route PRN Reason Start Time Stop Time Status Last Admin Dose Admin Acetaminophen (Tylenol) 650 mg Q4H PRN ORAL FEVER (temp >100.5 F) 09/30/18 21:45 10/30/18 21:44 Albuterol/ Ipratropium (Albuterol/ Ipratropium) 3 ml Q4H PRN HHN Shortness of Breath 09/30/18 21:30 10/05/18 21:29 10/02/18 07:21 Aspirin (ASA) 162 mg DAILY ORAL 10/01/18 09:00 10/29/18 08:59 10/02/18 08:48 Doxycycline Monohydrate (Vibramycin) 100 mg EVERY 12 HOURS ORAL 10/01/18 09:00 10/07/18 20:59 10/02/18 08:48 Enalaprilat (Vasotec) 2.5 mg Q6H PRN IV sbp more than 160 09/30/18 21:45 10/30/18 21:44 Heparin Sodium (Porcine) (Heparin 5000 units/ml) 5,000 units EVERY 12 HOURS SUBQ 10/01/18 09:00 10/29/18 08:59 10/02/18 08:58 Hydromorphone HCl (Dilaudid) 2 mg Q3H PRN IVP Severe Pain (Pain Scale 7-10) 09/30/18 21:33 10/06/18 21:32 10/02/18 12:01 Levetiracetam (Keppra) 500 mg DAILY ORAL 10/01/18 09:00 10/29/18 08:59 10/02/18 08:48 Mirtazapine (Remeron) 30 mg BEDTIME ORAL 10/01/18 21:00 10/29/18 20:59 10/01/18 21:33 Ondansetron HCl (Zofran) 4 mg Q6H PRN IVP Nausea & Vomiting 09/30/18 21:45 10/30/18 21:44 10/01/18 10:21 Pantoprazole (Protonix) 40 mg EVERY 12 HOURS ORAL 10/01/18 09:00 10/29/18 20:59 10/02/18 08:48 Polyethylene Glycol (Miralax) 17 gm DAILYPRN PRN ORAL Constipation 09/30/18 21:45 10/30/18 21:44 Sucralfate (Carafate) 1 gm FOUR TIMES A DAY ORAL 10/01/18 09:00 10/29/18 12:59 10/02/18 12:01 Temazepam (Restoril) 15 mg HSPRN PRN ORAL Insomnia 09/30/18 21:45 10/07/18 21:44 Theophylline (Wilfrido-Dur) 100 mg EVERY 12 HOURS ORAL 10/01/18 09:00 10/29/18 08:59 10/02/18 08:48 Jessie Magana MD Oct 02, 2018 13:55
[2018-10-02 15:34] VITALS: BP 157/88
--- NOTE | 2018-10-02 16:02 | Infectious Diseases Prog Note ---
Assessment/Plan Assessment/Plan ASSESSMENT: The patient is a 67-year-old male with, Chronic obstructive pulmonary disease exacerbation CXR: chronic obstructive pulmonary disease Afebrile Normal white blood cells History of chronic obstructive pulmonary disease History of right lower extremity osteomyelitis HTN Malnutrition History of alcohol abuse Seizure disorder Diabetes Coronary artery disease/coronary artery bypass graft PLAN: Doxycycline orally day # 3 /5 Monitor CBC. Monitor BMP. Monitor chest x-ray. Subjective Allergies: Coded Allergies: EGG (Verified Allergy, Unknown, 09/28/18) MEPERIDINE (Verified Allergy, Unknown, 09/28/18) MORPHINE (Verified Allergy, Unknown, 09/28/18) NITROGLYCERIN (Verified Allergy, Unknown, hives, 09/28/18) Subjective no new complain Objective Vital Signs Last 24 Hour Vital Signs Date Time Temp Pulse Resp B/P (MAP) Pulse Ox O2 Delivery O2 Flow Rate FiO2 10/02/18 15:34 97.5 118 22 157/88 (111) 95 10/02/18 12:31 97.7 10/02/18 11:34 97.7 108 22 144/77 (99) 95 10/02/18 09:00 Room Air 10/02/18 08:11 98.2 107 22 165/86 (112) 94 10/02/18 07:28 99 20 99 Room Air 21 10/02/18 07:24 Room Air 21 10/02/18 07:23 96 Room Air 21 10/02/18 07:23 101 20 Room Air 21 10/02/18 07:22 101 20 96 Room Air 21 10/02/18 04:00 97.8 101 18 141/78 (99) 94 10/02/18 00:00 98.4 98 18 124/71 (88) 93 10/01/18 22:34 Room Air 10/01/18 20:13 Room Air 21 10/01/18 20:13 100 18 Room Air 21 10/01/18 20:13 95 Room Air 21 10/01/18 20:00 98.5 100 18 119/68 (85) 91 10/01/18 16:00 98.6 97 18 144/80 (101) 96 Height (Feet): 6 Height (Inches): 1.00 Weight (Pounds): 132 HEENT: normocephalic Respiratory/Chest: no accessory muscle use Cardiovascular: regularly irregular Abdomen: non distended Laboratory Tests Test 10/02/18 05:50 White Blood Count 5.6 K/UL (4.8-10.8) Red Blood Count 4.42 M/UL (4.70-6.10) L Hemoglobin 11.4 G/DL (14.2-18.0) L Hematocrit 35.7 % (42.0-52.0) L Mean Corpuscular Volume 81 FL (80-99) Mean Corpuscular Hemoglobin 25.7 PG (27.0-31.0) L Mean Corpuscular Hemoglobin Concent 31.8 G/DL (32.0-36.0) L Red Cell Distribution Width 15.5 % (11.6-14.8) H Platelet Count 279 K/UL (150-450) Mean Platelet Volume 6.1 FL (6.5-10.1) L Neutrophils (%) (Auto) 43.2 % (45.0-75.0) L Lymphocytes (%) (Auto) 33.9 % (20.0-45.0) Monocytes (%) (Auto) 13.5 % (1.0-10.0) H Eosinophils (%) (Auto) 7.5 % (0.0-3.0) H Basophils (%) (Auto) 1.9 % (0.0-2.0) Sodium Level 136 MMOL/L (136-145) Potassium Level 4.5 MMOL/L (3.5-5.1) Chloride Level 102 MMOL/L (98-107) Carbon Dioxide Level 29 MMOL/L (21-32) Anion Gap 6 mmol/L (5-15) Blood Urea Nitrogen 16 mg/dL (7-18) Creatinine 1.4 MG/DL (0.55-1.30) H Estimat Glomerular Filtration Rate > 60 mL/min (>60) Glucose Level 100 MG/DL (74-106) Calcium Level 8.4 MG/DL (8.5-10.1) L Phosphorus Level 3.3 MG/DL (2.5-4.9) Magnesium Level 1.6 MG/DL (1.8-2.4) L Total Bilirubin 0.2 MG/DL (0.2-1.0) Aspartate Amino Transf (AST/SGOT) 14 U/L (15-37) L Alanine Aminotransferase (ALT/SGPT) 15 U/L (12-78) Alkaline Phosphatase 118 U/L (46-116) H Total Protein 6.5 G/DL (6.4-8.2) Albumin 2.3 G/DL (3.4-5.0) L Globulin 4.2 g/dL Albumin/Globulin Ratio 0.5 (1.0-2.7) L Current Medications Medications (Trade) Dose Ordered Sig/Aminata Route PRN Reason Start Time Stop Time Status Last Admin Dose Admin Acetaminophen (Tylenol) 650 mg Q4H PRN ORAL FEVER (temp >100.5 F) 09/30/18 21:45 10/30/18 21:44 Albuterol/ Ipratropium (Albuterol/ Ipratropium) 3 ml Q4H PRN HHN Shortness of Breath 09/30/18 21:30 10/05/18 21:29 10/02/18 07:21 Aspirin (ASA) 162 mg DAILY ORAL 10/01/18 09:00 10/29/18 08:59 10/02/18 08:48 Doxycycline Monohydrate (Vibramycin) 100 mg EVERY 12 HOURS ORAL 10/01/18 09:00 10/07/18 20:59 10/02/18 08:48 Enalaprilat (Vasotec) 2.5 mg Q6H PRN IV sbp more than 160 09/30/18 21:45 10/30/18 21:44 Heparin Sodium (Porcine) (Heparin 5000 units/ml) 5,000 units EVERY 12 HOURS SUBQ 10/01/18 09:00 10/29/18 08:59 10/02/18 08:58 Hydromorphone HCl (Dilaudid) 2 mg Q3H PRN IVP Severe Pain (Pain Scale 7-10) 09/30/18 21:33 10/06/18 21:32 10/02/18 15:18 Levetiracetam (Keppra) 500 mg DAILY ORAL 10/01/18 09:00 10/29/18 08:59 10/02/18 08:48 Mirtazapine (Remeron) 30 mg BEDTIME ORAL 10/01/18 21:00 10/29/18 20:59 10/01/18 21:33 Ondansetron HCl (Zofran) 4 mg Q6H PRN IVP Nausea & Vomiting 09/30/18 21:45 10/30/18 21:44 10/01/18 10:21 Pantoprazole (Protonix) 40 mg EVERY 12 HOURS ORAL 10/01/18 09:00 10/29/18 20:59 10/02/18 08:48 Polyethylene Glycol (Miralax) 17 gm DAILYPRN PRN ORAL Constipation 09/30/18 21:45 10/30/18 21:44 Sucralfate (Carafate) 1 gm FOUR TIMES A DAY ORAL 10/01/18 09:00 10/29/18 12:59 10/02/18 12:01 Temazepam (Restoril) 15 mg HSPRN PRN ORAL Insomnia 09/30/18 21:45 10/07/18 21:44 Theophylline (Wilfrido-Dur) 100 mg EVERY 12 HOURS ORAL 10/01/18 09:00 10/29/18 08:59 10/02/18 08:48 Reuben Reich MD Oct 02, 2018 16:02
--- NOTE | 2018-10-02 17:03 | Internal Med Progress Note ---
Subjective Physician Name Phil Wright Attending Physician Phil Wright MD Current Medications Medications (Trade) Dose Ordered Sig/Aminata Route PRN Reason Start Time Stop Time Status Last Admin Dose Admin Acetaminophen (Tylenol) 650 mg Q4H PRN ORAL FEVER (temp >100.5 F) 09/30/18 21:45 10/30/18 21:44 Albuterol/ Ipratropium (Albuterol/ Ipratropium) 3 ml Q4H PRN HHN Shortness of Breath 09/30/18 21:30 10/05/18 21:29 10/02/18 16:04 Aspirin (ASA) 162 mg DAILY ORAL 10/01/18 09:00 10/29/18 08:59 10/02/18 08:48 Doxycycline Monohydrate (Vibramycin) 100 mg EVERY 12 HOURS ORAL 10/01/18 09:00 10/07/18 20:59 10/02/18 08:48 Enalaprilat (Vasotec) 2.5 mg Q6H PRN IV sbp more than 160 09/30/18 21:45 10/30/18 21:44 Heparin Sodium (Porcine) (Heparin 5000 units/ml) 5,000 units EVERY 12 HOURS SUBQ 10/01/18 09:00 10/29/18 08:59 10/02/18 08:58 Hydromorphone HCl (Dilaudid) 2 mg Q3H PRN IVP Severe Pain (Pain Scale 7-10) 09/30/18 21:33 10/06/18 21:32 10/02/18 15:18 Levetiracetam (Keppra) 500 mg DAILY ORAL 10/01/18 09:00 10/29/18 08:59 10/02/18 08:48 Magnesium Sulfate 100 ml @ 100 mls/hr ONCE IVPB 10/02/18 16:45 10/02/18 18:45 Mirtazapine (Remeron) 30 mg BEDTIME ORAL 10/01/18 21:00 10/29/18 20:59 10/01/18 21:33 Ondansetron HCl (Zofran) 4 mg Q6H PRN IVP Nausea & Vomiting 09/30/18 21:45 10/30/18 21:44 10/01/18 10:21 Pantoprazole (Protonix) 40 mg EVERY 12 HOURS ORAL 10/01/18 09:00 10/29/18 20:59 10/02/18 08:48 Polyethylene Glycol (Miralax) 17 gm DAILYPRN PRN ORAL Constipation 09/30/18 21:45 10/30/18 21:44 Sucralfate (Carafate) 1 gm FOUR TIMES A DAY ORAL 10/01/18 09:00 10/29/18 12:59 10/02/18 12:01 Temazepam (Restoril) 15 mg HSPRN PRN ORAL Insomnia 09/30/18 21:45 10/07/18 21:44 Theophylline (Wilfrido-Dur) 100 mg EVERY 12 HOURS ORAL 10/01/18 09:00 10/29/18 08:59 10/02/18 08:48 Allergies: Coded Allergies: EGG (Verified Allergy, Unknown, 09/28/18) MEPERIDINE (Verified Allergy, Unknown, 09/28/18) MORPHINE (Verified Allergy, Unknown, 09/28/18) NITROGLYCERIN (Verified Allergy, Unknown, hives, 09/28/18) Subjective awake, alert, responsive, C/O chest pain , No SOB Objective Last Vital Signs Date Time Temp Pulse Resp B/P (MAP) Pulse Ox O2 Delivery O2 Flow Rate FiO2 10/02/18 16:11 99 18 99 Room Air 21 10/02/18 15:48 97.5 10/02/18 15:34 157/88 (111) 09/30/18 09:00 2.0 Laboratory Tests Test 10/02/18 05:50 White Blood Count 5.6 K/UL (4.8-10.8) Red Blood Count 4.42 M/UL (4.70-6.10) L Hemoglobin 11.4 G/DL (14.2-18.0) L Hematocrit 35.7 % (42.0-52.0) L Mean Corpuscular Volume 81 FL (80-99) Mean Corpuscular Hemoglobin 25.7 PG (27.0-31.0) L Mean Corpuscular Hemoglobin Concent 31.8 G/DL (32.0-36.0) L Red Cell Distribution Width 15.5 % (11.6-14.8) H Platelet Count 279 K/UL (150-450) Mean Platelet Volume 6.1 FL (6.5-10.1) L Neutrophils (%) (Auto) 43.2 % (45.0-75.0) L Lymphocytes (%) (Auto) 33.9 % (20.0-45.0) Monocytes (%) (Auto) 13.5 % (1.0-10.0) H Eosinophils (%) (Auto) 7.5 % (0.0-3.0) H Basophils (%) (Auto) 1.9 % (0.0-2.0) Sodium Level 136 MMOL/L (136-145) Potassium Level 4.5 MMOL/L (3.5-5.1) Chloride Level 102 MMOL/L (98-107) Carbon Dioxide Level 29 MMOL/L (21-32) Anion Gap 6 mmol/L (5-15) Blood Urea Nitrogen 16 mg/dL (7-18) Creatinine 1.4 MG/DL (0.55-1.30) H Estimat Glomerular Filtration Rate > 60 mL/min (>60) Glucose Level 100 MG/DL (74-106) Calcium Level 8.4 MG/DL (8.5-10.1) L Phosphorus Level 3.3 MG/DL (2.5-4.9) Magnesium Level 1.6 MG/DL (1.8-2.4) L Total Bilirubin 0.2 MG/DL (0.2-1.0) Aspartate Amino Transf (AST/SGOT) 14 U/L (15-37) L Alanine Aminotransferase (ALT/SGPT) 15 U/L (12-78) Alkaline Phosphatase 118 U/L (46-116) H Total Protein 6.5 G/DL (6.4-8.2) Albumin 2.3 G/DL (3.4-5.0) L Globulin 4.2 g/dL Albumin/Globulin Ratio 0.5 (1.0-2.7) L Intake and Output 10/01/18 10/02/18 19:00 07:00 Intake Total 480 ml 960 ml Output Total 900 ml 900 ml Balance -420 ml 60 ml Intake Oral 480 ml 960 ml Output Urine Total 900 ml 900 ml Objective General: No acute distress, awake and alert HEENT: NCAT, sclera anicteric, PERRL, EOMI. Neck: Supple, no significant jugular venous distention, Lungs: Good inspiratory effort, no Wheeze or Rales. Heart: Regular rate and rhythm, normal S1/S2, no murmurs Abdomen: soft, nontender, nondistended. Normoactive bowel sounds. Extremities: No Cyanosis , clubbing or edema, Right ankle ulceration Neuro: A&O x 3, Able to move all extremities Skin: warm, no rashes Psych: Normal mood and affect Assessment/Plan Assessment/Plan Chronic obstructive pulmonary disease exacerbation CXR: chronic obstructive pulmonary disease Afebrile Normal white blood cells History of chronic obstructive pulmonary disease History of right lower extremity osteomyelitis HTN Malnutrition History of alcohol abuse Seizure disorder Diabetes Coronary artery disease/coronary artery bypass graft PLAN: Abx: Doxycycline Monitor CBC. Monitor BMP. Monitor right ankle x-ray. Phil Wright MD Oct 02, 2018 17:03
[2018-10-02 20:00] VITALS: BP 141/75
--- NOTE | 2018-10-02 21:32 | Progress Note ---
DATE: 10/02/2018 SUBJECTIVE: The patient is still depressed. Today, he stated that he would like to speak to me, then he said he does not feel like talking about what has been bothering him today. He is withdrawn and isolative. He can be very irritable and angry at times. He is having pain medication seeking behavior. MENTAL STATUS EXAMINATION: The patient is alert and oriented times self, place, and situation. Mood is irritable and depressed. Affect is constricted. Congruent with mood. Thought process is concrete. Thought content, no suicidal or homicidal ideation. ASSESSMENT: [place] I Major depressive disorder and anxiety disorder. [place] II Deferred. [place] III As above. PLAN: We will continue the Remeron and left the prescription in the chart for him. Provide the patient with supportive therapy and reality orientation. Rachael Buckley M.D. DR: MANPREET JOB#: [id number] CC:
[2018-10-03] VITALS: BP 123/69
[2018-10-03 04:00] VITALS: BP 115/93
--- NOTE | 2018-10-03 06:52 | Cardiology Progress Note ---
Assessment/Plan Status: stable Assessment/Plan Assessment/Plan Status: stable Assessment/Plan Assessment (1) ACS (acute coronary syndrome) (2) Costochondritis (3) Cellulitis of right leg (4) ATN (acute tubular necrosis) (5) CAD (coronary artery disease) (6) Severe malnutrition (7) Peripheral arterial disease Plan Serial EKG/Troponin Nitro prn chest pain NO indication for stress test at this time Pain control Ranexa Aspirin Plavix Statin EECP outpatient to improve microvascular ischemia Podiatry consult for LE wound - doxycycline, imaging Subjective Subjective No acute events, vitals stable, troponin negative. Pt presents with full thickness wound superior but in close proximity to lateral R malleolus (L)4.5cm x (W)2.5cm Complain of leg pain, wants morphine, vitals stable, Mg low today, tolerating PO , no distress Objective Last 24 Hour Vital Signs Date Time Temp Pulse Resp B/P (MAP) Pulse Ox O2 Delivery O2 Flow Rate FiO2 10/03/18 04:00 97.6 92 19 115/93 (100) 100 10/03/18 00:00 97.9 98 19 123/69 (87) 95 10/02/18 21:00 Room Air 10/02/18 20:09 99 20 Room Air 21 10/02/18 20:09 97 Room Air 21 10/02/18 20:09 Room Air 21 10/02/18 20:00 99.1 112 18 141/75 (97) 96 10/02/18 16:11 99 18 99 Room Air 21 10/02/18 16:04 99 20 97 Room Air 21 10/02/18 15:48 97.5 10/02/18 15:34 97.5 118 22 157/88 (111) 95 10/02/18 11:34 97.7 108 22 144/77 (99) 95 10/02/18 09:00 Room Air 10/02/18 08:11 98.2 107 22 165/86 (112) 94 10/02/18 07:28 99 20 99 Room Air 21 10/02/18 07:24 Room Air 21 10/02/18 07:23 96 Room Air 21 10/02/18 07:23 101 20 Room Air 21 10/02/18 07:22 101 20 96 Room Air 21 General Appearance: no apparent distress, alert, severe distress EENT: normal ENT inspection, TMs normal, pharynx normal Neck: non-tender, normal alignment, supple, normal inspection, no JVD Rhythm: NSR Cardiovascular: normal peripheral pulses, normal rate, regular rhythm Respiratory/Chest: chest wall non-tender, lungs clear, normal breath sounds Abdomen: normal bowel sounds, non tender, soft, no organomegaly, no mass Extremities: normal range of motion, non-tender Neurologic: no motor/sensory deficits Intake and Output 10/02/18 10/03/18 18:59 06:59 Intake Total 840 ml 100 ml Balance 840 ml 100 ml Intake Oral 840 ml IV Total 100 ml # Bowel Movements 1 Adonis Winn MD Oct 03, 2018 06:52
[2018-10-03] MEDS: Albuterol/Ipratropium 3ml neb HHN PRN ×3 (07:30→20:40)
[2018-10-03 07:51] VITALS: BP 154/76
--- NOTE | 2018-10-03 08:09 | Pulmonology Progress Note ---
Assessment/Plan Assessment/Plan ASSESSMENT costochondritis COPD with probable exacerbation coronary artery disease with hx of CABG severe protein calorie malnutrition peripheral vascular disease chronic right lateral ankle superficial ulceration seizure disorder chronic renal insufficiency cluster B personality disorder depression PLAN OF CARE serial troponin negative ; EKG no acute ischemic changes patient was ruled out for acute SD recent cardiac cath at [facility] with pEF recurrent c/o chest pain likely microvascular ischemia per cardio -pt may benefit from EECP to improve microvascular ischemia dual APLT with aspirin and Plavix continue statin and Ranexa ( allergic to nitroglycerin ) per cardio no indication for stress test at this time O2 HHN Empiric abx-per ID recs a/tussive prn CXR with + COPD podiatry eval appreciated wound care as per podiatry recs seizure precaution maintained, Keppra continued, no evidence of seizure while in the hospital hoop cutter recommendations implemented in plan of care , added Ensure monitor renal parameters, lytes, avoid nephrotoxic psychiatry follows patient on Remeron supportive care pain management DVT/GI prophylaxis bowel regimen case discussed and evaluated by supervising physician Subjective Allergies: Coded Allergies: EGG (Verified Allergy, Unknown, 09/28/18) MEPERIDINE (Verified Allergy, Unknown, 09/28/18) MORPHINE (Verified Allergy, Unknown, 09/28/18) NITROGLYCERIN (Verified Allergy, Unknown, hives, 09/28/18) Subjective denies SOB, occasional chest pain, chronic pain R lower leg at the side of chronic ulcer Objective Last 24 Hour Vital Signs Date Time Temp Pulse Resp B/P (MAP) Pulse Ox O2 Delivery O2 Flow Rate FiO2 10/03/18 07:51 97.8 109 22 154/76 (102) 99 10/03/18 07:39 89 18 99 Room Air 21 10/03/18 07:30 92 20 96 Room Air 21 10/03/18 07:30 Room Air 21 10/03/18 07:30 96 Room Air 21 10/03/18 07:30 21 10/03/18 07:30 92 20 Room Air 21 10/03/18 04:00 97.6 92 19 115/93 (100) 100 10/03/18 00:00 97.9 98 19 123/69 (87) 95 10/02/18 21:00 Room Air 10/02/18 20:09 99 20 Room Air 21 10/02/18 20:09 97 Room Air 21 10/02/18 20:09 Room Air 21 10/02/18 20:00 99.1 112 18 141/75 (97) 96 10/02/18 16:11 99 18 99 Room Air 21 10/02/18 16:04 99 20 97 Room Air 21 10/02/18 15:48 97.5 10/02/18 15:34 97.5 118 22 157/88 (111) 95 10/02/18 11:34 97.7 108 22 144/77 (99) 95 10/02/18 09:00 Room Air 10/02/18 08:11 98.2 107 22 165/86 (112) 94 Intake and Output 10/02/18 10/03/18 19:00 07:00 Intake Total 940 ml 650 ml Output Total 1200 ml Balance 940 ml -550 ml Intake Oral 840 ml 650 ml IV Total 100 ml Output Urine Total 1200 ml # Bowel Movements 1 General Appearance: no acute distress, cachetic HEENT: normocephalic, atraumatic, anicteric, mucous membranes moist Respiratory/Chest: no respiratory distress, no accessory muscle use, decreased breath sounds Cardiovascular: normal rate, regular rhythm, no JVD Abdomen: normal bowel sounds, soft, non tender Extremities: no edema, pedal pulses normal Skin: other - R lateral ankle ulcer 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: alert, responsive Musculoskeletal: atrophy - BLE Current Medications Medications (Trade) Dose Ordered Sig/Aminata Route PRN Reason Start Time Stop Time Status Last Admin Dose Admin Acetaminophen (Tylenol) 650 mg Q4H PRN ORAL FEVER (temp >100.5 F) 09/30/18 21:45 10/30/18 21:44 Albuterol/ Ipratropium (Albuterol/ Ipratropium) 3 ml Q4H PRN HHN Shortness of Breath 09/30/18 21:30 10/05/18 21:29 10/03/18 07:30 Aspirin (ASA) 162 mg DAILY ORAL 10/01/18 09:00 10/29/18 08:59 10/02/18 08:48 Doxycycline Monohydrate (Vibramycin) 100 mg EVERY 12 HOURS ORAL 10/01/18 09:00 10/07/18 20:59 10/02/18 20:01 Enalaprilat (Vasotec) 2.5 mg Q6H PRN IV sbp more than 160 09/30/18 21:45 10/30/18 21:44 Heparin Sodium (Porcine) (Heparin 5000 units/ml) 5,000 units EVERY 12 HOURS SUBQ 10/01/18 09:00 10/29/18 08:59 10/02/18 20:05 Hydromorphone HCl (Dilaudid) 2 mg Q3H PRN IVP Severe Pain (Pain Scale 7-10) 09/30/18 21:33 10/06/18 21:32 10/03/18 05:38 Levetiracetam (Keppra) 500 mg DAILY ORAL 10/01/18 09:00 10/29/18 08:59 10/02/18 08:48 Mirtazapine (Remeron) 30 mg BEDTIME ORAL 10/01/18 21:00 10/29/18 20:59 10/02/18 20:01 Ondansetron HCl (Zofran) 4 mg Q6H PRN IVP Nausea & Vomiting 09/30/18 21:45 10/30/18 21:44 10/01/18 10:21 Pantoprazole (Protonix) 40 mg EVERY 12 HOURS ORAL 10/01/18 09:00 10/29/18 20:59 10/02/18 20:01 Polyethylene Glycol (Miralax) 17 gm DAILYPRN PRN ORAL Constipation 09/30/18 21:45 10/30/18 21:44 Sucralfate (Carafate) 1 gm FOUR TIMES A DAY ORAL 10/01/18 09:00 10/29/18 12:59 10/02/18 20:01 Temazepam (Restoril) 15 mg HSPRN PRN ORAL Insomnia 09/30/18 21:45 10/07/18 21:44 Theophylline (Wilfrido-Dur) 100 mg EVERY 12 HOURS ORAL 10/01/18 09:00 10/29/18 08:59 10/02/18 20:05 Kristine Black NP Oct 03, 2018 08:09
[2018-10-03] MEDS: Theophylline ER 100mg ORAL SCH ×2 (09:29→21:01)
[2018-10-03] MEDS: Aspirin Baby 81mg ORAL SCH (09:30)
[2018-10-03] MEDS: Sucralfate 1gm tab ORAL SCH ×4 (09:30→21:01)
[2018-10-03] MEDS: Heparin 5000 units/ml inj SUBQ SCH ×2 (09:36→21:02)
[2018-10-03 11:23] VITALS: BP 108/76
--- NOTE | 2018-10-03 11:50 | Infectious Diseases Prog Note ---
Assessment/Plan Assessment/Plan ASSESSMENT: The patient is a 67-year-old male with, Chronic obstructive pulmonary disease exacerbation CXR: chronic obstructive pulmonary disease Afebrile Normal white blood cells History of chronic obstructive pulmonary disease History of right lower extremity osteomyelitis HTN Malnutrition History of alcohol abuse Seizure disorder Diabetes Coronary artery disease/coronary artery bypass graft PLAN: Doxycycline orally day # 4 /5 Monitor CBC. Monitor BMP. Monitor chest x-ray. Subjective Allergies: Coded Allergies: EGG (Verified Allergy, Unknown, 09/28/18) MEPERIDINE (Verified Allergy, Unknown, 09/28/18) MORPHINE (Verified Allergy, Unknown, 09/28/18) NITROGLYCERIN (Verified Allergy, Unknown, hives, 09/28/18) Subjective afebrile no leukocytosis at RA Objective Vital Signs Last 24 Hour Vital Signs Date Time Temp Pulse Resp B/P (MAP) Pulse Ox O2 Delivery O2 Flow Rate FiO2 10/03/18 11:23 97.8 108 20 108/76 (87) 95 10/03/18 09:57 97.8 10/03/18 09:00 Room Air 10/03/18 07:51 97.8 109 22 154/76 (102) 99 10/03/18 07:39 89 18 99 Room Air 21 10/03/18 07:30 92 20 96 Room Air 21 10/03/18 07:30 Room Air 21 10/03/18 07:30 96 Room Air 21 10/03/18 07:30 21 10/03/18 07:30 92 20 Room Air 21 10/03/18 04:00 97.6 92 19 115/93 (100) 100 10/03/18 00:00 97.9 98 19 123/69 (87) 95 10/02/18 21:00 Room Air 10/02/18 20:09 99 20 Room Air 21 10/02/18 20:09 97 Room Air 21 10/02/18 20:09 Room Air 21 10/02/18 20:00 99.1 112 18 141/75 (97) 96 10/02/18 16:11 99 18 99 Room Air 21 10/02/18 16:04 99 20 97 Room Air 21 10/02/18 15:34 97.5 118 22 157/88 (111) 95 Height (Feet): 6 Height (Inches): 1.00 Weight (Pounds): 132 Objective General Appearance: no acute distress, cachetic HEENT: normocephalic, atraumatic, anicteric, mucous membranes moist Respiratory/Chest: no respiratory distress, no accessory muscle use, decreased breath sounds Cardiovascular: normal rate, regular rhythm, no JVD Abdomen: normal bowel sounds, soft, non tender Extremities: no edema, pedal pulses normal Skin: other - R lateral ankle ulcer 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: alert, responsive Musculoskeletal: atrophy - BLE Current Medications Medications (Trade) Dose Ordered Sig/Aminata Route PRN Reason Start Time Stop Time Status Last Admin Dose Admin Acetaminophen (Tylenol) 650 mg Q4H PRN ORAL FEVER (temp >100.5 F) 09/30/18 21:45 10/30/18 21:44 Albuterol/ Ipratropium (Albuterol/ Ipratropium) 3 ml Q4H PRN HHN Shortness of Breath 09/30/18 21:30 10/05/18 21:29 10/03/18 07:30 Aspirin (ASA) 162 mg DAILY ORAL 10/01/18 09:00 10/29/18 08:59 10/03/18 09:30 Doxycycline Monohydrate (Vibramycin) 100 mg EVERY 12 HOURS ORAL 10/01/18 09:00 10/07/18 20:59 10/03/18 09:30 Enalaprilat (Vasotec) 2.5 mg Q6H PRN IV sbp more than 160 09/30/18 21:45 10/30/18 21:44 Heparin Sodium (Porcine) (Heparin 5000 units/ml) 5,000 units EVERY 12 HOURS SUBQ 10/01/18 09:00 10/29/18 08:59 10/03/18 09:36 Hydromorphone HCl (Dilaudid) 2 mg Q3H PRN IVP Severe Pain (Pain Scale 7-10) 09/30/18 21:33 10/06/18 21:32 10/03/18 09:27 Levetiracetam (Keppra) 500 mg DAILY ORAL 10/01/18 09:00 10/29/18 08:59 10/03/18 09:30 Mirtazapine (Remeron) 30 mg BEDTIME ORAL 10/01/18 21:00 10/29/18 20:59 10/02/18 20:01 Ondansetron HCl (Zofran) 4 mg Q6H PRN IVP Nausea & Vomiting 09/30/18 21:45 10/30/18 21:44 10/01/18 10:21 Pantoprazole (Protonix) 40 mg EVERY 12 HOURS ORAL 10/01/18 09:00 10/29/18 20:59 10/03/18 09:29 Polyethylene Glycol (Miralax) 17 gm DAILYPRN PRN ORAL Constipation 09/30/18 21:45 10/30/18 21:44 Sucralfate (Carafate) 1 gm FOUR TIMES A DAY ORAL 10/01/18 09:00 10/29/18 12:59 10/03/18 09:30 Temazepam (Restoril) 15 mg HSPRN PRN ORAL Insomnia 09/30/18 21:45 10/07/18 21:44 Theophylline (Wilfrido-Dur) 100 mg EVERY 12 HOURS ORAL 10/01/18 09:00 10/29/18 08:59 10/03/18 09:29 Jessica Parry M.D. Oct 03, 2018 11:50
--- NOTE | 2018-10-03 13:54 | General Surgery Progress Note ---
General Surgery-Progress Note Subjective Symptoms: improved, tolerating diet, passing flatus Objective Last 24 Hour Vital Signs Date Time Temp Pulse Resp B/P (MAP) Pulse Ox O2 Delivery O2 Flow Rate FiO2 10/03/18 13:01 97.8 10/03/18 11:23 97.8 108 20 108/76 (87) 95 10/03/18 09:00 Room Air 10/03/18 07:51 97.8 109 22 154/76 (102) 99 10/03/18 07:39 89 18 99 Room Air 21 10/03/18 07:30 92 20 96 Room Air 21 10/03/18 07:30 Room Air 21 10/03/18 07:30 96 Room Air 21 10/03/18 07:30 21 10/03/18 07:30 92 20 Room Air 21 10/03/18 04:00 97.6 92 19 115/93 (100) 100 10/03/18 00:00 97.9 98 19 123/69 (87) 95 10/02/18 21:00 Room Air 10/02/18 20:09 99 20 Room Air 21 10/02/18 20:09 97 Room Air 21 10/02/18 20:09 Room Air 21 10/02/18 20:00 99.1 112 18 141/75 (97) 96 10/02/18 16:11 99 18 99 Room Air 21 10/02/18 16:04 99 20 97 Room Air 21 10/02/18 15:34 97.5 118 22 157/88 (111) 95 I&O Intake and Output 10/02/18 10/03/18 19:00 07:00 Intake Total 940 ml 650 ml Output Total 1200 ml Balance 940 ml -550 ml Intake Oral 840 ml 650 ml IV Total 100 ml Output Urine Total 1200 ml # Bowel Movements 1 Wound: dry, intact Drains: none Cardiovascular: RSR Respiratory: clear Abdomen: soft, flat, non-tender, present bowel sounds Extremities: no edema, no tenderness, other Plan Problems: (1) Atypical chest pain Assessment & Plan: cardiac work up negative patient well known to me prior recommended him to seek cardiac surgery eval as an outpatient. he did not again noted sternal wires at skin level wound chronic wounds from foreign body. recommend sternal wire removal. [place] [facility] and can be done electively referral to cardiac surgery given to patient. I had spoken to a cardiac surgery who is willing to see patient and remove wires electively. office info and contact info given directly to patient for referral. he states he will f/u as outpatient. okay to d/c from surgical standpoint thank you for this consultation. Ugo Simms Oct 03, 2018 13:54
[2018-10-03 15:59] VITALS: BP 142/86
--- NOTE | 2018-10-03 18:44 | Internal Med Progress Note ---
Subjective Date of Service: Oct 03, 2018 Physician Name Reyna,Shantanu Attending Physician Phil Wright MD Current Medications Medications (Trade) Dose Ordered Sig/Aminata Route PRN Reason Start Time Stop Time Status Last Admin Dose Admin Acetaminophen (Tylenol) 650 mg Q4H PRN ORAL FEVER (temp >100.5 F) 09/30/18 21:45 10/30/18 21:44 Albuterol/ Ipratropium (Albuterol/ Ipratropium) 3 ml Q4H PRN HHN Shortness of Breath 09/30/18 21:30 10/05/18 21:29 10/03/18 13:57 Aspirin (ASA) 162 mg DAILY ORAL 10/01/18 09:00 10/29/18 08:59 10/03/18 09:30 Doxycycline Monohydrate (Vibramycin) 100 mg EVERY 12 HOURS ORAL 10/01/18 09:00 10/07/18 20:59 10/03/18 09:30 Enalaprilat (Vasotec) 2.5 mg Q6H PRN IV sbp more than 160 09/30/18 21:45 10/30/18 21:44 Heparin Sodium (Porcine) (Heparin 5000 units/ml) 5,000 units EVERY 12 HOURS SUBQ 10/01/18 09:00 10/29/18 08:59 10/03/18 09:36 Hydromorphone HCl (Dilaudid) 2 mg Q3H PRN IVP Severe Pain (Pain Scale 7-10) 09/30/18 21:33 10/06/18 21:32 10/03/18 15:48 Levetiracetam (Keppra) 500 mg DAILY ORAL 10/01/18 09:00 10/29/18 08:59 10/03/18 09:30 Mirtazapine (Remeron) 30 mg BEDTIME ORAL 10/01/18 21:00 10/29/18 20:59 10/02/18 20:01 Ondansetron HCl (Zofran) 4 mg Q6H PRN IVP Nausea & Vomiting 09/30/18 21:45 10/30/18 21:44 10/01/18 10:21 Pantoprazole (Protonix) 40 mg EVERY 12 HOURS ORAL 10/01/18 09:00 10/29/18 20:59 10/03/18 09:29 Polyethylene Glycol (Miralax) 17 gm DAILYPRN PRN ORAL Constipation 09/30/18 21:45 10/30/18 21:44 Sucralfate (Carafate) 1 gm FOUR TIMES A DAY ORAL 10/01/18 09:00 10/29/18 12:59 10/03/18 17:27 Temazepam (Restoril) 15 mg HSPRN PRN ORAL Insomnia 09/30/18 21:45 10/07/18 21:44 Theophylline (Wilfrido-Dur) 100 mg EVERY 12 HOURS ORAL 10/01/18 09:00 10/29/18 08:59 10/03/18 09:29 Allergies: Coded Allergies: EGG (Verified Allergy, Unknown, 09/28/18) MEPERIDINE (Verified Allergy, Unknown, 09/28/18) MORPHINE (Verified Allergy, Unknown, 09/28/18) NITROGLYCERIN (Verified Allergy, Unknown, hives, 09/28/18) ROS Limited/Unobtainable: No Constitutional: Reports: no symptoms HEENT: Reports: no symptoms Cardiovascular: Reports: chest pain Respiratory: Reports: no symptoms Gastrointestinal/Abdominal: Reports: no symptoms Genitourinary: Reports: no symptoms 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: Reports: no symptoms Subjective 67 YO M admitted with chief complaint of chest pain. "Why are you here? I thought you weren't my doctor anymore." Cover for Int Med-Dr Wright Objective Last Vital Signs Date Time Temp Pulse Resp B/P (MAP) Pulse Ox O2 Delivery O2 Flow Rate FiO2 10/03/18 16:18 98.1 10/03/18 15:59 108 20 142/86 (104) 94 10/03/18 13:58 21 10/03/18 13:58 Room Air 09/30/18 09:00 2.0 Intake and Output 10/02/18 10/03/18 19:00 07:00 Intake Total 940 ml 650 ml Output Total 1200 ml Balance 940 ml -550 ml Intake Oral 840 ml 650 ml IV Total 100 ml Output Urine Total 1200 ml # Bowel Movements 1 Objective General Appearance: WD/WN, no apparent distress, alert, thin EENT: PERRL/EOMI, normal ENT inspection Neck: non-tender, normal alignment, supple, normal inspection Cardiovascular: normal peripheral pulses, normal rate, regular rhythm, no gallop/murmur, no JVD Respiratory/Chest: chest wall non-tender, lungs clear, normal breath sounds, no respiratory distress, no accessory muscle use Abdomen: normal bowel sounds, non tender, soft, no organomegaly, no mass, abnormal bowel sounds Extremities: normal range of motion, non-tender Neurologic: raw silk grader II-XII grossly normal, no motor/sensory deficits Skin: normal pigmentation, warm/dry Assessment/Plan Problem List: (1) Chest pain (2) Seizure disorder Assessment & Plan: Continue Keppra (3) CAD (coronary artery disease) Assessment & Plan: Continue aspirin. Not on plavix currently. See cardiology note. (4) COPD exacerbation Assessment & Plan: see pulmonary note. (5) HTN (hypertension) Assessment & Plan: Continue cardizem and vasotec (6) Irritable behavior (7) Opiate dependence, continuous (8) Borderline personality disorder Assessment & Plan: See psych note. Threatening to kill both Dr Wright and Shantanu York MD Oct 03, 2018 18:44
[2018-10-03 20:00] VITALS: BP 156/78
[2018-10-04] VITALS: BP 139/78
[2018-10-04 04:00] VITALS: BP 135/66
[2018-10-04] MEDS: Albuterol/Ipratropium 3ml neb HHN PRN ×2 (07:37→16:39)
--- NOTE | 2018-10-04 07:51 | Cardiology Progress Note ---
Assessment/Plan Status: stable Assessment/Plan Assessment/Plan Status: stable Assessment/Plan Assessment (1) ACS (acute coronary syndrome) (2) Costochondritis (3) Cellulitis of right leg (4) ATN (acute tubular necrosis) (5) CAD (coronary artery disease) (6) Severe malnutrition (7) Peripheral arterial disease Plan Serial EKG/Troponin Nitro prn chest pain NO indication for stress test at this time Pain control Ranexa Aspirin Plavix Statin EECP outpatient to improve microvascular ischemia Podiatry consult for LE wound - doxycycline, imaging Outpatient referral made for sternal wire removal Subjective Cardiovascular: Reports: no symptoms Respiratory: Reports: no symptoms Gastrointestinal/Abdominal: Reports: no symptoms Genitourinary: Reports: no symptoms Subjective No acute events, vitals stable, troponin negative. Pt presents with full thickness wound superior but in close proximity to lateral R malleolus (L)4.5cm x (W)2.5cm Complain of leg pain, wants morphine, vitals stable, tolerating PO, no distress. Surgery consulted for sternal wire removal, to be done as outpatient. Objective Last 24 Hour Vital Signs Date Time Temp Pulse Resp B/P (MAP) Pulse Ox O2 Delivery O2 Flow Rate FiO2 10/04/18 07:37 84 20 98 Room Air 10/04/18 07:36 Room Air 21 10/04/18 07:36 89 18 Room Air 10/04/18 07:36 97 Room Air 21 10/04/18 07:32 36 10/04/18 07:32 97 18 89 Room Air 10/04/18 04:00 97.5 89 18 135/66 (89) 95 10/04/18 00:00 97.4 101 18 139/78 (98) 96 10/03/18 21:00 Room Air 10/03/18 20:49 21 10/03/18 20:49 97 18 98 Room Air 21 10/03/18 20:40 95 18 96 Room Air 21 10/03/18 20:00 98.9 102 18 156/78 (104) 97 10/03/18 19:22 Room Air 21 10/03/18 19:22 95 20 Room Air 21 10/03/18 19:22 96 Room Air 21 10/03/18 16:18 98.1 10/03/18 15:59 98.1 108 20 142/86 (104) 94 10/03/18 13:58 21 10/03/18 13:58 98 16 97 Room Air 21 10/03/18 11:23 97.8 108 20 108/76 (87) 95 10/03/18 09:00 Room Air 10/03/18 07:51 97.8 109 22 154/76 (102) 99 General Appearance: no apparent distress, alert EENT: PERRL/EOMI, normal ENT inspection, TMs normal, pharynx normal Neck: non-tender, normal alignment, supple, normal inspection, no JVD Rhythm: NSR Cardiovascular: normal peripheral pulses, normal rate, regular rhythm Respiratory/Chest: chest wall non-tender, lungs clear, normal breath sounds, no respiratory distress, no accessory muscle use Abdomen: normal bowel sounds, non tender, soft Extremities: normal range of motion, non-tender, normal inspection 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
[2018-10-04 08:00] VITALS: BP 131/68
[2018-10-04] MEDS: Sucralfate 1gm tab ORAL SCH ×4 (08:23→20:29)
[2018-10-04] MEDS: Theophylline ER 100mg ORAL SCH ×2 (08:24→20:29)
[2018-10-04] MEDS: Aspirin Baby 81mg ORAL SCH (08:24)
[2018-10-04] MEDS: Heparin 5000 units/ml inj SUBQ SCH ×3 (08:29→20:34)
--- NOTE | 2018-10-04 09:14 | Pulmonology Progress Note ---
Assessment/Plan Assessment/Plan ASSESSMENT costochondritis coronary artery disease with hx of CABG COPD with probable exacerbation severe protein calorie malnutrition peripheral vascular disease chronic right lateral ankle superficial ulceration seizure disorder chronic renal insufficiency cluster B personality disorder depression PLAN OF CARE serial troponin negative ; EKG no acute ischemic changes patient was ruled out for acute NE recent cardiac cath at [facility] with pEF recurrent c/o chest pain likely microvascular ischemia per cardio -pt may benefit from EECP to improve microvascular ischemia dual APLT with aspirin and Plavix continue statin and Ranexa ( allergic to nitroglycerin ) per cardio no indication for stress test at this time O2 HHN Empiric abx-per ID recs a/tussive prn CXR with + COPD podiatry eval appreciated wound care as per podiatry recs seizure precaution maintained, Keppra continued, no evidence of seizure while in the hospital manager organizational recommendations implemented in plan of care , added Ensure monitor renal parameters, lytes, avoid nephrotoxic psychiatry follows patient on Remeron supportive care pain management DVT/GI prophylaxis bowel regimen case discussed and evaluated by supervising physician Subjective Allergies: Coded Allergies: EGG (Verified Allergy, Unknown, 09/28/18) MEPERIDINE (Verified Allergy, Unknown, 09/28/18) MORPHINE (Verified Allergy, Unknown, 09/28/18) NITROGLYCERIN (Verified Allergy, Unknown, hives, 09/28/18) Subjective denies SOB, occasional chest pain, chronic pain R lower leg at the side of chronic ulcer seen by mental health therapist ,v Objective Last 24 Hour Vital Signs Date Time Temp Pulse Resp B/P (MAP) Pulse Ox O2 Delivery O2 Flow Rate FiO2 10/04/18 08:53 97.7 10/04/18 08:00 97.7 91 18 131/68 (89) 96 10/04/18 07:37 84 20 98 Room Air 21 10/04/18 07:36 Room Air 21 10/04/18 07:36 89 18 Room Air 21 10/04/18 07:36 97 Room Air 21 10/04/18 07:32 36 10/04/18 07:32 97 18 89 Room Air 21 10/04/18 04:00 97.5 89 18 135/66 (89) 95 10/04/18 00:00 97.4 101 18 139/78 (98) 96 10/03/18 21:00 Room Air 10/03/18 20:49 21 10/03/18 20:49 97 18 98 Room Air 21 10/03/18 20:40 95 18 96 Room Air 21 10/03/18 20:00 98.9 102 18 156/78 (104) 97 10/03/18 19:22 Room Air 21 10/03/18 19:22 95 20 Room Air 21 10/03/18 19:22 96 Room Air 21 10/03/18 15:59 98.1 108 20 142/86 (104) 94 10/03/18 13:58 21 10/03/18 13:58 98 16 97 Room Air 21 10/03/18 11:23 97.8 108 20 108/76 (87) 95 Intake and Output 10/03/18 10/04/18 18:59 06:59 Intake Total 840 ml 500 ml Output Total 1200 ml Balance 840 ml -700 ml Intake Oral 840 ml 500 ml Output Urine Total 1200 ml # Voids 2 Objective General Appearance: no acute distress, cachetic HEENT: normocephalic, atraumatic, anicteric, mucous membranes moist Respiratory/Chest: no respiratory distress, no accessory muscle use, decreased breath sounds Cardiovascular: normal rate, regular rhythm, no JVD Abdomen: normal bowel sounds, soft, non tender Extremities: no edema, pedal pulses normal Skin: other - R lateral ankle ulcer 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: alert, responsive Musculoskeletal: atrophy - BLE Current Medications Medications (Trade) Dose Ordered Sig/Aminata Route PRN Reason Start Time Stop Time Status Last Admin Dose Admin Acetaminophen (Tylenol) 650 mg Q4H PRN ORAL FEVER (temp >100.5 F) 09/30/18 21:45 10/30/18 21:44 Albuterol/ Ipratropium (Albuterol/ Ipratropium) 3 ml Q4H PRN HHN Shortness of Breath 09/30/18 21:30 10/05/18 21:29 10/04/18 07:37 Aspirin (ASA) 162 mg DAILY ORAL 10/01/18 09:00 10/29/18 08:59 10/04/18 08:24 Doxycycline Monohydrate (Vibramycin) 100 mg EVERY 12 HOURS ORAL 10/01/18 09:00 10/07/18 20:59 10/04/18 08:23 Enalaprilat (Vasotec) 2.5 mg Q6H PRN IV sbp more than 160 09/30/18 21:45 10/30/18 21:44 Heparin Sodium (Porcine) (Heparin 5000 units/ml) 5,000 units EVERY 12 HOURS SUBQ 10/01/18 09:00 10/29/18 08:59 10/04/18 08:29 Hydromorphone HCl (Dilaudid) 2 mg Q3H PRN IVP Severe Pain (Pain Scale 7-10) 09/30/18 21:33 10/06/18 21:32 10/04/18 08:23 Levetiracetam (Keppra) 500 mg DAILY ORAL 10/01/18 09:00 10/29/18 08:59 10/04/18 08:24 Mirtazapine (Remeron) 30 mg BEDTIME ORAL 10/01/18 21:00 10/29/18 20:59 10/03/18 21:02 Ondansetron HCl (Zofran) 4 mg Q6H PRN IVP Nausea & Vomiting 09/30/18 21:45 10/30/18 21:44 10/01/18 10:21 Pantoprazole (Protonix) 40 mg EVERY 12 HOURS ORAL 10/01/18 09:00 10/29/18 20:59 10/04/18 08:24 Polyethylene Glycol (Miralax) 17 gm DAILYPRN PRN ORAL Constipation 09/30/18 21:45 10/30/18 21:44 Sucralfate (Carafate) 1 gm FOUR TIMES A DAY ORAL 10/01/18 09:00 10/29/18 12:59 10/04/18 08:23 Temazepam (Restoril) 15 mg HSPRN PRN ORAL Insomnia 09/30/18 21:45 10/07/18 21:44 Theophylline (Wilfrido-Dur) 100 mg EVERY 12 HOURS ORAL 10/01/18 09:00 10/29/18 08:59 10/04/18 08:24 Kristine Black ADMISSIONS RECRUITER Oct 04, 2018 09:14
[2018-10-04 11:45] VITALS: BP 124/80
--- NOTE | 2018-10-04 12:37 | Podiatric Progress Note ---
Assessment/Plan Patient Benjamin Ring is a 67 year old male who was admitted on Sep 28, 2018 at 22:55 with Assessment/Plan O: Focused RLE Exam: Superficial Ulceration noted dorso-lateral ankle. Wound measurements approx 3.0cm x 4.0 cm x 0.1cm. No active purulence noted to wound. Temp differential WNL. Pulses DP/PT +1/4. (+) POP rajwinder-wound margins. Assessment/Plan 1) Chronic Right Lateral Ankle superficial ulceration. 2) Peripheral Vascular disease RLE. 3) Hx of CABG 4) ESRD - Pt seen and evaluated. - Discuss findings with patient. - ESR, CRP pending. - Right ankle XR completed, awaiting official report. - Recommend R ankle MRI w/o contrast if no C/I present. - Recommend Arterial U/S RLE. - Cont daily wound care: apply xeroform, 4 x 4 gauze, kerlix and ABD pad. - RLE ankle ulceration appears to be stable. No gross clinical acute SOI. - At this time, no surgical intervention warranted. Will await laboratory and imaging studies. - If MRI and XR negative for any underlying OM or deep ST infection, pt will can be managed with local wound care to R ankle. - Pod will cont to monitor. Subjective Allergies: Coded Allergies: EGG (Verified Allergy, Unknown, 09/28/18) MEPERIDINE (Verified Allergy, Unknown, 09/28/18) MORPHINE (Verified Allergy, Unknown, 09/28/18) NITROGLYCERIN (Verified Allergy, Unknown, hives, 09/28/18) Subjective Pt seen bedside with nursing staff. Confirms keeping his dressing C/D/I to R ankle. Denies any recent acute SOI. Relates moderate pain. Denies any new pedal complaints. Objective Exam Last 24 Hour Vital Signs Date Time Temp Pulse Resp B/P (MAP) Pulse Ox O2 Delivery O2 Flow Rate FiO2 10/04/18 11:45 98.6 96 20 124/80 (95) 98 10/04/18 09:00 Room Air 10/04/18 08:53 97.7 10/04/18 08:00 97.7 91 18 131/68 (89) 96 10/04/18 07:37 84 20 98 Room Air 21 10/04/18 07:36 Room Air 21 10/04/18 07:36 89 18 Room Air 21 10/04/18 07:36 97 Room Air 21 10/04/18 07:32 36 10/04/18 07:32 97 18 89 Room Air 21 10/04/18 04:00 97.5 89 18 135/66 (89) 95 10/04/18 00:00 97.4 101 18 139/78 (98) 96 10/03/18 21:00 Room Air 10/03/18 20:49 21 10/03/18 20:49 97 18 98 Room Air 21 10/03/18 20:40 95 18 96 Room Air 21 10/03/18 20:00 98.9 102 18 156/78 (104) 97 10/03/18 19:22 Room Air 21 10/03/18 19:22 95 20 Room Air 21 10/03/18 19:22 96 Room Air 21 10/03/18 15:59 98.1 108 20 142/86 (104) 94 10/03/18 13:58 21 10/03/18 13:58 98 16 97 Room Air Dermatological Dermatological Narrative O: Focused RLE Exam: Superficial Ulceration noted dorso-lateral ankle. Wound measurements approx 3.0cm x 4.0 cm x 0.1cm. No active purulence noted to wound. Temp differential WNL. Pulses DP/PT +1/4. (+) POP rajwinder-wound margins. Torres Stephens DPM Oct 04, 2018 12:37
[2018-10-04] MEDS ORDERED: Gadavist 7.5mMol/7.5ml vial IV PRN (12:45)
[2018-10-04 15:55] VITALS: BP 122/79
--- NOTE | 2018-10-04 16:26 | Internal Med Progress Note ---
Subjective Date of Service: Oct 04, 2018 Physician Name Shantanu Reyna Attending Physician Phil Wright MD Current Medications Medications (Trade) Dose Ordered Sig/Aminata Route PRN Reason Start Time Stop Time Status Last Admin Dose Admin Acetaminophen (Tylenol) 650 mg Q4H PRN ORAL FEVER (temp >100.5 F) 09/30/18 21:45 10/30/18 21:44 Albuterol/ Ipratropium (Albuterol/ Ipratropium) 3 ml Q4H PRN HHN Shortness of Breath 09/30/18 21:30 10/05/18 21:29 10/04/18 07:37 Aspirin (ASA) 162 mg DAILY ORAL 10/01/18 09:00 10/29/18 08:59 10/04/18 08:24 Doxycycline Monohydrate (Vibramycin) 100 mg EVERY 12 HOURS ORAL 10/01/18 09:00 10/07/18 20:59 10/04/18 08:23 Enalaprilat (Vasotec) 2.5 mg Q6H PRN IV sbp more than 160 09/30/18 21:45 10/30/18 21:44 Gadobutrol (Gadavist) 7.5 mmol NOW PRN IV Radiology Procedure 10/04/18 12:45 10/08/18 12:34 Heparin Sodium (Porcine) (Heparin 5000 units/ml) 5,000 units EVERY 12 HOURS SUBQ 10/01/18 09:00 10/29/18 08:59 10/04/18 08:29 Hydromorphone HCl (Dilaudid) 2 mg Q3H PRN IVP Severe Pain (Pain Scale 7-10) 09/30/18 21:33 10/06/18 21:32 10/04/18 15:20 Levetiracetam (Keppra) 500 mg DAILY ORAL 10/01/18 09:00 10/29/18 08:59 10/04/18 08:24 Mirtazapine (Remeron) 30 mg BEDTIME ORAL 10/01/18 21:00 10/29/18 20:59 10/03/18 21:02 Ondansetron HCl (Zofran) 4 mg Q6H PRN IVP Nausea & Vomiting 09/30/18 21:45 10/30/18 21:44 10/01/18 10:21 Pantoprazole (Protonix) 40 mg EVERY 12 HOURS ORAL 10/01/18 09:00 10/29/18 20:59 10/04/18 08:24 Polyethylene Glycol (Miralax) 17 gm DAILYPRN PRN ORAL Constipation 09/30/18 21:45 10/30/18 21:44 Sucralfate (Carafate) 1 gm FOUR TIMES A DAY ORAL 10/01/18 09:00 10/29/18 12:59 10/04/18 12:07 Temazepam (Restoril) 15 mg HSPRN PRN ORAL Insomnia 09/30/18 21:45 10/07/18 21:44 Theophylline (Wilfrido-Dur) 100 mg EVERY 12 HOURS ORAL 10/01/18 09:00 10/29/18 08:59 10/04/18 08:24 Allergies: Coded Allergies: EGG (Verified Allergy, Unknown, 09/28/18) MEPERIDINE (Verified Allergy, Unknown, 09/28/18) MORPHINE (Verified Allergy, Unknown, 09/28/18) NITROGLYCERIN (Verified Allergy, Unknown, hives, 09/28/18) ROS Limited/Unobtainable: No Constitutional: Reports: no symptoms HEENT: Reports: no symptoms Cardiovascular: Reports: chest pain Respiratory: Reports: no symptoms Gastrointestinal/Abdominal: Reports: no symptoms Genitourinary: Reports: no symptoms 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: Reports: no symptoms Subjective 67 YO M admitted with chief complaint of chest pain. "Why are you here? I thought you weren't my doctor anymore." Cover for Int Med-Dr Wright Objective Last Vital Signs Date Time Temp Pulse Resp B/P (MAP) Pulse Ox O2 Delivery O2 Flow Rate FiO2 10/04/18 15:55 98.3 97 20 122/79 (93) 99 10/04/18 09:00 Room Air 10/04/18 07:37 21 09/30/18 09:00 2.0 Laboratory Tests Test 10/04/18 12:45 Erythrocyte Sedimentation Rate 41 MM/HR (0-20) H C-Reactive Protein, Quantitative 1.5 mg/dL (0.00-0.90) H Intake and Output 10/03/18 10/04/18 19:00 07:00 Intake Total 840 ml 500 ml Output Total 1200 ml Balance 840 ml -700 ml Intake Oral 840 ml 500 ml Output Urine Total 1200 ml # Voids 2 Objective General Appearance: WD/WN, no apparent distress, alert, thin EENT: PERRL/EOMI, normal ENT inspection Neck: non-tender, normal alignment, supple, normal inspection Cardiovascular: normal peripheral pulses, normal rate, regular rhythm, no gallop/murmur, no JVD Respiratory/Chest: chest wall non-tender, lungs clear, normal breath sounds, no respiratory distress, no accessory muscle use Abdomen: normal bowel sounds, non tender, soft, no organomegaly, no mass, abnormal bowel sounds Extremities: normal range of motion, non-tender 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 Not on plavix currently. See cardiology note. (4) COPD exacerbation Assessment & Plan: see pulmonary note. (5) HTN (hypertension) Assessment & Plan: Continue cardizem and vasotec (6) Irritable behavior (7) Opiate dependence, continuous (8) Borderline personality disorder Assessment & Plan: See psych note. Threatening to kill both Dr Wrihgt and Dr Reyna Status: Shantanu Rogers MD Oct 04, 2018 16:26
--- NOTE | 2018-10-04 18:09 | General Surgery Progress Note ---
General Surgery-Progress Note Subjective Additional Comments no acute events. comfortable. still with pain from wires at wounds. wounds chronic Objective Last 24 Hour Vital Signs Date Time Temp Pulse Resp B/P (MAP) Pulse Ox O2 Delivery O2 Flow Rate FiO2 10/04/18 16:39 82 18 98 Room Air 21 10/04/18 16:32 89 18 95 Room Air 21 10/04/18 16:32 36 10/04/18 15:55 98.3 97 20 122/79 (93) 99 10/04/18 15:50 98.6 10/04/18 11:45 98.6 96 20 124/80 (95) 98 10/04/18 09:00 Room Air 10/04/18 08:00 97.7 91 18 131/68 (89) 96 10/04/18 07:37 84 20 98 Room Air 21 10/04/18 07:36 Room Air 21 10/04/18 07:36 89 18 Room Air 21 10/04/18 07:36 97 Room Air 21 10/04/18 07:32 36 10/04/18 07:32 97 18 89 Room Air 21 10/04/18 04:00 97.5 89 18 135/66 (89) 95 10/04/18 00:00 97.4 101 18 139/78 (98) 96 10/03/18 21:00 Room Air 10/03/18 20:49 21 10/03/18 20:49 97 18 98 Room Air 21 10/03/18 20:40 95 18 96 Room Air 21 10/03/18 20:00 98.9 102 18 156/78 (104) 97 10/03/18 19:22 Room Air 21 10/03/18 19:22 95 20 Room Air 21 10/03/18 19:22 96 Room Air 21 I&O Intake and Output 10/03/18 10/04/18 19:00 07:00 Intake Total 840 ml 500 ml Output Total 1200 ml Balance 840 ml -700 ml Intake Oral 840 ml 500 ml Output Urine Total 1200 ml # Voids 2 Dressing: dry Wound: dry Drains: none Cardiovascular: RSR Respiratory: clear Abdomen: soft, flat, non-tender, present bowel sounds Extremities: other Laboratory Tests Test 10/04/18 12:45 Erythrocyte Sedimentation Rate 41 MM/HR (0-20) H C-Reactive Protein, Quantitative 1.5 mg/dL (0.00-0.90) H Plan Problems: (1) Atypical chest pain Assessment & Plan: cardiac work up negative patient well known to me prior recommended him to seek cardiac surgery eval as an outpatient. he did not again noted sternal wires at skin level wound chronic wounds from foreign body. recommend sternal wire removal. unfortunately cannot be done at [facility] currently and can be done electively referral to cardiac surgery given to patient. I had spoken to a cardiac surgery who is willing to see patient and remove wires electively. office info and contact info given directly to patient for referral. he states he will f/u as outpatient. okay to d/c from surgical standpoint thank you for this consultation. Ugo Simms Oct 04, 2018 18:09
[2018-10-04 20:44] VITALS: BP 140/76
[2018-10-05] VITALS: BP 142/69
[2018-10-05 04:54] VITALS: BP 142/71
[2018-10-05] MEDS: Albuterol/Ipratropium 3ml neb HHN PRN (07:42)
[2018-10-05] MEDS: Heparin 5000 units/ml inj SUBQ SCH ×2 (09:29→20:52)
[2018-10-05] MEDS: Sucralfate 1gm tab ORAL SCH ×4 (09:29→20:50)
[2018-10-05] MEDS: Aspirin Baby 81mg ORAL SCH (09:32)
[2018-10-05] MEDS: Theophylline ER 100mg ORAL SCH ×2 (09:34→20:50)
[2018-10-05 10:00] VITALS: BP 146/87
--- NOTE | 2018-10-05 11:19 | General Surgery Progress Note ---
General Surgery-Progress Note Subjective Symptoms: improved, pain same, tolerating diet, passing flatus Objective Last 24 Hour Vital Signs Date Time Temp Pulse Resp B/P (MAP) Pulse Ox O2 Delivery O2 Flow Rate FiO2 10/05/18 10:00 98.1 99 18 146/87 (106) 95 10/05/18 09:00 Room Air 10/05/18 07:43 79 20 98 Room Air 21 10/05/18 07:42 Room Air 21 10/05/18 07:42 97 Room Air 21 10/05/18 07:42 88 20 Room Air 21 10/05/18 07:35 78 20 97 Room Air 21 10/05/18 07:35 36 10/05/18 07:00 97.7 10/05/18 04:54 97.7 89 18 142/71 (94) 98 10/05/18 00:00 97.8 90 18 142/69 (93) 96 10/04/18 20:44 98.0 101 19 140/76 (97) 98 10/04/18 20:44 Room Air 10/04/18 19:30 96 Room Air 21 10/04/18 19:30 Room Air 21 10/04/18 19:30 92 22 Room Air 10/04/18 16:39 82 18 98 Room Air 21 10/04/18 16:32 89 18 95 Room Air 21 10/04/18 16:32 36 10/04/18 15:55 98.3 97 20 122/79 (93) 99 10/04/18 11:45 98.6 96 20 124/80 (95) 98 I&O Intake and Output 10/04/18 10/05/18 18:59 06:59 Intake Total 1200 ml 360 ml Output Total 400 ml Balance 1200 ml -40 ml Intake Oral 1200 ml 360 ml Output Urine Total 400 ml # Voids 4 Wound: dry Drains: none Cardiovascular: RSR Respiratory: clear Abdomen: soft, flat, non-tender, present bowel sounds Extremities: other Laboratory Tests Test 10/04/18 12:45 Erythrocyte Sedimentation Rate 41 MM/HR (0-20) H C-Reactive Protein, Quantitative 1.5 mg/dL (0.00-0.90) H Plan Problems: (1) Atypical chest pain Assessment & Plan: cardiac work up negative patient well known to me prior recommended him to seek cardiac surgery eval as an outpatient. he did not again noted sternal wires at skin level wound chronic wounds from foreign body. recommend sternal wire removal. unfortunately cannot be done at [facility] currently and can be done electively referral to cardiac surgery given to patient. I had spoken to a cardiac surgery who is willing to see patient and remove wires electively. office info and contact info given directly to patient for referral. he states he will f/u as outpatient. okay to d/c from surgical standpoint thank you for this consultation. Ugo Simms Oct 05, 2018 11:19
[2018-10-05 12:00] VITALS: BP 142/75
--- NOTE | 2018-10-05 13:26 | Podiatric Progress Note ---
Assessment/Plan Patient Benjamin Ring is a 67 year old male who was admitted on Sep 28, 2018 at 22:55 with Assessment/Plan Assessment/Plan 1) Chronic Right Lateral Ankle superficial ulceration. 2) Peripheral Vascular disease RLE. 3) Hx of CABG 4) ESRD - Pt seen and evaluated. - Discuss findings with patient. - ESR 41 - CRP 1.5 - WBC 5.6 - Right ankle XR completed, awaiting official report. - Recommend R ankle MRI w/o contrast if no C/I present. Pt complete today. - Ordered Arterial U/S RLE. If abnormal result recommend vasc consult. - Cont daily wound care: apply xeroform, 4 x 4 gauze, kerlix and ABD pad. - RLE ankle ulceration appears to be stable. No gross clinical acute SOI. - At this time, no surgical intervention warranted. Will await laboratory and imaging studies. - If MRI and XR negative for any underlying OM or deep ST infection, pt will can be managed with local wound care to R ankle. - Pod will cont to monitor. Subjective Allergies: Coded Allergies: EGG (Verified Allergy, Unknown, 09/28/18) MEPERIDINE (Verified Allergy, Unknown, 09/28/18) MORPHINE (Verified Allergy, Unknown, 09/28/18) NITROGLYCERIN (Verified Allergy, Unknown, hives, 09/28/18) Subjective Pt seen bedside this afternoon with nursing staff. Pt resting at bedside with his brother. Confirms keeping dressing C/D/I. Relates minimal pain to R ankle. Per nursing patient is going to MRI study today. Objective Exam Last 24 Hour Vital Signs Date Time Temp Pulse Resp B/P (MAP) Pulse Ox O2 Delivery O2 Flow Rate FiO2 10/05/18 10:00 98.1 99 18 146/87 (106) 95 10/05/18 09:00 Room Air 10/05/18 07:43 79 20 98 Room Air 21 10/05/18 07:42 Room Air 21 10/05/18 07:42 97 Room Air 21 10/05/18 07:42 88 20 Room Air 21 10/05/18 07:35 78 20 97 Room Air 21 10/05/18 07:35 36 10/05/18 07:00 97.7 10/05/18 04:54 97.7 89 18 142/71 (94) 98 10/05/18 00:00 97.8 90 18 142/69 (93) 96 10/04/18 20:44 98.0 101 19 140/76 (97) 98 10/04/18 20:44 Room Air 10/04/18 19:30 96 Room Air 21 10/04/18 19:30 Room Air 21 10/04/18 19:30 92 22 Room Air 21 10/04/18 16:39 82 18 98 Room Air 21 10/04/18 16:32 89 18 95 Room Air 10/04/18 16:32 36 10/04/18 15:55 98.3 97 20 122/79 (93) 99 Dermatological Dermatological Narrative O: Focused RLE Exam: Superficial Ulceration noted dorso-lateral ankle. Wound measurements approx 3.0cm x 4.0 cm x 0.1cm. No active purulence noted to wound. Temp differential WNL. Pulses DP/PT +1/4. (+) POP rajwinder-wound margins. Torres Stephens DPM Oct 05, 2018 13:26
--- NOTE | 2018-10-05 14:15 | Infectious Diseases Prog Note ---
Assessment/Plan Assessment/Plan ASSESSMENT: The patient is a 67-year-old male with, Chronic obstructive pulmonary disease exacerbation, Sp Rx CXR: chronic obstructive pulmonary disease Afebrile Normal white blood cells History of chronic obstructive pulmonary disease History of right lower extremity osteomyelitis HTN Malnutrition History of alcohol abuse Seizure disorder Diabetes Coronary artery disease/coronary artery bypass graft PLAN: monitor pt off of AB Rx 10/04 SP Doxycycline orally day # 5 Monitor CBC. Monitor BMP. Monitor chest x-ray. Gen Sx recommend sternal wire removal. as out pt Pod fup , ordered MRI Subjective Allergies: Coded Allergies: EGG (Verified Allergy, Unknown, 09/28/18) MEPERIDINE (Verified Allergy, Unknown, 09/28/18) MORPHINE (Verified Allergy, Unknown, 09/28/18) NITROGLYCERIN (Verified Allergy, Unknown, hives, 09/28/18) Subjective comfortable Objective Vital Signs Last 24 Hour Vital Signs Date Time Temp Pulse Resp B/P (MAP) Pulse Ox O2 Delivery O2 Flow Rate FiO2 10/05/18 12:00 97.9 98 20 142/75 (97) 98 10/05/18 10:00 98.1 99 18 146/87 (106) 95 10/05/18 09:00 Room Air 10/05/18 07:43 79 20 98 Room Air 21 10/05/18 07:42 Room Air 21 10/05/18 07:42 97 Room Air 21 10/05/18 07:42 88 20 Room Air 21 10/05/18 07:35 78 20 97 Room Air 21 10/05/18 07:35 36 10/05/18 07:00 97.7 10/05/18 04:54 97.7 89 18 142/71 (94) 98 10/05/18 00:00 97.8 90 18 142/69 (93) 96 10/04/18 20:44 98.0 101 19 140/76 (97) 98 10/04/18 20:44 Room Air 10/04/18 19:30 96 Room Air 21 10/04/18 19:30 Room Air 21 10/04/18 19:30 92 22 Room Air 21 10/04/18 16:39 82 18 98 Room Air 21 10/04/18 16:32 89 18 95 Room Air 21 10/04/18 16:32 36 10/04/18 15:55 98.3 97 20 122/79 (93) 99 Height (Feet): 6 Height (Inches): 1.00 Weight (Pounds): 132 HEENT: anicteric Respiratory/Chest: no respiratory distress Cardiovascular: regularly irregular Abdomen: no organomegaly Current Medications Medications (Trade) Dose Ordered Sig/Aminata Route PRN Reason Start Time Stop Time Status Last Admin Dose Admin Acetaminophen (Tylenol) 650 mg Q4H PRN ORAL FEVER (temp >100.5 F) 09/30/18 21:45 10/30/18 21:44 Albuterol/ Ipratropium (Albuterol/ Ipratropium) 3 ml Q4H PRN HHN Shortness of Breath 09/30/18 21:30 10/05/18 21:29 10/05/18 07:42 Aspirin (ASA) 162 mg DAILY ORAL 10/01/18 09:00 10/29/18 08:59 10/05/18 09:32 Enalaprilat (Vasotec) 2.5 mg Q6H PRN IV sbp more than 160 09/30/18 21:45 10/30/18 21:44 Gadobutrol (Gadavist) 7.5 mmol NOW PRN IV Radiology Procedure 10/04/18 12:45 10/08/18 12:34 Heparin Sodium (Porcine) (Heparin 5000 units/ml) 5,000 units EVERY 12 HOURS SUBQ 10/01/18 09:00 10/29/18 08:59 10/05/18 09:29 Hydromorphone HCl (Dilaudid) 2 mg Q3H PRN IVP Severe Pain (Pain Scale 7-10) 09/30/18 21:33 10/06/18 21:32 10/05/18 12:50 Levetiracetam (Keppra) 500 mg DAILY ORAL 10/01/18 09:00 10/29/18 08:59 10/05/18 09:29 Mirtazapine (Remeron) 30 mg BEDTIME ORAL 10/01/18 21:00 10/29/18 20:59 10/04/18 20:29 Ondansetron HCl (Zofran) 4 mg Q6H PRN IVP Nausea & Vomiting 09/30/18 21:45 10/30/18 21:44 10/01/18 10:21 Pantoprazole (Protonix) 40 mg EVERY 12 HOURS ORAL 10/01/18 09:00 10/29/18 20:59 10/05/18 09:29 Polyethylene Glycol (Miralax) 17 gm DAILYPRN PRN ORAL Constipation 09/30/18 21:45 10/30/18 21:44 Sucralfate (Carafate) 1 gm FOUR TIMES A DAY ORAL 10/01/18 09:00 10/29/18 12:59 10/05/18 09:29 Temazepam (Restoril) 15 mg HSPRN PRN ORAL Insomnia 09/30/18 21:45 10/07/18 21:44 Theophylline (Wilfrido-Dur) 100 mg EVERY 12 HOURS ORAL 10/01/18 09:00 10/29/18 08:59 10/05/18 09:34 Reuben Reich MD Oct 05, 2018 14:14
--- NOTE | 2018-10-05 14:21 | Pulmonology Progress Note ---
Assessment/Plan Problems: (1) ACS (acute coronary syndrome) (2) Costochondritis (3) Cellulitis of right leg (4) ATN (acute tubular necrosis) (5) CAD (coronary artery disease) (6) Severe malnutrition (7) Peripheral arterial disease Assessment/Plan no new complains feeling better no new complains respiratory treatment f/u electrolytes symptomatic treatment f/u psych recommendations dc planning for am Subjective ROS Limited/Unobtainable: No Allergies: Coded Allergies: EGG (Verified Allergy, Unknown, 09/28/18) MEPERIDINE (Verified Allergy, Unknown, 09/28/18) MORPHINE (Verified Allergy, Unknown, 09/28/18) NITROGLYCERIN (Verified Allergy, Unknown, hives, 09/28/18) Objective Last 24 Hour Vital Signs Date Time Temp Pulse Resp B/P (MAP) Pulse Ox O2 Delivery O2 Flow Rate FiO2 10/05/18 12:00 97.9 98 20 142/75 (97) 98 10/05/18 10:00 98.1 99 18 146/87 (106) 95 10/05/18 09:00 Room Air 10/05/18 07:43 79 20 98 Room Air 10/05/18 07:42 Room Air 21 10/05/18 07:42 97 Room Air 21 10/05/18 07:42 88 20 Room Air 21 10/05/18 07:35 78 20 97 Room Air 21 10/05/18 07:35 36 10/05/18 07:00 97.7 10/05/18 04:54 97.7 89 18 142/71 (94) 98 10/05/18 00:00 97.8 90 18 142/69 (93) 96 10/04/18 20:44 98.0 101 19 140/76 (97) 98 10/04/18 20:44 Room Air 10/04/18 19:30 96 Room Air 21 10/04/18 19:30 Room Air 21 10/04/18 19:30 92 22 Room Air 21 10/04/18 16:39 82 18 98 Room Air 21 10/04/18 16:32 89 18 95 Room Air 21 10/04/18 16:32 36 10/04/18 15:55 98.3 97 20 122/79 (93) 99 Intake and Output 10/04/18 10/05/18 19:00 07:00 Intake Total 1200 ml 360 ml Output Total 400 ml Balance 1200 ml -40 ml Intake Oral 1200 ml 360 ml Output Urine Total 400 ml # Voids 4 General Appearance: cachetic HEENT: normocephalic, atraumatic Respiratory/Chest: chest wall non-tender, normal breath sounds Cardiovascular: normal peripheral pulses, normal rate Abdomen: normal bowel sounds, soft, non tender Genitourinary: normal external genitalia Skin: no rash 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: no motor/sensory deficits Current Medications Medications (Trade) Dose Ordered Sig/Aminata Route PRN Reason Start Time Stop Time Status Last Admin Dose Admin Acetaminophen (Tylenol) 650 mg Q4H PRN ORAL FEVER (temp >100.5 F) 09/30/18 21:45 10/30/18 21:44 Albuterol/ Ipratropium (Albuterol/ Ipratropium) 3 ml Q4H PRN HHN Shortness of Breath 09/30/18 21:30 10/05/18 21:29 10/05/18 07:42 Aspirin (ASA) 162 mg DAILY ORAL 10/01/18 09:00 10/29/18 08:59 10/05/18 09:32 Enalaprilat (Vasotec) 2.5 mg Q6H PRN IV sbp more than 160 09/30/18 21:45 10/30/18 21:44 Gadobutrol (Gadavist) 7.5 mmol NOW PRN IV Radiology Procedure 10/04/18 12:45 10/08/18 12:34 Heparin Sodium (Porcine) (Heparin 5000 units/ml) 5,000 units EVERY 12 HOURS SUBQ 10/01/18 09:00 10/29/18 08:59 10/05/18 09:29 Hydromorphone HCl (Dilaudid) 2 mg Q3H PRN IVP Severe Pain (Pain Scale 7-10) 09/30/18 21:33 10/06/18 21:32 10/05/18 12:50 Levetiracetam (Keppra) 500 mg DAILY ORAL 10/01/18 09:00 10/29/18 08:59 10/05/18 09:29 Mirtazapine (Remeron) 30 mg BEDTIME ORAL 10/01/18 21:00 10/29/18 20:59 10/04/18 20:29 Ondansetron HCl (Zofran) 4 mg Q6H PRN IVP Nausea & Vomiting 09/30/18 21:45 10/30/18 21:44 10/01/18 10:21 Pantoprazole (Protonix) 40 mg EVERY 12 HOURS ORAL 10/01/18 09:00 10/29/18 20:59 10/05/18 09:29 Polyethylene Glycol (Miralax) 17 gm DAILYPRN PRN ORAL Constipation 09/30/18 21:45 10/30/18 21:44 Sucralfate (Carafate) 1 gm FOUR TIMES A DAY ORAL 10/01/18 09:00 10/29/18 12:59 10/05/18 09:29 Temazepam (Restoril) 15 mg HSPRN PRN ORAL Insomnia 09/30/18 21:45 10/07/18 21:44 Theophylline (Wilfrido-Dur) 100 mg EVERY 12 HOURS ORAL 10/01/18 09:00 10/29/18 08:59 10/05/18 09:34 Jessie Magana MD Oct 05, 2018 14:21
[2018-10-05 16:00] VITALS: BP 139/77
--- NOTE | 2018-10-05 16:24 | Diagnostic Imaging Report ---
Indication: Open wound superior to ankle Technique: Sagittal, axial, and coronal T1 fast spin echo and fast spin echo STIR images were obtained of the right ankle. Comparison: Reference made to plain radiographs dated 10/04/2018 Findings: A marker nieves the open wound adjacent to the distal fibular shaft. There is mild edema of the soft tissues and skin thickening in this area, as well as medially. No focal drainable fluid collection to suggest abscess is demonstrated. An area of decreased T1 marrow signal without corresponding STIR abnormality most likely reflects some osseous sclerosis. Minimal very focal very well-circumscribed STIR signal abnormality in this area likely reflects degenerative changes. Multiple foci of very well-circumscribed height STIR signal abnormality and associated decreased T1 signal are seen in the distal tibia, which is markedly deformed due to prior trauma. Appearance of these is suggestive of degenerative subchondral cysts. There is degenerative narrowing of the tibiotalar joint. In the talus, there is a lesion which demonstrates peripheral serpiginous high STIR and low T1 signal and central marrow signal on the T1-weighted images combined with some high STIR signal. A similar lesion is seen within the posterior calcaneus. Both kidneys are suggestive of bone infarcts. No definite marrow abnormality to suggest acute osteomyelitis is demonstrated. Impression: Mild soft tissue edema. Given stated clinical history, most likely on the basis of soft tissue cellulitis No definite evidence of osteomyelitis. 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
--- NOTE | 2018-10-05 17:06 | Diagnostic Imaging Report ---
Indication: Pain, open wound on the lateral leg Technique: 3 views of the ankle Comparison: 2017 Findings: Again demonstrated is extensive posttraumatic deformity of the distal tibia and fibula. Again demonstrated is extensive secondary degenerative change of the ankle joint. No definite osseous erosion or unusual periosteal reaction demonstrated. Faint lucency with sclerotic rim seen in the posterior calcaneus, consistent with bone infarct demonstrated on subsequent MRI, also evident previously. 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
--- NOTE | 2018-10-05 17:08 | Cardiology Progress Note ---
Assessment/Plan Status: stable Assessment/Plan Assessment/Plan Status: stable Assessment/Plan Assessment (1) ACS (acute coronary syndrome) (2) Costochondritis (3) Cellulitis of right leg (4) ATN (acute tubular necrosis) (5) CAD (coronary artery disease) (6) Severe malnutrition (7) Peripheral arterial disease Plan Serial EKG/Troponin Nitro prn chest pain NO indication for stress test at this time Pain control Ranexa Aspirin Plavix Statin EECP outpatient to improve microvascular ischemia Podiatry consult for LE wound - doxycycline, imaging Outpatient referral made for sternal wire removal Subjective Cardiovascular: Reports: no symptoms Respiratory: Reports: no symptoms Gastrointestinal/Abdominal: Reports: no symptoms Genitourinary: Reports: no symptoms Subjective No acute events, vitals stable, troponin negative. Pt presents with full thickness wound superior but in close proximity to lateral R malleolus (L)4.5cm x (W)2.5cm Complain of leg pain, wants morphine, vitals stable, tolerating PO, no distress. Surgery consulted for sternal wire removal, to be done as outpatient. Objective Last 24 Hour Vital Signs Date Time Temp Pulse Resp B/P (MAP) Pulse Ox O2 Delivery O2 Flow Rate FiO2 10/05/18 16:00 98.0 95 20 139/77 (97) 96 10/05/18 12:00 97.9 98 20 142/75 (97) 98 10/05/18 10:00 98.1 99 18 146/87 (106) 95 10/05/18 09:00 Room Air 10/05/18 07:43 79 20 98 Room Air 10/05/18 07:42 Room Air 21 10/05/18 07:42 97 Room Air 21 10/05/18 07:42 88 20 Room Air 21 10/05/18 07:35 78 20 97 Room Air 21 10/05/18 07:35 36 10/05/18 07:00 97.7 10/05/18 04:54 97.7 89 18 142/71 (94) 98 10/05/18 00:00 97.8 90 18 142/69 (93) 96 10/04/18 20:44 98.0 101 19 140/76 (97) 98 10/04/18 20:44 Room Air 10/04/18 19:30 96 Room Air 21 10/04/18 19:30 Room Air 21 10/04/18 19:30 92 22 Room Air 21 General Appearance: no apparent distress, alert EENT: PERRL/EOMI, normal ENT inspection Neck: non-tender, normal alignment, supple, normal inspection, no JVD Rhythm: NSR Cardiovascular: normal peripheral pulses, normal rate, regular rhythm, regularly irregular Respiratory/Chest: chest wall non-tender, lungs clear, normal breath sounds Abdomen: normal bowel sounds, non tender, soft, no organomegaly Extremities: normal range of motion Neurologic: solution advisor II-XII grossly normal, no motor/sensory deficits Intake and Output 10/04/18 10/05/18 19:00 07:00 Intake Total 1200 ml 360 ml Output Total 400 ml Balance 1200 ml -40 ml Intake Oral 1200 ml 360 ml Output Urine Total 400 ml # Voids 4 Adonis Winn MD Oct 05, 2018 17:08
--- NOTE | 2018-10-05 17:35 | Diagnostic Imaging Report ---
Indication: Dyspnea Technique: One view of the chest Comparison: 09/28/2018 Findings: Lungs and pleural spaces are clear. Heart size is normal . There is evidence of prior median sternotomy Impression: No acute process
[2018-10-05 20:00] VITALS: BP 136/85
--- NOTE | 2018-10-05 20:07 | Internal Med Progress Note ---
Subjective Date of Service: Oct 05, 2018 Physician Name Shantanu Reyna Attending Physician Phil Wright MD Current Medications Medications (Trade) Dose Ordered Sig/Aminata Route PRN Reason Start Time Stop Time Status Last Admin Dose Admin Acetaminophen (Tylenol) 650 mg Q4H PRN ORAL FEVER (temp >100.5 F) 09/30/18 21:45 10/30/18 21:44 Albuterol/ Ipratropium (Albuterol/ Ipratropium) 3 ml Q4H PRN HHN Shortness of Breath 09/30/18 21:30 10/05/18 21:29 10/05/18 07:42 Aspirin (ASA) 162 mg DAILY ORAL 10/01/18 09:00 10/29/18 08:59 10/05/18 09:32 Enalaprilat (Vasotec) 2.5 mg Q6H PRN IV sbp more than 160 09/30/18 21:45 10/30/18 21:44 Gadobutrol (Gadavist) 7.5 mmol NOW PRN IV Radiology Procedure 10/04/18 12:45 10/08/18 12:34 Heparin Sodium (Porcine) (Heparin 5000 units/ml) 5,000 units EVERY 12 HOURS SUBQ 10/01/18 09:00 10/29/18 08:59 10/05/18 09:29 Hydromorphone HCl (Dilaudid) 2 mg Q3H PRN IVP Severe Pain (Pain Scale 7-10) 09/30/18 21:33 10/06/18 21:32 10/05/18 16:43 Levetiracetam (Keppra) 500 mg DAILY ORAL 10/01/18 09:00 10/29/18 08:59 10/05/18 09:29 Mirtazapine (Remeron) 30 mg BEDTIME ORAL 10/01/18 21:00 10/29/18 20:59 10/04/18 20:29 Ondansetron HCl (Zofran) 4 mg Q6H PRN IVP Nausea & Vomiting 09/30/18 21:45 10/30/18 21:44 10/01/18 10:21 Pantoprazole (Protonix) 40 mg EVERY 12 HOURS ORAL 10/01/18 09:00 10/29/18 20:59 10/05/18 09:29 Polyethylene Glycol (Miralax) 17 gm DAILYPRN PRN ORAL Constipation 09/30/18 21:45 10/30/18 21:44 Sucralfate (Carafate) 1 gm FOUR TIMES A DAY ORAL 10/01/18 09:00 10/29/18 12:59 10/05/18 18:22 Temazepam (Restoril) 15 mg HSPRN PRN ORAL Insomnia 09/30/18 21:45 10/07/18 21:44 Theophylline (Wilfrido-Dur) 100 mg EVERY 12 HOURS ORAL 10/01/18 09:00 10/29/18 08:59 10/05/18 09:34 Allergies: Coded Allergies: EGG (Verified Allergy, Unknown, 09/28/18) MEPERIDINE (Verified Allergy, Unknown, 09/28/18) MORPHINE (Verified Allergy, Unknown, 09/28/18) NITROGLYCERIN (Verified Allergy, Unknown, hives, 09/28/18) ROS Limited/Unobtainable: No Constitutional: Reports: no symptoms HEENT: Reports: no symptoms Cardiovascular: Reports: no symptoms Respiratory: Reports: no symptoms Gastrointestinal/Abdominal: Reports: no symptoms Genitourinary: Reports: no symptoms 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: Reports: no symptoms Subjective 67 YO M admitted with chief complaint of chest pain. "Why are you here? I thought you weren't my doctor anymore." Cover for Int Med-Dr Wright Objective Last Vital Signs Date Time Temp Pulse Resp B/P (MAP) Pulse Ox O2 Delivery O2 Flow Rate FiO2 10/05/18 16:00 98.0 95 20 139/77 (97) 96 10/05/18 09:00 Room Air 10/05/18 07:43 21 09/30/18 09:00 2.0 Intake and Output 10/04/18 10/05/18 19:00 07:00 Intake Total 1200 ml 360 ml Output Total 400 ml Balance 1200 ml -40 ml Intake Oral 1200 ml 360 ml Output Urine Total 400 ml # Voids 4 Objective General Appearance: WD/WN, no apparent distress, alert, thin EENT: PERRL/EOMI, normal ENT inspection Neck: non-tender, normal alignment, supple, normal inspection Cardiovascular: normal peripheral pulses, normal rate, regular rhythm, no gallop/murmur, no JVD Respiratory/Chest: chest wall non-tender, lungs clear, normal breath sounds, no respiratory distress, no accessory muscle use Abdomen: normal bowel sounds, non tender, soft, no organomegaly, no mass, abnormal bowel sounds Extremities: normal range of motion, non-tender 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 Not on plavix currently. See cardiology note. (4) COPD exacerbation Assessment & Plan: see pulmonary note. (5) HTN (hypertension) Assessment & Plan: Continue cardizem and vasotec (6) Irritable behavior (7) Opiate dependence, continuous (8) Borderline personality disorder Assessment & Plan: See psych note. Threatening to kill both Dr Wright and Dr Reyna (9) Right ankle pain Assessment & Plan: Await MRI ankle result Status: Shantanu Rogers MD Oct 05, 2018 20:07
[2018-10-06] VITALS: BP 138/78
--- NOTE | 2018-10-06 00:43 | General Progress Note ---
Assessment/Plan Assessment/Plan Major depressive disorder, opiate pain medication dependence. cluster B personality d/o -Remeron 30mg po qhs -provided ro/st Subjective Date patient seen: Oct 05, 2018 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: Reports: anxiety, depressed, emotional problems Allergies: Coded Allergies: EGG (Verified Allergy, Unknown, 09/28/18) MEPERIDINE (Verified Allergy, Unknown, 09/28/18) MORPHINE (Verified Allergy, Unknown, 09/28/18) NITROGLYCERIN (Verified Allergy, Unknown, hives, 09/28/18) Objective Last 24 Hour Vital Signs Date Time Temp Pulse Resp B/P (MAP) Pulse Ox O2 Delivery O2 Flow Rate FiO2 10/05/18 22:08 96 Room Air 21 10/05/18 22:08 Room Air 21 10/05/18 22:07 101 20 Room Air 21 10/05/18 20:00 98.8 105 19 136/85 (102) 95 10/05/18 16:00 98.0 95 20 139/77 (97) 96 10/05/18 12:00 97.9 98 20 142/75 (97) 98 10/05/18 10:00 98.1 99 18 146/87 (106) 95 10/05/18 09:00 Room Air 10/05/18 07:43 79 20 98 Room Air 21 10/05/18 07:42 Room Air 21 10/05/18 07:42 97 Room Air 21 10/05/18 07:42 88 20 Room Air 21 10/05/18 07:35 78 20 97 Room Air 21 10/05/18 07:35 36 10/05/18 07:00 97.7 10/05/18 04:54 97.7 89 18 142/71 (94) 98 Intake and Output 10/05/18 10/06/18 19:00 07:00 Intake Total 1820 ml Balance 1820 ml Intake Oral 1820 ml # Voids 6 # Bowel Movements 1 Height (Feet): 6 Height (Inches): 1.00 Weight (Pounds): 132 General Appearance: no apparent distress, alert Neurologic: oriented x 3, responsive, depressed affect Rachael Buckley MD Oct 06, 2018 00:43
[2018-10-06 04:00] VITALS: BP 141/76
[2018-10-06 08:11] VITALS: BP 144/81
[2018-10-06] MEDS: Sucralfate 1gm tab ORAL SCH ×2 (09:36→13:31)
[2018-10-06] MEDS: Theophylline ER 100mg ORAL SCH (09:37)
[2018-10-06] MEDS: Aspirin Baby 81mg ORAL SCH (09:38)
[2018-10-06] MEDS: Heparin 5000 units/ml inj SUBQ SCH (09:40)
--- NOTE | 2018-10-06 12:00 | Podiatric Progress Note ---
Assessment/Plan Patient Benjamin Ring is a 67 year old male who was admitted on Sep 28, 2018 at 22:55 with Assessment/Plan Patient with PVD and R ankle ulceration Patient is clear for discharge with local wound care. Subjective Allergies: Coded Allergies: EGG (Verified Allergy, Unknown, 09/28/18) MEPERIDINE (Verified Allergy, Unknown, 09/28/18) MORPHINE (Verified Allergy, Unknown, 09/28/18) NITROGLYCERIN (Verified Allergy, Unknown, hives, 09/28/18) Subjective patient is seen for follow up R ankle ulcer. Patient has negative MRI is negative for Osteo and abscess. WBC is wnl Objective Exam Last 24 Hour Vital Signs Date Time Temp Pulse Resp B/P (MAP) Pulse Ox O2 Delivery O2 Flow Rate FiO2 10/06/18 09:24 Room Air 21 10/06/18 09:24 96 Room Air 21 10/06/18 09:24 92 22 Room Air 21 10/06/18 08:41 Room Air 10/06/18 08:11 97.5 99 15 144/81 (102) 96 10/06/18 04:00 98.8 94 18 141/76 (97) 99 10/06/18 00:00 98.9 99 19 138/78 (98) 97 10/05/18 22:08 96 Room Air 21 10/05/18 22:08 Room Air 21 10/05/18 22:07 101 20 Room Air 21 10/05/18 21:00 Room Air 10/05/18 20:00 98.8 105 19 136/85 (102) 95 10/05/18 16:00 98.0 95 20 139/77 (97) 96 10/05/18 12:00 97.9 98 20 142/75 (97) 98 Dermatological Dermatological Narrative R ankle wound lateral to the fibula malleoli noted to be stable clear from discharge and drainage. superficial ulceration. no cellulitis rajwinder wound edema noted. no pus. Adonis Salcedo DPM Oct 06, 2018 12:00
[2018-10-06 12:17] VITALS: BP 145/86
--- NOTE | 2018-10-06 12:30 | General Surgery Progress Note ---
General Surgery-Progress Note Subjective Symptoms: improved, tolerating diet, passing flatus Additional Comments MRI noted. appreciate podiatry input Objective Last 24 Hour Vital Signs Date Time Temp Pulse Resp B/P (MAP) Pulse Ox O2 Delivery O2 Flow Rate FiO2 10/06/18 12:17 97.9 99 18 145/86 (105) 95 10/06/18 09:24 Room Air 21 10/06/18 09:24 96 Room Air 21 10/06/18 09:24 92 22 Room Air 10/06/18 08:41 Room Air 10/06/18 08:11 97.5 99 15 144/81 (102) 96 10/06/18 04:00 98.8 94 18 141/76 (97) 99 10/06/18 00:00 98.9 99 19 138/78 (98) 97 10/05/18 22:08 96 Room Air 21 10/05/18 22:08 Room Air 21 10/05/18 22:07 101 20 Room Air 10/05/18 21:00 Room Air 10/05/18 20:00 98.8 105 19 136/85 (102) 95 10/05/18 16:00 98.0 95 20 139/77 (97) 96 I&O Intake and Output 10/05/18 10/06/18 18:59 06:59 Intake Total 1820 ml 360 ml Output Total 1000 ml Balance 1820 ml -640 ml Intake Oral 1820 ml 360 ml Output Urine Total 1000 ml # Voids 6 # Bowel Movements 1 Dressing: other Wound: other Drains: other Cardiovascular: RSR Respiratory: clear Abdomen: soft, flat, non-tender, present bowel sounds Extremities: no cyanosis Plan Problems: (1) Atypical chest pain Assessment & Plan: cardiac work up negative patient well known to me prior recommended him to seek cardiac surgery eval as an outpatient. he did not again noted sternal wires at skin level wound chronic wounds from foreign body. recommend sternal wire removal. unfortunately cannot be done at [facility] currently and can be done electively referral to cardiac surgery given to patient. I had spoken to a cardiac surgery who is willing to see patient and remove wires electively. office info and contact info given directly to patient for referral. he states he will f/u as outpatient. okay to d/c from surgical standpoint thank you for this consultation. Ugo Simms Oct 06, 2018 12:30
--- NOTE | 2018-10-06 15:16 | Progress Note ---
DATE: 10/06/2018 SUBJECTIVE: The patient has same complaints, presenting with depressed mood, anhedonia, anxiety, difficulty sleeping, poor insight and judgment into his mental condition. Easily agitated. MENTAL STATUS EXAMINATION: The patient is alert and oriented times self, place, and situation. Mood is dysphoric and anxious. Affect is constricted. Congruent with mood. Thought process is concrete. Thought content, no suicidal, homicidal ideation. No delusions. No auditory or visual hallucinations. Cognition is intact. Insight and judgment is poor. ASSESSMENT: 1. Substance use dependence, opiates. 2. Depression. PLAN: 1. We will continue the Remeron. 2. Provide him with script. 3. Provided him with reality orientation and supportive therapy. Rachael Buckley M.D. DR: Gene JOB#: [id number] CC:
--- NOTE | 2018-10-06 16:10 | Infectious Diseases Prog Note ---
Assessment/Plan Assessment/Plan ASSESSMENT: The patient is a 67-year-old male with, Chronic obstructive pulmonary disease exacerbation, Sp Rx CXR: chronic obstructive pulmonary disease Afebrile Normal white blood cells History of right lower extremity osteomyelitis 10/05 MRI : No definite evidence of osteomyelitis. History of chronic obstructive pulmonary disease HTN Malnutrition History of alcohol abuse Seizure disorder Diabetes Coronary artery disease/coronary artery bypass graft PLAN: monitor pt off of AB Rx 10/04 SP Doxycycline orally day # 5 Monitor CBC. Monitor BMP. Monitor chest x-ray. Gen Sx recommend sternal wire removal. as out pt Pod fup Subjective Allergies: Coded Allergies: EGG (Verified Allergy, Unknown, 09/28/18) MEPERIDINE (Verified Allergy, Unknown, 09/28/18) MORPHINE (Verified Allergy, Unknown, 09/28/18) NITROGLYCERIN (Verified Allergy, Unknown, hives, 09/28/18) Subjective comfortable Objective Vital Signs Last 24 Hour Vital Signs Date Time Temp Pulse Resp B/P (MAP) Pulse Ox O2 Delivery O2 Flow Rate FiO2 10/06/18 12:17 97.9 99 18 145/86 (105) 95 10/06/18 09:24 Room Air 21 10/06/18 09:24 96 Room Air 21 10/06/18 09:24 92 22 Room Air 10/06/18 08:41 Room Air 10/06/18 08:11 97.5 99 15 144/81 (102) 96 10/06/18 04:00 98.8 94 18 141/76 (97) 99 10/06/18 00:00 98.9 99 19 138/78 (98) 97 10/05/18 22:08 96 Room Air 21 10/05/18 22:08 Room Air 21 10/05/18 22:07 101 20 Room Air 21 10/05/18 21:00 Room Air 10/05/18 20:00 98.8 105 19 136/85 (102) 95 Height (Feet): 6 Height (Inches): 1.00 Weight (Pounds): 132 HEENT: mucous membranes moist Respiratory/Chest: no respiratory distress Cardiovascular: regularly irregular Abdomen: soft, non tender Current Medications Medications (Trade) Dose Ordered Sig/Aminata Route PRN Reason Start Time Stop Time Status Last Admin Dose Admin Acetaminophen (Tylenol) 650 mg Q4H PRN ORAL FEVER (temp >100.5 F) 09/30/18 21:45 10/30/18 21:44 Aspirin (ASA) 162 mg DAILY ORAL 10/01/18 09:00 10/29/18 08:59 10/06/18 09:38 Enalaprilat (Vasotec) 2.5 mg Q6H PRN IV sbp more than 160 09/30/18 21:45 10/30/18 21:44 Gadobutrol (Gadavist) 7.5 mmol NOW PRN IV Radiology Procedure 10/04/18 12:45 10/08/18 12:34 Heparin Sodium (Porcine) (Heparin 5000 units/ml) 5,000 units EVERY 12 HOURS SUBQ 10/01/18 09:00 10/29/18 08:59 10/06/18 09:40 Hydromorphone HCl (Dilaudid) 2 mg Q3H PRN IVP Severe Pain (Pain Scale 7-10) 09/30/18 21:33 10/06/18 21:32 10/06/18 12:16 Levetiracetam (Keppra) 500 mg DAILY ORAL 10/01/18 09:00 10/29/18 08:59 10/06/18 09:37 Mirtazapine (Remeron) 30 mg BEDTIME ORAL 10/01/18 21:00 10/29/18 20:59 10/05/18 21:05 Ondansetron HCl (Zofran) 4 mg Q6H PRN IVP Nausea & Vomiting 09/30/18 21:45 10/30/18 21:44 10/01/18 10:21 Pantoprazole (Protonix) 40 mg EVERY 12 HOURS ORAL 10/01/18 09:00 10/29/18 20:59 10/06/18 09:35 Polyethylene Glycol (Miralax) 17 gm DAILYPRN PRN ORAL Constipation 09/30/18 21:45 10/30/18 21:44 Sucralfate (Carafate) 1 gm FOUR TIMES A DAY ORAL 10/01/18 09:00 10/29/18 12:59 10/06/18 13:31 Temazepam (Restoril) 15 mg HSPRN PRN ORAL Insomnia 09/30/18 21:45 10/07/18 21:44 Theophylline (Wilfrido-Dur) 100 mg EVERY 12 HOURS ORAL 10/01/18 09:00 10/29/18 08:59 10/06/18 09:37 Reuben Reich MD Oct 06, 2018 16:10
--- NOTE | 2018-10-06 17:13 | Cardiology Progress Note ---
Assessment/Plan Status: stable Assessment/Plan Assessment/Plan Status: stable Assessment/Plan Assessment (1) ACS (acute coronary syndrome) (2) Costochondritis (3) Cellulitis of right leg (4) ATN (acute tubular necrosis) (5) CAD (coronary artery disease) (6) Severe malnutrition (7) Peripheral arterial disease Plan Serial EKG/Troponin Nitro prn chest pain NO indication for stress test at this time Pain control Ranexa Aspirin Plavix Statin EECP outpatient to improve microvascular ischemia Podiatry consult for LE wound - doxycycline, imaging Outpatient referral made for sternal wire removal Subjective Cardiovascular: Reports: no symptoms Respiratory: Reports: no symptoms Gastrointestinal/Abdominal: Reports: no symptoms Genitourinary: Reports: no symptoms Subjective No acute events, vitals stable, troponin negative. Pt presents with full thickness wound superior but in close proximity to lateral R malleolus (L)4.5cm x (W)2.5cm Complain of leg pain, wants morphine, vitals stable, tolerating PO, no distress. Surgery consulted for sternal wire removal, to be done as outpatient. Objective Last 24 Hour Vital Signs Date Time Temp Pulse Resp B/P (MAP) Pulse Ox O2 Delivery O2 Flow Rate FiO2 10/06/18 12:17 97.9 99 18 145/86 (105) 95 10/06/18 09:24 Room Air 21 10/06/18 09:24 96 Room Air 21 10/06/18 09:24 92 22 Room Air 10/06/18 08:41 Room Air 10/06/18 08:11 97.5 99 15 144/81 (102) 96 10/06/18 04:00 98.8 94 18 141/76 (97) 99 10/06/18 00:00 98.9 99 19 138/78 (98) 97 10/05/18 22:08 96 Room Air 21 10/05/18 22:08 Room Air 21 10/05/18 22:07 101 20 Room Air 21 10/05/18 21:00 Room Air 10/05/18 20:00 98.8 105 19 136/85 (102) 95 General Appearance: no apparent distress, alert EENT: PERRL/EOMI, normal ENT inspection, TMs normal, pharynx normal Neck: non-tender, normal alignment, supple, normal inspection, no JVD Rhythm: NSR Cardiovascular: normal peripheral pulses, normal rate, regular rhythm Respiratory/Chest: chest wall non-tender, lungs clear, normal breath sounds, no respiratory distress, no accessory muscle use Abdomen: normal bowel sounds, non tender, soft, no organomegaly, no mass Extremities: normal range of motion, non-tender, normal inspection Neurologic: media liaison officer II-XII grossly normal, no motor/sensory deficits Intake and Output 10/05/18 10/06/18 18:59 06:59 Intake Total 1820 ml 360 ml Output Total 1000 ml Balance 1820 ml -640 ml Intake Oral 1820 ml 360 ml Output Urine Total 1000 ml # Voids 6 # Bowel Movements 1 Adonis Winn MD Oct 06, 2018 17:13
--- NOTE | 2018-10-07 11:37 | Discharge Summary ---
Discharge Summary Discharge Summary _ DATE OF ADMISSION: 09/28/2018 DATE OF DISCHARGE: 10/06/2018 REASON FOR ADMISSION: 67 years old male with past medical history of coronary artery disease, status post CABG, COPD ,peripheral vascular disease ,chronic right lateral ankle ulcer , seizure disorder, hypothyroidism, presented to emergency department with chief complaint of chest pain for several days. He denied radiation of pain He admitted to occasional shortness of breath Patient had recurrent similar symptoms in the past. No nausea no vomiting . No fever no chills . In emergency department patient's blood pressure was elevated - 165/107. Patient was tachycardic with heart rate of 123. Troponin negative . Pro BNP 416 . EKG revealed sinus tachycardia , no acute ischemic changes. Chest x-ray revealed no acute cardiopulmonary disease. The findings were consistent with COPD. No leukocytosis , stable hemoglobin and hematocrit. Creatinine 1.5. Patient admitted with diagnoses of chest pain, rule out acute coronary syndrome , COPD with possible exacerbation ,chronic pain syndrome, chronic ulcer right leg ,severe malnutrition ,peripheral vascular disease ,coronary artery disease , seizure disorder, hypertension , renal insufficiency. CONSULTANTS: joy loader Dr. Winn pulmonary Dr. Magana ID specialist Dr. Reich surgery Dr. Simms psychiatrist secretary specialist Dr. Salcedo/Dr. Stephens HOSPITAL COURSE: Patient initially admitted to monitored floor. Cardiology and pulmonology consult requested. Serial troponin were negative. EKG revealed no acute ischemic changes. Patient was ruled out for acute myocardial infarction. Echocardiogram revealed preserved ejection fraction. Patient undergone recent cardiac catheterization at [facility] [place]. Patient with recurrent complaints of chest pain, likely microvascular ischemia - as per joy loader. Optometrist/Practice Owner recommended EECP as outpatient to improve microvascular ischemia. Dual antiplatelet therapy with aspirin and Plavix provided. Patient was continued on statin and Ranexa ( allergic to nitroglycerin). Per joy loader , no indication for stress test at this time. Outpatient referral was made for sternal wire removal. Supplemental oxygen provided as needed to keep pulse oximetry above 92%. Pulmonary toilet provided around the clock and as needed. Patient had course of empiric antibiotic as per ID specialist recommendations. Patient status post treatment with antibiotic . No fever no leukocytosis. Antitussive were on board as needed. Chest x-ray revealed evidence of chronic changes secondary to COPD, but no acute cardiopulmonary pathology. I Access Control Officer closely followed. Wound care provided as per secretary specialist recommendations. MRI of the right ankle revealed no definite evidence of osteomyelitis. Arterial duplex showed moderate stenosis 50-69 % in the common femoral artery and profunda femoral artery right lower extremity. No evidence of stenosis or occlusion. Seizure precautions were maintained. K eppra was continued. No evidence of seizure activity while in the hospital. Finish Off Operator recommendations recommended in plan of care. Renal parameters and electrolytes were closely monitored , and nephrotoxins were avoided. No significant change in creatinine: from initial 1.5 down to 1.4 . Psychiatrist closely followed. Patient was on Remeron. Supportive care provided. Pain management was addressed. DVT, GI prophylaxis provided. Bowel regimen instituted. Patient was cleared for discharge home. FINAL DIAGNOSES: costochondritis recurrent chest pain likely due to microvascular ischemia coronary artery disease with history of CABG COPD with probable exacerbation peripheral vascular disease chronic right lateral ankle wound with superficial ulceration severe protein calorie malnutrition seizure disorder chronic renal insufficiency depression substance use dependence, opiates. DISCHARGE MEDICATIONS: See Medication Reconciliation list. DISCHARGE INSTRUCTIONS: Patient discharged home . Outpatient follow-up with the primary care provider in one week recommended. Outpatient EECP for microvascular ischemia evaluation . Optometrist/Practice Owner made referral for sternal wire removal. Kristine Black NP Oct 07, 2018 11:37
== END 2018-10-06 14:40 | disposition home or self-care (01) | DRG 198 ==
LOC: EMR 22:19 → 2E 22:55 → EDBEDREQ 23:59 → 4E 09-30 21:32
DX: I25.118 Atherosclerotic heart disease of native coronary artery with other forms of angina pectoris (principal); N17.0 Acute kidney failure with tubular necrosis; E43 Unspecified severe protein-calorie malnutrition; J44.1 Chronic obstructive pulmonary disease with (acute) exacerbation; L97.319 Non-pressure chronic ulcer of right ankle with unspecified severity; F11.20 Opioid dependence, uncomplicated; Z68.1 Body mass index [BMI] 19.9 or less, adult; L03.115 Cellulitis of right lower limb; M94.0 Chondrocostal junction syndrome [Tietze]; F17.200 Nicotine dependence, unspecified, uncomplicated; G40.909 Epilepsy, unspecified, not intractable, without status epilepticus; I25.2 Old myocardial infarction; Z95.5 Presence of coronary angioplasty implant and graft; Z95.1 Presence of aortocoronary bypass graft; Z79.82 Long term (current) use of aspirin; Z88.6 Allergy status to analgesic agent; Z88.8 Allergy status to other drugs, medicaments and biological substances; I73.9 Peripheral vascular disease, unspecified; F32.9 Major depressive disorder, single episode, unspecified; F10.21 Alcohol dependence, in remission; E11.9 Type 2 diabetes mellitus without complications; I10 Essential (primary) hypertension; F60.3 Borderline personality disorder; R45.4 Irritability and anger; F41.9 Anxiety disorder, unspecified
CPT/HCPCS: 36415; 71045; 80053; 80061; 80299; 81003; 82550; 82553; 83735; 83880; 84100; 84443; 84484; 85025; 85610; 85651; 85730; 86140; 93005; 93306; 93926; 94640; 94664; 94760; 96361; 96374; 96375; 99285; J2405; J7620

== ENCOUNTER 2018-11-02 19:41 | Inpatient (IN) | payer MEDICARE, MEDICAID ==
[~2018-11-02] VITALS: Ht 188 cm; Wt 66.4 kg
[2018-11-02 19:48] VITALS: BP 159/140
[2018-11-02] MEDS ORDERED: DOCUSATE SODIU100 MG ORAL (19:56)
[2018-11-02] MEDS ORDERED: ROXICODONE30 M1 ORAL (19:56)
[2018-11-02] MEDS ORDERED: PREDNISONE50 MG ORAL (19:56)
[2018-11-02] MEDS ORDERED: CLOPIDOGREL75 MG ORAL (19:56)
[2018-11-02] MEDS ORDERED: AMLODIPINE BESY10 MG ORAL (19:56)
[2018-11-02] MEDS ORDERED: HYDROmorphone 1mg/ml Carpuject IVP ONE (20:15)
[2018-11-02 20:36] LABS: BASOPHILS % (AUTO) 1.9 % (0.0-2.0); EOSINOPHILS % (AUTO) 6.3 % (0.0-3.0); HEMATOCRIT 41.8 % (42.0-52.0); HEMOGLOBIN 12.9 G/DL (14.2-18.0); LYMPHOCYTES % (AUTO) 34.9 % (20.0-45.0); MEAN CORPUSCULAR VOLUME 82 FL (80-99); MONOCYTES % (AUTO) 13.4 % (1.0-10.0); NEUTROPHILS % (AUTO) 43.5 % (45.0-75.0); PLATELET COUNT 299 K/UL (150-450); RED BLOOD COUNT 5.06 M/UL (4.70-6.10); RED CELL DISTRIBUTION WIDTH 16.8 % (11.6-14.8); WHITE BLOOD COUNT 8.1 K/UL (4.8-10.8)
[2018-11-02] MEDS ORDERED: dilTIAZem HCl 25mg/5ml Inj IV PRN (20:45)
[2018-11-02] MEDS ORDERED: Miralax 17gm pkt ORAL PRN (20:45)
[2018-11-02] MEDS ORDERED: HYDROmorphone 2 MG in NS 50 ML IVPB PRN (20:45)
[2018-11-02] MEDS ORDERED: Enalaprilat 2.5mg/2ml Inj IV PRN (20:45)
--- NOTE | 2018-11-02 21:07 | Emergency Room Report ---
History of Present Illness General Chief Complaint: Chest Pain Source: Patient, Family Member, Medical Record Present Illness HPI Patient presents with reports of difficulty ambulating pain to the right ankle chest pain or shortness of breath Patient reports a symptoms ongoing for the past several days Upon arrival patient also requesting Dilaudid Reports that he is allergic to morphine Patient reports that he has reported his last 2 physicians to the medical board for abandonment Has had progressed discomfort to the ankle Requesting admission to Dr. Magana Family reports that they have had difficulty with outpatient follow-up Patient reports chest pain is 5 out of 10 midsternal Also feeling short of breath especially with exertion Allergies: Coded Allergies: EGG (Verified Allergy, Unknown, 09/28/18) MEPERIDINE (Verified Allergy, Unknown, 09/28/18) MORPHINE (Verified Allergy, Unknown, 09/28/18) NITROGLYCERIN (Verified Allergy, Unknown, hives, 09/28/18) Patient History Past Medical History: see triage record Pertinent Family History: none Reviewed Nursing Documentation: PMH: Agreed; PSxH: Agreed Nursing Documentation-PMH Past Medical History: No History, Except For Hx Cardiac Problems: Yes Hx Hypertension: Yes Hx Pacemaker: No Hx Asthma: No Hx COPD: Yes Hx Diabetes: No Hx Cancer: No Hx Gastrointestinal Problems: Yes - Stomach Ulcer, Hep C Hx Dialysis: No - kidney problems Hx Neurological Problems: Yes Hx Cerebrovascular Accident: No Hx Transient Ischemic Attacks: No Hx Alzheimer's Disease: No Hx Encephalitis: No Hx Seizures: Yes Hx Epilepsy: No Hx Multiple Sclerosis: No Hx Cerebral Palsy: No Hx Amyotrophic Lat Sclerosis: No Hx [place]illian-[place] Syndrome: No Hx Paralysis: No Hx Peripheral Neuropathy: No Hx Spinal Cord Injury: No Hx Head Trauma: No Hx Traumatic Brain Injury: No Hx Memory Loss: No Hx Concentration Difficulty: No Hx Speech Problem: No Hx Tremors: Yes Hx Vertigo: No Hx Dizziness: No Hx Syncope: Yes Hx Headaches: Yes Hx Aphasia: No Hx Dysphasia: Yes Hx Numbness: No Hx Weakness: Yes Hx Fatigue: No Hx Neurologic Surgery: No Hx Brain Shunt: No Review of Systems All Other Systems: negative except mentioned in HPI Physical Exam Vital Signs Date Time Temp Pulse Resp B/P (MAP) Pulse Ox O2 Delivery O2 Flow Rate FiO2 11/02/18 19:43 98.6 123 20 248/116 91 Room Air Sp02 EP Interpretation: reviewed, normal General Appearance: no apparent distress Head: normocephalic, atraumatic Eyes: bilateral eye PERRL, bilateral eye EOMI ENT: hearing grossly normal, normal pharynx Neck: supple, thyroid normal Respiratory: no retraction, no accessory muscle use, crackles - Both lower lobes mildly tachypneic Cardiovascular #1: regular rate, rhythm Gastrointestinal: non tender, soft Musculoskeletal: swelling Neurologic: alert, oriented x3, responsive Skin: other - Venous stasis right lower extremity, open wound starting in the lateral ankle, tender on palpation Lymphatic: other - Swelling right lower leg Medical Decision Making Diagnostic Impression: Primary Impression: ACS (acute coronary syndrome) Additional Impressions: Right ankle pain COPD exacerbation ER Course Patient is a fairly complex patient with multiple differential to consideration including but not limited to cardiac cardiopulmonary and vascular emergencies Patient's blood work reveals elevated BNP Patient also has underlying COPD history and requesting breathing treatment Patient has difficulty standing and ambulating Mainly secondary to the right ankle lesion And will require further inpatient care Labs Test 11/02/18 20:20 11/03/18 05:50 White Blood Count 8.1 K/UL (4.8-10.8) 5.9 K/UL (4.8-10.8) Red Blood Count 5.06 M/UL (4.70-6.10) 4.62 M/UL (4.70-6.10) Hemoglobin 12.9 G/DL (14.2-18.0) 11.8 G/DL (14.2-18.0) Hematocrit 41.8 % (42.0-52.0) 38.0 % (42.0-52.0) Mean Corpuscular Volume 82 FL (80-99) 82 FL (80-99) Mean Corpuscular Hemoglobin 25.5 PG (27.0-31.0) 25.5 PG (27.0-31.0) Mean Corpuscular Hemoglobin Concent 30.9 G/DL (32.0-36.0) 31.0 G/DL (32.0-36.0) Red Cell Distribution Width 16.8 % (11.6-14.8) 17.1 % (11.6-14.8) Platelet Count 299 K/UL (150-450) 268 K/UL (150-450) Mean Platelet Volume 6.3 FL (6.5-10.1) 6.0 FL (6.5-10.1) Neutrophils (%) (Auto) 43.5 % (45.0-75.0) 37.3 % (45.0-75.0) Lymphocytes (%) (Auto) 34.9 % (20.0-45.0) 40.1 % (20.0-45.0) Monocytes (%) (Auto) 13.4 % (1.0-10.0) 13.3 % (1.0-10.0) Eosinophils (%) (Auto) 6.3 % (0.0-3.0) 7.4 % (0.0-3.0) Basophils (%) (Auto) 1.9 % (0.0-2.0) 1.9 % (0.0-2.0) Sodium Level 138 MMOL/L (136-145) Potassium Level 4.1 MMOL/L (3.5-5.1) Chloride Level 104 MMOL/L (98-107) Carbon Dioxide Level 26 MMOL/L (21-32) Anion Gap 8 mmol/L (5-15) Blood Urea Nitrogen 15 mg/dL (7-18) Creatinine 1.3 MG/DL (0.55-1.30) Estimat Glomerular Filtration Rate > 60 mL/min (>60) Glucose Level 97 MG/DL (74-106) Calcium Level 8.7 MG/DL (8.5-10.1) Total Bilirubin 0.2 MG/DL (0.2-1.0) Aspartate Amino Transf (AST/SGOT) 19 U/L (15-37) Alanine Aminotransferase (ALT/SGPT) 19 U/L (12-78) Alkaline Phosphatase 140 U/L (46-116) Total Creatine Kinase 205 U/L (26-308) Creatine Kinase MB 2.4 NG/ML (0.0-3.6) Creatine Kinase MB Relative Index 1.1 Troponin I 0.008 ng/mL (0.000-0.056) 0.015 ng/mL (0.000-0.056) Pro-B-Type Natriuretic Peptide 1003 pg/mL (0-125) Total Protein 8.4 G/DL (6.4-8.2) Albumin 3.7 G/DL (3.4-5.0) Globulin 4.7 g/dL Albumin/Globulin Ratio 0.8 (1.0-2.7) Prothrombin Time 10.2 SEC (9.30-11.50) Prothromb Time International Ratio 1.0 (0.9-1.1) Activated Partial Thromboplast Time 31 SEC (23-33) C-Reactive Protein, Quantitative 3.3 mg/dL (0.00-0.90) Triglycerides Level 79 MG/DL (30-150) Cholesterol Level 176 MG/DL (< 200) LDL Cholesterol 108 mg/dL (<100) HDL Cholesterol 65 MG/DL (40-60) Cholesterol/HDL Ratio 2.7 (3.3-4.4) Thyroid Stimulating Hormone (TSH) 1.307 uiU/mL (0.358-3.740) EKG Diagnostic Results Rate: tachycardiac Rhythm: other ST Segments: no acute changes Rhythm Strip Diag. Results EP Interpretation: yes Rate: 66 Rhythm: NSR, no PVC's, no ectopy Chest X-Ray Diagnostic Results Chest X-Ray Diagnostic Results : Chest X-Ray Ordered: Yes # of Views/Limited/Complete: 1 View Indication: Chest Pain EP Interpretation: Yes Interpretation: no consolidation, no effusion, no pneumothorax Impression: No acute disease Electronically Signed by: Brittny Trujillo DO Last Vital Signs Date Time Temp Pulse Resp B/P (MAP) Pulse Ox O2 Delivery O2 Flow Rate FiO2 11/02/18 19:58 115 22 Room Air 11/02/18 19:48 98.6 159/140 100 Status: improved Disposition: ADMITTED INPATIENT Condition: Serious Referrals: Jessie Magana MD (PCP) Brittny Trujillo DO Nov 02, 2018 21:07
[2018-11-02 21:11] VITALS: BP 166/74
[2018-11-02 21:15] LABS: ANION GAP 8 mmol/L (5-15); BLOOD UREA NITROGEN 15 mg/dL (7-18); CALCIUM 8.7 MG/DL (8.5-10.1); CARBON DIOXIDE 26 MMOL/L (21-32); CHLORIDE 104 MMOL/L (98-107); CREATININE 1.3 MG/DL (0.55-1.30); POTASSIUM 4.1 MMOL/L (3.5-5.1); SODIUM 138 MMOL/L (136-145)
[2018-11-02] MEDS ORDERED: Ipratropium 0.02% Inh Soln 2.5ml UD HHN ONE (21:15)
[2018-11-02] MEDS ORDERED: Albuterol ud Inhalation HHN ONE (21:15)
[2018-11-02 21:24] LABS: ALANINE AMINOTRANSFERASE 19 U/L (12-78); ALBUMIN 3.7 G/DL (3.4-5.0); ALBUMIN/GLOBULIN RATIO 0.8 (1.0-2.7); ALKALINE PHOSPHATASE 140 U/L (46-116); ASPARTATE AMINO TRANSFERASE 19 U/L (15-37); BILIRUBIN,TOTAL 0.2 MG/DL (0.2-1.0); CKMB 2.4 NG/ML (0.0-3.6); CREATINE KINASE 205 U/L (26-308)
[2018-11-02 22:01] VITALS: BP 160/61
[2018-11-02 22:40] VITALS: BP 145/97
[2018-11-02] MEDS: Theophylline ER 100mg ORAL SCH (22:43)
[2018-11-03 04:00] VITALS: BP 136/67
[2018-11-03 07:16] LABS: BASOPHILS % (AUTO) 1.9 % (0.0-2.0); EOSINOPHILS % (AUTO) 7.4 % (0.0-3.0); HEMOGLOBIN 11.8 G/DL (14.2-18.0); LYMPHOCYTES % (AUTO) 40.1 % (20.0-45.0); MEAN CORPUSCULAR VOLUME 82 FL (80-99); MONOCYTES % (AUTO) 13.3 % (1.0-10.0); NEUTROPHILS % (AUTO) 37.3 % (45.0-75.0); PLATELET COUNT 268 K/UL (150-450); RED BLOOD COUNT 4.62 M/UL (4.70-6.10); RED CELL DISTRIBUTION WIDTH 17.1 % (11.6-14.8); WHITE BLOOD COUNT 5.9 K/UL (4.8-10.8)
[2018-11-03 07:17] LABS: CHOLESTEROL 176 MG/DL (< 200); HDL CHOLESTEROL 65 MG/DL (40-60); TRIGLYCERIDES 79 MG/DL (30-150)
[2018-11-03 08:00] VITALS: BP 132/74
[2018-11-03] MEDS: Albuterol/Ipratropium 3ml neb HHN PRN (08:25)
[2018-11-03] MEDS: Heparin 5000 units/ml inj SUBQ SCH ×3 (09:00→20:39)
[2018-11-03] MEDS: Theophylline ER 100mg ORAL SCH ×2 (09:38→20:38)
[2018-11-03] MEDS: Aspirin Baby 81mg ORAL SCH (09:38)
--- NOTE | 2018-11-03 10:33 | Consultation ---
History of Present Illness General Date patient seen: Nov 03, 2018 Chief Complaint: Chest Pain Present Illness HPI 67-year-old male with history of emphysema, Chronic foot ulcer, CAD with previous CABG presented with chief complaint of swelling of right leg, around calf area. Pt has a chronic ulcer in right ankle area. Denies any fever or chills. Denies any other complaint. No nausea no vomiting. Pt is chronically ill and cachectic with limited ADL's. Allergies: Coded Allergies: EGG (Verified Allergy, Unknown, 09/28/18) MEPERIDINE (Verified Allergy, Unknown, 09/28/18) MORPHINE (Verified Allergy, Unknown, 09/28/18) NITROGLYCERIN (Verified Allergy, Unknown, hives, 09/28/18) Medication History Scheduled Amlodipine Besylate* (Amlodipine Besylate*), 10 MG ORAL DAILY, (Reported) Aspirin* (Aspirin*), 325 MG ORAL DAILY, (Reported) Atorvastatin Calcium* (Atorvastatin Calcium*), 20 MG ORAL BEDTIME, (Reported) Clopidogrel* (Clopidogrel*), 75 MG ORAL DAILY, (Reported) Docusate Sodium* (Docusate Sodium*), 100 MG ORAL TWICE A DAY, (Reported) Hydromorphone Hcl (Hydromorphone Hcl), 8 MG PO Q6HR, (Reported) Levetiracetam (Keppra), 500 MG ORAL DAILY, (Reported) Metoprolol Succinate* (Metoprolol Succinate*), 50 MG ORAL BID, (Reported) Mirtazapine* (Remeron*), 15 MG ORAL BEDTIME, (Reported) Prednisone* (Prednisone*), 20 MG ORAL DAILY, (Reported) Prednisone* (Prednisone*), 50 MG ORAL DAILY, (Reported) Theophylline (Theodur*), 100 MG ORAL EVERY 12 HOURS Scheduled PRN Albuterol Sulfate (Ventolin Hfa), 1 PUFF INH EVERY 6 HOURS PRN Oxycodone Hcl* (Roxicodone*), 30 MG ORAL Q6H PRN for For Pain, (Reported) Patient History Healthcare decision maker Resuscitation status Full Code Advanced Directive on File No Past Medical/Surgical History Past Medical/Surgical History: (1) Emphysema lung (2) Decubitus ulcer, ankle, right, unstageable (3) CAD (coronary artery disease) (4) Hypothyroidism (5) Peripheral vascular disease (6) FTT (failure to thrive) in adult (7) Osteomyelitis of right leg (8) Nonhealing ulcer of right lower extremity Review of Systems All Other Systems: negative except mentioned in HPI Physical Exam General Appearance: cachetic Lines, tubes and drains: peripheral HEENT: normocephalic, atraumatic Neck: non-tender, normal alignment Respiratory/Chest: chest wall non-tender, lungs clear Cardiovascular/Chest: normal peripheral pulses Abdomen: normal bowel sounds Genitourinary/Rectal: normal genital exam Last 24 Hour Vital Signs Date Time Temp Pulse Resp B/P (MAP) Pulse Ox O2 Delivery O2 Flow Rate FiO2 11/03/18 09:38 91 132/74 11/03/18 08:32 91 16 99 Room Air 21 11/03/18 08:27 90 16 Room Air 21 11/03/18 08:25 90 16 95 Room Air 21 11/03/18 08:00 98.1 89 20 132/74 (93) 93 11/03/18 04:05 74 11/03/18 04:00 98.9 78 20 136/67 (90) 93 78 11/02/18 23:51 106 11/02/18 23:09 Room Air 11/02/18 22:40 98.2 99 20 145/97 (113) 98 99 11/02/18 22:17 98.6 88 19 160/61 100 Room Air 21 11/02/18 22:01 98.6 88 19 160/61 100 Room Air 21 11/02/18 21:29 88 19 100 Room Air 21 11/02/18 21:20 89 14 99 Room Air 21 11/02/18 21:20 89 14 Room Air 21 11/02/18 21:11 98.6 86 20 166/74 100 Room Air 11/02/18 20:54 98.6 11/02/18 19:58 115 22 Room Air 11/02/18 19:48 98.6 115 22 159/140 100 Room Air 11/02/18 19:43 98.6 123 20 248/116 91 Room Air Intake and Output 11/02/18 11/03/18 18:59 06:59 Intake Total 160 ml Balance 160 ml Intake Oral 160 ml # Voids 2 # Bowel Movements 1 Laboratory Tests Test 11/02/18 20:20 11/03/18 05:50 White Blood Count 8.1 K/UL (4.8-10.8) 5.9 K/UL (4.8-10.8) Red Blood Count 5.06 M/UL (4.70-6.10) 4.62 M/UL (4.70-6.10) L Hemoglobin 12.9 G/DL (14.2-18.0) L 11.8 G/DL (14.2-18.0) L Hematocrit 41.8 % (42.0-52.0) L 38.0 % (42.0-52.0) L Mean Corpuscular Volume 82 FL (80-99) 82 FL (80-99) Mean Corpuscular Hemoglobin 25.5 PG (27.0-31.0) L 25.5 PG (27.0-31.0) L Mean Corpuscular Hemoglobin Concent 30.9 G/DL (32.0-36.0) L 31.0 G/DL (32.0-36.0) L Red Cell Distribution Width 16.8 % (11.6-14.8) H 17.1 % (11.6-14.8) H Platelet Count 299 K/UL (150-450) 268 K/UL (150-450) Mean Platelet Volume 6.3 FL (6.5-10.1) L 6.0 FL (6.5-10.1) L Neutrophils (%) (Auto) 43.5 % (45.0-75.0) L 37.3 % (45.0-75.0) L Lymphocytes (%) (Auto) 34.9 % (20.0-45.0) 40.1 % (20.0-45.0) Monocytes (%) (Auto) 13.4 % (1.0-10.0) H 13.3 % (1.0-10.0) H Eosinophils (%) (Auto) 6.3 % (0.0-3.0) H 7.4 % (0.0-3.0) H Basophils (%) (Auto) 1.9 % (0.0-2.0) 1.9 % (0.0-2.0) Sodium Level 138 MMOL/L (136-145) Potassium Level 4.1 MMOL/L (3.5-5.1) Chloride Level 104 MMOL/L (98-107) Carbon Dioxide Level 26 MMOL/L (21-32) Anion Gap 8 mmol/L (5-15) Blood Urea Nitrogen 15 mg/dL (7-18) Creatinine 1.3 MG/DL (0.55-1.30) Estimat Glomerular Filtration Rate > 60 mL/min (>60) Glucose Level 97 MG/DL (74-106) Calcium Level 8.7 MG/DL (8.5-10.1) Total Bilirubin 0.2 MG/DL (0.2-1.0) Aspartate Amino Transf (AST/SGOT) 19 U/L (15-37) Alanine Aminotransferase (ALT/SGPT) 19 U/L (12-78) Alkaline Phosphatase 140 U/L (46-116) H Total Creatine Kinase 205 U/L (26-308) Creatine Kinase MB 2.4 NG/ML (0.0-3.6) Creatine Kinase MB Relative Index 1.1 Troponin I 0.008 ng/mL (0.000-0.056) 0.015 ng/mL (0.000-0.056) Pro-B-Type Natriuretic Peptide 1003 pg/mL (0-125) H Total Protein 8.4 G/DL (6.4-8.2) H Albumin 3.7 G/DL (3.4-5.0) Globulin 4.7 g/dL Albumin/Globulin Ratio 0.8 (1.0-2.7) L Prothrombin Time 10.2 SEC (9.30-11.50) Prothromb Time International Ratio 1.0 (0.9-1.1) Activated Partial Thromboplast Time 31 SEC (23-33) C-Reactive Protein, Quantitative 3.3 mg/dL (0.00-0.90) H Triglycerides Level 79 MG/DL (30-150) Cholesterol Level 176 MG/DL (< 200) LDL Cholesterol 108 mg/dL (<100) H HDL Cholesterol 65 MG/DL (40-60) H Cholesterol/HDL Ratio 2.7 (3.3-4.4) L Thyroid Stimulating Hormone (TSH) 1.307 uiU/mL (0.358-3.740) Height (Feet): 6 Height (Inches): 2.00 Weight (Pounds): 130 Medications Current Medications Medications (Trade) Dose Ordered Sig/Aminata Route PRN Reason Start Time Stop Time Status Last Admin Dose Admin Acetaminophen (Tylenol) 650 mg Q4H PRN ORAL FEVER 11/02/18 20:45 12/02/18 20:44 Albuterol/ Ipratropium (Albuterol/ Ipratropium) 3 ml Q4H PRN HHN Shortness of Breath 11/02/18 20:45 11/07/18 20:44 11/03/18 08:25 Amlodipine Besylate (Norvasc) 10 mg DAILY ORAL 11/03/18 09:00 12/03/18 08:59 11/03/18 09:38 Aspirin (ASA) 162 mg DAILY ORAL 11/03/18 09:00 12/03/18 08:59 11/03/18 09:38 Clopidogrel Bisulfate (Plavix) 75 mg DAILY ORAL 11/03/18 09:00 12/03/18 08:59 11/03/18 09:38 Diltiazem HCl (Cardizem) 10 mg Q1H PRN IV heart rate more than 120, 11/02/18 20:45 12/02/18 20:44 Enalaprilat (Vasotec) 2.5 mg Q6H PRN IV sbp more than 160 11/02/18 20:45 12/02/18 20:44 Heparin Sodium (Porcine) (Heparin 5000 units/ml) 5,000 units EVERY 12 HOURS SUBQ 11/03/18 09:00 12/03/18 08:59 Hydromorphone HCl (Dilaudid) 3 mg Q3H PRN IVP Severe Pain (Pain Scale 7-10) 11/03/18 12:15 11/09/18 21:14 Levetiracetam (Keppra) 500 mg DAILY ORAL 11/03/18 09:00 12/03/18 08:59 11/03/18 09:38 Mirtazapine (Remeron) 15 mg BEDTIME ORAL 11/02/18 21:00 12/02/18 20:59 11/02/18 21:17 Ondansetron HCl (Zofran) 4 mg Q6H PRN IVP Nausea & Vomiting 11/02/18 20:45 12/02/18 20:44 Polyethylene Glycol (Miralax) 17 gm DAILYPRN PRN ORAL Constipation 11/02/18 20:45 12/02/18 20:44 Temazepam (Restoril) 15 mg HSPRN PRN ORAL Insomnia 11/02/18 20:45 11/09/18 20:44 Theophylline (Wilfrido-Dur) 100 mg EVERY 12 HOURS ORAL 11/02/18 21:00 12/02/18 20:59 11/03/18 09:38 Assessment/Plan Problem List: (1) Nonhealing ulcer of right lower extremity ICD Codes: L97.919 - Non-pressure chronic ulcer of unspecified part of right lower leg with unspecified severity SNOMED: 44376414 (2) Severe protein-calorie malnutrition ICD Codes: E43 - Unspecified severe protein-calorie malnutrition SNOMED: 234609656 (3) Emphysema lung ICD Codes: J43.9 - Emphysema, unspecified SNOMED: 65302202 (4) CAD (coronary artery disease) ICD Codes: I25.10 - Atherosclerosis of coronary artery SNOMED: 726333195 (5) Hypothyroidism ICD Codes: E03.9 - Hypothyroidism, unspecified SNOMED: 73020028 (6) Peripheral vascular disease ICD Codes: I73.9 - Peripheral vascular disease, unspecified SNOMED: 648526318 (7) HTN (hypertension) ICD Codes: I10 - Hypertension SNOMED: 82635770 (8) FTT (failure to thrive) in adult ICD Codes: R62.7 - Adult failure to thrive SNOMED: 480981763 Assessment/Plan US of right leg ID evaluation symptomatic treatment dvt prophylaxis check electrolytes Jessie Magana MD Nov 03, 2018 10:33
--- NOTE | 2018-11-03 11:03 | Consultation ---
History of Present Illness General Date patient seen: Nov 03, 2018 Chief Complaint: Chest Pain Present Illness HPI 67 y/o M with hx of emphysema/COPD, CAD/[place] s/p CABG/ stents x2, chronic pain, s /p PPM, chronic leg ulcers, HTN, severe malnutrition, MDD, tobacco abuse, seizure disorder, chronic R>L edema, recurrent leg cellulitis,emphysema, DM2, bedbound, recurrent admissions (for CHF/COPD exacerbation, recurrent cellulitis ) presents to ED on 11/02 with SOB and R ankle pain and swelling with difficulty ambulation Last admitted mid September with COPD exacerbation. MRI fo RLE did not showed OM. Received 5 days of Doxycycline. Allergies: Coded Allergies: EGG (Verified Allergy, Unknown, 09/28/18) MEPERIDINE (Verified Allergy, Unknown, 09/28/18) MORPHINE (Verified Allergy, Unknown, 09/28/18) NITROGLYCERIN (Verified Allergy, Unknown, hives, 09/28/18) Medication History Scheduled Amlodipine Besylate* (Amlodipine Besylate*), 10 MG ORAL DAILY, (Reported) Aspirin* (Aspirin*), 325 MG ORAL DAILY, (Reported) Atorvastatin Calcium* (Atorvastatin Calcium*), 20 MG ORAL BEDTIME, (Reported) Clopidogrel* (Clopidogrel*), 75 MG ORAL DAILY, (Reported) Docusate Sodium* (Docusate Sodium*), 100 MG ORAL TWICE A DAY, (Reported) Hydromorphone Hcl (Hydromorphone Hcl), 8 MG PO Q6HR, (Reported) Levetiracetam (Keppra), 500 MG ORAL DAILY, (Reported) Metoprolol Succinate* (Metoprolol Succinate*), 50 MG ORAL BID, (Reported) Mirtazapine* (Remeron*), 15 MG ORAL BEDTIME, (Reported) Prednisone* (Prednisone*), 20 MG ORAL DAILY, (Reported) Prednisone* (Prednisone*), 50 MG ORAL DAILY, (Reported) Theophylline (Theodur*), 100 MG ORAL EVERY 12 HOURS Scheduled PRN Albuterol Sulfate (Ventolin Hfa), 1 PUFF INH EVERY 6 HOURS PRN Oxycodone Hcl* (Roxicodone*), 30 MG ORAL Q6H PRN for For Pain, (Reported) Patient History Healthcare decision maker Resuscitation status Full Code Advanced Directive on File No Patient History Narrative Pmhx: as above Shx: reviewed Fhx: non contributory Physical Exam Physical Exam Narrative General Appearance: cachetic Lines, tubes and drains: peripheral HEENT: normocephalic, atraumatic Neck: non-tender, normal alignment Respiratory/Chest: chest wall non-tender, lungs clear Cardiovascular/Chest: normal peripheral pulses. R leg swelling and TTP Abdomen: normal bowel sounds Last 24 Hour Vital Signs Date Time Temp Pulse Resp B/P (MAP) Pulse Ox O2 Delivery O2 Flow Rate FiO2 11/03/18 09:38 91 132/74 11/03/18 08:32 91 16 99 Room Air 21 11/03/18 08:27 90 16 Room Air 21 11/03/18 08:25 90 16 95 Room Air 21 11/03/18 08:00 98.1 89 20 132/74 (93) 93 11/03/18 04:05 74 11/03/18 04:00 98.9 78 20 136/67 (90) 93 78 11/02/18 23:51 106 11/02/18 23:09 Room Air 11/02/18 22:40 98.2 99 20 145/97 (113) 98 99 11/02/18 22:17 98.6 88 19 160/61 100 Room Air 21 11/02/18 22:01 98.6 88 19 160/61 100 Room Air 21 11/02/18 21:29 88 19 100 Room Air 21 11/02/18 21:20 89 14 99 Room Air 21 11/02/18 21:20 89 14 Room Air 21 11/02/18 21:11 98.6 86 20 166/74 100 Room Air 11/02/18 20:54 98.6 11/02/18 19:58 115 22 Room Air 11/02/18 19:48 98.6 115 22 159/140 100 Room Air 11/02/18 19:43 98.6 123 20 248/116 91 Room Air Intake and Output 11/02/18 11/03/18 19:00 07:00 Intake Total 160 ml Balance 160 ml Intake Oral 160 ml # Voids 2 # Bowel Movements 1 Laboratory Tests Test 11/02/18 20:20 11/03/18 05:50 White Blood Count 8.1 K/UL (4.8-10.8) 5.9 K/UL (4.8-10.8) Red Blood Count 5.06 M/UL (4.70-6.10) 4.62 M/UL (4.70-6.10) L Hemoglobin 12.9 G/DL (14.2-18.0) L 11.8 G/DL (14.2-18.0) L Hematocrit 41.8 % (42.0-52.0) L 38.0 % (42.0-52.0) L Mean Corpuscular Volume 82 FL (80-99) 82 FL (80-99) Mean Corpuscular Hemoglobin 25.5 PG (27.0-31.0) L 25.5 PG (27.0-31.0) L Mean Corpuscular Hemoglobin Concent 30.9 G/DL (32.0-36.0) L 31.0 G/DL (32.0-36.0) L Red Cell Distribution Width 16.8 % (11.6-14.8) H 17.1 % (11.6-14.8) H Platelet Count 299 K/UL (150-450) 268 K/UL (150-450) Mean Platelet Volume 6.3 FL (6.5-10.1) L 6.0 FL (6.5-10.1) L Neutrophils (%) (Auto) 43.5 % (45.0-75.0) L 37.3 % (45.0-75.0) L Lymphocytes (%) (Auto) 34.9 % (20.0-45.0) 40.1 % (20.0-45.0) Monocytes (%) (Auto) 13.4 % (1.0-10.0) H 13.3 % (1.0-10.0) H Eosinophils (%) (Auto) 6.3 % (0.0-3.0) H 7.4 % (0.0-3.0) H Basophils (%) (Auto) 1.9 % (0.0-2.0) 1.9 % (0.0-2.0) Sodium Level 138 MMOL/L (136-145) Potassium Level 4.1 MMOL/L (3.5-5.1) Chloride Level 104 MMOL/L (98-107) Carbon Dioxide Level 26 MMOL/L (21-32) Anion Gap 8 mmol/L (5-15) Blood Urea Nitrogen 15 mg/dL (7-18) Creatinine 1.3 MG/DL (0.55-1.30) Estimat Glomerular Filtration Rate > 60 mL/min (>60) Glucose Level 97 MG/DL (74-106) Calcium Level 8.7 MG/DL (8.5-10.1) Total Bilirubin 0.2 MG/DL (0.2-1.0) Aspartate Amino Transf (AST/SGOT) 19 U/L (15-37) Alanine Aminotransferase (ALT/SGPT) 19 U/L (12-78) Alkaline Phosphatase 140 U/L (46-116) H Total Creatine Kinase 205 U/L (26-308) Creatine Kinase MB 2.4 NG/ML (0.0-3.6) Creatine Kinase MB Relative Index 1.1 Troponin I 0.008 ng/mL (0.000-0.056) 0.015 ng/mL (0.000-0.056) Pro-B-Type Natriuretic Peptide 1003 pg/mL (0-125) H Total Protein 8.4 G/DL (6.4-8.2) H Albumin 3.7 G/DL (3.4-5.0) Globulin 4.7 g/dL Albumin/Globulin Ratio 0.8 (1.0-2.7) L Prothrombin Time 10.2 SEC (9.30-11.50) Prothromb Time International Ratio 1.0 (0.9-1.1) Activated Partial Thromboplast Time 31 SEC (23-33) C-Reactive Protein, Quantitative 3.3 mg/dL (0.00-0.90) H Triglycerides Level 79 MG/DL (30-150) Cholesterol Level 176 MG/DL (< 200) LDL Cholesterol 108 mg/dL (<100) H HDL Cholesterol 65 MG/DL (40-60) H Cholesterol/HDL Ratio 2.7 (3.3-4.4) L Thyroid Stimulating Hormone (TSH) 1.307 uiU/mL (0.358-3.740) Height (Feet): 6 Height (Inches): 2.00 Weight (Pounds): 130 Medications Current Medications Medications (Trade) Dose Ordered Sig/Aminata Route PRN Reason Start Time Stop Time Status Last Admin Dose Admin Acetaminophen (Tylenol) 650 mg Q4H PRN ORAL FEVER 12/10/18 20:45 12/02/18 20:44 Albuterol/ Ipratropium (Albuterol/ Ipratropium) 3 ml Q4H PRN HHN Shortness of Breath 11/02/18 20:45 11/07/18 20:44 11/03/18 08:25 Amlodipine Besylate (Norvasc) 10 mg DAILY ORAL 11/03/18 09:00 12/03/18 08:59 11/03/18 09:38 Aspirin (ASA) 162 mg DAILY ORAL 11/03/18 09:00 12/03/18 08:59 11/03/18 09:38 Clopidogrel Bisulfate (Plavix) 75 mg DAILY ORAL 11/03/18 09:00 12/03/18 08:59 11/03/18 09:38 Diltiazem HCl (Cardizem) 10 mg Q1H PRN IV heart rate more than 120, 11/02/18 20:45 12/02/18 20:44 Enalaprilat (Vasotec) 2.5 mg Q6H PRN IV sbp more than 160 11/02/18 20:45 12/02/18 20:44 Heparin Sodium (Porcine) (Heparin 5000 units/ml) 5,000 units EVERY 12 HOURS SUBQ 11/03/18 09:00 12/03/18 08:59 Hydromorphone HCl (Dilaudid) 3 mg Q3H PRN IVP Severe Pain (Pain Scale 7-10) 11/03/18 12:15 11/09/18 21:14 Levetiracetam (Keppra) 500 mg DAILY ORAL 11/03/18 09:00 12/03/18 08:59 11/03/18 09:38 Mirtazapine (Remeron) 15 mg BEDTIME ORAL 11/02/18 21:00 12/02/18 20:59 11/02/18 21:17 Ondansetron HCl (Zofran) 4 mg Q6H PRN IVP Nausea & Vomiting 11/02/18 20:45 12/02/18 20:44 Polyethylene Glycol (Miralax) 17 gm DAILYPRN PRN ORAL Constipation 11/02/18 20:45 12/02/18 20:44 Temazepam (Restoril) 15 mg HSPRN PRN ORAL Insomnia 11/02/18 20:45 11/09/18 20:44 Theophylline (Wilfrido-Dur) 100 mg EVERY 12 HOURS ORAL 11/02/18 21:00 12/02/18 20:59 11/03/18 09:38 Assessment/Plan Assessment/Plan Abx: None Assessment: Afebrile No leukocytosis R Leg swelling/pain, mild cellulitis- r/o DVT Hx of Chronic R leg ulcer; healing- no signs of infection 10/05 MRI : No definite evidence of osteomyelitis. emphysema/COPD CAD/[place] s/p CABG/ stents x2 chronic pain s/p PPM HTN severe malnutrition MDD tobacco abuse seizure disorder chronic R>L edema recurrent leg cellulitis DM2 bedbound recurrent admissions (for CHF/COPD exacerbation, recurrent cellulitis) Plan: -Start Keflex #1/ for mild cellulitis -10/04 SP Doxycycline orally day # 5 -f/u cx -MOnitor CBC/CMP, temperatures -wound care -f/u v. duplex Thank you for this consultation. Will continue to follow along with you. Discussed with Jessica Oneill M.D. Nov 03, 2018 11:03
--- NOTE | 2018-11-03 11:09 | Diagnostic Imaging Report ---
Indication: Chest pain Comparison: 10/05/2018 A single view chest radiograph was obtained. Findings: Cardiomediastinal appearance is within normal limits for age. Sternotomy again noted. The lungs are clear. Pulmonary vascularity is appropriate. The diaphragmatic contour is smooth and costophrenic angles are sharp. No pleural effusions are identified. The bones are unremarkable. Impression: No acute findings No significant change.
[2018-11-03 12:00] VITALS: BP 131/81
--- NOTE | 2018-11-03 12:26 | Consultation ---
History of Present Illness General Date patient seen: Nov 03, 2018 Chief Complaint: Chest Pain Present Illness HPI 67 y/o male with hx of emphysema/COPD, CAD/ID s/p CABG/ stents x2, chronic pain , s/p PPM, chronic leg ulcers, HTN, severe malnutrition, MDD, tobacco abuse, seizure disorder. The pt has long hx of opioid dependence and depression. the pt pw depressed mood, anhedonia and low energy. the pt stated that his appetite improved on Remeron but he is still depressed and anxious. No si/hi. Allergies: Coded Allergies: EGG (Verified Allergy, Unknown, 09/28/18) MEPERIDINE (Verified Allergy, Unknown, 09/28/18) MORPHINE (Verified Allergy, Unknown, 09/28/18) NITROGLYCERIN (Verified Allergy, Unknown, hives, 09/28/18) Medication History Scheduled Amlodipine Besylate* (Amlodipine Besylate*), 10 MG ORAL DAILY, (Reported) Aspirin* (Aspirin*), 325 MG ORAL DAILY, (Reported) Atorvastatin Calcium* (Atorvastatin Calcium*), 20 MG ORAL BEDTIME, (Reported) Clopidogrel* (Clopidogrel*), 75 MG ORAL DAILY, (Reported) Docusate Sodium* (Docusate Sodium*), 100 MG ORAL TWICE A DAY, (Reported) Hydromorphone Hcl (Hydromorphone Hcl), 8 MG PO Q6HR, (Reported) Levetiracetam (Keppra), 500 MG ORAL DAILY, (Reported) Metoprolol Succinate* (Metoprolol Succinate*), 50 MG ORAL BID, (Reported) Mirtazapine* (Remeron*), 15 MG ORAL BEDTIME, (Reported) Prednisone* (Prednisone*), 20 MG ORAL DAILY, (Reported) Prednisone* (Prednisone*), 50 MG ORAL DAILY, (Reported) Theophylline (Theodur*), 100 MG ORAL EVERY 12 HOURS Scheduled PRN Albuterol Sulfate (Ventolin Hfa), 1 PUFF INH EVERY 6 HOURS PRN Oxycodone Hcl* (Roxicodone*), 30 MG ORAL Q6H PRN for For Pain, (Reported) Patient History Limited by: medical condition History Provided By: Patient, Medical Record, PMD Healthcare decision maker Resuscitation status Full Code Advanced Directive on File No Past Medical/Surgical History Past Medical/Surgical History: (1) Emphysema lung (2) Decubitus ulcer, ankle, right, unstageable (3) ACS (acute coronary syndrome) (4) Esophagitis (5) Hyperkalemia (6) Shingles (7) CAD (coronary artery disease) (8) Hypothyroidism (9) Peripheral vascular disease (10) Acute bronchitis (11) ATN (acute tubular necrosis) (12) Pneumonia (13) HTN (hypertension) (14) Hepatitis C (15) COPD exacerbation (16) Acute on chronic renal failure (17) Hip dislocation, right (18) Osteomyelitis of right leg (19) Cellulitis of right leg (20) Chronic ulcer of right leg (21) Acute encephalopathy (22) Intractable back pain (23) Closed fracture of tibia and fibula with malunion (24) Costochondritis (25) Acute CHF (congestive heart failure) (26) Severe protein-calorie malnutrition Review of Systems Psychiatric: Reports: prior hx, anxiety, depressed feelings, emotional problems Physical Exam General Appearance: WD/WN, alert, cachetic Neurologic: alert, oriented x 3, responsive, depressed affect Last 24 Hour Vital Signs Date Time Temp Pulse Resp B/P (MAP) Pulse Ox O2 Delivery O2 Flow Rate FiO2 11/03/18 12:00 98.1 81 20 131/81 (98) 95 11/03/18 09:38 91 132/74 11/03/18 09:00 Room Air 11/03/18 08:32 91 16 99 Room Air 11/03/18 08:27 90 16 Room Air 11/03/18 08:25 90 16 95 Room Air 11/03/18 08:00 81 11/03/18 08:00 98.1 89 20 132/74 (93) 93 11/03/18 04:05 74 11/03/18 04:00 98.9 78 20 136/67 (90) 93 78 11/02/18 23:51 106 11/02/18 23:09 Room Air 11/02/18 22:40 98.2 99 20 145/97 (113) 98 99 11/02/18 22:17 98.6 88 19 160/61 100 Room Air 21 11/02/18 22:01 98.6 88 19 160/61 100 Room Air 21 11/02/18 21:29 88 19 100 Room Air 21 11/02/18 21:20 89 14 99 Room Air 21 11/02/18 21:20 89 14 Room Air 21 11/02/18 21:11 98.6 86 20 166/74 100 Room Air 11/02/18 20:54 98.6 11/02/18 19:58 115 22 Room Air 11/02/18 19:48 98.6 115 22 159/140 100 Room Air 11/02/18 19:43 98.6 123 20 248/116 91 Room Air Intake and Output 11/02/18 11/03/18 19:00 07:00 Intake Total 160 ml Balance 160 ml Intake Oral 160 ml # Voids 2 # Bowel Movements 1 Laboratory Tests Test 11/02/18 20:20 11/03/18 05:50 White Blood Count 8.1 K/UL (4.8-10.8) 5.9 K/UL (4.8-10.8) Red Blood Count 5.06 M/UL (4.70-6.10) 4.62 M/UL (4.70-6.10) L Hemoglobin 12.9 G/DL (14.2-18.0) L 11.8 G/DL (14.2-18.0) L Hematocrit 41.8 % (42.0-52.0) L 38.0 % (42.0-52.0) L Mean Corpuscular Volume 82 FL (80-99) 82 FL (80-99) Mean Corpuscular Hemoglobin 25.5 PG (27.0-31.0) L 25.5 PG (27.0-31.0) L Mean Corpuscular Hemoglobin Concent 30.9 G/DL (32.0-36.0) L 31.0 G/DL (32.0-36.0) L Red Cell Distribution Width 16.8 % (11.6-14.8) H 17.1 % (11.6-14.8) H Platelet Count 299 K/UL (150-450) 268 K/UL (150-450) Mean Platelet Volume 6.3 FL (6.5-10.1) L 6.0 FL (6.5-10.1) L Neutrophils (%) (Auto) 43.5 % (45.0-75.0) L 37.3 % (45.0-75.0) L Lymphocytes (%) (Auto) 34.9 % (20.0-45.0) 40.1 % (20.0-45.0) Monocytes (%) (Auto) 13.4 % (1.0-10.0) H 13.3 % (1.0-10.0) H Eosinophils (%) (Auto) 6.3 % (0.0-3.0) H 7.4 % (0.0-3.0) H Basophils (%) (Auto) 1.9 % (0.0-2.0) 1.9 % (0.0-2.0) Sodium Level 138 MMOL/L (136-145) Potassium Level 4.1 MMOL/L (3.5-5.1) Chloride Level 104 MMOL/L (98-107) Carbon Dioxide Level 26 MMOL/L (21-32) Anion Gap 8 mmol/L (5-15) Blood Urea Nitrogen 15 mg/dL (7-18) Creatinine 1.3 MG/DL (0.55-1.30) Estimat Glomerular Filtration Rate > 60 mL/min (>60) Glucose Level 97 MG/DL (74-106) Calcium Level 8.7 MG/DL (8.5-10.1) Total Bilirubin 0.2 MG/DL (0.2-1.0) Aspartate Amino Transf (AST/SGOT) 19 U/L (15-37) Alanine Aminotransferase (ALT/SGPT) 19 U/L (12-78) Alkaline Phosphatase 140 U/L (46-116) H Total Creatine Kinase 205 U/L (26-308) Creatine Kinase MB 2.4 NG/ML (0.0-3.6) Creatine Kinase MB Relative Index 1.1 Troponin I 0.008 ng/mL (0.000-0.056) 0.015 ng/mL (0.000-0.056) Pro-B-Type Natriuretic Peptide 1003 pg/mL (0-125) H Total Protein 8.4 G/DL (6.4-8.2) H Albumin 3.7 G/DL (3.4-5.0) Globulin 4.7 g/dL Albumin/Globulin Ratio 0.8 (1.0-2.7) L Prothrombin Time 10.2 SEC (9.30-11.50) Prothromb Time International Ratio 1.0 (0.9-1.1) Activated Partial Thromboplast Time 31 SEC (23-33) C-Reactive Protein, Quantitative 3.3 mg/dL (0.00-0.90) H Triglycerides Level 79 MG/DL (30-150) Cholesterol Level 176 MG/DL (< 200) LDL Cholesterol 108 mg/dL (<100) H HDL Cholesterol 65 MG/DL (40-60) H Cholesterol/HDL Ratio 2.7 (3.3-4.4) L Thyroid Stimulating Hormone (TSH) 1.307 uiU/mL (0.358-3.740) Height (Feet): 6 Height (Inches): 2.00 Weight (Pounds): 130 Medications Current Medications Medications (Trade) Dose Ordered Sig/Aminata Route PRN Reason Start Time Stop Time Status Last Admin Dose Admin Acetaminophen (Tylenol) 650 mg Q4H PRN ORAL FEVER 11/02/18 20:45 12/02/18 20:44 Albuterol/ Ipratropium (Albuterol/ Ipratropium) 3 ml Q4H PRN HHN Shortness of Breath 11/02/18 20:45 11/07/18 20:44 11/03/18 08:25 Amlodipine Besylate (Norvasc) 10 mg DAILY ORAL 11/03/18 09:00 12/03/18 08:59 11/03/18 09:38 Aspirin (ASA) 162 mg DAILY ORAL 11/03/18 09:00 12/03/18 08:59 11/03/18 09:38 Cephalexin (Keflex) 500 mg FOUR TIMES A DAY ORAL 11/03/18 13:00 11/07/18 23:59 Clopidogrel Bisulfate (Plavix) 75 mg DAILY ORAL 11/03/18 09:00 12/03/18 08:59 11/03/18 09:38 Diltiazem HCl (Cardizem) 10 mg Q1H PRN IV heart rate more than 120, 11/02/18 20:45 12/02/18 20:44 Enalaprilat (Vasotec) 2.5 mg Q6H PRN IV sbp more than 160 11/02/18 20:45 12/02/18 20:44 Heparin Sodium (Porcine) (Heparin 5000 units/ml) 5,000 units EVERY 12 HOURS SUBQ 11/03/18 09:00 12/03/18 08:59 Hydromorphone HCl (Dilaudid) 3 mg Q3H PRN IVP Severe Pain (Pain Scale 7-10) 11/03/18 12:15 11/09/18 21:14 Levetiracetam (Keppra) 500 mg DAILY ORAL 11/03/18 09:00 12/03/18 08:59 11/03/18 09:38 Mirtazapine (Remeron) 15 mg BEDTIME ORAL 11/02/18 21:00 12/02/18 20:59 11/02/18 21:17 Ondansetron HCl (Zofran) 4 mg Q6H PRN IVP Nausea & Vomiting 11/02/18 20:45 12/02/18 20:44 Polyethylene Glycol (Miralax) 17 gm DAILYPRN PRN ORAL Constipation 11/02/18 20:45 12/02/18 20:44 Temazepam (Restoril) 15 mg HSPRN PRN ORAL Insomnia 11/02/18 20:45 11/09/18 20:44 Theophylline (Wilfrido-Dur) 100 mg EVERY 12 HOURS ORAL 11/02/18 21:00 12/02/18 20:59 11/03/18 09:38 Assessment/Plan Problem List: (1) Major depression ICD Codes: F32.9 - Major depressive disorder, single episode, unspecified SNOMED: [id number] Qualifiers: Status: unchanged Assessment/Plan Remeron 30mg qhs provided ro/st MIPS Medication Reconciliation Is this a Psycho/Diag encounte: Yes Unhealthy Alcohol Use 431 (psycho/diag only) Patient was screened for unhealthy alcohol use today or within the past 2 years. Patient was NOT identified as an unhealthy alcohol user. Tobacco Use 226 (psycho/diag only) Patient was screened for tobacco use today or within the past 2 years. Patient was identified as a tobacco user and received cessation counseling. BMI 128 (psycho/diag only) BMI was documented today or within the past year. BMI was outside normal parameters, and the patient received counseling. Depression 134,411,370 (psycho/diag only) .Depression screening was performed today.Depression follow-up Plan Additional Evaluation Pharmacologic intervention Psychotherapy Other:I Obtained,updated or reviewed the patient's current medications ( including prescription,over the counter, herbal, and nutritional supplements). PHQ-9 Score: 20 Does this Patient have Dementi: Rachael Colby MD Nov 03, 2018 12:26
[2018-11-03] MEDS: Cephalexin 500mg cap ORAL SCH ×3 (13:56→20:38)
--- NOTE | 2018-11-03 14:41 | Cardiology Progress Note ---
Assessment/Plan Assessment/Plan chronic recurrent atypical chest pain hs of cad and cabg sternal wire exposure osteo ? will need thoracic surgery eval to see if wire can be removed here or [facility] [id number] Objective Last 24 Hour Vital Signs Date Time Temp Pulse Resp B/P (MAP) Pulse Ox O2 Delivery O2 Flow Rate FiO2 11/03/18 13:06 98.1 11/03/18 12:00 98.1 81 20 131/81 (98) 95 11/03/18 12:00 74 11/03/18 10:02 98.1 11/03/18 09:38 91 132/74 11/03/18 09:00 Room Air 11/03/18 08:32 91 16 99 Room Air 21 11/03/18 08:27 90 16 Room Air 21 11/03/18 08:25 90 16 95 Room Air 21 11/03/18 08:00 81 11/03/18 08:00 98.1 89 20 132/74 (93) 93 11/03/18 04:05 74 11/03/18 04:00 98.9 78 20 136/67 (90) 93 78 11/02/18 23:51 106 11/02/18 23:09 Room Air 11/02/18 22:40 98.2 99 20 145/97 (113) 98 99 11/02/18 22:17 98.6 88 19 160/61 100 Room Air 21 11/02/18 22:01 98.6 88 19 160/61 100 Room Air 21 11/02/18 21:29 88 19 100 Room Air 21 11/02/18 21:20 89 14 99 Room Air 21 11/02/18 21:20 89 14 Room Air 21 11/02/18 21:11 98.6 86 20 166/74 100 Room Air 11/02/18 20:54 98.6 11/02/18 19:58 115 22 Room Air 11/02/18 19:48 98.6 115 22 159/140 100 Room Air 11/02/18 19:43 98.6 123 20 248/116 91 Room Air Intake and Output 11/02/18 11/03/18 19:00 07:00 Intake Total 160 ml Balance 160 ml Intake Oral 160 ml # Voids 2 # Bowel Movements 1 Laboratory Tests Test 11/02/18 20:20 11/03/18 05:50 White Blood Count 8.1 K/UL (4.8-10.8) 5.9 K/UL (4.8-10.8) Red Blood Count 5.06 M/UL (4.70-6.10) 4.62 M/UL (4.70-6.10) L Hemoglobin 12.9 G/DL (14.2-18.0) L 11.8 G/DL (14.2-18.0) L Hematocrit 41.8 % (42.0-52.0) L 38.0 % (42.0-52.0) L Mean Corpuscular Volume 82 FL (80-99) 82 FL (80-99) Mean Corpuscular Hemoglobin 25.5 PG (27.0-31.0) L 25.5 PG (27.0-31.0) L Mean Corpuscular Hemoglobin Concent 30.9 G/DL (32.0-36.0) L 31.0 G/DL (32.0-36.0) L Red Cell Distribution Width 16.8 % (11.6-14.8) H 17.1 % (11.6-14.8) H Platelet Count 299 K/UL (150-450) 268 K/UL (150-450) Mean Platelet Volume 6.3 FL (6.5-10.1) L 6.0 FL (6.5-10.1) L Neutrophils (%) (Auto) 43.5 % (45.0-75.0) L 37.3 % (45.0-75.0) L Lymphocytes (%) (Auto) 34.9 % (20.0-45.0) 40.1 % (20.0-45.0) Monocytes (%) (Auto) 13.4 % (1.0-10.0) H 13.3 % (1.0-10.0) H Eosinophils (%) (Auto) 6.3 % (0.0-3.0) H 7.4 % (0.0-3.0) H Basophils (%) (Auto) 1.9 % (0.0-2.0) 1.9 % (0.0-2.0) Sodium Level 138 MMOL/L (136-145) Potassium Level 4.1 MMOL/L (3.5-5.1) Chloride Level 104 MMOL/L (98-107) Carbon Dioxide Level 26 MMOL/L (21-32) Anion Gap 8 mmol/L (5-15) Blood Urea Nitrogen 15 mg/dL (7-18) Creatinine 1.3 MG/DL (0.55-1.30) Estimat Glomerular Filtration Rate > 60 mL/min (>60) Glucose Level 97 MG/DL (74-106) Calcium Level 8.7 MG/DL (8.5-10.1) Total Bilirubin 0.2 MG/DL (0.2-1.0) Aspartate Amino Transf (AST/SGOT) 19 U/L (15-37) Alanine Aminotransferase (ALT/SGPT) 19 U/L (12-78) Alkaline Phosphatase 140 U/L (46-116) H Total Creatine Kinase 205 U/L (26-308) Creatine Kinase MB 2.4 NG/ML (0.0-3.6) Creatine Kinase MB Relative Index 1.1 Troponin I 0.008 ng/mL (0.000-0.056) 0.015 ng/mL (0.000-0.056) Pro-B-Type Natriuretic Peptide 1003 pg/mL (0-125) H Total Protein 8.4 G/DL (6.4-8.2) H Albumin 3.7 G/DL (3.4-5.0) Globulin 4.7 g/dL Albumin/Globulin Ratio 0.8 (1.0-2.7) L Prothrombin Time 10.2 SEC (9.30-11.50) Prothromb Time International Ratio 1.0 (0.9-1.1) Activated Partial Thromboplast Time 31 SEC (23-33) C-Reactive Protein, Quantitative 3.3 mg/dL (0.00-0.90) H Triglycerides Level 79 MG/DL (30-150) Cholesterol Level 176 MG/DL (< 200) LDL Cholesterol 108 mg/dL (<100) H HDL Cholesterol 65 MG/DL (40-60) H Cholesterol/HDL Ratio 2.7 (3.3-4.4) L Thyroid Stimulating Hormone (TSH) 1.307 uiU/mL (0.358-3.740) Sergio Anaya MD Nov 03, 2018 14:41
--- NOTE | 2018-11-03 15:11 | Cardiology Report ---
APPROVED REPORT EXAM: Two-dimensional and M-mode echocardiogram with Doppler and color Doppler. INDICATION LV FUNCTION M-Mode DIMENSIONS IVSd1.1 (0.7-1.1cm)Left Atrium (MM)2.7 (1.6-4.0cm) LVDd3.8 (3.5-5.6cm)Aortic Root3.4 (2.0-3.7cm) PWd1.3 (0.7-1.1cm)Aortic Cusp Exc.2.1 (1.5-2.0cm) IVSs2.2 cm LVDs2.0 (2.5-4.0cm) PWs1.3 cm Technically difficult study due to pt was verbally combative. Normal left ventricular chamber size, systolic function and wall motion to extent visualized. Left ventricular ejection fraction estimated to be 55-60 %. Moderate left ventricular hypertrophy. No evidence of pericardial effusion. All other cardiac chamber sizes are within normal limits. Focal aortic valve sclerosis with adequate cusp excursion. Heavily thickened mitral valve leaflets with normal excursion. Mitral annulus and aortic root calcification. Pulmonic valve not well visualized. Normal tricuspid valve structure. IVC dilated at 2.8cm without physiologic collapse suggestive of increased RA pressure. A color flow and spectral Doppler study was performed and revealed: Mild aortic regurgitation. Mild mitral regurgitation. Normal left ventricular diastolic function . Trace tricuspid regurgitation. Tricuspid systolic velocities suggests peak right ventricular systolic pressure of 22 mmHg.
--- NOTE | 2018-11-03 15:28 | Cardiology Report ---
APPROVED REPORT EKG Measurement Heart [id number] Sinus tachycardia with premature atrial complexes Possible Left atrial enlargement Cannot rule out Anterior infarct, age undetermined Abnormal ECG
[2018-11-03 20:00] VITALS: BP 138/90
--- NOTE | 2018-11-03 21:00 | History and Physical Report ---
DATE OF ADMISSION: 11/02/2018 BOBBIN SORTER: 1. Jessie Magana M.D. 2. Fabio Tracey D.O. CHIEF COMPLAINT: Chest pain, shortness of breath, acute congestive heart failure, chronic foot ulcer, and right leg DVT. BRIEF HISTORY: This is a 67-year-old male, who lives at home, presented with the above-mentioned diagnosis, admitted to telemetry for further care. Currently, slightly short of breath in bed. Slight general pain, no complaint. REVIEW OF SYSTEMS: Slight chest pain. Slight short of breath. No nausea, vomiting, or diarrhea. PAST MEDICAL HISTORY: Includes congestive heart failure, chronic foot ulcer on the right leg, history of right leg DVT, chronic pain, emphysema, chronic obstructive pulmonary disease, osteomyelitis, and hep C. PAST SURGICAL HISTORY: Right ankle. MEDICATIONS: Remeron, Keflex, Dilaudid, Norvasc, Plavix, Keppra, aspirin, heparin, theophylline, albuterol, MiraLAX, Zofran, Restoril, Vasotec, and Cardizem. ALLERGIES: Meperidine, morphine, and nitroglycerin. SOCIAL HISTORY: Positive smoking. No alcohol. No intravenous drug abuse. FAMILY HISTORY: Noncontributory. PHYSICAL EXAMINATION: GENERAL: Calm in bed, slight short of breath, oriented x3, and in no acute distress. VITAL SIGNS: Temperature is 98 degrees, pulse 80, respirations 20, and blood pressure 131/81. CARDIOVASCULAR: No murmur. LUNGS: Poor air exchange. Slight wheeze bilaterally. ABDOMEN: Bowel sounds positive. Nontender. Nondistended. EXTREMITIES: No cyanosis or clubbing. 1+ edema on the right. Right ankle deformity noted. Slight wound. NEURO: The patient moves all extremities, slightly weak. LABORATORY AND DIAGNOSTIC DATA: Hemoglobin 11.8, otherwise CBC is normal. BMP shows alkaline phosphatase 140. Troponin 0.008. BNP is 1003. Albumin 3.7. INR is 1.0. PTT is 31. ASSESSMENT: 1. Chest pain. 2. Congestive heart failure. 3. Anemia. 4. Chronic foot pain and ulcer. 5. Right leg deep venous thrombosis. 6. Emphysema. 7. Chronic pain. PLAN: 1. O2 and pulmonary treatment as needed. 2. Troponin q. 8h. x3. 3. EKG in a.m. 4. Cardiology followup. 5. Pain control. 6. Dietary followup. 7. CBC and BMP in the morning. Fabio Tracey D.O. DR: RAFITA JOB#: [id number] CC:
[2018-11-04] VITALS: BP 150/78
--- NOTE | 2018-11-04 02:15 | Consultation ---
DATE OF CONSULTATION: 11/03/2018 CARDIOLOGY CONSULTATION CONSULTING PHYSICIAN: Sergio Anaya M.D. REFERRING PHYSICIAN: . REASON FOR REFERRAL: Chest pain. HISTORY OF PRESENT ILLNESS: This is a 67-year-old gentleman with a history of coronary artery disease. The patient is known to me from prior multiple hospitalizations and evaluations, although I have not seen him over the past few months. The last time I saw him was in March of 2018. He has had several admissions to the hospital here. He tells me that over the past few months he has had problem with the sternal wire sticking out, and he has been referred to the thoracic surgeon supposedly had been scheduled for removal of sternal wire that was sticking out of the skin. That has not been occurring most recently. He was told that the procedure can be done here at [facility] by thoracic surgeon and he has been seen by one, not clear when that is. Nevertheless, he has pain related to that and he has also pain related to that is present all the time. He had chest pains for a number of years. Unfortunately, he does have underlying coronary artery disease and some atypical chest pain related to musculoskeletal or other etiologies as well. He presents with the chest pain. He has shortness of breath not with activity, but at rest. He uses three pillows that makes him feel comfortable. He does not have any dizziness or lightheadedness. He does not really have any heart pounding or palpitations. PAST MEDICAL HISTORY: Positive for history of multiple medical problems including history of COPD with exacerbation, hyperkalemia, renal insufficiency, myocardial infarction, stents, peripheral vascular disease, seizure disorder, hypothyroidism, hyperlipidemia, chronic ankle pressure ulcers, history of multiple hospitalizations because of chest pain, history of prior coronary artery bypass grafting, numerous episodes of chest pain, felt to be noncardiac, has chronic osteomyelitis of his lower extremities, diabetes mellitus, history of drug use, marijuana, opiates, peripheral vascular disease, hepatitis C, pulmonary hypertension, diastolic dysfunction, pancytopenia, history of hip dislocation back in 2014. ALLERGIES: Allergic to Dilaudid, nitroglycerin, and morphine. SOCIAL HISTORY: He quit smoking several years ago. Does not drink alcohol, but he does smoke. REVIEW OF SYSTEMS: GASTROINTESTINAL: He had nausea, vomiting, and diarrhea. No black or bloody stool. GENITOURINARY: Denies any burning on urination. PULMONARY: Denies any coughing or wheezing. CONSTITUTIONAL: No fevers, chills, or night sweats. PHYSICAL EXAMINATION: GENERAL: Shows to be elderly middle-aged gentleman in no respiratory distress. Somewhat drowsy during my conversation and seems to want to fall asleep easily although I did manage to keep him off. NECK: Supple. No jugular venous distention. LUNGS: Clear to auscultation and percussion. CARDIAC: Regular rate and rhythm. There is a sternal area, two areas of excoriation in the sternum, right to the left of the midline. The metallic structure is noted underneath the excoriated lesions on one of them consistent with a sternal wire that is visible. ABDOMEN: Soft and nontender. Positive bowel sounds. EXTREMITIES: There is deformity of the right ankle with some swelling and there is really no significant edema or induration. NEUROLOGICAL: She is arousable and awake and responsive. LABORATORY DATA: White count 5.9, hemoglobin 11.8, and platelet count 268,000. Sodium is 138, potassium 4.1, chloride 104, bicarb 26, BUN 15, creatinine 1.2, glucose of 97, and calcium is 8.7. Bilirubin 0.2. Alkaline phosphatase is 140. Troponin 0.08 and 0.15. CRP of 3.3. ProBNP is only 1003. Total protein 8.4 with a albumin of 3.7 and total cholesterol is 176 with LDL of 108 and HDL of 65 and triglycerides of 79. TSH of 1.37. Coags, INR was 1.0 and a PTT of 31. Tox screen drawn during this hospitalization previously positive for opiates and stool for occult blood. Chest x-ray shows cardiomediastinal silhouette to be within normal limits. Sternotomy is noted. Lungs are clear. Pulmonary vasculature is appropriate. Diaphragmatic is smooth. On my personal review of the chest x-ray, I do not see any fractured sternal wires in place. ASSESSMENT AND PLAN: 1. Chronic recurrent chest pain. 2. Visible foreign body in the left sternal area consistent with sternal wires. 3. Coronary artery disease, status post coronary artery bypass grafting and prior PCI. 4. COPD. 5. Chronic pain. 6. Osteomyelitis of lower extremity. PLAN: , this patient was seen in cardiac consultation. The patient is known to me. His chest pains are rather atypical as he had them previously, do not seem to be exertional at this time. I am not able to find an EKG in his chart, but I will order one. Echocardiogram has been performed, which I will attempt to review. Telemetry monitoring shows sinus rhythm, and however, I am not suspicious that this is the pain that he describes a coronary ischemic pain. He does have a protruding foreign body consistent probably with a sternal wire in the chest wall area. This probably should be removed because of the risk of infection. Thoracic surgery has evaluated the patient, but the thoracic surgeon's office in the [place], the question is whether thoracic surgery service here can see the patient and see if this procedure can be done here at [facility]. Apparently, he has been seen by 1 already here at this hospital. Sergio Anaya M.D. DR: BRIAN JOB#: [id number] CC:
[2018-11-04 04:00] VITALS: BP 153/81
[2018-11-04] MEDS: Cephalexin 500mg cap ORAL SCH ×4 (08:01→20:45)
[2018-11-04] MEDS: Aspirin Baby 81mg ORAL SCH (08:01)
[2018-11-04] MEDS: Theophylline ER 100mg ORAL SCH ×2 (08:01→20:45)
[2018-11-04] MEDS: Heparin 5000 units/ml inj SUBQ SCH ×2 (08:03→20:46)
[2018-11-04 08:54] VITALS: BP 142/76
[2018-11-04 09:33] LABS: BASOPHILS % (AUTO) 1.5 % (0.0-2.0); EOSINOPHILS % (AUTO) 12.1 % (0.0-3.0); HEMATOCRIT 42.3 % (42.0-52.0); HEMOGLOBIN 13.1 G/DL (14.2-18.0); LYMPHOCYTES % (AUTO) 30.1 % (20.0-45.0); MEAN CORPUSCULAR VOLUME 82 FL (80-99); MONOCYTES % (AUTO) 17.3 % (1.0-10.0); NEUTROPHILS % (AUTO) 39.1 % (45.0-75.0); PLATELET COUNT 280 K/UL (150-450); RED BLOOD COUNT 5.13 M/UL (4.70-6.10); RED CELL DISTRIBUTION WIDTH 16.9 % (11.6-14.8); WHITE BLOOD COUNT 5.8 K/UL (4.8-10.8)
[2018-11-04 09:56] LABS: ANION GAP 9 mmol/L (5-15); BLOOD UREA NITROGEN 11 mg/dL (7-18); CALCIUM 8.7 MG/DL (8.5-10.1); CARBON DIOXIDE 26 MMOL/L (21-32); CHLORIDE 104 MMOL/L (98-107); CREATININE 1.1 MG/DL (0.55-1.30); POTASSIUM 5.2 MMOL/L (3.5-5.1); SODIUM 139 MMOL/L (136-145)
--- NOTE | 2018-11-04 11:47 | Pulmonology Progress Note ---
Assessment/Plan Problems: (1) Severe protein-calorie malnutrition (2) Emphysema lung (3) CAD (coronary artery disease) (4) Hypothyroidism (5) Peripheral vascular disease (6) HTN (hypertension) Assessment/Plan symptomatic treatment pain management cardiac f/u respiratory treatment pt/ot wound care Subjective ROS Limited/Unobtainable: No Constitutional: Reports: no symptoms HEENT: Repors: no symptoms Allergies: Coded Allergies: EGG (Verified Allergy, Unknown, 09/28/18) MEPERIDINE (Verified Allergy, Unknown, 09/28/18) MORPHINE (Verified Allergy, Unknown, 09/28/18) NITROGLYCERIN (Verified Allergy, Unknown, hives, 09/28/18) Objective Last 24 Hour Vital Signs Date Time Temp Pulse Resp B/P (MAP) Pulse Ox O2 Delivery O2 Flow Rate FiO2 11/04/18 10:01 97.7 11/04/18 09:00 Room Air 11/04/18 08:54 97.7 83 18 142/76 (98) 98 11/04/18 08:01 89 142/74 11/04/18 08:00 88 11/04/18 07:53 80 18 Room Air 21 11/04/18 04:00 97.7 88 18 153/81 (105) 98 11/04/18 03:56 73 11/04/18 02:05 86 20 Room Air 21 11/04/18 00:08 74 11/04/18 00:00 97.2 83 20 150/78 (102) 94 11/03/18 21:00 Room Air 11/03/18 20:00 97.5 78 16 138/90 (106) 93 11/03/18 19:35 72 11/03/18 16:00 82 11/03/18 12:00 98.1 81 20 131/81 (98) 95 11/03/18 12:00 74 Intake and Output 11/03/18 11/04/18 19:00 07:00 Intake Total 420 ml 400 ml Output Total 800 ml Balance 420 ml -400 ml Intake Oral 420 ml 400 ml Output Urine Total 800 ml # Voids 1 HEENT: normocephalic, atraumatic Respiratory/Chest: chest wall non-tender, lungs clear Cardiovascular: normal peripheral pulses, normal rate Abdomen: normal bowel sounds, soft, non tender, no organomegaly Genitourinary: normal external genitalia Extremities: no cyanosis, no clubbing 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 Laboratory Tests 11/04/18 09:10: White Blood Count 5.8, Red Blood Count 5.13, Hemoglobin 13.1L, Hematocrit 42.3, Mean Corpuscular Volume 82, Mean Corpuscular Hemoglobin 25.6L, Mean Corpuscular Hemoglobin Concent 31.1L, Red Cell Distribution Width 16.9H, Platelet Count 280 , Mean Platelet Volume 7.3, Neutrophils (%) (Auto) 39.1L, Lymphocytes (%) (Auto ) 30.1, Monocytes (%) (Auto) 17.3H, Eosinophils (%) (Auto) 12.1H, Basophils (%) (Auto) 1.5, Sodium Level 139, Potassium Level 5.2H, Chloride Level 104, Carbon Dioxide Level 26, Anion Gap 9, Blood Urea Nitrogen 11, Creatinine 1.1, Estimat Glomerular Filtration Rate > 60, Glucose Level 86, Calcium Level 8.7, Thyroid Stimulating Hormone (TSH) 0.803, Free Thyroxine 1.08, Free Triiodothyronine 3.1 Current Medications Medications (Trade) Dose Ordered Sig/Aminata Route PRN Reason Start Time Stop Time Status Last Admin Dose Admin Acetaminophen (Tylenol) 650 mg Q4H PRN ORAL FEVER 11/02/18 20:45 12/02/18 20:44 Albuterol/ Ipratropium (Albuterol/ Ipratropium) 3 ml Q4H PRN HHN Shortness of Breath 11/02/18 20:45 11/07/18 20:44 11/03/18 08:25 Amlodipine Besylate (Norvasc) 10 mg DAILY ORAL 11/03/18 09:00 12/03/18 08:59 11/04/18 08:01 Aspirin (ASA) 162 mg DAILY ORAL 11/03/18 09:00 12/03/18 08:59 11/04/18 08:01 Cephalexin (Keflex) 500 mg FOUR TIMES A DAY ORAL 11/03/18 13:00 11/07/18 23:59 11/04/18 08:01 Clopidogrel Bisulfate (Plavix) 75 mg DAILY ORAL 11/03/18 09:00 12/03/18 08:59 11/04/18 08:01 Diltiazem HCl (Cardizem) 10 mg Q1H PRN IV heart rate more than 120, 11/02/18 20:45 12/02/18 20:44 Enalaprilat (Vasotec) 2.5 mg Q6H PRN IV sbp more than 160 11/02/18 20:45 12/02/18 20:44 Heparin Sodium (Porcine) (Heparin 5000 units/ml) 5,000 units EVERY 12 HOURS SUBQ 11/03/18 09:00 12/03/18 08:59 11/04/18 08:03 Hydromorphone HCl (Dilaudid) 3 mg Q3H PRN IVP Severe Pain (Pain Scale 7-10) 11/03/18 12:15 11/09/18 21:14 11/04/18 09:31 Levetiracetam (Keppra) 500 mg DAILY ORAL 11/03/18 09:00 12/03/18 08:59 11/04/18 08:02 Mirtazapine (Remeron) 30 mg BEDTIME ORAL 11/03/18 21:00 12/03/18 20:59 11/03/18 20:39 Ondansetron HCl (Zofran) 4 mg Q6H PRN IVP Nausea & Vomiting 11/02/18 20:45 12/02/18 20:44 Polyethylene Glycol (Miralax) 17 gm DAILYPRN PRN ORAL Constipation 11/02/18 20:45 12/02/18 20:44 Temazepam (Restoril) 15 mg HSPRN PRN ORAL Insomnia 11/02/18 20:45 11/09/18 20:44 Theophylline (Wilfrido-Dur) 100 mg EVERY 12 HOURS ORAL 11/02/18 21:00 12/02/18 20:59 11/04/18 08:01 Jessie Magana MD Nov 04, 2018 11:47
[2018-11-04 12:00] VITALS: BP 143/77
--- NOTE | 2018-11-04 12:41 | General Progress Note ---
Assessment/Plan Problem List: (1) Emphysema lung ICD Codes: J43.9 - Emphysema, unspecified SNOMED: 64482248 (2) Decubitus ulcer, ankle, right, unstageable ICD Codes: L89.510 - Pressure ulcer of right ankle, unstageable SNOMED: 106895516 (3) Peripheral vascular disease ICD Codes: I73.9 - Peripheral vascular disease, unspecified SNOMED: 832079266 (4) Acute CHF (congestive heart failure) ICD Codes: I50.9 - Heart failure, unspecified SNOMED: 77081771 (5) Intractable back pain ICD Codes: M54.9 - Dorsalgia, unspecified SNOMED: 776369899 Status: unchanged Assessment/Plan pt diet o2 pulm tx pain control cbc bmp am Subjective Constitutional: Reports: weakness Respiratory: Reports: shortness of breath Allergies: Coded Allergies: EGG (Verified Allergy, Unknown, 09/28/18) MEPERIDINE (Verified Allergy, Unknown, 09/28/18) MORPHINE (Verified Allergy, Unknown, 09/28/18) NITROGLYCERIN (Verified Allergy, Unknown, hives, 09/28/18) All Systems: reviewed and negative except above Subjective sl chest pain Objective Last 24 Hour Vital Signs Date Time Temp Pulse Resp B/P (MAP) Pulse Ox O2 Delivery O2 Flow Rate FiO2 11/04/18 10:01 97.7 11/04/18 09:00 Room Air 11/04/18 08:54 97.7 83 18 142/76 (98) 98 11/04/18 08:01 89 142/74 11/04/18 08:00 88 11/04/18 07:53 80 18 Room Air 21 11/04/18 04:00 97.7 88 18 153/81 (105) 98 11/04/18 03:56 73 11/04/18 02:05 86 20 Room Air 21 11/04/18 00:08 74 11/04/18 00:00 97.2 83 20 150/78 (102) 94 11/03/18 21:00 Room Air 11/03/18 20:00 97.5 78 16 138/90 (106) 93 11/03/18 19:35 72 11/03/18 16:00 82 Intake and Output 11/03/18 11/04/18 19:00 07:00 Intake Total 420 ml 400 ml Output Total 800 ml Balance 420 ml -400 ml Intake Oral 420 ml 400 ml Output Urine Total 800 ml # Voids 1 Laboratory Tests 11/04/18 09:10: White Blood Count 5.8, Red Blood Count 5.13, Hemoglobin 13.1L, Hematocrit 42.3, Mean Corpuscular Volume 82, Mean Corpuscular Hemoglobin 25.6L, Mean Corpuscular Hemoglobin Concent 31.1L, Red Cell Distribution Width 16.9H, Platelet Count 280 , Mean Platelet Volume 7.3, Neutrophils (%) (Auto) 39.1L, Lymphocytes (%) (Auto ) 30.1, Monocytes (%) (Auto) 17.3H, Eosinophils (%) (Auto) 12.1H, Basophils (%) (Auto) 1.5, Sodium Level 139, Potassium Level 5.2H, Chloride Level 104, Carbon Dioxide Level 26, Anion Gap 9, Blood Urea Nitrogen 11, Creatinine 1.1, Estimat Glomerular Filtration Rate > 60, Glucose Level 86, Calcium Level 8.7, Thyroid Stimulating Hormone (TSH) 0.803, Free Thyroxine 1.08, Free Triiodothyronine 3.1 Height (Feet): 6 Height (Inches): 2.00 Weight (Pounds): 146 General Appearance: lethargic EENT: normal ENT inspection Neck: normal alignment Cardiovascular: normal peripheral pulses, normal rate, regular rhythm Respiratory/Chest: chest wall non-tender, decreased breath sounds Abdomen: normal bowel sounds, non tender, soft Extremities: normal inspection Edema: 1+ Arm (L), 1+ Arm (R), 1+ Leg (L), 1+ Leg (R), 1+ Pedal (L), 1+ Pedal ( R), 1+ Generalized Edema: trace edema Neurologic: responsive, motor weakness Skin: normal pigmentation, warm/dry Fabio Tracey DO Nov 04, 2018 12:41
[2018-11-04] MEDS: Albuterol/Ipratropium 3ml neb HHN PRN (13:16)
[2018-11-04 16:00] VITALS: BP 138/77
--- NOTE | 2018-11-04 16:26 | Infectious Diseases Prog Note ---
Assessment/Plan Assessment/Plan Abx: None Assessment: Afebrile No leukocytosis R Leg swelling/pain, mild cellulitis -v/ duplex: no DVT Hx of Chronic R leg ulcer; healing- no signs of infection 10/05 MRI : No definite evidence of osteomyelitis. emphysema/COPD CAD/MO s/p CABG/ stents x2 chronic pain s/p PPM HTN severe malnutrition MDD tobacco abuse seizure disorder chronic R>L edema recurrent leg cellulitis DM2 bedbound recurrent admissions (for CHF/COPD exacerbation, recurrent cellulitis) Plan: -Cont Keflex #2/5 for mild cellulitis -10/04 SP Doxycycline orally day # 5 -f/u cx -MOnitor CBC/CMP, temperatures -wound care Thank you for this consultation. Will continue to follow along with you. Discussed with RN. Subjective Allergies: Coded Allergies: EGG (Verified Allergy, Unknown, 09/28/18) MEPERIDINE (Verified Allergy, Unknown, 09/28/18) MORPHINE (Verified Allergy, Unknown, 09/28/18) NITROGLYCERIN (Verified Allergy, Unknown, hives, 09/28/18) Subjective afebrile at RA Objective Vital Signs Last 24 Hour Vital Signs Date Time Temp Pulse Resp B/P (MAP) Pulse Ox O2 Delivery O2 Flow Rate FiO2 11/04/18 13:57 97.7 11/04/18 13:16 99 24 99 Room Air 21 11/04/18 12:00 97 11/04/18 12:00 97.5 84 18 143/77 (99) 98 11/04/18 09:00 Room Air 11/04/18 08:54 97.7 83 18 142/76 (98) 98 11/04/18 08:01 89 142/74 11/04/18 08:00 88 11/04/18 07:53 80 18 Room Air 21 11/04/18 04:00 97.7 88 18 153/81 (105) 98 11/04/18 03:56 73 11/04/18 02:05 86 20 Room Air 21 11/04/18 00:08 74 11/04/18 00:00 97.2 83 20 150/78 (102) 94 11/03/18 21:00 Room Air 11/03/18 20:00 97.5 78 16 138/90 (106) 93 11/03/18 19:35 72 Height (Feet): 6 Height (Inches): 2.00 Weight (Pounds): 146 Objective General Appearance: cachetic Lines, tubes and drains: peripheral HEENT: normocephalic, atraumatic Neck: non-tender, normal alignment Respiratory/Chest: chest wall non-tender, lungs clear Cardiovascular/Chest: normal peripheral pulses. R leg swelling and TTP Abdomen: normal bowel sounds Laboratory Tests Test 11/04/18 09:10 White Blood Count 5.8 K/UL (4.8-10.8) Red Blood Count 5.13 M/UL (4.70-6.10) Hemoglobin 13.1 G/DL (14.2-18.0) L Hematocrit 42.3 % (42.0-52.0) Mean Corpuscular Volume 82 FL (80-99) Mean Corpuscular Hemoglobin 25.6 PG (27.0-31.0) L Mean Corpuscular Hemoglobin Concent 31.1 G/DL (32.0-36.0) L Red Cell Distribution Width 16.9 % (11.6-14.8) H Platelet Count 280 K/UL (150-450) Mean Platelet Volume 7.3 FL (6.5-10.1) Neutrophils (%) (Auto) 39.1 % (45.0-75.0) L Lymphocytes (%) (Auto) 30.1 % (20.0-45.0) Monocytes (%) (Auto) 17.3 % (1.0-10.0) H Eosinophils (%) (Auto) 12.1 % (0.0-3.0) H Basophils (%) (Auto) 1.5 % (0.0-2.0) Sodium Level 139 MMOL/L (136-145) Potassium Level 5.2 MMOL/L (3.5-5.1) H Chloride Level 104 MMOL/L (98-107) Carbon Dioxide Level 26 MMOL/L (21-32) Anion Gap 9 mmol/L (5-15) Blood Urea Nitrogen 11 mg/dL (7-18) Creatinine 1.1 MG/DL (0.55-1.30) Estimat Glomerular Filtration Rate > 60 mL/min (>60) Glucose Level 86 MG/DL (74-106) Calcium Level 8.7 MG/DL (8.5-10.1) Thyroid Stimulating Hormone (TSH) 0.803 uiU/mL (0.358-3.740) Free Thyroxine 1.08 NG/DL (0.76-1.46) Free Triiodothyronine 3.1 pg/mL (2.3-4.2) Current Medications Medications (Trade) Dose Ordered Sig/Aminata Route PRN Reason Start Time Stop Time Status Last Admin Dose Admin Acetaminophen (Tylenol) 650 mg Q4H PRN ORAL FEVER 11/02/18 20:45 12/02/18 20:44 Albuterol/ Ipratropium (Albuterol/ Ipratropium) 3 ml Q4H PRN HHN Shortness of Breath 11/02/18 20:45 11/07/18 20:44 11/04/18 13:16 Amlodipine Besylate (Norvasc) 10 mg DAILY ORAL 11/03/18 09:00 12/03/18 08:59 11/04/18 08:01 Aspirin (ASA) 162 mg DAILY ORAL 11/03/18 09:00 12/03/18 08:59 11/04/18 08:01 Cephalexin (Keflex) 500 mg FOUR TIMES A DAY ORAL 11/03/18 13:00 11/07/18 23:59 11/04/18 13:26 Clopidogrel Bisulfate (Plavix) 75 mg DAILY ORAL 11/03/18 09:00 12/03/18 08:59 11/04/18 08:01 Diltiazem HCl (Cardizem) 10 mg Q1H PRN IV heart rate more than 120, 11/02/18 20:45 12/02/18 20:44 Enalaprilat (Vasotec) 2.5 mg Q6H PRN IV sbp more than 160 11/02/18 20:45 12/02/18 20:44 Heparin Sodium (Porcine) (Heparin 5000 units/ml) 5,000 units EVERY 12 HOURS SUBQ 11/03/18 09:00 12/03/18 08:59 11/04/18 08:03 Hydromorphone HCl (Dilaudid) 3 mg Q3H PRN IVP Severe Pain (Pain Scale 7-10) 11/03/18 12:15 11/09/18 21:14 11/04/18 13:27 Levetiracetam (Keppra) 500 mg DAILY ORAL 11/03/18 09:00 12/03/18 08:59 11/04/18 08:02 Mirtazapine (Remeron) 30 mg BEDTIME ORAL 11/03/18 21:00 12/03/18 20:59 11/03/18 20:39 Ondansetron HCl (Zofran) 4 mg Q6H PRN IVP Nausea & Vomiting 11/02/18 20:45 12/02/18 20:44 Polyethylene Glycol (Miralax) 17 gm DAILYPRN PRN ORAL Constipation 11/02/18 20:45 12/02/18 20:44 Temazepam (Restoril) 15 mg HSPRN PRN ORAL Insomnia 11/02/18 20:45 11/09/18 20:44 Theophylline (Wilfrido-Dur) 100 mg EVERY 12 HOURS ORAL 11/02/18 21:00 12/02/18 20:59 11/04/18 08:01 Jessica Parry M.D. Nov 04, 2018 16:26
[2018-11-04 20:00] VITALS: BP 158/72
--- NOTE | 2018-11-04 22:06 | Cardiology Progress Note ---
Assessment/Plan Assessment/Plan 1. Chronic recurrent chest pain. 2. Visible foreign body in the left sternal area consistent with sternal wires. 3. Coronary artery disease, status post coronary artery bypass grafting and prior PCI. 4. COPD. 5. Chronic pain. 6. Osteomyelitis of lower extremity. has sx still will need thoracic surgery referrral to deal with the esposed sternal wire [place] a [place] with that will d/s dr hicks if any thoracic surgeon here and perform this or need referral else where all torp neg Subjective Cardiovascular: Reports: chest pain Respiratory: Reports: shortness of breath Gastrointestinal/Abdominal: Denies: abdominal pain Genitourinary: Denies: burning Objective Last 24 Hour Vital Signs Date Time Temp Pulse Resp B/P (MAP) Pulse Ox O2 Delivery O2 Flow Rate FiO2 11/04/18 20:53 Room Air 11/04/18 19:36 85 18 Room Air 21 11/04/18 17:30 97.7 11/04/18 16:00 88 11/04/18 16:00 97.6 92 20 138/77 (97) 99 11/04/18 13:16 99 24 99 Room Air 21 11/04/18 12:00 97 11/04/18 12:00 97.5 84 18 143/77 (99) 98 11/04/18 09:00 Room Air 11/04/18 08:54 97.7 83 18 142/76 (98) 98 11/04/18 08:01 89 142/74 11/04/18 08:00 88 11/04/18 07:53 80 18 Room Air 21 11/04/18 04:00 97.7 88 18 153/81 (105) 98 11/04/18 03:56 73 11/04/18 02:05 86 20 Room Air 21 11/04/18 00:08 74 11/04/18 00:00 97.2 83 20 150/78 (102) 94 General Appearance: no apparent distress Neck: supple Cardiovascular: normal rate Respiratory/Chest: decreased breath sounds Abdomen: normal bowel sounds, non tender, soft Extremities: trace edema Intake and Output 11/03/18 11/04/18 19:00 07:00 Intake Total 420 ml 400 ml Output Total 800 ml Balance 420 ml -400 ml Intake Oral 420 ml 400 ml Output Urine Total 800 ml # Voids 1 Laboratory Tests Test 11/04/18 09:10 11/04/18 20:30 White Blood Count 5.8 K/UL (4.8-10.8) Red Blood Count 5.13 M/UL (4.70-6.10) Hemoglobin 13.1 G/DL (14.2-18.0) L Hematocrit 42.3 % (42.0-52.0) Mean Corpuscular Volume 82 FL (80-99) Mean Corpuscular Hemoglobin 25.6 PG (27.0-31.0) L Mean Corpuscular Hemoglobin Concent 31.1 G/DL (32.0-36.0) L Red Cell Distribution Width 16.9 % (11.6-14.8) H Platelet Count 280 K/UL (150-450) Mean Platelet Volume 7.3 FL (6.5-10.1) Neutrophils (%) (Auto) 39.1 % (45.0-75.0) L Lymphocytes (%) (Auto) 30.1 % (20.0-45.0) Monocytes (%) (Auto) 17.3 % (1.0-10.0) H Eosinophils (%) (Auto) 12.1 % (0.0-3.0) H Basophils (%) (Auto) 1.5 % (0.0-2.0) Sodium Level 139 MMOL/L (136-145) Potassium Level 5.2 MMOL/L (3.5-5.1) H Chloride Level 104 MMOL/L (98-107) Carbon Dioxide Level 26 MMOL/L (21-32) Anion Gap 9 mmol/L (5-15) Blood Urea Nitrogen 11 mg/dL (7-18) Creatinine 1.1 MG/DL (0.55-1.30) Estimat Glomerular Filtration Rate > 60 mL/min (>60) Glucose Level 86 MG/DL (74-106) Calcium Level 8.7 MG/DL (8.5-10.1) Thyroid Stimulating Hormone (TSH) 0.803 uiU/mL (0.358-3.740) Free Thyroxine 1.08 NG/DL (0.76-1.46) Free Triiodothyronine 3.1 pg/mL (2.3-4.2) Troponin I 0.000 ng/mL (0.000-0.056) Sergio Anaya MD Nov 04, 2018 22:06
[2018-11-05] VITALS: BP 153/69
[2018-11-05 04:00] VITALS: BP 153/71
[2018-11-05 08:00] VITALS: BP 151/80
[2018-11-05] MEDS: Heparin 5000 units/ml inj SUBQ SCH ×2 (08:12→21:00)
[2018-11-05] MEDS: Aspirin Baby 81mg ORAL SCH (08:13)
[2018-11-05] MEDS: Cephalexin 500mg cap ORAL SCH ×4 (08:13→21:13)
[2018-11-05] MEDS: Theophylline ER 100mg ORAL SCH ×2 (08:13→21:13)
[2018-11-05 08:38] LABS: BASOPHILS % (AUTO) 1.9 % (0.0-2.0); EOSINOPHILS % (AUTO) 9.7 % (0.0-3.0); HEMATOCRIT 38.2 % (42.0-52.0); HEMOGLOBIN 11.9 G/DL (14.2-18.0); LYMPHOCYTES % (AUTO) 31.8 % (20.0-45.0); MEAN CORPUSCULAR VOLUME 81 FL (80-99); MONOCYTES % (AUTO) 15.4 % (1.0-10.0); NEUTROPHILS % (AUTO) 41.2 % (45.0-75.0); PLATELET COUNT 299 K/UL (150-450); RED BLOOD COUNT 4.71 M/UL (4.70-6.10); RED CELL DISTRIBUTION WIDTH 16.2 % (11.6-14.8); WHITE BLOOD COUNT 5.1 K/UL (4.8-10.8)
[2018-11-05 09:00] LABS: ANION GAP 7 mmol/L (5-15); BLOOD UREA NITROGEN 18 mg/dL (7-18); CALCIUM 8.5 MG/DL (8.5-10.1); CARBON DIOXIDE 26 MMOL/L (21-32); CHLORIDE 103 MMOL/L (98-107); CREATININE 1.3 MG/DL (0.55-1.30); POTASSIUM 4.8 MMOL/L (3.5-5.1); SODIUM 136 MMOL/L (136-145)
--- NOTE | 2018-11-05 11:09 | Infectious Diseases Prog Note ---
Assessment/Plan Assessment/Plan Abx: None Assessment: Afebrile No leukocytosis R Leg swelling/pain, mild cellulitis -v/ duplex: no DVT Hx of Chronic R leg ulcer; healing- no signs of infection 10/05 MRI : No definite evidence of osteomyelitis. emphysema/COPD CAD/MA s/p CABG/ stents x2 chronic pain s/p PPM HTN severe malnutrition MDD tobacco abuse seizure disorder chronic R>L edema recurrent leg cellulitis DM2 bedbound recurrent admissions (for CHF/COPD exacerbation, recurrent cellulitis) Plan: -Cont Keflex #3/5 for mild cellulitis -10/04 SP Doxycycline orally day # 5 -f/u cx -MOnitor CBC/CMP, temperatures -wound care Thank you for this consultation. Will continue to follow along with you. Discussed with RN. Subjective Allergies: Coded Allergies: EGG (Verified Allergy, Unknown, 09/28/18) MEPERIDINE (Verified Allergy, Unknown, 09/28/18) MORPHINE (Verified Allergy, Unknown, 09/28/18) NITROGLYCERIN (Verified Allergy, Unknown, hives, 09/28/18) Subjective afebrile at RA swelling somewaht improved Objective Vital Signs Last 24 Hour Vital Signs Date Time Temp Pulse Resp B/P (MAP) Pulse Ox O2 Delivery O2 Flow Rate FiO2 11/05/18 09:00 Room Air 11/05/18 08:44 97.7 11/05/18 08:16 97 151/80 11/05/18 08:00 98.2 97 20 151/80 (103) 94 11/05/18 08:00 93 11/05/18 04:00 97.7 80 18 153/71 (98) 95 11/05/18 04:00 82 11/05/18 00:00 99 11/05/18 00:00 98.0 84 18 153/69 (97) 94 11/04/18 20:53 Room Air 11/04/18 20:00 99 11/04/18 20:00 98.1 94 18 158/72 (100) 94 11/04/18 19:36 85 18 Room Air 21 11/04/18 16:00 88 11/04/18 16:00 97.6 92 20 138/77 (97) 99 11/04/18 13:16 99 24 99 Room Air 21 11/04/18 12:00 97 11/04/18 12:00 97.5 84 18 143/77 (99) 98 Height (Feet): 6 Height (Inches): 2.00 Weight (Pounds): 146 Objective General Appearance: cachetic Lines, tubes and drains: peripheral HEENT: normocephalic, atraumatic Neck: non-tender, normal alignment Respiratory/Chest: chest wall non-tender, lungs clear Cardiovascular/Chest: normal peripheral pulses. R leg swelling and TTP Abdomen: normal bowel sounds Laboratory Tests Test 11/04/18 20:30 11/05/18 08:30 Troponin I 0.000 ng/mL (0.000-0.056) White Blood Count 5.1 K/UL (4.8-10.8) Red Blood Count 4.71 M/UL (4.70-6.10) Hemoglobin 11.9 G/DL (14.2-18.0) L Hematocrit 38.2 % (42.0-52.0) L Mean Corpuscular Volume 81 FL (80-99) Mean Corpuscular Hemoglobin 25.3 PG (27.0-31.0) L Mean Corpuscular Hemoglobin Concent 31.1 G/DL (32.0-36.0) L Red Cell Distribution Width 16.2 % (11.6-14.8) H Platelet Count 299 K/UL (150-450) Mean Platelet Volume 6.7 FL (6.5-10.1) Neutrophils (%) (Auto) 41.2 % (45.0-75.0) L Lymphocytes (%) (Auto) 31.8 % (20.0-45.0) Monocytes (%) (Auto) 15.4 % (1.0-10.0) H Eosinophils (%) (Auto) 9.7 % (0.0-3.0) H Basophils (%) (Auto) 1.9 % (0.0-2.0) Sodium Level 136 MMOL/L (136-145) Potassium Level 4.8 MMOL/L (3.5-5.1) Chloride Level 103 MMOL/L (98-107) Carbon Dioxide Level 26 MMOL/L (21-32) Anion Gap 7 mmol/L (5-15) Blood Urea Nitrogen 18 mg/dL (7-18) Creatinine 1.3 MG/DL (0.55-1.30) Estimat Glomerular Filtration Rate > 60 mL/min (>60) Glucose Level 102 MG/DL (74-106) Calcium Level 8.5 MG/DL (8.5-10.1) Current Medications Medications (Trade) Dose Ordered Sig/Aminata Route PRN Reason Start Time Stop Time Status Last Admin Dose Admin Acetaminophen (Tylenol) 650 mg Q4H PRN ORAL FEVER 11/02/18 20:45 12/02/18 20:44 Albuterol/ Ipratropium (Albuterol/ Ipratropium) 3 ml Q4H PRN HHN Shortness of Breath 11/02/18 20:45 11/07/18 20:44 11/04/18 13:16 Amlodipine Besylate (Norvasc) 10 mg DAILY ORAL 11/03/18 09:00 12/03/18 08:59 11/05/18 08:16 Aspirin (ASA) 162 mg DAILY ORAL 11/03/18 09:00 12/03/18 08:59 11/05/18 08:13 Atorvastatin Calcium (Lipitor) 10 mg BEDTIME ORAL 11/04/18 22:15 12/04/18 22:14 11/04/18 22:31 Cephalexin (Keflex) 500 mg FOUR TIMES A DAY ORAL 11/03/18 13:00 11/07/18 23:59 11/05/18 08:13 Clopidogrel Bisulfate (Plavix) 75 mg DAILY ORAL 11/03/18 09:00 12/03/18 08:59 11/05/18 08:12 Diltiazem HCl (Cardizem) 10 mg Q1H PRN IV heart rate more than 120, 11/02/18 20:45 12/02/18 20:44 Enalaprilat (Vasotec) 2.5 mg Q6H PRN IV sbp more than 160 11/02/18 20:45 12/02/18 20:44 Heparin Sodium (Porcine) (Heparin 5000 units/ml) 5,000 units EVERY 12 HOURS SUBQ 11/03/18 09:00 12/03/18 08:59 11/04/18 08:03 Hydromorphone HCl (Dilaudid) 3 mg Q3H PRN IVP Severe Pain (Pain Scale 7-10) 11/03/18 12:15 11/09/18 21:14 11/05/18 08:14 Levetiracetam (Keppra) 500 mg DAILY ORAL 11/03/18 09:00 12/03/18 08:59 11/05/18 08:13 Mirtazapine (Remeron) 30 mg BEDTIME ORAL 11/03/18 21:00 12/03/18 20:59 11/03/18 20:39 Ondansetron HCl (Zofran) 4 mg Q6H PRN IVP Nausea & Vomiting 11/02/18 20:45 12/02/18 20:44 Polyethylene Glycol (Miralax) 17 gm DAILYPRN PRN ORAL Constipation 11/02/18 20:45 12/02/18 20:44 Temazepam (Restoril) 15 mg HSPRN PRN ORAL Insomnia 11/02/18 20:45 11/09/18 20:44 Theophylline (Wilfrido-Dur) 100 mg EVERY 12 HOURS ORAL 11/02/18 21:00 12/02/18 20:59 11/05/18 08:13 Jessica Parry M.D. Nov 05, 2018 11:09
--- NOTE | 2018-11-05 11:51 | Pulmonology Progress Note ---
Assessment/Plan Problems: (1) Severe protein-calorie malnutrition (2) Emphysema lung (3) CAD (coronary artery disease) (4) Hypothyroidism (5) Peripheral vascular disease (6) HTN (hypertension) Assessment/Plan left leg/calf still swollen symptomatic treatment pain management cardiac f/u appreciated respiratory treatment pt/ot wound care Subjective ROS Limited/Unobtainable: No Constitutional: Reports: no symptoms HEENT: Repors: no symptoms Respiratory: Reports: no symptoms Allergies: Coded Allergies: EGG (Verified Allergy, Unknown, 09/28/18) MEPERIDINE (Verified Allergy, Unknown, 09/28/18) MORPHINE (Verified Allergy, Unknown, 09/28/18) NITROGLYCERIN (Verified Allergy, Unknown, hives, 09/28/18) Objective Last 24 Hour Vital Signs Date Time Temp Pulse Resp B/P (MAP) Pulse Ox O2 Delivery O2 Flow Rate FiO2 11/05/18 09:00 Room Air 11/05/18 08:44 97.7 11/05/18 08:16 97 151/80 11/05/18 08:00 98.2 97 20 151/80 (103) 94 11/05/18 08:00 93 11/05/18 04:00 97.7 80 18 153/71 (98) 95 11/05/18 04:00 82 11/05/18 00:00 99 11/05/18 00:00 98.0 84 18 153/69 (97) 94 11/04/18 20:53 Room Air 11/04/18 20:00 99 11/04/18 20:00 98.1 94 18 158/72 (100) 94 11/04/18 19:36 85 18 Room Air 21 11/04/18 16:00 88 11/04/18 16:00 97.6 92 20 138/77 (97) 99 11/04/18 13:16 99 24 99 Room Air 21 11/04/18 12:00 97 11/04/18 12:00 97.5 84 18 143/77 (99) 98 Intake and Output 11/04/18 11/05/18 19:00 07:00 Intake Total 600 ml Output Total 875 ml 1200 ml Balance -275 ml -1200 ml Intake Oral 600 ml Output Urine Total 875 ml 1200 ml General Appearance: cachetic HEENT: normocephalic, atraumatic Respiratory/Chest: chest wall non-tender Cardiovascular: normal peripheral pulses Abdomen: normal bowel sounds Laboratory Tests 11/04/18 20:30: Troponin I 0.000 11/05/18 08:30: White Blood Count 5.1, Red Blood Count 4.71, Hemoglobin 11.9L, Hematocrit 38.2L , Mean Corpuscular Volume 81, Mean Corpuscular Hemoglobin 25.3L, Mean Corpuscular Hemoglobin Concent 31.1L, Red Cell Distribution Width 16.2H, Platelet Count 299, Mean Platelet Volume 6.7, Neutrophils (%) (Auto) 41.2L, Lymphocytes (%) (Auto) 31.8, Monocytes (%) (Auto) 15.4H, Eosinophils (%) (Auto) 9.7H, Basophils (%) (Auto) 1.9, Sodium Level 136, Potassium Level 4.8, Chloride Level 103, Carbon Dioxide Level 26, Anion Gap 7, Blood Urea Nitrogen 18, Creatinine 1.3, Estimat Glomerular Filtration Rate > 60, Glucose Level 102, Calcium Level 8.5 Current Medications Medications (Trade) Dose Ordered Sig/Aminata Route PRN Reason Start Time Stop Time Status Last Admin Dose Admin Acetaminophen (Tylenol) 650 mg Q4H PRN ORAL FEVER 11/02/18 20:45 12/02/18 20:44 Albuterol/ Ipratropium (Albuterol/ Ipratropium) 3 ml Q4H PRN HHN Shortness of Breath 11/02/18 20:45 11/07/18 20:44 11/04/18 13:16 Amlodipine Besylate (Norvasc) 10 mg DAILY ORAL 11/03/18 09:00 12/03/18 08:59 11/05/18 08:16 Aspirin (ASA) 162 mg DAILY ORAL 11/03/18 09:00 12/03/18 08:59 11/05/18 08:13 Atorvastatin Calcium (Lipitor) 10 mg BEDTIME ORAL 11/04/18 22:15 12/04/18 22:14 11/04/18 22:31 Cephalexin (Keflex) 500 mg FOUR TIMES A DAY ORAL 11/03/18 13:00 11/07/18 23:59 11/05/18 08:13 Clopidogrel Bisulfate (Plavix) 75 mg DAILY ORAL 11/03/18 09:00 12/03/18 08:59 11/05/18 08:12 Diltiazem HCl (Cardizem) 10 mg Q1H PRN IV heart rate more than 120, 11/02/18 20:45 12/02/18 20:44 Enalaprilat (Vasotec) 2.5 mg Q6H PRN IV sbp more than 160 11/02/18 20:45 12/02/18 20:44 Heparin Sodium (Porcine) (Heparin 5000 units/ml) 5,000 units EVERY 12 HOURS SUBQ 11/03/18 09:00 12/03/18 08:59 11/04/18 08:03 Hydromorphone HCl (Dilaudid) 3 mg Q3H PRN IVP Severe Pain (Pain Scale 7-10) 11/03/18 12:15 11/09/18 21:14 11/05/18 11:26 Levetiracetam (Keppra) 500 mg DAILY ORAL 11/03/18 09:00 12/03/18 08:59 11/05/18 08:13 Mirtazapine (Remeron) 30 mg BEDTIME ORAL 11/03/18 21:00 12/03/18 20:59 11/03/18 20:39 Ondansetron HCl (Zofran) 4 mg Q6H PRN IVP Nausea & Vomiting 11/02/18 20:45 12/02/18 20:44 Polyethylene Glycol (Miralax) 17 gm DAILYPRN PRN ORAL Constipation 11/02/18 20:45 12/02/18 20:44 Temazepam (Restoril) 15 mg HSPRN PRN ORAL Insomnia 11/02/18 20:45 11/09/18 20:44 Theophylline (Wilfrido-Dur) 100 mg EVERY 12 HOURS ORAL 11/02/18 21:00 12/02/18 20:59 11/05/18 08:13 Jessie Magana MD Nov 05, 2018 11:51
[2018-11-05 12:00] VITALS: BP 145/73
--- NOTE | 2018-11-05 12:22 | General Progress Note ---
Assessment/Plan Problem List: (1) Major depression ICD Codes: F32.9 - Major depressive disorder, single episode, unspecified SNOMED: 084392321 Qualifiers: Status: stable, progressing Assessment/Plan Remeron 30mg qhs provided ro/st Subjective 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: Reports: anxiety, depressed, emotional problems Allergies: Coded Allergies: EGG (Verified Allergy, Unknown, 09/28/18) MEPERIDINE (Verified Allergy, Unknown, 09/28/18) MORPHINE (Verified Allergy, Unknown, 09/28/18) NITROGLYCERIN (Verified Allergy, Unknown, hives, 09/28/18) Objective Last 24 Hour Vital Signs Date Time Temp Pulse Resp B/P (MAP) Pulse Ox O2 Delivery O2 Flow Rate FiO2 11/05/18 12:00 97.9 96 22 145/73 (97) 95 11/05/18 11:56 97.9 11/05/18 09:00 Room Air 11/05/18 08:16 97 151/80 11/05/18 08:00 98.2 97 20 151/80 (103) 94 11/05/18 08:00 93 11/05/18 04:00 97.7 80 18 153/71 (98) 95 11/05/18 04:00 82 11/05/18 00:00 99 11/05/18 00:00 98.0 84 18 153/69 (97) 94 11/04/18 20:53 Room Air 11/04/18 20:00 99 11/04/18 20:00 98.1 94 18 158/72 (100) 94 11/04/18 19:36 85 18 Room Air 21 11/04/18 16:00 88 11/04/18 16:00 97.6 92 20 138/77 (97) 99 11/04/18 13:16 99 24 99 Room Air 21 Intake and Output 11/04/18 11/05/18 19:00 07:00 Intake Total 600 ml Output Total 875 ml 1200 ml Balance -275 ml -1200 ml Intake Oral 600 ml Output Urine Total 875 ml 1200 ml Laboratory Tests 11/04/18 20:30: Troponin I 0.000 11/05/18 08:30: White Blood Count 5.1, Red Blood Count 4.71, Hemoglobin 11.9L, Hematocrit 38.2L , Mean Corpuscular Volume 81, Mean Corpuscular Hemoglobin 25.3L, Mean Corpuscular Hemoglobin Concent 31.1L, Red Cell Distribution Width 16.2H, Platelet Count 299, Mean Platelet Volume 6.7, Neutrophils (%) (Auto) 41.2L, Lymphocytes (%) (Auto) 31.8, Monocytes (%) (Auto) 15.4H, Eosinophils (%) (Auto) 9.7H, Basophils (%) (Auto) 1.9, Sodium Level 136, Potassium Level 4.8, Chloride Level 103, Carbon Dioxide Level 26, Anion Gap 7, Blood Urea Nitrogen 18, Creatinine 1.3, Estimat Glomerular Filtration Rate > 60, Glucose Level 102, Calcium Level 8.5 Height (Feet): 6 Height (Inches): 2.00 Weight (Pounds): 146 General Appearance: alert Neurologic: oriented x 3, responsive, depressed affect Rachael Buckley MD Nov 05, 2018 12:22
--- NOTE | 2018-11-05 13:47 | General Progress Note ---
Assessment/Plan Problem List: (1) Emphysema lung ICD Codes: J43.9 - Emphysema, unspecified SNOMED: 14360614 (2) Decubitus ulcer, ankle, right, unstageable ICD Codes: L89.510 - Pressure ulcer of right ankle, unstageable SNOMED: 480298810 (3) Peripheral vascular disease ICD Codes: I73.9 - Peripheral vascular disease, unspecified SNOMED: 773476863 (4) Acute CHF (congestive heart failure) ICD Codes: I50.9 - Heart failure, unspecified SNOMED: 72116639 (5) Intractable back pain ICD Codes: M54.9 - Dorsalgia, unspecified SNOMED: 889491487 Status: unchanged Assessment/Plan pt diet o2 pulm tx pain control cbc bmp am Subjective Constitutional: Reports: weakness Respiratory: Reports: shortness of breath Allergies: Coded Allergies: EGG (Verified Allergy, Unknown, 09/28/18) MEPERIDINE (Verified Allergy, Unknown, 09/28/18) MORPHINE (Verified Allergy, Unknown, 09/28/18) NITROGLYCERIN (Verified Allergy, Unknown, hives, 09/28/18) All Systems: reviewed and negative except above Subjective sl chest pain Objective Last 24 Hour Vital Signs Date Time Temp Pulse Resp B/P (MAP) Pulse Ox O2 Delivery O2 Flow Rate FiO2 11/05/18 12:00 97.9 96 22 145/73 (97) 95 11/05/18 12:00 108 11/05/18 11:56 97.9 11/05/18 09:00 Room Air 11/05/18 08:16 97 151/80 11/05/18 08:00 98.2 97 20 151/80 (103) 94 11/05/18 08:00 93 11/05/18 04:00 97.7 80 18 153/71 (98) 95 11/05/18 04:00 82 11/05/18 00:00 99 11/05/18 00:00 98.0 84 18 153/69 (97) 94 11/04/18 20:53 Room Air 11/04/18 20:00 99 11/04/18 20:00 98.1 94 18 158/72 (100) 94 11/04/18 19:36 85 18 Room Air 21 11/04/18 16:00 88 11/04/18 16:00 97.6 92 20 138/77 (97) 99 Intake and Output 11/04/18 11/05/18 19:00 07:00 Intake Total 600 ml Output Total 875 ml 1200 ml Balance -275 ml -1200 ml Intake Oral 600 ml Output Urine Total 875 ml 1200 ml Laboratory Tests 11/04/18 20:30: Troponin I 0.000 11/05/18 08:30: White Blood Count 5.1, Red Blood Count 4.71, Hemoglobin 11.9L, Hematocrit 38.2L , Mean Corpuscular Volume 81, Mean Corpuscular Hemoglobin 25.3L, Mean Corpuscular Hemoglobin Concent 31.1L, Red Cell Distribution Width 16.2H, Platelet Count 299, Mean Platelet Volume 6.7, Neutrophils (%) (Auto) 41.2L, Lymphocytes (%) (Auto) 31.8, Monocytes (%) (Auto) 15.4H, Eosinophils (%) (Auto) 9.7H, Basophils (%) (Auto) 1.9, Sodium Level 136, Potassium Level 4.8, Chloride Level 103, Carbon Dioxide Level 26, Anion Gap 7, Blood Urea Nitrogen 18, Creatinine 1.3, Estimat Glomerular Filtration Rate > 60, Glucose Level 102, Calcium Level 8.5 Height (Feet): 6 Height (Inches): 2.00 Weight (Pounds): 146 General Appearance: lethargic EENT: normal ENT inspection Neck: normal alignment Cardiovascular: normal peripheral pulses, normal rate, regular rhythm Respiratory/Chest: chest wall non-tender, decreased breath sounds Abdomen: normal bowel sounds, non tender, soft Extremities: normal inspection Edema: 1+ Arm (L), 1+ Arm (R), 1+ Leg (L), 1+ Leg (R), 1+ Pedal (L), 1+ Pedal ( R), 1+ Generalized Edema: trace edema Neurologic: responsive, motor weakness Skin: normal pigmentation, warm/dry Fabio Tracey DO Nov 05, 2018 13:47
[2018-11-05 16:00] VITALS: BP 151/76
[2018-11-05 20:00] VITALS: BP 105/68
--- NOTE | 2018-11-05 21:10 | Cardiology Progress Note ---
Assessment/Plan Assessment/Plan 1. Chronic recurrent chest pain. 2. Visible foreign body in the left sternal area consistent with sternal wires. 3. Coronary artery disease, status post coronary artery bypass grafting and prior PCI. 4. COPD. 5. Chronic pain. 6. Osteomyelitis of lower extremity. echo normal wall motion all torp neg i have given him arvin no to call at [facility] on a paper with the phone and contact no of thoracic surgeon at [facility] he was sleeping so i left paper at i bedside Subjective ROS Limited/Unobtainable: Yes Subjective sleeping Objective Last 24 Hour Vital Signs Date Time Temp Pulse Resp B/P (MAP) Pulse Ox O2 Delivery O2 Flow Rate FiO2 11/05/18 19:49 93 18 Room Air 21 11/05/18 16:36 97.9 11/05/18 16:00 97.5 96 20 151/76 (101) 97 11/05/18 16:00 100 11/05/18 12:00 97.9 96 22 145/73 (97) 95 11/05/18 12:00 108 11/05/18 09:00 Room Air 11/05/18 08:16 97 151/80 11/05/18 08:00 98.2 97 20 151/80 (103) 94 11/05/18 08:00 93 11/05/18 04:00 97.7 80 18 153/71 (98) 95 11/05/18 04:00 82 11/05/18 00:00 99 11/05/18 00:00 98.0 84 18 153/69 (97) 94 Neck: supple Cardiovascular: normal rate Respiratory/Chest: lungs clear Abdomen: normal bowel sounds, non tender, soft Intake and Output 11/04/18 11/05/18 19:00 07:00 Intake Total 600 ml Output Total 875 ml 1200 ml Balance -275 ml -1200 ml Intake Oral 600 ml Output Urine Total 875 ml 1200 ml Laboratory Tests Test 11/05/18 08:30 White Blood Count 5.1 K/UL (4.8-10.8) Red Blood Count 4.71 M/UL (4.70-6.10) Hemoglobin 11.9 G/DL (14.2-18.0) L Hematocrit 38.2 % (42.0-52.0) L Mean Corpuscular Volume 81 FL (80-99) Mean Corpuscular Hemoglobin 25.3 PG (27.0-31.0) L Mean Corpuscular Hemoglobin Concent 31.1 G/DL (32.0-36.0) L Red Cell Distribution Width 16.2 % (11.6-14.8) H Platelet Count 299 K/UL (150-450) Mean Platelet Volume 6.7 FL (6.5-10.1) Neutrophils (%) (Auto) 41.2 % (45.0-75.0) L Lymphocytes (%) (Auto) 31.8 % (20.0-45.0) Monocytes (%) (Auto) 15.4 % (1.0-10.0) H Eosinophils (%) (Auto) 9.7 % (0.0-3.0) H Basophils (%) (Auto) 1.9 % (0.0-2.0) Sodium Level 136 MMOL/L (136-145) Potassium Level 4.8 MMOL/L (3.5-5.1) Chloride Level 103 MMOL/L (98-107) Carbon Dioxide Level 26 MMOL/L (21-32) Anion Gap 7 mmol/L (5-15) Blood Urea Nitrogen 18 mg/dL (7-18) Creatinine 1.3 MG/DL (0.55-1.30) Estimat Glomerular Filtration Rate > 60 mL/min (>60) Glucose Level 102 MG/DL (74-106) Calcium Level 8.5 MG/DL (8.5-10.1) Sergio Anaya MD Nov 05, 2018 21:10
[2018-11-06] VITALS (7 sets, daily range): BP systolic 125–190; BP diastolic 70–95
[2018-11-06] MEDS ORDERED: Albuterol/Ipratropium 3ml neb HHN PRN (00:45)
[2018-11-06] MEDS ORDERED: dilTIAZem HCl 25mg/5ml Inj IV PRN (00:45)
[2018-11-06] MEDS ORDERED: Lisinopril 10mg tab ORAL PRN (02:25)
[2018-11-06] MEDS ORDERED: Enalaprilat 2.5mg/2ml Inj IV PRN (02:45)
[2018-11-06 06:46] LABS: BASOPHILS % (AUTO) 1.5 % (0.0-2.0); EOSINOPHILS % (AUTO) 7.5 % (0.0-3.0); HEMATOCRIT 39.7 % (42.0-52.0); HEMOGLOBIN 12.3 G/DL (14.2-18.0); LYMPHOCYTES % (AUTO) 30.7 % (20.0-45.0); MEAN CORPUSCULAR VOLUME 82 FL (80-99); MONOCYTES % (AUTO) 18.8 % (1.0-10.0); NEUTROPHILS % (AUTO) 41.5 % (45.0-75.0); PLATELET COUNT 300 K/UL (150-450); RED BLOOD COUNT 4.86 M/UL (4.70-6.10); WHITE BLOOD COUNT 6.1 K/UL (4.8-10.8)
[2018-11-06 07:00] LABS: ANION GAP 9 mmol/L (5-15); BLOOD UREA NITROGEN 18 mg/dL (7-18); CARBON DIOXIDE 24 MMOL/L (21-32); CHLORIDE 102 MMOL/L (98-107); CREATININE 1.2 MG/DL (0.55-1.30); POTASSIUM 5.1 MMOL/L (3.5-5.1); SODIUM 135 MMOL/L (136-145)
[2018-11-06] MEDS: Aspirin Baby 81mg ORAL SCH (09:21)
[2018-11-06] MEDS: Cephalexin 500mg cap ORAL SCH ×4 (09:21→21:56)
[2018-11-06] MEDS: Theophylline ER 100mg ORAL SCH ×2 (09:21→21:56)
[2018-11-06] MEDS: Heparin 5000 units/ml inj SUBQ SCH ×3 (09:24→21:00)
--- NOTE | 2018-11-06 11:20 | General Progress Note ---
Assessment/Plan Problem List: (1) Emphysema lung ICD Codes: J43.9 - Emphysema, unspecified SNOMED: 93437781 (2) Decubitus ulcer, ankle, right, unstageable ICD Codes: L89.510 - Pressure ulcer of right ankle, unstageable SNOMED: 863484618 (3) Peripheral vascular disease ICD Codes: I73.9 - Peripheral vascular disease, unspecified SNOMED: 350191185 (4) Acute CHF (congestive heart failure) ICD Codes: I50.9 - Heart failure, unspecified SNOMED: 34453556 (5) Intractable back pain ICD Codes: M54.9 - Dorsalgia, unspecified SNOMED: 430296521 Status: unchanged Assessment/Plan pt diet o2 pulm tx pain control cbc bmp am Subjective Constitutional: Reports: weakness Respiratory: Reports: shortness of breath Allergies: Coded Allergies: EGG (Verified Allergy, Unknown, 09/28/18) MEPERIDINE (Verified Allergy, Unknown, 09/28/18) MORPHINE (Verified Allergy, Unknown, 09/28/18) NITROGLYCERIN (Verified Allergy, Unknown, hives, 09/28/18) All Systems: reviewed and negative except above Subjective sl chest pain Objective Last 24 Hour Vital Signs Date Time Temp Pulse Resp B/P (MAP) Pulse Ox O2 Delivery O2 Flow Rate FiO2 11/06/18 09:22 99 157/88 11/06/18 09:00 Room Air 11/06/18 08:00 97.7 99 19 157/88 (111) 100 11/06/18 06:57 90 17 Room Air 21 11/06/18 04:00 97.3 93 18 171/83 (112) 97 11/06/18 02:59 179/85 11/06/18 02:45 179/85 (116) 11/06/18 00:00 97.0 105 20 190/95 (126) 97 11/05/18 21:00 Room Air 11/05/18 20:00 98.1 104 18 105/68 (80) 97 11/05/18 19:49 93 18 Room Air 21 11/05/18 16:36 97.9 11/05/18 16:00 97.5 96 20 151/76 (101) 97 11/05/18 16:00 100 11/05/18 12:00 97.9 96 22 145/73 (97) 95 11/05/18 12:00 108 Intake and Output 11/05/18 11/06/18 19:00 07:00 Intake Total 425 ml 400 ml Output Total 600 ml Balance -175 ml 400 ml Intake Oral 425 ml 400 ml Output Urine Total 600 ml # Voids 3 Laboratory Tests 11/06/18 05:40: White Blood Count 6.1, Red Blood Count 4.86, Hemoglobin 12.3L, Hematocrit 39.7L , Mean Corpuscular Volume 82, Mean Corpuscular Hemoglobin 25.3L, Mean Corpuscular Hemoglobin Concent 30.9L, Red Cell Distribution Width 16.0H, Platelet Count 300, Mean Platelet Volume 6.5, Neutrophils (%) (Auto) 41.5L, Lymphocytes (%) (Auto) 30.7, Monocytes (%) (Auto) 18.8H, Eosinophils (%) (Auto) 7.5H, Basophils (%) (Auto) 1.5, Sodium Level 135L, Potassium Level 5.1, Chloride Level 102, Carbon Dioxide Level 24, Anion Gap 9, Blood Urea Nitrogen 18 , Creatinine 1.2, Estimat Glomerular Filtration Rate > 60, Glucose Level 87, Calcium Level 9.0 Height (Feet): 6 Height (Inches): 2.00 Weight (Pounds): 146 General Appearance: lethargic EENT: normal ENT inspection Neck: normal alignment Cardiovascular: normal peripheral pulses, normal rate, regular rhythm Respiratory/Chest: chest wall non-tender, decreased breath sounds Abdomen: normal bowel sounds, non tender, soft Extremities: normal inspection Edema: 1+ Arm (L), 1+ Arm (R), 1+ Leg (L), 1+ Leg (R), 1+ Pedal (L), 1+ Pedal ( R), 1+ Generalized Edema: trace edema Neurologic: responsive, motor weakness Skin: normal pigmentation, warm/dry Fabio Tracey DO Nov 06, 2018 11:20
--- NOTE | 2018-11-06 11:46 | Infectious Diseases Prog Note ---
Assessment/Plan Assessment/Plan Abx: None Assessment: Afebrile No leukocytosis R Leg swelling/pain, mild cellulitis -v/ duplex: no DVT Hx of Chronic R leg ulcer; healing- no signs of infection 10/05 MRI : No definite evidence of osteomyelitis. emphysema/COPD CAD/ME s/p CABG/ stents x2 chronic pain s/p PPM HTN severe malnutrition MDD tobacco abuse seizure disorder chronic R>L edema recurrent leg cellulitis DM2 bedbound recurrent admissions (for CHF/COPD exacerbation, recurrent cellulitis) Plan: -Cont Keflex #4/5 for mild cellulitis -10/04 SP Doxycycline orally day # 5 -f/u cx -MOnitor CBC/CMP, temperatures -wound care -leg elevation, compression stockins Thank you for this consultation. Will continue to follow along with you. Discussed with RN. Subjective Allergies: Coded Allergies: EGG (Verified Allergy, Unknown, 09/28/18) MEPERIDINE (Verified Allergy, Unknown, 09/28/18) MORPHINE (Verified Allergy, Unknown, 09/28/18) NITROGLYCERIN (Verified Allergy, Unknown, hives, 09/28/18) Subjective afebrile at RA Objective Vital Signs Last 24 Hour Vital Signs Date Time Temp Pulse Resp B/P (MAP) Pulse Ox O2 Delivery O2 Flow Rate FiO2 11/06/18 09:22 99 157/88 11/06/18 09:00 Room Air 11/06/18 08:00 97.7 99 19 157/88 (111) 100 11/06/18 06:57 90 17 Room Air 21 11/06/18 04:00 97.3 93 18 171/83 (112) 97 11/06/18 02:59 179/85 11/06/18 02:45 179/85 (116) 11/06/18 00:00 97.0 105 20 190/95 (126) 97 11/05/18 21:00 Room Air 11/05/18 20:00 98.1 104 18 105/68 (80) 97 11/05/18 19:49 93 18 Room Air 21 11/05/18 16:36 97.9 11/05/18 16:00 97.5 96 20 151/76 (101) 97 11/05/18 16:00 100 11/05/18 12:00 97.9 96 22 145/73 (97) 95 11/05/18 12:00 108 Height (Feet): 6 Height (Inches): 2.00 Weight (Pounds): 146 Objective General Appearance: cachetic Lines, tubes and drains: peripheral HEENT: normocephalic, atraumatic Neck: non-tender, normal alignment Respiratory/Chest: chest wall non-tender, lungs clear Cardiovascular/Chest: normal peripheral pulses. R leg swelling and TTP Abdomen: normal bowel sounds Laboratory Tests Test 11/06/18 05:40 White Blood Count 6.1 K/UL (4.8-10.8) Red Blood Count 4.86 M/UL (4.70-6.10) Hemoglobin 12.3 G/DL (14.2-18.0) L Hematocrit 39.7 % (42.0-52.0) L Mean Corpuscular Volume 82 FL (80-99) Mean Corpuscular Hemoglobin 25.3 PG (27.0-31.0) L Mean Corpuscular Hemoglobin Concent 30.9 G/DL (32.0-36.0) L Red Cell Distribution Width 16.0 % (11.6-14.8) H Platelet Count 300 K/UL (150-450) Mean Platelet Volume 6.5 FL (6.5-10.1) Neutrophils (%) (Auto) 41.5 % (45.0-75.0) L Lymphocytes (%) (Auto) 30.7 % (20.0-45.0) Monocytes (%) (Auto) 18.8 % (1.0-10.0) H Eosinophils (%) (Auto) 7.5 % (0.0-3.0) H Basophils (%) (Auto) 1.5 % (0.0-2.0) Sodium Level 135 MMOL/L (136-145) L Potassium Level 5.1 MMOL/L (3.5-5.1) Chloride Level 102 MMOL/L (98-107) Carbon Dioxide Level 24 MMOL/L (21-32) Anion Gap 9 mmol/L (5-15) Blood Urea Nitrogen 18 mg/dL (7-18) Creatinine 1.2 MG/DL (0.55-1.30) Estimat Glomerular Filtration Rate > 60 mL/min (>60) Glucose Level 87 MG/DL (74-106) Calcium Level 9.0 MG/DL (8.5-10.1) Current Medications Medications (Trade) Dose Ordered Sig/Aminata Route PRN Reason Start Time Stop Time Status Last Admin Dose Admin Acetaminophen (Tylenol) 650 mg Q4H PRN ORAL FEVER 11/06/18 00:45 12/02/18 20:44 Albuterol/ Ipratropium (Albuterol/ Ipratropium) 3 ml Q4H PRN HHN Shortness of Breath 11/06/18 00:45 11/07/18 20:44 Amlodipine Besylate (Norvasc) 10 mg DAILY ORAL 11/06/18 09:00 12/03/18 08:59 11/06/18 09:22 Aspirin (ASA) 162 mg DAILY ORAL 11/06/18 09:00 12/03/18 08:59 11/06/18 09:21 Atorvastatin Calcium (Lipitor) 10 mg BEDTIME ORAL 11/06/18 21:00 12/04/18 22:14 Cephalexin (Keflex) 500 mg FOUR TIMES A DAY ORAL 11/06/18 09:00 11/07/18 23:59 11/06/18 09:21 Clopidogrel Bisulfate (Plavix) 75 mg DAILY ORAL 11/06/18 09:00 12/03/18 08:59 11/06/18 09:21 Heparin Sodium (Porcine) (Heparin 5000 units/ml) 5,000 units EVERY 12 HOURS SUBQ 11/06/18 09:00 12/03/18 08:59 Hydromorphone HCl (Dilaudid) 3 mg Q3H PRN IVP Severe Pain (Pain Scale 7-10) 11/06/18 03:15 11/09/18 21:14 11/06/18 09:23 Levetiracetam (Keppra) 500 mg DAILY ORAL 11/06/18 09:00 12/03/18 08:59 11/06/18 09:21 Lisinopril (Zestril) 10 mg Q8HR PRN ORAL For High Blood Pressure 11/06/18 02:25 12/06/18 02:24 Future hold 11/06/18 02:59 Mirtazapine (Remeron) 30 mg BEDTIME ORAL 11/06/18 21:00 12/03/18 20:59 Ondansetron HCl (Zofran) 4 mg Q6H PRN IVP Nausea & Vomiting 12/14/18 02:45 12/02/18 20:44 Polyethylene Glycol (Miralax) 17 gm DAILYPRN PRN ORAL Constipation 11/06/18 20:45 12/02/18 20:44 Temazepam (Restoril) 15 mg HSPRN PRN ORAL Insomnia 11/06/18 20:45 11/09/18 20:44 Theophylline (Wilfrido-Dur) 100 mg EVERY 12 HOURS ORAL 11/06/18 09:00 12/02/18 20:59 11/06/18 09:21 Jessica Parry M.D. Nov 06, 2018 11:46
--- NOTE | 2018-11-06 15:39 | Pulmonology Progress Note ---
Assessment/Plan Problems: (1) Severe protein-calorie malnutrition (2) Emphysema lung (3) CAD (coronary artery disease) (4) Hypothyroidism (5) Peripheral vascular disease (6) HTN (hypertension) Assessment/Plan left leg/calf still swollen symptomatic treatment pain management cardiac f/u appreciated respiratory treatment pt/ot wound care dc planning in 1-2 days Subjective ROS Limited/Unobtainable: No Constitutional: Reports: no symptoms HEENT: Repors: no symptoms Respiratory: Reports: no symptoms Allergies: Coded Allergies: EGG (Verified Allergy, Unknown, 09/28/18) MEPERIDINE (Verified Allergy, Unknown, 09/28/18) MORPHINE (Verified Allergy, Unknown, 09/28/18) NITROGLYCERIN (Verified Allergy, Unknown, hives, 09/28/18) Objective Last 24 Hour Vital Signs Date Time Temp Pulse Resp B/P (MAP) Pulse Ox O2 Delivery O2 Flow Rate FiO2 11/06/18 12:00 97.5 82 20 147/70 (95) 100 11/06/18 09:22 99 157/88 11/06/18 09:00 Room Air 11/06/18 08:00 97.7 99 19 157/88 (111) 100 11/06/18 06:57 90 17 Room Air 21 11/06/18 04:00 97.3 93 18 171/83 (112) 97 11/06/18 02:59 179/85 11/06/18 02:45 179/85 (116) 11/06/18 00:00 97.0 105 20 190/95 (126) 97 11/05/18 21:00 Room Air 11/05/18 20:00 98.1 104 18 105/68 (80) 97 11/05/18 19:49 93 18 Room Air 21 11/05/18 16:36 97.9 11/05/18 16:00 97.5 96 20 151/76 (101) 97 11/05/18 16:00 100 Intake and Output 11/05/18 11/06/18 19:00 07:00 Intake Total 425 ml 400 ml Output Total 600 ml Balance -175 ml 400 ml Intake Oral 425 ml 400 ml Output Urine Total 600 ml # Voids 3 General Appearance: WD/WN HEENT: normocephalic, atraumatic Respiratory/Chest: chest wall non-tender, lungs clear, chest wall tender Abdomen: normal bowel sounds, soft, non tender Genitourinary: normal external genitalia Skin: no lesions Laboratory Tests 11/06/18 05:40: White Blood Count 6.1, Red Blood Count 4.86, Hemoglobin 12.3L, Hematocrit 39.7L , Mean Corpuscular Volume 82, Mean Corpuscular Hemoglobin 25.3L, Mean Corpuscular Hemoglobin Concent 30.9L, Red Cell Distribution Width 16.0H, Platelet Count 300, Mean Platelet Volume 6.5, Neutrophils (%) (Auto) 41.5L, Lymphocytes (%) (Auto) 30.7, Monocytes (%) (Auto) 18.8H, Eosinophils (%) (Auto) 7.5H, Basophils (%) (Auto) 1.5, Sodium Level 135L, Potassium Level 5.1, Chloride Level 102, Carbon Dioxide Level 24, Anion Gap 9, Blood Urea Nitrogen 18 , Creatinine 1.2, Estimat Glomerular Filtration Rate > 60, Glucose Level 87, Calcium Level 9.0 Current Medications Medications (Trade) Dose Ordered Sig/Aminata Route PRN Reason Start Time Stop Time Status Last Admin Dose Admin Acetaminophen (Tylenol) 650 mg Q4H PRN ORAL FEVER 11/06/18 00:45 12/02/18 20:44 Albuterol/ Ipratropium (Albuterol/ Ipratropium) 3 ml Q4H PRN HHN Shortness of Breath 11/06/18 00:45 11/07/18 20:44 Amlodipine Besylate (Norvasc) 10 mg DAILY ORAL 11/06/18 09:00 12/03/18 08:59 11/06/18 09:22 Aspirin (ASA) 162 mg DAILY ORAL 11/06/18 09:00 12/03/18 08:59 11/06/18 09:21 Atorvastatin Calcium (Lipitor) 10 mg BEDTIME ORAL 11/06/18 21:00 12/04/18 22:14 Cephalexin (Keflex) 500 mg FOUR TIMES A DAY ORAL 11/06/18 09:00 11/07/18 23:59 11/06/18 12:47 Clopidogrel Bisulfate (Plavix) 75 mg DAILY ORAL 11/06/18 09:00 12/03/18 08:59 11/06/18 09:21 Heparin Sodium (Porcine) (Heparin 5000 units/ml) 5,000 units EVERY 12 HOURS SUBQ 11/06/18 09:00 12/03/18 08:59 Hydromorphone HCl (Dilaudid) 3 mg Q3H PRN IVP Severe Pain (Pain Scale 7-10) 11/06/18 03:15 11/09/18 21:14 11/06/18 12:46 Levetiracetam (Keppra) 500 mg DAILY ORAL 11/06/18 09:00 12/03/18 08:59 11/06/18 09:21 Lisinopril (Zestril) 10 mg Q8HR PRN ORAL For High Blood Pressure 11/06/18 02:25 12/06/18 02:24 Future hold 11/06/18 02:59 Mirtazapine (Remeron) 30 mg BEDTIME ORAL 11/06/18 21:00 12/03/18 20:59 Ondansetron HCl (Zofran) 4 mg Q6H PRN IVP Nausea & Vomiting 11/06/18 02:45 12/02/18 20:44 Polyethylene Glycol (Miralax) 17 gm DAILYPRN PRN ORAL Constipation 11/06/18 20:45 12/02/18 20:44 Temazepam (Restoril) 15 mg HSPRN PRN ORAL Insomnia 11/06/18 20:45 11/09/18 20:44 Theophylline (Wilfrido-Dur) 100 mg EVERY 12 HOURS ORAL 11/06/18 09:00 12/02/18 20:59 11/06/18 09:21 Jessie Magana MD Nov 06, 2018 15:39
[2018-11-06] MEDS ORDERED: Miralax 17gm pkt ORAL PRN (20:45)
--- NOTE | 2018-11-06 23:31 | General Progress Note ---
Assessment/Plan Problem List: (1) Major depression ICD Codes: F32.9 - Major depressive disorder, single episode, unspecified SNOMED: 999022727 Qualifiers: Status: stable, progressing Assessment/Plan Remeron 30mg qhs provided ro/st Subjective 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: Reports: anxiety, depressed, emotional problems Allergies: Coded Allergies: EGG (Verified Allergy, Unknown, 09/28/18) MEPERIDINE (Verified Allergy, Unknown, 09/28/18) MORPHINE (Verified Allergy, Unknown, 09/28/18) NITROGLYCERIN (Verified Allergy, Unknown, hives, 09/28/18) Objective Last 24 Hour Vital Signs Date Time Temp Pulse Resp B/P (MAP) Pulse Ox O2 Delivery O2 Flow Rate FiO2 11/06/18 22:28 97.7 11/06/18 20:00 96.9 90 16 125/82 (96) 95 11/06/18 16:00 97.7 90 19 129/74 (92) 99 11/06/18 12:00 97.5 82 20 147/70 (95) 100 11/06/18 09:22 99 157/88 11/06/18 09:00 Room Air 11/06/18 08:00 97.7 99 19 157/88 (111) 100 11/06/18 06:57 90 17 Room Air 21 11/06/18 04:00 97.3 93 18 171/83 (112) 97 11/06/18 02:59 179/85 11/06/18 02:45 179/85 (116) 11/06/18 00:00 97.0 105 20 190/95 (126) 97 Intake and Output 11/05/18 11/06/18 19:00 07:00 Intake Total 425 ml 400 ml Output Total 600 ml Balance -175 ml 400 ml Intake Oral 425 ml 400 ml Output Urine Total 600 ml # Voids 3 Laboratory Tests 11/06/18 05:40: White Blood Count 6.1, Red Blood Count 4.86, Hemoglobin 12.3L, Hematocrit 39.7L , Mean Corpuscular Volume 82, Mean Corpuscular Hemoglobin 25.3L, Mean Corpuscular Hemoglobin Concent 30.9L, Red Cell Distribution Width 16.0H, Platelet Count 300, Mean Platelet Volume 6.5, Neutrophils (%) (Auto) 41.5L, Lymphocytes (%) (Auto) 30.7, Monocytes (%) (Auto) 18.8H, Eosinophils (%) (Auto) 7.5H, Basophils (%) (Auto) 1.5, Sodium Level 135L, Potassium Level 5.1, Chloride Level 102, Carbon Dioxide Level 24, Anion Gap 9, Blood Urea Nitrogen 18 , Creatinine 1.2, Estimat Glomerular Filtration Rate > 60, Glucose Level 87, Calcium Level 9.0 Height (Feet): 6 Height (Inches): 2.00 Weight (Pounds): 146 General Appearance: no apparent distress, alert Neurologic: oriented x 3, responsive, depressed affect Rachael Buckley MD Nov 06, 2018 23:31
[2018-11-07] VITALS: BP 141/70
[2018-11-07 04:00] VITALS: BP 123/68
[2018-11-07 07:53] LABS: ANION GAP 8 mmol/L (5-15); BLOOD UREA NITROGEN 19 mg/dL (7-18); CARBON DIOXIDE 24 MMOL/L (21-32); CHLORIDE 104 MMOL/L (98-107); CREATININE 1.3 MG/DL (0.55-1.30); SODIUM 136 MMOL/L (136-145)
[2018-11-07 08:00] VITALS: BP 136/76
[2018-11-07 08:00] LABS: BASOPHILS % (AUTO) 0.6 % (0.0-2.0); EOSINOPHILS % (AUTO) 6.5 % (0.0-3.0); HEMATOCRIT 40.4 % (42.0-52.0); HEMOGLOBIN 12.6 G/DL (14.2-18.0); LYMPHOCYTES % (AUTO) 32.4 % (20.0-45.0); MEAN CORPUSCULAR VOLUME 82 FL (80-99); MONOCYTES % (AUTO) 16.9 % (1.0-10.0); NEUTROPHILS % (AUTO) 43.6 % (45.0-75.0); PLATELET COUNT 283 K/UL (150-450); RED BLOOD COUNT 4.95 M/UL (4.70-6.10); RED CELL DISTRIBUTION WIDTH 16.2 % (11.6-14.8); WHITE BLOOD COUNT 5.8 K/UL (4.8-10.8)
--- NOTE | 2018-11-07 08:17 | Pulmonology Progress Note ---
Assessment/Plan Assessment/Plan ASSESSMENT COPD /emphysema Mild cellulitis right leg Chronic right leg ulcer Chronic recurrent chest pain CAD, status post CABG and PCI PVD HTN Seizure disorder Hypothyroidism Severe protein calorie malnutrition Mild pulmonary hypertension , likely related to COPD Major depression PLAN OF CARE MS floor O2 titrate as needed, HHN prn trial of theophylline abx per ID recs, MRI 10/05 no evidence of OM R leg ulcer -no signs of infection a/PLT with ASA, continue statin BP management with CCB and optimize further prn ECHO with pEF 60% and RVSP of 35 c/w mild pulmonary hypertension referral to thoracic surgeon at [facility] provided by spar finisher for dealing with eternal sternal wires seizure precautions, continue Keppra DVT/GI prophylaxis pain management TSH WNL continue current treatment dietary recommendation implemented in plan of care bowel regimen psych follows supportive care dc plan for tomorrow case discussed and evaluated by supervising physician Subjective Allergies: Coded Allergies: EGG (Verified Allergy, Unknown, 09/28/18) MEPERIDINE (Verified Allergy, Unknown, 09/28/18) MORPHINE (Verified Allergy, Unknown, 09/28/18) NITROGLYCERIN (Verified Allergy, Unknown, hives, 09/28/18) Subjective no SOB occasional chronic CP( previous cardiac workuo negative), liekly due to exposed sternal wires R leg still swollen , mild pain, on oral abx Objective Last 24 Hour Vital Signs Date Time Temp Pulse Resp B/P (MAP) Pulse Ox O2 Delivery O2 Flow Rate FiO2 11/07/18 04:01 97.9 11/07/18 04:00 97.9 90 18 123/68 (86) 94 11/07/18 00:00 97.9 84 18 141/70 (93) 95 11/06/18 21:00 Room Air Room Air Room Air 11/06/18 20:00 96.9 90 16 125/82 (96) 95 11/06/18 20:00 91 18 Room Air 21 11/06/18 16:00 97.7 90 19 129/74 (92) 99 11/06/18 12:00 97.5 82 20 147/70 (95) 100 11/06/18 09:22 99 157/88 11/06/18 09:00 Room Air Intake and Output 11/06/18 11/07/18 18:59 06:59 Intake Total 1200 ml Output Total 600 ml 500 ml Balance 600 ml -500 ml Intake Oral 1200 ml Output Urine Total 600 ml 500 ml General Appearance: no acute distress, cachetic, other - awake, alert, oriented male HEENT: normocephalic, atraumatic, anicteric, mucous membranes moist Respiratory/Chest: lungs clear - with moderate air exchange , no respiratory distress, no accessory muscle use Cardiovascular: normal peripheral pulses, normal rate Abdomen: normal bowel sounds, soft, non tender, non distended Extremities: no edema, pedal pulses normal Skin: other - R lower leg chronic ulcer, no evidence of infection 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: alert, oriented x 3, responsive Musculoskeletal: atrophy - BLE Laboratory Tests 11/07/18 04:50: White Blood Count 5.8, Red Blood Count 4.95, Hemoglobin 12.6L, Hematocrit 40.4L , Mean Corpuscular Volume 82, Mean Corpuscular Hemoglobin 25.5L, Mean Corpuscular Hemoglobin Concent 31.2L, Red Cell Distribution Width 16.2H, Platelet Count 283, Mean Platelet Volume 6.6, Neutrophils (%) (Auto) 43.6L, Lymphocytes (%) (Auto) 32.4, Monocytes (%) (Auto) 16.9H, Eosinophils (%) (Auto) 6.5H, Basophils (%) (Auto) 0.6, Sodium Level 136, Potassium Level 5.0, Chloride Level 104, Carbon Dioxide Level 24, Anion Gap 8, Blood Urea Nitrogen 19H, Creatinine 1.3, Estimat Glomerular Filtration Rate > 60, Glucose Level 89, Calcium Level 9.0 Current Medications Medications (Trade) Dose Ordered Sig/Aminata Route PRN Reason Start Time Stop Time Status Last Admin Dose Admin Acetaminophen (Tylenol) 650 mg Q4H PRN ORAL FEVER 11/06/18 00:45 12/02/18 20:44 Albuterol/ Ipratropium (Albuterol/ Ipratropium) 3 ml Q4H PRN HHN Shortness of Breath 11/06/18 00:45 11/07/18 20:44 Amlodipine Besylate (Norvasc) 10 mg DAILY ORAL 11/06/18 09:00 12/03/18 08:59 11/06/18 09:22 Aspirin (ASA) 162 mg DAILY ORAL 11/06/18 09:00 12/03/18 08:59 11/06/18 09:21 Atorvastatin Calcium (Lipitor) 10 mg BEDTIME ORAL 11/06/18 21:00 12/04/18 22:14 11/06/18 21:56 Cephalexin (Keflex) 500 mg FOUR TIMES A DAY ORAL 11/06/18 09:00 11/07/18 23:59 11/06/18 21:56 Clopidogrel Bisulfate (Plavix) 75 mg DAILY ORAL 11/06/18 09:00 12/03/18 08:59 11/06/18 09:21 Heparin Sodium (Porcine) (Heparin 5000 units/ml) 5,000 units EVERY 12 HOURS SUBQ 11/06/18 09:00 12/03/18 08:59 Hydromorphone HCl (Dilaudid) 3 mg Q3H PRN IVP Severe Pain (Pain Scale 7-10) 11/06/18 03:15 11/09/18 21:14 11/07/18 03:31 Levetiracetam (Keppra) 500 mg DAILY ORAL 11/06/18 09:00 12/03/18 08:59 11/06/18 09:21 Lisinopril (Zestril) 10 mg Q8HR PRN ORAL For High Blood Pressure 11/06/18 02:25 12/06/18 02:24 Future hold 11/06/18 02:59 Mirtazapine (Remeron) 30 mg BEDTIME ORAL 11/06/18 21:00 12/03/18 20:59 11/06/18 21:56 Ondansetron HCl (Zofran) 4 mg Q6H PRN IVP Nausea & Vomiting 11/06/18 02:45 12/02/18 20:44 Polyethylene Glycol (Miralax) 17 gm DAILYPRN PRN ORAL Constipation 11/06/18 20:45 12/02/18 20:44 Temazepam (Restoril) 15 mg HSPRN PRN ORAL Insomnia 11/06/18 20:45 11/09/18 20:44 Theophylline (Wilfrido-Dur) 100 mg EVERY 12 HOURS ORAL 11/06/18 09:00 12/02/18 20:59 11/06/18 21:56 Kristine Black NP Nov 07, 2018 08:17
--- NOTE | 2018-11-07 08:59 | General Progress Note ---
Assessment/Plan Problem List: (1) Emphysema lung ICD Codes: J43.9 - Emphysema, unspecified SNOMED: 82005548 (2) Decubitus ulcer, ankle, right, unstageable ICD Codes: L89.510 - Pressure ulcer of right ankle, unstageable SNOMED: 941143318 (3) Peripheral vascular disease ICD Codes: I73.9 - Peripheral vascular disease, unspecified SNOMED: 717245616 (4) Acute CHF (congestive heart failure) ICD Codes: I50.9 - Heart failure, unspecified SNOMED: 54677335 (5) Intractable back pain ICD Codes: M54.9 - Dorsalgia, unspecified SNOMED: 570361525 Status: unchanged Assessment/Plan pt diet o2 pulm tx pain control cbc bmp am Subjective Constitutional: Reports: weakness Respiratory: Reports: shortness of breath Allergies: Coded Allergies: EGG (Verified Allergy, Unknown, 09/28/18) MEPERIDINE (Verified Allergy, Unknown, 09/28/18) MORPHINE (Verified Allergy, Unknown, 09/28/18) NITROGLYCERIN (Verified Allergy, Unknown, hives, 09/28/18) All Systems: reviewed and negative except above Subjective sl chest pain Objective Last 24 Hour Vital Signs Date Time Temp Pulse Resp B/P (MAP) Pulse Ox O2 Delivery O2 Flow Rate FiO2 11/07/18 04:01 97.9 11/07/18 04:00 97.9 90 18 123/68 (86) 94 11/07/18 00:00 97.9 84 18 141/70 (93) 95 11/06/18 21:00 Room Air Room Air Room Air 11/06/18 20:00 96.9 90 16 125/82 (96) 95 11/06/18 20:00 91 18 Room Air 21 11/06/18 16:00 97.7 90 19 129/74 (92) 99 11/06/18 12:00 97.5 82 20 147/70 (95) 100 11/06/18 09:22 99 157/88 11/06/18 09:00 Room Air Intake and Output 11/06/18 11/07/18 18:59 06:59 Intake Total 1200 ml Output Total 600 ml 500 ml Balance 600 ml -500 ml Intake Oral 1200 ml Output Urine Total 600 ml 500 ml Laboratory Tests 11/07/18 04:50: White Blood Count 5.8, Red Blood Count 4.95, Hemoglobin 12.6L, Hematocrit 40.4L , Mean Corpuscular Volume 82, Mean Corpuscular Hemoglobin 25.5L, Mean Corpuscular Hemoglobin Concent 31.2L, Red Cell Distribution Width 16.2H, Platelet Count 283, Mean Platelet Volume 6.6, Neutrophils (%) (Auto) 43.6L, Lymphocytes (%) (Auto) 32.4, Monocytes (%) (Auto) 16.9H, Eosinophils (%) (Auto) 6.5H, Basophils (%) (Auto) 0.6, Sodium Level 136, Potassium Level 5.0, Chloride Level 104, Carbon Dioxide Level 24, Anion Gap 8, Blood Urea Nitrogen 19H, Creatinine 1.3, Estimat Glomerular Filtration Rate > 60, Glucose Level 89, Calcium Level 9.0 Height (Feet): 6 Height (Inches): 2.00 Weight (Pounds): 146 General Appearance: lethargic EENT: normal ENT inspection Neck: normal alignment Cardiovascular: normal peripheral pulses, normal rate, regular rhythm Respiratory/Chest: chest wall non-tender, decreased breath sounds Abdomen: normal bowel sounds, non tender, soft Extremities: normal inspection Edema: 1+ Arm (L), 1+ Arm (R), 1+ Leg (L), 1+ Leg (R), 1+ Pedal (L), 1+ Pedal ( R), 1+ Generalized Edema: trace edema Neurologic: responsive, 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
[2018-11-07] MEDS: Heparin 5000 units/ml inj SUBQ SCH ×2 (09:00→21:00)
[2018-11-07] MEDS: Aspirin Baby 81mg ORAL SCH (09:01)
[2018-11-07] MEDS: Cephalexin 500mg cap ORAL SCH ×4 (09:01→20:59)
[2018-11-07] MEDS: Theophylline ER 100mg ORAL SCH ×2 (09:01→20:58)
--- NOTE | 2018-11-07 09:02 | Infectious Diseases Prog Note ---
Assessment/Plan Assessment/Plan Afebrile No leukocytosis R Leg swelling/pain, mild cellulitis -v/ duplex: no DVT Hx of Chronic R leg ulcer; healing- no signs of infection 10/05 MRI : No definite evidence of osteomyelitis. emphysema/COPD CAD/MS s/p CABG/ stents x2 chronic pain s/p PPM HTN severe malnutrition MDD tobacco abuse seizure disorder chronic R>L edema recurrent leg cellulitis DM2 bedbound recurrent admissions (for CHF/COPD exacerbation, recurrent cellulitis) Plan: -Cont Keflex #5/ for mild cellulitis -10/04 SP Doxycycline orally day # 5 -f/u cx -Monitor CBC/CMP, temperatures -wound care -leg elevation, compression stockins Thank you for this consultation. Will continue to follow along with you. Discussed with RN. Subjective Allergies: Coded Allergies: EGG (Verified Allergy, Unknown, 09/28/18) MEPERIDINE (Verified Allergy, Unknown, 09/28/18) MORPHINE (Verified Allergy, Unknown, 09/28/18) NITROGLYCERIN (Verified Allergy, Unknown, hives, 09/28/18) Subjective Patient satting well on RA Afebrile No leukocytosis Objective Vital Signs Last 24 Hour Vital Signs Date Time Temp Pulse Resp B/P (MAP) Pulse Ox O2 Delivery O2 Flow Rate FiO2 11/07/18 04:01 97.9 11/07/18 04:00 97.9 90 18 123/68 (86) 94 11/07/18 00:00 97.9 84 18 141/70 (93) 95 11/06/18 21:00 Room Air Room Air Room Air 11/06/18 20:00 96.9 90 16 125/82 (96) 95 11/06/18 20:00 91 18 Room Air 21 11/06/18 16:00 97.7 90 19 129/74 (92) 99 11/06/18 12:00 97.5 82 20 147/70 (95) 100 11/06/18 09:22 99 157/88 Height (Feet): 6 Height (Inches): 2.00 Weight (Pounds): 146 Objective General Appearance: cachetic Lines, tubes and drains: peripheral HEENT: normocephalic, atraumatic Neck: non-tender, normal alignment Respiratory/Chest: chest wall non-tender, lungs clear Cardiovascular/Chest: normal peripheral pulses. R leg swelling and TTP Abdomen: normal bowel sounds Laboratory Tests Test 11/07/18 04:50 White Blood Count 5.8 K/UL (4.8-10.8) Red Blood Count 4.95 M/UL (4.70-6.10) Hemoglobin 12.6 G/DL (14.2-18.0) L Hematocrit 40.4 % (42.0-52.0) L Mean Corpuscular Volume 82 FL (80-99) Mean Corpuscular Hemoglobin 25.5 PG (27.0-31.0) L Mean Corpuscular Hemoglobin Concent 31.2 G/DL (32.0-36.0) L Red Cell Distribution Width 16.2 % (11.6-14.8) H Platelet Count 283 K/UL (150-450) Mean Platelet Volume 6.6 FL (6.5-10.1) Neutrophils (%) (Auto) 43.6 % (45.0-75.0) L Lymphocytes (%) (Auto) 32.4 % (20.0-45.0) Monocytes (%) (Auto) 16.9 % (1.0-10.0) H Eosinophils (%) (Auto) 6.5 % (0.0-3.0) H Basophils (%) (Auto) 0.6 % (0.0-2.0) Sodium Level 136 MMOL/L (136-145) Potassium Level 5.0 MMOL/L (3.5-5.1) Chloride Level 104 MMOL/L (98-107) Carbon Dioxide Level 24 MMOL/L (21-32) Anion Gap 8 mmol/L (5-15) Blood Urea Nitrogen 19 mg/dL (7-18) H Creatinine 1.3 MG/DL (0.55-1.30) Estimat Glomerular Filtration Rate > 60 mL/min (>60) Glucose Level 89 MG/DL (74-106) Calcium Level 9.0 MG/DL (8.5-10.1) Current Medications Medications (Trade) Dose Ordered Sig/Aminata Route PRN Reason Start Time Stop Time Status Last Admin Dose Admin Acetaminophen (Tylenol) 650 mg Q4H PRN ORAL FEVER 11/06/18 00:45 12/02/18 20:44 Albuterol/ Ipratropium (Albuterol/ Ipratropium) 3 ml Q4H PRN HHN Shortness of Breath 11/06/18 00:45 11/07/18 20:44 Amlodipine Besylate (Norvasc) 10 mg DAILY ORAL 11/06/18 09:00 12/03/18 08:59 11/06/18 09:22 Aspirin (ASA) 162 mg DAILY ORAL 11/06/18 09:00 12/03/18 08:59 11/06/18 09:21 Atorvastatin Calcium (Lipitor) 10 mg BEDTIME ORAL 11/06/18 21:00 12/04/18 22:14 11/06/18 21:56 Cephalexin (Keflex) 500 mg FOUR TIMES A DAY ORAL 11/06/18 09:00 11/07/18 23:59 11/06/18 21:56 Clopidogrel Bisulfate (Plavix) 75 mg DAILY ORAL 11/06/18 09:00 12/03/18 08:59 11/06/18 09:21 Heparin Sodium (Porcine) (Heparin 5000 units/ml) 5,000 units EVERY 12 HOURS SUBQ 11/06/18 09:00 12/03/18 08:59 Hydromorphone HCl (Dilaudid) 3 mg Q3H PRN IVP Severe Pain (Pain Scale 7-10) 11/06/18 03:15 11/09/18 21:14 11/07/18 03:31 Levetiracetam (Keppra) 500 mg DAILY ORAL 11/06/18 09:00 12/03/18 08:59 11/06/18 09:21 Lisinopril (Zestril) 10 mg Q8HR PRN ORAL For High Blood Pressure 11/06/18 02:25 12/06/18 02:24 Future hold 11/06/18 02:59 Mirtazapine (Remeron) 30 mg BEDTIME ORAL 11/06/18 21:00 12/03/18 20:59 11/06/18 21:56 Ondansetron HCl (Zofran) 4 mg Q6H PRN IVP Nausea & Vomiting 11/06/18 02:45 12/02/18 20:44 Polyethylene Glycol (Miralax) 17 gm DAILYPRN PRN ORAL Constipation 11/06/18 20:45 12/02/18 20:44 Temazepam (Restoril) 15 mg HSPRN PRN ORAL Insomnia 11/06/18 20:45 11/09/18 20:44 Theophylline (Wilfrido-Dur) 100 mg EVERY 12 HOURS ORAL 11/06/18 09:00 12/02/18 20:59 11/06/18 21:56 Adonis Lozoya MD Nov 07, 2018 09:02
[2018-11-07 12:00] VITALS: BP 130/82
[2018-11-07] MEDS ORDERED: Albuterol/Ipratropium 3ml neb HHN PRN (14:30)
--- NOTE | 2018-11-07 15:22 | Cardiology Progress Note ---
Assessment/Plan Assessment/Plan 1. Chronic recurrent chest pain. 2. Visible foreign body in the left sternal area consistent with sternal wires. 3. Coronary artery disease, status post coronary artery bypass grafting and prior PCI. 4. COPD. 5. Chronic pain. 6. Osteomyelitis of lower extremity. echo normal wall motion all torp neg he has the no for cts at [facility] Subjective Cardiovascular: Reports: chest pain, lightheadedness Respiratory: Reports: shortness of breath Gastrointestinal/Abdominal: Denies: abdominal pain Genitourinary: Denies: burning Objective Last 24 Hour Vital Signs Date Time Temp Pulse Resp B/P (MAP) Pulse Ox O2 Delivery O2 Flow Rate FiO2 11/07/18 12:00 99.7 96 18 130/82 (98) 95 11/07/18 09:51 88 16 Room Air 21 11/07/18 09:02 96 136/76 11/07/18 09:00 Room Air Room Air Room Air 11/07/18 08:00 98.6 98 18 136/76 (96) 96 11/07/18 04:01 97.9 11/07/18 04:00 97.9 90 18 123/68 (86) 94 11/07/18 00:00 97.9 84 18 141/70 (93) 95 11/06/18 21:00 Room Air Room Air Room Air 11/06/18 20:00 96.9 90 16 125/82 (96) 95 11/06/18 20:00 91 18 Room Air 21 11/06/18 16:00 97.7 90 19 129/74 (92) 99 General Appearance: no apparent distress, alert Cardiovascular: normal rate, regular rhythm Respiratory/Chest: lungs clear Abdomen: normal bowel sounds, non tender, soft Extremities: no swelling Intake and Output 11/06/18 11/07/18 19:00 07:00 Intake Total 1200 ml Output Total 600 ml 500 ml Balance 600 ml -500 ml Intake Oral 1200 ml Output Urine Total 600 ml 500 ml Laboratory Tests Test 11/07/18 04:50 White Blood Count 5.8 K/UL (4.8-10.8) Red Blood Count 4.95 M/UL (4.70-6.10) Hemoglobin 12.6 G/DL (14.2-18.0) L Hematocrit 40.4 % (42.0-52.0) L Mean Corpuscular Volume 82 FL (80-99) Mean Corpuscular Hemoglobin 25.5 PG (27.0-31.0) L Mean Corpuscular Hemoglobin Concent 31.2 G/DL (32.0-36.0) L Red Cell Distribution Width 16.2 % (11.6-14.8) H Platelet Count 283 K/UL (150-450) Mean Platelet Volume 6.6 FL (6.5-10.1) Neutrophils (%) (Auto) 43.6 % (45.0-75.0) L Lymphocytes (%) (Auto) 32.4 % (20.0-45.0) Monocytes (%) (Auto) 16.9 % (1.0-10.0) H Eosinophils (%) (Auto) 6.5 % (0.0-3.0) H Basophils (%) (Auto) 0.6 % (0.0-2.0) Sodium Level 136 MMOL/L (136-145) Potassium Level 5.0 MMOL/L (3.5-5.1) Chloride Level 104 MMOL/L (98-107) Carbon Dioxide Level 24 MMOL/L (21-32) Anion Gap 8 mmol/L (5-15) Blood Urea Nitrogen 19 mg/dL (7-18) H Creatinine 1.3 MG/DL (0.55-1.30) Estimat Glomerular Filtration Rate > 60 mL/min (>60) Glucose Level 89 MG/DL (74-106) Calcium Level 9.0 MG/DL (8.5-10.1) Sergio Anaya MD Nov 07, 2018 15:22
[2018-11-07 16:00] VITALS: BP 101/62
[2018-11-07 20:00] VITALS: BP 133/69
[2018-11-08] VITALS (7 sets, daily range): BP systolic 118–169; BP diastolic 63–105
[2018-11-08 07:21] LABS: HEMOGLOBIN 11.9 G/DL (14.2-18.0); MEAN CORPUSCULAR VOLUME 80 FL (80-99); PLATELET COUNT 253 K/UL (150-450); RED BLOOD COUNT 4.72 M/UL (4.70-6.10); WHITE BLOOD COUNT 6.8 K/UL (4.8-10.8)
[2018-11-08 07:48] LABS: ANION GAP 8 mmol/L (5-15); BLOOD UREA NITROGEN 26 mg/dL (7-18); CALCIUM 8.5 MG/DL (8.5-10.1); CARBON DIOXIDE 25 MMOL/L (21-32); CHLORIDE 104 MMOL/L (98-107); CREATININE 1.5 MG/DL (0.55-1.30); POTASSIUM 5.4 MMOL/L (3.5-5.1); SODIUM 137 MMOL/L (136-145)
[2018-11-08] MEDS: Aspirin Baby 81mg ORAL SCH (08:10)
[2018-11-08] MEDS: Heparin 5000 units/ml inj SUBQ SCH ×2 (08:11→20:23)
--- NOTE | 2018-11-08 08:17 | Pulmonology Progress Note ---
Assessment/Plan Assessment/Plan ASSESSMENT COPD /emphysema e acute bronchospasm Mild cellulitis right leg Chronic right leg ulcer Chronic recurrent chest pain CAD, status post CABG and PCI PVD HTN Seizure disorder Hypothyroidism Severe protein calorie malnutrition Mild pulmonary hypertension , likely related to COPD Major depression Hyperkalemia PLAN OF CARE [facility] floor O2 titrate as needed, HHN ATC and prn start steroids for short pulse and change to oral upon dc trial of theophylline abx per ID recs, MRI 10/05 no evidence of OM R leg ulcer -no signs of infection a/PLT with ASA, continue statin BP management with CCB and optimize further prn cardio follows added Lisinopril prn K-5.4 today , Kayexalate now ? dc Lisinopril- per cardio creat up to 1.5, give 500cc of fluids check BMP in am ECHO with pEF 60% and RVSP of 35 c/w mild pulmonary hypertension referral to thoracic surgeon at [facility] provided by radiology rn for dealing with eternal sternal wires seizure precautions, continue Keppra DVT/GI prophylaxis pain management TSH WNL continue current treatment dietary recommendation implemented in plan of care bowel regimen psych follows supportive care possible dc in am outpt f/up with thoracic surgeon at [facility] ( phone provided by cardio, discussed with pt aware and agreed to follow) case discussed and evaluated by supervising physician Subjective Allergies: Coded Allergies: EGG (Verified Allergy, Unknown, 09/28/18) MEPERIDINE (Verified Allergy, Unknown, 09/28/18) MORPHINE (Verified Allergy, Unknown, 09/28/18) NITROGLYCERIN (Verified Allergy, Unknown, hives, 09/28/18) Subjective wheezing today chronic CP( previous cardiac workup negative), likely due to exposed sternal wires R leg with chronic ulcer, mild edema, on oral abx K-5.4 and creat up to 1.5 Objective Last 24 Hour Vital Signs Date Time Temp Pulse Resp B/P (MAP) Pulse Ox O2 Delivery O2 Flow Rate FiO2 11/08/18 08:10 91 135/80 11/08/18 05:15 135/80 (98) 11/08/18 04:00 97.3 91 20 169/105 (126) 94 11/08/18 00:00 98.2 90 17 130/70 (90) 97 11/07/18 21:00 Room Air Room Air Room Air Room Air 11/07/18 20:50 91 16 Room Air 21 11/07/18 20:00 98.0 93 18 133/69 (90) 98 11/07/18 16:00 99.2 102 18 101/62 (75) 97 11/07/18 12:00 99.7 96 18 130/82 (98) 95 11/07/18 09:51 88 16 Room Air 21 11/07/18 09:02 96 136/76 11/07/18 09:00 Room Air Room Air Room Air Intake and Output 11/07/18 11/08/18 19:00 07:00 Intake Total 600 ml 400 ml Output Total 650 ml 700 ml Balance -50 ml -300 ml Intake Oral 600 ml 400 ml Output Urine Total 650 ml 700 ml Objective General Appearance: no acute distress, cachetic, other - awake, alert, oriented male HEENT: normocephalic, atraumatic, anicteric, mucous membranes moist Respiratory/Chest: scattered expiratory wheezes, no accessory muscle use Cardiovascular: normal peripheral pulses, normal rate Abdomen: normal bowel sounds, soft, non tender, non distended Extremities: no edema, pedal pulses normal Skin: other - R lower leg chronic ulcer, no evidence of infection 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: alert, oriented x 3, responsive Musculoskeletal: atrophy - BLE Laboratory Tests 11/08/18 04:50: White Blood Count 6.8, Red Blood Count 4.72, Hemoglobin 11.9L, Hematocrit 38.0L , Mean Corpuscular Volume 80, Mean Corpuscular Hemoglobin 25.1L, Mean Corpuscular Hemoglobin Concent 31.2L, Red Cell Distribution Width 16.0H, Platelet Count 253, Mean Platelet Volume 6.7, Neutrophils (%) (Auto) , Lymphocytes (%) (Auto) , Monocytes (%) (Auto) , Eosinophils (%) (Auto) , Basophils (%) (Auto) , Neutrophils % (Manual) [Pending], Lymphocytes % (Manual) [Pending], Platelet Estimate [Pending], Platelet Morphology [Pending], Sodium Level 137, Potassium Level 5.4H, Chloride Level 104, Carbon Dioxide Level 25, Anion Gap 8, Blood Urea Nitrogen 26H, Creatinine 1.5H, Estimat Glomerular Filtration Rate 56.4, Glucose Level 84, Calcium Level 8.5 Current Medications Medications (Trade) Dose Ordered Sig/Aminata Route PRN Reason Start Time Stop Time Status Last Admin Dose Admin Acetaminophen (Tylenol) 650 mg Q4H PRN ORAL FEVER 11/06/18 00:45 12/02/18 20:44 Albuterol/ Ipratropium (Albuterol/ Ipratropium) 3 ml Q4H PRN HHN Shortness of Breath 11/07/18 14:30 11/09/18 14:29 Amlodipine Besylate (Norvasc) 10 mg DAILY ORAL 11/06/18 09:00 12/03/18 08:59 11/08/18 08:10 Aspirin (ASA) 162 mg DAILY ORAL 11/06/18 09:00 12/03/18 08:59 11/08/18 08:10 Atorvastatin Calcium (Lipitor) 10 mg BEDTIME ORAL 11/06/18 21:00 12/04/18 22:14 11/07/18 21:08 Clopidogrel Bisulfate (Plavix) 75 mg DAILY ORAL 11/06/18 09:00 12/03/18 08:59 11/08/18 08:10 Heparin Sodium (Porcine) (Heparin 5000 units/ml) 5,000 units EVERY 12 HOURS SUBQ 11/06/18 09:00 12/03/18 08:59 Hydromorphone HCl (Dilaudid) 3 mg Q3H PRN IVP Severe Pain (Pain Scale 7-10) 11/06/18 03:15 11/09/18 21:14 11/08/18 07:55 Levetiracetam (Keppra) 500 mg DAILY ORAL 11/06/18 09:00 12/03/18 08:59 11/08/18 08:10 Lisinopril (Zestril) 10 mg Q8HR PRN ORAL For High Blood Pressure 11/06/18 02:25 12/06/18 02:24 Future hold 11/06/18 02:59 Mirtazapine (Remeron) 30 mg BEDTIME ORAL 11/06/18 21:00 12/03/18 20:59 11/07/18 20:59 Ondansetron HCl (Zofran) 4 mg Q6H PRN IVP Nausea & Vomiting 11/06/18 02:45 12/02/18 20:44 Polyethylene Glycol (Miralax) 17 gm DAILYPRN PRN ORAL Constipation 11/06/18 20:45 12/02/18 20:44 Temazepam (Restoril) 15 mg HSPRN PRN ORAL Insomnia 11/06/18 20:45 11/09/18 20:44 Theophylline (Wilfrido-Dur) 100 mg EVERY 12 HOURS ORAL 11/06/18 09:00 12/02/18 20:59 11/07/18 20:58 Kristine Black NP Nov 08, 2018 08:17
[2018-11-08] MEDS ORDERED: Albuterol/Ipratropium 3ml neb HHN PRN (08:22)
[2018-11-08] MEDS ORDERED: Sodium Polystyrene Sulfonate 15gm Powder ORAL SCH (08:22)
[2018-11-08] MEDS ORDERED: Sodium Chloride 500ML 550 ML IV SCH (08:23)
--- NOTE | 2018-11-08 08:52 | General Progress Note ---
Assessment/Plan Problem List: (1) Emphysema lung ICD Codes: J43.9 - Emphysema, unspecified SNOMED: 37607899 (2) Decubitus ulcer, ankle, right, unstageable ICD Codes: L89.510 - Pressure ulcer of right ankle, unstageable SNOMED: 721132492 (3) Peripheral vascular disease ICD Codes: I73.9 - Peripheral vascular disease, unspecified SNOMED: 142781836 (4) Acute CHF (congestive heart failure) ICD Codes: I50.9 - Heart failure, unspecified SNOMED: 18563151 (5) Intractable back pain ICD Codes: M54.9 - Dorsalgia, unspecified SNOMED: 391613546 Status: unchanged Assessment/Plan pt diet o2 pulm tx pain control cbc bmp am Subjective Constitutional: Reports: weakness Respiratory: Reports: shortness of breath Allergies: Coded Allergies: EGG (Verified Allergy, Unknown, 09/28/18) MEPERIDINE (Verified Allergy, Unknown, 09/28/18) MORPHINE (Verified Allergy, Unknown, 09/28/18) NITROGLYCERIN (Verified Allergy, Unknown, hives, 09/28/18) All Systems: reviewed and negative except above Subjective sl chest pain sleepy Objective Last 24 Hour Vital Signs Date Time Temp Pulse Resp B/P (MAP) Pulse Ox O2 Delivery O2 Flow Rate FiO2 11/08/18 08:26 78 18 98 Room Air 21 11/08/18 08:16 75 20 93 Room Air 21 11/08/18 08:15 75 18 Room Air 21 11/08/18 08:10 91 135/80 11/08/18 05:15 135/80 (98) 11/08/18 04:00 97.3 91 20 169/105 (126) 94 11/08/18 00:00 98.2 90 17 130/70 (90) 97 11/07/18 21:00 Room Air Room Air Room Air Room Air 11/07/18 20:50 91 16 Room Air 21 11/07/18 20:00 98.0 93 18 133/69 (90) 98 11/07/18 16:00 99.2 102 18 101/62 (75) 97 11/07/18 12:00 99.7 96 18 130/82 (98) 95 11/07/18 09:51 88 16 Room Air 21 11/07/18 09:02 96 136/76 11/07/18 09:00 Room Air Room Air Room Air Intake and Output 11/07/18 11/08/18 19:00 07:00 Intake Total 600 ml 400 ml Output Total 650 ml 700 ml Balance -50 ml -300 ml Intake Oral 600 ml 400 ml Output Urine Total 650 ml 700 ml Laboratory Tests 11/08/18 04:50: White Blood Count 6.8, Red Blood Count 4.72, Hemoglobin 11.9L, Hematocrit 38.0L , Mean Corpuscular Volume 80, Mean Corpuscular Hemoglobin 25.1L, Mean Corpuscular Hemoglobin Concent 31.2L, Red Cell Distribution Width 16.0H, Platelet Count 253, Mean Platelet Volume 6.7, Neutrophils (%) (Auto) , Lymphocytes (%) (Auto) , Monocytes (%) (Auto) , Eosinophils (%) (Auto) , Basophils (%) (Auto) , Differential Total Cells Counted 100, Neutrophils % ( Manual) 49, Lymphocytes % (Manual) 27, Monocytes % (Manual) 17H, Eosinophils % ( Manual) 7H, Basophils % (Manual) 0, Band Neutrophils 0, Platelet Estimate Adequate, Platelet Morphology Normal, Hypochromasia 1+, Anisocytosis 1+, Sodium Level 137, Potassium Level 5.4H, Chloride Level 104, Carbon Dioxide Level 25, Anion Gap 8, Blood Urea Nitrogen 26H, Creatinine 1.5H, Estimat Glomerular Filtration Rate 56.4, Glucose Level 84, Calcium Level 8.5 Height (Feet): 6 Height (Inches): 2.00 Weight (Pounds): 146 General Appearance: lethargic EENT: normal ENT inspection Neck: normal alignment Cardiovascular: normal peripheral pulses, normal rate, regular rhythm Respiratory/Chest: chest wall non-tender, decreased breath sounds Abdomen: normal bowel sounds, non tender, soft Extremities: normal inspection Edema: no edema noted Arm (L), no edema noted Arm (R), no edema noted Leg (L), no edema noted Leg (R), no edema noted Pedal (L), no edema noted Pedal (R), no edema noted Generalized Neurologic: motor weakness Skin: normal pigmentation, warm/dry Fabio Tracey DO Nov 08, 2018 08:52
[2018-11-08] MEDS: Theophylline ER 100mg ORAL SCH ×2 (10:57→20:21)
[2018-11-08] MEDS: Albuterol/Ipratropium 3ml neb INH SCH ×2 (13:00→19:00)
[2018-11-08] MEDS: Solu-MEDROL 125mg Inj IV SCH ×2 (13:41→22:02)
--- NOTE | 2018-11-08 15:28 | Cardiology Progress Note ---
Assessment/Plan Assessment/Plan 1. Chronic recurrent chest pain. 2. Visible foreign body in the left sternal area consistent with sternal wires. 3. Coronary artery disease, status post coronary artery bypass grafting and prior PCI. 4. COPD. 5. Chronic pain. 6. Osteomyelitis of lower extremity. echo normal wall motion all torp neg on steroid as per dr kay [facility] as well to call Subjective Cardiovascular: Denies: chest pain Respiratory: Reports: shortness of breath Genitourinary: Denies: burning Objective Last 24 Hour Vital Signs Date Time Temp Pulse Resp B/P (MAP) Pulse Ox O2 Delivery O2 Flow Rate FiO2 11/08/18 13:22 Room Air 11/08/18 13:21 Room Air 11/08/18 12:15 97.2 98 20 121/72 (88) 94 11/08/18 09:00 Room Air Room Air Room Air Room Air 11/08/18 08:26 78 18 98 Room Air 21 11/08/18 08:16 75 20 93 Room Air 21 11/08/18 08:15 75 18 Room Air 21 11/08/18 08:10 91 135/80 11/08/18 08:00 97.4 99 18 118/63 (81) 97 11/08/18 05:15 135/80 (98) 11/08/18 04:00 97.3 91 20 169/105 (126) 94 11/08/18 00:00 98.2 90 17 130/70 (90) 97 11/07/18 21:00 Room Air Room Air Room Air Room Air 11/07/18 20:50 91 16 Room Air 21 11/07/18 20:00 98.0 93 18 133/69 (90) 98 11/07/18 16:00 99.2 102 18 101/62 (75) 97 General Appearance: no apparent distress, alert Cardiovascular: normal rate, regular rhythm Respiratory/Chest: lungs clear Abdomen: normal bowel sounds, non tender, soft Extremities: no swelling Intake and Output 11/07/18 11/08/18 18:59 06:59 Intake Total 600 ml 400 ml Output Total 650 ml 700 ml Balance -50 ml -300 ml Intake Oral 600 ml 400 ml Output Urine Total 650 ml 700 ml Laboratory Tests Test 11/08/18 04:50 White Blood Count 6.8 K/UL (4.8-10.8) Red Blood Count 4.72 M/UL (4.70-6.10) Hemoglobin 11.9 G/DL (14.2-18.0) L Hematocrit 38.0 % (42.0-52.0) L Mean Corpuscular Volume 80 FL (80-99) Mean Corpuscular Hemoglobin 25.1 PG (27.0-31.0) L Mean Corpuscular Hemoglobin Concent 31.2 G/DL (32.0-36.0) L Red Cell Distribution Width 16.0 % (11.6-14.8) H Platelet Count 253 K/UL (150-450) Mean Platelet Volume 6.7 FL (6.5-10.1) Neutrophils (%) (Auto) % (45.0-75.0) Lymphocytes (%) (Auto) % (20.0-45.0) Monocytes (%) (Auto) % (1.0-10.0) Eosinophils (%) (Auto) % (0.0-3.0) Basophils (%) (Auto) % (0.0-2.0) Differential Total Cells Counted 100 Neutrophils % (Manual) 49 % (45-75) Lymphocytes % (Manual) 27 % (20-45) Monocytes % (Manual) 17 % (1-10) H Eosinophils % (Manual) 7 % (0-3) H Basophils % (Manual) 0 % (0-2) Band Neutrophils 0 % (0-8) Platelet Estimate Adequate Platelet Morphology Normal Hypochromasia 1+ Anisocytosis 1+ Sodium Level 137 MMOL/L (136-145) Potassium Level 5.4 MMOL/L (3.5-5.1) H Chloride Level 104 MMOL/L (98-107) Carbon Dioxide Level 25 MMOL/L (21-32) Anion Gap 8 mmol/L (5-15) Blood Urea Nitrogen 26 mg/dL (7-18) H Creatinine 1.5 MG/DL (0.55-1.30) H Estimat Glomerular Filtration Rate 56.4 mL/min (>60) Glucose Level 84 MG/DL (74-106) Calcium Level 8.5 MG/DL (8.5-10.1) Sergio Anaya MD Nov 08, 2018 15:28
[2018-11-09] VITALS: BP 172/87
[2018-11-09 04:00] VITALS: BP 144/69
[2018-11-09] MEDS: Solu-MEDROL 125mg Inj IV SCH (05:51)
[2018-11-09 07:45] LABS: BASOPHILS % (AUTO) 0.5 % (0.0-2.0); HEMATOCRIT 39.3 % (42.0-52.0); HEMOGLOBIN 12.5 G/DL (14.2-18.0); LYMPHOCYTES % (AUTO) 13.8 % (20.0-45.0); MEAN CORPUSCULAR VOLUME 81 FL (80-99); MONOCYTES % (AUTO) 1.7 % (1.0-10.0); NEUTROPHILS % (AUTO) 84.1 % (45.0-75.0); PLATELET COUNT 293 K/UL (150-450); RED BLOOD COUNT 4.88 M/UL (4.70-6.10); RED CELL DISTRIBUTION WIDTH 15.5 % (11.6-14.8); WHITE BLOOD COUNT 7.5 K/UL (4.8-10.8)
[2018-11-09 08:00] VITALS: BP 128/69
[2018-11-09] MEDS: Albuterol/Ipratropium 3ml neb INH SCH (08:03)
[2018-11-09 08:12] LABS: ANION GAP 11 mmol/L (5-15); BLOOD UREA NITROGEN 30 mg/dL (7-18); CALCIUM 8.9 MG/DL (8.5-10.1); CARBON DIOXIDE 23 MMOL/L (21-32); CHLORIDE 104 MMOL/L (98-107); CREATININE 1.3 MG/DL (0.55-1.30); POTASSIUM 4.7 MMOL/L (3.5-5.1); SODIUM 138 MMOL/L (136-145)
[2018-11-09] MEDS: Heparin 5000 units/ml inj SUBQ SCH (09:00)
[2018-11-09] MEDS: Theophylline ER 100mg ORAL SCH (09:50)
[2018-11-09] MEDS: Aspirin Baby 81mg ORAL SCH (09:51)
--- NOTE | 2018-11-09 10:20 | Infectious Diseases Prog Note ---
Assessment/Plan Assessment/Plan Assessment: Afebrile No leukocytosis R Leg swelling/pain, mild cellulitisl sp Rx -v/ duplex: no DVT Hx of Chronic R leg ulcer; healing- no signs of infection 10/05 MRI : No definite evidence of osteomyelitis. emphysema/COPD CAD/UT s/p CABG/ stents x2 chronic pain s/p PPM HTN severe malnutrition MDD tobacco abuse seizure disorder chronic R>L edema recurrent leg cellulitis DM2 bedbound recurrent admissions (for CHF/COPD exacerbation, recurrent cellulitis) Plan: -Cont to monitor off abx -11/07 SP Keflex #5 -10/04 SP Doxycycline orally day # 5 -f/u cx -Monitor CBC/CMP, temperatures -wound care -leg elevation, compression stockins Thank you for this consultation. Will continue to follow along with you. Discussed with RN. Subjective Allergies: Coded Allergies: EGG (Verified Allergy, Unknown, 09/28/18) MEPERIDINE (Verified Allergy, Unknown, 09/28/18) MORPHINE (Verified Allergy, Unknown, 09/28/18) NITROGLYCERIN (Verified Allergy, Unknown, hives, 09/28/18) Subjective afebrile at RA Objective Vital Signs Last 24 Hour Vital Signs Date Time Temp Pulse Resp B/P (MAP) Pulse Ox O2 Delivery O2 Flow Rate FiO2 11/09/18 09:50 82 128/69 11/09/18 08:10 82 18 98 Room Air 21 11/09/18 08:03 84 14 99 Room Air 21 11/09/18 08:00 97.6 88 18 128/69 (88) 97 11/09/18 04:00 97.7 91 19 144/69 (94) 95 11/09/18 00:00 98.1 90 19 172/87 (115) 96 11/08/18 21:00 Room Air Room Air Room Air Room Air 11/08/18 20:00 99.7 104 18 142/76 (98) 98 11/08/18 19:00 Room Air 21 11/08/18 19:00 Room Air 21 11/08/18 16:00 96.4 105 20 149/88 (108) 94 11/08/18 13:22 Room Air 11/08/18 13:21 Room Air 11/08/18 12:15 97.2 98 20 121/72 (88) 94 Height (Feet): 6 Height (Inches): 2.00 Weight (Pounds): 146 Objective General Appearance: cachetic Lines, tubes and drains: peripheral HEENT: normocephalic, atraumatic Neck: non-tender, normal alignment Respiratory/Chest: chest wall non-tender, lungs clear Cardiovascular/Chest: normal peripheral pulses. R leg swelling and TTP Abdomen: normal bowel sounds Laboratory Tests Test 11/09/18 06:20 White Blood Count 7.5 K/UL (4.8-10.8) Red Blood Count 4.88 M/UL (4.70-6.10) Hemoglobin 12.5 G/DL (14.2-18.0) L Hematocrit 39.3 % (42.0-52.0) L Mean Corpuscular Volume 81 FL (80-99) Mean Corpuscular Hemoglobin 25.5 PG (27.0-31.0) L Mean Corpuscular Hemoglobin Concent 31.7 G/DL (32.0-36.0) L Red Cell Distribution Width 15.5 % (11.6-14.8) H Platelet Count 293 K/UL (150-450) Mean Platelet Volume 6.0 FL (6.5-10.1) L Neutrophils (%) (Auto) 84.1 % (45.0-75.0) H Lymphocytes (%) (Auto) 13.8 % (20.0-45.0) L Monocytes (%) (Auto) 1.7 % (1.0-10.0) Eosinophils (%) (Auto) 0.0 % (0.0-3.0) Basophils (%) (Auto) 0.5 % (0.0-2.0) Sodium Level 138 MMOL/L (136-145) Potassium Level 4.7 MMOL/L (3.5-5.1) Chloride Level 104 MMOL/L (98-107) Carbon Dioxide Level 23 MMOL/L (21-32) Anion Gap 11 mmol/L (5-15) Blood Urea Nitrogen 30 mg/dL (7-18) H Creatinine 1.3 MG/DL (0.55-1.30) Estimat Glomerular Filtration Rate > 60 mL/min (>60) Glucose Level 157 MG/DL (74-106) H Calcium Level 8.9 MG/DL (8.5-10.1) Current Medications Medications (Trade) Dose Ordered Sig/Aminata Route PRN Reason Start Time Stop Time Status Last Admin Dose Admin Acetaminophen (Tylenol) 650 mg Q4H PRN ORAL FEVER 11/06/18 00:45 12/02/18 20:44 Albuterol/ Ipratropium (Albuterol/ Ipratropium) 3 ml Q4H PRN HHN Shortness of Breath 11/08/18 08:22 11/10/18 08:21 Albuterol/ Ipratropium (Albuterol/ Ipratropium) 3 ml TIDRT INH 11/08/18 13:00 11/13/18 12:59 11/09/18 08:03 Amlodipine Besylate (Norvasc) 10 mg DAILY ORAL 11/06/18 09:00 12/03/18 08:59 11/09/18 09:50 Aspirin (ASA) 162 mg DAILY ORAL 11/06/18 09:00 12/03/18 08:59 11/09/18 09:51 Atorvastatin Calcium (Lipitor) 10 mg BEDTIME ORAL 11/06/18 21:00 12/04/18 22:14 11/08/18 20:21 Clopidogrel Bisulfate (Plavix) 75 mg DAILY ORAL 11/06/18 09:00 12/03/18 08:59 11/09/18 09:50 Heparin Sodium (Porcine) (Heparin 5000 units/ml) 5,000 units EVERY 12 HOURS SUBQ 11/06/18 09:00 12/03/18 08:59 Hydromorphone HCl (Dilaudid) 3 mg Q3H PRN IVP Severe Pain (Pain Scale 7-10) 11/08/18 08:22 11/12/18 08:21 11/09/18 09:51 Levetiracetam (Keppra) 500 mg DAILY ORAL 11/06/18 09:00 12/03/18 08:59 11/09/18 09:50 Lisinopril (Zestril) 10 mg Q8HR PRN ORAL For High Blood Pressure 11/06/18 02:25 12/06/18 02:24 Future hold 11/06/18 02:59 Methylprednisolone Sodium Succinate (Solu-MEDROL) 60 mg Q8HR IV 11/08/18 14:00 12/08/18 13:59 11/09/18 05:51 Mirtazapine (Remeron) 30 mg BEDTIME ORAL 11/06/18 21:00 12/03/18 20:59 11/08/18 20:21 Ondansetron HCl (Zofran) 4 mg Q6H PRN IVP Nausea & Vomiting 11/06/18 02:45 12/02/18 20:44 Polyethylene Glycol (Miralax) 17 gm DAILYPRN PRN ORAL Constipation 11/06/18 20:45 12/02/18 20:44 Temazepam (Restoril) 15 mg HSPRN PRN ORAL Insomnia 11/08/18 08:30 11/11/18 08:29 Theophylline (Wilfrido-Dur) 100 mg EVERY 12 HOURS ORAL 11/06/18 09:00 12/02/18 20:59 11/09/18 09:50 Jessica Parry M.D. Nov 09, 2018 10:20
[2018-11-09] MEDS ORDERED: NS 500ML ONE (10:58)
[2018-11-09 12:00] VITALS: BP 131/71
--- NOTE | 2018-11-09 23:43 | General Progress Note ---
Assessment/Plan Problem List: (1) Major depression ICD Codes: F32.9 - Major depressive disorder, single episode, unspecified SNOMED: 884678576 Qualifiers: Status: stable, progressing Assessment/Plan Remeron 30mg qhs provided ro/st Subjective Date patient seen: Nov 09, 2018 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: Reports: anxiety, depressed, emotional problems Allergies: Coded Allergies: EGG (Verified Allergy, Unknown, 09/28/18) MEPERIDINE (Verified Allergy, Unknown, 09/28/18) MORPHINE (Verified Allergy, Unknown, 09/28/18) NITROGLYCERIN (Verified Allergy, Unknown, hives, 09/28/18) Objective Last 24 Hour Vital Signs Date Time Temp Pulse Resp B/P (MAP) Pulse Ox O2 Delivery O2 Flow Rate FiO2 11/09/18 12:00 98.8 100 18 131/71 (91) 97 11/09/18 09:50 82 128/69 11/09/18 09:00 Room Air Room Air Room Air Room Air 11/09/18 08:10 82 18 98 Room Air 21 11/09/18 08:03 84 14 99 Room Air 21 11/09/18 08:00 97.6 88 18 128/69 (88) 97 11/09/18 04:00 97.7 91 19 144/69 (94) 95 11/09/18 00:00 98.1 90 19 172/87 (115) 96 Intake and Output 11/08/18 11/09/18 19:00 07:00 Intake Total 760 ml Output Total 800 ml 275 ml Balance -40 ml -275 ml Intake Oral 360 ml IV Total 400 ml Output Urine Total 800 ml 275 ml Laboratory Tests 11/09/18 06:20: White Blood Count 7.5, Red Blood Count 4.88, Hemoglobin 12.5L, Hematocrit 39.3L , Mean Corpuscular Volume 81, Mean Corpuscular Hemoglobin 25.5L, Mean Corpuscular Hemoglobin Concent 31.7L, Red Cell Distribution Width 15.5H, Platelet Count 293, Mean Platelet Volume 6.0L, Neutrophils (%) (Auto) 84.1H, Lymphocytes (%) (Auto) 13.8L, Monocytes (%) (Auto) 1.7, Eosinophils (%) (Auto) 0.0, Basophils (%) (Auto) 0.5, Sodium Level 138, Potassium Level 4.7, Chloride Level 104, Carbon Dioxide Level 23, Anion Gap 11, Blood Urea Nitrogen 30H, Creatinine 1.3, Estimat Glomerular Filtration Rate > 60, Glucose Level 157H, Calcium Level 8.9 Height (Feet): 6 Height (Inches): 2.00 Weight (Pounds): 146 General Appearance: no apparent distress, alert Neurologic: oriented x 3, responsive, depressed affect Rachael Buckley MD Nov 09, 2018 23:43
--- NOTE | 2018-11-10 13:04 | Discharge Summary ---
Discharge Summary Discharge Summary _ DATE OF ADMISSION: 11/02/2018 DATE OF DISCHARGE: 11/09/2018 DISCHARGED BY: Dr. Magana REASON FOR ADMISSION: 67 years old male with past medical history of COPD/emphysema, coronary artery disease with history of CABG and PCI, peripheral vascular disease, seizure disorder ,chronic right foot ulcer , presented with complaint of swelling of right lower leg around at calf area. Patient had a chronic ulcer at the right ankle. He also reported intermittent chest pain, not associated with exertion or shortness of breath. He denied fever and chills. No nausea, no vomiting . Troponin was negative. Pro BNP 1003. Stable electrolytes and renal parameters. No leukocytosis . Chest x-ray revealed no acute cardiopulmonary findings. Patient was admitted for further management with diagfnoses of chronic cehst pain, COPD/emphysema, right lower leg pain, chronic ulcer right CONSULTANTS: medication tech Dr. Anaya pulmonary Dr. Magana ID specialist Dr. Reich psychiatrist [facility] COURSE: Patient admitted initially to telemetry floor. Venous duplex of right lower extremity revealed no evidence of acute DVT. Pain management was addressed. ID consult was requested. Patient was on antibiotics for mild cellulitis right lower leg. Patient also with chronic right leg ulcer which showed no signs of infection. MRI done on 10/05 and revealed no definite evidence of osteomyelitis . Patient completed antibiotic for treatment of colitis. Patient afebrile, no leukocytosis. Supplemental oxygen provided as needed to keep pulse oximetry above 92%. Pulmonary toilet provided via hand-held nebulizing . Trial of theophylline initiated. On 11/08 patient developed wheezing and chest tightness , and subsequently started on IV steroids. Steroids changed to oral prior to discharge. Antiplatelet therapy with aspirin provided, statin was continued. Blood pressure was managed with calcium channel rasta , and remained stable. Promotional Marketing Agent followed. Serial troponin were negative. Echocardiogram revealed preserved ejection fraction 60% and evidence of mild pulmonary hypertension. Per medication tech patient had chronic recurrent atypical chest pain, not associated with exertion. Recent cardiac catheterization ar [facility] [place] was unremarkable. Patient had visible foreign body in the left sternal area, consistent with exposed sternal wires. Promotional Marketing Agent referred patient to thoracic surgeon for possible removal of exposed sternal wires, probably causing him intermittent atypical chest pain and could further lead to infection. Seizure precautions were maintain ,Keppra was continued. DVT and GI prophylaxis provided. Pain management was addressed ,and pain was controlled. TSH was within normal. Current dose of levothyroxine was continued. Dietary recommendation implemented and plan of care. Bowel regimen instituted. Patient noted to have potassium 5.4 creatinine 1.5 on 11/07. Kayexalate given. 500 ml of IV fluids provided . Prior to discharge potassium- 4.7. Creatinine down to 1.3. Psychiatrist followed. Psychiatrist followed. Patient started on Remeron. Reality orientation and supportive therapy provided. Patient clinically stabilized and was ready for discharge with outpatient follow -up with thoracic surgeon. FINAL DIAGNOSES: Chronic recurrent atypical chest pain , probably due to exposed sternal wires COPD/emphysema Acute bronchospasm Mild cellulitis right leg Chronic right leg ulcer Chronic recurrent chest pain Coronary artery disease, status post CABG and PCI Visible foreign body in the left sternal area consistent with sternal wires PVD Hypertension Seizure disorder Hypothyroidism Severe protein calorie malnutrition Mild pulmonary hypertension likely related to COPD-major depression Hypokalemia Major depression DISCHARGE MEDICATIONS: List of medication was sent with the patient DISCHARGE INSTRUCTIONS: Patient was discharged home Outpatient follow-up with thoracic surgeon at [facility] for possible removal of exposed wires. Kristine Black NP Nov 10, 2018 13:04
== END 2018-11-09 13:10 | disposition home or self-care (01) | DRG 206 ==
LOC: EMR 20:11 → 2E 20:45 → EDBEDREQ 20:57 → 4E 11-05 22:45
DX: T82.847A Pain due to cardiac prosthetic devices, implants and grafts, initial encounter (principal); E43 Unspecified severe protein-calorie malnutrition; I27.20 Pulmonary hypertension, unspecified; J43.9 Emphysema, unspecified; L03.115 Cellulitis of right lower limb; I11.0 Hypertensive heart disease with heart failure; I50.9 Heart failure, unspecified; T85.692A Other mechanical complication of permanent sutures, initial encounter; L89.510 Pressure ulcer of right ankle, unstageable; M86.661 Other chronic osteomyelitis, right tibia and fibula; Z95.1 Presence of aortocoronary bypass graft; Y83.2 Surgical operation with anastomosis, bypass or graft as the cause of abnormal reaction of the patient, or of later complication, without mention of misadventure at the time of the procedure; I73.9 Peripheral vascular disease, unspecified; G40.909 Epilepsy, unspecified, not intractable, without status epilepticus; E03.9 Hypothyroidism, unspecified; F32.9 Major depressive disorder, single episode, unspecified; E87.6 Hypokalemia; Z88.6 Allergy status to analgesic agent; Z88.8 Allergy status to other drugs, medicaments and biological substances; Z91.018 Allergy to other foods; I25.2 Old myocardial infarction; I25.10 Atherosclerotic heart disease of native coronary artery without angina pectoris; Z95.5 Presence of coronary angioplasty implant and graft; F17.200 Nicotine dependence, unspecified, uncomplicated; M54.9 Dorsalgia, unspecified; Z79.02 Long term (current) use of antithrombotics/antiplatelets; Z68.1 Body mass index [BMI] 19.9 or less, adult
CPT/HCPCS: 36415; 71045; 80048; 80053; 80061; 80299; 82550; 82553; 83880; 84439; 84443; 84481; 84484; 85007; 85025; 85610; 85730; 86140; 93005; 93306; 93971; 94640; 94664; 96374; 96375; 99285; J2405; J7620

== ENCOUNTER 2018-11-20 22:00 | Inpatient (IN) | payer MEDICARE, MEDICAID ==
[~2018-11-20] VITALS: Ht 182.9 cm; Wt 60.8 kg
[~2018-11-20 22:00] MED LIST changes: +CLOPIDOGREL75 MG ORAL; +PREDNISONE50 MG ORAL; +ROXICODONE30 M1 ORAL
--- NOTE | 2018-11-20 22:28 | Emergency Room Report ---
History of Present Illness General Chief Complaint: Chest Pain Source: Patient, Medical Record Present Illness HPI Patient is a 67-year-old male presented after increased right-sided chest pain. Patient had a gradual onset of symptoms. He had prior history of congestive heart failure. Patient states he was noted to have increased blood pressure by his home health nurse. Patient is chronically on pain medications and has recently had a home health visit and was advised to come to the hospital after blood pressure was noted to be somewhat elevated. Patient denies any fever. He denies any productive cough. He reports having worsened pain patient states that he had increased swelling to his right lower extremity. Patient had recently been discharged from the hospital Allergies: Coded Allergies: EGG (Verified Allergy, Unknown, 09/28/18) MEPERIDINE (Verified Allergy, Unknown, 09/28/18) MORPHINE (Verified Allergy, Unknown, 09/28/18) NITROGLYCERIN (Verified Allergy, Unknown, hives, 09/28/18) Patient History Past Medical History: see triage record Reviewed Nursing Documentation: PMH: Agreed; PSxH: Agreed Nursing Documentation-PMH Past Medical History: No History, Except For Hx Cardiac Problems: Yes Hx Hypertension: Yes Hx Pacemaker: No Hx Asthma: No Hx COPD: Yes Hx Diabetes: No Hx Cancer: No Hx Gastrointestinal Problems: Yes - Stomach Ulcer, Hep C Hx Dialysis: No - kidney problems Hx Neurological Problems: Yes Hx Cerebrovascular Accident: No Hx Transient Ischemic Attacks: No Hx Alzheimer's Disease: No Hx Encephalitis: No Hx Seizures: Yes Hx Epilepsy: No Hx Multiple Sclerosis: No Hx Cerebral Palsy: No Hx Amyotrophic Lat Sclerosis: No Hx Guillian-Madison Syndrome: No Hx Paralysis: No Hx Peripheral Neuropathy: No Hx Spinal Cord Injury: No Hx Head Trauma: No Hx Traumatic Brain Injury: No Hx Memory Loss: No Hx Concentration Difficulty: No Hx Speech Problem: No Hx Tremors: Yes Hx Vertigo: No Hx Dizziness: No Hx Syncope: Yes Hx Headaches: Yes Hx Aphasia: No Hx Dysphasia: Yes Hx Numbness: No Hx Weakness: Yes Hx Fatigue: No Hx Neurologic Surgery: No Hx Brain Shunt: No Review of Systems All Other Systems: negative except mentioned in HPI Physical Exam Vital Signs Date Time Temp Pulse Resp B/P (MAP) Pulse Ox O2 Delivery O2 Flow Rate FiO2 11/20/18 22:03 97.0 105 20 180/99 100 Room Air Sp02 EP Interpretation: reviewed, normal General Appearance: normal inspection, alert, GCS 15, Chronically Ill Head: atraumatic ENT: normal ENT inspection, hearing grossly normal, normal voice Neck: normal inspection, full range of motion, supple, no bony tend Respiratory: normal inspection, no respiratory distress, no retraction, no wheezing Cardiovascular #1: regular rate, rhythm, edema - right greater than left Gastrointestinal: normal inspection, normal bowel sounds, non tender, soft, no guarding, no hernia Genitourinary: no CVA tenderness Musculoskeletal: back normal, normal range of motion, swelling - right lower extremity edema Neurologic: normal inspection, alert, oriented x3, responsive, speech normal Psychiatric: normal inspection, judgement/insight normal, mood/affect normal Skin: normal inspection, normal color, no rash Medical Decision Making Diagnostic Impression: Primary Impression: Chronic ulcer of right leg Additional Impressions: COPD exacerbation CHF exacerbation ER Course Patient presented for chest pain. Differential diagnosis included but was not limited to acute coronary syndrome, pulmonary embolism, pneumonia, aortic dissection, shingles, pneumothorax, aortic dissection, esophageal rupture, pericarditis. Because of complexity of patient's case laboratory testing and imaging studies were ordered. EKG interpreted by me showed normal sinus rhythm with a rate of [address] changes. Patient was noted to have slight peaking of his T waves. Patient was noted to have mild hyperkalemia on laboratory testing. Patient was given IV pain medications.Patient was given IV Lasix.Dr. Phil Wright was contacted for inpatient management due to covering physician for Dr. Magana Labs Test 11/20/18 23:15 White Blood Count 8.0 K/UL (4.8-10.8) Red Blood Count 5.08 M/UL (4.70-6.10) Hemoglobin 13.5 G/DL (14.2-18.0) Hematocrit 41.9 % (42.0-52.0) Mean Corpuscular Volume 82 FL (80-99) Mean Corpuscular Hemoglobin 26.6 PG (27.0-31.0) Mean Corpuscular Hemoglobin Concent 32.2 G/DL (32.0-36.0) Red Cell Distribution Width 16.8 % (11.6-14.8) Platelet Count 254 K/UL (150-450) Mean Platelet Volume 6.3 FL (6.5-10.1) Neutrophils (%) (Auto) 51.5 % (45.0-75.0) Lymphocytes (%) (Auto) 36.3 % (20.0-45.0) Monocytes (%) (Auto) 7.8 % (1.0-10.0) Eosinophils (%) (Auto) 2.9 % (0.0-3.0) Basophils (%) (Auto) 1.5 % (0.0-2.0) Prothrombin Time 10.2 SEC (9.30-11.50) Prothromb Time International Ratio 1.0 (0.9-1.1) Activated Partial Thromboplast Time 30 SEC (23-33) Sodium Level 141 MMOL/L (136-145) Potassium Level 5.1 MMOL/L (3.5-5.1) Chloride Level 105 MMOL/L (98-107) Carbon Dioxide Level 26 MMOL/L (21-32) Anion Gap 10 mmol/L (5-15) Blood Urea Nitrogen 20 mg/dL (7-18) Creatinine 1.4 MG/DL (0.55-1.30) Estimat Glomerular Filtration Rate > 60 mL/min (>60) Glucose Level 88 MG/DL (74-106) Calcium Level 9.0 MG/DL (8.5-10.1) Total Bilirubin 0.2 MG/DL (0.2-1.0) Aspartate Amino Transf (AST/SGOT) 18 U/L (15-37) Alanine Aminotransferase (ALT/SGPT) 20 U/L (12-78) Alkaline Phosphatase 125 U/L (46-116) Total Creatine Kinase 110 U/L (26-308) Creatine Kinase MB 1.6 NG/ML (0.0-3.6) Creatine Kinase MB Relative Index 1.4 Troponin I 0.008 ng/mL (0.000-0.056) Pro-B-Type Natriuretic Peptide 1870 pg/mL (0-125) Total Protein 7.7 G/DL (6.4-8.2) Albumin 3.6 G/DL (3.4-5.0) Globulin 4.1 g/dL Albumin/Globulin Ratio 0.9 (1.0-2.7) Lipase 176 U/L (73-393) EKG Diagnostic Results Rate: tachycardiac Rhythm: NSR ST Segments: other - peaked t waves Last Vital Signs Date Time Temp Pulse Resp B/P (MAP) Pulse Ox O2 Delivery O2 Flow Rate FiO2 11/20/18 22:03 97.0 105 20 180/99 100 Room Air Status: improved Disposition: PLACE IN OBSERVATION Condition: Will Arthur MD Nov 20, 2018 22:28
[2018-11-20] MEDS ORDERED: fentaNYL 100 mcg/2 mL IV ONE (22:30)
[2018-11-20 23:30] VITALS: BP 162/106
[2018-11-20 23:43] LABS: BASOPHILS % (AUTO) 1.5 % (0.0-2.0); EOSINOPHILS % (AUTO) 2.9 % (0.0-3.0); HEMATOCRIT 41.9 % (42.0-52.0); HEMOGLOBIN 13.5 G/DL (14.2-18.0); LYMPHOCYTES % (AUTO) 36.3 % (20.0-45.0); MEAN CORPUSCULAR VOLUME 82 FL (80-99); MONOCYTES % (AUTO) 7.8 % (1.0-10.0); NEUTROPHILS % (AUTO) 51.5 % (45.0-75.0); PLATELET COUNT 254 K/UL (150-450); RED BLOOD COUNT 5.08 M/UL (4.70-6.10); RED CELL DISTRIBUTION WIDTH 16.8 % (11.6-14.8)
[2018-11-20 23:49] LABS: ANION GAP 10 mmol/L (5-15); BLOOD UREA NITROGEN 20 mg/dL (7-18); CARBON DIOXIDE 26 MMOL/L (21-32); CHLORIDE 105 MMOL/L (98-107); CREATININE 1.4 MG/DL (0.55-1.30); POTASSIUM 5.1 MMOL/L (3.5-5.1); SODIUM 141 MMOL/L (136-145)
[2018-11-21] VITALS (8 sets, daily range): BP systolic 123–180; BP diastolic 65–97
[2018-11-21 00:03] LABS: ALANINE AMINOTRANSFERASE 20 U/L (12-78); ALBUMIN 3.6 G/DL (3.4-5.0); ALBUMIN/GLOBULIN RATIO 0.9 (1.0-2.7); ALKALINE PHOSPHATASE 125 U/L (46-116); ASPARTATE AMINO TRANSFERASE 18 U/L (15-37); BILIRUBIN,TOTAL 0.2 MG/DL (0.2-1.0); CKMB 1.6 NG/ML (0.0-3.6); CREATINE KINASE 110 U/L (26-308)
[2018-11-21] MEDS ORDERED: fentaNYL 100 mcg/2 mL IV ONE (00:15)
[2018-11-21 02:18] LABS: APPEARANCE,URINE CLEAR; BILIRUBIN, URINE NEGATIVE (NEGATIVE); COLOR,URINE PALE YELLOW; GLUCOSE, URINE (UA) NEGATIVE (NEGATIVE); KETONES,URINE NEGATIVE (NEGATIVE); LEUKOCYTE ESTERASE ,URINE NEGATIVE (NEGATIVE); NITRITE,URINE NEGATIVE (NEGATIVE); PH,URINE 6 (4.5-8.0); PROTEIN,URINE NEGATIVE (NEGATIVE); UROBILINOGEN,URINE NORMAL MG/DL (0.0-1.0)
[2018-11-21] MEDS ORDERED: Albuterol 90mcg Inhaler 8gm INH PRN (06:45)
[2018-11-21] MEDS: Theophylline ER 100mg ORAL SCH ×2 (08:14→22:12)
[2018-11-21] MEDS: Metoprolol Tartrate 50mg tab ORAL SCH ×2 (08:15→22:12)
[2018-11-21] MEDS: Docusate 100mg cap ORAL SCH ×2 (08:15→17:19)
[2018-11-21] MEDS: HYDROmorphone 4mg tab ORAL PRN ×2 (08:17→22:18)
[2018-11-21 09:33] LABS: BASOPHILS % (AUTO) 3.7 % (0.0-2.0); EOSINOPHILS % (AUTO) 3.5 % (0.0-3.0); HEMATOCRIT 40.4 % (42.0-52.0); HEMOGLOBIN 12.6 G/DL (14.2-18.0); LYMPHOCYTES % (AUTO) 31.4 % (20.0-45.0); MEAN CORPUSCULAR VOLUME 83 FL (80-99); MONOCYTES % (AUTO) 10.6 % (1.0-10.0); NEUTROPHILS % (AUTO) 50.8 % (45.0-75.0); PLATELET COUNT 344 K/UL (150-450); RED BLOOD COUNT 4.87 M/UL (4.70-6.10); WHITE BLOOD COUNT 7.1 K/UL (4.8-10.8)
[2018-11-21 11:08] LABS: ALANINE AMINOTRANSFERASE 19 U/L (12-78); ALBUMIN 3.2 G/DL (3.4-5.0); ALBUMIN/GLOBULIN RATIO 0.8 (1.0-2.7); ALKALINE PHOSPHATASE 108 U/L (46-116); ANION GAP 9 mmol/L (5-15); ASPARTATE AMINO TRANSFERASE 7 U/L (15-37); BILIRUBIN,TOTAL 0.2 MG/DL (0.2-1.0); BLOOD UREA NITROGEN 16 mg/dL (7-18); CALCIUM 8.5 MG/DL (8.5-10.1); CARBON DIOXIDE 26 MMOL/L (21-32); CHLORIDE 103 MMOL/L (98-107); CREATININE 1.3 MG/DL (0.55-1.30); PHOSPHORUS 3.6 MG/DL (2.5-4.9); POTASSIUM 4.4 MMOL/L (3.5-5.1); SODIUM 138 MMOL/L (136-145)
[2018-11-21] MEDS: Heparin 5000 units/ml inj SUBQ SCH ×2 (14:00→22:00)
--- NOTE | 2018-11-21 14:38 | Cardiac Electrophysiology PN ---
Subjective Subjective [id number] Objective Last 24 Hour Vital Signs Date Time Temp Pulse Resp B/P (MAP) Pulse Ox O2 Delivery O2 Flow Rate FiO2 11/21/18 12:00 65 11/21/18 12:00 97.5 68 18 148/65 (92) 96 11/21/18 09:00 Room Air 11/21/18 08:16 91 180/96 11/21/18 08:15 91 180/96 11/21/18 08:00 98.8 91 18 180/96 (124) 97 11/21/18 08:00 104 11/21/18 04:12 Room Air 11/21/18 03:54 90 11/21/18 03:54 97.5 94 19 154/97 (116) 98 11/21/18 03:40 98.4 84 18 152/82 99 Room Air 11/21/18 03:35 98.4 84 18 152/82 99 Room Air 11/21/18 01:30 98.4 98 18 137/74 99 Room Air 11/21/18 00:49 98.4 11/21/18 00:30 98.4 98 18 180/79 97 Room Air 11/21/18 00:02 98.4 11/20/18 23:30 98.4 102 20 162/106 97 Room Air 11/20/18 22:20 105 20 Room Air 11/20/18 22:03 97.0 105 20 180/99 100 Room Air Intake and Output 11/20/18 11/21/18 19:00 07:00 Intake Total 150 ml Balance 150 ml Intake Oral 150 ml # Voids 1 Laboratory Tests Test 11/20/18 23:15 11/21/18 02:00 11/21/18 09:10 White Blood Count 8.0 K/UL (4.8-10.8) 7.1 K/UL (4.8-10.8) Red Blood Count 5.08 M/UL (4.70-6.10) 4.87 M/UL (4.70-6.10) Hemoglobin 13.5 G/DL (14.2-18.0) L 12.6 G/DL (14.2-18.0) L Hematocrit 41.9 % (42.0-52.0) L 40.4 % (42.0-52.0) L Mean Corpuscular Volume 82 FL (80-99) 83 FL (80-99) Mean Corpuscular Hemoglobin 26.6 PG (27.0-31.0) L 25.9 PG (27.0-31.0) L Mean Corpuscular Hemoglobin Concent 32.2 G/DL (32.0-36.0) 31.3 G/DL (32.0-36.0) L Red Cell Distribution Width 16.8 % (11.6-14.8) H 16.0 % (11.6-14.8) H Platelet Count 254 K/UL (150-450) 344 K/UL (150-450) Mean Platelet Volume 6.3 FL (6.5-10.1) L 6.1 FL (6.5-10.1) L Neutrophils (%) (Auto) 51.5 % (45.0-75.0) 50.8 % (45.0-75.0) Lymphocytes (%) (Auto) 36.3 % (20.0-45.0) 31.4 % (20.0-45.0) Monocytes (%) (Auto) 7.8 % (1.0-10.0) 10.6 % (1.0-10.0) H Eosinophils (%) (Auto) 2.9 % (0.0-3.0) 3.5 % (0.0-3.0) H Basophils (%) (Auto) 1.5 % (0.0-2.0) 3.7 % (0.0-2.0) H Prothrombin Time 10.2 SEC (9.30-11.50) Prothromb Time International Ratio 1.0 (0.9-1.1) Activated Partial Thromboplast Time 30 SEC (23-33) Sodium Level 141 MMOL/L (136-145) 138 MMOL/L (136-145) Potassium Level 5.1 MMOL/L (3.5-5.1) 4.4 MMOL/L (3.5-5.1) Chloride Level 105 MMOL/L (98-107) 103 MMOL/L (98-107) Carbon Dioxide Level 26 MMOL/L (21-32) 26 MMOL/L (21-32) Anion Gap 10 mmol/L (5-15) 9 mmol/L (5-15) Blood Urea Nitrogen 20 mg/dL (7-18) H 16 mg/dL (7-18) Creatinine 1.4 MG/DL (0.55-1.30) H 1.3 MG/DL (0.55-1.30) Estimat Glomerular Filtration Rate > 60 mL/min (>60) > 60 mL/min (>60) Glucose Level 88 MG/DL (74-106) 133 MG/DL (74-106) H Calcium Level 9.0 MG/DL (8.5-10.1) 8.5 MG/DL (8.5-10.1) Total Bilirubin 0.2 MG/DL (0.2-1.0) 0.2 MG/DL (0.2-1.0) Aspartate Amino Transf (AST/SGOT) 18 U/L (15-37) 7 U/L (15-37) L Alanine Aminotransferase (ALT/SGPT) 20 U/L (12-78) 19 U/L (12-78) Alkaline Phosphatase 125 U/L (46-116) H 108 U/L (46-116) Total Creatine Kinase 110 U/L (26-308) Creatine Kinase MB 1.6 NG/ML (0.0-3.6) Creatine Kinase MB Relative Index 1.4 Troponin I 0.008 ng/mL (0.000-0.056) 0.007 ng/mL (0.000-0.056) Pro-B-Type Natriuretic Peptide 1870 pg/mL (0-125) H Total Protein 7.7 G/DL (6.4-8.2) 7.0 G/DL (6.4-8.2) Albumin 3.6 G/DL (3.4-5.0) 3.2 G/DL (3.4-5.0) L Globulin 4.1 g/dL 3.8 g/dL Albumin/Globulin Ratio 0.9 (1.0-2.7) L 0.8 (1.0-2.7) L Lipase 176 U/L (73-393) Urine Color Pale yellow Urine Appearance Clear Urine pH 6 (4.5-8.0) Urine Specific [place] 1.005 (1.005-1.035) Urine Protein Negative (NEGATIVE) Urine Glucose (UA) Negative (NEGATIVE) Urine Ketones Negative (NEGATIVE) Urine Blood Negative (NEGATIVE) Urine Nitrite Negative (NEGATIVE) Urine Bilirubin Negative (NEGATIVE) Urine Urobilinogen Normal MG/DL (0.0-1.0) Urine Leukocyte Esterase Negative (NEGATIVE) Phosphorus Level 3.6 MG/DL (2.5-4.9) Magnesium Level 1.9 MG/DL (1.8-2.4) Neal Ames MD Nov 21, 2018 14:38
--- NOTE | 2018-11-21 16:30 | Consultation ---
DATE OF CONSULTATION: 11/21/2018 CARDIOLOGY CONSULTATION CONSULTING PHYSICIAN: Neal Ames M.D. REFERRING PHYSICIAN: Phil Wright M.D. REASON FOR CONSULTATION: History of coronary artery disease and chest pain. HISTORY OF PRESENT ILLNESS: The patient is a 67-year-old gentleman who I am quite familiar with from other previous hospitalization. The patient has history of hypertension, coronary artery disease, and history of coronary artery bypass graft in 2009 in [facility]. He also has history of coronary angioplasty afterwards. The patient has had chronic sternal wounds as the sternal wires are coming through the skin. The patient presented to the emergency room with increasing pain at that site as well as right ankle pain. He is also on chronic pain medication and will have from home health and was asked to come to the hospital. The patient's blood pressure was also elevated. REVIEW OF SYSTEMS: Negative other than what is mentioned in the history of present illness. PAST MEDICAL HISTORY: As mentioned above. FAMILY HISTORY: Noncontributory. SOCIAL HISTORY: He lives at home. Does not smoke or drink alcohol. PHYSICAL EXAMINATION: VITAL SIGNS: Blood pressure is 148/65, it was as high as 180/96, pulse is 65, respirations 18, and temperature 97.5. HEAD AND NECK: Shows no JVD. LUNGS: Clear. CARDIOVASCULAR: Shows regular S1 and S2 with no gallop or murmur. Sternotomy scar is intact, but the lower sternal wires are eroding through the skin. ABDOMEN: Soft. EXTREMITIES: Right ankle edema. LABORATORY DATA: Show white count of 7.1, hemoglobin 12.7, hematocrit of 40, and platelet count 344,000. Sodium 138, potassium 4.4, BUN of 16, creatinine 1.3, and glucose of 133. Troponin negative x2. BNP is 1870. Urine toxicology screen, positive for opiates. ASSESSMENT AND PLAN: 1. Chest pain. This is due to the patient's sternal wound. The patient will be ruled out for myocardial infarction. The patient has had multiple previous admissions. The patient was also evaluated by General Surgery who recommended outpatient followup with CT Surgery for removal of the sternal wires. 2. Hypertension. Continue Norvasc 10 mg daily. 3. COPD. 4. Right ankle ulcer. 5. Seizure disorder. It is of note the patient had cardiac catheterization that showed no target for revascularization. In the meantime for his coronary disease, continue aspirin, Lipitor, Plavix, and metoprolol 50 mg b.i.d. Thank you very much for allowing me to participate in the care of this patient. Please do not hesitate to contact me for any questions regarding my evaluation. Neal Ames M.D. DR: Saul JOB#: [id number] CC:
[2018-11-21] MEDS: Atorvastatin 20mg tab ORAL SCH (22:12)
[2018-11-22] VITALS: BP 148/80
[2018-11-22 04:00] VITALS: BP 137/77
[2018-11-22] MEDS: Heparin 5000 units/ml inj SUBQ SCH ×3 (06:00→22:00)
[2018-11-22 08:00] VITALS: BP 136/68
[2018-11-22] MEDS: Theophylline ER 100mg ORAL SCH ×2 (08:20→20:27)
[2018-11-22] MEDS: Docusate 100mg cap ORAL SCH ×2 (08:21→17:20)
[2018-11-22] MEDS: HYDROmorphone 4mg tab ORAL PRN ×2 (08:21→17:21)
[2018-11-22] MEDS: Metoprolol Tartrate 50mg tab ORAL SCH ×2 (09:40→20:27)
[2018-11-22 11:53] VITALS: BP 136/64
--- NOTE | 2018-11-22 12:54 | General Progress Note ---
Assessment/Plan Assessment/Plan (1) Opioid dependency (2) Pain of right lower extremity (3) Osteomyelitis of right lower extremity (4) Nonhealing ulcer of right lower extremity (5) DM (diabetes mellitus) (6) Chest wall pain (7) Sternal wound Pt is to be continued on Dilaudid Pt was d/w Dr. Rivers and he concurred. Subjective Date patient seen: Nov 22, 2018 Time patient seen: 11:30 - am Allergies: Coded Allergies: EGG (Verified Allergy, Unknown, 09/28/18) MEPERIDINE (Verified Allergy, Unknown, 09/28/18) MORPHINE (Verified Allergy, Unknown, 09/28/18) NITROGLYCERIN (Verified Allergy, Unknown, hives, 09/28/18) Subjective Constitutional: Denies: chills, diaphoresis, fever, malaise, no symptoms, other , weakness HEENT: Denies: blurred vision, double vision, ear discharge, ear pain, eye pain , mouth pain, mouth swelling, no symptoms, nose congestion, nose pain, other, tearing, throat pain, throat swelling Cardiovascular: Complaining of: Chest wall pain Denies: chest pain, edema, irregular heart rate, lightheadedness, no symptoms, other, palpitations, syncope Respiratory: Denies: SOB at rest, SOB with excertion, cough, no symptoms, orthopnea, other, shortness of breath, sputum, stridor, wheezing Gastrointestinal/Abdominal: Denies: abdomen distended, abdominal pain, black stools, blood in stool, constipated, diarrhea, difficulty swallowing, nausea, no symptoms, other, poor appetite, poor fluid intake, rectal bleeding, tarry stools, vomiting Genitourinary: Denies: burning, discharge, flank pain, frequency, hematuria, incontinence, no symptoms, other, pain, urgency 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: Denies: anxiety, depressed, emotional problems, headache, no symptoms, numbness, other, paresthesia, pre-existing deficit, seizure, tingling, tremors, weakness Endocrine: Denies: excessive sweating, flushing, increased hunger, increased thirst, increased urine, intolerance to cold, intolerance to heat, no symptoms, other, unexplained weight gain, unexplained weight loss Hematologic/Lymphatic: Denies: anemia, easy bleeding, easy bruising, no symptoms, other Subjective Pt is back under the care of Dr. Wright, due to CHF exacerbation. He is a known patient from prior admission and was started on Dilaudid 4mg tabs. We were consulted so patient has adequate pain control while here in the hospital. Objective Last 24 Hour Vital Signs Date Time Temp Pulse Resp B/P (MAP) Pulse Ox O2 Delivery O2 Flow Rate FiO2 11/22/18 11:53 97.5 74 18 136/64 (88) 96 11/22/18 09:40 78 138/86 11/22/18 09:00 Room Air 11/22/18 08:20 86 136/68 11/22/18 08:00 97.9 78 18 136/68 (90) 95 11/22/18 08:00 76 11/22/18 04:00 68 11/22/18 04:00 97.9 68 19 137/77 (97) 97 11/22/18 00:00 98.4 74 18 148/80 (102) 96 11/22/18 00:00 75 11/21/18 22:12 80 123/66 11/21/18 21:00 Room Air 11/21/18 20:00 75 11/21/18 20:00 98.1 80 19 123/66 (85) 97 11/21/18 16:00 98.3 71 18 126/68 (87) 96 11/21/18 16:00 76 Intake and Output 11/21/18 11/22/18 19:00 07:00 Intake Total 560 ml 1040 ml Output Total 500 ml 2400 ml Balance 60 ml -1360 ml Intake Oral 560 ml 680 ml Other 360 ml Output Urine Total 500 ml 2400 ml # Voids 4 2 # Bowel Movements 1 Height (Feet): 6 Height (Inches): 0.00 Weight (Pounds): 130 Objective General Appearance: no apparent distress, alert EENT: PERRL/EOMI, normal ENT inspection Neck: non-tender, normal alignment Cardiovascular: normal rate, regular rhythm Respiratory/Chest: lungs clear, normal breath sounds Abdomen: non tender, soft Extremities: other - wound RLE lateral with dressing C/D/I Edema: trace edema Neurologic: alert, oriented x 3 Rafita Zuñiga Nov 22, 2018 12:54
[2018-11-22 16:04] VITALS: BP 110/55
--- NOTE | 2018-11-22 18:35 | Consultation ---
History of Present Illness General Date patient seen: Nov 21, 2018 Chief Complaint: Chest Pain Present Illness HPI 67-year-old gentleman with hx of opioid dependence and mdd hypertension, coronary artery disease who is at the hospital for the cp. the pt was very irritable and stated that he wanted Dilaudid 3mg q 3hr. the pt has poor insight and endorses med seeking behavior the pt stated that he was severely depressed however has no si Allergies: Coded Allergies: EGG (Verified Allergy, Unknown, 09/28/18) MEPERIDINE (Verified Allergy, Unknown, 09/28/18) MORPHINE (Verified Allergy, Unknown, 09/28/18) NITROGLYCERIN (Verified Allergy, Unknown, hives, 09/28/18) Medication History Scheduled Amlodipine Besylate* (Amlodipine Besylate*), 10 MG ORAL DAILY, (Reported) Aspirin* (Aspirin*), 325 MG ORAL DAILY, (Reported) Atorvastatin Calcium* (Atorvastatin Calcium*), 20 MG ORAL BEDTIME, (Reported) Clopidogrel* (Clopidogrel*), 75 MG ORAL DAILY, (Reported) Docusate Sodium* (Docusate Sodium*), 100 MG ORAL TWICE A DAY, (Reported) Hydromorphone Hcl (Hydromorphone Hcl), 8 MG PO Q6HR, (Reported) Levetiracetam (Keppra), 500 MG ORAL DAILY, (Reported) Metoprolol Succinate* (Metoprolol Succinate*), 50 MG ORAL BID, (Reported) Mirtazapine* (Remeron*), 15 MG ORAL BEDTIME, (Reported) Prednisone* (Prednisone*), 20 MG ORAL DAILY, (Reported) Prednisone* (Prednisone*), 50 MG ORAL DAILY, (Reported) Theophylline (Theodur*), 100 MG ORAL EVERY 12 HOURS Scheduled PRN Albuterol Sulfate (Ventolin Hfa), 1 PUFF INH EVERY 6 HOURS PRN Oxycodone Hcl* (Roxicodone*), 30 MG ORAL Q6H PRN for For Pain, (Reported) Patient History Limited by: medical condition History Provided By: Patient, PMD Healthcare decision maker Resuscitation status Full Code Advanced Directive on File Past Medical/Surgical History Past Medical/Surgical History: (1) Major depression (2) CHF exacerbation (3) Emphysema lung (4) Decubitus ulcer, ankle, right, unstageable (5) ACS (acute coronary syndrome) (6) Esophagitis (7) Hyperkalemia (8) Shingles (9) CAD (coronary artery disease) (10) Hypothyroidism (11) Peripheral vascular disease (12) Acute bronchitis (13) ATN (acute tubular necrosis) (14) Pneumonia (15) HTN (hypertension) (16) Hepatitis C (17) COPD exacerbation (18) Acute on chronic renal failure (19) Hip dislocation, right (20) Osteomyelitis of right leg (21) Cellulitis of right leg (22) Chronic ulcer of right leg (23) Acute encephalopathy (24) Intractable back pain (25) Closed fracture of tibia and fibula with malunion (26) Costochondritis (27) Acute CHF (congestive heart failure) (28) Severe protein-calorie malnutrition Review of Systems Psychiatric: Reports: prior hx, anxiety, depressed feelings, emotional problems Physical Exam General Appearance: alert, cachetic Neurologic: oriented x 3, responsive, depressed affect Last 24 Hour Vital Signs Date Time Temp Pulse Resp B/P (MAP) Pulse Ox O2 Delivery O2 Flow Rate FiO2 11/22/18 16:04 98.2 72 18 110/55 (73) 95 11/22/18 16:00 69 11/22/18 12:00 75 11/22/18 11:53 97.5 74 18 136/64 (88) 96 11/22/18 09:40 78 138/86 11/22/18 09:00 Room Air 11/22/18 08:20 86 136/68 11/22/18 08:00 97.9 78 18 136/68 (90) 95 11/22/18 08:00 76 11/22/18 04:00 68 11/22/18 04:00 97.9 68 19 137/77 (97) 97 11/22/18 00:00 98.4 74 18 148/80 (102) 96 11/22/18 00:00 75 11/21/18 22:12 80 123/66 11/21/18 21:00 Room Air 11/21/18 20:00 75 11/21/18 20:00 98.1 80 19 123/66 (85) 97 Intake and Output 11/21/18 11/22/18 19:00 07:00 Intake Total 560 ml 1040 ml Output Total 500 ml 2400 ml Balance 60 ml -1360 ml Intake Oral 560 ml 680 ml Other 360 ml Output Urine Total 500 ml 2400 ml # Voids 4 2 # Bowel Movements 1 Height (Feet): 6 Height (Inches): 0.00 Weight (Pounds): 130 Medications Current Medications Medications (Trade) Dose Ordered Sig/Aminata Route PRN Reason Start Time Stop Time Status Last Admin Dose Admin Acetaminophen (Tylenol) 650 mg Q6H PRN ORAL Mild Pain/Temp > 100.5 11/21/18 06:45 12/21/18 06:44 Albuterol Sulfate (Proventil MDI) 1 puff Q6H PRN INH Shortness of Breath 11/21/18 06:45 12/21/18 06:44 Amlodipine Besylate (Norvasc) 10 mg DAILY ORAL 11/21/18 09:00 12/21/18 08:59 11/22/18 08:20 Aspirin (ASA) 325 mg DAILY ORAL 11/21/18 09:00 12/21/18 08:59 11/22/18 08:21 Atorvastatin Calcium (Lipitor) 20 mg BEDTIME ORAL 11/21/18 21:00 12/21/18 20:59 11/21/18 22:12 Clopidogrel Bisulfate (Plavix) 75 mg DAILY ORAL 11/21/18 09:00 12/21/18 08:59 11/22/18 08:21 Docusate Sodium (Colace) 100 mg TWICE A DAY ORAL 11/21/18 09:00 12/21/18 08:59 11/22/18 17:20 Heparin Sodium (Porcine) (Heparin 5000 units/ml) 5,000 units EVERY 8 HOURS SUBQ 11/21/18 14:00 12/21/18 13:59 Hydromorphone HCl (Dilaudid) 4 mg Q6H PRN ORAL Severe Pain (Pain Scale 7-10) 11/21/18 06:45 11/28/18 06:44 11/22/18 17:21 Levetiracetam (Keppra) 500 mg DAILY ORAL 11/21/18 09:00 12/21/18 08:59 11/22/18 09:40 Metoprolol Tartrate (Lopressor) 50 mg Q12HR ORAL 11/21/18 09:00 12/21/18 08:59 11/22/18 09:40 Mirtazapine (Remeron) 15 mg BEDTIME ORAL 11/21/18 21:00 12/21/18 20:59 11/21/18 22:12 Ondansetron HCl (Zofran) 4 mg Q6H PRN IVP Nausea & Vomiting 11/21/18 06:45 12/21/18 06:44 Prednisone (predniSONE) 20 mg DAILY ORAL 11/21/18 09:00 12/21/18 08:59 11/22/18 08:20 Theophylline (Wilfrido-Dur) 100 mg EVERY 12 HOURS ORAL 11/21/18 09:00 12/21/18 08:59 11/22/18 08:20 Assessment/Plan Problem List: (1) Major depression ICD Codes: F32.9 - Major depressive disorder, single episode, unspecified SNOMED: 789195796 Assessment/Plan increase Remeron 30mg qhs provided ro/Rachael Huynh MD Nov 22, 2018 18:35
[2018-11-22 20:00] VITALS: BP 125/66
[2018-11-22] MEDS: Atorvastatin 20mg tab ORAL SCH (20:27)
[2018-11-23] VITALS: BP 124/56
[2018-11-23 04:00] VITALS: BP 139/85
[2018-11-23] MEDS: Heparin 5000 units/ml inj SUBQ SCH ×3 (06:00→22:00)
[2018-11-23 08:00] VITALS: BP 136/64
[2018-11-23] MEDS: Metoprolol Tartrate 50mg tab ORAL SCH ×2 (09:08→21:01)
[2018-11-23] MEDS: Theophylline ER 100mg ORAL SCH ×2 (09:08→21:01)
[2018-11-23] MEDS: Docusate 100mg cap ORAL SCH ×2 (09:09→17:51)
--- NOTE | 2018-11-23 09:48 | General Progress Note ---
Assessment/Plan Assessment/Plan (1) Opioid dependency (2) Pain of right lower extremity (3) Osteomyelitis of right lower extremity (4) Nonhealing ulcer of right lower extremity (5) DM (diabetes mellitus) (6) Chest wall pain (7) Sternal wound Pt is to be continued on Dilaudid Pt was d/w Dr. Rivers and he concurred. Subjective Date patient seen: Nov 23, 2018 Time patient seen: 07:45 - am Allergies: Coded Allergies: EGG (Verified Allergy, Unknown, 09/28/18) MEPERIDINE (Verified Allergy, Unknown, 09/28/18) MORPHINE (Verified Allergy, Unknown, 09/28/18) NITROGLYCERIN (Verified Allergy, Unknown, hives, 09/28/18) Subjective Constitutional: Denies: chills, diaphoresis, fever, malaise, no symptoms, other , weakness HEENT: Denies: blurred vision, double vision, ear discharge, ear pain, eye pain , mouth pain, mouth swelling, no symptoms, nose congestion, nose pain, other, tearing, throat pain, throat swelling Cardiovascular: Denies: chest pain, edema, irregular heart rate, lightheadedness, no symptoms, other, palpitations, syncope Respiratory: Denies: SOB at rest, SOB with excertion, cough, no symptoms, orthopnea, other, shortness of breath, sputum, stridor, wheezing Gastrointestinal/Abdominal: Denies: abdomen distended, abdominal pain, black stools, blood in stool, constipated, diarrhea, difficulty swallowing, nausea, no symptoms, other, poor appetite, poor fluid intake, rectal bleeding, tarry stools, vomiting Genitourinary: Denies: burning, discharge, flank pain, frequency, hematuria, incontinence, no symptoms, other, pain, urgency 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: Denies: anxiety, depressed, emotional problems, headache, no symptoms, numbness, other, paresthesia, pre-existing deficit, seizure, tingling, tremors, weakness Endocrine: Denies: excessive sweating, flushing, increased hunger, increased thirst, increased urine, intolerance to cold, intolerance to heat, no symptoms, other, unexplained weight gain, unexplained weight loss Hematologic/Lymphatic: Denies: anemia, easy bleeding, easy bruising, no symptoms, other Subjective Pt is in bed and showing no signs of pain or distress. Has taken 2 doses of Dilaudid in the last 24hrs. He has no new complaints at this time. Objective Last 24 Hour Vital Signs Date Time Temp Pulse Resp B/P (MAP) Pulse Ox O2 Delivery O2 Flow Rate FiO2 11/23/18 09:09 84 136/64 11/23/18 09:08 84 136/64 11/23/18 08:05 84 18 Room Air 21 11/23/18 08:00 98.4 20 136/64 (88) 95 11/23/18 04:00 98.1 19 139/85 (103) 96 11/23/18 04:00 83 11/23/18 00:00 68 11/23/18 00:00 98.2 64 19 124/56 (78) 96 11/22/18 21:00 Room Air 11/22/18 20:27 67 125/66 11/22/18 20:00 73 11/22/18 20:00 98.9 67 19 125/66 (85) 95 11/22/18 16:04 98.2 72 18 110/55 (73) 95 11/22/18 16:00 69 11/22/18 12:00 75 11/22/18 11:53 97.5 74 18 136/64 (88) 96 Intake and Output 11/22/18 11/23/18 18:59 06:59 Intake Total 1160 ml Output Total 2250 ml Balance -1090 ml Intake Oral 1160 ml Output Urine Total 2250 ml # Voids 2 Height (Feet): 6 Height (Inches): 0.00 Weight (Pounds): 130 Objective General Appearance: no apparent distress, alert EENT: PERRL/EOMI, normal ENT inspection Neck: non-tender, normal alignment Cardiovascular: normal rate, regular rhythm Respiratory/Chest: lungs clear, normal breath sounds Abdomen: non tender, soft Extremities: other - wound RLE lateral with dressing C/D/I Edema: trace edema Neurologic: alert, oriented x 3 Rafita Zuñiga Nov 23, 2018 09:48
--- NOTE | 2018-11-23 10:19 | Cardiac Electrophysiology PN ---
Assessment/Plan Assessment/Plan 1. Chest pain due to the patient's sternal wound. The patient was ruled out for myocardial infarction. The patient has had multiple previous admissions. The patient was also evaluated by General Surgery who recommended outpatient followup with CT Surgery for removal of the sternal wires.Refusing planer tailer 2. Hypertension. Continue Norvasc 10 mg daily. 3. COPD. 4. Right ankle ulcer. 5. Seizure disorder. 6. Pain management by Zraa BARBA RN Subjective Subjective Still has sternal wire pain. No SOB. Objective Last 24 Hour Vital Signs Date Time Temp Pulse Resp B/P (MAP) Pulse Ox O2 Delivery O2 Flow Rate FiO2 11/23/18 09:09 84 136/64 11/23/18 09:08 84 136/64 11/23/18 08:05 84 18 Room Air 21 11/23/18 08:00 98.4 20 136/64 (88) 95 11/23/18 04:00 98.1 19 139/85 (103) 96 11/23/18 04:00 83 11/23/18 00:00 68 11/23/18 00:00 98.2 64 19 124/56 (78) 96 11/22/18 21:00 Room Air 11/22/18 20:27 67 125/66 11/22/18 20:00 73 11/22/18 20:00 98.9 67 19 125/66 (85) 95 11/22/18 16:04 98.2 72 18 110/55 (73) 95 11/22/18 16:00 69 11/22/18 12:00 75 11/22/18 11:53 97.5 74 18 136/64 (88) 96 Intake and Output 11/22/18 11/23/18 18:59 06:59 Intake Total 1160 ml Output Total 2250 ml Balance -1090 ml Intake Oral 1160 ml Output Urine Total 2250 ml # Voids 2 Microbiology Date/Time Source Procedure Growth Status 11/21/18 02:30 Nasal Nares MRSA Culture - Final NO METHICILLIN RESISTANT STAPH AUREUS... Complete Objective HEAD AND NECK: Shows no JVD. LUNGS: Clear. CARDIOVASCULAR: Shows regular S1 and S2 with no gallop or murmur. Sternotomy scar is intact, but the lower sternal wires are eroding through the skin. ABDOMEN: Soft. EXTREMITIES: Right ankle edema. Neal Ames MD Nov 23, 2018 10:19
[2018-11-23] MEDS: HYDROmorphone 4mg tab ORAL PRN ×2 (10:48→21:01)
[2018-11-23 12:00] VITALS: BP 152/79
[2018-11-23] MEDS ORDERED: Albuterol/Ipratropium 3ml neb HHN PRN ×2 (15:00→23:00)
[2018-11-23 16:00] VITALS: BP 130/72
[2018-11-23 20:00] VITALS: BP 111/60
[2018-11-23] MEDS: Atorvastatin 20mg tab ORAL SCH (21:01)
[2018-11-24] VITALS: BP 151/80
--- NOTE | 2018-11-24 01:34 | General Progress Note ---
Assessment/Plan Problem List: (1) Major depression ICD Codes: F32.9 - Major depressive disorder, single episode, unspecified SNOMED: 355005414 Status: stable Assessment/Plan increase Remeron 30mg qhs provided ro/st Subjective Date patient seen: Nov 23, 2018 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: Reports: anxiety, depressed, emotional problems Allergies: Coded Allergies: EGG (Verified Allergy, Unknown, 09/28/18) MEPERIDINE (Verified Allergy, Unknown, 09/28/18) MORPHINE (Verified Allergy, Unknown, 09/28/18) NITROGLYCERIN (Verified Allergy, Unknown, hives, 09/28/18) Objective Last 24 Hour Vital Signs Date Time Temp Pulse Resp B/P (MAP) Pulse Ox O2 Delivery O2 Flow Rate FiO2 11/24/18 00:00 98.4 74 20 151/80 (103) 95 11/23/18 21:01 64 111/60 11/23/18 21:00 Room Air Room Air 11/23/18 20:00 97.0 64 18 111/60 (77) 96 11/23/18 19:25 77 18 Room Air 21 11/23/18 16:00 97.8 80 20 130/72 (91) 94 11/23/18 12:00 98.2 75 19 152/79 (103) 94 11/23/18 12:00 75 11/23/18 09:09 84 136/64 11/23/18 09:08 84 136/64 11/23/18 09:00 Room Air Room Air 11/23/18 08:05 84 18 Room Air 21 11/23/18 08:00 98.4 76 20 136/64 (88) 95 11/23/18 04:00 98.1 19 139/85 (103) 96 11/23/18 04:00 83 Intake and Output 11/23/18 11/24/18 19:00 07:00 Intake Total 120 ml Output Total 650 ml Balance -530 ml Intake Oral 120 ml Output Urine Total 650 ml # Voids 4 Height (Feet): 6 Height (Inches): 0.00 Weight (Pounds): 130 General Appearance: alert, moderate distress Neurologic: oriented x 3, responsive, depressed affect Rachael Buckley MD Nov 24, 2018 01:34
[2018-11-24 04:00] VITALS: BP 123/53
[2018-11-24] MEDS: Heparin 5000 units/ml inj SUBQ SCH ×3 (06:00→21:04)
[2018-11-24 08:14] VITALS: BP 124/53
[2018-11-24] MEDS: Theophylline ER 100mg ORAL SCH ×2 (08:15→21:01)
[2018-11-24] MEDS: Metoprolol Tartrate 50mg tab ORAL SCH ×2 (08:15→20:59)
[2018-11-24] MEDS: Docusate 100mg cap ORAL SCH ×2 (08:15→17:10)
--- NOTE | 2018-11-24 11:23 | General Progress Note ---
Assessment/Plan Assessment/Plan (1) Opioid dependency (2) Pain of right lower extremity (3) Osteomyelitis of right lower extremity (4) Nonhealing ulcer of right lower extremity (5) DM (diabetes mellitus) (6) Chest wall pain (7) Sternal wound Pt is to be continued on Dilaudid tab and started on Dilaudid 1mg IV Q8H PRN severe breakthrough pain. Pt was d/w Dr. Rivers and he concurred. Subjective Date patient seen: Nov 24, 2018 Time patient seen: 10:35 - am Allergies: Coded Allergies: EGG (Verified Allergy, Unknown, 09/28/18) MEPERIDINE (Verified Allergy, Unknown, 09/28/18) MORPHINE (Verified Allergy, Unknown, 09/28/18) NITROGLYCERIN (Verified Allergy, Unknown, hives, 09/28/18) Subjective Constitutional: Denies: chills, diaphoresis, fever, malaise, no symptoms, other , weakness HEENT: Denies: blurred vision, double vision, ear discharge, ear pain, eye pain , mouth pain, mouth swelling, no symptoms, nose congestion, nose pain, other, tearing, throat pain, throat swelling Cardiovascular: Complaining of: Chest wall pain Denies: chest pain, edema, irregular heart rate, lightheadedness, no symptoms, other, palpitations, syncope Respiratory: Denies: SOB at rest, SOB with excertion, cough, no symptoms, orthopnea, other, shortness of breath, sputum, stridor, wheezing Gastrointestinal/Abdominal: Denies: abdomen distended, abdominal pain, black stools, blood in stool, constipated, diarrhea, difficulty swallowing, nausea, no symptoms, other, poor appetite, poor fluid intake, rectal bleeding, tarry stools, vomiting Genitourinary: Denies: burning, discharge, flank pain, frequency, hematuria, incontinence, no symptoms, other, pain, urgency 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: Denies: anxiety, depressed, emotional problems, headache, no symptoms, numbness, other, paresthesia, pre-existing deficit, seizure, tingling, tremors, weakness Endocrine: Denies: excessive sweating, flushing, increased hunger, increased thirst, increased urine, intolerance to cold, intolerance to heat, no symptoms, other, unexplained weight gain, unexplained weight loss Hematologic/Lymphatic: Denies: anemia, easy bleeding, easy bruising, no symptoms, other Subjective Pt continues to c/o chest wall pain and leg pain which he says has been minimally effective on Dilaudid tabs which he has used 2 doses of in the last 24hrs. Objective Last 24 Hour Vital Signs Date Time Temp Pulse Resp B/P (MAP) Pulse Ox O2 Delivery O2 Flow Rate FiO2 11/24/18 10:47 Room Air 11/24/18 08:16 73 124/53 11/24/18 08:15 73 124/53 11/24/18 08:14 73 124/53 (76) 11/24/18 04:00 98.0 69 20 123/53 (76) 97 11/24/18 00:00 98.4 74 20 151/80 (103) 95 11/23/18 21:01 64 111/60 11/23/18 21:00 Room Air Room Air 11/23/18 20:00 97.0 64 18 111/60 (77) 96 11/23/18 19:25 77 18 Room Air 21 11/23/18 16:00 97.8 80 20 130/72 (91) 94 11/23/18 12:00 98.2 75 19 152/79 (103) 94 11/23/18 12:00 75 Intake and Output 11/23/18 11/24/18 18:59 06:59 Intake Total 120 ml 180 ml Output Total 650 ml 400 ml Balance -530 ml -220 ml Intake Oral 120 ml 180 ml Output Urine Total 650 ml 400 ml # Voids 4 Height (Feet): 6 Height (Inches): 0.00 Weight (Pounds): 130 Objective General Appearance: no apparent distress, alert EENT: PERRL/EOMI, normal ENT inspection Neck: non-tender, normal alignment Cardiovascular: normal rate, regular rhythm Respiratory/Chest: lungs clear, normal breath sounds Abdomen: non tender, soft Extremities: other - wound RLE lateral with dressing C/D/I Edema: trace edema Neurologic: alert, oriented x 3 Rafita Zuñiga Nov 24, 2018 11:23
[2018-11-24] MEDS: HYDROmorphone 4mg tab ORAL PRN ×2 (11:51→21:00)
[2018-11-24] MEDS: HYDROmorphone 1mg/ml Carpuject IVP PRN ×3 (12:57→22:37)
--- NOTE | 2018-11-24 15:48 | Cardiac Electrophysiology PN ---
Assessment/Plan Assessment/Plan 1. Chest pain due to the patient's sternal wound. The patient was ruled out for myocardial infarction. The patient has had multiple previous admissions. The patient was also evaluated by General Surgery Outpatient followup with CT Surgery for removal of the sternal wires.Refused monitoring engineer 2. Hypertension. Continue Norvasc 10 mg daily. 3. COPD. 4. Right ankle ulcer. 5. Seizure disorder. 6. Pain management by Zara BARBA RN DC in am Subjective Subjective No CP or SOB. DC planning in progress Objective Last 24 Hour Vital Signs Date Time Temp Pulse Resp B/P (MAP) Pulse Ox O2 Delivery O2 Flow Rate FiO2 11/24/18 13:50 98.0 11/24/18 12:21 98.0 11/24/18 10:47 Room Air 11/24/18 08:16 73 124/53 11/24/18 08:15 73 124/53 11/24/18 08:14 73 124/53 (76) 11/24/18 04:00 98.0 69 20 123/53 (76) 97 11/24/18 00:00 98.4 74 20 151/80 (103) 95 11/23/18 21:01 64 111/60 11/23/18 21:00 Room Air Room Air 11/23/18 20:00 97.0 64 18 111/60 (77) 96 11/23/18 19:25 77 18 Room Air 21 11/23/18 16:00 97.8 80 20 130/72 (91) 94 Intake and Output 11/23/18 11/24/18 19:00 07:00 Intake Total 120 ml 180 ml Output Total 650 ml 400 ml Balance -530 ml -220 ml Intake Oral 120 ml 180 ml Output Urine Total 650 ml 400 ml # Voids 4 Objective HEAD AND NECK: Shows no JVD. LUNGS: Clear. CARDIOVASCULAR: Shows regular S1 and S2 with no gallop or murmur. Sternotomy scar is intact, but the lower sternal wires are eroding through the skin. ABDOMEN: Soft. EXTREMITIES: Right ankle edema. Neal Ames MD Nov 24, 2018 15:48
[2018-11-24 16:00] VITALS: BP 140/74
[2018-11-24 20:00] VITALS: BP 132/65
[2018-11-24] MEDS ORDERED: Atorvastatin 20mg tab ORAL SCH (21:00)
--- NOTE | 2018-11-24 22:11 | General Progress Note ---
Assessment/Plan Problem List: (1) Esophagitis ICD Codes: K20.9 - Esophagitis, unspecified SNOMED: 01416492 (2) Hyperkalemia ICD Codes: E87.5 - Hyperkalemia SNOMED: 36741003 (3) CAD (coronary artery disease) ICD Codes: I25.10 - Atherosclerosis of coronary artery SNOMED: 430201552 (4) Hypothyroidism ICD Codes: E03.9 - Hypothyroidism, unspecified SNOMED: 74358520 (5) Peripheral vascular disease ICD Codes: I73.9 - Peripheral vascular disease, unspecified SNOMED: 675893395 (6) Acute bronchitis ICD Codes: J20.9 - Acute bronchitis SNOMED: 79184517 (7) Pneumonia ICD Codes: J18.9 - Pneumonia, unspecified organism SNOMED: 399917212 (8) HTN (hypertension) ICD Codes: I10 - Hypertension SNOMED: 86708292 (9) Hepatitis C ICD Codes: B19.20 - Unspecified viral hepatitis C without hepatic coma SNOMED: 32704794 (10) COPD exacerbation ICD Codes: J44.1 - Obstructive chronic bronchitis with exacerbation SNOMED: 250760180 Status: progressing Assessment/Plan chronic pain syndrome per dr garner copd non compliant psych pt afebrile Subjective ROS Limited/Unobtainable: Yes Allergies: Coded Allergies: EGG (Verified Allergy, Unknown, 09/28/18) MEPERIDINE (Verified Allergy, Unknown, 09/28/18) MORPHINE (Verified Allergy, Unknown, 09/28/18) NITROGLYCERIN (Verified Allergy, Unknown, hives, 09/28/18) Objective Last 24 Hour Vital Signs Date Time Temp Pulse Resp B/P (MAP) Pulse Ox O2 Delivery O2 Flow Rate FiO2 11/24/18 20:59 84 132/65 11/24/18 20:15 84 18 Room Air 21 11/24/18 20:00 96.8 64 132/65 (87) 11/24/18 16:00 98.0 85 140/74 (96) 11/24/18 13:50 98.0 11/24/18 12:21 98.0 11/24/18 10:47 Room Air 11/24/18 08:16 73 124/53 11/24/18 08:15 73 124/53 11/24/18 08:14 73 124/53 (76) 11/24/18 04:00 98.0 69 20 123/53 (76) 97 11/24/18 00:00 98.4 74 20 151/80 (103) 95 Intake and Output 11/23/18 11/24/18 19:00 07:00 Intake Total 120 ml 180 ml Output Total 650 ml 400 ml Balance -530 ml -220 ml Intake Oral 120 ml 180 ml Output Urine Total 650 ml 400 ml # Voids 4 Height (Feet): 6 Height (Inches): 0.00 Weight (Pounds): 130 Cardiovascular: regular rhythm Respiratory/Chest: lungs clear Abdomen: soft Brittny Dalton MD Nov 24, 2018 22:11
[2018-11-25] VITALS: BP 141/71
[2018-11-25 04:00] VITALS: BP 155/77
[2018-11-25] MEDS: Heparin 5000 units/ml inj SUBQ SCH ×2 (06:00→09:33)
[2018-11-25 08:00] VITALS: BP 148/55
--- NOTE | 2018-11-25 08:56 | General Progress Note ---
Assessment/Plan Assessment/Plan (1) Opioid dependency (2) Pain of right lower extremity (3) Osteomyelitis of right lower extremity (4) Nonhealing ulcer of right lower extremity (5) DM (diabetes mellitus) (6) Chest wall pain (7) Sternal wound Pt is to be continued on Dilaudid Pt was d/w Dr. Rivers and he concurred. Subjective Date patient seen: Nov 25, 2018 Time patient seen: 07:00 - AM Allergies: Coded Allergies: EGG (Verified Allergy, Unknown, 09/28/18) MEPERIDINE (Verified Allergy, Unknown, 09/28/18) MORPHINE (Verified Allergy, Unknown, 09/28/18) NITROGLYCERIN (Verified Allergy, Unknown, hives, 09/28/18) Subjective Constitutional: Denies: chills, diaphoresis, fever, malaise, no symptoms, other , weakness HEENT: Denies: blurred vision, double vision, ear discharge, ear pain, eye pain , mouth pain, mouth swelling, no symptoms, nose congestion, nose pain, other, tearing, throat pain, throat swelling Cardiovascular: Complaining of: Chest wall pain Denies: chest pain, edema, irregular heart rate, lightheadedness, no symptoms, other, palpitations, syncope Respiratory: Denies: SOB at rest, SOB with excertion, cough, no symptoms, orthopnea, other, shortness of breath, sputum, stridor, wheezing Gastrointestinal/Abdominal: Denies: abdomen distended, abdominal pain, black stools, blood in stool, constipated, diarrhea, difficulty swallowing, nausea, no symptoms, other, poor appetite, poor fluid intake, rectal bleeding, tarry stools, vomiting Genitourinary: Denies: burning, discharge, flank pain, frequency, hematuria, incontinence, no symptoms, other, pain, urgency 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: Denies: anxiety, depressed, emotional problems, headache, no symptoms, numbness, other, paresthesia, pre-existing deficit, seizure, tingling, tremors, weakness Endocrine: Denies: excessive sweating, flushing, increased hunger, increased thirst, increased urine, intolerance to cold, intolerance to heat, no symptoms, other, unexplained weight gain, unexplained weight loss Hematologic/Lymphatic: Denies: anemia, easy bleeding, easy bruising, no symptoms, other Subjective Pts pain has been better controlled with the addition of Dilaudid IV 2 doses and Dilaudid PO 2 doses in the last 24hrs. Objective Last 24 Hour Vital Signs Date Time Temp Pulse Resp B/P (MAP) Pulse Ox O2 Delivery O2 Flow Rate FiO2 11/25/18 04:00 96.8 70 19 155/77 (103) 97 11/25/18 00:00 96.6 69 18 141/71 (94) 95 11/24/18 21:00 Room Air 11/24/18 20:59 84 132/65 11/24/18 20:15 84 18 Room Air 21 11/24/18 20:00 96.8 64 132/65 (87) 11/24/18 16:00 98.0 85 140/74 (96) 11/24/18 13:50 98.0 11/24/18 12:21 98.0 11/24/18 10:47 Room Air Intake and Output 11/24/18 11/25/18 19:00 07:00 Intake Total 600 ml 360 ml Balance 600 ml 360 ml Intake Oral 600 ml 360 ml # Voids 2 3 Height (Feet): 6 Height (Inches): 0.00 Weight (Pounds): 134 Objective General Appearance: no apparent distress, alert EENT: PERRL/EOMI, normal ENT inspection Neck: non-tender, normal alignment Cardiovascular: normal rate, regular rhythm Respiratory/Chest: lungs clear, normal breath sounds Abdomen: non tender, soft Extremities: other - wound RLE lateral with dressing C/D/I Edema: trace edema Neurologic: alert, oriented x 3 Rafita Zuñiga Nov 25, 2018 08:56
[2018-11-25] MEDS: Theophylline ER 100mg ORAL SCH (09:30)
[2018-11-25] MEDS: HYDROmorphone 4mg tab ORAL PRN (09:31)
[2018-11-25 09:32] VITALS: BP 148/55
[2018-11-25] MEDS: Metoprolol Tartrate 50mg tab ORAL SCH (09:32)
[2018-11-25] MEDS: Docusate 100mg cap ORAL SCH (09:32)
[2018-11-25] MEDS: HYDROmorphone 1mg/ml Carpuject IVP PRN (10:50)
--- NOTE | 2018-11-25 12:44 | General Progress Note ---
Assessment/Plan Problem List: (1) Major depression ICD Codes: F32.9 - Major depressive disorder, single episode, unspecified SNOMED: 666799206 Status: stable Assessment/Plan increase Remeron 30mg qhs provided ro/st Subjective 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: Reports: anxiety, depressed, emotional problems Allergies: Coded Allergies: EGG (Verified Allergy, Unknown, 09/28/18) MEPERIDINE (Verified Allergy, Unknown, 09/28/18) MORPHINE (Verified Allergy, Unknown, 09/28/18) NITROGLYCERIN (Verified Allergy, Unknown, hives, 09/28/18) Subjective the pt has med seeking behavior and is irritable Objective Last 24 Hour Vital Signs Date Time Temp Pulse Resp B/P (MAP) Pulse Ox O2 Delivery O2 Flow Rate FiO2 11/25/18 09:32 71 148/55 11/25/18 09:32 71 148/55 11/25/18 09:00 Room Air 11/25/18 08:00 97.0 73 19 148/55 (86) 100 73 11/25/18 04:00 96.8 70 19 155/77 (103) 97 11/25/18 00:00 96.6 69 18 141/71 (94) 95 11/24/18 21:00 Room Air 11/24/18 20:59 84 132/65 11/24/18 20:15 84 18 Room Air 21 11/24/18 20:00 96.8 64 132/65 (87) 11/24/18 16:00 98.0 85 140/74 (96) 11/24/18 13:50 98.0 Intake and Output 11/24/18 11/25/18 18:59 06:59 Intake Total 600 ml 360 ml Balance 600 ml 360 ml Intake Oral 600 ml 360 ml # Voids 2 3 Height (Feet): 6 Height (Inches): 0.00 Weight (Pounds): 134 General Appearance: alert Neurologic: oriented x 3, responsive, depressed affect Rachael Buckley MD Nov 25, 2018 12:44
--- NOTE | 2018-11-25 13:14 | Cardiac Electrophysiology PN ---
Assessment/Plan Assessment/Plan 1. Chest pain due to the patient's sternal wound. Ruled out for myocardial infarction. The patient was also evaluated by General Surgery Outpatient followup with CT Surgery for removal of the sternal wires.Refused hospital monitor 2. Hypertension. Continue Norvasc 10 mg daily. 3. COPD. 4. Right ankle ulcer. 5. Seizure disorder. 6. Pain management by Zara BARBA RN DC today Subjective Subjective No CP or SOB. DC planning today Objective Last 24 Hour Vital Signs Date Time Temp Pulse Resp B/P (MAP) Pulse Ox O2 Delivery O2 Flow Rate FiO2 11/25/18 09:32 71 148/55 11/25/18 09:32 71 148/55 11/25/18 09:00 Room Air 11/25/18 08:00 97.0 73 19 148/55 (86) 100 73 11/25/18 04:00 96.8 70 19 155/77 (103) 97 11/25/18 00:00 96.6 69 18 141/71 (94) 95 11/24/18 21:00 Room Air 11/24/18 20:59 84 132/65 11/24/18 20:15 84 18 Room Air 21 11/24/18 20:00 96.8 64 132/65 (87) 11/24/18 16:00 98.0 85 140/74 (96) 11/24/18 13:50 98.0 Intake and Output 11/24/18 11/25/18 19:00 07:00 Intake Total 600 ml 360 ml Balance 600 ml 360 ml Intake Oral 600 ml 360 ml # Voids 2 3 Objective HEAD AND NECK: No JVD. LUNGS: Clear. CARDIOVASCULAR: Regular S1 and S2 with no gallop or murmur. Sternotomy scar is intact, but the lower sternal wires are eroding through the skin. ABDOMEN: Soft. EXTREMITIES: Right ankle edema. Neal Ames MD Nov 25, 2018 13:14
--- NOTE | 2018-11-25 17:34 | General Progress Note ---
Assessment/Plan Problem List: (1) Esophagitis ICD Codes: K20.9 - Esophagitis, unspecified SNOMED: 61270060 (2) Hyperkalemia ICD Codes: E87.5 - Hyperkalemia SNOMED: 12317047 (3) CAD (coronary artery disease) ICD Codes: I25.10 - Atherosclerosis of coronary artery SNOMED: 345291831 (4) Hypothyroidism ICD Codes: E03.9 - Hypothyroidism, unspecified SNOMED: 28912861 (5) Peripheral vascular disease ICD Codes: I73.9 - Peripheral vascular disease, unspecified SNOMED: 049701261 (6) Acute bronchitis ICD Codes: J20.9 - Acute bronchitis SNOMED: 08076680 (7) Pneumonia ICD Codes: J18.9 - Pneumonia, unspecified organism SNOMED: 523710234 (8) HTN (hypertension) ICD Codes: I10 - Hypertension SNOMED: 24345300 (9) Hepatitis C ICD Codes: B19.20 - Unspecified viral hepatitis C without hepatic coma SNOMED: 02748688 (10) COPD exacerbation ICD Codes: J44.1 - Obstructive chronic bronchitis with exacerbation SNOMED: 930403168 Status: progressing Assessment/Plan chronic pain syndrome per dr garner copd non compliant psych pt i dc him atypical cp dependent on pain meds ]reviewed chart i already dc him today to go home Subjective ROS Limited/Unobtainable: Yes Allergies: Coded Allergies: EGG (Verified Allergy, Unknown, 09/28/18) MEPERIDINE (Verified Allergy, Unknown, 09/28/18) MORPHINE (Verified Allergy, Unknown, 09/28/18) NITROGLYCERIN (Verified Allergy, Unknown, hives, 09/28/18) Objective Last 24 Hour Vital Signs Date Time Temp Pulse Resp B/P (MAP) Pulse Ox O2 Delivery O2 Flow Rate FiO2 11/25/18 09:32 71 148/55 11/25/18 09:32 71 148/55 11/25/18 09:00 Room Air 11/25/18 08:00 97.0 73 19 148/55 (86) 100 73 11/25/18 04:00 96.8 70 19 155/77 (103) 97 11/25/18 00:00 96.6 69 18 141/71 (94) 95 11/24/18 21:00 Room Air 11/24/18 20:59 84 132/65 11/24/18 20:15 84 18 Room Air 21 11/24/18 20:00 96.8 64 132/65 (87) Intake and Output 11/24/18 11/25/18 18:59 06:59 Intake Total 600 ml 360 ml Balance 600 ml 360 ml Intake Oral 600 ml 360 ml # Voids 2 3 Height (Feet): 6 Height (Inches): 0.00 Weight (Pounds): 134 Brittny Dalton MD Nov 25, 2018 17:34
--- NOTE | 2018-11-26 07:02 | Discharge Summary ---
Discharge Summary Discharge Summary _ DATE OF ADMISSION: 11/21/2018 DATE OF DISCHARGE: 11/25/2018 DISCHARGED BY: Dr. Brittny Messina CONSULTANTS: Dr. Neal Rivers BRIEF HOSPITAL COURSE: Patient is a 67-year-old male, who presented to the ED for increased right- sided chest pain. Patient had gradual onset of symptoms. Patient has history of congestive heart layer. He stated that he was noted to have increased blood pressure by his home health nurse. Patient is chronically on pain medications. He had home health nurse visit and was advised to come to ED after blood pressure was noted to be elevated. He denied any fever. Denied productive cough. He complained of worsened pain and had increased swelling to the right lower extremity. He was recently discharged from the hospital. Elevation at the ED, blood pressure was elevated to 180/99, heart rate 105. EKG showed sinus rhythm at a rate of [address] changes. He was noted to have slight peaking of T waves. Blood work showed mild hyperkalemia with potassium level of 5.1. Initial troponin was negative. ProBNP was elevated to 1870. He was then admitted for CHF exacerbation, COPD exacerbation and for evaluation of chronic ulcer on the right leg. He was initially admitted under the service of Dr. Phil Wright, care was transferred over to Dr. Tracey per patient request. He underwent cardiac evaluation. Patient has a history of hypertension, coronary artery disease, history of coronary artery bypass graft in 2009 at [facility]. He had coronary angioplasty after wards. He had chronic sternal wounds as the sternal wires are coming through the skin. Chest pain possibly due to patient's sternal wound. Patient had multiple previous admissions and was evaluated by general surgery who recommended outpatient follow-up with CT surgery for removal of the sternal wires. He had a prior cardiac catheterization that showed no target for revascularization. He was given medical management. He was continued on aspirin, Lipitor, Plavix, metoprolol and Norvasc. He refused a cardiac/vascular sonographer. 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 He was given Dilaudid as needed pain. Psychiatric evaluation was done. Patient was very irritable and has poor insight and was endorsing med seeking behavior. Patient was severely depressed however has no suicidal ideation. Remeron was increased to 30 mg nightly. He was provided reality orientation and supportive therapy. He was placed on nebulizer treatments. He was continued on prednisone 20 mg daily and Theodur 100 mg twice daily. He came in with a stage II wound on the right lower leg. He was given wound care. Troponin was negative x2. He had a recent echocardiogram done on November 03, 2018 that showed EF of 55-60%, normal left ventricular size, function and wall motion. He was ruled out from ND. He was eventually cleared for discharge home. FINAL DIAGNOSES: Acute COPD exacerbation Chest pain due to sternal wound. Hypertension Right ankle ulcer stage II, present on admission Seizure disorder Hyperkalemia Coronary artery disease Opioid dependency Major depressive disorder Peripheral vascular disease Hypothyroidism Hepatitis C DISPOSITION: Patient was discharged home with home health. DISCHARGE MEDICATIONS: Refer to Discharge Medication List. DISCHARGE INSTRUCTIONS: Follow-up in a week. I have been assigned to dictate discharge summary on this account, and I was not involved in the patient's management. Torie Henderson NP Nov 26, 2018 07:02
== END 2018-11-25 17:37 | disposition home health service (06) | DRG 862 ==
LOC: EMR 22:15 → EDBEDREQ 11-21 00:38 → 2E 11-21 00:45 → INTOOBSV 11-21 00:45 → EDBEDREQ 11-21 01:12 → OBSVTOIN 11-21 02:42 → 4E 11-23 22:48
DX: T85.848A Pain due to other internal prosthetic devices, implants and grafts, initial encounter (principal); E87.5 Hyperkalemia; J44.1 Chronic obstructive pulmonary disease with (acute) exacerbation; F11.20 Opioid dependence, uncomplicated; L97.318 Non-pressure chronic ulcer of right ankle with other specified severity; R56.9 Unspecified convulsions; Y83.8 Other surgical procedures as the cause of abnormal reaction of the patient, or of later complication, without mention of misadventure at the time of the procedure; I10 Essential (primary) hypertension; I25.10 Atherosclerotic heart disease of native coronary artery without angina pectoris; F32.9 Major depressive disorder, single episode, unspecified; I73.9 Peripheral vascular disease, unspecified; E03.9 Hypothyroidism, unspecified; B19.20 Unspecified viral hepatitis C without hepatic coma; Z95.1 Presence of aortocoronary bypass graft; Z79.02 Long term (current) use of antithrombotics/antiplatelets; Z79.82 Long term (current) use of aspirin; Z88.6 Allergy status to analgesic agent; Z88.8 Allergy status to other drugs, medicaments and biological substances; Z91.018 Allergy to other foods; E11.9 Type 2 diabetes mellitus without complications; M86.8X6 Other osteomyelitis, lower leg; K20.9 Esophagitis, unspecified
CPT/HCPCS: 36415; 71045; 80053; 80299; 81003; 82550; 82553; 83690; 83735; 83880; 84100; 84484; 85025; 85610; 85730; 86850; 86900; 86901; 87081; 93005; 94664; 96374; 96375; 99285

== ENCOUNTER 2018-12-21 21:17 | Inpatient (IN) | payer MEDICARE, MEDICAID ==
[~2018-12-21] VITALS: Ht 185.4 cm; Wt 56.8 kg
[2018-12-21] MEDS ORDERED: HYDROmorphone 1mg/ml Carpuject IVP ONE ×2 (21:45→23:45)
[2018-12-21 22:05] VITALS: BP 146/79
--- NOTE | 2018-12-21 22:05 | NUR ---
ER Nurse Note: Pt came to ER c/o chest pain that started 12/10. Pt stated pain is 8/10, nonradiating in the sternal area; unkn cause. Pt a&ox4, HR and BP elevated on admission. ERMD at pt side; will continue to montior.
[2018-12-21 22:13] LABS: EOSINOPHILS % (AUTO) 0.8 % (0.0-3.0); HEMOGLOBIN 13.9 G/DL (14.2-18.0); LYMPHOCYTES % (AUTO) 9.9 % (20.0-45.0); MEAN CORPUSCULAR VOLUME 83 FL (80-99); MONOCYTES % (AUTO) 10.1 % (1.0-10.0); NEUTROPHILS % (AUTO) 76.3 % (45.0-75.0); PLATELET COUNT 310 K/UL (150-450); RED BLOOD COUNT 5.39 M/UL (4.70-6.10); RED CELL DISTRIBUTION WIDTH 16.4 % (11.6-14.8); WHITE BLOOD COUNT 6.8 K/UL (4.8-10.8)
[2018-12-21 22:26] LABS: ANION GAP 13 mmol/L (5-15); BLOOD UREA NITROGEN 23 mg/dL (7-18); CALCIUM 9.4 MG/DL (8.5-10.1); CARBON DIOXIDE 21 MMOL/L (21-32); CHLORIDE 101 MMOL/L (98-107); CREATININE 1.4 MG/DL (0.55-1.30); POTASSIUM 5.4 MMOL/L (3.5-5.1); SODIUM 134 MMOL/L (136-145)
[2018-12-21 22:33] LABS: ALANINE AMINOTRANSFERASE 22 U/L (12-78); ALBUMIN 3.6 G/DL (3.4-5.0); ALBUMIN/GLOBULIN RATIO 0.8 (1.0-2.7); ALKALINE PHOSPHATASE 124 U/L (46-116); ASPARTATE AMINO TRANSFERASE 30 U/L (15-37); BILIRUBIN,TOTAL 0.2 MG/DL (0.2-1.0); CREATINE KINASE 127 U/L (26-308)
--- NOTE | 2018-12-21 23:15 | NUR ---
ED Nurse Note: pt c/o sob and difficulty breathing, ERMD notified and RT contacted.
[2018-12-21] MEDS ORDERED: Albuterol ud Inhalation HHN ONE ×2 (23:30→23:45)
[2018-12-21 23:44] LABS: APPEARANCE,URINE CLEAR; BILIRUBIN, URINE NEGATIVE (NEGATIVE); COLOR,URINE PALE YELLOW; GLUCOSE, URINE (UA) NEGATIVE (NEGATIVE); KETONES,URINE NEGATIVE (NEGATIVE); LEUKOCYTE ESTERASE ,URINE NEGATIVE (NEGATIVE); NITRITE,URINE NEGATIVE (NEGATIVE); PH,URINE 5 (4.5-8.0); PROTEIN,URINE 2+ (NEGATIVE); UROBILINOGEN,URINE NORMAL MG/DL (0.0-1.0)
[2018-12-21] MEDS ORDERED: Solu-MEDROL 125mg Inj IVP ONE (23:45)
[2018-12-22] VITALS (7 sets, daily range): BP systolic 94–156; BP diastolic 46–86
--- NOTE | 2018-12-22 00:12 | NUR ---
ER Nurse Note: Pt on BiPaP; tolerating well. RR at 24, HR 104. Pt stated his breathing is a lot better and denies pain. Pt has a wound on right ankle, bandaged. Pt is calm, no longer using accessory muscles. Will continue to monitor.
--- NOTE | 2018-12-22 00:32 | Emergency Room Report ---
History of Present Illness General Chief Complaint: Chest Pain Source: Patient, Medical Record Present Illness HPI Is a 68-year-old -[place] male well-known to me and this ER. He has a history of hypertension, CHF, chronic chest pain. He presents with chief complaint of chest pain and short of breath. Onset for last 2 days. Worsening with exertion. Better with rest. Denies any nausea vomiting. Has nonproductive cough and congestion. Subjective fever and chills. Pain is 10 out of 10. Pain is to the mid chest. No radiation. Also increasing edema. Allergies: Coded Allergies: EGG (Verified Allergy, Unknown, 09/28/18) MEPERIDINE (Verified Allergy, Unknown, 09/28/18) MORPHINE (Verified Allergy, Unknown, 09/28/18) NITROGLYCERIN (Verified Allergy, Unknown, hives, 09/28/18) Patient History Past Medical History: see triage record, old chart reviewed, HTN, CAD, CHF, COPD Past Surgical History: other Pertinent Family History: none Social History: Denies: smoking Immunizations: other Reviewed Nursing Documentation: PMH: Agreed; PSxH: Agreed Nursing Documentation-PMH Hx Cardiac Problems: Yes - CHF Hx Hypertension: Yes Hx Pacemaker: No Hx Asthma: No Hx COPD: Yes Hx Diabetes: No Hx Cancer: No Hx Gastrointestinal Problems: Yes - Stomach Ulcer, Hep C Hx Dialysis: No - kidney problems Hx Neurological Problems: Yes Hx Cerebrovascular Accident: No Hx Transient Ischemic Attacks: No Hx Alzheimer's Disease: No Hx Encephalitis: No Hx Seizures: Yes Hx Epilepsy: No Hx Multiple Sclerosis: No Hx Cerebral Palsy: No Hx Amyotrophic Lat Sclerosis: No Hx Guillian-Ringwood Syndrome: No Hx Paralysis: No Hx Peripheral Neuropathy: No Hx Spinal Cord Injury: No Hx Head Trauma: No Hx Traumatic Brain Injury: No Hx Memory Loss: No Hx Concentration Difficulty: No Hx Speech Problem: No Hx Tremors: Yes Hx Vertigo: No Hx Dizziness: No Hx Syncope: Yes Hx Headaches: Yes Hx Aphasia: No Hx Dysphasia: Yes Hx Numbness: No Hx Weakness: Yes Hx Fatigue: No Hx Neurologic Surgery: No Hx Brain Shunt: No Review of Systems Eye: Denies: eye pain, blurred vision ENT: Denies: ear pain, nose congestion, throat swelling Respiratory: Reports: cough, shortness of breath Cardiovascular: Reports: chest pain; Denies: palpitations Gastrointestinal: Denies: abdominal pain, diarrhea, nausea, vomiting Musculoskeletal: Denies: back pain, joint pain Skin: Denies: rash Neurological: Denies: headache, numbness Endocrine: Denies: increased thirst, increased urine Hematologic/Lymphatic: Denies: easy bruising All Other Systems: negative except mentioned in HPI Physical Exam Vital Signs Date Time Temp Pulse Resp B/P (MAP) Pulse Ox O2 Delivery O2 Flow Rate FiO2 12/21/18 21:23 100.6 123 19 146/79 91 Room Air 12/21/18 23:25 2.0 28 Sp02 EP Interpretation: reviewed, normal General Appearance: alert, mild distress, thin, Chronically Ill Head: normocephalic, atraumatic Eyes: bilateral eye PERRL, bilateral eye EOMI ENT: hearing grossly normal, normal pharynx Neck: full range of motion, supple, no meningismus Respiratory: chest non-tender, decreased breath sounds, rhonchi, wheezing Cardiovascular #1: regular rate, rhythm, no murmur Gastrointestinal: normal bowel sounds, non tender, no mass, no organomegaly, no bruit, non-distended Musculoskeletal: back normal, normal range of motion, swelling - 1+ pitting Neurologic: alert, oriented x3 Psychiatric: mood/affect normal Skin: warm/dry Procedures Critical Care Time Critical Care Time Critical care is mandated in this patient who presented with acute on chronic respiratory failure. Patient require my urgent intervention to attenuate the risks of respiratory collapse which may lead to cardiovascular collapse and . Critical care time is 35 minutes excluding any reportable procedure. Critical care time included evaluation, multiple reevaluation, looking at old charts, interpreting laboratory and diagnostic data, discussing case with patient and family and consultants, and charting. Medical Decision Making Diagnostic Impression: Primary Impression: COPD exacerbation Additional Impressions: Acute and chronic respiratory failure Hyperkalemia Acute CHF (congestive heart failure) Qualified Codes: I50.9 - Heart failure, unspecified Chest pain Qualified Codes: R07.9 - Chest pain, unspecified ER Course Patient with chest pain and shows of breath. His shortness of breath is probably secondary to CHF and COPD. He became diaphoretic and had increased work of breathing. I gave him breathing treatment which only helped somewhat. I place on BiPAP that helped more. No evidence of PE, dissection to name a few. His chest pain is chronic. He has workup that show no evidence of ischemia. Because of his risk factors and multiple medical problems, will admit. I contact Dr. Tracey for admission. Lab Results Impression labs with elevated BNP EKG Diagnostic Results Rate: tachycardiac Rhythm: NSR ST Segments: other - NSST changes ASA given to the pt in ED: Yes Rhythm Strip Diag. Results EP Interpretation: yes Rate: 115 Rhythm: NSR, no PVC's, no ectopy Chest X-Ray Diagnostic Results Chest X-Ray Diagnostic Results : Chest X-Ray Ordered: Yes # of Views/Limited/Complete: 1 View Indication: Chest Pain EP Interpretation: Yes Interpretation: no consolidation, no pneumothorax, other - COPD, small pleural effussion Last Vital Signs Date Time Temp Pulse Resp B/P (MAP) Pulse Ox O2 Delivery O2 Flow Rate FiO2 12/22/18 00:10 99.8 123 24 156/86 99 Nasal Cannula 2.0 28 Status: improved Disposition: ADMITTED INPATIENT Condition: Serious Referrals: Jessie Magana MD (PCP) Juventino Sweeney MD Dec 22, 2018 00:32
--- NOTE | 2018-12-22 02:45 | NUR ---
ER Nurse Note: Pt off BiPap per RT. Pt switched to NC 2L, no signs of distress. Pt asleep, VSS, cooperative. Will continue to montitor
--- NOTE | 2018-12-22 03:13 | NUR ---
ER Nurse Note: Report given to CHRISTOPHER Son in tele for continuity of care. Pt a&ox4, VSS except HR elevated to 100; has been baseline for pt; no signs of distress. Pt O2 sat 99% on 2L NC. IV patent. All belongings take with pt.
--- NOTE | 2018-12-22 03:30 | NUR ---
NURSE NOTES: Received report and pt from Estefanía Giles RN. Pt brought by shant, applied to monitoring and evaluation advisor and VSS. Pt c/o chest pain 9/10, and weakness. Pt's belongings list reviewed and signed. Seizure precautions placed, Bed in lowest position with side rails up x2 and call light in reach. Pt refused removal of bordered gauze on right ankle and WCP. Will continue to monitor.
--- NOTE | 2018-12-22 03:40 | NUR ---
Note undone in EDM - 12/22/18 at 0549 by [email or web address] ER Nurse Note: Report given to Molly. WHITE in tele for continuity of care. Pt a&ox4, VSS except HR elevated to 100; has been baseline for pt; no signs of distress. Pt O2 sat 99% on 2L NC. IV patent. All belongings take with pt.
--- NOTE | 2018-12-22 04:11 | NUR ---
NURSE NOTES: Called MD Tracey for admission orders. Left page message with social secretary. Awaiting call back.
--- NOTE | 2018-12-22 06:08 | NUR ---
NURSE NOTES: Called MD Magana and left message regarding admission orders and notifying him of pt's request for pain Rx. Awaiting call back.
--- NOTE | 2018-12-22 06:19 | NUR ---
NURSE NOTES: Called and left another page message with MD Tracey's accredited legal secretary for admission orders. Awaiting call back.
--- NOTE | 2018-12-22 06:42 | NUR ---
NURSE NOTES: Called and left another message for MD Magana regarding admission orders and pain Rx order due to pt's 9/10 pain. Awaiting call back.
--- NOTE | 2018-12-22 07:21 | NUR ---
HAND-OFF: Report given to Esme WHITE. Pt stable. Endorsed administration of admission orders just input by MD Magana.
--- NOTE | 2018-12-22 07:22 | NUR ---
NURSE NOTES: Received patient from CHRISTOPHER Hernandez. Patient HR is elevated at this time 115-125. Patient is having pain at this time. Awaiting admission orders. Patient witnessed sleeping at this time. Will follow up regarding admission orders. Patient alert and oriented when awake. patient on 2L NC at this time with saturation of 99%. Patient needs BiPAP QHS order. Patient uses a urinal. Urinal at the bedside. Patient has bilateral lower extremity edema at this time. Patient edema is pitting +1. Patient has right ankle wound. Patient refuses to allow the dressing to be removed for a picture at this time. Patient has a left upper arm 22G PIV that is patent and asymptomatic and saline locked. Patient has a high potassium at this time. Patient given lasix in ER. Patient bed in low position with bed alarm on and call light in reach at this time.
[2018-12-22] MEDS ORDERED: Ketorolac 30mg Inj IV PRN (07:30)
[2018-12-22] MEDS ORDERED: LORazepam Inj 2mg/ml 1ml IV PRN (07:30)
[2018-12-22] MEDS: Theophylline ER 100mg ORAL SCH ×2 (08:46→21:11)
[2018-12-22] MEDS: Heparin 5000 units/ml inj SUBQ SCH ×2 (08:48→21:00)
[2018-12-22] MEDS ORDERED: Theophylline ER 100mg ORAL SCH (09:00)
--- NOTE | 2018-12-22 09:43 | Diagnostic Imaging Report ---
Indication: Chest pain Technique: One view of the chest Comparison: 11/20/2018 Findings: Lungs are hyperinflated, consistent with COPD changes. Lungs and pleural spaces are clear. Heart size is normal. Aorta is elongated and calcified. There is again demonstrated evidence of prior CABG Impression: No acute process Evidence of COPD
[2018-12-22] MEDS: Zosyn 3.375gm q8h **Extended infusion IVPB SCH ×4 (10:29→21:50)
--- NOTE | 2018-12-22 10:30 | NUR ---
NURSE NOTES: Zosyn given late at 1030 due to pharmacy bringing up the medication late.
--- NOTE | 2018-12-22 10:46 | NUR ---
RD ASSESSMENT & RECOMMENDATIONS SEE CARE ACTIVITY FOR COMPLETE ASSESSMENT DAILY ESTIMATED NEEDS: Needs based on wound, underweight/ 59kg 30-35 kcals/kg 9728-9542 total kcals 1.25-1.5 g protein/kg 74-89g g total protein 25-30 mL/kg 0700-7257 total fluid mLs NUTRITION DIAGNOSIS: 1) Increased kcal and protein needs R/T wound healing and for wt gain as evidenced by h/o right ankle chronic open wound, pt is est 71% IBW w/ underweight BMI per guidelines. 2) Altered nutrition related lab values R/T clinical condition, CHF as evidenced by elev K (5.4), elev BNP (1046). CURRENT D IET:REGULAR PO DIET RECOMMENDATIONS: LOW NA + double Protein portions/ texture as tolerated ADDITIONAL RECOMMENDATIONS: - REcalibrate bed scale for accurate CBW - Weekly wt monitoring given underweight status - Snacks TID in between meals - Skin integrity: MVI w/ min x 1, Vit C 500mg QD, Nilson 1pkt BID - Monitor lytes- elev K at this time . .
--- NOTE | 2018-12-22 11:50 | Consultation ---
History of Present Illness General Date patient seen: Dec 22, 2018 Chief Complaint: Chest Pain Present Illness HPI 67-year-old male with history of emphysema, CAD with previous CABG, Chronic foot ulcer, presented with chief complaint of chest pain for several days. Denies any fever or chills. Denies any other complaint. No nausea no vomiting. Pain is 10 out of 10. Also c/o swelling in right leg for a few days without any episode of pain. Allergies: Coded Allergies: EGG (Verified Allergy, Unknown, 09/28/18) MEPERIDINE (Verified Allergy, Unknown, 09/28/18) MORPHINE (Verified Allergy, Unknown, 09/28/18) NITROGLYCERIN (Verified Allergy, Unknown, hives, 09/28/18) Medication History Scheduled Amlodipine Besylate* (Amlodipine Besylate*), 10 MG ORAL DAILY, (Reported) Aspirin* (Aspirin*), 325 MG ORAL DAILY, (Reported) Atorvastatin Calcium* (Atorvastatin Calcium*), 20 MG ORAL BEDTIME, (Reported) Clopidogrel* (Clopidogrel*), 75 MG ORAL DAILY, (Reported) Docusate Sodium* (Docusate Sodium*), 100 MG ORAL TWICE A DAY, (Reported) Hydromorphone Hcl (Hydromorphone Hcl), 8 MG PO Q6HR, (Reported) Levetiracetam (Keppra), 500 MG ORAL DAILY, (Reported) Metoprolol Succinate* (Metoprolol Succinate*), 50 MG ORAL BID, (Reported) Mirtazapine* (Remeron*), 15 MG ORAL BEDTIME, (Reported) Prednisone* (Prednisone*), 20 MG ORAL DAILY, (Reported) Prednisone* (Prednisone*), 50 MG ORAL DAILY, (Reported) Theophylline (Theodur*), 100 MG ORAL EVERY 12 HOURS Scheduled PRN Albuterol Sulfate (Ventolin Hfa), 1 PUFF INH EVERY 6 HOURS PRN Oxycodone Hcl* (Roxicodone*), 30 MG ORAL Q6H PRN for For Pain, (Reported) Patient History Healthcare decision maker Resuscitation status Full Code Advanced Directive on File Past Medical/Surgical History Past Medical/Surgical History: (1) Emphysema lung (2) Decubitus ulcer, ankle, right, unstageable (3) CAD (coronary artery disease) (4) Hypothyroidism (5) Peripheral vascular disease (6) Hepatitis C (7) Intractable back pain (8) Severe protein-calorie malnutrition Review of Systems All Other Systems: negative except mentioned in HPI Physical Exam General Appearance: cachetic Lines, tubes and drains: peripheral HEENT: normocephalic, atraumatic Neck: non-tender, normal alignment Respiratory/Chest: chest wall non-tender, decreased breath sounds Cardiovascular/Chest: normal peripheral pulses, normal rate Abdomen: normal bowel sounds, non tender Genitourinary/Rectal: normal genital exam Extremities: normal range of motion Skin Exam: normal pigmentation Neurologic: bulker II-XII grossly normal Last 24 Hour Vital Signs Date Time Temp Pulse Resp B/P (MAP) Pulse Ox O2 Delivery O2 Flow Rate FiO2 12/22/18 08:47 114 154/78 12/22/18 07:11 116 22 Nasal Cannula 2.0 12/22/18 07:10 Nasal Cannula 2.0 12/22/18 07:10 97 Nasal Cannula 2.0 12/22/18 04:00 2.0 12/22/18 04:00 99.6 114 30 102/82 (89) 98 12/22/18 04:00 116 12/22/18 03:46 Nasal Cannula 2.0 12/22/18 03:40 99.8 123 24 136/82 100 2.0 40 12/22/18 03:40 99.8 123 24 156/86 100 2.0 40 12/22/18 01:22 112 24 100 Facial 40 12/22/18 00:10 99.8 123 24 156/86 99 Nasal Cannula 2.0 12/22/18 00:03 100.5 12/21/18 23:55 106 40 99 Facial 40 12/21/18 23:47 97 24 99 Nasal Cannula 2.0 12/21/18 23:33 96 22 99 Nasal Cannula 2.0 12/21/18 23:25 88 24 97 Nasal Cannula 2.0 12/21/18 23:08 168/90 12/21/18 22:57 100.5 12/21/18 22:05 123 19 Room Air 12/21/18 22:05 100.6 110 19 146/79 91 Room Air 12/21/18 21:23 100.6 123 19 146/79 91 Room Air Intake and Output 12/21/18 12/22/18 19:00 07:00 Intake Total 100 ml Balance 100 ml Intake Oral 0 ml IV Total 100 ml # Voids 1 # Bowel Movements 1 Laboratory Tests Test 12/21/18 21:58 12/21/18 23:20 White Blood Count 6.8 K/UL (4.8-10.8) Red Blood Count 5.39 M/UL (4.70-6.10) Hemoglobin 13.9 G/DL (14.2-18.0) L Hematocrit 45.0 % (42.0-52.0) Mean Corpuscular Volume 83 FL (80-99) Mean Corpuscular Hemoglobin 25.7 PG (27.0-31.0) L Mean Corpuscular Hemoglobin Concent 30.8 G/DL (32.0-36.0) L Red Cell Distribution Width 16.4 % (11.6-14.8) H Platelet Count 310 K/UL (150-450) Mean Platelet Volume 5.9 FL (6.5-10.1) L Neutrophils (%) (Auto) 76.3 % (45.0-75.0) H Lymphocytes (%) (Auto) 9.9 % (20.0-45.0) L Monocytes (%) (Auto) 10.1 % (1.0-10.0) H Eosinophils (%) (Auto) 0.8 % (0.0-3.0) Basophils (%) (Auto) 3.0 % (0.0-2.0) H Prothrombin Time 10.6 SEC (9.30-11.50) Prothromb Time International Ratio 1.0 (0.9-1.1) Activated Partial Thromboplast Time 37 SEC (23-33) H Sodium Level 134 MMOL/L (136-145) L Potassium Level 5.4 MMOL/L (3.5-5.1) H Chloride Level 101 MMOL/L (98-107) Carbon Dioxide Level 21 MMOL/L (21-32) Anion Gap 13 mmol/L (5-15) Blood Urea Nitrogen 23 mg/dL (7-18) H Creatinine 1.4 MG/DL (0.55-1.30) H Estimat Glomerular Filtration Rate > 60 mL/min (>60) Glucose Level 94 MG/DL (74-106) Calcium Level 9.4 MG/DL (8.5-10.1) Total Bilirubin 0.2 MG/DL (0.2-1.0) Aspartate Amino Transf (AST/SGOT) 30 U/L (15-37) Alanine Aminotransferase (ALT/SGPT) 22 U/L (12-78) Alkaline Phosphatase 124 U/L (46-116) H Total Creatine Kinase 127 U/L (26-308) Creatine Kinase MB 2.0 NG/ML (0.0-3.6) Creatine Kinase MB Relative Index 1.5 Troponin I 0.013 ng/mL (0.000-0.056) Pro-B-Type Natriuretic Peptide 1046 pg/mL (0-125) H Total Protein 8.3 G/DL (6.4-8.2) H Albumin 3.6 G/DL (3.4-5.0) Globulin 4.7 g/dL Albumin/Globulin Ratio 0.8 (1.0-2.7) L Urine Color Pale yellow Urine Appearance Clear Urine pH 5 (4.5-8.0) Urine Specific [place] 1.015 (1.005-1.035) Urine Protein 2+ (NEGATIVE) H Urine Glucose (UA) Negative (NEGATIVE) Urine Ketones Negative (NEGATIVE) Urine Blood 1+ (NEGATIVE) H Urine Nitrite Negative (NEGATIVE) Urine Bilirubin Negative (NEGATIVE) Urine Urobilinogen Normal MG/DL (0.0-1.0) Urine Leukocyte Esterase Negative (NEGATIVE) Urine RBC 0-2 /HPF (0 - 0) H Urine WBC 0 /HPF (0 - 0) Urine Squamous Epithelial Cells None /LPF (NONE/OCC) Urine Bacteria Few /HPF (NONE) Height (Feet): 6 Height (Inches): 1.00 Weight (Pounds): 130 Medications Current Medications Medications (Trade) Dose Ordered Sig/Aminata Route PRN Reason Start Time Stop Time Status Last Admin Dose Admin Albuterol/ Ipratropium (Albuterol/ Ipratropium) 3 ml Q4H PRN HHN dyspnea 12/22/18 07:30 12/27/18 07:29 Amlodipine Besylate (Norvasc) 10 mg DAILY ORAL 12/22/18 09:00 01/21/19 08:59 12/22/18 08:47 Clopidogrel Bisulfate (Plavix) 75 mg DAILY ORAL 12/22/18 09:00 01/21/19 08:59 12/22/18 08:46 Dextrose (Dextrose 50%) 25 ml Q30M PRN IV Hypoglycemia 12/22/18 07:30 01/21/19 07:29 Dextrose (Dextrose 50%) 50 ml Q30M PRN IV Hypoglycemia 12/22/18 07:30 01/21/19 07:29 Heparin Sodium (Porcine) (Heparin 5000 units/ml) 5,000 units EVERY 12 HOURS SUBQ 12/22/18 09:00 01/21/19 08:59 Hydromorphone HCl (Dilaudid) 2 mg Q3H PRN IV Severe Pain (Pain Scale 7-10) 12/22/18 11:45 12/29/18 07:29 Ketorolac Tromethamine (Toradol 30mg) 30 mg Q8H PRN IV Moderate Pain (Pain Scale 4-6) 12/22/18 07:30 12/27/18 07:29 Levetiracetam (Keppra) 250 mg Q12HR ORAL 12/22/18 09:00 01/21/19 08:59 12/22/18 08:46 Lorazepam (Ativan 2mg/ml 1ml) 0.5 mg Q4H PRN IV For Anxiety 12/22/18 07:30 12/29/18 07:29 Methylprednisolone Sodium Succinate (Solu-MEDROL) 60 mg EVERY 6 HOURS IV 12/22/18 12:00 01/21/19 11:59 Mirtazapine (Remeron) 15 mg BEDTIME ORAL 12/22/18 21:00 01/21/19 20:59 Ondansetron HCl (Zofran) 4 mg Q6H PRN IVP Nausea & Vomiting 12/22/18 07:30 01/21/19 07:29 Piperacillin Sod/ Tazobactam Sod 3.375 gm/Sodium Chloride 110 ml @ 27.5 mls/hr EVERY 8 HOURS IVPB 12/22/18 09:00 12/27/18 08:59 12/22/18 10:29 Promethazine HCl/ Codeine (Phenergan with Codeine) 5 ml Q6H PRN ORAL For Cough 12/22/18 07:30 01/21/19 07:29 Temazepam (Restoril) 15 mg HSPRN PRN ORAL Insomnia 12/22/18 21:00 12/29/18 20:59 Theophylline (Wilfrido-Dur) 100 mg EVERY 12 HOURS ORAL 12/22/18 09:00 01/21/19 08:59 12/22/18 08:46 Assessment/Plan Problem List: (1) COPD exacerbation ICD Codes: J44.1 - Obstructive chronic bronchitis with exacerbation SNOMED: 300042869 (2) Acute bronchitis ICD Codes: J20.9 - Acute bronchitis SNOMED: 37819776 (3) Hypothyroidism ICD Codes: E03.9 - Hypothyroidism, unspecified SNOMED: 22111935 (4) CAD (coronary artery disease) ICD Codes: I25.10 - Atherosclerosis of coronary artery SNOMED: 002857265 (5) Severe protein-calorie malnutrition ICD Codes: E43 - Unspecified severe protein-calorie malnutrition SNOMED: 081098537 (6) Chronic ulcer of right leg ICD Codes: L97.919 - Non-pressure chronic ulcer of unspecified part of right lower leg with unspecified severity SNOMED: 99969458 Assessment/Plan respiratory treatment short term iv steroids check sputum for c/s check electrolytes symptomatic treatment analgesics, pt wants Dialudid f/u ekg, and troponin Jessie Magana MD Dec 22, 2018 11:50
[2018-12-22] MEDS: Solu-MEDROL 125mg Inj IV SCH ×2 (11:56→17:52)
--- NOTE | 2018-12-22 12:01 | NUR ---
NURSE NOTES:WOUND CARE NOTES:Pt presents with chronic ulcer distal /lateral R tibia superior but in close proximity to malleolus.Wound bed moist with Biofilm at base with pink granular borders that are flat and dry. Periwound skin scaly with darker skin tone without erythema or elevation in skin temp. Minimal non-odorous serous exudate noted. No other skin concerns noted .Pt is able to reposition self in bed and has been educated on wound prevention. Tx.Plan:Recommend cleansing wound with Saline.Apply Silvasorb gel.Cavilon Skin Barrier periwound.Cover with Optifoam Optifoam drsg every 3 days and prn. Encourage repositioning at least every 2 hours or as tolerated. Off-load heels with pillow.
[2018-12-22] MEDS ORDERED: Piperacillin/Tazobactam 2.25 GM in D5W 55 ML IV SCH (14:00)
--- NOTE | 2018-12-22 16:00 | NUR ---
NURSE NOTES: Notified Dr Magana that the patient has not received medication for potassium of 5.[address] Magana ordered stat BMP at this time. Endorsed to new nurse to follow up. Patient also continues to be sinus tachy. Dr Magana reported that Dr Anaya is consulting on the case.
--- NOTE | 2018-12-22 16:01 | NUR ---
HAND-OFF: Report given to CHRISTOPHER Samuels. Patient VS stable at this time. Patient showing sinus tachycardia on the monitor. Dr Magana and Dr Anaya are aware. Endorsed to follow up regarding BMP result.
--- NOTE | 2018-12-22 16:30 | NUR ---
NURSE NOTES: Received report from Esme WHITE. Pt was transferred to Rm 209-2 from [facility]. Tele monitor displays ST 102. Pt is awake, alert, oriented x4. Pt reports chronic pain, is being administered Dilaudid 2mg IV Q3hrs, will reassess and administer next dose as needed/ordered. Currently on 2L of oxygen via nasal cannula. IV access on left UA #22G saline lock, patent/intact. Dressing in place on right lower leg, dry/intact, will change/reassess during my shift as ordered/needed. K level 5.4. Esme WHITE informed Dr Magana, who ordered repeat BMP. Also instructed to consult Dr Anaya for cardiac-consult. Bilateral lower extremity edema. Bedside commode setup. Call light is placed within easy reach, bed in lowest position, two side rails up, brakes engaged, alarm on.
[2018-12-22 17:47] LABS: ANION GAP 10 mmol/L (5-15); BLOOD UREA NITROGEN 34 mg/dL (7-18); CALCIUM 8.7 MG/DL (8.5-10.1); CARBON DIOXIDE 22 MMOL/L (21-32); CHLORIDE 101 MMOL/L (98-107); CREATININE 1.7 MG/DL (0.55-1.30); POTASSIUM 5.1 MMOL/L (3.5-5.1); SODIUM 133 MMOL/L (136-145)
--- NOTE | 2018-12-22 19:00 | NUR ---
NURSE NOTES: Wound photo taken and uploaded, dressing changed.
--- NOTE | 2018-12-22 19:30 | History and Physical Report ---
DATE OF ADMISSION: 12/22/2018 TIME SEEN: On 12/22/2018, at 1 p.m. CONSULTANTS: 1. Jessie Magana M.D. 2. Neal Thibodeaux M.D. CHIEF COMPLAINT: Shortness of breath, weakness, edema, nausea, and vomiting. BRIEF HISTORY: This is a 68-year-old male, who lives at home and presented with increased shortness of breath for 3 days, slight nausea, vomiting x1, and slight chest pain, dull, substernal, radiating to the right shoulder. No loss of consciousness. The patient came to [place], diagnosed with COPD exacerbation, chest pain, and edema and admitted to [facility] for further care. Currently, calm in bed, slight shortness of breath, slight chest pain, no other complaint. REVIEW OF SYSTEMS: Slight chest pain, slight shortness of breath, slight nausea, and vomiting. No diarrhea. PAST MEDICAL HISTORY: Includes hypertension, COPD, and CHF. PAST SURGICAL HISTORY: CABG. MEDICATIONS: Include Remeron, Restoril, Zosyn, methylprednisolone, hydromorphone, amlodipine, clopidogrel, levetiracetam, heparin, albuterol, lorazepam, and Phenergan With Codeine. ALLERGIES: Meperidine, morphine, and nitroglycerin. SOCIAL HISTORY: Positive smoke. No alcohol. No intravenous drug abuse. FAMILY HISTORY: Noncontributory. PHYSICAL EXAMINATION: GENERAL: Slightly anxious in bed, oriented x3, slight shortness of breath. VITAL SIGNS: Temperature is 99, pulse 114, respirations 22, and blood pressure 154/78. CARDIOVASCULAR: No murmur. LUNGS: Poor air exchange. ABDOMEN: Bowel sounds distant. EXTREMITIES: Show no cyanosis or clubbing. He has 1+ edema. NEUROLOGIC: The patient moves all extremities, slightly weak. LABORATORY AND DIAGNOSTIC DATA: Labs at this time show hemoglobin 13.9, otherwise CBC is normal. BMP shows sodium 134, potassium 5.4, BUN and creatinine 23/1.4. Troponin is 0.013. BNP is 1046. INR is 1.0. PTT is 37. Urinalysis shows 1+ blood and 2+ protein, otherwise normal. ASSESSMENT: 1. Exacerbation of COPD. 2. Chest pain. 3. Edema. 4. Renal insufficiency. 5. Hypertension. 6. COPD. 7. CHF. PLAN: 1. O2 and pulmonary treatment. 2. OT, PT, and dietary evaluation. 3. CBC and BMP in the morning. 4. Pain control. 5. Troponin q.8 h. x3. 6. Nephrology evaluation, Dr. Briones. 7. We will continue to follow this patient. Fabio Tracey D.O. DR: HEATHER JOB#: [id number] CC:
--- NOTE | 2018-12-22 20:22 | NUR ---
CASE MANAGEMENT: REVIEW 68/M PRESENTED TO ED FROM HOME CC: CHEST PAIN SI: CHF EXACERBATION T 100.6 HR 123 RR 19 BP 146/79 SAT 97% NC/2L BUN 23 CR 1.4 TROPONIN I 0.013 IS: DILAUDID IV X1 HYDRALAZINE IV X1 LASIX IV X1 ALBUTEROL HHN X1 MAG SULFATE IV X1 SOLU MEDROL IV X1 PATIENT ADMITTED TO TELEMETRY UNIT 12/22/2018 DCP: PATIENT IS FROM HOME
--- NOTE | 2018-12-22 20:29 | NUR ---
HAND-OFF: Report given to Suellen WHITE. Pt is resting in bed in stable condition. Endorsed plan of care.
--- NOTE | 2018-12-22 20:30 | NUR ---
NURSE NOTES: Received report from CHRISTOPHER Samuels. Patient awake, alert and verbally responsive. No SOB, no acute distress on 2 L via NC. Pt with episodes of taking off the NC instructed to put it back on, verbalized understanding. IV site on L upper arm #22, patent and intact. Sz precautions in place, as well as fall precautions. Dressing on R lower leg wound changed by AM RN. Bed at lowest position, call light within reach. Will continue plan of care.
[2018-12-23] VITALS: BP 105/59
[2018-12-23] MEDS: Solu-MEDROL 125mg Inj IV SCH ×3 (00:08→13:01)
--- NOTE | 2018-12-23 03:06 | NUR ---
NURSE NOTES: Patient asleep, breathing even and unlabored, no s/sx of pain nor any discomfort at this time. Bed at lowest position, call light within reach. Will continue to monitor.
[2018-12-23 04:00] VITALS: BP 125/77
[2018-12-23] MEDS: Zosyn 3.375gm q8h **Extended infusion IVPB SCH ×6 (05:30→21:42)
--- NOTE | 2018-12-23 07:17 | NUR ---
HAND-OFF: Report given to CHRISTOPHER Greenwood. Endorsed plan of care.
[2018-12-23 07:28] LABS: BASOPHILS % (AUTO) 0.4 % (0.0-2.0); EOSINOPHILS % (AUTO) 0.1 % (0.0-3.0); HEMATOCRIT 37.1 % (42.0-52.0); HEMOGLOBIN 11.7 G/DL (14.2-18.0); LYMPHOCYTES % (AUTO) 13.9 % (20.0-45.0); MEAN CORPUSCULAR VOLUME 82 FL (80-99); MONOCYTES % (AUTO) 6.8 % (1.0-10.0); NEUTROPHILS % (AUTO) 78.8 % (45.0-75.0); PLATELET COUNT 325 K/UL (150-450); RED BLOOD COUNT 4.52 M/UL (4.70-6.10); RED CELL DISTRIBUTION WIDTH 16.6 % (11.6-14.8)
--- NOTE | 2018-12-23 07:30 | NUR ---
NURSE NOTES: Received report from CHRISTOPHER Peterson. Patient awake, alert and verbally responsive. No SOB, no acute distress on 2 L via NC. Pt with episodes of taking off the NC instructed to put it back on, verbalized understanding. IV site on L upper arm #22, patent and intact. Seizure precautions in place, as well as fall precautions. Dressing on R lower leg wound intact. Bed at lowest position, call light within reach. Patient stated 8/10 pain with appropriate medication given and documented. Will continue plan of care.
[2018-12-23 07:36] VITALS: BP 139/70
[2018-12-23 07:41] LABS: ALANINE AMINOTRANSFERASE 15 U/L (12-78); ALBUMIN 2.7 G/DL (3.4-5.0); ALBUMIN/GLOBULIN RATIO 0.6 (1.0-2.7); ALKALINE PHOSPHATASE 96 U/L (46-116); ANION GAP 10 mmol/L (5-15); ASPARTATE AMINO TRANSFERASE 22 U/L (15-37); BILIRUBIN,TOTAL 0.2 MG/DL (0.2-1.0); BLOOD UREA NITROGEN 39 mg/dL (7-18); CALCIUM 7.8 MG/DL (8.5-10.1); CARBON DIOXIDE 23 MMOL/L (21-32); CHLORIDE 102 MMOL/L (98-107); CREATININE 1.7 MG/DL (0.55-1.30); PHOSPHORUS 3.8 MG/DL (2.5-4.9); POTASSIUM 5.8 MMOL/L (3.5-5.1); SODIUM 135 MMOL/L (136-145)
--- NOTE | 2018-12-23 08:02 | NUR ---
[facility] PT NOTE CONSULT RECEIVED, DASHA COMPLETED, PATIENT WILL BENEFIT FROM SKILLED PT DURING STAY FOR RETURN TO OF. RECOMMEND SNF VS HOME. PLAN OF CARE INITIATED. BRENDA SOMMER PT DPT Addendum: 12/23/18 at 0802 by BRENDA SOMMER PT Amended: Links added.
[2018-12-23] MEDS: Theophylline ER 100mg ORAL SCH ×2 (08:32→20:21)
[2018-12-23] MEDS: Heparin 5000 units/ml inj SUBQ SCH ×2 (08:34→20:26)
--- NOTE | 2018-12-23 08:35 | General Progress Note ---
Progress Note Progress Note pt seen and examined full consult dictated Enriqueta Briones MD Dec 23, 2018 08:35
[2018-12-23] MEDS: Albuterol/Ipratropium 3ml neb HHN PRN ×2 (09:30→21:15)
--- NOTE | 2018-12-23 13:10 | Pulmonology Progress Note ---
Assessment/Plan Problems: (1) COPD exacerbation (2) Acute bronchitis (3) Hypothyroidism (4) CAD (coronary artery disease) (5) Severe protein-calorie malnutrition (6) Chronic ulcer of right leg Assessment/Plan taper steroids to qD renal f/u respiratory treatment wound care check sputum continue antibiotics Subjective ROS Limited/Unobtainable: No Constitutional: Reports: no symptoms HEENT: Repors: no symptoms Respiratory: Reports: no symptoms Allergies: Coded Allergies: EGG (Verified Allergy, Unknown, 09/28/18) MEPERIDINE (Verified Allergy, Unknown, 09/28/18) MORPHINE (Verified Allergy, Unknown, 09/28/18) NITROGLYCERIN (Verified Allergy, Unknown, hives, 09/28/18) Objective Last 24 Hour Vital Signs Date Time Temp Pulse Resp B/P (MAP) Pulse Ox O2 Delivery O2 Flow Rate FiO2 12/23/18 11:01 98.2 12/23/18 09:42 102 24 98 Room Air 21 12/23/18 09:30 104 26 94 Room Air 21 12/23/18 08:33 113 139/70 12/23/18 07:48 113 21 Room Air 21 12/23/18 07:48 93 Room Air 21 12/23/18 07:48 Room Air 21 12/23/18 07:36 98.2 104 18 139/70 (93) 94 12/23/18 04:00 97.9 99 18 125/77 (93) 94 12/23/18 04:00 99 12/23/18 00:00 87 12/23/18 00:00 98.8 87 18 105/59 (74) 95 12/22/18 21:00 Nasal Cannula 2.0 12/22/18 20:00 97.4 91 19 122/59 (80) 95 12/22/18 20:00 112 20 Nasal Cannula 2.0 28 12/22/18 20:00 Nasal Cannula 2.0 28 12/22/18 20:00 91 12/22/18 20:00 94 Nasal Cannula 2.0 28 12/22/18 16:00 Nasal Cannula 2.0 12/22/18 16:00 2.0 12/22/18 16:00 99.1 105 22 94/46 (62) 92 12/22/18 16:00 99 Intake and Output 12/22/18 12/23/18 19:00 07:00 Intake Total 110.0 ml 1298 ml Output Total 1220 ml Balance 110.0 ml 78 ml Intake Oral 1160 ml IV Total 110.0 ml 138 ml Output Urine Total 1220 ml # Voids 4 # Bowel Movements 1 General Appearance: cachetic HEENT: normocephalic, atraumatic Respiratory/Chest: chest wall non-tender, lungs clear Cardiovascular: normal peripheral pulses, normal rate Abdomen: normal bowel sounds, soft, non tender Genitourinary: normal external genitalia Extremities: no cyanosis Skin: no rash 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 Resulted Laboratory Tests 12/22/18 17:15: Sodium Level 133L, Potassium Level 5.1, Chloride Level 101, Carbon Dioxide Level 22, Anion Gap 10, Blood Urea Nitrogen 34H, Creatinine 1.7H, Estimat Glomerular Filtration Rate 48.7, Glucose Level 183H, Calcium Level 8.7 12/23/18 05:51: Sodium Level 135L, Potassium Level 5.8H, Chloride Level 102, Carbon Dioxide Level 23, Anion Gap 10, Blood Urea Nitrogen 39H, Creatinine 1.7H, Estimat Glomerular Filtration Rate 48.7, Glucose Level 129H, Calcium Level 7.8L, White Blood Count 5.0, Red Blood Count 4.52L, Hemoglobin 11.7L, Hematocrit 37.1L, Mean Corpuscular Volume 82, Mean Corpuscular Hemoglobin 25.9L, Mean Corpuscular Hemoglobin Concent 31.5L, Red Cell Distribution Width 16.6H, Platelet Count 325 , Mean Platelet Volume 6.7, Neutrophils (%) (Auto) 78.8H, Lymphocytes (%) (Auto ) 13.9L, Monocytes (%) (Auto) 6.8, Eosinophils (%) (Auto) 0.1, Basophils (%) ( Auto) 0.4, Erythrocyte Sedimentation Rate 38H, Phosphorus Level 3.8, Magnesium Level 2.3, Total Bilirubin 0.2, Aspartate Amino Transf (AST/SGOT) 22, Alanine Aminotransferase (ALT/SGPT) 15, Alkaline Phosphatase 96, C-Reactive Protein, Quantitative 4.8H, Total Protein 7.3, Albumin 2.7L, Globulin 4.6, Albumin/ Globulin Ratio 0.6L Current Medications Medications (Trade) Dose Ordered Sig/Aminata Route PRN Reason Start Time Stop Time Status Last Admin Dose Admin Albuterol/ Ipratropium (Albuterol/ Ipratropium) 3 ml Q4H PRN HHN dyspnea 12/22/18 07:30 12/27/18 07:29 12/23/18 09:30 Amlodipine Besylate (Norvasc) 10 mg DAILY ORAL 12/22/18 09:00 01/21/19 08:59 12/23/18 08:33 Clopidogrel Bisulfate (Plavix) 75 mg DAILY ORAL 12/22/18 09:00 01/21/19 08:59 12/23/18 08:32 Dextrose (Dextrose 50%) 25 ml Q30M PRN IV Hypoglycemia 12/22/18 07:30 01/21/19 07:29 Dextrose (Dextrose 50%) 50 ml Q30M PRN IV Hypoglycemia 12/22/18 07:30 01/21/19 07:29 Heparin Sodium (Porcine) (Heparin 5000 units/ml) 5,000 units EVERY 12 HOURS SUBQ 12/22/18 09:00 01/21/19 08:59 Hydromorphone HCl (Dilaudid) 2 mg Q3H PRN IV Severe Pain (Pain Scale 7-10) 12/22/18 11:45 12/29/18 07:29 12/23/18 10:31 Levetiracetam (Keppra) 250 mg Q12HR ORAL 12/22/18 09:00 01/21/19 08:59 12/23/18 08:32 Lorazepam (Ativan 2mg/ml 1ml) 0.5 mg Q4H PRN IV For Anxiety 12/22/18 07:30 12/29/18 07:29 Methylprednisolone Sodium Succinate (Solu-MEDROL) 60 mg EVERY 6 HOURS IV 12/22/18 12:00 01/21/19 11:59 12/23/18 13:01 Mirtazapine (Remeron) 15 mg BEDTIME ORAL 12/22/18 21:00 01/21/19 20:59 12/22/18 21:11 Ondansetron HCl (Zofran) 4 mg Q6H PRN IVP Nausea & Vomiting 12/22/18 07:30 01/21/19 07:29 Piperacillin Sod/ Tazobactam Sod 3.375 gm/Sodium Chloride 110 ml @ 27.5 mls/hr EVERY 8 HOURS IVPB 12/22/18 09:00 12/27/18 08:59 12/23/18 05:30 Promethazine HCl/ Codeine (Phenergan with Codeine) 5 ml Q6H PRN ORAL For Cough 12/22/18 07:30 01/21/19 07:29 Temazepam (Restoril) 15 mg HSPRN PRN ORAL Insomnia 12/22/18 21:00 12/29/18 20:59 Theophylline (Wilfrido-Dur) 100 mg EVERY 12 HOURS ORAL 12/22/18 09:00 01/21/19 08:59 12/23/18 08:32 Jessie Magana MD Dec 23, 2018 13:10
--- NOTE | 2018-12-23 13:34 | General Progress Note ---
Assessment/Plan Problem List: (1) Acute and chronic respiratory failure ICD Codes: J96.20 - Acute and chronic respiratory failure, unspecified whether with hypoxia or hypercapnia SNOMED: 37019238 (2) Chest pain ICD Codes: R07.9 - Chest pain, unspecified SNOMED: 04012030 Qualifiers: Qualified Codes: R07.9 - Chest pain, unspecified (3) HTN (hypertension) ICD Codes: I10 - Hypertension SNOMED: 50143814 (4) COPD exacerbation ICD Codes: J44.1 - Obstructive chronic bronchitis with exacerbation SNOMED: 468215332 (5) Acute CHF (congestive heart failure) ICD Codes: I50.9 - Heart failure, unspecified SNOMED: 45920765 Qualifiers: Qualified Codes: I50.9 - Heart failure, unspecified Status: unchanged Assessment/Plan o2 pulmt x pt diet cbc bmp am Subjective Constitutional: Reports: weakness Respiratory: Reports: shortness of breath Allergies: Coded Allergies: EGG (Verified Allergy, Unknown, 09/28/18) MEPERIDINE (Verified Allergy, Unknown, 09/28/18) MORPHINE (Verified Allergy, Unknown, 09/28/18) NITROGLYCERIN (Verified Allergy, Unknown, hives, 09/28/18) All Systems: reviewed and negative except above Subjective calm in bed Objective Last 24 Hour Vital Signs Date Time Temp Pulse Resp B/P (MAP) Pulse Ox O2 Delivery O2 Flow Rate FiO2 12/23/18 11:01 98.2 12/23/18 09:42 102 24 98 Room Air 21 12/23/18 09:30 104 26 94 Room Air 21 12/23/18 08:33 113 139/70 12/23/18 07:48 113 21 Room Air 21 12/23/18 07:48 93 Room Air 21 12/23/18 07:48 Room Air 21 12/23/18 07:36 98.2 104 18 139/70 (93) 94 12/23/18 04:00 97.9 99 18 125/77 (93) 94 12/23/18 04:00 99 12/23/18 00:00 87 12/23/18 00:00 98.8 87 18 105/59 (74) 95 12/22/18 21:00 Nasal Cannula 2.0 12/22/18 20:00 97.4 91 19 122/59 (80) 95 12/22/18 20:00 112 20 Nasal Cannula 2.0 28 12/22/18 20:00 Nasal Cannula 2.0 28 12/22/18 20:00 91 12/22/18 20:00 94 Nasal Cannula 2.0 28 12/22/18 16:00 Nasal Cannula 2.0 12/22/18 16:00 2.0 12/22/18 16:00 99.1 105 22 94/46 (62) 92 12/22/18 16:00 99 Intake and Output 12/22/18 12/23/18 19:00 07:00 Intake Total 110.0 ml 1298 ml Output Total 1220 ml Balance 110.0 ml 78 ml Intake Oral 1160 ml IV Total 110.0 ml 138 ml Output Urine Total 1220 ml # Voids 4 # Bowel Movements 1 Laboratory Tests 12/22/18 17:15: Sodium Level 133L, Potassium Level 5.1, Chloride Level 101, Carbon Dioxide Level 22, Anion Gap 10, Blood Urea Nitrogen 34H, Creatinine 1.7H, Estimat Glomerular Filtration Rate 48.7, Glucose Level 183H, Calcium Level 8.7 12/23/18 05:51: Sodium Level 135L, Potassium Level 5.8H, Chloride Level 102, Carbon Dioxide Level 23, Anion Gap 10, Blood Urea Nitrogen 39H, Creatinine 1.7H, Estimat Glomerular Filtration Rate 48.7, Glucose Level 129H, Calcium Level 7.8L, White Blood Count 5.0, Red Blood Count 4.52L, Hemoglobin 11.7L, Hematocrit 37.1L, Mean Corpuscular Volume 82, Mean Corpuscular Hemoglobin 25.9L, Mean Corpuscular Hemoglobin Concent 31.5L, Red Cell Distribution Width 16.6H, Platelet Count 325 , Mean Platelet Volume 6.7, Neutrophils (%) (Auto) 78.8H, Lymphocytes (%) (Auto ) 13.9L, Monocytes (%) (Auto) 6.8, Eosinophils (%) (Auto) 0.1, Basophils (%) ( Auto) 0.4, Erythrocyte Sedimentation Rate 38H, Phosphorus Level 3.8, Magnesium Level 2.3, Total Bilirubin 0.2, Aspartate Amino Transf (AST/SGOT) 22, Alanine Aminotransferase (ALT/SGPT) 15, Alkaline Phosphatase 96, C-Reactive Protein, Quantitative 4.8H, Total Protein 7.3, Albumin 2.7L, Globulin 4.6, Albumin/ Globulin Ratio 0.6L Height (Feet): 6 Height (Inches): 1.00 Weight (Pounds): 130 General Appearance: lethargic EENT: normal ENT inspection Neck: normal alignment Cardiovascular: normal peripheral pulses, normal rate, regular rhythm Respiratory/Chest: chest wall non-tender, lungs clear, normal breath sounds Abdomen: normal bowel sounds, non tender, soft Extremities: normal inspection Edema: no edema noted Arm (L), no edema noted Arm (R), no edema noted Leg (L), no edema noted Leg (R), no edema noted Pedal (L), no edema noted Pedal (R), no edema noted Generalized Neurologic: responsive, motor weakness Skin: normal pigmentation, warm/dry Fabio Tracey DO Dec 23, 2018 13:34
[2018-12-23] MEDS ORDERED: NS 275ml ONE (14:07)
[2018-12-23] MEDS ORDERED: Tubing IV Secondary IV ONE (14:07)
--- NOTE | 2018-12-23 15:23 | NUR ---
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 98.2 HR 113 RR 26 B/P 139/70 RA 98% NA 135 K 5.8 BUN 39 CR 1.7 IS: SOLU MEDROL IV ZOSYN IV HEPARIN SUBC ALB HHN DOMINIK-DUR PO MED/SURG STATUS
[2018-12-23 16:00] VITALS: BP 126/68
--- NOTE | 2018-12-23 18:40 | Cardiology Report ---
APPROVED REPORT EKG Measurement Heart [id number] TN [id number] Sinus tachycardia Biatrial enlargement Anterior infarct, age undetermined Abnormal ECG
--- NOTE | 2018-12-23 19:11 | NUR ---
HAND-OFF: Report given to CHRISTOPHER Peterson. Patient resting in bed. To follow up with plan of care.
--- NOTE | 2018-12-23 19:20 | NUR ---
NURSE NOTES: Received report from CHRISTOPHER Greenwood. Patient awake, alert and verbally responsive. No SOB, no acute distress, denies any pain nor any discomfort at this time. IV site on L upper arm #22, patent and intact. Bed at lowest position, call light within reach. Will continue plan of care.
--- NOTE | 2018-12-23 19:28 | Consultation ---
History of Present Illness General Chief Complaint: Chest Pain Present Illness HPI 68-year-old -[place] male with past medical history significant for history of hypertension; history of chronic kidney disease, baseline creatinine is not unknown; history of CAD, status post CABG; and history of peripheral vascular disease, who presented to emergency room complaining of the right foot ulceration. the pt co low appetite and depression. the pt stated that he never got the script for remeron therefore he feels more depressed and has low appetite Allergies: Coded Allergies: EGG (Verified Allergy, Unknown, 09/28/18) MEPERIDINE (Verified Allergy, Unknown, 09/28/18) MORPHINE (Verified Allergy, Unknown, 09/28/18) NITROGLYCERIN (Verified Allergy, Unknown, hives, 09/28/18) Medication History Scheduled Amlodipine Besylate* (Amlodipine Besylate*), 10 MG ORAL DAILY, (Reported) Aspirin* (Aspirin*), 325 MG ORAL DAILY, (Reported) Atorvastatin Calcium* (Atorvastatin Calcium*), 20 MG ORAL BEDTIME, (Reported) Clopidogrel* (Clopidogrel*), 75 MG ORAL DAILY, (Reported) Docusate Sodium* (Docusate Sodium*), 100 MG ORAL TWICE A DAY, (Reported) Hydromorphone Hcl (Hydromorphone Hcl), 8 MG PO Q6HR, (Reported) Levetiracetam (Keppra), 500 MG ORAL DAILY, (Reported) Metoprolol Succinate* (Metoprolol Succinate*), 50 MG ORAL BID, (Reported) Mirtazapine* (Remeron*), 15 MG ORAL BEDTIME, (Reported) Prednisone* (Prednisone*), 20 MG ORAL DAILY, (Reported) Prednisone* (Prednisone*), 50 MG ORAL DAILY, (Reported) Theophylline (Theodur*), 100 MG ORAL EVERY 12 HOURS Scheduled PRN Albuterol Sulfate (Ventolin Hfa), 1 PUFF INH EVERY 6 HOURS PRN Oxycodone Hcl* (Roxicodone*), 30 MG ORAL Q6H PRN for For Pain, (Reported) Patient History Limited by: medical condition History Provided By: Patient, Medical Record, PMD Healthcare decision maker Resuscitation status Full Code Advanced Directive on File Past Medical/Surgical History Past Medical/Surgical History: (1) Acute and chronic respiratory failure (2) Gall stones (3) Chest pain (4) MDD (major depressive disorder), recurrent episode (5) Major depression (6) Emphysema lung (7) Decubitus ulcer, ankle, right, unstageable (8) ACS (acute coronary syndrome) (9) Esophagitis (10) Hyperkalemia (11) Shingles (12) CAD (coronary artery disease) (13) Hypothyroidism (14) Peripheral vascular disease (15) Acute bronchitis (16) ATN (acute tubular necrosis) (17) Pneumonia (18) Hepatitis C (19) HTN (hypertension) (20) COPD exacerbation (21) Acute on chronic renal failure (22) Hip dislocation, right (23) Osteomyelitis of right leg (24) Cellulitis of right leg (25) Chronic ulcer of right leg (26) Acute encephalopathy (27) Intractable back pain (28) Closed fracture of tibia and fibula with malunion (29) Costochondritis (30) Acute CHF (congestive heart failure) (31) Severe protein-calorie malnutrition Review of Systems Psychiatric: Reports: prior hx, anxiety, depressed feelings, emotional problems Physical Exam General Appearance: no apparent distress, alert, cachetic Neurologic: oriented x 3, responsive, depressed affect Last 24 Hour Vital Signs Date Time Temp Pulse Resp B/P (MAP) Pulse Ox O2 Delivery O2 Flow Rate FiO2 12/23/18 17:22 98.2 12/23/18 16:00 98.6 102 18 126/68 (87) 95 12/23/18 15:20 91 12/23/18 11:33 91 12/23/18 09:42 102 24 98 Room Air 21 12/23/18 09:30 104 26 94 Room Air 21 12/23/18 09:00 Nasal Cannula 2.0 12/23/18 08:33 113 139/70 12/23/18 07:55 110 12/23/18 07:48 113 21 Room Air 21 12/23/18 07:48 93 Room Air 21 12/23/18 07:48 Room Air 21 12/23/18 07:36 98.2 104 18 139/70 (93) 94 12/23/18 04:00 97.9 99 18 125/77 (93) 94 12/23/18 04:00 99 12/23/18 00:00 87 12/23/18 00:00 98.8 87 18 105/59 (74) 95 12/22/18 21:00 Nasal Cannula 2.0 12/22/18 20:00 97.4 91 19 122/59 (80) 95 12/22/18 20:00 112 20 Nasal Cannula 2.0 28 12/22/18 20:00 Nasal Cannula 2.0 28 12/22/18 20:00 91 12/22/18 20:00 94 Nasal Cannula 2.0 28 Intake and Output 12/22/18 12/23/18 19:00 07:00 Intake Total 110.0 ml 1298 ml Output Total 1220 ml Balance 110.0 ml 78 ml Intake Oral 1160 ml IV Total 110.0 ml 138 ml Output Urine Total 1220 ml # Voids 4 # Bowel Movements 1 Laboratory Tests Test 12/23/18 05:51 White Blood Count 5.0 K/UL (4.8-10.8) Red Blood Count 4.52 M/UL (4.70-6.10) L Hemoglobin 11.7 G/DL (14.2-18.0) L Hematocrit 37.1 % (42.0-52.0) L Mean Corpuscular Volume 82 FL (80-99) Mean Corpuscular Hemoglobin 25.9 PG (27.0-31.0) L Mean Corpuscular Hemoglobin Concent 31.5 G/DL (32.0-36.0) L Red Cell Distribution Width 16.6 % (11.6-14.8) H Platelet Count 325 K/UL (150-450) Mean Platelet Volume 6.7 FL (6.5-10.1) Neutrophils (%) (Auto) 78.8 % (45.0-75.0) H Lymphocytes (%) (Auto) 13.9 % (20.0-45.0) L Monocytes (%) (Auto) 6.8 % (1.0-10.0) Eosinophils (%) (Auto) 0.1 % (0.0-3.0) Basophils (%) (Auto) 0.4 % (0.0-2.0) Erythrocyte Sedimentation Rate 38 MM/HR (0-20) H Sodium Level 135 MMOL/L (136-145) L Potassium Level 5.8 MMOL/L (3.5-5.1) H Chloride Level 102 MMOL/L (98-107) Carbon Dioxide Level 23 MMOL/L (21-32) Anion Gap 10 mmol/L (5-15) Blood Urea Nitrogen 39 mg/dL (7-18) H Creatinine 1.7 MG/DL (0.55-1.30) H Estimat Glomerular Filtration Rate 48.7 mL/min (>60) Glucose Level 129 MG/DL (74-106) H Calcium Level 7.8 MG/DL (8.5-10.1) L Phosphorus Level 3.8 MG/DL (2.5-4.9) Magnesium Level 2.3 MG/DL (1.8-2.4) Total Bilirubin 0.2 MG/DL (0.2-1.0) Aspartate Amino Transf (AST/SGOT) 22 U/L (15-37) Alanine Aminotransferase (ALT/SGPT) 15 U/L (12-78) Alkaline Phosphatase 96 U/L (46-116) C-Reactive Protein, Quantitative 4.8 mg/dL (0.00-0.90) H Total Protein 7.3 G/DL (6.4-8.2) Albumin 2.7 G/DL (3.4-5.0) L Globulin 4.6 g/dL Albumin/Globulin Ratio 0.6 (1.0-2.7) L Height (Feet): 6 Height (Inches): 1.00 Weight (Pounds): 130 Medications Current Medications Medications (Trade) Dose Ordered Sig/Aminata Route PRN Reason Start Time Stop Time Status Last Admin Dose Admin Albuterol/ Ipratropium (Albuterol/ Ipratropium) 3 ml Q4H PRN HHN dyspnea 12/22/18 07:30 12/27/18 07:29 12/23/18 09:30 Amlodipine Besylate (Norvasc) 10 mg DAILY ORAL 12/22/18 09:00 01/21/19 08:59 12/23/18 08:33 Clopidogrel Bisulfate (Plavix) 75 mg DAILY ORAL 12/22/18 09:00 01/21/19 08:59 12/23/18 08:32 Dextrose (Dextrose 50%) 25 ml Q30M PRN IV Hypoglycemia 12/22/18 07:30 01/21/19 07:29 Dextrose (Dextrose 50%) 50 ml Q30M PRN IV Hypoglycemia 12/22/18 07:30 01/21/19 07:29 Heparin Sodium (Porcine) (Heparin 5000 units/ml) 5,000 units EVERY 12 HOURS SUBQ 12/22/18 09:00 01/21/19 08:59 Hydromorphone HCl (Dilaudid) 2 mg Q3H PRN IV Severe Pain (Pain Scale 7-10) 12/22/18 11:45 12/29/18 07:29 12/23/18 16:52 Levetiracetam (Keppra) 250 mg Q12HR ORAL 12/22/18 09:00 01/21/19 08:59 12/23/18 08:32 Lorazepam (Ativan 2mg/ml 1ml) 0.5 mg Q4H PRN IV For Anxiety 12/22/18 07:30 12/29/18 07:29 Methylprednisolone Sodium Succinate (Solu-MEDROL) 60 mg DAILY IVP 12/24/18 09:00 01/21/19 11:59 Mirtazapine (Remeron) 15 mg BEDTIME ORAL 12/22/18 21:00 01/21/19 20:59 12/22/18 21:11 Ondansetron HCl (Zofran) 4 mg Q6H PRN IVP Nausea & Vomiting 12/22/18 07:30 01/21/19 07:29 Piperacillin Sod/ Tazobactam Sod 3.375 gm/Sodium Chloride 110 ml @ 27.5 mls/hr EVERY 8 HOURS IVPB 12/22/18 09:00 12/27/18 08:59 12/23/18 13:42 Promethazine HCl/ Codeine (Phenergan with Codeine) 5 ml Q6H PRN ORAL For Cough 12/22/18 07:30 01/21/19 07:29 Temazepam (Restoril) 15 mg HSPRN PRN ORAL Insomnia 12/22/18 21:00 12/29/18 20:59 Theophylline (Wilfrido-Dur) 100 mg EVERY 12 HOURS ORAL 12/22/18 09:00 01/21/19 08:59 12/23/18 08:32 Assessment/Plan Problem List: (1) MDD (major depressive disorder), recurrent episode ICD Codes: F33.9 - Major depressive disorder, recurrent, unspecified SNOMED: [id number] Assessment/Plan remeron 30mg po qhs provided ro/Rachael Huynh MD Dec 23, 2018 19:28
--- NOTE | 2018-12-23 19:53 | NUR ---
NURSE NOTES: Called Dr. Magana about potassium 5.8. Endorse to assistant casino shift manager nurse.
--- NOTE | 2018-12-23 19:59 | Cardiology Progress Note ---
Assessment/Plan Assessment/Plan The patient is seen and examined, full consult note will be dictated. Objective Last 24 Hour Vital Signs Date Time Temp Pulse Resp B/P (MAP) Pulse Ox O2 Delivery O2 Flow Rate FiO2 12/23/18 17:22 98.2 12/23/18 16:00 98.6 102 18 126/68 (87) 95 12/23/18 15:20 91 12/23/18 11:33 91 12/23/18 09:42 102 24 98 Room Air 21 12/23/18 09:30 104 26 94 Room Air 21 12/23/18 09:00 Nasal Cannula 2.0 12/23/18 08:33 113 139/70 12/23/18 07:55 110 12/23/18 07:48 113 21 Room Air 21 12/23/18 07:48 93 Room Air 21 12/23/18 07:48 Room Air 21 12/23/18 07:36 98.2 104 18 139/70 (93) 94 12/23/18 04:00 97.9 99 18 125/77 (93) 94 12/23/18 04:00 99 12/23/18 00:00 87 12/23/18 00:00 98.8 87 18 105/59 (74) 95 12/22/18 21:00 Nasal Cannula 2.0 12/22/18 20:00 97.4 91 19 122/59 (80) 95 12/22/18 20:00 112 20 Nasal Cannula 2.0 28 12/22/18 20:00 Nasal Cannula 2.0 28 12/22/18 20:00 91 12/22/18 20:00 94 Nasal Cannula 2.0 28 Intake and Output 12/22/18 12/23/18 19:00 07:00 Intake Total 110.0 ml 1298 ml Output Total 1220 ml Balance 110.0 ml 78 ml Intake Oral 1160 ml IV Total 110.0 ml 138 ml Output Urine Total 1220 ml # Voids 4 # Bowel Movements 1 Laboratory Tests Test 12/23/18 05:51 White Blood Count 5.0 K/UL (4.8-10.8) Red Blood Count 4.52 M/UL (4.70-6.10) L Hemoglobin 11.7 G/DL (14.2-18.0) L Hematocrit 37.1 % (42.0-52.0) L Mean Corpuscular Volume 82 FL (80-99) Mean Corpuscular Hemoglobin 25.9 PG (27.0-31.0) L Mean Corpuscular Hemoglobin Concent 31.5 G/DL (32.0-36.0) L Red Cell Distribution Width 16.6 % (11.6-14.8) H Platelet Count 325 K/UL (150-450) Mean Platelet Volume 6.7 FL (6.5-10.1) Neutrophils (%) (Auto) 78.8 % (45.0-75.0) H Lymphocytes (%) (Auto) 13.9 % (20.0-45.0) L Monocytes (%) (Auto) 6.8 % (1.0-10.0) Eosinophils (%) (Auto) 0.1 % (0.0-3.0) Basophils (%) (Auto) 0.4 % (0.0-2.0) Erythrocyte Sedimentation Rate 38 MM/HR (0-20) H Sodium Level 135 MMOL/L (136-145) L Potassium Level 5.8 MMOL/L (3.5-5.1) H Chloride Level 102 MMOL/L (98-107) Carbon Dioxide Level 23 MMOL/L (21-32) Anion Gap 10 mmol/L (5-15) Blood Urea Nitrogen 39 mg/dL (7-18) H Creatinine 1.7 MG/DL (0.55-1.30) H Estimat Glomerular Filtration Rate 48.7 mL/min (>60) Glucose Level 129 MG/DL (74-106) H Calcium Level 7.8 MG/DL (8.5-10.1) L Phosphorus Level 3.8 MG/DL (2.5-4.9) Magnesium Level 2.3 MG/DL (1.8-2.4) Total Bilirubin 0.2 MG/DL (0.2-1.0) Aspartate Amino Transf (AST/SGOT) 22 U/L (15-37) Alanine Aminotransferase (ALT/SGPT) 15 U/L (12-78) Alkaline Phosphatase 96 U/L (46-116) C-Reactive Protein, Quantitative 4.8 mg/dL (0.00-0.90) H Total Protein 7.3 G/DL (6.4-8.2) Albumin 2.7 G/DL (3.4-5.0) L Globulin 4.6 g/dL Albumin/Globulin Ratio 0.6 (1.0-2.7) L Microbiology Date/Time Source Procedure Growth Status 12/22/18 13:24 Sputum Gram Stain - Final Resulted 12/22/18 13:24 Sputum Sputum Culture - Preliminary NORMAL UPPER RESPIRATORY NIMO AT 24 ... Resulted Neal Thibodeaux MD Dec 23, 2018 19:59
[2018-12-23 20:00] VITALS: BP 112/69
--- NOTE | 2018-12-23 20:45 | Consultation ---
DATE OF CONSULTATION: 12/23/2018 NOTE: INCOMPLETE DICTATION CARDIOLOGY CONSULTATION CONSULTING PHYSICIAN: Sergio Anaya M.D. REFERRING PHYSICIAN: Jessie Magana M.D. REASON FOR REFERRAL: Chest pain. HISTORY OF PRESENT ILLNESS: This is a middle-aged gentleman, who is known to me from multiple prior hospitalizations and evaluation. Sergio Anaya M.D. DR: BRIAN JOB#: [id number] CC:
--- NOTE | 2018-12-23 21:30 | Consultation ---
DATE OF CONSULTATION: 12/23/2018 NEPHROLOGY CONSULTATION CONSULTING PHYSICIAN: Enriqueta Briones M.D. REFERRING PHYSICIAN: Fabio Tracey D.O. REASON FOR CONSULTATION: Acute on chronic renal failure. HISTORY OF PRESENT ILLNESS: The patient is a 68-year-old -[place] male with past medical history significant for history of hypertension; history of chronic kidney disease, baseline creatinine is not unknown; history of CAD, status post CABG; and history of peripheral vascular disease, who presented to emergency room complaining of the right foot ulceration. He denies having any fever, chills, or night sweats. Denies having any nausea or vomiting. He complained of chest pain and right leg pain, which he described as 10/10. The chest pain is not radiating, it is mostly on the retrosternal area, was associated with some shortness of breath. Denies having any nausea or vomiting. PAST MEDICAL HISTORY: 1. History of hypertension. 2. History of COPD. 3. History of peripheral vascular disease. 4. History of hepatitis C. 5. History of back pain. 6. History of malnutrition. 7. History of CAD. 8. History of CABG. 9. History of decubitus ulcer. 10. History of right leg ulceration. HOME MEDICATIONS: Includin. Amlodipine 10 mg daily. 2. Aspirin 325 mg daily. 3. Atorvastatin 20 mg daily. 4. Plavix 75 mg daily. 5. Colace 100 mg daily. 6. Hydromorphone 8 mg p.r.n. 7. Keppra 500 mg daily. 8. Metoprolol 50 mg daily. 9. Remeron 15 mg daily. 10. Prednisone to be tapered. 11. Theophylline 100 mg daily. SOCIAL HISTORY: Denies current history of tobacco, alcohol, or drug use. FAMILY HISTORY: Negative for any history of premature heart disease. REVIEW OF SYSTEMS: GENERAL: He complained of generalized weakness. Denies any fever, chills, or night sweats. HEAD AND NECK: Denies any dysphagia, odynophagia, blurry vision, headache, or neck stiffness. PULMONARY: Complained of shortness of breath and cough. No sputum. CARDIOVASCULAR: Complained of chest pain as mentioned in HPI. GASTROINTESTINAL: Denies any nausea, vomiting, diarrhea, hematemesis, or hematochezia. GENITOURINARY: Denies any dysuria, frequency, or hematuria. MUSCULOSKELETAL: Denies any weakness or numbness. PHYSICAL EXAMINATION: VITAL SIGNS: The patient has temperature of 98, pulse of 104, respiratory rate of 22, and blood pressure of 126/68. HEAD AND NECK: No JVP. No LAD. Bitemporal wasting. Extraocular movement intact. Pupils are reactive to light and accommodation. LUNGS: Bilateral wheezing. CARDIAC: Regular rate and rhythm. S1, S2. No murmur. No rub. ABDOMEN: Soft, nontender, and nondistended. EXTREMITIES: Right heel ulceration, which is on dressing. No edema. No clubbing. LABORATORY AND DIAGNOSTIC DATA: Laboratory values revealed that WBC count of 5, hemoglobin of 11.7, hematocrit of 37, and platelet count of 325,000. Chemistry reveals sodium 135, potassium 5.8, 102 chloride, 26 bicarb, BUN of 39, creatinine of 1.7, glucose of 129, calcium of 7.8, and magnesium of 2.2. AST of 22, ALT of 16, and alkaline phosphatase of 96. Total protein of 7.3 and albumin of 2.7. UA revealed specific gravity of 1.015, protein 2+, blood 1+, rbc 0 to 2, and wbc 0. ASSESSMENT: 1. Acute renal failure. The etiology of acute renal failure is ATN due to unstable hemodynamics. 2. Chronic kidney disease. 3. Hyperkalemia, rule out type 4 RTA. 4. COPD exacerbation. 5. Chest pain. 6. Cardiovascular disease. PLAN: Plan for the patient is to obtain a random urine protein creatinine ratio to calculate the proteinuria, check the urine sodium and creatinine to calculate fractional excretion of sodium, ultrasound of the kidney, bladder scan, avoid any NSAID and nephrotoxic, replace electrolytes as needed, low-potassium diet, and check A1c for evaluation of the diabetes. The patient seems to have an elevated blood sugar. At the end, I would like to thank, Dr. Fabio Tracey, for allowing me to participate in the care of this patient. Cora Millan JOB#: [id number] CC:
[2018-12-24] VITALS: BP 118/57
--- NOTE | 2018-12-24 03:41 | NUR ---
NURSE NOTES: Patient asleep, breathing even and unlabored. No s/sx of pain nor any discomfort at this time. Remains sinus rhythm on conveyor monitor. Bed at lowest position, call light within reach. Will continue to monitor.
[2018-12-24 04:00] VITALS: BP 124/62
[2018-12-24] MEDS: Zosyn 3.375gm q8h **Extended infusion IVPB SCH ×6 (05:25→22:31)
[2018-12-24 07:04] LABS: BASOPHILS % (AUTO) 1.7 % (0.0-2.0); EOSINOPHILS % (AUTO) 0.1 % (0.0-3.0); HEMATOCRIT 36.5 % (42.0-52.0); HEMOGLOBIN 11.3 G/DL (14.2-18.0); LYMPHOCYTES % (AUTO) 13.1 % (20.0-45.0); MEAN CORPUSCULAR VOLUME 83 FL (80-99); MONOCYTES % (AUTO) 8.8 % (1.0-10.0); NEUTROPHILS % (AUTO) 76.3 % (45.0-75.0); PLATELET COUNT 283 K/UL (150-450); RED BLOOD COUNT 4.41 M/UL (4.70-6.10); RED CELL DISTRIBUTION WIDTH 16.8 % (11.6-14.8); WHITE BLOOD COUNT 8.7 K/UL (4.8-10.8)
[2018-12-24 07:25] LABS: ANION GAP 11 mmol/L (5-15); BLOOD UREA NITROGEN 39 mg/dL (7-18); CALCIUM 8.1 MG/DL (8.5-10.1); CARBON DIOXIDE 23 MMOL/L (21-32); CHLORIDE 105 MMOL/L (98-107); CREATININE 1.6 MG/DL (0.55-1.30); POTASSIUM 4.9 MMOL/L (3.5-5.1); SODIUM 138 MMOL/L (136-145)
--- NOTE | 2018-12-24 07:27 | NUR ---
HAND-OFF: Report given to CHRISTOPHER Hoang. Endorsed plan of care.
--- NOTE | 2018-12-24 07:34 | NUR ---
NURSE NOTES: Received report from CHRISTOPHER Gay. Pt is resting in bed. No distress noted. Bed is in lowest position, side rails up X2, and call light is within reach. Will continue to monitor.
[2018-12-24 08:00] VITALS: BP 157/80
[2018-12-24] MEDS: Theophylline ER 100mg ORAL SCH ×2 (08:10→22:27)
[2018-12-24] MEDS: Heparin 5000 units/ml inj SUBQ SCH ×3 (08:15→22:30)
--- NOTE | 2018-12-24 08:17 | Nephrology Progress Note ---
Assessment/Plan Assessment 1. Acute renal failure. 2. Chronic kidney disease. 3. Hyperkalemia, rule out type 4 RTA. 4. COPD exacerbation. 5. Chest pain. 6. Cardiovascular disease. Plan plan low k diet fallow up with us of kidney monitoring renal function avoid NSAID replace electrolyte as need it fallow up with urine study Subjective Constitutional: Reports: no symptoms HEENT: Reports: no symptoms Genitourinary: Reports: no symptoms 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: Reports: no symptoms Subjective alert and awake c/o cp and right foot pain Objective Objective Last 24 Hour Vital Signs Date Time Temp Pulse Resp B/P (MAP) Pulse Ox O2 Delivery O2 Flow Rate FiO2 12/24/18 04:00 97.9 92 18 124/62 (82) 100 12/24/18 04:00 92 12/24/18 00:00 98 12/24/18 00:00 99.1 98 20 118/57 (77) 93 12/23/18 21:25 93 20 97 Room Air 21 12/23/18 21:15 92 18 94 Room Air 21 12/23/18 21:00 Nasal Cannula 2.0 12/23/18 20:03 Room Air 21 12/23/18 20:03 97 Room Air 21 12/23/18 20:03 105 20 Room Air 21 12/23/18 20:00 97 12/23/18 20:00 99.2 97 20 112/69 (83) 95 12/23/18 17:22 98.2 12/23/18 16:00 98.6 102 18 126/68 (87) 95 12/23/18 15:20 91 12/23/18 11:33 91 12/23/18 09:42 102 24 98 Room Air 21 12/23/18 09:30 104 26 94 Room Air 21 12/23/18 09:00 Nasal Cannula 2.0 12/23/18 08:33 113 139/70 Intake and Output 12/23/18 12/24/18 19:00 07:00 Intake Total 500 ml 470 ml Output Total 600 ml 400 ml Balance -100 ml 70 ml Intake Oral 500 ml 360 ml IV Total 110 ml Output Urine Total 600 ml 400 ml Laboratory Tests 12/23/18 21:00: Urine Eosinophils None seen, Urine Random Creatinine [Pending], Urine Random Microalbumin [Pending], Urine Random Sodium 40, Urine Creatinine 116.6, Urine Microalbumin/Creatinine Ratio [Pending] 12/24/18 05:30: White Blood Count 8.7#, Red Blood Count 4.41L, Hemoglobin 11.3L, Hematocrit 36.5L, Mean Corpuscular Volume 83, Mean Corpuscular Hemoglobin 25.6L, Mean Corpuscular Hemoglobin Concent 30.9L, Red Cell Distribution Width 16.8H, Platelet Count 283, Mean Platelet Volume 6.4L, Neutrophils (%) (Auto) 76.3H, Lymphocytes (%) (Auto) 13.1L, Monocytes (%) (Auto) 8.8, Eosinophils (%) (Auto) 0.1, Basophils (%) (Auto) 1.7, Sodium Level 138, Potassium Level 4.9, Chloride Level 105, Carbon Dioxide Level 23, Anion Gap 11, Blood Urea Nitrogen 39H, Creatinine 1.6H, Estimat Glomerular Filtration Rate 52.2, Glucose Level 132H, Calcium Level 8.1L Height (Feet): 6 Height (Inches): 1.00 Weight (Pounds): 130 Objective HEAD AND NECK: No JVP. No LAD. Bitemporal wasting. Extraocular movement intact. Pupils are reactive to light and accommodation. LUNGS: Bilateral wheezing. CARDIAC: Regular rate and rhythm. S1, S2. No murmur. No rub. ABDOMEN: Soft, nontender, and nondistended. EXTREMITIES: Right heel ulceration, which is on dressing. No edema. No clubbing. Enriqueta Briones MD Dec 24, 2018 08:17
[2018-12-24] MEDS ORDERED: Solu-MEDROL 40mg Inj IVP SCH (09:00)
--- NOTE | 2018-12-24 10:02 | Diagnostic Imaging Report ---
Indication: Acute renal failure Technique: Grayscale and duplex images of the kidneys, retroperitoneum, and bladder were obtained. Comparison: none Findings: Right kidney measures 9.8 cm in length. Left kidney measures 9 cm in length. Both kidneys demonstrate normal echogenicity. No hydronephrosis. There are renal cysts bilaterally. Normal inferior vena cava. Bladder is normal. Impression: Negative for hydronephrosis Incidental finding bilateral renal cysts.
[2018-12-24 12:00] VITALS: BP 140/71
--- NOTE | 2018-12-24 12:14 | Pulmonology Progress Note ---
Assessment/Plan Problems: (1) COPD exacerbation (2) Acute bronchitis (3) Hypothyroidism (4) CAD (coronary artery disease) (5) Severe protein-calorie malnutrition (6) Chronic ulcer of right leg Assessment/Plan taper steroids renal f/u respiratory treatment wound care check sputum, still pending continue antibiotics Subjective ROS Limited/Unobtainable: No Constitutional: Reports: no symptoms HEENT: Repors: no symptoms Respiratory: Reports: no symptoms Allergies: Coded Allergies: EGG (Verified Allergy, Unknown, 09/28/18) MEPERIDINE (Verified Allergy, Unknown, 09/28/18) MORPHINE (Verified Allergy, Unknown, 09/28/18) NITROGLYCERIN (Verified Allergy, Unknown, hives, 09/28/18) Objective Last 24 Hour Vital Signs Date Time Temp Pulse Resp B/P (MAP) Pulse Ox O2 Delivery O2 Flow Rate FiO2 12/24/18 09:00 Nasal Cannula 2.0 12/24/18 08:10 115 154/86 12/24/18 08:00 98.6 109 21 157/80 (105) 95 12/24/18 04:00 97.9 92 18 124/62 (82) 100 12/24/18 04:00 92 12/24/18 00:00 98 12/24/18 00:00 99.1 98 20 118/57 (77) 93 12/23/18 21:25 93 20 97 Room Air 21 12/23/18 21:15 92 18 94 Room Air 21 12/23/18 21:00 Nasal Cannula 2.0 12/23/18 20:03 Room Air 21 12/23/18 20:03 97 Room Air 21 12/23/18 20:03 105 20 Room Air 21 12/23/18 20:00 97 12/23/18 20:00 99.2 97 20 112/69 (83) 95 12/23/18 17:22 98.2 12/23/18 16:00 98.6 102 18 126/68 (87) 95 12/23/18 15:20 91 Intake and Output 12/23/18 12/24/18 19:00 07:00 Intake Total 500 ml 470 ml Output Total 600 ml 400 ml Balance -100 ml 70 ml Intake Oral 500 ml 360 ml IV Total 110 ml Output Urine Total 600 ml 400 ml General Appearance: cachetic HEENT: normocephalic, atraumatic Respiratory/Chest: chest wall non-tender, lungs clear Cardiovascular: normal peripheral pulses, normal rate Abdomen: normal bowel sounds, soft, non tender Genitourinary: normal external genitalia Skin: no rash Microbiology Date/Time Source Procedure Growth Status 12/22/18 13:24 Sputum Gram Stain - Final Complete 12/22/18 13:24 Sputum Sputum Culture - Final NORMAL UPPER RESPIRATORY NIMO PRESENT Complete Laboratory Tests 12/23/18 21:00: Urine Eosinophils None seen, Urine Random Creatinine [Pending], Urine Random Microalbumin [Pending], Urine Random Sodium 40, Urine Creatinine 116.6, Urine Microalbumin/Creatinine Ratio [Pending] 12/24/18 05:30: White Blood Count 8.7#, Red Blood Count 4.41L, Hemoglobin 11.3L, Hematocrit 36.5L, Mean Corpuscular Volume 83, Mean Corpuscular Hemoglobin 25.6L, Mean Corpuscular Hemoglobin Concent 30.9L, Red Cell Distribution Width 16.8H, Platelet Count 283, Mean Platelet Volume 6.4L, Neutrophils (%) (Auto) 76.3H, Lymphocytes (%) (Auto) 13.1L, Monocytes (%) (Auto) 8.8, Eosinophils (%) (Auto) 0.1, Basophils (%) (Auto) 1.7, Sodium Level 138, Potassium Level 4.9, Chloride Level 105, Carbon Dioxide Level 23, Anion Gap 11, Blood Urea Nitrogen 39H, Creatinine 1.6H, Estimat Glomerular Filtration Rate 52.2, Glucose Level 132H, Calcium Level 8.1L Current Medications Medications (Trade) Dose Ordered Sig/Aminata Route PRN Reason Start Time Stop Time Status Last Admin Dose Admin Albuterol/ Ipratropium (Albuterol/ Ipratropium) 3 ml Q4H PRN HHN dyspnea 12/22/18 07:30 12/27/18 07:29 12/23/18 21:15 Amlodipine Besylate (Norvasc) 10 mg DAILY ORAL 12/22/18 09:00 01/21/19 08:59 12/24/18 08:10 Clopidogrel Bisulfate (Plavix) 75 mg DAILY ORAL 12/22/18 09:00 01/21/19 08:59 12/24/18 08:10 Dextrose (Dextrose 50%) 25 ml Q30M PRN IV Hypoglycemia 12/22/18 07:30 01/21/19 07:29 Dextrose (Dextrose 50%) 50 ml Q30M PRN IV Hypoglycemia 12/22/18 07:30 01/21/19 07:29 Heparin Sodium (Porcine) (Heparin 5000 units/ml) 5,000 units EVERY 12 HOURS SUBQ 12/22/18 09:00 01/21/19 08:59 12/24/18 08:15 Hydromorphone HCl (Dilaudid) 2 mg Q3H PRN IV Severe Pain (Pain Scale 7-10) 12/22/18 11:45 12/29/18 07:29 12/24/18 11:14 Levetiracetam (Keppra) 250 mg Q12HR ORAL 12/22/18 09:00 01/21/19 08:59 12/24/18 08:10 Lorazepam (Ativan 2mg/ml 1ml) 0.5 mg Q4H PRN IV For Anxiety 12/22/18 07:30 12/29/18 07:29 Methylprednisolone Sodium Succinate (Solu-MEDROL) 60 mg DAILY IVP 12/24/18 09:00 01/21/19 11:59 12/24/18 08:11 Mirtazapine (Remeron) 15 mg BEDTIME ORAL 12/22/18 21:00 01/21/19 20:59 12/23/18 20:22 Ondansetron HCl (Zofran) 4 mg Q6H PRN IVP Nausea & Vomiting 12/22/18 07:30 01/21/19 07:29 Piperacillin Sod/ Tazobactam Sod 3.375 gm/Sodium Chloride 110 ml @ 27.5 mls/hr EVERY 8 HOURS IVPB 12/22/18 09:00 12/27/18 08:59 12/24/18 05:25 Promethazine HCl/ Codeine (Phenergan with Codeine) 5 ml Q6H PRN ORAL For Cough 12/22/18 07:30 01/21/19 07:29 Temazepam (Restoril) 15 mg HSPRN PRN ORAL Insomnia 12/22/18 21:00 12/29/18 20:59 Theophylline (Wilfrido-Dur) 100 mg EVERY 12 HOURS ORAL 12/22/18 09:00 01/21/19 08:59 12/24/18 08:10 Jessie Magana MD Dec 24, 2018 12:14
--- NOTE | 2018-12-24 12:20 | General Progress Note ---
Assessment/Plan Problem List: (1) Acute and chronic respiratory failure ICD Codes: J96.20 - Acute and chronic respiratory failure, unspecified whether with hypoxia or hypercapnia SNOMED: 78496594 (2) Chest pain ICD Codes: R07.9 - Chest pain, unspecified SNOMED: 15413088 Qualifiers: Qualified Codes: R07.9 - Chest pain, unspecified (3) HTN (hypertension) ICD Codes: I10 - Hypertension SNOMED: 32292559 (4) COPD exacerbation ICD Codes: J44.1 - Obstructive chronic bronchitis with exacerbation SNOMED: 024581769 (5) Acute CHF (congestive heart failure) ICD Codes: I50.9 - Heart failure, unspecified SNOMED: 86616190 Qualifiers: Qualified Codes: I50.9 - Heart failure, unspecified Status: stable, progressing Assessment/Plan o2 pulmt x pt diet cbc bmp am dc plan Subjective Constitutional: Reports: weakness Respiratory: Reports: shortness of breath Allergies: Coded Allergies: EGG (Verified Allergy, Unknown, 09/28/18) MEPERIDINE (Verified Allergy, Unknown, 09/28/18) MORPHINE (Verified Allergy, Unknown, 09/28/18) NITROGLYCERIN (Verified Allergy, Unknown, hives, 09/28/18) All Systems: reviewed and negative except above Subjective calm in bed Objective Last 24 Hour Vital Signs Date Time Temp Pulse Resp B/P (MAP) Pulse Ox O2 Delivery O2 Flow Rate FiO2 12/24/18 09:00 Nasal Cannula 2.0 12/24/18 08:10 115 154/86 12/24/18 08:00 98.6 109 21 157/80 (105) 95 12/24/18 04:00 97.9 92 18 124/62 (82) 100 12/24/18 04:00 92 12/24/18 00:00 98 12/24/18 00:00 99.1 98 20 118/57 (77) 93 12/23/18 21:25 93 20 97 Room Air 21 12/23/18 21:15 92 18 94 Room Air 21 12/23/18 21:00 Nasal Cannula 2.0 12/23/18 20:03 Room Air 21 12/23/18 20:03 97 Room Air 21 12/23/18 20:03 105 20 Room Air 21 12/23/18 20:00 97 12/23/18 20:00 99.2 97 20 112/69 (83) 95 12/23/18 17:22 98.2 12/23/18 16:00 98.6 102 18 126/68 (87) 95 12/23/18 15:20 91 Intake and Output 12/23/18 12/24/18 19:00 07:00 Intake Total 500 ml 470 ml Output Total 600 ml 400 ml Balance -100 ml 70 ml Intake Oral 500 ml 360 ml IV Total 110 ml Output Urine Total 600 ml 400 ml Laboratory Tests 12/23/18 21:00: Urine Eosinophils None seen, Urine Random Creatinine [Pending], Urine Random Microalbumin [Pending], Urine Random Sodium 40, Urine Creatinine 116.6, Urine Microalbumin/Creatinine Ratio [Pending] 12/24/18 05:30: White Blood Count 8.7#, Red Blood Count 4.41L, Hemoglobin 11.3L, Hematocrit 36.5L, Mean Corpuscular Volume 83, Mean Corpuscular Hemoglobin 25.6L, Mean Corpuscular Hemoglobin Concent 30.9L, Red Cell Distribution Width 16.8H, Platelet Count 283, Mean Platelet Volume 6.4L, Neutrophils (%) (Auto) 76.3H, Lymphocytes (%) (Auto) 13.1L, Monocytes (%) (Auto) 8.8, Eosinophils (%) (Auto) 0.1, Basophils (%) (Auto) 1.7, Sodium Level 138, Potassium Level 4.9, Chloride Level 105, Carbon Dioxide Level 23, Anion Gap 11, Blood Urea Nitrogen 39H, Creatinine 1.6H, Estimat Glomerular Filtration Rate 52.2, Glucose Level 132H, Calcium Level 8.1L Height (Feet): 6 Height (Inches): 1.00 Weight (Pounds): 130 General Appearance: lethargic EENT: normal ENT inspection Neck: normal alignment Cardiovascular: normal peripheral pulses, normal rate, regular rhythm Respiratory/Chest: chest wall non-tender, lungs clear, normal breath sounds Abdomen: normal bowel sounds, non tender, soft Extremities: normal inspection Edema: no edema noted Arm (L), no edema noted Arm (R), no edema noted Leg (L), no edema noted Leg (R), no edema noted Pedal (L), no edema noted Pedal (R), no edema noted Generalized Neurologic: responsive, motor weakness Skin: normal pigmentation, warm/dry Fabio Tracey DO Dec 24, 2018 12:20
--- NOTE | 2018-12-24 14:08 | NUR ---
NURSE NOTES: Patient states his current medication is not working. He would like an increase in the dosage. Contacted Dr. Pérez to relay this information. Will await call back
[2018-12-24 16:00] VITALS: BP 161/85
[2018-12-24] MEDS: Albuterol/Ipratropium 3ml neb HHN PRN (18:50)
[2018-12-24 20:00] VITALS: BP 155/97
--- NOTE | 2018-12-24 20:00 | Cardiology Progress Note ---
Assessment/Plan Assessment/Plan 1. Chronic recurrent chest pain. 2. Visible foreign body in the left sternal area consistent with sternal wires. 3. Coronary artery disease, status post coronary artery bypass grafting and prior PCI. 4. COPD. 5. Chronic pain. 6. Osteomyelitis of lower extremity. was not able to see cts at [facility] he says they did not answer their phone!! sternal wire is note on exam chest wall is ternder will order ct of the sternum hhn q4 hour prn Subjective Cardiovascular: Reports: chest pain; Denies: lightheadedness Respiratory: Reports: shortness of breath, SOB with excertion Gastrointestinal/Abdominal: Denies: abdominal pain Genitourinary: Denies: burning Objective Last 24 Hour Vital Signs Date Time Temp Pulse Resp B/P (MAP) Pulse Ox O2 Delivery O2 Flow Rate FiO2 12/24/18 18:53 Room Air 21 12/24/18 18:53 104 18 96 Room Air 21 12/24/18 18:53 96 Room Air 21 12/24/18 18:50 104 18 Room Air 21 12/24/18 17:57 97.9 12/24/18 16:00 98.6 100 19 161/85 (110) 98 12/24/18 16:00 103 12/24/18 12:00 110 12/24/18 12:00 97.8 93 19 140/71 (94) 95 12/24/18 09:00 Nasal Cannula 2.0 12/24/18 08:10 115 154/86 12/24/18 08:00 98.6 109 21 157/80 (105) 95 12/24/18 08:00 124 12/24/18 04:00 97.9 92 18 124/62 (82) 100 12/24/18 04:00 92 12/24/18 00:00 98 12/24/18 00:00 99.1 98 20 118/57 (77) 93 12/23/18 21:25 93 20 97 Room Air 21 12/23/18 21:15 92 18 94 Room Air 21 12/23/18 21:00 Nasal Cannula 2.0 12/23/18 20:03 Room Air 21 12/23/18 20:03 97 Room Air 21 12/23/18 20:03 105 20 Room Air 21 12/23/18 20:00 97 12/23/18 20:00 99.2 97 20 112/69 (83) 95 General Appearance: no apparent distress, alert Neck: no JVD Cardiovascular: normal rate Respiratory/Chest: decreased breath sounds, expiratory wheezing, inspiratory wheezing Abdomen: normal bowel sounds, non tender, soft Extremities: no swelling Intake and Output 12/23/18 12/24/18 19:00 07:00 Intake Total 500 ml 470 ml Output Total 600 ml 400 ml Balance -100 ml 70 ml Intake Oral 500 ml 360 ml IV Total 110 ml Output Urine Total 600 ml 400 ml Laboratory Tests Test 12/23/18 21:00 12/24/18 05:30 Urine Eosinophils None seen (NONE SEEN) Urine Random Creatinine Pending Urine Random Microalbumin Pending Urine Random Sodium 40 mmol/L (20-110) Urine Creatinine 116.6 MG/DL (30.0-125.0) Urine Microalbumin/Creatinine Ratio Pending White Blood Count 8.7 K/UL (4.8-10.8) # Red Blood Count 4.41 M/UL (4.70-6.10) L Hemoglobin 11.3 G/DL (14.2-18.0) L Hematocrit 36.5 % (42.0-52.0) L Mean Corpuscular Volume 83 FL (80-99) Mean Corpuscular Hemoglobin 25.6 PG (27.0-31.0) L Mean Corpuscular Hemoglobin Concent 30.9 G/DL (32.0-36.0) L Red Cell Distribution Width 16.8 % (11.6-14.8) H Platelet Count 283 K/UL (150-450) Mean Platelet Volume 6.4 FL (6.5-10.1) L Neutrophils (%) (Auto) 76.3 % (45.0-75.0) H Lymphocytes (%) (Auto) 13.1 % (20.0-45.0) L Monocytes (%) (Auto) 8.8 % (1.0-10.0) Eosinophils (%) (Auto) 0.1 % (0.0-3.0) Basophils (%) (Auto) 1.7 % (0.0-2.0) Sodium Level 138 MMOL/L (136-145) Potassium Level 4.9 MMOL/L (3.5-5.1) Chloride Level 105 MMOL/L (98-107) Carbon Dioxide Level 23 MMOL/L (21-32) Anion Gap 11 mmol/L (5-15) Blood Urea Nitrogen 39 mg/dL (7-18) H Creatinine 1.6 MG/DL (0.55-1.30) H Estimat Glomerular Filtration Rate 52.2 mL/min (>60) Glucose Level 132 MG/DL (74-106) H Calcium Level 8.1 MG/DL (8.5-10.1) L Microbiology Date/Time Source Procedure Growth Status 12/22/18 13:24 Sputum Gram Stain - Final Complete 12/22/18 13:24 Sputum Sputum Culture - Final NORMAL UPPER RESPIRATORY NIMO PRESENT Complete Sergio Anaya MD Dec 24, 2018 20:00
--- NOTE | 2018-12-24 20:06 | NUR ---
HAND-OFF: Report given to CHRISTOPHER Mendoza. Plan of care endorsed
--- NOTE | 2018-12-24 20:40 | General Progress Note ---
Assessment/Plan Problem List: (1) MDD (major depressive disorder), recurrent episode ICD Codes: F33.9 - Major depressive disorder, recurrent, unspecified SNOMED: 115007353 (2) Severe protein-calorie malnutrition ICD Codes: E43 - Unspecified severe protein-calorie malnutrition SNOMED: 060914754 Assessment/Plan Remeron 30mg qhs provided ro/st Subjective 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: Reports: anxiety, depressed, emotional problems Allergies: Coded Allergies: EGG (Verified Allergy, Unknown, 09/28/18) MEPERIDINE (Verified Allergy, Unknown, 09/28/18) MORPHINE (Verified Allergy, Unknown, 09/28/18) NITROGLYCERIN (Verified Allergy, Unknown, hives, 09/28/18) Objective Last 24 Hour Vital Signs Date Time Temp Pulse Resp B/P (MAP) Pulse Ox O2 Delivery O2 Flow Rate FiO2 12/24/18 18:53 Room Air 21 12/24/18 18:53 104 18 96 Room Air 21 12/24/18 18:53 96 Room Air 21 12/24/18 18:50 104 18 Room Air 21 12/24/18 17:57 97.9 12/24/18 16:00 98.6 100 19 161/85 (110) 98 12/24/18 16:00 103 12/24/18 12:00 110 12/24/18 12:00 97.8 93 19 140/71 (94) 95 12/24/18 09:00 Nasal Cannula 2.0 12/24/18 08:10 115 154/86 12/24/18 08:00 98.6 109 21 157/80 (105) 95 12/24/18 08:00 124 12/24/18 04:00 97.9 92 18 124/62 (82) 100 12/24/18 04:00 92 12/24/18 00:00 98 12/24/18 00:00 99.1 98 20 118/57 (77) 93 12/23/18 21:25 93 20 97 Room Air 21 12/23/18 21:15 92 18 94 Room Air 21 12/23/18 21:00 Nasal Cannula 2.0 Intake and Output 12/23/18 12/24/18 19:00 07:00 Intake Total 500 ml 470 ml Output Total 600 ml 400 ml Balance -100 ml 70 ml Intake Oral 500 ml 360 ml IV Total 110 ml Output Urine Total 600 ml 400 ml Laboratory Tests 12/23/18 21:00: Urine Eosinophils None seen, Urine Random Creatinine [Pending], Urine Random Microalbumin [Pending], Urine Random Sodium 40, Urine Creatinine 116.6, Urine Microalbumin/Creatinine Ratio [Pending] 12/24/18 05:30: White Blood Count 8.7#, Red Blood Count 4.41L, Hemoglobin 11.3L, Hematocrit 36.5L, Mean Corpuscular Volume 83, Mean Corpuscular Hemoglobin 25.6L, Mean Corpuscular Hemoglobin Concent 30.9L, Red Cell Distribution Width 16.8H, Platelet Count 283, Mean Platelet Volume 6.4L, Neutrophils (%) (Auto) 76.3H, Lymphocytes (%) (Auto) 13.1L, Monocytes (%) (Auto) 8.8, Eosinophils (%) (Auto) 0.1, Basophils (%) (Auto) 1.7, Sodium Level 138, Potassium Level 4.9, Chloride Level 105, Carbon Dioxide Level 23, Anion Gap 11, Blood Urea Nitrogen 39H, Creatinine 1.6H, Estimat Glomerular Filtration Rate 52.2, Glucose Level 132H, Calcium Level 8.1L Height (Feet): 6 Height (Inches): 1.00 Weight (Pounds): 130 General Appearance: alert, cachetic Neurologic: oriented x 3, responsive, depressed affect Rachael Buckley MD Dec 24, 2018 20:40
[2018-12-25] VITALS: BP 138/69
[2018-12-25] MEDS: Promethazine/Codeine 5ml UD ORAL PRN (02:49)
[2018-12-25] MEDS: Albuterol/Ipratropium 3ml neb HHN PRN (03:00)
[2018-12-25 04:00] VITALS: BP 127/72
[2018-12-25] MEDS: Zosyn 3.375gm q8h **Extended infusion IVPB SCH ×4 (05:39→13:06)
[2018-12-25 07:29] LABS: HEMATOCRIT 39.2 % (42.0-52.0); MEAN CORPUSCULAR VOLUME 83 FL (80-99); MONOCYTES % (AUTO) 10.5 % (1.0-10.0); NEUTROPHILS % (AUTO) 75.5 % (45.0-75.0); PLATELET COUNT 251 K/UL (150-450); WHITE BLOOD COUNT 7.9 K/UL (4.8-10.8)
[2018-12-25 07:42] LABS: ANION GAP 7 mmol/L (5-15); BLOOD UREA NITROGEN 28 mg/dL (7-18); CALCIUM 7.8 MG/DL (8.5-10.1); CARBON DIOXIDE 24 MMOL/L (21-32); CHLORIDE 106 MMOL/L (98-107); CREATININE 1.4 MG/DL (0.55-1.30); POTASSIUM 4.9 MMOL/L (3.5-5.1); SODIUM 137 MMOL/L (136-145)
--- NOTE | 2018-12-25 07:57 | NUR ---
NURSE NOTES: Received report from Anthony WHITE. Pt is a/o x4 ,resting in bed with open eyes. No distress noted. Bed is in lowest position, side rails up X3, and call light and frequent used objects are within reach.iv intact and patent. Will continue to monitor.
[2018-12-25 08:00] VITALS: BP 163/92
[2018-12-25] MEDS: Heparin 5000 units/ml inj SUBQ SCH ×2 (09:00→21:00)
[2018-12-25] MEDS: Solu-MEDROL 40mg Inj IVP SCH (09:44)
[2018-12-25] MEDS: Theophylline ER 100mg ORAL SCH ×2 (09:45→21:08)
[2018-12-25] MEDS ORDERED: REMERON45 M1 ORAL (11:32)
--- NOTE | 2018-12-25 11:46 | NUR ---
RD ASSESSMENT & RECOMMENDATIONS SEE CARE ACTIVITY FOR COMPLETE ASSESSMENT DAILY ESTIMATED NEEDS: Needs based on wound, underweight/ 59kg 30-35 kcals/kg 2204-0363 total kcals 1.25-1.5 g protein/kg 74-89g g total protein 25-30 mL/kg 9641-2894 total fluid mLs NUTRITION DIAGNOSIS: 1) Increased kcal and protein needs R/T wound healing and for wt gain as evidenced by h/o right ankle chronic open wound, pt is est 71% IBW w/ underweight BMI per guidelines. 2) Altered nutrition related lab values R/T clinical condition, CHF as evidenced by elev K (5.4-> now wnl), elev BNP (1046). CURRENT DIET:REGULAR PO DIET RECOMMENDATIONS: LOW NA + double Protein portions/ texture as tolerated ADDITIONAL RECOMMENDATIONS: - REcalibrate bed scale for accurate CBW - Weekly wt monitoring given underweight status - Snacks TID in between meals - Wound healing: MVI w/ min x 1, Vit C 500mg QD, Nilson 1pkt BID - Monitor K, need for diet restriction - Monitor BGs closely while solumedrol, need for carb controlled diet or SSI .
--- NOTE | 2018-12-25 11:50 | Pulmonology Progress Note ---
Assessment/Plan Problems: (1) COPD exacerbation (2) Acute bronchitis (3) Hypothyroidism (4) CAD (coronary artery disease) (5) Severe protein-calorie malnutrition (6) Chronic ulcer of right leg Assessment/Plan increase dilaudid to 3 mg taper steroids renal f/u respiratory treatment wound care check sputum, still pending continue antibiotics Subjective ROS Limited/Unobtainable: No Constitutional: Reports: no symptoms HEENT: Repors: no symptoms Respiratory: Reports: no symptoms Allergies: Coded Allergies: EGG (Verified Allergy, Unknown, 09/28/18) MEPERIDINE (Verified Allergy, Unknown, 09/28/18) MORPHINE (Verified Allergy, Unknown, 09/28/18) NITROGLYCERIN (Verified Allergy, Unknown, hives, 09/28/18) Objective Last 24 Hour Vital Signs Date Time Temp Pulse Resp B/P (MAP) Pulse Ox O2 Delivery O2 Flow Rate FiO2 12/25/18 10:15 97.5 12/25/18 09:46 106 163/92 12/25/18 09:00 Nasal Cannula 2.0 12/25/18 08:00 97.5 16 163/92 (115) 100 12/25/18 04:00 106 12/25/18 04:00 98.4 118 22 127/72 (90) 91 12/25/18 03:01 106 20 98 Room Air 21 12/25/18 02:50 102 18 95 Room Air 21 12/25/18 00:05 97.9 12/25/18 00:00 98.7 101 22 138/69 (92) 93 12/25/18 00:00 110 12/24/18 22:46 Room Air 12/24/18 22:46 Room Air 12/24/18 21:00 Nasal Cannula 2.0 12/24/18 20:00 110 12/24/18 20:00 98.3 119 22 155/97 (116) 95 12/24/18 18:53 Room Air 21 12/24/18 18:53 104 18 96 Room Air 21 12/24/18 18:53 96 Room Air 21 12/24/18 18:50 104 18 Room Air 21 12/24/18 16:00 98.6 100 19 161/85 (110) 98 12/24/18 16:00 103 12/24/18 12:00 110 12/24/18 12:00 97.8 93 19 140/71 (94) 95 Intake and Output 12/24/18 12/25/18 19:00 07:00 Intake Total 1200 ml Output Total 300 ml Balance 900 ml Other 1200 ml Output Urine Total 300 ml General Appearance: cachetic HEENT: normocephalic, atraumatic Respiratory/Chest: chest wall non-tender, lungs clear Cardiovascular: normal peripheral pulses, normal rate Abdomen: normal bowel sounds Microbiology Date/Time Source Procedure Growth Status 12/22/18 13:24 Sputum Gram Stain - Final Complete 12/22/18 13:24 Sputum Sputum Culture - Final NORMAL UPPER RESPIRATORY NIMO PRESENT Complete Laboratory Tests 12/25/18 07:17: White Blood Count 7.9, Red Blood Count 4.70, Hemoglobin 12.0L, Hematocrit 39.2L , Mean Corpuscular Volume 83, Mean Corpuscular Hemoglobin 25.6L, Mean Corpuscular Hemoglobin Concent 30.7L, Red Cell Distribution Width 17.0H, Platelet Count 251, Mean Platelet Volume 6.6, Neutrophils (%) (Auto) 75.5H, Lymphocytes (%) (Auto) 12.0L, Monocytes (%) (Auto) 10.5H, Eosinophils (%) (Auto ) 0.0, Basophils (%) (Auto) 2.0, Sodium Level 137, Potassium Level 4.9, Chloride Level 106, Carbon Dioxide Level 24, Anion Gap 7, Blood Urea Nitrogen 28H, Creatinine 1.4H, Estimat Glomerular Filtration Rate > 60, Glucose Level 96 , Calcium Level 7.8L Current Medications Medications (Trade) Dose Ordered Sig/Aminata Route PRN Reason Start Time Stop Time Status Last Admin Dose Admin Albuterol/ Ipratropium (Albuterol/ Ipratropium) 3 ml Q4H PRN HHN dyspnea 12/22/18 07:30 12/27/18 07:29 12/25/18 03:00 Amlodipine Besylate (Norvasc) 10 mg DAILY ORAL 12/22/18 09:00 01/21/19 08:59 12/25/18 09:46 Clopidogrel Bisulfate (Plavix) 75 mg DAILY ORAL 12/22/18 09:00 01/21/19 08:59 12/25/18 09:45 Dextrose (Dextrose 50%) 25 ml Q30M PRN IV Hypoglycemia 12/22/18 07:30 01/21/19 07:29 Dextrose (Dextrose 50%) 50 ml Q30M PRN IV Hypoglycemia 12/22/18 07:30 01/21/19 07:29 Heparin Sodium (Porcine) (Heparin 5000 units/ml) 5,000 units EVERY 12 HOURS SUBQ 12/22/18 09:00 01/21/19 08:59 12/24/18 08:15 Hydromorphone HCl (Dilaudid) 2 mg Q3H PRN IV Severe Pain (Pain Scale 7-10) 12/22/18 11:45 12/29/18 07:29 12/25/18 09:45 Levetiracetam (Keppra) 250 mg Q12HR ORAL 12/22/18 09:00 01/21/19 08:59 12/25/18 09:46 Lorazepam (Ativan 2mg/ml 1ml) 0.5 mg Q4H PRN IV For Anxiety 12/22/18 07:30 12/29/18 07:29 Methylprednisolone Sodium Succinate (Solu-MEDROL) 40 mg DAILY IVP 12/25/18 09:00 01/21/19 11:59 12/25/18 09:44 Mirtazapine (Remeron) 30 mg BEDTIME ORAL 12/24/18 21:00 01/23/19 20:59 12/24/18 22:32 Ondansetron HCl (Zofran) 4 mg Q6H PRN IVP Nausea & Vomiting 12/22/18 07:30 01/21/19 07:29 Piperacillin Sod/ Tazobactam Sod 3.375 gm/Sodium Chloride 110 ml @ 27.5 mls/hr EVERY 8 HOURS IVPB 12/22/18 09:00 12/27/18 08:59 12/25/18 05:39 Promethazine HCl/ Codeine (Phenergan with Codeine) 5 ml Q6H PRN ORAL For Cough 12/22/18 07:30 01/21/19 07:29 12/25/18 02:49 Temazepam (Restoril) 15 mg HSPRN PRN ORAL Insomnia 12/22/18 21:00 12/29/18 20:59 Theophylline (Wilfrido-Dur) 100 mg EVERY 12 HOURS ORAL 12/22/18 09:00 01/21/19 08:59 12/25/18 09:45 Jessie Magana MD Dec 25, 2018 11:50
[2018-12-25 12:00] VITALS: BP 152/73
--- NOTE | 2018-12-25 12:37 | Nephrology Progress Note ---
Assessment/Plan Assessment 1. Acute renal failure improving 2. Chronic kidney disease. 3. Hyperkalemia, 4. COPD exacerbation. 5. Chest pain. 6. Cardiovascular disease. Plan plan low k diet fallow up with us of kidney monitoring renal function avoid NSAID replace electrolyte as need it fallow up with urine study Subjective Constitutional: Reports: no symptoms HEENT: Reports: no symptoms Genitourinary: Reports: no symptoms 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: Reports: no symptoms Subjective alert and awake c/o sob,cough and wheezing Objective Objective Last 24 Hour Vital Signs Date Time Temp Pulse Resp B/P (MAP) Pulse Ox O2 Delivery O2 Flow Rate FiO2 12/25/18 10:15 97.5 12/25/18 09:46 106 163/92 12/25/18 09:00 Nasal Cannula 2.0 12/25/18 08:00 97.5 16 163/92 (115) 100 12/25/18 04:00 106 12/25/18 04:00 98.4 118 22 127/72 (90) 91 12/25/18 03:01 106 20 98 Room Air 21 12/25/18 02:50 102 18 95 Room Air 21 12/25/18 00:05 97.9 12/25/18 00:00 98.7 101 22 138/69 (92) 93 12/25/18 00:00 110 12/24/18 22:46 Room Air 12/24/18 22:46 Room Air 12/24/18 21:00 Nasal Cannula 2.0 12/24/18 20:00 110 12/24/18 20:00 98.3 119 22 155/97 (116) 95 12/24/18 18:53 Room Air 21 12/24/18 18:53 104 18 96 Room Air 21 12/24/18 18:53 96 Room Air 21 12/24/18 18:50 104 18 Room Air 21 12/24/18 16:00 98.6 100 19 161/85 (110) 98 12/24/18 16:00 103 Intake and Output 12/24/18 12/25/18 19:00 07:00 Intake Total 1200 ml Output Total 300 ml Balance 900 ml Other 1200 ml Output Urine Total 300 ml Laboratory Tests 12/25/18 07:17: White Blood Count 7.9, Red Blood Count 4.70, Hemoglobin 12.0L, Hematocrit 39.2L , Mean Corpuscular Volume 83, Mean Corpuscular Hemoglobin 25.6L, Mean Corpuscular Hemoglobin Concent 30.7L, Red Cell Distribution Width 17.0H, Platelet Count 251, Mean Platelet Volume 6.6, Neutrophils (%) (Auto) 75.5H, Lymphocytes (%) (Auto) 12.0L, Monocytes (%) (Auto) 10.5H, Eosinophils (%) (Auto ) 0.0, Basophils (%) (Auto) 2.0, Sodium Level 137, Potassium Level 4.9, Chloride Level 106, Carbon Dioxide Level 24, Anion Gap 7, Blood Urea Nitrogen 28H, Creatinine 1.4H, Estimat Glomerular Filtration Rate > 60, Glucose Level 96 , Calcium Level 7.8L Height (Feet): 6 Height (Inches): 1.00 Weight (Pounds): 130 Objective HEAD AND NECK: No JVP. No LAD. Bitemporal wasting. Extraocular movement intact. Pupils are reactive to light and accommodation. LUNGS: Bilateral wheezing. CARDIAC: Regular rate and rhythm. S1, S2. No murmur. No rub. ABDOMEN: Soft, nontender, and nondistended. EXTREMITIES: Right heel ulceration, which is on dressing. No edema. No clubbing. Enriqueta Briones MD Dec 25, 2018 12:37
--- NOTE | 2018-12-25 13:17 | General Progress Note ---
Assessment/Plan Problem List: (1) Acute and chronic respiratory failure ICD Codes: J96.20 - Acute and chronic respiratory failure, unspecified whether with hypoxia or hypercapnia SNOMED: 77160452 (2) Chest pain ICD Codes: R07.9 - Chest pain, unspecified SNOMED: 43105662 Qualifiers: Qualified Codes: R07.9 - Chest pain, unspecified (3) HTN (hypertension) ICD Codes: I10 - Hypertension SNOMED: 98556475 (4) COPD exacerbation ICD Codes: J44.1 - Obstructive chronic bronchitis with exacerbation SNOMED: 993563249 (5) Acute CHF (congestive heart failure) ICD Codes: I50.9 - Heart failure, unspecified SNOMED: 59401814 Qualifiers: Qualified Codes: I50.9 - Heart failure, unspecified Status: stable, progressing Assessment/Plan o2 pulmt x pt diet cbc bmp am dc plan w hh Subjective Constitutional: Reports: weakness Respiratory: Reports: shortness of breath Allergies: Coded Allergies: EGG (Verified Allergy, Unknown, 09/28/18) MEPERIDINE (Verified Allergy, Unknown, 09/28/18) MORPHINE (Verified Allergy, Unknown, 09/28/18) NITROGLYCERIN (Verified Allergy, Unknown, hives, 09/28/18) All Systems: reviewed and negative except above Subjective o2nc calm in bed Objective Last 24 Hour Vital Signs Date Time Temp Pulse Resp B/P (MAP) Pulse Ox O2 Delivery O2 Flow Rate FiO2 12/25/18 10:15 97.5 12/25/18 09:46 106 163/92 12/25/18 09:00 Nasal Cannula 2.0 12/25/18 08:00 97.5 16 163/92 (115) 100 12/25/18 04:00 106 12/25/18 04:00 98.4 118 22 127/72 (90) 91 12/25/18 03:01 106 20 98 Room Air 21 12/25/18 02:50 102 18 95 Room Air 21 12/25/18 00:05 97.9 12/25/18 00:00 98.7 101 22 138/69 (92) 93 12/25/18 00:00 110 12/24/18 22:46 Room Air 12/24/18 22:46 Room Air 12/24/18 21:00 Nasal Cannula 2.0 12/24/18 20:00 110 12/24/18 20:00 98.3 119 22 155/97 (116) 95 12/24/18 18:53 Room Air 21 12/24/18 18:53 104 18 96 Room Air 21 12/24/18 18:53 96 Room Air 21 12/24/18 18:50 104 18 Room Air 21 12/24/18 16:00 98.6 100 19 161/85 (110) 98 12/24/18 16:00 103 Intake and Output 12/24/18 12/25/18 19:00 07:00 Intake Total 1200 ml Output Total 300 ml Balance 900 ml Other 1200 ml Output Urine Total 300 ml Laboratory Tests 12/25/18 07:17: White Blood Count 7.9, Red Blood Count 4.70, Hemoglobin 12.0L, Hematocrit 39.2L , Mean Corpuscular Volume 83, Mean Corpuscular Hemoglobin 25.6L, Mean Corpuscular Hemoglobin Concent 30.7L, Red Cell Distribution Width 17.0H, Platelet Count 251, Mean Platelet Volume 6.6, Neutrophils (%) (Auto) 75.5H, Lymphocytes (%) (Auto) 12.0L, Monocytes (%) (Auto) 10.5H, Eosinophils (%) (Auto ) 0.0, Basophils (%) (Auto) 2.0, Sodium Level 137, Potassium Level 4.9, Chloride Level 106, Carbon Dioxide Level 24, Anion Gap 7, Blood Urea Nitrogen 28H, Creatinine 1.4H, Estimat Glomerular Filtration Rate > 60, Glucose Level 96 , Calcium Level 7.8L Height (Feet): 6 Height (Inches): 1.00 Weight (Pounds): 130 General Appearance: lethargic EENT: PERRL/EOMI Neck: normal alignment Cardiovascular: normal peripheral pulses, normal rate, regular rhythm Respiratory/Chest: chest wall non-tender, decreased breath sounds Abdomen: normal bowel sounds, non tender, soft Extremities: normal inspection Edema: no edema noted Arm (L), no edema noted Arm (R), no edema noted Leg (L), no edema noted Leg (R), no edema noted Pedal (L), no edema noted Pedal (R), no edema noted Generalized Neurologic: responsive, motor weakness Skin: normal pigmentation, warm/dry Fabio Tracey DO Dec 25, 2018 13:17
--- NOTE | 2018-12-25 14:28 | NUR ---
NURSE NOTES: per my conversation with ([facility] ambulance driver) and Anselmo ([employer] specialist) patient is clear by their perspective of view to be dc. per DR. Anaya patient needs to see DR. Best [phone] out patient
--- NOTE | 2018-12-25 14:39 | NUR ---
Social Service Note ASHLEE spoke with Marjorie at [facility] [phone]. ASHLEE confirmed home health will resume service and will schedule home visit within 24 hours.
--- NOTE | 2018-12-25 14:59 | Diagnostic Imaging Report ---
Clinical Indication: Chronic recurrent chest pain Technique: Spiral acquisitions obtained through the chest. No IV contrast utilized, per referring physician request. Multiplanar reconstructions generated. Total dose length product 608.72 mGycm. CTDIvol(s) 14.25 mGy. Dose reduction achieved using automated exposure control Comparison: 12/24/2010 Findings: There is image degradation due to respiratory motion artifact. As previously, lungs are hyperinflated, consistent with COPD. Subpleural bullous changes are seen in both lung apices as well as within the suprahilar regions bilaterally. Minimal reticular opacities at the right lung base posteriorly may reflect dependent atelectatic changes or chronic interstitial fibrotic changes. Some honeycombing is seen in the right as ago esophageal recess consistent with chronic fibrotic changes. There is probably some scarring also in the anteromedial lingula minimal scarring or atelectasis is seen at the left lung base.. No definite infiltrates, effusions, mass. Small nodules cannot be excluded with any confidence due to respiratory motion causing the possibility of misregistration artifact. Previously demonstrated left lower lobe lesion is no longer evident. Interim fairly dense calcification of the ascending thoracic aorta. There is evidence of prior median sternotomy and coronary artery bypass grafting. The heart size is normal. No pericardial effusion. The esophagus is unremarkable. No mediastinal or hilar mass or adenopathy. Calcified granulomatous nodes are again seen in the right pulmonary hilum No evidence of pulmonary arterial dilatation. The included thyroid is unremarkable. No axillary or chest wall mass or adenopathy. There is a mild wedge compression fracture deformity of the T9 vertebral body which is not definitely evident on the prior exam The included upper abdominal anatomy is remarkable for the presence of numerous calcifications scattered throughout the spleen. A few calcifications are seen within the liver subcentimeter low-attenuation lesions are seen within the liver which are too small to characterize. There is a left renal cyst. Previously demonstrated left adrenal nodule is not clearly visible due to motion artifact Impression: Somewhat limited exam, due to respiratory motion artifact No acute process COPD changes, also previously reported. Other scattered areas of likely postinflammatory change, as described Evidence of old right hilar granulomatous cassy calcification Previously demonstrated left lower lobe lesion is no longer evident. As there are no findings to suggest interim surgery, this must have been an postinflammatory lesion that has resolved T9 vertebral body mild wedge compression fracture deformity, age indeterminate, new since prior 12/24/2010 exam. Consider MRI for better characterization if this is considered clinically relevant Increasing dense calcium indication of the ascending thoracic aorta Evidence of prior median sternotomy and coronary bypass grafting, also previously described Hepatic subcentimeter low-attenuation lesions, too small to characterize, most likely benign simple cysts or bile hamartomas. Other findings as noted, including evidence old granulomatous disease within the liver and spleen, left renal cyst The CT scanner at [facility] [place] [facility] is accredited by the [employer] and the scans are performed using protocols designed to limit radiation exposure to as low as reasonably achievable to attain images of sufficient resolution adequate for diagnostic evaluation.
[2018-12-25 16:00] VITALS: BP 168/89
--- NOTE | 2018-12-25 18:58 | Cardiology Progress Note ---
Assessment/Plan Assessment/Plan 1. Chronic recurrent chest pain. 2. Visible foreign body in the left sternal area consistent with sternal wires. 3. Coronary artery disease, status post coronary artery bypass grafting and prior PCI. 4. COPD. 5. Chronic pain. 6. Osteomyelitis of lower extremity. was not able to see cts at [facility] he says they did not answer their phone!! sternal wire is note on exam chest wall is ternder will order ct of the sternum ct doen but no commnets abouthte sternum made hhn q4 hour prn feesl better to day gopign to snf soon Subjective Cardiovascular: Reports: chest pain - better Respiratory: Reports: shortness of breath - better Gastrointestinal/Abdominal: Denies: abdominal pain Genitourinary: Denies: burning Objective Last 24 Hour Vital Signs Date Time Temp Pulse Resp B/P (MAP) Pulse Ox O2 Delivery O2 Flow Rate FiO2 12/25/18 18:22 97.5 12/25/18 16:00 105 12/25/18 16:00 99.1 102 16 168/89 (115) 97 12/25/18 12:00 108 12/25/18 12:00 100.1 106 16 152/73 (99) 94 12/25/18 10:15 97.5 12/25/18 09:46 106 163/92 12/25/18 09:00 Nasal Cannula 2.0 12/25/18 08:00 97.5 16 163/92 (115) 100 12/25/18 08:00 106 12/25/18 04:00 106 12/25/18 04:00 98.4 118 22 127/72 (90) 91 12/25/18 03:01 106 20 98 Room Air 21 12/25/18 02:50 102 18 95 Room Air 21 12/25/18 00:05 97.9 12/25/18 00:00 98.7 101 22 138/69 (92) 93 12/25/18 00:00 110 12/24/18 22:46 Room Air 12/24/18 22:46 Room Air 12/24/18 21:00 Nasal Cannula 2.0 12/24/18 20:00 110 12/24/18 20:00 98.3 119 22 155/97 (116) 95 General Appearance: no apparent distress, alert Neck: supple Cardiovascular: normal rate Respiratory/Chest: chest wall non-tender, lungs clear Abdomen: normal bowel sounds, non tender, soft Extremities: no swelling Intake and Output 12/24/18 12/25/18 19:00 07:00 Intake Total 1200 ml Output Total 300 ml Balance 900 ml Other 1200 ml Output Urine Total 300 ml Laboratory Tests Test 12/25/18 07:17 White Blood Count 7.9 K/UL (4.8-10.8) Red Blood Count 4.70 M/UL (4.70-6.10) Hemoglobin 12.0 G/DL (14.2-18.0) L Hematocrit 39.2 % (42.0-52.0) L Mean Corpuscular Volume 83 FL (80-99) Mean Corpuscular Hemoglobin 25.6 PG (27.0-31.0) L Mean Corpuscular Hemoglobin Concent 30.7 G/DL (32.0-36.0) L Red Cell Distribution Width 17.0 % (11.6-14.8) H Platelet Count 251 K/UL (150-450) Mean Platelet Volume 6.6 FL (6.5-10.1) Neutrophils (%) (Auto) 75.5 % (45.0-75.0) H Lymphocytes (%) (Auto) 12.0 % (20.0-45.0) L Monocytes (%) (Auto) 10.5 % (1.0-10.0) H Eosinophils (%) (Auto) 0.0 % (0.0-3.0) Basophils (%) (Auto) 2.0 % (0.0-2.0) Sodium Level 137 MMOL/L (136-145) Potassium Level 4.9 MMOL/L (3.5-5.1) Chloride Level 106 MMOL/L (98-107) Carbon Dioxide Level 24 MMOL/L (21-32) Anion Gap 7 mmol/L (5-15) Blood Urea Nitrogen 28 mg/dL (7-18) H Creatinine 1.4 MG/DL (0.55-1.30) H Estimat Glomerular Filtration Rate > 60 mL/min (>60) Glucose Level 96 MG/DL (74-106) Calcium Level 7.8 MG/DL (8.5-10.1) L Sergio Anaya MD Dec 25, 2018 18:58
[2018-12-25 21:30] VITALS: BP 118/76
--- NOTE | 2018-12-25 21:30 | NUR ---
NURSE NOTES: Received report from CHRISTOPHER Timmons. Awake in bed, alert. No signs of acute distress or discomfort observed. left upper arm IV site intact and patent, no s/s of infiltration. Dressing noted to Right ankle, clean, dry and intact. No SOB noted. Bed in lowest position. Call light within easy reach, wheels locked, alarm on. Nursing protocol implemented and effective. Will continue to monitor.
--- NOTE | 2018-12-25 23:53 | General Progress Note ---
Assessment/Plan Problem List: (1) Major depression ICD Codes: F32.9 - Major depressive disorder, single episode, unspecified SNOMED: 790394257 (2) Severe protein-calorie malnutrition ICD Codes: E43 - Unspecified severe protein-calorie malnutrition SNOMED: 740480044 Assessment/Plan Remeron 30mg qhs provided ro/st Subjective 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: Reports: anxiety, depressed, emotional problems Allergies: Coded Allergies: EGG (Verified Allergy, Unknown, 09/28/18) MEPERIDINE (Verified Allergy, Unknown, 09/28/18) MORPHINE (Verified Allergy, Unknown, 09/28/18) NITROGLYCERIN (Verified Allergy, Unknown, hives, 09/28/18) Objective Last 24 Hour Vital Signs Date Time Temp Pulse Resp B/P (MAP) Pulse Ox O2 Delivery O2 Flow Rate FiO2 12/25/18 21:35 Nasal Cannula 2.0 12/25/18 21:30 98.6 96 18 118/76 (90) 97 12/25/18 21:30 92 12/25/18 20:30 Room Air 21 12/25/18 20:00 97 Room Air 21 12/25/18 20:00 92 20 Room Air 21 12/25/18 18:22 97.5 12/25/18 16:00 105 12/25/18 16:00 99.1 102 16 168/89 (115) 97 12/25/18 12:00 108 12/25/18 12:00 100.1 106 16 152/73 (99) 94 12/25/18 10:15 97.5 12/25/18 09:46 106 163/92 12/25/18 09:00 Nasal Cannula 2.0 12/25/18 08:00 97.5 16 163/92 (115) 100 12/25/18 08:00 106 12/25/18 04:00 106 12/25/18 04:00 98.4 118 22 127/72 (90) 91 12/25/18 03:01 106 20 98 Room Air 21 12/25/18 02:50 102 18 95 Room Air 21 12/25/18 00:05 97.9 12/25/18 00:00 98.7 101 22 138/69 (92) 93 12/25/18 00:00 110 Intake and Output 12/24/18 12/25/18 19:00 07:00 Intake Total 1200 ml Output Total 300 ml Balance 900 ml Other 1200 ml Output Urine Total 300 ml Laboratory Tests 12/25/18 07:17: White Blood Count 7.9, Red Blood Count 4.70, Hemoglobin 12.0L, Hematocrit 39.2L , Mean Corpuscular Volume 83, Mean Corpuscular Hemoglobin 25.6L, Mean Corpuscular Hemoglobin Concent 30.7L, Red Cell Distribution Width 17.0H, Platelet Count 251, Mean Platelet Volume 6.6, Neutrophils (%) (Auto) 75.5H, Lymphocytes (%) (Auto) 12.0L, Monocytes (%) (Auto) 10.5H, Eosinophils (%) (Auto ) 0.0, Basophils (%) (Auto) 2.0, Sodium Level 137, Potassium Level 4.9, Chloride Level 106, Carbon Dioxide Level 24, Anion Gap 7, Blood Urea Nitrogen 28H, Creatinine 1.4H, Estimat Glomerular Filtration Rate > 60, Glucose Level 96 , Calcium Level 7.8L Height (Feet): 6 Height (Inches): 1.00 Weight (Pounds): 130 General Appearance: no apparent distress, alert Neurologic: depressed affect Rachael Buckley MD Dec 25, 2018 23:53
[2018-12-26] VITALS: BP 121/83
[2018-12-26 04:12] VITALS: BP 132/75
--- NOTE | 2018-12-26 07:23 | NUR ---
HAND-OFF: Report given to CHRISTOPHER Timmons. Patient in stable condition. Plan of care endorsed.
--- NOTE | 2018-12-26 07:29 | NUR ---
NURSE NOTES: Received report from CHRISTOPHER Christie. Pt is a/o x4 ,resting in bed with open eyes. No s/s of pain or distress noted at this time. Bed is in lowest position, side rails up X3, call light and frequent used objects are within reach.iv intact and patent. Will continue to monitor.
[2018-12-26 08:00] VITALS: BP 167/94
[2018-12-26] MEDS: Albuterol/Ipratropium 3ml neb HHN PRN (08:03)
[2018-12-26] MEDS: Solu-MEDROL 40mg Inj IVP SCH (08:15)
[2018-12-26] MEDS: Theophylline ER 100mg ORAL SCH ×2 (08:18→20:51)
[2018-12-26] MEDS: Lisinopril 10mg tab ORAL SCH (08:18)
[2018-12-26] MEDS: Heparin 5000 units/ml inj SUBQ SCH ×2 (08:29→20:52)
--- NOTE | 2018-12-26 09:00 | General Progress Note ---
Assessment/Plan Problem List: (1) Acute and chronic respiratory failure ICD Codes: J96.20 - Acute and chronic respiratory failure, unspecified whether with hypoxia or hypercapnia SNOMED: 54281200 (2) Chest pain ICD Codes: R07.9 - Chest pain, unspecified SNOMED: 36815211 Qualifiers: Qualified Codes: R07.9 - Chest pain, unspecified (3) HTN (hypertension) ICD Codes: I10 - Hypertension SNOMED: 36806051 (4) COPD exacerbation ICD Codes: J44.1 - Obstructive chronic bronchitis with exacerbation SNOMED: 662770432 (5) Acute CHF (congestive heart failure) ICD Codes: I50.9 - Heart failure, unspecified SNOMED: 93447374 Qualifiers: Qualified Codes: I50.9 - Heart failure, unspecified Status: stable, progressing Assessment/Plan o2 pulmt x pt diet cbc bmp am dc plan snf Subjective Constitutional: Reports: weakness Respiratory: Reports: shortness of breath Allergies: Coded Allergies: EGG (Verified Allergy, Unknown, 09/28/18) MEPERIDINE (Verified Allergy, Unknown, 09/28/18) MORPHINE (Verified Allergy, Unknown, 09/28/18) NITROGLYCERIN (Verified Allergy, Unknown, hives, 09/28/18) All Systems: reviewed and negative except above Subjective o2nc calm in bed Objective Last 24 Hour Vital Signs Date Time Temp Pulse Resp B/P (MAP) Pulse Ox O2 Delivery O2 Flow Rate FiO2 12/26/18 08:53 Nasal Cannula 2.0 12/26/18 08:45 97.5 12/26/18 08:18 167/94 12/26/18 08:17 121 167/94 12/26/18 08:07 118 22 99 Room Air 21 12/26/18 08:03 97 Room Air 21 12/26/18 08:03 Room Air 21 12/26/18 08:03 117 22 Room Air 21 12/26/18 08:03 117 22 96 Room Air 21 12/26/18 08:00 97.5 121 20 167/94 (118) 97 12/26/18 04:35 114 12/26/18 04:12 97.5 101 18 132/75 (94) 97 12/26/18 00:00 97.7 102 19 121/83 (96) 96 12/26/18 00:00 101 12/25/18 21:35 Nasal Cannula 2.0 12/25/18 21:30 98.6 96 18 118/76 (90) 97 12/25/18 21:30 92 12/25/18 20:30 Room Air 21 12/25/18 20:00 97 Room Air 21 12/25/18 20:00 92 20 Room Air 21 12/25/18 16:00 105 12/25/18 16:00 99.1 102 16 168/89 (115) 97 12/25/18 12:00 108 12/25/18 12:00 100.1 106 16 152/73 (99) 94 12/25/18 10:15 97.5 12/25/18 09:46 106 163/92 Intake and Output 12/25/18 12/26/18 18:59 06:59 Intake Total 240 ml 120 ml Output Total 300 ml Balance 240 ml -180 ml Intake Oral 240 ml 120 ml Output Urine Total 300 ml # Voids 3 Height (Feet): 6 Height (Inches): 1.00 Weight (Pounds): 130 General Appearance: lethargic EENT: normal ENT inspection Neck: normal alignment Cardiovascular: normal peripheral pulses, normal rate, regular rhythm Respiratory/Chest: chest wall non-tender, decreased breath sounds Abdomen: normal bowel sounds, non tender, soft Extremities: normal inspection Edema: no edema noted Arm (L), no edema noted Arm (R), no edema noted Leg (L), no edema noted Leg (R), no edema noted Pedal (L), no edema noted Pedal (R), no edema noted Generalized Neurologic: responsive, motor weakness Skin: normal pigmentation, warm/dry Fabio Tracey DO Dec 26, 2018 09:00
[2018-12-26 10:30] LABS: BASOPHILS % (AUTO) 1.6 % (0.0-2.0); EOSINOPHILS % (AUTO) 3.1 % (0.0-3.0); HEMATOCRIT 36.9 % (42.0-52.0); HEMOGLOBIN 11.6 G/DL (14.2-18.0); LYMPHOCYTES % (AUTO) 6.6 % (20.0-45.0); MEAN CORPUSCULAR VOLUME 83 FL (80-99); MONOCYTES % (AUTO) 7.3 % (1.0-10.0); NEUTROPHILS % (AUTO) 81.3 % (45.0-75.0); PLATELET COUNT 234 K/UL (150-450); RED BLOOD COUNT 4.47 M/UL (4.70-6.10); RED CELL DISTRIBUTION WIDTH 16.8 % (11.6-14.8); WHITE BLOOD COUNT 7.9 K/UL (4.8-10.8)
[2018-12-26 10:33] LABS: ANION GAP 9 mmol/L (5-15); BLOOD UREA NITROGEN 29 mg/dL (7-18); CALCIUM 8.4 MG/DL (8.5-10.1); CARBON DIOXIDE 25 MMOL/L (21-32); CHLORIDE 106 MMOL/L (98-107); CREATININE 1.4 MG/DL (0.55-1.30); POTASSIUM 4.3 MMOL/L (3.5-5.1); SODIUM 140 MMOL/L (136-145)
[2018-12-26 11:53] VITALS: BP 115/61
--- NOTE | 2018-12-26 12:11 | Pulmonology Progress Note ---
Assessment/Plan Assessment/Plan ASSESSMENT COPD exacerbation Acute bronchitis Acute renal failure on chronic kidney disease Visible foreign body in the left sternal area , consistent with sternal wires. HTN CAD with hx of CABG Severe protein calorie malnutrition Chronic right leg ulcer Hypothyroidism Seizure disorder PLAN OF CARE tele O2 HHN prn CXR c/w COPD no acute changes sputum cx negative Taper steroid and change to oral in am continue theophylline antitussive as needed Add Mucomyst CT chest- No acute process -COPD changes, -Other scattered areas of likely postinflammatory change -Evidence of old right hilar granulomatous cassy calcification - Previously demonstrated left lower lobe lesion is no longer evident/resolved -T9 vertebral body mild wedge compression fracture deformity, age indeterminate , new since prior 12/24/2010 exam. No comments about sternum on the CT chest cardio follows antiplatelet therapy with Plavix BP management with CCB and QUINTEN patient unable to see cardiothoracic surgeon at [facility] pain management DVT prophylaxis fup with further cardio recs re sternal wires seizure precautions continue Keppra monitor renal parameters and electrolytes avoid nephrotoxic, replace electrolytes as needed , follow-up with further nephro recs dietary eval re protein supplements continue Synthroid L leg wound stable, no evidence of infection will transfer to [place] when tachycardia resolved dc plan to SNF case discussed and evaluated by supervising physician Subjective Allergies: Coded Allergies: EGG (Verified Allergy, Unknown, 09/28/18) MEPERIDINE (Verified Allergy, Unknown, 09/28/18) MORPHINE (Verified Allergy, Unknown, 09/28/18) NITROGLYCERIN (Verified Allergy, Unknown, hives, 09/28/18) Subjective reports cough, congestion, no wheezing tachycardic afebrile, no leuk Objective Last 24 Hour Vital Signs Date Time Temp Pulse Resp B/P (MAP) Pulse Ox O2 Delivery O2 Flow Rate FiO2 12/26/18 11:53 97.3 106 20 115/61 (79) 92 12/26/18 08:53 Nasal Cannula 2.0 12/26/18 08:45 97.5 12/26/18 08:18 167/94 12/26/18 08:17 121 167/94 12/26/18 08:07 118 22 99 Room Air 21 12/26/18 08:03 97 Room Air 21 12/26/18 08:03 Room Air 21 12/26/18 08:03 117 22 Room Air 21 12/26/18 08:03 117 22 96 Room Air 21 12/26/18 08:00 97.5 121 20 167/94 (118) 97 12/26/18 04:35 114 12/26/18 04:12 97.5 101 18 132/75 (94) 97 12/26/18 00:00 97.7 102 19 121/83 (96) 96 12/26/18 00:00 101 12/25/18 21:35 Nasal Cannula 2.0 12/25/18 21:30 98.6 96 18 118/76 (90) 97 12/25/18 21:30 92 12/25/18 20:30 Room Air 21 12/25/18 20:00 97 Room Air 21 12/25/18 20:00 92 20 Room Air 21 12/25/18 16:00 105 12/25/18 16:00 99.1 102 16 168/89 (115) 97 12/25/18 12:00 108 12/25/18 12:00 100.1 106 16 152/73 (99) 94 Intake and Output 12/25/18 12/26/18 18:59 06:59 Intake Total 240 ml 120 ml Output Total 300 ml Balance 240 ml -180 ml Intake Oral 240 ml 120 ml Output Urine Total 300 ml # Voids 3 General Appearance: no acute distress HEENT: normocephalic, atraumatic, anicteric Respiratory/Chest: no accessory muscle use, decreased breath sounds Cardiovascular: regular rhythm, no JVD, tachycardia Abdomen: normal bowel sounds, no organomegaly, non distended Extremities: no edema, pedal pulses normal 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: abnormal gait, alert, oriented x 3, responsive Laboratory Tests 12/26/18 09:55: White Blood Count 7.9, Red Blood Count 4.47L, Hemoglobin 11.6L, Hematocrit 36.9L , Mean Corpuscular Volume 83, Mean Corpuscular Hemoglobin 25.9L, Mean Corpuscular Hemoglobin Concent 31.3L, Red Cell Distribution Width 16.8H, Platelet Count 234, Mean Platelet Volume 6.1L, Neutrophils (%) (Auto) 81.3H, Lymphocytes (%) (Auto) 6.6L, Monocytes (%) (Auto) 7.3, Eosinophils (%) (Auto) 3.1H, Basophils (%) (Auto) 1.6, Sodium Level 140, Potassium Level 4.3, Chloride Level 106, Carbon Dioxide Level 25, Anion Gap 9, Blood Urea Nitrogen 29H, Creatinine 1.4H, Estimat Glomerular Filtration Rate > 60, Glucose Level 117H, Calcium Level 8.4L Current Medications Medications (Trade) Dose Ordered Sig/Aminata Route PRN Reason Start Time Stop Time Status Last Admin Dose Admin Albuterol/ Ipratropium (Albuterol/ Ipratropium) 3 ml Q4H PRN HHN dyspnea 12/22/18 07:30 12/27/18 07:29 12/26/18 08:03 Amlodipine Besylate (Norvasc) 10 mg DAILY ORAL 12/22/18 09:00 01/21/19 08:59 12/26/18 08:17 Clopidogrel Bisulfate (Plavix) 75 mg DAILY ORAL 12/22/18 09:00 01/21/19 08:59 12/26/18 08:15 Dextrose (Dextrose 50%) 25 ml Q30M PRN IV Hypoglycemia 12/22/18 07:30 01/21/19 07:29 Dextrose (Dextrose 50%) 50 ml Q30M PRN IV Hypoglycemia 12/22/18 07:30 01/21/19 07:29 Heparin Sodium (Porcine) (Heparin 5000 units/ml) 5,000 units EVERY 12 HOURS SUBQ 12/22/18 09:00 01/21/19 08:59 12/26/18 08:29 Hydromorphone HCl (Dilaudid) 3 mg Q3H PRN IV Severe Pain (Pain Scale 7-10) 12/25/18 12:45 12/29/18 12:44 12/26/18 11:36 Levetiracetam (Keppra) 250 mg Q12HR ORAL 12/22/18 09:00 01/21/19 08:59 12/26/18 08:15 Lisinopril (Zestril) 10 mg DAILY ORAL 12/26/18 09:00 01/25/19 08:59 12/26/18 08:18 Lorazepam (Ativan 2mg/ml 1ml) 0.5 mg Q4H PRN IV For Anxiety 12/22/18 07:30 12/29/18 07:29 Methylprednisolone Sodium Succinate (Solu-MEDROL) 40 mg DAILY IVP 12/25/18 09:00 01/21/19 11:59 12/26/18 08:15 Mirtazapine (Remeron) 30 mg BEDTIME ORAL 12/24/18 21:00 01/23/19 20:59 12/25/18 21:08 Ondansetron HCl (Zofran) 4 mg Q6H PRN IVP Nausea & Vomiting 12/22/18 07:30 01/21/19 07:29 Promethazine HCl/ Codeine (Phenergan with Codeine) 5 ml Q6H PRN ORAL For Cough 12/22/18 07:30 01/21/19 07:29 12/25/18 02:49 Temazepam (Restoril) 15 mg HSPRN PRN ORAL Insomnia 12/22/18 21:00 12/29/18 20:59 Theophylline (Wilfrido-Dur) 100 mg EVERY 12 HOURS ORAL 12/22/18 09:00 01/21/19 08:59 12/26/18 08:18 Kristine Black NP Dec 26, 2018 12:11
--- NOTE | 2018-12-26 15:01 | Nephrology Progress Note ---
Assessment/Plan Assessment 1. Acute renal failure improving 2. Chronic kidney disease. 3. Hyperkalemia stable 4. COPD exacerbation. 5. Chest pain. 6. Cardiovascular disease. Plan plan low k diet fallow up with us of kidney monitoring renal function avoid NSAID replace electrolyte as need it fallow up with urine study Subjective Subjective alert and awake c/o sob,cough and wheezing Objective Objective Last 24 Hour Vital Signs Date Time Temp Pulse Resp B/P (MAP) Pulse Ox O2 Delivery O2 Flow Rate FiO2 12/26/18 12:06 97.3 12/26/18 11:53 97.3 106 20 115/61 (79) 92 12/26/18 08:53 Nasal Cannula 2.0 12/26/18 08:18 167/94 12/26/18 08:17 121 167/94 12/26/18 08:07 118 22 99 Room Air 21 12/26/18 08:03 97 Room Air 21 12/26/18 08:03 Room Air 12/26/18 08:03 117 22 Room Air 21 12/26/18 08:03 117 22 96 Room Air 21 12/26/18 08:00 97.5 121 20 167/94 (118) 97 12/26/18 08:00 125 12/26/18 04:35 114 12/26/18 04:12 97.5 101 18 132/75 (94) 97 12/26/18 00:00 97.7 102 19 121/83 (96) 96 12/26/18 00:00 101 12/25/18 21:35 Nasal Cannula 2.0 12/25/18 21:30 98.6 96 18 118/76 (90) 97 12/25/18 21:30 92 12/25/18 20:30 Room Air 21 12/25/18 20:00 97 Room Air 21 12/25/18 20:00 92 20 Room Air 21 12/25/18 16:00 105 12/25/18 16:00 99.1 102 16 168/89 (115) 97 Intake and Output 12/25/18 12/26/18 19:00 07:00 Intake Total 240 ml 120 ml Output Total 300 ml Balance 240 ml -180 ml Intake Oral 240 ml 120 ml Output Urine Total 300 ml # Voids 3 Laboratory Tests 12/26/18 09:55: White Blood Count 7.9, Red Blood Count 4.47L, Hemoglobin 11.6L, Hematocrit 36.9L , Mean Corpuscular Volume 83, Mean Corpuscular Hemoglobin 25.9L, Mean Corpuscular Hemoglobin Concent 31.3L, Red Cell Distribution Width 16.8H, Platelet Count 234, Mean Platelet Volume 6.1L, Neutrophils (%) (Auto) 81.3H, Lymphocytes (%) (Auto) 6.6L, Monocytes (%) (Auto) 7.3, Eosinophils (%) (Auto) 3.1H, Basophils (%) (Auto) 1.6, Sodium Level 140, Potassium Level 4.3, Chloride Level 106, Carbon Dioxide Level 25, Anion Gap 9, Blood Urea Nitrogen 29H, Creatinine 1.4H, Estimat Glomerular Filtration Rate > 60, Glucose Level 117H, Calcium Level 8.4L Height (Feet): 6 Height (Inches): 1.00 Weight (Pounds): 130 Objective HEAD AND NECK: No JVP. No LAD. Bitemporal wasting. Extraocular movement intact. Pupils are reactive to light and accommodation. LUNGS: Bilateral wheezing. CARDIAC: Regular rate and rhythm. S1, S2. No murmur. No rub. ABDOMEN: Soft, nontender, and nondistended. EXTREMITIES: Right heel ulceration, which is on dressing. No edema. No clubbing. Enriqueta Briones MD Dec 26, 2018 15:01
[2018-12-26 16:00] VITALS: BP 116/82
--- NOTE | 2018-12-26 16:23 | Cardiology Progress Note ---
Assessment/Plan Assessment/Plan 1. Chronic recurrent chest pain. 2. Visible foreign body in the left sternal area consistent with sternal wires. 3. Coronary artery disease, status post coronary artery bypass grafting and prior PCI. 4. COPD. 5. Chronic pain. 6. Osteomyelitis of lower extremity. was not able to see cts at [facility] he says they did not answer their phone!! sternal wire is note on exam chest wall is ternder will order ct of the sternum ct doen but no comments about the sternum made hhn q4 hour prn feels better to day snf soon Subjective Cardiovascular: Reports: chest pain - better Respiratory: Reports: shortness of breath - better , arvin only jayme bad i early in am Gastrointestinal/Abdominal: Denies: abdominal pain Genitourinary: Denies: burning Objective Last 24 Hour Vital Signs Date Time Temp Pulse Resp B/P (MAP) Pulse Ox O2 Delivery O2 Flow Rate FiO2 12/26/18 12:06 97.3 12/26/18 11:53 97.3 106 20 115/61 (79) 92 12/26/18 08:53 Nasal Cannula 2.0 12/26/18 08:18 167/94 12/26/18 08:17 121 167/94 12/26/18 08:07 118 22 99 Room Air 21 12/26/18 08:03 97 Room Air 21 12/26/18 08:03 Room Air 21 12/26/18 08:03 117 22 Room Air 21 12/26/18 08:03 117 22 96 Room Air 21 12/26/18 08:00 97.5 121 20 167/94 (118) 97 12/26/18 08:00 125 12/26/18 04:35 114 12/26/18 04:12 97.5 101 18 132/75 (94) 97 12/26/18 00:00 97.7 102 19 121/83 (96) 96 12/26/18 00:00 101 12/25/18 21:35 Nasal Cannula 2.0 12/25/18 21:30 98.6 96 18 118/76 (90) 97 12/25/18 21:30 92 12/25/18 20:30 Room Air 21 12/25/18 20:00 97 Room Air 21 12/25/18 20:00 92 20 Room Air 21 General Appearance: no apparent distress, alert Neck: supple Cardiovascular: normal rate, regular rhythm Respiratory/Chest: expiratory wheezing Abdomen: normal bowel sounds, non tender, soft Extremities: no swelling Intake and Output 12/25/18 12/26/18 19:00 07:00 Intake Total 240 ml 120 ml Output Total 300 ml Balance 240 ml -180 ml Intake Oral 240 ml 120 ml Output Urine Total 300 ml # Voids 3 Laboratory Tests Test 12/26/18 09:55 White Blood Count 7.9 K/UL (4.8-10.8) Red Blood Count 4.47 M/UL (4.70-6.10) L Hemoglobin 11.6 G/DL (14.2-18.0) L Hematocrit 36.9 % (42.0-52.0) L Mean Corpuscular Volume 83 FL (80-99) Mean Corpuscular Hemoglobin 25.9 PG (27.0-31.0) L Mean Corpuscular Hemoglobin Concent 31.3 G/DL (32.0-36.0) L Red Cell Distribution Width 16.8 % (11.6-14.8) H Platelet Count 234 K/UL (150-450) Mean Platelet Volume 6.1 FL (6.5-10.1) L Neutrophils (%) (Auto) 81.3 % (45.0-75.0) H Lymphocytes (%) (Auto) 6.6 % (20.0-45.0) L Monocytes (%) (Auto) 7.3 % (1.0-10.0) Eosinophils (%) (Auto) 3.1 % (0.0-3.0) H Basophils (%) (Auto) 1.6 % (0.0-2.0) Sodium Level 140 MMOL/L (136-145) Potassium Level 4.3 MMOL/L (3.5-5.1) Chloride Level 106 MMOL/L (98-107) Carbon Dioxide Level 25 MMOL/L (21-32) Anion Gap 9 mmol/L (5-15) Blood Urea Nitrogen 29 mg/dL (7-18) H Creatinine 1.4 MG/DL (0.55-1.30) H Estimat Glomerular Filtration Rate > 60 mL/min (>60) Glucose Level 117 MG/DL (74-106) H Calcium Level 8.4 MG/DL (8.5-10.1) L HéctorSergio S. MD Dec 26, 2018 16:23
[2018-12-26] MEDS: guaiFENesin ER 600mg tab ORAL SCH (17:54)
--- NOTE | 2018-12-26 19:30 | NUR ---
NURSE NOTES: Got report from Shanelle WHITE. Pt in stable condition. States 9/10 pain will give prn pain med. No other s/s of distress or discomfort noted. Call light within reach, bedside table within reach, bed in low and locked position. Continue to monitor.
[2018-12-26 20:00] VITALS: BP 104/53
--- NOTE | 2018-12-26 23:19 | General Progress Note ---
Assessment/Plan Problem List: (1) MDD (major depressive disorder), recurrent episode ICD Codes: F33.9 - Major depressive disorder, recurrent, unspecified SNOMED: 865200581 (2) Severe protein-calorie malnutrition ICD Codes: E43 - Unspecified severe protein-calorie malnutrition SNOMED: 932017764 Assessment/Plan Remeron 30mg qhs provided ro/st Subjective 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: Reports: anxiety, depressed, emotional problems Allergies: Coded Allergies: EGG (Verified Allergy, Unknown, 09/28/18) MEPERIDINE (Verified Allergy, Unknown, 09/28/18) MORPHINE (Verified Allergy, Unknown, 09/28/18) NITROGLYCERIN (Verified Allergy, Unknown, hives, 09/28/18) Objective Last 24 Hour Vital Signs Date Time Temp Pulse Resp B/P (MAP) Pulse Ox O2 Delivery O2 Flow Rate FiO2 12/26/18 21:22 98.6 12/26/18 21:00 Nasal Cannula 2.0 12/26/18 20:00 98.5 109 19 104/53 (70) 97 12/26/18 19:45 Room Air 21 12/26/18 19:45 108 22 Room Air 21 12/26/18 19:45 97 Room Air 21 12/26/18 16:00 123 12/26/18 16:00 98.6 116 20 116/82 (93) 100 12/26/18 12:00 118 12/26/18 11:53 97.3 106 20 115/61 (79) 92 12/26/18 08:53 Nasal Cannula 2.0 12/26/18 08:18 167/94 12/26/18 08:17 121 167/94 12/26/18 08:07 118 22 99 Room Air 21 12/26/18 08:03 97 Room Air 21 12/26/18 08:03 Room Air 21 12/26/18 08:03 117 22 Room Air 21 12/26/18 08:03 117 22 96 Room Air 21 12/26/18 08:00 97.5 121 20 167/94 (118) 97 12/26/18 08:00 125 12/26/18 04:35 114 12/26/18 04:12 97.5 101 18 132/75 (94) 97 12/26/18 00:00 97.7 102 19 121/83 (96) 96 12/26/18 00:00 101 Intake and Output 12/25/18 12/26/18 19:00 07:00 Intake Total 240 ml 120 ml Output Total 300 ml Balance 240 ml -180 ml Intake Oral 240 ml 120 ml Output Urine Total 300 ml # Voids 3 Laboratory Tests 12/26/18 09:55: White Blood Count 7.9, Red Blood Count 4.47L, Hemoglobin 11.6L, Hematocrit 36.9L , Mean Corpuscular Volume 83, Mean Corpuscular Hemoglobin 25.9L, Mean Corpuscular Hemoglobin Concent 31.3L, Red Cell Distribution Width 16.8H, Platelet Count 234, Mean Platelet Volume 6.1L, Neutrophils (%) (Auto) 81.3H, Lymphocytes (%) (Auto) 6.6L, Monocytes (%) (Auto) 7.3, Eosinophils (%) (Auto) 3.1H, Basophils (%) (Auto) 1.6, Sodium Level 140, Potassium Level 4.3, Chloride Level 106, Carbon Dioxide Level 25, Anion Gap 9, Blood Urea Nitrogen 29H, Creatinine 1.4H, Estimat Glomerular Filtration Rate > 60, Glucose Level 117H, Calcium Level 8.4L Height (Feet): 6 Height (Inches): 1.00 Weight (Pounds): 130 General Appearance: WD/WN, no apparent distress, alert, cachetic Neurologic: oriented x 3, responsive, depressed affect Rachael Buckley MD Dec 26, 2018 23:19
[2018-12-27 00:21] VITALS: BP 123/80
[2018-12-27 04:21] VITALS: BP 129/65
--- NOTE | 2018-12-27 07:15 | NUR ---
HAND-OFF: Report given to dottie burton. endorsed plan of care.
[2018-12-27 07:46] LABS: BASOPHILS % (AUTO) 1.5 % (0.0-2.0); EOSINOPHILS % (AUTO) 4.8 % (0.0-3.0); HEMATOCRIT 36.5 % (42.0-52.0); HEMOGLOBIN 11.3 G/DL (14.2-18.0); LYMPHOCYTES % (AUTO) 14.9 % (20.0-45.0); MEAN CORPUSCULAR VOLUME 83 FL (80-99); MONOCYTES % (AUTO) 8.3 % (1.0-10.0); NEUTROPHILS % (AUTO) 70.5 % (45.0-75.0); PLATELET COUNT 258 K/UL (150-450); RED BLOOD COUNT 4.41 M/UL (4.70-6.10); RED CELL DISTRIBUTION WIDTH 16.4 % (11.6-14.8); WHITE BLOOD COUNT 11.5 K/UL (4.8-10.8)
[2018-12-27 07:48] VITALS: BP 129/68
--- NOTE | 2018-12-27 07:52 | Pulmonology Progress Note ---
Assessment/Plan Assessment/Plan ASSESSMENT COPD exacerbation Acute bronchitis Acute renal failure on chronic kidney disease Visible foreign body in the left sternal area , consistent with sternal wires. HTN CAD with hx of CABG Severe protein calorie malnutrition Chronic right leg ulcer Hypothyroidism Seizure disorder PLAN OF CARE tele O2 HHN prn tachycardic this am at this time will give Atrovent only, keep Duoneb prn when HR stabilized ECG as per cardio order add Budesonide inhalation CXR c/w COPD no acute changes sputum cx negative Taper steroid and change to oral this am continue theophylline continue antitussive as needed Mucomyst via HHN mild leuk probable due to steroids but will check CXR in am CT chest- No acute process -COPD changes, -Other scattered areas of likely postinflammatory change -Evidence of old right hilar granulomatous cassy calcification - Previously demonstrated left lower lobe lesion is no longer evident/resolved -T9 vertebral body mild wedge compression fracture deformity, age indeterminate , new since prior 12/24/2010 exam. Venous Duplex BLE pending No comments about sternum on the CT chest cardio follows antiplatelet therapy with Plavix BP management with CCB and QUINTEN patient unable to see cardiothoracic surgeon at [facility] pain management DVT prophylaxis fup with further cardio recs re sternal wires seizure precautions continue Keppra monitor renal parameters and electrolytes avoid nephrotoxic, replace electrolytes as needed , follow-up with further nephro recs dietary eval re protein supplements continue Synthroid L leg wound stable, no evidence of infection will transfer to [place] when tachycardia resolved dc plan to SNF case discussed and evaluated by supervising physician Subjective Allergies: Coded Allergies: EGG (Verified Allergy, Unknown, 09/28/18) MEPERIDINE (Verified Allergy, Unknown, 09/28/18) MORPHINE (Verified Allergy, Unknown, 09/28/18) NITROGLYCERIN (Verified Allergy, Unknown, hives, 09/28/18) Subjective reports cough, congestion, no wheezing tachycardic this am afebrile, mild leuk this am Objective Last 24 Hour Vital Signs Date Time Temp Pulse Resp B/P (MAP) Pulse Ox O2 Delivery O2 Flow Rate FiO2 12/27/18 07:48 99.2 120 18 129/68 (88) 95 12/27/18 07:15 Nasal Cannula 2.0 12/27/18 06:36 97.7 12/27/18 04:29 99 12/27/18 04:21 97.7 91 18 129/65 (86) 95 12/27/18 00:30 99 12/27/18 00:21 97.7 92 19 123/80 (94) 95 12/26/18 21:00 Nasal Cannula 2.0 12/26/18 20:00 98.5 109 19 104/53 (70) 97 12/26/18 20:00 105 12/26/18 19:45 Room Air 21 12/26/18 19:45 108 22 Room Air 21 12/26/18 19:45 97 Room Air 21 12/26/18 16:00 123 12/26/18 16:00 98.6 116 20 116/82 (93) 100 12/26/18 12:00 118 12/26/18 11:53 97.3 106 20 115/61 (79) 92 12/26/18 08:53 Nasal Cannula 2.0 12/26/18 08:18 167/94 12/26/18 08:17 121 167/94 12/26/18 08:07 118 22 99 Room Air 12/26/18 08:03 97 Room Air 21 12/26/18 08:03 Room Air 21 12/26/18 08:03 117 22 Room Air 12/26/18 08:03 117 22 96 Room Air 12/26/18 08:00 97.5 121 20 167/94 (118) 97 12/26/18 08:00 125 Intake and Output 12/26/18 12/27/18 19:00 07:00 Intake Total 1170 ml Output Total 600 ml Balance 570 ml Intake Oral 1170 ml Output Urine Total 600 ml # Voids 2 Objective General Appearance: no acute distress HEENT: normocephalic, atraumatic, anicteric Respiratory/Chest: no accessory muscle use, decreased breath sounds Cardiovascular: regular rhythm, no JVD, tachycardia, sternal wires exposed, chest wall at the site TTP Abdomen: normal bowel sounds, no organomegaly, non distended Extremities: no edema, pedal pulses normal, LLE with chronic wound, no signs of infection 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: abnormal gait, awake, alert, oriented x 3, responsive Laboratory Tests 12/26/18 09:55: White Blood Count 7.9, Red Blood Count 4.47L, Hemoglobin 11.6L, Hematocrit 36.9L , Mean Corpuscular Volume 83, Mean Corpuscular Hemoglobin 25.9L, Mean Corpuscular Hemoglobin Concent 31.3L, Red Cell Distribution Width 16.8H, Platelet Count 234, Mean Platelet Volume 6.1L, Neutrophils (%) (Auto) 81.3H, Lymphocytes (%) (Auto) 6.6L, Monocytes (%) (Auto) 7.3, Eosinophils (%) (Auto) 3.1H, Basophils (%) (Auto) 1.6, Sodium Level 140, Potassium Level 4.3, Chloride Level 106, Carbon Dioxide Level 25, Anion Gap 9, Blood Urea Nitrogen 29H, Creatinine 1.4H, Estimat Glomerular Filtration Rate > 60, Glucose Level 117H, Calcium Level 8.4L 12/27/18 06:20: White Blood Count 11.5H, Red Blood Count 4.41L, Hemoglobin 11.3L, Hematocrit 36.5L, Mean Corpuscular Volume 83, Mean Corpuscular Hemoglobin 25.6L, Mean Corpuscular Hemoglobin Concent 30.9L, Red Cell Distribution Width 16.4H, Platelet Count 258, Mean Platelet Volume 5.7L, Neutrophils (%) (Auto) 70.5, Lymphocytes (%) (Auto) 14.9L, Monocytes (%) (Auto) 8.3, Eosinophils (%) (Auto) 4.8H, Basophils (%) (Auto) 1.5, Sodium Level [Pending], Potassium Level [Pending ], Chloride Level [Pending], Carbon Dioxide Level [Pending], Blood Urea Nitrogen [Pending], Creatinine [Pending], Estimat Glomerular Filtration Rate [ Pending], Glucose Level [Pending], Calcium Level [Pending] Current Medications Medications (Trade) Dose Ordered Sig/Aminata Route PRN Reason Start Time Stop Time Status Last Admin Dose Admin Amlodipine Besylate (Norvasc) 10 mg DAILY ORAL 12/22/18 09:00 01/21/19 08:59 12/26/18 08:17 Clopidogrel Bisulfate (Plavix) 75 mg DAILY ORAL 12/22/18 09:00 01/21/19 08:59 12/26/18 08:15 Dextrose (Dextrose 50%) 25 ml Q30M PRN IV Hypoglycemia 12/22/18 07:30 01/21/19 07:29 Dextrose (Dextrose 50%) 50 ml Q30M PRN IV Hypoglycemia 12/22/18 07:30 01/21/19 07:29 Guaifenesin (Mucinex ER) 600 mg TWICE A DAY ORAL 12/26/18 18:00 01/25/19 17:59 12/26/18 17:54 Heparin Sodium (Porcine) (Heparin 5000 units/ml) 5,000 units EVERY 12 HOURS SUBQ 12/22/18 09:00 01/21/19 08:59 12/26/18 08:29 Hydromorphone HCl (Dilaudid) 3 mg Q3H PRN IV Severe Pain (Pain Scale 7-10) 12/25/18 12:45 12/29/18 12:44 12/27/18 06:06 Levetiracetam (Keppra) 250 mg Q12HR ORAL 12/22/18 09:00 01/21/19 08:59 12/26/18 20:51 Lisinopril (Zestril) 10 mg DAILY ORAL 12/26/18 09:00 01/25/19 08:59 12/26/18 08:18 Lorazepam (Ativan 2mg/ml 1ml) 0.5 mg Q4H PRN IV For Anxiety 12/22/18 07:30 12/29/18 07:29 Methylprednisolone Sodium Succinate (Solu-MEDROL) 30 mg DAILY IVP 12/27/18 09:00 01/21/19 11:59 Mirtazapine (Remeron) 30 mg BEDTIME ORAL 12/24/18 21:00 01/23/19 20:59 12/26/18 20:51 Ondansetron HCl (Zofran) 4 mg Q6H PRN IVP Nausea & Vomiting 12/22/18 07:30 01/21/19 07:29 Promethazine HCl/ Codeine (Phenergan with Codeine) 5 ml Q6H PRN ORAL For Cough 12/22/18 07:30 01/21/19 07:29 12/25/18 02:49 Temazepam (Restoril) 15 mg HSPRN PRN ORAL Insomnia 12/22/18 21:00 12/29/18 20:59 Theophylline (Wilfrido-Dur) 100 mg EVERY 12 HOURS ORAL 12/22/18 09:00 01/21/19 08:59 12/26/18 20:51 Kristine Black NP Dec 27, 2018 07:52
[2018-12-27 08:09] LABS: ANION GAP 9 mmol/L (5-15); BLOOD UREA NITROGEN 29 mg/dL (7-18); CALCIUM 8.4 MG/DL (8.5-10.1); CARBON DIOXIDE 24 MMOL/L (21-32); CHLORIDE 107 MMOL/L (98-107); CREATININE 1.4 MG/DL (0.55-1.30); POTASSIUM 4.6 MMOL/L (3.5-5.1); SODIUM 140 MMOL/L (136-145)
[2018-12-27] MEDS: Theophylline ER 100mg ORAL SCH ×2 (08:11→20:54)
[2018-12-27] MEDS: Lisinopril 10mg tab ORAL SCH (08:11)
[2018-12-27] MEDS: guaiFENesin ER 600mg tab ORAL SCH (08:11)
[2018-12-27] MEDS: Heparin 5000 units/ml inj SUBQ SCH ×2 (08:12→20:55)
--- NOTE | 2018-12-27 08:41 | General Progress Note ---
Assessment/Plan Problem List: (1) Acute and chronic respiratory failure ICD Codes: J96.20 - Acute and chronic respiratory failure, unspecified whether with hypoxia or hypercapnia SNOMED: 44895064 (2) Chest pain ICD Codes: R07.9 - Chest pain, unspecified SNOMED: 78525230 Qualifiers: Qualified Codes: R07.9 - Chest pain, unspecified (3) HTN (hypertension) ICD Codes: I10 - Hypertension SNOMED: 29899487 (4) COPD exacerbation ICD Codes: J44.1 - Obstructive chronic bronchitis with exacerbation SNOMED: 387522593 (5) Acute CHF (congestive heart failure) ICD Codes: I50.9 - Heart failure, unspecified SNOMED: 07080391 Qualifiers: Qualified Codes: I50.9 - Heart failure, unspecified Status: stable, progressing Assessment/Plan o2 pulmt x pt diet cbc bmp am dc plan snf Subjective Constitutional: Reports: weakness Respiratory: Reports: shortness of breath Allergies: Coded Allergies: EGG (Verified Allergy, Unknown, 09/28/18) MEPERIDINE (Verified Allergy, Unknown, 09/28/18) MORPHINE (Verified Allergy, Unknown, 09/28/18) NITROGLYCERIN (Verified Allergy, Unknown, hives, 09/28/18) All Systems: reviewed and negative except above Subjective o2nc calm in bed Objective Last 24 Hour Vital Signs Date Time Temp Pulse Resp B/P (MAP) Pulse Ox O2 Delivery O2 Flow Rate FiO2 12/27/18 08:11 129/68 12/27/18 08:11 114 129/68 12/27/18 07:56 Nasal Cannula 2.0 28 12/27/18 07:55 95 Nasal Cannula 2.0 28 12/27/18 07:54 114 24 Nasal Cannula 2.0 28 12/27/18 07:48 99.2 120 18 129/68 (88) 95 12/27/18 07:15 Nasal Cannula 2.0 12/27/18 06:36 97.7 12/27/18 04:29 99 12/27/18 04:21 97.7 91 18 129/65 (86) 95 12/27/18 00:30 99 12/27/18 00:21 97.7 92 19 123/80 (94) 95 12/26/18 21:00 Nasal Cannula 2.0 12/26/18 20:00 98.5 109 19 104/53 (70) 97 12/26/18 20:00 105 12/26/18 19:45 Room Air 21 12/26/18 19:45 108 22 Room Air 21 12/26/18 19:45 97 Room Air 21 12/26/18 16:00 123 12/26/18 16:00 98.6 116 20 116/82 (93) 100 12/26/18 12:00 118 12/26/18 11:53 97.3 106 20 115/61 (79) 92 12/26/18 08:53 Nasal Cannula 2.0 Intake and Output 12/26/18 12/27/18 18:59 06:59 Intake Total 1170 ml Output Total 600 ml Balance 570 ml Intake Oral 1170 ml Output Urine Total 600 ml # Voids 2 Laboratory Tests 12/26/18 09:55: White Blood Count 7.9, Red Blood Count 4.47L, Hemoglobin 11.6L, Hematocrit 36.9L , Mean Corpuscular Volume 83, Mean Corpuscular Hemoglobin 25.9L, Mean Corpuscular Hemoglobin Concent 31.3L, Red Cell Distribution Width 16.8H, Platelet Count 234, Mean Platelet Volume 6.1L, Neutrophils (%) (Auto) 81.3H, Lymphocytes (%) (Auto) 6.6L, Monocytes (%) (Auto) 7.3, Eosinophils (%) (Auto) 3.1H, Basophils (%) (Auto) 1.6, Sodium Level 140, Potassium Level 4.3, Chloride Level 106, Carbon Dioxide Level 25, Anion Gap 9, Blood Urea Nitrogen 29H, Creatinine 1.4H, Estimat Glomerular Filtration Rate > 60, Glucose Level 117H, Calcium Level 8.4L 12/27/18 06:20: White Blood Count 11.5H, Red Blood Count 4.41L, Hemoglobin 11.3L, Hematocrit 36.5L, Mean Corpuscular Volume 83, Mean Corpuscular Hemoglobin 25.6L, Mean Corpuscular Hemoglobin Concent 30.9L, Red Cell Distribution Width 16.4H, Platelet Count 258, Mean Platelet Volume 5.7L, Neutrophils (%) (Auto) 70.5, Lymphocytes (%) (Auto) 14.9L, Monocytes (%) (Auto) 8.3, Eosinophils (%) (Auto) 4.8H, Basophils (%) (Auto) 1.5, Sodium Level 140, Potassium Level 4.6, Chloride Level 107, Carbon Dioxide Level 24, Anion Gap 9, Blood Urea Nitrogen 29H, Creatinine 1.4H, Estimat Glomerular Filtration Rate > 60, Glucose Level 89, Calcium Level 8.4L Height (Feet): 6 Height (Inches): 1.00 Weight (Pounds): 130 General Appearance: lethargic EENT: normal ENT inspection Neck: normal alignment Cardiovascular: normal peripheral pulses, normal rate, regular rhythm Respiratory/Chest: chest wall non-tender, decreased breath sounds Abdomen: normal bowel sounds, non tender, soft Extremities: normal inspection Edema: no edema noted Arm (L), no edema noted Arm (R), no edema noted Leg (L), no edema noted Leg (R), no edema noted Pedal (L), no edema noted Pedal (R), no edema noted Generalized Neurologic: responsive, motor weakness Skin: normal pigmentation, warm/dry Fabio Tracey DO Dec 27, 2018 08:41
[2018-12-27] MEDS ORDERED: Solu-MEDROL 40mg Inj IVP SCH (09:00)
[2018-12-27] MEDS ORDERED: Ipratropium 0.02% Inh Soln 2.5ml UD HHN SCH (09:15)
--- NOTE | 2018-12-27 09:24 | NUR ---
NURSE NOTES: pt awake alert, no distress. slight sob receiving breathing tx at this time. pt sinus tachycardia on ekg , dr Anaya made aware , no prn cardio meds given, per md give breathing tx (keep duoneb and give atrovent x1 now). hob elevated, on 2lnc, call light within reach. isma monitor.
--- NOTE | 2018-12-27 11:45 | Cardiology Progress Note ---
Assessment/Plan Assessment/Plan 1. Chronic recurrent chest pain. 2. Visible foreign body in the left sternal area consistent with sternal wires. 3. Coronary artery disease, status post coronary artery bypass grafting and prior PCI. 4. COPD. 5. Chronic pain. 6. Osteomyelitis of lower extremity. 7. Tachycardia was not able to see cts at [facility] he says they did not answer their phone!! chest wall is ternder hhn q4 hour prn tachycardic today may be realted to hhn or [facility] level i ordered venoud euplex but he refused snf soon Subjective Cardiovascular: Reports: chest pain; Denies: lightheadedness Respiratory: Reports: shortness of breath Gastrointestinal/Abdominal: Denies: abdominal pain Genitourinary: Denies: burning Objective Last 24 Hour Vital Signs Date Time Temp Pulse Resp B/P (MAP) Pulse Ox O2 Delivery O2 Flow Rate FiO2 12/27/18 09:26 123 22 98 Nasal Cannula 2.0 28 12/27/18 09:19 125 24 96 Nasal Cannula 2.0 28 12/27/18 08:11 129/68 12/27/18 08:11 114 129/68 12/27/18 07:56 Nasal Cannula 2.0 28 12/27/18 07:55 95 Nasal Cannula 2.0 28 12/27/18 07:54 114 24 Nasal Cannula 2.0 28 12/27/18 07:50 130 12/27/18 07:48 99.2 120 18 129/68 (88) 95 12/27/18 07:15 Nasal Cannula 2.0 12/27/18 06:36 97.7 12/27/18 04:29 99 12/27/18 04:21 97.7 91 18 129/65 (86) 95 12/27/18 00:30 99 12/27/18 00:21 97.7 92 19 123/80 (94) 95 12/26/18 21:00 Nasal Cannula 2.0 12/26/18 20:00 98.5 109 19 104/53 (70) 97 12/26/18 20:00 105 12/26/18 19:45 Room Air 21 12/26/18 19:45 108 22 Room Air 21 12/26/18 19:45 97 Room Air 21 12/26/18 16:00 123 12/26/18 16:00 98.6 116 20 116/82 (93) 100 12/26/18 12:00 118 12/26/18 11:53 97.3 106 20 115/61 (79) 92 General Appearance: no apparent distress, alert Neck: supple Cardiovascular: tachycardia Respiratory/Chest: decreased breath sounds Abdomen: normal bowel sounds, non tender, soft Extremities: no swelling Intake and Output 12/26/18 12/27/18 18:59 06:59 Intake Total 1170 ml Output Total 600 ml Balance 570 ml Intake Oral 1170 ml Output Urine Total 600 ml # Voids 2 Laboratory Tests Test 12/27/18 06:20 White Blood Count 11.5 K/UL (4.8-10.8) H Red Blood Count 4.41 M/UL (4.70-6.10) L Hemoglobin 11.3 G/DL (14.2-18.0) L Hematocrit 36.5 % (42.0-52.0) L Mean Corpuscular Volume 83 FL (80-99) Mean Corpuscular Hemoglobin 25.6 PG (27.0-31.0) L Mean Corpuscular Hemoglobin Concent 30.9 G/DL (32.0-36.0) L Red Cell Distribution Width 16.4 % (11.6-14.8) H Platelet Count 258 K/UL (150-450) Mean Platelet Volume 5.7 FL (6.5-10.1) L Neutrophils (%) (Auto) 70.5 % (45.0-75.0) Lymphocytes (%) (Auto) 14.9 % (20.0-45.0) L Monocytes (%) (Auto) 8.3 % (1.0-10.0) Eosinophils (%) (Auto) 4.8 % (0.0-3.0) H Basophils (%) (Auto) 1.5 % (0.0-2.0) Sodium Level 140 MMOL/L (136-145) Potassium Level 4.6 MMOL/L (3.5-5.1) Chloride Level 107 MMOL/L (98-107) Carbon Dioxide Level 24 MMOL/L (21-32) Anion Gap 9 mmol/L (5-15) Blood Urea Nitrogen 29 mg/dL (7-18) H Creatinine 1.4 MG/DL (0.55-1.30) H Estimat Glomerular Filtration Rate > 60 mL/min (>60) Glucose Level 89 MG/DL (74-106) Calcium Level 8.4 MG/DL (8.5-10.1) L Sergio Anaya MD Dec 27, 2018 11:45
[2018-12-27 12:35] VITALS: BP 115/65
[2018-12-27 16:28] VITALS: BP 105/69
--- NOTE | 2018-12-27 17:23 | Nephrology Progress Note ---
Assessment/Plan Assessment 1. Acute renal failure improving 2. Chronic kidney disease. 3. Hyperkalemia stable 4. COPD exacerbation. 5. Chest pain. 6. Cardiovascular disease. Plan plan low k diet fallow up with us of kidney monitoring renal function avoid NSAID replace electrolyte as need it Subjective Subjective alert and awake no complaints Objective Objective Last 24 Hour Vital Signs Date Time Temp Pulse Resp B/P (MAP) Pulse Ox O2 Delivery O2 Flow Rate FiO2 12/27/18 16:28 97.9 120 18 105/69 (81) 95 12/27/18 16:12 97.9 12/27/18 15:44 111 12/27/18 12:35 97.9 126 18 115/65 (82) 95 12/27/18 11:52 116 12/27/18 09:26 123 22 98 Nasal Cannula 2.0 28 12/27/18 09:19 125 24 96 Nasal Cannula 2.0 28 12/27/18 08:11 129/68 12/27/18 08:11 114 129/68 12/27/18 07:56 Nasal Cannula 2.0 28 12/27/18 07:55 95 Nasal Cannula 2.0 28 12/27/18 07:54 114 24 Nasal Cannula 2.0 28 12/27/18 07:50 130 12/27/18 07:48 99.2 120 18 129/68 (88) 95 12/27/18 07:15 Nasal Cannula 2.0 12/27/18 04:29 99 12/27/18 04:21 97.7 91 18 129/65 (86) 95 12/27/18 00:30 99 12/27/18 00:21 97.7 92 19 123/80 (94) 95 12/26/18 21:00 Nasal Cannula 2.0 12/26/18 20:00 98.5 109 19 104/53 (70) 97 12/26/18 20:00 105 12/26/18 19:45 Room Air 21 12/26/18 19:45 108 22 Room Air 21 12/26/18 19:45 97 Room Air 21 Intake and Output 12/26/18 12/27/18 19:00 07:00 Intake Total 1170 ml Output Total 600 ml Balance 570 ml Intake Oral 1170 ml Output Urine Total 600 ml # Voids 2 Laboratory Tests 12/27/18 06:20: White Blood Count 11.5H, Red Blood Count 4.41L, Hemoglobin 11.3L, Hematocrit 36.5L, Mean Corpuscular Volume 83, Mean Corpuscular Hemoglobin 25.6L, Mean Corpuscular Hemoglobin Concent 30.9L, Red Cell Distribution Width 16.4H, Platelet Count 258, Mean Platelet Volume 5.7L, Neutrophils (%) (Auto) 70.5, Lymphocytes (%) (Auto) 14.9L, Monocytes (%) (Auto) 8.3, Eosinophils (%) (Auto) 4.8H, Basophils (%) (Auto) 1.5, Sodium Level 140, Potassium Level 4.6, Chloride Level 107, Carbon Dioxide Level 24, Anion Gap 9, Blood Urea Nitrogen 29H, Creatinine 1.4H, Estimat Glomerular Filtration Rate > 60, Glucose Level 89, Calcium Level 8.4L Height (Feet): 6 Height (Inches): 1.00 Weight (Pounds): 130 Objective HEAD AND NECK: No JVP. No LAD. Bitemporal wasting. Extraocular movement intact. Pupils are reactive to light and accommodation. LUNGS: Bilateral wheezing. CARDIAC: Regular rate and rhythm. S1, S2. No murmur. No rub. ABDOMEN: Soft, nontender, and nondistended. EXTREMITIES: Right heel ulceration, which is on dressing. No edema. No clubbing. Enriqueta Briones MD Dec 27, 2018 17:23
[2018-12-27] MEDS: Albuterol/Ipratropium 3ml neb HHN PRN (17:55)
--- NOTE | 2018-12-27 18:59 | NUR ---
NURSE NOTES: called lab and spoke with luis antonio who stated it was computer who cancelled theophylline order, reordered it.
--- NOTE | 2018-12-27 19:13 | NUR ---
HAND-OFF: Report given to NEW WHITE.
--- NOTE | 2018-12-27 19:13 | NUR ---
NURSE NOTES: andry baires of lab theophylline is pending.
--- NOTE | 2018-12-27 19:14 | NUR ---
NURSE NOTES: Report received from CHRISTOPHER Gutierrez. Patient seen in bed in iraheta position watching TV. Alert, verbally responsive, able to make needs known. Denies any pain at this time. Continues on oxygen 2L/min via NC. no acute respiratory distress is noted at this time. IV site to left upper arm 22g is intact. Bed is in lowest position. Call light is within easy reach. Will continue to monitor.
[2018-12-27 20:00] VITALS: BP 106/56
[2018-12-27] MEDS: Budesonide HHN 0.25mg/2ml ud HHN SCH (21:00)
--- NOTE | 2018-12-27 21:39 | General Progress Note ---
Assessment/Plan Problem List: (1) MDD (major depressive disorder), recurrent episode ICD Codes: F33.9 - Major depressive disorder, recurrent, unspecified SNOMED: 021908929 Status: stable, progressing Assessment/Plan remeron 30mg po qhs provided ro/st Subjective 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: Reports: anxiety, depressed, emotional problems Allergies: Coded Allergies: EGG (Verified Allergy, Unknown, 09/28/18) MEPERIDINE (Verified Allergy, Unknown, 09/28/18) MORPHINE (Verified Allergy, Unknown, 09/28/18) NITROGLYCERIN (Verified Allergy, Unknown, hives, 09/28/18) Objective Last 24 Hour Vital Signs Date Time Temp Pulse Resp B/P (MAP) Pulse Ox O2 Delivery O2 Flow Rate FiO2 12/27/18 21:00 Nasal Cannula 2.0 12/27/18 20:00 98.7 90 20 106/56 (73) 98 12/27/18 19:46 106 12/27/18 17:56 122 20 98 Nasal Cannula 2.0 28 12/27/18 17:50 116 20 95 Room Air 21 12/27/18 16:28 97.9 120 18 105/69 (81) 95 12/27/18 16:12 97.9 12/27/18 15:44 111 12/27/18 12:35 97.9 126 18 115/65 (82) 95 12/27/18 11:52 116 12/27/18 09:26 123 22 98 Nasal Cannula 2.0 28 12/27/18 09:19 125 24 96 Nasal Cannula 2.0 28 12/27/18 08:11 129/68 12/27/18 08:11 114 129/68 12/27/18 07:56 Nasal Cannula 2.0 28 12/27/18 07:55 95 Nasal Cannula 2.0 28 12/27/18 07:54 114 24 Nasal Cannula 2.0 28 12/27/18 07:50 130 12/27/18 07:48 99.2 120 18 129/68 (88) 95 12/27/18 07:15 Nasal Cannula 2.0 12/27/18 04:29 99 12/27/18 04:21 97.7 91 18 129/65 (86) 95 12/27/18 00:30 99 12/27/18 00:21 97.7 92 19 123/80 (94) 95 Intake and Output 12/26/18 12/27/18 19:00 07:00 Intake Total 1170 ml Output Total 600 ml Balance 570 ml Intake Oral 1170 ml Output Urine Total 600 ml # Voids 2 Laboratory Tests 12/27/18 06:20: White Blood Count 11.5H, Red Blood Count 4.41L, Hemoglobin 11.3L, Hematocrit 36.5L, Mean Corpuscular Volume 83, Mean Corpuscular Hemoglobin 25.6L, Mean Corpuscular Hemoglobin Concent 30.9L, Red Cell Distribution Width 16.4H, Platelet Count 258, Mean Platelet Volume 5.7L, Neutrophils (%) (Auto) 70.5, Lymphocytes (%) (Auto) 14.9L, Monocytes (%) (Auto) 8.3, Eosinophils (%) (Auto) 4.8H, Basophils (%) (Auto) 1.5, Sodium Level 140, Potassium Level 4.6, Chloride Level 107, Carbon Dioxide Level 24, Anion Gap 9, Blood Urea Nitrogen 29H, Creatinine 1.4H, Estimat Glomerular Filtration Rate > 60, Glucose Level 89, Calcium Level 8.4L 12/27/18 06:30: Theophylline Level 4.7L Height (Feet): 6 Height (Inches): 1.00 Weight (Pounds): 130 General Appearance: no apparent distress, alert, cachetic Neurologic: oriented x 3, responsive, depressed affect Rachael Buckley MD Dec 27, 2018 21:39
[2018-12-28] VITALS: BP 113/61
[2018-12-28 04:00] VITALS: BP 129/77
[2018-12-28 06:48] LABS: BASOPHILS % (AUTO) 1.1 % (0.0-2.0); EOSINOPHILS % (AUTO) 4.9 % (0.0-3.0); HEMATOCRIT 35.7 % (42.0-52.0); HEMOGLOBIN 10.9 G/DL (14.2-18.0); LYMPHOCYTES % (AUTO) 9.3 % (20.0-45.0); MEAN CORPUSCULAR VOLUME 84 FL (80-99); MONOCYTES % (AUTO) 10.9 % (1.0-10.0); NEUTROPHILS % (AUTO) 73.9 % (45.0-75.0); PLATELET COUNT 266 K/UL (150-450); RED BLOOD COUNT 4.26 M/UL (4.70-6.10); RED CELL DISTRIBUTION WIDTH 16.8 % (11.6-14.8)
[2018-12-28 07:10] LABS: ANION GAP 9 mmol/L (5-15); BLOOD UREA NITROGEN 34 mg/dL (7-18); CALCIUM 8.7 MG/DL (8.5-10.1); CARBON DIOXIDE 24 MMOL/L (21-32); CHLORIDE 107 MMOL/L (98-107); CREATININE 1.4 MG/DL (0.55-1.30); POTASSIUM 4.7 MMOL/L (3.5-5.1); SODIUM 140 MMOL/L (136-145)
--- NOTE | 2018-12-28 07:14 | NUR ---
HAND-OFF: Report given to CHRISTOPHER Greenwood .
[2018-12-28] MEDS: Albuterol/Ipratropium 3ml neb HHN PRN ×2 (07:25→12:43)
--- NOTE | 2018-12-28 07:45 | NUR ---
NURSE NOTES: Report received from CHRISTOPHER Kessler. Patient seen asleep in bed in semi-iraheta position. Patient is on oxygen 2L/min via NC. No acute respiratory distress is noted at this time. IV site to left upper arm 22g is intact. Patient is on heart monitor at [address]. Bed is in lowest position. Call light is within easy reach. Will continue to monitor.
[2018-12-28] MEDS: Lisinopril 10mg tab ORAL SCH (08:36)
[2018-12-28] MEDS: Heparin 5000 units/ml inj SUBQ SCH ×2 (08:53→20:42)
[2018-12-28] MEDS: Theophylline ER 100mg ORAL SCH ×2 (09:00→20:40)
[2018-12-28] MEDS: Budesonide HHN 0.25mg/2ml ud HHN SCH ×2 (09:24→21:22)
--- NOTE | 2018-12-28 09:32 | NUR ---
RADIOLOGY DEPT CHEST X-RAY DONE.-P.DYE
--- NOTE | 2018-12-28 11:57 | Diagnostic Imaging Report ---
Indication: Dyspnea Comparison: 12/21/2018 A single view chest radiograph was obtained. Findings: Mild increase in interstitial markings noted in the perihilar and basilar aspects of the lungs. Heart size is stable. The lungs are hyperexpanded. IMPRESSION: Slightly increasing interstitial markings bilaterally may be reflective developing mild interstitial edema or pneumonitis. Correlate clinically
[2018-12-28 12:00] VITALS: BP 123/69
--- NOTE | 2018-12-28 13:18 | NUR ---
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 99.4 HR 125 RR 20 B/P 123/69 RA 98% WBC 15.0 BUN 34 CR 1.4 CXR=Slightly increasing interstitial markings bilaterally may be reflective developing mild interstitial edema or pneumonitis. Correlate clinically IS: PREDNISONE PO PULMICORT HHN ALB HHN DOMINIK-DUR PO TELE STATUS
--- NOTE | 2018-12-28 13:28 | General Progress Note ---
Assessment/Plan Problem List: (1) Acute and chronic respiratory failure ICD Codes: J96.20 - Acute and chronic respiratory failure, unspecified whether with hypoxia or hypercapnia SNOMED: 31668058 (2) Chest pain ICD Codes: R07.9 - Chest pain, unspecified SNOMED: 74948996 Qualifiers: Qualified Codes: R07.9 - Chest pain, unspecified (3) HTN (hypertension) ICD Codes: I10 - Hypertension SNOMED: 95773426 (4) COPD exacerbation ICD Codes: J44.1 - Obstructive chronic bronchitis with exacerbation SNOMED: 095638364 (5) Acute CHF (congestive heart failure) ICD Codes: I50.9 - Heart failure, unspecified SNOMED: 92547451 Qualifiers: Qualified Codes: I50.9 - Heart failure, unspecified Status: unchanged Assessment/Plan o2 pulmt x pt diet cbc bmp am dc plan snf Subjective Constitutional: Reports: weakness Respiratory: Reports: shortness of breath Allergies: Coded Allergies: EGG (Verified Allergy, Unknown, 09/28/18) MEPERIDINE (Verified Allergy, Unknown, 09/28/18) MORPHINE (Verified Allergy, Unknown, 09/28/18) NITROGLYCERIN (Verified Allergy, Unknown, hives, 09/28/18) All Systems: reviewed and negative except above Subjective pulm tx calm in bed Objective Last 24 Hour Vital Signs Date Time Temp Pulse Resp B/P (MAP) Pulse Ox O2 Delivery O2 Flow Rate FiO2 12/28/18 12:44 21 12/28/18 12:44 109 20 97 Room Air 12/28/18 12:40 109 20 92 Room Air 12/28/18 12:13 99.4 12/28/18 12:00 99.4 125 20 123/69 (87) 95 12/28/18 09:26 106 20 97 Room Air 12/28/18 09:25 21 12/28/18 09:24 106 20 94 Room Air 12/28/18 09:00 Nasal Cannula 2.0 12/28/18 08:36 129/77 12/28/18 08:35 109 129/77 12/28/18 07:35 110 12/28/18 07:29 109 20 96 Room Air 21 12/28/18 07:24 92 Room Air 21 12/28/18 07:24 109 20 Room Air 21 12/28/18 07:24 Room Air 21 12/28/18 07:24 109 20 92 Room Air 21 12/28/18 07:24 21 12/28/18 04:19 99 12/28/18 04:00 98.6 101 18 129/77 (94) 95 12/28/18 00:00 98.2 91 20 113/61 (78) 99 12/27/18 23:57 108 12/27/18 22:37 Room Air 21 12/27/18 22:36 95 Room Air 21 12/27/18 22:34 108 20 Room Air 21 12/27/18 22:05 108 20 94 Room Air 21 12/27/18 21:00 Nasal Cannula 2.0 12/27/18 20:00 98.7 90 20 106/56 (73) 98 12/27/18 19:46 106 12/27/18 19:00 108 20 95 Room Air 12/27/18 17:56 122 20 98 Nasal Cannula 2.0 28 12/27/18 17:50 116 20 95 Room Air 12/27/18 16:28 97.9 120 18 105/69 (81) 95 12/27/18 15:44 111 Intake and Output 12/27/18 12/28/18 18:59 06:59 Intake Total 920 ml 360 ml Output Total 500 ml Balance 920 ml -140 ml Intake Oral 920 ml 360 ml Output Urine Total 500 ml # Voids 2 3 Laboratory Tests 12/28/18 06:10: White Blood Count 15.0H, Red Blood Count 4.26L, Hemoglobin 10.9L, Hematocrit 35.7L, Mean Corpuscular Volume 84, Mean Corpuscular Hemoglobin 25.6L, Mean Corpuscular Hemoglobin Concent 30.6L, Red Cell Distribution Width 16.8H, Platelet Count 266, Mean Platelet Volume 5.9L, Neutrophils (%) (Auto) 73.9, Lymphocytes (%) (Auto) 9.3L, Monocytes (%) (Auto) 10.9H, Eosinophils (%) (Auto) 4.9H, Basophils (%) (Auto) 1.1, Sodium Level 140, Potassium Level 4.7, Chloride Level 107, Carbon Dioxide Level 24, Anion Gap 9, Blood Urea Nitrogen 34H, Creatinine 1.4H, Estimat Glomerular Filtration Rate > 60, Glucose Level 95, Calcium Level 8.7 Height (Feet): 6 Height (Inches): 1.00 Weight (Pounds): 130 General Appearance: lethargic EENT: normal ENT inspection Neck: normal alignment Cardiovascular: normal peripheral pulses, normal rate, regular rhythm Respiratory/Chest: chest wall non-tender, decreased breath sounds Abdomen: normal bowel sounds, non tender, soft Extremities: normal inspection Edema: no edema noted Arm (L), no edema noted Arm (R), no edema noted Leg (L), no edema noted Leg (R), no edema noted Pedal (L), no edema noted Pedal (R), no edema noted Generalized Neurologic: responsive, motor weakness Skin: normal pigmentation, warm/dry Fabio Tracey DO Dec 28, 2018 13:28
--- NOTE | 2018-12-28 13:45 | NUR ---
*-* DISCHARGE PLANNING *-* PATIENT HAS BEEN REFERRED TO: [facility] P:[phone] F:[phone] [facility] P:[phone] F:[phone] [facility]. [facility] P:[phone] F:[phone]
--- NOTE | 2018-12-28 14:15 | Pulmonology Progress Note ---
Assessment/Plan Problems: (1) COPD exacerbation (2) Acute bronchitis (3) Hypothyroidism (4) CAD (coronary artery disease) (5) Severe protein-calorie malnutrition (6) Chronic ulcer of right leg Assessment/Plan doing better taper steroids renal f/u respiratory treatment wound care check sputum, still pending continue antibiotics Subjective ROS Limited/Unobtainable: No Constitutional: Reports: no symptoms HEENT: Repors: no symptoms Allergies: Coded Allergies: EGG (Verified Allergy, Unknown, 09/28/18) MEPERIDINE (Verified Allergy, Unknown, 09/28/18) MORPHINE (Verified Allergy, Unknown, 09/28/18) NITROGLYCERIN (Verified Allergy, Unknown, hives, 09/28/18) Objective Last 24 Hour Vital Signs Date Time Temp Pulse Resp B/P (MAP) Pulse Ox O2 Delivery O2 Flow Rate FiO2 12/28/18 12:44 21 12/28/18 12:44 109 20 97 Room Air 21 12/28/18 12:40 109 20 92 Room Air 12/28/18 12:13 99.4 12/28/18 12:00 99.4 125 20 123/69 (87) 95 12/28/18 09:26 106 20 97 Room Air 12/28/18 09:25 21 12/28/18 09:24 106 20 94 Room Air 12/28/18 09:00 Nasal Cannula 2.0 12/28/18 08:36 129/77 12/28/18 08:35 109 129/77 12/28/18 07:35 110 12/28/18 07:29 109 20 96 Room Air 12/28/18 07:24 92 Room Air 21 12/28/18 07:24 109 20 Room Air 21 12/28/18 07:24 Room Air 21 12/28/18 07:24 109 20 92 Room Air 21 12/28/18 07:24 21 12/28/18 04:19 99 12/28/18 04:00 98.6 101 18 129/77 (94) 95 12/28/18 00:00 98.2 91 20 113/61 (78) 99 12/27/18 23:57 108 12/27/18 22:37 Room Air 12/27/18 22:36 95 Room Air 21 12/27/18 22:34 108 20 Room Air 12/27/18 22:05 108 20 94 Room Air 21 12/27/18 21:00 Nasal Cannula 2.0 12/27/18 20:00 98.7 90 20 106/56 (73) 98 12/27/18 19:46 106 12/27/18 19:00 108 20 95 Room Air 21 12/27/18 17:56 122 20 98 Nasal Cannula 2.0 28 12/27/18 17:50 116 20 95 Room Air 21 12/27/18 16:28 97.9 120 18 105/69 (81) 95 12/27/18 15:44 111 Intake and Output 12/27/18 12/28/18 18:59 06:59 Intake Total 920 ml 360 ml Output Total 500 ml Balance 920 ml -140 ml Intake Oral 920 ml 360 ml Output Urine Total 500 ml # Voids 2 3 General Appearance: cachetic HEENT: normocephalic, atraumatic Respiratory/Chest: chest wall non-tender, lungs clear Cardiovascular: normal peripheral pulses, normal rate Abdomen: normal bowel sounds, soft, non tender Genitourinary: normal external genitalia Extremities: no cyanosis Skin: no rash 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 Laboratory Tests 12/28/18 06:10: White Blood Count 15.0H, Red Blood Count 4.26L, Hemoglobin 10.9L, Hematocrit 35.7L, Mean Corpuscular Volume 84, Mean Corpuscular Hemoglobin 25.6L, Mean Corpuscular Hemoglobin Concent 30.6L, Red Cell Distribution Width 16.8H, Platelet Count 266, Mean Platelet Volume 5.9L, Neutrophils (%) (Auto) 73.9, Lymphocytes (%) (Auto) 9.3L, Monocytes (%) (Auto) 10.9H, Eosinophils (%) (Auto) 4.9H, Basophils (%) (Auto) 1.1, Sodium Level 140, Potassium Level 4.7, Chloride Level 107, Carbon Dioxide Level 24, Anion Gap 9, Blood Urea Nitrogen 34H, Creatinine 1.4H, Estimat Glomerular Filtration Rate > 60, Glucose Level 95, Calcium Level 8.7 Current Medications Medications (Trade) Dose Ordered Sig/Aminata Route PRN Reason Start Time Stop Time Status Last Admin Dose Admin Acetylcysteine (Mucomyst) 100 mg TIDRT HHN 12/27/18 13:00 01/26/19 12:59 12/28/18 12:43 Albuterol/ Ipratropium (Albuterol/ Ipratropium) 3 ml Q4H PRN HHN Shortness of Breath 12/27/18 09:00 01/01/19 08:59 12/28/18 12:43 Amlodipine Besylate (Norvasc) 10 mg DAILY ORAL 12/22/18 09:00 01/21/19 08:59 12/28/18 08:35 Budesonide (Pulmicort) 0.25 mg EVERY 12 HOURS HHN 12/27/18 21:00 01/26/19 20:59 12/28/18 09:24 Clopidogrel Bisulfate (Plavix) 75 mg DAILY ORAL 12/22/18 09:00 01/21/19 08:59 12/28/18 08:36 Dextrose (Dextrose 50%) 25 ml Q30M PRN IV Hypoglycemia 12/22/18 07:30 01/21/19 07:29 Dextrose (Dextrose 50%) 50 ml Q30M PRN IV Hypoglycemia 12/22/18 07:30 01/21/19 07:29 Heparin Sodium (Porcine) (Heparin 5000 units/ml) 5,000 units EVERY 12 HOURS SUBQ 12/22/18 09:00 01/21/19 08:59 12/26/18 08:29 Hydromorphone HCl (Dilaudid) 3 mg Q3H PRN IV Severe Pain (Pain Scale 7-10) 12/25/18 12:45 12/29/18 12:44 12/28/18 11:43 Levetiracetam (Keppra) 250 mg Q12HR ORAL 12/22/18 09:00 01/21/19 08:59 12/28/18 08:35 Lisinopril (Zestril) 10 mg DAILY ORAL 12/26/18 09:00 01/25/19 08:59 12/28/18 08:36 Lorazepam (Ativan 2mg/ml 1ml) 0.5 mg Q4H PRN IV For Anxiety 12/22/18 07:30 12/29/18 07:29 Mirtazapine (Remeron) 30 mg BEDTIME ORAL 12/24/18 21:00 01/23/19 20:59 12/27/18 20:54 Ondansetron HCl (Zofran) 4 mg Q6H PRN IVP Nausea & Vomiting 12/22/18 07:30 01/21/19 07:29 Prednisone (predniSONE) 20 mg Taper DAILY ORAL 12/28/18 09:00 12/31/18 08:59 12/28/18 08:35 Promethazine HCl/ Codeine (Phenergan with Codeine) 5 ml Q6H PRN ORAL For Cough 12/22/18 07:30 01/21/19 07:29 12/25/18 02:49 Temazepam (Restoril) 15 mg HSPRN PRN ORAL Insomnia 12/22/18 21:00 12/29/18 20:59 Theophylline (Wilfrido-Dur) 100 mg EVERY 12 HOURS ORAL 12/22/18 09:00 01/21/19 08:59 12/27/18 08:11 Jessie Magana MD Dec 28, 2018 14:15
[2018-12-28] MEDS ORDERED: THEOPHYLLINE A100 MG ORAL (14:18)
[2018-12-28] MEDS ORDERED: dilaudid (14:18)
--- NOTE | 2018-12-28 14:27 | NUR ---
*-* DISCHARGE PLANNING *-* PATIENT HAS ALSO BEEN REFERRED TO: [facility] P:[phone] F:[phone]
[2018-12-28 16:00] VITALS: BP 98/62
--- NOTE | 2018-12-28 17:54 | Cardiology Progress Note ---
Assessment/Plan Assessment/Plan 1. Chronic recurrent chest pain. 2. Visible foreign body in the left sternal area consistent with sternal wires. 3. Coronary artery disease, status post coronary artery bypass grafting and prior PCI. 4. COPD. 5. Chronic pain. 6. Osteomyelitis of lower extremity. 7. Tachycardia was not able to see cts at [facility] he says they did not answer their phone!! chest wall is ternder hhn q4 hour prn tachycardic may be related to hhn rosie level not sig i ordered venous euplex but he refused snf soon Subjective Cardiovascular: Denies: chest pain, lightheadedness Respiratory: Reports: shortness of breath - but better Gastrointestinal/Abdominal: Denies: abdominal pain Genitourinary: Denies: burning Objective Last 24 Hour Vital Signs Date Time Temp Pulse Resp B/P (MAP) Pulse Ox O2 Delivery O2 Flow Rate FiO2 12/28/18 16:02 98.4 12/28/18 16:00 98.4 122 20 98/62 (74) 93 12/28/18 12:44 21 12/28/18 12:44 109 20 97 Room Air 21 12/28/18 12:40 109 20 92 Room Air 12/28/18 12:00 99.4 125 20 123/69 (87) 95 12/28/18 11:28 121 12/28/18 09:26 106 20 97 Room Air 21 12/28/18 09:25 21 12/28/18 09:24 106 20 94 Room Air 21 12/28/18 09:00 Nasal Cannula 2.0 12/28/18 08:36 129/77 12/28/18 08:35 109 129/77 12/28/18 07:35 110 12/28/18 07:29 109 20 96 Room Air 21 12/28/18 07:24 92 Room Air 21 12/28/18 07:24 109 20 Room Air 21 12/28/18 07:24 Room Air 21 12/28/18 07:24 109 20 92 Room Air 21 12/28/18 07:24 21 12/28/18 04:19 99 12/28/18 04:00 98.6 101 18 129/77 (94) 95 12/28/18 00:00 98.2 91 20 113/61 (78) 99 12/27/18 23:57 108 12/27/18 22:37 Room Air 21 12/27/18 22:36 95 Room Air 21 12/27/18 22:34 108 20 Room Air 21 12/27/18 22:05 108 20 94 Room Air 21 12/27/18 21:00 Nasal Cannula 2.0 12/27/18 20:00 98.7 90 20 106/56 (73) 98 12/27/18 19:46 106 12/27/18 19:00 108 20 95 Room Air 21 12/27/18 17:56 122 20 98 Nasal Cannula 2.0 28 General Appearance: no apparent distress, alert - feels better he says Neck: supple, no JVD Cardiovascular: normal rate, tachycardia - mild Respiratory/Chest: decreased breath sounds Abdomen: normal bowel sounds, non tender, soft Extremities: no swelling Intake and Output 12/27/18 12/28/18 18:59 06:59 Intake Total 920 ml 360 ml Output Total 500 ml Balance 920 ml -140 ml Intake Oral 920 ml 360 ml Output Urine Total 500 ml # Voids 2 3 Laboratory Tests Test 12/28/18 06:10 White Blood Count 15.0 K/UL (4.8-10.8) H Red Blood Count 4.26 M/UL (4.70-6.10) L Hemoglobin 10.9 G/DL (14.2-18.0) L Hematocrit 35.7 % (42.0-52.0) L Mean Corpuscular Volume 84 FL (80-99) Mean Corpuscular Hemoglobin 25.6 PG (27.0-31.0) L Mean Corpuscular Hemoglobin Concent 30.6 G/DL (32.0-36.0) L Red Cell Distribution Width 16.8 % (11.6-14.8) H Platelet Count 266 K/UL (150-450) Mean Platelet Volume 5.9 FL (6.5-10.1) L Neutrophils (%) (Auto) 73.9 % (45.0-75.0) Lymphocytes (%) (Auto) 9.3 % (20.0-45.0) L Monocytes (%) (Auto) 10.9 % (1.0-10.0) H Eosinophils (%) (Auto) 4.9 % (0.0-3.0) H Basophils (%) (Auto) 1.1 % (0.0-2.0) Sodium Level 140 MMOL/L (136-145) Potassium Level 4.7 MMOL/L (3.5-5.1) Chloride Level 107 MMOL/L (98-107) Carbon Dioxide Level 24 MMOL/L (21-32) Anion Gap 9 mmol/L (5-15) Blood Urea Nitrogen 34 mg/dL (7-18) H Creatinine 1.4 MG/DL (0.55-1.30) H Estimat Glomerular Filtration Rate > 60 mL/min (>60) Glucose Level 95 MG/DL (74-106) Calcium Level 8.7 MG/DL (8.5-10.1) Sergio Anaya MD Dec 28, 2018 17:54
--- NOTE | 2018-12-28 18:41 | NUR ---
RESPIRATORY NOTE: pt refusing his breathing tx at the moment. will notify RN and try again later. meds have not been scanned on [facility].
--- NOTE | 2018-12-28 18:54 | Nephrology Progress Note ---
Assessment/Plan Assessment 1. Acute renal failure improving 2. Chronic kidney disease. 3. Hyperkalemia stable 4. COPD exacerbation. 5. Chest pain. 6. Cardiovascular disease. Plan plan low k diet monitoring renal function avoid NSAID replace electrolyte as need it Subjective Subjective alert and awake c/o cough Objective Objective Last 24 Hour Vital Signs Date Time Temp Pulse Resp B/P (MAP) Pulse Ox O2 Delivery O2 Flow Rate FiO2 12/28/18 16:02 98.4 12/28/18 16:00 98.4 122 20 98/62 (74) 93 12/28/18 12:44 21 12/28/18 12:44 109 20 97 Room Air 21 12/28/18 12:40 109 20 92 Room Air 21 12/28/18 12:00 99.4 125 20 123/69 (87) 95 12/28/18 11:28 121 12/28/18 09:26 106 20 97 Room Air 21 12/28/18 09:25 21 12/28/18 09:24 106 20 94 Room Air 12/28/18 09:00 Nasal Cannula 2.0 12/28/18 08:36 129/77 12/28/18 08:35 109 129/77 12/28/18 07:35 110 12/28/18 07:29 109 20 96 Room Air 12/28/18 07:24 92 Room Air 21 12/28/18 07:24 109 20 Room Air 21 12/28/18 07:24 Room Air 21 12/28/18 07:24 109 20 92 Room Air 12/28/18 07:24 21 12/28/18 04:19 99 12/28/18 04:00 98.6 101 18 129/77 (94) 95 12/28/18 00:00 98.2 91 20 113/61 (78) 99 12/27/18 23:57 108 12/27/18 22:37 Room Air 21 12/27/18 22:36 95 Room Air 21 12/27/18 22:34 108 20 Room Air 21 12/27/18 22:05 108 20 94 Room Air 21 12/27/18 21:00 Nasal Cannula 2.0 12/27/18 20:00 98.7 90 20 106/56 (73) 98 12/27/18 19:46 106 12/27/18 19:00 108 20 95 Room Air 21 Intake and Output 12/27/18 12/28/18 19:00 07:00 Intake Total 920 ml 360 ml Output Total 500 ml Balance 920 ml -140 ml Intake Oral 920 ml 360 ml Output Urine Total 500 ml # Voids 2 3 Laboratory Tests 12/28/18 06:10: White Blood Count 15.0H, Red Blood Count 4.26L, Hemoglobin 10.9L, Hematocrit 35.7L, Mean Corpuscular Volume 84, Mean Corpuscular Hemoglobin 25.6L, Mean Corpuscular Hemoglobin Concent 30.6L, Red Cell Distribution Width 16.8H, Platelet Count 266, Mean Platelet Volume 5.9L, Neutrophils (%) (Auto) 73.9, Lymphocytes (%) (Auto) 9.3L, Monocytes (%) (Auto) 10.9H, Eosinophils (%) (Auto) 4.9H, Basophils (%) (Auto) 1.1, Sodium Level 140, Potassium Level 4.7, Chloride Level 107, Carbon Dioxide Level 24, Anion Gap 9, Blood Urea Nitrogen 34H, Creatinine 1.4H, Estimat Glomerular Filtration Rate > 60, Glucose Level 95, Calcium Level 8.7 Height (Feet): 6 Height (Inches): 1.00 Weight (Pounds): 130 Objective HEAD AND NECK: No JVP. No LAD. Bitemporal wasting. Extraocular movement intact. Pupils are reactive to light and accommodation. LUNGS: Bilateral wheezing. CARDIAC: Regular rate and rhythm. S1, S2. No murmur. No rub. ABDOMEN: Soft, nontender, and nondistended. EXTREMITIES: Right heel ulceration, which is on dressing. No edema. No clubbing. Enriqueta Briones MD Dec 28, 2018 18:54
--- NOTE | 2018-12-28 19:57 | NUR ---
HAND-OFF: Report given to CHRISTOPHER Peterson.
[2018-12-28 20:00] VITALS: BP 85/55
--- NOTE | 2018-12-28 20:00 | NUR ---
NURSE NOTES: Received report from CHRISTOPHER Greenwood. Patient awake, alert and verbally responsive. No SOB, no acute distress, denies any pain nor any discomfort at this time. IV site on L upper arm #22, patent and intact. Bed at lowest position, call light within reach. Patient with discharged order to SNF, will be discharged tomorrow. Will continue plan of care.
--- NOTE | 2018-12-28 20:29 | General Progress Note ---
Assessment/Plan Problem List: (1) MDD (major depressive disorder), recurrent episode ICD Codes: F33.9 - Major depressive disorder, recurrent, unspecified SNOMED: 906832495 Status: stable, progressing Assessment/Plan remeron 30mg po qhs provided ro/st Subjective 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: Reports: anxiety, depressed, emotional problems Allergies: Coded Allergies: EGG (Verified Allergy, Unknown, 09/28/18) MEPERIDINE (Verified Allergy, Unknown, 09/28/18) MORPHINE (Verified Allergy, Unknown, 09/28/18) NITROGLYCERIN (Verified Allergy, Unknown, hives, 09/28/18) Objective Last 24 Hour Vital Signs Date Time Temp Pulse Resp B/P (MAP) Pulse Ox O2 Delivery O2 Flow Rate FiO2 12/28/18 20:08 Room Air 12/28/18 20:08 Room Air 12/28/18 19:06 98.4 12/28/18 16:00 98.4 122 20 98/62 (74) 93 12/28/18 12:44 21 12/28/18 12:44 109 20 97 Room Air 12/28/18 12:40 109 20 92 Room Air 12/28/18 12:00 99.4 125 20 123/69 (87) 95 12/28/18 11:28 121 12/28/18 09:26 106 20 97 Room Air 12/28/18 09:25 21 12/28/18 09:24 106 20 94 Room Air 12/28/18 09:00 Nasal Cannula 2.0 12/28/18 08:36 129/77 12/28/18 08:35 109 129/77 12/28/18 07:35 110 12/28/18 07:29 109 20 96 Room Air 21 12/28/18 07:24 92 Room Air 21 12/28/18 07:24 109 20 Room Air 12/28/18 07:24 Room Air 21 12/28/18 07:24 109 20 92 Room Air 12/28/18 07:24 21 12/28/18 04:19 99 12/28/18 04:00 98.6 101 18 129/77 (94) 95 12/28/18 00:00 98.2 91 20 113/61 (78) 99 12/27/18 23:57 108 2/3/19 22:37 Room Air 21 12/27/18 22:36 95 Room Air 21 12/27/18 22:34 108 20 Room Air 21 12/27/18 22:05 108 20 94 Room Air 21 12/27/18 21:00 Nasal Cannula 2.0 Intake and Output 12/27/18 12/28/18 19:00 07:00 Intake Total 920 ml 360 ml Output Total 500 ml Balance 920 ml -140 ml Intake Oral 920 ml 360 ml Output Urine Total 500 ml # Voids 2 3 Laboratory Tests 12/28/18 06:10: White Blood Count 15.0H, Red Blood Count 4.26L, Hemoglobin 10.9L, Hematocrit 35.7L, Mean Corpuscular Volume 84, Mean Corpuscular Hemoglobin 25.6L, Mean Corpuscular Hemoglobin Concent 30.6L, Red Cell Distribution Width 16.8H, Platelet Count 266, Mean Platelet Volume 5.9L, Neutrophils (%) (Auto) 73.9, Lymphocytes (%) (Auto) 9.3L, Monocytes (%) (Auto) 10.9H, Eosinophils (%) (Auto) 4.9H, Basophils (%) (Auto) 1.1, Sodium Level 140, Potassium Level 4.7, Chloride Level 107, Carbon Dioxide Level 24, Anion Gap 9, Blood Urea Nitrogen 34H, Creatinine 1.4H, Estimat Glomerular Filtration Rate > 60, Glucose Level 95, Calcium Level 8.7 Height (Feet): 6 Height (Inches): 1.00 Weight (Pounds): 130 General Appearance: no apparent distress, alert Neurologic: oriented x 3, responsive, depressed affect Rachael Buckley MD Dec 28, 2018 20:29
--- NOTE | 2018-12-28 22:33 | NUR ---
RESPIRATORY NOTE: was able to give pulmicort breathing tx and stated "this is the last one", "i will call if i want a breathing tx". will relay message to next RT and wait until called.
[2018-12-29] VITALS: BP 147/70
--- NOTE | 2018-12-29 03:06 | NUR ---
NURSE NOTES: Patient asleep, breathing even and unlabored, no s/sx of pain nor any discomfort at this time. Will continue to monitor.
[2018-12-29 04:00] VITALS: BP 141/85
--- NOTE | 2018-12-29 07:12 | NUR ---
HAND-OFF: Report given to CHRISTOPHER Greenwood. Endorsed plan of care.
--- NOTE | 2018-12-29 07:20 | NUR ---
NURSE NOTES: Report received from CHRISTOPHER Peterson. Patient is awake in bed eating breakfast. Patient is on oxygen 2L/min via [place]. IV site to left upper arm 22g is intact. Patient is on heart monitor at [address]. Bed is in lowest position, x 2 siderails up. Call light is within easy reach. Will continue to monitor.
[2018-12-29 07:53] LABS: ANION GAP 9 mmol/L (5-15); BASOPHILS % (AUTO) 1.2 % (0.0-2.0); BLOOD UREA NITROGEN 27 mg/dL (7-18); CALCIUM 8.1 MG/DL (8.5-10.1); CARBON DIOXIDE 25 MMOL/L (21-32); CHLORIDE 108 MMOL/L (98-107); CREATININE 1.4 MG/DL (0.55-1.30); EOSINOPHILS % (AUTO) 5.6 % (0.0-3.0); HEMATOCRIT 35.8 % (42.0-52.0); HEMOGLOBIN 11.1 G/DL (14.2-18.0); LYMPHOCYTES % (AUTO) 9.2 % (20.0-45.0); MEAN CORPUSCULAR VOLUME 83 FL (80-99); MONOCYTES % (AUTO) 14.8 % (1.0-10.0); NEUTROPHILS % (AUTO) 69.2 % (45.0-75.0); PLATELET COUNT 268 K/UL (150-450); POTASSIUM 4.6 MMOL/L (3.5-5.1); RED BLOOD COUNT 4.32 M/UL (4.70-6.10); RED CELL DISTRIBUTION WIDTH 17.1 % (11.6-14.8); SODIUM 142 MMOL/L (136-145); WHITE BLOOD COUNT 14.1 K/UL (4.8-10.8)
[2018-12-29 08:00] VITALS: BP 133/73
[2018-12-29] MEDS: Albuterol/Ipratropium 3ml neb HHN PRN ×3 (08:03→16:46)
--- NOTE | 2018-12-29 08:38 | Nephrology Progress Note ---
Assessment/Plan Assessment 1. Acute renal failure improving 2. Chronic kidney disease. 3. Hyperkalemia stable 4. COPD exacerbation. 5. Chest pain. 6. Cardiovascular disease. Plan plan low k diet monitoring renal function avoid NSAID replace electrolyte as need it Subjective Subjective alert and awake c/o cough Objective Objective Last 24 Hour Vital Signs Date Time Temp Pulse Resp B/P (MAP) Pulse Ox O2 Delivery O2 Flow Rate FiO2 12/29/18 08:13 102 20 97 Room Air 12/29/18 08:12 105 20 Room Air 12/29/18 08:11 Room Air 21 12/29/18 08:11 93 Room Air 12/29/18 08:02 105 20 93 Room Air 12/29/18 08:00 99.7 120 16 133/73 (93) 94 12/29/18 04:00 106 12/29/18 04:00 99.0 111 19 141/85 (103) 94 12/29/18 00:00 97.5 108 19 147/70 (95) 93 12/29/18 00:00 101 12/28/18 21:26 109 20 99 Room Air 12/28/18 21:22 97 Room Air 12/28/18 21:22 Room Air 12/28/18 21:22 21 12/28/18 21:22 108 20 Room Air 12/28/18 21:22 108 20 97 Room Air 12/28/18 21:00 Nasal Cannula 2.0 12/28/18 20:08 Room Air 12/28/18 20:08 Room Air 12/28/18 20:00 98.3 107 19 85/55 (65) 92 12/28/18 20:00 101 12/28/18 19:06 98.4 12/28/18 16:00 98.4 122 20 98/62 (74) 93 12/28/18 12:44 21 12/28/18 12:44 109 20 97 Room Air 12/28/18 12:40 109 20 92 Room Air 12/28/18 12:00 99.4 125 20 123/69 (87) 95 12/28/18 11:28 121 12/28/18 09:26 106 20 97 Room Air 12/28/18 09:25 21 12/28/18 09:24 106 20 94 Room Air 12/28/18 09:00 Nasal Cannula 2.0 Intake and Output 12/28/18 12/29/18 19:00 07:00 Intake Total 950 ml 360 ml Output Total 600 ml Balance 350 ml 360 ml Intake Oral 950 ml 360 ml Output Urine Total 600 ml Laboratory Tests 12/29/18 07:05: White Blood Count 14.1H, Red Blood Count 4.32L, Hemoglobin 11.1L, Hematocrit 35.8L, Mean Corpuscular Volume 83, Mean Corpuscular Hemoglobin 25.6L, Mean Corpuscular Hemoglobin Concent 30.9L, Red Cell Distribution Width 17.1H, Platelet Count 268, Mean Platelet Volume 6.5, Neutrophils (%) (Auto) 69.2, Lymphocytes (%) (Auto) 9.2L, Monocytes (%) (Auto) 14.8H, Eosinophils (%) (Auto) 5.6H, Basophils (%) (Auto) 1.2, Sodium Level 142, Potassium Level 4.6, Chloride Level 108H, Carbon Dioxide Level 25, Anion Gap 9, Blood Urea Nitrogen 27H, Creatinine 1.4H, Estimat Glomerular Filtration Rate > 60, Glucose Level 90, Calcium Level 8.1L Height (Feet): 6 Height (Inches): 1.00 Weight (Pounds): 130 Objective HEAD AND NECK: No JVP. No LAD. Bitemporal wasting. Extraocular movement intact. Pupils are reactive to light and accommodation. LUNGS: Bilateral wheezing. CARDIAC: Regular rate and rhythm. S1, S2. No murmur. No rub. ABDOMEN: Soft, nontender, and nondistended. EXTREMITIES: Right heel ulceration, which is on dressing. No edema. No clubbing. Enriqueta Briones MD Dec 29, 2018 08:38
[2018-12-29] MEDS: Theophylline ER 100mg ORAL SCH (08:42)
[2018-12-29] MEDS: Lisinopril 10mg tab ORAL SCH (08:42)
[2018-12-29] MEDS: Heparin 5000 units/ml inj SUBQ SCH ×2 (08:43→20:48)
--- NOTE | 2018-12-29 09:45 | NUR ---
Social Service Note ASHLEE followed up with Kenn at [facility] [phone] regarding acceptance. Kenn received referral and it is currently under review with the business office. Kenn will contact ASHLEE with an answer today. ASHLEE met with patient who is in agreement with placement at [facility]. Will monitor and follow up.
[2018-12-29] MEDS: Budesonide HHN 0.25mg/2ml ud HHN SCH ×2 (09:50→20:32)
--- NOTE | 2018-12-29 11:43 | Pulmonology Progress Note ---
Assessment/Plan Problems: (1) COPD exacerbation (2) Acute bronchitis (3) Hypothyroidism (4) CAD (coronary artery disease) (5) Severe protein-calorie malnutrition (6) Chronic ulcer of right leg Assessment/Plan doing better renal f/u respiratory treatment wound care check sputum, still pending continue antibiotics dc planning Subjective ROS Limited/Unobtainable: No Constitutional: Reports: no symptoms HEENT: Repors: no symptoms Respiratory: Reports: no symptoms Allergies: Coded Allergies: EGG (Verified Allergy, Unknown, 09/28/18) MEPERIDINE (Verified Allergy, Unknown, 09/28/18) MORPHINE (Verified Allergy, Unknown, 09/28/18) NITROGLYCERIN (Verified Allergy, Unknown, hives, 09/28/18) Objective Last 24 Hour Vital Signs Date Time Temp Pulse Resp B/P (MAP) Pulse Ox O2 Delivery O2 Flow Rate FiO2 12/29/18 10:00 104 20 98 Room Air 12/29/18 09:50 104 20 96 Room Air 12/29/18 09:28 135 12/29/18 09:04 99.7 12/29/18 09:00 Nasal Cannula 2.0 12/29/18 08:42 133/73 12/29/18 08:42 102 133/73 12/29/18 08:13 102 20 97 Room Air 12/29/18 08:12 105 20 Room Air 12/29/18 08:11 Room Air 12/29/18 08:11 93 Room Air 12/29/18 08:02 105 20 93 Room Air 12/29/18 08:00 99.7 120 16 133/73 (93) 94 12/29/18 04:00 106 12/29/18 04:00 99.0 111 19 141/85 (103) 94 12/29/18 00:00 97.5 108 19 147/70 (95) 93 12/29/18 00:00 101 12/28/18 21:26 109 20 99 Room Air 12/28/18 21:22 97 Room Air 12/28/18 21:22 Room Air 12/28/18 21:22 21 12/28/18 21:22 108 20 Room Air 12/28/18 21:22 108 20 97 Room Air 12/28/18 21:00 Nasal Cannula 2.0 12/28/18 20:08 Room Air 21 12/28/18 20:08 Room Air 21 12/28/18 20:00 98.3 107 19 85/55 (65) 92 12/28/18 20:00 101 12/28/18 16:00 98.4 122 20 98/62 (74) 93 12/28/18 12:44 21 12/28/18 12:44 109 20 97 Room Air 21 12/28/18 12:40 109 20 92 Room Air 21 12/28/18 12:00 99.4 125 20 123/69 (87) 95 Intake and Output 12/28/18 12/29/18 19:00 07:00 Intake Total 950 ml 360 ml Output Total 600 ml Balance 350 ml 360 ml Intake Oral 950 ml 360 ml Output Urine Total 600 ml General Appearance: cachetic Respiratory/Chest: chest wall non-tender Cardiovascular: normal peripheral pulses, normal rate Abdomen: normal bowel sounds, soft, non tender Extremities: no cyanosis Skin: no rash 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 Lymphatic: no neck adenopathy Laboratory Tests 12/29/18 07:05: White Blood Count 14.1H, Red Blood Count 4.32L, Hemoglobin 11.1L, Hematocrit 35.8L, Mean Corpuscular Volume 83, Mean Corpuscular Hemoglobin 25.6L, Mean Corpuscular Hemoglobin Concent 30.9L, Red Cell Distribution Width 17.1H, Platelet Count 268, Mean Platelet Volume 6.5, Neutrophils (%) (Auto) 69.2, Lymphocytes (%) (Auto) 9.2L, Monocytes (%) (Auto) 14.8H, Eosinophils (%) (Auto) 5.6H, Basophils (%) (Auto) 1.2, Sodium Level 142, Potassium Level 4.6, Chloride Level 108H, Carbon Dioxide Level 25, Anion Gap 9, Blood Urea Nitrogen 27H, Creatinine 1.4H, Estimat Glomerular Filtration Rate > 60, Glucose Level 90, Calcium Level 8.1L Current Medications Medications (Trade) Dose Ordered Sig/Aminata Route PRN Reason Start Time Stop Time Status Last Admin Dose Admin Acetylcysteine (Mucomyst) 100 mg TIDRT HHN 12/27/18 13:00 01/26/19 12:59 12/29/18 08:02 Albuterol/ Ipratropium (Albuterol/ Ipratropium) 3 ml Q4H PRN HHN Shortness of Breath 12/27/18 09:00 01/01/19 08:59 12/29/18 08:03 Amlodipine Besylate (Norvasc) 10 mg DAILY ORAL 12/22/18 09:00 01/21/19 08:59 12/29/18 08:42 Budesonide (Pulmicort) 0.25 mg EVERY 12 HOURS HHN 12/27/18 21:00 01/26/19 20:59 12/29/18 09:50 Clopidogrel Bisulfate (Plavix) 75 mg DAILY ORAL 12/22/18 09:00 01/21/19 08:59 12/29/18 08:42 Dextrose (Dextrose 50%) 25 ml Q30M PRN IV Hypoglycemia 12/22/18 07:30 01/21/19 07:29 Dextrose (Dextrose 50%) 50 ml Q30M PRN IV Hypoglycemia 12/22/18 07:30 01/21/19 07:29 Heparin Sodium (Porcine) (Heparin 5000 units/ml) 5,000 units EVERY 12 HOURS SUBQ 12/22/18 09:00 01/21/19 08:59 12/28/18 20:42 Hydromorphone HCl (Dilaudid) 3 mg Q3H PRN IV Severe Pain (Pain Scale 7-10) 12/25/18 12:45 12/29/18 12:44 12/29/18 11:30 Levetiracetam (Keppra) 250 mg Q12HR ORAL 12/22/18 09:00 01/21/19 08:59 12/29/18 08:41 Lisinopril (Zestril) 10 mg DAILY ORAL 12/26/18 09:00 01/25/19 08:59 12/29/18 08:42 Mirtazapine (Remeron) 30 mg BEDTIME ORAL 12/24/18 21:00 01/23/19 20:59 12/28/18 20:40 Ondansetron HCl (Zofran) 4 mg Q6H PRN IVP Nausea & Vomiting 12/22/18 07:30 01/21/19 07:29 Prednisone (predniSONE) 10 mg Taper DAILY ORAL 12/28/18 09:00 12/31/18 08:59 12/29/18 08:43 Promethazine HCl/ Codeine (Phenergan with Codeine) 5 ml Q6H PRN ORAL For Cough 12/22/18 07:30 01/21/19 07:29 12/25/18 02:49 Temazepam (Restoril) 15 mg HSPRN PRN ORAL Insomnia 12/22/18 21:00 12/29/18 20:59 Theophylline (Wilfrido-Dur) 100 mg EVERY 12 HOURS ORAL 12/22/18 09:00 01/21/19 08:59 12/29/18 08:42 Jessie Magana MD Dec 29, 2018 11:43
[2018-12-29 12:00] VITALS: BP 129/67
--- NOTE | 2018-12-29 12:09 | General Progress Note ---
Assessment/Plan Problem List: (1) MDD (major depressive disorder), recurrent episode ICD Codes: F33.9 - Major depressive disorder, recurrent, unspecified SNOMED: 383923135 Status: stable, progressing Assessment/Plan remeron 30mg po qhs provided ro/st script was given to the pt with 5 refills Subjective 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: Reports: anxiety, depressed, emotional problems Allergies: Coded Allergies: EGG (Verified Allergy, Unknown, 09/28/18) MEPERIDINE (Verified Allergy, Unknown, 09/28/18) MORPHINE (Verified Allergy, Unknown, 09/28/18) NITROGLYCERIN (Verified Allergy, Unknown, hives, 09/28/18) Objective Last 24 Hour Vital Signs Date Time Temp Pulse Resp B/P (MAP) Pulse Ox O2 Delivery O2 Flow Rate FiO2 12/29/18 10:00 104 20 98 Room Air 12/29/18 09:50 104 20 96 Room Air 12/29/18 09:28 135 12/29/18 09:04 99.7 12/29/18 09:00 Nasal Cannula 2.0 12/29/18 08:42 133/73 12/29/18 08:42 102 133/73 12/29/18 08:13 102 20 97 Room Air 12/29/18 08:12 105 20 Room Air 12/29/18 08:11 Room Air 12/29/18 08:11 93 Room Air 12/29/18 08:02 105 20 93 Room Air 12/29/18 08:00 99.7 120 16 133/73 (93) 94 12/29/18 04:00 106 12/29/18 04:00 99.0 111 19 141/85 (103) 94 12/29/18 00:00 97.5 108 19 147/70 (95) 93 12/29/18 00:00 101 12/28/18 21:26 109 20 99 Room Air 12/28/18 21:22 97 Room Air 12/28/18 21:22 Room Air 12/28/18 21:22 21 12/28/18 21:22 108 20 Room Air 12/28/18 21:22 108 20 97 Room Air 12/28/18 21:00 Nasal Cannula 2.0 12/28/18 20:08 Room Air 12/28/18 20:08 Room Air 21 12/28/18 20:00 98.3 107 19 85/55 (65) 92 12/28/18 20:00 101 12/28/18 16:00 98.4 122 20 98/62 (74) 93 12/28/18 12:44 21 12/28/18 12:44 109 20 97 Room Air 21 12/28/18 12:40 109 20 92 Room Air 21 Intake and Output 12/28/18 12/29/18 19:00 07:00 Intake Total 950 ml 360 ml Output Total 600 ml Balance 350 ml 360 ml Intake Oral 950 ml 360 ml Output Urine Total 600 ml Laboratory Tests 12/29/18 07:05: White Blood Count 14.1H, Red Blood Count 4.32L, Hemoglobin 11.1L, Hematocrit 35.8L, Mean Corpuscular Volume 83, Mean Corpuscular Hemoglobin 25.6L, Mean Corpuscular Hemoglobin Concent 30.9L, Red Cell Distribution Width 17.1H, Platelet Count 268, Mean Platelet Volume 6.5, Neutrophils (%) (Auto) 69.2, Lymphocytes (%) (Auto) 9.2L, Monocytes (%) (Auto) 14.8H, Eosinophils (%) (Auto) 5.6H, Basophils (%) (Auto) 1.2, Sodium Level 142, Potassium Level 4.6, Chloride Level 108H, Carbon Dioxide Level 25, Anion Gap 9, Blood Urea Nitrogen 27H, Creatinine 1.4H, Estimat Glomerular Filtration Rate > 60, Glucose Level 90, Calcium Level 8.1L Height (Feet): 6 Height (Inches): 1.00 Weight (Pounds): 130 General Appearance: no apparent distress, alert, cachetic Neurologic: oriented x 3, responsive, depressed affect Rachael Buckley MD Dec 29, 2018 12:09
--- NOTE | 2018-12-29 12:24 | Cardiology Progress Note ---
Assessment/Plan Assessment/Plan 1. Chronic recurrent chest pain. 2. Visible foreign body in the left sternal area consistent with sternal wires. 3. Coronary artery disease, status post coronary artery bypass grafting and prior PCI. 4. COPD. 5. Chronic pain. 6. Osteomyelitis of lower extremity. 7. Tachycardia was not able to see cts at [facility] he says they did not answer their phone!! chest wall is ternder hhn q4 hour prn tachycardic may be related to hhn / rosie d/w dr kay can dc rosie i ordered venous euplex but he refused snf soon cts as out pt Subjective Cardiovascular: Reports: chest pain - chronic Respiratory: Reports: shortness of breath Gastrointestinal/Abdominal: Denies: abdominal pain Genitourinary: Denies: burning Objective Last 24 Hour Vital Signs Date Time Temp Pulse Resp B/P (MAP) Pulse Ox O2 Delivery O2 Flow Rate FiO2 12/29/18 10:00 104 20 98 Room Air 12/29/18 09:50 104 20 96 Room Air 12/29/18 09:28 135 12/29/18 09:04 99.7 12/29/18 09:00 Nasal Cannula 2.0 12/29/18 08:42 133/73 12/29/18 08:42 102 133/73 12/29/18 08:13 102 20 97 Room Air 12/29/18 08:12 105 20 Room Air 12/29/18 08:11 Room Air 12/29/18 08:11 93 Room Air 12/29/18 08:02 105 20 93 Room Air 12/29/18 08:00 99.7 120 16 133/73 (93) 94 12/29/18 04:00 106 12/29/18 04:00 99.0 111 19 141/85 (103) 94 12/29/18 00:00 97.5 108 19 147/70 (95) 93 12/29/18 00:00 101 12/28/18 21:26 109 20 99 Room Air 12/28/18 21:22 97 Room Air 12/28/18 21:22 Room Air 12/28/18 21:22 21 12/28/18 21:22 108 20 Room Air 12/28/18 21:22 108 20 97 Room Air 12/28/18 21:00 Nasal Cannula 2.0 2/4/19 20:08 Room Air 21 12/28/18 20:08 Room Air 21 12/28/18 20:00 98.3 107 19 85/55 (65) 92 12/28/18 20:00 101 12/28/18 16:00 98.4 122 20 98/62 (74) 93 12/28/18 12:44 21 12/28/18 12:44 109 20 97 Room Air 21 12/28/18 12:40 109 20 92 Room Air 21 General Appearance: no apparent distress, alert Neck: supple Cardiovascular: normal rate, tachycardia Respiratory/Chest: decreased breath sounds Abdomen: normal bowel sounds, non tender, soft Extremities: no swelling Intake and Output 12/28/18 12/29/18 19:00 07:00 Intake Total 950 ml 360 ml Output Total 600 ml Balance 350 ml 360 ml Intake Oral 950 ml 360 ml Output Urine Total 600 ml Laboratory Tests Test 12/29/18 07:05 White Blood Count 14.1 K/UL (4.8-10.8) H Red Blood Count 4.32 M/UL (4.70-6.10) L Hemoglobin 11.1 G/DL (14.2-18.0) L Hematocrit 35.8 % (42.0-52.0) L Mean Corpuscular Volume 83 FL (80-99) Mean Corpuscular Hemoglobin 25.6 PG (27.0-31.0) L Mean Corpuscular Hemoglobin Concent 30.9 G/DL (32.0-36.0) L Red Cell Distribution Width 17.1 % (11.6-14.8) H Platelet Count 268 K/UL (150-450) Mean Platelet Volume 6.5 FL (6.5-10.1) Neutrophils (%) (Auto) 69.2 % (45.0-75.0) Lymphocytes (%) (Auto) 9.2 % (20.0-45.0) L Monocytes (%) (Auto) 14.8 % (1.0-10.0) H Eosinophils (%) (Auto) 5.6 % (0.0-3.0) H Basophils (%) (Auto) 1.2 % (0.0-2.0) Sodium Level 142 MMOL/L (136-145) Potassium Level 4.6 MMOL/L (3.5-5.1) Chloride Level 108 MMOL/L (98-107) H Carbon Dioxide Level 25 MMOL/L (21-32) Anion Gap 9 mmol/L (5-15) Blood Urea Nitrogen 27 mg/dL (7-18) H Creatinine 1.4 MG/DL (0.55-1.30) H Estimat Glomerular Filtration Rate > 60 mL/min (>60) Glucose Level 90 MG/DL (74-106) Calcium Level 8.1 MG/DL (8.5-10.1) L Sergio Anaya MD Dec 29, 2018 12:24
--- NOTE | 2018-12-29 13:38 | General Progress Note ---
Assessment/Plan Problem List: (1) Acute and chronic respiratory failure ICD Codes: J96.20 - Acute and chronic respiratory failure, unspecified whether with hypoxia or hypercapnia SNOMED: 19047608 (2) Chest pain ICD Codes: R07.9 - Chest pain, unspecified SNOMED: 30087535 Qualifiers: Qualified Codes: R07.9 - Chest pain, unspecified (3) HTN (hypertension) ICD Codes: I10 - Hypertension SNOMED: 55723964 (4) COPD exacerbation ICD Codes: J44.1 - Obstructive chronic bronchitis with exacerbation SNOMED: 874075657 (5) Acute CHF (congestive heart failure) ICD Codes: I50.9 - Heart failure, unspecified SNOMED: 64724226 Qualifiers: Qualified Codes: I50.9 - Heart failure, unspecified Status: stable, progressing Assessment/Plan o2 pulmt x pt diet cbc bmp am dc to snf if clear Subjective Constitutional: Reports: weakness Respiratory: Reports: shortness of breath Allergies: Coded Allergies: EGG (Verified Allergy, Unknown, 09/28/18) MEPERIDINE (Verified Allergy, Unknown, 09/28/18) MORPHINE (Verified Allergy, Unknown, 09/28/18) NITROGLYCERIN (Verified Allergy, Unknown, hives, 09/28/18) All Systems: reviewed and negative except above Subjective calm in bed Objective Last 24 Hour Vital Signs Date Time Temp Pulse Resp B/P (MAP) Pulse Ox O2 Delivery O2 Flow Rate FiO2 12/29/18 13:07 113 22 93 Room Air 12/29/18 12:00 98.2 97 16 129/67 (87) 94 12/29/18 12:00 99.7 12/29/18 10:00 104 20 98 Room Air 12/29/18 09:50 104 20 96 Room Air 12/29/18 09:28 135 12/29/18 09:00 Nasal Cannula 2.0 12/29/18 08:42 133/73 12/29/18 08:42 102 133/73 12/29/18 08:13 102 20 97 Room Air 21 12/29/18 08:12 105 20 Room Air 21 12/29/18 08:11 Room Air 21 12/29/18 08:11 93 Room Air 21 12/29/18 08:02 105 20 93 Room Air 21 12/29/18 08:00 99.7 120 16 133/73 (93) 94 12/29/18 04:00 106 12/29/18 04:00 99.0 111 19 141/85 (103) 94 12/29/18 00:00 97.5 108 19 147/70 (95) 93 12/29/18 00:00 101 12/28/18 21:26 109 20 99 Room Air 21 12/28/18 21:22 97 Room Air 21 12/28/18 21:22 Room Air 21 12/28/18 21:22 21 12/28/18 21:22 108 20 Room Air 21 12/28/18 21:22 108 20 97 Room Air 21 12/28/18 21:00 Nasal Cannula 2.0 12/28/18 20:08 Room Air 12/28/18 20:08 Room Air 12/28/18 20:00 98.3 107 19 85/55 (65) 92 12/28/18 20:00 101 12/28/18 16:00 98.4 122 20 98/62 (74) 93 Intake and Output 12/28/18 12/29/18 19:00 07:00 Intake Total 950 ml 360 ml Output Total 600 ml Balance 350 ml 360 ml Intake Oral 950 ml 360 ml Output Urine Total 600 ml Laboratory Tests 12/29/18 07:05: White Blood Count 14.1H, Red Blood Count 4.32L, Hemoglobin 11.1L, Hematocrit 35.8L, Mean Corpuscular Volume 83, Mean Corpuscular Hemoglobin 25.6L, Mean Corpuscular Hemoglobin Concent 30.9L, Red Cell Distribution Width 17.1H, Platelet Count 268, Mean Platelet Volume 6.5, Neutrophils (%) (Auto) 69.2, Lymphocytes (%) (Auto) 9.2L, Monocytes (%) (Auto) 14.8H, Eosinophils (%) (Auto) 5.6H, Basophils (%) (Auto) 1.2, Sodium Level 142, Potassium Level 4.6, Chloride Level 108H, Carbon Dioxide Level 25, Anion Gap 9, Blood Urea Nitrogen 27H, Creatinine 1.4H, Estimat Glomerular Filtration Rate > 60, Glucose Level 90, Calcium Level 8.1L Height (Feet): 6 Height (Inches): 1.00 Weight (Pounds): 130 General Appearance: lethargic EENT: normal ENT inspection Neck: normal alignment Cardiovascular: normal peripheral pulses, normal rate, regular rhythm Respiratory/Chest: chest wall non-tender, lungs clear, normal breath sounds Abdomen: normal bowel sounds, non tender, soft Extremities: normal inspection Edema: no edema noted Arm (L), no edema noted Arm (R), no edema noted Leg (L), no edema noted Leg (R), no edema noted Pedal (L), no edema noted Pedal (R), no edema noted Generalized Neurologic: responsive, motor weakness Skin: normal pigmentation, warm/dry Fabio Tracey DO Dec 29, 2018 13:38
[2018-12-29 16:00] VITALS: BP 103/59
--- NOTE | 2018-12-29 19:08 | NUR ---
HAND-OFF: Report given to CHRISTOPHER Peterson. Endorse per SW placement still pending.
--- NOTE | 2018-12-29 19:10 | NUR ---
NURSE NOTES: Received report from CHRISTOPHER Greenwood. Patient awake, alert and verbally responsive. No SOB, no acute distress, denies any pain nor any discomfort at this time. IV site on L upper arm #22, patent and intact. Dressing changed on R lower leg wound per CHRISTOPHER Greenwood. Pending discharge for SNF placement. Will continue plan of care.
[2018-12-29 20:00] VITALS: BP 131/67
[2018-12-29] MEDS: Promethazine/Codeine 5ml UD ORAL PRN (21:00)
[2018-12-30] VITALS: BP 118/54
[2018-12-30 04:00] VITALS: BP 117/51
--- NOTE | 2018-12-30 04:15 | NUR ---
NURSE NOTES: Patient asleep, breathing even and unlabored, no s/sx of pain nor any discomfort at this time. Needs attended and will continue to monitor.
[2018-12-30 06:21] LABS: BASOPHILS % (AUTO) 1.3 % (0.0-2.0); EOSINOPHILS % (AUTO) 5.9 % (0.0-3.0); HEMATOCRIT 34.7 % (42.0-52.0); HEMOGLOBIN 10.7 G/DL (14.2-18.0); LYMPHOCYTES % (AUTO) 14.3 % (20.0-45.0); MEAN CORPUSCULAR VOLUME 83 FL (80-99); MONOCYTES % (AUTO) 15.1 % (1.0-10.0); NEUTROPHILS % (AUTO) 63.3 % (45.0-75.0); PLATELET COUNT 279 K/UL (150-450); RED BLOOD COUNT 4.16 M/UL (4.70-6.10); RED CELL DISTRIBUTION WIDTH 16.7 % (11.6-14.8); WHITE BLOOD COUNT 11.5 K/UL (4.8-10.8)
[2018-12-30 06:58] LABS: ANION GAP 7 mmol/L (5-15); BLOOD UREA NITROGEN 24 mg/dL (7-18); CALCIUM 8.4 MG/DL (8.5-10.1); CARBON DIOXIDE 27 MMOL/L (21-32); CHLORIDE 106 MMOL/L (98-107); CREATININE 1.4 MG/DL (0.55-1.30); POTASSIUM 5.1 MMOL/L (3.5-5.1); SODIUM 140 MMOL/L (136-145)
--- NOTE | 2018-12-30 07:21 | NUR ---
HAND-OFF: Report given to CHRISTOPHER Gutierrez. Endorsed plan of care.
[2018-12-30] MEDS: Albuterol/Ipratropium 3ml neb HHN PRN ×3 (07:54→20:29)
[2018-12-30 08:00] VITALS: BP 120/53
[2018-12-30] MEDS: Lisinopril 10mg tab ORAL SCH (08:12)
[2018-12-30] MEDS: Heparin 5000 units/ml inj SUBQ SCH ×3 (08:15→22:30)
[2018-12-30] MEDS: Budesonide HHN 0.25mg/2ml ud HHN SCH ×3 (08:44→22:30)
--- NOTE | 2018-12-30 09:30 | NUR ---
NURSE NOTES: pt awake alert, no distress. no sob. call light within reach. bed in lowest position, locked, pt no c/o pain
--- NOTE | 2018-12-30 10:18 | NUR ---
NURSE NOTES: relayed to Dr Anaya re sinus tachycardia per md no new order and ok to transfer to [facility]
--- NOTE | 2018-12-30 10:49 | Pulmonology Progress Note ---
Assessment/Plan Problems: (1) COPD exacerbation (2) Acute bronchitis (3) Hypothyroidism (4) CAD (coronary artery disease) (5) Severe protein-calorie malnutrition (6) Chronic ulcer of right leg Assessment/Plan no new complains renal f/u respiratory treatment wound care dc steroids continue antibiotics dc planning Subjective ROS Limited/Unobtainable: No Constitutional: Reports: no symptoms HEENT: Repors: no symptoms Respiratory: Reports: no symptoms Allergies: Coded Allergies: EGG (Verified Allergy, Unknown, 09/28/18) MEPERIDINE (Verified Allergy, Unknown, 09/28/18) MORPHINE (Verified Allergy, Unknown, 09/28/18) NITROGLYCERIN (Verified Allergy, Unknown, hives, 09/28/18) Objective Last 24 Hour Vital Signs Date Time Temp Pulse Resp B/P (MAP) Pulse Ox O2 Delivery O2 Flow Rate FiO2 12/30/18 08:54 120 20 99 Room Air 21 12/30/18 08:44 120 22 99 Room Air 12/30/18 08:13 120 120/53 12/30/18 08:12 120/53 12/30/18 08:04 92 20 99 Room Air 21 12/30/18 08:00 98.7 120 20 120/53 (75) 93 12/30/18 07:58 89 20 Room Air 12/30/18 07:55 97 Room Air 12/30/18 07:54 89 20 97 Room Air 12/30/18 07:54 Room Air 12/30/18 07:46 118 12/30/18 07:42 Room Air 12/30/18 07:24 98.7 12/30/18 04:00 98.7 103 20 117/51 (73) 93 12/30/18 04:00 102 12/30/18 00:00 98.7 114 19 118/54 (75) 91 12/29/18 21:00 Nasal Cannula 2.0 12/29/18 20:31 Room Air 21 12/29/18 20:31 122 22 92 Room Air 21 12/29/18 20:29 122 24 Room Air 21 12/29/18 20:29 Room Air 21 12/29/18 20:29 92 Room Air 21 12/29/18 20:28 Room Air 21 12/29/18 20:28 122 24 92 Room Air 21 12/29/18 20:00 98.0 122 19 131/67 (88) 93 12/29/18 20:00 122 12/29/18 16:46 112 20 91 Room Air 21 12/29/18 16:00 98.7 116 16 103/59 (74) 93 12/29/18 16:00 119 12/29/18 13:19 126 20 95 Room Air 21 12/29/18 13:07 113 22 93 Room Air 21 12/29/18 13:03 118 12/29/18 12:00 98.2 97 16 129/67 (87) 94 12/29/18 12:00 99.7 Intake and Output 12/29/18 12/30/18 19:00 07:00 Intake Total 360 ml 240 ml Balance 360 ml 240 ml Intake Oral 360 ml 240 ml # Voids 1 General Appearance: WD/WN HEENT: normocephalic, atraumatic Respiratory/Chest: chest wall non-tender, lungs clear Cardiovascular: normal peripheral pulses, normal rate Abdomen: normal bowel sounds, soft, non tender Genitourinary: normal external genitalia Extremities: no cyanosis Skin: no rash 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: tattoo identifier [id number] grossly normal Lymphatic: no neck adenopathy Laboratory Tests 12/30/18 05:00: White Blood Count 11.5H, Red Blood Count 4.16L, Hemoglobin 10.7L, Hematocrit 34.7L, Mean Corpuscular Volume 83, Mean Corpuscular Hemoglobin 25.8L, Mean Corpuscular Hemoglobin Concent 30.9L, Red Cell Distribution Width 16.7H, Platelet Count 279, Mean Platelet Volume 6.0L, Neutrophils (%) (Auto) 63.3, Lymphocytes (%) (Auto) 14.3L, Monocytes (%) (Auto) 15.1H, Eosinophils (%) (Auto ) 5.9H, Basophils (%) (Auto) 1.3, Sodium Level 140, Potassium Level 5.1, Chloride Level 106, Carbon Dioxide Level 27, Anion Gap 7, Blood Urea Nitrogen 24H, Creatinine 1.4H, Estimat Glomerular Filtration Rate > 60, Glucose Level 84 , Calcium Level 8.4L Current Medications Medications (Trade) Dose Ordered Sig/Aminata Route PRN Reason Start Time Stop Time Status Last Admin Dose Admin Acetylcysteine (Mucomyst) 100 mg TIDRT HHN 12/27/18 13:00 01/26/19 12:59 12/30/18 07:54 Albuterol/ Ipratropium (Albuterol/ Ipratropium) 3 ml Q4H PRN HHN Shortness of Breath 12/27/18 09:00 01/01/19 08:59 12/30/18 07:54 Amlodipine Besylate (Norvasc) 10 mg DAILY ORAL 12/22/18 09:00 01/21/19 08:59 12/30/18 08:13 Budesonide (Pulmicort) 0.25 mg EVERY 12 HOURS HHN 12/27/18 21:00 01/26/19 20:59 12/30/18 08:44 Clopidogrel Bisulfate (Plavix) 75 mg DAILY ORAL 12/22/18 09:00 01/21/19 08:59 12/30/18 08:10 Dextrose (Dextrose 50%) 25 ml Q30M PRN IV Hypoglycemia 12/22/18 07:30 01/21/19 07:29 Dextrose (Dextrose 50%) 50 ml Q30M PRN IV Hypoglycemia 12/22/18 07:30 01/21/19 07:29 Heparin Sodium (Porcine) (Heparin 5000 units/ml) 5,000 units EVERY 12 HOURS SUBQ 12/22/18 09:00 01/21/19 08:59 12/30/18 08:15 Hydromorphone HCl (Dilaudid) 3 mg Q3H PRN IVP Severe Pain (Pain Scale 7-10) 12/29/18 15:00 01/05/19 14:59 12/30/18 09:56 Levetiracetam (Keppra) 250 mg Q12HR ORAL 12/22/18 09:00 01/21/19 08:59 12/30/18 08:13 Lisinopril (Zestril) 10 mg DAILY ORAL 12/26/18 09:00 01/25/19 08:59 12/30/18 08:12 Mirtazapine (Remeron) 30 mg BEDTIME ORAL 12/24/18 21:00 01/23/19 20:59 12/29/18 20:48 Ondansetron HCl (Zofran) 4 mg Q6H PRN IVP Nausea & Vomiting 12/22/18 07:30 2/28/19 07:29 Prednisone (predniSONE) 5 mg ONCE ORAL 12/30/18 09:00 12/30/18 11:00 12/30/18 08:13 Promethazine HCl/ Codeine (Phenergan with Codeine) 5 ml Q6H PRN ORAL For Cough 12/22/18 07:30 01/21/19 07:29 12/29/18 21:00 Jessie Magana MD Dec 30, 2018 10:49
[2018-12-30 12:00] VITALS: BP 98/62
--- NOTE | 2018-12-30 12:58 | General Progress Note ---
Assessment/Plan Problem List: (1) MDD (major depressive disorder), recurrent episode ICD Codes: F33.9 - Major depressive disorder, recurrent, unspecified SNOMED: 306618290 Assessment/Plan remeron 30mg po qhs provided ro/st script was given to the pt with 5 refills Subjective Gastrointestinal/Abdominal: Reports: poor appetite 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: Reports: anxiety, depressed, emotional problems Allergies: Coded Allergies: EGG (Verified Allergy, Unknown, 09/28/18) MEPERIDINE (Verified Allergy, Unknown, 09/28/18) MORPHINE (Verified Allergy, Unknown, 09/28/18) NITROGLYCERIN (Verified Allergy, Unknown, hives, 09/28/18) Objective Last 24 Hour Vital Signs Date Time Temp Pulse Resp B/P (MAP) Pulse Ox O2 Delivery O2 Flow Rate FiO2 12/30/18 12:00 98.7 112 20 98/62 (74) 93 12/30/18 10:26 98.7 12/30/18 08:54 120 20 99 Room Air 21 12/30/18 08:44 120 22 99 Room Air 21 12/30/18 08:13 120 120/53 12/30/18 08:12 120/53 12/30/18 08:04 92 20 99 Room Air 21 12/30/18 08:00 98.7 120 20 120/53 (75) 93 12/30/18 07:58 89 20 Room Air 21 12/30/18 07:55 97 Room Air 21 12/30/18 07:54 89 20 97 Room Air 21 12/30/18 07:54 Room Air 12/30/18 07:46 118 12/30/18 07:42 Room Air 12/30/18 04:00 98.7 103 20 117/51 (73) 93 12/30/18 04:00 102 12/30/18 00:00 98.7 114 19 118/54 (75) 91 12/29/18 21:00 Nasal Cannula 2.0 12/29/18 20:31 Room Air 21 12/29/18 20:31 122 22 92 Room Air 21 12/29/18 20:29 122 24 Room Air 21 12/29/18 20:29 Room Air 21 12/29/18 20:29 92 Room Air 21 12/29/18 20:28 Room Air 21 12/29/18 20:28 122 24 92 Room Air 21 12/29/18 20:00 98.0 122 19 131/67 (88) 93 12/29/18 20:00 122 12/29/18 16:46 112 20 91 Room Air 21 12/29/18 16:00 98.7 116 16 103/59 (74) 93 12/29/18 16:00 119 12/29/18 13:19 126 20 95 Room Air 21 12/29/18 13:07 113 22 93 Room Air 21 12/29/18 13:03 118 Intake and Output 12/29/18 12/30/18 19:00 07:00 Intake Total 360 ml 240 ml Balance 360 ml 240 ml Intake Oral 360 ml 240 ml # Voids 1 Laboratory Tests 12/30/18 05:00: White Blood Count 11.5H, Red Blood Count 4.16L, Hemoglobin 10.7L, Hematocrit 34.7L, Mean Corpuscular Volume 83, Mean Corpuscular Hemoglobin 25.8L, Mean Corpuscular Hemoglobin Concent 30.9L, Red Cell Distribution Width 16.7H, Platelet Count 279, Mean Platelet Volume 6.0L, Neutrophils (%) (Auto) 63.3, Lymphocytes (%) (Auto) 14.3L, Monocytes (%) (Auto) 15.1H, Eosinophils (%) (Auto ) 5.9H, Basophils (%) (Auto) 1.3, Sodium Level 140, Potassium Level 5.1, Chloride Level 106, Carbon Dioxide Level 27, Anion Gap 7, Blood Urea Nitrogen 24H, Creatinine 1.4H, Estimat Glomerular Filtration Rate > 60, Glucose Level 84 , Calcium Level 8.4L Height (Feet): 6 Height (Inches): 1.00 Weight (Pounds): 130 General Appearance: no apparent distress, alert, cachetic Neurologic: oriented x 3, responsive, depressed affect Rachael Buckley MD Dec 30, 2018 12:58
[2018-12-30 16:32] VITALS: BP 107/59
--- NOTE | 2018-12-30 16:38 | General Progress Note ---
Assessment/Plan Problem List: (1) Acute and chronic respiratory failure ICD Codes: J96.20 - Acute and chronic respiratory failure, unspecified whether with hypoxia or hypercapnia SNOMED: 34839781 (2) Chest pain ICD Codes: R07.9 - Chest pain, unspecified SNOMED: 62220202 Qualifiers: Qualified Codes: R07.9 - Chest pain, unspecified (3) HTN (hypertension) ICD Codes: I10 - Hypertension SNOMED: 53088687 (4) COPD exacerbation ICD Codes: J44.1 - Obstructive chronic bronchitis with exacerbation SNOMED: 602768315 (5) Acute CHF (congestive heart failure) ICD Codes: I50.9 - Heart failure, unspecified SNOMED: 23287597 Qualifiers: Qualified Codes: I50.9 - Heart failure, unspecified Status: stable, progressing Assessment/Plan o2 pulmt x pt diet dc to snf if clear Subjective Constitutional: Reports: weakness Allergies: Coded Allergies: EGG (Verified Allergy, Unknown, 09/28/18) MEPERIDINE (Verified Allergy, Unknown, 09/28/18) MORPHINE (Verified Allergy, Unknown, 09/28/18) NITROGLYCERIN (Verified Allergy, Unknown, hives, 09/28/18) All Systems: reviewed and negative except above Subjective calm in bed Objective Last 24 Hour Vital Signs Date Time Temp Pulse Resp B/P (MAP) Pulse Ox O2 Delivery O2 Flow Rate FiO2 12/30/18 16:32 98.9 109 20 107/59 (75) 93 12/30/18 16:19 98.7 12/30/18 13:28 122 20 92 Room Air 12/30/18 13:18 118 20 98 Room Air 12/30/18 12:00 98.7 112 20 98/62 (74) 93 12/30/18 08:54 120 20 99 Room Air 21 12/30/18 08:44 120 22 99 Room Air 12/30/18 08:13 120 120/53 12/30/18 08:12 120/53 12/30/18 08:04 92 20 99 Room Air 21 12/30/18 08:00 98.7 120 20 120/53 (75) 93 12/30/18 07:58 89 20 Room Air 21 12/30/18 07:55 97 Room Air 21 12/30/18 07:54 89 20 97 Room Air 21 12/30/18 07:54 Room Air 12/30/18 07:46 118 12/30/18 07:42 Room Air 12/30/18 04:00 98.7 103 20 117/51 (73) 93 12/30/18 04:00 102 12/30/18 00:00 98.7 114 19 118/54 (75) 91 12/29/18 21:00 Nasal Cannula 2.0 12/29/18 20:31 Room Air 21 12/29/18 20:31 122 22 92 Room Air 21 12/29/18 20:29 122 24 Room Air 21 12/29/18 20:29 Room Air 21 12/29/18 20:29 92 Room Air 21 12/29/18 20:28 Room Air 21 12/29/18 20:28 122 24 92 Room Air 21 12/29/18 20:00 98.0 122 19 131/67 (88) 93 12/29/18 20:00 122 12/29/18 16:46 112 20 91 Room Air 21 Intake and Output 12/29/18 12/30/18 19:00 07:00 Intake Total 360 ml 240 ml Balance 360 ml 240 ml Intake Oral 360 ml 240 ml # Voids 1 Laboratory Tests 12/30/18 05:00: White Blood Count 11.5H, Red Blood Count 4.16L, Hemoglobin 10.7L, Hematocrit 34.7L, Mean Corpuscular Volume 83, Mean Corpuscular Hemoglobin 25.8L, Mean Corpuscular Hemoglobin Concent 30.9L, Red Cell Distribution Width 16.7H, Platelet Count 279, Mean Platelet Volume 6.0L, Neutrophils (%) (Auto) 63.3, Lymphocytes (%) (Auto) 14.3L, Monocytes (%) (Auto) 15.1H, Eosinophils (%) (Auto ) 5.9H, Basophils (%) (Auto) 1.3, Sodium Level 140, Potassium Level 5.1, Chloride Level 106, Carbon Dioxide Level 27, Anion Gap 7, Blood Urea Nitrogen 24H, Creatinine 1.4H, Estimat Glomerular Filtration Rate > 60, Glucose Level 84 , Calcium Level 8.4L Height (Feet): 6 Height (Inches): 1.00 Weight (Pounds): 130 General Appearance: alert EENT: normal ENT inspection Neck: normal alignment Cardiovascular: normal peripheral pulses, normal rate, regular rhythm Respiratory/Chest: chest wall non-tender, lungs clear, normal breath sounds Abdomen: normal bowel sounds, non tender, soft Extremities: normal inspection Edema: no edema noted Arm (L), no edema noted Arm (R), no edema noted Leg (L), no edema noted Leg (R), no edema noted Pedal (L), no edema noted Pedal (R), no edema noted Generalized Neurologic: responsive, motor weakness Skin: normal pigmentation, warm/dry Fabio Tracey DO Dec 30, 2018 16:38
--- NOTE | 2018-12-30 17:05 | NUR ---
HAND-OFF: Report given to JASON WHITE.
--- NOTE | 2018-12-30 17:15 | NUR ---
NURSE NOTES: Pt received from CHRISTOPHER Gutierrez alert and oriented x4 with no s/s of acute distress. IV site asymptomatic and patent. Bed in lowest position, call light and belongings within reach.
--- NOTE | 2018-12-30 18:40 | Nephrology Progress Note ---
Assessment/Plan Assessment 1. Acute renal failure improving 2. Chronic kidney disease. 3. Hyperkalemia stable 4. COPD exacerbation. 5. Chest pain. 6. Cardiovascular disease. Plan plan monitoring renal function avoid NSAID replace electrolyte as need it Subjective Subjective alert and awake c/o mild sob Objective Objective Last 24 Hour Vital Signs Date Time Temp Pulse Resp B/P (MAP) Pulse Ox O2 Delivery O2 Flow Rate FiO2 12/30/18 16:32 98.9 109 20 107/59 (75) 93 12/30/18 16:19 98.7 12/30/18 13:28 122 20 92 Room Air 21 12/30/18 13:18 118 20 98 Room Air 21 12/30/18 12:00 98.7 112 20 98/62 (74) 93 12/30/18 08:54 120 20 99 Room Air 21 12/30/18 08:44 120 22 99 Room Air 21 12/30/18 08:13 120 120/53 12/30/18 08:12 120/53 12/30/18 08:04 92 20 99 Room Air 12/30/18 08:00 98.7 120 20 120/53 (75) 93 12/30/18 07:58 89 20 Room Air 12/30/18 07:55 97 Room Air 21 12/30/18 07:54 89 20 97 Room Air 21 12/30/18 07:54 Room Air 12/30/18 07:46 118 12/30/18 07:42 Room Air 12/30/18 04:00 98.7 103 20 117/51 (73) 93 12/30/18 04:00 102 12/30/18 00:00 98.7 114 19 118/54 (75) 91 12/29/18 21:00 Nasal Cannula 2.0 12/29/18 20:31 Room Air 21 12/29/18 20:31 122 22 92 Room Air 21 12/29/18 20:29 122 24 Room Air 21 12/29/18 20:29 Room Air 21 12/29/18 20:29 92 Room Air 21 12/29/18 20:28 Room Air 21 12/29/18 20:28 122 24 92 Room Air 21 12/29/18 20:00 98.0 122 19 131/67 (88) 93 12/29/18 20:00 122 Intake and Output 12/29/18 12/30/18 18:59 06:59 Intake Total 360 ml 240 ml Balance 360 ml 240 ml Intake Oral 360 ml 240 ml # Voids 1 Laboratory Tests 12/30/18 05:00: White Blood Count 11.5H, Red Blood Count 4.16L, Hemoglobin 10.7L, Hematocrit 34.7L, Mean Corpuscular Volume 83, Mean Corpuscular Hemoglobin 25.8L, Mean Corpuscular Hemoglobin Concent 30.9L, Red Cell Distribution Width 16.7H, Platelet Count 279, Mean Platelet Volume 6.0L, Neutrophils (%) (Auto) 63.3, Lymphocytes (%) (Auto) 14.3L, Monocytes (%) (Auto) 15.1H, Eosinophils (%) (Auto ) 5.9H, Basophils (%) (Auto) 1.3, Sodium Level 140, Potassium Level 5.1, Chloride Level 106, Carbon Dioxide Level 27, Anion Gap 7, Blood Urea Nitrogen 24H, Creatinine 1.4H, Estimat Glomerular Filtration Rate > 60, Glucose Level 84 , Calcium Level 8.4L Height (Feet): 6 Height (Inches): 1.00 Weight (Pounds): 130 Objective HEAD AND NECK: No JVP. No LAD. Bitemporal wasting. Extraocular movement intact. Pupils are reactive to light and accommodation. LUNGS: Bilateral wheezing. CARDIAC: Regular rate and rhythm. S1, S2. No murmur. No rub. ABDOMEN: Soft, nontender, and nondistended. EXTREMITIES: Right heel ulceration, which is on dressing. No edema. No clubbing. Enriqueta Briones MD Dec 30, 2018 18:40
--- NOTE | 2018-12-30 19:15 | NUR ---
HAND-OFF: Report given to Gustavo Gibbs RN.
--- NOTE | 2018-12-30 19:16 | NUR ---
NURSE NOTES: Got report from Bradford WHITE. Pt in stable condition. Continue to monitor.
[2018-12-30 20:00] VITALS: BP 132/70
--- NOTE | 2018-12-30 22:15 | NUR ---
HAND-OFF: Report given to Lauren WHITE. Endorsed plan of care.
--- NOTE | 2018-12-30 22:50 | NUR ---
NURSE NOTES: Received report from Telly WHITE. Pt transferred from Tele. Pt A&O x4 laying semi-fowlers in bed. Pt c/o of 9/10 pain. IV site dry, intact, & flushed. Foam dressing on right foot C/D/I. Pt oriented to room. Pt belongings at bedside. Call light in reach, bed in lowest position, side rails up x2. Will continue to monitor pt.
[2018-12-31] VITALS: BP 149/77
--- NOTE | 2018-12-31 02:35 | NUR ---
NURSE NOTES: Pt has temp of 100.5. MD notified, awaiting response.
[2018-12-31] MEDS: Albuterol/Ipratropium 3ml neb HHN PRN ×3 (02:40→20:13)
[2018-12-31] MEDS ORDERED: HYDROmorphone 1mg/ml Carpuject IVP ONE (02:45)
[2018-12-31 04:06] VITALS: BP 145/80
--- NOTE | 2018-12-31 06:34 | NUR ---
NURSE NOTES: Pt wound dressing changed per MD order. Pictures taken and uploaded.
--- NOTE | 2018-12-31 07:40 | NUR ---
HAND-OFF: Report given to Meri RN. Pt is stable.
--- NOTE | 2018-12-31 07:52 | NUR ---
NURSE NOTES: Received patient resting comfortably in bed, no sign of distress, denies pain at this time HL patent , on fall precaution observed and maintained, . Call light in reach, bed in lowest position, side rails up x2. Will continue to monitor patient condition micheal jurado
[2018-12-31 08:00] VITALS: BP 119/62
[2018-12-31] MEDS: Lisinopril 10mg tab ORAL SCH (08:14)
[2018-12-31] MEDS: Heparin 5000 units/ml inj SUBQ SCH ×2 (08:16→21:00)
--- NOTE | 2018-12-31 10:16 | Nephrology Progress Note ---
Assessment/Plan Assessment 1. Acute renal failure improving 2. Chronic kidney disease. 3. Hyperkalemia stable 4. COPD exacerbation. 5. Chest pain. 6. Cardiovascular disease. Plan plan monitoring renal function avoid NSAID replace electrolyte as need it Subjective Subjective alert and awake c/o cough and mild sob Objective Objective Last 24 Hour Vital Signs Date Time Temp Pulse Resp B/P (MAP) Pulse Ox O2 Delivery O2 Flow Rate FiO2 12/31/18 08:14 145/80 12/31/18 08:13 113 145/80 12/31/18 08:00 97.5 106 20 119/62 (81) 95 12/31/18 08:00 Room Air 12/31/18 04:06 98.4 113 20 145/80 (101) 95 12/31/18 02:57 112 20 98 Nasal Cannula 2.0 28 12/31/18 02:45 107 20 96 Room Air 21 12/31/18 00:00 100.5 112 18 149/77 (101) 96 12/30/18 22:30 Room Air 12/30/18 22:30 95 Room Air 12/30/18 21:57 Room Air 12/30/18 20:50 104 16 99 Room Air 21 12/30/18 20:40 103 16 97 Room Air 21 12/30/18 20:40 103 16 97 Room Air 21 12/30/18 20:30 101 18 95 Room Air 21 12/30/18 20:00 99.0 101 19 132/70 (90) 95 12/30/18 19:21 98.9 12/30/18 16:32 98.9 109 20 107/59 (75) 93 12/30/18 13:28 122 20 92 Room Air 21 12/30/18 13:18 118 20 98 Room Air 21 12/30/18 12:00 98.7 112 20 98/62 (74) 93 Intake and Output 12/30/18 12/31/18 19:00 07:00 Intake Total 120 ml Output Total 600 ml 300 ml Balance -600 ml -180 ml Intake Oral 120 ml Output Urine Total 600 ml 300 ml Height (Feet): 6 Height (Inches): 1.00 Weight (Pounds): 130 Objective HEAD AND NECK: No JVP. No LAD. Bitemporal wasting. Extraocular movement intact. Pupils are reactive to light and accommodation. LUNGS: Bilateral wheezing. CARDIAC: Regular rate and rhythm. S1, S2. No murmur. No rub. ABDOMEN: Soft, nontender, and nondistended. EXTREMITIES: Right heel ulceration, which is on dressing. No edema. No clubbing. Enriqueta Briones MD Dec 31, 2018 10:16
--- NOTE | 2018-12-31 11:23 | NUR ---
RD ASSESSMENT & RECOMMENDATIONS SEE CARE ACTIVITY FOR COMPLETE ASSESSMENT DAILY ESTIMATED NEEDS: Needs based on wound, underweight/ 59kg 30-35 kcals/kg 3053-3648 total kcals 1.25-1.5 g protein/kg 74-89g g total protein 25-30 mL/kg 1104-7733 total fluid mLs NUTRITION DIAGNOSIS: 1) Increased kcal and protein needs R/T wound healing and for wt gain as evidenced by h/o right ankle chronic open wound, pt is est 71% IBW w/ underweight BMI per guidelines. 2) Altered nutrition related lab values R/T clinical condition, CHF as evidenced by elev K (5.4-> now wnl), elev BNP (1046). CURRENT DIET: REGULAR PO DIET RECOMMENDATIONS: LOW NA + double Protein portions/ texture as tolerated ADDITIONAL RECOMMENDATIONS: - RE-calibrate bed scale for accurate CBW - Weekly wt monitoring given underweight status - Snacks TID in between meals - Wound healing: MVI w/ min x 1, Vit C 500mg QD, Nilson 1pkt BID - Monitor K, need for diet restriction - Monitor BGs closely while solumedrol- now off .
[2018-12-31 12:00] VITALS: BP 120/54
--- NOTE | 2018-12-31 12:15 | NUR ---
*-* DISCAHRGE PLANNING *-* PATIENT HAS BEEN REFERRED TO: [facility]. P;[phone] F:[phone] & [facility] P:[phone] F:[phone]
[2018-12-31] MEDS: Budesonide HHN 0.25mg/2ml ud HHN SCH ×2 (12:26→22:26)
--- NOTE | 2018-12-31 12:28 | Pulmonology Progress Note ---
Assessment/Plan Problems: (1) COPD exacerbation (2) Acute bronchitis (3) Hypothyroidism (4) CAD (coronary artery disease) (5) Severe protein-calorie malnutrition (6) Chronic ulcer of right leg Assessment/Plan no new complains renal f/u respiratory treatment wound care dc steroids continue antibiotics dc planning Subjective ROS Limited/Unobtainable: No Constitutional: Reports: no symptoms HEENT: Repors: no symptoms Respiratory: Reports: no symptoms Allergies: Coded Allergies: EGG (Verified Allergy, Unknown, 09/28/18) MEPERIDINE (Verified Allergy, Unknown, 09/28/18) MORPHINE (Verified Allergy, Unknown, 09/28/18) NITROGLYCERIN (Verified Allergy, Unknown, hives, 09/28/18) Objective Last 24 Hour Vital Signs Date Time Temp Pulse Resp B/P (MAP) Pulse Ox O2 Delivery O2 Flow Rate FiO2 12/31/18 12:25 97 Room Air 12/31/18 12:24 100 20 97 Room Air 12/31/18 12:14 Room Air 12/31/18 12:14 62 22 89 Room Air 12/31/18 12:13 Room Air 12/31/18 12:13 Room Air 12/31/18 12:00 97.9 102 18 120/54 (76) 92 12/31/18 08:14 145/80 12/31/18 08:13 113 145/80 12/31/18 08:00 97.5 106 20 119/62 (81) 95 12/31/18 08:00 Room Air 12/31/18 04:06 98.4 113 20 145/80 (101) 95 12/31/18 02:57 112 20 98 Nasal Cannula 2.0 28 12/31/18 02:45 107 20 96 Room Air 21 12/31/18 00:00 100.5 112 18 149/77 (101) 96 12/30/18 22:30 Room Air 12/30/18 22:30 95 Room Air 12/30/18 21:57 Room Air 12/30/18 20:50 104 16 99 Room Air 21 12/30/18 20:40 103 16 97 Room Air 21 12/30/18 20:40 103 16 97 Room Air 21 12/30/18 20:30 101 18 95 Room Air 21 12/30/18 20:00 99.0 101 19 132/70 (90) 95 12/30/18 19:21 98.9 12/30/18 16:32 98.9 109 20 107/59 (75) 93 12/30/18 13:28 122 20 92 Room Air 21 12/30/18 13:18 118 20 98 Room Air 21 Intake and Output 12/30/18 12/31/18 19:00 07:00 Intake Total 120 ml Output Total 600 ml 300 ml Balance -600 ml -180 ml Intake Oral 120 ml Output Urine Total 600 ml 300 ml General Appearance: WD/WN HEENT: normocephalic, atraumatic, anicteric Respiratory/Chest: chest wall non-tender, lungs clear Cardiovascular: normal peripheral pulses, normal rate, no JVD Abdomen: soft, non tender Genitourinary: normal external genitalia Skin: no rash 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: 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 normal Lymphatic: no neck adenopathy Current Medications Medications (Trade) Dose Ordered Sig/Aminata Route PRN Reason Start Time Stop Time Status Last Admin Dose Admin Acetaminophen (Tylenol) 650 mg Q6H PRN ORAL Mild Pain/Temp > 100.5 12/31/18 05:00 01/30/19 04:59 Acetylcysteine (Mucomyst) 100 mg TIDRT HHN 12/30/18 22:30 01/26/19 12:59 12/31/18 12:14 Albuterol/ Ipratropium (Albuterol/ Ipratropium) 3 ml Q4H PRN HHN Shortness of Breath 12/31/18 01:00 01/01/19 08:59 12/31/18 12:15 Amlodipine Besylate (Norvasc) 10 mg DAILY ORAL 12/31/18 09:00 01/21/19 08:59 12/31/18 08:13 Budesonide (Pulmicort) 0.25 mg EVERY 12 HOURS HHN 12/30/18 22:30 01/26/19 20:59 12/31/18 12:26 Clopidogrel Bisulfate (Plavix) 75 mg DAILY ORAL 12/31/18 09:00 01/21/19 08:59 12/31/18 08:13 Dextrose (Dextrose 50%) 25 ml Q30M PRN IV Hypoglycemia 12/30/18 22:30 01/21/19 07:29 Dextrose (Dextrose 50%) 50 ml Q30M PRN IV Hypoglycemia 12/30/18 22:30 01/21/19 07:29 Heparin Sodium (Porcine) (Heparin 5000 units/ml) 5,000 units EVERY 12 HOURS SUBQ 12/30/18 22:30 01/21/19 08:59 12/31/18 08:16 Hydromorphone HCl (Dilaudid) 3 mg Q3H PRN IVP Severe Pain (Pain Scale 7-10) 12/31/18 05:49 01/07/19 05:48 12/31/18 09:23 Levetiracetam (Keppra) 250 mg Q12HR ORAL 12/31/18 09:00 01/30/19 08:59 12/31/18 08:13 Lisinopril (Zestril) 10 mg DAILY ORAL 12/31/18 09:00 01/25/19 08:59 12/31/18 08:14 Mirtazapine (Remeron) 30 mg BEDTIME ORAL 12/31/18 21:00 01/23/19 20:59 Ondansetron HCl (Zofran) 4 mg Q6H PRN IVP Nausea & Vomiting 12/31/18 01:30 01/21/19 07:29 Jessie Magana MD Dec 31, 2018 12:28
--- NOTE | 2018-12-31 12:33 | General Progress Note ---
Assessment/Plan Problem List: (1) Acute and chronic respiratory failure ICD Codes: J96.20 - Acute and chronic respiratory failure, unspecified whether with hypoxia or hypercapnia SNOMED: 12410937 (2) Chest pain ICD Codes: R07.9 - Chest pain, unspecified SNOMED: 90513722 Qualifiers: Qualified Codes: R07.9 - Chest pain, unspecified (3) HTN (hypertension) ICD Codes: I10 - Hypertension SNOMED: 85126809 (4) COPD exacerbation ICD Codes: J44.1 - Obstructive chronic bronchitis with exacerbation SNOMED: 754874670 (5) Acute CHF (congestive heart failure) ICD Codes: I50.9 - Heart failure, unspecified SNOMED: 55291734 Qualifiers: Qualified Codes: I50.9 - Heart failure, unspecified Status: stable, progressing Assessment/Plan o2 pulmt x pt diet cbc bmp am dc to snf if clear Subjective Constitutional: Reports: weakness Respiratory: Reports: shortness of breath Allergies: Coded Allergies: EGG (Verified Allergy, Unknown, 09/28/18) MEPERIDINE (Verified Allergy, Unknown, 09/28/18) MORPHINE (Verified Allergy, Unknown, 09/28/18) NITROGLYCERIN (Verified Allergy, Unknown, hives, 09/28/18) All Systems: reviewed and negative except above Subjective calm in bed Objective Last 24 Hour Vital Signs Date Time Temp Pulse Resp B/P (MAP) Pulse Ox O2 Delivery O2 Flow Rate FiO2 12/31/18 12:25 97 Room Air 12/31/18 12:24 100 20 97 Room Air 21 12/31/18 12:24 100 20 97 Room Air 21 12/31/18 12:14 Room Air 12/31/18 12:14 62 22 89 Room Air 21 12/31/18 12:13 Room Air 12/31/18 12:13 Room Air 21 12/31/18 12:00 97.9 102 18 120/54 (76) 92 12/31/18 08:14 145/80 12/31/18 08:13 113 145/80 12/31/18 08:00 97.5 106 20 119/62 (81) 95 12/31/18 08:00 Room Air 12/31/18 04:06 98.4 113 20 145/80 (101) 95 12/31/18 02:57 112 20 98 Nasal Cannula 2.0 28 12/31/18 02:45 107 20 96 Room Air 21 12/31/18 00:00 100.5 112 18 149/77 (101) 96 12/30/18 22:30 Room Air 12/30/18 22:30 95 Room Air 12/30/18 21:57 Room Air 12/30/18 20:50 104 16 99 Room Air 21 12/30/18 20:40 103 16 97 Room Air 21 12/30/18 20:40 103 16 97 Room Air 21 12/30/18 20:30 101 18 95 Room Air 21 12/30/18 20:00 99.0 101 19 132/70 (90) 95 12/30/18 19:21 98.9 12/30/18 16:32 98.9 109 20 107/59 (75) 93 12/30/18 13:28 122 20 92 Room Air 21 12/30/18 13:18 118 20 98 Room Air 21 Intake and Output 12/30/18 12/31/18 19:00 07:00 Intake Total 120 ml Output Total 600 ml 300 ml Balance -600 ml -180 ml Intake Oral 120 ml Output Urine Total 600 ml 300 ml Height (Feet): 6 Height (Inches): 1.00 Weight (Pounds): 130 General Appearance: alert EENT: normal ENT inspection Neck: normal alignment Cardiovascular: normal peripheral pulses, normal rate, regular rhythm Respiratory/Chest: chest wall non-tender, lungs clear, normal breath sounds Abdomen: normal bowel sounds, non tender, soft Extremities: normal inspection Edema: no edema noted Arm (L), no edema noted Arm (R), no edema noted Leg (L), no edema noted Leg (R), no edema noted Pedal (L), no edema noted Pedal (R), no edema noted Generalized Neurologic: responsive, motor weakness Skin: normal pigmentation, warm/dry Fabio Tracey DO Dec 31, 2018 12:33
--- NOTE | 2018-12-31 12:40 | General Progress Note ---
Assessment/Plan Problem List: (1) MDD (major depressive disorder), recurrent episode ICD Codes: F33.9 - Major depressive disorder, recurrent, unspecified SNOMED: 782026279 Status: stable, progressing Assessment/Plan remeron 30mg po qhs provided ro/st Subjective 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: Reports: anxiety, depressed, emotional problems Allergies: Coded Allergies: EGG (Verified Allergy, Unknown, 09/28/18) MEPERIDINE (Verified Allergy, Unknown, 09/28/18) MORPHINE (Verified Allergy, Unknown, 09/28/18) NITROGLYCERIN (Verified Allergy, Unknown, hives, 09/28/18) Objective Last 24 Hour Vital Signs Date Time Temp Pulse Resp B/P (MAP) Pulse Ox O2 Delivery O2 Flow Rate FiO2 12/31/18 12:33 103 16 99 Room Air 12/31/18 12:25 97 Room Air 12/31/18 12:24 100 20 97 Room Air 12/31/18 12:24 100 20 97 Room Air 12/31/18 12:14 Room Air 12/31/18 12:14 62 22 89 Room Air 12/31/18 12:13 Room Air 12/31/18 12:13 Room Air 12/31/18 12:00 97.9 102 18 120/54 (76) 92 12/31/18 08:14 145/80 12/31/18 08:13 113 145/80 12/31/18 08:00 97.5 106 20 119/62 (81) 95 12/31/18 08:00 Room Air 12/31/18 04:06 98.4 113 20 145/80 (101) 95 12/31/18 02:57 112 20 98 Nasal Cannula 2.0 28 12/31/18 02:45 107 20 96 Room Air 12/31/18 00:00 100.5 112 18 149/77 (101) 96 12/30/18 22:30 Room Air 12/30/18 22:30 95 Room Air 12/30/18 21:57 Room Air 12/30/18 20:50 104 16 99 Room Air 12/30/18 20:40 103 16 97 Room Air 12/30/18 20:40 103 16 97 Room Air 12/30/18 20:30 101 18 95 Room Air 12/30/18 20:00 99.0 101 19 132/70 (90) 95 12/30/18 19:21 98.9 12/30/18 16:32 98.9 109 20 107/59 (75) 93 12/30/18 13:28 122 20 92 Room Air 21 12/30/18 13:18 118 20 98 Room Air 21 Intake and Output 12/30/18 12/31/18 19:00 07:00 Intake Total 120 ml Output Total 600 ml 300 ml Balance -600 ml -180 ml Intake Oral 120 ml Output Urine Total 600 ml 300 ml Height (Feet): 6 Height (Inches): 1.00 Weight (Pounds): 130 General Appearance: WD/WN, no apparent distress, alert, cachetic Neurologic: oriented x 3, responsive, depressed affect Rachael Buckley MD Dec 31, 2018 12:40
[2018-12-31 15:55] VITALS: BP 147/71
--- NOTE | 2018-12-31 19:30 | NUR ---
HAND-OFF: Report given to CHRISTOPHER CERDA.
--- NOTE | 2018-12-31 19:56 | NUR ---
NURSE NOTES: Patient in bed, awake, alert and verbally responsive. Able to make needs known. Respiration is even and unlabored. On nasal cannula 2 L. No complaint of pain or discomfort at this time. Abdomen is soft and non distended. Skin is warm and dry to touch. Bed in low and locked position. Provided safe environment. Iv site is patent. Call light is at bedside. Will continue plan of care.
[2018-12-31 20:00] VITALS: BP 156/72
--- NOTE | 2018-12-31 21:44 | NUR ---
NURSE NOTES: Heparin was refused. Heparin medication drawn up, wasted.
[2019-01-01] VITALS: BP 138/86
--- NOTE | 2019-01-01 01:04 | NUR ---
NURSE NOTES: Patient in bed, awake, alert and verbally responsive. COmplained of general pain. Given pain medication as ordered. Call light is at bedside. Instructed to keep 2L nasal cannula. Patient understood, will do frequent nurse rounding.
[2019-01-01 04:00] VITALS: BP 117/58
--- NOTE | 2019-01-01 07:01 | NUR ---
HAND-OFF: Report given to CHRISTOPHER Edouard.
[2019-01-01 07:05] LABS: BASOPHILS % (AUTO) 1.8 % (0.0-2.0); EOSINOPHILS % (AUTO) 3.5 % (0.0-3.0); HEMATOCRIT 36.4 % (42.0-52.0); HEMOGLOBIN 11.4 G/DL (14.2-18.0); LYMPHOCYTES % (AUTO) 12.1 % (20.0-45.0); MEAN CORPUSCULAR VOLUME 81 FL (80-99); NEUTROPHILS % (AUTO) 69.6 % (45.0-75.0); PLATELET COUNT 370 K/UL (150-450); RED BLOOD COUNT 4.47 M/UL (4.70-6.10); RED CELL DISTRIBUTION WIDTH 16.3 % (11.6-14.8); WHITE BLOOD COUNT 11.5 K/UL (4.8-10.8)
[2019-01-01] MEDS: Albuterol/Ipratropium 3ml neb HHN PRN ×3 (07:09→19:21)
[2019-01-01 07:13] LABS: ANION GAP 16 mmol/L (5-15); CALCIUM 8.7 MG/DL (8.5-10.1); CARBON DIOXIDE 25 MMOL/L (21-32); CHLORIDE 99 MMOL/L (98-107); CREATININE 1.6 MG/DL (0.55-1.30); POTASSIUM 5.3 MMOL/L (3.5-5.1); SODIUM 140 MMOL/L (136-145)
[2019-01-01 07:26] LABS: BLOOD UREA NITROGEN 27 mg/dL (7-18)
[2019-01-01 08:00] VITALS: BP 100/50
--- NOTE | 2019-01-01 08:00 | NUR ---
NURSE NOTES: received patient in bed, awake, with complaint of pain at right ankle, nurse told patient she'll medicated once pain med is due. Patient removes nasal cannula on and off, reinforced patient to keep cannula as his saturation tends to present a significant drop without it. Patient has a WES saline locked IV access. Bed locked at the lowest position possible, call light within easy reach, siderails x2. Will continue to monitor patient and follow up with the plan of care.
[2019-01-01] MEDS: Lisinopril 10mg tab ORAL SCH (08:16)
[2019-01-01] MEDS: Heparin 5000 units/ml inj SUBQ SCH ×2 (08:20→21:00)
[2019-01-01] MEDS: Budesonide HHN 0.25mg/2ml ud HHN SCH ×2 (09:07→21:33)
--- NOTE | 2019-01-01 09:16 | General Progress Note ---
Assessment/Plan Problem List: (1) Acute and chronic respiratory failure ICD Codes: J96.20 - Acute and chronic respiratory failure, unspecified whether with hypoxia or hypercapnia SNOMED: 58248922 (2) Chest pain ICD Codes: R07.9 - Chest pain, unspecified SNOMED: 37691464 Qualifiers: Qualified Codes: R07.9 - Chest pain, unspecified (3) HTN (hypertension) ICD Codes: I10 - Hypertension SNOMED: 02228406 (4) COPD exacerbation ICD Codes: J44.1 - Obstructive chronic bronchitis with exacerbation SNOMED: 884640951 (5) Acute CHF (congestive heart failure) ICD Codes: I50.9 - Heart failure, unspecified SNOMED: 47112565 Qualifiers: Qualified Codes: I50.9 - Heart failure, unspecified Status: stable, progressing Assessment/Plan o2 pulmt x pt diet cbc bmp am dc to snf if clear Subjective Constitutional: Reports: weakness Allergies: Coded Allergies: EGG (Verified Allergy, Unknown, 09/28/18) MEPERIDINE (Verified Allergy, Unknown, 09/28/18) MORPHINE (Verified Allergy, Unknown, 09/28/18) NITROGLYCERIN (Verified Allergy, Unknown, hives, 09/28/18) All Systems: reviewed and negative except above Subjective calm in bed Objective Last 24 Hour Vital Signs Date Time Temp Pulse Resp B/P (MAP) Pulse Ox O2 Delivery O2 Flow Rate FiO2 01/01/19 09:07 122 22 80 Room Air 01/01/19 08:16 100/50 01/01/19 08:16 111 100/50 01/01/19 08:00 98.1 111 18 100/50 (67) 95 01/01/19 07:31 109 22 95 Room Air 01/01/19 07:14 Room Air 01/01/19 07:14 91 Room Air 01/01/19 07:09 109 22 91 Room Air 01/01/19 04:00 97.0 101 17 117/58 (77) 93 01/01/19 00:00 99.0 108 15 138/86 (103) 92 12/31/18 22:33 107 20 98 Nasal Cannula 2.0 28 12/31/18 22:26 109 20 95 Room Air 21 12/31/18 21:00 Room Air 12/31/18 20:24 105 20 98 Nasal Cannula 2.0 28 12/31/18 20:15 91 Room Air 21 12/31/18 20:15 Room Air 21 12/31/18 20:13 78 22 91 Room Air 12/31/18 20:00 96.9 102 19 156/72 (100) 94 12/31/18 15:55 97.7 104 20 147/71 (96) 93 12/31/18 12:33 103 16 99 Room Air 12/31/18 12:25 97 Room Air 12/31/18 12:24 100 20 97 Room Air 21 12/31/18 12:24 100 20 97 Room Air 21 12/31/18 12:14 Room Air 12/31/18 12:14 62 22 89 Room Air 12/31/18 12:13 Room Air 12/31/18 12:13 Room Air 12/31/18 12:00 97.9 102 18 120/54 (76) 92 Intake and Output 12/31/18 01/01/19 19:00 07:00 Intake Total 650 ml Output Total 690 ml Balance -40 ml Intake Oral 650 ml Output Urine Total 690 ml # Voids 2 Laboratory Tests 01/01/19 06:05: White Blood Count 11.5H, Red Blood Count 4.47L, Hemoglobin 11.4L, Hematocrit 36.4L, Mean Corpuscular Volume 81, Mean Corpuscular Hemoglobin 25.5L, Mean Corpuscular Hemoglobin Concent 31.4L, Red Cell Distribution Width 16.3H, Platelet Count 370, Mean Platelet Volume 6.3L, Neutrophils (%) (Auto) 69.6, Lymphocytes (%) (Auto) 12.1L, Monocytes (%) (Auto) 13.0H, Eosinophils (%) (Auto ) 3.5H, Basophils (%) (Auto) 1.8, Sodium Level 140, Potassium Level 5.3H, Chloride Level 99, Carbon Dioxide Level 25, Anion Gap 16H, Blood Urea Nitrogen 27H, Creatinine 1.6H, Estimat Glomerular Filtration Rate 52.2, Glucose Level 78 , Calcium Level 8.7 Height (Feet): 6 Height (Inches): 1.00 Weight (Pounds): 130 General Appearance: lethargic EENT: normal ENT inspection Neck: normal alignment Cardiovascular: normal peripheral pulses, normal rate, regular rhythm Respiratory/Chest: chest wall non-tender, lungs clear, normal breath sounds Abdomen: normal bowel sounds, non tender, soft Extremities: normal inspection Edema: no edema noted Arm (L), no edema noted Arm (R), no edema noted Leg (L), no edema noted Leg (R), no edema noted Pedal (L), no edema noted Pedal (R), no edema noted Generalized Neurologic: motor weakness Skin: normal pigmentation, warm/dry Fabio Tracey DO Jan 01, 2019 09:16
--- NOTE | 2019-01-01 09:19 | NUR ---
Respiratory Note: Found pt on room air with a saturation of 79%-80% and HR of 122 bpm. Pt currently refusing to wear his NC. Pulmicort tx administered, saturation post tx 88% and HR 112, however pt continues to refuse O2 supplement. RN made aware, will continue to monitor.
[2019-01-01] MEDS ORDERED: NS 275ml ONE (10:31)
[2019-01-01 12:00] VITALS: BP 120/69
--- NOTE | 2019-01-01 12:26 | General Progress Note ---
Assessment/Plan Problem List: (1) MDD (major depressive disorder), recurrent episode ICD Codes: F33.9 - Major depressive disorder, recurrent, unspecified SNOMED: 225506764 Status: doing well, stable Assessment/Plan remeron 30mg po qhs provided ro/st Subjective 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: Reports: anxiety, depressed Allergies: Coded Allergies: EGG (Verified Allergy, Unknown, 09/28/18) MEPERIDINE (Verified Allergy, Unknown, 09/28/18) MORPHINE (Verified Allergy, Unknown, 09/28/18) NITROGLYCERIN (Verified Allergy, Unknown, hives, 09/28/18) Subjective The pt stated that he does not feel good today and is very sick. Objective Last 24 Hour Vital Signs Date Time Temp Pulse Resp B/P (MAP) Pulse Ox O2 Delivery O2 Flow Rate FiO2 01/01/19 09:18 112 20 88 Room Air 01/01/19 09:07 122 22 80 Room Air 01/01/19 09:00 Room Air 01/01/19 08:53 98.1 01/01/19 08:16 100/50 01/01/19 08:16 111 100/50 01/01/19 08:00 98.1 111 18 100/50 (67) 95 01/01/19 07:31 109 22 95 Room Air 01/01/19 07:14 Room Air 01/01/19 07:14 91 Room Air 01/01/19 07:09 109 22 91 Room Air 01/01/19 04:00 97.0 101 17 117/58 (77) 93 01/01/19 00:00 99.0 108 15 138/86 (103) 92 12/31/18 22:33 107 20 98 Nasal Cannula 2.0 28 12/31/18 22:26 109 20 95 Room Air 21 12/31/18 21:00 Room Air 12/31/18 20:24 105 20 98 Nasal Cannula 2.0 28 12/31/18 20:15 91 Room Air 21 12/31/18 20:15 Room Air 21 12/31/18 20:13 78 22 91 Room Air 21 12/31/18 20:00 96.9 102 19 156/72 (100) 94 12/31/18 15:55 97.7 104 20 147/71 (96) 93 12/31/18 12:33 103 16 99 Room Air 21 Intake and Output 12/31/18 01/01/19 19:00 07:00 Intake Total 650 ml Output Total 690 ml Balance -40 ml Intake Oral 650 ml Output Urine Total 690 ml # Voids 2 Laboratory Tests 01/01/19 06:05: White Blood Count 11.5H, Red Blood Count 4.47L, Hemoglobin 11.4L, Hematocrit 36.4L, Mean Corpuscular Volume 81, Mean Corpuscular Hemoglobin 25.5L, Mean Corpuscular Hemoglobin Concent 31.4L, Red Cell Distribution Width 16.3H, Platelet Count 370, Mean Platelet Volume 6.3L, Neutrophils (%) (Auto) 69.6, Lymphocytes (%) (Auto) 12.1L, Monocytes (%) (Auto) 13.0H, Eosinophils (%) (Auto ) 3.5H, Basophils (%) (Auto) 1.8, Sodium Level 140, Potassium Level 5.3H, Chloride Level 99, Carbon Dioxide Level 25, Anion Gap 16H, Blood Urea Nitrogen 27H, Creatinine 1.6H, Estimat Glomerular Filtration Rate 52.2, Glucose Level 78 , Calcium Level 8.7 Height (Feet): 6 Height (Inches): 1.00 Weight (Pounds): 130 General Appearance: no apparent distress - dozing off, alert Rachael Buckley MD Jan 01, 2019 12:26
--- NOTE | 2019-01-01 13:53 | Pulmonology Progress Note ---
Assessment/Plan Problems: (1) COPD exacerbation (2) Acute bronchitis (3) Hypothyroidism (4) CAD (coronary artery disease) (5) Severe protein-calorie malnutrition (6) Chronic ulcer of right leg Assessment/Plan no new complains renal f/u respiratory treatment wound care dc steroids continue antibiotics dc planning Subjective ROS Limited/Unobtainable: No Constitutional: Reports: no symptoms HEENT: Repors: no symptoms Allergies: Coded Allergies: EGG (Verified Allergy, Unknown, 09/28/18) MEPERIDINE (Verified Allergy, Unknown, 09/28/18) MORPHINE (Verified Allergy, Unknown, 09/28/18) NITROGLYCERIN (Verified Allergy, Unknown, hives, 09/28/18) Objective Last 24 Hour Vital Signs Date Time Temp Pulse Resp B/P (MAP) Pulse Ox O2 Delivery O2 Flow Rate FiO2 01/01/19 12:46 110 22 94 Nasal Cannula 2.0 01/01/19 12:31 112 22 91 Nasal Cannula 2.0 01/01/19 12:12 98.1 01/01/19 09:18 112 20 88 Room Air 01/01/19 09:07 122 22 80 Room Air 01/01/19 09:00 Room Air 01/01/19 08:16 100/50 01/01/19 08:16 111 100/50 01/01/19 08:00 98.1 111 18 100/50 (67) 95 01/01/19 07:31 109 22 95 Room Air 01/01/19 07:14 Room Air 01/01/19 07:14 91 Room Air 01/01/19 07:09 109 22 91 Room Air 01/01/19 04:00 97.0 101 17 117/58 (77) 93 01/01/19 00:00 99.0 108 15 138/86 (103) 92 12/31/18 22:33 107 20 98 Nasal Cannula 2.0 12/31/18 22:26 109 20 95 Room Air 12/31/18 21:00 Room Air 12/31/18 20:24 105 20 98 Nasal Cannula 2.0 12/31/18 20:15 91 Room Air 12/31/18 20:15 Room Air 12/31/18 20:13 78 22 91 Room Air 12/31/18 20:00 96.9 102 19 156/72 (100) 94 12/31/18 15:55 97.7 104 20 147/71 (96) 93 Intake and Output 12/31/18 01/01/19 19:00 07:00 Intake Total 650 ml Output Total 690 ml Balance -40 ml Intake Oral 650 ml Output Urine Total 690 ml # Voids 2 General Appearance: WD/WN HEENT: normocephalic, atraumatic Respiratory/Chest: chest wall non-tender, lungs clear Cardiovascular: normal peripheral pulses, regular rhythm Laboratory Tests 01/01/19 06:05: White Blood Count 11.5H, Red Blood Count 4.47L, Hemoglobin 11.4L, Hematocrit 36.4L, Mean Corpuscular Volume 81, Mean Corpuscular Hemoglobin 25.5L, Mean Corpuscular Hemoglobin Concent 31.4L, Red Cell Distribution Width 16.3H, Platelet Count 370, Mean Platelet Volume 6.3L, Neutrophils (%) (Auto) 69.6, Lymphocytes (%) (Auto) 12.1L, Monocytes (%) (Auto) 13.0H, Eosinophils (%) (Auto ) 3.5H, Basophils (%) (Auto) 1.8, Sodium Level 140, Potassium Level 5.3H, Chloride Level 99, Carbon Dioxide Level 25, Anion Gap 16H, Blood Urea Nitrogen 27H, Creatinine 1.6H, Estimat Glomerular Filtration Rate 52.2, Glucose Level 78 , Calcium Level 8.7 Current Medications Medications (Trade) Dose Ordered Sig/Aminata Route PRN Reason Start Time Stop Time Status Last Admin Dose Admin Acetaminophen (Tylenol) 650 mg Q6H PRN ORAL Mild Pain/Temp > 100.5 12/31/18 05:00 01/30/19 04:59 Acetylcysteine (Mucomyst) 100 mg TIDRT HHN 12/30/18 22:30 01/26/19 12:59 01/01/19 12:31 Albuterol/ Ipratropium (Albuterol/ Ipratropium) 3 ml Q4H PRN HHN Shortness of Breath 01/01/19 12:30 01/06/19 12:29 01/01/19 12:31 Amlodipine Besylate (Norvasc) 10 mg DAILY ORAL 12/31/18 09:00 01/21/19 08:59 12/31/18 08:13 Budesonide (Pulmicort) 0.25 mg EVERY 12 HOURS HHN 12/30/18 22:30 01/26/19 20:59 01/01/19 09:07 Clopidogrel Bisulfate (Plavix) 75 mg DAILY ORAL 12/31/18 09:00 01/21/19 08:59 01/01/19 08:15 Dextrose (Dextrose 50%) 25 ml Q30M PRN IV Hypoglycemia 12/30/18 22:30 01/21/19 07:29 Dextrose (Dextrose 50%) 50 ml Q30M PRN IV Hypoglycemia 12/30/18 22:30 01/21/19 07:29 Heparin Sodium (Porcine) (Heparin 5000 units/ml) 5,000 units EVERY 12 HOURS SUBQ 12/30/18 22:30 01/21/19 08:59 01/01/19 08:20 Hydromorphone HCl (Dilaudid) 3 mg Q3H PRN IVP Severe Pain (Pain Scale 7-10) 12/31/18 05:49 01/07/19 05:48 01/01/19 11:42 Levetiracetam (Keppra) 250 mg Q12HR ORAL 12/31/18 09:00 01/30/19 08:59 01/01/19 08:15 Lisinopril (Zestril) 10 mg DAILY ORAL 12/31/18 09:00 01/25/19 08:59 12/31/18 08:14 Mirtazapine (Remeron) 30 mg BEDTIME ORAL 12/31/18 21:00 01/23/19 20:59 12/31/18 21:37 Ondansetron HCl (Zofran) 4 mg Q6H PRN IVP Nausea & Vomiting 12/31/18 01:30 01/21/19 07:29 Jessie Magana MD Jan 01, 2019 13:53
[2019-01-01 16:00] VITALS: BP 110/60
--- NOTE | 2019-01-01 17:14 | NUR ---
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 SPOKE WITH AHMET FROM [employer] SHE WILL GENERATE AUTHORIZATION FOR SNF PLACEMENT. WILL FOLLOW UP WITH SNF.
--- NOTE | 2019-01-01 19:36 | NUR ---
HAND-OFF: Report given to CHRISTOPHER Harrington.
--- NOTE | 2019-01-01 19:53 | NUR ---
NURSE NOTES: Pt received asleep, able to make needs known, call light within reach, bed in lowest position.
[2019-01-01 20:00] VITALS: BP 98/59
--- NOTE | 2019-01-01 21:15 | NUR ---
NURSE NOTES: Pt refused Heparin subQ. I explained the benefits of the medication and he still refused.
--- NOTE | 2019-01-01 23:44 | Cardiology Report ---
APPROVED REPORT EKG Measurement Heart [id number] Sinus tachycardia Right atrial enlargement Voltage for LVH Nonspecific ST abnormality Abnormal ECG
[2019-01-02] VITALS (7 sets, daily range): BP systolic 119–139; BP diastolic 60–73
[2019-01-02 06:56] LABS: ANION GAP 9 mmol/L (5-15); BLOOD UREA NITROGEN 32 mg/dL (7-18); CALCIUM 8.7 MG/DL (8.5-10.1); CARBON DIOXIDE 26 MMOL/L (21-32); CHLORIDE 104 MMOL/L (98-107); CREATININE 1.6 MG/DL (0.55-1.30); POTASSIUM 5.4 MMOL/L (3.5-5.1); SODIUM 139 MMOL/L (136-145)
[2019-01-02 07:03] LABS: BASOPHILS % (AUTO) 0.9 % (0.0-2.0); EOSINOPHILS % (AUTO) 3.3 % (0.0-3.0); HEMATOCRIT 36.5 % (42.0-52.0); HEMOGLOBIN 11.2 G/DL (14.2-18.0); MEAN CORPUSCULAR VOLUME 82 FL (80-99); MONOCYTES % (AUTO) 17.2 % (1.0-10.0); NEUTROPHILS % (AUTO) 67.6 % (45.0-75.0); PLATELET COUNT 370 K/UL (150-450); RED BLOOD COUNT 4.43 M/UL (4.70-6.10); RED CELL DISTRIBUTION WIDTH 16.5 % (11.6-14.8); WHITE BLOOD COUNT 13.3 K/UL (4.8-10.8)
[2019-01-02] MEDS: Albuterol/Ipratropium 3ml neb HHN PRN ×2 (07:07→20:01)
--- NOTE | 2019-01-02 07:30 | NUR ---
NURSE NOTES: Received pt from CHRISTOPHER ERAZO. Pt is alert and orient x4. No SOB or acute respiratory distress noted. pt has intact iv access WES 22g SL. all needs attended, bed is locked and is in the lowest position. call light within easy reach. will continue to monitor.
--- NOTE | 2019-01-02 07:49 | NUR ---
HAND-OFF: Report given to CHRISTOPHER Flannery.
[2019-01-02] MEDS: Budesonide HHN 0.25mg/2ml ud HHN SCH ×2 (09:04→20:05)
[2019-01-02] MEDS: Lisinopril 10mg tab ORAL SCH (09:17)
[2019-01-02] MEDS: Heparin 5000 units/ml inj SUBQ SCH ×2 (09:20→21:00)
--- NOTE | 2019-01-02 13:10 | NUR ---
CHARGE NURSE NOTE: K-5.4. notified.
--- NOTE | 2019-01-02 13:23 | Pulmonology Progress Note ---
Assessment/Plan Problems: (1) COPD exacerbation (2) Acute bronchitis (3) Hypothyroidism (4) CAD (coronary artery disease) (5) Severe protein-calorie malnutrition (6) Chronic ulcer of right leg Assessment/Plan no new complains renal f/u respiratory treatment wound care dc steroids continue antibiotics wbc still high despite off steroids Subjective ROS Limited/Unobtainable: No Constitutional: Reports: no symptoms HEENT: Repors: no symptoms Allergies: Coded Allergies: EGG (Verified Allergy, Unknown, 09/28/18) MEPERIDINE (Verified Allergy, Unknown, 09/28/18) MORPHINE (Verified Allergy, Unknown, 09/28/18) NITROGLYCERIN (Verified Allergy, Unknown, hives, 09/28/18) Objective Last 24 Hour Vital Signs Date Time Temp Pulse Resp B/P (MAP) Pulse Ox O2 Delivery O2 Flow Rate FiO2 01/02/19 13:09 Nasal Cannula 2.0 28 01/02/19 13:09 Nasal Cannula 2.0 28 01/02/19 12:54 97.9 120 20 135/65 (88) 93 01/02/19 09:39 98.1 01/02/19 09:19 106 20 96 Room Air 21 01/02/19 09:17 129/60 01/02/19 09:13 99 129/60 01/02/19 09:04 102 20 96 Room Air 21 01/02/19 09:00 Nasal Cannula 2.0 01/02/19 08:00 98.1 99 19 129/60 (83) 96 01/02/19 07:13 102 20 96 Room Air 21 01/02/19 07:06 98 20 92 Room Air 21 01/02/19 07:06 92 Room Air 21 01/02/19 07:06 Room Air 21 01/02/19 04:00 98.8 108 20 136/72 (93) 97 01/02/19 00:00 98.1 120 20 139/73 (95) 95 01/01/19 21:42 Nasal Cannula 2.0 28 01/01/19 21:41 Nasal Cannula 2.0 28 01/01/19 21:00 Nasal Cannula 2.0 01/01/19 20:00 97.1 118 18 98/59 (72) 96 01/01/19 19:34 114 20 97 Nasal Cannula 2.0 28 2/8/19 19:24 Nasal Cannula 2.0 28 01/01/19 19:23 93 Nasal Cannula 2.0 28 01/01/19 19:21 110 20 93 Nasal Cannula 2.0 28 01/01/19 16:00 98.2 109 20 110/60 (77) 93 Intake and Output 01/01/19 01/02/19 19:00 07:00 Intake Total 100 ml Output Total 800 ml 550 ml Balance -700 ml -550 ml Intake Oral 100 ml Output Urine Total 800 ml 550 ml Objective General Appearance: cachectic HEENT: normocephalic Respiratory/Chest: chest wall non-tender, lungs clear, decrease breath sounds Cardiovascular: normal peripheral pulses, normal rate Abdomen: normal bowel sounds, soft, non tender Extremities: no cyanosis Skin: no rash Laboratory Tests 01/02/19 05:45: White Blood Count 13.3H, Red Blood Count 4.43L, Hemoglobin 11.2L, Hematocrit 36.5L, Mean Corpuscular Volume 82, Mean Corpuscular Hemoglobin 25.3L, Mean Corpuscular Hemoglobin Concent 30.7L, Red Cell Distribution Width 16.5H, Platelet Count 370, Mean Platelet Volume 6.2L, Neutrophils (%) (Auto) 67.6, Lymphocytes (%) (Auto) 11.0L, Monocytes (%) (Auto) 17.2H, Eosinophils (%) (Auto ) 3.3H, Basophils (%) (Auto) 0.9, Sodium Level 139, Potassium Level 5.4H, Chloride Level 104, Carbon Dioxide Level 26, Anion Gap 9, Blood Urea Nitrogen 32H, Creatinine 1.6H, Estimat Glomerular Filtration Rate 52.2, Glucose Level 72L , Calcium Level 8.7 Current Medications Medications (Trade) Dose Ordered Sig/Aminata Route PRN Reason Start Time Stop Time Status Last Admin Dose Admin Acetaminophen (Tylenol) 650 mg Q6H PRN ORAL Mild Pain/Temp > 100.5 12/31/18 05:00 01/30/19 04:59 Acetylcysteine (Mucomyst) 100 mg TIDRT HHN 12/30/18 22:30 01/26/19 12:59 01/02/19 07:07 Albuterol/ Ipratropium (Albuterol/ Ipratropium) 3 ml Q4H PRN HHN Shortness of Breath 01/01/19 12:30 01/06/19 12:29 01/02/19 07:07 Amlodipine Besylate (Norvasc) 10 mg DAILY ORAL 12/31/18 09:00 01/21/19 08:59 01/02/19 09:13 Budesonide (Pulmicort) 0.25 mg EVERY 12 HOURS HHN 12/30/18 22:30 01/26/19 20:59 01/02/19 09:04 Clopidogrel Bisulfate (Plavix) 75 mg DAILY ORAL 12/31/18 09:00 01/21/19 08:59 01/02/19 09:13 Dextrose (Dextrose 50%) 25 ml Q30M PRN IV Hypoglycemia 12/30/18 22:30 01/21/19 07:29 Dextrose (Dextrose 50%) 50 ml Q30M PRN IV Hypoglycemia 12/30/18 22:30 01/21/19 07:29 Heparin Sodium (Porcine) (Heparin 5000 units/ml) 5,000 units EVERY 12 HOURS SUBQ 12/30/18 22:30 01/21/19 08:59 01/02/19 09:20 Hydromorphone HCl (Dilaudid) 3 mg Q3H PRN IVP Severe Pain (Pain Scale 7-10) 12/31/18 05:49 01/07/19 05:48 01/02/19 12:56 Levetiracetam (Keppra) 250 mg Q12HR ORAL 12/31/18 09:00 01/30/19 08:59 01/02/19 09:13 Lisinopril (Zestril) 10 mg DAILY ORAL 12/31/18 09:00 01/25/19 08:59 01/02/19 09:17 Mirtazapine (Remeron) 30 mg BEDTIME ORAL 12/31/18 21:00 01/23/19 20:59 01/01/19 21:07 Ondansetron HCl (Zofran) 4 mg Q6H PRN IVP Nausea & Vomiting 12/31/18 01:30 01/21/19 07:29 Sodium Polystyrene Sulfonate (Kayexalate) 30 gm ONCE ORAL 01/02/19 14:00 01/02/19 15:00 Jessie Magana MD Jan 02, 2019 13:23
[2019-01-02] MEDS ORDERED: Sodium Polystyrene Sulfonate 15gm Powder ORAL SCH (14:00)
--- NOTE | 2019-01-02 14:50 | NUR ---
CASE MANAGEMENT: REVIEW SI: CHF EXACERBATION T 97.9 HR 120 RR 20 BP 135/65 SAT 93% NC/2L WBC 13.3 H/H 11.2/36.5 K 5.4 IS: KAYEXALATE PO X1 NORVASC PO QD KEPPRA PO Q12HR PULMICORT HHN Q12HR MED/SURG STATUS DCP: PATIENT IS FROM HOME. PATIENT REFERRED TO [facility]
--- NOTE | 2019-01-02 15:39 | NUR ---
CASE MANAGEMENT: DCPNOTE PATIENT REFERRED TO [facility] INS AUTH# [id number] Addendum: 01/02/19 at 1607 by JORGE HERMOSILLO CM UPON DISCHARGE PATIENT WILL TRANSFER TO [facility] [phone] ROOM [place] [facility] TRANSPORTATION VIA [facility] [id number] ETA 18:00
[2019-01-02] MEDS ORDERED: REMERON30 M1 ORAL ×2 (16:28→16:29)
--- NOTE | 2019-01-02 16:32 | Cardiology Progress Note ---
Assessment/Plan Problem List: (1) Chest pain (2) Acute and chronic respiratory failure (3) MDD (major depressive disorder), recurrent episode (4) HTN (hypertension) (5) Chronic ulcer of right leg Status: stable, progressing Status Narrative Pt w/ chest pain, ? musculoskel origin - atypical for angina - localized, constant, but given hx will check ekg and troponin. WBC is increasing - ? LE infection He is hyperkalemic and renal fxn sl worse. Assessment/Plan Check ekg, troponins continue current meds. Avoid QUINTEN/ ARB in view of inc bun/cr Nephrology followup for worsening RF. Subjective ROS Limited/Unobtainable: No Subjective Cardiology for Dr. Anaya Pt c/o chest pain, leg pain Objective Last 24 Hour Vital Signs Date Time Temp Pulse Resp B/P (MAP) Pulse Ox O2 Delivery O2 Flow Rate FiO2 01/02/19 15:57 97.4 73 18 126/66 (86) 98 01/02/19 13:26 97.9 01/02/19 13:09 Nasal Cannula 2.0 28 01/02/19 13:09 Nasal Cannula 2.0 28 01/02/19 12:54 97.9 120 20 135/65 (88) 93 01/02/19 09:19 106 20 96 Room Air 21 01/02/19 09:17 129/60 01/02/19 09:13 99 129/60 01/02/19 09:04 102 20 96 Room Air 21 01/02/19 09:00 Nasal Cannula 2.0 01/02/19 08:00 98.1 99 19 129/60 (83) 96 01/02/19 07:13 102 20 96 Room Air 21 01/02/19 07:06 98 20 92 Room Air 21 01/02/19 07:06 92 Room Air 21 01/02/19 07:06 Room Air 21 01/02/19 04:00 98.8 108 20 136/72 (93) 97 01/02/19 00:00 98.1 120 20 139/73 (95) 95 01/01/19 21:42 Nasal Cannula 2.0 28 01/01/19 21:41 Nasal Cannula 2.0 28 01/01/19 21:00 Nasal Cannula 2.0 01/01/19 20:00 97.1 118 18 98/59 (72) 96 01/01/19 19:34 114 20 97 Nasal Cannula 2.0 28 01/01/19 19:24 Nasal Cannula 2.0 28 01/01/19 19:23 93 Nasal Cannula 2.0 28 01/01/19 19:21 110 20 93 Nasal Cannula 2.0 28 General Appearance: WD/WN, no apparent distress, alert EENT: PERRL/EOMI Neck: supple, no JVD Rhythm: NSR Cardiovascular: normal rate, regular rhythm Respiratory/Chest: other - scattered rhonchi bilat Abdomen: non tender, soft Extremities: other - no edema. R foot dressing. no palpable dp/ pt pulses, but extremities warm, perfused. Intake and Output 01/01/19 01/02/19 19:00 07:00 Intake Total 100 ml Output Total 800 ml 550 ml Balance -700 ml -550 ml Intake Oral 100 ml Output Urine Total 800 ml 550 ml Laboratory Tests Test 01/02/19 05:45 White Blood Count 13.3 K/UL (4.8-10.8) H Red Blood Count 4.43 M/UL (4.70-6.10) L Hemoglobin 11.2 G/DL (14.2-18.0) L Hematocrit 36.5 % (42.0-52.0) L Mean Corpuscular Volume 82 FL (80-99) Mean Corpuscular Hemoglobin 25.3 PG (27.0-31.0) L Mean Corpuscular Hemoglobin Concent 30.7 G/DL (32.0-36.0) L Red Cell Distribution Width 16.5 % (11.6-14.8) H Platelet Count 370 K/UL (150-450) Mean Platelet Volume 6.2 FL (6.5-10.1) L Neutrophils (%) (Auto) 67.6 % (45.0-75.0) Lymphocytes (%) (Auto) 11.0 % (20.0-45.0) L Monocytes (%) (Auto) 17.2 % (1.0-10.0) H Eosinophils (%) (Auto) 3.3 % (0.0-3.0) H Basophils (%) (Auto) 0.9 % (0.0-2.0) Sodium Level 139 MMOL/L (136-145) Potassium Level 5.4 MMOL/L (3.5-5.1) H Chloride Level 104 MMOL/L (98-107) Carbon Dioxide Level 26 MMOL/L (21-32) Anion Gap 9 mmol/L (5-15) Blood Urea Nitrogen 32 mg/dL (7-18) H Creatinine 1.6 MG/DL (0.55-1.30) H Estimat Glomerular Filtration Rate 52.2 mL/min (>60) Glucose Level 72 MG/DL (74-106) L Calcium Level 8.7 MG/DL (8.5-10.1) Citlalli Ivory MD Jan 02, 2019 16:32
--- NOTE | 2019-01-02 18:00 | NUR ---
NURSE NOTES: Received D/C order. pt is stable. V/S stable. all discharge assessments and instructions done and pt verbally confirmed to understand all. all belongings checked with pt and all belongings are with pt. took picture from R ankle open wound and treatment done as order. pt's brother in law "Kemi" is aware of discharging. given report to DADA KHALIL in SNF. DON aware pt is using 2L/MIN O2 by NC. 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 will continue to monitor.
--- NOTE | 2019-01-02 18:22 | General Progress Note ---
Assessment/Plan Problem List: (1) Chest pain ICD Codes: R07.9 - Chest pain, unspecified SNOMED: 37309383 Qualifiers: Qualified Codes: R07.9 - Chest pain, unspecified (2) Emphysema lung ICD Codes: J43.9 - Emphysema, unspecified SNOMED: 53727365 (3) ACS (acute coronary syndrome) ICD Codes: I24.9 - Acute coronary syndrome SNOMED: 159171636 (4) CAD (coronary artery disease) ICD Codes: I25.10 - Atherosclerosis of coronary artery SNOMED: 561177836 (5) Peripheral vascular disease ICD Codes: I73.9 - Peripheral vascular disease, unspecified SNOMED: 691240828 (6) HTN (hypertension) ICD Codes: I10 - Hypertension SNOMED: 36705341 Status: stable Assessment/Plan chf improving no cp r/o acs copd cad reviewed chart and labs Subjective ROS Limited/Unobtainable: Yes Allergies: Coded Allergies: EGG (Verified Allergy, Unknown, 09/28/18) MEPERIDINE (Verified Allergy, Unknown, 09/28/18) MORPHINE (Verified Allergy, Unknown, 09/28/18) NITROGLYCERIN (Verified Allergy, Unknown, hives, 09/28/18) Objective Last 24 Hour Vital Signs Date Time Temp Pulse Resp B/P (MAP) Pulse Ox O2 Delivery O2 Flow Rate FiO2 01/02/19 17:08 97.4 01/02/19 15:57 97.4 73 18 126/66 (86) 98 01/02/19 13:09 Nasal Cannula 2.0 28 01/02/19 13:09 Nasal Cannula 2.0 28 01/02/19 12:54 97.9 120 20 135/65 (88) 93 01/02/19 09:19 106 20 96 Room Air 21 01/02/19 09:17 129/60 01/02/19 09:13 99 129/60 01/02/19 09:04 102 20 96 Room Air 21 01/02/19 09:00 Nasal Cannula 2.0 01/02/19 08:00 98.1 99 19 129/60 (83) 96 01/02/19 07:13 102 20 96 Room Air 21 01/02/19 07:06 98 20 92 Room Air 21 01/02/19 07:06 92 Room Air 21 01/02/19 07:06 Room Air 21 01/02/19 04:00 98.8 108 20 136/72 (93) 97 01/02/19 00:00 98.1 120 20 139/73 (95) 95 01/01/19 21:42 Nasal Cannula 2.0 28 01/01/19 21:41 Nasal Cannula 2.0 28 01/01/19 21:00 Nasal Cannula 2.0 01/01/19 20:00 97.1 118 18 98/59 (72) 96 01/01/19 19:34 114 20 97 Nasal Cannula 2.0 28 01/01/19 19:24 Nasal Cannula 2.0 28 01/01/19 19:23 93 Nasal Cannula 2.0 28 01/01/19 19:21 110 20 93 Nasal Cannula 2.0 28 Intake and Output 01/01/19 01/02/19 19:00 07:00 Intake Total 100 ml Output Total 800 ml 550 ml Balance -700 ml -550 ml Intake Oral 100 ml Output Urine Total 800 ml 550 ml Laboratory Tests 01/02/19 05:45: White Blood Count 13.3H, Red Blood Count 4.43L, Hemoglobin 11.2L, Hematocrit 36.5L, Mean Corpuscular Volume 82, Mean Corpuscular Hemoglobin 25.3L, Mean Corpuscular Hemoglobin Concent 30.7L, Red Cell Distribution Width 16.5H, Platelet Count 370, Mean Platelet Volume 6.2L, Neutrophils (%) (Auto) 67.6, Lymphocytes (%) (Auto) 11.0L, Monocytes (%) (Auto) 17.2H, Eosinophils (%) (Auto ) 3.3H, Basophils (%) (Auto) 0.9, Sodium Level 139, Potassium Level 5.4H, Chloride Level 104, Carbon Dioxide Level 26, Anion Gap 9, Blood Urea Nitrogen 32H, Creatinine 1.6H, Estimat Glomerular Filtration Rate 52.2, Glucose Level 72L , Calcium Level 8.7 01/02/19 17:05: Troponin I 0.036 Height (Feet): 6 Height (Inches): 1.00 Weight (Pounds): 130 Cardiovascular: regular rhythm Respiratory/Chest: lungs clear Abdomen: soft Brittny Dalton MD Jan 02, 2019 18:22
--- NOTE | 2019-01-02 19:22 | NUR ---
HAND-OFF: Report given to RN TRELL.still waiting for ambulance. called ambulance they stated will come around 1999.
--- NOTE | 2019-01-02 19:30 | NUR ---
NURSE NOTES: Received report from CHRISTOPHER Flannery. Patient A&Ox4, on 2L/min nasal cannula, no signs of distress or labored breathing. IV intact, patent, and saline locked. Bed in lowest position with call light in reach. Patient awaiting discharge.
--- NOTE | 2019-01-02 22:31 | NUR ---
NURSE NOTES: Patient has HR of 127. Notified MD twice, still waiting for response. Charge nurse aware and also tried to contact MD. Awaiting response.
--- NOTE | 2019-01-02 22:35 | General Progress Note ---
Assessment/Plan Problem List: (1) MDD (major depressive disorder), recurrent episode ICD Codes: F33.9 - Major depressive disorder, recurrent, unspecified SNOMED: 906528424 Assessment/Plan remeron 30mg po qhs provided ro/st Subjective 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: Reports: anxiety, depressed, emotional problems Allergies: Coded Allergies: EGG (Verified Allergy, Unknown, 09/28/18) MEPERIDINE (Verified Allergy, Unknown, 09/28/18) MORPHINE (Verified Allergy, Unknown, 09/28/18) NITROGLYCERIN (Verified Allergy, Unknown, hives, 09/28/18) Objective Last 24 Hour Vital Signs Date Time Temp Pulse Resp B/P (MAP) Pulse Ox O2 Delivery O2 Flow Rate FiO2 01/02/19 20:06 Room Air 21 01/02/19 20:05 124 Room Air 01/02/19 20:00 101.5 123 20 119/69 (86) 97 01/02/19 20:00 118 20 97 Room Air 01/02/19 20:00 93 Room Air 01/02/19 20:00 Room Air 01/02/19 19:50 117 20 95 Room Air 01/02/19 17:08 97.4 01/02/19 15:57 97.4 73 18 126/66 (86) 98 01/02/19 13:09 Nasal Cannula 2.0 28 01/02/19 13:09 Nasal Cannula 2.0 28 01/02/19 12:54 97.9 120 20 135/65 (88) 93 01/02/19 09:19 106 20 96 Room Air 01/02/19 09:17 129/60 01/02/19 09:13 99 129/60 01/02/19 09:04 102 20 96 Room Air 01/02/19 09:00 Nasal Cannula 2.0 01/02/19 08:00 98.1 99 19 129/60 (83) 96 01/02/19 07:13 102 20 96 Room Air 01/02/19 07:06 98 20 92 Room Air 01/02/19 07:06 92 Room Air 01/02/19 07:06 Room Air 01/02/19 04:00 98.8 108 20 136/72 (93) 97 01/02/19 00:00 98.1 120 20 139/73 (95) 95 Intake and Output 01/01/19 01/02/19 19:00 07:00 Intake Total 100 ml Output Total 800 ml 550 ml Balance -700 ml -550 ml Intake Oral 100 ml Output Urine Total 800 ml 550 ml Laboratory Tests 01/02/19 05:45: White Blood Count 13.3H, Red Blood Count 4.43L, Hemoglobin 11.2L, Hematocrit 36.5L, Mean Corpuscular Volume 82, Mean Corpuscular Hemoglobin 25.3L, Mean Corpuscular Hemoglobin Concent 30.7L, Red Cell Distribution Width 16.5H, Platelet Count 370, Mean Platelet Volume 6.2L, Neutrophils (%) (Auto) 67.6, Lymphocytes (%) (Auto) 11.0L, Monocytes (%) (Auto) 17.2H, Eosinophils (%) (Auto ) 3.3H, Basophils (%) (Auto) 0.9, Sodium Level 139, Potassium Level 5.4H, Chloride Level 104, Carbon Dioxide Level 26, Anion Gap 9, Blood Urea Nitrogen 32H, Creatinine 1.6H, Estimat Glomerular Filtration Rate 52.2, Glucose Level 72L , Calcium Level 8.7 01/02/19 17:05: Troponin I 0.036 Height (Feet): 6 Height (Inches): 1.00 Weight (Pounds): 130 General Appearance: no apparent distress, alert Neurologic: oriented x 3, responsive, depressed affect Rachael Buckley MD Jan 02, 2019 22:35
--- NOTE | 2019-01-02 22:40 | NUR ---
NURSE NOTES: Called MD cell phone and left a message. Still awaiting response.
--- NOTE | 2019-01-02 22:55 | NUR ---
NURSE NOTES: Charge nurse gave another number to call. Called and phone continued to ring with no answer.
--- NOTE | 2019-01-02 22:59 | NUR ---
NURSE NOTES: Tried calling MD on cell phone again. No answer, left message. Charge nurse aware.
--- NOTE | 2019-01-02 23:07 | NUR ---
NURSE NOTES: Contacted cover MD on case. Left message. Waiting for response.
--- NOTE | 2019-01-02 23:55 | NUR ---
NURSE NOTES: Contacted cover MD again. Patient HR decreased to 111. Notified MD for any order concerning medication or changing discharge. Waiting for response.
[2019-01-03] VITALS (7 sets, daily range): BP systolic 111–152; BP diastolic 57–75
[2019-01-03] MEDS: Albuterol/Ipratropium 3ml neb HHN PRN (07:10)
--- NOTE | 2019-01-03 07:49 | NUR ---
HAND-OFF: Report given to Harriet Pearson RN.
--- NOTE | 2019-01-03 07:50 | NUR ---
NURSE NOTES: Received patient from [facility].Patient is alert and oriented x4. Patient is complaining of throbbing chest pain and pulse is 119. Patient is calm and denies SOB. Patient states that " I usually have chest pain even when I was home.I just need pain med." Patient is allergic to NTG and patient also had pain meds about 1hour ago. V/S BP-123/59, pulse is 119, afebrile, o2sat is 94-95 % in room air.Dr. Magana was paged and RN also noticed that patient got PRN duoneb around 7:00am. Call light within reach. Bed is in lowest position and locked. Awaiting for return call.
--- NOTE | 2019-01-03 08:20 | NUR ---
NURSE NOTES: RN spoke to Dr. Magana and relayed patient's condition of throbbing chest pain and elevated pulse with V/S with new order to d/c duoneb, start xopenex Q4HR PRN, d/c theophylline. Read back and carried out. RN recommended EKG but Dr. Magana declined and RN asked to Dr. Magana about the discharge. Dr. Magana said to discharge patient when stable.Will continue to monitor.
[2019-01-03] MEDS ORDERED: Levalbuterol Inh UD 1.25mg/0.5ml HHN PRN ×2 (08:30→15:00)
--- NOTE | 2019-01-03 08:37 | Consultation ---
History of Present Illness General Date patient seen: Jan 03, 2019 Present Illness Allergies: Coded Allergies: EGG (Verified Allergy, Unknown, 09/28/18) MEPERIDINE (Verified Allergy, Unknown, 09/28/18) MORPHINE (Verified Allergy, Unknown, 09/28/18) NITROGLYCERIN (Verified Allergy, Unknown, hives, 09/28/18) Medication History Scheduled Amlodipine Besylate* (Amlodipine Besylate*), 10 MG ORAL DAILY, (Reported) Aspirin* (Aspirin*), 325 MG ORAL DAILY, (Reported) Atorvastatin Calcium* (Atorvastatin Calcium*), 20 MG ORAL BEDTIME, (Reported) Clopidogrel* (Clopidogrel*), 75 MG ORAL DAILY, (Reported) Docusate Sodium* (Docusate Sodium*), 100 MG ORAL TWICE A DAY, (Reported) Hydromorphone Hcl (Hydromorphone Hcl), 8 MG PO Q6HR, (Reported) Levetiracetam (Keppra), 500 MG ORAL DAILY, (Reported) Metoprolol Succinate* (Metoprolol Succinate*), 50 MG ORAL BID, (Reported) Mirtazapine (Remeron), 30 MG ORAL BEDTIME, (Reported) Mirtazapine (Remeron), 30 MG ORAL BEDTIME, (Reported) Mirtazapine* (Remeron*), 15 MG ORAL BEDTIME, (Reported) Prednisone* (Prednisone*), 20 MG ORAL DAILY, (Reported) Prednisone* (Prednisone*), 50 MG ORAL DAILY, (Reported) Theophylline (Theodur*), 100 MG ORAL EVERY 12 HOURS Theophylline (Theodur*), 100 MG ORAL EVERY 12 HOURS [dilaudid], 4 MG EVERY 6 HOURS Scheduled PRN Albuterol Sulfate (Ventolin Hfa), 1 PUFF INH EVERY 6 HOURS PRN Oxycodone Hcl* (Roxicodone*), 30 MG ORAL Q6H PRN for For Pain, (Reported) Patient History Healthcare decision maker Resuscitation status Full Code Advanced Directive on File Physical Exam Last 24 Hour Vital Signs Date Time Temp Pulse Resp B/P (MAP) Pulse Ox O2 Delivery O2 Flow Rate FiO2 01/03/19 08:00 98.6 119 20 123/59 (80) 94 01/03/19 07:18 101 20 96 Room Air 21 01/03/19 07:10 99 20 94 Room Air 21 01/03/19 07:10 Room Air 21 01/03/19 07:10 94 Room Air 21 01/03/19 04:00 98.9 103 20 124/66 (85) 93 01/03/19 00:38 98.4 01/03/19 00:00 98.4 111 21 111/57 (75) 93 01/02/19 21:24 99.8 01/02/19 21:00 Nasal Cannula 2.0 01/02/19 20:06 Room Air 21 01/02/19 20:05 124 Room Air 21 01/02/19 20:00 101.5 123 20 119/69 (86) 97 01/02/19 20:00 118 20 97 Room Air 01/02/19 20:00 93 Room Air 01/02/19 20:00 Room Air 01/02/19 19:50 117 20 95 Room Air 01/02/19 15:57 97.4 73 18 126/66 (86) 98 01/02/19 13:09 Nasal Cannula 2.0 28 01/02/19 13:09 Nasal Cannula 2.0 28 01/02/19 12:54 97.9 120 20 135/65 (88) 93 01/02/19 09:19 106 20 96 Room Air 21 01/02/19 09:17 129/60 01/02/19 09:13 99 129/60 01/02/19 09:04 102 20 96 Room Air 01/02/19 09:00 Nasal Cannula 2.0 Intake and Output 01/02/19 01/03/19 18:59 06:59 Intake Total 600 ml 480 ml Output Total 50 ml Balance 600 ml 430 ml Intake Oral 480 ml Other 600 ml Output Urine Total 50 ml Laboratory Tests Test 01/02/19 17:05 Troponin I 0.036 ng/mL (0.000-0.056) Height (Feet): 6 Height (Inches): 1.00 Weight (Pounds): 130 Medications Current Medications Medications (Trade) Dose Ordered Sig/Aminata Route PRN Reason Start Time Stop Time Status Last Admin Dose Admin Acetaminophen (Tylenol) 650 mg Q6H PRN ORAL Mild Pain/Temp > 100.5 12/31/18 05:00 01/30/19 04:59 01/02/19 20:54 Acetylcysteine (Mucomyst) 100 mg TIDRT HHN 12/30/18 22:30 01/26/19 12:59 01/03/19 07:10 Amlodipine Besylate (Norvasc) 10 mg DAILY ORAL 12/31/18 09:00 01/21/19 08:59 01/02/19 09:13 Budesonide (Pulmicort) 0.25 mg EVERY 12 HOURS HHN 12/30/18 22:30 01/26/19 20:59 01/02/19 09:04 Clopidogrel Bisulfate (Plavix) 75 mg DAILY ORAL 12/31/18 09:00 01/21/19 08:59 01/02/19 09:13 Dextrose (Dextrose 50%) 25 ml Q30M PRN IV Hypoglycemia 12/30/18 22:30 01/21/19 07:29 Dextrose (Dextrose 50%) 50 ml Q30M PRN IV Hypoglycemia 12/30/18 22:30 01/21/19 07:29 Heparin Sodium (Porcine) (Heparin 5000 units/ml) 5,000 units EVERY 12 HOURS SUBQ 12/30/18 22:30 01/21/19 08:59 01/02/19 21:00 Hydromorphone HCl (Dilaudid) 3 mg Q3H PRN IVP Severe Pain (Pain Scale 7-10) 12/31/18 05:49 01/07/19 05:48 01/03/19 06:25 Levalbuterol HCl (Xopenex) 1.25 mg Q4H PRN HHN Shortness of Breath 01/03/19 08:30 01/08/19 08:29 Levetiracetam (Keppra) 250 mg Q12HR ORAL 12/31/18 09:00 01/30/19 08:59 01/02/19 20:54 Lisinopril (Zestril) 10 mg DAILY ORAL 12/31/18 09:00 01/25/19 08:59 01/02/19 09:17 Mirtazapine (Remeron) 30 mg BEDTIME ORAL 12/31/18 21:00 01/23/19 20:59 01/02/19 20:54 Ondansetron HCl (Zofran) 4 mg Q6H PRN IVP Nausea & Vomiting 12/31/18 01:30 01/21/19 07:29 Adonis Lozoya MD Jan 03, 2019 08:37
--- NOTE | 2019-01-03 08:48 | Consultation ---
History of Present Illness General Chief Complaint: Chest Pain Reason for Consultation: Leukocytosis Present Illness HPI Mr. Ring is a 68 yo male with PMHx of COPD and CHF who presented to the ED on with CP, SOB, N/V but no diarrhea. He was treated for COPD with Zosyna and Steroids. He developed a leukocytosis after starting the steroids. He is now on RA with mild leukocytosis. Sputum CX grew NF. He has no new complaints and his N/V have resolved. He still reports some CP. ID consulted for leukocytosis PMHx/PSHx COPD CHF HTN CAD - s/p CABG SocHx No E/D Active smoker FamHx Not contributory Allergies: Coded Allergies: EGG (Verified Allergy, Unknown, 09/28/18) MEPERIDINE (Verified Allergy, Unknown, 09/28/18) MORPHINE (Verified Allergy, Unknown, 09/28/18) NITROGLYCERIN (Verified Allergy, Unknown, hives, 09/28/18) Medication History Scheduled Amlodipine Besylate* (Amlodipine Besylate*), 10 MG ORAL DAILY, (Reported) Aspirin* (Aspirin*), 325 MG ORAL DAILY, (Reported) Atorvastatin Calcium* (Atorvastatin Calcium*), 20 MG ORAL BEDTIME, (Reported) Clopidogrel* (Clopidogrel*), 75 MG ORAL DAILY, (Reported) Docusate Sodium* (Docusate Sodium*), 100 MG ORAL TWICE A DAY, (Reported) Hydromorphone Hcl (Hydromorphone Hcl), 8 MG PO Q6HR, (Reported) Levetiracetam (Keppra), 500 MG ORAL DAILY, (Reported) Metoprolol Succinate* (Metoprolol Succinate*), 50 MG ORAL BID, (Reported) Mirtazapine (Remeron), 30 MG ORAL BEDTIME, (Reported) Mirtazapine (Remeron), 30 MG ORAL BEDTIME, (Reported) Mirtazapine* (Remeron*), 15 MG ORAL BEDTIME, (Reported) Prednisone* (Prednisone*), 20 MG ORAL DAILY, (Reported) Prednisone* (Prednisone*), 50 MG ORAL DAILY, (Reported) Theophylline (Theodur*), 100 MG ORAL EVERY 12 HOURS Theophylline (Theodur*), 100 MG ORAL EVERY 12 HOURS [dilaudid], 4 MG EVERY 6 HOURS Scheduled PRN Albuterol Sulfate (Ventolin Hfa), 1 PUFF INH EVERY 6 HOURS PRN Oxycodone Hcl* (Roxicodone*), 30 MG ORAL Q6H PRN for For Pain, (Reported) Patient History Healthcare decision maker Resuscitation status Full Code Advanced Directive on File Review of Systems ROS Narrative 12 point ROS negative except as note in the HPI. Physical Exam Last 24 Hour Vital Signs Date Time Temp Pulse Resp B/P (MAP) Pulse Ox O2 Delivery O2 Flow Rate FiO2 01/03/19 08:00 98.6 119 20 123/59 (80) 94 01/03/19 07:18 101 20 96 Room Air 21 01/03/19 07:10 99 20 94 Room Air 21 01/03/19 07:10 Room Air 21 01/03/19 07:10 94 Room Air 21 01/03/19 04:00 98.9 103 20 124/66 (85) 93 01/03/19 00:38 98.4 01/03/19 00:00 98.4 111 21 111/57 (75) 93 01/02/19 21:24 99.8 01/02/19 21:00 Nasal Cannula 2.0 01/02/19 20:06 Room Air 21 01/02/19 20:05 124 Room Air 21 01/02/19 20:00 101.5 123 20 119/69 (86) 97 01/02/19 20:00 118 20 97 Room Air 21 01/02/19 20:00 93 Room Air 21 01/02/19 20:00 Room Air 21 01/02/19 19:50 117 20 95 Room Air 21 01/02/19 15:57 97.4 73 18 126/66 (86) 98 01/02/19 13:09 Nasal Cannula 2.0 28 01/02/19 13:09 Nasal Cannula 2.0 28 01/02/19 12:54 97.9 120 20 135/65 (88) 93 01/02/19 09:19 106 20 96 Room Air 21 01/02/19 09:17 129/60 01/02/19 09:13 99 129/60 01/02/19 09:04 102 20 96 Room Air 21 01/02/19 09:00 Nasal Cannula 2.0 Intake and Output 01/02/19 01/03/19 18:59 06:59 Intake Total 600 ml 480 ml Output Total 50 ml Balance 600 ml 430 ml Intake Oral 480 ml Other 600 ml Output Urine Total 50 ml Laboratory Tests Test 01/02/19 17:05 Troponin I 0.036 ng/mL (0.000-0.056) Height (Feet): 6 Height (Inches): 1.00 Weight (Pounds): 130 Medications Current Medications Medications (Trade) Dose Ordered Sig/Aminata Route PRN Reason Start Time Stop Time Status Last Admin Dose Admin Acetaminophen (Tylenol) 650 mg Q6H PRN ORAL Mild Pain/Temp > 100.5 12/31/18 05:00 01/30/19 04:59 01/02/19 20:54 Acetylcysteine (Mucomyst) 100 mg TIDRT HHN 12/30/18 22:30 01/26/19 12:59 01/03/19 07:10 Amlodipine Besylate (Norvasc) 10 mg DAILY ORAL 12/31/18 09:00 01/21/19 08:59 01/02/19 09:13 Budesonide (Pulmicort) 0.25 mg EVERY 12 HOURS HHN 12/30/18 22:30 01/26/19 20:59 01/02/19 09:04 Clopidogrel Bisulfate (Plavix) 75 mg DAILY ORAL 12/31/18 09:00 01/21/19 08:59 01/02/19 09:13 Dextrose (Dextrose 50%) 25 ml Q30M PRN IV Hypoglycemia 12/30/18 22:30 01/21/19 07:29 Dextrose (Dextrose 50%) 50 ml Q30M PRN IV Hypoglycemia 12/30/18 22:30 01/21/19 07:29 Heparin Sodium (Porcine) (Heparin 5000 units/ml) 5,000 units EVERY 12 HOURS SUBQ 12/30/18 22:30 01/21/19 08:59 01/02/19 21:00 Hydromorphone HCl (Dilaudid) 3 mg Q3H PRN IVP Severe Pain (Pain Scale 7-10) 12/31/18 05:49 01/07/19 05:48 01/03/19 06:25 Levalbuterol HCl (Xopenex) 1.25 mg Q4H PRN HHN Shortness of Breath 01/03/19 08:30 01/08/19 08:29 Levetiracetam (Keppra) 250 mg Q12HR ORAL 12/31/18 09:00 01/30/19 08:59 01/02/19 20:54 Lisinopril (Zestril) 10 mg DAILY ORAL 12/31/18 09:00 01/25/19 08:59 01/02/19 09:17 Mirtazapine (Remeron) 30 mg BEDTIME ORAL 12/31/18 21:00 01/23/19 20:59 01/02/19 20:54 Ondansetron HCl (Zofran) 4 mg Q6H PRN IVP Nausea & Vomiting 12/31/18 01:30 01/21/19 07:29 Objective Narrative Gen: NAD, well appearing, alert HEENT: NCAT, MMM, EOMI, PERRL, No Oral lesion, no scleral icterus NECK: full range of motion, supple, no meningismus, No LAD, No JVD LUNGS: CTAB, No W/C, No Accessory muscle use CARDS: RRR, S1, S2, No M/R/G, ABD: Soft, NT, ND, No R/G, + BS, No HSM, No Masses : Deferred Ext: right ankle with two shallow ulcers, No surrounding erythema no purulence , Pulses 2+ B/L (DP, Rad): NEURO: A/O x 4, Strength and Sensation Grossly intact PSYCH: Mood/affect normal SKIN: Warm/dry, No rashes Assessment/Plan Assessment/Plan 68 yo male with PMHx of COPD and CHF who presented to the ED on 12/21/18 with CP , SOB, N/V but no diarrhea. Leukocytosis Still suspect steroids - Last use 12/30/18 Will get UA to r/o UTI but would monitor one more day to see if the increase is anomalous COPD Exacerbation S/P Tx with Abx and Steroids Right ankle ulcers Do not appear to be infected. N/V - Resolved CHF HTN Hx of CAD - s/p CABG Plan - get UA and Cx - Hold off on abx - 12/25/18 S/P Zosyn #4 - f/u CBC Thank you for this consult. We will continue to follow the patient during this hospitalization. Adonis Lozoya MD Jan 03, 2019 08:48
[2019-01-03] MEDS: Heparin 5000 units/ml inj SUBQ SCH ×2 (09:00→21:00)
[2019-01-03] MEDS: Lisinopril 10mg tab ORAL SCH (09:29)
[2019-01-03] MEDS: Budesonide HHN 0.25mg/2ml ud HHN SCH (09:31)
--- NOTE | 2019-01-03 09:54 | NUR ---
DISCHARGE DISPOSITION: PLEASE READ PATIENT TO BE DISCHARGED TO [facility] [address] [facility] [address] T: [phone]>>> CALL [facility] FOR REPORT [facility] ETA 1300 TRANSFER REPORT PROVIDED. SKILLED
--- NOTE | 2019-01-03 09:54 | NUR ---
NURSE NOTES: RN rechecked temp. Temp is 100.6 oral. Patient's pulse is still 119. RN informed ID doctor Constable and relayed episodes of 101.5 last night and 100.6 now. Denies coughing, congestion or wheezing with new order to do blood culture, UA ,urine culture, start ceftriaxone 1gm Q24hr, vancomycin pharmacy to dose. RN relayed cr of 1.6 as of yesterday. Order read back and carried out. Will continue to monitor. Addendum: 01/03/19 at 1028 by CRISTINA SOLORZANO RN temp is 100.9
--- NOTE | 2019-01-03 09:58 | NUR ---
NURSE NOTES: Cooling measure done. Will continue to monitor.
--- NOTE | 2019-01-03 10:43 | NUR ---
CHARGE NURSE NOTES: EKG done. showed Sinus Tachycardia. Dr. Ivory made aware. With no new orders at this time. Patient also seen by Dr. Lozoya. with ATBs order.
[2019-01-03] MEDS ORDERED: cefTRIAXone 1 GM in D5W 55 ML IVPB SCH (11:00)
--- NOTE | 2019-01-03 11:00 | NUR ---
NURSE NOTES: Dr. Tracey made aware of patient's condition.
--- NOTE | 2019-01-03 11:20 | NUR ---
NURSE NOTES: Received order from Dr. Magana to transfer patient to tele.
[2019-01-03] MEDS ORDERED: Vancomycin 1250mg/D5W 275ml IVPB ONE (12:00)
--- NOTE | 2019-01-03 13:20 | NUR ---
NURSE NOTES: Transferred patient to room 209-1 and hand off to [facility]. Transferred patient safely. All the belongings were brought to 2E. Patient refused RN check the belongings " I do not worry about my belongings. I do not have brewer or cards." Patient also refused to be cleaned prior to transfer and said " I will do it when I go to 2nd floor. Do not worry about it. I will do the urine thing,also." RN explained the risks and benefits but patient refused x3. Dr. Lozoya aware of not collecting urine specimen. He said ok to start antibiotics now. IV intact. Picture taken from Right ankle and dressing changed.Endorsed to [facility] to hang IV Vanco and collect urine specimen for UA and culture.
--- NOTE | 2019-01-03 13:36 | NUR ---
NURSE NOTES: Received report from Harriet Pearson RN. Patient transferred from [facility] via hospital bed, patient refused to check belongings with RNs. Belongings in basing checked. 2 reading glasses, headphone, watch, 1 black phone, 1 white software design analyst, wallet, umbrella, headphones, TV 32'', 2 black bag, 1 green bag, shirt checked with RN. advertising account representative on, no active s/s cardiac, respiratory distress noticed at this time. Bed in lowest position, side rails up x2, call light within reach. ST with HR 117. AO x4. Will continue to monitor.
--- NOTE | 2019-01-03 14:24 | Cardiology Progress Note ---
Assessment/Plan Problem List: (1) Chest pain (2) Acute and chronic respiratory failure (3) MDD (major depressive disorder), recurrent episode (4) HTN (hypertension) (5) Chronic ulcer of right leg Status: stable, not improved Status Narrative Pt w/fever to 100.9 today, ? new infection Sinus tachycardia - likely due to metabolic factors. Renal function is worsening and he is hyperkalemic today, w/ K 5.4 He c/o CP, but no objective evidence for ischemia, and he is s/p CABG Assessment/Plan Check cultures, XR Empiric iv antibiotics per primary team. His QUINTEN inhibitor will be stopped, in view of declining renal function and hyperkalemia. Labs will be rechecked. May need kayexelate if K continues to increase. Continue plavix, ? asa, statin ECHO will be obtained to evaluate LV function, valves. Subjective ROS Limited/Unobtainable: No Subjective Cardiology for Dr. Anaya Pt was transferred to telemetry today for fever, tachycardia. Reports multiple symptoms- CP, dyspnea, n/v - unreliable historian Objective Last 24 Hour Vital Signs Date Time Temp Pulse Resp B/P (MAP) Pulse Ox O2 Delivery O2 Flow Rate FiO2 01/03/19 13:40 Nasal Cannula 2.0 28 01/03/19 13:40 Nasal Cannula 2.0 28 01/03/19 12:00 99.0 118 19 130/62 (84) 94 01/03/19 09:53 100.9 119 18 133/75 (94) 94 01/03/19 09:41 118 20 96 Room Air 21 01/03/19 09:31 118 20 96 Room Air 21 01/03/19 09:29 133/75 01/03/19 09:29 118 133/75 01/03/19 09:00 Nasal Cannula 2.0 01/03/19 08:00 98.6 119 20 123/59 (80) 94 01/03/19 07:18 101 20 96 Room Air 21 01/03/19 07:10 99 20 94 Room Air 21 01/03/19 07:10 Room Air 21 01/03/19 07:10 94 Room Air 21 01/03/19 04:00 98.9 103 20 124/66 (85) 93 01/03/19 00:38 98.4 01/03/19 00:00 98.4 111 21 111/57 (75) 93 01/02/19 21:24 99.8 01/02/19 21:00 Nasal Cannula 2.0 01/02/19 20:06 Room Air 21 01/02/19 20:05 124 Room Air 21 01/02/19 20:00 101.5 123 20 119/69 (86) 97 01/02/19 20:00 118 20 97 Room Air 21 01/02/19 20:00 93 Room Air 21 01/02/19 20:00 Room Air 21 01/02/19 19:50 117 20 95 Room Air 21 01/02/19 15:57 97.4 73 18 126/66 (86) 98 General Appearance: WD/WN, alert EENT: PERRL/EOMI Neck: non-tender, supple Rhythm: ST Cardiovascular: regular rhythm, no gallop/murmur, tachycardia Respiratory/Chest: other - occ rhonchi bilat Abdomen: non tender, soft Extremities: no swelling Intake and Output 01/02/19 01/03/19 19:00 07:00 Intake Total 600 ml 480 ml Output Total 50 ml Balance 600 ml 430 ml Intake Oral 480 ml Other 600 ml Output Urine Total 50 ml Laboratory Tests Test 01/02/19 17:05 Troponin I 0.036 ng/mL (0.000-0.056) Citlalli Ivory MD Jan 03, 2019 14:24
[2019-01-03 14:34] LABS: APPEARANCE,URINE CLEAR; BILIRUBIN, URINE NEGATIVE (NEGATIVE); GLUCOSE, URINE (UA) NEGATIVE (NEGATIVE); KETONES,URINE 1+ (NEGATIVE); LEUKOCYTE ESTERASE ,URINE NEGATIVE (NEGATIVE); NITRITE,URINE NEGATIVE (NEGATIVE); PH,URINE 5 (4.5-8.0); PROTEIN,URINE 2+ (NEGATIVE); UROBILINOGEN,URINE 1 MG/DL (0.0-1.0)
[2019-01-03 14:43] LABS: COLOR,URINE YELLOW
--- NOTE | 2019-01-03 16:12 | NUR ---
PT Note No treatment given. Patient has been transferred to telemetry due to sinus tachycardia. Will need a new order to continue with physical therapy.
--- NOTE | 2019-01-03 19:42 | NUR ---
HAND-OFF: Report given to CHRISTOPHER Hugo.
--- NOTE | 2019-01-03 19:50 | NUR ---
NURSE NOTES: Received pt from CHRISTOPHER Simmons. Pt awake, alert, and asking for next dose of dilaudid. Bed in lowest position. Call light within reach. Will continue to monitor
--- NOTE | 2019-01-03 20:17 | Pulmonology Progress Note ---
Assessment/Plan Problems: (1) COPD exacerbation (2) Acute bronchitis (3) Hypothyroidism (4) CAD (coronary artery disease) (5) Severe protein-calorie malnutrition (6) Chronic ulcer of right leg Assessment/Plan episodes of chest pain no new complains renal f/u respiratory treatment wound care Subjective ROS Limited/Unobtainable: No Constitutional: Reports: no symptoms HEENT: Repors: no symptoms Allergies: Coded Allergies: EGG (Verified Allergy, Unknown, 09/28/18) MEPERIDINE (Verified Allergy, Unknown, 09/28/18) MORPHINE (Verified Allergy, Unknown, 09/28/18) NITROGLYCERIN (Verified Allergy, Unknown, hives, 09/28/18) Objective Last 24 Hour Vital Signs Date Time Temp Pulse Resp B/P (MAP) Pulse Ox O2 Delivery O2 Flow Rate FiO2 01/03/19 16:00 124 01/03/19 16:00 100.3 121 20 152/69 (96) 98 01/03/19 13:40 Nasal Cannula 2.0 28 01/03/19 13:40 Nasal Cannula 2.0 28 01/03/19 12:00 99.0 118 19 130/62 (84) 94 01/03/19 09:53 100.9 119 18 133/75 (94) 94 01/03/19 09:41 118 20 96 Room Air 21 01/03/19 09:31 118 20 96 Room Air 21 01/03/19 09:29 133/75 01/03/19 09:29 118 133/75 01/03/19 09:00 Nasal Cannula 2.0 01/03/19 08:00 98.6 119 20 123/59 (80) 94 01/03/19 07:18 101 20 96 Room Air 21 01/03/19 07:10 99 20 94 Room Air 21 01/03/19 07:10 Room Air 21 01/03/19 07:10 94 Room Air 21 01/03/19 04:00 98.9 103 20 124/66 (85) 93 01/03/19 00:38 98.4 01/03/19 00:00 98.4 111 21 111/57 (75) 93 01/02/19 21:24 99.8 01/02/19 21:00 Nasal Cannula 2.0 Intake and Output 01/02/19 01/03/19 19:00 07:00 Intake Total 600 ml 480 ml Output Total 50 ml Balance 600 ml 430 ml Intake Oral 480 ml Other 600 ml Output Urine Total 50 ml Objective General Appearance: cachectic HEENT: normocephalic Respiratory/Chest: chest wall non-tender, lungs clear, decrease breath sounds Cardiovascular: normal peripheral pulses, normal rate Abdomen: normal bowel sounds, soft, non tender Extremities: no cyanosis Skin: no rash Laboratory Tests 01/03/19 14:10: Urine Color Yellow, Urine Appearance Clear, Urine pH 5, Urine Specific [place] 1.015, Urine Protein 2+H, Urine Glucose (UA) Negative, Urine Ketones 1+H, Urine Blood Negative, Urine Nitrite Negative, Urine Bilirubin Negative, Urine Urobilinogen 1H, Urine Leukocyte Esterase Negative, Urine RBC 0, Urine WBC 0-2, Urine Squamous Epithelial Cells None, Urine Bacteria Few Current Medications Medications (Trade) Dose Ordered Sig/Aminata Route PRN Reason Start Time Stop Time Status Last Admin Dose Admin Acetaminophen (Tylenol) 650 mg Q6H PRN ORAL Mild Pain/Temp > 100.5 01/03/19 16:00 01/30/19 15:59 Acetylcysteine (Mucomyst) 100 mg TIDRT N 01/03/19 19:00 01/26/19 12:59 Amlodipine Besylate (Norvasc) 10 mg DAILY ORAL 01/04/19 09:00 01/21/19 08:59 Budesonide (Pulmicort) 0.25 mg Q12HRT N 01/03/19 22:00 02/02/19 21:59 Ceftriaxone Sodium 1 gm/ Dextrose 55 ml @ 110 mls/hr DAILY IVPB 01/04/19 09:00 01/10/19 10:59 Clopidogrel Bisulfate (Plavix) 75 mg DAILY ORAL 01/04/19 09:00 01/21/19 08:59 Dextrose (Dextrose 50%) 25 ml Q30M PRN IV Hypoglycemia 01/03/19 15:30 01/21/19 07:29 Dextrose (Dextrose 50%) 50 ml Q30M PRN IV Hypoglycemia 01/03/19 15:30 01/21/19 07:29 Heparin Sodium (Porcine) (Heparin 5000 units/ml) 5,000 units EVERY 12 HOURS SUBQ 01/03/19 21:00 01/21/19 08:59 Hydromorphone HCl (Dilaudid) 3 mg Q3H PRN IVP Severe Pain (Pain Scale 7-10) 01/03/19 15:30 01/07/19 15:29 01/03/19 18:52 Levalbuterol HCl (Xopenex) 1.25 mg Q4H PRN HHN Shortness of Breath 01/03/19 15:30 01/08/19 15:29 Levetiracetam (Keppra) 250 mg Q12HR ORAL 01/03/19 21:00 01/30/19 08:59 Mirtazapine (Remeron) 30 mg BEDTIME ORAL 01/03/19 21:00 01/23/19 20:59 Ondansetron HCl (Zofran) 4 mg Q6H PRN IVP Nausea & Vomiting 01/03/19 15:30 01/21/19 15:29 Vancomycin HCl (Vanco rx to dose) 1 ea DAILY PRN MISC Per rx protocol 01/03/19 15:30 02/02/19 15:29 Vancomycin HCl 750 mg/Sodium Chloride 275 ml @ 183.333 mls/hr Q24H IVPB 01/04/19 12:00 01/09/19 11:59 Jessie Magana MD Jan 03, 2019 20:17
[2019-01-03] MEDS: Levalbuterol Inh UD 1.25mg/0.5ml HHN PRN (20:43)
[2019-01-03] MEDS ORDERED: Heparin 5000 units/ml inj SUBQ SCH (21:00)
--- NOTE | 2019-01-03 21:07 | General Progress Note ---
Assessment/Plan Problem List: (1) Chest pain ICD Codes: R07.9 - Chest pain, unspecified SNOMED: 08208621 Qualifiers: Qualified Codes: R07.9 - Chest pain, unspecified (2) Emphysema lung ICD Codes: J43.9 - Emphysema, unspecified SNOMED: 64147435 (3) ACS (acute coronary syndrome) ICD Codes: I24.9 - Acute coronary syndrome SNOMED: 890367592 (4) CAD (coronary artery disease) ICD Codes: I25.10 - Atherosclerosis of coronary artery SNOMED: 581172141 (5) Peripheral vascular disease ICD Codes: I73.9 - Peripheral vascular disease, unspecified SNOMED: 061281746 (6) HTN (hypertension) ICD Codes: I10 - Hypertension SNOMED: 90507910 Status: progressing Assessment/Plan no fever no sob no cp r/o acs copd exac cad no wheezing Subjective ROS Limited/Unobtainable: Yes Allergies: Coded Allergies: EGG (Verified Allergy, Unknown, 09/28/18) MEPERIDINE (Verified Allergy, Unknown, 09/28/18) MORPHINE (Verified Allergy, Unknown, 09/28/18) NITROGLYCERIN (Verified Allergy, Unknown, hives, 09/28/18) Objective Last 24 Hour Vital Signs Date Time Temp Pulse Resp B/P (MAP) Pulse Ox O2 Delivery O2 Flow Rate FiO2 01/03/19 20:41 102 20 97 Room Air 21 01/03/19 20:38 Room Air 21 01/03/19 20:38 110 20 92 Room Air 21 01/03/19 20:38 92 Room Air 21 01/03/19 16:00 124 01/03/19 16:00 100.3 121 20 152/69 (96) 98 01/03/19 13:40 Nasal Cannula 2.0 28 01/03/19 13:40 Nasal Cannula 2.0 28 01/03/19 12:00 99.0 118 19 130/62 (84) 94 01/03/19 09:53 100.9 119 18 133/75 (94) 94 01/03/19 09:41 118 20 96 Room Air 21 01/03/19 09:31 118 20 96 Room Air 21 01/03/19 09:29 133/75 01/03/19 09:29 118 133/75 01/03/19 09:00 Nasal Cannula 2.0 01/03/19 08:00 98.6 119 20 123/59 (80) 94 01/03/19 07:18 101 20 96 Room Air 21 01/03/19 07:10 99 20 94 Room Air 21 01/03/19 07:10 Room Air 21 01/03/19 07:10 94 Room Air 21 01/03/19 04:00 98.9 103 20 124/66 (85) 93 01/03/19 00:38 98.4 01/03/19 00:00 98.4 111 21 111/57 (75) 93 01/02/19 21:24 99.8 Intake and Output 01/02/19 01/03/19 19:00 07:00 Intake Total 600 ml 480 ml Output Total 50 ml Balance 600 ml 430 ml Intake Oral 480 ml Other 600 ml Output Urine Total 50 ml Laboratory Tests 01/03/19 14:10: Urine Color Yellow, Urine Appearance Clear, Urine pH 5, Urine Specific [place] 1.015, Urine Protein 2+H, Urine Glucose (UA) Negative, Urine Ketones 1+H, Urine Blood Negative, Urine Nitrite Negative, Urine Bilirubin Negative, Urine Urobilinogen 1H, Urine Leukocyte Esterase Negative, Urine RBC 0, Urine WBC 0-2, Urine Squamous Epithelial Cells None, Urine Bacteria Few Height (Feet): 6 Height (Inches): 1.00 Weight (Pounds): 130 Cardiovascular: normal rate Respiratory/Chest: lungs clear Abdomen: soft Brittny Dalton MD Jan 03, 2019 21:07
--- NOTE | 2019-01-03 21:46 | General Progress Note ---
Assessment/Plan Problem List: (1) MDD (major depressive disorder), recurrent episode ICD Codes: F33.9 - Major depressive disorder, recurrent, unspecified SNOMED: 948641858 Assessment/Plan remeron 30mg po qhs provided ro/st Subjective 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: Reports: anxiety, depressed, emotional problems Allergies: Coded Allergies: EGG (Verified Allergy, Unknown, 09/28/18) MEPERIDINE (Verified Allergy, Unknown, 09/28/18) MORPHINE (Verified Allergy, Unknown, 09/28/18) NITROGLYCERIN (Verified Allergy, Unknown, hives, 09/28/18) Objective Last 24 Hour Vital Signs Date Time Temp Pulse Resp B/P (MAP) Pulse Ox O2 Delivery O2 Flow Rate FiO2 01/03/19 20:41 102 20 97 Room Air 21 01/03/19 20:38 Room Air 21 01/03/19 20:38 110 20 92 Room Air 21 01/03/19 20:38 92 Room Air 21 01/03/19 16:00 124 01/03/19 16:00 100.3 121 20 152/69 (96) 98 01/03/19 13:40 Nasal Cannula 2.0 28 01/03/19 13:40 Nasal Cannula 2.0 28 01/03/19 12:00 99.0 118 19 130/62 (84) 94 01/03/19 09:53 100.9 119 18 133/75 (94) 94 01/03/19 09:41 118 20 96 Room Air 21 01/03/19 09:31 118 20 96 Room Air 21 01/03/19 09:29 133/75 01/03/19 09:29 118 133/75 01/03/19 09:00 Nasal Cannula 2.0 01/03/19 08:00 98.6 119 20 123/59 (80) 94 01/03/19 07:18 101 20 96 Room Air 21 01/03/19 07:10 99 20 94 Room Air 21 01/03/19 07:10 Room Air 21 01/03/19 07:10 94 Room Air 21 01/03/19 04:00 98.9 103 20 124/66 (85) 93 01/03/19 00:38 98.4 01/03/19 00:00 98.4 111 21 111/57 (75) 93 Intake and Output 01/02/19 01/03/19 19:00 07:00 Intake Total 600 ml 480 ml Output Total 50 ml Balance 600 ml 430 ml Intake Oral 480 ml Other 600 ml Output Urine Total 50 ml Laboratory Tests 01/03/19 14:10: Urine Color Yellow, Urine Appearance Clear, Urine pH 5, Urine Specific [place] 1.015, Urine Protein 2+H, Urine Glucose (UA) Negative, Urine Ketones 1+H, Urine Blood Negative, Urine Nitrite Negative, Urine Bilirubin Negative, Urine Urobilinogen 1H, Urine Leukocyte Esterase Negative, Urine RBC 0, Urine WBC 0-2, Urine Squamous Epithelial Cells None, Urine Bacteria Few Height (Feet): 6 Height (Inches): 1.00 Weight (Pounds): 130 General Appearance: no apparent distress, alert Neurologic: oriented x 3, responsive, depressed affect Rachael Buckley MD Jan 03, 2019 21:46
[2019-01-03] MEDS ORDERED: Budesonide HHN 0.25mg/2ml ud HHN SCH (22:00)
[2019-01-04] VITALS: BP 136/64
[2019-01-04] MEDS: Budesonide HHN 0.25mg/2ml ud HHN SCH ×3 (00:06→22:22)
[2019-01-04 04:00] VITALS: BP 132/64
[2019-01-04] MEDS: Levalbuterol Inh UD 1.25mg/0.5ml HHN PRN ×3 (07:24→22:21)
[2019-01-04 08:00] VITALS: BP 122/60
[2019-01-04] MEDS ORDERED: Lisinopril 10mg tab ORAL SCH (09:00)
[2019-01-04] MEDS: Heparin 5000 units/ml inj SUBQ SCH ×2 (09:00→21:00)
[2019-01-04] MEDS: cefTRIAXone 1 GM in D5W 55 ML IVPB SCH ×3 (09:00→13:18)
[2019-01-04] MEDS ORDERED: cefTRIAXone 1 GM in D5W 55 ML IVPB SCH (09:00)
--- NOTE | 2019-01-04 11:33 | Infectious Diseases Prog Note ---
Assessment/Plan Assessment/Plan 68 yo male with PMHx of COPD and CHF who presented to the ED on 12/21/18 with CP , SOB, N/V but no diarrhea. Leukocytosis, no CBC today Still suspect steroids - Last use 12/30/1801/03 u/a neg COPD Exacerbation -12/28 CXR: Slightly increasing interstitial markings bilaterally may be reflective developing mild interstitial edema or pneumonitis. Correlate clinically S/P Tx with Abx and Steroids Right ankle ulcers Do not appear to be infected. N/V - Resolved CHF HTN Hx of CAD - s/p CABG Plan - Noticed Abx re-initiated, currently on IV Vancomycin and Ceftriaxone #2 - Bcx x2, CBC, CMP, CXR am - 12/25/18 S/P Zosyn #4 - f/u CBC -Cdiff if diarrhea Thank you for this consult. We will continue to follow the patient during this hospitalization. Subjective Allergies: Coded Allergies: EGG (Verified Allergy, Unknown, 09/28/18) MEPERIDINE (Verified Allergy, Unknown, 09/28/18) MORPHINE (Verified Allergy, Unknown, 09/28/18) NITROGLYCERIN (Verified Allergy, Unknown, hives, 09/28/18) Subjective afebrile >24hrs no cbc since 01/02, now off steroids abx re-started u/a neg Objective Vital Signs Last 24 Hour Vital Signs Date Time Temp Pulse Resp B/P (MAP) Pulse Ox O2 Delivery O2 Flow Rate FiO2 01/04/19 09:20 111 108/57 01/04/19 09:00 Nasal Cannula 2.0 01/04/19 08:00 97.5 87 20 122/60 (80) 96 01/04/19 07:57 80 20 21 01/04/19 07:37 112 20 89 Nasal Cannula 2.0 28 01/04/19 07:37 112 20 89 Nasal Cannula 2.0 28 01/04/19 07:29 110 14 90 Nasal Cannula 2.0 28 01/04/19 07:29 110 14 90 Nasal Cannula 2.0 28 01/04/19 07:29 Nasal Cannula 2.0 21 01/04/19 07:29 90 Nasal Cannula 2.0 28 01/04/19 04:00 136 01/04/19 04:00 97.5 118 18 132/64 (86) 94 01/04/19 00:12 115 20 95 Room Air 21 01/04/19 00:04 113 20 78 Room Air 21 01/04/19 00:00 98.3 122 19 136/64 (88) 93 01/04/19 00:00 120 01/03/19 21:00 Nasal Cannula 2.0 01/03/19 20:41 102 20 97 Room Air 21 01/03/19 20:38 Room Air 21 01/03/19 20:38 110 20 92 Room Air 21 01/03/19 20:38 92 Room Air 21 01/03/19 20:00 99.5 119 18 134/62 (86) 95 01/03/19 16:00 124 01/03/19 16:00 100.3 121 20 152/69 (96) 98 01/03/19 13:40 Nasal Cannula 2.0 28 01/03/19 13:40 Nasal Cannula 2.0 28 01/03/19 12:00 99.0 118 19 130/62 (84) 94 Height (Feet): 6 Height (Inches): 1.00 Weight (Pounds): 130 Objective Gen: NAD, well appearing, alert HEENT: NCAT, MMM, EOMI, PERRL, No Oral lesion, no scleral icterus NECK: full range of motion, supple, no meningismus, No LAD, No JVD LUNGS: CTAB, No W/C, No Accessory muscle use CARDS: RRR, S1, S2, No M/R/G, ABD: Soft, NT, ND, No R/G, + BS, No HSM, No Masses : Deferred Ext: right ankle with two shallow ulcers, No surrounding erythema no purulence , Pulses 2+ B/L (DP, Rad): NEURO: A/O x 4, Strength and Sensation Grossly intact PSYCH: Mood/affect normal SKIN: Warm/dry, No rashes Microbiology Date/Time Source Procedure Growth Status 01/03/19 14:10 Urine,Ureter/Kidney Urine Culture - Preliminary NO GROWTH Resulted Laboratory Tests Test 01/03/19 14:10 Urine Color Yellow Urine Appearance Clear Urine pH 5 (4.5-8.0) Urine Specific [place] 1.015 (1.005-1.035) Urine Protein 2+ (NEGATIVE) H Urine Glucose (UA) Negative (NEGATIVE) Urine Ketones 1+ (NEGATIVE) H Urine Blood Negative (NEGATIVE) Urine Nitrite Negative (NEGATIVE) Urine Bilirubin Negative (NEGATIVE) Urine Urobilinogen 1 MG/DL (0.0-1.0) H Urine Leukocyte Esterase Negative (NEGATIVE) Urine RBC 0 /HPF (0 - 0) Urine WBC 0-2 /HPF (0 - 0) Urine Squamous Epithelial Cells None /LPF (NONE/OCC) Urine Bacteria Few /HPF (NONE) Current Medications Medications (Trade) Dose Ordered Sig/Aminata Route PRN Reason Start Time Stop Time Status Last Admin Dose Admin Acetaminophen (Tylenol) 650 mg Q6H PRN ORAL Mild Pain/Temp > 100.5 01/03/19 16:00 01/30/19 15:59 Acetylcysteine (Mucomyst) 100 mg TIDRT N 01/03/19 19:00 01/26/19 12:59 01/04/19 07:24 Amlodipine Besylate (Norvasc) 10 mg DAILY ORAL 01/04/19 09:00 01/21/19 08:59 01/04/19 09:20 Budesonide (Pulmicort) 0.25 mg Q12HRT N 01/03/19 22:00 02/02/19 21:59 01/04/19 00:06 Ceftriaxone Sodium 1 gm/ Dextrose 55 ml @ 110 mls/hr DAILY IVPB 01/04/19 09:00 01/10/19 10:59 Clopidogrel Bisulfate (Plavix) 75 mg DAILY ORAL 01/04/19 09:00 01/21/19 08:59 01/04/19 09:19 Dextrose (Dextrose 50%) 25 ml Q30M PRN IV Hypoglycemia 01/03/19 15:30 01/21/19 07:29 Dextrose (Dextrose 50%) 50 ml Q30M PRN IV Hypoglycemia 01/03/19 15:30 01/21/19 07:29 Heparin Sodium (Porcine) (Heparin 5000 units/ml) 5,000 units EVERY 12 HOURS SUBQ 01/03/19 21:00 01/21/19 08:59 Hydromorphone HCl (Dilaudid) 3 mg Q3H PRN IVP Severe Pain (Pain Scale 7-10) 01/03/19 15:30 01/07/19 15:29 01/04/19 07:06 Levalbuterol HCl (Xopenex) 1.25 mg Q4H PRN HHN Shortness of Breath 01/03/19 15:30 01/08/19 15:29 01/04/19 07:24 Levetiracetam (Keppra) 250 mg Q12HR ORAL 01/03/19 21:00 01/30/19 08:59 01/04/19 09:20 Mirtazapine (Remeron) 30 mg BEDTIME ORAL 01/03/19 21:00 01/23/19 20:59 01/03/19 21:25 Ondansetron HCl (Zofran) 4 mg Q6H PRN IVP Nausea & Vomiting 01/03/19 15:30 01/21/19 15:29 Vancomycin HCl (Vanco rx to dose) 1 ea DAILY PRN MISC Per rx protocol 01/03/19 15:30 02/02/19 15:29 Vancomycin HCl 750 mg/Sodium Chloride 275 ml @ 183.333 mls/hr Q24H IVPB 01/04/19 12:00 01/09/19 11:59 Jessica Parry M.D. Jan 04, 2019 11:33
[2019-01-04 12:00] VITALS: BP 111/71
[2019-01-04] MEDS ORDERED: Vancomycin 750mg/NS 275ml IVPB SCH ×2 (12:00)
[2019-01-04] MEDS ORDERED: Vancomycin 750 MG in NS 275 ML IVPB SCH (12:00)
--- NOTE | 2019-01-04 12:18 | NUR ---
NURSE NOTES: Received report CHRISTOPHER MCWILLIAMS ON O2 3.5 NASAL CANNULA,BREATHING EASY Addendum: 01/04/19 at 1350 by Charly TATE RN explained to patient importance of antibiotic treatment
--- NOTE | 2019-01-04 12:33 | General Progress Note ---
Assessment/Plan Problem List: (1) MDD (major depressive disorder), recurrent episode ICD Codes: F33.9 - Major depressive disorder, recurrent, unspecified SNOMED: 601429464 Assessment/Plan remeron 30mg po qhs provided ro/st Subjective 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: Reports: anxiety, depressed Allergies: Coded Allergies: EGG (Verified Allergy, Unknown, 09/28/18) MEPERIDINE (Verified Allergy, Unknown, 09/28/18) MORPHINE (Verified Allergy, Unknown, 09/28/18) NITROGLYCERIN (Verified Allergy, Unknown, hives, 09/28/18) Objective Last 24 Hour Vital Signs Date Time Temp Pulse Resp B/P (MAP) Pulse Ox O2 Delivery O2 Flow Rate FiO2 01/04/19 11:15 Nasal Cannula 3.0 32 01/04/19 11:15 Nasal Cannula 3.0 32 01/04/19 09:20 111 108/57 01/04/19 09:00 Nasal Cannula 2.0 01/04/19 08:00 97.5 87 20 122/60 (80) 96 01/04/19 07:57 80 20 21 01/04/19 07:37 112 20 89 Nasal Cannula 2.0 28 01/04/19 07:37 112 20 89 Nasal Cannula 2.0 28 01/04/19 07:29 110 14 90 Nasal Cannula 2.0 28 01/04/19 07:29 110 14 90 Nasal Cannula 2.0 28 01/04/19 07:29 Nasal Cannula 2.0 21 01/04/19 07:29 90 Nasal Cannula 2.0 28 01/04/19 04:00 136 01/04/19 04:00 97.5 118 18 132/64 (86) 94 01/04/19 00:12 115 20 95 Room Air 21 01/04/19 00:04 113 20 78 Room Air 21 01/04/19 00:00 98.3 122 19 136/64 (88) 93 01/04/19 00:00 120 01/03/19 21:00 Nasal Cannula 2.0 01/03/19 20:41 102 20 97 Room Air 21 01/03/19 20:38 Room Air 21 01/03/19 20:38 110 20 92 Room Air 21 01/03/19 20:38 92 Room Air 21 01/03/19 20:00 99.5 119 18 134/62 (86) 95 01/03/19 16:00 124 01/03/19 16:00 100.3 121 20 152/69 (96) 98 01/03/19 13:40 Nasal Cannula 2.0 28 01/03/19 13:40 Nasal Cannula 2.0 28 Intake and Output 01/03/19 01/04/19 18:59 06:59 Intake Total 120 ml Output Total 150 ml Balance -30 ml Intake Oral 120 ml Output Urine Total 150 ml # Voids 1 Laboratory Tests 01/03/19 14:10: Urine Color Yellow, Urine Appearance Clear, Urine pH 5, Urine Specific [place] 1.015, Urine Protein 2+H, Urine Glucose (UA) Negative, Urine Ketones 1+H, Urine Blood Negative, Urine Nitrite Negative, Urine Bilirubin Negative, Urine Urobilinogen 1H, Urine Leukocyte Esterase Negative, Urine RBC 0, Urine WBC 0-2, Urine Squamous Epithelial Cells None, Urine Bacteria Few Height (Feet): 6 Height (Inches): 1.00 Weight (Pounds): 130 General Appearance: no apparent distress, alert Neurologic: oriented x 3, responsive, depressed affect Rachael Buckley MD Jan 04, 2019 12:33
--- NOTE | 2019-01-04 12:43 | NUR ---
HAND-OFF: Report given to CHRISTOPHER Swain.
--- NOTE | 2019-01-04 13:12 | Pulmonology Progress Note ---
Assessment/Plan Problems: (1) COPD exacerbation (2) Acute bronchitis (3) Hypothyroidism (4) CAD (coronary artery disease) (5) Severe protein-calorie malnutrition (6) Chronic ulcer of right leg Assessment/Plan transferred to [facility] b/o chest pain wbc still high episodes of chest pain no new complains renal f/u respiratory treatment wound care Subjective ROS Limited/Unobtainable: No Constitutional: Reports: no symptoms HEENT: Repors: no symptoms Allergies: Coded Allergies: EGG (Verified Allergy, Unknown, 09/28/18) MEPERIDINE (Verified Allergy, Unknown, 09/28/18) MORPHINE (Verified Allergy, Unknown, 09/28/18) NITROGLYCERIN (Verified Allergy, Unknown, hives, 09/28/18) Objective Last 24 Hour Vital Signs Date Time Temp Pulse Resp B/P (MAP) Pulse Ox O2 Delivery O2 Flow Rate FiO2 01/04/19 11:15 Nasal Cannula 3.0 32 01/04/19 11:15 Nasal Cannula 3.0 32 01/04/19 09:20 111 108/57 01/04/19 09:00 Nasal Cannula 2.0 01/04/19 08:00 105 01/04/19 08:00 97.5 87 20 122/60 (80) 96 01/04/19 07:57 80 20 21 01/04/19 07:37 112 20 89 Nasal Cannula 2.0 28 01/04/19 07:37 112 20 89 Nasal Cannula 2.0 28 01/04/19 07:29 110 14 90 Nasal Cannula 2.0 28 01/04/19 07:29 110 14 90 Nasal Cannula 2.0 28 01/04/19 07:29 Nasal Cannula 2.0 21 01/04/19 07:29 90 Nasal Cannula 2.0 28 01/04/19 04:00 136 01/04/19 04:00 97.5 118 18 132/64 (86) 94 01/04/19 00:12 115 20 95 Room Air 21 01/04/19 00:04 113 20 78 Room Air 21 01/04/19 00:00 98.3 122 19 136/64 (88) 93 01/04/19 00:00 120 01/03/19 21:00 Nasal Cannula 2.0 01/03/19 20:41 102 20 97 Room Air 21 01/03/19 20:38 Room Air 21 01/03/19 20:38 110 20 92 Room Air 21 01/03/19 20:38 92 Room Air 21 01/03/19 20:00 99.5 119 18 134/62 (86) 95 01/03/19 16:00 124 01/03/19 16:00 100.3 121 20 152/69 (96) 98 01/03/19 13:40 Nasal Cannula 2.0 28 01/03/19 13:40 Nasal Cannula 2.0 28 Intake and Output 01/03/19 01/04/19 18:59 06:59 Intake Total 120 ml Output Total 150 ml Balance -30 ml Intake Oral 120 ml Output Urine Total 150 ml # Voids 1 Objective General Appearance: cachectic HEENT: normocephalic Respiratory/Chest: chest wall non-tender, lungs clear, decrease breath sounds Cardiovascular: normal peripheral pulses, normal rate Abdomen: normal bowel sounds, soft, non tender Extremities: no cyanosis Skin: no rash Microbiology Date/Time Source Procedure Growth Status 01/03/19 14:10 Urine,Ureter/Kidney Urine Culture - Preliminary NO GROWTH Resulted Laboratory Tests 01/03/19 14:10: Urine Color Yellow, Urine Appearance Clear, Urine pH 5, Urine Specific [place] 1.015, Urine Protein 2+H, Urine Glucose (UA) Negative, Urine Ketones 1+H, Urine Blood Negative, Urine Nitrite Negative, Urine Bilirubin Negative, Urine Urobilinogen 1H, Urine Leukocyte Esterase Negative, Urine RBC 0, Urine WBC 0-2, Urine Squamous Epithelial Cells None, Urine Bacteria Few Current Medications Medications (Trade) Dose Ordered Sig/Aminata Route PRN Reason Start Time Stop Time Status Last Admin Dose Admin Acetaminophen (Tylenol) 650 mg Q6H PRN ORAL Mild Pain/Temp > 100.5 01/03/19 16:00 01/30/19 15:59 Acetylcysteine (Mucomyst) 100 mg TIDRT N 01/03/19 19:00 01/26/19 12:59 01/04/19 07:24 Amlodipine Besylate (Norvasc) 10 mg DAILY ORAL 01/04/19 09:00 01/21/19 08:59 01/04/19 09:20 Budesonide (Pulmicort) 0.25 mg Q12HRT N 01/03/19 22:00 02/02/19 21:59 01/04/19 00:06 Ceftriaxone Sodium 1 gm/ Dextrose 55 ml @ 110 mls/hr DAILY IVPB 01/04/19 09:00 01/10/19 10:59 Clopidogrel Bisulfate (Plavix) 75 mg DAILY ORAL 01/04/19 09:00 01/21/19 08:59 01/04/19 09:19 Dextrose (Dextrose 50%) 25 ml Q30M PRN IV Hypoglycemia 01/03/19 15:30 01/21/19 07:29 Dextrose (Dextrose 50%) 50 ml Q30M PRN IV Hypoglycemia 01/03/19 15:30 01/21/19 07:29 Heparin Sodium (Porcine) (Heparin 5000 units/ml) 5,000 units EVERY 12 HOURS SUBQ 01/03/19 21:00 01/21/19 08:59 Hydromorphone HCl (Dilaudid) 3 mg Q3H PRN IVP Severe Pain (Pain Scale 7-10) 01/03/19 15:30 01/07/19 15:29 01/04/19 11:23 Levalbuterol HCl (Xopenex) 1.25 mg Q4H PRN HHN Shortness of Breath 01/03/19 15:30 01/08/19 15:29 01/04/19 07:24 Levetiracetam (Keppra) 250 mg Q12HR ORAL 01/03/19 21:00 01/30/19 08:59 01/04/19 09:20 Mirtazapine (Remeron) 30 mg BEDTIME ORAL 01/03/19 21:00 01/23/19 20:59 01/03/19 21:25 Ondansetron HCl (Zofran) 4 mg Q6H PRN IVP Nausea & Vomiting 01/03/19 15:30 01/21/19 15:29 Vancomycin HCl (Vanco rx to dose) 1 ea DAILY PRN MISC Per rx protocol 01/03/19 15:30 02/02/19 15:29 Vancomycin HCl 750 mg/Sodium Chloride 275 ml @ 183.333 mls/hr Q24H IVPB 01/04/19 12:00 01/09/19 11:59 Jessie Magana MD Jan 04, 2019 13:12
--- NOTE | 2019-01-04 13:30 | General Progress Note ---
Assessment/Plan Problem List: (1) Acute and chronic respiratory failure ICD Codes: J96.20 - Acute and chronic respiratory failure, unspecified whether with hypoxia or hypercapnia SNOMED: 40265418 (2) Chest pain ICD Codes: R07.9 - Chest pain, unspecified SNOMED: 50410015 Qualifiers: Qualified Codes: R07.9 - Chest pain, unspecified (3) HTN (hypertension) ICD Codes: I10 - Hypertension SNOMED: 63073780 (4) COPD exacerbation ICD Codes: J44.1 - Obstructive chronic bronchitis with exacerbation SNOMED: 174504776 (5) Acute CHF (congestive heart failure) ICD Codes: I50.9 - Heart failure, unspecified SNOMED: 70618579 Qualifiers: Qualified Codes: I50.9 - Heart failure, unspecified Status: unchanged Assessment/Plan o2 pulmt x pt diet cbc bmp am dc to snf if clear Subjective Constitutional: Reports: weakness Respiratory: Reports: shortness of breath Allergies: Coded Allergies: EGG (Verified Allergy, Unknown, 09/28/18) MEPERIDINE (Verified Allergy, Unknown, 09/28/18) MORPHINE (Verified Allergy, Unknown, 09/28/18) NITROGLYCERIN (Verified Allergy, Unknown, hives, 09/28/18) All Systems: reviewed and negative except above Subjective calm in bed Objective Last 24 Hour Vital Signs Date Time Temp Pulse Resp B/P (MAP) Pulse Ox O2 Delivery O2 Flow Rate FiO2 01/04/19 12:00 97.1 111 18 111/71 (84) 99 01/04/19 11:54 117 01/04/19 11:15 Nasal Cannula 3.0 32 01/04/19 11:15 Nasal Cannula 3.0 32 01/04/19 09:20 111 108/57 01/04/19 09:00 Nasal Cannula 2.0 01/04/19 08:00 105 01/04/19 08:00 97.5 87 20 122/60 (80) 96 01/04/19 07:57 80 20 21 01/04/19 07:37 112 20 89 Nasal Cannula 2.0 28 01/04/19 07:37 112 20 89 Nasal Cannula 2.0 28 01/04/19 07:29 110 14 90 Nasal Cannula 2.0 28 01/04/19 07:29 110 14 90 Nasal Cannula 2.0 28 01/04/19 07:29 Nasal Cannula 2.0 21 01/04/19 07:29 90 Nasal Cannula 2.0 28 01/04/19 04:00 136 01/04/19 04:00 97.5 118 18 132/64 (86) 94 01/04/19 00:12 115 20 95 Room Air 21 01/04/19 00:04 113 20 78 Room Air 21 01/04/19 00:00 98.3 122 19 136/64 (88) 93 01/04/19 00:00 120 01/03/19 21:00 Nasal Cannula 2.0 01/03/19 20:41 102 20 97 Room Air 21 01/03/19 20:38 Room Air 21 01/03/19 20:38 110 20 92 Room Air 21 01/03/19 20:38 92 Room Air 21 01/03/19 20:00 99.5 119 18 134/62 (86) 95 01/03/19 16:00 124 01/03/19 16:00 100.3 121 20 152/69 (96) 98 01/03/19 13:40 Nasal Cannula 2.0 28 01/03/19 13:40 Nasal Cannula 2.0 28 Intake and Output 01/03/19 01/04/19 18:59 06:59 Intake Total 120 ml Output Total 150 ml Balance -30 ml Intake Oral 120 ml Output Urine Total 150 ml # Voids 1 Laboratory Tests 01/03/19 14:10: Urine Color Yellow, Urine Appearance Clear, Urine pH 5, Urine Specific [place] 1.015, Urine Protein 2+H, Urine Glucose (UA) Negative, Urine Ketones 1+H, Urine Blood Negative, Urine Nitrite Negative, Urine Bilirubin Negative, Urine Urobilinogen 1H, Urine Leukocyte Esterase Negative, Urine RBC 0, Urine WBC 0-2, Urine Squamous Epithelial Cells None, Urine Bacteria Few Height (Feet): 6 Height (Inches): 1.00 Weight (Pounds): 130 General Appearance: lethargic EENT: normal ENT inspection Neck: normal alignment Cardiovascular: normal peripheral pulses, normal rate, regular rhythm Respiratory/Chest: chest wall non-tender, decreased breath sounds Abdomen: normal bowel sounds, non tender, soft Extremities: normal inspection Edema: 1+ Arm (L), 1+ Arm (R), 1+ Leg (L), 1+ Leg (R), 1+ Pedal (L), 1+ Pedal ( R), 1+ Generalized Edema: trace edema Neurologic: responsive, motor weakness Skin: normal pigmentation, warm/dry Fabio Tracey DO Jan 04, 2019 13:30
[2019-01-04] MEDS: Vancomycin 750 MG in NS 275 ML IVPB SCH (13:53)
--- NOTE | 2019-01-04 14:30 | NUR ---
HAND-OFF: Report given to RN Bradford,patient awake asking for juice ,vancomycin infusing.
--- NOTE | 2019-01-04 14:30 | NUR ---
NURSE NOTES: Pt received from CHRISTOPHER Swain alert and oriented x4 with complaints of pain 09/02. Pt is currently getting blood drawn from driver guide Pat, no s/s of acute distress or SOB. IV site asymptomatic and patent. Bed in lowest position, call light and belongings within reach.
--- NOTE | 2019-01-04 15:17 | NUR ---
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 97.1 HR 117 RR 20 B/P 111/71 2L NC IS: VANCO IV CEFTRIAXONE IV PLAVIX PO DILAUDID IV TELE STATUS
[2019-01-04 16:00] VITALS: BP 114/60
[2019-01-04] MEDS ORDERED: NS 275ml ONE (16:00)
[2019-01-04] MEDS ORDERED: Tubing IV Secondary IV ONE (16:00)
[2019-01-04 16:29] LABS: ANION GAP 11 mmol/L (5-15); BLOOD UREA NITROGEN 30 mg/dL (7-18); CALCIUM 7.8 MG/DL (8.5-10.1); CARBON DIOXIDE 26 MMOL/L (21-32); CHLORIDE 104 MMOL/L (98-107); CREATININE 1.6 MG/DL (0.55-1.30); POTASSIUM 4.2 MMOL/L (3.5-5.1); SODIUM 141 MMOL/L (136-145)
--- NOTE | 2019-01-04 20:38 | Cardiology Progress Note ---
Assessment/Plan Assessment/Plan 1. Chronic recurrent chest pain. 2. Visible foreign body in the left sternal area consistent with sternal wires. 3. Coronary artery disease, status post coronary artery bypass grafting and prior PCI. 4. COPD. 5. Chronic pain. 6. Osteomyelitis of lower extremity. 7. Tachycardia was not able to see cts at [facility] he says they did not answer their phone!! chest wall is ternder hn q4 hour prn tachycardic may be related to hhn will check cxr adn bnp in a, Subjective Cardiovascular: Denies: chest pain Respiratory: Reports: shortness of breath Gastrointestinal/Abdominal: Denies: abdominal pain Genitourinary: Denies: burning Subjective poor appetite Objective Last 24 Hour Vital Signs Date Time Temp Pulse Resp B/P (MAP) Pulse Ox O2 Delivery O2 Flow Rate FiO2 01/04/19 17:50 98.9 01/04/19 17:45 98.9 01/04/19 16:00 124 01/04/19 16:00 101.8 80 21 114/60 (78) 100 01/04/19 14:23 115 20 90 Nasal Cannula 2.0 28 01/04/19 14:06 114 20 88 Nasal Cannula 2.0 28 01/04/19 12:00 97.1 111 18 111/71 (84) 99 01/04/19 11:54 117 01/04/19 11:15 Nasal Cannula 3.0 32 01/04/19 11:15 Nasal Cannula 3.0 32 01/04/19 09:20 111 108/57 01/04/19 09:00 Nasal Cannula 2.0 01/04/19 08:00 105 01/04/19 08:00 97.5 87 20 122/60 (80) 96 01/04/19 07:57 80 20 21 01/04/19 07:37 112 20 89 Nasal Cannula 2.0 28 01/04/19 07:37 112 20 89 Nasal Cannula 2.0 28 01/04/19 07:29 110 14 90 Nasal Cannula 2.0 28 01/04/19 07:29 110 14 90 Nasal Cannula 2.0 28 01/04/19 07:29 Nasal Cannula 2.0 21 01/04/19 07:29 90 Nasal Cannula 2.0 28 01/04/19 04:00 136 01/04/19 04:00 97.5 118 18 132/64 (86) 94 01/04/19 00:12 115 20 95 Room Air 21 01/04/19 00:04 113 20 78 Room Air 21 01/04/19 00:00 98.3 122 19 136/64 (88) 93 01/04/19 00:00 120 01/03/19 21:00 Nasal Cannula 2.0 01/03/19 20:41 102 20 97 Room Air 21 01/03/19 20:38 Room Air 21 01/03/19 20:38 110 20 92 Room Air 21 01/03/19 20:38 92 Room Air 21 General Appearance: alert Neck: supple Cardiovascular: normal rate Respiratory/Chest: decreased breath sounds Abdomen: normal bowel sounds, non tender, soft Extremities: no swelling Intake and Output 01/03/19 01/04/19 19:00 07:00 Intake Total 120 ml Output Total 150 ml Balance -30 ml Intake Oral 120 ml Output Urine Total 150 ml # Voids 1 Laboratory Tests Test 01/04/19 14:45 Sodium Level 141 MMOL/L (136-145) Potassium Level 4.2 MMOL/L (3.5-5.1) Chloride Level 104 MMOL/L (98-107) Carbon Dioxide Level 26 MMOL/L (21-32) Anion Gap 11 mmol/L (5-15) Blood Urea Nitrogen 30 mg/dL (7-18) H Creatinine 1.6 MG/DL (0.55-1.30) H Estimat Glomerular Filtration Rate 52.2 mL/min (>60) Glucose Level 107 MG/DL (74-106) H Calcium Level 7.8 MG/DL (8.5-10.1) L Microbiology Date/Time Source Procedure Growth Status 01/03/19 14:10 Urine,Ureter/Kidney Urine Culture - Preliminary NO GROWTH Resulted Sergio Anaya MD Jan 04, 2019 20:38
[2019-01-05] VITALS: BP 113/57
[2019-01-05 04:00] VITALS: BP 102/60
[2019-01-05 07:22] LABS: ALANINE AMINOTRANSFERASE 18 U/L (12-78); ALBUMIN 1.8 G/DL (3.4-5.0); ALBUMIN/GLOBULIN RATIO 0.3 (1.0-2.7); ALKALINE PHOSPHATASE 73 U/L (46-116); ANION GAP 10 mmol/L (5-15); ASPARTATE AMINO TRANSFERASE 16 U/L (15-37); BILIRUBIN,TOTAL 0.4 MG/DL (0.2-1.0); BLOOD UREA NITROGEN 31 mg/dL (7-18); CALCIUM 8.2 MG/DL (8.5-10.1); CARBON DIOXIDE 26 MMOL/L (21-32); CHLORIDE 105 MMOL/L (98-107); CREATININE 1.9 MG/DL (0.55-1.30); POTASSIUM 3.6 MMOL/L (3.5-5.1); SODIUM 141 MMOL/L (136-145)
--- NOTE | 2019-01-05 07:35 | NUR ---
NURSE NOTES: Received report from Bradford WHITE. Pt is awake, alert, oriented x4, resting in bed at high iraheta's position, while having breakfast. Pt is on 3L of oxygen via nasal cannula. IV access on left wrist #24G, saline lock, patent/intact. Skin has dressing on right ankle, dry/intact, will reassess site and change dressing as needed/ordered. Urinal at bedside. Pt reports chronic back pain, which is currently controlled with PRN Dilaudid. Call light is placed within easy reach, bed in lowest position, two side rails up, brakes engaged. alarm on.
[2019-01-05 07:39] LABS: BASOPHILS % (AUTO) 0.9 % (0.0-2.0); EOSINOPHILS % (AUTO) 4.7 % (0.0-3.0); HEMATOCRIT 34.6 % (42.0-52.0); HEMOGLOBIN 10.9 G/DL (14.2-18.0); MEAN CORPUSCULAR VOLUME 80 FL (80-99); NEUTROPHILS % (AUTO) 73.5 % (45.0-75.0); PLATELET COUNT 405 K/UL (150-450); RED BLOOD COUNT 4.31 M/UL (4.70-6.10); RED CELL DISTRIBUTION WIDTH 16.6 % (11.6-14.8); WHITE BLOOD COUNT 13.2 K/UL (4.8-10.8)
--- NOTE | 2019-01-05 07:45 | NUR ---
HAND-OFF: Report given to CHRISTOPHER Samuels.
[2019-01-05] MEDS: Levalbuterol Inh UD 1.25mg/0.5ml HHN PRN ×2 (07:53→19:53)
[2019-01-05 08:00] VITALS: BP 115/67
[2019-01-05] MEDS: Heparin 5000 units/ml inj SUBQ SCH ×2 (09:00→21:00)
[2019-01-05] MEDS: Budesonide HHN 0.25mg/2ml ud HHN SCH ×2 (09:42→20:01)
--- NOTE | 2019-01-05 09:53 | NUR ---
RADIOLOGY DEPT CHEST X-RAY DONE.-P.DYE
[2019-01-05 12:00] VITALS: BP 106/56
--- NOTE | 2019-01-05 12:08 | Pulmonology Progress Note ---
Assessment/Plan Problems: (1) COPD exacerbation (2) Acute bronchitis (3) Hypothyroidism (4) CAD (coronary artery disease) (5) Severe protein-calorie malnutrition (6) Chronic ulcer of right leg Assessment/Plan still tachy wbc still high episodes of chest pain no new complains renal f/u respiratory treatment wound care Subjective ROS Limited/Unobtainable: No Constitutional: Reports: no symptoms HEENT: Repors: no symptoms Respiratory: Reports: no symptoms Allergies: Coded Allergies: EGG (Verified Allergy, Unknown, 09/28/18) MEPERIDINE (Verified Allergy, Unknown, 09/28/18) MORPHINE (Verified Allergy, Unknown, 09/28/18) NITROGLYCERIN (Verified Allergy, Unknown, hives, 09/28/18) Objective Last 24 Hour Vital Signs Date Time Temp Pulse Resp B/P (MAP) Pulse Ox O2 Delivery O2 Flow Rate FiO2 01/05/19 10:45 97.7 01/05/19 09:53 105 20 97 Nasal Cannula 2.0 28 01/05/19 09:42 101 20 88 Nasal Cannula 21 01/05/19 09:25 119 115/67 01/05/19 09:00 Nasal Cannula 2.0 01/05/19 08:03 114 18 96 Nasal Cannula 2.0 28 01/05/19 08:00 109 01/05/19 08:00 99.2 119 20 115/67 (83) 95 01/05/19 07:56 108 18 89 Room Air 21 01/05/19 04:00 97.7 116 19 102/60 (74) 98 01/05/19 04:00 113 01/05/19 00:00 98.7 119 19 113/57 (75) 97 01/05/19 00:00 110 01/04/19 22:53 108 20 93 Room Air 21 01/04/19 22:43 105 20 93 Nasal Cannula 21 01/04/19 22:43 93 Nasal Cannula 2.0 28 01/04/19 22:42 105 20 93 Nasal Cannula 2.0 28 01/04/19 22:34 100 20 79 Room Air 21 01/04/19 22:34 Nasal Cannula 2.0 28 01/04/19 21:00 Nasal Cannula 2.0 01/04/19 20:00 118 01/04/19 17:50 98.9 2/11/19 17:45 98.9 01/04/19 16:00 124 01/04/19 16:00 101.8 80 21 114/60 (78) 100 01/04/19 14:23 115 20 90 Nasal Cannula 2.0 28 01/04/19 14:06 114 20 88 Nasal Cannula 2.0 28 Intake and Output 01/04/19 01/05/19 19:00 07:00 Intake Total 530 ml Output Total 450 ml Balance 80 ml Intake Oral 420 ml IV Total 110 ml Output Urine Total 450 ml # Voids 2 Objective General Appearance: cachectic HEENT: normocephalic Respiratory/Chest: chest wall non-tender, lungs clear, decrease breath sounds Cardiovascular: normal peripheral pulses, normal rate Abdomen: normal bowel sounds, soft, non tender Extremities: no cyanosis Skin: no rash Microbiology Date/Time Source Procedure Growth Status 01/03/19 10:15 Blood Blood Culture - Preliminary NO GROWTH AFTER 24 HOURS Resulted 01/03/19 10:00 Blood Blood Culture - Preliminary NO GROWTH AFTER 24 HOURS Resulted 01/03/19 14:10 Urine,Ureter/Kidney Urine Culture - Preliminary Mixed Gram Positive Organism Resulted Laboratory Tests 01/04/19 14:45: Sodium Level 141, Potassium Level 4.2, Chloride Level 104, Carbon Dioxide Level 26, Anion Gap 11, Blood Urea Nitrogen 30H, Creatinine 1.6H, Estimat Glomerular Filtration Rate 52.2, Glucose Level 107H, Calcium Level 7.8L 01/05/19 05:45: Sodium Level 141, Potassium Level 3.6, Chloride Level 105, Carbon Dioxide Level 26, Anion Gap 10, Blood Urea Nitrogen 31H, Creatinine 1.9H, Estimat Glomerular Filtration Rate 42.8, Glucose Level 97, Calcium Level 8.2L, White Blood Count 13.2H, Red Blood Count 4.31L, Hemoglobin 10.9L, Hematocrit 34.6L, Mean Corpuscular Volume 80, Mean Corpuscular Hemoglobin 25.3L, Mean Corpuscular Hemoglobin Concent 31.5L, Red Cell Distribution Width 16.6H, Platelet Count 405 , Mean Platelet Volume 6.1L, Neutrophils (%) (Auto) 73.5, Lymphocytes (%) (Auto ) 13.0L, Monocytes (%) (Auto) 8.0, Eosinophils (%) (Auto) 4.7H, Basophils (%) ( Auto) 0.9, Total Bilirubin 0.4, Aspartate Amino Transf (AST/SGOT) 16, Alanine Aminotransferase (ALT/SGPT) 18, Alkaline Phosphatase 73, Pro-B-Type Natriuretic Peptide 558H, Total Protein 7.6, Albumin 1.8L, Globulin 5.8, Albumin/Globulin Ratio 0.3L 01/05/19 11:00: Vancomycin Level Trough 11.0 Current Medications Medications (Trade) Dose Ordered Sig/Aminata Route PRN Reason Start Time Stop Time Status Last Admin Dose Admin Acetaminophen (Tylenol) 650 mg Q6H PRN ORAL Mild Pain/Temp > 100.5 01/03/19 16:00 01/30/19 15:59 01/04/19 17:20 Acetylcysteine (Mucomyst) 100 mg TIDRT [facility] 01/03/19 19:00 01/26/19 12:59 01/05/19 07:53 Amlodipine Besylate (Norvasc) 10 mg DAILY ORAL 01/04/19 09:00 01/21/19 08:59 01/05/19 09:25 Budesonide (Pulmicort) 0.25 mg Q12HRT [facility] 01/03/19 22:00 02/02/19 21:59 01/05/19 09:42 Ceftriaxone Sodium 1 gm/ Dextrose 55 ml @ 110 mls/hr DAILY IVPB 01/04/19 09:00 01/10/19 10:59 01/04/19 13:18 Clopidogrel Bisulfate (Plavix) 75 mg DAILY ORAL 01/04/19 09:00 01/21/19 08:59 01/05/19 09:25 Dextrose (Dextrose 50%) 25 ml Q30M PRN IV Hypoglycemia 01/03/19 15:30 01/21/19 07:29 Dextrose (Dextrose 50%) 50 ml Q30M PRN IV Hypoglycemia 01/03/19 15:30 01/21/19 07:29 Heparin Sodium (Porcine) (Heparin 5000 units/ml) 5,000 units EVERY 12 HOURS SUBQ 01/03/19 21:00 01/21/19 08:59 Hydromorphone HCl (Dilaudid) 3 mg Q3H PRN IVP Severe Pain (Pain Scale 7-10) 01/03/19 15:30 01/07/19 15:29 01/05/19 10:15 Levalbuterol HCl (Xopenex) 1.25 mg Q4H PRN HHN Shortness of Breath 01/03/19 15:30 01/08/19 15:29 01/05/19 07:53 Levetiracetam (Keppra) 250 mg Q12HR ORAL 01/03/19 21:00 01/30/19 08:59 01/05/19 09:25 Mirtazapine (Remeron) 30 mg BEDTIME ORAL 01/03/19 21:00 01/23/19 20:59 01/04/19 21:19 Ondansetron HCl (Zofran) 4 mg Q6H PRN IVP Nausea & Vomiting 01/03/19 15:30 01/21/19 15:29 Vancomycin HCl (Vanco rx to dose) 1 ea DAILY PRN MISC Per rx protocol 01/03/19 15:30 02/02/19 15:29 Vancomycin HCl 750 mg/Sodium Chloride 275 ml @ 183.333 mls/hr Q24H IVPB 01/04/19 12:00 01/09/19 11:59 01/04/19 13:53 Jessie Magana MD Jan 05, 2019 12:08
[2019-01-05] MEDS: Vancomycin 750 MG in NS 275 ML IVPB SCH (12:19)
--- NOTE | 2019-01-05 12:27 | Diagnostic Imaging Report ---
Indication: Cough, abnormal chest sounds Technique: One view of the chest Comparison: 12/28/2018 Findings: Dense consolidation is seen at the left lung base, not evident previously. There is probably a small amount of associated pleural fluid. Equivocal less dense consolidation is seen at the right lung base. There is generalized hyperinflation. Mild interstitial prominence appears similar to the previous exam, could indicate mild congestive change Impression: Left basilar infiltrate, likely pneumonia More questionable right infrahilar infiltrate Probable left pleural effusion Possible mild congestive changes COPD changes, also previously described
--- NOTE | 2019-01-05 13:03 | General Progress Note ---
Assessment/Plan Problem List: (1) MDD (major depressive disorder), recurrent episode ICD Codes: F33.9 - Major depressive disorder, recurrent, unspecified SNOMED: 072515089 Assessment/Plan remeron 30mg po qhs provided ro/st Subjective 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: Reports: anxiety, depressed, emotional problems Allergies: Coded Allergies: EGG (Verified Allergy, Unknown, 09/28/18) MEPERIDINE (Verified Allergy, Unknown, 09/28/18) MORPHINE (Verified Allergy, Unknown, 09/28/18) NITROGLYCERIN (Verified Allergy, Unknown, hives, 09/28/18) Subjective "Im miserable" the friend was in the room Objective Last 24 Hour Vital Signs Date Time Temp Pulse Resp B/P (MAP) Pulse Ox O2 Delivery O2 Flow Rate FiO2 01/05/19 12:58 103 16 95 Room Air 01/05/19 12:57 105 16 94 Room Air 21 01/05/19 12:51 109 16 92 Room Air 01/05/19 12:00 97.7 122 20 106/56 (73) 93 01/05/19 10:45 97.7 01/05/19 09:53 105 20 97 Nasal Cannula 2.0 28 01/05/19 09:42 101 20 88 Nasal Cannula 01/05/19 09:25 119 115/67 01/05/19 09:00 Nasal Cannula 2.0 01/05/19 08:03 114 18 96 Nasal Cannula 2.0 28 01/05/19 08:00 109 01/05/19 08:00 99.2 119 20 115/67 (83) 95 01/05/19 07:56 108 18 89 Room Air 01/05/19 07:00 109 16 92 Room Air 21 01/05/19 04:00 97.7 116 19 102/60 (74) 98 01/05/19 04:00 113 01/05/19 00:00 98.7 119 19 113/57 (75) 97 01/05/19 00:00 110 01/04/19 22:53 108 20 93 Room Air 21 01/04/19 22:43 105 20 93 Nasal Cannula 21 01/04/19 22:43 93 Nasal Cannula 2.0 28 01/04/19 22:42 105 20 93 Nasal Cannula 2.0 28 01/04/19 22:34 100 20 79 Room Air 21 01/04/19 22:34 Nasal Cannula 2.0 28 01/04/19 21:00 Nasal Cannula 2.0 01/04/19 20:00 118 01/04/19 17:50 98.9 01/04/19 17:45 98.9 01/04/19 16:00 124 01/04/19 16:00 101.8 80 21 114/60 (78) 100 01/04/19 14:23 115 20 90 Nasal Cannula 2.0 28 01/04/19 14:06 114 20 88 Nasal Cannula 2.0 28 Intake and Output 01/04/19 01/05/19 18:59 06:59 Intake Total 530 ml Output Total 450 ml Balance 80 ml Intake Oral 420 ml IV Total 110 ml Output Urine Total 450 ml # Voids 2 Laboratory Tests 01/04/19 14:45: Sodium Level 141, Potassium Level 4.2, Chloride Level 104, Carbon Dioxide Level 26, Anion Gap 11, Blood Urea Nitrogen 30H, Creatinine 1.6H, Estimat Glomerular Filtration Rate 52.2, Glucose Level 107H, Calcium Level 7.8L 01/05/19 05:45: Sodium Level 141, Potassium Level 3.6, Chloride Level 105, Carbon Dioxide Level 26, Anion Gap 10, Blood Urea Nitrogen 31H, Creatinine 1.9H, Estimat Glomerular Filtration Rate 42.8, Glucose Level 97, Calcium Level 8.2L, White Blood Count 13.2H, Red Blood Count 4.31L, Hemoglobin 10.9L, Hematocrit 34.6L, Mean Corpuscular Volume 80, Mean Corpuscular Hemoglobin 25.3L, Mean Corpuscular Hemoglobin Concent 31.5L, Red Cell Distribution Width 16.6H, Platelet Count 405 , Mean Platelet Volume 6.1L, Neutrophils (%) (Auto) 73.5, Lymphocytes (%) (Auto ) 13.0L, Monocytes (%) (Auto) 8.0, Eosinophils (%) (Auto) 4.7H, Basophils (%) ( Auto) 0.9, Total Bilirubin 0.4, Aspartate Amino Transf (AST/SGOT) 16, Alanine Aminotransferase (ALT/SGPT) 18, Alkaline Phosphatase 73, Pro-B-Type Natriuretic Peptide 558H, Total Protein 7.6, Albumin 1.8L, Globulin 5.8, Albumin/Globulin Ratio 0.3L 01/05/19 11:00: Vancomycin Level Trough 11.0 Height (Feet): 6 Height (Inches): 1.00 Weight (Pounds): 130 General Appearance: alert, cachetic Neurologic: oriented x 3, responsive, depressed affect Rachael Buckley MD Jan 05, 2019 13:03
--- NOTE | 2019-01-05 13:49 | NUR ---
RD ASSESSMENT & RECOMMENDATIONS SEE CARE ACTIVITY FOR COMPLETE ASSESSMENT DAILY ESTIMATED NEEDS: Needs based on wound, underweight/ 59kg 30-35 kcals/kg 5315-7310 total kcals 1.25-1.5 g protein/kg 74-89g g total protein 25-30 mL/kg 3546-6704 total fluid mLs NUTRITION DIAGNOSIS: 1) Increased kcal and protein needs R/T wound healing and for wt gain as evidenced by h/o right ankle chronic open wound, pt is est 71% IBW w/ underweight BMI per guidelines. 2) Altered nutrition related lab values R/T clinical condition, CHF as evidenced by elev K (5.4-> now wnl), elev BNP (1046-> 558). CURRENT DIET:REGULAR PO DIET RECOMMENDATIONS: W/ poor po: REGULAR DIET + double Protein portions/ texture as tolerated ADDITIONAL RECOMMENDATIONS: - RE-calibrate bed scale for accurate CBW - Weekly wt monitoring given underweight status - Snacks TID in between meals + Ensure Enlive daily - Wound healing: MVI w/ min x 1, Vit C 500mg QD, Nilson 1pkt BID - Monitor K, need for diet restriction - Monitor BGs closely while solumedrol- now off (bg wnl) .
--- NOTE | 2019-01-05 14:05 | Cardiology Report ---
APPROVED REPORT EXAM: Two-dimensional and M-mode echocardiogram with Doppler and color Doppler. INDICATION C.A.D M-Mode DIMENSIONS IVSd1.1 (0.7-1.1cm)Left Atrium (MM)2.3 (1.6-4.0cm) LVDd3.0 (3.5-5.6cm)Aortic Root3.1 (2.0-3.7cm) PWd1.2 (0.7-1.1cm)Aortic Cusp Exc.1.6 (1.5-2.0cm) IVSs1.1 cm LVDs2.1 (2.5-4.0cm) PWs1.0 cm Technically difficult study due to pt's position . Normal left ventricular chamber size, systolic function and wall motion to extent visualized. Left ventricular ejection fraction estimated to be55-60% Mild left ventricular hypertrophy. No evidence of pericardial fat or effusion. All other cardiac chamber sizes are within normal limits. Focal aortic valve sclerosis with adequate cusp excursion. Mildly thickened mitral valve leaflets with normal excursion. Mild mitral annulus and aortic root calcification. Pulmonic valve not well visualized. IVC at normal size with physiologic collapse. A color flow and spectral Doppler study was performed and revealed: No aortic insufficiency . Mitral diastolic velocities suggest reduced left ventricular relaxation c/w mild LV diastolic dysfunction (Grade I ) Trace to mild mitral regurgitation. Mild tricuspid regurgitation. Tricuspid systolic velocities suggests peak right ventricular systolic pressure of 49mmHg,consistent with mmoderate pulmonary hypertension.
--- NOTE | 2019-01-05 14:48 | General Progress Note ---
Assessment/Plan Problem List: (1) Acute and chronic respiratory failure ICD Codes: J96.20 - Acute and chronic respiratory failure, unspecified whether with hypoxia or hypercapnia SNOMED: 33609120 (2) Chest pain ICD Codes: R07.9 - Chest pain, unspecified SNOMED: 07087566 Qualifiers: Qualified Codes: R07.9 - Chest pain, unspecified (3) HTN (hypertension) ICD Codes: I10 - Hypertension SNOMED: 31043096 (4) COPD exacerbation ICD Codes: J44.1 - Obstructive chronic bronchitis with exacerbation SNOMED: 868511662 (5) Acute CHF (congestive heart failure) ICD Codes: I50.9 - Heart failure, unspecified SNOMED: 46015334 Qualifiers: Qualified Codes: I50.9 - Heart failure, unspecified Status: stable, progressing Assessment/Plan o2 pulmt x pt diet cbc bmp am dc to snf if clear Subjective Constitutional: Reports: weakness Allergies: Coded Allergies: EGG (Verified Allergy, Unknown, 09/28/18) MEPERIDINE (Verified Allergy, Unknown, 09/28/18) MORPHINE (Verified Allergy, Unknown, 09/28/18) NITROGLYCERIN (Verified Allergy, Unknown, hives, 09/28/18) All Systems: reviewed and negative except above Subjective calm in bed Objective Last 24 Hour Vital Signs Date Time Temp Pulse Resp B/P (MAP) Pulse Ox O2 Delivery O2 Flow Rate FiO2 01/05/19 12:58 103 16 95 Room Air 01/05/19 12:57 105 16 94 Room Air 01/05/19 12:51 109 16 92 Room Air 01/05/19 12:00 115 01/05/19 12:00 97.7 122 20 106/56 (73) 93 01/05/19 10:45 97.7 01/05/19 09:53 105 20 97 Nasal Cannula 2.0 28 01/05/19 09:42 101 20 88 Nasal Cannula 21 01/05/19 09:25 119 115/67 01/05/19 09:00 Nasal Cannula 2.0 01/05/19 08:03 114 18 96 Nasal Cannula 2.0 28 01/05/19 08:00 109 01/05/19 08:00 99.2 119 20 115/67 (83) 95 01/05/19 07:56 108 18 89 Room Air 21 01/05/19 07:00 109 16 92 Room Air 21 01/05/19 04:00 97.7 116 19 102/60 (74) 98 01/05/19 04:00 113 01/05/19 00:00 98.7 119 19 113/57 (75) 97 01/05/19 00:00 110 01/04/19 22:53 108 20 93 Room Air 21 01/04/19 22:43 105 20 93 Nasal Cannula 21 01/04/19 22:43 93 Nasal Cannula 2.0 28 01/04/19 22:42 105 20 93 Nasal Cannula 2.0 28 01/04/19 22:34 100 20 79 Room Air 21 01/04/19 22:34 Nasal Cannula 2.0 28 01/04/19 21:00 Nasal Cannula 2.0 01/04/19 20:00 118 01/04/19 17:50 98.9 01/04/19 17:45 98.9 01/04/19 16:00 124 01/04/19 16:00 101.8 80 21 114/60 (78) 100 Intake and Output 01/04/19 01/05/19 18:59 06:59 Intake Total 530 ml Output Total 450 ml Balance 80 ml Intake Oral 420 ml IV Total 110 ml Output Urine Total 450 ml # Voids 2 Laboratory Tests 01/05/19 05:45: White Blood Count 13.2H, Red Blood Count 4.31L, Hemoglobin 10.9L, Hematocrit 34.6L, Mean Corpuscular Volume 80, Mean Corpuscular Hemoglobin 25.3L, Mean Corpuscular Hemoglobin Concent 31.5L, Red Cell Distribution Width 16.6H, Platelet Count 405, Mean Platelet Volume 6.1L, Neutrophils (%) (Auto) 73.5, Lymphocytes (%) (Auto) 13.0L, Monocytes (%) (Auto) 8.0, Eosinophils (%) (Auto) 4.7H, Basophils (%) (Auto) 0.9, Sodium Level 141, Potassium Level 3.6, Chloride Level 105, Carbon Dioxide Level 26, Anion Gap 10, Blood Urea Nitrogen 31H, Creatinine 1.9H, Estimat Glomerular Filtration Rate 42.8, Glucose Level 97, Calcium Level 8.2L, Total Bilirubin 0.4, Aspartate Amino Transf (AST/SGOT) 16, Alanine Aminotransferase (ALT/SGPT) 18, Alkaline Phosphatase 73, Pro-B-Type Natriuretic Peptide 558H, Total Protein 7.6, Albumin 1.8L, Globulin 5.8, Albumin /Globulin Ratio 0.3L 01/05/19 11:00: Vancomycin Level Trough 11.0 Height (Feet): 6 Height (Inches): 1.00 Weight (Pounds): 130 General Appearance: lethargic EENT: normal ENT inspection Neck: normal alignment Cardiovascular: normal peripheral pulses, normal rate, regular rhythm Respiratory/Chest: chest wall non-tender, lungs clear, normal breath sounds Abdomen: normal bowel sounds, non tender, soft Extremities: normal inspection Edema: no edema noted Arm (L), no edema noted Arm (R), no edema noted Leg (L), no edema noted Leg (R), no edema noted Pedal (L), no edema noted Pedal (R), no edema noted Generalized Neurologic: motor weakness Skin: normal pigmentation, warm/dry Fabio Tracey DO Jan 05, 2019 14:48
--- NOTE | 2019-01-05 15:09 | NUR ---
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 97.7 HR 122 RR 20 B/P 106/56 WBC 13.2 BUN 31 CR 1.9 BNP 558 CXR= LEFT BASILAR INFILTRATION LIKELY PNA IS: VANCO IV CEFTRIAXONE IV XOPENEX HHN PULMICORT HHN TELE STATUS
--- NOTE | 2019-01-05 15:41 | Infectious Diseases Prog Note ---
Assessment/Plan Assessment/Plan 68 yo male with PMHx of COPD and CHF who presented to the ED on 12/21/18 with CP , SOB, N/V but no diarrhea. Leukocytosis, likely 2ry to PNA -01/05 CXR: Left basilar infiltrate, likely pneumonia. More questionable right infrahilar infiltrate. Probable left pleural effusion. Possible mild congestive changes 2/10 u/a neg Fever, improvig COPD Exacerbation -12/28 CXR: Slightly increasing interstitial markings bilaterally may be reflective developing mild interstitial edema or pneumonitis. Correlate clinically S/P Tx with Abx and Steroids Right ankle ulcers Do not appear to be infected. N/V - Resolved CHF HTN Hx of CAD - s/p CABG Plan - Empiric IV Vancomycin #3 and switch Ceftriaxone #3 to Cefepime for PNA -f/u Bcx x2 - 12/25/18 S/P Zosyn #4 -sp cx -Cdiff if diarrhea Thank you for this consult. We will continue to follow the patient during this hospitalization. Subjective Allergies: Coded Allergies: EGG (Verified Allergy, Unknown, 09/28/18) MEPERIDINE (Verified Allergy, Unknown, 09/28/18) MORPHINE (Verified Allergy, Unknown, 09/28/18) NITROGLYCERIN (Verified Allergy, Unknown, hives, 09/28/18) Subjective Tm 101.8,now afebrile in ~24hrs wbc reamins 13 CXR w/ PNA Objective Vital Signs Last 24 Hour Vital Signs Date Time Temp Pulse Resp B/P (MAP) Pulse Ox O2 Delivery O2 Flow Rate FiO2 01/05/19 12:58 103 16 95 Room Air 21 01/05/19 12:57 105 16 94 Room Air 21 01/05/19 12:51 109 16 92 Room Air 21 01/05/19 12:00 115 01/05/19 12:00 97.7 122 20 106/56 (73) 93 01/05/19 10:45 97.7 01/05/19 09:53 105 20 97 Nasal Cannula 2.0 28 01/05/19 09:42 101 20 88 Nasal Cannula 21 01/05/19 09:25 119 115/67 01/05/19 09:00 Nasal Cannula 2.0 01/05/19 08:03 114 18 96 Nasal Cannula 2.0 28 01/05/19 08:00 109 01/05/19 08:00 99.2 119 20 115/67 (83) 95 01/05/19 07:56 108 18 89 Room Air 21 01/05/19 07:00 109 16 92 Room Air 21 01/05/19 04:00 97.7 116 19 102/60 (74) 98 01/05/19 04:00 113 01/05/19 00:00 98.7 119 19 113/57 (75) 97 01/05/19 00:00 110 01/04/19 22:53 108 20 93 Room Air 21 01/04/19 22:43 105 20 93 Nasal Cannula 21 01/04/19 22:43 93 Nasal Cannula 2.0 28 01/04/19 22:42 105 20 93 Nasal Cannula 2.0 28 01/04/19 22:34 100 20 79 Room Air 21 01/04/19 22:34 Nasal Cannula 2.0 28 01/04/19 21:00 Nasal Cannula 2.0 01/04/19 20:00 118 01/04/19 17:50 98.9 01/04/19 17:45 98.9 01/04/19 16:00 124 01/04/19 16:00 101.8 80 21 114/60 (78) 100 Height (Feet): 6 Height (Inches): 1.00 Weight (Pounds): 130 Objective Gen: NAD, well appearing, alert HEENT: NCAT, MMM, EOMI, PERRL, No Oral lesion, no scleral icterus NECK: full range of motion, supple, no meningismus, No LAD, No JVD LUNGS: CTAB, No W/C, No Accessory muscle use CARDS: RRR, S1, S2, No M/R/G, ABD: Soft, NT, ND, No R/G, + BS, No HSM, No Masses : Deferred Ext: right ankle with two shallow ulcers, No surrounding erythema no purulence , Pulses 2+ B/L (DP, Rad): NEURO: A/O x 4, Strength and Sensation Grossly intact PSYCH: Mood/affect normal SKIN: Warm/dry, No rashes Microbiology Date/Time Source Procedure Growth Status 01/03/19 10:15 Blood Blood Culture - Preliminary NO GROWTH AFTER 24 HOURS Resulted 01/03/19 10:00 Blood Blood Culture - Preliminary NO GROWTH AFTER 24 HOURS Resulted 01/03/19 14:10 Urine,Ureter/Kidney Urine Culture - Preliminary Mixed Gram Positive Organism Resulted Laboratory Tests Test 01/05/19 05:45 01/05/19 11:00 White Blood Count 13.2 K/UL (4.8-10.8) H Red Blood Count 4.31 M/UL (4.70-6.10) L Hemoglobin 10.9 G/DL (14.2-18.0) L Hematocrit 34.6 % (42.0-52.0) L Mean Corpuscular Volume 80 FL (80-99) Mean Corpuscular Hemoglobin 25.3 PG (27.0-31.0) L Mean Corpuscular Hemoglobin Concent 31.5 G/DL (32.0-36.0) L Red Cell Distribution Width 16.6 % (11.6-14.8) H Platelet Count 405 K/UL (150-450) Mean Platelet Volume 6.1 FL (6.5-10.1) L Neutrophils (%) (Auto) 73.5 % (45.0-75.0) Lymphocytes (%) (Auto) 13.0 % (20.0-45.0) L Monocytes (%) (Auto) 8.0 % (1.0-10.0) Eosinophils (%) (Auto) 4.7 % (0.0-3.0) H Basophils (%) (Auto) 0.9 % (0.0-2.0) Sodium Level 141 MMOL/L (136-145) Potassium Level 3.6 MMOL/L (3.5-5.1) Chloride Level 105 MMOL/L (98-107) Carbon Dioxide Level 26 MMOL/L (21-32) Anion Gap 10 mmol/L (5-15) Blood Urea Nitrogen 31 mg/dL (7-18) H Creatinine 1.9 MG/DL (0.55-1.30) H Estimat Glomerular Filtration Rate 42.8 mL/min (>60) Glucose Level 97 MG/DL (74-106) Calcium Level 8.2 MG/DL (8.5-10.1) L Total Bilirubin 0.4 MG/DL (0.2-1.0) Aspartate Amino Transf (AST/SGOT) 16 U/L (15-37) Alanine Aminotransferase (ALT/SGPT) 18 U/L (12-78) Alkaline Phosphatase 73 U/L (46-116) Pro-B-Type Natriuretic Peptide 558 pg/mL (0-125) H Total Protein 7.6 G/DL (6.4-8.2) Albumin 1.8 G/DL (3.4-5.0) L Globulin 5.8 g/dL Albumin/Globulin Ratio 0.3 (1.0-2.7) L Vancomycin Level Trough 11.0 ug/mL (5.0-12.0) Current Medications Medications (Trade) Dose Ordered Sig/Aminata Route PRN Reason Start Time Stop Time Status Last Admin Dose Admin Acetaminophen (Tylenol) 650 mg Q6H PRN ORAL Mild Pain/Temp > 100.5 01/03/19 16:00 01/30/19 15:59 01/05/19 15:08 Acetylcysteine (Mucomyst) 100 mg TIDRT N 01/03/19 19:00 01/26/19 12:59 01/05/19 12:51 Amlodipine Besylate (Norvasc) 10 mg DAILY ORAL 01/04/19 09:00 01/21/19 08:59 01/05/19 09:25 Budesonide (Pulmicort) 0.25 mg Q12HRT N 01/03/19 22:00 02/02/19 21:59 01/05/19 09:42 Ceftriaxone Sodium 1 gm/ Dextrose 55 ml @ 110 mls/hr DAILY IVPB 01/04/19 09:00 01/10/19 10:59 01/04/19 13:18 Clopidogrel Bisulfate (Plavix) 75 mg DAILY ORAL 01/04/19 09:00 01/21/19 08:59 01/05/19 09:25 Dextrose (Dextrose 50%) 25 ml Q30M PRN IV Hypoglycemia 01/03/19 15:30 01/21/19 07:29 Dextrose (Dextrose 50%) 50 ml Q30M PRN IV Hypoglycemia 01/03/19 15:30 01/21/19 07:29 Heparin Sodium (Porcine) (Heparin 5000 units/ml) 5,000 units EVERY 12 HOURS SUBQ 01/03/19 21:00 01/21/19 08:59 Hydromorphone HCl (Dilaudid) 3 mg Q3H PRN IVP Severe Pain (Pain Scale 7-10) 01/03/19 15:30 01/07/19 15:29 01/05/19 15:08 Levalbuterol HCl (Xopenex) 1.25 mg Q4H PRN HHN Shortness of Breath 01/03/19 15:30 01/08/19 15:29 01/05/19 07:53 Levetiracetam (Keppra) 250 mg Q12HR ORAL 01/03/19 21:00 01/30/19 08:59 01/05/19 09:25 Mirtazapine (Remeron) 30 mg BEDTIME ORAL 01/03/19 21:00 01/23/19 20:59 01/04/19 21:19 Ondansetron HCl (Zofran) 4 mg Q6H PRN IVP Nausea & Vomiting 01/03/19 15:30 01/21/19 15:29 Vancomycin HCl (Vanco rx to dose) 1 ea DAILY PRN MISC Per rx protocol 01/03/19 15:30 02/02/19 15:29 Vancomycin HCl 750 mg/Sodium Chloride 275 ml @ 183.333 mls/hr Q24H IVPB 01/04/19 12:00 01/09/19 11:59 01/05/19 12:19 Jessica Parry M.D. Jan 05, 2019 15:41
[2019-01-05 16:00] VITALS: BP 140/64
[2019-01-05] MEDS: Cefepime HCl 1 GM in D5W 55 ML IVPB SCH (17:37)
--- NOTE | 2019-01-05 18:30 | NUR ---
NURSE NOTES: Influenza A/B collected and sent to lab. Specimen container for sputum culture at pt's bedside, instructions given to pt. Dr Parry saw pt at bedside.
--- NOTE | 2019-01-05 19:30 | NUR ---
HAND-OFF: Report given to Bradford WHITE. Pt is resting in bed in stable condition. Endorsed plan of care.
--- NOTE | 2019-01-05 19:41 | NUR ---
NURSE NOTES: Pt received from Abril Arechiga RN alert and oriented x4, currently resting in bed, no s/s of acute distress at this time. IV site asymptomatic and patent. Bed in lowest position, call light and belongings within reach.
[2019-01-05 20:00] VITALS: BP 112/59
--- NOTE | 2019-01-05 20:15 | NUR ---
NURSE NOTES: RN entered room and found pt was not on 2L NC, saturating at 88%. Pt stated, "I feel ok, I don't want it on right now. I just want to take a break from it." RN educated pt on why he needs the oxygen and the risks and benefits of being on and off it, pt nodded his head, "I don't care, I feel ok right now. I will put it on later." Will continue to monitor.
[2019-01-06] VITALS: BP 124/67
[2019-01-06 04:00] VITALS: BP 111/61
--- NOTE | 2019-01-06 07:12 | NUR ---
HAND-OFF: Report given to CHRISTOPHER Simmons. No acute distress.
--- NOTE | 2019-01-06 07:37 | NUR ---
NURSE NOTES: Received report from CHRISTOPHER Felder. Patient in bed resting, no active s/s cardiac, respiratory distress noticed at this time. Patient on 3L via NC, AO x4, ST with HR 113. IV at left upper arm 24G, asymptomatic, patent, intact. Bed in lowest position, side rails up x2, call light within reach. Will continue to monitor.
[2019-01-06 07:56] LABS: BASOPHILS % (AUTO) 1.3 % (0.0-2.0); EOSINOPHILS % (AUTO) 6.6 % (0.0-3.0); HEMOGLOBIN 10.4 G/DL (14.2-18.0); LYMPHOCYTES % (AUTO) 14.6 % (20.0-45.0); MEAN CORPUSCULAR VOLUME 82 FL (80-99); MONOCYTES % (AUTO) 7.1 % (1.0-10.0); NEUTROPHILS % (AUTO) 70.4 % (45.0-75.0); PLATELET COUNT 411 K/UL (150-450); RED BLOOD COUNT 4.13 M/UL (4.70-6.10); RED CELL DISTRIBUTION WIDTH 16.2 % (11.6-14.8); WHITE BLOOD COUNT 11.2 K/UL (4.8-10.8)
[2019-01-06 08:00] VITALS: BP 94/59
[2019-01-06] MEDS: Heparin 5000 units/ml inj SUBQ SCH ×2 (08:15→21:50)
[2019-01-06 08:16] LABS: ANION GAP 10 mmol/L (5-15); BLOOD UREA NITROGEN 24 mg/dL (7-18); CALCIUM 8.3 MG/DL (8.5-10.1); CARBON DIOXIDE 27 MMOL/L (21-32); CHLORIDE 104 MMOL/L (98-107); CREATININE 1.5 MG/DL (0.55-1.30); POTASSIUM 3.5 MMOL/L (3.5-5.1); SODIUM 140 MMOL/L (136-145)
[2019-01-06] MEDS: Budesonide HHN 0.25mg/2ml ud HHN SCH ×2 (11:42→22:41)
[2019-01-06 12:00] VITALS: BP 129/73
--- NOTE | 2019-01-06 12:14 | Pulmonology Progress Note ---
Assessment/Plan Problems: (1) COPD exacerbation (2) Acute bronchitis (3) Hypothyroidism (4) CAD (coronary artery disease) (5) Severe protein-calorie malnutrition (6) Chronic ulcer of right leg Assessment/Plan still tachy, but lower than yesterday no new complains renal f/u respiratory treatment wound care dc planning Subjective ROS Limited/Unobtainable: No Constitutional: Reports: no symptoms HEENT: Repors: no symptoms Allergies: Coded Allergies: EGG (Verified Allergy, Unknown, 09/28/18) MEPERIDINE (Verified Allergy, Unknown, 09/28/18) MORPHINE (Verified Allergy, Unknown, 09/28/18) NITROGLYCERIN (Verified Allergy, Unknown, hives, 09/28/18) Objective Last 24 Hour Vital Signs Date Time Temp Pulse Resp B/P (MAP) Pulse Ox O2 Delivery O2 Flow Rate FiO2 01/06/19 11:48 102 20 97 Nasal Cannula 2.0 28 01/06/19 11:42 101 20 93 Room Air 21 01/06/19 09:00 Nasal Cannula 2.0 01/06/19 08:15 106 94/59 01/06/19 08:00 100 01/06/19 08:00 98.4 103 18 94/59 (71) 95 01/06/19 07:42 Room Air 01/06/19 07:42 Room Air 01/06/19 04:00 113 01/06/19 04:00 99.2 89 18 111/61 (78) 93 01/06/19 00:00 109 01/06/19 00:00 98.8 121 18 124/67 (86) 95 01/05/19 21:00 Nasal Cannula 2.0 01/05/19 20:03 89 16 93 Room Air 21 01/05/19 20:00 97.6 100 17 112/59 (76) 91 01/05/19 20:00 93 01/05/19 19:54 90 16 91 Room Air 21 01/05/19 16:00 101.6 120 22 140/64 (89) 92 01/05/19 16:00 117 01/05/19 15:38 101.0 01/05/19 15:38 98.8 01/05/19 12:58 103 16 95 Room Air 21 01/05/19 12:57 105 16 94 Room Air 21 01/05/19 12:51 109 16 92 Room Air 21 Intake and Output 01/05/19 01/06/19 19:00 07:00 Intake Total 630 ml Output Total 300 ml 350 ml Balance 330 ml -350 ml Intake Oral 630 ml Output Urine Total 300 ml 350 ml Objective General Appearance: cachectic HEENT: normocephalic Respiratory/Chest: chest wall non-tender, lungs clear, decrease breath sounds Cardiovascular: normal peripheral pulses, normal rate Abdomen: normal bowel sounds, soft, non tender Extremities: no cyanosis Skin: no rash Microbiology Date/Time Source Procedure Growth Status 01/04/19 14:45 Blood Blood Culture - Preliminary NO GROWTH AFTER 24 HOURS Resulted 01/04/19 14:45 Blood Blood Culture - Preliminary NO GROWTH AFTER 24 HOURS Resulted 01/05/19 18:46 Nasopharynx Influenza Types A,B Antigen (JEROME) - Final Complete 01/03/19 14:10 Urine,Ureter/Kidney Urine Culture - Final Mixed Gram Positive Organism Complete Laboratory Tests 01/06/19 06:48: White Blood Count 11.2H, Red Blood Count 4.13L, Hemoglobin 10.4L, Hematocrit 34.0L, Mean Corpuscular Volume 82, Mean Corpuscular Hemoglobin 25.1L, Mean Corpuscular Hemoglobin Concent 30.6L, Red Cell Distribution Width 16.2H, Platelet Count 411, Mean Platelet Volume 6.1L, Neutrophils (%) (Auto) 70.4, Lymphocytes (%) (Auto) 14.6L, Monocytes (%) (Auto) 7.1, Eosinophils (%) (Auto) 6.6H, Basophils (%) (Auto) 1.3, Sodium Level 140, Potassium Level 3.5, Chloride Level 104, Carbon Dioxide Level 27, Anion Gap 10, Blood Urea Nitrogen 24H, Creatinine 1.5H, Estimat Glomerular Filtration Rate 56.2, Glucose Level 95, Calcium Level 8.3L Current Medications Medications (Trade) Dose Ordered Sig/Aminata Route PRN Reason Start Time Stop Time Status Last Admin Dose Admin Acetaminophen (Tylenol) 650 mg Q6H PRN ORAL Mild Pain/Temp > 100.5 01/03/19 16:00 01/30/19 15:59 01/05/19 15:08 Acetylcysteine (Mucomyst) 100 mg TIDRT HHN 01/03/19 19:00 01/26/19 12:59 01/05/19 19:00 Amlodipine Besylate (Norvasc) 10 mg DAILY ORAL 01/04/19 09:00 01/21/19 08:59 01/05/19 09:25 Budesonide (Pulmicort) 0.25 mg Q12HRT HHN 01/03/19 22:00 02/02/19 21:59 01/06/19 11:42 Cefepime HCl 1 gm/ Dextrose 55 ml @ 110 mls/hr Q24H IVPB 01/05/19 17:00 01/12/19 16:59 01/05/19 17:37 Clopidogrel Bisulfate (Plavix) 75 mg DAILY ORAL 01/04/19 09:00 01/21/19 08:59 01/06/19 08:14 Dextrose (Dextrose 50%) 25 ml Q30M PRN IV Hypoglycemia 01/03/19 15:30 01/21/19 07:29 Dextrose (Dextrose 50%) 50 ml Q30M PRN IV Hypoglycemia 01/03/19 15:30 01/21/19 07:29 Heparin Sodium (Porcine) (Heparin 5000 units/ml) 5,000 units EVERY 12 HOURS SUBQ 01/03/19 21:00 01/21/19 08:59 Hydromorphone HCl (Dilaudid) 3 mg Q3H PRN IVP Severe Pain (Pain Scale 7-10) 01/03/19 15:30 01/07/19 15:29 01/06/19 09:24 Levalbuterol HCl (Xopenex) 1.25 mg Q4H PRN HHN Shortness of Breath 01/03/19 15:30 01/08/19 15:29 01/05/19 19:53 Levetiracetam (Keppra) 250 mg Q12HR ORAL 01/03/19 21:00 01/30/19 08:59 01/06/19 08:14 Mirtazapine (Remeron) 30 mg BEDTIME ORAL 01/03/19 21:00 01/23/19 20:59 01/05/19 21:41 Ondansetron HCl (Zofran) 4 mg Q6H PRN IVP Nausea & Vomiting 01/03/19 15:30 01/21/19 15:29 Vancomycin HCl (Vanco rx to dose) 1 ea DAILY PRN MISC Per rx protocol 01/03/19 15:30 02/02/19 15:29 Vancomycin HCl 750 mg/Sodium Chloride 275 ml @ 183.333 mls/hr Q24H IVPB 01/04/19 12:00 01/09/19 11:59 01/05/19 12:19 Jessie Magana MD Jan 06, 2019 12:14
--- NOTE | 2019-01-06 12:49 | General Progress Note ---
Assessment/Plan Problem List: (1) MDD (major depressive disorder), recurrent episode ICD Codes: F33.9 - Major depressive disorder, recurrent, unspecified SNOMED: 766599342 Assessment/Plan remeron 30mg po qhs provided ro/st Subjective 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: Reports: anxiety, depressed, emotional problems Allergies: Coded Allergies: EGG (Verified Allergy, Unknown, 09/28/18) MEPERIDINE (Verified Allergy, Unknown, 09/28/18) MORPHINE (Verified Allergy, Unknown, 09/28/18) NITROGLYCERIN (Verified Allergy, Unknown, hives, 09/28/18) Subjective the pt is the same Objective Last 24 Hour Vital Signs Date Time Temp Pulse Resp B/P (MAP) Pulse Ox O2 Delivery O2 Flow Rate FiO2 01/06/19 11:48 102 20 97 Nasal Cannula 2.0 28 01/06/19 11:42 101 20 93 Room Air 21 01/06/19 09:00 Nasal Cannula 2.0 01/06/19 08:15 106 94/59 01/06/19 08:00 100 01/06/19 08:00 98.4 103 18 94/59 (71) 95 01/06/19 07:42 Room Air 01/06/19 07:42 Room Air 01/06/19 04:00 113 01/06/19 04:00 99.2 89 18 111/61 (78) 93 01/06/19 00:00 109 01/06/19 00:00 98.8 121 18 124/67 (86) 95 01/05/19 21:00 Nasal Cannula 2.0 01/05/19 20:03 89 16 93 Room Air 21 01/05/19 20:00 97.6 100 17 112/59 (76) 91 01/05/19 20:00 93 01/05/19 19:54 90 16 91 Room Air 21 01/05/19 16:00 101.6 120 22 140/64 (89) 92 01/05/19 16:00 117 01/05/19 15:38 101.0 01/05/19 15:38 98.8 01/05/19 12:58 103 16 95 Room Air 21 01/05/19 12:57 105 16 94 Room Air 21 01/05/19 12:51 109 16 92 Room Air 21 Intake and Output 01/05/19 01/06/19 19:00 07:00 Intake Total 630 ml Output Total 300 ml 350 ml Balance 330 ml -350 ml Intake Oral 630 ml Output Urine Total 300 ml 350 ml Laboratory Tests 01/06/19 06:48: White Blood Count 11.2H, Red Blood Count 4.13L, Hemoglobin 10.4L, Hematocrit 34.0L, Mean Corpuscular Volume 82, Mean Corpuscular Hemoglobin 25.1L, Mean Corpuscular Hemoglobin Concent 30.6L, Red Cell Distribution Width 16.2H, Platelet Count 411, Mean Platelet Volume 6.1L, Neutrophils (%) (Auto) 70.4, Lymphocytes (%) (Auto) 14.6L, Monocytes (%) (Auto) 7.1, Eosinophils (%) (Auto) 6.6H, Basophils (%) (Auto) 1.3, Sodium Level 140, Potassium Level 3.5, Chloride Level 104, Carbon Dioxide Level 27, Anion Gap 10, Blood Urea Nitrogen 24H, Creatinine 1.5H, Estimat Glomerular Filtration Rate 56.2, Glucose Level 95, Calcium Level 8.3L Height (Feet): 6 Height (Inches): 1.00 Weight (Pounds): 125 General Appearance: no apparent distress, alert Neurologic: oriented x 3, responsive, depressed affect Rachael Buckley MD Jan 06, 2019 12:49
[2019-01-06] MEDS: Vancomycin 750 MG in NS 275 ML IVPB SCH (13:24)
--- NOTE | 2019-01-06 14:20 | General Progress Note ---
Assessment/Plan Problem List: (1) Acute and chronic respiratory failure ICD Codes: J96.20 - Acute and chronic respiratory failure, unspecified whether with hypoxia or hypercapnia SNOMED: 02142343 (2) Chest pain ICD Codes: R07.9 - Chest pain, unspecified SNOMED: 63342745 Qualifiers: Qualified Codes: R07.9 - Chest pain, unspecified (3) HTN (hypertension) ICD Codes: I10 - Hypertension SNOMED: 13584323 (4) COPD exacerbation ICD Codes: J44.1 - Obstructive chronic bronchitis with exacerbation SNOMED: 721590435 (5) Acute CHF (congestive heart failure) ICD Codes: I50.9 - Heart failure, unspecified SNOMED: 71148901 Qualifiers: Qualified Codes: I50.9 - Heart failure, unspecified Status: stable, progressing Assessment/Plan o2 pulmt x pt diet cbc bmp am dc to snf if clear Subjective Constitutional: Reports: weakness Respiratory: Reports: shortness of breath Allergies: Coded Allergies: EGG (Verified Allergy, Unknown, 09/28/18) MEPERIDINE (Verified Allergy, Unknown, 09/28/18) MORPHINE (Verified Allergy, Unknown, 09/28/18) NITROGLYCERIN (Verified Allergy, Unknown, hives, 09/28/18) All Systems: reviewed and negative except above Subjective o2nc sleepy in bed Objective Last 24 Hour Vital Signs Date Time Temp Pulse Resp B/P (MAP) Pulse Ox O2 Delivery O2 Flow Rate FiO2 01/06/19 12:00 98.8 109 18 129/73 (91) 94 01/06/19 11:48 102 20 97 Nasal Cannula 2.0 28 01/06/19 11:42 101 20 93 Room Air 21 01/06/19 09:00 Nasal Cannula 2.0 01/06/19 08:15 106 94/59 01/06/19 08:00 100 01/06/19 08:00 98.4 103 18 94/59 (71) 95 01/06/19 07:42 Room Air 01/06/19 07:42 Room Air 01/06/19 04:00 113 01/06/19 04:00 99.2 89 18 111/61 (78) 93 01/06/19 00:00 109 01/06/19 00:00 98.8 121 18 124/67 (86) 95 01/05/19 21:00 Nasal Cannula 2.0 01/05/19 20:03 89 16 93 Room Air 21 01/05/19 20:00 97.6 100 17 112/59 (76) 91 01/05/19 20:00 93 01/05/19 19:54 90 16 91 Room Air 21 01/05/19 16:00 101.6 120 22 140/64 (89) 92 01/05/19 16:00 117 01/05/19 15:38 101.0 01/05/19 15:38 98.8 Intake and Output 01/05/19 01/06/19 18:59 06:59 Intake Total 630 ml Output Total 300 ml 350 ml Balance 330 ml -350 ml Intake Oral 630 ml Output Urine Total 300 ml 350 ml Laboratory Tests 01/06/19 06:48: White Blood Count 11.2H, Red Blood Count 4.13L, Hemoglobin 10.4L, Hematocrit 34.0L, Mean Corpuscular Volume 82, Mean Corpuscular Hemoglobin 25.1L, Mean Corpuscular Hemoglobin Concent 30.6L, Red Cell Distribution Width 16.2H, Platelet Count 411, Mean Platelet Volume 6.1L, Neutrophils (%) (Auto) 70.4, Lymphocytes (%) (Auto) 14.6L, Monocytes (%) (Auto) 7.1, Eosinophils (%) (Auto) 6.6H, Basophils (%) (Auto) 1.3, Sodium Level 140, Potassium Level 3.5, Chloride Level 104, Carbon Dioxide Level 27, Anion Gap 10, Blood Urea Nitrogen 24H, Creatinine 1.5H, Estimat Glomerular Filtration Rate 56.2, Glucose Level 95, Calcium Level 8.3L Height (Feet): 6 Height (Inches): 1.00 Weight (Pounds): 125 General Appearance: lethargic Neck: normal inspection Cardiovascular: normal peripheral pulses, normal rate, regular rhythm Respiratory/Chest: chest wall non-tender, decreased breath sounds Abdomen: normal bowel sounds, non tender, soft Extremities: normal inspection Edema: 1+ Arm (L), 1+ Arm (R), 1+ Leg (L), 1+ Leg (R), 1+ Pedal (L), 1+ Pedal ( R), 1+ Generalized Edema: trace edema Neurologic: motor weakness Skin: normal pigmentation, warm/dry Fabio Tracey DO Jan 06, 2019 14:20
[2019-01-06] MEDS: Levalbuterol Inh UD 1.25mg/0.5ml HHN PRN ×2 (14:36→20:05)
--- NOTE | 2019-01-06 15:48 | Infectious Diseases Prog Note ---
Assessment/Plan Assessment/Plan 68 yo male with PMHx of COPD and CHF who presented to the ED on 12/21/18 with CP , SOB, N/V but no diarrhea. Sepsis- 2ry to PNA Leukocytosis, improving -01/05 CXR: Left basilar infiltrate, likely pneumonia. More questionable right infrahilar infiltrate. Probable left pleural effusion. Possible mild congestive changes 2/10 u/a neg -influenza sc neg Fever, improvig COPD Exacerbation -12/28 CXR: Slightly increasing interstitial markings bilaterally may be reflective developing mild interstitial edema or pneumonitis. Correlate clinically S/P Tx with Abx and Steroids Right ankle ulcers Do not appear to be infected. N/V - Resolved CHF HTN Hx of CAD - s/p CABG Plan - Empiric IV Vancomycin #4 and Cefepime #2 (abx d #4) for PNA -f/u Bcx x2 -01/05 SP Ceftriaxone #3 - 12/25/18 S/P Zosyn #4 -f/u sp cx -Cdiff if diarrhea Thank you for this consult. We will continue to follow the patient during this hospitalization. Subjective Allergies: Coded Allergies: EGG (Verified Allergy, Unknown, 09/28/18) MEPERIDINE (Verified Allergy, Unknown, 09/28/18) MORPHINE (Verified Allergy, Unknown, 09/28/18) NITROGLYCERIN (Verified Allergy, Unknown, hives, 09/28/18) Subjective Tm 101.6, now afebrile in ~24hrs wbc imporving at RA feeling better Bcx NTD tachycardia improving Objective Vital Signs Last 24 Hour Vital Signs Date Time Temp Pulse Resp B/P (MAP) Pulse Ox O2 Delivery O2 Flow Rate FiO2 01/06/19 14:46 102 16 92 Room Air 21 01/06/19 14:36 99 16 92 Room Air 21 01/06/19 14:36 21 01/06/19 12:00 98.8 109 18 129/73 (91) 94 01/06/19 12:00 104 01/06/19 11:48 102 20 97 Nasal Cannula 2.0 28 01/06/19 11:42 101 20 93 Room Air 21 01/06/19 09:00 Nasal Cannula 2.0 01/06/19 08:15 106 94/59 01/06/19 08:00 100 01/06/19 08:00 98.4 103 18 94/59 (71) 95 01/06/19 07:42 Room Air 01/06/19 07:42 Room Air 01/06/19 04:00 113 01/06/19 04:00 99.2 89 18 111/61 (78) 93 01/06/19 00:00 109 01/06/19 00:00 98.8 121 18 124/67 (86) 95 01/05/19 21:00 Nasal Cannula 2.0 01/05/19 20:03 89 16 93 Room Air 21 01/05/19 20:00 97.6 100 17 112/59 (76) 91 01/05/19 20:00 93 01/05/19 19:54 90 16 91 Room Air 21 01/05/19 16:00 101.6 120 22 140/64 (89) 92 01/05/19 16:00 117 Height (Feet): 6 Height (Inches): 1.00 Weight (Pounds): 125 Objective Gen: NAD, well appearing, alert HEENT: NCAT, MMM, EOMI, PERRL, No Oral lesion, no scleral icterus NECK: full range of motion, supple, no meningismus, No LAD, No JVD LUNGS: CTAB, No W/C, No Accessory muscle use CARDS: RRR, S1, S2, No M/R/G, ABD: Soft, NT, ND, No R/G, + BS, No HSM, No Masses : Deferred Ext: right ankle with two shallow ulcers, No surrounding erythema no purulence , Pulses 2+ B/L (DP, Rad): NEURO: A/O x 4, Strength and Sensation Grossly intact PSYCH: Mood/affect normal SKIN: Warm/dry, No rashes Microbiology Date/Time Source Procedure Growth Status 01/04/19 14:45 Blood Blood Culture - Preliminary NO GROWTH AFTER 24 HOURS Resulted 01/04/19 14:45 Blood Blood Culture - Preliminary NO GROWTH AFTER 24 HOURS Resulted 01/05/19 18:46 Nasopharynx Influenza Types A,B Antigen (JEROME) - Final Complete Laboratory Tests Test 01/06/19 06:48 White Blood Count 11.2 K/UL (4.8-10.8) H Red Blood Count 4.13 M/UL (4.70-6.10) L Hemoglobin 10.4 G/DL (14.2-18.0) L Hematocrit 34.0 % (42.0-52.0) L Mean Corpuscular Volume 82 FL (80-99) Mean Corpuscular Hemoglobin 25.1 PG (27.0-31.0) L Mean Corpuscular Hemoglobin Concent 30.6 G/DL (32.0-36.0) L Red Cell Distribution Width 16.2 % (11.6-14.8) H Platelet Count 411 K/UL (150-450) Mean Platelet Volume 6.1 FL (6.5-10.1) L Neutrophils (%) (Auto) 70.4 % (45.0-75.0) Lymphocytes (%) (Auto) 14.6 % (20.0-45.0) L Monocytes (%) (Auto) 7.1 % (1.0-10.0) Eosinophils (%) (Auto) 6.6 % (0.0-3.0) H Basophils (%) (Auto) 1.3 % (0.0-2.0) Sodium Level 140 MMOL/L (136-145) Potassium Level 3.5 MMOL/L (3.5-5.1) Chloride Level 104 MMOL/L (98-107) Carbon Dioxide Level 27 MMOL/L (21-32) Anion Gap 10 mmol/L (5-15) Blood Urea Nitrogen 24 mg/dL (7-18) H Creatinine 1.5 MG/DL (0.55-1.30) H Estimat Glomerular Filtration Rate 56.2 mL/min (>60) Glucose Level 95 MG/DL (74-106) Calcium Level 8.3 MG/DL (8.5-10.1) L Current Medications Medications (Trade) Dose Ordered Sig/Aminata Route PRN Reason Start Time Stop Time Status Last Admin Dose Admin Acetaminophen (Tylenol) 650 mg Q6H PRN ORAL Mild Pain/Temp > 100.5 01/03/19 16:00 01/30/19 15:59 01/05/19 15:08 Acetylcysteine (Mucomyst) 100 mg TIDRT HHN 01/03/19 19:00 01/26/19 12:59 01/06/19 14:36 Amlodipine Besylate (Norvasc) 10 mg DAILY ORAL 01/04/19 09:00 01/21/19 08:59 01/05/19 09:25 Budesonide (Pulmicort) 0.25 mg Q12HRT HHN 01/03/19 22:00 02/02/19 21:59 01/06/19 11:42 Cefepime HCl 1 gm/ Dextrose 55 ml @ 110 mls/hr Q24H IVPB 01/05/19 17:00 01/12/19 16:59 01/05/19 17:37 Clopidogrel Bisulfate (Plavix) 75 mg DAILY ORAL 01/04/19 09:00 01/21/19 08:59 01/06/19 08:14 Dextrose (Dextrose 50%) 25 ml Q30M PRN IV Hypoglycemia 01/03/19 15:30 01/21/19 07:29 Dextrose (Dextrose 50%) 50 ml Q30M PRN IV Hypoglycemia 01/03/19 15:30 01/21/19 07:29 Heparin Sodium (Porcine) (Heparin 5000 units/ml) 5,000 units EVERY 12 HOURS SUBQ 01/03/19 21:00 01/21/19 08:59 Hydromorphone HCl (Dilaudid) 3 mg Q3H PRN IVP Severe Pain (Pain Scale 7-10) 01/03/19 15:30 01/07/19 15:29 01/06/19 14:06 Levalbuterol HCl (Xopenex) 1.25 mg Q4H PRN HHN Shortness of Breath 01/03/19 15:30 01/08/19 15:29 01/06/19 14:36 Levetiracetam (Keppra) 250 mg Q12HR ORAL 01/03/19 21:00 01/30/19 08:59 01/06/19 08:14 Mirtazapine (Remeron) 30 mg BEDTIME ORAL 01/03/19 21:00 01/23/19 20:59 01/05/19 21:41 Ondansetron HCl (Zofran) 4 mg Q6H PRN IVP Nausea & Vomiting 01/03/19 15:30 01/21/19 15:29 Vancomycin HCl (Vanco rx to dose) 1 ea DAILY PRN MISC Per rx protocol 01/03/19 15:30 02/02/19 15:29 Vancomycin HCl 750 mg/Sodium Chloride 275 ml @ 183.333 mls/hr Q24H IVPB 01/04/19 12:00 01/09/19 11:59 01/06/19 13:24 Jessica Parry M.D. Jan 06, 2019 15:48
[2019-01-06 16:00] VITALS: BP 132/58
[2019-01-06] MEDS: Cefepime HCl 1 GM in D5W 55 ML IVPB SCH (16:30)
--- NOTE | 2019-01-06 19:21 | NUR ---
HAND-OFF: Report given to CHRISTOPHER Gonzalez.
--- NOTE | 2019-01-06 19:22 | NUR ---
NURSE NOTES: Received report from Eugenio Moore RN. Pt is resting in the bed w/o distress in RA,also 3L NC is ready. Pt was instructed to use it and pt refused to use NC at this time. Safety measures are applied with bed alarm on, bed in lowest position, side rails up x2 padded,suction is ready at the bedside and breaks are engaged. Call light and side table, and urianl are within reach. SR in the monitor. IV is at WES 24G, SL, asymptomatic. Will follow plans of care.
[2019-01-06 20:00] VITALS: BP 127/59
--- NOTE | 2019-01-06 20:57 | Cardiology Progress Note ---
Assessment/Plan Assessment/Plan 1. Chronic recurrent chest pain. 2. Visible foreign body in the left sternal area consistent with sternal wires. 3. Coronary artery disease, status post coronary artery bypass grafting and prior PCI. 4. COPD. 5. Chronic pain. 6. Osteomyelitis of lower extremity. 7. Tachycardia was not able to see cts at [facility] he says they did not answer their phone!! chest wall is ternder hn q4 hour prn tachycardic may be related to hhn nto that bad now diuretic prn may be able to used cardizem instead of norvasc if tachy in future Subjective Cardiovascular: Reports: chest pain Respiratory: Reports: SOB with excertion Gastrointestinal/Abdominal: Denies: abdominal pain Genitourinary: Denies: burning Subjective poor appetite Objective Last 24 Hour Vital Signs Date Time Temp Pulse Resp B/P (MAP) Pulse Ox O2 Delivery O2 Flow Rate FiO2 01/06/19 20:15 111 22 96 Nasal Cannula 2.0 28 01/06/19 20:05 21 01/06/19 20:05 110 24 82 Room Air 21 01/06/19 16:41 98.2 01/06/19 16:00 100.1 108 20 132/58 (82) 95 01/06/19 16:00 105 01/06/19 14:46 102 16 92 Room Air 21 01/06/19 14:36 99 16 92 Room Air 21 01/06/19 14:36 21 01/06/19 12:00 98.8 109 18 129/73 (91) 94 01/06/19 12:00 104 01/06/19 11:48 102 20 97 Nasal Cannula 2.0 28 01/06/19 11:42 101 20 93 Room Air 21 01/06/19 09:00 Nasal Cannula 2.0 01/06/19 08:15 106 94/59 01/06/19 08:00 100 01/06/19 08:00 98.4 103 18 94/59 (71) 95 01/06/19 07:42 Room Air 01/06/19 07:42 Room Air 01/06/19 04:00 113 01/06/19 04:00 99.2 89 18 111/61 (78) 93 01/06/19 00:00 109 01/06/19 00:00 98.8 121 18 124/67 (86) 95 01/05/19 21:00 Nasal Cannula 2.0 General Appearance: no apparent distress, alert Cardiovascular: normal rate Respiratory/Chest: decreased breath sounds Abdomen: normal bowel sounds, non tender, soft Extremities: no swelling Intake and Output 01/05/19 01/06/19 18:59 06:59 Intake Total 630 ml Output Total 300 ml 350 ml Balance 330 ml -350 ml Intake Oral 630 ml Output Urine Total 300 ml 350 ml Laboratory Tests Test 01/06/19 06:48 White Blood Count 11.2 K/UL (4.8-10.8) H Red Blood Count 4.13 M/UL (4.70-6.10) L Hemoglobin 10.4 G/DL (14.2-18.0) L Hematocrit 34.0 % (42.0-52.0) L Mean Corpuscular Volume 82 FL (80-99) Mean Corpuscular Hemoglobin 25.1 PG (27.0-31.0) L Mean Corpuscular Hemoglobin Concent 30.6 G/DL (32.0-36.0) L Red Cell Distribution Width 16.2 % (11.6-14.8) H Platelet Count 411 K/UL (150-450) Mean Platelet Volume 6.1 FL (6.5-10.1) L Neutrophils (%) (Auto) 70.4 % (45.0-75.0) Lymphocytes (%) (Auto) 14.6 % (20.0-45.0) L Monocytes (%) (Auto) 7.1 % (1.0-10.0) Eosinophils (%) (Auto) 6.6 % (0.0-3.0) H Basophils (%) (Auto) 1.3 % (0.0-2.0) Sodium Level 140 MMOL/L (136-145) Potassium Level 3.5 MMOL/L (3.5-5.1) Chloride Level 104 MMOL/L (98-107) Carbon Dioxide Level 27 MMOL/L (21-32) Anion Gap 10 mmol/L (5-15) Blood Urea Nitrogen 24 mg/dL (7-18) H Creatinine 1.5 MG/DL (0.55-1.30) H Estimat Glomerular Filtration Rate 56.2 mL/min (>60) Glucose Level 95 MG/DL (74-106) Calcium Level 8.3 MG/DL (8.5-10.1) L Microbiology Date/Time Source Procedure Growth Status 01/04/19 14:45 Blood Blood Culture - Preliminary NO GROWTH AFTER 24 HOURS Resulted 01/04/19 14:45 Blood Blood Culture - Preliminary NO GROWTH AFTER 24 HOURS Resulted 01/05/19 18:46 Nasopharynx Influenza Types A,B Antigen (JEROME) - Final Complete Sergio Anaya MD Jan 06, 2019 20:57
[2019-01-07] VITALS: BP 116/58
--- NOTE | 2019-01-07 01:00 | NUR ---
NURSE NOTES: Pt was sleeping in the bed w/o distress in RA. 3L NC is ready to use by pt. Will continue to monitor.
[2019-01-07 04:00] VITALS: BP 130/66
--- NOTE | 2019-01-07 06:42 | General Progress Note ---
Assessment/Plan Problem List: (1) Acute and chronic respiratory failure ICD Codes: J96.20 - Acute and chronic respiratory failure, unspecified whether with hypoxia or hypercapnia SNOMED: 47582022 (2) Chest pain ICD Codes: R07.9 - Chest pain, unspecified SNOMED: 60922919 Qualifiers: Qualified Codes: R07.9 - Chest pain, unspecified (3) HTN (hypertension) ICD Codes: I10 - Hypertension SNOMED: 09475989 (4) COPD exacerbation ICD Codes: J44.1 - Obstructive chronic bronchitis with exacerbation SNOMED: 323882253 (5) Acute CHF (congestive heart failure) ICD Codes: I50.9 - Heart failure, unspecified SNOMED: 48747651 Qualifiers: Qualified Codes: I50.9 - Heart failure, unspecified Status: stable, progressing Assessment/Plan o2 pulmt x pt diet cbc bmp am dc to snf if clear Subjective Constitutional: Reports: weakness Allergies: Coded Allergies: EGG (Verified Allergy, Unknown, 09/28/18) MEPERIDINE (Verified Allergy, Unknown, 09/28/18) MORPHINE (Verified Allergy, Unknown, 09/28/18) NITROGLYCERIN (Verified Allergy, Unknown, hives, 09/28/18) All Systems: reviewed and negative except above Subjective o2nc sleepy in bed Objective Last 24 Hour Vital Signs Date Time Temp Pulse Resp B/P (MAP) Pulse Ox O2 Delivery O2 Flow Rate FiO2 01/07/19 00:00 98.5 110 18 116/58 (77) 95 01/06/19 23:24 115 01/06/19 22:52 113 20 97 Nasal Cannula 2.0 28 01/06/19 22:41 119 18 80 Room Air 21 01/06/19 21:00 Nasal Cannula 3.0 01/06/19 20:15 111 22 96 Nasal Cannula 2.0 28 01/06/19 20:05 21 01/06/19 20:05 110 24 82 Room Air 21 01/06/19 20:00 98.2 99 18 127/59 (81) 100 01/06/19 19:29 104 01/06/19 16:41 98.2 01/06/19 16:00 100.1 108 20 132/58 (82) 95 01/06/19 16:00 105 01/06/19 14:46 102 16 92 Room Air 21 01/06/19 14:36 99 16 92 Room Air 21 01/06/19 14:36 21 01/06/19 12:00 98.8 109 18 129/73 (91) 94 01/06/19 12:00 104 01/06/19 11:48 102 20 97 Nasal Cannula 2.0 28 01/06/19 11:42 101 20 93 Room Air 21 01/06/19 09:00 Nasal Cannula 2.0 01/06/19 08:15 106 94/59 01/06/19 08:00 100 01/06/19 08:00 98.4 103 18 94/59 (71) 95 01/06/19 07:42 Room Air 01/06/19 07:42 Room Air Intake and Output 01/06/19 01/07/19 19:00 07:00 Intake Total 600 ml Output Total 600 ml Balance 0 ml Intake Oral 600 ml Output Urine Total 600 ml Laboratory Tests 01/06/19 06:48: White Blood Count 11.2H, Red Blood Count 4.13L, Hemoglobin 10.4L, Hematocrit 34.0L, Mean Corpuscular Volume 82, Mean Corpuscular Hemoglobin 25.1L, Mean Corpuscular Hemoglobin Concent 30.6L, Red Cell Distribution Width 16.2H, Platelet Count 411, Mean Platelet Volume 6.1L, Neutrophils (%) (Auto) 70.4, Lymphocytes (%) (Auto) 14.6L, Monocytes (%) (Auto) 7.1, Eosinophils (%) (Auto) 6.6H, Basophils (%) (Auto) 1.3, Sodium Level 140, Potassium Level 3.5, Chloride Level 104, Carbon Dioxide Level 27, Anion Gap 10, Blood Urea Nitrogen 24H, Creatinine 1.5H, Estimat Glomerular Filtration Rate 56.2, Glucose Level 95, Calcium Level 8.3L Height (Feet): 6 Height (Inches): 1.00 Weight (Pounds): 125 General Appearance: lethargic EENT: normal ENT inspection Neck: normal alignment Cardiovascular: normal peripheral pulses, normal rate, regular rhythm Respiratory/Chest: chest wall non-tender, decreased breath sounds Abdomen: normal bowel sounds, non tender, soft Extremities: normal inspection Edema: no edema noted Arm (L), no edema noted Arm (R), no edema noted Leg (L), no edema noted Leg (R), no edema noted Pedal (L), no edema noted Pedal (R), no edema noted Generalized Neurologic: motor weakness Skin: normal pigmentation, warm/dry Fabio Tracey DO Jan 07, 2019 06:42
[2019-01-07 07:25] LABS: BASOPHILS % (AUTO) 1.5 % (0.0-2.0); EOSINOPHILS % (AUTO) 6.6 % (0.0-3.0); HEMATOCRIT 32.4 % (42.0-52.0); HEMOGLOBIN 9.9 G/DL (14.2-18.0); LYMPHOCYTES % (AUTO) 14.1 % (20.0-45.0); MEAN CORPUSCULAR VOLUME 82 FL (80-99); MONOCYTES % (AUTO) 10.8 % (1.0-10.0); NEUTROPHILS % (AUTO) 67.1 % (45.0-75.0); PLATELET COUNT 403 K/UL (150-450); RED BLOOD COUNT 3.93 M/UL (4.70-6.10); RED CELL DISTRIBUTION WIDTH 16.6 % (11.6-14.8); WHITE BLOOD COUNT 9.2 K/UL (4.8-10.8)
--- NOTE | 2019-01-07 07:27 | NUR ---
NURSE NOTES: Received report from CHRISTOPHER Gonzalez. Patient in bed resting, no active s/s cardiac, respiratory distress noticed at this time, AO x4. ST with HR 116. Patient has nasal cannula at bedside, refuse to wear at this time, stated he will put it when needed. IV on left upper arm 24G, patent, intact. Bed in lowest position, side rails up x3, call light within reach. Will continue to monitor. .
[2019-01-07 07:37] LABS: ANION GAP 8 mmol/L (5-15); BLOOD UREA NITROGEN 19 mg/dL (7-18); CALCIUM 7.8 MG/DL (8.5-10.1); CARBON DIOXIDE 26 MMOL/L (21-32); CHLORIDE 106 MMOL/L (98-107); CREATININE 1.3 MG/DL (0.55-1.30); POTASSIUM 3.5 MMOL/L (3.5-5.1); SODIUM 140 MMOL/L (136-145)
[2019-01-07 08:00] VITALS: BP 125/61
[2019-01-07] MEDS: Levalbuterol Inh UD 1.25mg/0.5ml HHN PRN ×2 (08:05→20:22)
[2019-01-07] MEDS: Heparin 5000 units/ml inj SUBQ SCH ×2 (09:07→21:09)
[2019-01-07] MEDS: Budesonide HHN 0.25mg/2ml ud HHN SCH ×2 (10:00→21:40)
--- NOTE | 2019-01-07 11:36 | Pulmonology Progress Note ---
Assessment/Plan Problems: (1) Nosocomial pneumonia (2) COPD exacerbation (3) Acute bronchitis (4) Hypothyroidism (5) CAD (coronary artery disease) (6) Severe protein-calorie malnutrition (7) Chronic ulcer of right leg Assessment/Plan still tachy, but lower than yesterday cxr showing RLL infiltrate no new complains renal f/u respiratory treatment wound care Subjective ROS Limited/Unobtainable: No Constitutional: Reports: no symptoms HEENT: Repors: no symptoms Respiratory: Reports: no symptoms Allergies: Coded Allergies: EGG (Verified Allergy, Unknown, 09/28/18) MEPERIDINE (Verified Allergy, Unknown, 09/28/18) MORPHINE (Verified Allergy, Unknown, 09/28/18) NITROGLYCERIN (Verified Allergy, Unknown, hives, 09/28/18) Objective Last 24 Hour Vital Signs Date Time Temp Pulse Resp B/P (MAP) Pulse Ox O2 Delivery O2 Flow Rate FiO2 01/07/19 10:25 Room Air 21 01/07/19 10:24 Room Air 21 01/07/19 09:06 107 125/61 01/07/19 09:00 Nasal Cannula 3.0 01/07/19 08:16 114 22 98 Room Air 21 01/07/19 08:06 21 01/07/19 08:06 81 24 96 Room Air 01/07/19 08:00 114 01/07/19 08:00 98.9 107 16 125/61 (82) 95 01/07/19 04:00 98.2 98 18 130/66 (87) 93 01/07/19 03:20 88 01/07/19 00:00 98.5 110 18 116/58 (77) 95 01/06/19 23:24 115 01/06/19 22:52 113 20 97 Nasal Cannula 2.0 28 01/06/19 22:41 119 18 80 Room Air 21 01/06/19 21:00 Nasal Cannula 3.0 01/06/19 20:15 111 22 96 Nasal Cannula 2.0 28 01/06/19 20:05 21 01/06/19 20:05 110 24 82 Room Air 21 01/06/19 20:00 98.2 99 18 127/59 (81) 100 01/06/19 19:29 104 01/06/19 16:41 98.2 01/06/19 16:00 100.1 108 20 132/58 (82) 95 01/06/19 16:00 105 01/06/19 14:46 102 16 92 Room Air 21 01/06/19 14:36 99 16 92 Room Air 21 01/06/19 14:36 21 01/06/19 12:00 98.8 109 18 129/73 (91) 94 01/06/19 12:00 104 01/06/19 11:48 102 20 97 Nasal Cannula 2.0 28 01/06/19 11:42 101 20 93 Room Air 21 Intake and Output 01/06/19 01/07/19 19:00 07:00 Intake Total 600 ml 240 ml Output Total 600 ml 500 ml Balance 0 ml -260 ml Intake Oral 600 ml 240 ml Output Urine Total 600 ml 500 ml Objective General Appearance: cachectic HEENT: normocephalic Respiratory/Chest: chest wall non-tender, lungs clear, decrease breath sounds Cardiovascular: normal peripheral pulses, normal rate Abdomen: normal bowel sounds, soft, non tender Extremities: no cyanosis Skin: no rash Microbiology Date/Time Source Procedure Growth Status 01/04/19 14:45 Blood Blood Culture - Preliminary NO GROWTH AFTER 24 HOURS Resulted 01/04/19 14:45 Blood Blood Culture - Preliminary NO GROWTH AFTER 24 HOURS Resulted 01/05/19 18:46 Nasopharynx Influenza Types A,B Antigen (JEROME) - Final Complete Laboratory Tests 01/07/19 06:35: White Blood Count 9.2, Red Blood Count 3.93L, Hemoglobin 9.9L, Hematocrit 32.4L , Mean Corpuscular Volume 82, Mean Corpuscular Hemoglobin 25.1L, Mean Corpuscular Hemoglobin Concent 30.5L, Red Cell Distribution Width 16.6H, Platelet Count 403, Mean Platelet Volume 6.0L, Neutrophils (%) (Auto) 67.1, Lymphocytes (%) (Auto) 14.1L, Monocytes (%) (Auto) 10.8H, Eosinophils (%) (Auto ) 6.6H, Basophils (%) (Auto) 1.5, Sodium Level 140, Potassium Level 3.5, Chloride Level 106, Carbon Dioxide Level 26, Anion Gap 8, Blood Urea Nitrogen 19H, Creatinine 1.3, Estimat Glomerular Filtration Rate > 60, Glucose Level 88, Calcium Level 7.8L Current Medications Medications (Trade) Dose Ordered Sig/Aminata Route PRN Reason Start Time Stop Time Status Last Admin Dose Admin Acetaminophen (Tylenol) 650 mg Q6H PRN ORAL Mild Pain/Temp > 100.5 01/03/19 16:00 01/30/19 15:59 01/05/19 15:08 Acetylcysteine (Mucomyst) 100 mg TIDRT HHN 01/03/19 19:00 01/26/19 12:59 01/07/19 08:02 Amlodipine Besylate (Norvasc) 10 mg DAILY ORAL 01/04/19 09:00 01/21/19 08:59 01/07/19 09:06 Budesonide (Pulmicort) 0.25 mg Q12HRT HHN 01/03/19 22:00 02/02/19 21:59 01/06/19 22:41 Cefepime HCl 1 gm/ Dextrose 55 ml @ 110 mls/hr Q24H IVPB 01/05/19 17:00 01/12/19 16:59 01/06/19 16:30 Clopidogrel Bisulfate (Plavix) 75 mg DAILY ORAL 01/04/19 09:00 01/21/19 08:59 01/07/19 09:06 Dextrose (Dextrose 50%) 25 ml Q30M PRN IV Hypoglycemia 01/03/19 15:30 01/21/19 07:29 Dextrose (Dextrose 50%) 50 ml Q30M PRN IV Hypoglycemia 01/03/19 15:30 01/21/19 07:29 Heparin Sodium (Porcine) (Heparin 5000 units/ml) 5,000 units EVERY 12 HOURS SUBQ 01/03/19 21:00 01/21/19 08:59 01/07/19 09:07 Hydromorphone HCl (Dilaudid) 3 mg Q3H PRN IVP Severe Pain (Pain Scale 7-10) 01/03/19 15:30 01/07/19 15:29 01/07/19 09:05 Levalbuterol HCl (Xopenex) 1.25 mg Q4H PRN HHN Shortness of Breath 01/03/19 15:30 01/08/19 15:29 01/07/19 08:05 Levetiracetam (Keppra) 250 mg Q12HR ORAL 01/03/19 21:00 01/30/19 08:59 01/07/19 09:05 Mirtazapine (Remeron) 30 mg BEDTIME ORAL 01/03/19 21:00 01/23/19 20:59 01/06/19 21:48 Ondansetron HCl (Zofran) 4 mg Q6H PRN IVP Nausea & Vomiting 01/03/19 15:30 01/21/19 15:29 Vancomycin HCl (Vanco rx to dose) 1 ea DAILY PRN MISC Per rx protocol 01/03/19 15:30 02/02/19 15:29 Vancomycin HCl 750 mg/Sodium Chloride 275 ml @ 183.333 mls/hr Q24H IVPB 01/04/19 12:00 01/09/19 11:59 01/06/19 13:24 Jessie Magana MD Jan 07, 2019 11:36
[2019-01-07 12:00] VITALS: BP 122/60
--- NOTE | 2019-01-07 12:18 | General Progress Note ---
Assessment/Plan Problem List: (1) MDD (major depressive disorder), recurrent episode ICD Codes: F33.9 - Major depressive disorder, recurrent, unspecified SNOMED: 870459466 Status: stable Assessment/Plan remeron 30mg po qhs provided ro/st Subjective 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: Reports: anxiety, depressed, emotional problems Allergies: Coded Allergies: EGG (Verified Allergy, Unknown, 09/28/18) MEPERIDINE (Verified Allergy, Unknown, 09/28/18) MORPHINE (Verified Allergy, Unknown, 09/28/18) NITROGLYCERIN (Verified Allergy, Unknown, hives, 09/28/18) Subjective the pt is the same asleep nad Objective Last 24 Hour Vital Signs Date Time Temp Pulse Resp B/P (MAP) Pulse Ox O2 Delivery O2 Flow Rate FiO2 01/07/19 10:25 Room Air 21 01/07/19 10:24 Room Air 21 01/07/19 09:06 107 125/61 01/07/19 09:00 Nasal Cannula 3.0 01/07/19 08:16 114 22 98 Room Air 21 01/07/19 08:06 21 01/07/19 08:06 81 24 96 Room Air 01/07/19 08:00 114 01/07/19 08:00 98.9 107 16 125/61 (82) 95 01/07/19 04:00 98.2 98 18 130/66 (87) 93 01/07/19 03:20 88 01/07/19 00:00 98.5 110 18 116/58 (77) 95 01/06/19 23:24 115 01/06/19 22:52 113 20 97 Nasal Cannula 2.0 28 01/06/19 22:41 119 18 80 Room Air 21 01/06/19 21:00 Nasal Cannula 3.0 01/06/19 20:15 111 22 96 Nasal Cannula 2.0 28 01/06/19 20:05 21 01/06/19 20:05 110 24 82 Room Air 21 01/06/19 20:00 98.2 99 18 127/59 (81) 100 01/06/19 19:29 104 01/06/19 16:41 98.2 01/06/19 16:00 100.1 108 20 132/58 (82) 95 01/06/19 16:00 105 2/13/19 14:46 102 16 92 Room Air 21 01/06/19 14:36 99 16 92 Room Air 21 01/06/19 14:36 21 Intake and Output 01/06/19 01/07/19 19:00 07:00 Intake Total 600 ml 240 ml Output Total 600 ml 500 ml Balance 0 ml -260 ml Intake Oral 600 ml 240 ml Output Urine Total 600 ml 500 ml Laboratory Tests 01/07/19 06:35: White Blood Count 9.2, Red Blood Count 3.93L, Hemoglobin 9.9L, Hematocrit 32.4L , Mean Corpuscular Volume 82, Mean Corpuscular Hemoglobin 25.1L, Mean Corpuscular Hemoglobin Concent 30.5L, Red Cell Distribution Width 16.6H, Platelet Count 403, Mean Platelet Volume 6.0L, Neutrophils (%) (Auto) 67.1, Lymphocytes (%) (Auto) 14.1L, Monocytes (%) (Auto) 10.8H, Eosinophils (%) (Auto ) 6.6H, Basophils (%) (Auto) 1.5, Sodium Level 140, Potassium Level 3.5, Chloride Level 106, Carbon Dioxide Level 26, Anion Gap 8, Blood Urea Nitrogen 19H, Creatinine 1.3, Estimat Glomerular Filtration Rate > 60, Glucose Level 88, Calcium Level 7.8L Height (Feet): 6 Height (Inches): 1.00 Weight (Pounds): 125 General Appearance: no apparent distress, alert Neurologic: oriented x 3, responsive, depressed affect Rachael Buckley MD Jan 07, 2019 12:18
[2019-01-07] MEDS: Vancomycin 750 MG in NS 275 ML IVPB SCH (12:44)
--- NOTE | 2019-01-07 13:44 | NUR ---
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 98.9 HR 110 RR 16 B/P 125/68 RA 98% IS: CEFEPIME IV VANCO IV XOPENEX HHN TELE STATUS
--- NOTE | 2019-01-07 15:05 | Infectious Diseases Prog Note ---
Assessment/Plan Assessment/Plan 68 yo male with PMHx of COPD and CHF who presented to the ED on 12/21/18 with CP , SOB, N/V but no diarrhea. Sepsis- 2ry to PNA Leukocytosis, SP -01/05 CXR: Left basilar infiltrate, likely pneumonia. More questionable right infrahilar infiltrate. Probable left pleural effusion. Possible mild congestive changes 2/10 u/a neg -influenza sc neg Fever, improvig COPD Exacerbation -12/28 CXR: Slightly increasing interstitial markings bilaterally may be reflective developing mild interstitial edema or pneumonitis. Correlate clinically S/P Tx with Abx and Steroids Right ankle ulcers Do not appear to be infected. N/V - Resolved CHF HTN Hx of CAD - s/p CABG Plan - Empiric IV Vancomycin #5/ and Cefepime #3 (abx d #03/30) for PNA -f/u Bcx x2 -01/05 SP Ceftriaxone #3 - 12/25/18 S/P Zosyn #4 -f/u sp cx -Cdiff if diarrhea Thank you for this consult. We will continue to follow the patient during this hospitalization. Subjective Allergies: Coded Allergies: EGG (Verified Allergy, Unknown, 09/28/18) MEPERIDINE (Verified Allergy, Unknown, 09/28/18) MORPHINE (Verified Allergy, Unknown, 09/28/18) NITROGLYCERIN (Verified Allergy, Unknown, hives, 09/28/18) Subjective Afebrile in ~24hrs wbc normal now at RA feeling better Bcx NTD Objective Vital Signs Last 24 Hour Vital Signs Date Time Temp Pulse Resp B/P (MAP) Pulse Ox O2 Delivery O2 Flow Rate FiO2 01/07/19 13:00 Room Air 21 01/07/19 13:00 21 01/07/19 13:00 Room Air 01/07/19 12:00 108 01/07/19 12:00 97.0 121 16 122/60 (80) 94 01/07/19 10:25 Room Air 21 01/07/19 10:24 Room Air 21 01/07/19 09:06 107 125/61 01/07/19 09:00 Nasal Cannula 3.0 01/07/19 08:16 114 22 98 Room Air 21 01/07/19 08:06 21 01/07/19 08:06 81 24 96 Room Air 21 01/07/19 08:00 114 01/07/19 08:00 98.9 107 16 125/61 (82) 95 01/07/19 04:00 98.2 98 18 130/66 (87) 93 01/07/19 03:20 88 01/07/19 00:00 98.5 110 18 116/58 (77) 95 01/06/19 23:24 115 01/06/19 22:52 113 20 97 Nasal Cannula 2.0 28 01/06/19 22:41 119 18 80 Room Air 21 01/06/19 21:00 Nasal Cannula 3.0 01/06/19 20:15 111 22 96 Nasal Cannula 2.0 28 01/06/19 20:05 21 01/06/19 20:05 110 24 82 Room Air 21 01/06/19 20:00 98.2 99 18 127/59 (81) 100 01/06/19 19:29 104 01/06/19 16:41 98.2 01/06/19 16:00 100.1 108 20 132/58 (82) 95 01/06/19 16:00 105 Height (Feet): 6 Height (Inches): 1.00 Weight (Pounds): 125 Objective Gen: NAD, well appearing, alert HEENT: NCAT, MMM, EOMI, PERRL, No Oral lesion, no scleral icterus NECK: full range of motion, supple, no meningismus, No LAD, No JVD LUNGS: CTAB, No W/C, No Accessory muscle use CARDS: RRR, S1, S2, No M/R/G, ABD: Soft, NT, ND, No R/G, + BS, No HSM, No Masses : Deferred Ext: right ankle with two shallow ulcers, No surrounding erythema no purulence , Pulses 2+ B/L (DP, Rad): NEURO: A/O x 4, Strength and Sensation Grossly intact PSYCH: Mood/affect normal SKIN: Warm/dry, No rashes Microbiology Date/Time Source Procedure Growth Status 01/05/19 18:46 Nasopharynx Influenza Types A,B Antigen (JEROME) - Final Complete Laboratory Tests Test 01/07/19 06:35 White Blood Count 9.2 K/UL (4.8-10.8) Red Blood Count 3.93 M/UL (4.70-6.10) L Hemoglobin 9.9 G/DL (14.2-18.0) L Hematocrit 32.4 % (42.0-52.0) L Mean Corpuscular Volume 82 FL (80-99) Mean Corpuscular Hemoglobin 25.1 PG (27.0-31.0) L Mean Corpuscular Hemoglobin Concent 30.5 G/DL (32.0-36.0) L Red Cell Distribution Width 16.6 % (11.6-14.8) H Platelet Count 403 K/UL (150-450) Mean Platelet Volume 6.0 FL (6.5-10.1) L Neutrophils (%) (Auto) 67.1 % (45.0-75.0) Lymphocytes (%) (Auto) 14.1 % (20.0-45.0) L Monocytes (%) (Auto) 10.8 % (1.0-10.0) H Eosinophils (%) (Auto) 6.6 % (0.0-3.0) H Basophils (%) (Auto) 1.5 % (0.0-2.0) Sodium Level 140 MMOL/L (136-145) Potassium Level 3.5 MMOL/L (3.5-5.1) Chloride Level 106 MMOL/L (98-107) Carbon Dioxide Level 26 MMOL/L (21-32) Anion Gap 8 mmol/L (5-15) Blood Urea Nitrogen 19 mg/dL (7-18) H Creatinine 1.3 MG/DL (0.55-1.30) Estimat Glomerular Filtration Rate > 60 mL/min (>60) Glucose Level 88 MG/DL (74-106) Calcium Level 7.8 MG/DL (8.5-10.1) L Current Medications Medications (Trade) Dose Ordered Sig/Aminata Route PRN Reason Start Time Stop Time Status Last Admin Dose Admin Acetaminophen (Tylenol) 650 mg Q6H PRN ORAL Mild Pain/Temp > 100.5 01/03/19 16:00 01/30/19 15:59 01/05/19 15:08 Acetylcysteine (Mucomyst) 100 mg TIDRT HHN 01/03/19 19:00 01/26/19 12:59 01/07/19 08:02 Amlodipine Besylate (Norvasc) 10 mg DAILY ORAL 01/04/19 09:00 01/21/19 08:59 01/07/19 09:06 Budesonide (Pulmicort) 0.25 mg Q12HRT HHN 01/03/19 22:00 02/02/19 21:59 01/06/19 22:41 Cefepime HCl 1 gm/ Dextrose 55 ml @ 110 mls/hr Q24H IVPB 01/05/19 17:00 01/12/19 16:59 01/06/19 16:30 Clopidogrel Bisulfate (Plavix) 75 mg DAILY ORAL 01/04/19 09:00 01/21/19 08:59 01/07/19 09:06 Dextrose (Dextrose 50%) 25 ml Q30M PRN IV Hypoglycemia 01/03/19 15:30 01/21/19 07:29 Dextrose (Dextrose 50%) 50 ml Q30M PRN IV Hypoglycemia 01/03/19 15:30 01/21/19 07:29 Heparin Sodium (Porcine) (Heparin 5000 units/ml) 5,000 units EVERY 12 HOURS SUBQ 01/03/19 21:00 01/21/19 08:59 01/07/19 09:07 Hydromorphone HCl (Dilaudid) 3 mg Q3H PRN IVP Severe Pain (Pain Scale 7-10) 01/03/19 15:30 01/07/19 15:29 01/07/19 12:47 Levalbuterol HCl (Xopenex) 1.25 mg Q4H PRN HHN Shortness of Breath 01/03/19 15:30 01/08/19 15:29 01/07/19 08:05 Levetiracetam (Keppra) 250 mg Q12HR ORAL 01/03/19 21:00 01/30/19 08:59 01/07/19 09:05 Mirtazapine (Remeron) 30 mg BEDTIME ORAL 01/03/19 21:00 01/23/19 20:59 01/06/19 21:48 Ondansetron HCl (Zofran) 4 mg Q6H PRN IVP Nausea & Vomiting 01/03/19 15:30 01/21/19 15:29 Vancomycin HCl (Vanco rx to dose) 1 ea DAILY PRN MISC Per rx protocol 01/03/19 15:30 02/02/19 15:29 Vancomycin HCl 750 mg/Sodium Chloride 275 ml @ 183.333 mls/hr Q24H IVPB 01/04/19 12:00 01/09/19 11:59 01/07/19 12:44 Jessica Parry M.D. Jan 07, 2019 15:05
[2019-01-07 16:00] VITALS: BP 123/60
--- NOTE | 2019-01-07 16:11 | NUR ---
NURSE NOTES: Dr. Magana made aware Dilaudid 3mg Q3h prn has been timed out. Per Dr. Izzy browne to renew order. Order noted, entered, carried out.
[2019-01-07] MEDS: Cefepime HCl 1 GM in D5W 55 ML IVPB SCH (16:17)
--- NOTE | 2019-01-07 19:10 | NUR ---
NURSE NOTES: Received report from Eugenio Moore RN. Pt is resting in the bed w/o distress in RA, 3L NC is ready to use PRN. Safety measures are applied w/ bed alarm on, bed in lowest position w/ side rails up x2 padded, and breaks are engaged. Suction is ready at the bedside. Call light and side table are w/in reach. SR in the monitor. Will follow plans of care.
--- NOTE | 2019-01-07 19:22 | NUR ---
HAND-OFF: Report given to CHRISTOPHER Gonzalez.
[2019-01-07 20:00] VITALS: BP 137/63
--- NOTE | 2019-01-08 03:13 | NUR ---
NURSE NOTES: Pt is sleeping after pain med w/o distress in RA. Pt refused to have VS check at midnight d/t sleeping. Will continue to monitor.
[2019-01-08 04:00] VITALS: BP 112/62
--- NOTE | 2019-01-08 07:15 | NUR ---
HAND-OFF: Report given to Elfego RN. Stable condition.
[2019-01-08 07:37] LABS: ANION GAP 11 mmol/L (5-15); BLOOD UREA NITROGEN 16 mg/dL (7-18); CALCIUM 8.4 MG/DL (8.5-10.1); CARBON DIOXIDE 23 MMOL/L (21-32); CHLORIDE 106 MMOL/L (98-107); CREATININE 1.2 MG/DL (0.55-1.30); POTASSIUM 3.8 MMOL/L (3.5-5.1); SODIUM 140 MMOL/L (136-145)
--- NOTE | 2019-01-08 07:38 | NUR ---
NURSE NOTES: Patient in supine position, sleeping, oxygen at 2 liters nasal cannula, respirations at 16 breaths per minute, bed in lowest position, call light within reach, in no apparent distress.
[2019-01-08] MEDS: Levalbuterol Inh UD 1.25mg/0.5ml HHN PRN ×2 (07:55→20:47)
[2019-01-08 08:00] VITALS: BP 115/61
[2019-01-08 08:12] LABS: BASOPHILS % (AUTO) 1.4 % (0.0-2.0); EOSINOPHILS % (AUTO) 6.8 % (0.0-3.0); HEMATOCRIT 32.9 % (42.0-52.0); MEAN CORPUSCULAR VOLUME 82 FL (80-99); MONOCYTES % (AUTO) 13.2 % (1.0-10.0); NEUTROPHILS % (AUTO) 59.7 % (45.0-75.0); PLATELET COUNT 411 K/UL (150-450); RED BLOOD COUNT 4.01 M/UL (4.70-6.10); RED CELL DISTRIBUTION WIDTH 16.5 % (11.6-14.8); WHITE BLOOD COUNT 9.7 K/UL (4.8-10.8)
[2019-01-08] MEDS: Heparin 5000 units/ml inj SUBQ SCH ×2 (09:00→21:00)
[2019-01-08] MEDS: Budesonide HHN 0.25mg/2ml ud HHN SCH ×2 (10:47→22:45)
[2019-01-08] MEDS: Vancomycin 750 MG in NS 275 ML IVPB SCH (11:13)
[2019-01-08 12:00] VITALS: BP 129/61
--- NOTE | 2019-01-08 12:05 | General Progress Note ---
Assessment/Plan Problem List: (1) Chest pain ICD Codes: R07.9 - Chest pain, unspecified SNOMED: 82347937 Qualifiers: Qualified Codes: R07.9 - Chest pain, unspecified (2) Emphysema lung ICD Codes: J43.9 - Emphysema, unspecified SNOMED: 34663480 (3) ACS (acute coronary syndrome) ICD Codes: I24.9 - Acute coronary syndrome SNOMED: 367249984 (4) CAD (coronary artery disease) ICD Codes: I25.10 - Atherosclerosis of coronary artery SNOMED: 190644242 (5) Peripheral vascular disease ICD Codes: I73.9 - Peripheral vascular disease, unspecified SNOMED: 909691480 (6) HTN (hypertension) ICD Codes: I10 - Hypertension SNOMED: 75779936 Status: stable Assessment/Plan covering for dr van van no fever no sob no cp chf exac reviewed chart and labs copd exac cad Subjective ROS Limited/Unobtainable: Yes Allergies: Coded Allergies: EGG (Verified Allergy, Unknown, 09/28/18) MEPERIDINE (Verified Allergy, Unknown, 09/28/18) MORPHINE (Verified Allergy, Unknown, 09/28/18) NITROGLYCERIN (Verified Allergy, Unknown, hives, 09/28/18) Objective Last 24 Hour Vital Signs Date Time Temp Pulse Resp B/P (MAP) Pulse Ox O2 Delivery O2 Flow Rate FiO2 01/08/19 10:48 103 20 95 Room Air 21 01/08/19 10:47 101 18 93 Room Air 21 01/08/19 09:51 98.2 01/08/19 09:22 67 115/61 01/08/19 09:00 Room Air 01/08/19 08:02 67 20 97 Nasal Cannula 2.0 28 01/08/19 08:01 21 01/08/19 08:00 109 01/08/19 08:00 98.2 100 19 115/61 (79) 96 01/08/19 07:58 63 20 95 Nasal Cannula 2.0 28 01/08/19 04:00 99.9 107 18 112/62 (79) 93 01/08/19 03:36 92 01/07/19 23:45 109 01/07/19 21:51 109 20 96 Room Air 21 01/07/19 21:41 107 18 93 Room Air 21 01/07/19 21:00 Room Air 01/07/19 20:32 110 20 97 Room Air 21 01/07/19 20:22 21 01/07/19 20:22 107 20 94 Room Air 21 01/07/19 20:00 99.0 106 18 137/63 (87) 93 01/07/19 19:01 102 01/07/19 16:00 99 01/07/19 16:00 97.1 103 16 123/60 (81) 94 01/07/19 13:00 Room Air 21 01/07/19 13:00 21 01/07/19 13:00 Room Air Intake and Output 01/07/19 01/08/19 19:00 07:00 Intake Total 360 ml 750 ml Output Total 300 ml 1150 ml Balance 60 ml -400 ml Intake Oral 360 ml 750 ml Output Urine Total 300 ml 1150 ml # Voids 2 3 Laboratory Tests 01/08/19 06:17: White Blood Count 9.7, Red Blood Count 4.01L, Hemoglobin 10.0L, Hematocrit 32.9L , Mean Corpuscular Volume 82, Mean Corpuscular Hemoglobin 25.0L, Mean Corpuscular Hemoglobin Concent 30.5L, Red Cell Distribution Width 16.5H, Platelet Count 411, Mean Platelet Volume 6.1L, Neutrophils (%) (Auto) 59.7, Lymphocytes (%) (Auto) 19.0L, Monocytes (%) (Auto) 13.2H, Eosinophils (%) (Auto ) 6.8H, Basophils (%) (Auto) 1.4, Sodium Level 140, Potassium Level 3.8, Chloride Level 106, Carbon Dioxide Level 23, Anion Gap 11, Blood Urea Nitrogen 16, Creatinine 1.2, Estimat Glomerular Filtration Rate > 60, Glucose Level 87, Calcium Level 8.4L 01/08/19 10:55: Vancomycin Level Trough 11.2 Height (Feet): 6 Height (Inches): 1.00 Weight (Pounds): 125 Cardiovascular: normal rate Respiratory/Chest: lungs clear Abdomen: soft Brittny Dalton MD Jan 08, 2019 12:05
--- NOTE | 2019-01-08 12:10 | Pulmonology Progress Note ---
Assessment/Plan Problems: (1) Nosocomial pneumonia (2) COPD exacerbation (3) Acute bronchitis (4) Hypothyroidism (5) CAD (coronary artery disease) (6) Severe protein-calorie malnutrition (7) Chronic ulcer of right leg Assessment/Plan feeling better , but lower than yesterday cxr showing RLL infiltrate no new complains renal f/u respiratory treatment wound care Subjective ROS Limited/Unobtainable: No Constitutional: Reports: no symptoms HEENT: Repors: no symptoms Respiratory: Reports: no symptoms Allergies: Coded Allergies: EGG (Verified Allergy, Unknown, 09/28/18) MEPERIDINE (Verified Allergy, Unknown, 09/28/18) MORPHINE (Verified Allergy, Unknown, 09/28/18) NITROGLYCERIN (Verified Allergy, Unknown, hives, 09/28/18) Objective Last 24 Hour Vital Signs Date Time Temp Pulse Resp B/P (MAP) Pulse Ox O2 Delivery O2 Flow Rate FiO2 01/08/19 10:48 103 20 95 Room Air 21 01/08/19 10:47 101 18 93 Room Air 21 01/08/19 09:51 98.2 01/08/19 09:22 67 115/61 01/08/19 09:00 Room Air 01/08/19 08:02 67 20 97 Nasal Cannula 2.0 28 01/08/19 08:01 21 01/08/19 08:00 109 01/08/19 08:00 98.2 100 19 115/61 (79) 96 01/08/19 07:58 63 20 95 Nasal Cannula 2.0 28 01/08/19 04:00 99.9 107 18 112/62 (79) 93 01/08/19 03:36 92 01/07/19 23:45 109 01/07/19 21:51 109 20 96 Room Air 21 01/07/19 21:41 107 18 93 Room Air 21 01/07/19 21:00 Room Air 01/07/19 20:32 110 20 97 Room Air 21 01/07/19 20:22 21 01/07/19 20:22 107 20 94 Room Air 21 01/07/19 20:00 99.0 106 18 137/63 (87) 93 01/07/19 19:01 102 01/07/19 16:00 99 01/07/19 16:00 97.1 103 16 123/60 (81) 94 01/07/19 13:00 Room Air 21 01/07/19 13:00 21 01/07/19 13:00 Room Air Intake and Output 01/07/19 01/08/19 18:59 06:59 Intake Total 360 ml 750 ml Output Total 300 ml 1150 ml Balance 60 ml -400 ml Intake Oral 360 ml 750 ml Output Urine Total 300 ml 1150 ml # Voids 2 3 Objective General Appearance: cachectic HEENT: normocephalic Respiratory/Chest: chest wall non-tender, lungs clear, decrease breath sounds Cardiovascular: normal peripheral pulses, normal rate Abdomen: normal bowel sounds, soft, non tender Extremities: no cyanosis Skin: no rash Microbiology Date/Time Source Procedure Growth Status 01/05/19 18:46 Nasopharynx Influenza Types A,B Antigen (JEROME) - Final Complete Laboratory Tests 01/08/19 06:17: White Blood Count 9.7, Red Blood Count 4.01L, Hemoglobin 10.0L, Hematocrit 32.9L , Mean Corpuscular Volume 82, Mean Corpuscular Hemoglobin 25.0L, Mean Corpuscular Hemoglobin Concent 30.5L, Red Cell Distribution Width 16.5H, Platelet Count 411, Mean Platelet Volume 6.1L, Neutrophils (%) (Auto) 59.7, Lymphocytes (%) (Auto) 19.0L, Monocytes (%) (Auto) 13.2H, Eosinophils (%) (Auto ) 6.8H, Basophils (%) (Auto) 1.4, Sodium Level 140, Potassium Level 3.8, Chloride Level 106, Carbon Dioxide Level 23, Anion Gap 11, Blood Urea Nitrogen 16, Creatinine 1.2, Estimat Glomerular Filtration Rate > 60, Glucose Level 87, Calcium Level 8.4L 01/08/19 10:55: Vancomycin Level Trough 11.2 Current Medications Medications (Trade) Dose Ordered Sig/Aminata Route PRN Reason Start Time Stop Time Status Last Admin Dose Admin Acetaminophen (Tylenol) 650 mg Q6H PRN ORAL Mild Pain/Temp > 100.5 01/03/19 16:00 01/30/19 15:59 01/05/19 15:08 Acetylcysteine (Mucomyst) 100 mg TIDRT HHN 01/03/19 19:00 01/26/19 12:59 01/08/19 07:55 Amlodipine Besylate (Norvasc) 10 mg DAILY ORAL 01/04/19 09:00 01/21/19 08:59 01/08/19 09:22 Budesonide (Pulmicort) 0.25 mg Q12HRT HHN 01/03/19 22:00 02/02/19 21:59 01/08/19 10:47 Cefepime HCl 1 gm/ Dextrose 55 ml @ 110 mls/hr Q24H IVPB 01/05/19 17:00 01/12/19 16:59 01/07/19 16:17 Clopidogrel Bisulfate (Plavix) 75 mg DAILY ORAL 01/04/19 09:00 01/21/19 08:59 01/08/19 09:21 Dextrose (Dextrose 50%) 25 ml Q30M PRN IV Hypoglycemia 01/03/19 15:30 01/21/19 07:29 Dextrose (Dextrose 50%) 50 ml Q30M PRN IV Hypoglycemia 01/03/19 15:30 01/21/19 07:29 Heparin Sodium (Porcine) (Heparin 5000 units/ml) 5,000 units EVERY 12 HOURS SUBQ 01/03/19 21:00 01/21/19 08:59 01/07/19 21:09 Hydromorphone HCl (Dilaudid) 3 mg Q3H PRN IVP Severe Pain (Pain Scale 7-10) 01/07/19 16:15 01/14/19 16:14 01/08/19 09:21 Levalbuterol HCl (Xopenex) 1.25 mg Q4H PRN HHN Shortness of Breath 01/03/19 15:30 01/08/19 15:29 01/08/19 07:55 Levetiracetam (Keppra) 250 mg Q12HR ORAL 01/03/19 21:00 01/30/19 08:59 01/08/19 09:22 Mirtazapine (Remeron) 30 mg BEDTIME ORAL 01/03/19 21:00 01/23/19 20:59 01/07/19 21:08 Ondansetron HCl (Zofran) 4 mg Q6H PRN IVP Nausea & Vomiting 01/03/19 15:30 01/21/19 15:29 Vancomycin HCl (Vanco rx to dose) 1 ea DAILY PRN MISC Per rx protocol 01/03/19 15:30 02/02/19 15:29 Vancomycin HCl 750 mg/Sodium Chloride 275 ml @ 183.333 mls/hr Q24H IVPB 01/04/19 12:00 01/09/19 11:59 01/08/19 11:13 Jessie Magana MD Jan 08, 2019 12:10
--- NOTE | 2019-01-08 13:07 | Nephrology Progress Note ---
Assessment/Plan Assessment 1. Acute renal failure improving 2. Chronic kidney disease. 3. Hyperkalemia stable 4. COPD exacerbation. 5. Chest pain. 6. Cardiovascular disease. Plan plan monitoring renal function avoid NSAID replace electrolyte as need it Subjective Subjective alert and awake c/o cough and mild sob Objective Objective Last 24 Hour Vital Signs Date Time Temp Pulse Resp B/P (MAP) Pulse Ox O2 Delivery O2 Flow Rate FiO2 01/08/19 12:51 98.2 01/08/19 12:00 99 01/08/19 10:48 103 20 95 Room Air 21 01/08/19 10:47 101 18 93 Room Air 21 01/08/19 09:22 67 115/61 01/08/19 09:00 Room Air 01/08/19 08:02 67 20 97 Nasal Cannula 2.0 28 01/08/19 08:01 21 01/08/19 08:00 109 01/08/19 08:00 98.2 100 19 115/61 (79) 96 01/08/19 07:58 63 20 95 Nasal Cannula 2.0 28 01/08/19 04:00 99.9 107 18 112/62 (79) 93 01/08/19 03:36 92 01/07/19 23:45 109 01/07/19 21:51 109 20 96 Room Air 21 01/07/19 21:41 107 18 93 Room Air 21 01/07/19 21:00 Room Air 01/07/19 20:32 110 20 97 Room Air 21 01/07/19 20:22 21 01/07/19 20:22 107 20 94 Room Air 21 01/07/19 20:00 99.0 106 18 137/63 (87) 93 01/07/19 19:01 102 01/07/19 16:00 99 01/07/19 16:00 97.1 103 16 123/60 (81) 94 Intake and Output 01/07/19 01/08/19 18:59 06:59 Intake Total 360 ml 750 ml Output Total 300 ml 1150 ml Balance 60 ml -400 ml Intake Oral 360 ml 750 ml Output Urine Total 300 ml 1150 ml # Voids 2 3 Laboratory Tests 01/08/19 06:17: White Blood Count 9.7, Red Blood Count 4.01L, Hemoglobin 10.0L, Hematocrit 32.9L , Mean Corpuscular Volume 82, Mean Corpuscular Hemoglobin 25.0L, Mean Corpuscular Hemoglobin Concent 30.5L, Red Cell Distribution Width 16.5H, Platelet Count 411, Mean Platelet Volume 6.1L, Neutrophils (%) (Auto) 59.7, Lymphocytes (%) (Auto) 19.0L, Monocytes (%) (Auto) 13.2H, Eosinophils (%) (Auto ) 6.8H, Basophils (%) (Auto) 1.4, Sodium Level 140, Potassium Level 3.8, Chloride Level 106, Carbon Dioxide Level 23, Anion Gap 11, Blood Urea Nitrogen 16, Creatinine 1.2, Estimat Glomerular Filtration Rate > 60, Glucose Level 87, Calcium Level 8.4L 01/08/19 10:55: Vancomycin Level Trough 11.2 Height (Feet): 6 Height (Inches): 1.00 Weight (Pounds): 125 Objective HEAD AND NECK: No JVP. No LAD. Bitemporal wasting. Extraocular movement intact. Pupils are reactive to light and accommodation. LUNGS: Bilateral wheezing. CARDIAC: Regular rate and rhythm. S1, S2. No murmur. No rub. ABDOMEN: Soft, nontender, and nondistended. EXTREMITIES: Right heel ulceration, which is on dressing. No edema. No clubbing. Enriqueta Briones MD Jan 08, 2019 13:07
--- NOTE | 2019-01-08 14:19 | NUR ---
PT notes: attempted to see patient but patient adamantly declined treatment stating that he just want pain medication; when asked about his pain level, patient becomes agitated and ask this therapist to come back tomorrow; he said he might participate tomorrow. will follow up next treatment schedule.
[2019-01-08] MEDS ORDERED: NS 275ml ONE (15:15)
[2019-01-08] MEDS ORDERED: Tubing IV Secondary IV ONE (15:15)
--- NOTE | 2019-01-08 15:16 | Cardiology Report ---
APPROVED REPORT EKG Measurement Heart [id number] Suspect arm lead reversal, interpretation assumes no reversal Sinus tachycardia Right atrial enlargement Rightward axis Pulmonary disease pattern Abnormal ECG
--- NOTE | 2019-01-08 15:34 | Infectious Diseases Prog Note ---
Assessment/Plan Assessment/Plan 68 yo male with PMHx of COPD and CHF who presented to the ED on 12/21/18 with CP , SOB, N/V but no diarrhea. Sepsis- 2ry to PNA Leukocytosis, SP -2 CXR: Left basilar infiltrate, likely pneumonia. More questionable right infrahilar infiltrate. Probable left pleural effusion. Possible mild congestive changes 2/10 u/a neg -influenza sc neg Fever, improvig COPD Exacerbation -2/ CXR: Slightly increasing interstitial markings bilaterally may be reflective developing mild interstitial edema or pneumonitis. Correlate clinically S/P Tx with Abx and Steroids Right ankle ulcers Do not appear to be infected. N/V - Resolved CHF HTN Hx of CAD - s/p CABG Plan - Empiric IV Vancomycin #6/7 and Cefepime #4 (abx d #6/) for PNA -f/u Bcx x2 -01/05 SP Ceftriaxone #3 - 12/25/18 S/P Zosyn #4 -f/u sp cx -Cdiff if diarrhea Thank you for this consult. We will continue to follow the patient during this hospitalization. Subjective Allergies: Coded Allergies: EGG (Verified Allergy, Unknown, 09/28/18) MEPERIDINE (Verified Allergy, Unknown, 09/28/18) MORPHINE (Verified Allergy, Unknown, 09/28/18) NITROGLYCERIN (Verified Allergy, Unknown, hives, 09/28/18) Subjective Afebrile in ~48hrs no leukocytosis at RA feeling better Bcx NTD Objective Vital Signs Last 24 Hour Vital Signs Date Time Temp Pulse Resp B/P (MAP) Pulse Ox O2 Delivery O2 Flow Rate FiO2 01/08/19 14:03 Room Air 01/08/19 14:02 Room Air 01/08/19 12:51 98.2 01/08/19 12:00 98.1 102 16 129/61 (83) 97 01/08/19 12:00 99 01/08/19 10:48 103 20 95 Room Air 21 01/08/19 10:47 101 18 93 Room Air 21 01/08/19 09:22 67 115/61 01/08/19 09:00 Room Air 01/08/19 08:02 67 20 97 Nasal Cannula 2.0 28 01/08/19 08:01 21 01/08/19 08:00 109 01/08/19 08:00 98.2 100 19 115/61 (79) 96 01/08/19 07:58 63 20 95 Nasal Cannula 2.0 28 01/08/19 04:00 99.9 107 18 112/62 (79) 93 01/08/19 03:36 92 01/07/19 23:45 109 01/07/19 21:51 109 20 96 Room Air 21 01/07/19 21:41 107 18 93 Room Air 21 01/07/19 21:00 Room Air 01/07/19 20:32 110 20 97 Room Air 21 01/07/19 20:22 21 01/07/19 20:22 107 20 94 Room Air 21 01/07/19 20:00 99.0 106 18 137/63 (87) 93 01/07/19 19:01 102 01/07/19 16:00 99 01/07/19 16:00 97.1 103 16 123/60 (81) 94 Height (Feet): 6 Height (Inches): 1.00 Weight (Pounds): 125 Objective Gen: NAD, well appearing, alert HEENT: NCAT, MMM, EOMI, PERRL, No Oral lesion, no scleral icterus NECK: full range of motion, supple, no meningismus, No LAD, No JVD LUNGS: CTAB, No W/C, No Accessory muscle use CARDS: RRR, S1, S2, No M/R/G, ABD: Soft, NT, ND, No R/G, + BS, No HSM, No Masses : Deferred Ext: right ankle with two shallow ulcers, No surrounding erythema no purulence , Pulses 2+ B/L (DP, Rad): NEURO: A/O x 4, Strength and Sensation Grossly intact PSYCH: Mood/affect normal SKIN: Warm/dry, No rashes Microbiology Date/Time Source Procedure Growth Status 01/05/19 18:46 Nasopharynx Influenza Types A,B Antigen (JEROME) - Final Complete Laboratory Tests Test 01/08/19 06:17 01/08/19 10:55 White Blood Count 9.7 K/UL (4.8-10.8) Red Blood Count 4.01 M/UL (4.70-6.10) L Hemoglobin 10.0 G/DL (14.2-18.0) L Hematocrit 32.9 % (42.0-52.0) L Mean Corpuscular Volume 82 FL (80-99) Mean Corpuscular Hemoglobin 25.0 PG (27.0-31.0) L Mean Corpuscular Hemoglobin Concent 30.5 G/DL (32.0-36.0) L Red Cell Distribution Width 16.5 % (11.6-14.8) H Platelet Count 411 K/UL (150-450) Mean Platelet Volume 6.1 FL (6.5-10.1) L Neutrophils (%) (Auto) 59.7 % (45.0-75.0) Lymphocytes (%) (Auto) 19.0 % (20.0-45.0) L Monocytes (%) (Auto) 13.2 % (1.0-10.0) H Eosinophils (%) (Auto) 6.8 % (0.0-3.0) H Basophils (%) (Auto) 1.4 % (0.0-2.0) Sodium Level 140 MMOL/L (136-145) Potassium Level 3.8 MMOL/L (3.5-5.1) Chloride Level 106 MMOL/L (98-107) Carbon Dioxide Level 23 MMOL/L (21-32) Anion Gap 11 mmol/L (5-15) Blood Urea Nitrogen 16 mg/dL (7-18) Creatinine 1.2 MG/DL (0.55-1.30) Estimat Glomerular Filtration Rate > 60 mL/min (>60) Glucose Level 87 MG/DL (74-106) Calcium Level 8.4 MG/DL (8.5-10.1) L Vancomycin Level Trough 11.2 ug/mL (5.0-12.0) Current Medications Medications (Trade) Dose Ordered Sig/Aminata Route PRN Reason Start Time Stop Time Status Last Admin Dose Admin Acetaminophen (Tylenol) 650 mg Q6H PRN ORAL Mild Pain/Temp > 100.5 01/03/19 16:00 01/30/19 15:59 01/05/19 15:08 Acetylcysteine (Mucomyst) 100 mg TIDRT HHN 01/03/19 19:00 01/26/19 12:59 01/08/19 07:55 Amlodipine Besylate (Norvasc) 10 mg DAILY ORAL 01/04/19 09:00 01/21/19 08:59 01/08/19 09:22 Budesonide (Pulmicort) 0.25 mg Q12HRT HHN 01/03/19 22:00 02/02/19 21:59 01/08/19 10:47 Cefepime HCl 1 gm/ Dextrose 55 ml @ 110 mls/hr Q24H IVPB 01/05/19 17:00 01/12/19 16:59 01/07/19 16:17 Clopidogrel Bisulfate (Plavix) 75 mg DAILY ORAL 01/04/19 09:00 01/21/19 08:59 01/08/19 09:21 Dextrose (Dextrose 50%) 25 ml Q30M PRN IV Hypoglycemia 01/03/19 15:30 01/21/19 07:29 Dextrose (Dextrose 50%) 50 ml Q30M PRN IV Hypoglycemia 01/03/19 15:30 01/21/19 07:29 Heparin Sodium (Porcine) (Heparin 5000 units/ml) 5,000 units EVERY 12 HOURS SUBQ 01/03/19 21:00 01/21/19 08:59 01/07/19 21:09 Hydromorphone HCl (Dilaudid) 3 mg Q3H PRN IVP Severe Pain (Pain Scale 7-10) 01/07/19 16:15 01/14/19 16:14 01/08/19 15:22 Levetiracetam (Keppra) 250 mg Q12HR ORAL 01/03/19 21:00 01/30/19 08:59 01/08/19 09:22 Mirtazapine (Remeron) 30 mg BEDTIME ORAL 01/03/19 21:00 01/23/19 20:59 01/07/19 21:08 Ondansetron HCl (Zofran) 4 mg Q6H PRN IVP Nausea & Vomiting 01/03/19 15:30 01/21/19 15:29 Vancomycin HCl (Vanco rx to dose) 1 ea DAILY PRN MISC Per rx protocol 01/03/19 15:30 02/02/19 15:29 Vancomycin HCl 1 gm/Dextrose 275 ml @ 183.708 mls/hr Q24H IVPB 01/09/19 12:00 01/14/19 11:59 Jessica Parry M.D. Jan 08, 2019 15:34
[2019-01-08 16:00] VITALS: BP 122/62
[2019-01-08] MEDS: Cefepime HCl 1 GM in D5W 55 ML IVPB SCH (16:58)
--- NOTE | 2019-01-08 19:45 | NUR ---
NURSE NOTES: Received pt. and report from CHRISTOPHER Moulton. Observed pt. resting in bed and watching TV. operating room tech is in placed, IV site intact, asymptomatic, and patent. Call light within reach, bed is in the lowest position and locked. No acute distress noted at this time. Will continue plan of care. Addendum: 01/08/19 at 2330 by Asmita Kellogg Mai, RN Received pt. and report from CHRISTOPHER Menezes.
[2019-01-08 20:00] VITALS: BP 117/53
--- NOTE | 2019-01-08 20:18 | NUR ---
HAND-OFF: Report given to Dulce Maria Falcon RN. Patient sitting in semi-[place]'s position, awake and alert, watching televion, urinal at bedside, bed in lowest position, call light within reach, oxygen via nasal cannula at 3 liters, in no apparent distress, pain treated with Dilaudid.
--- NOTE | 2019-01-08 20:32 | General Progress Note ---
Assessment/Plan Problem List: (1) MDD (major depressive disorder), recurrent episode ICD Codes: F33.9 - Major depressive disorder, recurrent, unspecified SNOMED: 800932510 Status: stable, progressing Assessment/Plan remeron 30mg po qhs provided ro/st Subjective 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: Reports: anxiety, depressed, emotional problems Allergies: Coded Allergies: EGG (Verified Allergy, Unknown, 09/28/18) MEPERIDINE (Verified Allergy, Unknown, 09/28/18) MORPHINE (Verified Allergy, Unknown, 09/28/18) NITROGLYCERIN (Verified Allergy, Unknown, hives, 09/28/18) Subjective the pt is the same Objective Last 24 Hour Vital Signs Date Time Temp Pulse Resp B/P (MAP) Pulse Ox O2 Delivery O2 Flow Rate FiO2 01/08/19 19:20 100.0 01/08/19 16:00 100.0 112 16 122/62 (82) 94 01/08/19 16:00 103 01/08/19 14:03 Room Air 01/08/19 14:02 Room Air 01/08/19 12:00 98.1 102 16 129/61 (83) 97 01/08/19 12:00 99 01/08/19 10:48 103 20 95 Room Air 21 01/08/19 10:47 101 18 93 Room Air 21 01/08/19 09:22 67 115/61 01/08/19 09:00 Room Air 01/08/19 08:02 67 20 97 Nasal Cannula 2.0 28 01/08/19 08:01 21 01/08/19 08:00 109 01/08/19 08:00 98.2 100 19 115/61 (79) 96 01/08/19 07:58 63 20 95 Nasal Cannula 2.0 28 01/08/19 04:00 99.9 107 18 112/62 (79) 93 01/08/19 03:36 92 01/07/19 23:45 109 01/07/19 21:51 109 20 96 Room Air 21 01/07/19 21:41 107 18 93 Room Air 21 01/07/19 21:00 Room Air 01/07/19 20:32 110 20 97 Room Air 21 Intake and Output 01/07/19 01/08/19 19:00 07:00 Intake Total 360 ml 750 ml Output Total 300 ml 1150 ml Balance 60 ml -400 ml Intake Oral 360 ml 750 ml Output Urine Total 300 ml 1150 ml # Voids 2 3 Laboratory Tests 01/08/19 06:17: White Blood Count 9.7, Red Blood Count 4.01L, Hemoglobin 10.0L, Hematocrit 32.9L , Mean Corpuscular Volume 82, Mean Corpuscular Hemoglobin 25.0L, Mean Corpuscular Hemoglobin Concent 30.5L, Red Cell Distribution Width 16.5H, Platelet Count 411, Mean Platelet Volume 6.1L, Neutrophils (%) (Auto) 59.7, Lymphocytes (%) (Auto) 19.0L, Monocytes (%) (Auto) 13.2H, Eosinophils (%) (Auto ) 6.8H, Basophils (%) (Auto) 1.4, Sodium Level 140, Potassium Level 3.8, Chloride Level 106, Carbon Dioxide Level 23, Anion Gap 11, Blood Urea Nitrogen 16, Creatinine 1.2, Estimat Glomerular Filtration Rate > 60, Glucose Level 87, Calcium Level 8.4L 01/08/19 10:55: Vancomycin Level Trough 11.2 Height (Feet): 6 Height (Inches): 1.00 Weight (Pounds): 125 General Appearance: no apparent distress, alert Neurologic: oriented x 3, responsive, depressed affect Rachael Buckley MD Jan 08, 2019 20:32
[2019-01-09] VITALS: BP 109/61
[2019-01-09 04:00] VITALS: BP 116/57
[2019-01-09] MEDS: Levalbuterol Inh UD 1.25mg/0.5ml HHN PRN ×3 (07:21→20:04)
--- NOTE | 2019-01-09 07:26 | NUR ---
NURSE NOTES: Patient in semi-[place]'s position, awake and alert, bed in lowest position, call light within reach, no SOB, no c/o pain, in no apparent distress, oxygen 3 liters nasal cannula, bedside commode at bedside, urinal at bedside, IV 22 gauge in right forearm, patent, saline locked.
--- NOTE | 2019-01-09 07:35 | NUR ---
HAND-OFF: Report given to CHRISTOPHER Menezes.
--- NOTE | 2019-01-09 07:35 | Infectious Diseases Prog Note ---
Assessment/Plan Assessment/Plan 68 yo male with PMHx of COPD and CHF who presented to the ED on 12/21/18 with CP , SOB, N/V but no diarrhea. Sepsis- 2ry to PNA Leukocytosis, SP -2 CXR: Left basilar infiltrate, likely pneumonia. More questionable right infrahilar infiltrate. Probable left pleural effusion. Possible mild congestive changes 2/10 u/a neg -influenza sc neg Fever, improvig COPD Exacerbation -12/28 CXR: Slightly increasing interstitial markings bilaterally may be reflective developing mild interstitial edema or pneumonitis. Correlate clinically S/P Tx with Abx and Steroids Right ankle ulcers Do not appear to be infected. N/V - Resolved CHF HTN Hx of CAD - s/p CABG Plan - Empiric IV Vancomycin #/ and Cefepime #5 (abx d #05/30) for PNA -f/u Bcx x2 -01/05 SP Ceftriaxone #3 - 12/25/18 S/P Zosyn #4 -f/u sp cx -Cdiff if diarrhea Thank you for this consult. We will continue to follow the patient during this hospitalization. Subjective Allergies: Coded Allergies: EGG (Verified Allergy, Unknown, 09/28/18) MEPERIDINE (Verified Allergy, Unknown, 09/28/18) MORPHINE (Verified Allergy, Unknown, 09/28/18) NITROGLYCERIN (Verified Allergy, Unknown, hives, 09/28/18) Subjective Low grade fevers on NC No Leukocytosis Objective Vital Signs Last 24 Hour Vital Signs Date Time Temp Pulse Resp B/P (MAP) Pulse Ox O2 Delivery O2 Flow Rate FiO2 01/09/19 07:27 Nasal Cannula 2.0 28 01/09/19 07:26 92 Nasal Cannula 2.0 28 01/09/19 07:21 82 18 92 Nasal Cannula 2.0 28 01/09/19 07:09 100.0 01/09/19 04:00 90 01/09/19 04:00 100.0 92 18 116/57 (76) 98 01/09/19 00:00 98.1 93 20 109/61 (77) 93 01/08/19 23:25 98 01/08/19 22:57 91 18 100 Nasal Cannula 2.0 28 01/08/19 22:45 95 18 95 Nasal Cannula 2.0 28 2/15/19 21:31 98.3 01/08/19 21:00 Room Air 01/08/19 21:00 101 18 98 Nasal Cannula 2.0 28 01/08/19 20:48 86 18 86 Room Air 21 01/08/19 20:00 101 01/08/19 20:00 100.8 99 18 117/53 (74) 93 01/08/19 16:00 100.0 112 16 122/62 (82) 94 01/08/19 16:00 103 01/08/19 14:03 Room Air 01/08/19 14:02 Room Air 01/08/19 12:00 98.1 102 16 129/61 (83) 97 01/08/19 12:00 99 01/08/19 10:48 103 20 95 Room Air 21 01/08/19 10:47 101 18 93 Room Air 21 01/08/19 09:22 67 115/61 01/08/19 09:00 Room Air 01/08/19 08:02 67 20 97 Nasal Cannula 2.0 28 01/08/19 08:01 21 01/08/19 08:00 109 01/08/19 08:00 98.2 100 19 115/61 (79) 96 01/08/19 07:58 63 20 95 Nasal Cannula 2.0 28 Height (Feet): 6 Height (Inches): 1.00 Weight (Pounds): 125 Objective Gen: NAD, well appearing, alert HEENT: NCAT, MMM, EOMI LUNGS: CTAB, No W/C, No Accessory muscle use CARDS: RRR, S1, S2, No M/R/G, ABD: Soft, NT, ND, + BS Ext: right ankle with two shallow ulcers, No surrounding erythema no purulence , Pulses 2+ B/L (DP, Rad): Laboratory Tests Test 01/08/19 10:55 Vancomycin Level Trough 11.2 ug/mL (5.0-12.0) Current Medications Medications (Trade) Dose Ordered Sig/Aminata Route PRN Reason Start Time Stop Time Status Last Admin Dose Admin Acetaminophen (Tylenol) 650 mg Q6H PRN ORAL Mild Pain/Temp > 100.5 01/03/19 16:00 01/30/19 15:59 01/08/19 21:01 Acetylcysteine (Mucomyst) 100 mg TIDRT HHN 01/03/19 19:00 01/26/19 12:59 01/09/19 07:21 Amlodipine Besylate (Norvasc) 10 mg DAILY ORAL 01/04/19 09:00 01/21/19 08:59 01/08/19 09:22 Budesonide (Pulmicort) 0.25 mg Q12HRT HHN 01/03/19 22:00 02/02/19 21:59 01/08/19 22:45 Cefepime HCl 1 gm/ Dextrose 55 ml @ 110 mls/hr Q24H IVPB 01/05/19 17:00 01/12/19 16:59 01/08/19 16:58 Clopidogrel Bisulfate (Plavix) 75 mg DAILY ORAL 01/04/19 09:00 01/21/19 08:59 01/08/19 09:21 Dextrose (Dextrose 50%) 25 ml Q30M PRN IV Hypoglycemia 01/03/19 15:30 01/21/19 07:29 Dextrose (Dextrose 50%) 50 ml Q30M PRN IV Hypoglycemia 01/03/19 15:30 01/21/19 07:29 Heparin Sodium (Porcine) (Heparin 5000 units/ml) 5,000 units EVERY 12 HOURS SUBQ 01/03/19 21:00 01/21/19 08:59 01/07/19 21:09 Hydromorphone HCl (Dilaudid) 3 mg Q3H PRN IVP Severe Pain (Pain Scale 7-10) 01/07/19 16:15 01/14/19 16:14 01/09/19 06:39 Levalbuterol HCl (Xopenex) 1.25 mg Q4HRT PRN HHN Shortness of Breath 01/08/19 20:30 01/13/19 20:29 01/09/19 07:21 Levetiracetam (Keppra) 250 mg Q12HR ORAL 01/03/19 21:00 01/30/19 08:59 01/08/19 21:00 Mirtazapine (Remeron) 30 mg BEDTIME ORAL 01/03/19 21:00 01/23/19 20:59 01/08/19 21:00 Ondansetron HCl (Zofran) 4 mg Q6H PRN IVP Nausea & Vomiting 01/03/19 15:30 01/21/19 15:29 Vancomycin HCl (Vanco rx to dose) 1 ea DAILY PRN MISC Per rx protocol 01/03/19 15:30 02/02/19 15:29 Vancomycin HCl 1 gm/Dextrose 275 ml @ 183.708 mls/hr Q24H IVPB 01/09/19 12:00 01/14/19 11:59 Adonis Lozoya MD Jan 09, 2019 07:35
[2019-01-09 08:00] VITALS: BP 115/55
[2019-01-09] MEDS: Heparin 5000 units/ml inj SUBQ SCH ×2 (08:34→22:09)
--- NOTE | 2019-01-09 09:18 | Pulmonology Progress Note ---
Assessment/Plan Problems: (1) Nosocomial pneumonia (2) COPD exacerbation (3) Acute bronchitis (4) Hypothyroidism (5) CAD (coronary artery disease) (6) Severe protein-calorie malnutrition (7) Chronic ulcer of right leg Assessment/Plan no new complains feeling better but lower than yesterday cxr showing RLL infiltrate no new complains renal f/u respiratory treatment wound care Subjective ROS Limited/Unobtainable: No Constitutional: Reports: no symptoms HEENT: Repors: no symptoms Allergies: Coded Allergies: EGG (Verified Allergy, Unknown, 09/28/18) MEPERIDINE (Verified Allergy, Unknown, 09/28/18) MORPHINE (Verified Allergy, Unknown, 09/28/18) NITROGLYCERIN (Verified Allergy, Unknown, hives, 09/28/18) Objective Last 24 Hour Vital Signs Date Time Temp Pulse Resp B/P (MAP) Pulse Ox O2 Delivery O2 Flow Rate FiO2 01/09/19 08:34 86 115/55 01/09/19 08:22 86 20 Nasal Cannula 2.0 28 01/09/19 08:00 97.5 107 20 115/55 (75) 93 01/09/19 07:35 86 18 94 Nasal Cannula 2.0 28 01/09/19 07:27 Nasal Cannula 2.0 28 01/09/19 07:26 92 Nasal Cannula 2.0 28 01/09/19 07:21 82 18 92 Nasal Cannula 2.0 28 01/09/19 07:09 100.0 01/09/19 04:00 90 01/09/19 04:00 100.0 92 18 116/57 (76) 98 01/09/19 00:00 98.1 93 20 109/61 (77) 93 01/08/19 23:25 98 01/08/19 22:57 91 18 100 Nasal Cannula 2.0 28 01/08/19 22:45 95 18 95 Nasal Cannula 2.0 28 01/08/19 21:31 98.3 01/08/19 21:00 Room Air 01/08/19 21:00 101 18 98 Nasal Cannula 2.0 28 01/08/19 20:48 86 18 86 Room Air 21 01/08/19 20:00 101 01/08/19 20:00 100.8 99 18 117/53 (74) 93 01/08/19 16:00 100.0 112 16 122/62 (82) 94 01/08/19 16:00 103 01/08/19 14:03 Room Air 01/08/19 14:02 Room Air 01/08/19 12:00 98.1 102 16 129/61 (83) 97 01/08/19 12:00 99 01/08/19 10:48 103 20 95 Room Air 21 01/08/19 10:47 101 18 93 Room Air 21 01/08/19 09:22 67 115/61 Intake and Output 01/08/19 01/09/19 19:00 07:00 Intake Total 570 ml Output Total 1150 ml Balance -580 ml Intake Oral 240 ml IV Total 330 ml Output Urine Total 1150 ml # Voids 3 3 Objective General Appearance: cachectic HEENT: normocephalic Respiratory/Chest: chest wall non-tender, lungs clear, decrease breath sounds Cardiovascular: normal peripheral pulses, normal rate Abdomen: normal bowel sounds, soft, non tender Extremities: no cyanosis Skin: no rash Laboratory Tests 01/08/19 10:55: Vancomycin Level Trough 11.2 Current Medications Medications (Trade) Dose Ordered Sig/Aminata Route PRN Reason Start Time Stop Time Status Last Admin Dose Admin Acetaminophen (Tylenol) 650 mg Q6H PRN ORAL Mild Pain/Temp > 100.5 01/03/19 16:00 01/30/19 15:59 01/08/19 21:01 Acetylcysteine (Mucomyst) 100 mg TIDRT N 01/03/19 19:00 01/26/19 12:59 01/09/19 07:21 Amlodipine Besylate (Norvasc) 10 mg DAILY ORAL 01/04/19 09:00 01/21/19 08:59 01/09/19 08:34 Budesonide (Pulmicort) 0.25 mg Q12HRT HHN 01/03/19 22:00 02/02/19 21:59 01/08/19 22:45 Cefepime HCl 1 gm/ Dextrose 55 ml @ 110 mls/hr Q24H IVPB 01/05/19 17:00 01/10/19 07:37 01/08/19 16:58 Clopidogrel Bisulfate (Plavix) 75 mg DAILY ORAL 01/04/19 09:00 01/21/19 08:59 01/09/19 08:34 Dextrose (Dextrose 50%) 25 ml Q30M PRN IV Hypoglycemia 01/03/19 15:30 01/21/19 07:29 Dextrose (Dextrose 50%) 50 ml Q30M PRN IV Hypoglycemia 01/03/19 15:30 01/21/19 07:29 Heparin Sodium (Porcine) (Heparin 5000 units/ml) 5,000 units EVERY 12 HOURS SUBQ 01/03/19 21:00 01/21/19 08:59 01/07/19 21:09 Hydromorphone HCl (Dilaudid) 3 mg Q3H PRN IVP Severe Pain (Pain Scale 7-10) 01/07/19 16:15 01/14/19 16:14 01/09/19 06:39 Levalbuterol HCl (Xopenex) 1.25 mg Q4HRT PRN HHN Shortness of Breath 01/08/19 20:30 01/13/19 20:29 01/09/19 07:21 Levetiracetam (Keppra) 250 mg Q12HR ORAL 01/03/19 21:00 01/30/19 08:59 01/09/19 08:34 Mirtazapine (Remeron) 30 mg BEDTIME ORAL 01/03/19 21:00 01/23/19 20:59 01/08/19 21:00 Ondansetron HCl (Zofran) 4 mg Q6H PRN IVP Nausea & Vomiting 01/03/19 15:30 01/21/19 15:29 Vancomycin HCl (Vanco rx to dose) 1 ea DAILY PRN MISC Per rx protocol 01/03/19 15:30 01/10/19 07:37 Vancomycin HCl 1 gm/Dextrose 275 ml @ 183.708 mls/hr Q24H IVPB 01/09/19 12:00 01/14/19 11:59 Jessie Magana MD Jan 09, 2019 09:18
--- NOTE | 2019-01-09 09:45 | NUR ---
CASE MANAGEMENT: REVIEW 01/09/2019 SI:CHF EXACERBATION. CP. T 97.5 HR 107 RR 20 B/P 115/55 SATS 93% ON 2L/NC NO LABS TODAY IS:NORVASC PO QD PLAVIX PO QD KEPPRA PO Q12H PULMICORT HHN Q12H CEFEPIME IV Q24H VANCO IV Q24H TELE STATUS DCP: PATIENT TO BE DISCHARGED TO HOME ONCE MEDICALLY CLEARED. PLAN OF CARE: CONTINUE CURRENT TREATMENT
[2019-01-09] MEDS: Budesonide HHN 0.25mg/2ml ud HHN SCH ×2 (10:00→20:03)
[2019-01-09] MEDS: Vancomycin 1gm/D5W 275ml IVPB SCH ×2 (11:32)
[2019-01-09 12:00] VITALS: BP 122/58
--- NOTE | 2019-01-09 13:26 | NUR ---
NURSE NOTES: Notified Dr. Jessie Magana and Fe, Charge Nurse, that patient's IV infiltrated, the hand and arm were covered with Kerlix wrap, so infiltration was not detected until I cut off the Kerlix. Hot compresses placed on patient, arm elevated on pillow, and it is improving.
[2019-01-09 16:00] VITALS: BP 132/74
--- NOTE | 2019-01-09 16:24 | Cardiology Report ---
APPROVED REPORT EKG Measurement Heart [id number] NM [id number] Sinus tachycardia Right atrial enlargement Borderline ECG
[2019-01-09] MEDS: Cefepime HCl 1 GM in D5W 55 ML IVPB SCH (17:27)
--- NOTE | 2019-01-09 18:33 | General Progress Note ---
Assessment/Plan Problem List: (1) Chest pain ICD Codes: R07.9 - Chest pain, unspecified SNOMED: 76364567 Qualifiers: Qualified Codes: R07.9 - Chest pain, unspecified (2) Emphysema lung ICD Codes: J43.9 - Emphysema, unspecified SNOMED: 67514678 (3) ACS (acute coronary syndrome) ICD Codes: I24.9 - Acute coronary syndrome SNOMED: 597944410 (4) CAD (coronary artery disease) ICD Codes: I25.10 - Atherosclerosis of coronary artery SNOMED: 217670976 (5) Peripheral vascular disease ICD Codes: I73.9 - Peripheral vascular disease, unspecified SNOMED: 833565473 (6) HTN (hypertension) ICD Codes: I10 - Hypertension SNOMED: 27694229 Status: progressing Assessment/Plan covering for dr van van REviewed chart and labs chf exac reviewed chart and labs copd exac IMPROVING cad Subjective ROS Limited/Unobtainable: Yes Allergies: Coded Allergies: EGG (Verified Allergy, Unknown, 09/28/18) MEPERIDINE (Verified Allergy, Unknown, 09/28/18) MORPHINE (Verified Allergy, Unknown, 09/28/18) NITROGLYCERIN (Verified Allergy, Unknown, hives, 09/28/18) Objective Last 24 Hour Vital Signs Date Time Temp Pulse Resp B/P (MAP) Pulse Ox O2 Delivery O2 Flow Rate FiO2 01/09/19 16:27 98.4 01/09/19 16:00 98.4 116 20 132/74 (93) 93 01/09/19 13:46 112 20 97 Nasal Cannula 2.0 28 01/09/19 13:39 115 20 93 Nasal Cannula 2.0 28 01/09/19 12:00 98.8 99 20 122/58 (79) 98 01/09/19 10:11 Nasal Cannula 01/09/19 10:11 Nasal Cannula 01/09/19 09:00 Room Air 01/09/19 08:34 86 115/55 01/09/19 08:22 86 20 Nasal Cannula 2.0 28 01/09/19 08:00 97.5 107 20 115/55 (75) 93 01/09/19 08:00 114 01/09/19 07:35 86 18 94 Nasal Cannula 2.0 28 01/09/19 07:27 Nasal Cannula 2.0 28 01/09/19 07:26 92 Nasal Cannula 2.0 28 01/09/19 07:21 82 18 92 Nasal Cannula 2.0 28 01/09/19 04:00 90 01/09/19 04:00 100.0 92 18 116/57 (76) 98 01/09/19 00:00 98.1 93 20 109/61 (77) 93 01/08/19 23:25 98 01/08/19 22:57 91 18 100 Nasal Cannula 2.0 28 01/08/19 22:45 95 18 95 Nasal Cannula 2.0 28 01/08/19 21:31 98.3 01/08/19 21:00 Room Air 01/08/19 21:00 101 18 98 Nasal Cannula 2.0 28 01/08/19 20:48 86 18 86 Room Air 21 01/08/19 20:00 101 01/08/19 20:00 100.8 99 18 117/53 (74) 93 Intake and Output 01/08/19 01/09/19 19:00 07:00 Intake Total 570 ml Output Total 1150 ml Balance -580 ml Intake Oral 240 ml IV Total 330 ml Output Urine Total 1150 ml # Voids 3 3 Height (Feet): 6 Height (Inches): 1.00 Weight (Pounds): 125 EENT: PERRL/EOMI Neck: supple Cardiovascular: normal rate Respiratory/Chest: lungs clear Abdomen: soft Brittny Dalton MD Jan 09, 2019 18:33
--- NOTE | 2019-01-09 19:47 | NUR ---
HAND-OFF: Report given to Tl Chan RN. Patient sitting in semi-Fowlers, position, awake and alert, pain treated with Dilaudid, IV patent in right hand, no c/o pain, no SOB, oxygen at 2 liters nasal cannula, side rails up x 3, urinal at bedside, bedside commode at bedside.
--- NOTE | 2019-01-09 19:48 | NUR ---
NURSE NOTES: Received report from CHRISTOPHER ROSADO. Patient is in bed awake. Vitals stable. Respiration even non labored on 2L nc. No SOB noted. AOx4. IV line patent and intact. Bed in lowest position. Call light within reach. All needs attended and met. Will continue plan of care.
[2019-01-09 20:00] VITALS: BP 128/68
--- NOTE | 2019-01-09 22:13 | General Progress Note ---
Assessment/Plan Problem List: (1) MDD (major depressive disorder), recurrent episode ICD Codes: F33.9 - Major depressive disorder, recurrent, unspecified SNOMED: 710652062 Assessment/Plan remeron 30mg po qhs provided ro/st Subjective 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: Reports: anxiety, depressed, emotional problems Allergies: Coded Allergies: EGG (Verified Allergy, Unknown, 09/28/18) MEPERIDINE (Verified Allergy, Unknown, 09/28/18) MORPHINE (Verified Allergy, Unknown, 09/28/18) NITROGLYCERIN (Verified Allergy, Unknown, hives, 09/28/18) Subjective the pt is the same Objective Last 24 Hour Vital Signs Date Time Temp Pulse Resp B/P (MAP) Pulse Ox O2 Delivery O2 Flow Rate FiO2 01/09/19 20:03 Room Air 21 01/09/19 20:02 Room Air 21 01/09/19 20:02 Room Air 01/09/19 20:01 Room Air 01/09/19 20:00 Room Air 21 01/09/19 19:59 Nasal Cannula 2.0 28 01/09/19 16:27 98.4 01/09/19 16:00 98.4 116 20 132/74 (93) 93 01/09/19 13:46 112 20 97 Nasal Cannula 2.0 28 01/09/19 13:39 115 20 93 Nasal Cannula 2.0 28 01/09/19 12:00 98.8 99 20 122/58 (79) 98 01/09/19 10:11 Nasal Cannula 01/09/19 10:11 Nasal Cannula 01/09/19 09:00 Room Air 01/09/19 08:34 86 115/55 01/09/19 08:22 86 20 Nasal Cannula 2.0 28 01/09/19 08:00 97.5 107 20 115/55 (75) 93 01/09/19 08:00 114 01/09/19 07:35 86 18 94 Nasal Cannula 2.0 28 01/09/19 07:27 Nasal Cannula 2.0 28 01/09/19 07:26 92 Nasal Cannula 2.0 28 01/09/19 07:21 82 18 92 Nasal Cannula 2.0 28 01/09/19 04:00 90 01/09/19 04:00 100.0 92 18 116/57 (76) 98 2/16/19 00:00 98.1 93 20 109/61 (77) 93 01/08/19 23:25 98 01/08/19 22:57 91 18 100 Nasal Cannula 2.0 28 01/08/19 22:45 95 18 95 Nasal Cannula 2.0 28 Intake and Output 01/08/19 01/09/19 19:00 07:00 Intake Total 570 ml Output Total 1150 ml Balance -580 ml Intake Oral 240 ml IV Total 330 ml Output Urine Total 1150 ml # Voids 3 3 Height (Feet): 6 Height (Inches): 1.00 Weight (Pounds): 125 Rachael Buckley MD Jan 09, 2019 22:13
[2019-01-10] VITALS: BP 135/70
[2019-01-10 04:00] VITALS: BP 117/57
[2019-01-10] MEDS: Levalbuterol Inh UD 1.25mg/0.5ml HHN PRN ×2 (07:07→18:59)
--- NOTE | 2019-01-10 07:07 | NUR ---
HAND-OFF: Report given to CHRISTOPHER Sotelo.
--- NOTE | 2019-01-10 07:10 | NUR ---
NURSE NOTES: Received report from CHRISTOPHER Turner. Patient is resting in bed, sleeping. Breathing even and non labored on room air. No signs and symptoms of acute distress at this time. Bed in lowest position with two side rails up. Call light and bed side table within reach. Will continue to monitor and follow plan of care.
[2019-01-10 08:00] VITALS: BP 129/86
[2019-01-10] MEDS: Budesonide HHN 0.25mg/2ml ud HHN SCH ×2 (08:50→22:00)
[2019-01-10] MEDS: Heparin 5000 units/ml inj SUBQ SCH ×2 (09:00→20:58)
[2019-01-10] MEDS: Vancomycin 1gm/D5W 275ml IVPB SCH ×2 (11:59)
[2019-01-10 12:00] VITALS: BP 130/63
--- NOTE | 2019-01-10 12:42 | Pulmonology Progress Note ---
Assessment/Plan Problems: (1) Nosocomial pneumonia (2) COPD exacerbation (3) Acute bronchitis (4) Hypothyroidism (5) CAD (coronary artery disease) (6) Severe protein-calorie malnutrition (7) Chronic ulcer of right leg Assessment/Plan no new complains feeling better but lower than yesterday cxr showing RLL infiltrate no new complains renal f/u respiratory treatment wound care Subjective ROS Limited/Unobtainable: No Constitutional: Reports: no symptoms HEENT: Repors: no symptoms Respiratory: Reports: no symptoms Allergies: Coded Allergies: EGG (Verified Allergy, Unknown, 09/28/18) MEPERIDINE (Verified Allergy, Unknown, 09/28/18) MORPHINE (Verified Allergy, Unknown, 09/28/18) NITROGLYCERIN (Verified Allergy, Unknown, hives, 09/28/18) Objective Last 24 Hour Vital Signs Date Time Temp Pulse Resp B/P (MAP) Pulse Ox O2 Delivery O2 Flow Rate FiO2 01/10/19 12:00 98.6 93 19 130/63 (85) 94 01/10/19 09:06 81 129/86 01/10/19 09:00 Room Air 01/10/19 08:50 Room Air 21 01/10/19 08:50 Room Air 21 01/10/19 08:00 97.8 81 18 129/86 (100) 97 01/10/19 07:08 92 16 98 Nasal Cannula 2.0 28 01/10/19 07:07 97 Nasal Cannula 2.0 28 01/10/19 07:07 Nasal Cannula 2.0 28 01/10/19 07:00 88 16 97 Nasal Cannula 2.0 28 01/10/19 04:00 97.7 100 19 117/57 (77) 95 01/10/19 00:34 Nasal Cannula 2.0 28 01/10/19 00:34 94 Nasal Cannula 2.0 28 01/10/19 00:00 97.0 93 18 135/70 (91) 95 01/09/19 21:00 Room Air 01/09/19 20:03 Room Air 21 01/09/19 20:02 Room Air 21 01/09/19 20:02 Room Air 01/09/19 20:01 Room Air 01/09/19 20:00 Room Air 21 01/09/19 20:00 97.0 81 19 128/68 (88) 90 01/09/19 19:59 Nasal Cannula 2.0 28 01/09/19 16:27 98.4 01/09/19 16:00 98.4 116 20 132/74 (93) 93 01/09/19 13:46 112 20 97 Nasal Cannula 2.0 28 01/09/19 13:39 115 20 93 Nasal Cannula 2.0 28 Intake and Output 01/09/19 01/10/19 18:59 06:59 Intake Total 770 ml 120 ml Output Total 200 ml Balance 570 ml 120 ml Intake Oral 440 ml 120 ml IV Total 330 ml Output Urine Total 200 ml Objective General Appearance: cachectic HEENT: normocephalic Respiratory/Chest: chest wall non-tender, lungs clear, decrease breath sounds Cardiovascular: normal peripheral pulses, normal rate Abdomen: normal bowel sounds, soft, non tender Extremities: no cyanosis Skin: no rash Current Medications Medications (Trade) Dose Ordered Sig/Aminata Route PRN Reason Start Time Stop Time Status Last Admin Dose Admin Acetaminophen (Tylenol) 650 mg Q6H PRN ORAL Mild Pain/Temp > 100.5 01/03/19 16:00 01/30/19 15:59 01/08/19 21:01 Acetylcysteine (Mucomyst) 100 mg TIDRT N 01/03/19 19:00 01/26/19 12:59 01/10/19 07:07 Amlodipine Besylate (Norvasc) 10 mg DAILY ORAL 01/04/19 09:00 01/21/19 08:59 01/10/19 09:06 Budesonide (Pulmicort) 0.25 mg Q12HRT [facility] 01/03/19 22:00 02/02/19 21:59 01/08/19 22:45 Clopidogrel Bisulfate (Plavix) 75 mg DAILY ORAL 01/04/19 09:00 01/21/19 08:59 01/10/19 09:06 Dextrose (Dextrose 50%) 25 ml Q30M PRN IV Hypoglycemia 01/03/19 15:30 01/21/19 07:29 Dextrose (Dextrose 50%) 50 ml Q30M PRN IV Hypoglycemia 01/03/19 15:30 01/21/19 07:29 Heparin Sodium (Porcine) (Heparin 5000 units/ml) 5,000 units EVERY 12 HOURS SUBQ 01/03/19 21:00 01/21/19 08:59 01/09/19 22:09 Hydromorphone HCl (Dilaudid) 3 mg Q3H PRN IVP Severe Pain (Pain Scale 7-10) 01/07/19 16:15 01/14/19 16:14 01/10/19 09:46 Levalbuterol HCl (Xopenex) 1.25 mg Q4HRT PRN HHN Shortness of Breath 01/08/19 20:30 01/13/19 20:29 01/10/19 07:07 Levetiracetam (Keppra) 250 mg Q12HR ORAL 01/03/19 21:00 01/30/19 08:59 01/10/19 09:06 Mirtazapine (Remeron) 30 mg BEDTIME ORAL 01/03/19 21:00 01/23/19 20:59 01/09/19 22:08 Ondansetron HCl (Zofran) 4 mg Q6H PRN IVP Nausea & Vomiting 01/03/19 15:30 01/21/19 15:29 Vancomycin HCl 1 gm/Dextrose 275 ml @ 183.708 mls/hr Q24H IVPB 01/09/19 12:00 01/10/19 23:59 01/10/19 11:59 Jesise Magana MD Jan 10, 2019 12:42
--- NOTE | 2019-01-10 13:14 | General Progress Note ---
Assessment/Plan Problem List: (1) Chest pain ICD Codes: R07.9 - Chest pain, unspecified SNOMED: 50453641 Qualifiers: Qualified Codes: R07.9 - Chest pain, unspecified (2) Emphysema lung ICD Codes: J43.9 - Emphysema, unspecified SNOMED: 72107860 (3) ACS (acute coronary syndrome) ICD Codes: I24.9 - Acute coronary syndrome SNOMED: 130910235 (4) CAD (coronary artery disease) ICD Codes: I25.10 - Atherosclerosis of coronary artery SNOMED: 557086787 (5) Peripheral vascular disease ICD Codes: I73.9 - Peripheral vascular disease, unspecified SNOMED: 707627823 (6) HTN (hypertension) ICD Codes: I10 - Hypertension SNOMED: 65480121 Status: progressing Assessment/Plan no chest pain chf exacerbation improving check troponin copd exac cad Subjective ROS Limited/Unobtainable: Yes Allergies: Coded Allergies: EGG (Verified Allergy, Unknown, 09/28/18) MEPERIDINE (Verified Allergy, Unknown, 09/28/18) MORPHINE (Verified Allergy, Unknown, 09/28/18) NITROGLYCERIN (Verified Allergy, Unknown, hives, 09/28/18) Objective Last 24 Hour Vital Signs Date Time Temp Pulse Resp B/P (MAP) Pulse Ox O2 Delivery O2 Flow Rate FiO2 01/10/19 12:00 98.6 93 19 130/63 (85) 94 01/10/19 09:06 81 129/86 01/10/19 09:00 Room Air 01/10/19 08:50 Room Air 21 01/10/19 08:50 Room Air 21 01/10/19 08:00 97.8 81 18 129/86 (100) 97 01/10/19 07:08 92 16 98 Nasal Cannula 2.0 28 01/10/19 07:07 97 Nasal Cannula 2.0 28 01/10/19 07:07 Nasal Cannula 2.0 28 01/10/19 07:00 88 16 97 Nasal Cannula 2.0 28 01/10/19 04:00 97.7 100 19 117/57 (77) 95 01/10/19 00:34 Nasal Cannula 2.0 28 01/10/19 00:34 94 Nasal Cannula 2.0 28 01/10/19 00:00 97.0 93 18 135/70 (91) 95 01/09/19 21:00 Room Air 01/09/19 20:03 Room Air 21 01/09/19 20:02 Room Air 21 01/09/19 20:02 Room Air 01/09/19 20:01 Room Air 01/09/19 20:00 Room Air 21 01/09/19 20:00 97.0 81 19 128/68 (88) 90 01/09/19 19:59 Nasal Cannula 2.0 28 01/09/19 16:27 98.4 01/09/19 16:00 98.4 116 20 132/74 (93) 93 01/09/19 13:46 112 20 97 Nasal Cannula 2.0 28 01/09/19 13:39 115 20 93 Nasal Cannula 2.0 28 Intake and Output 01/09/19 01/10/19 18:59 06:59 Intake Total 770 ml 120 ml Output Total 200 ml Balance 570 ml 120 ml Intake Oral 440 ml 120 ml IV Total 330 ml Output Urine Total 200 ml Height (Feet): 6 Height (Inches): 1.00 Weight (Pounds): 125 Neck: supple Cardiovascular: normal rate Respiratory/Chest: lungs clear Abdomen: soft Brittny Dalton MD Jan 10, 2019 13:14
--- NOTE | 2019-01-10 13:53 | Cardiology Progress Note ---
Assessment/Plan Assessment/Plan 1. Chronic recurrent chest pain. 2. Visible foreign body in the left sternal area consistent with sternal wires. 3. Coronary artery disease, status post coronary artery bypass grafting and prior PCI. 4. COPD. 5. Chronic pain. 6. Osteomyelitis of lower extremity. 7. Tachycardia was not able to see cts at [facility] he says they did not answer their phone!! chest wall is ternder hn q4 hour prn tachycardic may be related to hhn diuretic prn may be able to used cardizem instead of norvasc if tachy in future Subjective Cardiovascular: Reports: chest pain Respiratory: Reports: shortness of breath Gastrointestinal/Abdominal: Denies: abdominal pain Genitourinary: Denies: burning Subjective poor appetite Objective Last 24 Hour Vital Signs Date Time Temp Pulse Resp B/P (MAP) Pulse Ox O2 Delivery O2 Flow Rate FiO2 01/10/19 13:25 Room Air 21 01/10/19 13:25 Room Air 21 01/10/19 12:00 98.6 93 19 130/63 (85) 94 01/10/19 09:06 81 129/86 01/10/19 09:00 Room Air 01/10/19 08:50 Room Air 21 01/10/19 08:50 Room Air 21 01/10/19 08:00 97.8 81 18 129/86 (100) 97 01/10/19 07:08 92 16 98 Nasal Cannula 2.0 28 01/10/19 07:07 97 Nasal Cannula 2.0 28 01/10/19 07:07 Nasal Cannula 2.0 28 01/10/19 07:00 88 16 97 Nasal Cannula 2.0 28 01/10/19 04:00 97.7 100 19 117/57 (77) 95 01/10/19 00:34 Nasal Cannula 2.0 28 01/10/19 00:34 94 Nasal Cannula 2.0 28 01/10/19 00:00 97.0 93 18 135/70 (91) 95 01/09/19 21:00 Room Air 01/09/19 20:03 Room Air 21 01/09/19 20:02 Room Air 21 01/09/19 20:02 Room Air 01/09/19 20:01 Room Air 01/09/19 20:00 Room Air 21 01/09/19 20:00 97.0 81 19 128/68 (88) 90 01/09/19 19:59 Nasal Cannula 2.0 28 01/09/19 16:27 98.4 01/09/19 16:00 98.4 116 20 132/74 (93) 93 General Appearance: no apparent distress, alert Neck: supple Cardiovascular: normal rate Respiratory/Chest: decreased breath sounds Abdomen: normal bowel sounds, non tender, soft Extremities: no swelling Intake and Output 01/09/19 01/10/19 19:00 07:00 Intake Total 770 ml 120 ml Output Total 200 ml Balance 570 ml 120 ml Intake Oral 440 ml 120 ml IV Total 330 ml Output Urine Total 200 ml Sergio Anaya MD Jan 10, 2019 13:53
[2019-01-10 16:00] VITALS: BP 108/56
--- NOTE | 2019-01-10 19:05 | NUR ---
HAND-OFF: Report given to CHRISTOPHER Turner.
--- NOTE | 2019-01-10 19:06 | NUR ---
NURSE NOTES: Received report from CHRISTOPHER Sotelo. Patient is in bed awake. Vitals stable. Respiration even non labored on 2L nc. No SOB noted. AOx4. IV line patent and intact. Bed in lowest position. Call light within reach. All needs attended and met. Will continue plan of care.
[2019-01-10 20:00] VITALS: BP 119/65
--- NOTE | 2019-01-10 20:18 | General Progress Note ---
Assessment/Plan Problem List: (1) MDD (major depressive disorder), recurrent episode ICD Codes: F33.9 - Major depressive disorder, recurrent, unspecified SNOMED: 525572282 Assessment/Plan remeron 45mg po qhs provided ro/st Subjective 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: Reports: anxiety, depressed Allergies: Coded Allergies: EGG (Verified Allergy, Unknown, 09/28/18) MEPERIDINE (Verified Allergy, Unknown, 09/28/18) MORPHINE (Verified Allergy, Unknown, 09/28/18) NITROGLYCERIN (Verified Allergy, Unknown, hives, 09/28/18) Subjective the pt is more depressed Objective Last 24 Hour Vital Signs Date Time Temp Pulse Resp B/P (MAP) Pulse Ox O2 Delivery O2 Flow Rate FiO2 01/10/19 19:28 Room Air 21 01/10/19 19:28 97 Room Air 21 01/10/19 19:11 99 16 97 Room Air 21 01/10/19 18:59 89 16 90 Room Air 21 01/10/19 16:00 98.8 109 16 108/56 (73) 95 01/10/19 13:25 Room Air 21 01/10/19 13:25 Room Air 21 01/10/19 12:00 98.6 93 19 130/63 (85) 94 01/10/19 09:06 81 129/86 01/10/19 09:00 Room Air 01/10/19 08:50 Room Air 21 01/10/19 08:50 Room Air 21 01/10/19 08:00 97.8 81 18 129/86 (100) 97 01/10/19 07:08 92 16 98 Nasal Cannula 2.0 28 01/10/19 07:07 97 Nasal Cannula 2.0 28 01/10/19 07:07 Nasal Cannula 2.0 28 01/10/19 07:00 88 16 97 Nasal Cannula 2.0 28 01/10/19 04:00 97.7 100 19 117/57 (77) 95 01/10/19 00:34 Nasal Cannula 2.0 28 01/10/19 00:34 94 Nasal Cannula 2.0 28 01/10/19 00:00 97.0 93 18 135/70 (91) 95 01/09/19 21:00 Room Air Intake and Output 01/09/19 01/10/19 18:59 06:59 Intake Total 770 ml 120 ml Output Total 200 ml Balance 570 ml 120 ml Intake Oral 440 ml 120 ml IV Total 330 ml Output Urine Total 200 ml Height (Feet): 6 Height (Inches): 1.00 Weight (Pounds): 125 General Appearance: WD/WN, no apparent distress, alert Neurologic: oriented x 3, responsive, depressed affect Rachael Buckley MD Jan 10, 2019 20:18
[2019-01-11] VITALS (7 sets, daily range): BP systolic 99–135; BP diastolic 50–72
--- NOTE | 2019-01-11 07:18 | NUR ---
HAND-OFF: Report given to CHRISTOPHER Palmer.
--- NOTE | 2019-01-11 07:30 | NUR ---
NURSE NOTES: Received report from CHRISTOPHER [email or web address]. Pt is sitting up in bed eating breakfast. No distress noted. Bed is in lowest position, side rails up X2, and call light is within reach. Will continue to monitor.
[2019-01-11] MEDS: Levalbuterol Inh UD 1.25mg/0.5ml HHN PRN ×3 (07:54→19:56)
[2019-01-11] MEDS: Heparin 5000 units/ml inj SUBQ SCH ×2 (08:23→20:15)
--- NOTE | 2019-01-11 09:54 | Infectious Diseases Prog Note ---
Assessment/Plan Assessment/Plan 68 yo male with PMHx of COPD and CHF who presented to the ED on 12/21/18 with CP , SOB, N/V but no diarrhea. Sepsis- 2ry to PNA, s/p rx Leukocytosis, SP -01/05 CXR: Left basilar infiltrate, likely pneumonia. More questionable right infrahilar infiltrate. Probable left pleural effusion. Possible mild congestive changes 2/10 u/a neg -influenza sc neg Fever, improvig COPD Exacerbation -12/28 CXR: Slightly increasing interstitial markings bilaterally may be reflective developing mild interstitial edema or pneumonitis. Correlate clinically S/P Tx with Abx and Steroids Right ankle ulcers Do not appear to be infected. N/V - Resolved CHF HTN Hx of CAD - s/p CABG Plan - Continue to monitor off abx -01/10 SP IV Vancomycin #8 -01/09 SP Cefepime #5 -01/05 SP Ceftriaxone #3 - 12/25/18 S/P Zosyn #4 -Cdiff if diarrhea -aspiration precautions -wound care -CXR am Thank you for this consult. We will continue to follow the patient during this hospitalization. Subjective Allergies: Coded Allergies: EGG (Verified Allergy, Unknown, 09/28/18) MEPERIDINE (Verified Allergy, Unknown, 09/28/18) MORPHINE (Verified Allergy, Unknown, 09/28/18) NITROGLYCERIN (Verified Allergy, Unknown, hives, 09/28/18) Subjective Afebrile in >48hrs no leukocytosis at RA feeling better off abx now Objective Vital Signs Last 24 Hour Vital Signs Date Time Temp Pulse Resp B/P (MAP) Pulse Ox O2 Delivery O2 Flow Rate FiO2 01/11/19 08:05 101 16 98 Room Air 21 01/11/19 07:55 97 18 97 Room Air 21 01/11/19 07:20 97 Room Air 21 01/11/19 07:20 Room Air 21 01/11/19 06:56 99.7 01/11/19 04:00 99.7 94 18 120/63 (82) 94 01/11/19 00:00 99.9 100 18 129/68 (88) 93 01/10/19 22:25 Room Air 21 01/10/19 22:24 Room Air 21 01/10/19 21:00 Room Air 01/10/19 20:00 99.3 107 18 119/65 (83) 92 01/10/19 19:28 Room Air 21 01/10/19 19:28 97 Room Air 21 01/10/19 19:11 99 16 97 Room Air 21 01/10/19 18:59 89 16 90 Room Air 21 01/10/19 16:00 98.8 109 16 108/56 (73) 95 01/10/19 13:25 Room Air 21 01/10/19 13:25 Room Air 21 01/10/19 12:00 98.6 93 19 130/63 (85) 94 Height (Feet): 6 Height (Inches): 1.00 Weight (Pounds): 125 Objective Gen: NAD, well appearing, alert HEENT: NCAT, MMM, EOMI, PERRL, No Oral lesion, no scleral icterus NECK: full range of motion, supple, no meningismus, No LAD, No JVD LUNGS: CTAB, No W/C, No Accessory muscle use CARDS: RRR, S1, S2, No M/R/G, ABD: Soft, NT, ND, No R/G, + BS, No HSM, No Masses : Deferred Ext: right ankle with two shallow ulcers, No surrounding erythema no purulence , Pulses 2+ B/L (DP, Rad): NEURO: A/O x 4, Strength and Sensation Grossly intact PSYCH: Mood/affect normal SKIN: Warm/dry, No rashes Current Medications Medications (Trade) Dose Ordered Sig/Aminaat Route PRN Reason Start Time Stop Time Status Last Admin Dose Admin Acetaminophen (Tylenol) 650 mg Q6H PRN ORAL Mild Pain/Temp > 100.5 01/03/19 16:00 01/30/19 15:59 01/08/19 21:01 Acetylcysteine (Mucomyst) 100 mg TIDRT N 01/03/19 19:00 01/26/19 12:59 01/11/19 07:54 Amlodipine Besylate (Norvasc) 10 mg DAILY ORAL 01/04/19 09:00 01/21/19 08:59 01/10/19 09:06 Budesonide (Pulmicort) 0.25 mg Q12HRT N 01/03/19 22:00 02/02/19 21:59 01/08/19 22:45 Clopidogrel Bisulfate (Plavix) 75 mg DAILY ORAL 01/04/19 09:00 01/21/19 08:59 01/11/19 08:21 Dextrose (Dextrose 50%) 25 ml Q30M PRN IV Hypoglycemia 01/03/19 15:30 01/21/19 07:29 Dextrose (Dextrose 50%) 50 ml Q30M PRN IV Hypoglycemia 01/03/19 15:30 01/21/19 07:29 Heparin Sodium (Porcine) (Heparin 5000 units/ml) 5,000 units EVERY 12 HOURS SUBQ 01/03/19 21:00 01/21/19 08:59 01/11/19 08:23 Hydromorphone HCl (Dilaudid) 3 mg Q3H PRN IVP Severe Pain (Pain Scale 7-10) 01/07/19 16:15 01/14/19 16:14 01/11/19 09:38 Levalbuterol HCl (Xopenex) 1.25 mg Q4HRT PRN HHN Shortness of Breath 01/08/19 20:30 01/13/19 20:29 01/11/19 07:54 Levetiracetam (Keppra) 250 mg Q12HR ORAL 01/03/19 21:00 01/30/19 08:59 01/11/19 08:21 Mirtazapine (Remeron) 45 mg BEDTIME ORAL 01/10/19 21:00 02/09/19 20:59 01/10/19 20:57 Ondansetron HCl (Zofran) 4 mg Q6H PRN IVP Nausea & Vomiting 01/03/19 15:30 01/21/19 15:29 Jessica Parry M.D. Jan 11, 2019 09:54
[2019-01-11] MEDS: Budesonide HHN 0.25mg/2ml ud HHN SCH ×2 (10:00→21:37)
--- NOTE | 2019-01-11 10:44 | NUR ---
*-* DISCHARGE PLANNING *-* PATIENT HAS BEEN REFERRED TO: [facility] P:[phone] F:[phone] Addendum: 01/11/19 at 1045 by LATISHA MURPHY CM SPOKE WITH WICHO AT [facility] UNFORTUNATELY THEY DO NOT HAVE ANY BEDS AVAILABILITY TODAY. THEY ARE CURRENTLY WORKING ON DISCHARGING.
--- NOTE | 2019-01-11 11:36 | NUR ---
NURSE NOTES: Pt is sitting up in bed asleep. No distress noted. Will continue to monitor.
--- NOTE | 2019-01-11 11:52 | Pulmonology Progress Note ---
Assessment/Plan Problems: (1) Nosocomial pneumonia (2) COPD exacerbation (3) Acute bronchitis (4) Hypothyroidism (5) CAD (coronary artery disease) (6) Severe protein-calorie malnutrition (7) Chronic ulcer of right leg Assessment/Plan no new complains feeling better but lower than yesterday no new complains renal f/u respiratory treatment wound care doing better Subjective ROS Limited/Unobtainable: No Constitutional: Reports: no symptoms HEENT: Repors: no symptoms Respiratory: Reports: no symptoms Allergies: Coded Allergies: EGG (Verified Allergy, Unknown, 09/28/18) MEPERIDINE (Verified Allergy, Unknown, 09/28/18) MORPHINE (Verified Allergy, Unknown, 09/28/18) NITROGLYCERIN (Verified Allergy, Unknown, hives, 09/28/18) Objective Last 24 Hour Vital Signs Date Time Temp Pulse Resp B/P (MAP) Pulse Ox O2 Delivery O2 Flow Rate FiO2 01/11/19 10:11 Room Air 01/11/19 10:11 Room Air 01/11/19 09:00 Room Air 01/11/19 08:05 101 16 98 Room Air 01/11/19 08:00 97.7 99 16 99/56 (70) 92 01/11/19 07:55 97 18 97 Room Air 01/11/19 07:20 97 Room Air 01/11/19 07:20 Room Air 01/11/19 06:56 99.7 01/11/19 04:00 99.7 94 18 120/63 (82) 94 01/11/19 00:00 99.9 100 18 129/68 (88) 93 01/10/19 22:25 Room Air 21 01/10/19 22:24 Room Air 21 01/10/19 21:00 Room Air 01/10/19 20:00 99.3 107 18 119/65 (83) 92 01/10/19 19:28 Room Air 21 01/10/19 19:28 97 Room Air 21 01/10/19 19:11 99 16 97 Room Air 21 01/10/19 18:59 89 16 90 Room Air 01/10/19 16:00 98.8 109 16 108/56 (73) 95 01/10/19 13:25 Room Air 21 01/10/19 13:25 Room Air 21 01/10/19 12:00 98.6 93 19 130/63 (85) 94 Intake and Output 01/10/19 01/11/19 19:00 07:00 Intake Total 900 ml Output Total 400 ml Balance 900 ml -400 ml Other 900 ml Output Urine Total 400 ml Objective General Appearance: cachectic HEENT: normocephalic Respiratory/Chest: chest wall non-tender, lungs clear, decrease breath sounds Cardiovascular: normal peripheral pulses, normal rate Abdomen: normal bowel sounds, soft, non tender Extremities: no cyanosis Skin: no rash Current Medications Medications (Trade) Dose Ordered Sig/Aminata Route PRN Reason Start Time Stop Time Status Last Admin Dose Admin Acetaminophen (Tylenol) 650 mg Q6H PRN ORAL Mild Pain/Temp > 100.5 01/03/19 16:00 01/30/19 15:59 01/08/19 21:01 Acetylcysteine (Mucomyst) 100 mg TIDRT N 01/03/19 19:00 01/26/19 12:59 01/11/19 07:54 Amlodipine Besylate (Norvasc) 10 mg DAILY ORAL 01/04/19 09:00 01/21/19 08:59 01/10/19 09:06 Budesonide (Pulmicort) 0.25 mg Q12HRT N 01/03/19 22:00 02/02/19 21:59 01/08/19 22:45 Clopidogrel Bisulfate (Plavix) 75 mg DAILY ORAL 01/04/19 09:00 01/21/19 08:59 01/11/19 08:21 Dextrose (Dextrose 50%) 25 ml Q30M PRN IV Hypoglycemia 01/03/19 15:30 01/21/19 07:29 Dextrose (Dextrose 50%) 50 ml Q30M PRN IV Hypoglycemia 01/03/19 15:30 01/21/19 07:29 Heparin Sodium (Porcine) (Heparin 5000 units/ml) 5,000 units EVERY 12 HOURS SUBQ 01/03/19 21:00 01/21/19 08:59 01/11/19 08:23 Hydromorphone HCl (Dilaudid) 3 mg Q3H PRN IVP Severe Pain (Pain Scale 7-10) 01/07/19 16:15 01/14/19 16:14 01/11/19 09:38 Levalbuterol HCl (Xopenex) 1.25 mg Q4HRT PRN HHN Shortness of Breath 01/08/19 20:30 01/13/19 20:29 01/11/19 07:54 Levetiracetam (Keppra) 250 mg Q12HR ORAL 01/03/19 21:00 01/30/19 08:59 01/11/19 08:21 Mirtazapine (Remeron) 45 mg BEDTIME ORAL 01/10/19 21:00 02/09/19 20:59 01/10/19 20:57 Ondansetron HCl (Zofran) 4 mg Q6H PRN IVP Nausea & Vomiting 01/03/19 15:30 01/21/19 15:29 Jessie Magana MD Jan 11, 2019 11:52
--- NOTE | 2019-01-11 13:23 | NUR ---
NURSE NOTES: Patients came in to ask for patients current condition. Her name is not in the chart and there is a signed form that states to not let Rebeka Ring visit the patient. I did not allow to go into the room. I told patient that his was here and wanted to get information on his condition. He said " yeah, give her all the information." I told him that I was making sure since the authorization to visit form was on the chart. He said "forget about that, she is my and you can tell her everything she wants to know". is in room with patient now. : Rebeka Ring [phone]
--- NOTE | 2019-01-11 14:46 | NUR ---
NURSE NOTES: Pt will be transferred to [place]. Pt is refusing pictures of ankle.
--- NOTE | 2019-01-11 14:46 | General Progress Note ---
Assessment/Plan Problem List: (1) Chest pain ICD Codes: R07.9 - Chest pain, unspecified SNOMED: 82343211 Qualifiers: Qualified Codes: R07.9 - Chest pain, unspecified (2) Emphysema lung ICD Codes: J43.9 - Emphysema, unspecified SNOMED: 67282188 (3) ACS (acute coronary syndrome) ICD Codes: I24.9 - Acute coronary syndrome SNOMED: 070945694 (4) CAD (coronary artery disease) ICD Codes: I25.10 - Atherosclerosis of coronary artery SNOMED: 790981743 (5) Peripheral vascular disease ICD Codes: I73.9 - Peripheral vascular disease, unspecified SNOMED: 883995525 (6) HTN (hypertension) ICD Codes: I10 - Hypertension SNOMED: 78185859 Status: progressing Assessment/Plan no chest pain chf exacerbation improving check troponin copd exac cad chronic pain vitals stable reviewed chart and labs Subjective ROS Limited/Unobtainable: Yes Allergies: Coded Allergies: EGG (Verified Allergy, Unknown, 09/28/18) MEPERIDINE (Verified Allergy, Unknown, 09/28/18) MORPHINE (Verified Allergy, Unknown, 09/28/18) NITROGLYCERIN (Verified Allergy, Unknown, hives, 09/28/18) Objective Last 24 Hour Vital Signs Date Time Temp Pulse Resp B/P (MAP) Pulse Ox O2 Delivery O2 Flow Rate FiO2 01/11/19 14:20 103 18 96 Room Air 01/11/19 13:16 98.2 01/11/19 12:00 98.2 96 16 104/50 (68) 93 01/11/19 10:11 Room Air 01/11/19 10:11 Room Air 01/11/19 09:00 Room Air 01/11/19 08:05 101 16 98 Room Air 21 01/11/19 08:00 97.7 99 16 99/56 (70) 92 01/11/19 07:55 97 18 97 Room Air 21 01/11/19 07:20 97 Room Air 21 01/11/19 07:20 Room Air 21 01/11/19 04:00 99.7 94 18 120/63 (82) 94 01/11/19 00:00 99.9 100 18 129/68 (88) 93 01/10/19 22:25 Room Air 21 01/10/19 22:24 Room Air 21 01/10/19 21:00 Room Air 01/10/19 20:00 99.3 107 18 119/65 (83) 92 01/10/19 19:28 Room Air 21 01/10/19 19:28 97 Room Air 21 01/10/19 19:11 99 16 97 Room Air 21 01/10/19 18:59 89 16 90 Room Air 01/10/19 16:00 98.8 109 16 108/56 (73) 95 Intake and Output 01/10/19 01/11/19 19:00 07:00 Intake Total 900 ml Output Total 400 ml Balance 900 ml -400 ml Other 900 ml Output Urine Total 400 ml Height (Feet): 6 Height (Inches): 1.00 Weight (Pounds): 125 Cardiovascular: normal rate Respiratory/Chest: lungs clear Abdomen: soft Brittny Dalton MD Jan 11, 2019 14:46
--- NOTE | 2019-01-11 15:23 | NUR ---
TRANSFER TO FLOOR: Patient transferred to , per MD orders. Report given to CHRISTOPHER Mullins. Belongings remained with the patient. Pt refused to allow us to go through belongings. Pt also refused to have picture taked for his right ankle wound. Nurse is aware. Plan of care endorsed. Pt did not have heart monitor on.
--- NOTE | 2019-01-11 19:21 | NUR ---
HAND-OFF: Report given to CHRISTOPHER Agustin.
[2019-01-11] MEDS ORDERED: Tubing IV Secondary IV ONE (19:56)
[2019-01-11] MEDS ORDERED: NS 275ml ONE (19:56)
--- NOTE | 2019-01-11 20:00 | NUR ---
NURSE NOTES: Patient received in bed, awake and alert. IV intact and patent. No acute distress at this time. C/o pain, will medicate as prescribed. Call light and personal belongings within easy reach. Will continue to monitor.
--- NOTE | 2019-01-11 21:45 | General Progress Note ---
Assessment/Plan Problem List: (1) MDD (major depressive disorder), recurrent episode ICD Codes: F33.9 - Major depressive disorder, recurrent, unspecified SNOMED: 501159396 Assessment/Plan remeron 45mg po qhs provided ro/st Subjective 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: Reports: anxiety, depressed, emotional problems Allergies: Coded Allergies: EGG (Verified Allergy, Unknown, 09/28/18) MEPERIDINE (Verified Allergy, Unknown, 09/28/18) MORPHINE (Verified Allergy, Unknown, 09/28/18) NITROGLYCERIN (Verified Allergy, Unknown, hives, 09/28/18) Subjective the pt is more depressed Objective Last 24 Hour Vital Signs Date Time Temp Pulse Resp B/P (MAP) Pulse Ox O2 Delivery O2 Flow Rate FiO2 01/11/19 21:39 99 18 100 Room Air 21 01/11/19 21:30 98 18 96 Room Air 21 01/11/19 20:00 98.1 107 16 135/62 (86) 93 01/11/19 20:00 99 18 99 Room Air 21 01/11/19 19:58 Room Air 21 01/11/19 19:57 98 Room Air 21 01/11/19 19:50 97 18 97 Room Air 01/11/19 16:00 98.1 105 16 122/66 (84) 93 01/11/19 14:30 105 16 98 Room Air 21 01/11/19 14:20 103 18 96 Room Air 21 01/11/19 13:16 98.2 01/11/19 12:00 98.2 96 16 104/50 (68) 93 01/11/19 10:11 Room Air 21 01/11/19 10:11 Room Air 21 01/11/19 09:00 Room Air 01/11/19 08:05 101 16 98 Room Air 21 01/11/19 08:00 97.7 99 16 99/56 (70) 92 01/11/19 07:55 97 18 97 Room Air 21 01/11/19 07:20 97 Room Air 21 01/11/19 07:20 Room Air 21 01/11/19 04:00 99.7 94 18 120/63 (82) 94 01/11/19 00:00 99.9 100 18 129/68 (88) 93 01/10/19 22:25 Room Air 21 01/10/19 22:24 Room Air 21 Intake and Output 01/10/19 01/11/19 18:59 06:59 Intake Total 900 ml Output Total 400 ml Balance 900 ml -400 ml Other 900 ml Output Urine Total 400 ml Height (Feet): 6 Height (Inches): 1.00 Weight (Pounds): 125 General Appearance: no apparent distress, alert, cachetic Neurologic: oriented x 3, responsive, depressed affect Rachael Buckley MD Jan 11, 2019 21:45
[2019-01-12 04:00] VITALS: BP 126/63
[2019-01-12] MEDS: Levalbuterol Inh UD 1.25mg/0.5ml HHN PRN ×2 (07:06→11:42)
--- NOTE | 2019-01-12 07:34 | NUR ---
HAND-OFF: Report given to Ashley WHITE.
[2019-01-12 08:00] VITALS: BP 120/68
[2019-01-12] MEDS: Heparin 5000 units/ml inj SUBQ SCH ×3 (09:00→21:00)
--- NOTE | 2019-01-12 09:56 | NUR ---
RADIOLOGY DEPT CHEST X-RAY DONE.-P.DYE
[2019-01-12] MEDS: Budesonide HHN 0.25mg/2ml ud HHN SCH ×2 (10:00→22:26)
--- NOTE | 2019-01-12 11:25 | NUR ---
*-* DISCHARGE PLANNING *-* PATIENT HAS BEEN REFERRED TO: [facility] [place]. P:[phone] F:[phone] Addendum: 01/13/19 at 1421 by LATISHA MURPHY *-* [facility] IS NOT CONTRACTED WITH [facility]
--- NOTE | 2019-01-12 11:42 | NUR ---
RD ASSESSMENT & RECOMMENDATIONS SEE CARE ACTIVITY FOR COMPLETE ASSESSMENT DAILY ESTIMATED NEEDS: Needs based on wound, underweight/ 59kg 30-35 kcals/kg 1137-8012 total kcals 1.25-1.5 g protein/kg 74-89g g total protein 25-30 mL/kg 5753-7048 total fluid mLs NUTRITION DIAGNOSIS: 1) Increased kcal and protein needs R/T wound healing and for wt gain as evidenced by h/o right ankle chronic open wound, pt is est 71% IBW w/ underweight BMI per guidelines, currently w/ poor po intake.(UPDATED) 2) Altered nutrition related lab values R/T clinical condition, CHF as evidenced by elev K (5.4-> now wnl), elev BNP (1046-> 558). CURRENT DIET:REGULAR DIET RECOMMENDATIONS: W/ poor po: REGULAR DIET + double Protein portions/ texture as tolerated ADDITIONAL RECOMMENDATIONS: - RE-calibrate bed scale for accurate CBW - Weekly wt monitoring given underweight status - Snacks TID in between meals + Ensure Enlive TID w/ meals - Wound healing: MVI w/ min x 1, Vit C 500mg QD, Nilson 1pkt BID - Monitor K, need for diet restriction - Monitor BGs closely while solumedrol- now off (bg wnl) * CONSULT RD IF NON ORAL FEEDS ARE PART OF POC D/T POOR PO *
[2019-01-12 12:00] VITALS: BP 124/71
--- NOTE | 2019-01-12 12:42 | Diagnostic Imaging Report ---
Indication: Cough Technique: One view of the chest Comparison: January 05, 2019 Findings: Bilateral basilar consolidation appears minimally improved but persistent, worse on the left than on the right. Patchy airspace opacities in the right upper lobe persist, unchanged. There is probably a small amount of pleural fluid on the left, unchanged. Normal heart size. Evidence of prior CABG. Lungs are hyperinflated Impression: Minimally improved but persistent bilateral basilar consolidation, left greater than right, over 7 days. Persistent right upper lobe patchy infiltrates Stable small left pleural effusion.
--- NOTE | 2019-01-12 12:53 | General Progress Note ---
Assessment/Plan Problem List: (1) MDD (major depressive disorder), recurrent episode ICD Codes: F33.9 - Major depressive disorder, recurrent, unspecified SNOMED: 441203710 Assessment/Plan remeron 45mg po qhs provided ro/st Subjective 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: Reports: anxiety, depressed, emotional problems Allergies: Coded Allergies: EGG (Verified Allergy, Unknown, 09/28/18) MEPERIDINE (Verified Allergy, Unknown, 09/28/18) MORPHINE (Verified Allergy, Unknown, 09/28/18) NITROGLYCERIN (Verified Allergy, Unknown, hives, 09/28/18) Subjective the pt is more depressed the pt co pain the pt stated that he is not getting along with his Objective Last 24 Hour Vital Signs Date Time Temp Pulse Resp B/P (MAP) Pulse Ox O2 Delivery O2 Flow Rate FiO2 01/12/19 12:02 102 16 100 Nasal Cannula 2.0 28 01/12/19 11:44 92 16 98 Nasal Cannula 2.0 28 01/12/19 10:44 98.3 01/12/19 10:07 Nasal Cannula 2.0 28 01/12/19 10:07 Nasal Cannula 2.0 28 01/12/19 09:00 Room Air 01/12/19 08:48 101 126/63 01/12/19 08:00 98.3 91 18 120/68 (85) 01/12/19 07:15 101 16 99 Nasal Cannula 2.0 28 01/12/19 07:07 103 16 97 Nasal Cannula 2.0 28 01/12/19 07:07 Nasal Cannula 2.0 28 01/12/19 07:07 97 Nasal Cannula 2.0 28 01/12/19 04:00 98.1 93 17 126/63 (84) 01/11/19 23:10 99.1 99 18 134/72 (92) 92 01/11/19 21:39 99 18 100 Room Air 21 01/11/19 21:30 98 18 96 Room Air 21 01/11/19 21:00 Room Air 01/11/19 20:00 98.1 107 16 135/62 (86) 93 01/11/19 20:00 99 18 99 Room Air 21 01/11/19 19:58 Room Air 21 01/11/19 19:57 98 Room Air 21 01/11/19 19:50 97 18 97 Room Air 21 01/11/19 16:00 98.1 105 16 122/66 (84) 93 01/11/19 14:30 105 16 98 Room Air 21 01/11/19 14:20 103 18 96 Room Air 21 01/11/19 13:16 98.2 Intake and Output 01/11/19 01/12/19 19:00 07:00 Intake Total 365 ml Output Total 200 ml Balance 365 ml -200 ml Intake Oral 365 ml Output Urine Total 200 ml # Voids 1 Laboratory Tests 01/12/19 11:05: Vancomycin Level Trough 9.3 Height (Feet): 6 Height (Inches): 1.00 Weight (Pounds): 125 General Appearance: no apparent distress, alert, cachetic Neurologic: oriented x 3, responsive, depressed affect Rachael Buckley MD Jan 12, 2019 12:53
--- NOTE | 2019-01-12 13:06 | Infectious Diseases Prog Note ---
Assessment/Plan Assessment/Plan 68 yo male with PMHx of COPD and CHF who presented to the ED on 12/21/18 with CP , SOB, N/V but no diarrhea. Sepsis- 2ry to PNA, s/p rx Leukocytosis, SP -01/12 CXR: Minimally improved but persistent bilateral basilar consolidation , left greater than right, over 7 days. Persistent right upper lobe patchy infiltrates Stable small left pleural effusion. -01/05 CXR: Left basilar infiltrate, likely pneumonia. More questionable right infrahilar infiltrate. Probable left pleural effusion. Possible mild congestive changes 2/10 u/a neg -influenza sc neg Fever, SP COPD Exacerbation -12/28 CXR: Slightly increasing interstitial markings bilaterally may be reflective developing mild interstitial edema or pneumonitis. Correlate clinically S/P Tx with Abx and Steroids Right ankle ulcers Do not appear to be infected. N/V - Resolved CHF HTN Hx of CAD - s/p CABG Plan - Continue to monitor off abx -01/10 SP IV Vancomycin #8 -01/09 SP Cefepime #5 -01/05 SP Ceftriaxone #3 - 12/25/18 S/P Zosyn #4 -Cdiff if diarrhea -aspiration precautions -wound care Thank you for this consult. We will continue to follow the patient during this hospitalization. Subjective Allergies: Coded Allergies: EGG (Verified Allergy, Unknown, 09/28/18) MEPERIDINE (Verified Allergy, Unknown, 09/28/18) MORPHINE (Verified Allergy, Unknown, 09/28/18) NITROGLYCERIN (Verified Allergy, Unknown, hives, 09/28/18) Subjective Afebrile in >72hrs no leukocytosis at 2lNC feeling better off abx now Objective Vital Signs Last 24 Hour Vital Signs Date Time Temp Pulse Resp B/P (MAP) Pulse Ox O2 Delivery O2 Flow Rate FiO2 01/12/19 12:02 102 16 100 Nasal Cannula 2.0 28 01/12/19 11:44 92 16 98 Nasal Cannula 2.0 28 01/12/19 10:44 98.3 01/12/19 10:07 Nasal Cannula 2.0 28 01/12/19 10:07 Nasal Cannula 2.0 28 01/12/19 09:00 Room Air 01/12/19 08:48 101 126/63 01/12/19 08:00 98.3 91 18 120/68 (85) 01/12/19 07:15 101 16 99 Nasal Cannula 2.0 28 01/12/19 07:07 103 16 97 Nasal Cannula 2.0 28 01/12/19 07:07 Nasal Cannula 2.0 28 01/12/19 07:07 97 Nasal Cannula 2.0 28 01/12/19 04:00 98.1 93 17 126/63 (84) 01/11/19 23:10 99.1 99 18 134/72 (92) 92 01/11/19 21:39 99 18 100 Room Air 21 01/11/19 21:30 98 18 96 Room Air 21 01/11/19 21:00 Room Air 01/11/19 20:00 98.1 107 16 135/62 (86) 93 01/11/19 20:00 99 18 99 Room Air 21 01/11/19 19:58 Room Air 21 01/11/19 19:57 98 Room Air 21 01/11/19 19:50 97 18 97 Room Air 21 01/11/19 16:00 98.1 105 16 122/66 (84) 93 01/11/19 14:30 105 16 98 Room Air 21 01/11/19 14:20 103 18 96 Room Air 21 01/11/19 13:16 98.2 Height (Feet): 6 Height (Inches): 1.00 Weight (Pounds): 125 Objective Gen: NAD, well appearing, alert HEENT: NCAT, MMM, EOMI, PERRL, No Oral lesion, no scleral icterus NECK: full range of motion, supple, no meningismus, No LAD, No JVD LUNGS: CTAB, No W/C, No Accessory muscle use CARDS: RRR, S1, S2, No M/R/G, ABD: Soft, NT, ND, No R/G, + BS, No HSM, No Masses : Deferred Ext: right ankle with two shallow ulcers, No surrounding erythema no purulence , Pulses 2+ B/L (DP, Rad): NEURO: A/O x 4, Strength and Sensation Grossly intact PSYCH: Mood/affect normal SKIN: Warm/dry, No rashes Laboratory Tests Test 01/12/19 11:05 Vancomycin Level Trough 9.3 ug/mL (5.0-12.0) Current Medications Medications (Trade) Dose Ordered Sig/Aminata Route PRN Reason Start Time Stop Time Status Last Admin Dose Admin Acetaminophen (Tylenol) 650 mg Q6H PRN ORAL Mild Pain/Temp > 100.5 01/11/19 15:27 02/10/19 15:26 Acetylcysteine (Mucomyst) 100 mg TIDRT N 01/11/19 19:00 01/26/19 12:59 01/12/19 11:42 Amlodipine Besylate (Norvasc) 10 mg DAILY ORAL 01/12/19 09:00 01/21/19 08:59 01/12/19 08:48 Budesonide (Pulmicort) 0.25 mg Q12HRT N 01/11/19 22:00 02/02/19 21:59 01/11/19 21:37 Clopidogrel Bisulfate (Plavix) 75 mg DAILY ORAL 01/12/19 09:00 01/21/19 08:59 01/12/19 08:48 Dextrose (Dextrose 50%) 25 ml Q30M PRN IV Hypoglycemia 01/11/19 15:30 01/21/19 07:29 Dextrose (Dextrose 50%) 50 ml Q30M PRN IV Hypoglycemia 01/11/19 15:30 01/21/19 07:29 Heparin Sodium (Porcine) (Heparin 5000 units/ml) 5,000 units EVERY 12 HOURS SUBQ 01/11/19 21:00 01/21/19 08:59 Hydromorphone HCl (Dilaudid) 3 mg Q3H PRN IVP Severe Pain (Pain Scale 7-10) 01/11/19 15:27 01/14/19 15:26 01/12/19 10:14 Levalbuterol HCl (Xopenex) 1.25 mg Q4HRT PRN HHN Shortness of Breath 01/11/19 19:00 01/13/19 20:29 01/12/19 11:42 Levetiracetam (Keppra) 250 mg Q12HR ORAL 01/11/19 21:00 01/30/19 08:59 01/12/19 08:48 Mirtazapine (Remeron) 45 mg BEDTIME ORAL 01/11/19 21:00 02/09/19 20:59 01/11/19 20:14 Ondansetron HCl (Zofran) 4 mg Q6H PRN IVP Nausea & Vomiting 2/18/19 15:30 01/21/19 15:29 Jessica Parry M.D. Jan 12, 2019 13:06
--- NOTE | 2019-01-12 14:26 | Pulmonology Progress Note ---
Assessment/Plan Problems: (1) Nosocomial pneumonia (2) COPD exacerbation (3) Acute bronchitis (4) Hypothyroidism (5) CAD (coronary artery disease) (6) Severe protein-calorie malnutrition (7) Chronic ulcer of right leg Assessment/Plan no new complains feeling better but lower than yesterday no new complains renal f/u respiratory treatment wound care doing better Subjective ROS Limited/Unobtainable: No Constitutional: Reports: no symptoms HEENT: Repors: no symptoms Allergies: Coded Allergies: EGG (Verified Allergy, Unknown, 09/28/18) MEPERIDINE (Verified Allergy, Unknown, 09/28/18) MORPHINE (Verified Allergy, Unknown, 09/28/18) NITROGLYCERIN (Verified Allergy, Unknown, hives, 09/28/18) Objective Last 24 Hour Vital Signs Date Time Temp Pulse Resp B/P (MAP) Pulse Ox O2 Delivery O2 Flow Rate FiO2 01/12/19 12:02 102 16 100 Nasal Cannula 2.0 28 01/12/19 12:00 98.1 88 18 124/71 (88) 97 01/12/19 11:44 92 16 98 Nasal Cannula 2.0 28 01/12/19 10:44 98.3 01/12/19 10:07 Nasal Cannula 2.0 28 01/12/19 10:07 Nasal Cannula 2.0 28 01/12/19 09:00 Room Air 01/12/19 08:48 101 126/63 01/12/19 08:00 98.3 91 18 120/68 (85) 01/12/19 07:15 101 16 99 Nasal Cannula 2.0 28 01/12/19 07:07 103 16 97 Nasal Cannula 2.0 28 01/12/19 07:07 Nasal Cannula 2.0 28 01/12/19 07:07 97 Nasal Cannula 2.0 28 01/12/19 04:00 98.1 93 17 126/63 (84) 01/11/19 23:10 99.1 99 18 134/72 (92) 92 01/11/19 21:39 99 18 100 Room Air 21 01/11/19 21:30 98 18 96 Room Air 21 01/11/19 21:00 Room Air 01/11/19 20:00 98.1 107 16 135/62 (86) 93 01/11/19 20:00 99 18 99 Room Air 21 01/11/19 19:58 Room Air 21 01/11/19 19:57 98 Room Air 21 01/11/19 19:50 97 18 97 Room Air 21 01/11/19 16:00 98.1 105 16 122/66 (84) 93 01/11/19 14:30 105 16 98 Room Air 21 Intake and Output 01/11/19 01/12/19 19:00 07:00 Intake Total 365 ml Output Total 200 ml Balance 365 ml -200 ml Intake Oral 365 ml Output Urine Total 200 ml # Voids 1 Objective General Appearance: cachectic HEENT: normocephalic Respiratory/Chest: chest wall non-tender, lungs clear, decrease breath sounds Cardiovascular: normal peripheral pulses, normal rate Abdomen: normal bowel sounds, soft, non tender Extremities: no cyanosis Skin: no rash Laboratory Tests 01/12/19 11:05: Vancomycin Level Trough 9.3 Current Medications Medications (Trade) Dose Ordered Sig/Aminata Route PRN Reason Start Time Stop Time Status Last Admin Dose Admin Acetaminophen (Tylenol) 650 mg Q6H PRN ORAL Mild Pain/Temp > 100.5 01/11/19 15:27 02/10/19 15:26 Acetylcysteine (Mucomyst) 100 mg TIDRT N 01/11/19 19:00 01/26/19 12:59 01/12/19 11:42 Amlodipine Besylate (Norvasc) 10 mg DAILY ORAL 01/12/19 09:00 01/21/19 08:59 01/12/19 08:48 Budesonide (Pulmicort) 0.25 mg Q12HRT N 01/11/19 22:00 02/02/19 21:59 01/11/19 21:37 Clopidogrel Bisulfate (Plavix) 75 mg DAILY ORAL 01/12/19 09:00 01/21/19 08:59 01/12/19 08:48 Dextrose (Dextrose 50%) 25 ml Q30M PRN IV Hypoglycemia 01/11/19 15:30 01/21/19 07:29 Dextrose (Dextrose 50%) 50 ml Q30M PRN IV Hypoglycemia 01/11/19 15:30 01/21/19 07:29 Heparin Sodium (Porcine) (Heparin 5000 units/ml) 5,000 units EVERY 12 HOURS SUBQ 01/11/19 21:00 01/21/19 08:59 Hydromorphone HCl (Dilaudid) 3 mg Q3H PRN IVP Severe Pain (Pain Scale 7-10) 01/11/19 15:27 01/14/19 15:26 01/12/19 13:12 Levalbuterol HCl (Xopenex) 1.25 mg Q4HRT PRN HHN Shortness of Breath 01/11/19 19:00 01/13/19 20:29 01/12/19 11:42 Levetiracetam (Keppra) 250 mg Q12HR ORAL 01/11/19 21:00 01/30/19 08:59 01/12/19 08:48 Mirtazapine (Remeron) 45 mg BEDTIME ORAL 01/11/19 21:00 02/09/19 20:59 01/11/19 20:14 Ondansetron HCl (Zofran) 4 mg Q6H PRN IVP Nausea & Vomiting 01/11/19 15:30 01/21/19 15:29 Jessie Magana MD Jan 12, 2019 14:26
--- NOTE | 2019-01-12 14:28 | General Progress Note ---
Assessment/Plan Problem List: (1) Acute and chronic respiratory failure ICD Codes: J96.20 - Acute and chronic respiratory failure, unspecified whether with hypoxia or hypercapnia SNOMED: 03219568 (2) Chest pain ICD Codes: R07.9 - Chest pain, unspecified SNOMED: 73639106 Qualifiers: Qualified Codes: R07.9 - Chest pain, unspecified (3) HTN (hypertension) ICD Codes: I10 - Hypertension SNOMED: 38335137 (4) COPD exacerbation ICD Codes: J44.1 - Obstructive chronic bronchitis with exacerbation SNOMED: 036345332 (5) Acute CHF (congestive heart failure) ICD Codes: I50.9 - Heart failure, unspecified SNOMED: 28529678 Qualifiers: Qualified Codes: I50.9 - Heart failure, unspecified Status: stable, progressing Assessment/Plan o2 pulmt x pt diet cbc bmp am dc to snf if clear Subjective Constitutional: Reports: weakness Allergies: Coded Allergies: EGG (Verified Allergy, Unknown, 09/28/18) MEPERIDINE (Verified Allergy, Unknown, 09/28/18) MORPHINE (Verified Allergy, Unknown, 09/28/18) NITROGLYCERIN (Verified Allergy, Unknown, hives, 09/28/18) All Systems: reviewed and negative except above Subjective o2nc sleepy in bed Objective Last 24 Hour Vital Signs Date Time Temp Pulse Resp B/P (MAP) Pulse Ox O2 Delivery O2 Flow Rate FiO2 01/12/19 12:02 102 16 100 Nasal Cannula 2.0 28 01/12/19 12:00 98.1 88 18 124/71 (88) 97 01/12/19 11:44 92 16 98 Nasal Cannula 2.0 28 01/12/19 10:44 98.3 01/12/19 10:07 Nasal Cannula 2.0 28 01/12/19 10:07 Nasal Cannula 2.0 28 01/12/19 09:00 Room Air 01/12/19 08:48 101 126/63 01/12/19 08:00 98.3 91 18 120/68 (85) 01/12/19 07:15 101 16 99 Nasal Cannula 2.0 28 01/12/19 07:07 103 16 97 Nasal Cannula 2.0 28 01/12/19 07:07 Nasal Cannula 2.0 28 01/12/19 07:07 97 Nasal Cannula 2.0 28 01/12/19 04:00 98.1 93 17 126/63 (84) 01/11/19 23:10 99.1 99 18 134/72 (92) 92 01/11/19 21:39 99 18 100 Room Air 21 01/11/19 21:30 98 18 96 Room Air 21 01/11/19 21:00 Room Air 01/11/19 20:00 98.1 107 16 135/62 (86) 93 01/11/19 20:00 99 18 99 Room Air 21 01/11/19 19:58 Room Air 21 01/11/19 19:57 98 Room Air 21 01/11/19 19:50 97 18 97 Room Air 21 01/11/19 16:00 98.1 105 16 122/66 (84) 93 01/11/19 14:30 105 16 98 Room Air 21 Intake and Output 01/11/19 01/12/19 19:00 07:00 Intake Total 365 ml Output Total 200 ml Balance 365 ml -200 ml Intake Oral 365 ml Output Urine Total 200 ml # Voids 1 Laboratory Tests 01/12/19 11:05: Vancomycin Level Trough 9.3 Height (Feet): 6 Height (Inches): 1.00 Weight (Pounds): 125 General Appearance: lethargic EENT: normal ENT inspection Neck: normal alignment Cardiovascular: normal peripheral pulses, normal rate, regular rhythm Respiratory/Chest: chest wall non-tender, lungs clear, normal breath sounds Abdomen: normal bowel sounds, non tender, soft Extremities: normal inspection Edema: no edema noted Arm (L), no edema noted Arm (R), no edema noted Leg (L), no edema noted Leg (R), no edema noted Pedal (L), no edema noted Pedal (R), no edema noted Generalized Neurologic: responsive, motor weakness Skin: normal pigmentation, warm/dry Fabio Tracey DO Jan 12, 2019 14:28
[2019-01-12 16:00] VITALS: BP 129/80
--- NOTE | 2019-01-12 19:30 | NUR ---
NURSE NOTES: Received a report from Ashley Otoole RN. Pt is in stable condition. AAOX4. Able to make needs known. No c/o pain/discomfort. IV site is patent and intact. Bed in lowest position. Bed alarm is on. Call light within reach. Will continue to monitor.
--- NOTE | 2019-01-12 19:33 | NUR ---
HAND-OFF: Report given to Whit WHITE.
[2019-01-12 20:00] VITALS: BP 127/68
[2019-01-13] VITALS: BP 137/68
[2019-01-13 04:00] VITALS: BP 144/63
[2019-01-13 06:50] LABS: BASOPHILS % (AUTO) 1.8 % (0.0-2.0); EOSINOPHILS % (AUTO) 9.7 % (0.0-3.0); HEMATOCRIT 35.4 % (42.0-52.0); HEMOGLOBIN 10.6 G/DL (14.2-18.0); LYMPHOCYTES % (AUTO) 29.9 % (20.0-45.0); MEAN CORPUSCULAR VOLUME 81 FL (80-99); MONOCYTES % (AUTO) 12.7 % (1.0-10.0); NEUTROPHILS % (AUTO) 45.9 % (45.0-75.0); PLATELET COUNT 476 K/UL (150-450); RED BLOOD COUNT 4.35 M/UL (4.70-6.10); WHITE BLOOD COUNT 7.7 K/UL (4.8-10.8)
--- NOTE | 2019-01-13 07:26 | NUR ---
HAND-OFF: Report given to CHRISTOPHER Lamb.
[2019-01-13 07:30] LABS: ALANINE AMINOTRANSFERASE 7 U/L (12-78); ALBUMIN 1.8 G/DL (3.4-5.0); ALBUMIN/GLOBULIN RATIO 0.3 (1.0-2.7); ALKALINE PHOSPHATASE 88 U/L (46-116); ANION GAP 8 mmol/L (5-15); ASPARTATE AMINO TRANSFERASE 17 U/L (15-37); BILIRUBIN,TOTAL 0.2 MG/DL (0.2-1.0); BLOOD UREA NITROGEN 8 mg/dL (7-18); CALCIUM 8.4 MG/DL (8.5-10.1); CARBON DIOXIDE 27 MMOL/L (21-32); CHLORIDE 105 MMOL/L (98-107); CREATININE 1.3 MG/DL (0.55-1.30); PHOSPHORUS 3.3 MG/DL (2.5-4.9); POTASSIUM 4.8 MMOL/L (3.5-5.1); SODIUM 140 MMOL/L (136-145)
--- NOTE | 2019-01-13 07:45 | NUR ---
NURSE NOTES: Received patient on bed, asleep. IV site intact and patent. Bed in low and locked position, call light in reach. no signs of respiratory distress or pain. Room board updated, will continue to monitor.
[2019-01-13 08:00] VITALS: BP 139/76
[2019-01-13] MEDS: Heparin 5000 units/ml inj SUBQ SCH ×2 (08:51→21:00)
--- NOTE | 2019-01-13 08:56 | NUR ---
REHAB MED PT NOTE PATIENT UNAVAILABLE AT THIS TIME. WILL REATTEMPT ABLE.
[2019-01-13] MEDS: Budesonide HHN 0.25mg/2ml ud HHN SCH ×2 (09:23→21:49)
--- NOTE | 2019-01-13 11:05 | NUR ---
*-*INSURANCE *-* ALL CLINICALS AND REVIEWS HAVE BEEN FAXED TO: [facility] SAL/RAINER NCM: MARQUES MURRAY P- [phone] F- [phone]
--- NOTE | 2019-01-13 11:25 | NUR ---
*-* LATE ENTRY INSURANCE *-* ALL CLINICALS WERE SENT VIA EMAIL TO: [email or web address]
[2019-01-13 12:00] VITALS: BP 133/92
--- NOTE | 2019-01-13 14:40 | General Progress Note ---
Assessment/Plan Problem List: (1) Acute and chronic respiratory failure ICD Codes: J96.20 - Acute and chronic respiratory failure, unspecified whether with hypoxia or hypercapnia SNOMED: 71890705 (2) Chest pain ICD Codes: R07.9 - Chest pain, unspecified SNOMED: 08508329 Qualifiers: Qualified Codes: R07.9 - Chest pain, unspecified (3) HTN (hypertension) ICD Codes: I10 - Hypertension SNOMED: 31267225 (4) COPD exacerbation ICD Codes: J44.1 - Obstructive chronic bronchitis with exacerbation SNOMED: 298439856 (5) Acute CHF (congestive heart failure) ICD Codes: I50.9 - Heart failure, unspecified SNOMED: 60526818 Qualifiers: Qualified Codes: I50.9 - Heart failure, unspecified Status: stable, progressing Assessment/Plan o2 pulmt x pt diet cbc bmp am dc to snf if clear Subjective Constitutional: Reports: weakness Allergies: Coded Allergies: EGG (Verified Allergy, Unknown, 09/28/18) MEPERIDINE (Verified Allergy, Unknown, 09/28/18) MORPHINE (Verified Allergy, Unknown, 09/28/18) NITROGLYCERIN (Verified Allergy, Unknown, hives, 09/28/18) All Systems: reviewed and negative except above Subjective o2nc sleepy in bed Objective Last 24 Hour Vital Signs Date Time Temp Pulse Resp B/P (MAP) Pulse Ox O2 Delivery O2 Flow Rate FiO2 01/13/19 12:30 Nasal Cannula 01/13/19 12:30 Nasal Cannula 01/13/19 12:00 98.0 62 19 133/92 (106) 97 01/13/19 09:23 Nasal Cannula 2.0 28 01/13/19 09:23 Nasal Cannula 2.0 28 01/13/19 09:00 Room Air 01/13/19 08:51 66 139/76 01/13/19 08:00 97.3 66 19 139/76 (97) 97 01/13/19 07:22 Nasal Cannula 2.0 28 01/13/19 07:21 95 Nasal Cannula 2.0 28 01/13/19 07:21 Nasal Cannula 2.0 28 01/13/19 07:21 Nasal Cannula 2.0 28 01/13/19 04:00 98.3 96 17 144/63 (90) 96 01/13/19 00:00 98.9 104 18 137/68 (91) 95 01/13/19 00:00 98.9 01/12/19 22:38 103 18 99 Nasal Cannula 2.0 28 01/12/19 22:26 102 18 96 Nasal Cannula 2.0 28 01/12/19 21:27 98.9 01/12/19 21:00 Room Air 01/12/19 20:00 100.4 104 18 127/68 (87) 93 01/12/19 19:10 Room Air 21 01/12/19 19:09 Room Air 21 01/12/19 19:09 89 Room Air 21 01/12/19 19:08 102 16 89 Room Air 21 01/12/19 16:00 98.6 82 18 129/80 (96) 98 Intake and Output 01/12/19 01/13/19 19:00 07:00 Intake Total 240 ml Output Total 600 ml Balance -360 ml Intake Oral 240 ml Output Urine Total 600 ml # Voids 6 Laboratory Tests 01/13/19 05:35: White Blood Count 7.7, Red Blood Count 4.35L, Hemoglobin 10.6L, Hematocrit 35.4L , Mean Corpuscular Volume 81, Mean Corpuscular Hemoglobin 24.3L, Mean Corpuscular Hemoglobin Concent 29.9L, Red Cell Distribution Width 16.0H, Platelet Count 476H, Mean Platelet Volume 5.9L, Neutrophils (%) (Auto) 45.9, Lymphocytes (%) (Auto) 29.9, Monocytes (%) (Auto) 12.7H, Eosinophils (%) (Auto) 9.7H, Basophils (%) (Auto) 1.8, Erythrocyte Sedimentation Rate 58H, Sodium Level 140, Potassium Level 4.8, Chloride Level 105, Carbon Dioxide Level 27, Anion Gap 8, Blood Urea Nitrogen 8, Creatinine 1.3, Estimat Glomerular Filtration Rate > 60, Glucose Level 84, Calcium Level 8.4L, Phosphorus Level 3.3 , Magnesium Level 1.8, Total Bilirubin 0.2, Aspartate Amino Transf (AST/SGOT) 17 , Alanine Aminotransferase (ALT/SGPT) 7L, Alkaline Phosphatase 88, C-Reactive Protein, Quantitative 14.9H, Total Protein 8.7H, Albumin 1.8L, Globulin 6.9, Albumin/Globulin Ratio 0.3L Height (Feet): 6 Height (Inches): 1.00 Weight (Pounds): 125 General Appearance: lethargic EENT: normal ENT inspection Neck: normal alignment Cardiovascular: normal peripheral pulses, normal rate, regular rhythm Respiratory/Chest: chest wall non-tender, decreased breath sounds Abdomen: normal bowel sounds, non tender, soft Extremities: normal inspection Edema: no edema noted Arm (L), no edema noted Arm (R), no edema noted Leg (L), no edema noted Leg (R), no edema noted Pedal (L), no edema noted Pedal (R), no edema noted Generalized Neurologic: motor weakness Skin: normal pigmentation, warm/dry Fabio Tracey DO Jan 13, 2019 14:40
[2019-01-13 16:00] VITALS: BP 126/70
--- NOTE | 2019-01-13 16:40 | NUR ---
Social Service Note Patient provided his 's phone number Rebeka Ring [phone]. SW spoke with patient's to assess home situation. states patient is not homeless and has not been kick out of their home. has no idea why patient has stated this and why he has removed his belongings from their home. states patient had his [id number] come remove his belongings and bring them to the hospital when she wasn't home. states patient has shown decline with PO intake and ambulation which is why she brought him to the hospital. states they live close to [place] and that [facility] has always been patient's preferred hospital. Patient was at home under [facility] as a full code. Patient has O2 at home however states patient refuses to use it. Patient also has a w/c. states besides herself, patient has a dgt and two grandchildren 14 and 16 years old in the home who assist with patient care. states upon discharge from SNF patient is able to return home. ASHLEE discussed with CM. would like to be notified of dc placement upon discharge. Will continue to monitor and assist as needed.
--- NOTE | 2019-01-13 16:57 | Infectious Diseases Prog Note ---
Assessment/Plan Assessment/Plan 68 yo male with PMHx of COPD and CHF who presented to the ED on 12/21/18 with CP , SOB, N/V but no diarrhea. Sepsis- 2ry to PNA, s/p rx Leukocytosis, SP -01/12 CXR: Minimally improved but persistent bilateral basilar consolidation , left greater than right, over 7 days. Persistent right upper lobe patchy infiltrates Stable small left pleural effusion. -01/05 CXR: Left basilar infiltrate, likely pneumonia. More questionable right infrahilar infiltrate. Probable left pleural effusion. Possible mild congestive changes / u/a neg -influenza sc neg Fever, ;recurrent low grade COPD Exacerbation -12/28 CXR: Slightly increasing interstitial markings bilaterally may be reflective developing mild interstitial edema or pneumonitis. Correlate clinically S/P Tx with Abx and Steroids Right ankle ulcers Do not appear to be infected. N/V - Resolved CHF HTN Hx of CAD - s/p CABG Plan - Continue to monitor off abx unless ongoign fevers, increasing WBC and/or HD instability -01/10 SP IV Vancomycin #8 -01/09 SP Cefepime #5 -01/05 SP Ceftriaxone #3 - 12/25/18 S/P Zosyn #4 -Cdiff if diarrhea -aspiration precautions -wound care Thank you for this consult. We will continue to follow the patient during this hospitalization. Subjective Allergies: Coded Allergies: EGG (Verified Allergy, Unknown, 09/28/18) MEPERIDINE (Verified Allergy, Unknown, 09/28/18) MORPHINE (Verified Allergy, Unknown, 09/28/18) NITROGLYCERIN (Verified Allergy, Unknown, hives, 09/28/18) Subjective Tm 100.4; afebrile >12hr at 2l NC Objective Vital Signs Last 24 Hour Vital Signs Date Time Temp Pulse Resp B/P (MAP) Pulse Ox O2 Delivery O2 Flow Rate FiO2 01/13/19 12:30 Nasal Cannula 01/13/19 12:30 Nasal Cannula 01/13/19 12:00 98.0 62 19 133/92 (106) 97 01/13/19 09:23 Nasal Cannula 2.0 28 01/13/19 09:23 Nasal Cannula 2.0 28 01/13/19 09:00 Room Air 01/13/19 08:51 66 139/76 01/13/19 08:00 97.3 66 19 139/76 (97) 97 01/13/19 07:22 Nasal Cannula 2.0 28 01/13/19 07:21 95 Nasal Cannula 2.0 28 01/13/19 07:21 Nasal Cannula 2.0 28 01/13/19 07:21 Nasal Cannula 2.0 28 01/13/19 04:00 98.3 96 17 144/63 (90) 96 01/13/19 00:00 98.9 104 18 137/68 (91) 95 01/13/19 00:00 98.9 01/12/19 22:38 103 18 99 Nasal Cannula 2.0 28 01/12/19 22:26 102 18 96 Nasal Cannula 2.0 28 01/12/19 21:27 98.9 01/12/19 21:00 Room Air 01/12/19 20:00 100.4 104 18 127/68 (87) 93 01/12/19 19:10 Room Air 21 01/12/19 19:09 Room Air 21 01/12/19 19:09 89 Room Air 21 01/12/19 19:08 102 16 89 Room Air 21 Height (Feet): 6 Height (Inches): 1.00 Weight (Pounds): 125 Objective Gen: NAD, well appearing, alert HEENT: NCAT, MMM, EOMI, PERRL, No Oral lesion, no scleral icterus NECK: full range of motion, supple, no meningismus, No LAD, No JVD LUNGS: CTAB, No W/C, No Accessory muscle use CARDS: RRR, S1, S2, No M/R/G, ABD: Soft, NT, ND, No R/G, + BS, No HSM, No Masses : Deferred Ext: right ankle with two shallow ulcers, No surrounding erythema no purulence , Pulses 2+ B/L (DP, Rad): NEURO: A/O x 4, Strength and Sensation Grossly intact PSYCH: Mood/affect normal SKIN: Warm/dry, No rashes Laboratory Tests Test 01/13/19 05:35 White Blood Count 7.7 K/UL (4.8-10.8) Red Blood Count 4.35 M/UL (4.70-6.10) L Hemoglobin 10.6 G/DL (14.2-18.0) L Hematocrit 35.4 % (42.0-52.0) L Mean Corpuscular Volume 81 FL (80-99) Mean Corpuscular Hemoglobin 24.3 PG (27.0-31.0) L Mean Corpuscular Hemoglobin Concent 29.9 G/DL (32.0-36.0) L Red Cell Distribution Width 16.0 % (11.6-14.8) H Platelet Count 476 K/UL (150-450) H Mean Platelet Volume 5.9 FL (6.5-10.1) L Neutrophils (%) (Auto) 45.9 % (45.0-75.0) Lymphocytes (%) (Auto) 29.9 % (20.0-45.0) Monocytes (%) (Auto) 12.7 % (1.0-10.0) H Eosinophils (%) (Auto) 9.7 % (0.0-3.0) H Basophils (%) (Auto) 1.8 % (0.0-2.0) Erythrocyte Sedimentation Rate 58 MM/HR (0-20) H Sodium Level 140 MMOL/L (136-145) Potassium Level 4.8 MMOL/L (3.5-5.1) Chloride Level 105 MMOL/L (98-107) Carbon Dioxide Level 27 MMOL/L (21-32) Anion Gap 8 mmol/L (5-15) Blood Urea Nitrogen 8 mg/dL (7-18) Creatinine 1.3 MG/DL (0.55-1.30) Estimat Glomerular Filtration Rate > 60 mL/min (>60) Glucose Level 84 MG/DL (74-106) Calcium Level 8.4 MG/DL (8.5-10.1) L Phosphorus Level 3.3 MG/DL (2.5-4.9) Magnesium Level 1.8 MG/DL (1.8-2.4) Total Bilirubin 0.2 MG/DL (0.2-1.0) Aspartate Amino Transf (AST/SGOT) 17 U/L (15-37) Alanine Aminotransferase (ALT/SGPT) 7 U/L (12-78) L Alkaline Phosphatase 88 U/L (46-116) C-Reactive Protein, Quantitative 14.9 mg/dL (0.00-0.90) H Total Protein 8.7 G/DL (6.4-8.2) H Albumin 1.8 G/DL (3.4-5.0) L Globulin 6.9 g/dL Albumin/Globulin Ratio 0.3 (1.0-2.7) L Current Medications Medications (Trade) Dose Ordered Sig/Aminata Route PRN Reason Start Time Stop Time Status Last Admin Dose Admin Acetaminophen (Tylenol) 650 mg Q6H PRN ORAL Mild Pain/Temp > 100.5 01/11/19 15:27 02/10/19 15:26 01/12/19 20:57 Acetylcysteine (Mucomyst) 100 mg TIDRT HHN 01/11/19 19:00 01/26/19 12:59 01/12/19 11:42 Amlodipine Besylate (Norvasc) 10 mg DAILY ORAL 01/12/19 09:00 01/21/19 08:59 01/13/19 08:51 Budesonide (Pulmicort) 0.25 mg Q12HRT HHN 01/11/19 22:00 02/02/19 21:59 01/12/19 22:26 Clopidogrel Bisulfate (Plavix) 75 mg DAILY ORAL 01/12/19 09:00 01/21/19 08:59 01/13/19 08:50 Dextrose (Dextrose 50%) 25 ml Q30M PRN IV Hypoglycemia 01/11/19 15:30 01/21/19 07:29 Dextrose (Dextrose 50%) 50 ml Q30M PRN IV Hypoglycemia 01/11/19 15:30 01/21/19 07:29 Heparin Sodium (Porcine) (Heparin 5000 units/ml) 5,000 units EVERY 12 HOURS SUBQ 01/11/19 21:00 01/21/19 08:59 Hydromorphone HCl (Dilaudid) 3 mg Q3H PRN IVP Severe Pain (Pain Scale 7-10) 01/11/19 15:27 01/14/19 15:26 01/13/19 15:53 Levalbuterol HCl (Xopenex) 1.25 mg Q4HRT PRN HHN Shortness of Breath 01/11/19 19:00 01/13/19 20:29 01/12/19 11:42 Levetiracetam (Keppra) 250 mg Q12HR ORAL 01/11/19 21:00 01/30/19 08:59 01/13/19 08:51 Mirtazapine (Remeron) 45 mg BEDTIME ORAL 01/11/19 21:00 02/09/19 20:59 01/12/19 20:56 Ondansetron HCl (Zofran) 4 mg Q6H PRN IVP Nausea & Vomiting 01/11/19 15:30 01/21/19 15:29 Jessica Parry M.D. Jan 13, 2019 16:57
--- NOTE | 2019-01-13 19:40 | NUR ---
NURSE NOTES: Notified Citlalli from pharmacy that [employer]itech froze and did not record admin of 1905 dilaudid administration. Waste was recorded properly in [employer] and comment also made in admin comment section.
--- NOTE | 2019-01-13 19:42 | NUR ---
HAND-OFF: Report given to CHRISTOPHER Fofana.
--- NOTE | 2019-01-13 19:44 | NUR ---
CASE MANAGEMENT: REVIEW SI: CHF EXACERBATION T 98.0 HR 62 RR 19 BP 133/92 SAT 97% NC/2L H/H 10.6/35.4 IS: NORVASC PO QD KEPPRA PO Q12HR PULMICORT HHN Q12HR MED/SURG STATUS DCP: PATIENT IS FROM HOME. PATIENT REFERRED TO [facility]
[2019-01-13 20:00] VITALS: BP 135/66
[2019-01-14] VITALS: BP 146/70
[2019-01-14 04:00] VITALS: BP 135/71
--- NOTE | 2019-01-14 07:00 | NUR ---
HAND-OFF: Report given to JORDAN WHITE.
[2019-01-14 08:00] VITALS: BP 147/72
[2019-01-14 08:00] LABS: BASOPHILS % (AUTO) 1.2 % (0.0-2.0); EOSINOPHILS % (AUTO) 7.1 % (0.0-3.0); HEMATOCRIT 36.7 % (42.0-52.0); HEMOGLOBIN 11.3 G/DL (14.2-18.0); LYMPHOCYTES % (AUTO) 30.3 % (20.0-45.0); MEAN CORPUSCULAR VOLUME 81 FL (80-99); MONOCYTES % (AUTO) 10.6 % (1.0-10.0); NEUTROPHILS % (AUTO) 50.8 % (45.0-75.0); PLATELET COUNT 534 K/UL (150-450); RED BLOOD COUNT 4.54 M/UL (4.70-6.10); RED CELL DISTRIBUTION WIDTH 16.4 % (11.6-14.8); WHITE BLOOD COUNT 8.7 K/UL (4.8-10.8)
[2019-01-14] MEDS: Heparin 5000 units/ml inj SUBQ SCH ×2 (08:59→20:29)
[2019-01-14 09:09] LABS: ANION GAP 13 mmol/L (5-15); BLOOD UREA NITROGEN 10 mg/dL (7-18); CALCIUM 8.6 MG/DL (8.5-10.1); CARBON DIOXIDE 22 MMOL/L (21-32); CHLORIDE 102 MMOL/L (98-107); CREATININE 1.4 MG/DL (0.55-1.30); POTASSIUM 4.4 MMOL/L (3.5-5.1); SODIUM 137 MMOL/L (136-145)
[2019-01-14] MEDS: Budesonide HHN 0.25mg/2ml ud HHN SCH (09:53)
[2019-01-14 12:00] VITALS: BP 126/74
--- NOTE | 2019-01-14 13:10 | NUR ---
REHAB MED PT NOTE PATIENT AT BASELINE LEVEL OF CARE, RECOMMEND SNF. DC INPATIENT PT, IF CHANGE IN MEDICAL FUNCTIONAL MOBILITY PLEASE RECONSULT, DC TO NURSING STAFF FOR COMFORT AND CARE.
[2019-01-14] MEDS: Levalbuterol Inh UD 1.25mg/0.5ml HHN PRN ×2 (13:20→20:56)
--- NOTE | 2019-01-14 13:37 | Pulmonology Progress Note ---
Assessment/Plan Problems: (1) Nosocomial pneumonia (2) COPD exacerbation (3) Acute bronchitis (4) Hypothyroidism (5) CAD (coronary artery disease) (6) Severe protein-calorie malnutrition (7) Chronic ulcer of right leg Assessment/Plan in better mood no new complains feeling better but lower than yesterday no new complains renal f/u respiratory treatment wound care doing better Subjective ROS Limited/Unobtainable: No Constitutional: Reports: no symptoms HEENT: Repors: no symptoms Respiratory: Reports: no symptoms Allergies: Coded Allergies: EGG (Verified Allergy, Unknown, 09/28/18) MEPERIDINE (Verified Allergy, Unknown, 09/28/18) MORPHINE (Verified Allergy, Unknown, 09/28/18) NITROGLYCERIN (Verified Allergy, Unknown, hives, 09/28/18) Objective Last 24 Hour Vital Signs Date Time Temp Pulse Resp B/P (MAP) Pulse Ox O2 Delivery O2 Flow Rate FiO2 01/14/19 12:00 97.1 105 18 126/74 (91) 95 01/14/19 10:38 98.2 01/14/19 10:00 116 18 98 Nasal Cannula 2.0 28 01/14/19 09:53 112 18 90 Room Air 01/14/19 09:00 Room Air 01/14/19 08:59 107 147/72 01/14/19 08:00 98.2 107 20 147/72 (97) 93 01/14/19 07:58 Nasal Cannula 2.0 28 01/14/19 07:58 92 Nasal Cannula 2.0 28 01/14/19 07:58 Nasal Cannula 2.0 28 01/14/19 07:58 Nasal Cannula 2.0 28 01/14/19 07:57 95 20 Nasal Cannula 2.0 28 01/14/19 04:00 98.6 112 18 135/71 (92) 92 01/14/19 00:00 98.9 109 18 146/70 (95) 90 01/13/19 21:49 Nasal Cannula 2.0 28 01/13/19 21:49 Nasal Cannula 2.0 28 01/13/19 21:00 Room Air 01/13/19 20:00 99.2 105 18 135/66 (89) 90 01/13/19 19:28 Nasal Cannula 01/13/19 19:28 Nasal Cannula 01/13/19 19:28 Nasal Cannula 2.0 28 01/13/19 19:28 94 Nasal Cannula 2.0 28 01/13/19 16:00 98.3 66 19 126/70 (88) 99 Intake and Output 01/13/19 01/14/19 19:00 07:00 Intake Total 480 ml Output Total 600 ml 1100 ml Balance -120 ml -1100 ml Intake Oral 480 ml Output Urine Total 600 ml 1100 ml # Voids 1 Objective General Appearance: cachectic HEENT: normocephalic Respiratory/Chest: chest wall non-tender, lungs clear, decrease breath sounds Cardiovascular: normal peripheral pulses, normal rate Abdomen: normal bowel sounds, soft, non tender Extremities: no cyanosis Skin: no rash Laboratory Tests 01/14/19 06:45: White Blood Count 8.7, Red Blood Count 4.54L, Hemoglobin 11.3L, Hematocrit 36.7L , Mean Corpuscular Volume 81, Mean Corpuscular Hemoglobin 24.9L, Mean Corpuscular Hemoglobin Concent 30.8L, Red Cell Distribution Width 16.4H, Platelet Count 534H, Mean Platelet Volume 6.0L, Neutrophils (%) (Auto) 50.8, Lymphocytes (%) (Auto) 30.3, Monocytes (%) (Auto) 10.6H, Eosinophils (%) (Auto) 7.1H, Basophils (%) (Auto) 1.2, Sodium Level 137, Potassium Level 4.4, Chloride Level 102, Carbon Dioxide Level 22, Anion Gap 13, Blood Urea Nitrogen 10, Creatinine 1.4H, Estimat Glomerular Filtration Rate > 60, Glucose Level 85, Calcium Level 8.6 Current Medications Medications (Trade) Dose Ordered Sig/Aminata Route PRN Reason Start Time Stop Time Status Last Admin Dose Admin Acetaminophen (Tylenol) 650 mg Q6H PRN ORAL Mild Pain/Temp > 100.5 01/11/19 15:27 02/10/19 15:26 01/12/19 20:57 Acetylcysteine (Mucomyst) 100 mg TIDRT HHN 01/11/19 19:00 01/26/19 12:59 01/14/19 13:20 Amlodipine Besylate (Norvasc) 10 mg DAILY ORAL 01/12/19 09:00 01/21/19 08:59 01/14/19 08:59 Budesonide (Pulmicort) 0.25 mg Q12HRT HHN 01/11/19 22:00 02/02/19 21:59 01/14/19 09:53 Clopidogrel Bisulfate (Plavix) 75 mg DAILY ORAL 01/12/19 09:00 01/21/19 08:59 01/14/19 08:59 Dextrose (Dextrose 50%) 25 ml Q30M PRN IV Hypoglycemia 01/11/19 15:30 01/21/19 07:29 Dextrose (Dextrose 50%) 50 ml Q30M PRN IV Hypoglycemia 01/11/19 15:30 01/21/19 07:29 Heparin Sodium (Porcine) (Heparin 5000 units/ml) 5,000 units EVERY 12 HOURS SUBQ 01/11/19 21:00 01/21/19 08:59 Hydromorphone HCl (Dilaudid) 3 mg Q3H PRN IVP Severe Pain (Pain Scale 7-10) 01/11/19 15:27 01/14/19 15:26 01/14/19 10:08 Levalbuterol HCl (Xopenex) 1.25 mg TIDPRN PRN HHN Shortness of Breath 01/14/19 08:30 01/19/19 08:29 01/14/19 13:20 Levetiracetam (Keppra) 250 mg Q12HR ORAL 01/11/19 21:00 01/30/19 08:59 01/14/19 08:59 Mirtazapine (Remeron) 45 mg BEDTIME ORAL 01/11/19 21:00 02/09/19 20:59 01/13/19 22:45 Ondansetron HCl (Zofran) 4 mg Q6H PRN IVP Nausea & Vomiting 01/11/19 15:30 01/21/19 15:29 Jessie Magana MD Jan 14, 2019 13:37
--- NOTE | 2019-01-14 15:18 | NUR ---
*-*INSURANCE *-* UPDATED CLINICALS HAVE BEEN FAXED TO: [facility] NCM: MARQUES MURRAY P- [phone] F- [phone]
--- NOTE | 2019-01-14 15:28 | General Progress Note ---
Assessment/Plan Problem List: (1) Acute and chronic respiratory failure ICD Codes: J96.20 - Acute and chronic respiratory failure, unspecified whether with hypoxia or hypercapnia SNOMED: 72852596 (2) Chest pain ICD Codes: R07.9 - Chest pain, unspecified SNOMED: 03061898 Qualifiers: Qualified Codes: R07.9 - Chest pain, unspecified (3) HTN (hypertension) ICD Codes: I10 - Hypertension SNOMED: 77564158 (4) COPD exacerbation ICD Codes: J44.1 - Obstructive chronic bronchitis with exacerbation SNOMED: 415154505 (5) Acute CHF (congestive heart failure) ICD Codes: I50.9 - Heart failure, unspecified SNOMED: 66182848 Qualifiers: Qualified Codes: I50.9 - Heart failure, unspecified Status: unchanged Assessment/Plan o2 pulmt x pt diet cbc bmp am dc to snf if clear Subjective Constitutional: Reports: weakness Allergies: Coded Allergies: EGG (Verified Allergy, Unknown, 09/28/18) MEPERIDINE (Verified Allergy, Unknown, 09/28/18) MORPHINE (Verified Allergy, Unknown, 09/28/18) NITROGLYCERIN (Verified Allergy, Unknown, hives, 09/28/18) All Systems: reviewed and negative except above Subjective o2nc sleepy in bed Objective Last 24 Hour Vital Signs Date Time Temp Pulse Resp B/P (MAP) Pulse Ox O2 Delivery O2 Flow Rate FiO2 01/14/19 14:19 97.1 01/14/19 13:25 101 18 99 Room Air 21 01/14/19 13:20 102 18 96 Room Air 01/14/19 12:00 97.1 105 18 126/74 (91) 95 01/14/19 10:00 116 18 98 Nasal Cannula 2.0 01/14/19 09:53 112 18 90 Room Air 01/14/19 09:00 Room Air 01/14/19 08:59 107 147/72 01/14/19 08:00 98.2 107 20 147/72 (97) 93 01/14/19 07:58 Nasal Cannula 2.0 28 01/14/19 07:58 92 Nasal Cannula 2.0 28 01/14/19 07:58 Nasal Cannula 2.0 28 01/14/19 07:58 Nasal Cannula 2.0 28 01/14/19 07:57 95 20 Nasal Cannula 2.0 28 01/14/19 04:00 98.6 112 18 135/71 (92) 92 01/14/19 00:00 98.9 109 18 146/70 (95) 90 01/13/19 21:49 Nasal Cannula 2.0 28 01/13/19 21:49 Nasal Cannula 2.0 28 01/13/19 21:00 Room Air 01/13/19 20:00 99.2 105 18 135/66 (89) 90 01/13/19 19:28 Nasal Cannula 01/13/19 19:28 Nasal Cannula 01/13/19 19:28 Nasal Cannula 2.0 28 01/13/19 19:28 94 Nasal Cannula 2.0 28 01/13/19 16:00 98.3 66 19 126/70 (88) 99 Intake and Output 01/13/19 01/14/19 18:59 06:59 Intake Total 480 ml Output Total 600 ml 1100 ml Balance -120 ml -1100 ml Intake Oral 480 ml Output Urine Total 600 ml 1100 ml # Voids 1 Laboratory Tests 01/14/19 06:45: White Blood Count 8.7, Red Blood Count 4.54L, Hemoglobin 11.3L, Hematocrit 36.7L , Mean Corpuscular Volume 81, Mean Corpuscular Hemoglobin 24.9L, Mean Corpuscular Hemoglobin Concent 30.8L, Red Cell Distribution Width 16.4H, Platelet Count 534H, Mean Platelet Volume 6.0L, Neutrophils (%) (Auto) 50.8, Lymphocytes (%) (Auto) 30.3, Monocytes (%) (Auto) 10.6H, Eosinophils (%) (Auto) 7.1H, Basophils (%) (Auto) 1.2, Sodium Level 137, Potassium Level 4.4, Chloride Level 102, Carbon Dioxide Level 22, Anion Gap 13, Blood Urea Nitrogen 10, Creatinine 1.4H, Estimat Glomerular Filtration Rate > 60, Glucose Level 85, Calcium Level 8.6 Height (Feet): 6 Height (Inches): 1.00 Weight (Pounds): 125 General Appearance: lethargic EENT: normal ENT inspection Neck: normal alignment Cardiovascular: normal peripheral pulses, normal rate, regular rhythm Respiratory/Chest: chest wall non-tender, lungs clear, normal breath sounds Abdomen: normal bowel sounds, non tender, soft Extremities: normal inspection Edema: no edema noted Arm (L), no edema noted Arm (R), no edema noted Leg (L), no edema noted Leg (R), no edema noted Pedal (L), no edema noted Pedal (R), no edema noted Generalized Neurologic: motor weakness Skin: normal pigmentation, warm/dry Fabio Tracey DO Jan 14, 2019 15:28
[2019-01-14 16:00] VITALS: BP 134/76
--- NOTE | 2019-01-14 16:03 | Infectious Diseases Prog Note ---
Assessment/Plan Assessment/Plan 68 yo male with PMHx of COPD and CHF who presented to the ED on 12/21/18 with CP , SOB, N/V but no diarrhea. Sepsis- 2ry to PNA, s/p rx Leukocytosis, SP -01/12 CXR: Minimally improved but persistent bilateral basilar consolidation , left greater than right, over 7 days. Persistent right upper lobe patchy infiltrates Stable small left pleural effusion. -01/05 CXR: Left basilar infiltrate, likely pneumonia. More questionable right infrahilar infiltrate. Probable left pleural effusion. Possible mild congestive changes /10 u/a neg -influenza sc neg Fever, ;recurrent low grade COPD Exacerbation -12/28 CXR: Slightly increasing interstitial markings bilaterally may be reflective developing mild interstitial edema or pneumonitis. Correlate clinically S/P Tx with Abx and Steroids Right ankle ulcers Do not appear to be infected. N/V - Resolved CHF HTN Hx of CAD - s/p CABG Plan - Continue to monitor off abx unless ongoign fevers, increasing WBC and/or HD instability -01/10 SP IV Vancomycin #8 -01/09 SP Cefepime #5 -01/05 SP Ceftriaxone #3 - 12/25/18 S/P Zosyn #4 -Cdiff if diarrhea -aspiration precautions -wound care Thank you for this consult. We will continue to follow the patient during this hospitalization. Subjective Allergies: Coded Allergies: EGG (Verified Allergy, Unknown, 09/28/18) MEPERIDINE (Verified Allergy, Unknown, 09/28/18) MORPHINE (Verified Allergy, Unknown, 09/28/18) NITROGLYCERIN (Verified Allergy, Unknown, hives, 09/28/18) Subjective afebrile >36hr at 3l NC off abx discharge planning Objective Vital Signs Last 24 Hour Vital Signs Date Time Temp Pulse Resp B/P (MAP) Pulse Ox O2 Delivery O2 Flow Rate FiO2 01/14/19 14:19 97.1 01/14/19 13:25 101 18 99 Room Air 21 01/14/19 13:20 102 18 96 Room Air 21 01/14/19 12:00 97.1 105 18 126/74 (91) 95 01/14/19 10:00 116 18 98 Nasal Cannula 2.0 28 01/14/19 09:53 112 18 90 Room Air 21 01/14/19 09:00 Room Air 01/14/19 08:59 107 147/72 01/14/19 08:00 98.2 107 20 147/72 (97) 93 01/14/19 07:58 Nasal Cannula 2.0 28 01/14/19 07:58 92 Nasal Cannula 2.0 28 01/14/19 07:58 Nasal Cannula 2.0 28 01/14/19 07:58 Nasal Cannula 2.0 28 01/14/19 07:57 95 20 Nasal Cannula 2.0 28 01/14/19 04:00 98.6 112 18 135/71 (92) 92 01/14/19 00:00 98.9 109 18 146/70 (95) 90 01/13/19 21:49 Nasal Cannula 2.0 28 01/13/19 21:49 Nasal Cannula 2.0 28 01/13/19 21:00 Room Air 01/13/19 20:00 99.2 105 18 135/66 (89) 90 01/13/19 19:28 Nasal Cannula 01/13/19 19:28 Nasal Cannula 01/13/19 19:28 Nasal Cannula 2.0 28 01/13/19 19:28 94 Nasal Cannula 2.0 28 Height (Feet): 6 Height (Inches): 1.00 Weight (Pounds): 125 Objective Gen: NAD, well appearing, alert HEENT: NCAT, MMM, EOMI, PERRL, No Oral lesion, no scleral icterus NECK: full range of motion, supple, no meningismus, No LAD, No JVD LUNGS: CTAB, No W/C, No Accessory muscle use CARDS: RRR, S1, S2, No M/R/G, ABD: Soft, NT, ND, No R/G, + BS, No HSM, No Masses : Deferred Ext: right ankle with two shallow ulcers, No surrounding erythema no purulence , Pulses 2+ B/L (DP, Rad): NEURO: A/O x 4, Strength and Sensation Grossly intact PSYCH: Mood/affect normal SKIN: Warm/dry, No rashes Laboratory Tests Test 01/14/19 06:45 White Blood Count 8.7 K/UL (4.8-10.8) Red Blood Count 4.54 M/UL (4.70-6.10) L Hemoglobin 11.3 G/DL (14.2-18.0) L Hematocrit 36.7 % (42.0-52.0) L Mean Corpuscular Volume 81 FL (80-99) Mean Corpuscular Hemoglobin 24.9 PG (27.0-31.0) L Mean Corpuscular Hemoglobin Concent 30.8 G/DL (32.0-36.0) L Red Cell Distribution Width 16.4 % (11.6-14.8) H Platelet Count 534 K/UL (150-450) H Mean Platelet Volume 6.0 FL (6.5-10.1) L Neutrophils (%) (Auto) 50.8 % (45.0-75.0) Lymphocytes (%) (Auto) 30.3 % (20.0-45.0) Monocytes (%) (Auto) 10.6 % (1.0-10.0) H Eosinophils (%) (Auto) 7.1 % (0.0-3.0) H Basophils (%) (Auto) 1.2 % (0.0-2.0) Sodium Level 137 MMOL/L (136-145) Potassium Level 4.4 MMOL/L (3.5-5.1) Chloride Level 102 MMOL/L (98-107) Carbon Dioxide Level 22 MMOL/L (21-32) Anion Gap 13 mmol/L (5-15) Blood Urea Nitrogen 10 mg/dL (7-18) Creatinine 1.4 MG/DL (0.55-1.30) H Estimat Glomerular Filtration Rate > 60 mL/min (>60) Glucose Level 85 MG/DL (74-106) Calcium Level 8.6 MG/DL (8.5-10.1) Current Medications Medications (Trade) Dose Ordered Sig/Aminata Route PRN Reason Start Time Stop Time Status Last Admin Dose Admin Acetaminophen (Tylenol) 650 mg Q6H PRN ORAL Mild Pain/Temp > 100.5 01/11/19 15:27 02/10/19 15:26 01/12/19 20:57 Acetylcysteine (Mucomyst) 100 mg TIDRT HHN 01/11/19 19:00 01/26/19 12:59 01/14/19 13:20 Amlodipine Besylate (Norvasc) 10 mg DAILY ORAL 01/12/19 09:00 01/21/19 08:59 01/14/19 08:59 Budesonide (Pulmicort) 0.25 mg Q12HRT HHN 01/11/19 22:00 02/02/19 21:59 01/14/19 09:53 Clopidogrel Bisulfate (Plavix) 75 mg DAILY ORAL 01/12/19 09:00 01/21/19 08:59 01/14/19 08:59 Dextrose (Dextrose 50%) 25 ml Q30M PRN IV Hypoglycemia 01/11/19 15:30 01/21/19 07:29 Dextrose (Dextrose 50%) 50 ml Q30M PRN IV Hypoglycemia 01/11/19 15:30 01/21/19 07:29 Heparin Sodium (Porcine) (Heparin 5000 units/ml) 5,000 units EVERY 12 HOURS SUBQ 01/11/19 21:00 01/21/19 08:59 Levalbuterol HCl (Xopenex) 1.25 mg TIDPRN PRN HHN Shortness of Breath 01/14/19 08:30 01/19/19 08:29 01/14/19 13:20 Levetiracetam (Keppra) 250 mg Q12HR ORAL 01/11/19 21:00 01/30/19 08:59 01/14/19 08:59 Mirtazapine (Remeron) 45 mg BEDTIME ORAL 01/11/19 21:00 02/09/19 20:59 01/13/19 22:45 Ondansetron HCl (Zofran) 4 mg Q6H PRN IVP Nausea & Vomiting 01/11/19 15:30 01/21/19 15:29 Jessica Parry M.D. Jan 14, 2019 16:03
--- NOTE | 2019-01-14 19:40 | NUR ---
NURSE NOTES: Received patient in bed awake. Complaining of pain. Will give pain medication as ordered. Patient asking for snacks will give food. IV line intact and patent. Bed in lowest position and locked. Call light within reach. Will continue to monitor.
[2019-01-14 20:00] VITALS: BP 122/70
--- NOTE | 2019-01-14 20:01 | NUR ---
HAND-OFF: Report given to RN Ordarryn.
[2019-01-15] VITALS: BP 121/76
--- NOTE | 2019-01-15 01:45 | NUR ---
NURSE NOTES: Received patient sleeping, no s/s of distress, will continue to monitor.
--- NOTE | 2019-01-15 01:45 | NUR ---
HAND-OFF: Report given to CHRISTOPHER Cao.
[2019-01-15 04:00] VITALS: BP 142/88
--- NOTE | 2019-01-15 07:16 | NUR ---
HAND-OFF: Report given to Yari WHITE.
[2019-01-15 07:20] LABS: BASOPHILS % (AUTO) 1.1 % (0.0-2.0); EOSINOPHILS % (AUTO) 8.3 % (0.0-3.0); HEMATOCRIT 35.2 % (42.0-52.0); HEMOGLOBIN 10.8 G/DL (14.2-18.0); LYMPHOCYTES % (AUTO) 30.9 % (20.0-45.0); MEAN CORPUSCULAR VOLUME 80 FL (80-99); NEUTROPHILS % (AUTO) 47.7 % (45.0-75.0); PLATELET COUNT 552 K/UL (150-450); RED BLOOD COUNT 4.39 M/UL (4.70-6.10); RED CELL DISTRIBUTION WIDTH 15.9 % (11.6-14.8); WHITE BLOOD COUNT 7.4 K/UL (4.8-10.8)
[2019-01-15 08:00] VITALS: BP 135/64
--- NOTE | 2019-01-15 08:00 | NUR ---
NURSE NOTES: Received patient in bed, resting and alert X4. Patient denies pain. No signs of respiratory distress. IV intact. Bed in lowest position, call light within reach. Will continue to monitor.
[2019-01-15 08:04] LABS: ANION GAP 9 mmol/L (5-15); BLOOD UREA NITROGEN 12 mg/dL (7-18); CALCIUM 8.8 MG/DL (8.5-10.1); CARBON DIOXIDE 26 MMOL/L (21-32); CHLORIDE 103 MMOL/L (98-107); CREATININE 1.4 MG/DL (0.55-1.30); POTASSIUM 4.3 MMOL/L (3.5-5.1); SODIUM 138 MMOL/L (136-145)
[2019-01-15] MEDS: Heparin 5000 units/ml inj SUBQ SCH ×2 (08:55→20:30)
[2019-01-15] MEDS: Budesonide HHN 0.25mg/2ml ud HHN SCH ×3 (11:22→21:25)
[2019-01-15 12:00] VITALS: BP 113/95
--- NOTE | 2019-01-15 12:06 | NUR ---
RD ASSESSMENT & RECOMMENDATIONS SEE CARE ACTIVITY FOR COMPLETE ASSESSMENT DAILY ESTIMATED NEEDS: Needs based on wound, underweight/ 59kg 30-35 kcals/kg 8245-4124 total kcals 1.25-1.5 g protein/kg 74-89g g total protein 25-30 mL/kg 8328-5513 total fluid mLs NUTRITION DIAGNOSIS: 1) Increased kcal and protein needs R/T wound healing and for wt gain as evidenced by h/o right ankle chronic open wound, pt is est 71% IBW w/ underweight BMI per guidelines, currently w/ poor po intake.(UPDATED) 2) Altered nutrition related lab values R/T clinical condition, CHF as evidenced by elev K (5.4-> now wnl), elev BNP (1046-> 558). CURRENT DIET:REGULAR PO DIET RECOMMENDATIONS: W/ poor po: REGULAR DIET + double Protein portions/ texture as tolerated ADDITIONAL RECOMMENDATIONS: - RE-calibrate bed scale for accurate CBW - Weekly wt monitoring given underweight status - Snacks TID in between meals + Ensure Enlive TID w/ meals - Wound healing: MVI w/ min x 1, Vit C 500mg QD, Nilson 1pkt BID - Monitor K, need for diet restriction - Monitor BGs closely while solumedrol- now off (bg wnl) * CONSULT RD IF NON ORAL FEEDS ARE PART OF POC D/T POOR PO *
--- NOTE | 2019-01-15 14:42 | General Progress Note ---
Assessment/Plan Problem List: (1) Acute and chronic respiratory failure ICD Codes: J96.20 - Acute and chronic respiratory failure, unspecified whether with hypoxia or hypercapnia SNOMED: 79493822 (2) Chest pain ICD Codes: R07.9 - Chest pain, unspecified SNOMED: 18072046 Qualifiers: Qualified Codes: R07.9 - Chest pain, unspecified (3) HTN (hypertension) ICD Codes: I10 - Hypertension SNOMED: 51149879 (4) COPD exacerbation ICD Codes: J44.1 - Obstructive chronic bronchitis with exacerbation SNOMED: 226923197 (5) Acute CHF (congestive heart failure) ICD Codes: I50.9 - Heart failure, unspecified SNOMED: 22437197 Qualifiers: Qualified Codes: I50.9 - Heart failure, unspecified Status: unchanged Assessment/Plan o2 pulmt x pt diet cbc bmp am dc to snf if clear Subjective Constitutional: Reports: weakness Allergies: Coded Allergies: EGG (Verified Allergy, Unknown, 09/28/18) MEPERIDINE (Verified Allergy, Unknown, 09/28/18) MORPHINE (Verified Allergy, Unknown, 09/28/18) NITROGLYCERIN (Verified Allergy, Unknown, hives, 09/28/18) All Systems: reviewed and negative except above Subjective o2nc sleepy in bed Objective Last 24 Hour Vital Signs Date Time Temp Pulse Resp B/P (MAP) Pulse Ox O2 Delivery O2 Flow Rate FiO2 01/15/19 13:13 Room Air 21 01/15/19 13:13 Room Air 01/15/19 12:00 98.4 120 18 113/95 (101) 96 01/15/19 11:39 115 18 99 Nasal Cannula 2.0 28 01/15/19 11:32 91 Room Air 21 01/15/19 11:32 119 20 92 Room Air 21 01/15/19 11:32 Room Air 21 01/15/19 11:06 Room Air 21 01/15/19 11:06 Room Air 21 01/15/19 09:04 110 135/64 01/15/19 09:00 Room Air 01/15/19 08:00 98.4 110 20 135/64 (87) 95 01/15/19 04:00 98.3 109 19 142/88 (106) 94 01/15/19 00:00 98.7 120 20 121/76 (91) 93 01/14/19 21:00 Room Air 01/14/19 20:55 Room Air 21 01/14/19 20:55 Room Air 21 01/14/19 20:54 Room Air 21 01/14/19 20:54 Room Air 21 01/14/19 20:00 99.0 108 19 122/70 (87) 92 01/14/19 18:00 97.3 01/14/19 16:00 97.3 99 20 134/76 (95) 97 Intake and Output 01/14/19 01/15/19 19:00 07:00 Intake Total 550 ml Output Total 1100 ml Balance -550 ml Intake Oral 550 ml Output Urine Total 1100 ml # Voids 1 Laboratory Tests 01/15/19 05:15: White Blood Count 7.4, Red Blood Count 4.39L, Hemoglobin 10.8L, Hematocrit 35.2L , Mean Corpuscular Volume 80, Mean Corpuscular Hemoglobin 24.6L, Mean Corpuscular Hemoglobin Concent 30.7L, Red Cell Distribution Width 15.9H, Platelet Count 552H, Mean Platelet Volume 5.9L, Neutrophils (%) (Auto) 47.7, Lymphocytes (%) (Auto) 30.9, Monocytes (%) (Auto) 12.0H, Eosinophils (%) (Auto) 8.3H, Basophils (%) (Auto) 1.1, Sodium Level 138, Potassium Level 4.3, Chloride Level 103, Carbon Dioxide Level 26, Anion Gap 9, Blood Urea Nitrogen 12, Creatinine 1.4H, Estimat Glomerular Filtration Rate > 60, Glucose Level 82, Calcium Level 8.8 Height (Feet): 6 Height (Inches): 1.00 Weight (Pounds): 125 General Appearance: lethargic EENT: PERRL/EOMI Neck: normal alignment Cardiovascular: normal peripheral pulses, normal rate, regular rhythm Respiratory/Chest: chest wall non-tender, decreased breath sounds Abdomen: normal bowel sounds, non tender, soft Extremities: normal inspection Edema: no edema noted Arm (L), no edema noted Arm (R), no edema noted Leg (L), no edema noted Leg (R), no edema noted Pedal (L), no edema noted Pedal (R), no edema noted Generalized Neurologic: motor weakness Skin: normal pigmentation, warm/dry Fabio Tracey DO Jan 15, 2019 14:42
--- NOTE | 2019-01-15 15:19 | Pulmonology Progress Note ---
Assessment/Plan Problems: (1) Nosocomial pneumonia (2) COPD exacerbation (3) Acute bronchitis (4) Hypothyroidism (5) CAD (coronary artery disease) (6) Severe protein-calorie malnutrition (7) Chronic ulcer of right leg Assessment/Plan in better mood no new complains feeling better but lower than yesterday no new complains renal f/u respiratory treatment wound care doing better all reviewed Subjective ROS Limited/Unobtainable: No Constitutional: Reports: no symptoms HEENT: Repors: no symptoms Allergies: Coded Allergies: EGG (Verified Allergy, Unknown, 09/28/18) MEPERIDINE (Verified Allergy, Unknown, 09/28/18) MORPHINE (Verified Allergy, Unknown, 09/28/18) NITROGLYCERIN (Verified Allergy, Unknown, hives, 09/28/18) Objective Last 24 Hour Vital Signs Date Time Temp Pulse Resp B/P (MAP) Pulse Ox O2 Delivery O2 Flow Rate FiO2 01/15/19 13:13 Room Air 21 01/15/19 13:13 Room Air 01/15/19 12:00 98.4 120 18 113/95 (101) 96 01/15/19 11:39 115 18 99 Nasal Cannula 2.0 28 01/15/19 11:32 91 Room Air 01/15/19 11:32 119 20 92 Room Air 01/15/19 11:32 Room Air 21 01/15/19 11:06 Room Air 21 01/15/19 11:06 Room Air 01/15/19 09:04 110 135/64 01/15/19 09:00 Room Air 01/15/19 08:00 98.4 110 20 135/64 (87) 95 01/15/19 04:00 98.3 109 19 142/88 (106) 94 01/15/19 00:00 98.7 120 20 121/76 (91) 93 01/14/19 21:00 Room Air 01/14/19 20:55 Room Air 21 01/14/19 20:55 Room Air 21 01/14/19 20:54 Room Air 21 01/14/19 20:54 Room Air 21 01/14/19 20:00 99.0 108 19 122/70 (87) 92 01/14/19 18:00 97.3 01/14/19 16:00 97.3 99 20 134/76 (95) 97 Intake and Output 01/14/19 01/15/19 19:00 07:00 Intake Total 550 ml Output Total 1100 ml Balance -550 ml Intake Oral 550 ml Output Urine Total 1100 ml # Voids 1 Objective General Appearance: cachectic HEENT: normocephalic Respiratory/Chest: chest wall non-tender, lungs clear, decrease breath sounds Cardiovascular: normal peripheral pulses, normal rate Abdomen: normal bowel sounds, soft, non tender Extremities: no cyanosis Skin: no rash Laboratory Tests 01/15/19 05:15: White Blood Count 7.4, Red Blood Count 4.39L, Hemoglobin 10.8L, Hematocrit 35.2L , Mean Corpuscular Volume 80, Mean Corpuscular Hemoglobin 24.6L, Mean Corpuscular Hemoglobin Concent 30.7L, Red Cell Distribution Width 15.9H, Platelet Count 552H, Mean Platelet Volume 5.9L, Neutrophils (%) (Auto) 47.7, Lymphocytes (%) (Auto) 30.9, Monocytes (%) (Auto) 12.0H, Eosinophils (%) (Auto) 8.3H, Basophils (%) (Auto) 1.1, Sodium Level 138, Potassium Level 4.3, Chloride Level 103, Carbon Dioxide Level 26, Anion Gap 9, Blood Urea Nitrogen 12, Creatinine 1.4H, Estimat Glomerular Filtration Rate > 60, Glucose Level 82, Calcium Level 8.8 Current Medications Medications (Trade) Dose Ordered Sig/Aminata Route PRN Reason Start Time Stop Time Status Last Admin Dose Admin Acetaminophen (Tylenol) 650 mg Q6H PRN ORAL Mild Pain/Temp > 100.5 01/11/19 15:27 02/10/19 15:26 01/12/19 20:57 Acetylcysteine (Mucomyst) 100 mg TIDRT N 01/11/19 19:00 01/26/19 12:59 01/14/19 13:20 Amlodipine Besylate (Norvasc) 10 mg DAILY ORAL 01/12/19 09:00 01/21/19 08:59 01/15/19 09:04 Budesonide (Pulmicort) 0.25 mg Q12HRT [facility] 01/11/19 22:00 02/02/19 21:59 01/15/19 11:32 Clopidogrel Bisulfate (Plavix) 75 mg DAILY ORAL 01/12/19 09:00 01/21/19 08:59 01/15/19 09:04 Dextrose (Dextrose 50%) 25 ml Q30M PRN IV Hypoglycemia 01/11/19 15:30 01/21/19 07:29 Dextrose (Dextrose 50%) 50 ml Q30M PRN IV Hypoglycemia 01/11/19 15:30 01/21/19 07:29 Heparin Sodium (Porcine) (Heparin 5000 units/ml) 5,000 units EVERY 12 HOURS SUBQ 01/11/19 21:00 01/21/19 08:59 01/14/19 20:29 Hydromorphone HCl (Dilaudid) 3 mg Q3H PRN IVP Severe Pain (Pain Scale 7-10) 01/14/19 17:15 01/21/19 17:14 01/15/19 12:05 Levalbuterol HCl (Xopenex) 1.25 mg TIDPRN PRN HHN Shortness of Breath 01/14/19 08:30 01/19/19 08:29 01/14/19 13:20 Levetiracetam (Keppra) 250 mg Q12HR ORAL 01/11/19 21:00 01/30/19 08:59 01/15/19 09:04 Mirtazapine (Remeron) 45 mg BEDTIME ORAL 01/11/19 21:00 02/09/19 20:59 01/14/19 20:29 Ondansetron HCl (Zofran) 4 mg Q6H PRN IVP Nausea & Vomiting 01/11/19 15:30 01/21/19 15:29 Jessie Magana MD Jan 15, 2019 15:19
--- NOTE | 2019-01-15 15:19 | Pulmonology Progress Note ---
Assessment/Plan Problems: (1) Nosocomial pneumonia (2) COPD exacerbation (3) Acute bronchitis (4) Hypothyroidism (5) CAD (coronary artery disease) (6) Severe protein-calorie malnutrition (7) Chronic ulcer of right leg Assessment/Plan in better mood no new complains feeling better but lower than yesterday no new complains renal f/u respiratory treatment wound care doing better all reviewed Subjective ROS Limited/Unobtainable: No Interval Events: late note 01/13 Constitutional: Reports: no symptoms HEENT: Repors: no symptoms Respiratory: Reports: no symptoms Allergies: Coded Allergies: EGG (Verified Allergy, Unknown, 09/28/18) MEPERIDINE (Verified Allergy, Unknown, 09/28/18) MORPHINE (Verified Allergy, Unknown, 09/28/18) NITROGLYCERIN (Verified Allergy, Unknown, hives, 09/28/18) Objective Last 24 Hour Vital Signs Date Time Temp Pulse Resp B/P (MAP) Pulse Ox O2 Delivery O2 Flow Rate FiO2 01/15/19 13:13 Room Air 01/15/19 13:13 Room Air 01/15/19 12:00 98.4 120 18 113/95 (101) 96 01/15/19 11:39 115 18 99 Nasal Cannula 2.0 28 01/15/19 11:32 91 Room Air 01/15/19 11:32 119 20 92 Room Air 01/15/19 11:32 Room Air 01/15/19 11:06 Room Air 21 01/15/19 11:06 Room Air 01/15/19 09:04 110 135/64 01/15/19 09:00 Room Air 01/15/19 08:00 98.4 110 20 135/64 (87) 95 01/15/19 04:00 98.3 109 19 142/88 (106) 94 01/15/19 00:00 98.7 120 20 121/76 (91) 93 01/14/19 21:00 Room Air 01/14/19 20:55 Room Air 21 01/14/19 20:55 Room Air 21 01/14/19 20:54 Room Air 21 01/14/19 20:54 Room Air 21 01/14/19 20:00 99.0 108 19 122/70 (87) 92 01/14/19 18:00 97.3 01/14/19 16:00 97.3 99 20 134/76 (95) 97 Intake and Output 01/14/19 01/15/19 19:00 07:00 Intake Total 550 ml Output Total 1100 ml Balance -550 ml Intake Oral 550 ml Output Urine Total 1100 ml # Voids 1 Objective General Appearance: cachectic HEENT: normocephalic Respiratory/Chest: chest wall non-tender, lungs clear, decrease breath sounds Cardiovascular: normal peripheral pulses, normal rate Abdomen: normal bowel sounds, soft, non tender Extremities: no cyanosis Skin: no rash Laboratory Tests 01/15/19 05:15: White Blood Count 7.4, Red Blood Count 4.39L, Hemoglobin 10.8L, Hematocrit 35.2L , Mean Corpuscular Volume 80, Mean Corpuscular Hemoglobin 24.6L, Mean Corpuscular Hemoglobin Concent 30.7L, Red Cell Distribution Width 15.9H, Platelet Count 552H, Mean Platelet Volume 5.9L, Neutrophils (%) (Auto) 47.7, Lymphocytes (%) (Auto) 30.9, Monocytes (%) (Auto) 12.0H, Eosinophils (%) (Auto) 8.3H, Basophils (%) (Auto) 1.1, Sodium Level 138, Potassium Level 4.3, Chloride Level 103, Carbon Dioxide Level 26, Anion Gap 9, Blood Urea Nitrogen 12, Creatinine 1.4H, Estimat Glomerular Filtration Rate > 60, Glucose Level 82, Calcium Level 8.8 Current Medications Medications (Trade) Dose Ordered Sig/Aminata Route PRN Reason Start Time Stop Time Status Last Admin Dose Admin Acetaminophen (Tylenol) 650 mg Q6H PRN ORAL Mild Pain/Temp > 100.5 01/11/19 15:27 02/10/19 15:26 01/12/19 20:57 Acetylcysteine (Mucomyst) 100 mg TIDRT N 01/11/19 19:00 01/26/19 12:59 01/14/19 13:20 Amlodipine Besylate (Norvasc) 10 mg DAILY ORAL 01/12/19 09:00 01/21/19 08:59 01/15/19 09:04 Budesonide (Pulmicort) 0.25 mg Q12HRT N 01/11/19 22:00 02/02/19 21:59 01/15/19 11:32 Clopidogrel Bisulfate (Plavix) 75 mg DAILY ORAL 01/12/19 09:00 01/21/19 08:59 01/15/19 09:04 Dextrose (Dextrose 50%) 25 ml Q30M PRN IV Hypoglycemia 01/11/19 15:30 01/21/19 07:29 Dextrose (Dextrose 50%) 50 ml Q30M PRN IV Hypoglycemia 01/11/19 15:30 01/21/19 07:29 Heparin Sodium (Porcine) (Heparin 5000 units/ml) 5,000 units EVERY 12 HOURS SUBQ 01/11/19 21:00 01/21/19 08:59 01/14/19 20:29 Hydromorphone HCl (Dilaudid) 3 mg Q3H PRN IVP Severe Pain (Pain Scale 7-10) 01/14/19 17:15 01/21/19 17:14 01/15/19 12:05 Levalbuterol HCl (Xopenex) 1.25 mg TIDPRN PRN HHN Shortness of Breath 01/14/19 08:30 01/19/19 08:29 01/14/19 13:20 Levetiracetam (Keppra) 250 mg Q12HR ORAL 01/11/19 21:00 01/30/19 08:59 01/15/19 09:04 Mirtazapine (Remeron) 45 mg BEDTIME ORAL 01/11/19 21:00 02/09/19 20:59 01/14/19 20:29 Ondansetron HCl (Zofran) 4 mg Q6H PRN IVP Nausea & Vomiting 01/11/19 15:30 01/21/19 15:29 Jessie Magana MD Jan 15, 2019 15:19
[2019-01-15 16:00] VITALS: BP 115/74
--- NOTE | 2019-01-15 17:20 | NUR ---
*-* DISCHARGE PLANNING *-* PATIENT HAS BEEN REFERRED TO: [facility] F:[phone]
--- NOTE | 2019-01-15 18:36 | Infectious Diseases Prog Note ---
Assessment/Plan Assessment/Plan 68 yo male with PMHx of COPD and CHF who presented to the ED on 12/21/18 with CP , SOB, N/V but no diarrhea. Sepsis- 2ry to PNA, s/p rx Leukocytosis, SP -01/12 CXR: Minimally improved but persistent bilateral basilar consolidation , left greater than right, over 7 days. Persistent right upper lobe patchy infiltrates Stable small left pleural effusion. -01/05 CXR: Left basilar infiltrate, likely pneumonia. More questionable right infrahilar infiltrate. Probable left pleural effusion. Possible mild congestive changes /10 u/a neg -influenza sc neg Fever, ;recurrent low grade COPD Exacerbation -12/28 CXR: Slightly increasing interstitial markings bilaterally may be reflective developing mild interstitial edema or pneumonitis. Correlate clinically S/P Tx with Abx and Steroids Right ankle ulcers Do not appear to be infected. N/V - Resolved CHF HTN Hx of CAD - s/p CABG Plan - Continue to monitor off abx unless ongoign fevers, increasing WBC and/or HD instability -01/10 SP IV Vancomycin #8 -01/09 SP Cefepime #5 -01/05 SP Ceftriaxone #3 - 12/25/18 S/P Zosyn #4 -Cdiff if diarrhea -aspiration precautions -wound care Thank you for this consult. We will continue to follow the patient during this hospitalization. Subjective Allergies: Coded Allergies: EGG (Verified Allergy, Unknown, 09/28/18) MEPERIDINE (Verified Allergy, Unknown, 09/28/18) MORPHINE (Verified Allergy, Unknown, 09/28/18) NITROGLYCERIN (Verified Allergy, Unknown, hives, 09/28/18) Subjective afebrile >48hr at RA off abx discharge planning Objective Vital Signs Last 24 Hour Vital Signs Date Time Temp Pulse Resp B/P (MAP) Pulse Ox O2 Delivery O2 Flow Rate FiO2 01/15/19 16:00 97.2 106 20 115/74 (88) 98 01/15/19 13:13 Room Air 21 01/15/19 13:13 Room Air 21 01/15/19 12:00 98.4 120 18 113/95 (101) 96 01/15/19 11:39 115 18 99 Nasal Cannula 2.0 28 01/15/19 11:32 91 Room Air 01/15/19 11:32 119 20 92 Room Air 21 01/15/19 11:32 Room Air 21 01/15/19 11:06 Room Air 21 01/15/19 11:06 Room Air 21 01/15/19 09:04 110 135/64 01/15/19 09:00 Room Air 01/15/19 08:00 98.4 110 20 135/64 (87) 95 01/15/19 04:00 98.3 109 19 142/88 (106) 94 01/15/19 00:00 98.7 120 20 121/76 (91) 93 01/14/19 21:00 Room Air 01/14/19 20:55 Room Air 21 01/14/19 20:55 Room Air 21 01/14/19 20:54 Room Air 21 01/14/19 20:54 Room Air 21 01/14/19 20:00 99.0 108 19 122/70 (87) 92 Height (Feet): 6 Height (Inches): 1.00 Weight (Pounds): 125 Objective Gen: NAD, well appearing, alert HEENT: NCAT, MMM, EOMI, PERRL, No Oral lesion, no scleral icterus NECK: full range of motion, supple, no meningismus, No LAD, No JVD LUNGS: CTAB, No W/C, No Accessory muscle use CARDS: RRR, S1, S2, No M/R/G, ABD: Soft, NT, ND, No R/G, + BS, No HSM, No Masses : Deferred Ext: right ankle with two shallow ulcers, No surrounding erythema no purulence , Pulses 2+ B/L (DP, Rad): NEURO: A/O x 4, Strength and Sensation Grossly intact PSYCH: Mood/affect normal SKIN: Warm/dry, No rashes Laboratory Tests Test 01/15/19 05:15 White Blood Count 7.4 K/UL (4.8-10.8) Red Blood Count 4.39 M/UL (4.70-6.10) L Hemoglobin 10.8 G/DL (14.2-18.0) L Hematocrit 35.2 % (42.0-52.0) L Mean Corpuscular Volume 80 FL (80-99) Mean Corpuscular Hemoglobin 24.6 PG (27.0-31.0) L Mean Corpuscular Hemoglobin Concent 30.7 G/DL (32.0-36.0) L Red Cell Distribution Width 15.9 % (11.6-14.8) H Platelet Count 552 K/UL (150-450) H Mean Platelet Volume 5.9 FL (6.5-10.1) L Neutrophils (%) (Auto) 47.7 % (45.0-75.0) Lymphocytes (%) (Auto) 30.9 % (20.0-45.0) Monocytes (%) (Auto) 12.0 % (1.0-10.0) H Eosinophils (%) (Auto) 8.3 % (0.0-3.0) H Basophils (%) (Auto) 1.1 % (0.0-2.0) Sodium Level 138 MMOL/L (136-145) Potassium Level 4.3 MMOL/L (3.5-5.1) Chloride Level 103 MMOL/L (98-107) Carbon Dioxide Level 26 MMOL/L (21-32) Anion Gap 9 mmol/L (5-15) Blood Urea Nitrogen 12 mg/dL (7-18) Creatinine 1.4 MG/DL (0.55-1.30) H Estimat Glomerular Filtration Rate > 60 mL/min (>60) Glucose Level 82 MG/DL (74-106) Calcium Level 8.8 MG/DL (8.5-10.1) Current Medications Medications (Trade) Dose Ordered Sig/Aminata Route PRN Reason Start Time Stop Time Status Last Admin Dose Admin Acetaminophen (Tylenol) 650 mg Q6H PRN ORAL Mild Pain/Temp > 100.5 01/11/19 15:27 02/10/19 15:26 01/12/19 20:57 Acetylcysteine (Mucomyst) [address] [facility] 01/11/19 19:00 01/26/19 12:59 01/14/19 13:20 Amlodipine Besylate (Norvasc) 10 mg DAILY ORAL 01/12/19 09:00 01/21/19 08:59 01/15/19 09:04 Budesonide (Pulmicort) 0.[address] [facility] 01/11/19 22:00 02/02/19 21:59 01/15/19 11:32 Clopidogrel Bisulfate (Plavix) 75 mg DAILY ORAL 01/12/19 09:00 01/21/19 08:59 01/15/19 09:04 Dextrose (Dextrose 50%) 25 ml Q30M PRN IV Hypoglycemia 01/11/19 15:30 01/21/19 07:29 Dextrose (Dextrose 50%) 50 ml Q30M PRN IV Hypoglycemia 01/11/19 15:30 01/21/19 07:29 Heparin Sodium (Porcine) (Heparin 5000 units/ml) 5,000 units EVERY 12 HOURS SUBQ 01/11/19 21:00 01/21/19 08:59 01/14/19 20:29 Hydromorphone HCl (Dilaudid) 3 mg Q3H PRN IVP Severe Pain (Pain Scale 7-10) 01/14/19 17:15 01/21/19 17:14 01/15/19 15:56 Levalbuterol HCl (Xopenex) 1.25 mg TIDPRN PRN HHN Shortness of Breath 01/14/19 08:30 01/19/19 08:29 01/14/19 13:20 Levetiracetam (Keppra) 250 mg Q12HR ORAL 01/11/19 21:00 01/30/19 08:59 01/15/19 09:04 Mirtazapine (Remeron) 45 mg BEDTIME ORAL 01/11/19 21:00 02/09/19 20:59 01/14/19 20:29 Ondansetron HCl (Zofran) 4 mg Q6H PRN IVP Nausea & Vomiting 01/11/19 15:30 01/21/19 15:29 Jessica Parry M.D. Jan 15, 2019 18:36
--- NOTE | 2019-01-15 19:35 | NUR ---
HAND-OFF: Report given to CHRISTOPHER Edouard.
[2019-01-15 20:00] VITALS: BP 127/74
--- NOTE | 2019-01-15 20:11 | NUR ---
CASE MANAGEMENT: REVIEW SI: CHF EXACERBATION T 97.2 HR 120 RR 18 BP 113/95 SAT 96% SAT 99% NC/2L H/H 10.8/35.2 IS: NORVASC PO QD KEPPRA PO Q12HR PULMICORT HHN Q12HR MED/SURG STATUS DCP: PATIENT IS FROM HOME.
[2019-01-16] VITALS: BP 117/76
[2019-01-16 04:00] VITALS: BP 145/82
[2019-01-16 06:59] LABS: ANION GAP 7 mmol/L (5-15); BLOOD UREA NITROGEN 12 mg/dL (7-18); CALCIUM 8.3 MG/DL (8.5-10.1); CARBON DIOXIDE 27 MMOL/L (21-32); CHLORIDE 105 MMOL/L (98-107); CREATININE 1.4 MG/DL (0.55-1.30); EOSINOPHILS % (AUTO) 8.7 % (0.0-3.0); HEMATOCRIT 32.8 % (42.0-52.0); HEMOGLOBIN 10.2 G/DL (14.2-18.0); LYMPHOCYTES % (AUTO) 25.4 % (20.0-45.0); MEAN CORPUSCULAR VOLUME 80 FL (80-99); MONOCYTES % (AUTO) 13.5 % (1.0-10.0); NEUTROPHILS % (AUTO) 51.4 % (45.0-75.0); PLATELET COUNT 490 K/UL (150-450); POTASSIUM 4.1 MMOL/L (3.5-5.1); RED BLOOD COUNT 4.12 M/UL (4.70-6.10); RED CELL DISTRIBUTION WIDTH 16.2 % (11.6-14.8); SODIUM 139 MMOL/L (136-145); WHITE BLOOD COUNT 7.3 K/UL (4.8-10.8)
--- NOTE | 2019-01-16 07:06 | NUR ---
HAND-OFF: Report given to CHRISTOPHER Fernandez.
--- NOTE | 2019-01-16 07:26 | Pulmonology Progress Note ---
Assessment/Plan Assessment/Plan ASSESSMENT COPD exacerbation Acute bronchitis Acute renal failure on chronic kidney disease Visible foreign body in the left sternal area , consistent with sternal wires. HTN CAD with hx of CABG Severe protein calorie malnutrition Chronic right leg ulcer Hypothyroidism Seizure disorder PLAN OF CARE MS floor [id number] to keep pulse ox above 92 % , pulmonary toilet with Levalbuterol prn, closely monitor HR s/p steroid and abx Rx blood cx negative ,influenza screen test negative ,sputum cx negative, urine culture + mixed GPO ID closely follows CT chest with COPD changes ECHO with pEF 55-60% and evidence of moderate pulmonary hypertension likely due to COPD DVT prophylaxis BiPAP at night prn renal ultrasound - no hydronephrosis monitor renal parameters and electrolytes , avoid nephrotoxins . correct electrolytes as needed patient off QUINTEN inhibitor BP management with CC continue Plavix seizure precaution, continue Keppra patient is working with PT nutr recs implemented in POC leg ulcer care supportive care pain management awaiting for placement patient will need removal of sternal wires as outpatient case discussed and evaluated by supervising physician Subjective Allergies: Coded Allergies: EGG (Verified Allergy, Unknown, 09/28/18) MEPERIDINE (Verified Allergy, Unknown, 09/28/18) MORPHINE (Verified Allergy, Unknown, 09/28/18) NITROGLYCERIN (Verified Allergy, Unknown, hives, 09/28/18) Subjective pulse ox stable on RA no signs of resp distress awaiting for placement Objective Last 24 Hour Vital Signs Date Time Temp Pulse Resp B/P (MAP) Pulse Ox O2 Delivery O2 Flow Rate FiO2 01/16/19 04:39 98.3 01/16/19 04:00 98.3 102 18 145/82 (103) 93 01/16/19 00:00 97.9 110 18 117/76 (90) 93 01/15/19 21:26 Room Air 01/15/19 21:26 Room Air 01/15/19 21:00 Room Air 01/15/19 20:00 97.9 106 17 127/74 (91) 93 01/15/19 19:00 Room Air 01/15/19 19:00 Room Air 01/15/19 19:00 Room Air 01/15/19 19:00 Room Air 01/15/19 16:00 97.2 106 20 115/74 (88) 98 01/15/19 13:13 Room Air 21 01/15/19 13:13 Room Air 01/15/19 12:00 98.4 120 18 113/95 (101) 96 01/15/19 11:39 115 18 99 Nasal Cannula 2.0 28 01/15/19 11:32 91 Room Air 01/15/19 11:32 119 20 92 Room Air 01/15/19 11:32 Room Air 01/15/19 11:06 Room Air 01/15/19 11:06 Room Air 01/15/19 09:04 110 135/64 01/15/19 09:00 Room Air 01/15/19 08:00 98.4 110 20 135/64 (87) 95 Intake and Output 01/15/19 01/16/19 18:59 06:59 Output Total 1400 ml 300 ml Balance -1400 ml -300 ml Output Urine Total 1400 ml 300 ml Objective General Appearance: no acute distress HEENT: normocephalic, atraumatic, anicteric Respiratory/Chest: no accessory muscle use, decreased breath sounds Cardiovascular: regular rhythm, no JVD, tachycardia, sternal wires exposed, chest wall at the site TTP Abdomen: normal bowel sounds, no organomegaly, non distended Extremities: no edema, pedal pulses normal, LLE with chronic wound, no signs of infection 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: abnormal gait, awake, alert, oriented x 3, responsive Laboratory Tests 01/16/19 04:45: White Blood Count 7.3, Red Blood Count 4.12L, Hemoglobin 10.2L, Hematocrit 32.8L , Mean Corpuscular Volume 80, Mean Corpuscular Hemoglobin 24.8L, Mean Corpuscular Hemoglobin Concent 31.1L, Red Cell Distribution Width 16.2H, Platelet Count 490H, Mean Platelet Volume 5.8L, Neutrophils (%) (Auto) 51.4, Lymphocytes (%) (Auto) 25.4, Monocytes (%) (Auto) 13.5H, Eosinophils (%) (Auto) 8.7H, Basophils (%) (Auto) 1.0, Sodium Level 139, Potassium Level 4.1, Chloride Level 105, Carbon Dioxide Level 27, Anion Gap 7, Blood Urea Nitrogen 12, Creatinine 1.4H, Estimat Glomerular Filtration Rate > 60, Glucose Level 86, Calcium Level 8.3L Current Medications Medications (Trade) Dose Ordered Sig/Aminata Route PRN Reason Start Time Stop Time Status Last Admin Dose Admin Acetaminophen (Tylenol) 650 mg Q6H PRN ORAL Mild Pain/Temp > 100.5 01/11/19 15:27 02/10/19 15:26 01/12/19 20:57 Acetylcysteine (Mucomyst) 100 mg TIDRT HHN 01/11/19 19:00 01/26/19 12:59 01/14/19 13:20 Amlodipine Besylate (Norvasc) 10 mg DAILY ORAL 01/12/19 09:00 01/21/19 08:59 01/15/19 09:04 Budesonide (Pulmicort) 0.25 mg Q12HRT N 01/11/19 22:00 02/02/19 21:59 01/15/19 11:32 Clopidogrel Bisulfate (Plavix) 75 mg DAILY ORAL 01/12/19 09:00 01/21/19 08:59 01/15/19 09:04 Dextrose (Dextrose 50%) 25 ml Q30M PRN IV Hypoglycemia 01/11/19 15:30 01/21/19 07:29 Dextrose (Dextrose 50%) 50 ml Q30M PRN IV Hypoglycemia 01/11/19 15:30 01/21/19 07:29 Heparin Sodium (Porcine) (Heparin 5000 units/ml) 5,000 units EVERY 12 HOURS SUBQ 01/11/19 21:00 01/21/19 08:59 01/14/19 20:29 Hydromorphone HCl (Dilaudid) 3 mg Q3H PRN IVP Severe Pain (Pain Scale 7-10) 01/14/19 17:15 01/21/19 17:14 01/16/19 07:09 Levalbuterol HCl (Xopenex) 1.25 mg TIDPRN PRN HHN Shortness of Breath 01/14/19 08:30 01/19/19 08:29 01/14/19 13:20 Levetiracetam (Keppra) 250 mg Q12HR ORAL 01/11/19 21:00 01/30/19 08:59 01/15/19 20:29 Mirtazapine (Remeron) 45 mg BEDTIME ORAL 01/11/19 21:00 02/09/19 20:59 01/15/19 20:29 Ondansetron HCl (Zofran) 4 mg Q6H PRN IVP Nausea & Vomiting 01/11/19 15:30 01/21/19 15:29 Kristine Black NP Jan 16, 2019 07:26
--- NOTE | 2019-01-16 07:40 | NUR ---
NURSE NOTES: Received patient on bed, asleep. IV site intact and patent. Bed in low and locked position, call light within reach. No signs of respiratory distress or pain. Room board updated, will continue to monitor.
[2019-01-16 08:00] VITALS: BP 105/69
--- NOTE | 2019-01-16 08:52 | General Progress Note ---
Assessment/Plan Problem List: (1) Acute and chronic respiratory failure ICD Codes: J96.20 - Acute and chronic respiratory failure, unspecified whether with hypoxia or hypercapnia SNOMED: 42122774 (2) Chest pain ICD Codes: R07.9 - Chest pain, unspecified SNOMED: 08239047 Qualifiers: Qualified Codes: R07.9 - Chest pain, unspecified (3) HTN (hypertension) ICD Codes: I10 - Hypertension SNOMED: 65655958 (4) COPD exacerbation ICD Codes: J44.1 - Obstructive chronic bronchitis with exacerbation SNOMED: 152866491 (5) Acute CHF (congestive heart failure) ICD Codes: I50.9 - Heart failure, unspecified SNOMED: 90027669 Qualifiers: Qualified Codes: I50.9 - Heart failure, unspecified Status: unchanged Assessment/Plan o2 pulmt x pt diet cbc bmp am dc to snf if clear Subjective Constitutional: Reports: weakness Allergies: Coded Allergies: EGG (Verified Allergy, Unknown, 09/28/18) MEPERIDINE (Verified Allergy, Unknown, 09/28/18) MORPHINE (Verified Allergy, Unknown, 09/28/18) NITROGLYCERIN (Verified Allergy, Unknown, hives, 09/28/18) All Systems: reviewed and negative except above Subjective o2nc sleepy in bed Objective Last 24 Hour Vital Signs Date Time Temp Pulse Resp B/P (MAP) Pulse Ox O2 Delivery O2 Flow Rate FiO2 01/16/19 07:59 Room Air 21 01/16/19 07:59 94 Room Air 21 01/16/19 07:59 Room Air 01/16/19 07:59 Room Air 01/16/19 04:39 98.3 01/16/19 04:00 98.3 102 18 145/82 (103) 93 01/16/19 00:00 97.9 110 18 117/76 (90) 93 01/15/19 21:26 Room Air 01/15/19 21:26 Room Air 01/15/19 21:00 Room Air 01/15/19 20:00 97.9 106 17 127/74 (91) 93 01/15/19 19:00 Room Air 01/15/19 19:00 Room Air 01/15/19 19:00 Room Air 01/15/19 19:00 Room Air 01/15/19 16:00 97.2 106 20 115/74 (88) 98 2/22/19 13:13 Room Air 21 01/15/19 13:13 Room Air 21 01/15/19 12:00 98.4 120 18 113/95 (101) 96 01/15/19 11:39 115 18 99 Nasal Cannula 2.0 28 01/15/19 11:32 91 Room Air 01/15/19 11:32 119 20 92 Room Air 01/15/19 11:32 Room Air 01/15/19 11:06 Room Air 01/15/19 11:06 Room Air 01/15/19 09:04 110 135/64 01/15/19 09:00 Room Air Intake and Output 01/15/19 01/16/19 18:59 06:59 Output Total 1400 ml 300 ml Balance -1400 ml -300 ml Output Urine Total 1400 ml 300 ml Laboratory Tests 01/16/19 04:45: White Blood Count 7.3, Red Blood Count 4.12L, Hemoglobin 10.2L, Hematocrit 32.8L , Mean Corpuscular Volume 80, Mean Corpuscular Hemoglobin 24.8L, Mean Corpuscular Hemoglobin Concent 31.1L, Red Cell Distribution Width 16.2H, Platelet Count 490H, Mean Platelet Volume 5.8L, Neutrophils (%) (Auto) 51.4, Lymphocytes (%) (Auto) 25.4, Monocytes (%) (Auto) 13.5H, Eosinophils (%) (Auto) 8.7H, Basophils (%) (Auto) 1.0, Sodium Level 139, Potassium Level 4.1, Chloride Level 105, Carbon Dioxide Level 27, Anion Gap 7, Blood Urea Nitrogen 12, Creatinine 1.4H, Estimat Glomerular Filtration Rate > 60, Glucose Level 86, Calcium Level 8.3L Height (Feet): 6 Height (Inches): 1.00 Weight (Pounds): 125 General Appearance: lethargic EENT: normal ENT inspection Neck: normal alignment Cardiovascular: normal peripheral pulses, normal rate, regular rhythm Respiratory/Chest: chest wall non-tender, lungs clear, normal breath sounds Abdomen: normal bowel sounds, non tender, soft Extremities: normal inspection Edema: no edema noted Arm (L), no edema noted Arm (R), no edema noted Leg (L), no edema noted Leg (R), no edema noted Pedal (L), no edema noted Pedal (R), no edema noted Generalized Neurologic: motor weakness Skin: normal pigmentation, warm/dry Fabio Tracey DO Jan 16, 2019 08:52
[2019-01-16] MEDS: Heparin 5000 units/ml inj SUBQ SCH ×2 (09:00→20:48)
--- NOTE | 2019-01-16 09:00 | NUR ---
NURSE NOTES: Patient refused heparin scheduled dose. Risks versus benefits explained.
[2019-01-16] MEDS: Budesonide HHN 0.25mg/2ml ud HHN SCH ×2 (10:00→22:00)
--- NOTE | 2019-01-16 11:08 | Infectious Diseases Prog Note ---
Assessment/Plan Assessment/Plan 68 yo male with PMHx of COPD and CHF who presented to the ED on 12/21/18 with CP , SOB, N/V but no diarrhea. Sepsis- 2ry to PNA, s/p rx Leukocytosis, SP -01/12 CXR: Minimally improved but persistent bilateral basilar consolidation , left greater than right, over 7 days. Persistent right upper lobe patchy infiltrates Stable small left pleural effusion. -01/05 CXR: Left basilar infiltrate, likely pneumonia. More questionable right infrahilar infiltrate. Probable left pleural effusion. Possible mild congestive changes /10 u/a neg -influenza sc neg Fever, ;recurrent low grade COPD Exacerbation -12/28 CXR: Slightly increasing interstitial markings bilaterally may be reflective developing mild interstitial edema or pneumonitis. Correlate clinically S/P Tx with Abx and Steroids Right ankle ulcers Do not appear to be infected. N/V - Resolved CHF HTN Hx of CAD - s/p CABG Plan - Continue to monitor off abx unless ongoing fevers, increasing WBC and/or HD instability -01/10 SP IV Vancomycin #8 -01/09 SP Cefepime #5 -01/05 SP Ceftriaxone #3 - 12/25/18 S/P Zosyn #4 -Cdiff if diarrhea -aspiration precautions -wound care Thank you for this consult. We will continue to follow the patient during this hospitalization. Subjective Allergies: Coded Allergies: EGG (Verified Allergy, Unknown, 09/28/18) MEPERIDINE (Verified Allergy, Unknown, 09/28/18) MORPHINE (Verified Allergy, Unknown, 09/28/18) NITROGLYCERIN (Verified Allergy, Unknown, hives, 09/28/18) Subjective afebrile >72hr at RA off abx discharge planning Objective Vital Signs Last 24 Hour Vital Signs Date Time Temp Pulse Resp B/P (MAP) Pulse Ox O2 Delivery O2 Flow Rate FiO2 01/16/19 10:16 Room Air 01/16/19 10:16 Room Air 01/16/19 09:00 100 105/69 01/16/19 09:00 Room Air 01/16/19 08:00 98.0 100 20 105/69 (81) 90 01/16/19 07:59 Room Air 21 01/16/19 07:59 94 Room Air 21 01/16/19 07:59 Room Air 01/16/19 07:59 Room Air 01/16/19 04:39 98.3 01/16/19 04:00 98.3 102 18 145/82 (103) 93 01/16/19 00:00 97.9 110 18 117/76 (90) 93 01/15/19 21:26 Room Air 01/15/19 21:26 Room Air 01/15/19 21:00 Room Air 01/15/19 20:00 97.9 106 17 127/74 (91) 93 01/15/19 19:00 Room Air 01/15/19 19:00 Room Air 01/15/19 19:00 Room Air 01/15/19 19:00 Room Air 01/15/19 16:00 97.2 106 20 115/74 (88) 98 01/15/19 13:13 Room Air 01/15/19 13:13 Room Air 21 01/15/19 12:00 98.4 120 18 113/95 (101) 96 01/15/19 11:39 115 18 99 Nasal Cannula 2.0 28 01/15/19 11:32 91 Room Air 01/15/19 11:32 119 20 92 Room Air 21 01/15/19 11:32 Room Air 21 01/15/19 11:06 Room Air 21 01/15/19 11:06 Room Air 21 Height (Feet): 6 Height (Inches): 1.00 Weight (Pounds): 125 Objective Gen: NAD, well appearing, alert HEENT: NCAT, MMM, EOMI, PERRL, No Oral lesion, no scleral icterus NECK: full range of motion, supple, no meningismus, No LAD, No JVD LUNGS: CTAB, No W/C, No Accessory muscle use CARDS: RRR, S1, S2, No M/R/G, ABD: Soft, NT, ND, No R/G, + BS, No HSM, No Masses : Deferred Ext: right ankle with two shallow ulcers, No surrounding erythema no purulence , Pulses 2+ B/L (DP, Rad): NEURO: A/O x 4, Strength and Sensation Grossly intact PSYCH: Mood/affect normal SKIN: Warm/dry, No rashes Laboratory Tests Test 01/16/19 04:45 White Blood Count 7.3 K/UL (4.8-10.8) Red Blood Count 4.12 M/UL (4.70-6.10) L Hemoglobin 10.2 G/DL (14.2-18.0) L Hematocrit 32.8 % (42.0-52.0) L Mean Corpuscular Volume 80 FL (80-99) Mean Corpuscular Hemoglobin 24.8 PG (27.0-31.0) L Mean Corpuscular Hemoglobin Concent 31.1 G/DL (32.0-36.0) L Red Cell Distribution Width 16.2 % (11.6-14.8) H Platelet Count 490 K/UL (150-450) H Mean Platelet Volume 5.8 FL (6.5-10.1) L Neutrophils (%) (Auto) 51.4 % (45.0-75.0) Lymphocytes (%) (Auto) 25.4 % (20.0-45.0) Monocytes (%) (Auto) 13.5 % (1.0-10.0) H Eosinophils (%) (Auto) 8.7 % (0.0-3.0) H Basophils (%) (Auto) 1.0 % (0.0-2.0) Sodium Level 139 MMOL/L (136-145) Potassium Level 4.1 MMOL/L (3.5-5.1) Chloride Level 105 MMOL/L (98-107) Carbon Dioxide Level 27 MMOL/L (21-32) Anion Gap 7 mmol/L (5-15) Blood Urea Nitrogen 12 mg/dL (7-18) Creatinine 1.4 MG/DL (0.55-1.30) H Estimat Glomerular Filtration Rate > 60 mL/min (>60) Glucose Level 86 MG/DL (74-106) Calcium Level 8.3 MG/DL (8.5-10.1) L Current Medications Medications (Trade) Dose Ordered Sig/Aminata Route PRN Reason Start Time Stop Time Status Last Admin Dose Admin Acetaminophen (Tylenol) 650 mg Q6H PRN ORAL Mild Pain/Temp > 100.5 01/11/19 15:27 02/10/19 15:26 01/12/19 20:57 Acetylcysteine (Mucomyst) 100 mg TIDRT HHN 01/11/19 19:00 01/26/19 12:59 01/14/19 13:20 Amlodipine Besylate (Norvasc) 10 mg DAILY ORAL 01/12/19 09:00 01/21/19 08:59 01/15/19 09:04 Budesonide (Pulmicort) 0.25 mg Q12HRT HHN 01/11/19 22:00 02/02/19 21:59 01/15/19 11:32 Clopidogrel Bisulfate (Plavix) 75 mg DAILY ORAL 01/12/19 09:00 01/21/19 08:59 01/16/19 08:54 Dextrose (Dextrose 50%) 25 ml Q30M PRN IV Hypoglycemia 01/11/19 15:30 01/21/19 07:29 Dextrose (Dextrose 50%) 50 ml Q30M PRN IV Hypoglycemia 01/11/19 15:30 01/21/19 07:29 Heparin Sodium (Porcine) (Heparin 5000 units/ml) 5,000 units EVERY 12 HOURS SUBQ 01/11/19 21:00 01/21/19 08:59 01/14/19 20:29 Hydromorphone HCl (Dilaudid) 3 mg Q3H PRN IVP Severe Pain (Pain Scale 7-10) 01/14/19 17:15 01/21/19 17:14 01/16/19 10:14 Levalbuterol HCl (Xopenex) 1.25 mg TIDPRN PRN HHN Shortness of Breath 01/14/19 08:30 01/19/19 08:29 01/14/19 13:20 Levetiracetam (Keppra) 250 mg Q12HR ORAL 01/11/19 21:00 01/30/19 08:59 01/16/19 08:54 Mirtazapine (Remeron) 45 mg BEDTIME ORAL 01/11/19 21:00 02/09/19 20:59 01/15/19 20:29 Ondansetron HCl (Zofran) 4 mg Q6H PRN IVP Nausea & Vomiting 01/11/19 15:30 01/21/19 15:29 Jessica Parry M.D. Jan 16, 2019 11:08
[2019-01-16 12:00] VITALS: BP 115/70
[2019-01-16 16:00] VITALS: BP 104/61
--- NOTE | 2019-01-16 19:16 | NUR ---
HAND-OFF: Report given to CHRISTOPHER Edgar.
[2019-01-16] MEDS: Levalbuterol Inh UD 1.25mg/0.5ml HHN PRN (19:18)
--- NOTE | 2019-01-16 19:28 | NUR ---
NURSE NOTES: Received patient in bed, resting and alert X4. Pat. No signs of respiratory distress. IV intact. Bed in lowest position, call light within reach. Will continue to monitor.
[2019-01-16 20:00] VITALS: BP 106/64
[2019-01-17] VITALS: BP 114/58
[2019-01-17 03:48] VITALS: BP 144/88
[2019-01-17 07:01] LABS: BASOPHILS % (AUTO) 1.6 % (0.0-2.0); EOSINOPHILS % (AUTO) 6.5 % (0.0-3.0); HEMATOCRIT 32.8 % (42.0-52.0); HEMOGLOBIN 10.1 G/DL (14.2-18.0); LYMPHOCYTES % (AUTO) 32.4 % (20.0-45.0); MEAN CORPUSCULAR VOLUME 79 FL (80-99); MONOCYTES % (AUTO) 14.8 % (1.0-10.0); NEUTROPHILS % (AUTO) 44.8 % (45.0-75.0); PLATELET COUNT 489 K/UL (150-450); RED BLOOD COUNT 4.16 M/UL (4.70-6.10); RED CELL DISTRIBUTION WIDTH 15.8 % (11.6-14.8); WHITE BLOOD COUNT 7.8 K/UL (4.8-10.8)
[2019-01-17 07:26] LABS: ANION GAP 6 mmol/L (5-15); BLOOD UREA NITROGEN 10 mg/dL (7-18); CALCIUM 8.5 MG/DL (8.5-10.1); CARBON DIOXIDE 28 MMOL/L (21-32); CHLORIDE 103 MMOL/L (98-107); CREATININE 1.4 MG/DL (0.55-1.30); POTASSIUM 4.2 MMOL/L (3.5-5.1); SODIUM 136 MMOL/L (136-145)
--- NOTE | 2019-01-17 07:26 | NUR ---
HAND-OFF: Report given to Harriet Pearson RN.
--- NOTE | 2019-01-17 07:30 | NUR ---
NURSE NOTES: Received patient in bed, awake, alert and oriented x4. Not in acute respiratory/cardiac distress. Pain subsided per patient after pain meds. Will continue to monitor for pain. Bed is in lowest position and locked.Call light within reach. Dressing on the leg intact.Will continue plan of care.
[2019-01-17] MEDS: Levalbuterol Inh UD 1.25mg/0.5ml HHN PRN ×3 (07:43→20:05)
--- NOTE | 2019-01-17 07:43 | General Progress Note ---
Assessment/Plan Problem List: (1) Acute and chronic respiratory failure ICD Codes: J96.20 - Acute and chronic respiratory failure, unspecified whether with hypoxia or hypercapnia SNOMED: 44209014 (2) Chest pain ICD Codes: R07.9 - Chest pain, unspecified SNOMED: 65532206 Qualifiers: Qualified Codes: R07.9 - Chest pain, unspecified (3) HTN (hypertension) ICD Codes: I10 - Hypertension SNOMED: 57454164 (4) COPD exacerbation ICD Codes: J44.1 - Obstructive chronic bronchitis with exacerbation SNOMED: 442145182 (5) Acute CHF (congestive heart failure) ICD Codes: I50.9 - Heart failure, unspecified SNOMED: 96236640 Qualifiers: Qualified Codes: I50.9 - Heart failure, unspecified Status: unchanged Assessment/Plan o2 pulmt x pt diet cbc bmp am dc to snf if clear Subjective Constitutional: Reports: weakness Allergies: Coded Allergies: EGG (Verified Allergy, Unknown, 09/28/18) MEPERIDINE (Verified Allergy, Unknown, 09/28/18) MORPHINE (Verified Allergy, Unknown, 09/28/18) NITROGLYCERIN (Verified Allergy, Unknown, hives, 09/28/18) All Systems: reviewed and negative except above Subjective o2nc sleepy in bed Objective Last 24 Hour Vital Signs Date Time Temp Pulse Resp B/P (MAP) Pulse Ox O2 Delivery O2 Flow Rate FiO2 01/17/19 03:48 97.7 103 16 144/88 (106) 92 01/17/19 00:00 98.4 101 16 114/58 (76) 94 01/16/19 22:31 Room Air 01/16/19 21:00 Room Air 01/16/19 21:00 Room Air 01/16/19 20:00 99.2 107 16 106/64 (78) 92 01/16/19 19:34 104 20 97 Room Air 21 01/16/19 19:23 92 Room Air 21 01/16/19 19:23 Room Air 21 01/16/19 19:19 101 20 92 Room Air 21 01/16/19 16:00 99.3 102 20 104/61 (75) 91 01/16/19 14:00 Room Air 01/16/19 14:00 Room Air 01/16/19 12:00 98.5 104 20 115/70 (85) 90 01/16/19 10:16 Room Air 01/16/19 10:16 Room Air 01/16/19 09:00 100 105/69 01/16/19 09:00 Room Air 01/16/19 08:00 98.0 100 20 105/69 (81) 90 01/16/19 07:59 Room Air 21 01/16/19 07:59 94 Room Air 21 01/16/19 07:59 Room Air 01/16/19 07:59 Room Air Intake and Output 01/16/19 01/17/19 19:00 07:00 Intake Total 720 ml 240 ml Output Total 250 ml Balance 720 ml -10 ml Intake Oral 720 ml 240 ml Output Urine Total 250 ml Laboratory Tests 01/17/19 06:42: White Blood Count 7.8, Red Blood Count 4.16L, Hemoglobin 10.1L, Hematocrit 32.8L , Mean Corpuscular Volume 79L, Mean Corpuscular Hemoglobin 24.3L, Mean Corpuscular Hemoglobin Concent 30.8L, Red Cell Distribution Width 15.8H, Platelet Count 489H, Mean Platelet Volume 6.0L, Neutrophils (%) (Auto) 44.8L, Lymphocytes (%) (Auto) 32.4, Monocytes (%) (Auto) 14.8H, Eosinophils (%) (Auto) 6.5H, Basophils (%) (Auto) 1.6, Sodium Level 136, Potassium Level 4.2, Chloride Level 103, Carbon Dioxide Level 28, Anion Gap 6, Blood Urea Nitrogen 10, Creatinine 1.4H, Estimat Glomerular Filtration Rate > 60, Glucose Level 90, Calcium Level 8.5 Height (Feet): 6 Height (Inches): 1.00 Weight (Pounds): 125 General Appearance: lethargic EENT: normal ENT inspection Neck: normal alignment Cardiovascular: normal peripheral pulses, normal rate, regular rhythm Respiratory/Chest: chest wall non-tender, lungs clear, normal breath sounds Abdomen: normal bowel sounds, non tender, soft Extremities: normal inspection Edema: no edema noted Arm (L), no edema noted Arm (R), no edema noted Leg (L), no edema noted Leg (R), no edema noted Pedal (L), no edema noted Pedal (R), no edema noted Generalized Neurologic: motor weakness Skin: normal pigmentation, warm/dry TraceyFabio Chi-Gina DO Jan 17, 2019 07:43
[2019-01-17 08:00] VITALS: BP 107/60
[2019-01-17] MEDS: Heparin 5000 units/ml inj SUBQ SCH ×3 (09:00→22:06)
--- NOTE | 2019-01-17 09:45 | NUR ---
NURSE NOTES: RN offered heparin SQ injection but patient refused x3. Re-educated on medication. Patient says " I know what it its but I do not want it." RN explained the risks and benefits.Patient denies SOB or leg pain.
[2019-01-17] MEDS: Budesonide HHN 0.25mg/2ml ud HHN SCH ×2 (09:47→22:27)
--- NOTE | 2019-01-17 11:00 | Pulmonology Progress Note ---
Assessment/Plan Assessment/Plan ASSESSMENT COPD exacerbation Acute bronchitis Acute renal failure on chronic kidney disease Visible foreign body in the left sternal area , consistent with sternal wires. HTN CAD with hx of CABG Severe protein calorie malnutrition Chronic right leg ulcer Hypothyroidism Seizure disorder PLAN OF CARE MS floor [id number] to keep pulse ox above 92 % , pulmonary toilet with Levalbuterol prn, closely monitor HR s/p steroid and abx Rx blood cx negative ,influenza screen test negative ,sputum cx negative, urine culture + mixed GPO ID closely follows CT chest with COPD changes ECHO with pEF 55-60% and evidence of moderate pulmonary hypertension likely due to COPD DVT prophylaxis BiPAP at night prn renal ultrasound - no hydronephrosis monitor renal parameters and electrolytes , avoid nephrotoxins . correct electrolytes as needed patient off QUINTEN inhibitor BP management with CC continue Plavix seizure precaution, continue Keppra patient is working with PT nutr recs implemented in POC leg ulcer care supportive care pain management awaiting for placement patient will need removal of sternal wires as outpatient case discussed and evaluated by supervising physician Subjective Allergies: Coded Allergies: EGG (Verified Allergy, Unknown, 09/28/18) MEPERIDINE (Verified Allergy, Unknown, 09/28/18) MORPHINE (Verified Allergy, Unknown, 09/28/18) NITROGLYCERIN (Verified Allergy, Unknown, hives, 09/28/18) Subjective pulse ox stable on RA no signs of resp distress awaiting for placement Objective Last 24 Hour Vital Signs Date Time Temp Pulse Resp B/P (MAP) Pulse Ox O2 Delivery O2 Flow Rate FiO2 01/17/19 09:48 Room Air 01/17/19 09:47 Room Air 01/17/19 09:00 97 107/60 01/17/19 09:00 Room Air 01/17/19 08:00 98.7 97 20 107/60 (76) 92 01/17/19 07:20 Room Air 21 01/17/19 07:20 91 20 99 Room Air 21 01/17/19 07:20 92 20 99 Room Air 21 01/17/19 07:20 99 Room Air 21 01/17/19 03:48 97.7 103 16 144/88 (106) 92 01/17/19 00:00 98.4 101 16 114/58 (76) 94 01/16/19 22:31 Room Air 01/16/19 21:00 Room Air 01/16/19 21:00 Room Air 01/16/19 20:00 99.2 107 16 106/64 (78) 92 01/16/19 19:34 104 20 97 Room Air 21 01/16/19 19:23 92 Room Air 21 01/16/19 19:23 Room Air 21 01/16/19 19:19 101 20 92 Room Air 21 01/16/19 16:00 99.3 102 20 104/61 (75) 91 01/16/19 14:00 Room Air 01/16/19 14:00 Room Air 01/16/19 12:00 98.5 104 20 115/70 (85) 90 Intake and Output 01/16/19 01/17/19 18:59 06:59 Intake Total 720 ml 240 ml Output Total 250 ml Balance 720 ml -10 ml Intake Oral 720 ml 240 ml Output Urine Total 250 ml Objective General Appearance: no acute distress HEENT: normocephalic, atraumatic, anicteric Respiratory/Chest: no accessory muscle use, decreased breath sounds Cardiovascular: regular rhythm, no JVD, tachycardia, sternal wires exposed, chest wall at the site TTP Abdomen: normal bowel sounds, no organomegaly, non distended Extremities: no edema, pedal pulses normal, LLE with chronic wound, no signs of infection 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: abnormal gait, awake, alert, oriented x 3, responsive Laboratory Tests 01/17/19 06:42: White Blood Count 7.8, Red Blood Count 4.16L, Hemoglobin 10.1L, Hematocrit 32.8L , Mean Corpuscular Volume 79L, Mean Corpuscular Hemoglobin 24.3L, Mean Corpuscular Hemoglobin Concent 30.8L, Red Cell Distribution Width 15.8H, Platelet Count 489H, Mean Platelet Volume 6.0L, Neutrophils (%) (Auto) 44.8L, Lymphocytes (%) (Auto) 32.4, Monocytes (%) (Auto) 14.8H, Eosinophils (%) (Auto) 6.5H, Basophils (%) (Auto) 1.6, Sodium Level 136, Potassium Level 4.2, Chloride Level 103, Carbon Dioxide Level 28, Anion Gap 6, Blood Urea Nitrogen 10, Creatinine 1.4H, Estimat Glomerular Filtration Rate > 60, Glucose Level 90, Calcium Level 8.5 Current Medications Medications (Trade) Dose Ordered Sig/Aminata Route PRN Reason Start Time Stop Time Status Last Admin Dose Admin Acetaminophen (Tylenol) 650 mg Q6H PRN ORAL Mild Pain/Temp > 100.5 01/11/19 15:27 02/10/19 15:26 01/12/19 20:57 Acetylcysteine (Mucomyst) 100 mg TIDRT HHN 01/11/19 19:00 01/26/19 12:59 01/17/19 07:43 Amlodipine Besylate (Norvasc) 10 mg DAILY ORAL 01/12/19 09:00 01/21/19 08:59 01/15/19 09:04 Budesonide (Pulmicort) 0.25 mg Q12HRT N 01/11/19 22:00 02/02/19 21:59 01/15/19 11:32 Clopidogrel Bisulfate (Plavix) 75 mg DAILY ORAL 01/12/19 09:00 01/21/19 08:59 01/17/19 09:42 Dextrose (Dextrose 50%) 25 ml Q30M PRN IV Hypoglycemia 01/11/19 15:30 01/21/19 07:29 Dextrose (Dextrose 50%) 50 ml Q30M PRN IV Hypoglycemia 01/11/19 15:30 01/21/19 07:29 Heparin Sodium (Porcine) (Heparin 5000 units/ml) 5,000 units EVERY 12 HOURS SUBQ 01/11/19 21:00 01/21/19 08:59 01/16/19 20:48 Hydromorphone HCl (Dilaudid) 3 mg Q3H PRN IVP Severe Pain (Pain Scale 7-10) 01/14/19 17:15 01/21/19 17:14 01/17/19 09:43 Levalbuterol HCl (Xopenex) 1.25 mg TIDPRN PRN HHN Shortness of Breath 01/14/19 08:30 01/19/19 08:29 01/17/19 07:43 Levetiracetam (Keppra) 250 mg Q12HR ORAL 01/11/19 21:00 01/30/19 08:59 01/17/19 09:42 Mirtazapine (Remeron) 45 mg BEDTIME ORAL 01/11/19 21:00 02/09/19 20:59 01/16/19 20:47 Ondansetron HCl (Zofran) 4 mg Q6H PRN IVP Nausea & Vomiting 01/11/19 15:30 01/21/19 15:29 Kristine Black NP Jan 17, 2019 11:00
[2019-01-17 12:00] VITALS: BP 122/68
--- NOTE | 2019-01-17 15:08 | NUR ---
CASE MANAGEMENT: REVIEW SI: CHF EXACERBATION T 98.5 HR 102 RR 18 BP 122/68 SAT 97% ROOM AIR H/H 10.1/32.8 CR 1.4 IS: NORVASC PO QD KEPPRA PO Q12HR PLAVIX PO QD PULMICORT HHN Q12HR XOPENEX HHN TID PRN MED/SURG STATUS DCP: PATIENT IS FROM HOME.
--- NOTE | 2019-01-17 15:10 | NUR ---
CASE MANAGEMENT: DCPNOTE PER GARETH WEINBERG IAMaira [phone] PATIENT NOT ACCEPTED TO THE FACILITY
[2019-01-17 16:00] VITALS: BP 114/68
--- NOTE | 2019-01-17 19:20 | NUR ---
NURSE NOTES: Pt received sitting in semi fowlers. He complained of some pain but acknowledged his pain medication was not due yet. Pt was resting comfortably in no acute distress upright in bed. Bed was locked in the lowest position, side rails x2, seizure precautions with padded side rails. 24 g IV in right wrist is patent and flushes well, intact. Will continue to monitor.
--- NOTE | 2019-01-17 19:29 | NUR ---
HAND-OFF: Report given to Vamsi.
[2019-01-17 20:00] VITALS: BP 116/93
[2019-01-18] VITALS: BP 110/61
[2019-01-18 04:00] VITALS: BP 113/63
--- NOTE | 2019-01-18 04:44 | NUR ---
NURSE NOTES: Pt O2 sat was at 90%. Applied O2 nasal cannula while pt sleeps and will continue to monitor.
--- NOTE | 2019-01-18 07:46 | NUR ---
HAND-OFF: Report given to Whit WHITE.
[2019-01-18 08:00] VITALS: BP 118/70
[2019-01-18 08:34] LABS: BASOPHILS % (AUTO) 2.1 % (0.0-2.0); EOSINOPHILS % (AUTO) 6.2 % (0.0-3.0); HEMATOCRIT 32.5 % (42.0-52.0); HEMOGLOBIN 9.9 G/DL (14.2-18.0); LYMPHOCYTES % (AUTO) 22.9 % (20.0-45.0); MEAN CORPUSCULAR VOLUME 81 FL (80-99); MONOCYTES % (AUTO) 14.3 % (1.0-10.0); NEUTROPHILS % (AUTO) 54.4 % (45.0-75.0); PLATELET COUNT 412 K/UL (150-450); RED BLOOD COUNT 4.04 M/UL (4.70-6.10); RED CELL DISTRIBUTION WIDTH 16.4 % (11.6-14.8); WHITE BLOOD COUNT 7.1 K/UL (4.8-10.8)
--- NOTE | 2019-01-18 08:38 | NUR ---
NURSE NOTES: Patient is asleep, no s/s of distress. Side rail are up x3. Bed is locked, in lowest position, and call light is within reach. Will continue to monitor.
[2019-01-18 08:46] LABS: ANION GAP 8 mmol/L (5-15); BLOOD UREA NITROGEN 11 mg/dL (7-18); CALCIUM 8.4 MG/DL (8.5-10.1); CARBON DIOXIDE 26 MMOL/L (21-32); CHLORIDE 104 MMOL/L (98-107); CREATININE 1.4 MG/DL (0.55-1.30); POTASSIUM 4.5 MMOL/L (3.5-5.1); SODIUM 138 MMOL/L (136-145)
[2019-01-18] MEDS: Heparin 5000 units/ml inj SUBQ SCH ×2 (08:59→21:00)
[2019-01-18] MEDS: Levalbuterol Inh UD 1.25mg/0.5ml HHN PRN ×2 (09:18→14:15)
[2019-01-18] MEDS: Budesonide HHN 0.25mg/2ml ud HHN SCH ×2 (09:18→22:00)
--- NOTE | 2019-01-18 11:54 | Infectious Diseases Prog Note ---
Assessment/Plan Assessment/Plan 68 yo male with PMHx of COPD and CHF who presented to the ED on 12/21/18 with CP , SOB, N/V but no diarrhea. Sepsis- 2ry to PNA, s/p rx Leukocytosis, SP -01/12 CXR: Minimally improved but persistent bilateral basilar consolidation , left greater than right, over 7 days. Persistent right upper lobe patchy infiltrates Stable small left pleural effusion. -01/05 CXR: Left basilar infiltrate, likely pneumonia. More questionable right infrahilar infiltrate. Probable left pleural effusion. Possible mild congestive changes /10 u/a neg -influenza sc neg Fever, ;recurrent low grade- SP COPD Exacerbation -12/28 CXR: Slightly increasing interstitial markings bilaterally may be reflective developing mild interstitial edema or pneumonitis. Correlate clinically S/P Tx with Abx and Steroids Right ankle ulcers Do not appear to be infected. N/V - Resolved CHF HTN Hx of CAD - s/p CABG Plan - Continue to monitor off abx unless ongoing fevers, increasing WBC and/or HD instability -01/10 SP IV Vancomycin #8 -01/09 SP Cefepime #5 -01/05 SP Ceftriaxone #3 - 12/25/18 S/P Zosyn #4 -Cdiff if diarrhea -aspiration precautions -wound care Thank you for this consult. We will continue to follow the patient during this hospitalization. Subjective Allergies: Coded Allergies: EGG (Verified Allergy, Unknown, 09/28/18) MEPERIDINE (Verified Allergy, Unknown, 09/28/18) MORPHINE (Verified Allergy, Unknown, 09/28/18) NITROGLYCERIN (Verified Allergy, Unknown, hives, 09/28/18) Subjective afebrile at RA off abx discharge planning Objective Vital Signs Last 24 Hour Vital Signs Date Time Temp Pulse Resp B/P (MAP) Pulse Ox O2 Delivery O2 Flow Rate FiO2 01/18/19 09:19 99 20 97 Nasal Cannula 2.0 28 01/18/19 09:17 99 20 97 Nasal Cannula 2.0 28 01/18/19 09:16 97 Nasal Cannula 2.0 28 01/18/19 09:16 Nasal Cannula 2.0 28 01/18/19 08:56 101 118/70 01/18/19 08:00 98.2 101 20 118/70 (86) 97 01/18/19 08:00 Room Air 01/18/19 04:00 97.5 107 18 113/63 (80) 90 01/18/19 00:00 98.9 122 16 110/61 (77) 92 01/17/19 22:00 99 20 97 Room Air 21 01/17/19 21:50 95 20 94 Room Air 21 01/17/19 21:00 Room Air 01/17/19 20:00 Room Air 21 01/17/19 20:00 93 Room Air 21 01/17/19 20:00 99 20 95 Room Air 21 01/17/19 20:00 99.0 99 18 116/93 (101) 90 01/17/19 19:50 98 20 93 Room Air 21 01/17/19 16:00 98.7 117 19 114/68 (83) 95 01/17/19 13:15 93 20 99 Room Air 21 01/17/19 13:15 93 20 99 Room Air 21 01/17/19 12:00 98.5 102 18 122/68 (86) 97 Height (Feet): 6 Height (Inches): 1.00 Weight (Pounds): 125 Objective Gen: NAD, well appearing, alert HEENT: NCAT, MMM, EOMI, PERRL, No Oral lesion, no scleral icterus NECK: full range of motion, supple, no meningismus, No LAD, No JVD LUNGS: CTAB, No W/C, No Accessory muscle use CARDS: RRR, S1, S2, No M/R/G, ABD: Soft, NT, ND, No R/G, + BS, No HSM, No Masses : Deferred Ext: right ankle with two shallow ulcers, No surrounding erythema no purulence , Pulses 2+ B/L (DP, Rad): NEURO: A/O x 4, Strength and Sensation Grossly intact PSYCH: Mood/affect normal SKIN: Warm/dry, No rashes Laboratory Tests Test 01/18/19 08:15 White Blood Count 7.1 K/UL (4.8-10.8) Red Blood Count 4.04 M/UL (4.70-6.10) L Hemoglobin 9.9 G/DL (14.2-18.0) L Hematocrit 32.5 % (42.0-52.0) L Mean Corpuscular Volume 81 FL (80-99) Mean Corpuscular Hemoglobin 24.6 PG (27.0-31.0) L Mean Corpuscular Hemoglobin Concent 30.5 G/DL (32.0-36.0) L Red Cell Distribution Width 16.4 % (11.6-14.8) H Platelet Count 412 K/UL (150-450) Mean Platelet Volume 5.2 FL (6.5-10.1) L Neutrophils (%) (Auto) 54.4 % (45.0-75.0) Lymphocytes (%) (Auto) 22.9 % (20.0-45.0) Monocytes (%) (Auto) 14.3 % (1.0-10.0) H Eosinophils (%) (Auto) 6.2 % (0.0-3.0) H Basophils (%) (Auto) 2.1 % (0.0-2.0) H Sodium Level 138 MMOL/L (136-145) Potassium Level 4.5 MMOL/L (3.5-5.1) Chloride Level 104 MMOL/L (98-107) Carbon Dioxide Level 26 MMOL/L (21-32) Anion Gap 8 mmol/L (5-15) Blood Urea Nitrogen 11 mg/dL (7-18) Creatinine 1.4 MG/DL (0.55-1.30) H Estimat Glomerular Filtration Rate > 60 mL/min (>60) Glucose Level 95 MG/DL (74-106) Calcium Level 8.4 MG/DL (8.5-10.1) L Current Medications Medications (Trade) Dose Ordered Sig/Aminata Route PRN Reason Start Time Stop Time Status Last Admin Dose Admin Acetaminophen (Tylenol) 650 mg Q6H PRN ORAL Mild Pain/Temp > 100.5 01/11/19 15:27 02/10/19 15:26 01/12/19 20:57 Acetylcysteine (Mucomyst) 100 mg TIDRT N 01/11/19 19:00 01/26/19 12:59 01/18/19 09:18 Amlodipine Besylate (Norvasc) 10 mg DAILY ORAL 01/12/19 09:00 01/21/19 08:59 01/18/19 08:56 Budesonide (Pulmicort) 0.25 mg Q12HRT [facility] 01/11/19 22:00 02/02/19 21:59 01/18/19 09:18 Clopidogrel Bisulfate (Plavix) 75 mg DAILY ORAL 01/12/19 09:00 01/21/19 08:59 01/18/19 08:56 Dextrose (Dextrose 50%) 25 ml Q30M PRN IV Hypoglycemia 01/11/19 15:30 01/21/19 07:29 Dextrose (Dextrose 50%) 50 ml Q30M PRN IV Hypoglycemia 01/11/19 15:30 01/21/19 07:29 Heparin Sodium (Porcine) (Heparin 5000 units/ml) 5,000 units EVERY 12 HOURS SUBQ 01/11/19 21:00 01/21/19 08:59 01/16/19 20:48 Hydromorphone HCl (Dilaudid) 3 mg Q3H PRN IVP Severe Pain (Pain Scale 7-10) 01/14/19 17:15 01/21/19 17:14 01/18/19 09:59 Levalbuterol HCl (Xopenex) 1.25 mg TIDPRN PRN HHN Shortness of Breath 01/17/19 11:00 01/22/19 10:59 01/18/19 09:18 Levetiracetam (Keppra) 250 mg Q12HR ORAL 01/11/19 21:00 01/30/19 08:59 01/18/19 08:56 Mirtazapine (Remeron) 45 mg BEDTIME ORAL 01/11/19 21:00 02/09/19 20:59 01/17/19 22:07 Ondansetron HCl (Zofran) 4 mg Q6H PRN IVP Nausea & Vomiting 01/11/19 15:30 01/21/19 15:29 Jessica Parry M.D. Jan 18, 2019 11:54
[2019-01-18 12:00] VITALS: BP 121/73
--- NOTE | 2019-01-18 13:50 | General Progress Note ---
Assessment/Plan Problem List: (1) Acute and chronic respiratory failure ICD Codes: J96.20 - Acute and chronic respiratory failure, unspecified whether with hypoxia or hypercapnia SNOMED: 99227441 (2) Chest pain ICD Codes: R07.9 - Chest pain, unspecified SNOMED: 21170205 Qualifiers: Qualified Codes: R07.9 - Chest pain, unspecified (3) HTN (hypertension) ICD Codes: I10 - Hypertension SNOMED: 87626806 (4) COPD exacerbation ICD Codes: J44.1 - Obstructive chronic bronchitis with exacerbation SNOMED: 211603870 (5) Acute CHF (congestive heart failure) ICD Codes: I50.9 - Heart failure, unspecified SNOMED: 24742228 Qualifiers: Qualified Codes: I50.9 - Heart failure, unspecified Status: unchanged Assessment/Plan o2 pulmt x pt diet cbc bmp am dc to snf if clear Subjective Constitutional: Reports: weakness Allergies: Coded Allergies: EGG (Verified Allergy, Unknown, 09/28/18) MEPERIDINE (Verified Allergy, Unknown, 09/28/18) MORPHINE (Verified Allergy, Unknown, 09/28/18) NITROGLYCERIN (Verified Allergy, Unknown, hives, 09/28/18) All Systems: reviewed and negative except above Subjective o2nc sleepy in bed Objective Last 24 Hour Vital Signs Date Time Temp Pulse Resp B/P (MAP) Pulse Ox O2 Delivery O2 Flow Rate FiO2 01/18/19 09:19 99 20 97 Nasal Cannula 2.0 28 01/18/19 09:17 99 20 97 Nasal Cannula 2.0 28 01/18/19 09:16 97 Nasal Cannula 2.0 28 01/18/19 09:16 Nasal Cannula 2.0 28 01/18/19 08:56 101 118/70 01/18/19 08:00 98.2 101 20 118/70 (86) 97 01/18/19 08:00 Room Air 01/18/19 04:00 97.5 107 18 113/63 (80) 90 01/18/19 00:00 98.9 122 16 110/61 (77) 92 01/17/19 22:00 99 20 97 Room Air 21 01/17/19 21:50 95 20 94 Room Air 21 01/17/19 21:00 Room Air 01/17/19 20:00 Room Air 21 01/17/19 20:00 93 Room Air 21 01/17/19 20:00 99 20 95 Room Air 21 01/17/19 20:00 99.0 99 18 116/93 (101) 90 01/17/19 19:50 98 20 93 Room Air 21 01/17/19 16:00 98.7 117 19 114/68 (83) 95 Intake and Output 01/17/19 01/18/19 18:59 06:59 Output Total 825 ml Balance -825 ml Output Urine Total 825 ml Laboratory Tests 01/18/19 08:15: White Blood Count 7.1, Red Blood Count 4.04L, Hemoglobin 9.9L, Hematocrit 32.5L , Mean Corpuscular Volume 81, Mean Corpuscular Hemoglobin 24.6L, Mean Corpuscular Hemoglobin Concent 30.5L, Red Cell Distribution Width 16.4H, Platelet Count 412, Mean Platelet Volume 5.2L, Neutrophils (%) (Auto) 54.4, Lymphocytes (%) (Auto) 22.9, Monocytes (%) (Auto) 14.3H, Eosinophils (%) (Auto) 6.2H, Basophils (%) (Auto) 2.1H, Sodium Level 138, Potassium Level 4.5, Chloride Level 104, Carbon Dioxide Level 26, Anion Gap 8, Blood Urea Nitrogen 11 , Creatinine 1.4H, Estimat Glomerular Filtration Rate > 60, Glucose Level 95, Calcium Level 8.4L Height (Feet): 6 Height (Inches): 1.00 Weight (Pounds): 125 General Appearance: lethargic EENT: normal ENT inspection Neck: normal alignment Cardiovascular: normal peripheral pulses, normal rate, regular rhythm Respiratory/Chest: chest wall non-tender, lungs clear, normal breath sounds Abdomen: normal bowel sounds, non tender, soft Extremities: normal inspection Edema: no edema noted Arm (L), no edema noted Arm (R), no edema noted Leg (L), no edema noted Leg (R), no edema noted Pedal (L), no edema noted Pedal (R), no edema noted Generalized Neurologic: motor weakness Skin: normal pigmentation, warm/dry Fabio Tracey DO Jan 18, 2019 13:50
--- NOTE | 2019-01-18 14:26 | Pulmonology Progress Note ---
Assessment/Plan Problems: (1) Nosocomial pneumonia (2) COPD exacerbation (3) Acute bronchitis (4) Hypothyroidism (5) CAD (coronary artery disease) (6) Severe protein-calorie malnutrition (7) Chronic ulcer of right leg Assessment/Plan all reviewed in better mood no new complains feeling better but lower than yesterday no new complains renal f/u respiratory treatment wound care doing better all reviewed Subjective ROS Limited/Unobtainable: No Allergies: Coded Allergies: EGG (Verified Allergy, Unknown, 09/28/18) MEPERIDINE (Verified Allergy, Unknown, 09/28/18) MORPHINE (Verified Allergy, Unknown, 09/28/18) NITROGLYCERIN (Verified Allergy, Unknown, hives, 09/28/18) Objective Last 24 Hour Vital Signs Date Time Temp Pulse Resp B/P (MAP) Pulse Ox O2 Delivery O2 Flow Rate FiO2 01/18/19 13:58 Room Air 01/18/19 13:56 Room Air 01/18/19 09:27 98 20 97 Room Air 01/18/19 09:27 98 20 96 Room Air 01/18/19 09:19 99 20 97 Nasal Cannula 2.0 28 01/18/19 09:17 99 20 97 Nasal Cannula 2.0 28 01/18/19 09:16 97 Nasal Cannula 2.0 28 01/18/19 09:16 Nasal Cannula 2.0 28 01/18/19 08:56 101 118/70 01/18/19 08:00 98.2 101 20 118/70 (86) 97 01/18/19 08:00 Room Air 01/18/19 04:00 97.5 107 18 113/63 (80) 90 01/18/19 00:00 98.9 122 16 110/61 (77) 92 01/17/19 22:00 99 20 97 Room Air 21 01/17/19 21:50 95 20 94 Room Air 21 01/17/19 21:00 Room Air 01/17/19 20:00 Room Air 21 01/17/19 20:00 93 Room Air 21 01/17/19 20:00 99 20 95 Room Air 21 01/17/19 20:00 99.0 99 18 116/93 (101) 90 01/17/19 19:50 98 20 93 Room Air 21 01/17/19 16:00 98.7 117 19 114/68 (83) 95 Intake and Output 01/17/19 01/18/19 18:59 06:59 Output Total 825 ml Balance -825 ml Output Urine Total 825 ml Objective General Appearance: cachectic HEENT: normocephalic Respiratory/Chest: chest wall non-tender, lungs clear, decrease breath sounds Cardiovascular: normal peripheral pulses, normal rate Abdomen: normal bowel sounds, soft, non tender Extremities: no cyanosis Skin: no rash Laboratory Tests 01/18/19 08:15: White Blood Count 7.1, Red Blood Count 4.04L, Hemoglobin 9.9L, Hematocrit 32.5L , Mean Corpuscular Volume 81, Mean Corpuscular Hemoglobin 24.6L, Mean Corpuscular Hemoglobin Concent 30.5L, Red Cell Distribution Width 16.4H, Platelet Count 412, Mean Platelet Volume 5.2L, Neutrophils (%) (Auto) 54.4, Lymphocytes (%) (Auto) 22.9, Monocytes (%) (Auto) 14.3H, Eosinophils (%) (Auto) 6.2H, Basophils (%) (Auto) 2.1H, Sodium Level 138, Potassium Level 4.5, Chloride Level 104, Carbon Dioxide Level 26, Anion Gap 8, Blood Urea Nitrogen 11 , Creatinine 1.4H, Estimat Glomerular Filtration Rate > 60, Glucose Level 95, Calcium Level 8.4L Current Medications Medications (Trade) Dose Ordered Sig/Aminata Route PRN Reason Start Time Stop Time Status Last Admin Dose Admin Acetaminophen (Tylenol) 650 mg Q6H PRN ORAL Mild Pain/Temp > 100.5 01/11/19 15:27 02/10/19 15:26 01/12/19 20:57 Acetylcysteine (Mucomyst) 100 mg TIDRT [facility] 01/11/19 19:00 01/26/19 12:59 01/18/19 09:18 Amlodipine Besylate (Norvasc) 10 mg DAILY ORAL 01/12/19 09:00 01/21/19 08:59 01/18/19 08:56 Budesonide (Pulmicort) 0.25 mg Q12HRT [facility] 01/11/19 22:00 02/02/19 21:59 01/18/19 09:18 Clopidogrel Bisulfate (Plavix) 75 mg DAILY ORAL 01/12/19 09:00 01/21/19 08:59 01/18/19 08:56 Dextrose (Dextrose 50%) 25 ml Q30M PRN IV Hypoglycemia 01/11/19 15:30 01/21/19 07:29 Dextrose (Dextrose 50%) 50 ml Q30M PRN IV Hypoglycemia 01/11/19 15:30 01/21/19 07:29 Heparin Sodium (Porcine) (Heparin 5000 units/ml) 5,000 units EVERY 12 HOURS SUBQ 01/11/19 21:00 01/21/19 08:59 01/16/19 20:48 Hydromorphone HCl (Dilaudid) 3 mg Q3H PRN IVP Severe Pain (Pain Scale 7-10) 01/14/19 17:15 01/21/19 17:14 01/18/19 13:10 Levalbuterol HCl (Xopenex) 1.25 mg TIDPRN PRN HHN Shortness of Breath 01/17/19 11:00 01/22/19 10:59 01/18/19 09:18 Levetiracetam (Keppra) 250 mg Q12HR ORAL 01/11/19 21:00 01/30/19 08:59 01/18/19 08:56 Mirtazapine (Remeron) 45 mg BEDTIME ORAL 01/11/19 21:00 02/09/19 20:59 01/17/19 22:07 Ondansetron HCl (Zofran) 4 mg Q6H PRN IVP Nausea & Vomiting 01/11/19 15:30 01/21/19 15:29 Jessie Magana MD Jan 18, 2019 14:26
[2019-01-18 16:00] VITALS: BP 124/77
--- NOTE | 2019-01-18 17:37 | NUR ---
CASE MANAGEMENT: REVIEW 01/18/2019 SI: CHF EXACERBATION T 98.4 HR 96 RR 20 B/P 124/77 SATS 98% ON RA CR 1.4 CA 8.4 IS: NORVASC PO QD KEPPRA PO Q12HR PLAVIX PO QD PULMICORT HHN Q12HR XOPENEX HHN TID PRN MED/SURG STATUS DCP: PATIENT IS FROM HOME.
--- NOTE | 2019-01-18 19:33 | NUR ---
HAND-OFF: Report given to CHRISTOPHER Kerns.
--- NOTE | 2019-01-18 19:45 | NUR ---
NURSE NOTES: Received patient in bed, in calm mood. On RA, no SOB, no acute distress. IV on RFA intact, patent. Bed in lowest position, locked, alarms on. Call light in reach.
[2019-01-18 20:00] VITALS: BP 115/63
[2019-01-19] VITALS: BP 105/59
[2019-01-19 04:00] VITALS: BP 102/61
--- NOTE | 2019-01-19 07:28 | NUR ---
HAND-OFF: Report given to CHRISTOPHER Mccarthy.
[2019-01-19 07:31] LABS: BASOPHILS % (AUTO) 1.6 % (0.0-2.0); HEMATOCRIT 34.7 % (42.0-52.0); HEMOGLOBIN 10.5 G/DL (14.2-18.0); LYMPHOCYTES % (AUTO) 33.7 % (20.0-45.0); MEAN CORPUSCULAR VOLUME 82 FL (80-99); MONOCYTES % (AUTO) 11.8 % (1.0-10.0); NEUTROPHILS % (AUTO) 45.9 % (45.0-75.0); PLATELET COUNT 439 K/UL (150-450); RED BLOOD COUNT 4.24 M/UL (4.70-6.10); RED CELL DISTRIBUTION WIDTH 15.7 % (11.6-14.8); WHITE BLOOD COUNT 6.7 K/UL (4.8-10.8)
[2019-01-19 07:38] LABS: ANION GAP 6 mmol/L (5-15); BLOOD UREA NITROGEN 9 mg/dL (7-18); CALCIUM 8.9 MG/DL (8.5-10.1); CARBON DIOXIDE 29 MMOL/L (21-32); CHLORIDE 104 MMOL/L (98-107); CREATININE 1.4 MG/DL (0.55-1.30); POTASSIUM 4.8 MMOL/L (3.5-5.1); SODIUM 139 MMOL/L (136-145)
[2019-01-19 08:00] VITALS: BP 125/75
[2019-01-19] MEDS: Levalbuterol Inh UD 1.25mg/0.5ml HHN PRN ×2 (08:04→11:51)
[2019-01-19] MEDS: Heparin 5000 units/ml inj SUBQ SCH (09:00)
[2019-01-19] MEDS: Budesonide HHN 0.25mg/2ml ud HHN SCH (10:00)
--- NOTE | 2019-01-19 11:43 | Infectious Diseases Prog Note ---
Assessment/Plan Assessment/Plan 68 yo male with PMHx of COPD and CHF who presented to the ED on 12/21/18 with CP , SOB, N/V but no diarrhea. Sepsis- 2ry to PNA, s/p rx Leukocytosis, SP -01/12 CXR: Minimally improved but persistent bilateral basilar consolidation , left greater than right, over 7 days. Persistent right upper lobe patchy infiltrates Stable small left pleural effusion. -01/05 CXR: Left basilar infiltrate, likely pneumonia. More questionable right infrahilar infiltrate. Probable left pleural effusion. Possible mild congestive changes 01/03 u/a neg -influenza sc neg Fever, ;recurrent low grade- SP COPD Exacerbation -12/28 CXR: Slightly increasing interstitial markings bilaterally may be reflective developing mild interstitial edema or pneumonitis. Correlate clinically S/P Tx with Abx and Steroids Right ankle ulcers Do not appear to be infected. N/V - Resolved CHF HTN Hx of CAD - s/p CABG Plan - Continue to monitor off abx unless ongoing fevers, increasing WBC and/or HD instability -01/10 SP IV Vancomycin #8 -01/09 SP Cefepime #5 -01/05 SP Ceftriaxone #3 - 12/25/18 S/P Zosyn #4 -Cdiff if diarrhea -aspiration precautions -wound care Thank you for this consult. We will continue to follow the patient during this hospitalization. Subjective Allergies: Coded Allergies: EGG (Verified Allergy, Unknown, 09/28/18) MEPERIDINE (Verified Allergy, Unknown, 09/28/18) MORPHINE (Verified Allergy, Unknown, 09/28/18) NITROGLYCERIN (Verified Allergy, Unknown, hives, 09/28/18) Subjective afebrile at RA off abx discharge planning Objective Vital Signs Last 24 Hour Vital Signs Date Time Temp Pulse Resp B/P (MAP) Pulse Ox O2 Delivery O2 Flow Rate FiO2 01/19/19 09:45 Room Air 21 01/19/19 09:45 Room Air 21 01/19/19 09:21 110 125/75 01/19/19 08:30 Room Air 01/19/19 08:00 99.5 110 21 125/75 (92) 95 01/19/19 07:29 94 18 99 Room Air 21 01/19/19 07:15 90 18 92 Room Air 21 01/19/19 07:15 90 18 Room Air 21 01/19/19 07:15 Room Air 21 01/19/19 07:15 92 Room Air 01/19/19 04:00 97.7 78 18 102/61 (75) 91 01/19/19 00:00 97.5 88 18 105/59 (74) 92 01/18/19 22:00 Room Air 21 01/18/19 22:00 Room Air 21 01/18/19 21:00 Room Air 01/18/19 20:32 Room Air 21 01/18/19 20:32 Room Air 21 01/18/19 20:32 92 Room Air 21 01/18/19 20:32 Room Air 21 01/18/19 20:00 99.0 98 18 115/63 (80) 90 01/18/19 16:00 98.4 96 20 124/77 (93) 98 01/18/19 13:58 Room Air 01/18/19 13:56 Room Air 01/18/19 12:00 98.0 98 20 121/73 (89) 98 Height (Feet): 6 Height (Inches): 1.00 Weight (Pounds): 125 Objective Gen: NAD, well appearing, alert HEENT: NCAT, MMM, EOMI, PERRL, No Oral lesion, no scleral icterus NECK: full range of motion, supple, no meningismus, No LAD, No JVD LUNGS: CTAB, No W/C, No Accessory muscle use CARDS: RRR, S1, S2, No M/R/G, ABD: Soft, NT, ND, No R/G, + BS, No HSM, No Masses : Deferred Ext: right ankle with two shallow ulcers, No surrounding erythema no purulence , Pulses 2+ B/L (DP, Rad): NEURO: A/O x 4, Strength and Sensation Grossly intact PSYCH: Mood/affect normal SKIN: Warm/dry, No rashes Laboratory Tests Test 01/19/19 05:50 White Blood Count 6.7 K/UL (4.8-10.8) Red Blood Count 4.24 M/UL (4.70-6.10) L Hemoglobin 10.5 G/DL (14.2-18.0) L Hematocrit 34.7 % (42.0-52.0) L Mean Corpuscular Volume 82 FL (80-99) Mean Corpuscular Hemoglobin 24.7 PG (27.0-31.0) L Mean Corpuscular Hemoglobin Concent 30.2 G/DL (32.0-36.0) L Red Cell Distribution Width 15.7 % (11.6-14.8) H Platelet Count 439 K/UL (150-450) Mean Platelet Volume 5.5 FL (6.5-10.1) L Neutrophils (%) (Auto) 45.9 % (45.0-75.0) Lymphocytes (%) (Auto) 33.7 % (20.0-45.0) Monocytes (%) (Auto) 11.8 % (1.0-10.0) H Eosinophils (%) (Auto) 7.0 % (0.0-3.0) H Basophils (%) (Auto) 1.6 % (0.0-2.0) Sodium Level 139 MMOL/L (136-145) Potassium Level 4.8 MMOL/L (3.5-5.1) Chloride Level 104 MMOL/L (98-107) Carbon Dioxide Level 29 MMOL/L (21-32) Anion Gap 6 mmol/L (5-15) Blood Urea Nitrogen 9 mg/dL (7-18) Creatinine 1.4 MG/DL (0.55-1.30) H Estimat Glomerular Filtration Rate > 60 mL/min (>60) Glucose Level 84 MG/DL (74-106) Calcium Level 8.9 MG/DL (8.5-10.1) Current Medications Medications (Trade) Dose Ordered Sig/Aminata Route PRN Reason Start Time Stop Time Status Last Admin Dose Admin Acetaminophen (Tylenol) 650 mg Q6H PRN ORAL Mild Pain/Temp > 100.5 01/11/19 15:27 02/10/19 15:26 01/12/19 20:57 Acetylcysteine (Mucomyst) 100 mg TIDRT N 01/11/19 19:00 01/26/19 12:59 01/19/19 08:04 Amlodipine Besylate (Norvasc) 10 mg DAILY ORAL 01/12/19 09:00 01/21/19 08:59 01/19/19 09:21 Budesonide (Pulmicort) 0.25 mg Q12HRT [facility] 01/11/19 22:00 02/02/19 21:59 01/18/19 09:18 Clopidogrel Bisulfate (Plavix) 75 mg DAILY ORAL 01/12/19 09:00 01/21/19 08:59 01/19/19 09:21 Dextrose (Dextrose 50%) 25 ml Q30M PRN IV Hypoglycemia 01/11/19 15:30 01/21/19 07:29 Dextrose (Dextrose 50%) 50 ml Q30M PRN IV Hypoglycemia 01/11/19 15:30 01/21/19 07:29 Heparin Sodium (Porcine) (Heparin 5000 units/ml) 5,000 units EVERY 12 HOURS SUBQ 01/11/19 21:00 01/21/19 08:59 01/18/19 21:00 Hydromorphone HCl (Dilaudid) 3 mg Q3H PRN IVP Severe Pain (Pain Scale 7-10) 01/14/19 17:15 01/21/19 17:14 01/19/19 09:22 Levalbuterol HCl (Xopenex) 1.25 mg TIDPRN PRN HHN Shortness of Breath 01/17/19 11:00 01/22/19 10:59 01/19/19 08:04 Levetiracetam (Keppra) 250 mg Q12HR ORAL 01/11/19 21:00 01/30/19 08:59 01/19/19 09:21 Mirtazapine (Remeron) 45 mg BEDTIME ORAL 01/11/19 21:00 02/09/19 20:59 01/18/19 21:54 Ondansetron HCl (Zofran) 4 mg Q6H PRN IVP Nausea & Vomiting 01/11/19 15:30 01/21/19 15:29 Jessica Parry M.D. Jan 19, 2019 11:43
[2019-01-19 12:00] VITALS: BP 126/66
--- NOTE | 2019-01-19 12:55 | General Progress Note ---
Assessment/Plan Problem List: (1) Acute and chronic respiratory failure ICD Codes: J96.20 - Acute and chronic respiratory failure, unspecified whether with hypoxia or hypercapnia SNOMED: 24107082 (2) Chest pain ICD Codes: R07.9 - Chest pain, unspecified SNOMED: 52813399 Qualifiers: Qualified Codes: R07.9 - Chest pain, unspecified (3) HTN (hypertension) ICD Codes: I10 - Hypertension SNOMED: 10497446 (4) COPD exacerbation ICD Codes: J44.1 - Obstructive chronic bronchitis with exacerbation SNOMED: 341264049 (5) Acute CHF (congestive heart failure) ICD Codes: I50.9 - Heart failure, unspecified SNOMED: 64100024 Qualifiers: Qualified Codes: I50.9 - Heart failure, unspecified Status: unchanged Assessment/Plan o2 pulmt x pt diet cbc bmp am dc to snf if clear Subjective Constitutional: Reports: weakness Allergies: Coded Allergies: EGG (Verified Allergy, Unknown, 09/28/18) MEPERIDINE (Verified Allergy, Unknown, 09/28/18) MORPHINE (Verified Allergy, Unknown, 09/28/18) NITROGLYCERIN (Verified Allergy, Unknown, hives, 09/28/18) All Systems: reviewed and negative except above Subjective o2nc sleepy in bed Objective Last 24 Hour Vital Signs Date Time Temp Pulse Resp B/P (MAP) Pulse Ox O2 Delivery O2 Flow Rate FiO2 01/19/19 09:45 Room Air 01/19/19 09:45 Room Air 01/19/19 09:21 110 125/75 01/19/19 08:30 Room Air 01/19/19 08:00 99.5 110 21 125/75 (92) 95 01/19/19 07:29 94 18 99 Room Air 01/19/19 07:15 90 18 92 Room Air 01/19/19 07:15 90 18 Room Air 21 01/19/19 07:15 Room Air 21 01/19/19 07:15 92 Room Air 01/19/19 04:00 97.7 78 18 102/61 (75) 91 01/19/19 00:00 97.5 88 18 105/59 (74) 92 01/18/19 22:00 Room Air 21 01/18/19 22:00 Room Air 21 01/18/19 21:00 Room Air 01/18/19 20:32 Room Air 21 01/18/19 20:32 Room Air 21 01/18/19 20:32 92 Room Air 21 01/18/19 20:32 Room Air 21 01/18/19 20:00 99.0 98 18 115/63 (80) 90 01/18/19 16:00 98.4 96 20 124/77 (93) 98 01/18/19 13:58 Room Air 01/18/19 13:56 Room Air Intake and Output 01/18/19 01/19/19 19:00 07:00 Intake Total 1200 ml 100 ml Output Total 150 ml Balance 1200 ml -50 ml Intake Oral 1200 ml 100 ml Output Urine Total 150 ml # Voids 8 Laboratory Tests 01/19/19 05:50: White Blood Count 6.7, Red Blood Count 4.24L, Hemoglobin 10.5L, Hematocrit 34.7L , Mean Corpuscular Volume 82, Mean Corpuscular Hemoglobin 24.7L, Mean Corpuscular Hemoglobin Concent 30.2L, Red Cell Distribution Width 15.7H, Platelet Count 439, Mean Platelet Volume 5.5L, Neutrophils (%) (Auto) 45.9, Lymphocytes (%) (Auto) 33.7, Monocytes (%) (Auto) 11.8H, Eosinophils (%) (Auto) 7.0H, Basophils (%) (Auto) 1.6, Sodium Level 139, Potassium Level 4.8, Chloride Level 104, Carbon Dioxide Level 29, Anion Gap 6, Blood Urea Nitrogen 9, Creatinine 1.4H, Estimat Glomerular Filtration Rate > 60, Glucose Level 84, Calcium Level 8.9 Height (Feet): 6 Height (Inches): 1.00 Weight (Pounds): 125 General Appearance: lethargic EENT: normal ENT inspection Neck: normal alignment Cardiovascular: normal peripheral pulses, normal rate, regular rhythm Respiratory/Chest: chest wall non-tender, lungs clear, normal breath sounds Abdomen: normal bowel sounds, non tender, soft Extremities: normal inspection Edema: no edema noted Arm (L), no edema noted Arm (R), no edema noted Leg (L), no edema noted Leg (R), no edema noted Pedal (L), no edema noted Pedal (R), no edema noted Generalized Neurologic: responsive, motor weakness Skin: normal pigmentation, warm/dry Tracey,Fabio Chi-Gina DO Jan 19, 2019 12:55
--- NOTE | 2019-01-19 13:39 | NUR ---
RD ASSESSMENT & RECOMMENDATIONS SEE CARE ACTIVITY FOR COMPLETE ASSESSMENT DAILY ESTIMATED NEEDS: Needs based on wound, underweight/ 59kg 30-35 kcals/kg 8686-8533 total kcals 1.25-1.5 g protein/kg 74-89g g total protein 25-30 mL/kg 8551-1270 total fluid mLs NUTRITION DIAGNOSIS: 1) Increased kcal and protein needs R/T wound healing and for wt gain as evidenced by h/o right ankle chronic open wound, pt is est 71% IBW w/ underweight BMI per guidelines, currently w/ poor po intake.(UPDATED) 2) Altered nutrition related lab values R/T clinical condition, CHF as evidenced by elev K (5.4-> now wnl), elev BNP (1046-> 558). CURRENT DIET:REGULAR PO DIET RECOMMENDATIONS: W/ poor po: REGULAR DIET + double Protein portions/ texture as tolerated ADDITIONAL RECOMMENDATIONS: - RE-calibrate bed scale for accurate CBW - Weekly wt monitoring given underweight status - Snacks TID in between meals + Ensure Enlive TID w/ meals - Wound healing: MVI w/ min x 1, Vit C 500mg QD, Nilson 1pkt BID - Monitor K, need for diet restriction - Monitor BGs closely while solumedrol- now off (bg wnl) * CONSULT RD IF NON ORAL FEEDS ARE PART OF POC D/T POOR PO *
--- NOTE | 2019-01-19 14:22 | NUR ---
ST NOTE: BEDSIDE SWALLOW EVAL RECEIVED BEDSIDE SWALLOW EVAL ORDER CHART REVIEWED PRIOR THE EVALUATION PT IS A 68-YEAR-OLD MALE WHO WAS ADMITTED DUE TO CHF AND CHEST PAIN. DYSPHAGIA RISK FACTORS: COPD, GERD, ACUTE BRONCHITIS, PNA, HTN, SEIZURE, H/O OPEN HEART SURGERY, H/O CABG PER CXR ON 01/12/19: Impression: Minimally improved but persistent bilateral basilar consolidation, left greater than right, over 7 days. Persistent right upper lobe patchy infiltrates Stable small left pleural effusion. PT IS ON KEPPRA AND REMERON. PLOF: PT RESIDES AT HOME. CURRENT STATUS: PT SEEN AT BEDSIDE IN PM. ALERT AND COOPERATIVE, FOLLOWS DIRECTIONS. PER PT, HAS EXPERIENCED SOME SWALLOWING DIFFICUTLY WHEN HE WAS AT HOME, ESPECIALLY IN THE MORNING. CURRENTLY, DENIED ANY SWALLOWING DIFFICULTY. PT IS ON REGULAR DIET WITH THIN LIQUIDS. PER PT, DECREASED APPETITE. GIVEN PO TRIALS: THIN(CUP-SELF),PUREE(TSP) AND CRACKER. INITIAL IMPRESSION: MISSING UPPER AND LOWER MOLAR TEETH. SLOW MASTICATION TIME DUE TO MISSING LOWER AND UPPER TEETH. ROTARY CHEW WAS NOTED. MILD INCREASED ORAL TRANSIT TIME AND OROPHARYNGEAL TRANSIT TIME FAIR TO GOOD LARYNGEAL ELEVATION, NO OVERT S/S OF ASPIRATION. DUE TO PT HAS H/O COPD, ACUTE BRONCHITIS AND PNA, PT HAS SOME RISK FOR ASPIRATION. RECOMMENDATIONS: 1. CHANGED DIET TO REGULAR SOFT, EASY CHEW WITH THIN LIQUIDS 2. ASPIRATION/REFLUX PRECAUTIONS WITH SUPERVISION. 3. SKILLED ST SERVICE TO FOLLOW UP(IF VIDEOSWALLOW STUDY IS NEEDED) 4. REFER PT TO REMEDIAL MASSEUR AT DISCHARGE FACILITY TO FOLLOW WHEN D/C D/W PT, DAYNA WHITE AND THE STAFF.
--- NOTE | 2019-01-19 14:30 | Pulmonology Progress Note ---
Assessment/Plan Problems: (1) Nosocomial pneumonia (2) COPD exacerbation (3) Acute bronchitis (4) Hypothyroidism (5) CAD (coronary artery disease) (6) Severe protein-calorie malnutrition (7) Chronic ulcer of right leg Assessment/Plan all reviewed in better mood no new complains feeling better but lower than yesterday no new complains renal f/u respiratory treatment wound care doing better all reviewed Subjective ROS Limited/Unobtainable: No Constitutional: Reports: no symptoms HEENT: Repors: no symptoms Respiratory: Reports: no symptoms Allergies: Coded Allergies: EGG (Verified Allergy, Unknown, 09/28/18) MEPERIDINE (Verified Allergy, Unknown, 09/28/18) MORPHINE (Verified Allergy, Unknown, 09/28/18) NITROGLYCERIN (Verified Allergy, Unknown, hives, 09/28/18) Objective Last 24 Hour Vital Signs Date Time Temp Pulse Resp B/P (MAP) Pulse Ox O2 Delivery O2 Flow Rate FiO2 01/19/19 13:32 90 18 100 Room Air 01/19/19 13:09 84 16 94 Room Air 01/19/19 09:45 Room Air 01/19/19 09:45 Room Air 01/19/19 09:21 110 125/75 01/19/19 08:30 Room Air 01/19/19 08:00 99.5 110 21 125/75 (92) 95 01/19/19 07:29 94 18 99 Room Air 01/19/19 07:15 90 18 92 Room Air 01/19/19 07:15 90 18 Room Air 01/19/19 07:15 Room Air 01/19/19 07:15 92 Room Air 01/19/19 04:00 97.7 78 18 102/61 (75) 91 01/19/19 00:00 97.5 88 18 105/59 (74) 92 01/18/19 22:00 Room Air 21 01/18/19 22:00 Room Air 21 01/18/19 21:00 Room Air 01/18/19 20:32 Room Air 21 01/18/19 20:32 Room Air 21 01/18/19 20:32 92 Room Air 21 01/18/19 20:32 Room Air 21 01/18/19 20:00 99.0 98 18 115/63 (80) 90 01/18/19 16:00 98.4 96 20 124/77 (93) 98 Intake and Output 01/18/19 01/19/19 19:00 07:00 Intake Total 1200 ml 100 ml Output Total 150 ml Balance 1200 ml -50 ml Intake Oral 1200 ml 100 ml Output Urine Total 150 ml # Voids 8 Objective General Appearance: cachectic HEENT: normocephalic Respiratory/Chest: chest wall non-tender, lungs clear, decrease breath sounds Cardiovascular: normal peripheral pulses, normal rate Abdomen: normal bowel sounds, soft, non tender Extremities: no cyanosis Skin: no rash Laboratory Tests 01/19/19 05:50: White Blood Count 6.7, Red Blood Count 4.24L, Hemoglobin 10.5L, Hematocrit 34.7L , Mean Corpuscular Volume 82, Mean Corpuscular Hemoglobin 24.7L, Mean Corpuscular Hemoglobin Concent 30.2L, Red Cell Distribution Width 15.7H, Platelet Count 439, Mean Platelet Volume 5.5L, Neutrophils (%) (Auto) 45.9, Lymphocytes (%) (Auto) 33.7, Monocytes (%) (Auto) 11.8H, Eosinophils (%) (Auto) 7.0H, Basophils (%) (Auto) 1.6, Sodium Level 139, Potassium Level 4.8, Chloride Level 104, Carbon Dioxide Level 29, Anion Gap 6, Blood Urea Nitrogen 9, Creatinine 1.4H, Estimat Glomerular Filtration Rate > 60, Glucose Level 84, Calcium Level 8.9 Current Medications Medications (Trade) Dose Ordered Sig/Aminata Route PRN Reason Start Time Stop Time Status Last Admin Dose Admin Acetaminophen (Tylenol) 650 mg Q6H PRN ORAL Mild Pain/Temp > 100.5 01/11/19 15:27 02/10/19 15:26 01/12/19 20:57 Acetylcysteine (Mucomyst) 100 mg TIDRT N 01/11/19 19:00 01/26/19 12:59 01/19/19 11:51 Amlodipine Besylate (Norvasc) 10 mg DAILY ORAL 01/12/19 09:00 01/21/19 08:59 01/19/19 09:21 Budesonide (Pulmicort) 0.25 mg Q12HRT N 01/11/19 22:00 02/02/19 21:59 01/18/19 09:18 Clopidogrel Bisulfate (Plavix) 75 mg DAILY ORAL 01/12/19 09:00 01/21/19 08:59 01/19/19 09:21 Dextrose (Dextrose 50%) 25 ml Q30M PRN IV Hypoglycemia 01/11/19 15:30 01/21/19 07:29 Dextrose (Dextrose 50%) 50 ml Q30M PRN IV Hypoglycemia 01/11/19 15:30 01/21/19 07:29 Heparin Sodium (Porcine) (Heparin 5000 units/ml) 5,000 units EVERY 12 HOURS SUBQ 01/11/19 21:00 01/21/19 08:59 01/18/19 21:00 Hydromorphone HCl (Dilaudid) 3 mg Q3H PRN IVP Severe Pain (Pain Scale 7-10) 01/14/19 17:15 01/21/19 17:14 01/19/19 13:17 Levalbuterol HCl (Xopenex) 1.25 mg TIDPRN PRN HHN Shortness of Breath 01/17/19 11:00 01/22/19 10:59 01/19/19 11:51 Levetiracetam (Keppra) 250 mg Q12HR ORAL 01/11/19 21:00 01/30/19 08:59 01/19/19 09:21 Mirtazapine (Remeron) 45 mg BEDTIME ORAL 01/11/19 21:00 02/09/19 20:59 01/18/19 21:54 Ondansetron HCl (Zofran) 4 mg Q6H PRN IVP Nausea & Vomiting 01/11/19 15:30 01/21/19 15:29 Jessie Magana MD Jan 19, 2019 14:30
--- NOTE | 2019-01-19 15:14 | NUR ---
NURSE NOTES: Patient received this am. Patient reports pain on right ankle 8/10. Patient received pain medication early AM. Patient is on 2 liters oxygen via nasal cannula. Bed is locked, in lowest position, and call light is within reach. Will continue to monitor.
[2019-01-19 16:00] VITALS: BP 151/97
--- NOTE | 2019-01-19 17:30 | NUR ---
HARDWARE PRESS OPERATOR NOTES PT ACCEPTED TO [facility]. NURSE TO GIVE REPORT TO [phone]. [facility] TO TRANSPORT PT WITH ETA OF [id number].
--- NOTE | 2019-01-19 19:33 | NUR ---
HAND-OFF: Report given to CHRISTOPHER Rowe. [facility] Report given to Gaurav at facility.
[2019-01-19 20:00] VITALS: BP 141/79
--- NOTE | 2019-01-19 20:50 | NUR ---
NURSE NOTES: Patient picked up by [facility] discharged to [facility] in stable condition. Pt has multiple baggages, pt refused to go through each one of them. Reading glass, black wallet, computer monitor, all belonging taken by patient accompanied by ambulance personnel.
--- NOTE | 2019-01-20 10:00 | Discharge Summary ---
Discharge Summary Discharge Summary _ DATE OF ADMISSION: 12/22/2018 DATE OF DISCHARGE: 01/19/2019 DISCHARGED BY: Dr. Tracey REASON FOR ADMISSION: 68 years old male with past medical history of hypertension, coronary artery disease, status post CABG, COPD, CHF, chronic chest pain hypothyroidism, seizure disorder, chronic right leg ulcer, status post treatment for osteomyelitis, presented to emergency department with complaint of shortness of breath and chest pain for 2 days. Patient reported nonproductive cough and congestion. Patient reported subjective fever and chills. Pain in the mid chest without radiation , 10 out of 10 on a scale 1-10. Symptoms worsened with exertion and improved with rest. Patient denied nausea, vomiting. Upon evaluation patient had low-grade fever 100.6 and was tachycardic. Pulse oximetry was 91% on 2 L of oxygen via nasal cannula . Laboratory workup revealed no leukocytosis, stable hemoglobin and hematocrit. Chemistry revealed potassium 5.4, sodium 134. BUN 23 ,creatinine 1.4. Troponin was negative. EKG revealed sinus tachycardia , no acute ischemic changes. Pro BNP 1046. Urinalysis revealed +2 protein , but no evidence of urinary tract infection. Chest x-ray demonstrated changes consistent with COPD, no acute ischemic changes . Patient was admitted for further management CONSULTANTS: manager construction Dr. Anaya pulmonary Dr. Magana ID specialist Dr. Reich caser in Dr. Briones psychiatrist [facility]SE: Patient initially admitted to telemetry floor. Supplemental oxygen provided as needed to keep pulse oximetry above 92%. Pulmonary toilet provided with bronchodilator as needed. Sputum culture was negative. Patient started on the IV steroids with gradual tapering down. Trial of theophylline instituted. Antitussive provided as needed. Mucomyst provided via hand-held nebulizing. CT of the chest revealed no acute process, but showed extensive COPD changes , old right hilar granulomatous cassy calcification, and scattered area of likely postinflammatory changes . Previously demonstrated left lower lobe lesion was no longer evident/resolved. T9 vertebral body mild wedge compression fracture deformity with undetermined age, new since 2010. There was no comments about started him on the CT of the chest. Chest X-ray revealed on 12/28 4 developing mild interstitial edema versus pneumonitis. Patient demonstrated leukocytosis and intermittent fevers. Patient was started on treatment for presumed pneumonia. Patient was followed-up with chest x-ray. Chest x-ray on 01/05 showed left basilar infiltrate, likely pneumonia . Follow-up chest x-ray revealed minimally but improved though persistent bilateral basilar consolidation left greater than right ,persistent right upper lobe patchy infiltrates. Blood cultures were negative. Sputum culture was negative. Urine culture revealed mixed gram-positive organism . Influenza screen test was negative. Patient completed course of antibiotics. Leukocytosis resolved. Fever resolved. Per infectious disease recommendations, observe patient off antibiotic, unless ongoing fever, leukocytosis and. or hemodynamic instability. Patient was monitored off antibiotic and appeared to be stable . Medical Assistant followed. Antiplatelet therapy with Plavix was resumed. Blood pressure was managed with calcium channel rasta and QUINTEN inhibitor. Patient was unable to see cardiothoracic surgeon at [facility] as recommended on prior admission for removal of sternal wires. Patient will need to follow up with surgeon for removal of sternal wires. Echocardiogram revealed ejection fraction 55-60% with mild left ventricular hypertrophy. No evidence of wall motion abnormality. Right ventricular systolic pressure of 49 consistent with moderate pulmonary hypertension . Patient had extensive previous workup for chest pain, which was as negative. Pain management was addressed. DVT prophylaxis provided. Per speech therapist patient had some risk for aspiration given , acute bronchitis , pneumonia and COPD . Diet texture provided as per speech therapist recommendations with strict aspiration /reflux precautions. Dietary recommendations regarding protein supplements implemented in plan of care. Patient was working with physical therapist. Fall precautions were maintained. Renal parameters and electrolytes were closely monitored, electrolytes corrected as needed. Nephrotoxins were avoided. Renal ultrasound was negative for hydronephrosis. Fraud Representative closely followed. Seizure precaution maintained. Keppra continued. No evidence of seizure activity while in the hospital. Synthroid was continued. Wound care provided for left leg wound. No evidence of infection. Psychiatrist followed. Patient started on Remeron. Reality orientation supportive therapy provided. Placement was arranged to acute rehabilitation unit at [facility] for further rehabilitation. Patient was stable for transfer. FINAL DIAGNOSES: Sepsis secondary to pneumonia Pneumonia, status post treatment COPD exacerbation -resolved Acute bronchitis Acute renal failure on chronic kidney disease Hyperkalemia Visible foreign body in the left sternal area , consistent with sternal wires Chronic chest pain Hypertension Coronary artery disease with history of CABG Severe protein calorie malnutrition Chronic right leg ulcer with history of osteomyelitis, status post treatment Hypothyroidism Seizure disorder Major depressive disorder DISCHARGE MEDICATIONS: See Medication Reconciliation list. DISCHARGE INSTRUCTIONS: Patient was discharged to acute rehabilitation unit at [facility]. Follow-up with medical doctor at the facility. Kristine Black NP Jan 20, 2019 10:00
--- NOTE | 2019-01-20 16:50 | NUR ---
*-*INSURANCE *-* UPDATED CLINICALS HAVE BEEN FAXED TO: [facility] NCM: MARQUES MURRAY P- [phone] F- [phone]
== END 2019-01-19 20:50 | disposition short-term general hospital (02) | DRG 140 ==
LOC: EMR 21:40 → 2W 12-22 00:01 → EDBEDREQSVC 12-22 00:09 → EDBEDREQ 12-22 00:09 → 2W 12-22 05:40 → 2E 12-22 16:13 → 4E 12-30 23:30 → 2E 01-03 13:06 → 4E 01-11 14:59
DX: J44.1 Chronic obstructive pulmonary disease with (acute) exacerbation (principal); J96.20 Acute and chronic respiratory failure, unspecified whether with hypoxia or hypercapnia; N17.0 Acute kidney failure with tubular necrosis; E43 Unspecified severe protein-calorie malnutrition; A41.9 Sepsis, unspecified organism; E87.5 Hyperkalemia; M86.9 Osteomyelitis, unspecified; I13.0 Hypertensive heart and chronic kidney disease with heart failure and stage 1 through stage 4 chronic kidney disease, or unspecified chronic kidney disease; J44.0 Chronic obstructive pulmonary disease with (acute) lower respiratory infection; J18.9 Pneumonia, unspecified organism; I50.9 Heart failure, unspecified; J20.9 Acute bronchitis, unspecified; Y95 Nosocomial condition; N18.9 Chronic kidney disease, unspecified; I25.10 Atherosclerotic heart disease of native coronary artery without angina pectoris; Z95.1 Presence of aortocoronary bypass graft; E03.9 Hypothyroidism, unspecified; Z68.1 Body mass index [BMI] 19.9 or less, adult; F33.9 Major depressive disorder, recurrent, unspecified; R00.0 Tachycardia, unspecified; R07.9 Chest pain, unspecified; R11.2 Nausea with vomiting, unspecified; I73.9 Peripheral vascular disease, unspecified; L97.919 Non-pressure chronic ulcer of unspecified part of right lower leg with unspecified severity; G40.909 Epilepsy, unspecified, not intractable, without status epilepticus
CPT/HCPCS: 36415; 71045; 71250; 76770; 80048; 80053; 80198; 80202; 80299; 81001; 81003; 82043; 82550; 82553; 82570; 82962; 83735; 83880; 84100; 84300; 84484; 85025; 85610; 85651; 85730; 86140; 86710; 87040; 87070; 87086; 87205; 89050; 93005; 93306; 93970; 94640; 94660; 94664; 94760; 96365; 96375; 96376; 99291; J7620